=== PATIENT | male | born 1955 | race Caucasian/White ===

== ENCOUNTER 2016-05-04 00:40 | Emergency (ER) | payer MEDICAID ==
--- NOTE | 2016-05-04 01:42 | ED ---
demian Murphy Timothy, scribed for Prasanna Sharma MD on 05/04/16 at 0050 . GI/ HPI - HPI Summary HPI Summary: Franklyn Shafer is a 60 yo male presenting to [facility] with blood in his urine and 9/ 10 pain in his bladder radiating through his abdomen for the past 3 days. He was BIBA from [facility]. He states that his suprapubic region has become "hard" and painful. He states he has a Hx of bad UTI's, but claims that this time there is no burning feeling. His MHx includes kidney failure, venous insufficiency, depression, left kidney stone, hypoglycemia, toe amputations, obesity, pacemaker, hypercarbic respiratory failure, PE. - History of Current Complaint Time Seen by Provider: 05/04/16 00:42 Stated Complaint: ABD PAIN Hx Obtained From: Patient Onset/Duration: Started Days Ago Timing: Constant, Lasting Days Severity: Moderate Current Severity: Moderate Pain Intensity: 9 Location of Pain: Suprapubic Associated Signs and Symptoms: Positive: Hematuria, Abdominal Pain - Additional Pertinent History Primary Care Physician: BERNADETTE - Allergy/Home Medications Allergies/Adverse Reactions: Allergies Allergy/AdvReac Type Severity Reaction Status Date / Time Apple Allergy Unknown Unknown Verified 12/30/15 09:43 Reaction Details Bee Venom Allergy Unknown Verified 01/01/16 12:20 Reaction Details Black [place] Flavor Allergy Unknown Verified 01/01/16 12:20 Reaction Details Sulfa Antibiotics Allergy Rash Verified 12/30/15 09:43 Vancomycin Allergy Pain Verified 12/30/15 09:43 walnut Allergy Unknown Unknown Uncoded 12/30/15 09:43 Reaction Details bee sting Allergy Unknown Uncoded 12/30/15 09:43 Reaction Details Home Medications: Home Medications Ranitidine HCl 150 mg PO BID 05/04/16 [History Confirmed 05/04/16] PMH/Surg Hx/FS Hx/Imm Hx Endocrine/Hematology History: Reports: Hx Anticoagulant Therapy - xarelto, Hx Anemia Denies: Hx Diabetes - hypoglycemic, Hx Systemic Lupus Erythematosus Cardiovascular History: Reports: Hx Congestive Heart Failure - diastolic, Hx Coronary Artery Disease, Hx Deep Vein Thrombosis, Hx Embolism - pulmonary embolism, takes xarelto, Hx Hypercholesterolemia, Hx Hypertension, Hx Pacemaker/ ICD, Hx Peripheral Vascular Disease - SSS, Hx Syncope, Other Cardiovascular Problems/Disorders - cardiac cath Respiratory History: Reports: Hx Chronic Obstructive Pulmonary Disease (COPD), Hx Pneumonia, Hx Pulmonary Embolism, Hx Sleep Apnea, Other Respiratory Problems/ Disorders - SLEEP APNEA, ON 2 L O2 @ NIGHT, obesity hypoventilation GI History: Reports: Other GI Disorders - umbilical hernia, stool softener at home, constipation History: Reports: Hx Acute Renal Failure, Hx Kidney Stones, Hx Renal Disease - 3 episodes of renal failure Denies: Hx Dialysis Musculoskeletal History: Reports: Hx Arthritis, Hx Back Problems, Other Musculoskeletal History - bilateral metatarsal amputation Denies: Hx Rheumatoid Arthritis Sensory History: Reports: Hx Contacts or Glasses - [place] [facility] [place] Other Sensory Impairments - Neuropathy in feet Denies: Hx Hearing Aid Opthamlomology History: Reports: Hx Contacts or Glasses - [place] [facility] [place] Other Sensory Impairments - Neuropathy in feet Neurological History: Reports: Hx Headaches, Other Neuro Impairments/Disorders - frequent syncope, pt states possible stroke in past Psychiatric History: Reports: Hx Depression Denies: Hx of Violent Episodes Against Others - Cancer History Hx Chemotherapy: No - Surgical History Surgery Procedure, Year, and Place: Bilateral metatarsal amputations Hx Anesthesia Reactions: No - Immunization History Date of Tetanus Vaccine: PT STATES UNSURE Date of Influenza Vaccine: NONE Infectious Disease History: No Infectious Disease History: Reports: Hx of Known/Suspected MRSA Denies: Traveled Outside the [place] in Last 30 Days - Family History Known Family History: Positive: Diabetes Negative: Other - denies FHx of depression - Social History Alcohol Use: None Substance Use Type: Reports: None Substance Use Comment - Amount & Last Used: chronic narcotic use Hx Tobacco Use: No Smoking Status (MU): Never Smoked Tobacco Have You Smoked in the Last Year: No Review of Systems Constitutional: Negative Eyes: Negative ENT: Negative Cardiovascular: Negative Respiratory: Negative Positive: Abdominal Pain Positive: hematuria. Negative: burning Musculoskeletal: Negative Skin: Negative Neurological: Negative Psychological: Normal All Other Systems Reviewed And Are Negative: Yes Physical Exam Triage Information Reviewed: Yes Vital Signs On Initial Exam: Initial Vitals Temp Pulse Resp BP Pulse Ox 98.4 F 61 20 117/64 96 05/04/16 00:42 05/04/16 00:42 05/04/16 00:42 05/04/16 00:42 05/04/16 00:42 Vital Signs Reviewed: Yes Appearance: Positive: Ill-Appearing, Obese - supra morbid Skin: Positive: Warm Head/Face: Positive: Normal Head/Face Inspection Eyes: Positive: ELENA ENT: Positive: Hearing grossly normal Respiratory/Lung Sounds: Positive: Breath Sounds Present Cardiovascular: Positive: RRR Abdomen Description: Positive: Other: - massively obese, difficult to assess Bowel Sounds: Positive: Present Neurological: Positive: Alert, Oriented to Person Place, Time Diagnostics - Vital Signs Vital Signs Temp Pulse Resp BP Pulse Ox 05/04/16 00:42 98.4 F 61 20 117/64 96 - Laboratory Result Diagrams: 05/04/16 01:35 05/04/16 01:35 Lab Statement: Any lab studies that have been ordered have been reviewed, and results considered in the medical decision making process. - CT A/P CT Interpretation: Positive (See Comments) - Evaluation is limited due to photon starvation from paiteny body habitus. Nonspecific hepatosplenomegaly. Cholelithiasis with calcified gallstonees seen within the gallbladder neck. If there is concern for cholecystitis, recommend follow up with ultrasound as clinically indicated. No intra or extrahepatic ductal dilation. Diffuse atrophy of the pancreas with fatty replacement. Evaluation for mild pancreatitis is limited due to aforementioned study limitations. No definitive evidence of peripancreatic fluid collection. Punctate hyperdense focus seen in the pancreatic tail region (axial series there is 20 which may be artifactual or reflect pancreatic calcification). Nephrolithiasis. There is a 11.4 mm calculus in the proximal left ureter with assocated mild tomoderate hydronephrosis. Punctate right renal calculi. No right renal calculus. No evidence of bowel obstruction or pneumoperitoneum. Diverticulosis. Underdistension of versus wall thickening of mild to distal sigmoid colon. Correlate clinically to exclude diverticulitis/mild colitis. Normal appendix. No abscess. Fat-containing umbilical hernia. No large inguinal hernia. No ascites. Arthosis of the spine, bilateral sacroiliac chest and bilateral hips. Urinary bladder is decompressed limiting assessment. CT Interpretation Completed By: Radiologist Re-Evaluation - Re-Evaluation First Eval Re-Evaluation Time: 02:17 Change: Unchanged Comment: Discussed results with Pt. Second Eval Re-Evaluation Time: 06:13 Comment: d/w dr ovalle felt pt too high risk for surgery here, call to [facility] on diversion, d/w tiffanie Dr Villafana who will accept pt GIGU Course/Dx - Course Assessment/Plan: Franklyn Shafer is a 60 yo obese male presenting to [facility] with 9/ 10 abd pain and hematuria. After CT scan (see documentation) and review of lab work, as well as discussion with Dr. Ovalle and Dr. Izaguirre, he will be transferred to [facility] for further evaluation and treatment. - Diagnoses Provider Diagnoses: Calculus of left kidney - Physician Notifications Discussed Care Of Patient With: 0557 - Dr. Ovalle (Urology) - Discussed Pt condition, recommends transfer to higher level of care facility as Pt is high risk due to his weight. 06 - Dr. Izaguirre (urology) - Discussed Pt condition given his weight, will call back. 06 - Dr. Uribe (hospitalist) - Discussed Pt condition and weight, will admit Pt. Instructed by Provider To: Transfer - Critical Care Time Critical Care Time: 30-74 min Discharge - Discharge Plan Condition: Fair Disposition: TRANS HIGHER L OF CARE FAC Discharge Disposition Comment: Pt is high risk due to his weight, [place] is closest available facility Referrals: Kwabena Morrison [Primary Care Provider] - The documentation as recorded by the demian parham Timothy accurately reflects the service I personally performed and the decisions made by me, Prasanna Sharma MD.
[2016-05-04 01:49] LABS: Hematocrit 39 % (42-52); Hemoglobin 12.3 g/dl (14.0-18.0); Mean Corpuscular HGB Conc 32 g/dl (31-36); Mean Corpuscular Hemoglobin 26 pg (27-31); Mean Corpuscular Volume 83 fL (80-94); Mean Platelet Volume 10 um3 (7.4-10.4); Red Blood Count 4.72 10^6/ul (4.0-5.4); Red Cell Distribution Width 17 % (10.5-15); White Blood Count 7.2 10^3/ul (3.5-10.8)
[2016-05-04] MEDS ORDERED: Ketorolac INJ* 30 MG/ML 1 ML VIAL IV PUSH ONE (01:55)
[2016-05-04 01:58] LABS: Urine Bacteria Absent (Absent); Urine Bilirubin Negative (Negative); Urine Glucose Negative (Negative); Urine Nitrite Negative (Negative)
[2016-05-04 02:11] LABS: Albumin 3.6 g/dL (3.2-5.2); BUN/Creatinine Ratio 35.2 (8-20); Calcium 9.9 mg/dL (8.6-10.3); EGFR African American 77.9 (>60); EGFR Non-African American 60.6 (>60); Globulin 4.5 g/dL (2-4); Potassium 3.1 mmol/L (3.5-5.0); Total Bilirubin 0.9 mg/dL (0.2-1.0); Total Protein 8.1 g/dL (6.4-8.9)
[2016-05-04] MEDS: Ketorolac INJ* 30 MG/ML 1 ML VIAL IV PUSH ONE ×2 (02:15→02:18)
[2016-05-04] MEDS ORDERED: Potassium Chloride LIQUID* 20 MEQ PACKET PO ONE ×2 (02:16)
[2016-05-04] MEDS ORDERED: HYDROmorphone INJ* 1 MG/ML CARPUJECT SYRINGE IV SLOW PU ONE ×4 (03:26→05:53)
[2016-05-04] MEDS ORDERED: Iohexol 300* (CONTRAST) 10 ML SDV IV ONE ×2 (04:30)
[2016-05-04] MEDS ORDERED: oxyCODONE/Acetamin 5/325 MG* TAB PO ONE ×3 (07:28→13:42)
[2016-05-04] MEDS ORDERED: NS 0.9% 1000 ML* 1,000 ML IV ONE (08:20)
--- NOTE | 2016-05-04 08:22 | RAD ---
CLINICAL HISTORY: Abdominal pain and hematuria COMPARISON: Similar CT examination dated November 03, 2014 TECHNIQUE: Contrast enhanced CT examination of the abdomen and pelvis from the lung bases through the initial tuberosities. The patient received 150 mL Omnipaque 300 intravenously prior to imaging.The patient received oral contrast as well prior to imaging. FINDINGS: Evaluation is limited due to the patient's morbid obesity. The abdomen is in contact with the gantry which creates streak artifact along the periphery obscuring evaluation of much of the subcutaneous tissue and the most superficial portions of the lateral abdominal bob. VISUALIZED LUNG BASES: The visualized lung bases are grossly clear. There is no pleural effusion. ABDOMEN AND PELVIS: Similar to previous CT examinations the liver is homogenously hypodense relative to the spleen. There are no suspicious masses or surface irregularity. The homogenously attenuating spleen is enlarged measuring just under 17 cm in greatest axial dimension, slightly increased when compared to the November 03, 2014 CT examination. The pancreas and adrenal glands are grossly normal in appearance. The gallbladder is normal. The right kidney is in appearance without focal mass, calcification or signs of hydronephrosis. At the left ureteropelvic junction there is a calcification measuring 14 mm and greatest cephalocaudal projection in the coronal plane. There is a lower pole collecting system calcification measuring 11 mm in greatest dimension. No calcification identified more distally in either ureter or in the urinary bladder. The oral contrast has progressed as far as the midportion of the small bowel. This limits evaluation of the more distal small bowel and colon. The small and large bowel are not distended. The patient's normal appendix is identified in the right lower quadrant (coronal image 71). Scattered rectosigmoid diverticula are seen but none exhibit acute inflammatory change. There is no gross retroperitoneal or mesenteric lymphadenopathy. The pelvic viscera is normal in appearance. The mildly calcified abdominal aorta and iliac arteries are normal in course and diameter. Degenerative changes include multilevel loss of intervertebral disc height involving the lower thoracic and lumbar spine.There are no sinister bone lesions. IMPRESSION: 1. There is a 14 mm calcification at the left ureteropelvic junction with mild ipsilateral hydronephrosis in addition to an 11 mm calcification at the left lower pole collecting system. 2. CT findings are consistent with hepatic steatosis. 3. Interval worsening of splenomegaly. 4. Additional chronic and degenerative findings as described in the body of the report.
[2016-05-04] MEDS ORDERED: Ciprofloxacin 400MG IVPREMIX(* 400 MG/200 ML BAG IVPB ONE (10:57)
[2016-05-04] MEDS ORDERED: cefTRIAXone(*) 2 GM in NS 0.9% 100 ML* 100 ML IVPB ONE ×4 (10:59)
[2016-05-04 13:08] VITALS: BP 120/66
[2016-05-04] MEDS ORDERED: oxyCODONE/Acetamin 5/325 MG* TAB ONE ×2 (13:44)
--- NOTE | 2016-07-03 07:55 | ED ---
Marcelino Murphy Soohyun, scribed for Krystian Farmer MD on 05/04/16 at 1101 . Progress - Progress Note Progress Note: This 60 y/o male pt has been signed out to me at shift change. Course/Dx - Diagnoses Provider Diagnoses: Calculus of left kidney, OBSTRUCTIVE URTERAL STONE - Provider Notifications Discussed Care Of Patient With: 1053 AM Urologist PA at [facility] -- will discuss with their attending and will get back to us. 1143 AM Urologist attending declined the transfer, stating that if Dr. Ovalle is uncomfortable treating the pt, so are they. The transfer destination was chosen as [facility] as originally planned by Dr. Sharma. Instructed by Provider To: Transfer - [facility] The documentation as recorded by the tyibeMarcelino Soohyun accurately reflects the service I personally performed and the decisions made by me, Krystian Farmer MD.
== END 2016-05-04 13:07 | disposition short-term general hospital (02) ==
LOC: ED 00:40
DX: N20.0 Calculus of kidney (principal); R31.9 Hematuria, unspecified
CPT/HCPCS: 36415; 74177; 80053; 81003; 81015; 85025; 87086; 93005; 99283; A9270-GY; J0696; J1170; J1885; Q9967

== ENCOUNTER 2016-05-30 08:57 | Inpatient (IN) | payer MEDICAID ==
--- NOTE | 2016-05-30 10:28 | RAD ---
Indication: Shortness of breath. Single frontal view of the chest performed at 0935 hours was reviewed. Comparison is made with previous exam dated March 02, 2016. Cardiomegaly is noted. Interstitial edema consistent with CHF is noted. Pacemaker leads are in place. IMPRESSION: CARDIOMEGALY WITH INTERSTITIAL EDEMA CONSISTENT WITH CHF.
[2016-05-30 10:48] LABS: Hematocrit 35 % (42-52); Hemoglobin 11.1 g/dl (14.0-18.0); Mean Corpuscular HGB Conc 32 g/dl (31-36); Mean Corpuscular Hemoglobin 27 pg (27-31); Mean Corpuscular Volume 85 fL (80-94); Mean Platelet Volume 10 um3 (7.4-10.4); Red Blood Count 4.07 10^6/ul (4.0-5.4); Red Cell Distribution Width 19 % (10.5-15); White Blood Count 16.5 10^3/ul (3.5-10.8)
[2016-05-30 11:03] LABS: Albumin 3.4 g/dL (3.2-5.2); BUN/Creatinine Ratio 43.4 (8-20); C Reactive Protein 240.42 mg/L (< 5.00); Calcium 9.8 mg/dL (8.6-10.3); EGFR African American 64.9 (>60); EGFR Non-African American 50.4 (>60); Globulin 4.6 g/dL (2-4); Potassium 3.5 mmol/L (3.5-5.0); Total Bilirubin 1.4 mg/dL (0.2-1.0)
[2016-05-30 11:16] LABS: Troponin I 0.05 ng/mL (<0.04)
[2016-05-30] MEDS ORDERED: ceFAZolin 1 GM in Dextrose (*) 1 GM/50 ML BAG IVPB ONE (11:30)
[2016-05-30 12:24] LABS: Urine Bacteria Absent (Absent); Urine Bilirubin Negative (Negative); Urine Glucose Negative (Negative); Urine Nitrite Negative (Negative)
--- NOTE | 2016-05-30 13:03 | HP ---
H&P (Free Text) History and Physical: History and Physical Date:05/30/2016 HPI: 60y M w/pmhx Obesity hypoventilation syndrome, Atrial flutter on Xarelto, Diastolic LV dysfunction, CAD, PVD s/p bilateral metatarsal amputation, h/o PE, HTN, s/p PM/AICD, COPD, JAIDEN, chronic home O2 2L; patient was in rehab and sent over for hypoxia, noted to have oxygen saturations in the 70s today. He is lethargic but arousable and gives history but keeps falling asleep. He is in no resp distress, on facemask now. He reports fever today at [facility] rehab of 102F. He reports rash around groin/inner thigh for 2 days now and painful. He denies cp/n/v/headache/diarrhea/constip. He reports LE bilateral legs have wounds which are chronic for years and years. He is chronically sob, uses bipap at night and even during the day when feeling tired/lethargic. Chronic intermittent edema requiring diuretics. No headache/dizziness/syncope. No dysuria/frequency. Fevers+, chills+. No fatigue. In ER, he is on 6L Facemask, sats 87-94%, dropping when asleep, HR 100-110 sinus tachy with ectopy noted, BP 120s systolic, RR 18-21. ROS: All review of systems are negative except for positives mentioned above. PMHx: Obesity hypoventilation syndrome, Atrial Flutter, LV diastolic dysfunction, CAD, PVD, s/p bilateral metatarsal amputations, h/p PE, s/p PM/AICD , COPD, JAIDEN on bipap, Chronic hypoxia on 2L NC PSHx: bilateral metatarsal amputations Family History: Diabetes Social History: denies alcohol use, smoking. History of chronic narcotic use. Lives in a long-term otherwise. Allergies: Allergies Allergy/AdvReac Type Severity Reaction Status Date / Time Apple Allergy Unknown Unknown Verified 12/30/15 09:43 Reaction Details Bee Venom Allergy Unknown Verified 01/01/16 12:20 Reaction Details Black [place] Flavor Allergy Unknown Verified 01/01/16 12:20 Reaction Details Sulfa Antibiotics Allergy Rash Verified 12/30/15 09:43 Vancomycin Allergy Pain Verified 12/30/15 09:43 walnut Allergy Unknown Unknown Uncoded 10/17/16 09:43 Reaction Details bee sting Allergy Unknown Uncoded 12/30/15 09:43 Reaction Details Home Medications: Sennosides-Docusate Sodium [Senokot S 8.6-50 mg] 2 tab PO BID 04/05/15 [History Confirmed 05/30/16] Bisacodyl EC TAB* [Dulcolax EC TAB*] 5 mg PO DAILY 12/03/15 [History Confirmed 05/30/16] Budesonide/Formote 160/4.5(NF) [Symbicort 160/4.5 (NF)] 2 puff INH BID 12/03/15 [History Confirmed 05/30/16] Morphine Sulfate [Morphine Sulfate ER] 15 mg PO Q12HR MDD 30 mg 12/03/15 [ History Confirmed 05/30/16] Acetaminophen [Acetaminophen Extra Stren] 1,000 mg PO BID PRN 12/30/15 [History Confirmed 05/30/16] Isosorbide Mononitrate ER TAB* [Imdur ER TAB*] 30 mg PO DAILY 12/30/15 [History Confirmed 05/30/16] Losartan TAB* [Cozaar TAB*] 25 mg PO DAILY 12/30/15 [History Confirmed 05/30/16] Rivaroxaban TAB(*) [Xarelto 20 mg] 20 mg PO DAILY 12/30/15 [History Confirmed ] Metoprolol Tartrate TAB* [Lopressor TAB*] 25 mg PO DAILY #30 tab 01/08/16 [Rx Confirmed 05/30/16] Pregabalin CAP(*) [Lyrica CAP(*)] 100 mg PO TID 03/02/16 [History Confirmed ] Psyllium JUANJO* [Metamucil JUANJO*] 1 pkt PO DAILY 03/02/16 [History Confirmed ] Metolazone TAB* [Zaroxolyn TAB*] 2.5 mg PO 1630 #0 03/04/16 [Rx Confirmed 05/30] Tobramycin 0.3% OPHTH.MARIAJOSE* 1 drop BOTH EYES Q4H btl 03/04/16 [Rx Confirmed ] Torsemide TAB* [Demadex 20 MG*] 40 mg PO 0900,1700 tab 03/04/16 [Rx Confirmed 05/30/16] Ranitidine HCl 150 mg PO BID 05/04/16 [History Confirmed 05/30/16] Aspirin [Aspirin 81 MG TAB] 81 mg PO DAILY 05/30/16 [History Confirmed 05/30/16] Nitroglycerin TAB 0.4 MG* 0.4 mg SL Q5M PRN 05/30/16 [History Confirmed 05/30/16 ] Oxybutynin TAB* [Ditropan TAB*] 5 mg PO TID 05/30/16 [History Confirmed 05/30/16 ] Oxycodone TAB(NF) [Oxycodone HCl 10 MG] 10 mg PO Q4H PRN 05/30/16 [History Confirmed 05/30/16] Potassium Chlor TAB* [Klor Con ER TAB 10 MEQ*] 20 meq PO DAILY 05/30/16 [ History Confirmed 05/30/16] Tamsulosin CAP* [Flomax CAP*] 0.4 mg PO 1700 05/30/16 [History Confirmed ] Vitals: Vital Signs: Temp Pulse Resp BP Pulse Ox 99.3 F 100 21 120/49 90 05/30/16 08:58 05/30/16 12:00 05/30/16 12:00 05/30/16 10:00 05/30/16 12:00 Tele - sinus tachy with ectopy noted O2/Vent: Facemask 6L, O2 sats 87-94%; rr 18 Infusions: none Physical Exam: General: lethargic appearing, obese, no resp distress, awakens and answers appropriately but falls asleep Head: normocephalic, atraumatic HEENT: no pallor, no icterus, moist mucous membranes Neck: no stridor, no jvd CVS: tachycardic, normal rhythm, no murmur Resp: bilateral air entry but dec bs overall, no wheeze, +/- distant mild crackles, no rhonchi, no acc muscle use. Abdomen: soft, nondistended, nontender, obese. Ext: pulses+, warm; bilateral LE are wrapped in dressings; noted metatarsal amputations with clean sites/intact. Skin: LE bilateral feet in dressings (to re-eval once opened); inner thigh/ lower groins have erythema/tenderness without drainage/vesicles/bullae or broken skin. mild induration noted. Neuro: lethargic but awakens and follows commands and answers all questions, moves all ext grossly. Labs: Laboratory Results - last 24 hr 05/30/16 05/30/16 05/30/16 10:17 10:17 10:17 WBC 16.5 H RBC 4.07 Hgb 11.1 L Hct 35 L MCV 85 MCH 27 MCHC 32 RDW 19 H Plt Count 146 L MPV 10 Neut % (Auto) 90.2 H Lymph % (Auto) 3.4 L Lynn % (Auto) 6.1 Eos % (Auto) 0 Baso % (Auto) 0.3 Absolute Neuts (auto) 14.9 H Absolute Lymphs (auto) 0.6 L Absolute Monos (auto) 1.0 H Absolute Eos (auto) 0 Absolute Basos (auto) 0 Absolute Nucleated RBC 0.03 Nucleated RBC % 0.2 INR (Anticoag Therapy) 1.30 H Sodium 135 Potassium 3.5 Chloride 85 L Carbon Dioxide 41 H* Anion Gap 9 BUN 62 H Creatinine 1.43 H Est GFR ( Amer) 64.9 Est GFR (Non-Af Amer) 50.4 BUN/Creatinine Ratio 43.4 H Glucose 173 H Lactic Acid Calcium 9.8 Total Bilirubin 1.40 H AST 15 ALT 7 Alkaline Phosphatase 30 L Troponin I 0.05 H* C-Reactive Protein 240.42 H B-Natriuretic Peptide Total Protein 8.0 Albumin 3.4 Globulin 4.6 H Albumin/Globulin Ratio 0.7 L Urine Color Urine Appearance Urine pH Ur Specific [place] Urine Protein Urine Ketones Urine Blood Urine Nitrate Urine Bilirubin Urine Urobilinogen Ur Leukocyte Esterase Urine WBC (Auto) Urine RBC (Auto) Ur Squamous Epith Cells Urine Bacteria Hyaline Casts Urine Glucose 05/30/16 05/30/16 05/30/16 10:17 10:17 12:00 WBC RBC Hgb Hct MCV MCH MCHC RDW Plt Count MPV Neut % (Auto) Lymph % (Auto) Lynn % (Auto) Eos % (Auto) Baso % (Auto) Absolute Neuts (auto) Absolute Lymphs (auto) Absolute Monos (auto) Absolute Eos (auto) Absolute Basos (auto) Absolute Nucleated RBC Nucleated RBC % INR (Anticoag Therapy) Sodium Potassium Chloride Carbon Dioxide Anion Gap BUN Creatinine Est GFR ( Amer) Est GFR (Non-Af Amer) BUN/Creatinine Ratio Glucose Lactic Acid 1.2 Calcium Total Bilirubin AST ALT Alkaline Phosphatase Troponin I C-Reactive Protein B-Natriuretic Peptide 182 H Total Protein Albumin Globulin Albumin/Globulin Ratio Urine Color Yellow Urine Appearance Cloudy Urine pH 5.0 Ur Specific [place] 1.011 Urine Protein Negative Urine Ketones Negative Urine Blood 3+ H Urine Nitrate Negative Urine Bilirubin Negative Urine Urobilinogen Negative Ur Leukocyte Esterase 3+ H Urine WBC (Auto) 3+(>20/hpf) H Urine RBC (Auto) 3+(>10/hpf) H Ur Squamous Epith Cells Present H Urine Bacteria Absent Hyaline Casts Present H Urine Glucose Negative Imaging: cxr 05/30 - obese, bilateral hilar and pulm congestion more pronounced on the right compared to prior and the left shows much more congestion but +/- infiltrate Assessment: 60y M w/pmhx Obesity hypoventilation syndrome, Atrial flutter on Xarelto, Diastolic LV dysfunction, CAD, PVD s/p bilateral metatarsal amputation , h/o PE, HTN, s/p PM/AICD, COPD, JAIDEN, chronic home O2 2L, CKD 2/3; brought in from rehab for acute hypoxia and fevers; found to be lethargic, hypoxic, with new cellulitus on inner thighs. -Acute on Chronic Hypoxic respiratory failure -Chronic Hypercapnea, compensated -Bilateral thigh/groin cellulitus -Likely pulmonary congestion -Acute decompensated LV diastolic heart failure -Severe Sepsis -CKD -morbid obesity -obesity hypoventilation syndrome -Atrial Flutter Plan: Neuro- lethargic, abg now to assess for hypercapnea. neuro checks q4h, fall prec , asp prec. CVS-not hypotensive. wbc elevated, tachycardic. Appears to have pulm congestion. WIll hold on IVF for now. Diurese with IV lasix for now. cont lopressor po 25mg bid. cont rivaroxaban po for atrial flutter. cont losartan. CXR in AM. Goal negative fluid balance. Lactic acid 1.2, trend x2 more times. Resp-due to fluctuating mental status, obesity hypoventilation, chronic hypercapnea and patients use of bipap at rehab/home all the time will start acute NIV now for resp support for acute hypoxia. ABG pending now to assess ventilation status. CXR reviewed, repeat CXR tomorrow. Diuretics IV. CT chest done and no overt infiltrate seen, interstitial edema+. will send flu swab. ID-WBC elevated, tachycardic, febrile (102?) but 99.3 here. Given cefazolin IV by ED. CT chest without clear infiltrate/consolidation. Definite cellulitus, may be bacterial versus fungal also. nystatin topical. Will need gram pos coverage, blood cultures. Reassess LE wounds once in ICU and nurses opens bandages. May likely start Zosyn IV to cover. Allergy to Vanco? GI-npo on bipap. GI prophylaxis with pepcid. Renal-baseline CKD 2/3. monitor i/o. diuretics for pulm congestion. monitor electrolytes, replete as needed. K 3.5 on chem panel. replete with 40meq K now. Heme-baseline anemia. cont rivaroxaban po for atrial flutter. Endo-fingersticks as needed. Musculsk-none Wounds-IV abx, wound care. topical nystatin for possible candidal infection. Nutrition-npo on bipap. cardiac diet when off bipap. DVT prophylaxis: no SCDs due to LE wounds; cont rivaroxaban PO GI prophylaxis:pepcid po Central Line:no Arterial Line:no Chris Cathetor:no Smoking cessation not required. Disposition: admit to ICU for hypoxic resp failure, diastolic heart failure, sepsis from cellulitus. Code Status: full code Total Critical Care time is 60 minutes, excluding procedures/teaching Edgardo Hercules MD [place] (Electronically Signed)
--- NOTE | 2016-05-30 13:39 | ED ---
Kam Murphy Michael, scribed for Dannie Mcclain MD on 05/30/16 at 0947 . Shortness of Breath - HPI Summary HPI Summary: 60 y/o male comes to the ED presenting with SOB that worsened this morning and has been present for the last couple of months. The pt reports that he feels SOB at the end of sentences. He also c/o a fever that he presented at [facility] and a rash on the bilater LE. At the ED, the pt presents with a temperature of 99.3. He also states that the rash on his bilateral groins is painful, and the onset of 2 days ago. He denies cough and CP. The PMHx is significant for a calculus of the kidney when he visited the ED at 05/04/16. erythema bilateral groains extending out to right thigh obese - History of Current Complaint Chief Complaint: EDRespiratoryDistress Time Seen by Provider: 05/30/16 09:09 Hx Obtained From: Patient, EMS, Medical Records Onset/Duration: Gradual Onset, Still Present, Worse Since - this morning Timing: Constant Current Severity: Moderate Dyspnea At: Rest Aggrevating Factors: Deep Breaths Alleviating Factors: Nothing Associated Signs & Symptoms: Negative - cough and CP, Fever - and rash. - Allergy/Home Medications Allergies/Adverse Reactions: Allergies Allergy/AdvReac Type Severity Reaction Status Date / Time Apple Allergy Unknown Unknown Verified 12/30/15 09:43 Reaction Details Bee Venom Allergy Unknown Verified 01/01/16 12:20 Reaction Details [place] Flavor Allergy Unknown Verified 01/01/16 12:20 Reaction Details Sulfa Antibiotics Allergy Rash Verified 12/30/15 09:43 Vancomycin Allergy Pain Verified 12/30/15 09:43 walnut Allergy Unknown Unknown Uncoded 12/30/15 09:43 Reaction Details bee sting Allergy Unknown Uncoded 12/30/15 09:43 Reaction Details PMH/Surg Hx/FS Hx/Imm Hx Endocrine/Hematology History: Reports: Hx Anticoagulant Therapy - xarelto, Hx Anemia Denies: Hx Diabetes - hypoglycemic, Hx Systemic Lupus Erythematosus Cardiovascular History: Reports: Hx Congestive Heart Failure - diastolic, Hx Coronary Artery Disease, Hx Deep Vein Thrombosis, Hx Embolism - pulmonary embolism, takes xarelto, Hx Hypercholesterolemia, Hx Hypertension, Hx Pacemaker/ ICD, Hx Peripheral Vascular Disease - SSS, Hx Syncope, Other Cardiovascular Problems/Disorders - cardiac cath Respiratory History: Reports: Hx Chronic Obstructive Pulmonary Disease (COPD), Hx Pneumonia, Hx Pulmonary Embolism, Hx Sleep Apnea, Other Respiratory Problems/ Disorders - SLEEP APNEA, ON 2 L O2 @ NIGHT, obesity hypoventilation GI History: Reports: Other GI Disorders - umbilical hernia, stool softener at home, constipation History: Reports: Hx Acute Renal Failure, Hx Kidney Stones, Hx Renal Disease - 3 episodes of renal failure Denies: Hx Dialysis Musculoskeletal History: Reports: Hx Arthritis, Hx Back Problems, Other Musculoskeletal History - bilateral metatarsal amputation Denies: Hx Rheumatoid Arthritis Sensory History: Reports: Hx Contacts or Glasses - [place] [facility] [place] Other Sensory Impairments - Neuropathy in feet Denies: Hx Hearing Aid Opthamlomology History: Reports: Hx Contacts or Glasses - [place] [facility] [place] Other Sensory Impairments - Neuropathy in feet Neurological History: Reports: Hx Headaches, Other Neuro Impairments/Disorders - frequent syncope, pt states possible stroke in past Psychiatric History: Reports: Hx Depression Denies: Hx of Violent Episodes Against Others - Cancer History Hx Chemotherapy: No - Surgical History Surgery Procedure, Year, and Place: Bilateral metatarsal amputations Hx Anesthesia Reactions: No - Immunization History Date of Tetanus Vaccine: PT STATES UNSURE Date of Influenza Vaccine: NONE Infectious Disease History: Yes Infectious Disease History: Reports: Hx of Known/Suspected MRSA Denies: Traveled Outside the [place] in Last 30 Days - Family History Known Family History: Positive: Diabetes Negative: Other - denies FHx of depression - Social History Occupation: Disabled Lives: At [facility] Alcohol Use: None Substance Use Type: Reports: None Substance Use Comment - Amount & Last Used: chronic narcotic use Hx Tobacco Use: No Smoking Status (MU): Never Smoked Tobacco Have You Smoked in the Last Year: No Review of Systems Negative: Fever Negative: Chest Pain Positive: Shortness Of Breath. Negative: Cough Positive: Rash All Other Systems Reviewed And Are Negative: Yes Physical Exam Triage Information Reviewed: Yes Vital Signs On Initial Exam: Initial Vitals Temp Pulse Resp BP Pulse Ox 99.3 F 110 20 126/61 93 05/30/16 08:58 05/30/16 08:58 05/30/16 08:58 05/30/16 08:58 05/30/16 08:58 Vital Signs Reviewed: Yes Appearance: Positive: Well-Appearing, No Pain Distress, Obese Skin: Positive: Warm, Skin Color Reflects Adequate Perfusion, Dry, Other - erythema of bilateral groan with spreading to the right thigh Head/Face: Positive: Normal Head/Face Inspection Eyes: Positive: Normal ENT: Positive: Normal ENT inspection Neck: Positive: Supple, Nontender Respiratory/Lung Sounds: Positive: Other - unable to hear breath sounds. difficulty completing full sentences. Cardiovascular: Positive: Tachycardia Abdomen Description: Positive: Nontender, Soft Bowel Sounds: Positive: Present Musculoskeletal: Positive: Normal Neurological: Positive: Normal Psychiatric: Positive: Affect/Mood Appropriate Diagnostics - Vital Signs Vital Signs Temp Pulse Resp BP Pulse Ox 05/30/16 08:58 99.3 F 110 20 126/61 93 - Laboratory Lab Results: Lab Results 05/30/16 05/30/16 05/30/16 Range/Units 10:17 10:17 10:17 WBC 16.5 H (3.5-10.8) 10^3/ul RBC 4.07 (4.0-5.4) 10^6/ul Hgb 11.1 L (14.0-18.0) g/dl Hct 35 L (42-52) % MCV 85 (80-94) fL MCH 27 (27-31) pg MCHC 32 (31-36) g/dl RDW 19 H (10.5-15) % Plt Count 146 L (150-450) 10^3/ul MPV 10 (7.4-10.4) um3 Neut % (Auto) 90.2 H (38-83) % Lymph % (Auto) 3.4 L (25-47) % Mathews % (Auto) 6.1 (1-9) % Eos % (Auto) 0 (0-6) % Baso % (Auto) 0.3 (0-2) % Absolute Neuts (auto) 14.9 H (1.5-7.7) 10^3/ul Absolute Lymphs (auto) 0.6 L (1.0-4.8) 10^3/ul Absolute Monos (auto) 1.0 H (0-0.8) 10^3/ul Absolute Eos (auto) 0 (0-0.6) 10^3/ul Absolute Basos (auto) 0 (0-0.2) 10^3/ul Absolute Nucleated RBC 0.03 10^3/ul Nucleated RBC % 0.2 INR (Anticoag Therapy) 1.30 H (0.89-1.11) Sodium 135 (133-145) mmol/L Potassium 3.5 (3.5-5.0) mmol/L Chloride 85 L (101-111) mmol/L Carbon Dioxide 41 H* (22-32) mmol/L Anion Gap 9 (2-11) mmol/L BUN 62 H (6-24) mg/dL Creatinine 1.43 H (0.67-1.17) mg/dL Est GFR ( Amer) 64.9 (>60) Est GFR (Non-Af Amer) 50.4 (>60) BUN/Creatinine Ratio 43.4 H (8-20) Glucose 173 H (70-100) mg/dL Lactic Acid (0.5-2.0) mmol/L Calcium 9.8 (8.6-10.3) mg/dL Total Bilirubin 1.40 H (0.2-1.0) mg/dL AST 15 (13-39) U/L ALT 7 (7-52) U/L Alkaline Phosphatase 30 L (34-104) U/L Troponin I 0.05 H* (<0.04) ng/mL C-Reactive Protein 240.42 H (< 5.00) mg/L B-Natriuretic Peptide ( - 100) pg/mL Total Protein 8.0 (6.4-8.9) g/dL Albumin 3.4 (3.2-5.2) g/dL Globulin 4.6 H (2-4) g/dL Albumin/Globulin Ratio 0.7 L (1-3) Urine Color Urine Appearance Urine pH (5-9) Ur Specific [place] (1.010-1.030) Urine Protein (Negative) Urine Ketones (Negative) Urine Blood (Negative) Urine Nitrate (Negative) Urine Bilirubin (Negative) Urine Urobilinogen (Negative) Ur Leukocyte Esterase (Negative) Urine WBC (Auto) (Absent) Urine RBC (Auto) (Absent) Ur Squamous Epith Cells (Absent) Urine Bacteria (Absent) Hyaline Casts (Absent) Urine Glucose (Negative) 05/30/16 05/30/16 05/30/16 Range/Units 10:17 10:17 12:00 WBC (3.5-10.8) 10^3/ul RBC (4.0-5.4) 10^6/ul Hgb (14.0-18.0) g/dl Hct (42-52) % MCV (80-94) fL MCH (27-31) pg MCHC (31-36) g/dl RDW (10.5-15) % Plt Count (150-450) 10^3/ul MPV (7.4-10.4) um3 Neut % (Auto) (38-83) % Lymph % (Auto) (25-47) % Mathews % (Auto) (1-9) % Eos % (Auto) (0-6) % Baso % (Auto) (0-2) % Absolute Neuts (auto) (1.5-7.7) 10^3/ul Absolute Lymphs (auto) (1.0-4.8) 10^3/ul Absolute Monos (auto) (0-0.8) 10^3/ul Absolute Eos (auto) (0-0.6) 10^3/ul Absolute Basos (auto) (0-0.2) 10^3/ul Absolute Nucleated RBC 10^3/ul Nucleated RBC % INR (Anticoag Therapy) (0.89-1.11) Sodium (133-145) mmol/L Potassium (3.5-5.0) mmol/L Chloride (101-111) mmol/L Carbon Dioxide (22-32) mmol/L Anion Gap (2-11) mmol/L BUN (6-24) mg/dL Creatinine (0.67-1.17) mg/dL Est GFR ( Amer) (>60) Est GFR (Non-Af Amer) (>60) BUN/Creatinine Ratio (8-20) Glucose (70-100) mg/dL Lactic Acid 1.2 (0.5-2.0) mmol/L Calcium (8.6-10.3) mg/dL Total Bilirubin (0.2-1.0) mg/dL AST (13-39) U/L ALT (7-52) U/L Alkaline Phosphatase (34-104) U/L Troponin I (<0.04) ng/mL C-Reactive Protein (< 5.00) mg/L B-Natriuretic Peptide 182 H ( - 100) pg/mL Total Protein (6.4-8.9) g/dL Albumin (3.2-5.2) g/dL Globulin (2-4) g/dL Albumin/Globulin Ratio (1-3) Urine Color Yellow Urine Appearance Cloudy Urine pH 5.0 (5-9) Ur Specific [place] 1.011 (1.010-1.030) Urine Protein Negative (Negative) Urine Ketones Negative (Negative) Urine Blood 3+ H (Negative) Urine Nitrate Negative (Negative) Urine Bilirubin Negative (Negative) Urine Urobilinogen Negative (Negative) Ur Leukocyte Esterase 3+ H (Negative) Urine WBC (Auto) 3+(>20/hpf) H (Absent) Urine RBC (Auto) 3+(>10/hpf) H (Absent) Ur Squamous Epith Cells Present H (Absent) Urine Bacteria Absent (Absent) Hyaline Casts Present H (Absent) Urine Glucose Negative (Negative) Result Diagrams: 05/30/16 10:17 05/30/16 10:17 Lab Statement: Any lab studies that have been ordered have been reviewed, and results considered in the medical decision making process. - Radiology CXR Xray Interpretation: Positive (See Comments) - CARDIOMEGALY WITH INTERSTITIAL EDEMA CONSISTENT WITH CHF. Radiology Interpretation Completed By: Radiologist - EKG EK EKG Rhythm: Sinus Tachycardia - 104 bpm EKG Interpretation: non specific changes Course/Dx - Course Course Of Treatment: Discussed patient care with Dr. Guerrero (Hospitalist) at 1028. Again consulted with Dr. Guerrero ([id number]), the patient is admitted and accepted to the hospital. - Diagnoses Provider Diagnoses: Cellulitis, CHF (congestive heart failure) - Critical Care Time Critical Care Time: 30-74 min Discharge - Discharge Plan Condition: Stable Disposition: ADMITTED TO [facility] Discharge Disposition Comment: Accepted as admission by Dr. Guerrero The documentation as recorded by the Kam parham Michael accurately reflects the service I personally performed and the decisions made by me, Dannie Mcclain MD.
--- NOTE | 2016-05-30 13:40 | RAD ---
Indication: Evaluate for pneumonia. CT of the chest was performed without IV contrast. Coronal and sagittal reconstructed images were obtained. Inferior thyroid lobes are unremarkable. Right paratracheal lymph nodes are noted measuring up to 10 mm. No hilar adenopathy is noted. The heart demonstrates no pericardial effusion. Pacemaker leads are in place. The aorta is of normal caliber. Pulmonary artery is markedly enlarged suggestive of pulmonary artery hypertension. The main pulmonary arteries are also enlarged. Atelectasis is noted right upper lobe. Airspace disease with air bronchograms noted adjacent to the left superior hilum. Although this may represent atelectasis or pneumonia in the left upper lobe is not totally excluded. No pleural fluid is identified. Degenerative changes of the thoracic spine is noted. The abdominal organs are grossly unremarkable although evaluation is limited. IMPRESSION: MARKEDLY ENLARGED PULMONARY ARTERIES CONSISTENT WITH PULMONARY ARTERIAL HYPERTENSION. THERE IS SOME AIRSPACE DISEASE IN THE LEFT UPPER LOBE. THIS MAY REPRESENT ATELECTASIS HOWEVER PNEUMONIA IS NOT TOTALLY EXCLUDED.
[2016-05-30 13:43] LABS: FIO2 15
[2016-05-30 13:52] LABS: PCO2 Arterial 84 mmHg (35-45)
[2016-05-30] MEDS ORDERED: Furosemide IV* 10 MG/ML 10 ML VIAL (100 MG) IV ONE (13:54)
[2016-05-30] MEDS ORDERED: Potassium Chlor TAB* 20 MEQ TAB.ER PO ONE (13:54)
[2016-05-30] MEDS ORDERED: Metoprolol Tartrate TAB* 25 MG PO SCH (14:00)
[2016-05-30] MEDS ORDERED: Losartan TAB* 25 MG PO SCH (14:00)
[2016-05-30] MEDS ORDERED: Furosemide IV* 10 MG/ML 2 ML VIAL (20 MG) IV SLOW PU ONE (15:00)
[2016-05-30] MEDS: Piperac/Tazob 3.375 gm in NS* 3.375 GM/100 ML BAG IVPB SCH ×2 (15:27→23:04)
[2016-05-30] MEDS: Pregabalin CAP(*) 100 MG PO SCH ×2 (16:32→23:04)
[2016-05-30] MEDS: Rivaroxaban TAB(*) 20 MG TAB PO SCH (16:32)
[2016-05-30] MEDS: Nystatin TOP POWDER* 15 GM BTL TOPICAL SCH ×2 (16:32→23:04)
[2016-05-30] MEDS: Tamsulosin CAP* 0.4 MG PO SCH (16:36)
[2016-05-30] MEDS ORDERED: oxyCODONE/Acetamin 5/325 MG* TAB PO ONE (16:39)
[2016-05-30] MEDS ORDERED: Acetaminophen TAB* 325 MG PO PRN (16:42)
[2016-05-30] MEDS ORDERED: NS 0.9% 500 ML BAG* 500 ML IV ONE (19:00)
[2016-05-30] MEDS ORDERED: Phenylephrine INJ* 10 MG/ML 1 ML VIAL (10 MG) ONE (20:11)
[2016-05-30] MEDS ORDERED: NS 0.9% 1000 ML* 1,500 ML IV ONE (20:30)
[2016-05-30] MEDS ORDERED: Phenylephrine INJ* 50 MG in NS 0.9% 250 ML* 245 ML IV SCH (21:00)
[2016-05-30] MEDS ORDERED: Nystatin CREAM* 30 GM TOPICAL SCH (21:00)
[2016-05-30] MEDS ORDERED: Furosemide IV* 10 MG/ML 10 ML VIAL (100 MG) IV SCH (21:00)
[2016-05-30 21:11] LABS: EPAP 8; FIO2 50; IPAP 20
[2016-05-30 21:36] LABS: PCO2 Arterial 91 mmHg (35-45)
[2016-05-30] MEDS ORDERED: Norepinephrine 16MCG/ML IVPRE* 4,000 MCG/250 ML BAG IV ONE (22:08)
[2016-05-30] MEDS ORDERED: Propofol* 200 ML ONE (22:19)
[2016-05-30 22:29] LABS: Venous Bicarbonate HCO3 37.6 mmol/L (24-28)
[2016-05-30] MEDS: Succinylcholine* 20 MG/ML 10 ML VIAL ONE ×2 (22:30→23:02)
[2016-05-30 22:41] LABS: Albumin 3.1 g/dL (3.2-5.2); BUN/Creatinine Ratio 35.7 (8-20); Calcium 8.9 mg/dL (8.6-10.3); EGFR African American 49.1 (>60); EGFR Non-African American 38.2 (>60); Globulin 4.3 g/dL (2-4); Total Bilirubin 1.4 mg/dL (0.2-1.0); Total Protein 7.4 g/dL (6.4-8.9)
[2016-05-30 22:48] LABS: Troponin I 0.05 ng/mL (<0.04)
--- NOTE | 2016-05-30 23:07 | PN ---
Progress Note - Progress Note Note: Progress Note Called because patient more hypotensive, ordered NS bolus but still not as dramatic as a response. He was more hypoxic, increased O2 requirements with intermittent drop in sats. He was also becoming more lethargic at times. Urgently came in; patient was arousable but to stimuli. BP in 80s on delta at 100mcg/min; was already given 2.5L NS bolus since 4-5pm. Decision for urgent central line placement in left IJ, successful, see note. Urgent left radial arterial line placed, see note. Started on levophed to increase BP. Patient was more lethargic, not as arousable, but o2 sat 100%, breathing at 18 with TV of 500-600 Due to delirium/unresponsiveness and further hypoxic distress, emergently intubated also. (note, he was DNR as per [facility] form but when nursing and I asked patient he stated he wanted everything done, this was at around 4-5pm; hence made full code.) Decision to intubate; given etomidate 40mg iv and succinylcholine 160mg x1, intubated with glidescope 4 blade with 8.0 ett successfuly and confirmed with capno/air entry and cxr. Started on propofol for sedation He is now on levophed 5mcg/min and delta 100mcg/min; weaning down to keep MAP>65 and SBP>100 He is now also making urine with better perfusion pressures Ectopy improved; HR remains in 50-60s sinus rhythm No bleeding noted at any puncture site CXR confirms left IJ central placement without PTX, ETT above chet, NGT below diaphragm; possible retrocardiac density on left? CT was reviewed earlier, small infiltrate perihilar. Mixed venous gas - 98% sat from IJ? confirmed in vein by usg. Profound septic shock? CVP now 22; will hold further IVF; maintain pressor support, no indication for inotropes; start hydrocortisone 100mg iv q8h for profound sepsis Try to wean down delta, once further down, will add vasopressin IV 2u/hr TTE in AM to eval LV function, though may not be able to see everythign due to body habitus. Vent - AC 20/500/+7/100; synchronized with vent, not in pain or moving. pending lactic acid level. I tried to contact his brother J Luis at home phone and cell phone but no answer ; will have nursing try to contact again in a bit for update of condition. Assessment- -acute hypoxic resp failure, intubated -septic shock, unclear source - pneumonia? -inner thigh cellulitus appears more candidal infection -LE no wounds -r/o UTI Plan - pressors support, IVF as needed, IV abx with zosyn IV now. Will dose vancomycin 1gm IV x1 now (allergy is pain at IV site, he now has central line, no documented severe reaction/anaphylaxis). folye in place, monitor urine output. follow K and Mg levels and replete. Critical Care time 45 minutes, not including procedures. Edgardo Hercules MD [employer] Shift Manager (electronically signed)
[2016-05-30] MEDS ORDERED: Etomidate* 2 MG/ML 20 ML VIAL (40 MG) IV ONE (23:10)
[2016-05-30] MEDS ORDERED: Succinylcholine* 20 MG/ML 10 ML VIAL IV ONE (23:10)
--- NOTE | 2016-05-30 23:15 | PN ---
Progress Note - Progress Note Note: Arterial Line Procedure Note Indication: hypotension/shock Emergent placement - Prior labs/history was reviewed prior to procedure - Full sterile precautions with chlorhexidine/full drapes/gowns/gloves utilized - left radial artery visualized with US - Vessel accessed with return of pulsatile blood. 1 attempt was made to access vessel. A cathetor was threaded over wire into vessel. Good arterial waveform was observed on monitor. - Arterial Catheter was sutured to site - Adequate hemostasis was achieved, EBL 2 cc No immediate complications noted, patient tolerated procedure well. Dressing applied to site. Procedure performed independant of total critical care time Edgardo Hercules MD Computer Forensics Investigator (electronically signed)
--- NOTE | 2016-05-30 23:17 | PN ---
Progress Note - Progress Note Note: Central Line Procedure Note Indication: Hypotension/shock, poor vascular access Emergent placement; patient less responsive/lethargic/hypotensive - Prior labs/history was reviewed prior to procedure - Full sterile precautions with chlorhexidine/full drapes/gowns/gloves utilized - left IJ vein visualized with ultrasound - Vessel accessed under ultrasound guidance with return of nonpulsatile blood. A guidewire was passed into vessel and confirmed in vessel with ultrasound. 1 attempt was made to access vessel. Vessel was dilated and cathetor was passed over wire into vessel. All ports demonstrated good blood return and flushed. Catheter was sutured to site and dressing applied Adequate hemostasis was achieved, EBL 3 cc No immediate complications noted, patient tolerated procedure well. CXR post procedure - Left IJ central line crossing midline; no PTX on left Edgardo Hercules MD Shift Coordinator (electronically signed)
--- NOTE | 2016-05-30 23:18 | RAD ---
Indication: Line placement. Single frontal view of the chest performed at 2240 hours was reviewed. Comparison is made with previous exam dated May 30, 2016. Cardiomegaly is noted. Interstitial edema is noted. Endotracheal tube is at the level of T3-T4. Left-sided central line is in place with the tip overlying the superior vena cava. No pneumothorax is noted. IMPRESSION: CENTRAL LINE TIP APPEARS TO BE IN THE SUPERIOR VENA CAVA. NO PNEUMOTHORAX IS NOTED.
--- NOTE | 2016-05-30 23:20 | PN ---
Progress Note - Progress Note Note: Endotracheal Intubation Procedure Note Indication: acute hypoxic respiratory failure/lethargy Procedure done emergently. Prior labs/imaging/history reviewed as needed. Patient preoxygenated/denitrogenated with 100% FiO2 using NIV; o2 sat 100% prior to intubation. Patient was medicated with etomidate 40mg IV and succinylcholine 160mg IV for sedation Visualization of vocal cords with Grade 1 view obtained using Mac 4 blade Glidescope. 8.0 ETT was passed through the vocal cords under direct visualization and confirmed with condensation, chest rise with bilateral breath sounds and positive color change x3 on qualitative capnography. ETT was secured at 24 cm at lip. CXR post procedure - ETT terminated 4cm above chet, no PTX either side, Central line on left crosses midline. Patient tolerated procedure without immediate complication. Vent settings ordered. Procedure performed independent of total critical care time. Edgardo Hercules MD Telephone Services Sales Representative (electronically signed)
[2016-05-30 23:33] LABS: FIO2 80
[2016-05-30] MEDS: Propofol* 100 ML IV SCH (23:39)
[2016-05-30 23:42] LABS: PCO2 Arterial 72 mmHg (35-45)
[2016-05-30] MEDS ORDERED: Vancomycin(*) 1,000 MG in NS 0.9% 250 ML* 250 ML IVPB SCH (23:45)
[2016-05-31] MEDS: Propofol* 100 ML IV SCH ×9 (00:25→23:26)
[2016-05-31] MEDS ORDERED: Vancomycin(*) 1,000 MG in NS 0.9% 250 ML* 250 ML IVPB ONE ×2 (02:00→22:00)
[2016-05-31] MEDS: Chlorhexidine MOUTHWASH 0.12%* 15 ML UDC SWISH SPIT SCH ×8 (02:04→21:16)
[2016-05-31] MEDS: Norepinephrine 16MCG/ML IVPRE* 4,000 MCG/250 ML BAG IV SCH ×2 (03:11→10:02)
[2016-05-31] MEDS ORDERED: Alteplase (CATHFLO)* 2 MG VIAL IV ONE (04:45)
[2016-05-31 04:56] LABS: Hematocrit 31 % (42-52); Hemoglobin 10.1 g/dl (14.0-18.0); Mean Corpuscular HGB Conc 33 g/dl (31-36); Mean Corpuscular Hemoglobin 28 pg (27-31); Mean Corpuscular Volume 85 fL (80-94); Mean Platelet Volume 9 um3 (7.4-10.4); Red Blood Count 3.61 10^6/ul (4.0-5.4); Red Cell Distribution Width 19 % (10.5-15); White Blood Count 11.9 10^3/ul (3.5-10.8)
[2016-05-31 05:06] LABS: BUN/Creatinine Ratio 38.8 (8-20); Calcium 8.9 mg/dL (8.6-10.3); EGFR Non-African American 42.8 (>60); Magnesium 2.2 mg/dL (1.9-2.7); Potassium 3.6 mmol/L (3.5-5.0)
[2016-05-31] MEDS: Piperac/Tazob 3.375 gm in NS* 3.375 GM/100 ML BAG IVPB SCH ×3 (05:23→20:57)
[2016-05-31 06:08] LABS: FIO2 70; Resp Rate 16; Ventilator Volume 500
[2016-05-31 06:12] LABS: PCO2 Arterial 70 mmHg (35-45)
[2016-05-31 06:29] LABS: Venous Bicarbonate HCO3 38.1 mmol/L (24-28)
[2016-05-31] MEDS: Nystatin TOP POWDER* 15 GM BTL TOPICAL SCH ×3 (07:35→20:58)
[2016-05-31] MEDS: Pregabalin CAP(*) 100 MG PO SCH ×3 (07:39→21:16)
[2016-05-31] MEDS: Aspirin EC Low Dose* 81 MG TAB.EC PO SCH (07:39)
[2016-05-31] MEDS: Rivaroxaban TAB(*) 20 MG TAB PO SCH (07:40)
[2016-05-31] MEDS: KCL 20 MEQ/100 ML IVPREMIX* 20 MEQ/100 ML BAG IV SCH ×2 (07:41→10:19)
--- NOTE | 2016-05-31 08:13 | PN ---
Progress Note - Progress Note Note: Progress Note Critical Care 24 hour events/significant events: -last night more hypotensive, hypoxic, lethargic; intubated, central/arterial line placed -started on pressors -[facility], sedated on propofol; see previous days notes/events. -now sedated, but opens eyes and follows commands on less sedation -off delta, on levo 9mcg/min now; off IVF -thick white secretions being suctioned from ETT Vitals: tmax 100.8 in past 24 hours Tele - normal sinus rhythm, sinus bradycardia at times; less ectopy noted. Vital Signs Temp 100.8 F 05/31/16 07:43 Pulse 86 05/31/16 08:00 Resp 23 05/31/16 08:04 BP 101/62 05/30/16 21:45 Pulse Ox 92 05/31/16 08:03 Intake & Output 05/30/16 05/31/16 05/31/16 18:59 06:59 18:59 Intake Total 400 3196 Output Total 175 1210 325 Balance 225 1985 - Weight 509 lb 4.285 oz 496 lb 0.641 oz Intake: IV Fluids 2037 NS (0.9%) 2036 IVPB 100 350 NS (0.9%) 350 Medicated IV 749 CC - Norepinephrine/ 278 Levophed CC - Phenylephrine/ 137 Neosynephrine CC - Propofol/Diprivan 334 Oral 300 0 NG Tube Irrigate Amount 60 Output: NG Tube Drainage Amount 50 Urine 50 Guzmán 175 1110 325 Other: Estimated Void Large # Voids 1 O2/Vent: APV 14/500/+7/65%, rr 18 above vent; no autopeep observed on vent. Infusions: levophed 9mcg/min, propofol 30 Medications: Current Medications Acetaminophen (Tylenol Tab*) 650 mg PO Q4H PRN PRN Reason: FEVER Aspirin (Aspirin Ec Low Dose*) 81 mg PO DAILY [facility] Last Admin: 05/31/16 07:39 Dose: 81 mg Chlorhexidine Gluconate (Peridex Mouth Wash 0.12%*) 5 ml SWISH SPIT Q4H [facility] Last Admin: 05/31/16 07:40 Dose: 5 ml Famotidine (Pepcid Susp*) 20 mg NG TUBE DAILY [facility] Heparin Sodium (Porcine) (Heparin Flush Picc/Ml/Cvc(*)) 1 ml FLUSH 0600,1800 [facility] PRN Reason: Protocol Last Admin: 05/31/16 05:23 Dose: Not Given Piperacillin Sod/Tazobactam Sod (Zosyn 3.375 Gm In Ns Premix*) 3.375 gm in 100 mls @ 25 mls/hr IVPB Q8H [facility] Last Admin: 05/31/16 05:23 Dose: 25 mls/hr Phenylephrine HCl 50 mg/ (Sodium Chloride) 250 mls @ 15 mls/hr IV .(Initial Rate) PORTIA; 50 MCG/MIN PRN Reason: Protocol Last Admin: 05/30/16 20:20 Dose: 30 mls/hr Propofol (Diprivan*) 100 mls @ 27.72 mls/hr IV .(Initial Rate) PORTIA; 20 MCG/KG/ MIN PRN Reason: Protocol Last Admin: 05/31/16 07:33 Dose: 41.6 mls/hr Norepinephrine Bitartrate (Levophed 16 Mcg/Ml Premix Bag*) 4,000 mcg in 250 mls @ 7.5 mls/hr IV .INITIAL RATE PORTIA PRN Reason: 2 MCG/MIN Last Admin: 05/31/16 03:11 Dose: 56.3 mls/hr Potassium Chloride (Potassium Chloride 20 Meq/100 Ml Ivpremix*) 20 meq in 100 mls @ 50 mls/hr IV Q2H [facility] Stop: 05/31/16 11:59 Last Admin: 05/31/16 07:41 Dose: 50 mls/hr Nystatin (Nystatin Top Powder*) 1 applic TOPICAL TID [facility] Last Admin: 05/31/16 07:35 Dose: 1 applic Pregabalin (Lyrica Cap(*)) 100 mg PO TID [facility] Last Admin: 05/31/16 07:39 Dose: Not Given Tamsulosin HCl (Flomax Cap*) 0.4 mg PO 1700 [facility] Last Admin: 05/30/16 16:36 Dose: Not Given Physical Exam: General: intubated, sedated Head: normocephalic, atraumatic HEENT: no pallor, no icterus, moist mucous membranes Neck: no stridor, no jvd CVS: normal rate, normal rhythm, no murmur Resp: bilateral air entry better on right than left, no rhales, no wheeze, no rhonchi, no acc muscle use Abdomen: soft, nontender, nondistended, bowel sounds present Ext: pulses+, warm, bandages LE in place, mild edema trace Skin: intact, no breakdown, inner thigh/groin redness far improved now and without drainage/wheeping Neuro: intubated, sedated Labs: Laboratory Results - last 24 hr 05/30/16 05/30/16 05/30/16 10:17 10:17 10:17 WBC 16.5 H RBC 4.07 Hgb 11.1 L Hct 35 L MCV 85 MCH 27 MCHC 32 RDW 19 H Plt Count 146 L MPV 10 Neut % (Auto) 90.2 H Lymph % (Auto) 3.4 L [place] % (Auto) 6.1 Eos % (Auto) 0 Baso % (Auto) 0.3 Absolute Neuts (auto) 14.9 H Absolute Lymphs (auto) 0.6 L Absolute Monos (auto) 1.0 H Absolute Eos (auto) 0 Absolute Basos (auto) 0 Absolute Nucleated RBC 0.03 Nucleated RBC % 0.2 INR (Anticoag Therapy) 1.30 H Patient Temperature ABG pH ABG pCO2 ABG pO2 ABG HCO3 ABG O2 Saturation ABG Base Excess VBG pH VBG pCO2 VBG pO2 VBG HCO3 VBG O2 Saturation VBG Base Excess Respiration Rate O2 Delivery Device Ventilator Type Vent Mode FiO2 Inspiratory Time PEEP Pressure Support Pressure Control EPAP IPAP BiPAP Sodium 135 Potassium 3.5 Chloride 85 L Carbon Dioxide 41 H* Anion Gap 9 BUN 62 H Creatinine 1.43 H Est GFR ( Amer) 64.9 Est GFR (Non-Af Amer) 50.4 BUN/Creatinine Ratio 43.4 H Glucose 173 H Lactic Acid Calcium 9.8 Magnesium Total Bilirubin 1.40 H AST 15 ALT 7 Alkaline Phosphatase 30 L Troponin I 0.05 H* C-Reactive Protein 240.42 H B-Natriuretic Peptide Total Protein 8.0 Albumin 3.4 Globulin 4.6 H Albumin/Globulin Ratio 0.7 L Urine Color Urine Appearance Urine pH Ur Specific [place] Urine Protein Urine Ketones Urine Blood Urine Nitrate Urine Bilirubin Urine Urobilinogen Ur Leukocyte Esterase Urine WBC (Auto) Urine RBC (Auto) Ur Squamous Epith Cells Urine Bacteria Hyaline Casts Urine Glucose Influenza A (Rapid) Influenza B (Rapid) 05/30/16 05/30/16 05/30/16 10:17 10:17 12:00 WBC RBC Hgb Hct MCV MCH MCHC RDW Plt Count MPV Neut % (Auto) Lymph % (Auto) [place] % (Auto) Eos % (Auto) Baso % (Auto) Absolute Neuts (auto) Absolute Lymphs (auto) Absolute Monos (auto) Absolute Eos (auto) Absolute Basos (auto) Absolute Nucleated RBC Nucleated RBC % INR (Anticoag Therapy) Patient Temperature ABG pH ABG pCO2 ABG pO2 ABG HCO3 ABG O2 Saturation ABG Base Excess VBG pH VBG pCO2 VBG pO2 VBG HCO3 VBG O2 Saturation VBG Base Excess Respiration Rate O2 Delivery Device Ventilator Type Vent Mode FiO2 Inspiratory Time PEEP Pressure Support Pressure Control EPAP IPAP BiPAP Sodium Potassium Chloride Carbon Dioxide Anion Gap BUN Creatinine Est GFR ( Amer) Est GFR (Non-Af Amer) BUN/Creatinine Ratio Glucose Lactic Acid 1.2 Calcium Magnesium Total Bilirubin AST ALT Alkaline Phosphatase Troponin I C-Reactive Protein B-Natriuretic Peptide 182 H Total Protein Albumin Globulin Albumin/Globulin Ratio Urine Color Yellow Urine Appearance Cloudy Urine pH 5.0 Ur Specific [place] 1.011 Urine Protein Negative Urine Ketones Negative Urine Blood 3+ H Urine Nitrate Negative Urine Bilirubin Negative Urine Urobilinogen Negative Ur Leukocyte Esterase 3+ H Urine WBC (Auto) 3+(>20/hpf) H Urine RBC (Auto) 3+(>10/hpf) H Ur Squamous Epith Cells Present H Urine Bacteria Absent Hyaline Casts Present H Urine Glucose Negative Influenza A (Rapid) Influenza B (Rapid) 05/30/16 05/30/16 05/30/16 13:36 15:21 16:30 WBC RBC Hgb Hct MCV MCH MCHC RDW Plt Count MPV Neut % (Auto) Lymph % (Auto) [place] % (Auto) Eos % (Auto) Baso % (Auto) Absolute Neuts (auto) Absolute Lymphs (auto) Absolute Monos (auto) Absolute Eos (auto) Absolute Basos (auto) Absolute Nucleated RBC Nucleated RBC % INR (Anticoag Therapy) Patient Temperature Not Reportable ABG pH 7.39 ABG pCO2 84 H* ABG pO2 62 L ABG HCO3 41.4 H* ABG O2 Saturation 94.2 L ABG Base Excess 21.4 H VBG pH VBG pCO2 VBG pO2 VBG HCO3 VBG O2 Saturation VBG Base Excess Respiration Rate Not Reportable O2 Delivery Device Oxymask Ventilator Type Not Reportable Vent Mode Not Reportable FiO2 15 Inspiratory Time Not Reportable PEEP Not Reportable Pressure Support Not Reportable Pressure Control Not Reportable EPAP Not Reportable IPAP Not Reportable BiPAP Not Reportable Sodium Potassium Chloride Carbon Dioxide Anion Gap BUN Creatinine Est GFR ( Amer) Est GFR (Non-Af Amer) BUN/Creatinine Ratio Glucose Lactic Acid 1.0 Calcium Magnesium Total Bilirubin AST ALT Alkaline Phosphatase Troponin I C-Reactive Protein B-Natriuretic Peptide Total Protein Albumin Globulin Albumin/Globulin Ratio Urine Color Urine Appearance Urine pH Ur Specific [place] Urine Protein Urine Ketones Urine Blood Urine Nitrate Urine Bilirubin Urine Urobilinogen Ur Leukocyte Esterase Urine WBC (Auto) Urine RBC (Auto) Ur Squamous Epith Cells Urine Bacteria Hyaline Casts Urine Glucose Influenza A (Rapid) Negative Influenza B (Rapid) Negative 05/30/16 05/30/16 05/30/16 21:00 22:15 22:15 WBC RBC Hgb Hct MCV MCH MCHC RDW Plt Count MPV Neut % (Auto) Lymph % (Auto) [place] % (Auto) Eos % (Auto) Baso % (Auto) Absolute Neuts (auto) Absolute Lymphs (auto) Absolute Monos (auto) Absolute Eos (auto) Absolute Basos (auto) Absolute Nucleated RBC Nucleated RBC % INR (Anticoag Therapy) Patient Temperature Not Reportable ABG pH 7.31 L ABG pCO2 91 H* ABG pO2 86 ABG HCO3 37.7 H ABG O2 Saturation 100.4 H ABG Base Excess 16.4 H VBG pH 7.37 VBG pCO2 77 H VBG pO2 86 H VBG HCO3 37.6 H VBG O2 Saturation 98.4 H VBG Base Excess 16.3 H Respiration Rate Not Reportable O2 Delivery Device bipap Ventilator Type Not Reportable Vent Mode Not Reportable FiO2 50 Inspiratory Time Not Reportable PEEP Not Reportable Pressure Support Not Reportable Pressure Control Not Reportable EPAP 8 IPAP 20 BiPAP Not Reportable Sodium 138 Potassium 4.0 Chloride 90 L Carbon Dioxide 43 H* Anion Gap 5 BUN 65 H Creatinine 1.82 H Est GFR ( Amer) 49.1 Est GFR (Non-Af Amer) 38.2 BUN/Creatinine Ratio 35.7 H Glucose 136 H Lactic Acid Calcium 8.9 Magnesium Total Bilirubin 1.40 H AST 15 ALT 8 Alkaline Phosphatase 25 L Troponin I 0.05 H* C-Reactive Protein B-Natriuretic Peptide Total Protein 7.4 Albumin 3.1 L Globulin 4.3 H Albumin/Globulin Ratio 0.7 L Urine Color Urine Appearance Urine pH Ur Specific [place] Urine Protein Urine Ketones Urine Blood Urine Nitrate Urine Bilirubin Urine Urobilinogen Ur Leukocyte Esterase Urine WBC (Auto) Urine RBC (Auto) Ur Squamous Epith Cells Urine Bacteria Hyaline Casts Urine Glucose Influenza A (Rapid) Influenza B (Rapid) 05/30/16 05/30/16 05/31/16 23:27 23:40 04:40 WBC 11.9 H RBC 3.61 L Hgb 10.1 L Hct 31 L MCV 85 MCH 28 MCHC 33 RDW 19 H Plt Count 129 L MPV 9 Neut % (Auto) 86.0 H Lymph % (Auto) 5.5 L [place] % (Auto) 7.9 Eos % (Auto) 0.3 Baso % (Auto) 0.3 Absolute Neuts (auto) 10.2 H Absolute Lymphs (auto) 0.6 L Absolute Monos (auto) 0.9 H Absolute Eos (auto) 0 Absolute Basos (auto) 0 Absolute Nucleated RBC 0.02 Nucleated RBC % 0.1 INR (Anticoag Therapy) Patient Temperature Not Reportable ABG pH 7.41 ABG pCO2 72 H* ABG pO2 102 H ABG HCO3 38.8 H ABG O2 Saturation 98.4 H ABG Base Excess 17.9 H VBG pH VBG pCO2 VBG pO2 VBG HCO3 VBG O2 Saturation VBG Base Excess Respiration Rate Not Reportable O2 Delivery Device vent Ventilator Type Not Reportable Vent Mode Not Reportable FiO2 80 Inspiratory Time Not Reportable PEEP Not Reportable Pressure Support Not Reportable Pressure Control Not Reportable EPAP Not Reportable IPAP Not Reportable BiPAP Not Reportable Sodium Potassium Chloride Carbon Dioxide Anion Gap BUN Creatinine Est GFR ( Amer) Est GFR (Non-Af Amer) BUN/Creatinine Ratio Glucose Lactic Acid 1.3 Calcium Magnesium Total Bilirubin AST ALT Alkaline Phosphatase Troponin I C-Reactive Protein B-Natriuretic Peptide Total Protein Albumin Globulin Albumin/Globulin Ratio Urine Color Urine Appearance Urine pH Ur Specific [place] Urine Protein Urine Ketones Urine Blood Urine Nitrate Urine Bilirubin Urine Urobilinogen Ur Leukocyte Esterase Urine WBC (Auto) Urine RBC (Auto) Ur Squamous Epith Cells Urine Bacteria Hyaline Casts Urine Glucose Influenza A (Rapid) Influenza B (Rapid) 05/31/16 05/31/16 05/31/16 04:40 06:03 06:20 WBC RBC Hgb Hct MCV MCH MCHC RDW Plt Count MPV Neut % (Auto) Lymph % (Auto) [place] % (Auto) Eos % (Auto) Baso % (Auto) Absolute Neuts (auto) Absolute Lymphs (auto) Absolute Monos (auto) Absolute Eos (auto) Absolute Basos (auto) Absolute Nucleated RBC Nucleated RBC % INR (Anticoag Therapy) Patient Temperature Not Reportable ABG pH 7.42 ABG pCO2 70 H ABG pO2 71 L ABG HCO3 39.0 H ABG O2 Saturation 96.6 ABG Base Excess 18.1 H VBG pH 7.41 VBG pCO2 71 H VBG pO2 40 VBG HCO3 38.1 H VBG O2 Saturation 79.0 VBG Base Excess 17.5 H Respiration Rate 16 O2 Delivery Device Ett Ventilator Type 500 Vent Mode Apv FiO2 70 Inspiratory Time Not Reportable PEEP 7 Pressure Support Not Reportable Pressure Control Not Reportable EPAP Not Reportable IPAP Not Reportable BiPAP Not Reportable Sodium 136 Potassium 3.6 Chloride 90 L Carbon Dioxide 41 H* Anion Gap 5 BUN 64 H Creatinine 1.65 H Est GFR ( Amer) 55.0 Est GFR (Non-Af Amer) 42.8 BUN/Creatinine Ratio 38.8 H Glucose 161 H Lactic Acid Calcium 8.9 Magnesium 2.2 Total Bilirubin AST ALT Alkaline Phosphatase Troponin I C-Reactive Protein B-Natriuretic Peptide Total Protein Albumin Globulin Albumin/Globulin Ratio Urine Color Urine Appearance Urine pH Ur Specific [place] Urine Protein Urine Ketones Urine Blood Urine Nitrate Urine Bilirubin Urine Urobilinogen Ur Leukocyte Esterase Urine WBC (Auto) Urine RBC (Auto) Ur Squamous Epith Cells Urine Bacteria Hyaline Casts Urine Glucose Influenza A (Rapid) Influenza B (Rapid) Imaging: cxr 05/31 - ett above chet, central line in place, RLL density similar to yesterday, possible left retrocardiac density now, overall difficult image due to body habitus Assessment:60y M w/pmhx Obesity hypoventilation syndrome, Atrial flutter on Xarelto, Diastolic LV dysfunction, CAD, PVD s/p bilateral metatarsal amputation , h/o PE, HTN, s/p PM/AICD, COPD, JAIDEN, chronic home O2 2L, CKD 2/3; brought in from rehab for acute hypoxia and fevers; found to be lethargic, hypoxic, with new cellulitus on inner thighs. -Acute on Chronic Hypoxic respiratory failure -Acute on chronic hypercapneic respiratory failure, improved -Pneumonia, HCAP -Septic Shock -IZABELLA on CKD, pre-renal azotemia/septic ATN -fungal infection around groin -morbid obesity -obesity hypoventilation syndrome -Atrial Flutter Plan: Neuro- sedated on propofol, sedation weaning daily, neuro checks, asp prec. CVS-septic shock, fluid rescucitated; CVP now 15. on levophed, off delta. start vasopressin 2 units/hr for septic shock. start hydrocortisone 100mg iv q8h. blood cx pending. lactic acid normal throughout. Zosyn(day2)/Vancomycin IV (day 1) Resp-hypoxic from pneumonia, unclear if retrocardiac shadow on cxr. on APV, peep 7. abg reviewed. increase peep to 9. peak pressures are <30. synchonous with vent. no wheezing, no ind for steroids. prn duoneb. not hypercapneic anymore. pulm toilet. keep o2 sat>92% ID-WBC improved now, tmax 100.8 only. lactic acid neg. on Zosy (day 2), vancomycin (day1). blood cx pending. resp cx pending. suspicious for pneumonia as source. groin/thigh cellulitus does appear bad at all, topical nystatin started. guzmán in place, urine no growth yet. MRSA+ in nares so covering for MRSA pneumonia/HCAP pneumonia. Influenza neg. GI- GI prophylaxis with pepcid. Likel to start feeds tomorrow. Renal-IZABELLA, on CKD. pre-renal/volume depletion/hypotension/sepsis. Improved Cr. making urine. positive balance. off IVF now. reassess tomorrow. repleted K with oral. Heme-baseline anemia. cont rivaroxaban po for atrial flutter. GFR >50, will not change rivaroxaban dosing. no bleeding noted. Endo-fingersticks as needed. Musculsk-none Wounds-IV abx, wound care. topical nystatin for possible candidal infection. Nutrition-npo. will start nutrition tomorrow DVT prophylaxis: rivaroxaban, SCDs GI prophylaxis: pepcid Central Line: left ij 05/30 Arterial Line: left radial 05/30 Guzmán Cathetor: yes Disposition: ICU for septic shock, resp failure Anticipated durination of stay >2 days Code Status: Full code Total Critical Care time is 50 minutes, excluding procedures/teaching Edgardo Hercules MD Youth Manager (Electronically Signed)
[2016-05-31] MEDS ORDERED: Vasopressin* 100 UNITS in D5W 250 ML BAG* 245 ML IVPB SCH (08:30)
[2016-05-31] MEDS ORDERED: VASOPRESSIN 20 UNITS/ML 1 ML VIAL ONE (08:31)
[2016-05-31] MEDS ORDERED: Vancomycin per Pharmacy* NOTE FOLLOW UP PRN (08:37)
[2016-05-31] MEDS: Hydrocortisone INJ* 100 MG VIAL IV SCH ×2 (08:58→16:21)
[2016-05-31] MEDS ORDERED: Furosemide IV* 10 MG/ML 10 ML VIAL (100 MG) IV SCH (09:00)
[2016-05-31] MEDS ORDERED: Isosorbide Mononitrate ER TAB* 30 MG PO SCH (09:00)
[2016-05-31 09:22] LABS: FIO2 65; Resp Rate 18
[2016-05-31 09:28] LABS: PCO2 Arterial 69 mmHg (35-45)
[2016-05-31] MEDS: Famotidine SUSP* 40 MG/5 ML ORAL.SUSP NG TUBE SCH (09:33)
[2016-05-31] MEDS ORDERED: Vancomycin(*) 2,000 MG in NS 0.9% 500 ML BAG* 500 ML IVPB ONE (10:00)
--- NOTE | 2016-05-31 11:40 | RAD ---
INDICATION: Morbid obesity. History of PE. Assess for DVT. COMPARISON: March 24, 2014 bilateral lower extremity venous ultrasound. TECHNIQUE: Bailey scale, color Doppler, and spectral analysis of the deep veins of the bilateral lower extremities. Vessel compression, phasicity, and augmentation assessed. REPORT: Obesity limits acoustic window. The right common femoral, great saphenous, profunda femoral, femoral, popliteal, peroneal, and posterior tibial veins are patent. One of the paired RIGHT peroneal veins appears occluded. The left common femoral, great saphenous, profunda femoral, femoral, and popliteal veins are patent. Only one of the paired posterior tibial and one of the paired peroneal veins of the LEFT calf could be visualized and appear grossly patent. IMPRESSION: 1. No evidence for RIGHT or LEFT lower extremity DVT through the popliteal level distally. 2. Assessment of the infrageniculate calf veins is limited due to body habitus. Suggestion of occlusive thrombosis of one of the paired RIGHT peroneal veins. Neither of the RIGHT peroneal veins was conspicuous on the prior exam. Only one of the paired posterior tibial was repaired peroneal veins of the LEFT calf could be visualized and appear patent. Thrombosis of the remaining LEFT calf veins is not excluded.
--- NOTE | 2016-05-31 12:30 | RAD ---
Indication: Evaluate congestion. Infiltrate hypoxia. Comparison: May 30, 2016 Technique: Upright AP 0610 hours Report: Endotracheal tube tip approximately 6 cm above the Kanwal. Nasogastric tube passes to the stomach and outside the [id number] caudally. Severe cardiomegaly without change. RIGHT ventricular level pacemaker lead. Prominent central pulmonary vasculature. Interval improvement in prominence of the interstitial markings. Small pleural effusions are not excluded. IMPRESSION: Pulmonary vascular congestion and interstitial edema with interval improvement compared with the exam of one day prior. The endotracheal tube could be advanced approximate 3 cm.
[2016-05-31] MEDS: Tamsulosin CAP* 0.4 MG PO SCH (16:21)
[2016-05-31] MEDS ORDERED: Vancomycin(*) 1,250 MG in NS 0.9% 250 ML* 250 ML IVPB SCH (22:00)
[2016-06-01] MEDS: Chlorhexidine MOUTHWASH 0.12%* 15 ML UDC SWISH SPIT SCH ×6 (01:18→21:48)
[2016-06-01] MEDS: Hydrocortisone INJ* 100 MG VIAL IV SCH ×3 (01:18→17:16)
[2016-06-01] MEDS: Propofol* 100 ML IV SCH ×10 (01:18→22:53)
[2016-06-01] MEDS: Piperac/Tazob 3.375 gm in NS* 3.375 GM/100 ML BAG IVPB SCH ×3 (05:44→23:50)
[2016-06-01] MEDS ORDERED: Vancomycin Random Level* NOTE FOLLOW UP ONE (06:00)
[2016-06-01 06:04] LABS: Hematocrit 31 % (42-52); Hemoglobin 9.9 g/dl (14.0-18.0); Mean Corpuscular HGB Conc 32 g/dl (31-36); Mean Corpuscular Hemoglobin 28 pg (27-31); Mean Corpuscular Volume 86 fL (80-94); Mean Platelet Volume 9 um3 (7.4-10.4); Red Blood Count 3.57 10^6/ul (4.0-5.4); Red Cell Distribution Width 19 % (10.5-15); White Blood Count 7.6 10^3/ul (3.5-10.8)
[2016-06-01 06:22] LABS: Albumin 2.9 g/dL (3.2-5.2); Calcium 9.2 mg/dL (8.6-10.3); EGFR Non-African American 76.2 (>60); Globulin 4.4 g/dL (2-4); Potassium 3.5 mmol/L (3.5-5.0); Total Bilirubin 0.8 mg/dL (0.2-1.0); Total Protein 7.3 g/dL (6.4-8.9); Vancomycin Random 12.7 mcg/mL
[2016-06-01] MEDS ORDERED: Potassium Chloride LIQUID* 20 MEQ PACKET NG TUBE ONE (07:28)
[2016-06-01 07:44] LABS: FIO2 60; Resp Rate 14; Ventilator Volume 500
[2016-06-01 07:47] LABS: PCO2 Arterial 61 mmHg (35-45)
--- NOTE | 2016-06-01 08:36 | PN ---
Progress Note - Progress Note Note: Progress Note Critical Care 24 hour events/significant events: -remains intubated, sedated; noted to be more awake overnight and tried to pull ETT -weaned off pressors, latest MAPs>70 -spiked 101.8 yesterday -minimal secretions from ETT now being suctioned -no diarrhea; inner thigh cellulitus improved. Vitals: tmax 101.8 in past 24 hours Tele - normal sinus rhythm; ectopy at times. Vital Signs Temp 99.9 F 06/01/16 04:00 Pulse 60 06/01/16 04:30 Resp 18 06/01/16 04:42 BP 123/41 06/01/16 04:00 Pulse Ox 92 06/01/16 04:30 Intake & Output 05/31/16 06/01/16 06/01/16 18:59 06:59 18:59 Intake Total 1566 1364 Output Total 2615 2450 Balance -1049 -1086 Weight 485 lb 14.381 oz Intake: IV Fluids 200 387 NS (0.9%) 200 zosyn 387 IVPB 873 postassium 200 vanco 573 zosyn 100 Medicated IV 418 977 CC - Norepinephrine/ 160 289 Levophed CC - Propofol/Diprivan 242 688 CC - Vasopressin/ 16 Pitressin Tube Feeding Flush Amount 75 Output: NG Tube Drainage Amount 400 Guzmán 2615 2050 O2/Vent: APV 14/500/+7/60%, rr 21(breathing over vent); no autopeep observed on vent. Infusions: levophed off, vaso off, propofol 30 Medications: Acetaminophen (Tylenol Tab*) 650 mg PO Q4H PRN PRN Reason: FEVER Aspirin (Aspirin Ec Low Dose*) 81 mg PO DAILY [facility] Last Admin: 05/31/16 07:39 Dose: 81 mg Chlorhexidine Gluconate (Peridex Mouth Wash 0.12%*) 5 ml SWISH SPIT Q4H [facility] Last Admin: 06/01/16 05:44 Dose: 5 ml Famotidine (Pepcid Susp*) 20 mg NG TUBE DAILY [facility] Last Admin: 05/31/16 09:33 Dose: 20 mg Heparin Sodium (Porcine) (Heparin Flush Picc/Ml/Cvc(*)) 1 ml FLUSH 0600,1800 [facility] PRN Reason: Protocol Last Admin: 06/01/16 05:31 Dose: Not Given Hydrocortisone Sodium Succinate (Solu-Cortef*) 100 mg IV Q8H [facility] Last Admin: 06/01/16 01:18 Dose: 100 mg Piperacillin Sod/Tazobactam Sod (Zosyn 3.375 Gm In Ns Premix*) 3.375 gm in 100 mls @ 25 mls/hr IVPB Q8H [facility] Last Admin: 06/01/16 05:44 Dose: 25 mls/hr Propofol (Diprivan*) 100 mls @ 27.72 mls/hr IV .(Initial Rate) PORTIA; 20 MCG/KG/ MIN PRN Reason: Protocol Last Admin: 06/01/16 06:12 Dose: 27.72 mls/hr Norepinephrine Bitartrate (Levophed 16 Mcg/Ml Premix Bag*) 4,000 mcg in 250 mls @ 7.5 mls/hr IV .INITIAL RATE [facility] PRN Reason: 2 MCG/MIN Last Admin: 05/31/16 10:02 Dose: 26.3 mls/hr Vasopressin 100 units/ (Dextrose) 250 mls @ 4.5 mls/hr IVPB .(Initial Rate) [facility] PRN Reason: 0.03 UNITS/MIN Last Admin: 05/31/16 08:38 Dose: 4.5 mls/hr Vancomycin HCl 1,500 mg/ (Sodium Chloride) 250 mls @ 166.667 mls/hr IVPB Q12H [facility] Nystatin (Nystatin Top Powder*) 1 applic TOPICAL TID [facility] Last Admin: 05/31/16 20:58 Dose: 1 applic Pharmacy Consult (Vancomycin Per Pharmacy*) 1 note FOLLOW UP . PRN PRN Reason: PER PROTOCOL Pharmacy Profile Note (Vancomycin Trough Check) 1 note FOLLOW UP 0830 ONE Stop: 06/02/16 08:31 Pregabalin (Lyrica Cap(*)) 100 mg PO TID [facility] Last Admin: 05/31/16 21:16 Dose: 100 mg Rivaroxaban (Xarelto (*)) 20 mg PO DAILY [facility] Tamsulosin HCl (Flomax Cap*) 0.4 mg PO 1700 [facility] Last Admin: 05/31/16 16:21 Dose: 0.4 mg Physical Exam: General: intubated, sedated Head: normocephalic, atraumatic HEENT: no pallor, no icterus, moist mucous membranes Neck: no jvd CVS: normal rate, normal rhythm, no murmur Resp: bilateral air entry better on right than left, no rhales, no wheeze, no rhonchi, no acc muscle use Abdomen: soft, nontender, nondistended, bowel sounds present Ext: pulses+, warm, bandages LE in place, mild edema trace Skin: intact, no breakdown, inner thigh/groin redness far improved now and without drainage/wheeping Neuro: intubated, sedated Labs: Laboratory Results - last 24 hr 05/31/16 06/01/16 06/01/16 09:10 05:55 05:55 WBC 7.6 RBC 3.57 L Hgb 9.9 L Hct 31 L MCV 86 MCH 28 MCHC 32 RDW 19 H Plt Count 134 L MPV 9 Neut % (Auto) 85.7 H Lymph % (Auto) 7.2 L [place] % (Auto) 6.5 Eos % (Auto) 0 Baso % (Auto) 0.6 Absolute Neuts (auto) 6.6 Absolute Lymphs (auto) 0.5 L Absolute Monos (auto) 0.5 Absolute Eos (auto) 0 Absolute Basos (auto) 0 Absolute Nucleated RBC 0 Nucleated RBC % 0 Patient Temperature Not Reportable ABG pH 7.42 ABG pCO2 69 H ABG pO2 78 L ABG HCO3 38.5 H ABG O2 Saturation 97.6 ABG Base Excess 17.5 H Respiration Rate 18 O2 Delivery Device vent Ventilator Type Not Reportable Vent Mode apvcmv FiO2 65 Inspiratory Time Not Reportable PEEP 9 Pressure Support Not Reportable Pressure Control Not Reportable EPAP Not Reportable IPAP Not Reportable BiPAP Not Reportable Sodium 143 Potassium 3.5 Chloride 96 L Carbon Dioxide 44 H* Anion Gap 3 BUN 44 H Creatinine 1.00 Est GFR ( Amer) 98.0 Est GFR (Non-Af Amer) 76.2 BUN/Creatinine Ratio 44.0 H Glucose 160 H Calcium 9.2 Total Bilirubin 0.80 AST 17 ALT 8 Alkaline Phosphatase 23 L Total Protein 7.3 Albumin 2.9 L Globulin 4.4 H Albumin/Globulin Ratio 0.7 L Random Vancomycin 12.7 06/01/16 07:30 WBC RBC Hgb Hct MCV MCH MCHC RDW Plt Count MPV Neut % (Auto) Lymph % (Auto) [place] % (Auto) Eos % (Auto) Baso % (Auto) Absolute Neuts (auto) Absolute Lymphs (auto) Absolute Monos (auto) Absolute Eos (auto) Absolute Basos (auto) Absolute Nucleated RBC Nucleated RBC % Patient Temperature Not Reportable ABG pH 7.52 H ABG pCO2 61 H ABG pO2 78 L ABG HCO3 43.4 H* ABG O2 Saturation 97.4 ABG Base Excess 23.8 H Respiration Rate 14 O2 Delivery Device Ventilator Type 500 Vent Mode Not Reportable FiO2 60 Inspiratory Time 1 PEEP 9 Pressure Support Not Reportable Pressure Control Not Reportable EPAP Not Reportable IPAP Not Reportable BiPAP Not Reportable Sodium Potassium Chloride Carbon Dioxide Anion Gap BUN Creatinine Est GFR ( Amer) Est GFR (Non-Af Amer) BUN/Creatinine Ratio Glucose Calcium Total Bilirubin AST ALT Alkaline Phosphatase Total Protein Albumin Globulin Albumin/Globulin Ratio Random Vancomycin Imaging: cxr 05/31 - ett above chet, central line in place, RLL density similar to yesterday, possible left retrocardiac density now, overall difficult image due to body habitus cxr 06/01 - ett above chet, left IJ central line in place, no PTX, mild pulm congestion L>R, ?maybe some more infiltrate on left lower lobe? Assessment:60y M w/pmhx Obesity hypoventilation syndrome, Atrial flutter on Xarelto, Diastolic LV dysfunction, CAD, PVD s/p bilateral metatarsal amputation , h/o PE, HTN, s/p PM/AICD, COPD, JAIDEN, chronic home O2 2L, CKD 2/3; brought in from rehab for acute hypoxia and fevers; found to be lethargic, hypoxic, with new cellulitus on inner thighs. -Acute on Chronic Hypoxic respiratory failure -Acute on chronic hypercapneic respiratory failure, improved -suspected Pneumonia, HCAP ?? -Septic Shock, improved -> severe sepsis -IZABELLA on CKD, pre-renal azotemia/septic ATN -fungal infection groin -morbid obesity -obesity hypoventilation syndrome -Atrial Flutter Plan: Neuro- sedated on propofol, sedation weaning daily, neuro checks, asp prec. CVS-weaned off pressors, no ivf, making good urine with neg balance. CVP 10-15. dec hydrocortisone 50mg iv q12h. blood cx still neg growth. Zosyn(day3)/ Vancomycin IV (day 2). Rivaroxaban restarted for Aflutter. cont to hold beta blockers/antihypertensives for now. Resp-remains hypoxic, peep 9, fio2 60%; is this just pulm congestion now? no patchy infiltrates, no resp growth noted. abg reviewed - alkalotic, dec TV to 450, he is breathing over vent rate. peak pressures are <30. no wheezing, no ind for steroids. prn duoneb. pulm toilet. keep o2 sat>92%. No plan for weaning. ID-WBC improved now, tmax 101.8 only. no growth blood cx. urine growing 50-75k E.feacalis as prior cultures; unlikley to be the source of sepsis. On Zosy (day 3), vancomycin (day2). Pharmacy managing vanco dosing, increasing vanco dosing. if no growth after 24hr, will consider d/c vancomycin. suspicious for pneumonia ? groin/thigh cellulitus improved, cont nystatin topical. guzmán in place. MRSA + in nares so covering for MRSA pneumonia/HCAP pneumonia. Influenza neg. GI- GI prophylaxis with pepcid. start OG feeds today. Appears to be bilious drainage from stomach. GI exam benign, no tenderness/distension. no diarrhea. Nutrition to be consulted. Renal- IZABELLA improved. pre-renal/volume depletion/hypotension/sepsis as likely cause. Making urine with neg balance. Off IVF now. Replete K with 60meq oral. guzmán in place. Heme-baseline anemia. cont rivaroxaban po for atrial flutter. GFR >50, will not change rivaroxaban dosing. no bleeding noted. Endo-fingersticks as needed. Musculsk-none Wounds-IV abx, wound care. topical nystatin for possible candidal infection. Nutrition-start tube feeds DVT prophylaxis: rivaroxaban, SCDs GI prophylaxis: pepcid Central Line: left ij 05/30 Arterial Line: left radial 05/30 Guzmán Cathetor: yes Disposition: ICU for septic shock, resp failure Anticipated durination of stay >2 days Code Status: Full code Total Critical Care time is 50 minutes, excluding procedures/teaching Edgardo Hercules MD [employer] (Electronically Signed)
[2016-06-01 08:54] LABS: Magnesium 2.7 mg/dL (1.9-2.7)
--- NOTE | 2016-06-01 08:54 | RAD ---
HISTORY: Sepsis, hypoxic respiratory failure COMPARISONS: May 31, 2016 VIEWS:1: Single frontal portable view of the chest at 8:20 AM. Evaluation is limited secondary to technique. FINDINGS: LINES AND TUBES: An endotracheal tube is noted with the tip overlying the trachea is below the clavicles. A gastric tube is noted. The tip is not well visualized secondary to technique. A left-sided pacemaker is noted. A left internal jugular venous catheter is noted. The tip is not well visualized secondary to technique CARDIOMEDIASTINAL SILHOUETTE: The cardiac silhouette is enlarged. The cardiomediastinal silhouette is otherwise normal for portable technique. PLEURA: The costophrenic angles are sharp. No pleural abnormalities are noted. LUNG PARENCHYMA: The lung volumes are low. There is diffuse pattern of reticular opacification. ABDOMEN: The upper abdomen is clear. There is no subphrenic gas. BONES AND SOFT TISSUES: No bone or soft tissue abnormalities are noted. IMPRESSION: 1. LIMITED STUDY. 2. LINES AND TUBES ABOVE. 3. LOW LUNG VOLUMES. 4. CARDIOMEGALY WITH PULMONARY INTERSTITIAL EDEMA
[2016-06-01] MEDS ORDERED: Vancomycin Trough Check NOTE FOLLOW UP ONE (09:30)
[2016-06-01] MEDS: Aspirin EC Low Dose* 81 MG TAB.EC PO SCH (09:59)
[2016-06-01] MEDS: Rivaroxaban TAB(*) 20 MG TAB PO SCH (09:59)
[2016-06-01] MEDS: Pregabalin CAP(*) 100 MG PO SCH ×3 (09:59→21:49)
[2016-06-01] MEDS: Famotidine SUSP* 40 MG/5 ML ORAL.SUSP NG TUBE SCH (09:59)
[2016-06-01] MEDS: Vancomycin(*) 1,500 MG in NS 0.9% 250 ML* 250 ML IVPB SCH ×2 (09:59→21:49)
[2016-06-01] MEDS: Nystatin TOP POWDER* 15 GM BTL TOPICAL SCH ×3 (10:00→21:49)
[2016-06-01] MEDS ORDERED: Perflutren Lipid Microsphere* 1.1 MG/ML VIAL IV ONE (12:00)
[2016-06-01 12:48] LABS: FIO2 60; PCO2 Arterial 60 mmHg (35-45); Resp Rate 14; Ventilator Volume 450
--- NOTE | 2016-06-01 14:08 | ECHO ---
Patient: JOCELYN KHAN [facility] Rec#: [id number] : 1955 Date: 06/01/2016 Age: 60y Height: 177.8 cm / 70.0 in Weight: 230.88 kg / 508.9 lbs Sex: M BSA: 3.1 Room#: [facility] Admit Date#: 05/30/2016 Type: Inpatient Referring: Edgardo Hercules Reading: Elpidio Poe MD Medical Interpreter: Viola Bass [facility] Medical Interpreter: Carrie Cotto CC: Samuel GERONIMO,Vernell Transthoracic Echocardiogram Indication: Respiratory abn BP: 115/68 HR: 78 Rhythm: NSR with PVCs Findings History: Morbid obesity, a-flutter, CAD, PVD, s/p AICD, COPD, JAIDEN, PE in the past.Currently intubated, sedated, and mechanically ventilated. Technical Comments: The study is technically difficult. The study is technically limited due to patient body habitus. The study is technically limited due to the patient's history of COPD. The study is technically limited due to patient being intubated and on a ventilator. Completed at 1325. Left Ventricle: The left ventricle is not well visualized. Left Atrium: The left atrium is not well visualized. Right Ventricle: The right ventricle is not well visualized. A pacemaker wire is visualized in the right ventricle. Right Atrium: The right atrium is not well visualized. A pacemaker wire is visualized in the right atrium. Aortic Valve: The aortic valve is trileaflet. There is no evidence of aortic stenosis. Mitral Valve: The mitral valve leaflets are mildly thickened. There is no evidence of mitral stenosis. Tricuspid Valve: The tricuspid valve structure is not well visualized. Unable to estimate the right ventricular systolic pressure. Pulmonic Valve: The pulmonic valve appears normal. Pericardium: The pericardium is not well visualized. Aorta: The aorta is not well visualized. Pulmonary Artery: The main pulmonary artery is moderately dilated. Venous: Unable to accurately comment on the size collapsibility of the IVC as the patient in known to be on mechanical ventilation. Contrast: Optison was used to optimize study. 1 vial of Optison utilized. Intravenous contrast was used to enhance endocardial border definition. Conclusions The study is technically limited due to patient body habitus. The study is technically limited due to the patient's history of COPD. Use of echo enhancement contrast was not helpful The left ventricle is not well visualized. The right ventricle is not well visualized. A pacemaker wire is visualized in the right ventricle. There is no evidence of aortic stenosis. The tricuspid valve structure is not well visualized. Unable to estimate the right ventricular systolic pressure. The pericardium is not well visualized. Optison was used to optimize study but did not improve images Measurements Name Value Normal Range MV E-wave Vmax 1.1 m/sec - MV deceleration time 263 msec - MV A-wave Vmax 0.8 m/sec - MV E:A ratio 1.36 ratio - LV septal e' Vmax 0.12 m/sec - LV lateral e' Vmax 0.1 m/sec - LV E:e' septal ratio 9.17 ratio - LV E:e' lateral ratio 11 ratio - Name Value Normal Range AV Vmax 1.6 m/sec - AV VTI 32 cm - AV peak gradient 10.32 mmHg - AV mean gradient 5.1 mmHg - LVOT Vmax 1.4 m/sec - LVOT VTI 30.1 cm - LVOT peak gradient 7.49 mmHg - LVOT mean gradient 3.9 mmHg - Name Value Normal Range TR Vmax 1.8 m/sec - TR peak gradient 12.8 mmHg - Name Value Normal Range PV Vmax 1.2 m/sec - PV peak gradient 5.83 mmHg -
[2016-06-01 16:19] LABS: FIO2 60; Resp Rate 14; Ventilator Volume 450
[2016-06-01 16:22] LABS: PCO2 Arterial 58 mmHg (35-45)
[2016-06-01] MEDS: Tamsulosin CAP* 0.4 MG PO SCH (17:16)
[2016-06-01] MEDS: fentaNYL* 50 MCG/ML 2 ML VIAL (100 MCG VIAL) IV SLOW PU PRN ×2 (18:18→22:08)
[2016-06-01] MEDS ORDERED: fentaNYL* 50 MCG/ML 2 ML VIAL (100 MCG VIAL) IV ONE (23:00)
[2016-06-02] MEDS: Propofol* 100 ML IV SCH ×16 (01:26→23:45)
[2016-06-02] MEDS: Chlorhexidine MOUTHWASH 0.12%* 15 ML UDC SWISH SPIT SCH ×6 (02:49→22:00)
[2016-06-02] MEDS: fentaNYL* 50 MCG/ML 2 ML VIAL (100 MCG VIAL) IV SLOW PU PRN (04:35)
[2016-06-02] MEDS: Acetaminophen ADULT LIQ* 650 MG/20.3 ML UDC PO PRN ×3 (04:35→19:57)
[2016-06-02] MEDS: Hydrocortisone INJ* 100 MG VIAL IV SCH ×2 (04:36→09:41)
[2016-06-02 05:49] LABS: Hematocrit 31 % (42-52); Mean Corpuscular HGB Conc 32 g/dl (31-36); Mean Corpuscular Hemoglobin 28 pg (27-31); Mean Corpuscular Volume 86 fL (80-94); Mean Platelet Volume 9 um3 (7.4-10.4); Red Blood Count 3.57 10^6/ul (4.0-5.4); Red Cell Distribution Width 20 % (10.5-15); White Blood Count 7.6 10^3/ul (3.5-10.8)
[2016-06-02 05:59] LABS: BUN/Creatinine Ratio 36.5 (8-20); Calcium 9.2 mg/dL (8.6-10.3); EGFR African American 93.7 (>60); EGFR Non-African American 72.8 (>60); Magnesium 2.8 mg/dL (1.9-2.7); Potassium 3.5 mmol/L (3.5-5.0)
[2016-06-02] MEDS: Piperac/Tazob 3.375 gm in NS* 3.375 GM/100 ML BAG IVPB SCH (06:44)
[2016-06-02] MEDS: Famotidine SUSP* 40 MG/5 ML ORAL.SUSP NG TUBE SCH (07:23)
[2016-06-02] MEDS: Aspirin EC Low Dose* 81 MG TAB.EC PO SCH (07:23)
[2016-06-02] MEDS: Rivaroxaban TAB(*) 20 MG TAB PO SCH (07:23)
[2016-06-02] MEDS: Pregabalin CAP(*) 100 MG PO SCH ×3 (07:23→20:04)
[2016-06-02] MEDS: Nystatin TOP POWDER* 15 GM BTL TOPICAL SCH ×3 (07:24→20:05)
--- NOTE | 2016-06-02 08:00 | RAD ---
INDICATION: Hypoxia COMPARISON: Chest x-ray dated May 31, 2016 TECHNIQUE: Single AP portable view of the chest was obtained. FINDINGS: Image quality is compromised due to the relative inferiority of a portable chest x-ray. The endotracheal tube terminates below the level of the clavicular heads and above the chet. The gastric tube terminates below the level of the diaphragm overlying the expected location of the fundus. There is persistent cardiomegaly and density obscuring the left lung base. There is appearance of pulmonary vascular congestion depicted well overlying the right lung. IMPRESSION: Similar chest x-ray to the May 31, 2016 chest x-ray with cardiomegaly and signs of vascular congestion as well as density obscuring the left hemidiaphragm. Overall aeration is slightly worse.
[2016-06-02] MEDS ORDERED: Vancomycin Trough Check NOTE FOLLOW UP ONE (08:30)
--- NOTE | 2016-06-02 08:31 | PN ---
Progress Note - Progress Note Note: Progress Note Critical Care 24 hour events/significant events: -remains intubated, sedated -remains off pressors -minimal secretions from ETT now being suctioned -started on feeds Vitals: tmax 100.7 in past 24 hours Tele - normal sinus rhythm; ectopy+ Vital Signs Temp 100.7 F 06/02/16 07:34 Pulse 51 06/02/16 07:30 Resp 23 06/02/16 07:30 BP 126/47 06/01/16 10:00 Pulse Ox 96 06/02/16 07:30 Intake & Output 06/01/16 06/02/16 06/02/16 18:59 06:59 18:59 Intake Total 896 2053 Output Total 750 1200 Balance 146 853 Weight 494 lb 15.004 oz Intake: IV Fluids 71 NS (0.9%) 71 IVPB 367 582 NS (0.9%) 582 vanco 260 zosyn 107 Medicated IV 458 837 CC - Propofol/Diprivan 458 837 Oral 0 Tube Feeding 314 NG Tube Irrigate Amount 320 Output: Urine 700 Guzmán 750 500 O2/Vent: APV 14/450/+12/60%, rr 22(breathing over vent); no autopeep observed on vent. Infusions: propofol 50 Medications: Acetaminophen (Tylenol Adult Liq*) 650 mg PO Q4H PRN PRN Reason: FEVER Last Admin: 06/02/16 04:35 Dose: 650 mg Aspirin (Aspirin Ec Low Dose*) 81 mg PO DAILY [facility] Last Admin: 06/02/16 07:23 Dose: 81 mg Chlorhexidine Gluconate (Peridex Mouth Wash 0.12%*) 5 ml SWISH SPIT Q4H [facility] [place] Last Admin: 06/02/16 05:27 Dose: 5 ml Famotidine (Pepcid Susp*) 20 mg NG TUBE DAILY [facility] [place] Last Admin: 06/02/16 07:23 Dose: 20 mg Fentanyl Citrate (Fentanyl*) 25 mcg IV SLOW PU Q2H PRN PRN Reason: PAIN Last Admin: 06/02/16 04:35 Dose: 25 mcg Heparin Sodium (Porcine) (Heparin Flush Picc/Ml/Cvc(*)) 1 ml FLUSH 0600,1800 [facility] [place] PRN Reason: Protocol Last Admin: 06/02/16 05:02 Dose: Not Given Hydrocortisone Sodium Succinate (Solu-Cortef*) 50 mg IV Q12H [facility] [place] Last Admin: 06/02/16 04:36 Dose: 50 mg Piperacillin Sod/Tazobactam Sod (Zosyn 3.375 Gm In Ns Premix*) 3.375 gm in 100 mls @ 25 mls/hr IVPB Q8H [facility] [place] Last Admin: 06/02/16 06:44 Dose: 25 mls/hr Propofol (Diprivan*) 100 mls @ 27.72 mls/hr IV .(Initial Rate) PORTIA; 20 MCG/KG/ MIN PRN Reason: Protocol Last Admin: 06/02/16 08:28 Dose: 69.3 mls/hr Norepinephrine Bitartrate (Levophed 16 Mcg/Ml Premix Bag*) 4,000 mcg in 250 mls @ 7.5 mls/hr IV .INITIAL RATE PORTIA PRN Reason: 2 MCG/MIN Last Admin: 05/31/16 10:02 Dose: 26.3 mls/hr Vancomycin HCl 1,500 mg/ (Sodium Chloride) 250 mls @ 166.667 mls/hr IVPB Q12H [facility] [place] Last Admin: 06/01/16 21:49 Dose: 166.667 mls/hr Nystatin (Nystatin Top Powder*) 1 applic TOPICAL TID [facility] Last Admin: 06/02/16 07:24 Dose: 1 applic Pharmacy Consult (Vancomycin Per Pharmacy*) 1 note FOLLOW UP . PRN PRN Reason: PER PROTOCOL Pregabalin (Lyrica Cap(*)) 100 mg PO TID [facility] Last Admin: 06/02/16 07:23 Dose: 100 mg Rivaroxaban (Xarelto (*)) 20 mg PO DAILY [facility] Last Admin: 06/02/16 07:23 Dose: 20 mg Tamsulosin HCl (Flomax Cap*) 0.4 mg PO 1700 [facility] Last Admin: 06/01/16 17:16 Dose: 0.4 mg Physical Exam: General: intubated, sedated Head: normocephalic, atraumatic HEENT: no pallor, no icterus, moist mucous membranes Neck: no jvd CVS: normal rate, normal rhythm, no murmur Resp: bilateral air entry better on right than left, no rhales, no wheeze, no rhonchi, no acc muscle use Abdomen: soft, nontender, nondistended, bowel sounds present Ext: pulses+, warm, bandages LE in place, mild edema trace Skin: intact, no breakdown, inner thigh/groin redness far improved now and without drainage/wheeping Neuro: intubated, sedated Labs: Laboratory Results - last 24 hr 06/01/16 06/01/16 06/02/16 12:35 16:15 05:35 WBC RBC Hgb Hct MCV MCH MCHC RDW Plt Count MPV Neut % (Auto) Lymph % (Auto) [place] % (Auto) Eos % (Auto) Baso % (Auto) Absolute Neuts (auto) Absolute Lymphs (auto) Absolute Monos (auto) Absolute Eos (auto) Absolute Basos (auto) Absolute Nucleated RBC Nucleated RBC % Patient Temperature Not Reportable Not Reportable ABG pH 7.49 H 7.50 H ABG pCO2 60 H 58 H ABG pO2 57 L* 86 ABG HCO3 40.2 H* 40.0 H ABG O2 Saturation 93.2 L 97.7 ABG Base Excess 19.7 H 19.4 H Respiration Rate 14 14 O2 Delivery Device Vent Ventilator Type 450 450 Vent Mode Apv cmv cmv FiO2 60 60 Inspiratory Time Not Reportable 1 PEEP 9 12 Pressure Support Not Reportable Not Reportable Pressure Control Not Reportable Not Reportable EPAP Not Reportable Not Reportable IPAP Not Reportable Not Reportable BiPAP Not Reportable Not Reportable Sodium 145 Potassium 3.5 Chloride 98 L Carbon Dioxide 41 H* Anion Gap 6 BUN 38 H Creatinine 1.04 Est GFR ( Amer) 93.7 Est GFR (Non-Af Amer) 72.8 BUN/Creatinine Ratio 36.5 H Glucose 148 H Calcium 9.2 Magnesium 2.8 H Vancomycin Trough 06/02/16 06/02/16 06/02/16 05:35 07:25 09:20 WBC 7.6 RBC 3.57 L Hgb 10.0 L Hct 31 L MCV 86 MCH 28 MCHC 32 RDW 20 H Plt Count 148 L MPV 9 Neut % (Auto) 78.1 Lymph % (Auto) 13.2 L [place] % (Auto) 8.1 Eos % (Auto) 0.1 Baso % (Auto) 0.5 Absolute Neuts (auto) 5.9 Absolute Lymphs (auto) 1.0 Absolute Monos (auto) 0.6 Absolute Eos (auto) 0 Absolute Basos (auto) 0 Absolute Nucleated RBC 0 Nucleated RBC % 0.1 Patient Temperature ABG pH 7.48 H ABG pCO2 61 H ABG pO2 118 H ABG HCO3 39.9 H ABG O2 Saturation 99.2 H ABG Base Excess 19.2 H Respiration Rate O2 Delivery Device Ventilator Type Vent Mode FiO2 Inspiratory Time PEEP Pressure Support Pressure Control EPAP IPAP BiPAP Sodium Potassium Chloride Carbon Dioxide Anion Gap BUN Creatinine Est GFR ( Amer) Est GFR (Non-Af Amer) BUN/Creatinine Ratio Glucose Calcium Magnesium Vancomycin Trough 15.7 Microbiology 05/30/16 10:17 Aerobic Blood Culture - Preliminary Blood Venous No Growth Day 3 Anaerobic Blood Culture - Preliminary No Growth Day 3 Blood Culture - Final 05/31/16 00:30 Gram Stain - Final Sputum Induced Sputum Culture - Preliminary MRSA 05/30/16 10:17 Aerobic Blood Culture - Preliminary Blood Venous No Growth Day 2 Anaerobic Blood Culture - Preliminary No Growth Day 2 Blood Culture - Final 05/30/16 12:00 Urine Culture - Final Urine Enterococcus Faecalis Normal [facility]: cxr 05/31 - ett above chet, central line in place, RLL density similar to yesterday, possible left retrocardiac density now, overall difficult image due to body habitus cxr 06/01 - ett above chet, left IJ central line in place, no PTX, mild pulm congestion L>R, ?maybe some more infiltrate on left lower lobe? cxr 06/02 - ett above chet, left IJ central line in place, similar left sided retrocardiac infiltrate? small effusion left side Assessment:60y M w/pmhx Obesity hypoventilation syndrome, Atrial flutter on Xarelto, Diastolic LV dysfunction, CAD, PVD s/p bilateral metatarsal amputation , h/o PE, HTN, s/p PM/AICD, COPD, JAIDEN, chronic home O2 2L, CKD 2/3; brought in from rehab for acute hypoxia and fevers; found to be lethargic, hypoxic, with new cellulitus on inner thighs. -Acute on Chronic Hypoxic respiratory failure -Acute on chronic hypercapneic respiratory failure, improved -Staph Aureus Pneumonia, HCAP -Septic Shock, improved -> severe sepsis -IZABELLA on CKD, pre-renal azotemia/septic ATN -fungal infection groin -morbid obesity -obesity hypoventilation syndrome -Atrial Flutter Plan: Neuro- sedated on propofol, sedation weaning as per protocol and neuro checks daily, asp prec. CVS- remains off pressors, no ivf, making urine but more balanced/positive last 24 hours. Decrease hydrocortisone 50mg iv qdaily. CVP 10-15. Blood cx negative, positive resp culture for MRSA. Zosyn(day4)/Vancomycin IV (day 3). Rivaroxaban via NGT for Aflutter. cont to hold beta blockers/antihypertensives Resp-remains hypoxic, peep 12, fio2 60%; likely to be Staph pneumonia as cause. Resp cx growth MRSA+. no wheezing, no ind for steroids. prn duoneb. pulm toilet. keep o2 sat>92%. Cannot wean today due to high requirements on vent. ABG reviewed - decrease fio2, repeat abg at 1pm. slow steady improvement. ID-WBC stable, low grade temps max 100.7. Blood cx neg x2, Resp cx + for Staph aureus (pending sensitivity). He is MRSA colonized so likely MRSA growth. Urine growing 50-75k E.feacalis as prior cultures; unlikley to be the source of sepsis. On Zosy (day 4), vancomycin (day3). Pharmacy managing vanco dosing, vanco level 15.7, continuing current dosage, goal vanco trough 15-20 for mrsa pneumonia, recheck trough in AM. d/c zosyn as no other growth noted. Groin/ thigh cellulitus improved, cont nystatin topical. guzmán in place. Influenza neg. GI- GI prophylaxis with pepcid. Started NGT feed promote goal 60cc/hour. No diarrhea. Renal- IZABELLA improved. pre-renal/volume depletion/hypotension/sepsis as likely cause. Making urine. Off IVF now. Replete K. guzmán in place. Increase free water flushes. Heme-baseline anemia. cont rivaroxaban po for atrial flutter. GFR >50, will not change rivaroxaban dosing. no bleeding noted. Endo-fingersticks as needed. Musculsk-none Wounds-IV abx, wound care. topical nystatin for possible candidal infection. Nutrition- tube feeds (promote) DVT prophylaxis: rivaroxaban, SCDs GI prophylaxis: pepcid Central Line: left ij 05/30 Arterial Line: left radial 05/30 Guzmán Cathetor: yes Disposition: ICU for septic shock, resp failure Anticipated duriation of stay >2 days Code Status: Full code Total Critical Care time is 50 minutes, excluding procedures/teaching Edgardo Hercules MD [employer] (Electronically Signed)
[2016-06-02] MEDS ORDERED: Potassium Chloride LIQUID* 20 MEQ PACKET NG TUBE ONE (08:46)
[2016-06-02 09:30] LABS: PCO2 Arterial 61 mmHg (35-45)
[2016-06-02] MEDS: Vancomycin(*) 1,500 MG in NS 0.9% 250 ML* 250 ML IVPB SCH ×2 (09:34→20:04)
[2016-06-02] MEDS: KCL 20 MEQ/100 ML IVPREMIX* 20 MEQ/100 ML BAG IV SCH ×2 (09:48→12:12)
[2016-06-02 13:51] LABS: FIO2 50; Ventilator Volume 450
[2016-06-02 13:53] LABS: PCO2 Arterial 56 mmHg (35-45)
[2016-06-02] MEDS: Tamsulosin CAP* 0.4 MG PO SCH (16:49)
[2016-06-02 18:14] LABS: FIO2 50; Resp Rate 14; Ventilator Volume 450
[2016-06-02 18:17] LABS: PCO2 Arterial 62 mmHg (35-45)
[2016-06-03] MEDS: Propofol* 100 ML IV SCH ×12 (01:14→23:32)
[2016-06-03] MEDS: Chlorhexidine MOUTHWASH 0.12%* 15 ML UDC SWISH SPIT SCH ×6 (02:26→20:19)
[2016-06-03] MEDS: Acetaminophen ADULT LIQ* 650 MG/20.3 ML UDC PO PRN ×2 (04:28→20:09)
[2016-06-03 06:34] LABS: Hematocrit 31 % (42-52); Hemoglobin 9.7 g/dl (14.0-18.0); Mean Corpuscular HGB Conc 32 g/dl (31-36); Mean Corpuscular Hemoglobin 28 pg (27-31); Mean Corpuscular Volume 87 fL (80-94); Mean Platelet Volume 9 um3 (7.4-10.4); Red Blood Count 3.51 10^6/ul (4.0-5.4); Red Cell Distribution Width 19 % (10.5-15); White Blood Count 8.1 10^3/ul (3.5-10.8)
[2016-06-03 06:39] LABS: Add Diff/Slide Review? Slide Review Added; Comments Flag Yes
[2016-06-03 06:47] LABS: Calcium 9.2 mg/dL (8.6-10.3); EGFR African American 101.5 (>60); EGFR Non-African American 78.9 (>60); Magnesium 2.6 mg/dL (1.9-2.7); Potassium 3.5 mmol/L (3.5-5.0)
[2016-06-03] MEDS: Vancomycin(*) 1,500 MG in NS 0.9% 250 ML* 250 ML IVPB SCH ×2 (08:24→20:09)
[2016-06-03] MEDS: Famotidine SUSP* 40 MG/5 ML ORAL.SUSP NG TUBE SCH (08:24)
[2016-06-03] MEDS: Rivaroxaban TAB(*) 20 MG TAB PO SCH (08:25)
[2016-06-03] MEDS: Aspirin EC Low Dose* 81 MG TAB.EC PO SCH (08:25)
[2016-06-03] MEDS: Hydrocortisone INJ* 100 MG VIAL IV SCH (08:25)
[2016-06-03] MEDS: Pregabalin CAP(*) 100 MG PO SCH ×3 (08:25→20:09)
[2016-06-03] MEDS: Nystatin TOP POWDER* 15 GM BTL TOPICAL SCH ×3 (08:26→20:09)
[2016-06-03 10:03] LABS: PCO2 Arterial 77 mmHg (35-45)
[2016-06-03] MEDS: fentaNYL* 50 MCG/ML 2 ML VIAL (100 MCG VIAL) IV SLOW PU PRN ×2 (10:35→14:34)
--- NOTE | 2016-06-03 11:41 | PN ---
Progress Note - Progress Note Note: CRITICAL CARE MEDICINE Date: 06/03/16 Time: 825 SUBJECTIVE: Patient seen and examined. PHYSICAL EXAM: super morbid obesity Vital Signs: Reviewed. Neurologic: sedated on propofol (sedation vacation report from nursing this am, pt awoke and squeezed hands to command). HEENT: pupils equal. Sclera anicteric. Trachea midline. ett in place Cardiovascular: distant, S1 S2 Respiratory: dec - changed to aprv overnight and adjusted this am. Abdomen: Soft, nt. No r/g/r. Extremities: Warm. Access: Left IJ and left radial jana LABS: Reviewed. IMAGING: Reviewed. MEDICATIONS: Reviewed. ASSESSMENT: 60 M Acute on chronic hypoxic and hypercarbic resp failure tx for MRSA pna Septic shock on admission IZABELLA on CKD on admission with component of ATN Aflutter on xarelto OHS Super morbid obesity h/p PE HTN Cardiomyopathy s/p AICD PLAN: Neurologic: lighten sedation for RASS -2. Cardiovascular: Perfusing. volume status difficulty, but seems to be up, however with his pickwickian dynamics may not be easy to mobilize fluid with R heart and peep needs, and now with aprv. f/u. Respiratory: adjusted to APRV. see if he has any further recruitable lungs. tx for mrsa and copd. hopefully if we can recruit and he can spont ventilate, even on high settings, he may have a chance at liberation from vent. would not want to see him with a trach. Gastrointestinal: tf. propofl use precludes inc at this time. sup Renal/Metabolic: lytes and Cr ok. replete K Infectious Disease: on vanco with pharmacy f/u. likely a 2 week course needed, but better controlled now. Hematology: stable with icu diluting hb Endocrine: no steroid need at this time Musculoskeletal: poor status and not participating at this time Psych/Social: will look to update family. Supportive and preventative care as ordered. SUP: tf VTE prophylaxis: xeralto Chris catheter given critical illness, monitoring needs for accurate assessment of IZABELLA and KDIGO criteria for critically ill patients and to avoid potential harms of urinary retention, skin breakdown/ulcers. Disposition: ICU Code Status: Full Critical Care Time: 35min Fady Quintana DO
[2016-06-03] MEDS: Potassium Chloride LIQUID* 20 MEQ PACKET PO SCH (12:58)
[2016-06-03] MEDS: Tamsulosin CAP* 0.4 MG PO SCH (17:48)
[2016-06-04] MEDS: Chlorhexidine MOUTHWASH 0.12%* 15 ML UDC SWISH SPIT SCH ×6 (01:15→20:02)
[2016-06-04] MEDS: Propofol* 100 ML IV SCH ×6 (01:16→22:49)
[2016-06-04] MEDS: Norepinephrine 16MCG/ML IVPRE* 4,000 MCG/250 ML BAG IV SCH (04:00)
[2016-06-04 05:51] LABS: Hematocrit 33 % (42-52); Hemoglobin 10.6 g/dl (14.0-18.0); Mean Corpuscular HGB Conc 32 g/dl (31-36); Mean Corpuscular Hemoglobin 28 pg (27-31); Mean Corpuscular Volume 87 fL (80-94); Mean Platelet Volume 9 um3 (7.4-10.4); Red Cell Distribution Width 19 % (10.5-15); White Blood Count 9.2 10^3/ul (3.5-10.8)
[2016-06-04 06:08] LABS: BUN/Creatinine Ratio 29.9 (8-20); Calcium 9.5 mg/dL (8.6-10.3); EGFR African American 115.1 (>60); EGFR Non-African American 89.5 (>60); Magnesium 2.6 mg/dL (1.9-2.7); Phosphorus 3.3 mg/dL (2.5-5.0); Potassium 3.6 mmol/L (3.5-5.0)
[2016-06-04] MEDS: Rivaroxaban TAB(*) 20 MG TAB PO SCH (08:06)
[2016-06-04] MEDS: Potassium Chloride LIQUID* 20 MEQ PACKET PO SCH (08:06)
[2016-06-04] MEDS: Vancomycin(*) 1,500 MG in NS 0.9% 250 ML* 250 ML IVPB SCH ×2 (08:06→20:05)
[2016-06-04] MEDS: Aspirin EC Low Dose* 81 MG TAB.EC PO SCH (08:06)
[2016-06-04] MEDS: Nystatin TOP POWDER* 15 GM BTL TOPICAL SCH ×3 (08:06→20:05)
[2016-06-04] MEDS: Pregabalin CAP(*) 100 MG PO SCH ×3 (08:06→20:03)
[2016-06-04] MEDS: Famotidine SUSP* 40 MG/5 ML ORAL.SUSP NG TUBE SCH (08:14)
[2016-06-04] MEDS: Metoprolol Tartrate TAB* 50 mg G TUBE SCH ×2 (09:35→20:02)
[2016-06-04] MEDS: Furosemide IV* 10 MG/ML VIAL (40 MG) IV SLOW PU SCH ×2 (09:35→16:37)
--- NOTE | 2016-06-04 11:07 | PN ---
Progress Note - Progress Note Note: CRITICAL CARE MEDICINE Date: 06/04/16 Time: 825 SUBJECTIVE: Patient seen and examined. PHYSICAL EXAM: super morbid obesity Vital Signs: Reviewed. Neurologic: sedated on propofol (sedation vacation report from nursing this am, pt awoke, lifted arms follows simple commands but gets agitated quickly). HEENT: pupils equal. Sclera anicteric. Trachea midline. ett in place Cardiovascular: distant, S1 S2 Respiratory: aprv. overbreathing. Abdomen: Soft, obese. Extremities: Warm. Dep edema Access: Left IJ and left radial jana LABS: Reviewed. IMAGING: Reviewed. MEDICATIONS: Reviewed. ASSESSMENT: 60 M Acute on chronic hypoxic and hypercarbic resp failure tx for MRSA pna Septic shock on admission IZABELLA on CKD on admission with component of ATN Aflutter on xarelto OHS Super morbid obesity h/p PE HTN Cardiomyopathy s/p AICD Deconditioning PLAN: Neurologic: lighten sedation for RASS -2 still. Cardiovascular: Perfusing. volume status up and start diuresis now. add back bb. arb tomorrow. may benefit from nitrates but lets see. Respiratory: adjust APRV for slow wean and potential look towards liberation to niv. secretions abundant. never going to have good looking airway pressures prior to liberation and will remain at risk and will reach out to see where family/next of kin thoughts are. Connie, would not want to see him with a trach. Gastrointestinal: tf. sup Renal/Metabolic: lytes and Cr ok. replete K Infectious Disease: on vanco with pharmacy f/u. 2 week course anticipated. Hematology: icu diluting hb; clinical f/u Endocrine: stable Musculoskeletal: poor status and not participating at this time and deconditioning continued Psych/Social: will look to update family. Supportive and preventative care as ordered. SUP: tf VTE prophylaxis: xeralto Chris catheter given critical illness, monitoring needs for accurate assessment of IZABELLA and KDIGO criteria for critically ill patients and to avoid potential harms of urinary retention, skin breakdown/ulcers. Disposition: ICU Code Status: Full Critical Care Time: 35min FBrad Quintana DO
[2016-06-04] MEDS: fentaNYL* 50 MCG/ML 2 ML VIAL (100 MCG VIAL) IV SLOW PU PRN (15:29)
[2016-06-04] MEDS: Tamsulosin CAP* 0.4 MG PO SCH (16:38)
[2016-06-05] MEDS: fentaNYL* 50 MCG/ML 2 ML VIAL (100 MCG VIAL) IV SLOW PU PRN ×6 (01:11→17:10)
[2016-06-05] MEDS ORDERED: Furosemide IV* 10 MG/ML VIAL (40 MG) ONE (01:36)
[2016-06-05] MEDS ORDERED: Furosemide IV* 10 MG/ML VIAL (40 MG) IV ONE (02:00)
[2016-06-05] MEDS: Chlorhexidine MOUTHWASH 0.12%* 15 ML UDC SWISH SPIT SCH ×6 (02:10→20:05)
[2016-06-05] MEDS: Propofol* 100 ML IV SCH ×3 (02:21→17:45)
[2016-06-05 04:59] LABS: Albumin 3.1 g/dL (3.2-5.2); BUN/Creatinine Ratio 31.4 (8-20); Calcium 9.4 mg/dL (8.6-10.3); EGFR African American 95.8 (>60); EGFR Non-African American 74.5 (>60); Globulin 4.6 g/dL (2-4); Magnesium 2.4 mg/dL (1.9-2.7); Phosphorus 4.4 mg/dL (2.5-5.0); Potassium 3.6 mmol/L (3.5-5.0); Total Bilirubin 0.9 mg/dL (0.2-1.0); Total Protein 7.7 g/dL (6.4-8.9)
[2016-06-05] MEDS: Furosemide IV* 10 MG/ML VIAL (40 MG) IV SLOW PU SCH (07:51)
[2016-06-05] MEDS: Vancomycin(*) 1,500 MG in NS 0.9% 250 ML* 250 ML IVPB SCH ×2 (07:52→20:05)
[2016-06-05] MEDS: Potassium Chloride LIQUID* 20 MEQ PACKET PO SCH (07:55)
[2016-06-05] MEDS: Aspirin EC Low Dose* 81 MG TAB.EC PO SCH (07:56)
[2016-06-05] MEDS: Famotidine SUSP* 40 MG/5 ML ORAL.SUSP NG TUBE SCH (07:56)
[2016-06-05] MEDS: Losartan TAB* 25 MG G TUBE SCH (07:56)
[2016-06-05] MEDS: Pregabalin CAP(*) 100 MG PO SCH ×3 (07:56→20:05)
[2016-06-05] MEDS: Rivaroxaban TAB(*) 20 MG TAB PO SCH (07:56)
[2016-06-05] MEDS: Metoprolol Tartrate TAB* 50 mg G TUBE SCH ×2 (07:57→20:05)
[2016-06-05] MEDS: Nystatin TOP POWDER* 15 GM BTL TOPICAL SCH ×3 (07:57→20:06)
[2016-06-05] MEDS ORDERED: Potassium Chloride LIQUID* 20 MEQ PACKET G TUBE ONE ×2 (10:00→10:14)
[2016-06-05] MEDS ORDERED: fentaNYL* 50 MCG/ML 2 ML VIAL (100 MCG VIAL) IV SLOW PU ONE (10:13)
[2016-06-05] MEDS: Acetaminophen ADULT LIQ* 650 MG/20.3 ML UDC PO PRN (12:05)
--- NOTE | 2016-06-05 12:39 | PN ---
Progress Note - Progress Note Note: CRITICAL CARE MEDICINE Date: 06/04/16 Time: 1045 SUBJECTIVE: Patient seen and examined. PHYSICAL EXAM: Vital Signs: Reviewed. Neurologic: off propofol pt moving more and follows commands. c/o discomfort. HEENT: pupils equal. Sclera anicteric. Trachea midline. ett in place Cardiovascular: distant, S1 S2 Respiratory: aprv. overbreathing. Abdomen: Soft, obese. Extremities: Warm. Dep edema Access: Left IJ and left radial jana LABS: Reviewed. IMAGING: Reviewed. MEDICATIONS: Reviewed. ASSESSMENT: 60 M Acute on chronic hypoxic and hypercarbic resp failure tx for MRSA pna Septic shock on admission IZABELLA on CKD on admission with component of ATN Aflutter on xarelto OHS Super morbid obesity h/p PE HTN Cardiomyopathy s/p AICD Deconditioning PLAN: Neurologic: limiting sedation as able. utilize more fent today for pain control. Cardiovascular: Perfusing. volume status still up and allow him to mobilize. lasix this am, then hold back so not to contract further. Respiratory: adjust APRV for continued slow wean. Hopiing he can work more and needs to mobilize further secretions. f/u cxr in am to re-eval lung water as able. Renal/Metabolic: lytes ok, and Cr up a touch with diuretics. replete K Infectious Disease: on vanco with pharmacy f/u. check troph jil. 2 week course anticipated. Hematology: stable. Endocrine: BG up a touch but no reason to blunt as of yet being less then 180. if up further may need ssi. Musculoskeletal: poor status and not participating but at least more rom with less sedation. Psych/Social: pts sister and bother updated at length yesterday Supportive and preventative care as ordered. SUP: tf VTE prophylaxis: xeralto Chris catheter given critical illness, monitoring needs for accurate assessment of IZABELLA and KDIGO criteria for critically ill patients and to avoid potential harms of urinary retention, skin breakdown/ulcers. Disposition: ICU Code Status: Full Critical Care Time: 35min Fady Quintana DO
[2016-06-05] MEDS: Tamsulosin CAP* 0.4 MG PO SCH (16:54)
[2016-06-05] MEDS ORDERED: NS 0.9% 250 ML* 250 ML ONE (19:49)
[2016-06-06] MEDS: fentaNYL* 50 MCG/ML 2 ML VIAL (100 MCG VIAL) IV SLOW PU PRN ×3 (00:15→21:01)
[2016-06-06] MEDS: Propofol* 100 ML IV SCH ×2 (00:38→06:21)
[2016-06-06] MEDS: Chlorhexidine MOUTHWASH 0.12%* 15 ML UDC SWISH SPIT SCH ×7 (04:00→20:08)
[2016-06-06 05:39] LABS: Hematocrit 32 % (42-52); Hemoglobin 9.9 g/dl (14.0-18.0); Mean Corpuscular HGB Conc 32 g/dl (31-36); Mean Corpuscular Hemoglobin 28 pg (27-31); Mean Corpuscular Volume 88 fL (80-94); Mean Platelet Volume 10 um3 (7.4-10.4); Red Blood Count 3.58 10^6/ul (4.0-5.4); Red Cell Distribution Width 19 % (10.5-15); White Blood Count 9.4 10^3/ul (3.5-10.8)
[2016-06-06 05:54] LABS: BUN/Creatinine Ratio 35.4 (8-20); Calcium 9.5 mg/dL (8.6-10.3); EGFR African American 72.4 (>60); EGFR Non-African American 56.3 (>60); Magnesium 2.7 mg/dL (1.9-2.7); Phosphorus 4.6 mg/dL (2.5-5.0); Potassium 3.9 mmol/L (3.5-5.0)
[2016-06-06] MEDS ORDERED: Vancomycin Trough Check NOTE FOLLOW UP ONE (07:30)
[2016-06-06] MEDS: Vancomycin(*) 1,500 MG in NS 0.9% 250 ML* 250 ML IVPB SCH (08:40)
[2016-06-06] MEDS: Metoprolol Tartrate TAB* 50 mg G TUBE SCH ×2 (08:41→20:07)
[2016-06-06] MEDS: Nystatin TOP POWDER* 15 GM BTL TOPICAL SCH ×3 (08:41→20:08)
[2016-06-06] MEDS: Famotidine SUSP* 40 MG/5 ML ORAL.SUSP NG TUBE SCH (08:41)
[2016-06-06] MEDS: Aspirin EC Low Dose* 81 MG TAB.EC PO SCH (08:41)
[2016-06-06] MEDS: Pregabalin CAP(*) 100 MG PO SCH ×3 (08:41→20:07)
[2016-06-06] MEDS: Losartan TAB* 25 MG G TUBE SCH (08:41)
[2016-06-06] MEDS: Rivaroxaban TAB(*) 20 MG TAB PO SCH (08:46)
[2016-06-06] MEDS ORDERED: acetaZOLAMIDE VIAL* 500 MG in NS 0.9% 50 ML* 50 ML IVPB ONE (11:00)
--- NOTE | 2016-06-06 11:48 | PN ---
Progress Note - Progress Note Note: CRITICAL CARE MEDICINE Date: 06/06/16 Time: 1050 SUBJECTIVE: Patient seen and examined. PHYSICAL EXAM: Vital Signs: Reviewed. Neurologic: off propofol pt moving more and follows simple commands. HEENT: pupils equal. Sclera anicteric. Trachea midline. ett in place Cardiovascular: distant, S1 S2 Respiratory: aprv. overbreathing. still requires high pressures. Abdomen: Soft, obese. Extremities: Warm. Dep stable edema Access: Left IJ and left radial jana LABS: Reviewed. IMAGING: Reviewed. MEDICATIONS: Reviewed. ASSESSMENT: 60 M Acute on chronic hypoxic and hypercarbic resp failure tx for MRSA pna Septic shock on admission IZABELLA on CKD on admission with component of ATN Aflutter on xarelto Multiple PVCs, asym OHS Super morbid obesity h/p PE HTN Cardiomyopathy s/p pacer Deconditioning PLAN: Neurologic: limiting sedation as able. utilize fent prn. question component of delirium. Cardiovascular: Perfusing. volume status still up perhaps but difficult to parachute marker lung water. check cxr to help but off diuretics since Cr up anyway. Respiratory: adjust APRV to allow more work again today. Still requires high pressures and will perhaps even test on conventional high level cpap to see if he can make some real effort. If able, good, then aprv overnight and hopefully to attempt liberation from vent to niv tomorrow or Wednesday. Renal/Metabolic: lytes ok, and Cr up a touch with diuretics and therefore held. one dose diamox. replete K Infectious Disease: on vanco with pharmacy f/u and agree, drop dose to 1250 bid. 2 week course anticipated. Hematology: stable. Endocrine: BG ok Musculoskeletal: poor status and not participating but more rom with less sedation. Psych/Social: pts sister and bother updated at bedside and expressed understanding. Supportive and preventative care as ordered. SUP: tf VTE prophylaxis: xeralto Chris catheter given critical illness, monitoring needs for accurate assessment of IZABELLA and KDIGO criteria for critically ill patients and to avoid potential harms of urinary retention, skin breakdown/ulcers. Disposition: ICU Code Status: Full Critical Care Time: 36min Fady Quintana DO
[2016-06-06] MEDS: Acetaminophen ADULT LIQ* 650 MG/20.3 ML UDC PO PRN ×2 (13:47→20:08)
[2016-06-06] MEDS: Vancomycin(*) 1,250 MG in NS 0.9% 250 ML* 250 ML IVPB SCH (13:51)
--- NOTE | 2016-06-06 15:07 | RAD ---
INDICATION: Respiratory failure COMPARISON: Most recent comparison chest x-rays dated June 02, 2016 TECHNIQUE: Single AP portable view of the chest was obtained. FINDINGS: Image quality is compromised due to the relative inferiority of a portable chest x-ray. The endotracheal tube appears to terminate at the level of the clavicular heads. Similar to the previous chest x-ray there is mild cardiomegaly. Pulmonary vasculature is engorged and indistinct. Density obscures the left lung base and causes bilateral costophrenic angle blunting. Visualized bones are normal for the patient's age. IMPRESSION: Findings on this very limited portable chest x-ray depict cardiogenic pulmonary edema with vascular congestion not changed significantly from the June 02, 2016 chest x-ray.
[2016-06-06] MEDS: Tamsulosin CAP* 0.4 MG PO SCH (17:47)
[2016-06-06 21:32] LABS: Albumin 3.1 g/dL (3.2-5.2); BUN/Creatinine Ratio 32.6 (8-20); Calcium 9.5 mg/dL (8.6-10.3); EGFR African American 50.4 (>60); EGFR Non-African American 39.2 (>60); Globulin 4.5 g/dL (2-4); Magnesium 2.9 mg/dL (1.9-2.7); Potassium 4.2 mmol/L (3.5-5.0); Total Bilirubin 1.1 mg/dL (0.2-1.0); Total Protein 7.6 g/dL (6.4-8.9)
[2016-06-07] MEDS: fentaNYL* 50 MCG/ML 2 ML VIAL (100 MCG VIAL) IV SLOW PU PRN ×2 (01:12→05:00)
[2016-06-07] MEDS ORDERED: NS 0.9% 250 ML* 250 ML ONE (02:17)
[2016-06-07] MEDS: Vancomycin(*) 1,250 MG in NS 0.9% 250 ML* 250 ML IVPB SCH (02:19)
[2016-06-07] MEDS: Chlorhexidine MOUTHWASH 0.12%* 15 ML UDC SWISH SPIT SCH ×6 (02:19→21:28)
[2016-06-07 05:08] LABS: BUN/Creatinine Ratio 31.9 (8-20); Calcium 9.4 mg/dL (8.6-10.3); EGFR African American 43.1 (>60); EGFR Non-African American 33.5 (>60); Magnesium 2.9 mg/dL (1.9-2.7); Phosphorus 2.8 mg/dL (2.5-5.0)
[2016-06-07] MEDS: Pregabalin CAP(*) 100 MG PO SCH ×3 (09:35→21:23)
[2016-06-07] MEDS: Acetaminophen ADULT LIQ* 650 MG/20.3 ML UDC PO PRN ×2 (09:35→21:24)
[2016-06-07] MEDS: Nystatin TOP POWDER* 15 GM BTL TOPICAL SCH ×3 (09:36→21:24)
[2016-06-07] MEDS: Aspirin EC Low Dose* 81 MG TAB.EC PO SCH (09:36)
[2016-06-07] MEDS: Metoprolol Tartrate TAB* 50 mg G TUBE SCH ×2 (09:36→21:23)
[2016-06-07] MEDS: Rivaroxaban TAB(*) 20 MG TAB PO SCH (09:37)
[2016-06-07] MEDS: Famotidine SUSP* 40 MG/5 ML ORAL.SUSP NG TUBE SCH (09:38)
--- NOTE | 2016-06-07 10:29 | PN ---
Progress Note - Progress Note Note: CRITICAL CARE MEDICINE Date: 06/07/16 Time: 835 SUBJECTIVE: Patient seen and examined. PHYSICAL EXAM: Vital Signs: Reviewed. Neurologic: off propofol. follows simple commands but prefers eyes closed. Protrudes tongue. HEENT: pupils equal. Sclera anicteric. Trachea midline. ett in place. less secretions. Cardiovascular: distant, S1 S2 Respiratory: aprv. changed to cpap 18/10 and large volumes over last 30mins and maintaining good rate. 40% Abdomen: Soft, obese. Extremities: Warm. Dep stable edema Access: Left IJ. LABS: Reviewed. IMAGING: Reviewed. MEDICATIONS: Reviewed. ASSESSMENT: 60 M Acute on chronic hypoxic and hypercarbic resp failure tx for MRSA pna Septic shock on admission IZABELLA on CKD on admission with component of ATN Aflutter on xarelto Multiple PVCs, asym OHS Super morbid obesity h/p PE HTN Cardiomyopathy s/p pacer Deconditioning PLAN: Neurologic: limiting sedation. prn fent. question component of delirium but no tx yet. hopefully can improve post liberation. Cardiovascular: Perfusing. volume status perhaps up still but given izabella unable to mobilize further. off arb for now. Respiratory: looks as good as he is likely to get. liberate to niv now. see if he can tolerate for 2 hours prior to attempts off. Hopefully we can have a lucid discussion regarding his care plans and re-intubation potentials, but needs to liberate first. Renal/Metabolic: lytes ok, f/u Cr. Infectious Disease: on vanco = f/u trough closely. Hematology: stable. Endocrine: BG ok Musculoskeletal: poor status and hopefully can participate more soon. Psych/Social: pts sister and bother updated yesterday. Supportive and preventative care as ordered. SUP: tf VTE prophylaxis: xeralto Chris catheter given critical illness, monitoring needs for accurate assessment of IZABELLA and KDIGO criteria for critically ill patients and to avoid potential harms of urinary retention, skin breakdown/ulcers. Disposition: ICU Code Status: Full Critical Care Time: 35min Fady Quintana DO
[2016-06-07] MEDS ORDERED: Potassium Chloride LIQUID* 20 MEQ PACKET G TUBE ONE (11:00)
[2016-06-07] MEDS: Propofol* 100 ML IV SCH ×2 (16:30→20:59)
--- NOTE | 2016-06-07 16:35 | PN ---
Progress Note - Progress Note Note: CRITICAL CARE MEDICINE PROCEDURE NOTE DATE: 06/07/16 TIME: 1600 SERVICE: Critical Care Medicine LOCATION OF PROCEDURE: ICU PROCEDURE: Endotracheal intubation PROCEDURALIST: Dr. Quintana Consent obtain: No, procedure performed emergently Time out held: Not indicated INDICATION: Acute respiratory failure. Pt extubated earlier in day. Tolerate 2 hours on bipap. even was able to indicate he was wanting bipap off. Trial vapotherm 40lpm at 50% and was tolerating but then secretions started to rise with poor cough and mental status never fully to hold capacitance. Not much cough. Poor ability to thrive. Then desaturation ensued and unable to rescue with bipap, therefore re- intubated. PROCEDURE: Oxygenation maintained and vitals monitored. Patient at HOB 30 degree position. Pre-medication with propofol 50mg. Glidescope #3 inserted with Grade 2 view obtained. 9.0 endotracheal tube inserted to 26cm lip. Adequete chest rise with breath sounds appreciated in bilaterally lung sauer. EtCO2 + color change. Portable chest x-ray pending. Patient with acute desaturation and quick recovery, pt otherwise tolerated well. Fady Quintana DO
[2016-06-07] MEDS ORDERED: Propofol* 10 MG/ML 20 ML BTL IV PUSH ONE (16:36)
[2016-06-07] MEDS: Tamsulosin CAP* 0.4 MG PO SCH (18:11)
--- NOTE | 2016-06-07 20:25 | RAD ---
INDICATION: Status post endotracheal and gastric tube placement COMPARISON: Chest x-ray acquired June 06, 2016 TECHNIQUE: Two AP portable views of the chest were obtained. FINDINGS: Image quality is severely compromised due to the relative inferiority of a portable chest x-ray and the patient's large body habitus. An endotracheal tube is seen with the tip terminating 1.5 cm above the chet. A gastric tube descends down the midline mediastinum below the level of the diaphragm and out of the field of view of the image. There is persistent cardiomegaly, vascular congestion and patchy densities. IMPRESSION: 1. The endotracheal tube is 1.5 cm above the level of the chet. 2. Chest x-ray findings consistent with cardiogenic pulmonary edema similar in appearance to the previous days chest x-ray.
--- NOTE | 2016-06-07 21:10 | RAD ---
INDICATION: Gastric tube placement COMPARISON: Multiple previous chest x-rays, most recently from the same day at 1602 hours TECHNIQUE: 2 AP views of the abdomen were obtained portably on June 07, 2016 at 1933 hours. FINDINGS: The gastric tube descends below the level of diaphragm and probably terminates in the vicinity of the gastric fundus. The patient's extreme obesity and the inherent inferiority a portable chest x-ray makes exact visualization of the tip difficult. Also incidentally noted is the proximal portion of a left ureteral stent. IMPRESSION: The gastric tube most likely terminates in the gastric fundus.
[2016-06-08] MEDS: Propofol* 100 ML IV SCH ×2 (00:46→06:26)
[2016-06-08] MEDS: Chlorhexidine MOUTHWASH 0.12%* 15 ML UDC SWISH SPIT SCH ×6 (01:43→20:55)
[2016-06-08] MEDS: Acetaminophen ADULT LIQ* 650 MG/20.3 ML UDC PO PRN ×2 (01:43→09:19)
[2016-06-08] MEDS ORDERED: Vancomycin Random Level* NOTE FOLLOW UP SCH (06:00)
[2016-06-08 07:07] LABS: Vancomycin Trough 22.1 mcg/mL
[2016-06-08 07:09] LABS: Albumin 2.8 g/dL (3.2-5.2); BUN/Creatinine Ratio 34.4 (8-20); Calcium 9.3 mg/dL (8.6-10.3); EGFR African American 38.1 (>60); EGFR Non-African American 29.6 (>60); Globulin 4.2 g/dL (2-4); Phosphorus 3.3 mg/dL (2.5-5.0); Potassium 3.9 mmol/L (3.5-5.0); Total Bilirubin 1.3 mg/dL (0.2-1.0)
[2016-06-08] MEDS: Rivaroxaban TAB(*) 20 MG TAB PO SCH (07:51)
[2016-06-08] MEDS: Pregabalin CAP(*) 100 MG PO SCH ×3 (07:51→20:55)
[2016-06-08] MEDS: Aspirin EC Low Dose* 81 MG TAB.EC PO SCH (07:51)
[2016-06-08] MEDS: Famotidine SUSP* 40 MG/5 ML ORAL.SUSP NG TUBE SCH (07:51)
[2016-06-08] MEDS: Metoprolol Tartrate TAB* 50 mg G TUBE SCH ×2 (07:51→20:55)
[2016-06-08] MEDS: Nystatin TOP POWDER* 15 GM BTL TOPICAL SCH ×3 (07:52→20:55)
[2016-06-08] MEDS: fentaNYL* 50 MCG/ML 2 ML VIAL (100 MCG VIAL) IV SLOW PU PRN (09:53)
[2016-06-08] MEDS: LACTULOSE* 30 ML UDC NG TUBE SCH (10:51)
--- NOTE | 2016-06-08 11:48 | PN ---
Progress Note - Progress Note Note: CRITICAL CARE MEDICINE Date: 06/08/16 Time: 825 SUBJECTIVE: Patient seen and examined. PHYSICAL EXAM: Vital Signs: Reviewed. Neurologic: low dose propofol. awakens. HEENT: pupils equal. Sclera anicteric. Trachea midline. ett in place. inc secretions. Cardiovascular: distant, S1 S2 Respiratory: aprv. distant Abdomen: Soft, obese. Extremities: Warm. Dep edema Access: Left IJ remains. LABS: Reviewed. IMAGING: Reviewed. MEDICATIONS: Reviewed. ASSESSMENT: 60 M Acute on chronic hypoxic and hypercarbic resp failure - attempted extubation and failed within 6 hours. tx for MRSA pna Septic shock on admission IZABELLA on CKD on admission with component of ATN Aflutter on xarelto Multiple PVCs, asym OHS Super morbid obesity h/p PE HTN Cardiomyopathy s/p pacer Deconditioning PLAN: Neurologic: limiting sedation. prn fent. delirium vs depression as well. Unable to gain capacitance yesterday to help support his care course Cardiovascular: Perfusing. volume status up but unable to mobilize as renal function continues to faulter. on his bb. Respiratory: aprv to re-recrtuit. can continue with spont resp. will discuss again with proxy and would adocate pt becoming dnr/dni with another trial at liberation to niv in another 24-48hs. Renal/Metabolic: lytes ok but renal function faultering under weight of ppv dependency. Infectious Disease: on vanco. hold dosing and f/u levels. do not restart until less then 15. Given his renal function and time course he may be able to avoid further dosign altogether. Hematology: stable. Endocrine: BG ok Musculoskeletal: poor status. Psych/Social: will look to update sister and bother. Supportive and preventative care as ordered. SUP: tf VTE prophylaxis: xeralto Chris catheter given critical illness, monitoring needs for accurate assessment of IZABELLA and KDIGO criteria for critically ill patients and to avoid potential harms of urinary retention, skin breakdown/ulcers. Disposition: ICU Code Status: Full presently Critical Care Time: 35min Fady Quintana DO
[2016-06-08] MEDS ORDERED: Vancomycin Trough Check NOTE FOLLOW UP ONE (13:30)
--- NOTE | 2016-06-08 15:37 | PN ---
Progress Note - Progress Note Note: CRITICAL CARE MEDICINE Date: 06/08/16 Time: 1500 d/w pts sister and brother via phone. They seem to be in agreement of plans coming towards re-try at liberation next 24-48h as a DNR/DNI. Explained to them to discuss with oncoming doctor and look to have paperwork in place and then liberate when best suited and if needed focus soley on comfort. They expressed appreciation. Critical Care Time: 10min Fady Quintana DO
[2016-06-08] MEDS: Tamsulosin CAP* 0.4 MG PO SCH (16:42)
[2016-06-09] MEDS: Chlorhexidine MOUTHWASH 0.12%* 15 ML UDC SWISH SPIT SCH ×6 (02:04→21:04)
[2016-06-09] MEDS: fentaNYL* 50 MCG/ML 2 ML VIAL (100 MCG VIAL) IV SLOW PU PRN ×5 (04:51→22:14)
[2016-06-09] MEDS ORDERED: Vancomycin Random Level* NOTE FOLLOW UP SCH (06:00)
--- NOTE | 2016-06-09 07:20 | PN ---
Progress Note - Progress Note Note: Progress Note Critical Care 24 hour events/significant events: -remains intubated. noted to had been extubated 2 days prior but became more lethargic and was re-intubated -currently off sedation, on fentanyl prn. follows commands, completely awake and moving. seems restless and uncomfortable, states with head motion back pain. -overnight urine output noted -guzmán temp >102 persistently; alternative site temps lower, now repeat temp checked at 101F. -not on pressors Vitals: tmax 102-103; repeat last temp nonfoley was 101 Tele - normal sinus rhythm; ectopy+ Vital Signs Temp 102.5 F 06/09/16 07:30 Pulse 67 06/04/16 16:15 Resp 12 06/09/16 09:30 BP 113/56 06/09/16 09:00 Pulse Ox 98 06/09/16 09:30 Intake & Output 06/08/16 06/09/16 06/09/16 18:59 06:59 18:59 Intake Total 767 180 Output Total 700 1550 Balance 67 -1550 180 Weight 477 lb 15.395 oz Intake: IV Fluids 80 NS (0.9%) 80 Medicated IV 50 CC - Propofol/Diprivan 50 Tube Feeding 280 Tube Feeding Flush Amount 297 180 NG Tube Irrigate Amount 60 Output: Guzmán 700 1550 Tube Feeding Residual 0 0 Amount Wasted Other: Date of Last Bowel 06/08/16 Movement # Bowel Movements 1 Estimated Stool Amount Large O2/Vent: on APRV peak 34, peep 10; sat 100%, 40% Fio2. Infusions: propofol 5mcg/kg/min now started Medications: Acetaminophen (Tylenol Adult Liq*) 650 mg PO Q4H PRN PRN Reason: FEVER Last Admin: 06/09/16 07:40 Dose: 650 mg Aspirin (Aspirin Ec Low Dose*) 81 mg PO DAILY [facility] Last Admin: 06/09/16 07:40 Dose: 81 mg Chlorhexidine Gluconate (Peridex Mouth Wash 0.12%*) 5 ml SWISH SPIT Q4H [facility] Last Admin: 06/09/16 04:51 Dose: 5 ml Famotidine (Pepcid Susp*) 20 mg NG TUBE DAILY [facility] Last Admin: 06/09/16 07:40 Dose: 20 mg Fentanyl Citrate (Fentanyl*) 50 mcg IV SLOW PU Q2H PRN PRN Reason: PAIN Last Admin: 06/09/16 07:33 Dose: 50 mcg Norepinephrine Bitartrate (Levophed 16 Mcg/Ml Premix Bag*) 4,000 mcg in 250 mls @ 7.5 mls/hr IV .INITIAL RATE [facility] PRN Reason: 2 MCG/MIN Last Admin: 05/31/16 10:02 Dose: 26.3 mls/hr Propofol (Diprivan*) 100 mls @ 27.72 mls/hr IV .(Initial Rate) PORTIA; 20 MCG/KG/ MIN PRN Reason: Protocol Last Admin: 06/09/16 08:05 Dose: 27.72 mls/hr Vancomycin HCl 1,500 mg/ (Sodium Chloride) 250 mls @ 166.667 mls/hr IVPB ONCE ONE Stop: 06/09/16 10:29 Last Admin: 06/09/16 09:20 Dose: 166.667 mls/hr Lactulose (Lactulose*) 30 ml NG TUBE DAILY [facility] Stop: 06/10/16 09:01 Last Admin: 06/09/16 07:39 Dose: 30 ml Metoprolol Tartrate (Lopressor Tab*) 50 mg G TUBE Q12HR [facility] Last Admin: 06/09/16 07:40 Dose: 50 mg Nystatin (Nystatin Top Powder*) 1 applic TOPICAL TID [facility] Last Admin: 06/09/16 07:41 Dose: 1 applic Pharmacy Consult (Vancomycin Per Pharmacy*) 1 note FOLLOW UP . PRN PRN Reason: PER PROTOCOL Pharmacy Consult (Vancomycin Random Level*) 1 note FOLLOW UP 0600 ONE Stop: 06/10/16 06:01 Pregabalin (Lyrica Cap(*)) 100 mg PO TID [facility] Last Admin: 06/09/16 07:40 Dose: 100 mg Rivaroxaban (Xarelto(*)) 15 mg PO DAILY [facility] Tamsulosin HCl (Flomax Cap*) 0.4 mg PO 1700 [facility] Last Admin: 06/08/16 16:42 Dose: Not Given Physical Exam: General: intubated, awake, alert, follows commands, restless Head: normocephalic, atraumatic HEENT: no pallor, no icterus, moist mucous membranes Neck: no jvd CVS: normal rate, normal rhythm, no murmur Resp: bilateral air entry, no rhales, no wheeze, no rhonchi, no acc muscle use Abdomen: soft, nontender, nondistended, bowel sounds present, obese+ Ext: pulses+, warm, LE is dark/chronic venous changes with mild superficial wounds on left with serous drainage. Skin: intact, no breakdown, inner thigh/groin redness improved, left leg superfical wounds, back pressure wounds stage 1/unstageable Neuro: follows commands while intubated, moves all ext. Labs: Laboratory Results - last 24 hr 06/09/16 06/09/16 06/09/16 06:27 06:27 06:27 WBC 9.9 RBC 3.42 L Hgb 9.5 L Hct 30 L MCV 89 MCH 28 MCHC 31 RDW 20 H Plt Count 146 L MPV 12 H Neut % (Auto) 78.2 Lymph % (Auto) 11.2 L [place] % (Auto) 8.1 Eos % (Auto) 1.8 Baso % (Auto) 0.7 Absolute Neuts (auto) 7.7 Absolute Lymphs (auto) 1.1 Absolute Monos (auto) 0.8 Absolute Eos (auto) 0.2 Absolute Basos (auto) 0.1 Absolute Nucleated RBC 0.01 Nucleated RBC % 0.1 Sodium 146 H Potassium 3.5 Chloride 101 Carbon Dioxide 37 H Anion Gap 8 BUN 73 H Creatinine 1.78 H Est GFR ( Amer) 50.4 Est GFR (Non-Af Amer) 39.2 BUN/Creatinine Ratio 41.0 H Glucose 151 H Calcium 9.4 Phosphorus 4.6 Magnesium 3.2 H Random Vancomycin 13.0 Imaging: cxr 05/31 - ett above chet, central line in place, RLL density similar to yesterday, possible left retrocardiac density now, overall difficult image due to body habitus cxr 06/01 - ett above chet, left IJ central line in place, no PTX, mild pulm congestion L>R, ?maybe some more infiltrate on left lower lobe? cxr 06/02 - ett above chet, left IJ central line in place, similar left sided retrocardiac infiltrate? small effusion left side cxr 06/07 - ett above chet, left IJ cathetor, patchy bilateral infiltrates, no effusion/consolidation present. Assessment:60y M w/pmhx Obesity hypoventilation syndrome, Atrial flutter on Xarelto, Diastolic LV dysfunction, CAD, PVD s/p bilateral metatarsal amputation , h/o PE, HTN, s/p PM/AICD, COPD, JAIDEN, chronic home O2 2L, CKD 2/3; brought in from rehab for acute hypoxia and fevers; found to be lethargic, hypoxic, with new cellulitus on inner thighs. -Acute on Chronic Hypoxic respiratory failure -Acute on chronic hypercapneic respiratory failure, improved -Staph Aureus Pneumonia, HCAP -Severe sepsis -IZABELLA on CKD, pre-renal azotemia/septic ATN -fungal infection groin -morbid obesity -obesity hypoventilation syndrome -Atrial Flutter Plan: Neuro- awake, restarted low dose propofol due to discomfort. prn fentanyl for pain and discomfort also. asp prec; neuro checks as per protocol; daily sedation weaning; maintain raas -1. Encephelopathy yesterday/post extubation 2 days prior, given lactulose for elevated ammonia, last dose today. CVS- remains off pressors. appears euvolemic from clinical exam. off IVF now. Blood cx negative, positive resp culture for MRSA. Vancomycin IV (day 10). Rivaroxaban to be held today due to IZABELLA, restart tomorrow if IZABELLA improved further, no bleeding noted. Cont lopressor via ngt. Resp- Failed extubation trial 2 days back. CXR patchy infiltrates. on APRV now and appears comfortable/sync'ed with vent/oxygenating well. Secretions are decreased now via suctioning as per nursing/RT. Will discuss with family about weaning tomorrow again and extubation to NIV given body habitus/JAIDEN, but will need to clarify DNR/DNI status. Want to avoid tracheostomy as it will further diminish quality of life in this patient. prn duoneb. pulm toilet. keep o2 sat> 92%. ID-febrile. will thakur culture again, blood/sputum. On Vancomycin, pharmacy dosing via protocol, last trough 13, redosed today AM. Will advise to keep Trough levels close to 15 so we dont cause more IZABELLA. No hemodyn change, no expansion of abx yet. Diarrhea+ but from lactulose. GI- GI prophylaxis with pepcid. NGT feeds. Loose stools from lactulose. Ammonia elevated earlier, mental status improved now. Renal- IZABELLA improved again now. Septic/vancomycin induced/pre-renal cause? Concentrated urine. Off IVF now. Replete K as needed. guzmán in place. Heme-baseline anemia. Rivaroxaban will be held today; SCDs to be placed on. No bleeding noted. Endo-fingersticks as needed. Musculsk-none Wounds-IV abx, wound care. topical nystatin to groin/thighs Nutrition- tube feeds DVT prophylaxis: rivaroxaban held, SCDs GI prophylaxis: pepcid Central Line: left ij 05/30 Arterial Line: none Guzmán Cathetor: yes Disposition: ICU for respiratory failure, MRSA pneumonia, severe sepsis Anticipated duration of stay >2 days Code Status: Full code Total Critical Care time is 40 minutes, excluding procedures/teaching Edgardo Hercules MD Food Analyst (Electronically Signed)
[2016-06-09 07:22] LABS: Calcium 9.4 mg/dL (8.6-10.3); EGFR African American 50.4 (>60); EGFR Non-African American 39.2 (>60); Magnesium 3.2 mg/dL (1.9-2.7); Phosphorus 4.6 mg/dL (2.5-5.0); Potassium 3.5 mmol/L (3.5-5.0)
[2016-06-09] MEDS: LACTULOSE* 30 ML UDC NG TUBE SCH (07:39)
[2016-06-09] MEDS: Acetaminophen ADULT LIQ* 650 MG/20.3 ML UDC PO PRN (07:40)
[2016-06-09] MEDS: Aspirin EC Low Dose* 81 MG TAB.EC PO SCH (07:40)
[2016-06-09] MEDS: Famotidine SUSP* 40 MG/5 ML ORAL.SUSP NG TUBE SCH (07:40)
[2016-06-09] MEDS: Pregabalin CAP(*) 100 MG PO SCH ×3 (07:40→21:05)
[2016-06-09] MEDS: Metoprolol Tartrate TAB* 50 mg G TUBE SCH ×2 (07:40→21:05)
[2016-06-09] MEDS: Nystatin TOP POWDER* 15 GM BTL TOPICAL SCH ×3 (07:41→21:04)
[2016-06-09] MEDS: Propofol* 100 ML IV SCH ×2 (08:05→20:07)
[2016-06-09] MEDS ORDERED: Vancomycin 1500 MG IV - x ONCE IVPB ONE ×2 (09:00)
[2016-06-09] MEDS ORDERED: Rivaroxaban TAB(*) 15 MG PO SCH (09:00)
[2016-06-09 09:51] LABS: Hematocrit 30 % (42-52); Hemoglobin 9.5 g/dl (14.0-18.0); Mean Corpuscular HGB Conc 31 g/dl (31-36); Mean Corpuscular Hemoglobin 28 pg (27-31); Mean Corpuscular Volume 89 fL (80-94); Mean Platelet Volume 12 um3 (7.4-10.4); Red Blood Count 3.42 10^6/ul (4.0-5.4); Red Cell Distribution Width 20 % (10.5-15); White Blood Count 9.9 10^3/ul (3.5-10.8)
[2016-06-09] MEDS: Tamsulosin CAP* 0.4 MG PO SCH (16:42)
[2016-06-10] MEDS: Chlorhexidine MOUTHWASH 0.12%* 15 ML UDC SWISH SPIT SCH ×6 (02:14→21:52)
[2016-06-10] MEDS: Propofol* 100 ML IV SCH ×4 (02:14→23:12)
[2016-06-10] MEDS ORDERED: Vancomycin Random Level* NOTE FOLLOW UP ONE (06:00)
[2016-06-10 06:20] LABS: Hematocrit 28 % (42-52); Hemoglobin 8.8 g/dl (14.0-18.0); Mean Corpuscular HGB Conc 32 g/dl (31-36); Mean Corpuscular Hemoglobin 27 pg (27-31); Mean Corpuscular Volume 87 fL (80-94); Mean Platelet Volume 12 um3 (7.4-10.4); Red Cell Distribution Width 19 % (10.5-15); White Blood Count 8.7 10^3/ul (3.5-10.8)
[2016-06-10 06:33] LABS: BUN/Creatinine Ratio 43.1 (8-20); Calcium 9.3 mg/dL (8.6-10.3); EGFR African American 54.2 (>60); EGFR Non-African American 42.2 (>60); Potassium 3.2 mmol/L (3.5-5.0)
[2016-06-10] MEDS: Metoprolol Tartrate TAB* 50 mg G TUBE SCH ×2 (07:49→21:28)
[2016-06-10] MEDS: Aspirin Low Dose CHEW TAB* 81 MG PO SCH (07:49)
[2016-06-10] MEDS: Pregabalin CAP(*) 100 MG PO SCH ×3 (07:49→21:28)
[2016-06-10] MEDS: LACTULOSE* 30 ML UDC NG TUBE SCH (07:49)
[2016-06-10] MEDS: Acetaminophen ADULT LIQ* 650 MG/20.3 ML UDC PO PRN (07:49)
[2016-06-10] MEDS: fentaNYL* 50 MCG/ML 2 ML VIAL (100 MCG VIAL) IV SLOW PU PRN ×4 (07:50→22:53)
[2016-06-10] MEDS: Famotidine SUSP* 40 MG/5 ML ORAL.SUSP NG TUBE SCH (07:50)
[2016-06-10] MEDS: Nystatin TOP POWDER* 15 GM BTL TOPICAL SCH ×3 (07:51→21:31)
[2016-06-10] MEDS ORDERED: Potassium Chloride LIQUID* 20 MEQ PACKET PO SCH (08:00)
--- NOTE | 2016-06-10 08:00 | PN ---
Progress Note - Progress Note Note: Progress Note Critical Care 24 hour events/significant events: -remains intubated, awakens easily, on low dose propofol infusion for comfort -tmax 102.5 yesterday, send off blood and respiratory culture again -vanco is still continued -no hemodyn change overnight Vitals: tmax 102.5 Tele - normal sinus rhythm; ectopy a times Vital Signs Temp 100.8 F 06/10/16 04:00 Pulse 67 06/04/16 16:15 Resp 12 06/10/16 06:30 BP 114/55 06/10/16 06:00 Pulse Ox 99 06/10/16 03:30 Intake & Output 06/09/16 06/10/16 06/10/16 18:59 06:59 18:59 Intake Total 1000 2176 Output Total 800 1050 Balance 200 1126 Intake: IVPB 250 vanco 250 Medicated IV 60 212 CC - Propofol/Diprivan 60 212 Tube Feeding 450 1269 Tube Feeding Flush Amount 240 695 Output: Guzmán 800 1050 Tube Feeding Residual 0 Amount Wasted Other: Date of Last Bowel 06/09/16 06/09/2016 Movement # Bowel Movements 2 1 Estimated Stool Amount Large Large O2/Vent: on APRV peak 34, peep 10; sat 100%, 30% Fio2 --> switched to PS 20/8, 30% TV 550-600, RR 18-22, sat 92% Infusions: propofol 5mcg/kg/min Medications: Acetaminophen (Tylenol Adult Liq*) 650 mg PO Q4H PRN PRN Reason: FEVER Last Admin: 06/09/16 07:40 Dose: 650 mg Aspirin (Aspirin Low Dose Tab*) 81 mg PO DAILY [facility] Chlorhexidine Gluconate (Peridex Mouth Wash 0.12%*) 5 ml SWISH SPIT Q4H [facility] Last Admin: 06/10/16 06:01 Dose: 5 ml Famotidine (Pepcid Susp*) 20 mg NG TUBE DAILY [facility] Last Admin: 06/09/16 07:40 Dose: 20 mg Fentanyl Citrate (Fentanyl*) 50 mcg IV SLOW PU Q2H PRN PRN Reason: PAIN Last Admin: 06/09/16 22:14 Dose: 50 mcg Norepinephrine Bitartrate (Levophed 16 Mcg/Ml Premix Bag*) 4,000 mcg in 250 mls @ 7.5 mls/hr IV .INITIAL RATE [facility] PRN Reason: 2 MCG/MIN Last Admin: 05/31/16 10:02 Dose: 26.3 mls/hr Propofol (Diprivan*) 100 mls @ 27.72 mls/hr IV .(Initial Rate) [facility]; 20 MCG/KG/ MIN PRN Reason: Protocol Last Admin: 06/10/16 02:14 Dose: 27.72 mls/hr Lactulose (Lactulose*) 30 ml NG TUBE DAILY [facility] Stop: 06/10/16 09:01 Last Admin: 06/09/16 07:39 Dose: 30 ml Metoprolol Tartrate (Lopressor Tab*) 50 mg G TUBE Q12HR [facility] Last Admin: 06/09/16 21:05 Dose: 50 mg Nystatin (Nystatin Top Powder*) 1 applic TOPICAL TID [facility] Last Admin: 06/09/16 21:04 Dose: 1 applic Pharmacy Consult (Vancomycin Per Pharmacy*) 1 note FOLLOW UP . PRN PRN Reason: PER PROTOCOL Pregabalin (Lyrica Cap(*)) 100 mg PO TID [facility] Last Admin: 06/09/16 21:05 Dose: 100 mg Rivaroxaban (Xarelto(*)) 15 mg PO DAILY [facility] Tamsulosin HCl (Flomax Cap*) 0.4 mg PO 1700 [facility] Last Admin: 06/09/16 16:42 Dose: Not Given Physical Exam: General: intubated, awake, alert, follows commands Head: normocephalic, atraumatic HEENT: no pallor, no icterus, moist mucous membranes Neck: no jvd CVS: normal rate, normal rhythm, no murmur Resp: bilateral air entry, no rhales, no wheeze, rhonchi scattered, no acc muscle use Abdomen: soft, nontender, nondistended, bowel sounds present, obese+ Ext: pulses+, warm, LE is dark/chronic venous changes with mild superficial wounds on left with serous drainage; 1+ edema LE Skin: intact, no breakdown, inner thigh/groin redness improved, left leg superfical wounds, back pressure wounds stage 1/unstageable Neuro: follows commands while intubated, moves all ext. Labs: Laboratory Results - last 24 hr 06/09/16 06/10/16 06/10/16 06:27 06:00 06:00 WBC 9.9 8.7 RBC 3.42 L 3.20 L Hgb 9.5 L 8.8 L Hct 30 L 28 L MCV 89 87 MCH 28 27 MCHC 31 32 RDW 20 H 19 H Plt Count 146 L 125 L MPV 12 H 12 H Neut % (Auto) 78.2 Lymph % (Auto) 11.2 L [place] % (Auto) 8.1 Eos % (Auto) 1.8 Baso % (Auto) 0.7 Absolute Neuts (auto) 7.7 Absolute Lymphs (auto) 1.1 Absolute Monos (auto) 0.8 Absolute Eos (auto) 0.2 Absolute Basos (auto) 0.1 Absolute Nucleated RBC 0.01 Nucleated RBC % 0.1 Sodium 145 Potassium 3.2 L Chloride 101 Carbon Dioxide 36 H Anion Gap 8 BUN 72 H Creatinine 1.67 H Est GFR ( Amer) 54.2 Est GFR (Non-Af Amer) 42.2 BUN/Creatinine Ratio 43.1 H Glucose 175 H Calcium 9.3 Random Vancomycin 06/10/16 06:00 WBC RBC Hgb Hct MCV MCH MCHC RDW Plt Count MPV Neut % (Auto) Lymph % (Auto) [place] % (Auto) Eos % (Auto) Baso % (Auto) Absolute Neuts (auto) Absolute Lymphs (auto) Absolute Monos (auto) Absolute Eos (auto) Absolute Basos (auto) Absolute Nucleated RBC Nucleated RBC % Sodium Potassium Chloride Carbon Dioxide Anion Gap BUN Creatinine Est GFR ( Amer) Est GFR (Non-Af Amer) BUN/Creatinine Ratio Glucose Calcium Random Vancomycin 14.8 Imaging: cxr 05/31 - ett above chet, central line in place, RLL density similar to yesterday, possible left retrocardiac density now, overall difficult image due to body habitus cxr 06/01 - ett above chet, left IJ central line in place, no PTX, mild pulm congestion L>R, ?maybe some more infiltrate on left lower lobe? cxr 06/02 - ett above chet, left IJ central line in place, similar left sided retrocardiac infiltrate? small effusion left side cxr 06/07 - ett above chet, left IJ cathetor, patchy bilateral infiltrates, no effusion/consolidation present. Assessment:60y M w/pmhx Obesity hypoventilation syndrome, Atrial flutter on Xarelto, Diastolic LV dysfunction, CAD, PVD s/p bilateral metatarsal amputation , h/o PE, HTN, s/p PM/AICD, COPD, JAIDEN, chronic home O2 2L, CKD 2/3; brought in from rehab for acute hypoxia and fevers; found to be lethargic, hypoxic, with new cellulitus on inner thighs. -Acute on Chronic Hypoxic respiratory failure -Acute on chronic hypercapneic respiratory failure, improved -Staph Aureus Pneumonia, HCAP -Severe sepsis -IZABELLA on CKD, pre-renal azotemia/septic ATN -fungal infection groin -morbid obesity -obesity hypoventilation syndrome -Atrial Flutter Plan: Neuro- low dose propofol for comfort. prn fentanyl for pain. asp prec; neuro checks as per protocol; daily sedation weaning; maintain raas -1. Encephelopathy seems improved, lactulose po x1 more today scheduled. CVS- remains off pressors. appears with mild volume overload but Na still on higher side. off IVF now. Blood cx negative, positive resp culture for MRSA. Resent sputum cultures, pending. Vancomycin IV (day 11). Rivaroxaban to be restarted today, IZABELLA improved, no bleeding noted. Cont metoprolol 50mg q12h ogt. Resp- on APRV, will try CPAP trial and evaluate how he fares. Now on 20/8 PS, 30 %, TV 550-600, rr 18-22. Secretions less overnight. Need to discuss with family today about plan if extubated, goals of care. Extubation to NIV given body habitus/JAIDEN. Want to avoid tracheostomy as it will further diminish quality of life in this patient. prn duoneb. pulm toilet. keep o2 sat>92%. ID-febrile. pending sputum cx. WBC normal range, no hemodyn change noted. On Vancomycin (day 11), pharmacy dosing via protocol, trough 14 today. Will advise to keep Trough levels close to 15 so we dont cause more IZABELLA. No hemodyn change, no expansion of abx yet. Diarrhea+ but from lactulose. GI- GI prophylaxis with pepcid. NGT feeds. Loose stools from lactulose. Ammonia elevated earlier, mental status improved now. Renal- IZABELLA improved again now. Septic/vancomycin induced/pre-renal cause? Concentrated urine. Off IVF now. Replete K as needed. guzmán in place. Heme-baseline anemia. Rivaroxaban restart today; SCDs to be placed on. No bleeding noted. Endo-fingersticks as needed. Musculsk-none Wounds-IV abx, wound care. topical nystatin to groin/thighs Nutrition- tube feeds DVT prophylaxis: rivaroxaban, SCDs GI prophylaxis: pepcid Central Line: left ij 05/30 Arterial Line: none Guzmán Cathetor: yes Disposition: ICU for respiratory failure, MRSA pneumonia, severe sepsis Anticipated duration of stay >2 days Code Status: Full code Total Critical Care time is 40 minutes, excluding procedures/teaching Edgardo Hercules MD Tire Technician (Electronically Signed)
[2016-06-10] MEDS ORDERED: KCL 20 MEQ/100 ML IVPREMIX* 20 MEQ/100 ML BAG IV ONE (08:02)
[2016-06-10] MEDS ORDERED: Potassium Chloride LIQUID* 20 MEQ PACKET PO ONE (09:00)
[2016-06-10] MEDS ORDERED: Rivaroxaban TAB(*) 15 MG PO SCH (09:00)
[2016-06-10] MEDS ORDERED: Vancomycin 1500 MG IV - x ONCE IVPB ONE ×2 (09:30)
[2016-06-10] MEDS: Rivaroxaban TAB(*) 20 MG TAB PO SCH (10:18)
[2016-06-10] MEDS: Tamsulosin CAP* 0.4 MG PO SCH (16:27)
[2016-06-10] MEDS ORDERED: Metoprolol Tartrate TAB* 50 mg G TUBE SCH (21:36)
[2016-06-11] MEDS: Chlorhexidine MOUTHWASH 0.12%* 15 ML UDC SWISH SPIT SCH ×4 (01:22→15:54)
[2016-06-11] MEDS: Propofol* 100 ML IV SCH ×2 (01:22→06:08)
[2016-06-11] MEDS: fentaNYL* 50 MCG/ML 2 ML VIAL (100 MCG VIAL) IV SLOW PU PRN (03:29)
[2016-06-11] MEDS ORDERED: Vancomycin Random Level* NOTE FOLLOW UP ONE (06:00)
[2016-06-11 06:12] LABS: Hematocrit 29 % (42-52); Mean Corpuscular HGB Conc 32 g/dl (31-36); Mean Corpuscular Hemoglobin 28 pg (27-31); Mean Corpuscular Volume 87 fL (80-94); Mean Platelet Volume 12 um3 (7.4-10.4); Red Blood Count 3.26 10^6/ul (4.0-5.4); Red Cell Distribution Width 20 % (10.5-15); White Blood Count 7.5 10^3/ul (3.5-10.8)
[2016-06-11 06:13] LABS: Comments Flag Yes
[2016-06-11 06:25] LABS: BUN/Creatinine Ratio 43.8 (8-20); Calcium 9.4 mg/dL (8.6-10.3); EGFR African American 63.3 (>60); EGFR Non-African American 49.3 (>60); Magnesium 3.1 mg/dL (1.9-2.7); Phosphorus 4.1 mg/dL (2.5-5.0); Potassium 3.6 mmol/L (3.5-5.0)
[2016-06-11 06:27] LABS: Vancomycin Random 14.1 mcg/mL
[2016-06-11] MEDS ORDERED: Furosemide IV* 10 MG/ML 2 ML VIAL (20 MG) IV SLOW PU ONE (08:05)
--- NOTE | 2016-06-11 08:07 | PN ---
Progress Note - Progress Note Note: Progress Note Critical Care 24 hour events/significant events: -remains intubated, awakens easily, on low dose propofol infusion for comfort -held propofol and feeds this AM for possible weaning/extubation -tolerated PS 20/8 40% for a few hours during the day yesterday, still not much being suctioned via ett Vitals: tmax 100.4 yesterday Tele - normal sinus rhythm Vital Signs Temp 99.0 F 06/11/16 04:00 Pulse 67 06/04/16 16:15 Resp 12 06/11/16 06:00 BP 116/63 06/11/16 06:00 Pulse Ox 99 06/11/16 06:00 Intake & Output 06/10/16 06/11/16 06/11/16 18:59 06:59 18:59 Intake Total 1154 1573 Output Total 600 1325 Balance 554 248 Intake: IV Fluids 30 postassium 30 IVPB 355 postassium 100 vanco 255 Medicated IV 80 326 CC - Propofol/Diprivan 80 326 Tube Feeding 433 817 Tube Feeding Flush Amount 256 430 Output: Guzmán 600 1325 Other: Date of Last Bowel 06/10/16 06/10/2016 Movement # Bowel Movements 2 Estimated Stool Amount Medium O2/Vent: on APRV peak 34, peep 10; sat 100%, 40% Fio2 overnight --> now on PS 20 /8, 40% TV 550-600, sat 97% Infusions: propofol held Medications: Acetaminophen (Tylenol Adult Liq*) 650 mg PO Q4H PRN PRN Reason: FEVER Last Admin: 06/10/16 07:49 Dose: 650 mg Aspirin (Aspirin Low Dose Tab*) 81 mg PO DAILY [facility] Last Admin: 06/10/16 07:49 Dose: 81 mg Chlorhexidine Gluconate (Peridex Mouth Wash 0.12%*) 5 ml SWISH SPIT Q4H [facility] Last Admin: 06/11/16 06:07 Dose: 5 ml Famotidine (Pepcid Susp*) 20 mg NG TUBE DAILY [facility] Last Admin: 06/10/16 07:50 Dose: 20 mg Fentanyl Citrate (Fentanyl*) 50 mcg IV SLOW PU Q2H PRN PRN Reason: PAIN Last Admin: 06/11/16 03:29 Dose: 50 mcg Furosemide (Lasix Iv*) 40 mg IV SLOW PU ONCE ONE Stop: 06/11/16 08:06 Propofol (Diprivan*) 100 mls @ 27.72 mls/hr IV .(Initial Rate) [facility]; 20 MCG/KG/ MIN PRN Reason: Protocol Last Admin: 06/11/16 06:08 Dose: 19 mls/hr Metoprolol Tartrate (Lopressor Tab*) 50 mg G TUBE Q12HR [facility] Nystatin (Nystatin Top Powder*) 1 applic TOPICAL TID [facility] Last Admin: 06/10/16 21:31 Dose: 1 applic Pharmacy Consult (Vancomycin Per Pharmacy*) 1 note FOLLOW UP . PRN PRN Reason: PER PROTOCOL Pregabalin (Lyrica Cap(*)) 100 mg PO TID [facility] Last Admin: 06/10/16 21:28 Dose: 100 mg Rivaroxaban (Xarelto (*)) 20 mg PO DAILY [facility] Last Admin: 06/10/16 10:18 Dose: 20 mg Tamsulosin HCl (Flomax Cap*) 0.4 mg PO 1700 [facility] Last Admin: 06/10/16 16:27 Dose: Not Given Physical Exam: General: intubated, awake, alert, follows commands Head: normocephalic, atraumatic HEENT: no pallor, no icterus, moist mucous membranes Neck: no jvd CVS: normal rate, normal rhythm, no murmur Resp: bilateral air entry, no rhales, no wheeze, rhonchi minimal and scattered, no acc muscle use Abdomen: soft, nontender, nondistended, bowel sounds present, obese+ Ext: pulses+, warm, LE is dark/chronic venous changes with mild superficial wounds on left with serous drainage; 1+ edema LE Skin: inner thigh/groin redness improved, left leg superfical wounds, back pressure wounds stage 1/unstageable, areas of bleeding Neuro: follows commands while intubated, moves all ext. Labs: Laboratory Results - last 24 hr 06/11/16 06/11/16 05:05 05:05 WBC 7.5 RBC 3.26 L Hgb 9.0 L Hct 29 L MCV 87 MCH 28 MCHC 32 RDW 20 H Plt Count 165 MPV 12 H Sodium 143 Potassium 3.6 Chloride 102 Carbon Dioxide 35 H Anion Gap 6 BUN 64 H Creatinine 1.46 H Est GFR ( Amer) 63.3 Est GFR (Non-Af Amer) 49.3 BUN/Creatinine Ratio 43.8 H Glucose 180 H Calcium 9.4 Phosphorus 4.1 Magnesium 3.1 H Random Vancomycin 14.1 Imaging: cxr 05/31 - ett above chet, central line in place, RLL density similar to yesterday, possible left retrocardiac density now, overall difficult image due to body habitus cxr 06/01 - ett above chet, left IJ central line in place, no PTX, mild pulm congestion L>R, ?maybe some more infiltrate on left lower lobe? cxr 06/02 - ett above chet, left IJ central line in place, similar left sided retrocardiac infiltrate? small effusion left side cxr 06/07 - ett above chet, left IJ cathetor, patchy bilateral infiltrates, no effusion/consolidation present. Assessment:60y M w/pmhx Obesity hypoventilation syndrome, Atrial flutter on Xarelto, Diastolic LV dysfunction, CAD, PVD s/p bilateral metatarsal amputation , h/o PE, HTN, s/p PM/AICD, COPD, JAIDEN, chronic home O2 2L, CKD 2/3; brought in from rehab for acute hypoxia and fevers; found to be lethargic, hypoxic, with new cellulitus on inner thighs. -Acute on Chronic Hypoxic respiratory failure -Acute on chronic hypercapneic respiratory failure, improved -Staph Aureus Pneumonia, HCAP -Severe sepsis -IZABELLA on CKD, pre-renal azotemia/septic ATN -fungal infection groin -morbid obesity -obesity hypoventilation syndrome -Atrial Flutter, paroxysmal Plan: Neuro- improved mental status, understands/knods to questions. moves extremities , but weak overall. propofol on hold now. CVS- remains off pressors. appears with mild volume overload but Na. Blood cx negative, positive resp culture for MRSA. Resent sputum cultures, pending. Vancomycin IV (day 12). Rivaroxaban via ngt, IZABELLA improving, no bleeding noted. Cont metoprolol 50mg q12h ogt. Lasix 40mg iv x1 dose this morning. Resp- on APRV overnight, switch to PS 20/8 now and assess after 1-2 hours for extubation trial. Now on 8 PS, 30%, TV 550-600. Secretions less. Discussed with family about extubation trial and need for reintubation if needed and they stated he is a fighter and would not want to let go; when discussed with patient he gave visual cues when asked about reintubation if resp distress worsened after extubation. Lasix 40mg iv x1 now to remove volume. Hold sedation/ feeds. Extubation to NIV given body habitus/JAIDEN. Want to avoid tracheostomy. prn duoneb. pulm toilet. keep o2 sat>92%. ID-less febrile. pending sputum cx. WBC normal range, no hemodyn change noted. On Vancomycin (day 12), pharmacy dosing via protocol, trough 14. Will advise to keep Trough levels close to 15 so we dont cause more IZABELLA. Holding on any broadening of abx coverage yet. Diarrhea less. GI- GI prophylaxis with pepcid. NGT feeds. Loose stools from lactulose. Ammonia elevated earlier, mental status improved now. Renal- IZABELLA improved again now. Septic/vancomycin induced/pre-renal cause? Concentrated urine. Off IVF now. Replete K as needed. Lasix 40mg iv x1 now to unload volume. guzmán in place. Heme-baseline anemia. Rivaroxaban oral 20mg daily. No bleeding noted. Endo-fingersticks as needed. Musculsk-none Wounds-IV abx, wound care. topical nystatin to groin/thighs Nutrition- tube feeds DVT prophylaxis: rivaroxaban GI prophylaxis: pepcid Central Line: left ij 05/30 Arterial Line: none Guzmán Cathetor: yes Disposition: ICU for respiratory failure, MRSA pneumonia, severe sepsis Anticipated duration of stay >2 days Code Status: Full code Total Critical Care time is 40 minutes, excluding procedures/teaching Edgardo Hercules MD Pencils Washer (Electronically Signed)
[2016-06-11] MEDS ORDERED: Potassium Chloride LIQUID* 20 MEQ PACKET NG TUBE ONE (09:00)
[2016-06-11] MEDS: Aspirin Low Dose CHEW TAB* 81 MG PO SCH (09:22)
[2016-06-11] MEDS: Pregabalin CAP(*) 100 MG PO SCH ×4 (09:23→20:02)
[2016-06-11] MEDS: Famotidine SUSP* 40 MG/5 ML ORAL.SUSP NG TUBE SCH (09:23)
[2016-06-11] MEDS: Rivaroxaban TAB(*) 20 MG TAB PO SCH (09:24)
--- NOTE | 2016-06-11 10:52 | PN ---
Progress Note - Progress Note Note: Tolerating PS 20/5 for 2 hours this morning; awake, alert, follows commands, no distress Diuresing after lasix Decision to extubate to NIV; on NIV 20/8, 60%; sat 99%, rr 23, TV 600-700; no distress, follows commands. Good cough, moving all ext. Will continue NIV, wean down Fio2 as tolerated to keep o2 sat>92% Then will decrease peep once fio2 to <= 40%; keep recruitment Can attempt HiFlow with 40LPM alternating with NIV to give a break during the day time; would def keep NIV on during the night time. Edgardo Hercules MD Self Storage Manager
[2016-06-11] MEDS: Vancomycin(*) 750 MG in NS 0.9% 250 ML* 250 ML IVPB SCH ×2 (11:35→22:34)
[2016-06-11] MEDS: Nystatin TOP POWDER* 15 GM BTL TOPICAL SCH ×3 (11:36→22:33)
[2016-06-11] MEDS: Morphine INJ* 2 MG/ML 1 ML SYRINGE IV PRN ×3 (16:15→22:33)
[2016-06-11] MEDS: Tamsulosin CAP* 0.4 MG PO SCH (16:15)
[2016-06-11] MEDS: Metoprolol Tartrate TAB* 50 mg PO SCH (16:16)
[2016-06-12] MEDS: Metoprolol Tartrate TAB* 50 mg PO SCH ×2 (04:07→16:35)
[2016-06-12 05:57] LABS: Hematocrit 29 % (42-52); Hemoglobin 9.1 g/dl (14.0-18.0); Mean Corpuscular HGB Conc 31 g/dl (31-36); Mean Corpuscular Hemoglobin 28 pg (27-31); Mean Corpuscular Volume 89 fL (80-94); Mean Platelet Volume 12 um3 (7.4-10.4); Red Blood Count 3.25 10^6/ul (4.0-5.4); Red Cell Distribution Width 19 % (10.5-15); White Blood Count 5.2 10^3/ul (3.5-10.8)
[2016-06-12 06:17] LABS: BUN/Creatinine Ratio 45.4 (8-20); Calcium 9.1 mg/dL (8.6-10.3); EGFR African American 80.2 (>60); EGFR Non-African American 62.4 (>60); Potassium 3.3 mmol/L (3.5-5.0)
[2016-06-12] MEDS: Rivaroxaban TAB(*) 20 MG TAB PO SCH (07:50)
[2016-06-12] MEDS: Pregabalin CAP(*) 100 MG PO SCH ×3 (07:50→21:15)
[2016-06-12] MEDS: Famotidine TAB* 20 MG PO SCH (07:50)
[2016-06-12] MEDS: Aspirin Low Dose CHEW TAB* 81 MG PO SCH (07:50)
[2016-06-12] MEDS: Morphine INJ* 2 MG/ML 1 ML SYRINGE IV PRN ×3 (07:51→17:28)
[2016-06-12] MEDS: Nystatin TOP POWDER* 15 GM BTL TOPICAL SCH ×2 (07:51→15:06)
[2016-06-12] MEDS ORDERED: Potassium Chlor TAB* 20 MEQ TAB.ER PO ONE (08:43)
[2016-06-12] MEDS ORDERED: Albuterol 2.5 MG/3 ML NEB.SOL* (0.083%) INH PRN (09:00)
--- NOTE | 2016-06-12 09:00 | PN ---
Progress Note - Progress Note Note: Progress Note Critical Care 24 hour events/significant events: -successfully extubated to bipap yesterday; was fully awake, a little confused; switched to NC in the evening and again BiPAP overnight -currently on NC this morning, more talkative, alert, oriented x3; complaints of mild back pain at times. -no sob/cp/n/v/headache/abdpain/diarrhea. -he feels weak, not ready to get out of bed into chair, asking for PT/OT eval. -good cough overnight, bring up secretions/phlegm -very low grade temps noted overnight, less than prior. -good urine output after lasix 40mg x1 given yesterday Vitals: tmax 100.3 yesterday Tele - normal sinus rhythm; some ectopy Vital Signs Temp 97.0 F 06/12/16 03:48 Pulse 67 06/04/16 16:15 Resp 18 06/12/16 08:00 BP 104/49 06/12/16 08:00 Pulse Ox 96 06/12/16 08:02 Intake & Output 06/11/16 06/12/16 06/12/16 18:59 06:59 18:59 Intake Total 378 250 Output Total 2225 950 Balance -1847 -700 Weight 503 lb 12.1 oz Intake: IV Fluids 258 vanco 258 IVPB 250 vanco 250 Oral 120 0 Output: Urine 225 Guzmán 2000 950 O2/Vent: NC 4 L, sat 97%, rr 20; bipap 14/8 as needed in daytime/night. Infusions: heplock Medications: Acetaminophen (Tylenol Adult Liq*) 650 mg PO Q4H PRN PRN Reason: FEVER Last Admin: 06/10/16 07:49 Dose: 650 mg Aspirin (Aspirin Low Dose Tab*) 81 mg PO DAILY [facility] Last Admin: 06/12/16 07:50 Dose: 81 mg Famotidine (Pepcid Tab*) 20 mg PO DAILY [facility] Last Admin: 06/12/16 07:50 Dose: 20 mg Vancomycin HCl 750 mg/ Sodium (Chloride) 250 mls @ 166.667 mls/hr IVPB Q12H [facility] Last Admin: 06/11/16 22:34 Dose: 166.667 mls/hr Potassium Chloride (Potassium Chloride 20 Meq/100 Ml Ivpremix*) 20 meq in 100 mls @ 50 mls/hr IV Q2H [facility] Stop: 06/12/16 12:59 Metoprolol Tartrate (Lopressor Tab*) 50 mg PO Q12H [facility] Last Admin: 06/12/16 04:07 Dose: Not Given Morphine Sulfate (Morphine Inj (Syringe)*) 2 mg IV Q2H PRN PRN Reason: PAIN - MILD TO MODERATE Last Admin: 06/12/16 07:51 Dose: 2 mg Nystatin (Nystatin Top Powder*) 1 applic TOPICAL TID [facility] Last Admin: 06/12/16 07:51 Dose: 1 applic Oxycodone HCl (Roxycodone Tab*) 10 mg PO Q6H PRN PRN Reason: PAIN - MODERATE Pharmacy Consult (Vancomycin Per Pharmacy*) 1 note FOLLOW UP . PRN PRN Reason: PER PROTOCOL Pharmacy Profile Note (Vancomycin Trough Check) 1 note FOLLOW UP ONCE ONE Stop: 06/12/16 09:31 Potassium Chloride (Klor Con Er Tab*) 40 meq PO ONCE ONE Stop: 06/12/16 08:44 Pregabalin (Lyrica Cap(*)) 100 mg PO TID [facility] Last Admin: 06/12/16 07:50 Dose: 100 mg Rivaroxaban (Xarelto (*)) 20 mg PO DAILY [facility] Last Admin: 06/12/16 07:50 Dose: 20 mg Tamsulosin HCl (Flomax Cap*) 0.4 mg PO 1700 [facility] Last Admin: 06/11/16 16:15 Dose: 0.4 mg Physical Exam: General: awake, alert, oriented, no distress Head: normocephalic, atraumatic HEENT: no pallor, no icterus, moist mucous membranes Neck: no jvd, no stridor CVS: tachycardic at times, normal rhythm, no murmur Resp: bilateral air entry, no rhales, no wheeze, rhonchi scattered, no acc muscle use Abdomen: soft, nontender, nondistended, bowel sounds present, obese+ Ext: pulses+, warm, LE is dark/chronic venous changes with mild superficial wounds on left with serous drainage; 1+ edema LE Skin: inner thigh/groin redness improved, left leg superfical wounds, back pressure wounds stage 1/unstageable, areas of bleeding/oozing wounds at times Neuro: oriented, awake, follows commands, not confused; generalized weakness Labs: Laboratory Results - last 24 hr 06/12/16 06/12/16 05:30 05:30 WBC 5.2 RBC 3.25 L Hgb 9.1 L Hct 29 L MCV 89 MCH 28 MCHC 31 RDW 19 H Plt Count 122 L MPV 12 H Sodium 148 H Potassium 3.3 L Chloride 106 Carbon Dioxide 38 H Anion Gap 4 BUN 54 H Creatinine 1.19 H Est GFR ( Amer) 80.2 Est GFR (Non-Af Amer) 62.4 BUN/Creatinine Ratio 45.4 H Glucose 118 H Calcium 9.1 Imaging: cxr 05/31 - ett above ceht, central line in place, RLL density similar to yesterday, possible left retrocardiac density now, overall difficult image due to body habitus cxr 06/01 - ett above chet, left IJ central line in place, no PTX, mild pulm congestion L>R, ?maybe some more infiltrate on left lower lobe? cxr 06/02 - ett above chet, left IJ central line in place, similar left sided retrocardiac infiltrate? small effusion left side cxr 06/07 - ett above chet, left IJ cathetor, patchy bilateral infiltrates, no effusion/consolidation present. Assessment:60y M w/pmhx Obesity hypoventilation syndrome, Atrial flutter on Xarelto, Diastolic LV dysfunction, CAD, PVD s/p bilateral metatarsal amputation , h/o PE, HTN, s/p PM/AICD, COPD, JAIDEN, chronic home O2 2L, CKD 2/3; brought in from rehab for acute hypoxia and fevers; found to be lethargic, hypoxic, with new cellulitus on inner thighs. -Acute on Chronic Hypoxic respiratory failure; improved -Acute on chronic hypercapneic respiratory failure, improved -MRSA Pneumonia, HCAP -Severe sepsis, improving -IZABELLA on CKD, pre-renal azotemia/septic ATN, improving -fungal infection groin -morbid obesity -obesity hypoventilation syndrome -Atrial Flutter, paroxysmal Plan: Neuro- improved mental status. off sedation. prn morphine/oxycodone for pain. generalized weakness from prolonged intubation/sedation/deconditioning. CVS- BP softer overnight but no symptoms, making good urine, warm ext. on lopressor PO. hold lasix today. Will encourage PO intake, IVF as needed. Good urine output with lasix. Na increased. Blood cx negative, positive resp culture for MRSA. Still pending sputum cultures, blood cx seem contaminated with staph organism. Vancomycin IV (day 13). Rivaroxaban PO, IZABELLA improving, no bleeding noted. Cont metoprolol 50mg q12h ogt. Resp- extubated, doing well. Keep on NC in daytime, PRN Bipap daytime, night time Bipap for sure. CXR tomorrow. No resp symptoms, able to clear secretions himself. PRN duoneb. pulm toilet. keep o2 sat>92%. Chest PT if able or flutter valve. ID- low grade temps but improved from days ago. Awaiting on sputum cx but clinically far better now. WBC normal range, no hemodyn change noted. On Vancomycin (day 13), consider 14 day treatment, pharmacy dosing via protocol. Will advise to keep Trough levels close to 15. Last blood cx with staph epi, likely contaminant, no clinical worsening noted. cont current treatment. GI- GI prophylaxis with pepcid. Passed speech/swallow eval this morning, start cardiac diet PO. Off lactulose. Renal- IZABELLA improving; likely Septic/vancomycin induced/pre-renal cause? Concentrated urine again. No lasix today, encourage PO intake with free water/ fluids. Replete K. Had good urine output with lasix yesterday, still some edema LE, will elevate if possible. Reconsider guzmán d/c in next 48 hours if continued improvement and no clinical change. Heme-baseline anemia. Rivaroxaban oral 20mg daily. No bleeding noted. Endo-fingersticks as needed. Musculsk- start PT/OT today. on Bariatric bed now, will try for oob to chair if able in coming days, definitely appears/subjectively deconditioned. Wounds-IV abx, wound care. topical nystatin to groin/thighs Nutrition- cardiac diet DVT prophylaxis: rivaroxaban GI prophylaxis: pepcid Central Line: left ij 05/30; may likely d/c in coming 24 hours, midline/picc line to be placed. Arterial Line: none Guzmán Cathetor: yes Disposition: ICU for respiratory failure, MRSA pneumonia, severe sepsis Anticipated duration of stay >2 days Code Status: Full code Total Critical Care time is 35 minutes, excluding procedures/teaching Edgardo Rana, MD Respiratory Therapy Instructor (Electronically Signed)
[2016-06-12] MEDS ORDERED: Vancomycin Trough Check NOTE FOLLOW UP ONE (09:30)
--- NOTE | 2016-06-12 09:42 | RAD ---
INDICATION: Pneumonia. COMPARISON: Comparison is made with prior studies from June 06, 2016 and June 07, 2016. TECHNIQUE: A portable view of the chest was obtained. FINDINGS: The heart appears moderately enlarged and unchanged. There is a transvenous cardiac pacemaker present. There is a central venous catheter entering from the left jugular approach. The catheter tip projects in the right paratracheal region. The lungs are underinflated. There is diffuse prominence of the interstitial markings suggestive of mild congestive heart failure. No pleural effusion is seen. IMPRESSION: FINDINGS SUGGESTIVE OF MILD CONGESTIVE HEART FAILURE SLIGHTLY IMPROVED.
[2016-06-12] MEDS: Vancomycin(*) 750 MG in NS 0.9% 250 ML* 250 ML IVPB SCH ×2 (10:32→21:15)
[2016-06-12] MEDS: KCL 20 MEQ/100 ML IVPREMIX* 20 MEQ/100 ML BAG IV SCH ×2 (10:33→12:00)
[2016-06-12] MEDS: oxyCODONE TAB* 5 MG TAB PO PRN ×2 (12:39→19:24)
[2016-06-12] MEDS: Tamsulosin CAP* 0.4 MG PO SCH (17:11)
[2016-06-13] MEDS: Metoprolol Tartrate TAB* 50 mg PO SCH ×2 (04:16→15:12)
[2016-06-13] MEDS: Morphine INJ* 2 MG/ML 1 ML SYRINGE IV PRN ×2 (05:57→10:10)
[2016-06-13 06:35] LABS: Hematocrit 28 % (42-52); Hemoglobin 8.9 g/dl (14.0-18.0); Mean Corpuscular HGB Conc 32 g/dl (31-36); Mean Corpuscular Hemoglobin 28 pg (27-31); Mean Corpuscular Volume 88 fL (80-94); Mean Platelet Volume 12 um3 (7.4-10.4); Red Blood Count 3.21 10^6/ul (4.0-5.4); Red Cell Distribution Width 19 % (10.5-15); White Blood Count 4.6 10^3/ul (3.5-10.8)
[2016-06-13 06:50] LABS: Calcium 8.9 mg/dL (8.6-10.3); EGFR Non-African American 80.9 (>60); Potassium 3.7 mmol/L (3.5-5.0)
[2016-06-13] MEDS: Pregabalin CAP(*) 100 MG PO SCH ×3 (08:20→21:08)
[2016-06-13] MEDS: Aspirin Low Dose CHEW TAB* 81 MG PO SCH (08:20)
[2016-06-13] MEDS: Famotidine TAB* 20 MG PO SCH (08:20)
[2016-06-13] MEDS ORDERED: Furosemide IV* 10 MG/ML VIAL (40 MG) IV SLOW PU ONE (08:42)
--- NOTE | 2016-06-13 08:52 | PN ---
Progress Note - Progress Note Note: Progress Note Critical Care 24 hour events/significant events: -has remained on bipap overnight, on NC now -awake, alert, answers questions; confused overnight. seems a little sluggish this morning but is appropriate. doesnt seem confused right now -no resp distress, cough+ and bringing up sputum, no cp/diarrhea/abd pain/n/v/ headache -states pain is still 8/10, oxycodone helps for a little while, back pain}+ -afebrile overnight Vitals: Tele - normal sinus rhythm; some ectopy Vital Signs Temp 99.4 F 06/13/16 07:30 Pulse 68 06/13/16 07:30 Resp 17 06/13/16 07:30 BP 121/68 06/13/16 07:00 Pulse Ox 97 06/13/16 07:30 Intake & Output 06/12/16 06/13/16 06/13/16 18:59 06:59 18:59 Intake Total 1997 1098 Output Total 650 1300 Balance 1348 -202 Weight 506 lb 4.8 oz Intake: IV Fluids 378 348 postassium 100 vanco 278 348 Oral 1620 750 Output: Urine 650 600 Guzmán 700 Tube Feeding Residual 0 Amount Wasted Other: Date of Last Bowel 06/10/2016 Movement O2/Vent: NC 4 L, sat 97%, rr 20; bipap at night/as needed daytime Infusions: heplock Medications: Acetaminophen (Tylenol Adult Liq*) 650 mg PO Q4H PRN PRN Reason: FEVER Last Admin: 06/10/16 07:49 Dose: 650 mg Albuterol (Ventolin 2.5 Mg/3 Ml Neb.Brandy*) 2.5 mg INH Q4H PRN PRN Reason: SOB/WHEEZING Aspirin (Aspirin Low Dose Tab*) 81 mg PO DAILY [facility] Last Admin: 06/13/16 08:20 Dose: 81 mg Famotidine (Pepcid Tab*) 20 mg PO DAILY [facility] Last Admin: 06/13/16 08:20 Dose: 20 mg Furosemide (Lasix Iv*) 40 mg IV SLOW PU ONCE ONE Stop: 06/13/16 08:43 Vancomycin HCl 750 mg/ Sodium (Chloride) 250 mls @ 166.667 mls/hr IVPB Q12H [facility] Last Admin: 06/12/16 21:15 Dose: 166.667 mls/hr Metoprolol Tartrate (Lopressor Tab*) 50 mg PO Q12H [facility] Last Admin: 06/13/16 04:16 Dose: 25 mg Morphine Sulfate (Morphine Inj (Syringe)*) 2 mg IV Q2H PRN PRN Reason: PAIN - MILD TO MODERATE Last Admin: 06/13/16 05:57 Dose: 2 mg Morphine Sulfate (Ms Contin(*)) 15 mg PO Q12H [facility] Nystatin (Nystatin Top Powder*) 1 applic TOPICAL BID [facility] Oxycodone HCl (Roxycodone Tab*) 10 mg PO Q6H PRN PRN Reason: PAIN - MODERATE Last Admin: 06/12/16 19:24 Dose: 10 mg Pharmacy Consult (Vancomycin Per Pharmacy*) 1 note FOLLOW UP . PRN PRN Reason: PER PROTOCOL Pregabalin (Lyrica Cap(*)) 100 mg PO TID [facility] Last Admin: 06/13/16 08:20 Dose: 100 mg Rivaroxaban (Xarelto (*)) 20 mg PO DAILY [facility] Last Admin: 06/12/16 07:50 Dose: 20 mg Tamsulosin HCl (Flomax Cap*) 0.4 mg PO 1700 [facility] Last Admin: 06/12/16 17:11 Dose: 0.4 mg Physical Exam: General: awake, alert, oriented, no distress, a little more sleepy looking but answers all questions. Head: normocephalic, atraumatic HEENT: no pallor, no icterus, moist mucous membranes Neck: no jvd, no stridor CVS: normal rate, normal rhythm, no murmur Resp: bilateral air entry, no rhales, no wheeze, no rhonchi, no acc muscle use Abdomen: soft, nontender, nondistended, bowel sounds present, obese+ Ext: pulses+, warm, LE is dark/chronic venous changes with mild superficial wounds on left with serous drainage; 1+ edema LE bilaterally Skin: inner thigh/groin redness improved, left leg superfical wounds, back pressure wounds stage 1/unstageable, areas of bleeding/oozing wounds at times Neuro: oriented, awake, follows commands Labs: Laboratory Results - last 24 hr 06/12/16 06/13/16 06/13/16 09:21 06:20 06:20 WBC 4.6 RBC 3.21 L Hgb 8.9 L Hct 28 L MCV 88 MCH 28 MCHC 32 RDW 19 H Plt Count 145 L MPV 12 H Sodium 141 Potassium 3.7 Chloride 104 Carbon Dioxide 35 H Anion Gap 2 BUN 38 H Creatinine 0.95 Est GFR ( Amer) 104.0 Est GFR (Non-Af Amer) 80.9 BUN/Creatinine Ratio 40.0 H Glucose 132 H Calcium 8.9 Vancomycin Trough 12.7 Imaging: cxr 05/31 - ett above chet, central line in place, RLL density similar to yesterday, possible left retrocardiac density now, overall difficult image due to body habitus cxr 06/01 - ett above hcet, left IJ central line in place, no PTX, mild pulm congestion L>R, ?maybe some more infiltrate on left lower lobe? cxr 06/02 - ett above chet, left IJ central line in place, similar left sided retrocardiac infiltrate? small effusion left side cxr 06/07 - ett above chet, left IJ cathetor, patchy bilateral infiltrates, no effusion/consolidation present. cxr 06/12 - no significant change noted from prior, no new infiltrates/effusions Assessment:60y M w/pmhx Obesity hypoventilation syndrome, Atrial flutter on Xarelto, Diastolic LV dysfunction, CAD, PVD s/p bilateral metatarsal amputation , h/o PE, HTN, s/p PM/AICD, COPD, JAIDEN, chronic home O2 2L, CKD 2/3; brought in from rehab for acute hypoxia and fevers; found to be lethargic, hypoxic, with new cellulitus on inner thighs. -Acute on Chronic Hypoxic respiratory failure; improved -Acute on chronic hypercapneic respiratory failure, improved -MRSA Pneumonia, HCAP -Severe sepsis, improved -IZABELLA on CKD, pre-renal azotemia/septic ATN, improved -fungal infection groin, improved -morbid obesity -obesity hypoventilation syndrome -Atrial Flutter, paroxysmal Plan: Neuro- intermittent confusion at night, likely just delirium from illness. delirium precautions/re-orientation/mobilization. prn oxycodone for pain, restart morphine ER to be restarted. CVS- Hemodyn stable, not tachy. cont metoprolol po. Replete K 40meq orally. Lasix 40mg iv x1 today to improve edema, will need daily diuretics IV or restart PO torsemide. Vancomycin IV (day 14). Rivaroxaban PO daily for Aflutter , IZABELLA resolved, no bleeding noted.\ Resp- On NC daytime, Bipap at night/PRN daytime. Doing well, good cough, fevers far improved, no resp distress. Will be cautious about opiates. Vancomycin IV ( day 14) to be finished after tonights dose. WIll observe for next 48 hours and see if any change in resp status/secretions/fevers. PRN duoneb. pulm toilet. keep o2 sat>92%. Chest PT if able or flutter valve. ID- last temp 99.8, no further spikes noted. Less secretions but able to cough up. WBC normal, no hemodyn change noted. On Vancomycin (day 14), will d/c after tonight and monitor off abx. Last blood cx with staph epi, likely contaminant, no clinical worsening noted. GI- GI prophylaxis with pepcid. Cardiac diet PO. Off lactulose. Renal- IZABELLA improved; likely Septic/vancomycin induced/pre-renal cause? Lasix 40mg iv x1 today for LE edema/overload. Replete K daily. Restart torsemide PO daily, goal to keep negative balance. Will d/c guzmán tomorrow. Heme-baseline anemia. Rivaroxaban oral 20mg daily. No bleeding noted. Endo-fingersticks as needed. Musculsk- PT/OT. on Bariatric bed now. Appears/subjectively deconditioned. Wounds-IV abx, wound care. topical nystatin to groin/thighs BID Nutrition- cardiac diet DVT prophylaxis: rivaroxaban GI prophylaxis: pepcid Central Line: left ij 05/30, d/c today Arterial Line: none Guzmán Cathetor: yes Disposition: ICU for respiratory failure, MRSA pneumonia, severe sepsis; improved; will consider ICU downgrade in coming 48 hours if remains stable/ further improved. Discharge planning back to custodial care/assisted living facility. Anticipated duration of stay >2 days Code Status: Full code Edgardo Hercules MD Archivist [employer] (Electronically Signed)
[2016-06-13] MEDS ORDERED: Potassium Chlor TAB* 20 MEQ TAB.ER PO ONE (08:57)
[2016-06-13] MEDS: Vancomycin(*) 750 MG in NS 0.9% 250 ML* 250 ML IVPB SCH ×2 (10:09→21:07)
[2016-06-13] MEDS: Morphine TAB Extended Release (*) 15 MG TAB.ER PO SCH ×2 (10:09→21:08)
[2016-06-13] MEDS: Nystatin TOP POWDER* 15 GM BTL TOPICAL SCH ×2 (10:10→21:08)
[2016-06-13] MEDS: Rivaroxaban TAB(*) 20 MG TAB PO SCH (12:23)
[2016-06-13] MEDS: Tamsulosin CAP* 0.4 MG PO SCH (17:58)
[2016-06-14] MEDS: Metoprolol Tartrate TAB* 50 mg PO SCH ×3 (05:12→16:32)
[2016-06-14 05:53] LABS: Hematocrit 29 % (42-52); Hemoglobin 9.2 g/dl (14.0-18.0); Mean Corpuscular HGB Conc 32 g/dl (31-36); Mean Corpuscular Hemoglobin 28 pg (27-31); Mean Corpuscular Volume 88 fL (80-94); Mean Platelet Volume 11 um3 (7.4-10.4); Red Blood Count 3.29 10^6/ul (4.0-5.4); Red Cell Distribution Width 19 % (10.5-15); White Blood Count 4.3 10^3/ul (3.5-10.8)
[2016-06-14] MEDS: Morphine INJ* 2 MG/ML 1 ML SYRINGE IV PRN (06:04)
[2016-06-14 06:07] LABS: BUN/Creatinine Ratio 34.1 (8-20); Calcium 9.1 mg/dL (8.6-10.3); EGFR African American 113.6 (>60); EGFR Non-African American 88.3 (>60); Potassium 3.8 mmol/L (3.5-5.0)
[2016-06-14] MEDS: Aspirin Low Dose CHEW TAB* 81 MG PO SCH (08:03)
[2016-06-14] MEDS: Morphine TAB Extended Release (*) 15 MG TAB.ER PO SCH ×2 (08:05→20:59)
[2016-06-14] MEDS: Famotidine TAB* 20 MG PO SCH (08:05)
[2016-06-14] MEDS: Pregabalin CAP(*) 100 MG PO SCH ×3 (08:05→20:57)
[2016-06-14] MEDS: Nystatin TOP POWDER* 15 GM BTL TOPICAL SCH ×2 (08:06→21:07)
[2016-06-14] MEDS: oxyCODONE TAB* 5 MG TAB PO PRN (08:06)
[2016-06-14] MEDS: Rivaroxaban TAB(*) 20 MG TAB PO SCH (08:06)
[2016-06-14] MEDS ORDERED: Potassium Chlor TAB* 20 MEQ TAB.ER PO ONE (08:55)
--- NOTE | 2016-06-14 08:55 | PN ---
Progress Note - Progress Note Note: Progress Note Critical Care 24 hour events/significant events: -awake, alert this morning; no distress; bipap overnight as normal -on NC now; cough+ with mild productive sputum only -afebrile overnight Vitals: Tele - normal sinus rhythm Vital Signs Temp 99.1 F 06/14/16 08:30 Pulse 75 06/14/16 08:30 Resp 20 06/14/16 08:30 BP 96/40 06/14/16 08:07 Pulse Ox 96 06/14/16 08:30 Intake & Output 06/13/16 06/14/16 06/14/16 18:59 06:59 18:59 Intake Total 1810 1175 Output Total 1500 900 Balance 310 275 Weight 517 lb 10.326 oz Intake: IV Fluids 275 vanco 275 IVPB 250 vanco 250 Oral 1560 900 Output: Urine 1500 Chris 900 O2/Vent: NC 4 L, sat 97%, rr 20; bipap at night/as needed daytime Infusions: heplock Medications: Acetaminophen (Tylenol Adult Liq*) 650 mg PO Q4H PRN PRN Reason: FEVER Last Admin: 06/10/16 07:49 Dose: 650 mg Albuterol (Ventolin 2.5 Mg/3 Ml Neb.Brandy*) 2.5 mg INH Q4H PRN PRN Reason: SOB/WHEEZING Aspirin (Aspirin Low Dose Tab*) 81 mg PO DAILY [facility] Last Admin: 06/14/16 08:03 Dose: 81 mg Famotidine (Pepcid Tab*) 20 mg PO DAILY [facility] Last Admin: 06/14/16 08:05 Dose: 20 mg Metoprolol Tartrate (Lopressor Tab*) 50 mg PO Q12H [facility] Last Admin: 06/14/16 05:20 Dose: Not Given Morphine Sulfate (Morphine Inj (Syringe)*) 2 mg IV Q2H PRN PRN Reason: PAIN - MILD TO MODERATE Last Admin: 06/14/16 06:04 Dose: 2 mg Morphine Sulfate (Ms Contin(*)) 15 mg PO Q12H [facility] Last Admin: 06/14/16 08:05 Dose: 15 mg Nystatin (Nystatin Top Powder*) 1 applic TOPICAL BID [facility] Last Admin: 06/14/16 08:06 Dose: 1 apply Oxycodone HCl (Roxycodone Tab*) 10 mg PO Q6H PRN PRN Reason: PAIN - MODERATE Last Admin: 06/14/16 08:06 Dose: 10 mg Pharmacy Consult (Vancomycin Per Pharmacy*) 1 note FOLLOW UP . PRN PRN Reason: PER PROTOCOL Pregabalin (Lyrica Cap(*)) 100 mg PO TID [facility] Last Admin: 06/14/16 08:05 Dose: 100 mg Rivaroxaban (Xarelto (*)) 20 mg PO DAILY [facility] Last Admin: 06/14/16 08:06 Dose: 20 mg Tamsulosin HCl (Flomax Cap*) 0.4 mg PO 1700 [facility] Last Admin: 06/13/16 17:58 Dose: 0.4 mg Physical Exam: General: awake, alert, oriented, no distress Head: normocephalic, atraumatic HEENT: no pallor, no icterus, moist mucous membranes Neck: no jvd, no stridor CVS: normal rate, normal rhythm, no murmur Resp: bilateral air entry, no rhales, no wheeze, no rhonchi, no acc muscle use Abdomen: soft, nontender, nondistended, bowel sounds present, obese+ Ext: pulses+, warm, LE is dark/chronic venous changes with mild superficial wounds on left with serous drainage; 1+ edema LE bilaterally Skin: inner thigh/groin redness improved, left leg superfical wounds, back pressure wounds stage 1/unstageable, areas of bleeding/oozing wounds at times Neuro: oriented, awake, follows commands Labs: Laboratory Results - last 24 hr 06/14/16 06/14/16 05:31 05:31 WBC 4.3 RBC 3.29 L Hgb 9.2 L Hct 29 L MCV 88 MCH 28 MCHC 32 RDW 19 H Plt Count 150 MPV 11 H Sodium 142 Potassium 3.8 Chloride 103 Carbon Dioxide 34 H Anion Gap 5 BUN 30 H Creatinine 0.88 Est GFR ( Amer) 113.6 Est GFR (Non-Af Amer) 88.3 BUN/Creatinine Ratio 34.1 H Glucose 125 H Calcium 9.1 Imaging: cxr 05/31 - ett above chet, central line in place, RLL density similar to yesterday, possible left retrocardiac density now, overall difficult image due to body habitus cxr 06/01 - ett above chet, left IJ central line in place, no PTX, mild pulm congestion L>R, ?maybe some more infiltrate on left lower lobe? cxr 06/02 - ett above chet, left IJ central line in place, similar left sided retrocardiac infiltrate? small effusion left side cxr 06/07 - ett above chet, left IJ cathetor, patchy bilateral infiltrates, no effusion/consolidation present. cxr 06/12 - no significant change noted from prior, no new infiltrates/effusions Assessment:60y M w/pmhx Obesity hypoventilation syndrome, Atrial flutter on Xarelto, Diastolic LV dysfunction, CAD, PVD s/p bilateral metatarsal amputation , h/o PE, HTN, s/p PM/AICD, COPD, JAIDEN, chronic home O2 2L, CKD 2/3; brought in from rehab for acute hypoxia and fevers; found to be lethargic, hypoxic, with new cellulitus on inner thighs. -Acute on Chronic Hypoxic respiratory failure; improved -Acute on chronic hypercapneic respiratory failure, improved -MRSA Pneumonia, HCAP -Severe sepsis, improved -IZABELLA on CKD, pre-renal azotemia/septic ATN, improved -fungal infection groin, improved -morbid obesity -obesity hypoventilation syndrome -Atrial Flutter, paroxysmal Plan: Neuro- awake, alert. sleepy after the opiates for pain. but answering appropriately. CVS- Hemodyn stable, not tachy. cont metoprolol po. Replete K. Lasix 40mg iv x1 today, start torsemide 40mg po bid as per home regimine. Vancomycin IV course complete (14 days). Rivaroxaban PO daily for Aflutter, IZABELLA resolved, no bleeding noted. Resp- On NC daytime, Bipap at night/PRN daytime. Doing well, good cough, fevers resolved. Cautious watch, no further increase in opiates for pain. seems comfortable now. Vancomycin completed (14 day therapy), observe off abx now. PRN duoneb. pulm toilet. keep o2 sat>92%. Chest PT if able or flutter valve. ID- Afebrile, wbc normal. Completed Vancomycin 06/13 (14 days). Observe off abx now. Resp symptoms improved. GI- GI prophylaxis with pepcid. Cardiac diet PO. Off lactulose. Renal- IZABELLA improved, diuretics continued, lasix IV x1 toda, start torsemide 40mg po bid, goal neg balance. Replete K daily. Heme-baseline anemia. Rivaroxaban oral 20mg daily. No bleeding noted. Endo-fingersticks as needed. Musculsk- PT/OT. on Bariatric bed now. Appears/subjectively deconditioned. Wounds-IV abx, wound care. topical nystatin to groin/thighs BID Nutrition- cardiac diet DVT prophylaxis: rivaroxaban GI prophylaxis: pepcid Central Line: no; right arm midline 06/12 Arterial Line: none Chris Cathetor: yes Disposition: ICU for respiratory failure, MRSA pneumonia, severe sepsis; improved; re-eval for downgrade tomorrow; discharge planning in coming week if remains stable. Anticipated duration of stay >2 days Code Status: Full code Edgardo Hercules MD Physician Assistant (Electronically Signed)
[2016-06-14] MEDS ORDERED: Furosemide IV* 10 MG/ML VIAL (40 MG) IV SLOW PU ONE (09:15)
[2016-06-14] MEDS ORDERED: Magnesium Sulfate 2 GM IV* 2 GM/50 ML BAG IVPB ONE (15:00)
[2016-06-14 16:27] LABS: Magnesium 1.9 mg/dL (1.9-2.7); Potassium 3.5 mmol/L (3.5-5.0)
[2016-06-14] MEDS: Tamsulosin CAP* 0.4 MG PO SCH (16:32)
[2016-06-14] MEDS: Potassium Chlor TAB* 10 MEQ TAB.ER PO SCH ×2 (17:02→20:58)
[2016-06-14] MEDS: Torsemide TAB* 20 MG PO SCH ×2 (20:56→22:41)
[2016-06-14] MEDS: Collagenase 250 MG/GM OINT* 30 GM TOPICAL SCH (21:03)
[2016-06-15] MEDS: Metoprolol Tartrate TAB* 50 mg PO SCH ×2 (05:10→17:00)
[2016-06-15 05:50] LABS: Hematocrit 29 % (42-52); Hemoglobin 9.2 g/dl (14.0-18.0); Mean Corpuscular HGB Conc 32 g/dl (31-36); Mean Corpuscular Hemoglobin 28 pg (27-31); Mean Corpuscular Volume 88 fL (80-94); Mean Platelet Volume 10 um3 (7.4-10.4); Red Blood Count 3.29 10^6/ul (4.0-5.4); Red Cell Distribution Width 19 % (10.5-15); White Blood Count 5.1 10^3/ul (3.5-10.8)
[2016-06-15 06:01] LABS: BUN/Creatinine Ratio 29.2 (8-20); Calcium 9.5 mg/dL (8.6-10.3); EGFR African American 112.1 (>60); EGFR Non-African American 87.2 (>60)
[2016-06-15] MEDS: oxyCODONE TAB* 5 MG TAB PO PRN (06:51)
[2016-06-15] MEDS: Morphine TAB Extended Release (*) 15 MG TAB.ER PO SCH ×2 (09:03→20:41)
[2016-06-15] MEDS: Famotidine TAB* 20 MG PO SCH (09:03)
[2016-06-15] MEDS: Aspirin Low Dose CHEW TAB* 81 MG PO SCH (09:03)
[2016-06-15] MEDS: Potassium Chlor TAB* 10 MEQ TAB.ER PO SCH ×3 (09:03→20:41)
[2016-06-15] MEDS: Pregabalin CAP(*) 100 MG PO SCH ×3 (09:03→20:41)
[2016-06-15] MEDS: Collagenase 250 MG/GM OINT* 30 GM TOPICAL SCH ×2 (09:06→20:41)
[2016-06-15] MEDS: Nystatin TOP POWDER* 15 GM BTL TOPICAL SCH ×2 (09:09→20:42)
[2016-06-15] MEDS: Torsemide TAB* 20 MG PO SCH ×2 (09:11→20:41)
[2016-06-15] MEDS: Rivaroxaban TAB(*) 20 MG TAB PO SCH (09:11)
[2016-06-15] MEDS ORDERED: OXYBUTYNIN 10 MG PO SCH (10:00)
--- NOTE | 2016-06-15 11:19 | PN ---
Progress Note - Progress Note Note: CRITICAL CARE MEDICINE Date: 06/15/16 Time: 930 SUBJECTIVE: Patient seen and examined. PHYSICAL EXAM: Vital Signs: Reviewed. Neurologic: communicating well. HEENT: pupils equal. Sclera anicteric. Trachea midline. 3L Cardiovascular: distant, S1 S2 Respiratory: distant; no wheeze Abdomen: Soft, obese. Extremities: Warm. Chronic dep edema LABS: Reviewed. IMAGING: Reviewed. MEDICATIONS: Reviewed. ASSESSMENT: 60 M Acute on chronic hypoxic and hypercarbic resp failure - attempted extubation and failed within 6 hours. Re-extubated 06/11 and has been tolerating. MRSA pna Septic shock on admission - resolved. IZABELLA on CKD on admission with component of ATN - improving. Aflutter on xarelto OHS Super morbid obesity h/o PE HTN Cardiomyopathy s/p pacer Deconditioning PLAN: Neurologic: gaurang well. chronic narc regimen. Cardiovascular: Perfusing. volume status ok. on his bb. Respiratory: continue bipap qhs and anytime while sleeping. wean O2 during day as able. IS. oob as able. GI: po diet. pepcid Renal/Metabolic: improving. k replacement Infectious Disease: completed abx Hematology: stable. Endocrine: BG ok Musculoskeletal: PT. need to assess his mobility needs as this is the next barrier. Psych/Social: pt in good spirits. social work f/u Supportive and preventative care as ordered. SUP: pepcid VTE prophylaxis: xeralto Chris catheter given critical illness, monitoring needs for accurate assessment of IZABELLA and KDIGO criteria for critically ill patients and to avoid potential harms of urinary retention, skin breakdown/ulcers. Disposition: potential floor soon, and look towards ultimate dispo needs Code Status: Full presently Critical Care Time: 30min FBrad Quintana DO
[2016-06-15] MEDS: Mometasone/Formoter 100/5 MDI INH SCH ×2 (15:25→21:41)
[2016-06-15] MEDS: Tamsulosin CAP* 0.4 MG PO SCH (17:00)
[2016-06-15] MEDS: Morphine INJ* 2 MG/ML 1 ML SYRINGE IV PRN (23:21)
[2016-06-16] MEDS: Metoprolol Tartrate TAB* 50 mg PO SCH ×2 (04:11→15:30)
[2016-06-16 06:42] LABS: Hematocrit 31 % (42-52); Mean Corpuscular HGB Conc 32 g/dl (31-36); Mean Corpuscular Hemoglobin 28 pg (27-31); Mean Corpuscular Volume 88 fL (80-94); Mean Platelet Volume 10 um3 (7.4-10.4); Red Blood Count 3.57 10^6/ul (4.0-5.4); Red Cell Distribution Width 19 % (10.5-15); White Blood Count 5.8 10^3/ul (3.5-10.8)
[2016-06-16 06:57] LABS: BUN/Creatinine Ratio 24.2 (8-20); Calcium 9.8 mg/dL (8.6-10.3); EGFR African American 99.2 (>60); EGFR Non-African American 77.1 (>60); Potassium 3.6 mmol/L (3.5-5.0)
[2016-06-16] MEDS: Potassium Chlor TAB* 10 MEQ TAB.ER PO SCH ×3 (08:17→21:09)
[2016-06-16] MEDS: Aspirin Low Dose CHEW TAB* 81 MG PO SCH (08:17)
[2016-06-16] MEDS: Oxybutynin XL TAB* 5 MG PO SCH (08:17)
[2016-06-16] MEDS: Rivaroxaban TAB(*) 20 MG TAB PO SCH (08:18)
[2016-06-16] MEDS: Collagenase 250 MG/GM OINT* 30 GM TOPICAL SCH ×2 (08:18→21:10)
[2016-06-16] MEDS: Morphine TAB Extended Release (*) 15 MG TAB.ER PO SCH ×2 (08:18→21:08)
[2016-06-16] MEDS: Pregabalin CAP(*) 100 MG PO SCH ×3 (08:18→21:09)
[2016-06-16] MEDS: Famotidine TAB* 20 MG PO SCH (08:18)
[2016-06-16] MEDS: Torsemide TAB* 20 MG PO SCH ×2 (08:19→09:05)
[2016-06-16] MEDS: Nystatin TOP POWDER* 15 GM BTL TOPICAL SCH ×2 (08:19→21:10)
[2016-06-16] MEDS: Mometasone/Formoter 100/5 MDI INH SCH ×2 (09:23→19:36)
[2016-06-16] MEDS: oxyCODONE TAB* 5 MG TAB PO PRN (09:31)
[2016-06-16] MEDS ORDERED: Potassium Chlor TAB* 20 MEQ TAB.ER PO ONE (09:42)
--- NOTE | 2016-06-16 11:18 | PN ---
Progress Note - Progress Note Note: CRITICAL CARE MEDICINE Date: 06/16/16 Time: 1035 SUBJECTIVE: Patient seen and examined. PHYSICAL EXAM: morbidly obese Vital Signs: Reviewed. Neurologic: communicating well. HEENT: pupils equal. Sclera anicteric. Trachea midline. 5L Cardiovascular: distant, S1 S2 Respiratory: distant; no wheeze Abdomen: Soft, obese. Extremities: Warm. Chronic dep edema and skin changes. prior b/l forefoot amps LABS: Reviewed. IMAGING: Reviewed. MEDICATIONS: Reviewed. ASSESSMENT: 60 M Acute on chronic hypoxic and hypercarbic resp failure - attempted extubation 06/07 and failed within 6 hours. Re-extubated 06/11 and has been tolerating with bipap nocturnally and with anytime sleep. MRSA pna - tx 14days post vanco Septic shock on admission - resolved. IZABELLA on CKD on admission and during icu stay with component of ATN - stabilized Aflutter on xarelto chronically. OHS Super morbid obesity h/o PE HTN Cardiomyopathy s/p pacer Deconditioning Sacral decubiti PLAN: doing well. Needs to continue to do more. He expresses understanding that he needs motivation and weight loss. We discussed code status and plans of care. He could not give a real response for code status going forward. Explained the need for bipap going forward. Chronic pain management Disposition needs with social work for back to [facility] soon On torsemide. Back down to daily dosing until adequate po. Replete K. joe. Supportive and preventative care as ordered. SUP: pepcid VTE prophylaxis: xeralto Chris catheter out when mobile and oob routinely. Disposition: floor and dispo needs Code Status: Full presently Critical Care Time: 30min Fady Quintana DO
[2016-06-16] MEDS: Tamsulosin CAP* 0.4 MG PO SCH (17:20)
[2016-06-17] MEDS: Metoprolol Tartrate TAB* 50 mg PO SCH ×2 (04:09→16:32)
[2016-06-17] MEDS: Mometasone/Formoter 100/5 MDI INH SCH ×2 (08:52→19:37)
[2016-06-17 09:41] LABS: Hematocrit 30 % (42-52); Hemoglobin 9.5 g/dl (14.0-18.0); Mean Corpuscular HGB Conc 32 g/dl (31-36); Mean Corpuscular Hemoglobin 28 pg (27-31); Mean Corpuscular Volume 88 fL (80-94); Mean Platelet Volume 10 um3 (7.4-10.4); Red Blood Count 3.36 10^6/ul (4.0-5.4); Red Cell Distribution Width 20 % (10.5-15); White Blood Count 5.7 10^3/ul (3.5-10.8)
[2016-06-17] MEDS: Torsemide TAB* 20 MG PO SCH (09:49)
[2016-06-17] MEDS: Aspirin Low Dose CHEW TAB* 81 MG PO SCH (09:49)
[2016-06-17] MEDS: Potassium Chlor TAB* 10 MEQ TAB.ER PO SCH ×3 (09:50→21:25)
[2016-06-17] MEDS: Morphine TAB Extended Release (*) 15 MG TAB.ER PO SCH ×2 (09:50→21:25)
[2016-06-17] MEDS: Rivaroxaban TAB(*) 20 MG TAB PO SCH (09:51)
[2016-06-17] MEDS: Famotidine TAB* 20 MG PO SCH (09:51)
[2016-06-17] MEDS: Nystatin TOP POWDER* 15 GM BTL TOPICAL SCH ×2 (09:51→21:29)
[2016-06-17] MEDS: Pregabalin CAP(*) 100 MG PO SCH ×3 (09:51→21:25)
[2016-06-17] MEDS: Collagenase 250 MG/GM OINT* 30 GM TOPICAL SCH ×2 (09:51→21:36)
[2016-06-17 09:56] LABS: BUN/Creatinine Ratio 25.8 (8-20); Calcium 10.2 mg/dL (8.6-10.3); EGFR African American 112.1 (>60); EGFR Non-African American 87.2 (>60); Potassium 3.9 mmol/L (3.5-5.0)
--- NOTE | 2016-06-17 12:00 | PN ---
Subjective Date of Service: 06/17/16 Interval History: pt reports he feels much better everyday. He denies SOB, no CP. Denies fevers or chills. Reports good appetite. Denies abdominal pain, N/V. Reports the inside of his thighs are less painful and thinks the cellulitis is resolved Pt reports he has been non-ambulatory for "months and months" and has to be hoyered to chair. Objective Active Medications: Acetaminophen (Tylenol Adult Liq*) 650 mg PO Q4H PRN PRN Reason: FEVER Last Admin: 06/10/16 07:49 Dose: 650 mg Albuterol (Ventolin 2.5 Mg/3 Ml Neb.Brandy*) 2.5 mg INH Q4H PRN PRN Reason: SOB/WHEEZING Aspirin (Aspirin Low Dose Tab*) 81 mg PO DAILY [facility] Last Admin: 06/17/16 09:49 Dose: 81 mg Collagenase (Santyl 250 Mg/Gm Oint*) 1 applic TOPICAL BID [facility] Last Admin: 06/17/16 09:51 Dose: 1 applic Famotidine (Pepcid Tab*) 20 mg PO DAILY [facility] Last Admin: 06/17/16 09:51 Dose: 20 mg Metoprolol Tartrate (Lopressor Tab*) 50 mg PO Q12H [facility] Last Admin: 06/17/16 04:09 Dose: 50 mg Mometasone Furoate/Formoterol Fumar (Dulera 100/5 Mdi*) 2 puff INH BID [facility] Last Admin: 06/17/16 08:52 Dose: 2 puff Morphine Sulfate (Morphine Inj (Syringe)*) 2 mg IV Q2H PRN PRN Reason: PAIN - MILD TO MODERATE Last Admin: 06/15/16 23:21 Dose: 2 mg Morphine Sulfate (Ms Contin(*)) 15 mg PO Q12H [facility] Last Admin: 06/17/16 09:50 Dose: 15 mg Nystatin (Nystatin Top Powder*) 1 applic TOPICAL BID [facility] Last Admin: 06/17/16 09:51 Dose: 1 apply Oxybutynin Chloride (Ditropan Xl Tab*) 10 mg PO DAILY [facility] Last Admin: 06/16/16 08:17 Dose: 10 mg Oxycodone HCl (Roxycodone Tab*) 10 mg PO Q6H PRN PRN Reason: PAIN - MODERATE Last Admin: 06/16/16 09:31 Dose: 10 mg Potassium Chloride (Klor Con Er Tab*) 20 meq PO TID [facility] Last Admin: 06/17/16 09:50 Dose: 20 meq Pregabalin (Lyrica Cap(*)) 100 mg PO TID [facility] Last Admin: 06/17/16 09:51 Dose: 100 mg Rivaroxaban (Xarelto (*)) 20 mg PO DAILY [facility] Last Admin: 06/17/16 09:51 Dose: 20 mg Tamsulosin HCl (Flomax Cap*) 0.4 mg PO 1700 [facility] Last Admin: 06/16/16 17:20 Dose: 0.4 mg Torsemide (Demadex*) 40 mg PO DAILY [facility] Last Admin: 06/17/16 09:49 Dose: 40 mg Vital Signs 06/16/16 06/16/16 06/16/16 12:18 16:00 18:00 Temperature Pulse Rate Respiratory 16 16 Rate Blood Pressure (mmHg) O2 Sat by Pulse 98 Oximetry 06/16/16 06/16/16 06/16/16 19:41 20:00 20:20 Temperature 98.2 F Pulse Rate 77 81 Respiratory 20 20 Rate Blood Pressure 134/66 (mmHg) O2 Sat by Pulse 98 99 Oximetry 06/16/16 06/16/16 06/16/16 21:08 21:09 23:08 Temperature Pulse Rate Respiratory 18 18 18 Rate Blood Pressure (mmHg) O2 Sat by Pulse Oximetry 06/16/16 06/17/16 06/17/16 23:20 04:10 07:30 Temperature 99.2 F 98.4 F Pulse Rate 69 65 69 Respiratory 16 17 Rate Blood Pressure 107/54 112/57 113/53 (mmHg) O2 Sat by Pulse 95 100 99 Oximetry 06/17/16 06/17/16 06/17/16 08:00 08:53 09:50 Temperature Pulse Rate 73 Respiratory 16 18 16 Rate Blood Pressure (mmHg) O2 Sat by Pulse 97 Oximetry 06/17/16 09:51 Temperature Pulse Rate Respiratory 16 Rate Blood Pressure (mmHg) O2 Sat by Pulse Oximetry Oxygen Devices in Use Now: Nasal Cannula Appearance: morbidly obese male laying in bed in NAD. A+Ox3 Eyes: No Scleral Icterus, PERRLA Ears/Nose/Mouth/Throat: NL Teeth, Lips, Gums, Mucous Membranes Moist Neck: NL Appearance and Movements; NL JVP Respiratory: Symmetrical Chest Expansion and Respiratory Effort, Clear to Auscultation Cardiovascular: NL Sounds; No Murmurs; No JVD, RRR, - - 2+ LE edema b/l Abdominal: NL Sounds; No Tenderness; No Distention, - - OBESE Extremities: - - s/p transmetatarsal amputation b/l Skin: - - inner thighs have small area of erythema, does not appear infected. Neurological: NL Sensation Lines/Tubes/Other Access: Clean, Dry and Intact PICC Line Nutrition: Taking PO's Result Diagrams: 06/17/16 09:28 06/17/16 09:28 Additional Lab and Data: Lab Results 05/30/16 05/30/16 05/30/16 Range/Units 10:17 10:17 10:17 WBC 16.5 H (3.5-10.8) 10^3/ul RBC 4.07 (4.0-5.4) 10^6/ul Hgb 11.1 L (14.0-18.0) g/dl Hct 35 L (42-52) % MCV 85 (80-94) fL MCH 27 (27-31) pg MCHC 32 (31-36) g/dl RDW 19 H (10.5-15) % Plt Count 146 L (150-450) 10^3/ul MPV 10 (7.4-10.4) um3 Neut % (Auto) 90.2 H (38-83) % Lymph % (Auto) 3.4 L (25-47) % [place] % (Auto) 6.1 (1-9) % Eos % (Auto) 0 (0-6) % Baso % (Auto) 0.3 (0-2) % Absolute Neuts (auto) 14.9 H (1.5-7.7) 10^3/ul Absolute Lymphs (auto) 0.6 L (1.0-4.8) 10^3/ul Absolute Monos (auto) 1.0 H (0-0.8) 10^3/ul Absolute Eos (auto) 0 (0-0.6) 10^3/ul Absolute Basos (auto) 0 (0-0.2) 10^3/ul Absolute Nucleated RBC 0.03 10^3/ul Nucleated RBC % 0.2 INR (Anticoag Therapy) 1.30 H (0.89-1.11) Sodium 135 (133-145) mmol/L Potassium 3.5 (3.5-5.0) mmol/L Chloride 85 L (101-111) mmol/L Carbon Dioxide 41 H* (22-32) mmol/L Anion Gap 9 (2-11) mmol/L BUN 62 H (6-24) mg/dL Creatinine 1.43 H (0.67-1.17) mg/dL Est GFR ( Amer) 64.9 (>60) Est GFR (Non-Af Amer) 50.4 (>60) BUN/Creatinine Ratio 43.4 H (8-20) Glucose 173 H (70-100) mg/dL Lactic Acid (0.5-2.0) mmol/L Calcium 9.8 (8.6-10.3) mg/dL Total Bilirubin 1.40 H (0.2-1.0) mg/dL AST 15 (13-39) U/L ALT 7 (7-52) U/L Alkaline Phosphatase 30 L (34-104) U/L Troponin I 0.05 H* (<0.04) ng/mL C-Reactive Protein 240.42 H (< 5.00) mg/L B-Natriuretic Peptide ( - 100) pg/mL Total Protein 8.0 (6.4-8.9) g/dL Albumin 3.4 (3.2-5.2) g/dL Globulin 4.6 H (2-4) g/dL Albumin/Globulin Ratio 0.7 L (1-3) Urine Color Urine Appearance Urine pH (5-9) Ur Specific [place] (1.010-1.030) Urine Protein (Negative) Urine Ketones (Negative) Urine Blood (Negative) Urine Nitrate (Negative) Urine Bilirubin (Negative) Urine Urobilinogen (Negative) Ur Leukocyte Esterase (Negative) Urine WBC (Auto) (Absent) Urine RBC (Auto) (Absent) Ur Squamous Epith Cells (Absent) Urine Bacteria (Absent) Hyaline Casts (Absent) Urine Glucose (Negative) 05/30/16 05/30/16 05/30/16 Range/Units 10:17 10:17 12:00 WBC (3.5-10.8) 10^3/ul RBC (4.0-5.4) 10^6/ul Hgb (14.0-18.0) g/dl Hct (42-52) % MCV (80-94) fL MCH (27-31) pg MCHC (31-36) g/dl RDW (10.5-15) % Plt Count (150-450) 10^3/ul MPV (7.4-10.4) um3 Neut % (Auto) (38-83) % Lymph % (Auto) (25-47) % [place] % (Auto) (1-9) % Eos % (Auto) (0-6) % Baso % (Auto) (0-2) % Absolute Neuts (auto) (1.5-7.7) 10^3/ul Absolute Lymphs (auto) (1.0-4.8) 10^3/ul Absolute Monos (auto) (0-0.8) 10^3/ul Absolute Eos (auto) (0-0.6) 10^3/ul Absolute Basos (auto) (0-0.2) 10^3/ul Absolute Nucleated RBC 10^3/ul Nucleated RBC % INR (Anticoag Therapy) (0.89-1.11) Sodium (133-145) mmol/L Potassium (3.5-5.0) mmol/L Chloride (101-111) mmol/L Carbon Dioxide (22-32) mmol/L Anion Gap (2-11) mmol/L BUN (6-24) mg/dL Creatinine (0.67-1.17) mg/dL Est GFR ( Amer) (>60) Est GFR (Non-Af Amer) (>60) BUN/Creatinine Ratio (8-20) Glucose (70-100) mg/dL Lactic Acid 1.2 (0.5-2.0) mmol/L Calcium (8.6-10.3) mg/dL Total Bilirubin (0.2-1.0) mg/dL AST (13-39) U/L ALT (7-52) U/L Alkaline Phosphatase (34-104) U/L Troponin I (<0.04) ng/mL C-Reactive Protein (< 5.00) mg/L B-Natriuretic Peptide 182 H ( - 100) pg/mL Total Protein (6.4-8.9) g/dL Albumin (3.2-5.2) g/dL Globulin (2-4) g/dL Albumin/Globulin Ratio (1-3) Urine Color Yellow Urine Appearance Cloudy Urine pH 5.0 (5-9) Ur Specific [place] 1.011 (1.010-1.030) Urine Protein Negative (Negative) Urine Ketones Negative (Negative) Urine Blood 3+ H (Negative) Urine Nitrate Negative (Negative) Urine Bilirubin Negative (Negative) Urine Urobilinogen Negative (Negative) Ur Leukocyte Esterase 3+ H (Negative) Urine WBC (Auto) 3+(>20/hpf) H (Absent) Urine RBC (Auto) 3+(>10/hpf) H (Absent) Ur Squamous Epith Cells Present H (Absent) Urine Bacteria Absent (Absent) Hyaline Casts Present H (Absent) Urine Glucose Negative (Negative) Microbiology and Other Data: Microbiology 06/09/16 08:46 Aerobic Blood Culture - Final Blood Line Staphylococcus Epidermidis Anaerobic Blood Culture - Final No Growth Day 5 Blood Culture - Final Blood MRSA/MSSA (PCR) - Final Mrsa Negative S.aureus Negative 06/09/16 11:48 Gram Stain - Final Sputum Sputum Culture - Final MRSA Normal [place] 05/31/16 00:30 Gram Stain - Final Sputum Induced Sputum Culture - Final MRSA Normal [place] 05/30/16 14:05 Nasal Screen MRSA (PCR)(GORDY) - Final Nasal Mrsa Positive 05/30/16 14:05 Influenza Types A,B Antigen (GORDY) - Final Nasal Specimen received for Influenza A/B Molecular testing Assess/Plan/Problems-Billing Assessment: 60 yo male with PMH of super morbid obesity, obesity hypoventilation syndrome, aflutter on xarelto, diastolic LV dysfunction, CAD, PVD s/p bilateral metatarsal amputation, h/o PE, HTN, s/p PM/AICD, COPD, JAIDEN on chronic home O2 2L, CKD 2/3 brought from rehab 05/30 for acute hypoxia and fevers , found to be lethargic, hypoxic, septic shock on admission and new cellulitis on inner thighs who was intubated for respiratory failure extubated then re- intubated 6 hours later, found to have MRSA Pneumonia. - Patient Problems (1) Acute and chronic respiratory failure with hypoxia Comment: - acute respiratory failure resolved, chronic at baseline. MRSA pneumonia now s/ p 14 day treatment with Vanco. - per pt his home Cpap is the wrong machine, will call Dr. Valencia to inquire if patient needs a new machine at [facility], [place]. - continue Bipap at night and while napping during the day - Continue PT (2) Severe sepsis Comment: - with septic shock on admission, now resolved. (3) IZABELLA (acute kidney injury) Comment: resolved (4) Cardiomyopathy Comment: s/p pacer EF unknown - TTE unable to evaluate much due to super morbid obesity restart Imdur (5) Cellulitis of thigh Comment: - resolved (6) Diastolic CHF, acute Comment: - appears stable. - continue decrease dose of torsemide (7) Obesity hypoventilation syndrome Comment: Compensated hypercarbia. Continue BiPAP. (8) Atrial flutter Comment: COntinue rivaroxaban, metoprolol. (9) Morbid obesity with BMI of 70 and over, adult Comment: BMI 72.7. (10) Pulmonary embolism Comment: - CTA 2016 showing PE - Continue xarelto. (11) DVT prophylaxis Comment: Continue Xarelto. Status and Disposition: inpatient with acute on chronic resp failure, septic shock. Back to [facility], [place] when medically stable.
[2016-06-17] MEDS: oxyCODONE TAB* 5 MG TAB PO PRN (12:29)
[2016-06-17] MEDS: Oxybutynin XL TAB* 5 MG PO SCH (12:29)
[2016-06-17] MEDS: Tamsulosin CAP* 0.4 MG PO SCH (16:31)
[2016-06-17] MEDS: Acetaminophen ADULT LIQ* 650 MG/20.3 ML UDC PO PRN (23:52)
[2016-06-18] MEDS: Metoprolol Tartrate TAB* 50 mg PO SCH ×2 (04:21→16:07)
[2016-06-18 06:14] LABS: Hematocrit 29 % (42-52); Hemoglobin 9.5 g/dl (14.0-18.0); Mean Corpuscular HGB Conc 33 g/dl (31-36); Mean Corpuscular Hemoglobin 29 pg (27-31); Mean Corpuscular Volume 87 fL (80-94); Mean Platelet Volume 10 um3 (7.4-10.4); Red Blood Count 3.31 10^6/ul (4.0-5.4); Red Cell Distribution Width 20 % (10.5-15); White Blood Count 5.2 10^3/ul (3.5-10.8)
[2016-06-18 06:31] LABS: BUN/Creatinine Ratio 25.8 (8-20); Calcium 10.5 mg/dL (8.6-10.3); EGFR African American 101.5 (>60); EGFR Non-African American 78.9 (>60); Potassium 3.8 mmol/L (3.5-5.0)
[2016-06-18] MEDS: Mometasone/Formoter 100/5 MDI INH SCH ×2 (08:39→19:46)
[2016-06-18] MEDS ORDERED: Citalopram TAB* 20 MG PO SCH (09:00)
[2016-06-18] MEDS: Aspirin Low Dose CHEW TAB* 81 MG PO SCH (09:57)
[2016-06-18] MEDS: Pregabalin CAP(*) 100 MG PO SCH ×3 (09:57→21:33)
[2016-06-18] MEDS: Torsemide TAB* 20 MG PO SCH (09:57)
[2016-06-18] MEDS: Potassium Chlor TAB* 10 MEQ TAB.ER PO SCH ×3 (09:57→21:32)
[2016-06-18] MEDS: Morphine TAB Extended Release (*) 15 MG TAB.ER PO SCH ×2 (09:58→21:32)
[2016-06-18] MEDS: Isosorbide Mononitrate ER TAB* 30 MG PO SCH (09:58)
[2016-06-18] MEDS: Rivaroxaban TAB(*) 20 MG TAB PO SCH (09:58)
[2016-06-18] MEDS: Famotidine TAB* 20 MG PO SCH (09:58)
[2016-06-18] MEDS: Oxybutynin XL TAB* 5 MG PO SCH (09:58)
[2016-06-18] MEDS: Collagenase 250 MG/GM OINT* 30 GM TOPICAL SCH ×2 (09:58→21:40)
[2016-06-18] MEDS: Nystatin TOP POWDER* 15 GM BTL TOPICAL SCH ×2 (09:59→21:40)
--- NOTE | 2016-06-18 14:02 | DCNOTE ---
Subjective Date of Service: 06/18/16 Interval History: Pt reports he is feeling better everyday but continues to feel weak. Reports occasional cough with yellow sputum production but states this is resolving. Denies SOB or CP. No abdominal pain. occasional diarrhea. Denies fever or chills. Agrees with plan for transfer back to [facility] today Objective Active Medications: Acetaminophen (Tylenol Adult Liq*) 650 mg PO Q4H PRN PRN Reason: FEVER Last Admin: 06/17/16 23:52 Dose: 650 mg Albuterol (Ventolin 2.5 Mg/3 Ml Neb.Brandy*) 2.5 mg INH Q4H PRN PRN Reason: SOB/WHEEZING Aspirin (Aspirin Low Dose Tab*) 81 mg PO DAILY [facility] Last Admin: 06/18/16 09:57 Dose: 81 mg Citalopram Hydrobromide (Celexa Tab*) 20 mg PO DAILY [facility] Last Admin: 06/18/16 09:58 Dose: 20 mg Collagenase (Santyl 250 Mg/Gm Oint*) 1 applic TOPICAL BID [facility] Last Admin: 06/18/16 09:58 Dose: 1 applic Famotidine (Pepcid Tab*) 20 mg PO DAILY [facility] Last Admin: 06/18/16 09:58 Dose: 20 mg Isosorbide Mononitrate (Imdur Er Tab*) 30 mg PO DAILY [facility] Last Admin: 06/18/16 09:58 Dose: 30 mg Metoprolol Tartrate (Lopressor Tab*) 50 mg PO Q12H [facility] Last Admin: 06/18/16 04:21 Dose: 50 mg Mometasone Furoate/Formoterol Fumar (Dulera 100/5 Mdi*) 2 puff INH BID [facility] Last Admin: 06/18/16 08:39 Dose: 2 puff Morphine Sulfate (Morphine Inj (Syringe)*) 2 mg IV Q2H PRN PRN Reason: PAIN - MILD TO MODERATE Last Admin: 06/15/16 23:21 Dose: 2 mg Morphine Sulfate (Ms Contin(*)) 15 mg PO Q12H [facility] Last Admin: 06/18/16 09:58 Dose: 15 mg Nystatin (Nystatin Top Powder*) 1 applic TOPICAL BID [facility] Last Admin: 06/18/16 09:59 Dose: 1 apply Oxybutynin Chloride (Ditropan Xl Tab*) 10 mg PO DAILY [facility] Last Admin: 06/18/16 09:58 Dose: 10 mg Oxycodone HCl (Roxycodone Tab*) 10 mg PO Q6H PRN PRN Reason: PAIN - MODERATE Last Admin: 06/17/16 12:29 Dose: 10 mg Potassium Chloride (Klor Con Er Tab*) 20 meq PO TID [facility] Last Admin: 06/18/16 09:57 Dose: 20 meq Pregabalin (Lyrica Cap(*)) 100 mg PO TID [facility] Last Admin: 06/18/16 09:57 Dose: 100 mg Rivaroxaban (Xarelto (*)) 20 mg PO DAILY [facility] Last Admin: 06/18/16 09:58 Dose: 20 mg Tamsulosin HCl (Flomax Cap*) 0.4 mg PO 1700 [facility] Last Admin: 06/17/16 16:31 Dose: 0.4 mg Torsemide (Demadex*) 40 mg PO DAILY [facility] Last Admin: 06/18/16 09:57 Dose: 40 mg Vital Signs 06/17/16 06/17/16 06/17/16 14:29 15:14 15:50 Temperature 98.6 F Pulse Rate 69 Respiratory 18 18 18 Rate Blood Pressure 127/38 (mmHg) O2 Sat by Pulse 97 Oximetry 06/17/16 06/17/16 06/17/16 17:14 19:32 19:33 Temperature Pulse Rate 73 Respiratory 16 18 Rate Blood Pressure (mmHg) O2 Sat by Pulse 97 97 Oximetry 06/17/16 06/17/16 06/17/16 19:35 19:38 20:00 Temperature 98.4 F Pulse Rate 74 73 Respiratory 24 18 18 Rate Blood Pressure 117/54 (mmHg) O2 Sat by Pulse 91 97 Oximetry 06/17/16 06/17/16 06/17/16 21:25 23:25 23:46 Temperature 100.3 F Pulse Rate 72 Respiratory 18 18 Rate Blood Pressure 125/53 (mmHg) O2 Sat by Pulse 100 Oximetry 06/18/16 06/18/16 06/18/16 04:26 08:04 08:42 Temperature 97.8 F Pulse Rate 73 64 78 Respiratory 18 Rate Blood Pressure 119/62 114/57 (mmHg) O2 Sat by Pulse 97 98 96 Oximetry 06/18/16 06/18/16 09:57 09:58 Temperature Pulse Rate Respiratory 16 16 Rate Blood Pressure (mmHg) O2 Sat by Pulse Oximetry Oxygen Devices in Use Now: Nasal Cannula - 2-4L at baseline Appearance: super morbid obesity A+O x3 in NAD Eyes: No Scleral Icterus, PERRLA Ears/Nose/Mouth/Throat: NL Teeth, Lips, Gums, Mucous Membranes Moist Neck: NL Appearance and Movements; NL JVP Respiratory: Symmetrical Chest Expansion and Respiratory Effort, Clear to Auscultation, - - difficult to assess due to obesity, no dyspnea noted Cardiovascular: RRR, - - 1-2+ LE edema b/l Extremities: - - s/p b/l transmetatarsal amputation Neurological: Alert and Oriented x 3 Lines/Tubes/Other Access: Clean, Dry and Intact Peripheral IV Nutrition: Taking PO's Result Diagrams: 06/18/16 05:42 06/18/16 05:42 Additional Lab and Data: Lab Results 05/30/16 05/30/16 05/30/16 Range/Units 10:17 10:17 10:17 WBC 16.5 H (3.5-10.8) 10^3/ul RBC 4.07 (4.0-5.4) 10^6/ul Hgb 11.1 L (14.0-18.0) g/dl Hct 35 L (42-52) % MCV 85 (80-94) fL MCH 27 (27-31) pg MCHC 32 (31-36) g/dl RDW 19 H (10.5-15) % Plt Count 146 L (150-450) 10^3/ul MPV 10 (7.4-10.4) um3 Neut % (Auto) 90.2 H (38-83) % Lymph % (Auto) 3.4 L (25-47) % [place] % (Auto) 6.1 (1-9) % Eos % (Auto) 0 (0-6) % Baso % (Auto) 0.3 (0-2) % Absolute Neuts (auto) 14.9 H (1.5-7.7) 10^3/ul Absolute Lymphs (auto) 0.6 L (1.0-4.8) 10^3/ul Absolute Monos (auto) 1.0 H (0-0.8) 10^3/ul Absolute Eos (auto) 0 (0-0.6) 10^3/ul Absolute Basos (auto) 0 (0-0.2) 10^3/ul Absolute Nucleated RBC 0.03 10^3/ul Nucleated RBC % 0.2 INR (Anticoag Therapy) 1.30 H (0.89-1.11) Sodium 135 (133-145) mmol/L Potassium 3.5 (3.5-5.0) mmol/L Chloride 85 L (101-111) mmol/L Carbon Dioxide 41 H* (22-32) mmol/L Anion Gap 9 (2-11) mmol/L BUN 62 H (6-24) mg/dL Creatinine 1.43 H (0.67-1.17) mg/dL Est GFR ( Amer) 64.9 (>60) Est GFR (Non-Af Amer) 50.4 (>60) BUN/Creatinine Ratio 43.4 H (8-20) Glucose 173 H (70-100) mg/dL Lactic Acid (0.5-2.0) mmol/L Calcium 9.8 (8.6-10.3) mg/dL Total Bilirubin 1.40 H (0.2-1.0) mg/dL AST 15 (13-39) U/L ALT 7 (7-52) U/L Alkaline Phosphatase 30 L (34-104) U/L Troponin I 0.05 H* (<0.04) ng/mL C-Reactive Protein 240.42 H (< 5.00) mg/L B-Natriuretic Peptide ( - 100) pg/mL Total Protein 8.0 (6.4-8.9) g/dL Albumin 3.4 (3.2-5.2) g/dL Globulin 4.6 H (2-4) g/dL Albumin/Globulin Ratio 0.7 L (1-3) Urine Color Urine Appearance Urine pH (5-9) Ur Specific [place] (1.010-1.030) Urine Protein (Negative) Urine Ketones (Negative) Urine Blood (Negative) Urine Nitrate (Negative) Urine Bilirubin (Negative) Urine Urobilinogen (Negative) Ur Leukocyte Esterase (Negative) Urine WBC (Auto) (Absent) Urine RBC (Auto) (Absent) Ur Squamous Epith Cells (Absent) Urine Bacteria (Absent) Hyaline Casts (Absent) Urine Glucose (Negative) 05/30/16 05/30/16 05/30/16 Range/Units 10:17 10:17 12:00 WBC (3.5-10.8) 10^3/ul RBC (4.0-5.4) 10^6/ul Hgb (14.0-18.0) g/dl Hct (42-52) % MCV (80-94) fL MCH (27-31) pg MCHC (31-36) g/dl RDW (10.5-15) % Plt Count (150-450) 10^3/ul MPV (7.4-10.4) um3 Neut % (Auto) (38-83) % Lymph % (Auto) (25-47) % [place] % (Auto) (1-9) % Eos % (Auto) (0-6) % Baso % (Auto) (0-2) % Absolute Neuts (auto) (1.5-7.7) 10^3/ul Absolute Lymphs (auto) (1.0-4.8) 10^3/ul Absolute Monos (auto) (0-0.8) 10^3/ul Absolute Eos (auto) (0-0.6) 10^3/ul Absolute Basos (auto) (0-0.2) 10^3/ul Absolute Nucleated RBC 10^3/ul Nucleated RBC % INR (Anticoag Therapy) (0.89-1.11) Sodium (133-145) mmol/L Potassium (3.5-5.0) mmol/L Chloride (101-111) mmol/L Carbon Dioxide (22-32) mmol/L Anion Gap (2-11) mmol/L BUN (6-24) mg/dL Creatinine (0.67-1.17) mg/dL Est GFR ( Amer) (>60) Est GFR (Non-Af Amer) (>60) BUN/Creatinine Ratio (8-20) Glucose (70-100) mg/dL Lactic Acid 1.2 (0.5-2.0) mmol/L Calcium (8.6-10.3) mg/dL Total Bilirubin (0.2-1.0) mg/dL AST (13-39) U/L ALT (7-52) U/L Alkaline Phosphatase (34-104) U/L Troponin I (<0.04) ng/mL C-Reactive Protein (< 5.00) mg/L B-Natriuretic Peptide 182 H ( - 100) pg/mL Total Protein (6.4-8.9) g/dL Albumin (3.2-5.2) g/dL Globulin (2-4) g/dL Albumin/Globulin Ratio (1-3) Urine Color Yellow Urine Appearance Cloudy Urine pH 5.0 (5-9) Ur Specific [place] 1.011 (1.010-1.030) Urine Protein Negative (Negative) Urine Ketones Negative (Negative) Urine Blood 3+ H (Negative) Urine Nitrate Negative (Negative) Urine Bilirubin Negative (Negative) Urine Urobilinogen Negative (Negative) Ur Leukocyte Esterase 3+ H (Negative) Urine WBC (Auto) 3+(>20/hpf) H (Absent) Urine RBC (Auto) 3+(>10/hpf) H (Absent) Ur Squamous Epith Cells Present H (Absent) Urine Bacteria Absent (Absent) Hyaline Casts Present H (Absent) Urine Glucose Negative (Negative) Microbiology and Other Data: Microbiology 06/09/16 08:46 Aerobic Blood Culture - Final Blood Line Staphylococcus Epidermidis Anaerobic Blood Culture - Final No Growth Day 5 Blood Culture - Final Blood MRSA/MSSA (PCR) - Final Mrsa Negative S.aureus Negative 06/09/16 11:48 Gram Stain - Final Sputum Sputum Culture - Final MRSA Normal [place] 05/31/16 00:30 Gram Stain - Final Sputum Induced Sputum Culture - Final MRSA Normal [place] 05/30/16 14:05 Nasal Screen MRSA (PCR)(GORDY) - Final Nasal Mrsa Positive 05/30/16 14:05 Influenza Types A,B Antigen (GORDY) - Final Nasal Specimen received for Influenza A/B Molecular testing Assess/Plan/Problems-Billing Assessment: 60 yo male with PMH of super morbid obesity, obesity hypoventilation syndrome, aflutter on xarelto, diastolic LV dysfunction, CAD, PVD s/p bilateral metatarsal amputation, h/o PE, HTN, s/p PM/AICD, COPD, JAIDEN on chronic home O2 2L, CKD 2/3 brought from rehab 05/30 for acute hypoxia and fevers , found to be lethargic, hypoxic, septic shock on admission and new cellulitis on inner thighs who was intubated for respiratory failure extubated then re- intubated 6 hours later, found to have MRSA Pneumonia. - Patient Problems (1) Acute and chronic respiratory failure with hypoxia Comment: - acute respiratory failure resolved, chronic at baseline. MRSA pneumonia now s/ p 14 day treatment with Vanco. - Pts Bipap was checked at [facility] and is functioning well. Plan for settings of 26/10. - continue Bipap at night and while napping during the day - Continue PT (2) Severe sepsis Comment: - with septic shock on admission, now resolved. (3) IZABELLA (acute kidney injury) Comment: resolved (4) Cardiomyopathy Comment: s/p pacer EF unknown - TTE unable to evaluate much due to super morbid obesity restart Imdur (5) Cellulitis of thigh Comment: - resolved (6) Diastolic CHF, acute Comment: - appears stable. - continue home dose torsemide, with addition of zaroxlyn Daily weights (7) Obesity hypoventilation syndrome Comment: Compensated hypercarbia. Continue BiPAP. (8) Atrial flutter Comment: COntinue rivaroxaban, metoprolol. (9) Morbid obesity with BMI of 70 and over, adult Comment: BMI 72.7. (10) Pulmonary embolism Comment: - CTA 2016 showing PE - Continue xarelto. (11) DVT prophylaxis Comment: Continue Xarelto. Status and Disposition: inpatient with acute on chronic resp failure, septic shock. Back to [facility] today
[2016-06-18] MEDS: Tamsulosin CAP* 0.4 MG PO SCH (16:07)
[2016-06-18] MEDS: oxyCODONE TAB* 5 MG TAB PO PRN (16:07)
--- NOTE | 2016-06-18 16:53 | DS ---
DATE OF ADMISSION: 05/30/2016. DATE OF DISCHARGE: 06/18/2016. PROVIDER: Jasbir Whalen NP. ATTENDING PHYSICIAN: Dr. Alexander *(report dictated by Jasbir Whalen NP). PRIMARY CARE PROVIDER: Dr. Vernell Baker at [facility]. DISCHARGED TO: [facility]. PRIMARY DIAGNOSES: 1. Acute on chronic respiratory failure with hypoxia requiring intubation, complicated by septic shock, MRSA pneumonia, acute kidney injury. 2. Cellulitis of the inner thighs. 3. Possible questionable lower extremity DVT. 4. Acute on chronic diastolic congestive heart failure. 5. Obesity hypoventilation syndrome. 6. Atrial flutter. SECONDARY DIAGNOSES: 1. Peripheral vascular disease. 2. Status post bilateral metatarsal amputations. 3. History of pulmonary embolism, on Xarelto. 4. Status post pacemaker/AICD placement. 5. COPD. 6. Obstructive sleep apnea. 7. Chronic respiratory failure on 2 liters nasal cannula and home BiPAP. 8. Sacral decubitus. DISCHARGE MEDICATIONS: 1. Aspirin 81 mg p.o. daily. 2. Torsemide 40 mg p.o. b.i.d. at 0900/1700. 3. Tobramycin 0.3 percent ophth one drop both eyes q.4 hours. 4. Senokot S 8.6-50 mg two tabs p.o. b.i.d. 5. Xarelto 20 mg p.o. daily. 6. Ranitidine HCL 150 mg p.o. b.i.d. 7. Metamucil JUANJO one packet p.o. daily. 8. Lyrica 100 mg p.o. t.i.d. 9. Potassium Chloride 20 mEq p.o. daily. 10. Oxycodone HCL 10 mg p.o. q.4 hours prn. 11. Ditropan 5 mg p.o. t.i.d. 12. Nitroglycerin 0.4 mg sublingual q.5 minutes prn. 13. Morphine Sulfate ER 15 mg p.o. q.12 hours, max daily dose 30 mg. 14. Zaroxolyn 2.5 mg p.o. 1600. 15. Losartan 25 mg p.o. daily. 16. Imdur ER 30 mg p.o. daily. 17. Symbicort 160/4.5 two puffs INH b.i.d. 18. Dulcolax EC 5 mg p.o. daily. 19. Acetaminophen 1000 mg p.o. b.i.d. prn. 20. Flomax 0.4 mg p.o. 1700. HISTORY OF PRESENT ILLNESS AND HOSPITAL COURSE: Please see history and physical by Dr. Edgardo Hercules, Insurance Sales Assistant, for full admission details. In summary, this is a 60-year-old male with a past medical history of super morbid obesity hypoventilation syndrome, atrial fibrillation on Xarelto, diastolic LV dysfunction, coronary artery disease, status post pacemaker/AICD placement, PVD with status post bilateral metatarsal amputations, COPD, obstructive sleep apnea , chronic home O2 2 liters with home BiPAP who was sent from [facility] on 05/30/2016 for noted to have O2 saturations in the 70s. On evaluation in the emergency department, he was lethargic, but arousable and was able to give history, but kept falling asleep during conversation. He had no noted respiratory distress on initial admission. There was a reported fever of 102 and a reported rash around his inner thigh/groin area which appeared to be cellulitis. The patient was admitted to the [facility] Service to the ICU with diagnoses of acute on chronic hypoxic respiratory failure, chronic hypercapnia which was noted to be compensated, bilateral thigh/groin cellulitis , acute decompensated LV diastolic heart failure, then quickly developed septic shock with hypotension requiring vasopressors. The patient was started on acute NVI for respiratory support and acute hypoxia, as well as given IV diuretics and started on Cefazolin. Shortly after admission, the patient became more hypotensive and was more hypoxic with increased O2 requirements with intermittent drops in his oxygenation and becoming more lethargic requiring emergent intubation. The patient had an urgent central line was placed and a left IJ as well as an urgent left radial arterial line. On admission, it was noted that the patient was a DNR per [facility] form, but he had earlier stated that he wanted "everything done." The patient stabilized, but the patient was intubated up until 06/07/2016 where he was liberated off the ventilator and was re-intubated approximately six hours later for acute respiratory failure. The patient was then extubated on 06/11/2016. The patient was intubated for a total of 12 days. During that time, it is noted that the gripper attacher spoke to the patient's sister and brother via phone and they were in agreement to liberate him from the ventilator as a DNR/DNI. The patient's course was complicated by MRSA pneumonia in which he did receive a 14 day course of Vancomycin. For approximately ten days of his admission, the patient had fevers between 100 and 103. The patient has been afebrile for many days. It is noted that he had a temperature last night of 100.3, but is afebrile this morning at 97.8. His leukocytosis resolved. His other laboratory data for the last four to five days has been unremarkable. The patient has negative blood cultures on admission. A second set was performed which showed one out of four showed staphylococcus epidermidis which is thought to be a contaminate. As stated above, he grew MRSA from a sputum culture diagnosing him with MRSA pneumonia. On admission, he did have a positive urine culture growing enterococcus faecalis; however, the colony count was only 50 to 75,000. The bacteria is sensitive to Vancomycin in which the patient received an extended course. Mr. Shafer overall has been doing quite well the last week. He was just transferred out of the ICU two days ago. I spoke with gripper attacher Dr. Quintana today, he knows the patient well, and agrees the patient is stable and safe to discharge back to [facility]. The patient agrees with this plan. Overall, the patient has generalized weakness, but has been improving daily. The patient's Chris catheter was removed today and he was able to void. The patient believes that he is back to his baseline minus some increased generalized weakness. The patient denies fevers, chills, reports occasional productive cough with yellow sputum, but reports that this is improving. He reports slight decreased appetite, but no abdominal pain, nausea or vomiting. Reports occasional diarrhea and constipation, but states this is his baseline. The patient has been weaned down between two and four liters nasal cannula, which is around his baseline. Overall, I believe the patient will be much more successful with his rehab transferring back to [facility] as we do have a Sneha that will hold his weight, but we do not currently have a bariatric chair that is large enough. At this time, the patient is not receiving any treatment that he could not receive at [facility] and the patient should continue to have daily rehab services with Physical Therapy. In regards to the patient's inner thigh cellulitis, this appears to have resolved. The patient did undergo a transthoracic echocardiogram; however, due to his body habitus and the patient's history of COPD, the study is quite limited and not much was able to be evaluated. The study reads: Conclusions: "The study is technically limited due to patient's body habitus. The study is technically limited due to the patient's history of COPD. Use of echo enhancement contrast was not helpful. The left ventricle is not well visualized. The right ventricle is not well visualized. A pacemaker wire is visualized in the right ventricle. There is no evidence of aortic stenosis. The tricuspid valve structure is not well visualized. Unable to estimate the right ventricular systolic pressure. The pericardium is not well visualized." CT of the chest without contrast on 05/20/2016: Impression: "Markedly enlarged pulmonary arteries consistent with pulmonary arterial hypertension. There is some airspace disease in the left upper lobe. This may represent atelectasis; however, pneumonia is not totally excluded." The patient has had multiple chest x-rays throughout this hospitalization. His last chest x-ray was 06/12/2016 which read: "Findings suggestive of mild congestive heart failure, slightly improved." Venous Doppler study: Impression: "1. No evidence for right or left lower extremity DVT through the popliteal level distally. 2. Assessment of the infrageniculate calf veins is limited due to body habitus. Suggestion of occlusive thrombosis of one of the paired right peroneal veins. Neither of the right peroneal veins was conspicuous on the prior exam. Only one of the paired posterior tibial was repaired peroneal veins of the left calf could be visualized and appear patent. Thrombosis of the remaining left calf veins is not excluded." DISCHARGE PLAN: 1. The patient is stable for discharge back to [facility]. 2. Follow-up with Dr. Vernell Baker per rehab protocol, ideally in the next 2-3 days. 3. Daily weights. 4. Please note, the patient's Metoprolol was increased during hospitalization from 25 mg daily up to 50 mg p.o. b.i.d. Please monitor heart rate and blood pressure. The patient has been tolerating this dosage. 5. Continue Bipap at night and during naps, settings 26/10 - please note this is a change from what the patient was on prior to admission. TIME SPENT: Approximately 75 minutes were spent on this discharge. JASBIR WHALEN NP CC: Avtar Bishop * [id number]/[facility] #: [id number] KIET
[2016-06-19] MEDS: Metoprolol Tartrate TAB* 50 mg PO SCH (04:14)
--- NOTE | 2016-06-19 07:50 | PN ---
Hospitalist Progress Note Patient was unable to be transported to [facility] yesterday, plan for discharge this morning. No concerns arose overnight. Reviewed vitals and nursing notes. Patient was resting comfortably on BiPAP at the time of evaluation. Full exam was not completed. Please see detailed discharge summary from Joselin Robison NP from 06/18/16.
[2016-06-19 08:34] VITALS: BP 106/48
[2016-06-19] MEDS: Torsemide TAB* 20 MG PO SCH (08:40)
[2016-06-19] MEDS: Mometasone/Formoter 100/5 MDI INH SCH (08:52)
[2016-06-19] MEDS: Isosorbide Mononitrate ER TAB* 30 MG PO SCH (08:54)
[2016-06-19] MEDS: Rivaroxaban TAB(*) 20 MG TAB PO SCH (08:55)
[2016-06-19] MEDS: Pregabalin CAP(*) 100 MG PO SCH (08:55)
[2016-06-19] MEDS: Oxybutynin XL TAB* 5 MG PO SCH (08:55)
[2016-06-19] MEDS: Potassium Chlor TAB* 10 MEQ TAB.ER PO SCH (08:55)
[2016-06-19] MEDS: Famotidine TAB* 20 MG PO SCH (08:56)
[2016-06-19] MEDS: Aspirin Low Dose CHEW TAB* 81 MG PO SCH (08:56)
[2016-06-19] MEDS: Collagenase 250 MG/GM OINT* 30 GM TOPICAL SCH (08:57)
[2016-06-19] MEDS: Nystatin TOP POWDER* 15 GM BTL TOPICAL SCH (08:57)
[2016-06-19] MEDS: Morphine TAB Extended Release (*) 15 MG TAB.ER PO SCH (09:11)
== END 2016-06-19 10:35 | DRG 710 ==
LOC: ED 08:57 → ICU 12:40 → MED 06-16 11:26
PROVIDERS: ADMIT Internal Medicine Critical Care Medicine; ATTEND Hospitalist
PROC: 05HN33Z Insertion of Infusion Device into Left Internal Jugular Vein, Percutaneous Approach (ICD-10-PCS; principal; 2016-05-30)
PROC: 03HC33Z Insertion of Infusion Device into Left Radial Artery, Percutaneous Approach (ICD-10-PCS; 2016-05-30)
PROC: 3E043XZ Introduction of Vasopressor into Central Vein, Percutaneous Approach (ICD-10-PCS; 2016-05-30)
PROC: 0BH17EZ Insertion of Endotracheal Airway into Trachea, Via Natural or Artificial Opening (ICD-10-PCS; 2016-05-30)
PROC: 5A1955Z Respiratory Ventilation, Greater than 96 Consecutive Hours (ICD-10-PCS; 2016-05-30)
PROC: 3E0G76Z Introduction of Nutritional Substance into Upper GI, Via Natural or Artificial Opening (ICD-10-PCS; 2016-06-07)
PROC: 0DH67UZ Insertion of Feeding Device into Stomach, Via Natural or Artificial Opening (ICD-10-PCS; 2016-06-07)
PROC: 5A09557 Assistance with Respiratory Ventilation, Greater than 96 Consecutive Hours, Continuous Positive Airway Pressure (ICD-10-PCS; 2016-06-16)
DX: A41.9 Sepsis, unspecified organism (principal); J96.21 Acute and chronic respiratory failure with hypoxia; N17.0 Acute kidney failure with tubular necrosis; R65.21 Severe sepsis with septic shock; I50.33 Acute on chronic diastolic (congestive) heart failure; J15.212 Pneumonia due to Methicillin resistant Staphylococcus aureus; I42.9 Cardiomyopathy, unspecified; I13.0 Hypertensive heart and chronic kidney disease with heart failure and stage 1 through stage 4 chronic kidney disease, or unspecified chronic kidney disease; L03.115 Cellulitis of right lower limb; J96.22 Acute and chronic respiratory failure with hypercapnia; Z68.45 Body mass index [BMI] 70 or greater, adult; L03.116 Cellulitis of left lower limb; I82.409 Acute embolism and thrombosis of unspecified deep veins of unspecified lower extremity; E66.2 Morbid (severe) obesity with alveolar hypoventilation; I48.92 Unspecified atrial flutter; Z66 Do not resuscitate; I73.9 Peripheral vascular disease, unspecified; J44.9 Chronic obstructive pulmonary disease, unspecified; I48.91 Unspecified atrial fibrillation; I25.10 Atherosclerotic heart disease of native coronary artery without angina pectoris; I27.2 Other secondary pulmonary hypertension; M19.90 Unspecified osteoarthritis, unspecified site; G62.9 Polyneuropathy, unspecified; F32.9 Major depressive disorder, single episode, unspecified; L89.159 Pressure ulcer of sacral region, unspecified stage; N18.2 Chronic kidney disease, stage 2 (mild); B35.6 Tinea cruris; Z89.432 Acquired absence of left foot; Z89.431 Acquired absence of right foot; Z86.711 Personal history of pulmonary embolism; Z95.810 Presence of automatic (implantable) cardiac defibrillator; Z99.81 Dependence on supplemental oxygen; Z79.82 Long term (current) use of aspirin; Z79.01 Long term (current) use of anticoagulants; Z83.3 Family history of diabetes mellitus; Z87.898 Personal history of other specified conditions; Z91.018 Allergy to other foods; Z91.030 Bee allergy status; Z88.2 Allergy status to sulfonamides; Z88.1 Allergy status to other antibiotic agents
CPT/HCPCS: 36415; 36600; 71010; 71250; 80048; 80053; 80202; 81003; 81015; 82140; 82803; 83605; 83735; 83880; 84100; 84132; 84484; 85025; 85027; 85610; 86140; 87040; 87070; 87077; 87086; 87150; 87186; 87205; 87502; 87641; 93005; 93306; 93970; 94002; 94003; 94150; 94640; 94660; 94760; A9270-GY; C8929; J0330; J0690; J1120; J1720; J1940; J2270; J2543; J2704; J2997; J3010; J3370; J3480

== ENCOUNTER 2016-06-20 12:18 | Inpatient (IN) | payer MEDICAID ==
[2016-06-20 14:10] LABS: Hematocrit 30 % (42-52); Hemoglobin 9.8 g/dl (14.0-18.0); Mean Corpuscular HGB Conc 32 g/dl (31-36); Mean Corpuscular Hemoglobin 28 pg (27-31); Mean Corpuscular Volume 87 fL (80-94); Mean Platelet Volume 9 um3 (7.4-10.4); Red Blood Count 3.48 10^6/ul (4.0-5.4); Red Cell Distribution Width 19 % (10.5-15); White Blood Count 4.4 10^3/ul (3.5-10.8)
[2016-06-20 14:16] LABS: Add Diff/Slide Review? Slide Review Added; Comments Flag Yes
--- NOTE | 2016-06-20 14:25 | RAD ---
INDICATION: Short of breath COMPARISON: June 12, 2016 TECHNIQUE: An AP portable view obtained at 1412 hours is submitted. FINDINGS: Bones/Soft Tissues: There are no acute bony findings. There is a left-sided cardiac pacemaker Cardiomediastinal: The cardiac silhouette, central pulmonary vessels, and interstitium are prominent compatible with moderate vascular congestion. Lungs: There are no infiltrates. Pleura: There are small bilateral effusions. Other: None IMPRESSION: VASCULAR CONGESTION, UNCHANGED
[2016-06-20 14:29] LABS: Albumin 2.8 g/dL (3.2-5.2); BUN/Creatinine Ratio 24.2 (8-20); Calcium 9.9 mg/dL (8.6-10.3); EGFR African American 109.3 (>60); Potassium 3.6 mmol/L (3.5-5.0); Total Bilirubin 0.7 mg/dL (0.2-1.0); Total Protein 6.8 g/dL (6.4-8.9)
[2016-06-20 14:33] LABS: Troponin I 0.01 ng/mL (<0.04)
[2016-06-20 14:34] LABS: FIO2 4
[2016-06-20 14:39] LABS: PCO2 Arterial 70 mmHg (35-45)
[2016-06-20 15:28] LABS: Immature Granulocytes 2 % (0-9); Metamyelocytes % 1 % (0-2); Myelocytes % 1 % (0-1); Neutrophil % 78 % (38-83)
--- NOTE | 2016-06-20 15:28 | RAD ---
INDICATION: Altered mental status COMPARISON: January 07, 2016 TECHNIQUE: Noncontrast axial source images were acquired from the skull base to the vertex. FINDINGS: Ventricles/sulci: The ventricles and cisterns are normal in size and configuration for age. Brain parenchyma: There is no focal parenchymal finding, evidence of intracranial mass, or intracranial mass effect. Intracranial hemorrhage:None. Extra-axial spaces: There are no abnormal extra axial fluid collections or evidence of extra-axial mass. Calvarium: There is no calvarial fracture or other calvarial abnormality. Scalp: There is no evidence of scalp or extracalvarial soft tissue abnormality. Paranasal sinuses/mastoid: The paranasal sinuses and mastoid air cells are clear. Other: None. IMPRESSION: No acute intracranial findings
[2016-06-20 15:29] LABS: Basophilic Stippling 1+; Polychromasia 1+
--- NOTE | 2016-06-20 15:33 | ED ---
Rick Murphy Erika, scribed for Codie Chowdary MD on 06/20/16 at 1327 . Complex/Multi-Sys Presentation - HPI Summary HPI Summary: Patient is a 60-year-old male presenting to the ED with a CC of lethargy. Patient nods when asked if he has felt weak and SOB since discharge from the hospital. He was admitted from 05/30/2016-06/19/2016, and had his metoprolol increased during this time. Patient lives at [facility], and they noted he has been pale and diaphoretic. Pulse was 54 there today. Patient is unable to answer questions well. LEVEL 5 CAVEAT - AMS. - History Of Current Complaint Chief Complaint: EDAltMentalStatus Time Seen by Provider: 06/20/16 13:13 Hx Obtained From: Patient, Medical Records Hx From Patient Unobtainable Due To: Altered Mental Status Onset/Duration: Gradual Onset, Lasting Days - 1 day of worse sx, Still Present Timing: Constant Severity Currently: Moderate Alleviating Factor(s): Nothing Associated Signs And Symptoms: Positive: Weakness, SOB, Diaphoresis, Other - Pallor - Allergies/Home Medications Allergies/Adverse Reactions: Allergies Allergy/AdvReac Type Severity Reaction Status Date / Time Apple Allergy Unknown Unknown Verified 06/20/16 13:05 Reaction Details Bee Venom Allergy Unknown Verified 06/20/16 13:05 Reaction Details Black [place] Flavor Allergy Unknown Verified 06/20/16 13:05 Reaction Details Sulfa Antibiotics Allergy Rash Verified 06/20/16 13:05 walnut Allergy Unknown Unknown Uncoded 06/20/16 13:05 Reaction Details bee sting Allergy Unknown Uncoded 06/20/16 13:05 Reaction Details PMH/Surg Hx/FS Hx/Imm Hx Endocrine/Hematology History: Reports: Hx Anticoagulant Therapy - xarelto, Hx Anemia Denies: Hx Diabetes - hypoglycemic, Hx Systemic Lupus Erythematosus Cardiovascular History: Reports: Hx Congestive Heart Failure, Hx Coronary Artery Disease, Hx Deep Vein Thrombosis, Hx Embolism - pulmonary embolism, takes xarelto, Hx Hypercholesterolemia, Hx Hypertension, Hx Pacemaker/ICD, Hx Peripheral Vascular Disease - SSS, Hx Syncope, Other Cardiovascular Problems/ Disorders - cardiac cath Respiratory History: Reports: Hx Chronic Obstructive Pulmonary Disease (COPD) - on 2L home O2, Hx Pneumonia, Hx Pulmonary Embolism, Hx Sleep Apnea, Other Respiratory Problems/Disorders - SLEEP APNEA, ON 2 L O2 @ NIGHT, obesity hypoventilation GI History: Reports: Other GI Disorders - umbilical hernia, stool softener at home, constipation History: Reports: Hx Acute Renal Failure, Hx Kidney Stones, Hx Renal Disease - 3 episodes of renal failure Denies: Hx Dialysis Musculoskeletal History: Reports: Hx Arthritis, Hx Back Problems, Other Musculoskeletal History - bilateral metatarsal amputation Denies: Hx Rheumatoid Arthritis Sensory History: Reports: Hx Contacts or Glasses - [place] [facility] Other Sensory Impairments - Neuropathy in feet Denies: Hx Hearing Aid Opthamlomology History: Reports: Hx Contacts or Glasses - [place] [facility] Other Sensory Impairments - Neuropathy in feet Neurological History: Reports: Hx Headaches, Other Neuro Impairments/Disorders - frequent syncope, pt states possible stroke in past Psychiatric History: Reports: Hx Depression Denies: Hx of Violent Episodes Against Others - Cancer History Hx Chemotherapy: No - Surgical History Surgery Procedure, Year, and Place: Bilateral metatarsal amputations Hx Anesthesia Reactions: No - Immunization History Date of Tetanus Vaccine: PT STATES UNSURE Date of Influenza Vaccine: NONE Infectious Disease History: Yes Infectious Disease History: Reports: Hx of Known/Suspected MRSA Denies: Traveled Outside the [place] in Last 30 Days - Family History Known Family History: Positive: Diabetes - Social History Occupation: Disabled [facility]: [facility] Alcohol Use: None Substance Use Type: Reports: None Substance Use Comment - Amount & Last Used: chronic narcotic use Hx Tobacco Use: No Smoking Status (MU): Never Smoked Tobacco Review of Systems - ROS Summary Review of Systems Summary: LEVEL 5 CAVEAT - AMS Positive: Fatigue, Skin Diaphoresis, Other - Pallor Positive: Shortness Of Breath Positive: Weakness All Other Systems Reviewed And Are Negative: No Physical Exam Triage Information Reviewed: Yes Vital Signs On Initial Exam: Initial Vitals Temp Pulse Resp BP Pulse Ox 97.5 F 44 18 113/64 100 06/20/16 12:32 06/20/16 12:32 06/20/16 12:32 06/20/16 12:32 06/20/16 12:32 Vital Signs Reviewed: Yes Completion Of Physical Exam Limited Due To: Altered Mental Status, Level 5 Appearance: Positive: No Pain Distress, Obese Skin: Positive: Warm, Skin Color Reflects Adequate Perfusion, Dry Eyes: Positive: EOMI, ELENA ENT: Positive: Pharynx normal, TMs normal Neck: Positive: Supple, Nontender Respiratory/Lung Sounds: Positive: Clear to Auscultation, Decreased Breath Sounds - Very. Negative: Rales, Rhonchi, Wheezes Cardiovascular: Positive: Other - Irregularly irregular rhythm. No gallops. Negative: Murmur, Rub Abdomen Description: Positive: Nontender, Soft, Other: - No rebound. Negative: Distended, Guarding Bowel Sounds: Positive: Present Musculoskeletal: Positive: Other - HONG. Negative: Edema Left, Edema Right Neurological: Positive: Other - Not answering questions well Psychiatric: Positive: Affect/Mood Appropriate Diagnostics - Vital Signs Vital Signs Temp Pulse Resp BP Pulse Ox 06/20/16 12:46 97.9 F 44 17 113/64 99 06/20/16 12:32 97.5 F 44 18 113/64 100 - Laboratory Lab Results: Lab Results 06/20/16 06/20/16 06/20/16 Range/Units 13:56 13:56 13:56 WBC 4.4 (3.5-10.8) 10^3/ul RBC 3.48 L (4.0-5.4) 10^6/ul Hgb 9.8 L (14.0-18.0) g/dl Hct 30 L (42-52) % MCV 87 (80-94) fL MCH 28 (27-31) pg MCHC 32 (31-36) g/dl RDW 19 H (10.5-15) % Plt Count 193 (150-450) 10^3/ul MPV 9 (7.4-10.4) um3 Neut % (Auto) 73.5 (38-83) % Lymph % (Auto) 15.5 L (25-47) % [place] % (Auto) 8.6 (1-9) % Eos % (Auto) 1.8 (0-6) % Baso % (Auto) 0.6 (0-2) % Absolute Neuts (auto) 3.2 (1.5-7.7) 10^3/ul Absolute Lymphs (auto) 0.7 L (1.0-4.8) 10^3/ul Absolute Monos (auto) 0.4 (0-0.8) 10^3/ul Absolute Eos (auto) 0.1 (0-0.6) 10^3/ul Absolute Basos (auto) 0 (0-0.2) 10^3/ul Absolute Nucleated RBC 0 10^3/ul Nucleated RBC % 0.1 INR (Anticoag Therapy) 1.27 H (0.89-1.11) APTT 33.4 (26.0-36.3) seconds Patient Temperature ABG pH (7.35-7.45) ABG pCO2 (35-45) mmHg ABG pO2 (80-100) mmHg ABG HCO3 (19-31) mmol/L ABG O2 Saturation (95-98) % ABG Base Excess (-2.0-2.0) Respiration Rate O2 Delivery Device Ventilator Type Vent Mode FiO2 Inspiratory Time PEEP Pressure Support Pressure Control EPAP IPAP BiPAP Sodium 140 (133-145) mmol/L Potassium 3.6 (3.5-5.0) mmol/L Chloride 94 L (101-111) mmol/L Carbon Dioxide 40 H (22-32) mmol/L Anion Gap 6 (2-11) mmol/L BUN 22 (6-24) mg/dL Creatinine 0.91 (0.67-1.17) mg/dL Est GFR ( Amer) 109.3 (>60) Est GFR (Non-Af Amer) 85.0 (>60) BUN/Creatinine Ratio 24.2 H (8-20) Glucose 136 H (70-100) mg/dL Lactic Acid (0.5-2.0) mmol/L Calcium 9.9 (8.6-10.3) mg/dL Total Bilirubin 0.70 (0.2-1.0) mg/dL AST 17 (13-39) U/L ALT 10 (7-52) U/L Alkaline Phosphatase 21 L (34-104) U/L Troponin I 0.01 (<0.04) ng/mL Total Protein 6.8 (6.4-8.9) g/dL Albumin 2.8 L (3.2-5.2) g/dL Globulin 4.0 (2-4) g/dL Albumin/Globulin Ratio 0.7 L (1-3) 06/20/16 06/20/16 Range/Units 13:56 14:30 WBC (3.5-10.8) 10^3/ul RBC (4.0-5.4) 10^6/ul Hgb (14.0-18.0) g/dl Hct (42-52) % MCV (80-94) fL MCH (27-31) pg MCHC (31-36) g/dl RDW (10.5-15) % Plt Count (150-450) 10^3/ul MPV (7.4-10.4) um3 Neut % (Auto) (38-83) % Lymph % (Auto) (25-47) % [place] % (Auto) (1-9) % Eos % (Auto) (0-6) % Baso % (Auto) (0-2) % Absolute Neuts (auto) (1.5-7.7) 10^3/ul Absolute Lymphs (auto) (1.0-4.8) 10^3/ul Absolute Monos (auto) (0-0.8) 10^3/ul Absolute Eos (auto) (0-0.6) 10^3/ul Absolute Basos (auto) (0-0.2) 10^3/ul Absolute Nucleated RBC 10^3/ul Nucleated RBC % INR (Anticoag Therapy) (0.89-1.11) APTT (26.0-36.3) seconds Patient Temperature Not Reportable ABG pH 7.42 (7.35-7.45) ABG pCO2 70 H (35-45) mmHg ABG pO2 77 L (80-100) mmHg ABG HCO3 39.0 H (19-31) mmol/L ABG O2 Saturation 97.2 (95-98) % ABG Base Excess 18.1 H (-2.0-2.0) Respiration Rate Not Reportable O2 Delivery Device Nasal cannula Ventilator Type Not Reportable Vent Mode Not Reportable FiO2 4 Inspiratory Time Not Reportable PEEP Not Reportable Pressure Support Not Reportable Pressure Control Not Reportable EPAP Not Reportable IPAP Not Reportable BiPAP Not Reportable Sodium (133-145) mmol/L Potassium (3.5-5.0) mmol/L Chloride (101-111) mmol/L Carbon Dioxide (22-32) mmol/L Anion Gap (2-11) mmol/L BUN (6-24) mg/dL Creatinine (0.67-1.17) mg/dL Est GFR ( Amer) (>60) Est GFR (Non-Af Amer) (>60) BUN/Creatinine Ratio (8-20) Glucose (70-100) mg/dL Lactic Acid 0.9 (0.5-2.0) mmol/L Calcium (8.6-10.3) mg/dL Total Bilirubin (0.2-1.0) mg/dL AST (13-39) U/L ALT (7-52) U/L Alkaline Phosphatase (34-104) U/L Troponin I (<0.04) ng/mL Total Protein (6.4-8.9) g/dL Albumin (3.2-5.2) g/dL Globulin (2-4) g/dL Albumin/Globulin Ratio (1-3) Result Diagrams: 06/20/16 13:56 06/20/16 13:56 Lab Statement: Any lab studies that have been ordered have been reviewed, and results considered in the medical decision making process. - Radiology CXR Radiology Interpretation Completed By: Radiologist - IMPRESSION: VASCULAR CONGESTION, UNCHANGED - CT CT Brain CT Interpretation Completed By: Radiologist - IMPRESSION: No acute intracranial findings - EKG 12:41 EKG Interpretation: Ventricular bigeminy. Poor R wave progression. Inferior Q waves EKG Comparison: Other - Ventricular bigeminy is new compared to prior Complex Multi-Symp Course/Dx Course Of Treatment: Case discussed with Dr. Dumont his hr of 40 may be due to the bigeminy beat not being picked up or maybe due to his increased dose of metoprolol. Pt's abg is concerning for his chronic but high c02 and his lower than normal [address] either vapotherm or bipap - Diagnoses Provider Diagnoses: Hypoventilation - Physician Notifications Discussed Care Of Patient With: Dr. Dumont (hospitalist) at 15:00 - discussed patient care. will be admitted Discharge - Discharge Plan Condition: Guarded Disposition: ADMITTED TO [facility] Referrals: Vernell Baker MD [Primary Care Provider] - The documentation as recorded by the Rick parham Erika accurately reflects the service I personally performed and the decisions made by me, Codie Chowdary MD.
[2016-06-20] MEDS ORDERED: Albuterol 2.5 MG/3 ML NEB.SOL* (0.083%) INH PRN (15:47)
[2016-06-20] MEDS ORDERED: Ondansetron INJ* 2 MG/ML VIAL IV PRN (15:47)
[2016-06-20] MEDS ORDERED: Acetaminophen TAB* 325 MG PO PRN (15:47)
[2016-06-20] MEDS ORDERED: oxyCODONE TAB* 5 MG TAB PO PRN (16:00)
[2016-06-20 17:07] LABS: Urine Bacteria 1+ (Absent); Urine Bilirubin Negative (Negative); Urine Glucose Negative (Negative); Urine Nitrite Positive (Negative)
[2016-06-20] MEDS: cefTRIAXone VIAL(*) 1,000 MG in NS 0.9% 50 ML* 50 ML IVPB SCH (18:14)
[2016-06-20] MEDS: Tobramycin 0.3% OPHTH.SOL* 5 ML BOT (regular eye drops) BOTH EYES SCH (18:15)
[2016-06-20] MEDS: Metolazone TAB* 5 MG PO SCH (18:18)
[2016-06-20] MEDS: Tamsulosin CAP* 0.4 MG PO SCH (18:18)
[2016-06-20] MEDS: Torsemide TAB* 20 MG PO SCH (18:18)
[2016-06-20] MEDS: Mometasone/Formoter 200/5 MDI INH SCH (19:47)
[2016-06-20] MEDS: Albuterol/Ipratropium NEB.SOL* Albuterol 2.5 MG/Ipratropium 0.5 MG 3 ML INH SCH (19:49)
[2016-06-20] MEDS: oxyCODONE SR TAB(*) 10 MG TAB.SR PO SCH (20:46)
[2016-06-20] MEDS: Pregabalin CAP(*) 100 MG PO SCH (20:49)
[2016-06-20] MEDS: Senna TAB PO SCH (20:49)
[2016-06-20] MEDS: Metoprolol Tartrate TAB* 50 mg PO SCH (20:50)
[2016-06-20] MEDS: Oxybutynin TAB* 5 MG PO SCH (20:50)
[2016-06-20] MEDS: Famotidine TAB* 20 MG PO SCH (20:50)
[2016-06-20] MEDS: Docusate CAP* 100 MG PO SCH (20:50)
--- NOTE | 2016-06-20 23:32 | HP ---
HISTORY AND PHYSICAL: DATE OF ADMISSION: 06/20/16 PRIMARY CARE PROVIDER: Dr. Paz from [facility]. ATTENDING PHYSICIAN IN THE HOSPITAL: Giulia Castelan MD* (report dictated by Donaldo Luque NP) CHIEF COMPLAINT: Altered mental status. HISTORY OF PRESENT ILLNESS: Mr. Shafer is a 60-year-old male patient well known to the hospital service. He was recently just here for a 21-day hospitalization requiring intubation, re-intubation, had [id number] respiratory failure, also had an MRSA pneumonia. He was treated and he had a prolonged stay, eventually got to the point where he was liberated from the intubation, was BiPAP dependent when he slept and took naps. He got to the point where he was stable for discharge from [facility]. He actually went there yesterday. Unfortunately though in the last 24 hours, there was concern at [facility] as he appeared to be a little bit more drowsy and lethargic than when he initially presented. In discussion with the patient, he says actually in the last 2 to 3 days, he has been feeling a little bit more tired, a little more weak and drowsy. He says that he has not had any chills or fevers to his knowledge. He denied having any abdominal pain, chest pain, or shortness of breath and he has not had any recurrence of cough. He says he just feels tired and drowsy and really vague on his symptoms. He says that to his knowledge, he has not had any change in medications. He does state that he has been trying to attempt physical therapy. He attempted physical therapy at [facility] for a short time he was there. In reviewing the notes from [facility], they were concerned for possible stroke, although they did not document any weakness to one side or any focal weakness and the patient says that he has not had any slurred speech. He just feels again tired. He denied having any weakness to one side or facial droop or any dizziness and denied having any syncopal episode. No palpitations. He was evaluated in the ER. There was concern for the weakness. In addition to this, he was on noted on the initial EKG that revealed bigeminy with a heart rate around 40. His heart rate now is running around 70 with occasional PVC. Because of this, hospital service was asked to evaluate on admission. PAST MEDICAL HISTORY: Significant for: 1. Chronic respiratory failure. 2. History of cellulitis. 3. DVT. 4. PE. 5. CHF. 6. Hypoventilation syndrome. 7. Peripheral vascular disease. 8. A-flutter. 9. COPD. 10. Decubitus ulcers. 11. Nephrolithiasis. PAST SURGICAL HISTORY: He has had bilateral metatarsal amputations and he has had a pacemaker placement. HOME MEDICATIONS: According to the list that was sent over from [facility] include: 1. Maalox 30 cc every 6 hours as needed. 2. Tylenol 1000 mg every 12 hours as needed. 3. Symbicort 2 puffs inhaled b.i.d. 4. Dulcolax 5 mg p.o. daily. 5. Aspirin 81 mg daily. 6. DuoNeb 1 neb inhaled t.i.d. 7. Cozaar 25 mg daily. 8. Imdur 30 mg daily. 9. Celexa 20 mg daily. 10. Calcium 1000 mg p.o. every 6 hours as needed. 11. Morphine 15 mg p.o. every 12 hours. 12. Lopressor 50 mg p.o. b.i.d. 13. Zaroxolyn 2.5 mg daily. 14. MiraLAX 17 g daily. 15. Oxycodone 10 mg every 4 hours as needed. 16. Ditropan 5 mg p.o. t.i.d. 17. Nitro 0.4 mg sublingual q.5 minutes x3 for chest pain. 18. Zantac 150 mg p.o. b.i.d. 19. Metamucil 1 packet daily. 20. Lyrica 100 mg p.o. t.i.d. 21. Potassium 20 mEq p.o. daily. 22. Tobramycin 1 drop both eyes every 4 hours. 23. Flomax 0.4 mg p.o. at 1700 hours. 24. Senna 2 tabs p.o. b.i.d. 25. Xarelto 20 mg daily. 26. Benadryl 50 mg every 6 hours as needed. 27. Demadex 40 mg p.o. twice a day. ALLERGIES TO MEDICATIONS: Include SULFA. He is also allergic to WALNUT, BEE STINGS, BLACK WALNUT FLAVOR, BEE VENOM, and APPLES. FAMILY HISTORY: His mother had CVA. Father's history was reviewed and noncontributory. SOCIAL HISTORY: He does not smoke. He does not drink. Surrogate decision maker is his brother, J Luis. REVIEW OF SYSTEMS: There is no documented fever. He denied any significant weight change. No double vision. No ear discharge. No rhinorrhea. No sore throat. No thyroid enlargement. Denied having any chest pain. There was no orthopnea. No nocturnal dyspnea. There was no abdominal pain. No nausea. No vomiting. No dysuria. No frequency. No loss of consciousness. No pruritus. No skin ulcerations. Review of 14 systems completed, all others negative. PHYSICAL EXAMINATION GENERAL: At this time, Mr. Shafer is a chronically ill-appearing patient. He is morbidly obese. He is sitting in the ER stretcher. VITAL SIGNS: Reveals blood pressure 116/74, pulse 69, respirations 18, O2 sat 95%, and temperature 97.9. HEENT: Head: Atraumatic. Eyes: Pupils react to light. Sclerae are anicteric and not pale. NECK: Supple. Throat: Oral mucosa appeared to be dry. He did have some white mucus in his mouth on exam. Otherwise, there was no erythema noted in his throat. LUNGS: Clear to auscultation. No wheezes, rales, or rhonchi. HEART: Sounds S1, S2. Regular rate and rhythm. No murmurs, rubs, or gallops. ABDOMEN: Soft, flat, and nontender. Bowel sounds present. EXTREMITIES: He has again bilateral transmetatarsal amputation. He has chronic brawny discoloration of the lower extremities. He had no erythema noted. He is moving all 4 extremities with 5/5 strength. NEUROLOGIC: He is awake, he is alert, and he does appear to be drowsy, but he answers questions appropriately. He knows where he is. He knows his name. He remembered who I was and I have been caring for him in several months and he also did know where he was. Again, he knew his name. His speech was clear. His tongue was midline. He had no gross focal deficits. SKIN: Intact. DIAGNOSTIC STUDIES/LAB DATA: Today revealed a WBC of 4.4, RBC of 3.48, hemoglobin 9.8, hematocrit of 30, and platelet count of 193. The INR was 1.27 and PTT of 33.4. Blood gases revealed a pH of 7.42, pCO2 70, pO2 77, bicarb of 39. His sodium was 140, potassium 3.6, chloride of 94, bicarb 40, BUN of 22, creatinine of 0.91, glucose 136, lactic 0.9, and calcium 9.9. Total bili 0.7, AST 17, ALT 10, and alk phos 21. Troponin 0.01. Albumin of 2.8. He had a chest x-ray obtained today, which showed vascular congestion unchanged. Brain CT showed no acute intracranial findings. He had an EKG again today which did show a normal sinus rhythm with bigeminy, no ST elevations or T-wave inversions. Previous EKG did not show bigeminy, but it is known from his previous hospitalization that he did go in and out of bigeminy. He had multiple PVCs. He is currently now in sinus rhythm with a rate of 70. Old medical records were reviewed. ASSESSMENT AND PLAN: Mr. Shafer is a 60-year-old male patient with multiple medical problems coming in to the ER today with complaints of altered mental status. He will be admitted under observation status for: 1. Altered mental status: Etiology is unclear. He certainly appears to be maintaining well now closer to his baseline. I am going to check a urine; perhaps, the low heart rate contributed. He does have a history of a pacemaker. We could get that interrogated at some point possibly in the outpatient setting. I will write for it here. We will place him on telemetry and will continue to follow and if he does have a urinary tract infection, certainly we will go ahead and if we need to, we will go ahead and start him on antibiotics. 2. Chronic respiratory failure: Continue his oxygen and BiPAP while he is sleeping. 3. History of cellulitis: Not an active issue. 4. History of DVT and PE: Continue Xarelto. 5. Congestive heart failure: Continue medications as prescribed. He appears to be euvolemic. 6. Hypoventilation syndrome: Again, BiPAP when at rest. 7. Peripheral vascular disease: Continue his clinical medical regimen. He is on aspirin. We will continue this for now. 8. History of A-flutter: He appears to be in sinus rhythm. Continue Xarelto. 9. Chronic obstructive pulmonary disease: We will continue his nebs as prescribed. 10. History of decubitus ulcer: We will turn the position every 2 hours. 11. DVT prophylaxis: He is high risk. He will be placed on Xarelto. 12. Code status: He is a do not resuscitate. 13. Fluids, electrolytes, and nutrition: He can have a heart healthy diet. TIME SPENT: Time spent on the admission was 60 minutes; greater than half the time was spent [id number] with the patient obtaining my history and physical, the other half time is spent going over the plan of care with the patient and implementing plan of care. I discussed the plan of care with my attending, Dr. Castelan. She is in agreement. DONALDO LUQUE NP CC: Dr. Paz from [facility] * [id number]/[facility] #: [id number] KIET
[2016-06-21] MEDS: Tobramycin 0.3% OPHTH.SOL* 5 ML BOT (regular eye drops) BOTH EYES SCH ×7 (01:38→21:32)
[2016-06-21 05:23] LABS: Hematocrit 30 % (42-52); Hemoglobin 9.7 g/dl (14.0-18.0); Mean Corpuscular HGB Conc 32 g/dl (31-36); Mean Corpuscular Hemoglobin 28 pg (27-31); Mean Corpuscular Volume 87 fL (80-94); Mean Platelet Volume 9 um3 (7.4-10.4); Red Blood Count 3.44 10^6/ul (4.0-5.4); Red Cell Distribution Width 20 % (10.5-15); White Blood Count 5.3 10^3/ul (3.5-10.8)
[2016-06-21 05:38] LABS: BUN/Creatinine Ratio 24.4 (8-20); Calcium 9.9 mg/dL (8.6-10.3); EGFR African American 110.7 (>60); EGFR Non-African American 86.1 (>60); Potassium 3.4 mmol/L (3.5-5.0)
[2016-06-21] MEDS: Albuterol/Ipratropium NEB.SOL* Albuterol 2.5 MG/Ipratropium 0.5 MG 3 ML INH SCH ×2 (08:29→13:09)
[2016-06-21] MEDS: Mometasone/Formoter 200/5 MDI INH SCH (08:30)
[2016-06-21] MEDS: Polyethylene Glycol 3350* 17 GM PACKET PO SCH (08:51)
[2016-06-21] MEDS: Psyllium PAK PO SCH (08:51)
[2016-06-21] MEDS: Torsemide TAB* 20 MG PO SCH ×2 (08:54→17:25)
[2016-06-21] MEDS: oxyCODONE SR TAB(*) 10 MG TAB.SR PO SCH ×2 (08:54→21:31)
[2016-06-21] MEDS: Metoprolol Tartrate TAB* 50 mg PO SCH ×2 (08:54→21:31)
[2016-06-21] MEDS: Rivaroxaban TAB(*) 20 MG TAB PO SCH (08:54)
[2016-06-21] MEDS: Isosorbide Mononitrate ER TAB* 30 MG PO SCH (08:56)
[2016-06-21] MEDS: Aspirin EC Low Dose* 81 MG TAB.EC PO SCH (08:56)
[2016-06-21] MEDS: Docusate CAP* 100 MG PO SCH ×2 (09:00→21:30)
[2016-06-21] MEDS ORDERED: Potassium Chlor TAB* 10 MEQ TAB.ER PO SCH (09:00)
[2016-06-21] MEDS ORDERED: Citalopram TAB* 20 MG PO SCH (09:00)
[2016-06-21] MEDS: Oxybutynin TAB* 5 MG PO SCH ×3 (09:00→21:31)
[2016-06-21] MEDS: Pregabalin CAP(*) 100 MG PO SCH ×3 (09:00→21:30)
[2016-06-21] MEDS: Bisacodyl EC TAB* 5 MG PO SCH (09:00)
[2016-06-21] MEDS: Senna TAB PO SCH ×2 (09:01→21:30)
[2016-06-21] MEDS: Famotidine TAB* 20 MG PO SCH ×2 (09:01→21:31)
[2016-06-21] MEDS: Losartan TAB* 25 MG PO SCH (09:01)
[2016-06-21] MEDS ORDERED: Potassium Chlor TAB* 20 MEQ TAB.ER PO ONE (09:35)
--- NOTE | 2016-06-21 10:29 | PN ---
Subjective Date of Service: 06/21/16 Interval History: HOSPITALIST PROGRESS NOTE Patient seen and examined at bedside. He offers no complaints at this time. As per RN, patient has been constipated > 1 week. Denies abdominal pain. Had mild dysuria earlier today. Family History: Unchanged from Admission Social History: Unchanged from Admission Past Medical History: Unchanged from Admission Objective Active Medications: Acetaminophen (Tylenol Tab*) 650 mg PO Q4H PRN PRN Reason: FEVER/PAIN Last Admin: 06/21/16 02:25 Dose: 650 mg Albuterol (Ventolin 2.5 Mg/3 Ml Neb.Brandy*) 2.5 mg INH Q2H PRN PRN Reason: SOB/WHEEZING Albuterol/Ipratropium (Duoneb (Albuterol 2.5 Mg/Ipratropium 0.5 Mg)) 1 neb INH RT.TID [facility] Last Admin: 06/21/16 08:29 Dose: Not Given Aspirin (Aspirin Ec Low Dose*) 81 mg PO DAILY [facility] Last Admin: 06/21/16 08:56 Dose: 81 mg Bisacodyl (Dulcolax Ec Tab*) 5 mg PO DAILY [facility] Last Admin: 06/21/16 09:00 Dose: 5 mg Citalopram Hydrobromide (Celexa Tab*) 20 mg PO DAILY [facility] Last Admin: 06/21/16 08:56 Dose: 20 mg Docusate Sodium (Colace Cap*) 100 mg PO BID [facility] Last Admin: 06/21/16 09:00 Dose: 100 mg Famotidine (Pepcid Tab*) 20 mg PO BID [facility] Last Admin: 06/21/16 09:01 Dose: 20 mg Ceftriaxone Sodium 1,000 mg/ (Sodium Chloride) 50 mls @ 200 mls/hr IVPB Q24H [facility] Last Admin: 06/20/16 18:14 Dose: 200 mls/hr Isosorbide Mononitrate (Imdur Er Tab*) 30 mg PO DAILY [facility] Last Admin: 06/21/16 08:56 Dose: 30 mg Losartan Potassium (Cozaar Tab*) 25 mg PO DAILY [facility] Last Admin: 06/21/16 09:01 Dose: 25 mg Metolazone (Zaroxolyn Tab*) 2.5 mg PO 1630 [facility] Last Admin: 06/20/16 18:18 Dose: Not Given Metoprolol Tartrate (Lopressor Tab*) 50 mg PO BID [facility] Last Admin: 06/21/16 08:54 Dose: 50 mg Mometasone Furoate/Formoterol Fumar (Dulera 200/5 Mdi*) 2 puff INH BID [facility] PRN Reason: Protocol Last Admin: 06/21/16 08:30 Dose: Not Given Ondansetron HCl (Zofran Inj*) 4 mg IV Q6H PRN PRN Reason: NAUSEA Oxybutynin Chloride (Ditropan Tab*) 5 mg PO TID [facility] Last Admin: 06/21/16 09:00 Dose: 5 mg Oxycodone HCl (Roxycodone Tab*) 5 mg PO Q4H PRN PRN Reason: chronic pain Oxycodone HCl (Oxycontin(*)) 10 mg PO Q12HR [facility] Last Admin: 06/21/16 08:54 Dose: 10 mg Polyethylene Glycol/Electrolytes (Miralax*) 17 gm PO DAILY [facility] Last Admin: 06/21/16 08:51 Dose: 17 gm Potassium Chloride (Klor Con Er Tab*) 40 meq PO DAILY [facility] Pregabalin (Lyrica Cap(*)) 100 mg PO TID [facility] Last Admin: 06/21/16 09:00 Dose: 100 mg Psyllium Hydrophilic Mucilloid (Metamucil Elan*) 1 pkt PO DAILY [facility] Last Admin: 06/21/16 08:51 Dose: 1 pkt Rivaroxaban (Xarelto (*)) 20 mg PO DAILY [facility] Last Admin: 06/21/16 08:54 Dose: 20 mg Senna (Senokot Tab*) 2 tab PO BID [facility] Last Admin: 06/21/16 09:01 Dose: 2 tab Tamsulosin HCl (Flomax Cap*) 0.4 mg PO 1700 [facility] Last Admin: 06/20/16 18:18 Dose: Not Given Tobramycin Sulfate (Tobramycin 0.3% Ophth.Brandy*) 1 drop BOTH EYES Q4HR [facility] Last Admin: 06/21/16 09:01 Dose: Not Given Torsemide (Demadex*) 40 mg PO 0900,1700 [facility] Last Admin: 06/21/16 08:54 Dose: 40 mg Vital Signs 06/21/16 06/21/16 06/21/16 08:11 08:32 08:33 Temperature 98.2 F Pulse Rate 35 66 Respiratory 18 18 Rate Blood Pressure 119/52 (mmHg) O2 Sat by Pulse 96 96 95 Oximetry Oxygen Devices in Use Now: Nasal Cannula Appearance: Super morbid obese male lying in bed in NAD. Eyes: No Scleral Icterus Ears/Nose/Mouth/Throat: Mucous Membranes Moist Neck: Trachea Midline Respiratory: Symmetrical Chest Expansion and Respiratory Effort, - - BS+ bilaterally distant, no added sounds Cardiovascular: RRR - Normal S1 and S2 Abdominal: - - Morbid obese, NT, BS+ Extremities: - - Bilateral TMA, chronic skin changes with hyperkeratosis Neurological: Alert and Oriented x 3, NL Muscle Strength and Tone Lines/Tubes/Other Access: Clean, Dry and Intact Peripheral IV Nutrition: Taking PO's Result Diagrams: 06/21/16 05:10 06/21/16 05:10 Assess/Plan/Problems-Billing Assessment: Mr. Shafer is a 60 yo male with PMH of super morbid obesity with BMI 71, obesity hypoventilation syndrome, aflutter on xarelto, diastolic LV dysfunction , CAD, PVD s/p bilateral metatarsal amputation, h/o PE, HTN, s/p PM/AICD, COPD, JAIDEN on chronic home O2 2L, CKD 2/3, recent admission from 05/30 to 06/19 for acute hypoxia, septic shock, cellulitis, MRSA pneumonia requiring intubationx2, sent back to ED due to lethargy. - Patient Problems (1) Lethargy Comment: - Suspect source this time is likely UTI. - Had low grade temperature 100.1 last night. - Urinalysis is positive, awaiting culture. - Continue Ceftriaxone. - CO2 is elevated, but pH is normal - patient educated about importance of BiPAP. (2) Chronic respiratory failure Comment: - Continue BiPAP. (3) History of pulmonary embolism Comment: - Continue Xarelto. (4) CHF (congestive heart failure) Comment: - Stable. - Continue Losartan and diuretics. (5) Hypokalemia Comment: - Replete. (6) DVT prophylaxis Comment: - Xarelto. (7) DNR (do not resuscitate) Status and Disposition: Change to inpatient.
--- NOTE | 2016-06-21 13:11 | PN ---
Hospitalist Progress Note HOSPITALIST ADDENDUM Called by RN because patient wishes to change his code status. We talked about DNR/DNI and patient feels he may have a chance of survival if he needs to be intubated again or resuscitated. We talked about the risks of unsuccessful resuscitation, especially considering his comorbidities. He understands, wants to talk more to his family, but in the mean time elects to be Full code and is agreeable with intubation in case of recurrent respiratory failure.
[2016-06-21] MEDS: Metolazone TAB* 5 MG PO SCH (16:19)
[2016-06-21] MEDS: cefTRIAXone VIAL(*) 1,000 MG in NS 0.9% 50 ML* 50 ML IVPB SCH (17:25)
[2016-06-21] MEDS: Tamsulosin CAP* 0.4 MG PO SCH (17:25)
[2016-06-21] MEDS ORDERED: Magnesium CITRATE* 300 ML BTL PO ONE (17:35)
[2016-06-21] MEDS: Ciprofloxacin 400MG IVPREMIX(* 400 MG/200 ML BAG IVPB SCH (18:08)
[2016-06-22] MEDS: Tobramycin 0.3% OPHTH.SOL* 5 ML BOT (regular eye drops) BOTH EYES SCH ×6 (01:33→22:15)
[2016-06-22 03:07] LABS: Urine Bacteria Absent (Absent); Urine Bilirubin Negative (Negative); Urine Glucose Negative (Negative); Urine Nitrite Negative (Negative)
[2016-06-22] MEDS: Ciprofloxacin 400MG IVPREMIX(* 400 MG/200 ML BAG IVPB SCH (05:55)
[2016-06-22] MEDS: Bisacodyl EC TAB* 5 MG PO SCH ×2 (08:19→08:26)
[2016-06-22] MEDS: Isosorbide Mononitrate ER TAB* 30 MG PO SCH (08:19)
[2016-06-22] MEDS: Torsemide TAB* 20 MG PO SCH ×2 (08:19→16:49)
[2016-06-22] MEDS: Losartan TAB* 25 MG PO SCH (08:19)
[2016-06-22] MEDS: Aspirin EC Low Dose* 81 MG TAB.EC PO SCH (08:19)
[2016-06-22] MEDS: oxyCODONE SR TAB(*) 10 MG TAB.SR PO SCH ×2 (08:19→22:14)
[2016-06-22] MEDS: Potassium Chlor TAB* 10 MEQ TAB.ER PO SCH (08:20)
[2016-06-22] MEDS: Pregabalin CAP(*) 100 MG PO SCH ×3 (08:20→22:14)
[2016-06-22] MEDS: Metoprolol Tartrate TAB* 50 mg PO SCH ×2 (08:20→22:13)
[2016-06-22] MEDS: Oxybutynin TAB* 5 MG PO SCH ×3 (08:21→22:13)
[2016-06-22] MEDS: Famotidine TAB* 20 MG PO SCH ×2 (08:21→22:13)
[2016-06-22] MEDS: Psyllium PAK PO SCH (08:26)
[2016-06-22] MEDS: Polyethylene Glycol 3350* 17 GM PACKET PO SCH (08:26)
[2016-06-22] MEDS: Docusate CAP* 100 MG PO SCH ×2 (08:26→22:15)
[2016-06-22] MEDS: Senna TAB PO SCH ×3 (08:27→22:16)
[2016-06-22] MEDS: Rivaroxaban TAB(*) 20 MG TAB PO SCH (08:32)
--- NOTE | 2016-06-22 10:58 | PN ---
Subjective Date of Service: 06/22/16 Interval History: HOSPITALIST PROGRESS NOTE Patient seen and examined at bedside. He feels better today, offer no other complaints at this time. Denies dysuria today. Family History: Unchanged from Admission Social History: Unchanged from Admission Past Medical History: Unchanged from Admission Objective Active Medications: Acetaminophen (Tylenol Tab*) 650 mg PO Q4H PRN PRN Reason: FEVER/PAIN Last Admin: 06/21/16 02:25 Dose: 650 mg Albuterol (Ventolin 2.5 Mg/3 Ml Neb.Brandy*) 2.5 mg INH Q2H PRN PRN Reason: SOB/WHEEZING Aspirin (Aspirin Ec Low Dose*) 81 mg PO DAILY [facility] Last Admin: 06/22/16 08:19 Dose: 81 mg Bisacodyl (Dulcolax Ec Tab*) 5 mg PO DAILY [facility] Last Admin: 06/22/16 08:26 Dose: Not Given Docusate Sodium (Colace Cap*) 100 mg PO BID [facility] Last Admin: 06/22/16 08:26 Dose: Not Given Famotidine (Pepcid Tab*) 20 mg PO BID [facility] Last Admin: 06/22/16 08:21 Dose: 20 mg Ciprofloxacin/Dextrose (Cipro 400 Mg Ivpremix(*)) 400 mg in 200 mls @ 200 mls/ hr IVPB Q12H [facility] Last Admin: 06/22/16 05:55 Dose: 200 mls/hr Isosorbide Mononitrate (Imdur Er Tab*) 30 mg PO DAILY [facility] Last Admin: 06/22/16 08:19 Dose: 30 mg Losartan Potassium (Cozaar Tab*) 25 mg PO DAILY [facility] Last Admin: 06/22/16 08:19 Dose: 25 mg Metolazone (Zaroxolyn Tab*) 2.5 mg PO 1630 [facility] Last Admin: 06/21/16 16:19 Dose: 2.5 mg Metoprolol Tartrate (Lopressor Tab*) 50 mg PO BID [facility] Last Admin: 06/22/16 08:20 Dose: 50 mg Ondansetron HCl (Zofran Inj*) 4 mg IV Q6H PRN PRN Reason: NAUSEA Oxybutynin Chloride (Ditropan Tab*) 5 mg PO TID [facility] Last Admin: 06/22/16 08:21 Dose: 5 mg Oxycodone HCl (Roxycodone Tab*) 5 mg PO Q4H PRN PRN Reason: chronic pain Last Admin: 06/21/16 13:33 Dose: 5 mg Oxycodone HCl (Oxycontin(*)) 10 mg PO Q12HR [facility] Last Admin: 06/22/16 08:19 Dose: 10 mg Polyethylene Glycol/Electrolytes (Miralax*) 17 gm PO DAILY [facility] Last Admin: 06/22/16 08:26 Dose: Not Given Potassium Chloride (Klor Con Er Tab*) 40 meq PO DAILY [facility] Last Admin: 06/22/16 08:20 Dose: 40 meq Pregabalin (Lyrica Cap(*)) 100 mg PO TID [facility] Last Admin: 06/22/16 08:20 Dose: 100 mg Psyllium Hydrophilic Mucilloid (Metamucil Elan*) 1 pkt PO DAILY [facility] Last Admin: 06/22/16 08:26 Dose: Not Given Rivaroxaban (Xarelto (*)) 20 mg PO DAILY [facility] Last Admin: 06/22/16 08:32 Dose: 20 mg Senna (Senokot Tab*) 2 tab PO BID [facility] Last Admin: 06/22/16 08:27 Dose: Not Given Tamsulosin HCl (Flomax Cap*) 0.4 mg PO 1700 [facility] Last Admin: 06/21/16 17:25 Dose: 0.4 mg Tobramycin Sulfate (Tobramycin 0.3% Ophth.Brandy*) 1 drop BOTH EYES Q4HR [facility] Last Admin: 06/22/16 08:10 Dose: Not Given Torsemide (Demadex*) 40 mg PO 0900,1700 [facility] Last Admin: 06/22/16 08:19 Dose: 40 mg Vital Signs 06/22/16 06/22/16 06/22/16 03:58 08:00 08:06 Temperature 99.4 F 99.0 F Pulse Rate 69 Respiratory 20 18 Rate Blood Pressure 123/58 (mmHg) O2 Sat by Pulse 91 98 Oximetry Oxygen Devices in Use Now: Nasal Cannula Appearance: Morbid obese male lying in bed in NAD. Eyes: No Scleral Icterus Ears/Nose/Mouth/Throat: Mucous Membranes Moist Neck: Trachea Midline Respiratory: Symmetrical Chest Expansion and Respiratory Effort, Clear to Auscultation Cardiovascular: RRR - Normal S1 and S2 Abdominal: - - Obese, BS+ Extremities: - - Chronic skin changes, bilateral TMA Neurological: Alert and Oriented x 3, NL Muscle Strength and Tone Lines/Tubes/Other Access: Clean, Dry and Intact Peripheral IV Nutrition: Taking PO's Result Diagrams: 06/21/16 05:10 06/21/16 05:10 Assess/Plan/Problems-Billing Assessment: Mr. Shafer is a 60 yo male with PMH of super morbid obesity with BMI 71, obesity hypoventilation syndrome, aflutter on xarelto, diastolic LV dysfunction , CAD, PVD s/p bilateral metatarsal amputation, h/o PE, HTN, s/p PM/AICD, COPD, JAIDEN on chronic home O2 2L, CKD 2/3, recent admission from 05/30 to 06/19 for acute hypoxia, septic shock, cellulitis, MRSA pneumonia requiring intubationx2, sent back to ED due to lethargy. - Patient Problems (1) Lethargy Comment: - Suspect source this time is likely UTI. - Had low grade temperature 100.1 last night. - Urinalysis is positive, culture growing Pseudomonas. - Switched to Ciprofloxacin. - ID consult requested. - Lethargy is much improved today. (2) Chronic respiratory failure Comment: - Continue BiPAP. (3) History of pulmonary embolism Comment: - Continue Xarelto. (4) CHF (congestive heart failure) Comment: - Stable. - Continue Losartan and diuretics. (5) Hypokalemia Comment: - Replete. (6) DVT prophylaxis Comment: - Xarelto. (7) Full code status Status and Disposition: Inpatient.
[2016-06-22] MEDS: Tamsulosin CAP* 0.4 MG PO SCH (16:49)
[2016-06-22] MEDS: Metolazone TAB* 5 MG PO SCH (16:49)
--- NOTE | 2016-06-22 23:01 | CONS ---
CONSULTATION REPORT: DATE OF CONSULT: 06/22/16 REQUESTING PHYSICIAN: Giulia Castelan MD CONSULTING SERVICE: Infectious Disease. REASON FOR CONSULT: Encephalopathy. IMPRESSION: 1. Encephalopathy present on admission which has resolved and in fact began resolving on Wednesday. 2. Pseudomonas 75,000 to 100,000 colonies in the urine with a urinalysis that shows blood, leukocyte esterase, and no nitrites. That is similar to his usual urinalysis looking back over the last year. That combined with a lack of urinary symptoms and improvement in his mental status before receiving any therapy that is active against pseudomonas. Overall, I do no think he has a pseudomonas urinary tract infection. 2. Morbid obesity. 3. Recent admission for Methicillin-resistant Staphylococcus aureus pneumonia. 4. History of deep vein thrombosis and pulmonary embolus, on Rivaroxaban. 5. Status post pacemaker placement. RECOMMENDATIONS: Stop Cipro. We will follow him here off his antibiotics. It seemed to improve most impressively after rehydration. HISTORY OF PRESENT ILLNESS: This is a 60-year-old male with obesity, recent hospitalization for MRSA pneumonia with mechanical ventilation and then with discharge to [facility] for rehab. Apparently, had a decline in mental status and he cannot provide those details, which was obtained from review of the medical records and discussion with Dr. Castelan. He was found to be diaphoretic and with decline in mental status and a pulse of 50, so he was brought to the ER by EMS, where he was afebrile, bradycardic, and normotensive with normal oxygen saturation. His white count was 4. Kidney function was at baseline. CT of the brain showed no acute findings. Arterial blood gas obtained showed a pCO2 of 70, which he has had higher and lower values during previous admissions. Today he denies urinary frequency, dysuria, suprapubic tenderness, or flank pain. He feels back to his usual self. He said he started feeling much better within a day or so being here. His heart rate has consistently been in the 60s and 70s since later in the day on the . PAST MEDICAL HISTORY: 1. Chronic respiratory failure. 2. Morbid obesity. 3. DVT. 4. Pulmonary embolus. 5. Congestive heart failure. 6. Hypoventilation syndrome. 7. Peripheral vascular disease. 8. Atrial flutter. 9. COPD. 10. Decubitus ulcer. 11. Nephrolithiasis. 12. Status post bilaterally transmetatarsal amputations. 13. Status post pacemaker placement. MEDICATIONS: 1. Tylenol. 2. Aspirin. 3. Cipro 400 mg every 12 hours. 4. Docusate. 5. Famotidine. 6. Imdur. 7. Losartan. 8. Oxybutynin. 9. Rivaroxaban. 10. Senna. 11. Tamsulosin. ALLERGIES: SULFA. FAMILY HISTORY: No recurrent infections. SOCIAL HISTORY: He has been at [facility], before then he was in the hospital for a couple of weeks. No sick contacts. REVIEW OF SYSTEMS: Full review of systems is negative except for as noted above. PHYSICAL EXAM: Vital Signs: Temperature is 37, heart rate is 70, respiratory rate is 16, blood pressure is 102/55, and O2 sat is 93% on 3 L. General: He is awake, not in distress. Neurologic: He is oriented x3. Follows all commands. Moves all extremities. HEENT: There is no conjunctival hemorrhage. Oropharynx without lesions. Neck: Supple without nuchal rigidity. Lymph Nodes: There is no cervical, supraclavicular, inguinal, axillary, or epitrochlear lymphadenopathy. Heart: Regular rate and rhythm without murmurs, rubs, or gallops. Lungs: Have decreased breath sounds throughout. Abdomen: Obese, nontender, and nondistended. There is no rebound. Skin: There is no rash or splinter hemorrhages. He has bilateral venous stasis changes in the lower extremities. Musculoskeletal: No joint synovitis. DIAGNOSTIC STUDIES/LAB DATA: White blood cell count 5, hemoglobin 9, and platelets 201. Creatinine is 0.9. Please see impressions and recommendations as outline above. Thanks for asking me to see Mr. Shafer in consultation. [id number]/[facility] #: [id number] KIET
[2016-06-23] MEDS: Tobramycin 0.3% OPHTH.SOL* 5 ML BOT (regular eye drops) BOTH EYES SCH ×6 (02:20→21:27)
[2016-06-23 08:02] LABS: Hematocrit 31 % (42-52); Hemoglobin 9.9 g/dl (14.0-18.0); Mean Corpuscular HGB Conc 32 g/dl (31-36); Mean Corpuscular Hemoglobin 28 pg (27-31); Mean Corpuscular Volume 87 fL (80-94); Mean Platelet Volume 9 um3 (7.4-10.4); Red Blood Count 3.53 10^6/ul (4.0-5.4); Red Cell Distribution Width 19 % (10.5-15); White Blood Count 5.5 10^3/ul (3.5-10.8)
[2016-06-23 08:12] LABS: BUN/Creatinine Ratio 26.8 (8-20); Calcium 10.1 mg/dL (8.6-10.3); EGFR Non-African American 66.9 (>60); Potassium 3.4 mmol/L (3.5-5.0)
[2016-06-23] MEDS: Potassium Chlor TAB* 10 MEQ TAB.ER PO SCH (09:01)
[2016-06-23] MEDS: oxyCODONE SR TAB(*) 10 MG TAB.SR PO SCH ×2 (09:02→21:22)
[2016-06-23] MEDS: Losartan TAB* 25 MG PO SCH (09:02)
[2016-06-23] MEDS: Torsemide TAB* 20 MG PO SCH ×2 (09:03→16:20)
[2016-06-23] MEDS: Isosorbide Mononitrate ER TAB* 30 MG PO SCH (09:03)
[2016-06-23] MEDS: Pregabalin CAP(*) 100 MG PO SCH ×3 (09:04→21:22)
[2016-06-23] MEDS: Oxybutynin TAB* 5 MG PO SCH ×3 (09:05→21:23)
[2016-06-23] MEDS: Famotidine TAB* 20 MG PO SCH ×2 (09:05→21:26)
[2016-06-23] MEDS: Aspirin EC Low Dose* 81 MG TAB.EC PO SCH (09:06)
[2016-06-23] MEDS: Metoprolol Tartrate TAB* 50 mg PO SCH ×2 (09:06→21:23)
[2016-06-23] MEDS: Rivaroxaban TAB(*) 20 MG TAB PO SCH (09:13)
[2016-06-23] MEDS: Bisacodyl EC TAB* 5 MG PO SCH (10:16)
[2016-06-23] MEDS: Senna TAB PO SCH ×2 (10:16→21:26)
[2016-06-23] MEDS: Polyethylene Glycol 3350* 17 GM PACKET PO SCH (10:16)
[2016-06-23] MEDS: Psyllium PAK PO SCH (10:16)
[2016-06-23] MEDS: Docusate CAP* 100 MG PO SCH ×2 (10:16→21:21)
--- NOTE | 2016-06-23 14:41 | PN ---
Progress Note - Progress Note SOAP: Subjective: DOS: 06/23/16 CC:encephalopathy HPI: 60 year old man with recent admission for MRSA pneumonia and prolonged mechanical ventilation admitted with encephalopathy. Improved with fluids and supplemental O2. Overall feels much better. No cough or dyspnea. Has BL leg pain which is chronic and worse without narcotics. No urinary frequency and dysuria. Objective: [] Vital Signs Temp 36.9 C 06/23/16 11:12 Pulse 62 06/23/16 11:12 Resp 16 06/23/16 12:56 BP 108/53 06/23/16 11:12 Pulse Ox 98 06/23/16 11:12 Intake & Output 06/22/16 06/23/16 06/23/16 18:59 06:59 18:59 Intake Total 7532 839 8168 Output Total 750 2000 825 Balance 470 -1550 225 Weight 494 lb 9.6 oz Intake: Oral 0071 018 8979 Output: Urine 750 2000 825 Other: Estimated Void Small # Bowel Movements 1 0 Estimated Stool Amount Medium # Voids 2 Gen:Awake, Ox3 HEENT:PERRL, MMM Neck:supple Heart:RRR no murmur Lungs:CTA BL Abd:+BS NTND soft Skin: no rash MSK: venous stasis changes BL LE Laboratory Results - last 24 hr 06/23/16 06/23/16 07:49 07:50 WBC 5.5 RBC 3.53 L Hgb 9.9 L Hct 31 L MCV 87 MCH 28 MCHC 32 RDW 19 H Plt Count 181 MPV 9 Neut % (Auto) 64.6 Lymph % (Auto) 21.7 L Crawford % (Auto) 9.6 H Eos % (Auto) 3.3 Baso % (Auto) 0.8 Absolute Neuts (auto) 3.5 Absolute Lymphs (auto) 1.2 Absolute Monos (auto) 0.5 Absolute Eos (auto) 0.2 Absolute Basos (auto) 0 Absolute Nucleated RBC 0 Nucleated RBC % 0 Sodium 137 Potassium 3.4 L Chloride 86 L Carbon Dioxide 45 H* Anion Gap 6 BUN 30 H Creatinine 1.12 Est GFR ( Amer) 86.0 Est GFR (Non-Af Amer) 66.9 BUN/Creatinine Ratio 26.8 H Glucose 115 H Calcium 10.1 Assessment: 1. Encephalopathy, resolved ?CO2 or dehydration related 2. Pseudomonas in UC, asymptomatic, colonization 3. morbid obesity Plan: 1. continue off of antibiotics
[2016-06-23] MEDS ORDERED: Potassium Chlor TAB* 20 MEQ TAB.ER PO ONE (15:26)
--- NOTE | 2016-06-23 16:04 | PN ---
Subjective Date of Service: 06/23/16 Interval History: Pt is feeling well. He feels his breathing is comfortable. He denies any pain at this time. Objective Active Medications: Acetaminophen (Tylenol Tab*) 650 mg PO Q4H PRN PRN Reason: FEVER/PAIN Last Admin: 06/21/16 02:25 Dose: 650 mg Albuterol (Ventolin 2.5 Mg/3 Ml Neb.Brandy*) 2.5 mg INH Q2H PRN PRN Reason: SOB/WHEEZING Aspirin (Aspirin Ec Low Dose*) 81 mg PO DAILY [facility] Last Admin: 06/23/16 09:06 Dose: 81 mg Bisacodyl (Dulcolax Ec Tab*) 5 mg PO DAILY [facility] Last Admin: 06/23/16 10:16 Dose: Not Given Docusate Sodium (Colace Cap*) 100 mg PO BID [facility] Last Admin: 06/23/16 10:16 Dose: Not Given Famotidine (Pepcid Tab*) 20 mg PO BID [facility] Last Admin: 06/23/16 09:05 Dose: 20 mg Isosorbide Mononitrate (Imdur Er Tab*) 30 mg PO DAILY [facility] Last Admin: 06/23/16 09:03 Dose: 30 mg Losartan Potassium (Cozaar Tab*) 25 mg PO DAILY [facility] Last Admin: 06/23/16 09:02 Dose: 25 mg Metolazone (Zaroxolyn Tab*) 2.5 mg PO 1630 [facility] Last Admin: 06/22/16 16:49 Dose: 2.5 mg Metoprolol Tartrate (Lopressor Tab*) 50 mg PO BID [facility] Last Admin: 06/23/16 09:06 Dose: 50 mg Ondansetron HCl (Zofran Inj*) 4 mg IV Q6H PRN PRN Reason: NAUSEA Oxybutynin Chloride (Ditropan Tab*) 5 mg PO TID [facility] Last Admin: 06/23/16 12:57 Dose: 5 mg Oxycodone HCl (Roxycodone Tab*) 5 mg PO Q4H PRN PRN Reason: chronic pain Last Admin: 06/21/16 13:33 Dose: 5 mg Oxycodone HCl (Oxycontin(*)) 10 mg PO Q12HR [facility] Last Admin: 06/23/16 09:02 Dose: 10 mg Polyethylene Glycol/Electrolytes (Miralax*) 17 gm PO DAILY [facility] Last Admin: 06/23/16 10:16 Dose: Not Given Potassium Chloride (Klor Con Er Tab*) 40 meq PO DAILY [facility] Last Admin: 06/23/16 09:01 Dose: 40 meq Pregabalin (Lyrica Cap(*)) 100 mg PO TID [facility] Last Admin: 06/23/16 12:56 Dose: 100 mg Psyllium Hydrophilic Mucilloid (Metamucil Elan*) 1 pkt PO DAILY [facility] Last Admin: 06/23/16 10:16 Dose: Not Given Rivaroxaban (Xarelto (*)) 20 mg PO DAILY [facility] Last Admin: 06/23/16 09:13 Dose: 20 mg Senna (Senokot Tab*) 2 tab PO BID [facility] Last Admin: 06/23/16 10:16 Dose: Not Given Tamsulosin HCl (Flomax Cap*) 0.4 mg PO 1700 [facility] Last Admin: 06/22/16 16:49 Dose: 0.4 mg Tobramycin Sulfate (Tobramycin 0.3% Ophth.Brandy*) 1 drop BOTH EYES Q4HR [facility] Last Admin: 06/23/16 12:47 Dose: Not Given Torsemide (Demadex*) 40 mg PO 0900,1700 [facility] Last Admin: 06/23/16 09:03 Dose: 40 mg Vital Signs 06/22/16 06/22/16 06/22/16 16:11 18:37 20:00 Temperature Pulse Rate 75 52 Respiratory 16 14 16 Rate Blood Pressure (mmHg) O2 Sat by Pulse 97 97 Oximetry 06/22/16 06/22/16 06/23/16 21:23 22:14 00:00 Temperature 98.5 F Pulse Rate 78 Respiratory 18 18 Rate Blood Pressure 120/53 (mmHg) O2 Sat by Pulse 99 98 Oximetry 06/23/16 06/23/16 06/23/16 00:10 04:44 07:49 Temperature 98.5 F 97.6 F Pulse Rate 52 60 Respiratory 16 16 16 Rate Blood Pressure 116/49 119/66 (mmHg) O2 Sat by Pulse 98 93 Oximetry 06/23/16 06/23/16 06/23/16 07:52 07:57 09:02 Temperature 98.7 F Pulse Rate 52 Respiratory 18 16 Rate Blood Pressure 108/57 (mmHg) O2 Sat by Pulse 98 98 Oximetry 06/23/16 06/23/16 06/23/16 09:04 09:44 09:45 Temperature Pulse Rate 68 Respiratory 16 19 Rate Blood Pressure (mmHg) O2 Sat by Pulse 99 99 Oximetry 06/23/16 06/23/16 06/23/16 11:02 11:04 11:12 Temperature 98.4 F Pulse Rate 62 Respiratory 18 18 20 Rate Blood Pressure 108/53 (mmHg) O2 Sat by Pulse 98 Oximetry 06/23/16 06/23/16 12:56 14:55 Temperature Pulse Rate Respiratory 16 16 Rate Blood Pressure (mmHg) O2 Sat by Pulse Oximetry Oxygen Devices in Use Now: Nasal Cannula - 3L-98% Appearance: Super morbidly obese male lying in bed, NAD Eyes: No Scleral Icterus Ears/Nose/Mouth/Throat: Mucous Membranes Moist Respiratory: Symmetrical Chest Expansion and Respiratory Effort, Clear to Auscultation - anteriorly Cardiovascular: NL Sounds; No Murmurs; No JVD, RRR, - - 1+ B/L LE edema Abdominal: NL Sounds; No Tenderness; No Distention Extremities: No Clubbing, Cyanosis, - - s/p transmetatarsal amputation B/L Skin: No Rash or Ulcers, No Nodules or Sclerosis Neurological: Alert and Oriented x 3 Result Diagrams: 06/23/16 07:50 06/23/16 07:49 Additional Lab and Data: Lab Results 06/20/16 06/20/16 06/20/16 Range/Units 13:56 13:56 13:56 WBC 4.4 (3.5-10.8) 10^3/ul RBC 3.48 L (4.0-5.4) 10^6/ul Hgb 9.8 L (14.0-18.0) g/dl Hct 30 L (42-52) % MCV 87 (80-94) fL MCH 28 (27-31) pg MCHC 32 (31-36) g/dl RDW 19 H (10.5-15) % Plt Count 193 (150-450) 10^3/ul MPV 9 (7.4-10.4) um3 Neut % (Auto) 73.5 (38-83) % Lymph % (Auto) 15.5 L (25-47) % Randall % (Auto) 8.6 (1-9) % Eos % (Auto) 1.8 (0-6) % Baso % (Auto) 0.6 (0-2) % Absolute Neuts (auto) 3.2 (1.5-7.7) 10^3/ul Absolute Lymphs (auto) 0.7 L (1.0-4.8) 10^3/ul Absolute Monos (auto) 0.4 (0-0.8) 10^3/ul Absolute Eos (auto) 0.1 (0-0.6) 10^3/ul Absolute Basos (auto) 0 (0-0.2) 10^3/ul Absolute Nucleated RBC 0 10^3/ul Nucleated RBC % 0.1 INR (Anticoag Therapy) 1.27 H (0.89-1.11) APTT 33.4 (26.0-36.3) seconds Patient Temperature ABG pH (7.35-7.45) ABG pCO2 (35-45) mmHg ABG pO2 (80-100) mmHg ABG HCO3 (19-31) mmol/L ABG O2 Saturation (95-98) % ABG Base Excess (-2.0-2.0) Respiration Rate O2 Delivery Device Ventilator Type Vent Mode FiO2 Inspiratory Time PEEP Pressure Support Pressure Control EPAP IPAP BiPAP Sodium 140 (133-145) mmol/L Potassium 3.6 (3.5-5.0) mmol/L Chloride 94 L (101-111) mmol/L Carbon Dioxide 40 H (22-32) mmol/L Anion Gap 6 (2-11) mmol/L BUN 22 (6-24) mg/dL Creatinine 0.91 (0.67-1.17) mg/dL Est GFR ( Amer) 109.3 (>60) Est GFR (Non-Af Amer) 85.0 (>60) BUN/Creatinine Ratio 24.2 H (8-20) Glucose 136 H (70-100) mg/dL Lactic Acid (0.5-2.0) mmol/L Calcium 9.9 (8.6-10.3) mg/dL Total Bilirubin 0.70 (0.2-1.0) mg/dL AST 17 (13-39) U/L ALT 10 (7-52) U/L Alkaline Phosphatase 21 L (34-104) U/L Troponin I 0.01 (<0.04) ng/mL Total Protein 6.8 (6.4-8.9) g/dL Albumin 2.8 L (3.2-5.2) g/dL Globulin 4.0 (2-4) g/dL Albumin/Globulin Ratio 0.7 L (1-3) 06/20/16 06/20/16 Range/Units 13:56 14:30 WBC (3.5-10.8) 10^3/ul RBC (4.0-5.4) 10^6/ul Hgb (14.0-18.0) g/dl Hct (42-52) % MCV (80-94) fL MCH (27-31) pg MCHC (31-36) g/dl RDW (10.5-15) % Plt Count (150-450) 10^3/ul MPV (7.4-10.4) um3 Neut % (Auto) (38-83) % Lymph % (Auto) (25-47) % Randall % (Auto) (1-9) % Eos % (Auto) (0-6) % Baso % (Auto) (0-2) % Absolute Neuts (auto) (1.5-7.7) 10^3/ul Absolute Lymphs (auto) (1.0-4.8) 10^3/ul Absolute Monos (auto) (0-0.8) 10^3/ul Absolute Eos (auto) (0-0.6) 10^3/ul Absolute Basos (auto) (0-0.2) 10^3/ul Absolute Nucleated RBC 10^3/ul Nucleated RBC % INR (Anticoag Therapy) (0.89-1.11) APTT (26.0-36.3) seconds Patient Temperature Not Reportable ABG pH 7.42 (7.35-7.45) ABG pCO2 70 H (35-45) mmHg ABG pO2 77 L (80-100) mmHg ABG HCO3 39.0 H (19-31) mmol/L ABG O2 Saturation 97.2 (95-98) % ABG Base Excess 18.1 H (-2.0-2.0) Respiration Rate Not Reportable O2 Delivery Device Nasal cannula Ventilator Type Not Reportable Vent Mode Not Reportable FiO2 4 Inspiratory Time Not Reportable PEEP Not Reportable Pressure Support Not Reportable Pressure Control Not Reportable EPAP Not Reportable IPAP Not Reportable BiPAP Not Reportable Sodium (133-145) mmol/L Potassium (3.5-5.0) mmol/L Chloride (101-111) mmol/L Carbon Dioxide (22-32) mmol/L Anion Gap (2-11) mmol/L BUN (6-24) mg/dL Creatinine (0.67-1.17) mg/dL Est GFR ( Amer) (>60) Est GFR (Non-Af Amer) (>60) BUN/Creatinine Ratio (8-20) Glucose (70-100) mg/dL Lactic Acid 0.9 (0.5-2.0) mmol/L Calcium (8.6-10.3) mg/dL Total Bilirubin (0.2-1.0) mg/dL AST (13-39) U/L ALT (7-52) U/L Alkaline Phosphatase (34-104) U/L Troponin I (<0.04) ng/mL Total Protein (6.4-8.9) g/dL Albumin (3.2-5.2) g/dL Globulin (2-4) g/dL Albumin/Globulin Ratio (1-3) Assess/Plan/Problems-Billing Mr. Shafer is a 60 yo male with PMHx of super morbid obesity with BMI 71, obesity hypoventilation syndrome, aflutter on xarelto, diastolic LV dysfunction , CAD, PVD s/p bilateral metatarsal amputation, h/o PE, HTN, s/p PM/AICD, COPD, JAIDEN on chronic home O2 2L, CKD 2/3, recent admission from 05/30 to 06/19 for acute hypoxia, septic shock, cellulitis, MRSA pneumonia requiring intubationx2, sent back to ED due to lethargy. - Patient Problems (1) Encephalopathy acute Current Visit: Yes Status: Acute Code(s): G93.40 - ENCEPHALOPATHY, UNSPECIFIED SNOMED Code(s): 0063314 Comment: The patient was encephalopathic on admission. ? metabolic vs toxic secondary to narcotic use. He improved rapidly with hydration. He was started on ABx but when the culture returned it was clear he was not on an Abx that had activity against the potential pathogen. It seems a UTI was not the cause of his encephalopathy. He is back to baseline mental status. He will use his BiPAP while sleeping. (2) Diastolic heart failure Current Visit: Yes Status: Acute Code(s): I50.30 - UNSPECIFIED DIASTOLIC ( CONGESTIVE) HEART FAILURE SNOMED Code(s): 635759826 Comment: Chronic- currently compensated. Continue usual home diuretic regimen. (3) Atrial flutter Current Visit: Yes Status: Acute Code(s): I48.92 - UNSPECIFIED ATRIAL FLUTTER SNOMED Code(s): 0317750 Comment: In NSR. Continue rivaroxaban and metoprolol. (4) Obesity hypoventilation syndrome Current Visit: Yes Status: Chronic Code(s): E66.2 - MORBID (SEVERE) OBESITY WITH ALVEOLAR HYPOVENTILATION SNOMED Code(s): 026562510 Comment: Continue BiPAP with sleep. Pt has chronic hypoxic and hypercarbic respiratory failure. (5) Morbid obesity with BMI of 70 and over, adult Current Visit: No Status: Acute Code(s): E66.01 - MORBID (SEVERE) OBESITY DUE TO EXCESS CALORIES; Z68.45 - BODY MASS INDEX (BMI) 70 OR GREATER, ADULT SNOMED Code(s): 014267888 Comment: Diagnosis noted. (6) DVT prophylaxis Current Visit: Yes Status: Acute Code(s): CUR3034 - SNOMED Code(s): 139699341 Comment: miki (7) Full code status Current Visit: Yes Status: Acute Code(s): Z78.9 - OTHER SPECIFIED HEALTH STATUS SNOMED Code(s): 737534184 Status and Disposition: Inpatient.
[2016-06-23] MEDS: Tamsulosin CAP* 0.4 MG PO SCH (16:20)
[2016-06-23] MEDS: Metolazone TAB* 5 MG PO SCH (16:20)
[2016-06-24] MEDS: Tobramycin 0.3% OPHTH.SOL* 5 ML BOT (regular eye drops) BOTH EYES SCH ×3 (03:20→08:07)
[2016-06-24] MEDS: Potassium Chlor TAB* 10 MEQ TAB.ER PO SCH (08:03)
[2016-06-24] MEDS: Polyethylene Glycol 3350* 17 GM PACKET PO SCH (08:04)
[2016-06-24] MEDS: Torsemide TAB* 20 MG PO SCH (08:05)
[2016-06-24] MEDS: Isosorbide Mononitrate ER TAB* 30 MG PO SCH (08:05)
[2016-06-24] MEDS: Metoprolol Tartrate TAB* 50 mg PO SCH (08:05)
[2016-06-24] MEDS: Rivaroxaban TAB(*) 20 MG TAB PO SCH (08:05)
[2016-06-24] MEDS: Famotidine TAB* 20 MG PO SCH (08:05)
[2016-06-24] MEDS: Aspirin EC Low Dose* 81 MG TAB.EC PO SCH (08:05)
[2016-06-24] MEDS: Losartan TAB* 25 MG PO SCH (08:06)
[2016-06-24] MEDS: oxyCODONE SR TAB(*) 10 MG TAB.SR PO SCH (08:06)
[2016-06-24] MEDS: Pregabalin CAP(*) 100 MG PO SCH (08:06)
[2016-06-24] MEDS: Oxybutynin TAB* 5 MG PO SCH (08:06)
[2016-06-24] MEDS: Bisacodyl EC TAB* 5 MG PO SCH (08:07)
[2016-06-24] MEDS: Docusate CAP* 100 MG PO SCH (08:07)
[2016-06-24] MEDS: Senna TAB PO SCH (08:07)
[2016-06-24] MEDS: Psyllium PAK PO SCH (08:07)
[2016-06-24 08:23] VITALS: BP 112/65
--- NOTE | 2016-06-24 09:53 | DS ---
DATE OF ADMISSION: 06/21/16 DATE OF DISCHARGE: 06/24/16 PRIMARY CARE PROVIDER: Vernell Baker MD PRINCIPAL DIAGNOSIS: 1. Encephalopathy/lethargy/altered mental status, likely secondary to possibly narcotic use and dehydration - resolved. SECONDARY DIAGNOSES: 1. Chronic hypoxic respiratory failure. 2. History of DVT/PE. 3. History of diastolic congestive heart failure. 4. Obesity. 5. Hyperventilation syndrome. 6. Peripheral vascular disease. 7. Atrial fibrillation. 8. Chronic obstructive pulmonary disease. DISCHARGE MEDICATIONS: 1. Maalox plus 30 mL po q 6 hours prn indigestion. 2. Tylenol 1000 mg po bid prn pain. 3. Symbicort 160/4.5 two puffs inhaled twice daily. 4. Dulcolax EC 5 mg po daily. 5. Aspirin 81 mg po daily. 6. DuoNeb one neb inhaled tid. 7. Losartan 25 mg po daily. 8. Imdur 30 mg po daily. 9. Celexa 20 mg po daily. 10. Tums 1000 mg po q 6 hours prn indigestion. 11. Morphine sulfate ER 15 mg po q 12 hours. 12. Metoprolol tartrate 50 mg po bid. 13. Zaroxolyn 2.5 mg po daily at 1630. 14. MiraLAX 17 grams po daily. 15. Oxycodone 5 mg po q 4 hours prn pain (reduced dose). 16. Oxybutynin 5 mg po tid. 17. Nitroglycerin tabs 0.4 SL q 5 minutes prn chest pain. 18. Ranitidine 150 mg po bid. 19. Metamucil one packet po daily. 20. Lyrica 100 mg po tid. 21. Potassium chloride 20 mEq po daily. 22. Tobramycin ophthalmic solution one drop to both eyes q 4 hours. 23. Flomax 0.4 mg po daily at 1700. 24. Senokot-S two tabs po bid. 25. Xarelto 20 mg po daily. 26. Benadryl 50 mg po q 6 hours prn allergy symptoms. 27. Torsemide 40 mg po daily at 0900 and 1700 hours. HOSPITAL COURSE: Mr. Shafer is a 60-year-old male, well known to the hospitalist service from multiple previous hospitalizations and, in fact, a prolonged hospitalization just two days prior to this admission with acute-on- chronic respiratory failure. The patient re-presented to the ER on 06/21/16 with altered mental status. The patient was admitted for this altered mental status and lethargy. Initially, it was felt to be possibly due to a urinary tract infection. The patient was started initially on Ceftriaxone; however, when patient's urinalysis returned positive for pseudomonas, he was changed to Ciprofloxacin. At that time, Infectious Disease consultation was requested. Dr. Bryan noted that the patient had already begun to improve in terms of his mental status prior to being started on therapy that directly targeted the pseudomonas, and, therefore, it was felt more likely that he was colonized with the pseudomonas and that this was not a pathogen. The patient was taken off his antibiotic therapy and has been monitored. The patient was stable for discharge to [facility] on 06/23/16. However, he was unable to be discharged late in the afternoon; therefore, he stayed overnight. At this point, the patient is now stable for discharge to [facility] today, 06/24/16. FOLLOW-UP CONCERNS: Patient is being discharged to [facility] today , 06/24/16. ACTIVITY LEVEL: As tolerated. DIET: Low fat. CONDITION ON DISCHARGE: Stable. TIME SPENT: 40 minutes were spent discharging this patient. CC: Dr. Vernell Baker, [facility]* [id number]/[facility] #: [id number] KIET
== END 2016-06-24 10:31 | DRG 52 ==
LOC: ED 12:18 → MEDTELE 15:20 → OBSVTOIN 06-21 10:46 → MEDTELE 06-22 10:08
PROVIDERS: ADMIT Internal Medicine; ATTEND Hospitalist
PROC: 5A09457 Assistance with Respiratory Ventilation, 24-96 Consecutive Hours, Continuous Positive Airway Pressure (ICD-10-PCS; principal; 2016-06-20)
DX: G92 Toxic encephalopathy (principal); J96.11 Chronic respiratory failure with hypoxia; E66.2 Morbid (severe) obesity with alveolar hypoventilation; I50.32 Chronic diastolic (congestive) heart failure; I13.0 Hypertensive heart and chronic kidney disease with heart failure and stage 1 through stage 4 chronic kidney disease, or unspecified chronic kidney disease; Z99.81 Dependence on supplemental oxygen; I48.91 Unspecified atrial fibrillation; G62.9 Polyneuropathy, unspecified; Z68.45 Body mass index [BMI] 70 or greater, adult; E86.0 Dehydration; F45.8 Other somatoform disorders; J44.9 Chronic obstructive pulmonary disease, unspecified; I25.10 Atherosclerotic heart disease of native coronary artery without angina pectoris; E78.00 Pure hypercholesterolemia, unspecified; I73.9 Peripheral vascular disease, unspecified; M19.90 Unspecified osteoarthritis, unspecified site; F41.9 Anxiety disorder, unspecified; Z66 Do not resuscitate; K59.00 Constipation, unspecified; G47.33 Obstructive sleep apnea (adult) (pediatric); N18.2 Chronic kidney disease, stage 2 (mild); E87.6 Hypokalemia; G89.29 Other chronic pain; M79.605 Pain in left leg; M79.604 Pain in right leg; T40.605A Adverse effect of unspecified narcotics, initial encounter; Z22.39 Carrier of other specified bacterial diseases; Z89.422 Acquired absence of other left toe(s); Z89.421 Acquired absence of other right toe(s); Z83.3 Family history of diabetes mellitus; Z87.01 Personal history of pneumonia (recurrent); Z79.82 Long term (current) use of aspirin; Z86.718 Personal history of other venous thrombosis and embolism; Z86.711 Personal history of pulmonary embolism; Z79.01 Long term (current) use of anticoagulants; Z91.018 Allergy to other foods; Z87.442 Personal history of urinary calculi; Z91.030 Bee allergy status; Z88.2 Allergy status to sulfonamides; Z82.3 Family history of stroke; Z95.810 Presence of automatic (implantable) cardiac defibrillator
CPT/HCPCS: 36415; 36600; 70450; 71010; 80048; 80053; 81003; 81015; 82803; 83605; 84484; 85025; 85610; 85730; 87040; 87077; 87086; 87186; 93005; 94640; 94660; 94760; A9270-GY; G0378; J0696; J0744

== ENCOUNTER 2016-06-30 21:03 | Inpatient (IN) | payer MEDICAID ==
--- NOTE | 2016-06-30 21:43 | ED ---
Katherine, DoctorBrianna, scribed for Prasanna Sharma MD on 06/30/16 at 2123 . Complex/Multi-Sys Presentation - HPI Summary HPI Summary: 60 year old male brought to [facility] by EMS presenting with increased confusion, lethargy, and decreased oxygen saturation since yesterday. Pt is reported to have had an O2 sat in the 70s yesterday (although it has been increased to the 80s with nasal O2); he was also hypotensive. He reports feeling generalized weakness. - History Of Current Complaint Chief Complaint: EDAltMentalStatus Time Seen by Provider: 06/30/16 21:04 Hx Obtained From: Patient, EMS Onset/Duration: Lasting Days Timing: Constant Severity Currently: Moderate Severity Initially: Moderate Associated Signs And Symptoms: Positive: Confusion, Weakness, Other - hypoxic, hypotensive - Allergies/Home Medications Allergies/Adverse Reactions: Allergies Allergy/AdvReac Type Severity Reaction Status Date / Time Apple Allergy Unknown Unknown Verified 06/20/16 13:05 Reaction Details Bee Venom Allergy Unknown Verified 06/20/16 13:05 Reaction Details Black [place] Flavor Allergy Unknown Verified 06/20/16 13:05 Reaction Details Sulfa Antibiotics Allergy Rash Verified 06/20/16 13:05 walnut Allergy Unknown Unknown Uncoded 06/20/16 13:05 Reaction Details bee sting Allergy Unknown Uncoded 06/20/16 13:05 Reaction Details Home Medications: Home Medications Oxycodone TAB(NF) [Oxycodone HCl 10 MG] 10 mg PO Q4H PRN 07/01/16 [History Confirmed 07/01/16] PMH/Surg Hx/FS Hx/Imm Hx Endocrine/Hematology History: Reports: Hx Anticoagulant Therapy - xarelto, Hx Anemia Denies: Hx Diabetes - hypoglycemic, Hx Systemic Lupus Erythematosus Cardiovascular History: Reports: Hx Congestive Heart Failure, Hx Coronary Artery Disease, Hx Deep Vein Thrombosis, Hx Embolism - pulmonary embolism, takes xarelto, Hx Hypercholesterolemia, Hx Hypertension, Hx Pacemaker/ICD, Hx Peripheral Vascular Disease - SSS, Hx Syncope, Other Cardiovascular Problems/ Disorders - cardiac cath Respiratory History: Reports: Hx Chronic Obstructive Pulmonary Disease (COPD) - on 2L home O2, Hx Pneumonia, Hx Pulmonary Embolism, Hx Sleep Apnea, Other Respiratory Problems/Disorders - SLEEP APNEA, ON 2 L O2 @ NIGHT, obesity hypoventilation GI History: Reports: Other GI Disorders - umbilical hernia, stool softener at home, constipation History: Reports: Hx Acute Renal Failure, Hx Kidney Stones, Hx Renal Disease - 3 episodes of renal failure Denies: Hx Dialysis Musculoskeletal History: Reports: Hx Arthritis, Hx Back Problems, Other Musculoskeletal History - bilateral metatarsal amputation Denies: Hx Rheumatoid Arthritis Sensory History: Reports: Other Sensory Impairments - Neuropathy in feet Denies: Hx Contacts or Glasses, Hx Hearing Aid Opthamlomology History: Reports: Other Sensory Impairments - Neuropathy in feet Denies: Hx Contacts or Glasses Neurological History: Reports: Hx Headaches, Other Neuro Impairments/Disorders - frequent syncope, pt states possible stroke in past Psychiatric History: Reports: Hx Depression Denies: Hx of Violent Episodes Against Others - Cancer History Hx Chemotherapy: No - Surgical History Surgery Procedure, Year, and Place: Bilateral metatarsal amputations Hx Anesthesia Reactions: No - Immunization History Date of Tetanus Vaccine: PT STATES UNSURE Date of Influenza Vaccine: NONE Infectious Disease History: No Infectious Disease History: Reports: Hx of Known/Suspected MRSA Denies: Traveled Outside the [place] in Last 30 Days - Family History Known Family History: Positive: Diabetes Negative: Other - denies FHx of depression - Social History Alcohol Use: None Substance Use Type: Reports: None Substance Use Comment - Amount & Last Used: chronic narcotic use Hx Tobacco Use: No Smoking Status (MU): Never Smoked Tobacco Have You Smoked in the Last Year: No Review of Systems Negative: Fever Positive: Other - hypotensive Positive: Other - hypoxia Positive: Weakness Positive: Other - feeling lethargic All Other Systems Reviewed And Are Negative: Yes Physical Exam Triage Information Reviewed: Yes Vital Signs On Initial Exam: Initial Vitals Temp Pulse Resp Pulse Ox 98 F 65 22 99 06/30/16 21:09 06/30/16 21:09 06/30/16 21:09 06/30/16 21:09 Vital Signs Reviewed: Yes Completion Of Physical Exam Limited Due To: Extremis Appearance: Positive: Obese - morbidly obese Skin: Positive: Warm Head/Face: Positive: Normal Head/Face Inspection Eyes: Positive: ELENA ENT: Positive: Hearing grossly normal Neck: Positive: Supple Respiratory/Lung Sounds: Positive: Decreased Breath Sounds Cardiovascular: Positive: RRR Abdomen Description: Positive: Other: - morbidly obeses Bowel Sounds: Positive: Present Musculoskeletal: Positive: Strength/ROM Intact Neurological: Positive: Alert, Oriented to Person Place, Time Diagnostics - Vital Signs Vital Signs Temp Pulse Resp BP Pulse Ox 06/30/16 21:14 98 F 65 22 96/41 99 06/30/16 21:09 98 F 65 22 99 - Laboratory Result Diagrams: 06/30/16 21:40 06/30/16 21:40 Lab Statement: Any lab studies that have been ordered have been reviewed, and results considered in the medical decision making process. - Radiology CXR Radiology Interpretation Completed By: Radiologist - IMPRESSION: Chest x-ray findings are consistent with cardiogenic pulmonary edema with no substantial change since June 30, 2016 chest x-ray. - EKG 21:21 Cardiac Rate: NL - 66 bpm EKG Rhythm: Sinus Rhythm EKG Interpretation: Non-specific ST abnormality, poor quality tracing Complex Multi-Symp Course/Dx - Diagnoses Provider Diagnoses: Acute renal failure, COPD exacerbation - Physician Notifications Discussed Care Of Patient With: 22:00 - spoke with Dr. Richmond (Hospitalist); he agrees to admit him. - Critical Care Time Critical Care Time: 30-74 min Discharge - Discharge Plan Condition: Stable Disposition: ADMITTED TO [facility] documentation as recorded by the Doctor parham Tahera accurately reflects the service I personally performed and the decisions made by me, Prasanna Sharma MD.
[2016-06-30 21:50] LABS: Hematocrit 30 % (42-52); Hemoglobin 9.7 g/dl (14.0-18.0); Mean Corpuscular HGB Conc 32 g/dl (31-36); Mean Corpuscular Hemoglobin 28 pg (27-31); Mean Corpuscular Volume 88 fL (80-94); Mean Platelet Volume 10 um3 (7.4-10.4); Red Blood Count 3.42 10^6/ul (4.0-5.4); Red Cell Distribution Width 20 % (10.5-15); White Blood Count 12.4 10^3/ul (3.5-10.8)
[2016-06-30 22:03] LABS: Albumin 3.1 g/dL (3.2-5.2); BUN/Creatinine Ratio 20.4 (8-20); Calcium 9.8 mg/dL (8.6-10.3); EGFR African American 19.9 (>60); EGFR Non-African American 15.5 (>60); Globulin 4.3 g/dL (2-4); Potassium 4.2 mmol/L (3.5-5.0); Total Bilirubin 1.5 mg/dL (0.2-1.0); Total Protein 7.4 g/dL (6.4-8.9)
--- NOTE | 2016-06-30 22:04 | RAD ---
INDICATION: Shortness of breath. COMPARISON: Chest x-ray dated June 20, 2016 TECHNIQUE: Single AP portable view of the chest was obtained. FINDINGS: Image quality is compromised due to the relative inferiority of a portable chest x-ray as well as the patient's large body habitus. Again seen is a cardiac pacemaker unchanged in the previous chest x-ray. There is moderate cardiomegaly. There are patchy densities and evidence of vascular congestion bilaterally. The diaphragm are adequately defined. There is mild bilateral costophrenic angle blunting. Visualized bones are normal for the patient's age. IMPRESSION: Chest x-ray findings are consistent with cardiogenic pulmonary edema with no substantial change since June 30, 2016 chest x-ray.
[2016-06-30 22:06] LABS: Troponin I 0.01 ng/mL (<0.04)
[2016-07-01] MEDS ORDERED: oxyCODONE TAB* 5 MG TAB PO PRN (00:43)
[2016-07-01] MEDS ORDERED: diPHENhydraMINE PO* 50 MG PO PRN (00:43)
[2016-07-01] MEDS ORDERED: Al Hydrox/Mg Hydrox/Simet LIQ* 30 ML UDC PO PRN (00:43)
[2016-07-01] MEDS ORDERED: Calcium Carbonate CHEW TAB* 500 MG (TUMS) PO PRN (00:43)
[2016-07-01] MEDS ORDERED: Nitroglycerin TAB 0.4 MG* 0.4 MG TAB SL PRN (00:43)
[2016-07-01] MEDS ORDERED: NS 0.9% 1000 ML* 1,000 ML IV SCH ×2 (00:45→11:45)
[2016-07-01 06:08] LABS: BUN/Creatinine Ratio 19.8 (8-20); Calcium 9.5 mg/dL (8.6-10.3); EGFR African American 19.2 (>60); Potassium 4.4 mmol/L (3.5-5.0)
[2016-07-01 07:53] LABS: FIO2 4
--- NOTE | 2016-07-01 07:55 | PN ---
Hospitalist Progress Note CAT call for confusion, twitching. On arrival patient was awake however he was confused. BP and O2 stable on 4-5L. Did not have BiPAP ordered overnight which he usually has at SNF. On exam, mild tachycardia, lungs with good air movement, no wheezes appreciated. CXR from last night showed some pulmonary edema. Check stat ABG, move down to ICU for BiPAP therapy. Will d/c IVF for now.
[2016-07-01 08:04] LABS: PCO2 Arterial 91 mmHg (35-45)
[2016-07-01] MEDS ORDERED: Senna/Docusate (NF) TAB PO SCH (09:00)
[2016-07-01] MEDS ORDERED: Albuterol/Ipratropium NEB.SOL* Albuterol 2.5 MG/Ipratropium 0.5 MG 3 ML INH SCH (09:00)
[2016-07-01] MEDS ORDERED: Morphine TAB Extended Release (*) 15 MG TAB.ER PO SCH (09:00)
[2016-07-01] MEDS ORDERED: Metoprolol Tartrate TAB* 50 mg PO SCH ×2 (09:00→15:26)
[2016-07-01] MEDS ORDERED: Isosorbide Mononitrate ER TAB* 30 MG PO SCH (09:00)
[2016-07-01 09:25] LABS: BIPAP y; EPAP 5; FIO2 50; IPAP 18
[2016-07-01 09:33] LABS: PCO2 Arterial 82 mmHg (35-45)
[2016-07-01 09:33] LABS: Urine Bacteria Absent (Absent); Urine Bilirubin Negative (Negative); Urine Glucose Negative (Negative); Urine Nitrite Negative (Negative)
[2016-07-01] MEDS: Docusate CAP* 100 MG PO SCH ×2 (09:50→22:18)
[2016-07-01] MEDS: Citalopram TAB* 20 MG PO SCH (09:50)
[2016-07-01] MEDS: Senna TAB PO SCH ×2 (09:50→22:18)
[2016-07-01] MEDS: Famotidine TAB* 20 MG PO SCH (09:50)
[2016-07-01] MEDS: Potassium Chlor TAB* 20 MEQ TAB.ER PO SCH (09:50)
[2016-07-01] MEDS: Bisacodyl EC TAB* 5 MG PO SCH (09:50)
[2016-07-01] MEDS: Aspirin EC Low Dose* 81 MG TAB.EC PO SCH (09:51)
[2016-07-01] MEDS: Psyllium PAK PO SCH (09:51)
[2016-07-01] MEDS: Polyethylene Glycol 3350* 17 GM PACKET PO SCH (09:51)
[2016-07-01] MEDS: Oxybutynin TAB* 5 MG PO SCH ×3 (10:41→22:18)
[2016-07-01] MEDS: Rivaroxaban TAB(*) 20 MG TAB PO SCH (10:42)
[2016-07-01] MEDS ORDERED: Albuterol 2.5 MG/3 ML NEB.SOL* (0.083%) INH PRN (10:59)
[2016-07-01] MEDS: Mometasone/Formoter 200/5 MDI INH SCH ×2 (11:00→21:00)
[2016-07-01] MEDS ORDERED: Naloxone* 0.4 MG/ML 1 ML VIAL IV PUSH ONE (12:21)
[2016-07-01] MEDS ORDERED: Naloxone* 0.4 MG/ML 1 ML VIAL ONE (12:25)
--- NOTE | 2016-07-01 12:57 | PN ---
Progress Note - Progress Note Note: Critical Care Medicine Asked to see this [address] Alvarez fuentes spectrum of acute issues that include hypotension, altered mental status, acute renal failure, and chronic respiratory failure with a history of CHF, COPD, and OHS. Patient transfered to ICU this AM and has been receiving IV fluids and noninvasive face mask ventilation. Earlier in ICU I saw patient was awake and eating with a nasal cannula in place. Allergy Sulfa Abx, Bee venom, Apple, [place] Flavoring PMH Cellulitis, PVD s/p metatarsal amputations bilat, Nephrolithiasis, UTI, A Flutter, SSS with PPM in place, PE and DVT, decutitae When I went to see patient he was quite poorly arousable Full Face Mask BiPAP in place FiO2 35 SpO2 100 IPAP 18 EPAP 5 SBP 76 HR 76 RR 13 I noted that prior medications include extended release Morphine and Oxycodone Gave orders for Narcan 0.4 mg IV x1 Shortly therafter blood pressures mike to 96-109 range and patient could be roused but was still somnolent Skin no diaphoresis, no cyanosis, chronic skin changes both forelegs Sclerae anicteric, pupils equal Oral mucosa pink Lungs with bilat BS, no wheezes, no rhonchi, no rales Cor No rub, no murmur Abd obese, nontender guzmán Ext with edema, amputation deformity of both feet Bilateral upper extremity PIVs WBC 12.4 Hgb 9.7 Plt 121 7.34/82/71 Lact 1.6 K 4.4 BUN/Creat 81/4.1 Alb 3.1 IMP: Morbedly obese male with large collection of chronic medical illnesses now with a spectrum of altered mentation with acute renal failure and hypotension that in part may well be caused by over-medication with opiate narcotics along with hypovolemia (especially with acumulation of morphine metabolites in face of IZABELLA). Suspect patient is hypovolemic due to poor PO intake in face of over- medication along with chronic diuretic therapy both of which contribute to his current hypotension which is exacerbated by cont'd administration of his longstanding hypotensive meds. Presently he seems to be non-oliguric. I do not believe his CXR demonstrates any pulmonary vascular congestion Hx CHF Hx COPD and OHS with chronic hypercapnea Hx PVD with bilateral metatarsal amputations Hx DVT and PE on NOAC Hx A Flutter and SSS with PPM...on NOAC Morbid Obesity with mild-moderate protein calorie malnutrition PLAN/REC: Narcan as done....to consider Narcan gtt till consistently more awake which I expect will coincide with recovery of kidneys and clearance of opiates Avoid sedating medications for now Will ultimately need a custodial plan to manage chronic pain issues in face of his advanced respiratory disease and cardiovascular disease. Continue IV hydration Continue BiPAP Oximetry Keep HOB raised DVT prophyl Discussed with Nurse and Dr Pino T>35 min, CCM services rendered
[2016-07-01] MEDS ORDERED: Naloxone* 2 MG in NS 0.9% 250 ML* 245 ML IV SCH (14:00)
--- NOTE | 2016-07-01 14:47 | RAD ---
INDICATION: Renal failure COMPARISON: CT abdomen pelvis May 04, 2016; renal sonogram August 26, 2015 TECHNIQUE: Longitudinal and transverse scans of the kidneys and bladder were obtained. This examination is significantly limited due to body habitus. There is a stated weight of 507 pounds. FINDINGS: Kidneys: The left kidney is not adequately evaluated. The right kidney measures 13.3 x 6.1 x 6.6 cm. There is no hydronephrosis or definite mass. Bladder: The bladder is partially distended. There are no intrinsic or extrinsic masses. The prevoid volume is 218 ml. A Chris catheter is present. Ureteral jets are document bilaterally. Other: None IMPRESSION: LIMITED STUDY DUE TO PATIENT SIZE. NONVISUALIZATION OF THE LEFT KIDNEY. NO DEFINITIVE SONOGRAPHIC ABNORMALITIES OF THE RIGHT KIDNEY. NO SIGNAL BLADDER WITH BILATERAL URETERAL JETS.
--- NOTE | 2016-07-01 15:13 | HP ---
HISTORY AND PHYSICAL: DATE OF ADMISSION: 07/01/2016. CHIEF COMPLAINT: "I was told my oxygen was low." HISTORY OF PRESENT ILLNESS: The patient is a 60-year-old gentleman recently discharged 1 week ago from [facility] with encephalopathy and presents back today from his alf facility because of concerns that his oxygen was too low. Apparently, the patient got to the ED and they turned up his on his nasal cannula and he was over 90% consistently. However, upon further evaluation, he was noted to have a creatinine near 4, which was new. He was aggressively diuresed during his last hospital stay. This certainly could have attributed to this. He currently denies any chest pain or shortness of breath and feels his usual state of health. He is quite tired, but it is early in the morning at this time. He has had no trouble urinating. He denies any fevers or chills. Denies any recent weight gain. PAST MEDICAL HISTORY: Significant for recent admission as noted earlier for encephalopathy duo to narcotic use or dehydration, chronic respiratory failure, cellulitis, DVT, pulmonary embolism, CHF, hypoventilation syndrome, peripheral vascular disease, atrial flutter, COPD, decubitus ulcers, and nephrolithiasis. PAST SURGICAL HISTORY: Bilateral metatarsal amputations, pacemaker placement. MEDICATIONS: Current medications are as follows: 1. Morphine sulfate ER 15 mg every 12 hours. 2. Metoprolol tartrate 50 mg twice daily. 3. Metolazone 2.5 mg daily. 4. Losartan 25 mg daily. 5. Isosorbide mononitrate 30 mg daily. 6. Citalopram 20 mg daily. 7. Calcium carbonate 1000 mg every 6 hours as needed. 8. Symbicort 2 puffs inhaled twice daily. 9. Bisacodyl 5 mg daily. 10. Aspirin 81 mg daily. 11. DuoNeb 1 nebulizer inhaled 3 times a day. 12. Maalox Plus 30 cc every 6 hours as needed. 13. Extra Strength Tylenol 1000 mg twice daily. 14. Senokot-S 8.6/50 two tabs twice daily. 15. Xarelto 20 mg daily. 16. Ranitidine 150 mg twice daily. 17. Psyllium 1 packet daily. 18. Lyrica 100 mg 3 times a day. 19. Potassium chloride 20 mEq daily. 20. MiraLAX 17 g daily. 21. Oxycodone 10 mg every 4 hours as needed. 22. Ditropan 5 mg 3 times a day. 23. Nitrostat 0.4 mg sublingual q.5 minutes as needed. 24. Benadryl 50 mg every 6 hours as needed. 25. Torsemide 40 mg twice daily. 26. Flomax 0.4 mg daily. 27. Tobramycin ophthalmologic solution 1 drop both eyes every 4 hours as needed. ALLERGIES: He has allergies/adverse reaction to SULFA, [place], BEE STINGS, BL[place] FLAVOR, BEE VENOM, and APPLES. FAMILY HISTORY: Mother had CVA. SOCIAL HISTORY: No tobacco, alcohol, or recreational drug use. Surrogate decision maker is his brother, J Luis. REVIEW OF SYSTEMS: A 14-point review of systems was completed with the patient. All pertinent positives and negatives are in the history of present illness, otherwise is negative. PHYSICAL EXAMINATION GENERAL: Obese gentleman, lying in bed, in no acute distress. VITAL SIGNS: Temperature 98.1 degrees, heart rate 70 beats per minute, respiratory rate breaths per minute, pulse ox 91%, blood pressure 102/55. HEENT: Normocephalic, atraumatic. Pupils are equal, round, and reactive to light. Moist mucous membranes. NECK: Supple. No JVD, bruits, palpable thyroid, or lymphadenopathy. CHEST: Diminished breath sounds bilaterally. CARDIOVASCULAR: S1, S2 appreciated. ABDOMEN: Morbidly obese, positive bowel sounds in all 4 quadrants. Soft, nontender, nondistended. EXTREMITIES: No cyanosis or clubbing. He has got bilateral erythema, venous stasis changes, and significant edema. NEURO: Alert and oriented x3. Moves all extremities. SKIN: Other than the aforementioned lesions on his legs, no distinct rashes or abnormalities. DIAGNOSTIC STUDIES/LAB DATA: White count 12.4, hemoglobin 9.7, hematocrit 30, platelets 121. Sodium 131, potassium 4.2, chloride 81, carbon dioxide 44, BUN 81, creatinine 2.98, glucose 128. Total bili 1.5. Troponin 0.01. Chest x-ray was interpreted by Radiology as chest x-ray findings consistent with cardiogenic pulmonary edema, no substantial change since his 06/20/16 chest x-ray. EKG shows normal sinus rhythm, 66 beats per minute, left axis deviation, left anterior hemiblock. Nonspecific ST-T wave changes. ASSESSMENT AND PLAN: 1. Acute renal failure, likely from diuresis while here. We will hold his diuretics. Hold nephrotoxic agents. We will place him on gentle hydration, normal saline at 100 cc an hour, monitor his BUN and creatinine. At this point , I do not see reason for Renal intervention, but if it does not improve, we will seek Nephrology's input. 2. Chronic respiratory failure. Continue oxygen BiPAP as needed. 3. Cellulitis. Actually significantly improved, not active. 4. History of deep venous thrombosis and pulmonary embolism. Continue Xarelto. 5. Congestive heart failure. We will monitor closely as we are giving him fluids, but I do not want him to go into congestive heart failure again, we will have to strike a balance between congestive heart failure and renal failure. 6. Obesity hypoventilation syndrome. Continue BiPAP and monitor. 7. Peripheral vascular disease. Continue current medical regimen with aspirin and monitor. 8. Atrial flutter, now in sinus. We will continue Xarelto. 9. Chronic obstructive pulmonary disease. Continue current regimen. 10. Decubitus ulcer. Turn the patient as often as possible, hopefully every 2 hours. 11. DVT prophylaxis. On Xarelto. 12. FEN. Low-fat diet. 13. The patient is a do not resuscitate. TIME SPENT: Over 75 minutes was spent on this H and P, more than 40 minutes was spent in direct [id number] contact with the patient in evaluation, physical exam, counseling, and coordination of care. CC: Avtar Bishop* [id number]/[facility] #: [id number] [facility] AREA HOSPITALShanta
--- NOTE | 2016-07-01 15:34 | PN ---
Subjective Date of Service: 07/01/16 Interval History: Seen throughout the day Events from this AM reviewed and discussed with covering provider This AM pt on BiPAP and denies SOB He was able to take off bipap and eat breakfast on NC while maintaining adequate SpO2 Denies pain Objective Active Medications: Acetaminophen (Tylenol Tab*) 975 mg PO BID PRN PRN Reason: FEVER/PAIN Al Hydrox/Mg Hydrox/Simethicone (Maalox Plus*) 30 ml PO Q6H PRN PRN Reason: NAUSEA Albuterol (Ventolin 2.5 Mg/3 Ml Neb.Brandy*) 2.5 mg INH Q4H PRN PRN Reason: SOB/WHEEZING Aspirin (Aspirin Ec Low Dose*) 81 mg PO DAILY [facility] Last Admin: 07/01/16 09:51 Dose: 81 mg Bisacodyl (Dulcolax Ec Tab*) 5 mg PO DAILY [facility] Last Admin: 07/01/16 09:50 Dose: 5 mg Calcium Carbonate (Tums*) 1,000 mg PO Q6HR PRN PRN Reason: INDIGESTION Citalopram Hydrobromide (Celexa Tab*) 20 mg PO DAILY [facility] Last Admin: 07/01/16 09:50 Dose: 20 mg Docusate Sodium (Colace Cap*) 200 mg PO BID [facility] Last Admin: 07/01/16 09:50 Dose: 200 mg Famotidine (Pepcid Tab*) 20 mg PO DAILY [facility] Last Admin: 07/01/16 09:50 Dose: 20 mg Sodium Chloride (Ns 0.9% 1000 Ml*) 1,000 mls @ 100 mls/hr IV PER RATE [facility] Stop: 07/01/16 21:44 Last Admin: 07/01/16 11:52 Dose: 100 mls/hr Naloxone HCl 2 mg/ Sodium (Chloride) 250 mls @ 125 mls/hr IV Q2H [facility] PRN Reason: 1 MG/HR Metoprolol Tartrate (Lopressor Tab*) 50 mg PO BID [facility] Mometasone Furoate/Formoterol Fumar (Dulera 200/5 Mdi*) 2 puff INH BID [facility] PRN Reason: Protocol Last Admin: 07/01/16 11:00 Dose: Not Given Nitroglycerin (Nitroglycerin Tab 0.4 Mg*) 0.4 mg SL Q5M PRN PRN Reason: chest pain Oxybutynin Chloride (Ditropan Tab*) 5 mg PO TID [facility] Last Admin: 07/01/16 14:28 Dose: 5 mg Polyethylene Glycol/Electrolytes (Miralax*) 17 gm PO DAILY [facility] Last Admin: 07/01/16 09:51 Dose: 17 gm Potassium Chloride (Klor Con Er Tab*) 20 meq PO DAILY [facility] Last Admin: 07/01/16 09:50 Dose: 20 meq Psyllium Hydrophilic Mucilloid (Metamucil Elan*) 1 pkt PO DAILY [facility] Last Admin: 07/01/16 09:51 Dose: 1 pkt Rivaroxaban (Xarelto (*)) 20 mg PO DAILY [facility] Last Admin: 07/01/16 10:42 Dose: 20 mg Senna (Senokot Tab*) 2 tab PO BID [facility] Last Admin: 07/01/16 09:50 Dose: 2 tab Tamsulosin HCl (Flomax Cap*) 0.4 mg PO 1700 [facility] Vital Signs 07/01/16 07/01/16 07/01/16 02:46 03:18 03:48 Temperature 98.1 F Pulse Rate 70 Respiratory 21 Rate Blood Pressure 102/55 (mmHg) O2 Sat by Pulse 91 93 98 Oximetry 07/01/16 07/01/16 07/01/16 08:16 08:20 08:31 Temperature 96.4 F Pulse Rate 85 Respiratory 18 Rate Blood Pressure 110/70 110/70 115/95 (mmHg) O2 Sat by Pulse 99 Oximetry 07/01/16 07/01/16 07/01/16 09:00 09:09 09:12 Temperature Pulse Rate 82 82 92 Respiratory 21 20 20 Rate Blood Pressure (mmHg) O2 Sat by Pulse 99 82 100 Oximetry 07/01/16 07/01/16 07/01/16 09:13 09:15 09:17 Temperature 98.1 F 98.3 F Pulse Rate 154 79 Respiratory 15 16 Rate Blood Pressure 86/28 90/64 (mmHg) O2 Sat by Pulse 100 89 100 Oximetry 07/01/16 07/01/16 07/01/16 09:30 09:45 10:00 Temperature 99.5 F 99.7 F 99.7 F Pulse Rate 73 70 81 Respiratory 17 16 16 Rate Blood Pressure 77/40 95/75 88/52 (mmHg) O2 Sat by Pulse 98 96 96 Oximetry 07/01/16 07/01/16 07/01/16 10:06 10:15 10:19 Temperature 99.7 F 99.7 F 99.7 F Pulse Rate 82 82 81 Respiratory 20 14 15 Rate Blood Pressure 81/31 81/63 98/56 (mmHg) O2 Sat by Pulse 98 97 100 Oximetry 07/01/16 07/01/16 07/01/16 11:00 11:02 11:41 Temperature 99.9 F 99.9 F Pulse Rate 72 75 Respiratory 17 15 11 Rate Blood Pressure 76/59 86/33 (mmHg) O2 Sat by Pulse 89 90 Oximetry 07/01/16 07/01/16 07/01/16 12:00 12:02 12:32 Temperature 99.9 F 99.9 F 99.9 F Pulse Rate 66 64 61 Respiratory 11 11 11 Rate Blood Pressure 76/39 78/61 96/59 (mmHg) O2 Sat by Pulse 100 100 99 Oximetry 07/01/16 07/01/16 07/01/16 12:36 12:45 13:00 Temperature 99.9 F 99.9 F 100.0 F Pulse Rate 70 68 65 Respiratory 17 14 15 Rate Blood Pressure 112/77 107/79 89/49 (mmHg) O2 Sat by Pulse 100 100 100 Oximetry 07/01/16 07/01/16 07/01/16 13:15 13:31 13:45 Temperature 100.1 F 100.1 F 100.2 F Pulse Rate 74 111 77 Respiratory 16 26 20 Rate Blood Pressure 89/74 105/66 85/48 (mmHg) O2 Sat by Pulse 100 77 100 Oximetry 07/01/16 07/01/16 14:00 14:15 Temperature 100.1 F 100.1 F Pulse Rate 75 78 Respiratory 19 19 Rate Blood Pressure 85/25 70/55 (mmHg) O2 Sat by Pulse 99 98 Oximetry Oxygen Devices in Use Now: CPAP/BiPAP Appearance: obese, tremulous, NAD Eyes: No Scleral Icterus, PERRLA Ears/Nose/Mouth/Throat: Clear Oropharnyx, Mucous Membranes Moist Neck: NL Appearance and Movements; NL JVP, Trachea Midline Respiratory: Symmetrical Chest Expansion and Respiratory Effort, - - distant Cardiovascular: RRR, - - distant HS Abdominal: NL Sounds; No Tenderness; No Distention, No Hepatosplenomegaly Lymphatic: No Cervical Adenopathy Extremities: - - trace to 1+ le edema Skin: - - symetric tibial erythema Neurological: - - AOx2 Lines/Tubes/Other Access: Clean, Dry and Intact Guzmán Result Diagrams: 06/30/16 21:40 07/01/16 05:36 Microbiology and Other Data: Microbiology 07/01/16 01:10 Nasal Screen MRSA (PCR)(GORDY) - Final Nasal Mrsa Positive Assess/Plan/Problems-Billing Assessment: 60 yo M h/o obesity hypoventilation, chronic pain, DVT/PE, CHF, aflutter presented with hypoxia and IZABELLA with stay complicated by hypercarbic/hypoxic respiratory failure - Patient Problems (1) Respiratory failure with hypoxia and hypercapnia Comment: In setting of absence of BiPAP and respiratory depression from narcatics with IZABELLA Responded well to narcan. (both BP, mental status, and respiratory status) Hold narcotics Also pulm vascular congestion Maintain guzmán holding diuresis in setting of IZABELLA c/w BiPAP asleep and awake with breaks for meals (2) Chronic pain Comment: holding narcotics as above (3) IZABELLA (acute kidney injury) Comment: Unclear etiology. BP may have been lower prior to presentation combined with diuresis Hold diuretics normal saline c/w bipap for afterload reduction (4) Diastolic CHF, acute Comment: holding diuretics (5) Obesity hypoventilation syndrome Comment: Continue BiPAP (6) Atrial fibrillation Comment: toprol and xarelto (7) DVT prophylaxis Comment: reynoldrelto
[2016-07-01] MEDS: Naloxone* 2 MG in NS 0.9% 250 ML* 245 ML IV SCH ×4 (16:09→22:18)
[2016-07-01] MEDS ORDERED: Tamsulosin CAP* 0.4 MG PO SCH (17:00)
[2016-07-02] MEDS: Naloxone* 2 MG in NS 0.9% 250 ML* 245 ML IV SCH ×4 (01:00→08:40)
[2016-07-02 01:35] LABS: BUN/Creatinine Ratio 28.5 (8-20); Calcium 9.3 mg/dL (8.6-10.3); EGFR African American 30.6 (>60); EGFR Non-African American 23.8 (>60); Potassium 3.6 mmol/L (3.5-5.0)
[2016-07-02 07:31] LABS: Hematocrit 26 % (42-52); Hemoglobin 8.5 g/dl (14.0-18.0); Mean Corpuscular HGB Conc 33 g/dl (31-36); Mean Corpuscular Hemoglobin 29 pg (27-31); Mean Corpuscular Volume 88 fL (80-94); Mean Platelet Volume 11 um3 (7.4-10.4); Red Blood Count 2.97 10^6/ul (4.0-5.4); Red Cell Distribution Width 20 % (10.5-15); White Blood Count 5.2 10^3/ul (3.5-10.8)
[2016-07-02 07:56] LABS: BUN/Creatinine Ratio 30.5 (8-20); EGFR African American 35.2 (>60); EGFR Non-African American 27.4 (>60); Magnesium 2.2 mg/dL (1.9-2.7); Phosphorus 5.7 mg/dL (2.5-5.0); Potassium 3.4 mmol/L (3.5-5.0)
[2016-07-02] MEDS: Polyethylene Glycol 3350* 17 GM PACKET PO SCH (08:42)
[2016-07-02] MEDS: Psyllium PAK PO SCH (08:42)
[2016-07-02] MEDS: Aspirin EC Low Dose* 81 MG TAB.EC PO SCH (08:43)
[2016-07-02] MEDS: Famotidine TAB* 20 MG PO SCH (08:43)
[2016-07-02] MEDS: Citalopram TAB* 20 MG PO SCH (08:43)
[2016-07-02] MEDS: Potassium Chlor TAB* 20 MEQ TAB.ER PO SCH (08:43)
[2016-07-02] MEDS: Senna TAB PO SCH ×2 (08:43→19:35)
[2016-07-02] MEDS: Docusate CAP* 100 MG PO SCH ×2 (08:43→19:35)
[2016-07-02] MEDS: Rivaroxaban TAB(*) 20 MG TAB PO SCH (08:43)
[2016-07-02] MEDS: Bisacodyl EC TAB* 5 MG PO SCH (08:43)
[2016-07-02] MEDS: Oxybutynin TAB* 5 MG PO SCH ×3 (08:43→19:35)
[2016-07-02] MEDS ORDERED: Piperac/Tazob 3.375 gm in NS* 3.375 GM/100 ML BAG IVPB ONE (10:00)
[2016-07-02] MEDS ORDERED: NS 0.9% 1000 ML* 1,000 ML IV SCH (10:00)
--- NOTE | 2016-07-02 10:02 | PN ---
Subjective Date of Service: 07/02/16 Interval History: Events reviewed. Pt examined Nalaxone gtt started yesterday afternoon in response to increased drowsiness. He woke up and conversed with family and friends then returned to heavy slumber. Concern for lethargy overnight and BMP checked without other necessary intervention. This AM, woke and consumed 75% breakfast. Wakes easily to voice. BP improved compared to yesterday. Net negative 694cc Denies pain, on BIPAP denies SOB Objective Active Medications: Acetaminophen (Tylenol Tab*) 975 mg PO BID PRN PRN Reason: FEVER/PAIN Al Hydrox/Mg Hydrox/Simethicone (Maalox Plus*) 30 ml PO Q6H PRN PRN Reason: NAUSEA Albuterol (Ventolin 2.5 Mg/3 Ml Neb.Brandy*) 2.5 mg INH Q4H PRN PRN Reason: SOB/WHEEZING Aspirin (Aspirin Ec Low Dose*) 81 mg PO DAILY [facility] Last Admin: 07/02/16 08:43 Dose: 81 mg Bisacodyl (Dulcolax Ec Tab*) 5 mg PO DAILY [facility] Last Admin: 07/02/16 08:43 Dose: 5 mg Calcium Carbonate (Tums*) 1,000 mg PO Q6HR PRN PRN Reason: INDIGESTION Citalopram Hydrobromide (Celexa Tab*) 20 mg PO DAILY [facility] Last Admin: 07/02/16 08:43 Dose: 20 mg Docusate Sodium (Colace Cap*) 200 mg PO BID [facility] Last Admin: 07/02/16 08:43 Dose: 200 mg Famotidine (Pepcid Tab*) 20 mg PO DAILY [facility] Last Admin: 07/02/16 08:43 Dose: 20 mg Piperacillin Sod/Tazobactam Sod (Zosyn 3.375 Gm In Ns Premix*) 3.375 gm in 100 mls @ 200 mls/hr IVPB ONCE ONE Stop: 07/02/16 10:29 Mometasone Furoate/Formoterol Fumar (Dulera 200/5 Mdi*) 2 puff INH BID [facility] PRN Reason: Protocol Last Admin: 07/01/16 21:00 Dose: Not Given Nitroglycerin (Nitroglycerin Tab 0.4 Mg*) 0.4 mg SL Q5M PRN PRN Reason: chest pain Oxybutynin Chloride (Ditropan Tab*) 5 mg PO TID [facility] Last Admin: 07/02/16 08:43 Dose: 5 mg Polyethylene Glycol/Electrolytes (Miralax*) 17 gm PO DAILY [facility] Last Admin: 07/02/16 08:42 Dose: 17 gm Potassium Chloride (Klor Con Er Tab*) 20 meq PO DAILY [facility] Last Admin: 07/02/16 08:43 Dose: 20 meq Psyllium Hydrophilic Mucilloid (Metamucil Elan*) 1 pkt PO DAILY [facility] Last Admin: 07/02/16 08:42 Dose: 1 pkt Rivaroxaban (Xarelto (*)) 20 mg PO DAILY [facility] Last Admin: 07/02/16 08:43 Dose: 20 mg Senna (Senokot Tab*) 2 tab PO BID [facility] Last Admin: 07/02/16 08:43 Dose: 2 tab Vital Signs 07/01/16 07/01/16 07/01/16 10:00 10:06 10:15 Temperature 99.7 F 99.7 F 99.7 F Pulse Rate 81 82 82 Respiratory 16 20 14 Rate Blood Pressure 88/52 81/31 81/63 (mmHg) O2 Sat by Pulse 96 98 97 Oximetry 07/01/16 07/01/16 07/01/16 10:19 11:00 11:02 Temperature 99.7 F 99.9 F 99.9 F Pulse Rate 81 72 75 Respiratory 15 17 15 Rate Blood Pressure 98/56 76/59 86/33 (mmHg) O2 Sat by Pulse 100 89 90 Oximetry 07/01/16 07/01/16 07/01/16 11:41 12:00 12:02 Temperature 99.9 F 99.9 F Pulse Rate 66 64 Respiratory 11 11 11 Rate Blood Pressure 76/39 78/61 (mmHg) O2 Sat by Pulse 100 100 Oximetry 07/01/16 07/01/16 07/01/16 12:32 12:36 12:45 Temperature 99.9 F 99.9 F 99.9 F Pulse Rate 61 70 68 Respiratory 11 17 14 Rate Blood Pressure 96/59 112/77 107/79 (mmHg) O2 Sat by Pulse 99 100 100 Oximetry 07/01/16 07/01/16 07/01/16 13:00 13:15 13:31 Temperature 100.0 F 100.1 F 100.1 F Pulse Rate 65 74 111 Respiratory 15 16 26 Rate Blood Pressure 89/49 89/74 105/66 (mmHg) O2 Sat by Pulse 100 100 77 Oximetry 07/01/16 07/01/16 07/01/16 13:45 14:00 14:15 Temperature 100.2 F 100.1 F 100.1 F Pulse Rate 77 75 78 Respiratory 20 19 19 Rate Blood Pressure 85/48 85/25 70/55 (mmHg) O2 Sat by Pulse 100 99 98 Oximetry 07/01/16 07/01/16 07/01/16 14:28 15:00 15:30 Temperature 100.0 F 99.8 F 99.8 F Pulse Rate 77 72 70 Respiratory 16 18 19 Rate Blood Pressure 97/77 110/89 76/28 (mmHg) O2 Sat by Pulse 99 94 98 Oximetry 07/01/16 07/01/16 07/01/16 15:56 16:00 16:03 Temperature 99.7 F 99.7 F Pulse Rate 67 68 Respiratory 14 14 15 Rate Blood Pressure 73/30 75/28 (mmHg) O2 Sat by Pulse 94 90 Oximetry 07/01/16 07/01/16 07/01/16 16:15 16:45 16:59 Temperature 99.6 F 99.4 F Pulse Rate 66 64 Respiratory 14 16 16 Rate Blood Pressure 79/34 101/39 (mmHg) O2 Sat by Pulse 96 100 Oximetry 07/01/16 07/01/16 07/01/16 17:00 17:15 17:22 Temperature 99.4 F 99.4 F 99.4 F Pulse Rate 64 63 62 Respiratory 14 16 16 Rate Blood Pressure 85/38 88/39 102/41 (mmHg) O2 Sat by Pulse 100 100 100 Oximetry 07/01/16 07/01/16 07/01/16 17:30 17:45 18:00 Temperature 99.3 F 99.4 F 99.4 F Pulse Rate 65 65 71 Respiratory 19 16 21 Rate Blood Pressure 115/46 120/97 118/45 (mmHg) O2 Sat by Pulse 96 99 100 Oximetry 07/01/16 07/01/16 07/01/16 18:07 18:15 18:30 Temperature 99.4 F 99.5 F Pulse Rate 71 69 69 Respiratory 18 15 15 Rate Blood Pressure 115/51 106/44 (mmHg) O2 Sat by Pulse 100 100 100 Oximetry 07/01/16 07/01/16 07/01/16 18:45 19:00 19:15 Temperature 99.5 F 99.5 F 99.5 F Pulse Rate 67 71 69 Respiratory 15 14 16 Rate Blood Pressure 110/46 133/63 116/47 (mmHg) O2 Sat by Pulse 100 97 99 Oximetry 07/01/16 07/01/16 07/01/16 19:30 19:45 20:00 Temperature 99.5 F Pulse Rate 66 73 Respiratory 15 14 Rate Blood Pressure 98/46 98/56 (mmHg) O2 Sat by Pulse 100 99 Oximetry 07/01/16 07/01/16 07/01/16 20:15 20:30 20:45 Temperature 99.4 F 99.4 F 99.4 F Pulse Rate 67 66 65 Respiratory 17 16 15 Rate Blood Pressure 99/37 89/36 90/45 (mmHg) O2 Sat by Pulse 97 98 99 Oximetry 07/01/16 07/01/16 07/01/16 21:00 21:15 21:30 Temperature 99.3 F 99.3 F 99.3 F Pulse Rate 63 64 70 Respiratory 15 16 14 Rate Blood Pressure 86/42 101/40 78/56 (mmHg) O2 Sat by Pulse 100 100 99 Oximetry 07/01/16 07/01/16 07/01/16 21:34 21:45 22:00 Temperature 99.3 F 99.4 F 99.4 F Pulse Rate 65 72 77 Respiratory 16 17 17 Rate Blood Pressure 115/42 131/50 120/37 (mmHg) O2 Sat by Pulse 100 98 100 Oximetry 07/01/16 07/01/16 07/01/16 22:15 22:30 22:45 Temperature 99.4 F 99.4 F 99.4 F Pulse Rate 74 71 67 Respiratory 16 15 17 Rate Blood Pressure 105/49 117/50 102/55 (mmHg) O2 Sat by Pulse 98 97 96 Oximetry 07/01/16 07/01/16 07/01/16 23:00 23:15 23:30 Temperature 99.3 F 99.3 F 99.3 F Pulse Rate 68 66 68 Respiratory 17 17 16 Rate Blood Pressure 98/56 92/46 111/58 (mmHg) O2 Sat by Pulse 98 97 98 Oximetry 07/01/16 07/01/16 07/02/16 23:44 23:45 00:00 Temperature 99.3 F 99.3 F Pulse Rate 72 66 68 Respiratory 22 17 16 Rate Blood Pressure 109/48 (mmHg) O2 Sat by Pulse 98 96 95 Oximetry 07/02/16 07/02/16 07/02/16 00:01 00:15 00:18 Temperature 99.3 F 99.2 F 99.2 F Pulse Rate 66 67 64 Respiratory 15 16 16 Rate Blood Pressure 91/42 81/56 86/43 (mmHg) O2 Sat by Pulse 97 97 97 Oximetry 07/02/16 07/02/16 07/02/16 00:30 00:45 01:00 Temperature 99.2 F 99.2 F 99.2 F Pulse Rate 64 59 66 Respiratory 14 15 17 Rate Blood Pressure 90/31 102/31 98/36 (mmHg) O2 Sat by Pulse 98 97 98 Oximetry 07/02/16 07/02/16 07/02/16 01:35 02:00 03:00 Temperature Pulse Rate 70 Respiratory 25 14 15 Rate Blood Pressure (mmHg) O2 Sat by Pulse 95 Oximetry 07/02/16 07/02/16 07/02/16 04:00 04:11 04:12 Temperature 99.0 F 99.0 F Pulse Rate 37 37 Respiratory 18 17 17 Rate Blood Pressure (mmHg) O2 Sat by Pulse 96 97 Oximetry 07/02/16 07/02/16 07/02/16 04:13 04:14 04:15 Temperature 99.0 F 99.0 F 99.0 F Pulse Rate 52 36 37 Respiratory 15 15 16 Rate Blood Pressure 104/45 (mmHg) O2 Sat by Pulse 96 97 95 Oximetry 07/02/16 07/02/16 07/02/16 04:16 04:17 04:18 Temperature 99.0 F 99.0 F 99.0 F Pulse Rate 37 47 36 Respiratory 16 16 15 Rate Blood Pressure (mmHg) O2 Sat by Pulse 96 95 96 Oximetry 07/02/16 07/02/16 07/02/16 04:19 04:20 04:21 Temperature 99.0 F 99.0 F 99.0 F Pulse Rate 56 39 52 Respiratory 15 16 16 Rate Blood Pressure (mmHg) O2 Sat by Pulse 96 96 95 Oximetry 07/02/16 07/02/16 07/02/16 04:22 04:23 04:24 Temperature 99.0 F 99.0 F 99.0 F Pulse Rate 40 39 69 Respiratory 15 16 15 Rate Blood Pressure (mmHg) O2 Sat by Pulse 96 96 95 Oximetry 07/02/16 07/02/16 07/02/16 04:25 04:26 04:27 Temperature 99.0 F 99.0 F 99.0 F Pulse Rate 73 72 64 Respiratory 15 15 15 Rate Blood Pressure (mmHg) O2 Sat by Pulse 95 96 97 Oximetry 07/02/16 07/02/16 07/02/16 04:28 04:29 04:30 Temperature 99.0 F 99.0 F 99.0 F Pulse Rate 36 57 49 Respiratory 16 15 16 Rate Blood Pressure 111/49 (mmHg) O2 Sat by Pulse 98 99 97 Oximetry 07/02/16 07/02/16 07/02/16 04:31 04:32 04:33 Temperature 99.0 F 99.0 F 99.0 F Pulse Rate 56 54 50 Respiratory 17 17 16 Rate Blood Pressure (mmHg) O2 Sat by Pulse 96 98 95 Oximetry 07/02/16 07/02/16 07/02/16 04:34 04:35 04:36 Temperature 99.0 F 99.0 F 99.0 F Pulse Rate 36 36 36 Respiratory 15 16 16 Rate Blood Pressure (mmHg) O2 Sat by Pulse 96 96 97 Oximetry 07/02/16 07/02/16 07/02/16 04:37 04:38 04:39 Temperature 99.0 F 99.0 F 99.0 F Pulse Rate 57 37 36 Respiratory 17 15 16 Rate Blood Pressure (mmHg) O2 Sat by Pulse 96 96 96 Oximetry 07/02/16 07/02/16 07/02/16 04:40 04:41 04:42 Temperature 99.0 F 99.0 F 99.0 F Pulse Rate 38 36 37 Respiratory 16 15 15 Rate Blood Pressure (mmHg) O2 Sat by Pulse 95 96 96 Oximetry 07/02/16 07/02/16 07/02/16 04:43 04:44 04:45 Temperature 99.0 F 99.0 F 99.0 F Pulse Rate 36 48 57 Respiratory 17 16 16 Rate Blood Pressure 117/41 (mmHg) O2 Sat by Pulse 96 98 96 Oximetry 07/02/16 07/02/16 07/02/16 04:46 04:47 04:48 Temperature 99.0 F 99.0 F 99.0 F Pulse Rate 36 38 36 Respiratory 16 16 16 Rate Blood Pressure (mmHg) O2 Sat by Pulse 96 96 96 Oximetry 07/02/16 07/02/16 07/02/16 04:49 04:50 04:51 Temperature 99.0 F 99.0 F 99.0 F Pulse Rate 36 37 39 Respiratory 16 16 16 Rate Blood Pressure (mmHg) O2 Sat by Pulse 97 96 96 Oximetry 07/02/16 07/02/16 07/02/16 04:52 04:53 04:54 Temperature 99.0 F 99.0 F 99.0 F Pulse Rate 36 37 36 Respiratory 15 16 15 Rate Blood Pressure (mmHg) O2 Sat by Pulse 97 96 96 Oximetry 07/02/16 07/02/16 07/02/16 04:55 04:56 04:58 Temperature 99.0 F 99.0 F 99.0 F Pulse Rate 37 65 68 Respiratory 16 15 16 Rate Blood Pressure (mmHg) O2 Sat by Pulse 96 96 94 Oximetry 07/02/16 07/02/16 07/02/16 04:59 05:00 05:01 Temperature 98.9 F 99.0 F 99.0 F Pulse Rate 54 59 66 Respiratory 14 15 14 Rate Blood Pressure 98/46 (mmHg) O2 Sat by Pulse 97 96 94 Oximetry 07/02/16 07/02/16 07/02/16 05:02 05:03 05:04 Temperature 99.0 F 99.0 F 98.9 F Pulse Rate 70 65 69 Respiratory 16 15 16 Rate Blood Pressure (mmHg) O2 Sat by Pulse 97 97 95 Oximetry 07/02/16 07/02/16 07/02/16 05:05 05:06 05:07 Temperature 99.0 F 98.9 F 98.9 F Pulse Rate 68 67 51 Respiratory 14 15 15 Rate Blood Pressure (mmHg) O2 Sat by Pulse 96 96 96 Oximetry 07/02/16 07/02/16 07/02/16 05:08 05:09 05:10 Temperature 98.9 F 98.9 F 98.9 F Pulse Rate 64 69 68 Respiratory 15 15 15 Rate Blood Pressure (mmHg) O2 Sat by Pulse 95 97 97 Oximetry 07/02/16 07/02/16 07/02/16 05:11 05:12 05:14 Temperature 98.9 F 98.9 F 98.9 F Pulse Rate 69 69 68 Respiratory 16 15 15 Rate Blood Pressure (mmHg) O2 Sat by Pulse 97 96 97 Oximetry 07/02/16 07/02/16 07/02/16 05:15 05:16 05:17 Temperature 98.9 F 98.9 F 98.9 F Pulse Rate 67 67 68 Respiratory 15 15 15 Rate Blood Pressure 93/47 (mmHg) O2 Sat by Pulse 97 96 96 Oximetry 07/02/16 07/02/16 07/02/16 05:18 05:19 05:20 Temperature 98.9 F 98.9 F 98.9 F Pulse Rate 69 68 67 Respiratory 14 15 16 Rate Blood Pressure (mmHg) O2 Sat by Pulse 96 96 97 Oximetry 07/02/16 07/02/16 07/02/16 05:21 05:22 05:23 Temperature 98.9 F 98.9 F 98.9 F Pulse Rate 69 69 75 Respiratory 16 15 14 Rate Blood Pressure (mmHg) O2 Sat by Pulse 97 97 97 Oximetry 07/02/16 07/02/16 07/02/16 05:24 05:25 05:26 Temperature 98.9 F 98.9 F 98.9 F Pulse Rate 76 73 70 Respiratory 15 14 14 Rate Blood Pressure (mmHg) O2 Sat by Pulse 97 96 95 Oximetry 07/02/16 07/02/16 07/02/16 05:27 05:28 05:29 Temperature 98.9 F 98.9 F 98.9 F Pulse Rate 69 58 55 Respiratory 14 15 14 Rate Blood Pressure (mmHg) O2 Sat by Pulse 95 95 96 Oximetry 07/02/16 07/02/16 07/02/16 05:30 05:31 05:32 Temperature 98.9 F 98.9 F 98.9 F Pulse Rate 67 72 71 Respiratory 15 17 14 Rate Blood Pressure 106/49 (mmHg) O2 Sat by Pulse 95 95 96 Oximetry 07/02/16 07/02/16 07/02/16 05:33 05:34 05:35 Temperature 98.9 F 98.9 F 98.9 F Pulse Rate 67 74 72 Respiratory 15 15 15 Rate Blood Pressure (mmHg) O2 Sat by Pulse 97 95 97 Oximetry 07/02/16 07/02/16 07/02/16 05:36 05:37 05:38 Temperature 98.9 F 98.9 F 98.9 F Pulse Rate 68 63 68 Respiratory 16 16 15 Rate Blood Pressure (mmHg) O2 Sat by Pulse 96 96 95 Oximetry 07/02/16 07/02/16 07/02/16 05:39 05:40 05:41 Temperature 98.8 F 98.8 F 98.8 F Pulse Rate 48 68 59 Respiratory 15 15 16 Rate Blood Pressure (mmHg) O2 Sat by Pulse 97 95 96 Oximetry 07/02/16 07/02/16 07/02/16 05:42 05:43 05:44 Temperature 98.8 F 98.8 F 98.8 F Pulse Rate 51 62 55 Respiratory 16 17 18 Rate Blood Pressure (mmHg) O2 Sat by Pulse 96 96 96 Oximetry 07/02/16 07/02/16 07/02/16 05:45 05:46 05:47 Temperature 98.8 F 98.8 F 98.8 F Pulse Rate 66 56 43 Respiratory 15 16 18 Rate Blood Pressure 91/39 (mmHg) O2 Sat by Pulse 96 97 96 Oximetry 07/02/16 07/02/16 07/02/16 05:48 05:49 05:50 Temperature 98.8 F 98.8 F 98.8 F Pulse Rate 35 54 58 Respiratory 17 19 16 Rate Blood Pressure (mmHg) O2 Sat by Pulse 96 96 95 Oximetry 07/02/16 07/02/16 07/02/16 05:51 05:52 06:42 Temperature 98.8 F 98.8 F 98.8 F Pulse Rate 59 53 36 Respiratory 17 17 15 Rate Blood Pressure (mmHg) O2 Sat by Pulse 95 97 96 Oximetry 07/02/16 07/02/16 07/02/16 06:43 06:44 06:45 Temperature 98.8 F 98.8 F 98.8 F Pulse Rate 57 65 56 Respiratory 15 15 15 Rate Blood Pressure 99/34 (mmHg) O2 Sat by Pulse 97 97 96 Oximetry 07/02/16 07/02/16 07/02/16 06:46 06:47 06:48 Temperature 98.8 F 98.8 F 98.8 F Pulse Rate 61 47 54 Respiratory 15 16 14 Rate Blood Pressure (mmHg) O2 Sat by Pulse 96 97 96 Oximetry 07/02/16 07/02/16 07/02/16 06:49 06:50 06:51 Temperature 98.8 F 98.8 F 98.8 F Pulse Rate 67 65 62 Respiratory 15 15 15 Rate Blood Pressure (mmHg) O2 Sat by Pulse 97 96 96 Oximetry 07/02/16 07/02/16 07/02/16 06:52 06:53 06:54 Temperature 98.8 F 98.8 F 98.8 F Pulse Rate 68 68 67 Respiratory 15 14 13 Rate Blood Pressure (mmHg) O2 Sat by Pulse 97 97 96 Oximetry 07/02/16 07/02/16 07/02/16 06:55 06:56 06:57 Temperature 98.8 F 98.8 F 98.8 F Pulse Rate 66 66 65 Respiratory 15 15 15 Rate Blood Pressure (mmHg) O2 Sat by Pulse 95 96 96 Oximetry 07/02/16 07/02/16 07/02/16 06:58 06:59 07:00 Temperature 98.8 F 98.8 F 98.8 F Pulse Rate 64 66 67 Respiratory 15 14 14 Rate Blood Pressure 94/31 (mmHg) O2 Sat by Pulse 95 97 93 Oximetry 07/02/16 07/02/16 07/02/16 07:01 07:02 07:03 Temperature 98.8 F 98.8 F 98.8 F Pulse Rate 63 67 54 Respiratory 14 15 14 Rate Blood Pressure (mmHg) O2 Sat by Pulse 94 96 97 Oximetry 07/02/16 07/02/16 07/02/16 07:04 07:05 07:06 Temperature 98.8 F 98.8 F 98.8 F Pulse Rate 63 58 58 Respiratory 15 15 15 Rate Blood Pressure (mmHg) O2 Sat by Pulse 96 95 97 Oximetry 07/02/16 07/02/16 07/02/16 07:07 07:08 07:09 Temperature 98.8 F 98.8 F 98.8 F Pulse Rate 69 69 69 Respiratory 15 16 15 Rate Blood Pressure (mmHg) O2 Sat by Pulse 98 98 96 Oximetry 07/02/16 07/02/16 07/02/16 07:10 07:11 07:12 Temperature 98.8 F 98.8 F 98.8 F Pulse Rate 59 56 66 Respiratory 15 14 15 Rate Blood Pressure (mmHg) O2 Sat by Pulse 97 97 97 Oximetry 07/02/16 07/02/16 07/02/16 07:13 07:14 07:15 Temperature 98.8 F 98.8 F 98.8 F Pulse Rate 65 49 47 Respiratory 15 15 15 Rate Blood Pressure 87/34 (mmHg) O2 Sat by Pulse 96 97 97 Oximetry 07/02/16 07/02/16 07/02/16 07:16 07:17 07:18 Temperature 98.8 F 98.8 F 98.8 F Pulse Rate 35 62 65 Respiratory 15 14 15 Rate Blood Pressure (mmHg) O2 Sat by Pulse 98 97 96 Oximetry 07/02/16 07/02/16 07/02/16 07:19 07:20 07:21 Temperature 98.8 F 98.8 F 98.8 F Pulse Rate 66 63 67 Respiratory 14 13 14 Rate Blood Pressure (mmHg) O2 Sat by Pulse 96 97 96 Oximetry 07/02/16 07/02/16 07/02/16 07:22 07:23 07:24 Temperature 98.8 F 98.8 F 98.8 F Pulse Rate 65 64 65 Respiratory 15 15 16 Rate Blood Pressure (mmHg) O2 Sat by Pulse 97 97 95 Oximetry 07/02/16 07/02/16 07/02/16 07:25 07:26 07:27 Temperature 98.7 F 98.7 F 98.7 F Pulse Rate 63 70 68 Respiratory 15 15 15 Rate Blood Pressure (mmHg) O2 Sat by Pulse 96 96 96 Oximetry 07/02/16 07/02/16 07/02/16 08:00 08:03 08:04 Temperature 98.7 F 98.7 F Pulse Rate 68 71 Respiratory 15 17 18 Rate Blood Pressure (mmHg) O2 Sat by Pulse 97 97 Oximetry 07/02/16 07/02/16 07/02/16 08:05 08:06 08:07 Temperature 98.7 F 98.7 F 98.7 F Pulse Rate 77 71 73 Respiratory 16 15 15 Rate Blood Pressure (mmHg) O2 Sat by Pulse 98 98 97 Oximetry 07/02/16 07/02/16 07/02/16 08:08 08:09 08:10 Temperature 98.6 F 98.6 F 98.6 F Pulse Rate 73 71 62 Respiratory 14 17 15 Rate Blood Pressure (mmHg) O2 Sat by Pulse 96 97 97 Oximetry 07/02/16 07/02/16 07/02/16 08:11 08:12 08:13 Temperature 98.6 F 98.6 F 98.6 F Pulse Rate 72 75 79 Respiratory 13 18 17 Rate Blood Pressure (mmHg) O2 Sat by Pulse 98 99 99 Oximetry 07/02/16 07/02/16 07/02/16 08:14 08:15 08:16 Temperature 98.6 F 98.7 F 98.7 F Pulse Rate 68 70 69 Respiratory 21 17 19 Rate Blood Pressure 102/46 (mmHg) O2 Sat by Pulse 98 98 98 Oximetry 07/02/16 07/02/16 07/02/16 08:17 08:18 08:19 Temperature 98.7 F 98.7 F 98.6 F Pulse Rate 71 76 71 Respiratory 17 20 19 Rate Blood Pressure (mmHg) O2 Sat by Pulse 99 99 99 Oximetry 07/02/16 07/02/16 07/02/16 08:20 08:21 08:22 Temperature 98.7 F 98.7 F 98.6 F Pulse Rate 75 72 73 Respiratory 16 16 22 Rate Blood Pressure (mmHg) O2 Sat by Pulse 98 98 96 Oximetry 07/02/16 07/02/16 07/02/16 08:23 08:24 08:25 Temperature 98.6 F 98.6 F 98.6 F Pulse Rate 71 71 72 Respiratory 17 16 19 Rate Blood Pressure (mmHg) O2 Sat by Pulse 96 96 96 Oximetry 07/02/16 07/02/16 07/02/16 08:26 08:27 08:28 Temperature 98.6 F 98.6 F 98.6 F Pulse Rate 69 70 56 Respiratory 19 18 17 Rate Blood Pressure (mmHg) O2 Sat by Pulse 97 96 96 Oximetry 07/02/16 07/02/16 07/02/16 08:29 08:30 08:31 Temperature 98.6 F 98.6 F 98.6 F Pulse Rate 58 60 72 Respiratory 13 15 18 Rate Blood Pressure 88/67 (mmHg) O2 Sat by Pulse 97 97 98 Oximetry 07/02/16 07/02/16 07/02/16 08:32 08:33 08:34 Temperature 98.6 F 98.6 F 98.6 F Pulse Rate 71 45 61 Respiratory 18 15 20 Rate Blood Pressure (mmHg) O2 Sat by Pulse 97 97 97 Oximetry 07/02/16 07/02/16 07/02/16 08:35 08:36 08:37 Temperature 98.6 F 98.6 F 98.6 F Pulse Rate 82 48 68 Respiratory 16 17 14 Rate Blood Pressure (mmHg) O2 Sat by Pulse 97 97 97 Oximetry 07/02/16 07/02/16 07/02/16 08:38 08:39 08:40 Temperature 98.6 F 98.6 F 98.6 F Pulse Rate 42 64 50 Respiratory 18 14 16 Rate Blood Pressure (mmHg) O2 Sat by Pulse 97 96 97 Oximetry 07/02/16 07/02/16 07/02/16 08:41 08:42 08:43 Temperature 98.6 F 98.6 F 98.6 F Pulse Rate 40 69 69 Respiratory 14 20 17 Rate Blood Pressure (mmHg) O2 Sat by Pulse 98 96 94 Oximetry 07/02/16 07/02/16 07/02/16 08:44 08:45 08:46 Temperature 98.6 F 98.6 F 98.6 F Pulse Rate 71 70 72 Respiratory 15 17 12 Rate Blood Pressure 88/42 (mmHg) O2 Sat by Pulse 95 97 96 Oximetry 07/02/16 07/02/16 07/02/16 08:47 08:48 08:50 Temperature 98.6 F 98.6 F 98.5 F Pulse Rate 71 37 41 Respiratory 14 16 14 Rate Blood Pressure (mmHg) O2 Sat by Pulse 97 96 97 Oximetry 07/02/16 07/02/16 07/02/16 08:51 08:52 08:53 Temperature 98.5 F 98.5 F 98.5 F Pulse Rate 39 52 61 Respiratory 16 16 14 Rate Blood Pressure (mmHg) O2 Sat by Pulse 97 97 97 Oximetry 07/02/16 07/02/16 07/02/16 08:54 08:55 08:56 Temperature 98.5 F 98.5 F 98.5 F Pulse Rate 50 34 36 Respiratory 16 15 17 Rate Blood Pressure (mmHg) O2 Sat by Pulse 97 97 98 Oximetry 07/02/16 07/02/16 07/02/16 08:57 08:58 08:59 Temperature 98.5 F 98.5 F 98.5 F Pulse Rate 38 36 71 Respiratory 13 13 16 Rate Blood Pressure (mmHg) O2 Sat by Pulse 98 99 99 Oximetry 07/02/16 07/02/16 07/02/16 09:00 09:01 09:02 Temperature 98.5 F 98.5 F 98.5 F Pulse Rate 81 41 45 Respiratory 18 15 16 Rate Blood Pressure 85/54 (mmHg) O2 Sat by Pulse 96 98 99 Oximetry 07/02/16 07/02/16 07/02/16 09:03 09:04 09:05 Temperature 98.5 F 98.5 F 98.5 F Pulse Rate 39 38 48 Respiratory 14 18 16 Rate Blood Pressure (mmHg) O2 Sat by Pulse 100 97 99 Oximetry 07/02/16 07/02/16 07/02/16 09:06 09:07 09:08 Temperature 98.4 F 98.4 F 98.4 F Pulse Rate 59 37 38 Respiratory 16 17 16 Rate Blood Pressure (mmHg) O2 Sat by Pulse 98 98 98 Oximetry 07/02/16 07/02/16 07/02/16 09:09 09:10 09:11 Temperature 98.4 F 98.4 F 98.4 F Pulse Rate 43 74 79 Respiratory 14 18 15 Rate Blood Pressure (mmHg) O2 Sat by Pulse 99 100 100 Oximetry 07/02/16 07/02/16 09:12 09:13 Temperature 98.4 F 98.4 F Pulse Rate 78 114 Respiratory 14 14 Rate Blood Pressure (mmHg) O2 Sat by Pulse 100 99 Oximetry Oxygen Devices in Use Now: CPAP/BiPAP Appearance: obese, lying 35 deg in bed, NAD Eyes: No Scleral Icterus, PERRLA Ears/Nose/Mouth/Throat: Clear Oropharnyx, Mucous Membranes Moist Respiratory: Symmetrical Chest Expansion and Respiratory Effort, - - decreased BS Cardiovascular: RRR, - - distant HS Abdominal: NL Sounds; No Tenderness; No Distention, No Hepatosplenomegaly Lymphatic: No Cervical Adenopathy Extremities: - - trace LE edema Neurological: Alert and Oriented x 3 Result Diagrams: 07/02/16 05:54 07/02/16 05:54 Microbiology and Other Data: Microbiology 07/01/16 01:10 Nasal Screen MRSA (PCR)(GORDY) - Final Nasal Mrsa Positive Assess/Plan/Problems-Billing Assessment: 60 yo M h/o obesity hypoventilation, chronic pain, DVT/PE, CHF, aflutter presented with hypoxia and IZABELLA with stay complicated by hypercarbic/hypoxic respiratory failure - Patient Problems (1) Respiratory failure with hypoxia and hypercapnia Comment: In setting of absence of BiPAP and respiratory depression from narcatics with IZABELLA Responded well to narcan. (both BP, mental status, and respiratory status) Hold narcotics, d/c narcan gtt Also pulm vascular congestion Maintain guzmán holding diuresis in setting of IZABELLA c/w BiPAP asleep and awake with breaks for meals (2) UTI (urinary tract infection) Comment: infection vs colonization in setting of relative hypotension will tx with zosyn and continue to reevaluate (3) Chronic pain Comment: holding narcotics as above denying pain (4) IZABELLA (acute kidney injury) Comment: Unclear etiology. BP may have been lower prior to presentation combined with diuresis Improved with fluids c/w 1L NS at 125cc Hold diuretics c/w bipap for afterload reduction (5) Diastolic CHF, acute Comment: holding diuretics (6) Obesity hypoventilation syndrome Comment: Continue BiPAP (7) Atrial fibrillation Comment: toprol and xarelto (8) DVT prophylaxis Comment: xarelto
[2016-07-02] MEDS: Mometasone/Formoter 200/5 MDI INH SCH ×2 (10:32→22:14)
[2016-07-02] MEDS: Piperac/Tazob 3.375 gm in NS* 3.375 GM/100 ML BAG IVPB SCH ×2 (13:24→21:48)
[2016-07-02] MEDS ORDERED: Collagenase 250 MG/GM OINT* 30 GM TOPICAL PRN (17:32)
[2016-07-02] MEDS: Acetaminophen TAB* 325 MG PO PRN (21:49)
[2016-07-03] MEDS: Naloxone* 2 MG in NS 0.9% 250 ML* 245 ML IV SCH (02:18)
[2016-07-03] MEDS: Piperac/Tazob 3.375 gm in NS* 3.375 GM/100 ML BAG IVPB SCH (05:18)
[2016-07-03 05:49] LABS: Hematocrit 27 % (42-52); Hemoglobin 8.4 g/dl (14.0-18.0); Mean Corpuscular HGB Conc 32 g/dl (31-36); Mean Corpuscular Hemoglobin 28 pg (27-31); Mean Corpuscular Volume 89 fL (80-94); Mean Platelet Volume 10 um3 (7.4-10.4); Red Cell Distribution Width 20 % (10.5-15); White Blood Count 3.3 10^3/ul (3.5-10.8)
[2016-07-03 05:51] LABS: Add Diff/Slide Review? Manual Diff Added; Comments Flag Yes
[2016-07-03 06:12] LABS: BUN/Creatinine Ratio 40.5 (8-20); Calcium 9.1 mg/dL (8.6-10.3); EGFR African American 62.4 (>60); EGFR Non-African American 48.5 (>60); Potassium 3.1 mmol/L (3.5-5.0)
[2016-07-03 06:28] LABS: Eosinophils % 4 % (0-6); Neutrophil % 56 % (38-83)
[2016-07-03 06:29] LABS: Add Path Review? YES; Hypochromasia 1+; Stomatocytes 1+
[2016-07-03] MEDS: Collagenase 250 MG/GM OINT* 30 GM TOPICAL SCH (07:44)
[2016-07-03] MEDS: Senna TAB PO SCH ×2 (07:53→19:56)
[2016-07-03] MEDS: Oxybutynin TAB* 5 MG PO SCH ×3 (07:53→19:59)
[2016-07-03] MEDS: Famotidine TAB* 20 MG PO SCH (07:53)
[2016-07-03] MEDS: Bisacodyl EC TAB* 5 MG PO SCH (07:53)
[2016-07-03] MEDS: Docusate CAP* 100 MG PO SCH ×2 (07:53→19:58)
[2016-07-03] MEDS: Potassium Chlor TAB* 20 MEQ TAB.ER PO SCH (07:53)
[2016-07-03] MEDS: Polyethylene Glycol 3350* 17 GM PACKET PO SCH (07:53)
[2016-07-03] MEDS: Citalopram TAB* 20 MG PO SCH (07:53)
[2016-07-03] MEDS: Aspirin EC Low Dose* 81 MG TAB.EC PO SCH (07:53)
[2016-07-03] MEDS: Psyllium PAK PO SCH (07:53)
[2016-07-03] MEDS: Rivaroxaban TAB(*) 20 MG TAB PO SCH (07:53)
[2016-07-03] MEDS: Mometasone/Formoter 200/5 MDI INH SCH ×2 (07:55→19:57)
[2016-07-03] MEDS ORDERED: Potassium Chlor TAB* 20 MEQ TAB.ER PO ONE (10:01)
[2016-07-03] MEDS ORDERED: NS 0.9% 1000 ML* 1,000 ML IV SCH (10:15)
[2016-07-03] MEDS: Ciprofloxacin TAB* 500 MG PO SCH ×2 (10:41→19:59)
--- NOTE | 2016-07-03 17:11 | PN ---
Subjective Date of Service: 07/03/16 Interval History: Seen and examined this AM Feels "much better" Much more awake Good appetite, ate all breakfast, stayed awake after, and is up off BIPAP, conversant, when I arrived around 1000 Objective Active Medications: Acetaminophen (Tylenol Tab*) 975 mg PO BID PRN PRN Reason: FEVER/PAIN Last Admin: 07/02/16 21:49 Dose: 975 mg Al Hydrox/Mg Hydrox/Simethicone (Maalox Plus*) 30 ml PO Q6H PRN PRN Reason: NAUSEA Albuterol (Ventolin 2.5 Mg/3 Ml Neb.Brandy*) 2.5 mg INH Q4H PRN PRN Reason: SOB/WHEEZING Aspirin (Aspirin Ec Low Dose*) 81 mg PO DAILY [facility] Last Admin: 07/03/16 07:53 Dose: 81 mg Bisacodyl (Dulcolax Ec Tab*) 5 mg PO DAILY [facility] Last Admin: 07/03/16 07:53 Dose: 5 mg Calcium Carbonate (Tums*) 1,000 mg PO Q6HR PRN PRN Reason: INDIGESTION Ciprofloxacin (Cipro Tab*) 500 mg PO Q12HR [facility] Last Admin: 07/03/16 10:41 Dose: 500 mg Citalopram Hydrobromide (Celexa Tab*) 20 mg PO DAILY [facility] Last Admin: 07/03/16 07:53 Dose: 20 mg Collagenase (Santyl 250 Mg/Gm Oint*) 1 applic TOPICAL DAILY [facility] Last Admin: 07/03/16 07:44 Dose: 1 applic Collagenase (Santyl 250 Mg/Gm Oint*) 1 applic TOPICAL . NEEDED PRN PRN Reason: WOUND CARE Docusate Sodium (Colace Cap*) 200 mg PO BID [facility] Last Admin: 07/03/16 07:53 Dose: 200 mg Famotidine (Pepcid Tab*) 20 mg PO DAILY [facility] Last Admin: 07/03/16 07:53 Dose: 20 mg Sodium Chloride (Ns 0.9% 1000 Ml*) 1,000 mls @ 125 mls/hr IV PER RATE [facility] Stop: 07/03/16 18:14 Last Admin: 07/03/16 10:41 Dose: 125 mls/hr Mometasone Furoate/Formoterol Fumar (Dulera 200/5 Mdi*) 2 puff INH BID [facility] PRN Reason: Protocol Last Admin: 07/03/16 07:55 Dose: 2 puff Nitroglycerin (Nitroglycerin Tab 0.4 Mg*) 0.4 mg SL Q5M PRN PRN Reason: chest pain Oxybutynin Chloride (Ditropan Tab*) 5 mg PO TID [facility] Last Admin: 07/03/16 14:37 Dose: 5 mg Polyethylene Glycol/Electrolytes (Miralax*) 17 gm PO DAILY [facility] Last Admin: 07/03/16 07:53 Dose: 17 gm Potassium Chloride (Klor Con Er Tab*) 20 meq PO DAILY [facility] Last Admin: 07/03/16 07:53 Dose: 20 meq Psyllium Hydrophilic Mucilloid (Metamucil Elan*) 1 pkt PO DAILY [facility] Last Admin: 07/03/16 07:53 Dose: 1 pkt Rivaroxaban (Xarelto (*)) 20 mg PO DAILY [facility] Last Admin: 07/03/16 07:53 Dose: 20 mg Senna (Senokot Tab*) 2 tab PO BID [facility] Last Admin: 07/03/16 07:53 Dose: 2 tab Vital Signs 07/02/16 07/02/16 07/02/16 17:15 17:30 17:45 Temperature 98.0 F 97.9 F 97.9 F Pulse Rate 62 59 58 Respiratory 16 13 14 Rate Blood Pressure (mmHg) O2 Sat by Pulse 97 94 95 Oximetry 07/02/16 07/02/16 07/02/16 18:00 18:15 18:30 Temperature 97.9 F 97.9 F 97.9 F Pulse Rate 64 74 60 Respiratory 16 15 12 Rate Blood Pressure 103/44 (mmHg) O2 Sat by Pulse 97 93 96 Oximetry 07/02/16 07/02/16 07/02/16 18:45 19:00 19:15 Temperature 97.9 F 97.9 F 98.0 F Pulse Rate 64 67 Respiratory 15 16 15 Rate Blood Pressure 100/32 (mmHg) O2 Sat by Pulse 99 96 94 Oximetry 07/02/16 07/02/16 07/02/16 19:30 19:45 20:00 Temperature 98.1 F 98.2 F 98.2 F Pulse Rate 69 Respiratory 16 14 17 Rate Blood Pressure (mmHg) O2 Sat by Pulse 93 95 95 Oximetry 0407/02/16 07/02/16 20:15 20:30 20:45 Temperature 98.3 F 98.3 F 98.2 F Pulse Rate Respiratory 18 16 15 Rate Blood Pressure (mmHg) O2 Sat by Pulse 96 95 94 Oximetry 07/02/16 07/02/16 07/02/16 21:00 21:15 21:30 Temperature 98.1 F 98.1 F 98.2 F Pulse Rate Respiratory 15 18 14 Rate Blood Pressure 113/47 (mmHg) O2 Sat by Pulse 98 98 99 Oximetry 07/02/16 07/02/16 07/02/16 21:45 21:52 22:00 Temperature 98.2 F 98.2 F Pulse Rate Respiratory 13 16 15 Rate Blood Pressure 110/31 (mmHg) O2 Sat by Pulse 91 99 Oximetry 07/02/16 07/02/16 07/02/16 22:15 22:30 22:45 Temperature 98.2 F 98.2 F 98.1 F Pulse Rate Respiratory 14 15 11 Rate Blood Pressure (mmHg) O2 Sat by Pulse 96 99 95 Oximetry 07/02/16 07/02/16 07/02/16 23:00 23:15 23:30 Temperature 98.0 F 97.8 F 97.7 F Pulse Rate Respiratory 11 10 13 Rate Blood Pressure 97/54 (mmHg) O2 Sat by Pulse 93 93 94 Oximetry 07/02/16 07/02/16 07/03/16 23:41 23:45 00:00 Temperature 97.6 F 97.5 F Pulse Rate Respiratory 16 14 15 Rate Blood Pressure (mmHg) O2 Sat by Pulse 96 95 Oximetry 07/03/16 07/03/16 07/03/16 00:01 00:06 00:15 Temperature 97.5 F 97.6 F 97.6 F Pulse Rate Respiratory 15 14 19 Rate Blood Pressure 100/45 (mmHg) O2 Sat by Pulse 95 94 92 Oximetry 07/03/16 07/03/16 07/03/16 00:30 00:45 01:00 Temperature 97.6 F 97.6 F 97.6 F Pulse Rate Respiratory 20 17 14 Rate Blood Pressure 104/51 (mmHg) O2 Sat by Pulse 95 96 98 Oximetry 07/03/16 07/03/16 07/03/16 01:15 01:30 01:45 Temperature 97.6 F 97.6 F 97.6 F Pulse Rate Respiratory 14 13 12 Rate Blood Pressure (mmHg) O2 Sat by Pulse 98 97 95 Oximetry 07/03/16 07/03/16 07/03/16 02:00 02:15 02:30 Temperature 97.5 F 97.4 F 97.4 F Pulse Rate Respiratory 14 14 15 Rate Blood Pressure 111/59 (mmHg) O2 Sat by Pulse 97 98 97 Oximetry 07/03/16 07/03/16 07/03/16 02:45 03:00 03:15 Temperature 97.4 F 97.4 F 97.4 F Pulse Rate Respiratory 15 15 13 Rate Blood Pressure 112/50 (mmHg) O2 Sat by Pulse 98 99 98 Oximetry 07/03/16 07/03/16 07/03/16 03:30 03:45 04:00 Temperature 97.5 F 97.5 F 97.5 F Pulse Rate Respiratory 15 16 17 Rate Blood Pressure 98/56 (mmHg) O2 Sat by Pulse 99 98 96 Oximetry 07/03/16 07/03/16 07/03/16 04:15 04:30 04:45 Temperature 97.5 F 97.5 F 97.5 F Pulse Rate Respiratory 18 13 14 Rate Blood Pressure (mmHg) O2 Sat by Pulse 98 97 98 Oximetry 07/03/16 07/03/16 07/03/16 05:00 05:15 05:30 Temperature 97.5 F 97.5 F 97.5 F Pulse Rate Respiratory 16 14 19 Rate Blood Pressure 112/42 (mmHg) O2 Sat by Pulse 99 99 99 Oximetry 07/03/16 07/03/16 07/03/16 05:45 06:00 06:15 Temperature 97.5 F 97.5 F 97.5 F Pulse Rate 48 Respiratory 14 14 16 Rate Blood Pressure 108/54 (mmHg) O2 Sat by Pulse 99 99 99 Oximetry 07/03/16 07/03/16 07/03/16 06:30 06:45 07:00 Temperature 97.5 F 97.5 F Pulse Rate 51 61 Respiratory 17 22 12 Rate Blood Pressure 118/51 (mmHg) O2 Sat by Pulse 99 96 Oximetry 07/03/16 07/03/16 07/03/16 07:15 07:30 07:45 Temperature 97.5 F 97.5 F 97.5 F Pulse Rate 49 48 55 Respiratory 14 14 16 Rate Blood Pressure (mmHg) O2 Sat by Pulse 98 99 100 Oximetry 07/03/16 07/03/16 07/03/16 08:00 08:04 08:15 Temperature 97.6 F 97.6 F 97.4 F Pulse Rate 58 57 56 Respiratory 17 16 16 Rate Blood Pressure 97/45 (mmHg) O2 Sat by Pulse 96 95 91 Oximetry 07/03/16 07/03/16 07/03/16 08:30 08:45 09:00 Temperature 97.3 F 97.3 F 97.4 F Pulse Rate 58 60 62 Respiratory 12 20 17 Rate Blood Pressure 101/47 (mmHg) O2 Sat by Pulse 94 94 92 Oximetry 07/03/16 07/03/16 07/03/16 09:15 09:30 09:45 Temperature 97.5 F 97.6 F 97.7 F Pulse Rate 67 46 124 Respiratory 13 17 14 Rate Blood Pressure (mmHg) O2 Sat by Pulse 92 95 95 Oximetry 07/03/16 07/03/16 07/03/16 10:00 10:15 15:19 Temperature 97.8 F 97.8 F 98.1 F Pulse Rate 93 65 52 Respiratory 18 19 18 Rate Blood Pressure 107/37 117/48 (mmHg) O2 Sat by Pulse 97 95 97 Oximetry 07/03/16 15:20 Temperature 98.1 F Pulse Rate 52 Respiratory 18 Rate Blood Pressure 117/48 (mmHg) O2 Sat by Pulse 97 Oximetry Oxygen Devices in Use Now: Nasal Cannula Appearance: obese, NAD Eyes: No Scleral Icterus, PERRLA Ears/Nose/Mouth/Throat: NL Teeth, Lips, Gums, Mucous Membranes Moist Neck: NL Appearance and Movements; NL JVP, Trachea Midline Respiratory: Symmetrical Chest Expansion and Respiratory Effort, Clear to Auscultation, - - distant Cardiovascular: RRR, - - distant HS Abdominal: NL Sounds; No Tenderness; No Distention, No Hepatosplenomegaly Lymphatic: No Cervical Adenopathy Extremities: - - trace LE edema Neurological: Alert and Oriented x 3 Result Diagrams: 07/03/16 05:16 07/03/16 05:16 Microbiology and Other Data: Microbiology 07/01/16 01:10 Nasal Screen MRSA (PCR)(GORDY) - Final Nasal Mrsa Positive Assess/Plan/Problems-Billing Assessment: 60 yo M h/o obesity hypoventilation, chronic pain, DVT/PE, CHF, aflutter presented with hypoxia and IZABELLA with stay complicated by hypercarbic/hypoxic respiratory failure - Patient Problems (1) Respiratory failure with hypoxia and hypercapnia Comment: In setting of absence of BiPAP and respiratory depression from narcatics with IZABELLA Responded well to narcan. (both BP, mental status, and respiratory status) Hold narcotics, d/c narcan gtt Also pulm vascular congestion Maintain guzmán holding diuresis in setting of IZABELLA c/w BiPAP when asleep (2) UTI (urinary tract infection) Comment: infection vs colonization in setting of relative hypotension will tx change from zosyn to cipro PO 07/03 (3) Chronic pain Comment: holding narcotics as above denying pain (4) IZABELLA (acute kidney injury) Comment: Suspect overdiuresis after brisk response to fluids c/w 1L NS at 125cc today Hold diuretics (5) Diastolic CHF, acute Comment: holding diuretics (6) Obesity hypoventilation syndrome Comment: Continue BiPAP (7) Atrial fibrillation Comment: toprol and xarelto (8) DVT prophylaxis Comment: xarelto
[2016-07-03] MEDS ORDERED: Polyethylene Glycol 3350* 17 GM PACKET PO ONE (19:00)
[2016-07-04 05:33] LABS: Hematocrit 28 % (42-52); Mean Corpuscular HGB Conc 32 g/dl (31-36); Mean Corpuscular Hemoglobin 29 pg (27-31); Mean Corpuscular Volume 88 fL (80-94); Mean Platelet Volume 9 um3 (7.4-10.4); Red Blood Count 3.16 10^6/ul (4.0-5.4); Red Cell Distribution Width 20 % (10.5-15); White Blood Count 3.9 10^3/ul (3.5-10.8)
[2016-07-04 05:47] LABS: Add Diff/Slide Review? Slide Review Added; Comments Flag Yes
[2016-07-04 05:49] LABS: BUN/Creatinine Ratio 41.5 (8-20); Calcium 9.6 mg/dL (8.6-10.3); EGFR African American 105.3 (>60); EGFR Non-African American 81.9 (>60); Potassium 3.8 mmol/L (3.5-5.0)
[2016-07-04] MEDS: Mometasone/Formoter 200/5 MDI INH SCH ×2 (08:46→19:09)
[2016-07-04] MEDS: Senna TAB PO SCH ×2 (10:48→22:54)
[2016-07-04] MEDS: Docusate CAP* 100 MG PO SCH ×2 (10:48→22:54)
[2016-07-04] MEDS: Rivaroxaban TAB(*) 20 MG TAB PO SCH (10:48)
[2016-07-04] MEDS: Aspirin EC Low Dose* 81 MG TAB.EC PO SCH (10:48)
[2016-07-04] MEDS: Citalopram TAB* 20 MG PO SCH (10:49)
[2016-07-04] MEDS: Famotidine TAB* 20 MG PO SCH (10:49)
[2016-07-04] MEDS: Psyllium PAK PO SCH (10:49)
[2016-07-04] MEDS: Ciprofloxacin TAB* 500 MG PO SCH ×2 (10:49→22:54)
[2016-07-04] MEDS: Polyethylene Glycol 3350* 17 GM PACKET PO SCH (10:49)
[2016-07-04] MEDS: Potassium Chlor TAB* 20 MEQ TAB.ER PO SCH (10:49)
[2016-07-04] MEDS: Oxybutynin TAB* 5 MG PO SCH ×3 (10:49→22:54)
[2016-07-04] MEDS: Bisacodyl EC TAB* 5 MG PO SCH (10:49)
[2016-07-04] MEDS: Collagenase 250 MG/GM OINT* 30 GM TOPICAL SCH (10:58)
--- NOTE | 2016-07-04 15:45 | PN ---
Subjective Date of Service: 07/04/16 Interval History: HOSPITALIST PROGRESS NOTE Patient seen and examined at bedside. He feels better now, but states he had a difficult night due to constipation. Improved now he had a BM. Denies dyspnea, CP, but he was napping without his BiPAP. Family History: Unchanged from Admission Social History: Unchanged from Admission Past Medical History: Unchanged from Admission Objective Active Medications: Acetaminophen (Tylenol Tab*) 975 mg PO BID PRN PRN Reason: FEVER/PAIN Last Admin: 07/02/16 21:49 Dose: 975 mg Al Hydrox/Mg Hydrox/Simethicone (Maalox Plus*) 30 ml PO Q6H PRN PRN Reason: NAUSEA Albuterol (Ventolin 2.5 Mg/3 Ml Neb.Brandy*) 2.5 mg INH Q4H PRN PRN Reason: SOB/WHEEZING Aspirin (Aspirin Ec Low Dose*) 81 mg PO DAILY [facility] Last Admin: 07/04/16 10:48 Dose: 81 mg Bisacodyl (Dulcolax Ec Tab*) 5 mg PO DAILY [facility] Last Admin: 07/04/16 10:49 Dose: 5 mg Calcium Carbonate (Tums*) 1,000 mg PO Q6HR PRN PRN Reason: INDIGESTION Ciprofloxacin (Cipro Tab*) 500 mg PO Q12HR [facility] Last Admin: 07/04/16 10:49 Dose: 500 mg Citalopram Hydrobromide (Celexa Tab*) 20 mg PO DAILY [facility] Last Admin: 07/04/16 10:49 Dose: 20 mg Collagenase (Santyl 250 Mg/Gm Oint*) 1 applic TOPICAL DAILY [facility] Last Admin: 07/04/16 10:58 Dose: 1 applic Collagenase (Santyl 250 Mg/Gm Oint*) 1 applic TOPICAL . NEEDED PRN PRN Reason: WOUND CARE Docusate Sodium (Colace Cap*) 200 mg PO BID [facility] Last Admin: 07/04/16 10:48 Dose: 200 mg Famotidine (Pepcid Tab*) 20 mg PO DAILY [facility] Last Admin: 07/04/16 10:49 Dose: 20 mg Mometasone Furoate/Formoterol Fumar (Dulera 200/5 Mdi*) 2 puff INH BID [facility] PRN Reason: Protocol Last Admin: 07/04/16 08:46 Dose: 2 puff Nitroglycerin (Nitroglycerin Tab 0.4 Mg*) 0.4 mg SL Q5M PRN PRN Reason: chest pain Oxybutynin Chloride (Ditropan Tab*) 5 mg PO TID [facility] Last Admin: 07/04/16 14:36 Dose: 5 mg Polyethylene Glycol/Electrolytes (Miralax*) 17 gm PO DAILY [facility] Last Admin: 07/04/16 10:49 Dose: 17 gm Potassium Chloride (Klor Con Er Tab*) 20 meq PO DAILY [facility] Last Admin: 07/04/16 10:49 Dose: 20 meq Psyllium Hydrophilic Mucilloid (Metamucil Elan*) 1 pkt PO DAILY [facility] Last Admin: 07/04/16 10:49 Dose: 1 pkt Rivaroxaban (Xarelto (*)) 20 mg PO DAILY [facility] Last Admin: 07/04/16 10:48 Dose: 20 mg Senna (Senokot Tab*) 2 tab PO BID [facility] Last Admin: 07/04/16 10:48 Dose: 2 tab Vital Signs 07/04/16 07/04/16 07/04/16 03:59 08:00 09:30 Temperature 97.8 F Pulse Rate 64 68 Respiratory 16 18 17 Rate Blood Pressure 131/94 153/74 (mmHg) O2 Sat by Pulse 100 99 Oximetry 07/04/16 13:49 Temperature 98.4 F Pulse Rate 63 Respiratory 18 Rate Blood Pressure 152/61 (mmHg) O2 Sat by Pulse 97 Oximetry Oxygen Devices in Use Now: Nasal Cannula Appearance: Super morbid obese male lying in bed in [facility]. Eyes: No Scleral Icterus Ears/Nose/Mouth/Throat: Mucous Membranes Moist Neck: Trachea Midline Respiratory: Symmetrical Chest Expansion and Respiratory Effort, Clear to Auscultation Cardiovascular: RRR - Normal S1 and S2 Abdominal: NL Sounds; No Tenderness; No Distention - obese Extremities: - - Mild LE edema Neurological: Alert and Oriented x 3, NL Muscle Strength and Tone Lines/Tubes/Other Access: Clean, Dry and Intact Peripheral IV Nutrition: Taking PO's Result Diagrams: 07/04/16 05:20 07/04/16 05:20 Assess/Plan/Problems-Billing Assessment: Mr. Shafer is a 60 yo M h/o super morbid obesity with BMI >70, obesity hypoventilation, chronic pain, DVT/PE, CHF, aflutter who presented with hypoxia and IZABELLA with stay complicated by hypercarbic/hypoxic respiratory failure - Patient Problems (1) Respiratory failure with hypoxia and hypercapnia Comment: - Secondary to lack of BiPAP and respiratory depression from narcotics with IZABELLA. - Responded well to Narcan. - Patient once again educated about importance of BiPAP while sleeping or naping. (2) UTI (urinary tract infection) Comment: - Suspect this likely represents colonization, but as patient was hypotensive, there is concern for possible infection. - Will continue treatment with Cipro. (3) Chronic pain Comment: - Narcotics held. - Pain seems to be controlled at this time. (4) IZABELLA (acute kidney injury) Comment: - Pre-renal in the setting of diuretic use. - Renal function back to normal. (5) Obesity hypoventilation syndrome Comment: - Continue BiPAP. (6) Atrial fibrillation Comment: - Resume Metoprolol and continue Xarelto. (7) DVT prophylaxis Comment: - Xarelto. (8) Full code status Status and Disposition: Inpatient.
[2016-07-04] MEDS: Metoprolol Tartrate TAB* 25 MG PO SCH (22:53)
[2016-07-04] MEDS: Acetaminophen TAB* 325 MG PO PRN (23:06)
[2016-07-05] MEDS: Mometasone/Formoter 200/5 MDI INH SCH ×2 (08:15→19:10)
[2016-07-05] MEDS: Rivaroxaban TAB(*) 20 MG TAB PO SCH (09:51)
[2016-07-05] MEDS: Ciprofloxacin TAB* 500 MG PO SCH ×2 (09:52→21:58)
[2016-07-05] MEDS: Famotidine TAB* 20 MG PO SCH (09:52)
[2016-07-05] MEDS: Citalopram TAB* 20 MG PO SCH (09:52)
[2016-07-05] MEDS: Potassium Chlor TAB* 20 MEQ TAB.ER PO SCH (09:52)
[2016-07-05] MEDS: Aspirin EC Low Dose* 81 MG TAB.EC PO SCH (09:52)
[2016-07-05] MEDS: Metoprolol Tartrate TAB* 25 MG PO SCH ×2 (09:52→21:58)
[2016-07-05] MEDS: Oxybutynin TAB* 5 MG PO SCH ×3 (09:53→22:11)
[2016-07-05] MEDS: Docusate CAP* 100 MG PO SCH ×2 (09:53→22:10)
[2016-07-05] MEDS: Bisacodyl EC TAB* 5 MG PO SCH (09:53)
[2016-07-05] MEDS: Collagenase 250 MG/GM OINT* 30 GM TOPICAL SCH (09:53)
[2016-07-05] MEDS: Psyllium PAK PO SCH (09:54)
[2016-07-05] MEDS: Polyethylene Glycol 3350* 17 GM PACKET PO SCH (09:54)
[2016-07-05] MEDS: Senna TAB PO SCH ×2 (09:54→22:11)
--- NOTE | 2016-07-05 15:03 | PN ---
Subjective Date of Service: 07/05/16 Interval History: HOSPITALIST PROGRESS NOTE Patient seen and examined at bedside. He feels well today, offers no new complaints. Family History: Unchanged from Admission Social History: Unchanged from Admission Past Medical History: Unchanged from Admission Objective Active Medications: Acetaminophen (Tylenol Tab*) 975 mg PO BID PRN PRN Reason: FEVER/PAIN Last Admin: 07/04/16 23:06 Dose: 975 mg Al Hydrox/Mg Hydrox/Simethicone (Maalox Plus*) 30 ml PO Q6H PRN PRN Reason: NAUSEA Albuterol (Ventolin 2.5 Mg/3 Ml Neb.Brandy*) 2.5 mg INH Q4H PRN PRN Reason: SOB/WHEEZING Aspirin (Aspirin Ec Low Dose*) 81 mg PO DAILY [facility] Last Admin: 07/05/16 09:52 Dose: 81 mg Bisacodyl (Dulcolax Ec Tab*) 5 mg PO DAILY [facility] Last Admin: 07/05/16 09:53 Dose: Not Given Calcium Carbonate (Tums*) 1,000 mg PO Q6HR PRN PRN Reason: INDIGESTION Ciprofloxacin (Cipro Tab*) 500 mg PO Q12HR [facility] Last Admin: 07/05/16 09:52 Dose: 500 mg Citalopram Hydrobromide (Celexa Tab*) 20 mg PO DAILY [facility] Last Admin: 07/05/16 09:52 Dose: 20 mg Collagenase (Santyl 250 Mg/Gm Oint*) 1 applic TOPICAL DAILY [facility] Last Admin: 07/05/16 09:53 Dose: 1 applic Collagenase (Santyl 250 Mg/Gm Oint*) 1 applic TOPICAL . NEEDED PRN PRN Reason: WOUND CARE Docusate Sodium (Colace Cap*) 200 mg PO BID [facility] Last Admin: 07/05/16 09:53 Dose: 200 mg Famotidine (Pepcid Tab*) 20 mg PO DAILY [facility] Last Admin: 07/05/16 09:52 Dose: 20 mg Metoprolol Tartrate (Lopressor Tab*) 25 mg PO BID [facility] Last Admin: 07/05/16 09:52 Dose: 25 mg Mometasone Furoate/Formoterol Fumar (Dulera 200/5 Mdi*) 2 puff INH BID [facility] PRN Reason: Protocol Last Admin: 07/05/16 08:15 Dose: 2 puff Nitroglycerin (Nitroglycerin Tab 0.4 Mg*) 0.4 mg SL Q5M PRN PRN Reason: chest pain Oxybutynin Chloride (Ditropan Tab*) 5 mg PO TID [facility] Last Admin: 07/05/16 14:01 Dose: 5 mg Polyethylene Glycol/Electrolytes (Miralax*) 17 gm PO DAILY [facility] Last Admin: 07/05/16 09:54 Dose: Not Given Potassium Chloride (Klor Con Er Tab*) 20 meq PO DAILY [facility] Last Admin: 07/05/16 09:52 Dose: 20 meq Psyllium Hydrophilic Mucilloid (Metamucil Elan*) 1 pkt PO DAILY [facility] Last Admin: 07/05/16 09:54 Dose: Not Given Rivaroxaban (Xarelto (*)) 20 mg PO DAILY [facility] Last Admin: 07/05/16 09:51 Dose: 20 mg Senna (Senokot Tab*) 2 tab PO BID [facility] Last Admin: 07/05/16 09:54 Dose: Not Given Vital Signs 07/04/16 07/04/16 07/05/16 16:15 20:00 00:04 Temperature 98.5 F Pulse Rate 67 56 Respiratory 16 16 19 Rate Blood Pressure 170/74 152/68 (mmHg) O2 Sat by Pulse 100 91 Oximetry 07/05/16 07/05/16 07/05/16 04:03 07:51 08:00 Temperature 98.6 F Pulse Rate 111 61 Respiratory 16 14 16 Rate Blood Pressure 132/82 147/76 (mmHg) O2 Sat by Pulse 100 100 Oximetry Oxygen Devices in Use Now: Nasal Cannula Appearance: Super morbid obese male, lying in bed in [facility]. Eyes: No Scleral Icterus Ears/Nose/Mouth/Throat: Mucous Membranes Moist Neck: Trachea Midline Respiratory: Symmetrical Chest Expansion and Respiratory Effort, Clear to Auscultation - decreased in bases Cardiovascular: RRR - Normal S1 and S2 Abdominal: NL Sounds; No Tenderness; No Distention - super obese Extremities: - - Mild bilateral LE edema Neurological: Alert and Oriented x 3, NL Muscle Strength and Tone Nutrition: Taking PO's Result Diagrams: 07/04/16 05:20 07/04/16 05:20 Assess/Plan/Problems-Billing Assessment: Mr. Shafer is a 60 yo M h/o super morbid obesity with BMI >70, obesity hypoventilation, chronic pain, DVT/PE, CHF, aflutter who presented with hypoxia and IZABELLA with stay complicated by hypercarbic/hypoxic respiratory failure - Patient Problems (1) Respiratory failure with hypoxia and hypercapnia Comment: - Secondary to lack of BiPAP and respiratory depression from narcotics with IZABELLA. - Responded well to Narcan. - Patient once again educated about importance of BiPAP while sleeping or naping. (2) UTI (urinary tract infection) Comment: - Suspect this likely represents colonization, but as patient was hypotensive, there is concern for possible infection. - Will continue treatment with Cipro. (3) Chronic pain Comment: - Narcotics held. - Pain seems to be controlled at this time. (4) IZABELLA (acute kidney injury) Comment: - Pre-renal in the setting of diuretic use. - Renal function back to normal. - Will start low dose diuretics and monitor. (5) Obesity hypoventilation syndrome Comment: - Continue BiPAP. (6) Atrial fibrillation Comment: - Continue Metoprolol and Xarelto. (7) DVT prophylaxis Comment: - Xarelto. (8) Full code status Status and Disposition: Inpatient. Patient is stable at this time, but will need safe discharge plan. He 's a very complex patient, and will need close monitoring to try and prevent other episodes of decompensation. Will request CM contacts SNF to discuss a safe discharge plan.
[2016-07-05] MEDS: Torsemide TAB* 20 MG PO SCH (17:46)
[2016-07-06] MEDS: Acetaminophen TAB* 325 MG PO PRN ×2 (01:53→14:55)
[2016-07-06 06:51] LABS: BUN/Creatinine Ratio 24.7 (8-20); Calcium 9.6 mg/dL (8.6-10.3); EGFR Non-African American 97.2 (>60); Potassium 3.3 mmol/L (3.5-5.0)
[2016-07-06 07:39] VITALS: BP 145/63
[2016-07-06] MEDS ORDERED: Potassium Chlor TAB* 20 MEQ TAB.ER PO SCH (09:00)
[2016-07-06] MEDS: Mometasone/Formoter 200/5 MDI INH SCH (09:06)
[2016-07-06] MEDS: Collagenase 250 MG/GM OINT* 30 GM TOPICAL SCH (10:12)
[2016-07-06] MEDS: Docusate CAP* 100 MG PO SCH (10:12)
[2016-07-06] MEDS: Bisacodyl EC TAB* 5 MG PO SCH (10:12)
[2016-07-06] MEDS: Polyethylene Glycol 3350* 17 GM PACKET PO SCH (10:13)
[2016-07-06] MEDS: Senna TAB PO SCH (10:13)
[2016-07-06] MEDS: Psyllium PAK PO SCH (10:13)
[2016-07-06] MEDS: Torsemide TAB* 20 MG PO SCH (10:45)
[2016-07-06] MEDS: Rivaroxaban TAB(*) 20 MG TAB PO SCH (10:45)
[2016-07-06] MEDS: Metoprolol Tartrate TAB* 25 MG PO SCH (10:46)
[2016-07-06] MEDS: Ciprofloxacin TAB* 500 MG PO SCH (10:46)
[2016-07-06] MEDS: Aspirin EC Low Dose* 81 MG TAB.EC PO SCH (10:46)
[2016-07-06] MEDS: Oxybutynin TAB* 5 MG PO SCH ×2 (10:46→14:55)
[2016-07-06] MEDS: Citalopram TAB* 20 MG PO SCH (10:46)
[2016-07-06] MEDS: Famotidine TAB* 20 MG PO SCH (10:46)
--- NOTE | 2016-07-06 17:06 | DS ---
CC: Dr. Vernell Baker; Joselin Robison NP, [facility] [place] DISCHARGE SUMMARY: DATE OF ADMISSION: 07/01/16 DATE OF DISCHARGE: 07/06/16 PRIMARY CARE PROVIDER: Dr. Vernell Baker. DISCHARGE DIAGNOSES: 1. Acute kidney injury, prerenal, secondary to diuretic use. 2. Respiratory failure with hypoxia and hypercapnia, acute on chronic, secondary to lack of BiPAP and respiratory depression from narcotic use with acute kidney injury. 3. Pseudomonas urinary tract infection, not Chris catheter related, present on admission. 4. Mild thrombocytopenia. 5. Hypokalemia. SECONDARY DIAGNOSES: 1. Super morbid obesity with a BMI greater than 70. 2. Obesity hypoventilation syndrome. 3. Chronic pain. 4. History of deep venous thrombosis and pulmonary embolism. 5. Congestive heart failure. 6. Atrial flutter. 7. Peripheral vascular disease. 8. COPD. 9. Decubitus ulcer, present on admission. 10. Nephrolithiasis. MEDICATION LIST: Please note this medication list is much different from his admission one, as follows: 1. Acetaminophen 1000 mg p.o. b.i.d. as needed for pain. 2. Maalox Plus 30 mL p.o. q.6 hours p.r.n. indigestion. 3. Albuterol 2.5 mg/ipratropium 0.5 mg 1 nebulized 3 times a day. 4. Aspirin 81 mg p.o. daily. 5. Bisacodyl EC 5 mg p.o. daily p.r.n. constipation. 6. Symbicort 160/4.5 two puffs inhaled b.i.d. 7. Calcium carbonate 1000 mg p.o. q.6 hours p.r.n. indigestion. 8. Citalopram 20 mg p.o. daily. 9. Collagenase ointment to decubitus daily. 10. Benadryl 50 mg p.o. q.6 hours p.r.n. allergy. 11. Metoprolol tartrate 25 mg p.o. b.i.d. 12. Nitroglycerin 0.4 mg sublingual q.5 minutes p.r.n. chest pain, maximum 3 doses. 13. Oxybutynin 5 mg p.o. t.i.d. 14. MiraLAX 17 g p.o. daily as needed for constipation. 15. Potassium chloride 20 mEq p.o. daily. 16. Metamucil 1 packet p.o. daily, hold in case of loose stools. 17. Ranitidine 150 mg p.o. b.i.d. 18. Rivaroxaban 20 mg p.o. daily. 19. Senokot 2 tablets p.o. b.i.d. as needed for constipation. 20. Tamsulosin 0.4 mg p.o. daily. 21. Torsemide 10 mg p.o. daily. HOSPITAL COURSE: Ms. Shafer is a 60-year-old male whose past medical history as stated above, well known to the hospitalist service with multiple admissions , who was sent from [facility] [place] to the emergency room because of low oxygen saturation. His ED evaluation also revealed a significantly higher creatinine of 3.98 up from 1.12 the week before. The patient was admitted with the impression of acute kidney injury, likely secondary to diuretic use. Shortly after admission, the patient was clinical assessment team for confusion. The patient was described as awake, confused, and the impression was that this was secondary to no BiPAP use. He was transferred to the intensive care unit, BiPAP was initiated, and the blood gas showed the pH of 7.33 with a CO2 of 91. Abdomen/bladder ultrasound was a limited study due to the patient's size. We were unable to see the left kidney, but no definitive sonographic abnormality of the right kidney. He had bilateral ureteral jets. His urinalysis was abnormal on admission with 2+ protein, 3+ blood, 3+ LE, 3+ wbc's, and urine culture grew Pseudomonas aeruginosa, 75,000 to 100,000 colonies and Burkholderia multivorans greater than 100,000 colonies, sensitive to quinolones. The patient was initially treated with Zosyn and later on transitioned to ciprofloxacin. With IV hydration, the patient's renal function has normalized and his last creatinine prior to discharge is 0.81. The impression was that the patient's lethargy was secondary to renal failure in the setting of narcotic use. His narcotic has been discontinued and at this point, he is receiving only acetaminophen with good pain control. As the patient's renal function has improved, we have resumed his torsemide at a lower dose, but as I stated before, his medication list is much smaller at this point. We have discontinued metolazone, losartan, Imdur, and his torsemide dose has been greatly reduced, so he needs to be monitored closely for signs of fluid overload and some of his medications may be resumed depending on how he progress. At this point, he denied shortness of breath, his oxygen saturation is 97% on his usual 3 L and as long as he is compliant with his BiPAP, he seems to be doing well. His blood pressure has also been controlled on this edited medication regimen, but I believe, he may need some of those medications back, as he continues to recover. The patient had a Chris catheter placed on admission and this is being removed prior to discharge. The patient states that he is continent of urine, so I believe keeping the Chris in would not be beneficial for his decubitus and would increase risk of further urinary tract infection. The patient has had positive urine cultures repeatedly including Pseudomonas and I believe this may represent colonization and not infection. I believe further antibiotics are not indicated at this point. The patient is medically stable for discharge, but he remains at a great risk for readmission given the complexity of his clinical picture and comorbidities. I have discussed his case with the new provider at [facility] [place] (Joselin Robison NP). I feel this patient is not (classic) SNF placed patient that can be seen once a month. He will need closer monitoring to adjust his medications as needed and I believe, he would benefit of a BMP at least once a week, maybe even more frequent if medication changes are done. The hospital course and all these changes were discussed with Joselin Robison NP, and the patient will be discharged back to [facility] [place] today. PHYSICAL EXAMINATION: Vital Signs: Temperature 98.0, heart rate is 58, respiratory rate is 16, oxygen saturation 97% on 3 L nasal cannula, blood pressure is 145/63. General: The patient is a pleasant, morbidly obese male, lying in bed, in no acute distress. Chest: Breath sounds bilaterally with no added sounds. CVS: Normal S1 and S2. Regular rate and rhythm. Abdomen is obese. Bowel sounds present. Extremities: Mild bilateral lower extremity edema. Neuro: He is alert and oriented x3. Able to move all 4 extremities. DIET: Heart-healthy diet with calorie restriction for weight loss. ACTIVITIES: As tolerated. DISPOSITION: To [facility] [place]. STATUS WHILE IN THE HOSPITAL: Inpatient. Please keep in mind this is a summarized version of this patient's hospital stay. If you need more information, please feel free to call me at [phone] or please obtain the full medical records. TIME SPENT: Approximately 50 minutes was spent to complete this discharge. [id number]/CPS #: [id number] KIET
== END 2016-07-06 16:20 | DRG 133 ==
LOC: ED 21:03 → MED 07-01 01:03 → ICU 07-01 07:52 → MED 07-03 15:15
PROVIDERS: ADMIT Internal Medicine; ATTEND Internal Medicine
PROC: 5A09457 Assistance with Respiratory Ventilation, 24-96 Consecutive Hours, Continuous Positive Airway Pressure (ICD-10-PCS; principal; 2016-07-01)
DX: J96.22 Acute and chronic respiratory failure with hypercapnia (principal); N17.9 Acute kidney failure, unspecified; L89.313 Pressure ulcer of right buttock, stage 3; G93.89 Other specified disorders of brain; I50.9 Heart failure, unspecified; N39.0 Urinary tract infection, site not specified; E66.2 Morbid (severe) obesity with alveolar hypoventilation; Z68.45 Body mass index [BMI] 70 or greater, adult; I48.92 Unspecified atrial flutter; J96.21 Acute and chronic respiratory failure with hypoxia; B96.5 Pseudomonas (aeruginosa) (mallei) (pseudomallei) as the cause of diseases classified elsewhere; E87.6 Hypokalemia; G89.29 Other chronic pain; I73.9 Peripheral vascular disease, unspecified; J44.9 Chronic obstructive pulmonary disease, unspecified; Z95.0 Presence of cardiac pacemaker; Z89.422 Acquired absence of other left toe(s); Z89.421 Acquired absence of other right toe(s); Z79.82 Long term (current) use of aspirin; Z79.01 Long term (current) use of anticoagulants; Z79.891 Long term (current) use of opiate analgesic; Z79.899 Other long term (current) drug therapy; Z91.030 Bee allergy status; Z91.018 Allergy to other foods; Z88.2 Allergy status to sulfonamides; Z82.3 Family history of stroke; N20.0 Calculus of kidney
CPT/HCPCS: 36415; 36600; 71010; 76770; 80048; 80053; 81003; 81015; 82140; 82550; 82803; 83605; 83735; 84100; 84484; 85025; 85060; 87077; 87086; 87186; 87641; 93005; 94640; 94660; 94760; A9270-GY; J2310; J2543

== ENCOUNTER 2016-09-21 15:28 | Observation (INO) | payer MEDICAID ==
[2016-09-21] MEDS ORDERED: Aspirin Low Dose CHEW TAB* 81 MG PO ONE (16:36)
[2016-09-21 17:00] LABS: Hematocrit 39 % (42-52); Hemoglobin 12.5 g/dl (14.0-18.0); Mean Corpuscular HGB Conc 32 g/dl (31-36); Mean Corpuscular Hemoglobin 27 pg (27-31); Mean Corpuscular Volume 84 fL (80-94); Mean Platelet Volume 10 um3 (7.4-10.4); Red Blood Count 4.64 10^6/ul (4.0-5.4); Red Cell Distribution Width 16 % (10.5-15); White Blood Count 4.3 10^3/ul (3.5-10.8)
--- NOTE | 2016-09-21 17:08 | RAD ---
INDICATION: Chest pain COMPARISON: Multiple previous chest x-rays, most recently dated June 30, 2016 TECHNIQUE: Single AP portable view of the chest was obtained. FINDINGS: Image quality is compromised due to the relative inferiority of a portable chest x-ray and also by the patient's body habitus. Again seen is a single lead left upper chest cardiac pacemaker. There is cardiomegaly similar in appearance to the previous chest x-ray. The pulmonary vasculature appears mildly engorged and indistinct, but less so than the previous chest x-ray. The lungs are otherwise grossly clear. IMPRESSION: In the correct clinical setting chest x-ray findings could be compatible with cardiogenic pulmonary edema, but overall aeration is better than the June 30, 2016 chest x-ray.
[2016-09-21 17:17] LABS: Albumin 3.5 g/dL (3.2-5.2); BUN/Creatinine Ratio 10.6 (8-20); Calcium 9.3 mg/dL (8.6-10.3); EGFR African American 118.2 (>60); EGFR Non-African American 91.9 (>60); Globulin 3.8 g/dL (2-4); Potassium 3.8 mmol/L (3.5-5.0); Total Bilirubin 1.1 mg/dL (0.2-1.0); Total Protein 7.3 g/dL (6.4-8.9)
[2016-09-21] MEDS ORDERED: Nitroglycerin 0.4 MG/HR PATCH* (10 MG) TRANSDERM ONE (17:29)
[2016-09-21] MEDS ORDERED: Al Hydrox/Mg Hydrox/Simet LIQ* 30 ML UDC PO PRN (18:24)
[2016-09-21] MEDS ORDERED: Calcium Carbonate CHEW TAB* 500 MG (TUMS) PO PRN (18:24)
[2016-09-21] MEDS ORDERED: Polyethylene Glycol 3350* 17 GM PACKET PO PRN (18:24)
[2016-09-21] MEDS ORDERED: Albuterol/Ipratropium NEB.SOL* Albuterol 2.5 MG/Ipratropium 0.5 MG 3 ML INH PRN (18:24)
[2016-09-21] MEDS: Oxybutynin TAB* 5 MG PO SCH (22:21)
[2016-09-21] MEDS: Amoxicillin/Clavulanate TAB* 875 MG PO SCH (22:21)
[2016-09-21] MEDS: Senna TAB PO SCH (22:23)
[2016-09-21] MEDS: Docusate LIQ* 100 MG/10 ML UDC PO SCH (22:23)
[2016-09-21] MEDS: Metoprolol Tartrate TAB* 25 MG PO SCH (22:27)
[2016-09-21] MEDS ORDERED: Psyllium PAK PO SCH (22:30)
[2016-09-21] MEDS: Mometasone/Formoter 200/5 MDI INH SCH (22:50)
--- NOTE | 2016-09-22 00:08 | HP ---
CC: Joselin Robison NP, [facility] * HISTORY AND PHYSICAL: DATE OF ADMISSION: 09/21/16 ATTENDING PHYSICIAN: Anne Marie Fabian DO * (dictated by Carrie Contreras NP). PRIMARY CARE PROVIDER: Joselin Robison NP, at [facility]. CHIEF COMPLAINT: Chest pain with radiation to left shoulder and jaw. HISTORY OF PRESENT ILLNESS: Mr. Shafer is a 60-year-old male with past medical history significant for chronic respiratory failure, hypoventilation syndrome, deep vein thrombosis, pulmonary embolus, diastolic congestive heart failure and peripheral vascular disease who presented to the emergency room from [facility] with complaints of chest pain and tightness that started overnight. The patient states that he had radiating pain to his left shoulder and jaw. The patient received nitro and felt that he had some relief of his symptoms. The patient denies any fever, chills, diaphoresis, or shortness of breath. The patient reports some nausea earlier today and he was unable to eat his lunch. The patient reports chronic skin breakdown to his buttocks that is treated with Medihoney. The patient uses a BIPAP at night. The patient reports that his last stress test was approximately 8 years ago. He follows with Dr. Casillas for his pacemaker that he had inserted for sinus pauses. Due to concern for the patient's continued chest discomfort, he was sent to the emergency for further evaluation of his symptoms. While in the emergency room, the patient had an EKG showing a paced rhythm. The previous EKG showed a sinus rhythm, no acute signs of ischemia. The patient had labs that were within normal limits and unremarkable. He had a troponin of 0.00. The patient reports slight pain continued in his chest, this is non-reproducible. The patient states when he had his cardiac cath done 8 years ago that it was a "clean cath." The patient had a chest x-ray showing pulmonary edema that is improved from 06/30/16. Hospitalists were asked to evaluate the patient for admission. PAST MEDICAL HISTORY: 1. Encephalopathy. 2. Chronic respiratory failure. 3. Cellulitis. 4. DVT. 5. Chronic obstructive pulmonary disease. 6. Atrial flutter. 7. Pulmonary embolus. 8. Diastolic congestive heart failure. 9. Hypoventilation syndrome. 10. Peripheral vascular disease. PAST SURGICAL HISTORY: 1. Status post bilateral metatarsal amputations. 2. Status post pacemaker insertion. 3. Status post ureteral stent placement approximately 6 months ago. HOME MEDICATIONS: Include: 1. Metoprolol 25 mg oral twice daily. 2. Symbicort 160-4.5 mg 2 puffs inhalation twice daily. 3. Aspirin 81 mg oral daily. 4. Celexa 20 mg oral daily. 5. Tamsulosin 0.4 mg oral daily. 6. Oxybutynin 5 mg oral 3 times daily. 7. Psyllium 28.3%, 1 tablespoon by mouth with 8 ounces of water every evening. 8. Xarelto 20 mg oral daily. 9. Ranitidine 150 mg oral twice daily. 10. Torsemide 10 mg oral daily. 11. Senokot 8.6-50 one tablet oral every 12 hours. 12. Potassium chloride 20 mEq oral daily. 13. Probiotic 1 tablet oral daily. 14. Acetaminophen 1000 mg oral every 8 hours. 15. Augmentin 875-125 one tablet oral every 12 hours, last dose was today. 16. Dulcolax 5 mg oral daily as needed for constipation. 17. MiraLax 17 g oral as needed for constipation. 18. Nitroglycerin 0.4 mg sublingual x3 as needed every 5 minutes for chest pain. 19. Diphenhydramine 50 mg oral daily as needed for allergy symptoms. 20. Calcium carbonate 1000 mg oral every 6 hours as needed for indigestion. 21. DuoNeb 0.5-2.5 mg inhalation 3 times daily as needed for shortness of breath or wheeze. 22. Mylanta 30 mL oral every 6 hours as needed for indigestion. 23. Senokot 8.6-50 mg 1 tablet twice daily as needed for constipation. 24. Oxygen 3 L per minute. 25. Thera Honey with Oxy Foam, change daily. ALLERGIES: APPLE, BEES, WALNUT, SULFA. FAMILY HISTORY: The patient reports a paternal uncle who had myocardial infarction in his 60s and a maternal grandmother who had a history of an AR. The patient denies any family history of diabetes mellitus. Patient had a paternal aunt with history of lung cancer and a cousin with history of breast cancer. SOCIAL HISTORY: The patient denies tobacco, alcohol, or recreational drug use. He is disabled and lives at [facility]. His brother, J Luis Shafer, will be his surrogate decision maker in the event he is unable to make decisions for himself. REVIEW OF SYSTEMS: I performed a 14-point review of systems. All the pertinent positives and negatives are mentioned in the history of present illness. The remaining review of systems is negative. PHYSICAL EXAMINATION GENERAL APPEARANCE: The patient is alert, pleasant, and appears to be in no acute distress. VITAL SIGNS: Temperature 97.5, heart rate 66, respiratory rate 16, O2 sat 94% on room air, blood pressure 124/55. HEENT: Normocephalic, atraumatic. Pupils are equal and reactive to light. Extraocular movements are intact. RESPIRATORY: There is no accessory muscle use and the lungs are clear to auscultation bilaterally. CARDIOVASCULAR: Regular rate and rhythm. S1 and S2 present. There is no murmurs, rubs or gallops heard. ABDOMEN: Soft, nontender, nondistended. There are bowel sounds present x4. EXTREMITIES: There is no lower extremity edema. DP and PT pulses are 2+ and symmetric. MUSCULOSKELETAL: There is no clubbing or cyanosis noted. The patient exhibits good strength in all extremities. NEUROLOGIC: The patient is alert and oriented x4. Cranial nerves II through XII are grossly intact. PSYCHOLOGICAL: The patient is calm and cooperative. SKIN: The patient has dressings to bilateral lower extremities. The patient also reports skin breakdown to his buttocks that has a dressing in place. DIAGNOSTIC STUDIES/LABORATORY DATA: Sodium 135, potassium 3.8, chloride 103, CO2 of 26, BUN 9, creatinine 0.85, glucose 96. Troponin 0.00. White blood cell count 4.3, hemoglobin 12.5, hematocrit 39, and platelet count 162,000. EKG shows a paced rhythm with a rate of 50. When compared to previous EKG, the previous EKG from 06/30/16 shows sinus rhythm with rate of 66 and no acute signs of ischemia, although at that time the patient had non-specific ST changes. Chest x-ray from today. Radiologist's impression: In the correct clinical setting, chest x-ray findings could be compatible with cardiogenic pulmonary edema, but overall aeration is better than 06/30/16 chest x-ray. IMPRESSION: Mr. Shafer is a 60-year-old male with past medical history significant for chronic respiratory failure, deep vein thrombosis, pulmonary embolus, diastolic congestive heart failure, chronic obstructive pulmonary disease, atrial fibrillation and peripheral vascular disease, who presents to the emergency room with complaints of chest pain and tightness. He will be admitted as an observation for chest pain, rule out acute coronary syndrome. ASSESSMENT/PLAN: 1. Chest pain. The patient will be admitted to rule out acute coronary syndrome. The patient's MAURI score is 1. We will monitor him on telemetry and trend his troponins. His initial troponin is 0.00. We will check fasting lipids in the morning. The patient's EKG from today is atrial paced. Prior to that, the patient was in sinus rhythm with nonspecific ST changes and an EKG from June of this year. We will get the patient a chemical stress test as he is unable to ambulate in the morning. The patient is already on a beta-melia and aspirin. 2. Chronic respiratory failure. The patient will be continued on BiPAP and supplemental oxygen. 3. History of deep venous thrombosis and pulmonary embolism. The patient will be continued on Xarelto. 4. Diastolic congestive heart failure. The patient does not appear to be in acute exacerbation at this time. He will be continued on his home medication of torsemide. 5. Obesity hypoventilation syndrome. The patient will have a BiPAP when he is napping and sleeping. 6. Peripheral vascular disease. The patient will be continued on aspirin. 7. History of atrial flutter. The patient will be continued on his Xarelto. 8. Chronic wounds. The patient will be continued on his [facility] daily dressing changes for his buttocks wound. The patient will be continued on lower extremity dressing changes every 3 days. 9. Fluids, electrolytes, and nutrition. The patient will be on a heart healthy diet. 10. Code status. Full code. 11. DVT prophylaxis. He is a highest risk and he will be continued on his home Xarelto. 12. Disposition. Observation for chest pain, rule out acute coronary syndrome. TIME SPENT: Time for this admission was 45 minutes, greater than half of that was spent with the patient discussing medications, past medical history, and the events leading up to his arrival today and performing a physical examination. The case has been reviewed with the attending, Dr. Fabian, who agrees with the plan of care. Reviewed by TOM AGUAYO 09/22/16 1831 [id number]/[facility] #: [id number] MTDD
[2016-09-22] MEDS: Acetaminophen TAB* 325 MG PO PRN ×2 (00:50→13:27)
[2016-09-22 05:22] LABS: HDL Cholesterol 29.8 mg/dL
[2016-09-22] MEDS: Mometasone/Formoter 200/5 MDI INH SCH (08:32)
[2016-09-22] MEDS ORDERED: Rivaroxaban TAB(*) 20 MG TAB PO SCH (09:00)
[2016-09-22] MEDS ORDERED: Lactobacillus Acidophilu (GG)* 1 CAP CAP PO SCH (09:00)
[2016-09-22] MEDS ORDERED: Famotidine TAB* 20 MG PO SCH (09:00)
[2016-09-22] MEDS ORDERED: Potassium Chlor TAB* 20 MEQ TAB.ER PO SCH (09:00)
[2016-09-22] MEDS ORDERED: Torsemide TAB* 20 MG PO SCH (09:00)
[2016-09-22] MEDS ORDERED: Citalopram TAB* 20 MG PO SCH (09:00)
[2016-09-22] MEDS ORDERED: Aspirin EC Low Dose* 81 MG TAB.EC PO SCH (09:00)
[2016-09-22] MEDS: Docusate LIQ* 100 MG/10 ML UDC PO SCH (09:10)
[2016-09-22] MEDS: Amoxicillin/Clavulanate TAB* 875 MG PO SCH (09:11)
[2016-09-22] MEDS: Oxybutynin TAB* 5 MG PO SCH ×2 (09:12→13:27)
[2016-09-22] MEDS: Metoprolol Tartrate TAB* 25 MG PO SCH (09:12)
[2016-09-22] MEDS: Senna TAB PO SCH (09:13)
--- NOTE | 2016-09-22 11:44 | PN ---
Subjective Date of Service: 09/22/16 Interval History: Patient seen and examined at bedside. Pt states that his chest tightness has improved and is almost gone. He reports feeling stressed recently as every time he prepares to be discharged from [facility] his ends up in the hospital. Denies fever, chills, shortness of breath, chest pain, N/V/D. Pt is anxious to get back to [facility] today. Tele: Sinus rhythm, rate 60's. PVCs noted. Family History: Unchanged from Admission Social History: Unchanged from Admission Past Medical History: Unchanged from Admission Objective Active Medications: Acetaminophen (Tylenol Tab*) 650 mg PO Q6H PRN Reason: PAIN Al Hydrox/Mg Hydrox/Simethicone (Maalox Plus*) 30 ml PO Q6H PRN Reason: INDIGESTION Albuterol/Ipratropium (Duoneb (Albuterol 2.5 Mg/Ipratropium 0.5 Mg)) 1 neb INH TID PRN Reason: RESPIRATORY DISTRESS Amoxicillin/Clavulanate Potassium (Augmentin Tab*) 875 mg PO BID [facility] Aspirin (Aspirin Ec Low Dose*) 81 mg PO DAILY [facility] Calcium Carbonate (Tums*) 1,000 mg PO Q6HR PRN Reason: INDIGESTION Citalopram Hydrobromide (Celexa Tab*) 20 mg PO DAILY [facility] Docusate Sodium (Colace Liq*) 50 mg PO Q12H [facility] Famotidine (Pepcid Tab*) 20 mg PO DAILY [facility] Reason: Protocol Lactobacillus Rhamnosus (Culturelle*) 1 cap PO DAILY [facility] Metoprolol Tartrate (Lopressor Tab*) 25 mg PO Q12HR [facility] Mometasone Furoate/Formoterol Fumar (Dulera 200/5 Mdi*) 2 puff INH BID [facility] Reason: Protocol Oxybutynin Chloride (Ditropan Tab*) 5 mg PO TID [facility] Polyethylene Glycol/Electrolytes (Miralax*) 17 gm PO DAILY PRN Reason: CONSTIPATION Potassium Chloride (Klor Con Er Tab*) 40 meq PO DAILY [facility] Psyllium Hydrophilic Mucilloid (Metamucil Elan*) 1 pkt PO 2100 [facility] Rivaroxaban (Xarelto (*)) 20 mg PO DAILY [facility] Senna (Senokot Tab*) 1 tab PO Q12HR [facility] Tamsulosin HCl (Flomax Cap*) 0.4 mg PO 1700 [facility] Torsemide (Demadex*) 20 mg PO DAILY [facility] Vital Signs 09/21/16 09/21/16 09/21/16 18:00 18:30 19:00 Temperature Pulse Rate 66 66 70 Respiratory 16 11 17 Rate Blood Pressure 124/55 132/64 128/63 (mmHg) O2 Sat by Pulse 94 93 91 Oximetry 09/21/16 09/21/16 09/21/16 19:23 20:00 22:26 Temperature 98.4 F Pulse Rate 60 71 Respiratory 20 20 18 Rate Blood Pressure 155/74 145/71 (mmHg) O2 Sat by Pulse 95 Oximetry 09/21/16 09/22/16 09/22/16 23:16 03:48 07:51 Temperature 98.6 F 98.3 F 98.7 F Pulse Rate 58 68 68 Respiratory 16 20 16 Rate Blood Pressure 136/66 149/75 157/76 (mmHg) O2 Sat by Pulse 97 95 96 Oximetry Oxygen Devices in Use Now: None Appearance: NAD, laying in bed Eyes: PERRLA Ears/Nose/Mouth/Throat: Mucous Membranes Moist Respiratory: Symmetrical Chest Expansion and Respiratory Effort, Clear to Auscultation Cardiovascular: NL Sounds; No Murmurs; No JVD, RRR Abdominal: NL Sounds; No Tenderness; No Distention Extremities: No Edema Skin: - - Dressing to bilateral LE clean, dry and intact Neurological: Alert and Oriented x 3 Lines/Tubes/Other Access: Clean, Dry and Intact Peripheral IV - site benign Nutrition: Taking PO's Result Diagrams: 09/21/16 16:47 09/21/16 16:47 Additional Lab and Data: Assess/Plan/Problems-Billing Assessment: - Patient Problems (1) Chest pain Code(s): R07.9 - CHEST PAIN, UNSPECIFIED SNOMED Code(s): 03221128 Comment: - Troponins 0.00 and 0.01 x 2. - Reports slight chest tightness this morning, but denies chest pain. - Sinus rhythm on telemetry. - EKG is similar to previous EKGs and shows no concerning ST depressions or elevations. - Patient is not a candidate for stress test due to weight. - He is agreeable pursuing outpatient follow-up with cardiology for possible outpatient stress test. (2) Chronic respiratory failure Code(s): J96.10 - CHRONIC RESPIRATORY FAILURE, UNSP W HYPOXIA OR HYPERCAPNIA SNOMED Code(s): 03471220 Comment: - Chronic hypoxic and hypercarbic - Continue BiPAP. (3) Diastolic heart failure Code(s): I50.30 - UNSPECIFIED DIASTOLIC (CONGESTIVE) HEART FAILURE SNOMED Code (s): 267160295 Comment: - Chronic. - Continue usual home diuretic regimen. (4) History of pulmonary embolism Code(s): Z86.711 - PERSONAL HISTORY OF PULMONARY EMBOLISM SNOMED Code(s): 831527123 Comment: - Continue Xarelto. (5) History of DVT (deep vein thrombosis) Code(s): Z86.718 - PERSONAL HISTORY OF OTHER VENOUS THROMBOSIS AND EMBOLISM SNOMED Code(s): 593145693 Comment: - High risk for VTE. - Continue Xarelto. (6) Obesity hypoventilation syndrome Code(s): E66.2 - MORBID (SEVERE) OBESITY WITH ALVEOLAR HYPOVENTILATION SNOMED Code(s): 134470815 Comment: - Continue BiPAP. (7) Morbid obesity with BMI of 60.0-69.9, adult Code(s): E66.01 - MORBID (SEVERE) OBESITY DUE TO EXCESS CALORIES; Z68.44 - BODY MASS INDEX (BMI) 60.0-69.9, ADULT SNOMED Code(s): 117409237 Comment: - Dx noted (8) DVT prophylaxis Code(s): CVU7061 - SNOMED Code(s): 990059603 Comment: - Xarelto (9) Full code status Status: Acute Code(s): Z78.9 - OTHER SPECIFIED HEALTH STATUS SNOMED Code(s) : 571492836 Status and Disposition: OBV. Stable for discharge to [facility] today.
--- NOTE | 2016-09-22 13:03 | DS ---
CC: Sean Robison NP at [facility], [place]* DISCHARGE SUMMARY: DATE OF ADMISSION: 09/21/16 DATE OF DISCHARGE: 09/22/16 ATTENDING PHYSICIAN: Dr. Anne Marie Fabian* (dictated by Carrie Contreras NP) PRIMARY CARE PROVIDER: Joselin Robison NP at [facility], [place] PRIMARY DIAGNOSIS: Atypical chest pain. SECONDARY DIAGNOSES: 1. Chronic hypoxic and hypercarbic respiratory failure. 2. History of deep vein thrombosis and pulmonary embolus. 3. Chronic diastolic heart failure. 4. Obesity hypoventilation syndrome. 5. Peripheral vascular disease. 6. Atrial flutter. 7. Chronic wounds. 8. Morbid obesity. STUDIES WHILE IN THE HOSPITAL: Chest x-ray from 09/21/16. Radiologist Impression: In the clinical correlation chest x-ray findings could be compatible with cardiogenic pulmonary edema, but overall aeration is better than 06/30/16 chest x- ray. DISCHARGE MEDICATIONS: Continued Home Medications: 1. Calcium carbonate 1000 mg oral every 6 hours as needed for indigestion. 2. Symbicort 160/4.5 two puffs inhalation twice daily. 3. Benadryl 50 mg oral every 6 hours as needed for allergy symptoms. 4. Xarelto 20 mg oral daily. 5. Acetaminophen 1000 mg oral every 8 hours as needed for pain. 6. Celexa 20 mg oral daily. 7. DuoNeb 1 neb inhalation 3x daily as needed for respiratory distress. 8. Nitroglycerin 0.4 mg sublingual every 5 minutes as needed for chest pain. 9. Tamsulosin 0.4 mg oral daily. 10. Oxybutynin 5 mg oral 3x daily. 11. Maalox Plus 30 mL oral every 6 hours as needed for indigestion. 12. Dulcolax ER 5 mg oral daily as needed for constipation. 13. MiraLax 17 g daily as needed for constipation. 14. Metamucil 1 pack oral daily. 15. Augmentin 875 mg twice daily. 16. Lactobacillus 1 capsule oral daily. 17. Potassium chloride 40 mEq oral daily. 18. Ranitidine 150 mg oral twice daily. 19. Aspirin 81 mg oral daily. 20. Senokot S 8.6-50 one tablet oral every 12 hours. 21. Torsemide 20 mg oral daily. 22. Metoprolol tartrate 25 mg oral every 12 hours. HISTORY OF PRESENT ILLNESS/HOSPITAL COURSE: Mr. Shafer is a 60-year-old male with past medical history significant for chronic hypoxic and hypercarbic respiratory failure, history of deep vein thrombosis and pulmonary embolus, chronic diastolic congestive heart failure, chronic obstructive pulmonary disease, atrial fibrillation, peripheral vascular disease, who presented to the emergency room with complaint of chest pain and tightness. The patient stated that his pain had started the night prior to his admission. He described it mostly as a chest tightness with occasional sharpness. He did report an episode of radiation of pain to his left shoulder and jaw. The patient denies any recent exercises or activities that could have exacerbated this pain. The patient does report that he has been feeling stressed about his rehabilitation as every time he is getting close to getting home he ends up in the hospital again and has a setback. The patient received nitroglycerin at [facility] and was sent to the emergency room for further evaluation of his symptoms. While in the emergency room the patient had an EKG showing a paced rhythm. Previous EKG showed a sinus rhythm with some nonspecific ST abnormalities. The patient had unremarkable labs. He had initial troponin 0.00. Patient reported slight chest tightness. His pain was non reproducible. He reports having had a cardiac catheterization and stress test approximately 8 years ago that was negative and showed a clean cath. The patient had a chest x-ray that showed a pulmonary edema that was improving from 06/30/16. Hospitalists were asked to evaluate the patient for admission. While in the hospital the patient was monitored on telemetry. He seemed to be in a sinus rhythm with occasional PVCs. Patient reported minimal chest discomfort, he feels is stress related. The patient was unable to undergo a stress test due to his weight. The patient's troponins were essentially flat at 0.00, 0.01 and 0.01. The patient's cholesterol was less than 175. The patient states that he due to be seen in followup with his geography teacher, Dr. Casillas, for pacemaker check. I recommend that he be evaluated for possible outpatient stress test at a facility able to handle a patient of his size. The patient's vital signs have been stable. Mr. Shafer is stable for discharge back to [facility], [place] today. Vital signs are as follows: Temperature 98.7, heart rate 68, respiratory rate 16, O2 sat 96%, blood pressure 157/76. DISCHARGE PLAN: Mr. Shafer will be discharged to home. ACTIVITY: As tolerated. He should continue physical therapy and occupational therapy as previously prescribed. DIET: He should be on a heart healthy diet. As far as the patient's chest pain, I suspect this is non cardiac in nature and is potentially caused by stress. He is feeling much better. I recommend following up to see if he could be scheduled as an outpatient for outpatient stress test at another facility that can handle a patient of his size at a later date. As far as the patient's other chronic medical conditions, he will be continued on his usual medications; there have been no changes in his medications. The patient should be seen in followup by his primary care provider in the next week. The patient should return to the emergency room for any chest pain or shortness of breath. This is a summarized report of a complex medical history and hospital stay. For further details, please see the entire medical record. TIME SPENT: Time for this discharge was approximately 45 minutes; greater than half of that was spent with the patient discussing discharge plans and instructions. CONDITION ON DISCHARGE: Stable. Reviewed by TOM AGUAYO 09/22/16 1833 [id number]/[facility] #: [id number] KIET
[2016-09-22 16:18] VITALS: BP 137/62
[2016-09-22] MEDS ORDERED: Tamsulosin CAP* 0.4 MG PO SCH (17:00)
== END 2016-09-22 18:25 ==
LOC: ED 15:28 → MEDTELE 17:49
PROVIDERS: ADMIT Internal Medicine; ATTEND Hospitalist
DX: R07.89 Other chest pain (principal); J96.11 Chronic respiratory failure with hypoxia; Z86.718 Personal history of other venous thrombosis and embolism; Z86.711 Personal history of pulmonary embolism; Z79.01 Long term (current) use of anticoagulants; I50.32 Chronic diastolic (congestive) heart failure; E66.2 Morbid (severe) obesity with alveolar hypoventilation; I73.9 Peripheral vascular disease, unspecified; I48.92 Unspecified atrial flutter; E66.01 Morbid (severe) obesity due to excess calories; Z79.899 Other long term (current) drug therapy; Z88.2 Allergy status to sulfonamides; Z68.44 Body mass index [BMI] 60.0-69.9, adult
CPT/HCPCS: 36415; 71010; 80053; 80061; 83605; 83880; 84484; 85025; 93005; 94640; 94660; 94760; 99285; A9270-GY; G0378

== ENCOUNTER 2017-04-03 16:04 | Observation (INO) | payer MEDICAID ==
[2017-04-03 17:33] LABS: ABS Basophils 0.1 10^3/ul (0-0.2); ABS Eosinophils 0.1 10^3/ul (0-0.6); ABS Lymphocytes 1.1 10^3/ul (1.0-4.8); ABS Monocytes 0.5 10^3/ul (0-0.8); ABS Neutrophils 4.1 10^3/ul (1.5-7.7); ABS Nucleated RBC 0 10^3/ul; Eosinophil % 1.8 % (0-6); Hematocrit 42 % (42-52); Hemoglobin 13.3 g/dl (14.0-18.0); Lymphocyte % 18.5 % (25-47); Mean Corpuscular HGB Conc 32 g/dl (31-36); Mean Corpuscular Hemoglobin 26 pg (27-31); Mean Corpuscular Volume 81 fL (80-94); Mean Platelet Volume 9 um3 (7.4-10.4); Nucleated Red Blood Cells % 0; Platelet Count 195 10^3/ul (150-450); Red Blood Count 5.15 10^6/ul (4.0-5.4); Red Cell Distribution Width 18 % (10.5-15); White Blood Count 5.9 10^3/ul (3.5-10.8)
[2017-04-03 17:44] LABS: EGFR Non-African American 80.6 (>60); INR 1.14 (0.77-1.02)
--- NOTE | 2017-04-03 17:45 | RAD ---
HISTORY: Shortness of breath COMPARISONS: September 21, 2016 VIEWS: 1: frontal portable view of the chest at 5:24 PM FINDINGS: LINES AND TUBES: A left-sided pacemaker is noted. CARDIOMEDIASTINAL SILHOUETTE: The cardiac silhouette is enlarged. The cardiomediastinal silhouette is otherwise normal for portable technique. PLEURA: The costophrenic angles are sharp. No pleural abnormalities are noted. LUNG PARENCHYMA: There is prominence of the central pulmonary vasculature. ABDOMEN: The upper abdomen is clear. There is no subphrenic gas. BONES AND SOFT TISSUES: No bone or soft tissue abnormalities are noted. IMPRESSION: CARDIOMEGALY WITH PULMONARY VASCULAR CONGESTION
[2017-04-03] MEDS ORDERED: Albuterol/Ipratropium NEB.SOL* Albuterol 2.5 MG/Ipratropium 0.5 MG 3 ML INH ONE ×2 (18:28→18:50)
[2017-04-03] MEDS ORDERED: methylPREDNISolone 125 MG* 2 ML VIAL IV ONE (18:50)
[2017-04-03] MEDS ORDERED: Calcium Carbonate CHEW TAB* 500 MG (TUMS) PO PRN (20:07)
[2017-04-03] MEDS ORDERED: Bisacodyl EC TAB* 5 MG PO PRN (20:07)
[2017-04-03] MEDS ORDERED: Senna/Docusate (NF) TAB PO PRN (20:07)
[2017-04-03] MEDS ORDERED: Acetaminophen TAB* 325 MG PO PRN (20:17)
[2017-04-03] MEDS ORDERED: Albuterol 2.5 MG/3 ML NEB.SOL* (0.083%) INH PRN (20:17)
[2017-04-03] MEDS ORDERED: CMCS: Melatonin (NF) 3 MG TAB PO PRN (20:17)
[2017-04-03] MEDS ORDERED: Ondansetron INJ* 2 MG/ML VIAL IV PRN (20:33)
--- NOTE | 2017-04-03 20:34 | HP ---
H&P (Free Text) History and Physical: PCP: Nuzhat Gilliland MD Date/Time: 04/03/20171999 CC: SOB, chest pain HPI: Mr Shafer is a super morbidly obese male HX obesity hypoventilation syndrome, chronic respiratory failure on 2L NC oxygen continuously, DVT & PE, AFIB, chronic diastolic HF, PAOD, chronic L 14mm ureterolith s/p stent scheduled for surgery this coming Wednesday at [facility], & chronic venous stasis who was discharged from [facility] 3 weeks ago after a 2 year stay. When he was discharged he related his breathing was good and his BLE were "completely healed ". In the interval, he has had gradual worsening of his respiratory status now stating he can barely walk 2-3 feet due to SOB which he blames on "black mold" in his apartment. Despite this he has no tachypnea and no hypoxia on his baseline 2L NC oxygen. Additionally, BLE have blistered and opened up in sores again. Overall, he appears at his baseline and ED had planned to discharge him home when he developed mild/moderate non-radiating non-exertional chest pressure without worsening SOB, N/V, palpitations, sweating, light-headedness, or other issues. ECG is unchanged. Troponin is zero. PMedHx chronic hypoxic respiratory failure on 2L NC oxygen continuously obesity hypoventilation on BiPap / nightly DVT & PE AFIB/AFLUT chronic diastolic HF BLE venous stasis w/ chronic ulcers/weeping PAOD s/p B metatarsal amputations chronic L 14mm distal ureteral stone s/p stent scheduled for surgery at [facility] this coming Wednesday Ambulatory Orders Nursing to reconcile. Calcium Carbonate CHEW TAB* [Tums*] 1,000 mg PO Q6HR PRN 12/03/15 Acetaminophen [Acetaminophen Extra Stren] 1,000 mg PO Q8HR PRN MDD 3000 mg 12/29 Rivaroxaban TAB(*) [Xarelto 20 mg] 20 mg PO DAILY 12/30/15 Nitroglycerin TAB 0.4 MG* 0.4 mg SL Q5M PRN 05/30/16 Bisacodyl EC TAB* [Dulcolax EC TAB*] 5 mg PO DAILY PRN #0 07/06/16 Aspirin EC Low Dose* [Ecotrin EC Low Dose 81 MG*] 81 mg PO DAILY 09/21/16 Metoprolol Tartrate TAB* [Lopressor TAB*] 25 mg PO Q12HR 09/21/16 Potassium Chlor TAB* [Potassium Chlor TAB 20 MEQ*] 40 meq PO DAILY 09/21/16 Sennosides-Docusate Sodium [Senokot S 8.6-50 mg] 1 tab PO Q12HR PRN 09/21/16 Torsemide TAB* [Demadex 20 MG*] 20 mg PO DAILY 09/21/16 Allergies Apple Allergy (Unknown, Verified 04/03/17 20:11) Unknown Reaction Details Bee Venom Allergy (Verified 04/03/17 20:11) Unknown Reaction Details Black Cullen Flavor Allergy (Verified 04/03/17 20:11) Unknown Reaction Details Sulfa Antibiotics Allergy (Verified 04/03/17 20:11) Rash walnut Allergy (Unknown, Uncoded 04/03/17 20:11) Unknown Reaction Details bee sting Allergy (Uncoded 04/03/17 20:11) Unknown Reaction Details PSurgHx pacer placement utereral stent B metatarsal amputation SocHx: no tobacco, alcohol, or recreational drugs; lives alone in an apartment w / 4h of [employer] service daily; FamHx: positive for early onset CAD, lung CA, & breast CA ROS: as above, otherwise reviewed and all were negative vitals: Vital Signs Temp 36.8 C 04/03/17 16:05 Pulse 86 04/03/17 20:30 Resp 18 04/03/17 20:30 BP 144/60 04/03/17 20:30 Pulse Ox 97 04/03/17 20:30 Intake & Output 04/02/17 04/03/17 04/03/17 23:59 11:59 23:59 Weight 190.509 kg Constitutional: NAD, normally developed, super morbidly obese white male HEENM: atraumatic; sclera/conjunctiva: anicteric/clear; hearing: clinically intact; oropharynx: clear, mucosa moist Neck: soft tissue: non-tender; thyroid: normal Pulmonary: diminished to auscultation bilaterally, poor aeration, no accessory muscle use CV: RR/RR, normal S1S2, no carotid bruit, no jugular venous distention, 1+ B DP/ PT, 2+ BLE edema Abdominal: soft, non-distended, non-tender, no rebound/guarding/rigidity, normoactive bowel sounds, no hepatosplenomegaly or masses, no costovertebral angle tenderness Musculoskeletal: general: B metatarsal Integumental: 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 & L anterior mid- reynaga Psychiatric orientation: AA&O to PPS affect: calm mood: cooperative eye contact: good content: reliable responses: timely insight: fair to poor Testing: Lab Results 04/03/17 04/03/17 04/03/17 Range/Units 17:15 17:15 17:15 WBC 5.9 (3.5-10.8) 10^3/ul RBC 5.15 (4.0-5.4) 10^6/ul Hgb 13.3 L (14.0-18.0) g/dl Hct 42 (42-52) % MCV 81 (80-94) fL MCH 26 L (27-31) pg MCHC 32 (31-36) g/dl RDW 18 H (10.5-15) % Plt Count 195 (150-450) 10^3/ul MPV 9 (7.4-10.4) um3 Neut % (Auto) 70.3 (38-83) % Lymph % (Auto) 18.5 L (25-47) % Guthrie % (Auto) 8.4 (1-9) % Eos % (Auto) 1.8 (0-6) % Baso % (Auto) 1.0 (0-2) % Absolute Neuts (auto) 4.1 (1.5-7.7) 10^3/ul Absolute Lymphs (auto) 1.1 (1.0-4.8) 10^3/ul Absolute Monos (auto) 0.5 (0-0.8) 10^3/ul Absolute Eos (auto) 0.1 (0-0.6) 10^3/ul Absolute Basos (auto) 0.1 (0-0.2) 10^3/ul Absolute Nucleated RBC 0 10^3/ul Nucleated RBC % 0 INR (Anticoag Therapy) (0.77-1.02) Sodium 137 (133-145) mmol/L Potassium 3.6 (3.5-5.0) mmol/L Chloride 99 L (101-111) mmol/L Carbon Dioxide 31 (22-32) mmol/L Anion Gap 7 (2-11) mmol/L BUN 15 (6-24) mg/dL Creatinine 0.95 (0.67-1.17) mg/dL Est GFR ( Amer) 103.7 (>60) Est GFR (Non-Af Amer) 80.6 (>60) BUN/Creatinine Ratio 15.8 (8-20) Glucose 112 H (70-100) mg/dL Lactic Acid (0.5-2.0) mmol/L Calcium 9.7 (8.6-10.3) mg/dL Total Bilirubin 1.00 (0.2-1.0) mg/dL AST 15 (13-39) U/L ALT 9 (7-52) U/L Alkaline Phosphatase 34 (34-104) U/L Total Creatine Kinase 105 (10-223) U/L Troponin I 0.00 (<0.04) ng/mL C-Reactive Protein 22.38 H (< 5.00) mg/L B-Natriuretic Peptide 18 ( - 100) pg/mL Total Protein 7.3 (6.4-8.9) g/dL Albumin 3.6 (3.2-5.2) g/dL Globulin 3.7 (2-4) g/dL Albumin/Globulin Ratio 1.0 (1-3) 04/03/17 04/03/17 Range/Units 17:15 17:15 WBC (3.5-10.8) 10^3/ul RBC (4.0-5.4) 10^6/ul Hgb (14.0-18.0) g/dl Hct (42-52) % MCV (80-94) fL MCH (27-31) pg MCHC (31-36) g/dl RDW (10.5-15) % Plt Count (150-450) 10^3/ul MPV (7.4-10.4) um3 Neut % (Auto) (38-83) % Lymph % (Auto) (25-47) % Guthrie % (Auto) (1-9) % Eos % (Auto) (0-6) % Baso % (Auto) (0-2) % Absolute Neuts (auto) (1.5-7.7) 10^3/ul Absolute Lymphs (auto) (1.0-4.8) 10^3/ul Absolute Monos (auto) (0-0.8) 10^3/ul Absolute Eos (auto) (0-0.6) 10^3/ul Absolute Basos (auto) (0-0.2) 10^3/ul Absolute Nucleated RBC 10^3/ul Nucleated RBC % INR (Anticoag Therapy) 1.14 H (0.77-1.02) Sodium (133-145) mmol/L Potassium (3.5-5.0) mmol/L Chloride (101-111) mmol/L Carbon Dioxide (22-32) mmol/L Anion Gap (2-11) mmol/L BUN (6-24) mg/dL Creatinine (0.67-1.17) mg/dL Est GFR ( Amer) (>60) Est GFR (Non-Af Amer) (>60) BUN/Creatinine Ratio (8-20) Glucose (70-100) mg/dL Lactic Acid 1.8 (0.5-2.0) mmol/L Calcium (8.6-10.3) mg/dL Total Bilirubin (0.2-1.0) mg/dL AST (13-39) U/L ALT (7-52) U/L Alkaline Phosphatase (34-104) U/L Total Creatine Kinase (10-223) U/L Troponin I (<0.04) ng/mL C-Reactive Protein (< 5.00) mg/L B-Natriuretic Peptide ( - 100) pg/mL Total Protein (6.4-8.9) g/dL Albumin (3.2-5.2) g/dL Globulin (2-4) g/dL Albumin/Globulin Ratio (1-3) ECG, personally reviewed: NSR rate 81, no ischemia CXR, personally reviewed: IMPRESSION: CARDIOMEGALY WITH PULMONARY VASCULAR CONGESTION Impression: 61M HX obesity hypoventilation syndrome, chronic respiratory failure on 2L NC oxygen continuously, DVT & PE, AFIB, chronic diastolic HF, PAOD , chronic L 14mm ureterolith s/p stent scheduled for surgery this coming Wednesday at [facility], & chronic venous stasis being observed for chest pressure without other cardiac symptomotology to r/o ACS DIAGNOSIS & PLAN Primary chest pressure r/o ACS : telemetry : trend troponin : supplemental oxygen : aspirin : ECHO in AM : supportive care BLE venous stasis w/ chronic ulcers/weeping : consider wound consult in AM Secondary chronic hypoxic respiratory failure on 2L NC oxygen continuously : supplemental oxygen obesity hypoventilation on BiPap / nightly : continue BiPap HX DVT & PE : continue rivaroxaban AFIB/AFLUT : review meds once reconciled chronic diastolic HF : review meds once reconciled PAOD s/p B metatarsal amputations : review medications once reconciled chronic L 14mm distal ureteral stone s/p stent scheduled for surgery at [facility] this coming Wednesday : no acute issues Admission Rational: observation for r/o ACS DVTp: rivaroxaban Code Status: full HCP: reinaerJ Luis
[2017-04-03] MEDS ORDERED: Senna TAB PO PRN (22:39)
[2017-04-03] MEDS ORDERED: Docusate CAP* 100 MG PO PRN (22:39)
[2017-04-03] MEDS: Metoprolol Tartrate TAB* 25 MG PO SCH (23:33)
[2017-04-04 00:57] LABS: Urine Appearance Cloudy; Urine Blood 3+ (Negative); Urine Color Yellow; Urine Ketones Negative (Negative); Urine Protein 2+(100 mg/dL) (Negative); Urine Specific Gravity 1.017 (1.010-1.030); Urine Urobilinogen Positive (Negative)
[2017-04-04] MEDS: oxyCODONE TAB* 5 MG TAB PO PRN ×2 (04:31→10:26)
[2017-04-04] MEDS ORDERED: Omeprazole CAP* 20 MG PO SCH (06:00)
[2017-04-04] MEDS ORDERED: Torsemide TAB* 20 MG PO SCH (09:00)
[2017-04-04] MEDS ORDERED: Aspirin EC Low Dose* 81 MG TAB.EC PO SCH (09:00)
[2017-04-04] MEDS ORDERED: Potassium Chlor TAB* 20 MEQ TAB.ER PO SCH (09:00)
[2017-04-04 09:49] VITALS: BP 151/58
[2017-04-04] MEDS: Metoprolol Tartrate TAB* 25 MG PO SCH (10:26)
--- NOTE | 2017-04-04 11:07 | PN ---
"Progress Note - Progress Note Date of Service: 04/04/17 Note: Wounds examined. 2 x 4 cm superficial open area L lateral lower leg. 1 x 2 cm superficial ulceration R heel. Both lower legs sl red, dry and scaly. This report was requested by: Carroll Guerrero | Reference #: [id number] Others' Prescriptions Patient Name: Franklyn Shafer Date: 1955 Address: [address] [place] [address] Sex: Male Rx Written Rx Dispensed Drug Quantity Days Supply Prescriber Name 03/01/2017 03/01/2017 oxycodone hcl 5 mg tablet 30 5 Minerva Sanches DIRECTOR OF D[employer]ITAL [employer]CHNOLOGY 02/01/2017 02/01/2017 oxycodone hcl 5 mg tablet 60 10 Samuel, Vernell A 06/29/2016 06/29/2016 oxycodone hcl 10 mg tablet 18 3 Lalitha, [place] 06/25/2016 06/25/2016 morphine sulf er 15 mg tablet 60 30 [facility], [place] 06/25/2016 06/25/2016 lyrica 100 mg capsule 42 14 [facility], [place] 06/25/2016 06/25/2016 oxycodone hcl 10 mg tablet 18 3 Samuel, Vernell A 05/14/2016 05/26/2016 lyrica 100 mg capsule 42 14 Samuel, Vernell A 05/14/2016 05/14/2016 lyrica 100 mg capsule 42 14 Samuel, Vernell A 05/12/2016 05/12/2016 morphine sulf er 15 mg tablet 60 30 Samuel, Vernell A 05/12/2016 05/12/2016 oxycodone hcl 10 mg tablet 180 30 Samuel, Vernell A 05/01/2016 05/01/2016 lyrica 100 mg capsule 30 10 Finch, Fransisco (DIRECTOR OF DIGITAL TECHNOLOGY) 04/22/2016 04/22/2016 lyrica 100 mg capsule 30 10 Finch, [place]ansisco (DIRECTOR OF DIGITAL TECHNOLOGY) 04/17/2016 04/17/2016 morphine sulf 100 mg/5 ml soln 30ml 10 Finch, [place]ansisco (DIRECTOR OF DIGITAL TECHNOLOGY) 04/10/2016 04/10/2016 morphine sulf er 15 mg tablet 30 15 Finch, Fransisco ( DIRECTOR OF DIGITAL TECHNOLOGY) 04/06/2016 04/09/2016 lyrica 100 mg capsule 30 10 Finch, Fransisco (DIRECTOR OF DIGITAL TECHNOLOGY)"
--- NOTE | 2017-04-04 15:29 | ED ---
Alex Murphy Julia, scribed for Dannie Mcclain MD on 04/03/17 at 1641 . Shortness of Breath - HPI Summary HPI Summary: This patient is a 61 year old M presenting to [facility] with chief complain of worsening SOB and CP with exertion for the past few weeks. Patient reports LE edema and ulcers. Patient denies fever. Patient recently moved back home from [facility]. Patient mentions black mold in his home. Patients nurse mentions his O2 saturation will drop to 90% on room air with exertion. Patients primary care physician is Dr. Gilliland. - History of Current Complaint Chief Complaint: EDShortnessOfBreath Time Seen by Provider: 04/03/17 16:11 Hx Obtained From: Patient Onset/Duration: Lasting Days Dyspnea At: Exertion Aggrevating Factors: Movement Alleviating Factors: Nothing Associated Signs & Symptoms: Edema - and ulcers - Allergy/Home Medications Allergies/Adverse Reactions: Allergies Allergy/AdvReac Type Severity Reaction Status Date / Time Apple Allergy Unknown Unknown Verified 04/03/17 20:11 Reaction Details Bee Venom Allergy Unknown Verified 04/03/17 20:11 Reaction Details Black [place] Flavor Allergy Unknown Verified 04/03/17 20:11 Reaction Details Sulfa Antibiotics Allergy Rash Verified 04/03/17 20:11 walnut Allergy Unknown Unknown Uncoded 04/03/17 20:11 Reaction Details bee sting Allergy Unknown Uncoded 04/03/17 20:11 Reaction Details PMH/Surg Hx/FS Hx/Imm Hx Endocrine/Hematology History: Reports: Hx Anticoagulant Therapy - xarelto, Hx Anemia Denies: Hx Diabetes - hypoglycemic, Hx Systemic Lupus Erythematosus Cardiovascular History: Reports: Hx Congestive Heart Failure, Hx Coronary Artery Disease, Hx Deep Vein Thrombosis, Hx Embolism - pulmonary embolism, takes xarelto, Hx Hypercholesterolemia, Hx Hypertension, Hx Pacemaker/ICD, Hx Peripheral Vascular Disease - SSS, Hx Syncope, Other Cardiovascular Problems/ Disorders - cardiac cath Respiratory History: Reports: Hx Chronic Obstructive Pulmonary Disease (COPD) - on 2L home O2, Hx Pneumonia, Hx Pulmonary Embolism, Hx Sleep Apnea, Other Respiratory Problems/Disorders - SLEEP APNEA, ON 2 L O2 @ NIGHT, obesity hypoventilation GI History: Reports: Other GI Disorders - umbilical hernia, stool softener at home, constipation History: Reports: Hx Acute Renal Failure, Hx Kidney Stones, Hx Renal Disease - 3 episodes of renal failure Denies: Hx Dialysis Musculoskeletal History: Reports: Hx Arthritis, Hx Back Problems, Other Musculoskeletal History - bilateral metatarsal amputation Denies: Hx Rheumatoid Arthritis Sensory History: Reports: Other Sensory Impairments - Neuropathy in feet Denies: Hx Contacts or Glasses, Hx Hearing Aid Opthamlomology History: Reports: Other Sensory Impairments - Neuropathy in feet Denies: Hx Contacts or Glasses Neurological History: Reports: Hx Headaches, Other Neuro Impairments/Disorders - frequent syncope, pt states possible stroke in past Psychiatric History: Reports: Hx Depression Denies: Hx of Violent Episodes Against Others - Cancer History Hx Chemotherapy: No - Surgical History Surgery Procedure, Year, and Place: Bilateral metatarsal amputations Hx Anesthesia Reactions: No - Immunization History Date of Tetanus Vaccine: PT STATES UNSURE Date of Influenza Vaccine: NONE Infectious Disease History: Yes Infectious Disease History: Reports: Hx of Known/Suspected MRSA Denies: Traveled Outside the [place] in Last 30 Days - Family History Known Family History: Positive: Diabetes Negative: Other - denies FHx of depression - Social History Lives: Assisted Living - just moved back home Alcohol Use: None Hx Substance Use: Yes Substance Use Comment - Amount & Last Used: chronic narcotic use Hx Tobacco Use: No Smoking Status (MU): Never Smoked Tobacco Have You Smoked in the Last Year: No Review of Systems Negative: Fever Positive: Chest Pain Positive: Shortness Of Breath Positive: Edema Positive: Other - LE ulcers All Other Systems Reviewed And Are Negative: Yes Physical Exam - Summary Physical Exam Summary: Appearance: The patient is well-nourished in no acute distress and in no acute pain. Skin: The skin is warm and dry and skin color reflects adequate perfusion. HEENT: The head is normocephalic and atraumatic. The pupils are equal and reactive. The conjunctivae are clear and without drainage. Nares are patent and without drainage. Mouth reveals moist mucous membranes and the throat is without erythema and exudate. The external ears are intact. The ear canals are patent and without drainage. The tympanic membranes are intact. Neck: the neck is supple with full range of motion and non-tender. There are no carotid bruits. There is no neck vein distension. Respiratory: Chest is non-tender. Lungs are clear to auscultation and breath sounds are symmetrical and equal. Cardiovascular: Heart is regular rate and rhythm. There is no murmur or rub auscultated. There is no peripheral edema and pulses are symmetrical and equal. Abdomen: The abdomen is soft and non-tender. There are normal bowel sounds heard in all four quadrants and there is no organomegaly palpated. Musculoskeletal: There is no back tenderness noted. Extremities are non-tender with full range of motion. There is good capillary refill. There is peripheral edema with LE ulcers, no calf tenderness elicited. Neurological: Patient is alert and oriented to person, place and time. The patient has symmetrical motor strength in all four extremities. Cranial nerves are grossly intact. Deep tendon reflexes are symmetrical and equal in all four extremities. Psychiatric: The patient has an appropriate affect and does not exhibit any anxiety or depression. Triage Information Reviewed: Yes Vital Signs On Initial Exam: Initial Vitals Temp Pulse Resp BP Pulse Ox 98.2 F 88 22 158/78 95 04/03/17 16:05 04/03/17 16:05 04/03/17 16:05 04/03/17 16:05 04/03/17 16:05 Vital Signs Reviewed: Yes Diagnostics - Vital Signs Vital Signs Temp Pulse Resp BP Pulse Ox 04/03/17 16:05 98.2 F 88 22 158/78 95 - Laboratory Lab Results: Lab Results 04/03/17 04/03/17 04/03/17 Range/Units 17:15 17:15 17:15 WBC 5.9 (3.5-10.8) 10^3/ul RBC 5.15 (4.0-5.4) 10^6/ul Hgb 13.3 L (14.0-18.0) g/dl Hct 42 (42-52) % MCV 81 (80-94) fL MCH 26 L (27-31) pg MCHC 32 (31-36) g/dl RDW 18 H (10.5-15) % Plt Count 195 (150-450) 10^3/ul MPV 9 (7.4-10.4) um3 Neut % (Auto) 70.3 (38-83) % Lymph % (Auto) 18.5 L (25-47) % [place] % (Auto) 8.4 (1-9) % Eos % (Auto) 1.8 (0-6) % Baso % (Auto) 1.0 (0-2) % Absolute Neuts (auto) 4.1 (1.5-7.7) 10^3/ul Absolute Lymphs (auto) 1.1 (1.0-4.8) 10^3/ul Absolute Monos (auto) 0.5 (0-0.8) 10^3/ul Absolute Eos (auto) 0.1 (0-0.6) 10^3/ul Absolute Basos (auto) 0.1 (0-0.2) 10^3/ul Absolute Nucleated RBC 0 10^3/ul Nucleated RBC % 0 INR (Anticoag Therapy) (0.77-1.02) Sodium 137 (133-145) mmol/L Potassium 3.6 (3.5-5.0) mmol/L Chloride 99 L (101-111) mmol/L Carbon Dioxide 31 (22-32) mmol/L Anion Gap 7 (2-11) mmol/L BUN 15 (6-24) mg/dL Creatinine 0.95 (0.67-1.17) mg/dL Est GFR ( Amer) 103.7 (>60) Est GFR (Non-Af Amer) 80.6 (>60) BUN/Creatinine Ratio 15.8 (8-20) Glucose 112 H (70-100) mg/dL Lactic Acid (0.5-2.0) mmol/L Calcium 9.7 (8.6-10.3) mg/dL Total Bilirubin 1.00 (0.2-1.0) mg/dL AST 15 (13-39) U/L ALT 9 (7-52) U/L Alkaline Phosphatase 34 (34-104) U/L Total Creatine Kinase 105 (10-223) U/L Troponin I 0.00 (<0.04) ng/mL C-Reactive Protein 22.38 H (< 5.00) mg/L B-Natriuretic Peptide 18 ( - 100) pg/mL Total Protein 7.3 (6.4-8.9) g/dL Albumin 3.6 (3.2-5.2) g/dL Globulin 3.7 (2-4) g/dL Albumin/Globulin Ratio 1.0 (1-3) 04/03/17 04/03/17 Range/Units 17:15 17:15 WBC (3.5-10.8) 10^3/ul RBC (4.0-5.4) 10^6/ul Hgb (14.0-18.0) g/dl Hct (42-52) % MCV (80-94) fL MCH (27-31) pg MCHC (31-36) g/dl RDW (10.5-15) % Plt Count (150-450) 10^3/ul MPV (7.4-10.4) um3 Neut % (Auto) (38-83) % Lymph % (Auto) (25-47) % [place] % (Auto) (1-9) % Eos % (Auto) (0-6) % Baso % (Auto) (0-2) % Absolute Neuts (auto) (1.5-7.7) 10^3/ul Absolute Lymphs (auto) (1.0-4.8) 10^3/ul Absolute Monos (auto) (0-0.8) 10^3/ul Absolute Eos (auto) (0-0.6) 10^3/ul Absolute Basos (auto) (0-0.2) 10^3/ul Absolute Nucleated RBC 10^3/ul Nucleated RBC % INR (Anticoag Therapy) 1.14 H (0.77-1.02) Sodium (133-145) mmol/L Potassium (3.5-5.0) mmol/L Chloride (101-111) mmol/L Carbon Dioxide (22-32) mmol/L Anion Gap (2-11) mmol/L BUN (6-24) mg/dL Creatinine (0.67-1.17) mg/dL Est GFR ( Amer) (>60) Est GFR (Non-Af Amer) (>60) BUN/Creatinine Ratio (8-20) Glucose (70-100) mg/dL Lactic Acid 1.8 (0.5-2.0) mmol/L Calcium (8.6-10.3) mg/dL Total Bilirubin (0.2-1.0) mg/dL AST (13-39) U/L ALT (7-52) U/L Alkaline Phosphatase (34-104) U/L Total Creatine Kinase (10-223) U/L Troponin I (<0.04) ng/mL C-Reactive Protein (< 5.00) mg/L B-Natriuretic Peptide ( - 100) pg/mL Total Protein (6.4-8.9) g/dL Albumin (3.2-5.2) g/dL Globulin (2-4) g/dL Albumin/Globulin Ratio (1-3) Result Diagrams: 04/03/17 17:15 04/03/17 17:15 Lab Statement: Any lab studies that have been ordered have been reviewed, and results considered in the medical decision making process. - Radiology CXR Radiology Interpretation Completed By: Radiologist - CARDIOMEGALY WITH PULMONARY VASCULAR CONGESTION. ED Physician has reviewed this report. - EKG 16:04 Cardiac Rate: NL EKG Rhythm: Sinus Rhythm - at 81 BPM EKG Interpretation: L axis deviation, L anterior vesicular black Course/Dx - Course Course Of Treatment: Mr. Shafer presented concerned that the black mold in his apartment is affecting his breathing. He didn't look too uncomfortable here at rest and I was treating him symptomatically after his testing was negative when he suddenly developed chest pain. I have asked the hospitalist to consult on him. - Diagnoses Provider Diagnoses: Bronchospasm, Chest pain Discharge - Discharge Plan Condition: Stable Disposition: ADMITTED TO [facility] The documentation as recorded by the Alex parham Julia accurately reflects the service I personally performed and the decisions made by me, Dannie Mcclain MD.
[2017-04-04] MEDS ORDERED: Rivaroxaban TAB(*) 20 MG TAB PO SCH (17:00)
--- NOTE | 2017-04-05 03:28 | DS ---
CC: Dr. Gilliland * DISCHARGE SUMMARY: DATE OF ADMISSION: 04/03/17 DATE OF DISCHARGE: 04/04/17 HISTORY OF PRESENT ILLNESS: This 61-year-old man presented with shortness of breath and chest pain. He really minimized the chest pain with me. He said that he had been discharged from [facility] 3 weeks ago. He states his residence has a problem with black mold. He said it has been getting progressively worse with more and more dyspnea on exertion. I am not really sure that there is really much change from his baseline. On the day of discharge, the patient said he would have to go home and deal with his problem and did not seem overly concerned about going home to do so. No change in his therapy was made. He was monitored on telemetry unit. Three troponins were drawn, all of which were within normal limits. I asked the patient if he had run out of his medications and he was very emphatic that he had and he requested prescription for everything he was using. He said he was not using a lot of the medications that were in his list particularly metoprolol. He does not use his nebulizer. He does no take omeprazole either. I sent prescriptions for IV medication that he indicated he does take. I also gave him prescription for oxycodone, which he said he had had some at home, but very small supply. He has a kidney stone and is scheduled for lithotripsy on 04/09/17. FINAL DIAGNOSES: 1. Morbid obesity with a BMI of 62.2. 2. History of DVT and pulmonary embolism. 3. History of atrial fibrillation and flutter. 4. Diastolic heart failure. 5. Chronic obstructive pulmonary disease. 6. Peripheral arterial disease with bilateral metatarsal amputations. 7. Superficial wounds both lower legs. The patient has an aide who will come every day to change his dressings. He should get instructions and supplies as needed for this. DISCHARGE MEDICATIONS: 1. Docusate 100 mg b.i.d. p.r.n. 2. Oxycodone 5 mg every 4 hours p.r.n. 3. Aspirin 81 mg daily. 4. Nitroglycerin 0.4 mg sublingual every 5 minutes p.r.n. 5. Potassium chloride 40 mEq daily. 6. Rivaroxaban 20 mg daily. 7. Senokot 1 every 12 hours p.r.n. 8. Torsemide 20 mg daily. [id number]/[facility] #: [id number] MTDD
== END 2017-04-04 13:36 | disposition home or self-care (01) ==
LOC: ED 16:04 → MEDTELE 20:01
PROVIDERS: ADMIT Hospitalist; ATTEND Internal Medicine
DX: R07.9 Chest pain, unspecified (principal); I50.30 Unspecified diastolic (congestive) heart failure; J44.9 Chronic obstructive pulmonary disease, unspecified; I48.91 Unspecified atrial fibrillation; E66.01 Morbid (severe) obesity due to excess calories; Z68.44 Body mass index [BMI] 60.0-69.9, adult; Z86.711 Personal history of pulmonary embolism; Z88.2 Allergy status to sulfonamides; J96.11 Chronic respiratory failure with hypoxia; I73.9 Peripheral vascular disease, unspecified; Z95.0 Presence of cardiac pacemaker; I10 Essential (primary) hypertension; E78.00 Pure hypercholesterolemia, unspecified; Z79.01 Long term (current) use of anticoagulants; Z79.899 Other long term (current) drug therapy; I51.7 Cardiomegaly; I44.4 Left anterior fascicular block
CPT/HCPCS: 36415; 71045; 80053; 81003; 81015; 82550; 83605; 83880; 84484; 85025; 85610; 86140; 87040; 87086; 93005; 93306; 94640; 94760; 96374; 99285; A9270-GY; G0378; J2930

== ENCOUNTER 2017-05-22 13:17 | Emergency (ER) | payer MEDICAID ==
[2017-05-22] MEDS ORDERED: NS 0.9% 1000 ML* 1,000 ML IV ONE ×2 (13:36→14:22)
[2017-05-22 13:54] LABS: ABS Basophils 0 10^3/ul (0-0.2); ABS Eosinophils 0 10^3/ul (0-0.6); ABS Lymphocytes 0.6 10^3/ul (1.0-4.8); ABS Monocytes 0.8 10^3/ul (0-0.8); ABS Nucleated RBC 0 10^3/ul; Eosinophil % 0.3 % (0-6); Hematocrit 36 % (42-52); Lymphocyte % 7.6 % (25-47); Mean Corpuscular HGB Conc 31 g/dl (31-36); Mean Corpuscular Hemoglobin 24 pg (27-31); Mean Corpuscular Volume 77 fL (80-94); Mean Platelet Volume 8 um3 (7.4-10.4); Nucleated Red Blood Cells % 0; Platelet Count 202 10^3/ul (150-450); Red Blood Count 4.61 10^6/ul (4.0-5.4); Red Cell Distribution Width 18 % (10.5-15); White Blood Count 7.4 10^3/ul (3.5-10.8)
[2017-05-22] MEDS ORDERED: Pantoprazole IV* 80 MG in NS 0.9% 100 ML* 100 ML IVPB SCH (14:00)
[2017-05-22] MEDS ORDERED: Pantoprazole IV* 40 MG ONE (14:02)
--- NOTE | 2017-05-22 14:09 | RAD ---
HISTORY: Dyspnea COMPARISONS: April 03, 2017 VIEWS: 1: frontal portable view of the chest at 1:58 PM FINDINGS: LINES AND TUBES: A left-sided pacemaker is noted CARDIOMEDIASTINAL SILHOUETTE: The cardiac silhouette is enlarged. The cardiomediastinal silhouette is otherwise normal for portable technique. PLEURA: The costophrenic angles are sharp. No pleural abnormalities are noted. LUNG PARENCHYMA: There is a diffuse reticular pattern with indistinct pulmonary vessels. ABDOMEN: The upper abdomen is clear. There is no subphrenic gas. BONES AND SOFT TISSUES: No bone or soft tissue abnormalities are noted. IMPRESSION: CARDIOMEGALY WITH PULMONARY INTERSTITIAL EDEMA
[2017-05-22 14:12] LABS: EGFR Non-African American 92.9 (>60)
[2017-05-22] MEDS ORDERED: Morphine INJ* 4 MG/ML 1 ML SYRINGE (NEW SYRINGE VERSION) IV ONE (14:14)
[2017-05-22] MEDS ORDERED: Pantoprazole IV* 40 MG IV ONE (14:15)
--- NOTE | 2017-05-22 14:37 | ED ---
Sukhjinder Murphy Abhishek, scribed for Rick Jo MD on 05/22/17 at 1343 . GI/ HPI - HPI Summary HPI Summary: This patient is a 61 year old M BIBA with a chief complaint of hematuria since 4 days ago. The pt previously was at [facility] due to renal calculi in the left kidney. The stone was removed successfully on Wednesday. However, the next day the pt states there was bright red blood in the urine. The EMS reports loss of continence, chest pain, black tarry stool with blood, weakness, and SOB (on exertion). Symptoms alleviated by oxygen (breathing aid). Medications reviewed and reported (Xarelto 20 mg, 81 mg aspirin). Pt has not ate food since yesterday noon. Allergies noted and reported. - History of Current Complaint Chief Complaint: EDGIBleed Stated Complaint: BLOODY URINE/STOOL Hx Obtained From: Patient Onset/Duration: Started Days Ago - 4 days ago Timing: Constant Current Severity: None Pain Intensity: 0 Location of Pain: Diffuse Associated Signs and Symptoms: Positive: Weakness, Black Tarry Stool, Blood w/ Stool, Hematuria, Chest Pain, Other: - Shortness of breath - Additional Pertinent History Primary Care Physician: DIPESH - Allergy/Home Medications Allergies/Adverse Reactions: Allergies Allergy/AdvReac Type Severity Reaction Status Date / Time walnut Allergy Unknown Unknown Uncoded 04/03/17 20:11 Reaction Details Apple Allergy Unknown Uncoded 05/22/17 13:30 Reaction Details Bee Stings Venom Allergy Anaphylatic Uncoded 05/22/17 13:35 Shock [place] Allergy Anaphylatic Uncoded 05/22/17 13:35 Shock PMH/Surg Hx/FS Hx/Imm Hx Endocrine/Hematology History: Reports: Hx Anticoagulant Therapy - xarelto, Hx Anemia Denies: Hx Diabetes - hypoglycemic, Hx Systemic Lupus Erythematosus Cardiovascular History: Reports: Hx Congestive Heart Failure, Hx Coronary Artery Disease, Hx Deep Vein Thrombosis, Hx Embolism - pulmonary embolism, takes xarelto, Hx Hypercholesterolemia, Hx Hypertension, Hx Pacemaker/ICD, Hx Peripheral Vascular Disease - SSS, Hx Syncope, Other Cardiovascular Problems/ Disorders - cardiac cath Respiratory History: Reports: Hx Chronic Obstructive Pulmonary Disease (COPD) - on 2L home O2, Hx Pneumonia, Hx Pulmonary Embolism, Hx Sleep Apnea, Other Respiratory Problems/Disorders - SLEEP APNEA, ON 2 L O2 @ NIGHT, obesity hypoventilation GI History: Reports: Other GI Disorders - umbilical hernia, stool softener at home, constipation History: Reports: Hx Acute Renal Failure, Hx Kidney Stones, Hx Renal Disease - 3 episodes of renal failure Denies: Hx Dialysis Musculoskeletal History: Reports: Hx Arthritis, Hx Back Problems, Other Musculoskeletal History - bilateral metatarsal amputation Denies: Hx Rheumatoid Arthritis Sensory History: Reports: Other Sensory Impairments - Neuropathy in feet Denies: Hx Contacts or Glasses, Hx Hearing Aid Opthamlomology History: Reports: Other Sensory Impairments - Neuropathy in feet Denies: Hx Contacts or Glasses Neurological History: Reports: Hx Headaches, Other Neuro Impairments/Disorders - frequent syncope, pt states possible stroke in past Psychiatric History: Reports: Hx Depression Denies: Hx of Violent Episodes Against Others - Cancer History Hx Chemotherapy: No - Surgical History Surgery Procedure, Year, and Place: Bilateral metatarsal amputations Hx Anesthesia Reactions: No - Immunization History Date of Tetanus Vaccine: PT STATES UNSURE Date of Influenza Vaccine: NONE Infectious Disease History: No Infectious Disease History: Reports: Hx of Known/Suspected MRSA Denies: Traveled Outside the [place] in Last 30 Days - Family History Known Family History: Positive: Diabetes Negative: Other - denies FHx of depression - Social History Alcohol Use: None Hx Substance Use: Yes Substance Use Type: Reports: None Substance Use Comment - Amount & Last Used: chronic narcotic use Hx Tobacco Use: No Smoking Status (MU): Never Smoked Tobacco Have You Smoked in the Last Year: No Review of Systems Constitutional: Negative Eyes: Negative ENT: Negative Positive: Chest Pain Positive: Shortness Of Breath - (exertion) Gastrointestinal: Other - Black tarry stool (with blood) Positive: Abdominal Pain Positive: hematuria, incontinence Musculoskeletal: Negative Skin: Negative Positive: Weakness Psychological: Normal All Other Systems Reviewed And Are Negative: Yes Physical Exam - Summary Physical Exam Summary: Appearance: Well-appearing, Well-nourished, Morbidly obese, Extremely large neck , No acute distress Skin: Warm, Dry, No rash, Bilaterally venous ulcerations, Extremities with venous ulcerations Eyes: Normal, PERRL, EOMI, sclera anicteric ENT: Normal Neck: Supple, nontender Respiratory: Clear to auscultation Cardiovascular: S1, S2, no murmur, no rub, no gallop Abdomen: Soft, nontender, no organomegaly Bowel sounds: Present Musculoskeletal: Normal, Strength/ROM Intact, no edema, pulses symmetrical, Absent to the Toes bilaterally. Neurological: Normal, A&Ox3, cranial nerves II-XII WNL, follows commands, gait not tested, sensation intact to pin and light touch Psychiatric: affect normal, behavior appropriate, dressed appropriately, judgment intact Triage Information Reviewed: Yes Vital Signs On Initial Exam: Initial Vitals Temp Pulse Resp BP Pulse Ox 99.4 F 87 22 158/71 97 05/22/17 13:23 05/22/17 13:23 05/22/17 13:23 05/22/17 13:23 05/22/17 13:23 Vital Signs Reviewed: Yes Diagnostics - Vital Signs Vital Signs Temp Pulse Resp BP Pulse Ox 05/22/17 13:23 99.4 F 87 22 158/71 97 - Laboratory Result Diagrams: 05/22/17 13:48 05/22/17 13:48 Lab Statement: Any lab studies that have been ordered have been reviewed, and results considered in the medical decision making process. - Radiology Chest X-ray Radiology Interpretation Completed By: Radiologist - CXR reveals CARDIOMEGALY WITH PULMONARY INTERSTITIAL EDEMA ED physician has reviewed this radiology report and agrees. - EKG 1344 EKG Rhythm: Sinus Rhythm - 80 bpm EKG Interpretation: EKG at 1344 reveals LAD and NSR GIGU Course/Dx - Course Course Of Treatment: The Pt is a 61 M BIBA with c/o of black tarry stool with blood and hematuria. Associated signs and symptoms include abd pain, chest pain , SOB on exertion and weakness. The pt previously was at [facility] due to renal calculi in the left kidney. The stone was removed successfully on Wednesday. However, the next day the pt states there was bright red blood in the urine. [facility] The pt will be transfered to [facility] in order to see GI. The dx will be upper GI bleeding, CHF and hematuria secondary to stent. We consulted Dr. Giuliano Ordonez at 1431 in order to discuss patient care. He accepts patient care at the [facility]. - Diagnoses Provider Diagnoses: Upper GI bleeding, Hematuria, CHF (congestive heart failure) Discharge - Discharge Plan Condition: Stable Disposition: [facility] Discharge Disposition Comment: [facility] Referrals: Javier Gilliland MD [Primary Care Provider] - The documentation as recorded by the Sukhjinder parham Abhishek accurately reflects the service I personally performed and the decisions made by me, Rick Jo MD.
[2017-05-22 16:56] VITALS: BP 145/86
--- NOTE | 2017-05-23 10:48 | ED ---
Progress - Progress Note Progress Note: Stool call blood test is positive. Patient was transferred to [facility] for diagnosis of upper GI bleed. No further action at this time. Course/Dx - Course Course Of Treatment: The Pt is a 61 M BIBA with c/o of black tarry stool with blood and hematuria. Associated signs and symptoms include abd pain, chest pain , SOB on exertion and weakness. The pt previously was at [facility] due to renal calculi in the left kidney. The stone was removed successfully on Wednesday. However, the next day the pt states there was bright red blood in the urine. An EKG and Chest x-ray was taken in the [facility]. The pt will be transfered to [facility] in order to see GI. The dx will be upper GI bleeding, CHF and hematuria secondary to stent. We consulted Dr. Giuliano Ordonez at 1431 in order to discuss patient care. He accepts patient care at the [facility]. - Diagnoses Provider Diagnoses: Upper GI bleeding, Hematuria, CHF (congestive heart failure)
== END 2017-05-22 16:25 | disposition short-term general hospital (02) ==
LOC: ED 13:17
DX: K92.2 Gastrointestinal hemorrhage, unspecified (principal); R31.9 Hematuria, unspecified; I11.0 Hypertensive heart disease with heart failure; I50.9 Heart failure, unspecified; Z79.01 Long term (current) use of anticoagulants; I25.10 Atherosclerotic heart disease of native coronary artery without angina pectoris; Z86.711 Personal history of pulmonary embolism; Z86.718 Personal history of other venous thrombosis and embolism; J44.9 Chronic obstructive pulmonary disease, unspecified; R94.31 Abnormal electrocardiogram [ECG] [EKG]
CPT/HCPCS: 36415; 71045; 80053; 82272; 83880; 84484; 85025; 93005; 96374; 96375; 99284; J2270

== ENCOUNTER 2017-06-04 19:32 | Emergency (ER) | payer MEDICAID ==
--- NOTE | 2017-06-04 20:46 | RAD ---
HISTORY: Shortness of breath, chest pain COMPARISONS: May 22, 2012 VIEWS: 2: frontal portable view of the chest at 8:25 PM FINDINGS: LINES AND TUBES: A left-sided pacemaker is noted. CARDIOMEDIASTINAL SILHOUETTE: The cardiac silhouette is enlarged. The cardiomediastinal silhouette is otherwise normal for portable technique. PLEURA: The costophrenic angles are sharp. No pleural abnormalities are noted. LUNG PARENCHYMA: There is prominence of the central pulmonary vasculature. There is a diffuse pattern of reticular opacification with indistinct pulmonary vessels. ABDOMEN: The upper abdomen is clear. There is no subphrenic gas. BONES AND SOFT TISSUES: No bone or soft tissue abnormalities are noted. IMPRESSION: CARDIOMEGALY WITH PULMONARY INTERSTITIAL EDEMA. THE APPEARANCE IS SIMILAR TO THE PREVIOUS EXAMINATION.
[2017-06-04 21:14] LABS: ABS Basophils 0.1 10^3/ul (0-0.2); ABS Eosinophils 0.1 10^3/ul (0-0.6); ABS Monocytes 0.8 10^3/ul (0-0.8); ABS Neutrophils 13.4 10^3/ul (1.5-7.7); ABS Nucleated RBC 0 10^3/ul; Eosinophil % 0.4 % (0-6); Hematocrit 35 % (42-52); Hemoglobin 10.8 g/dl (14.0-18.0); Lymphocyte % 6.5 % (25-47); Mean Corpuscular HGB Conc 31 g/dl (31-36); Mean Corpuscular Hemoglobin 23 pg (27-31); Mean Corpuscular Volume 75 fL (80-94); Mean Platelet Volume 9.1 um3 (7.4-10.4); Nucleated Red Blood Cells % 0; Platelet Count 254 10^3/ul (150-450); Red Blood Count 4.66 10^6/ul (4.0-5.4); Red Cell Distribution Width 19 % (10.5-15); White Blood Count 15.3 10^3/ul (3.5-10.8)
[2017-06-04 21:33] LABS: EGFR Non-African American 92.9 (>60)
[2017-06-05 00:20] VITALS: BP 149/61
--- NOTE | 2017-06-10 21:17 | ED ---
Booker Murphy Sixian, scribed for Josh Mendes MD on 06/04/17 at 2004 . Shortness of Breath - HPI Summary HPI Summary: This patient is a 61 year old M presenting to ED with a chief complaint of SOB since 1937 today. The patient rates the pain 4/10 in severity. Symptoms aggravated by movement. Symptoms alleviated by lying down. Patient reports wheezing, CP secondary to SOB. He reports some black mold issue in the apartment and was discharged from the hospital last night w/o an oxygen tank. - History of Current Complaint Chief Complaint: EDShortnessOfBreath Time Seen by Provider: 06/04/17 19:43 Hx Obtained From: Patient Onset/Duration: Gradual Onset, Lasting Hours, Still Present Current Severity: Moderate Dyspnea At: Rest Aggrevating Factors: Movement Alleviating Factors: Other - lying down Associated Signs & Symptoms: Wheezing, Chest Pain Unrelated to Cough - Allergy/Home Medications Allergies/Adverse Reactions: Allergies Allergy/AdvReac Type Severity Reaction Status Date / Time walnut Allergy Unknown Unknown Uncoded 04/03/17 20:11 Reaction Details Apple Allergy Unknown Uncoded 05/22/17 13:30 Reaction Details Bee Stings Venom Allergy Anaphylatic Uncoded 05/22/17 13:35 Shock Walnuts Allergy Anaphylatic Uncoded 05/22/17 13:35 Shock Home Medications: Home Medications Tamsulosin CAP* [Flomax CAP*] 0.4 mg PO DAILY 06/04/17 [History Confirmed ] PMH/Surg Hx/FS Hx/Imm Hx Endocrine/Hematology History: Reports: Hx Anticoagulant Therapy - xarelto, Hx Anemia Denies: Hx Diabetes - hypoglycemic, Hx Systemic Lupus Erythematosus Cardiovascular History: Reports: Hx Congestive Heart Failure, Hx Coronary Artery Disease, Hx Deep Vein Thrombosis, Hx Embolism - pulmonary embolism, takes xarelto, Hx Hypercholesterolemia, Hx Hypertension, Hx Pacemaker/ICD, Hx Peripheral Vascular Disease - SSS, Hx Syncope, Other Cardiovascular Problems/ Disorders - cardiac cath Respiratory History: Reports: Hx Chronic Obstructive Pulmonary Disease (COPD) - on 2L home O2, Hx Pneumonia, Hx Pulmonary Embolism, Hx Sleep Apnea, Other Respiratory Problems/Disorders - SLEEP APNEA, ON 2 L O2 @ NIGHT, obesity hypoventilation GI History: Reports: Other GI Disorders - umbilical hernia, stool softener at home, constipation History: Reports: Hx Acute Renal Failure, Hx Kidney Stones, Hx Renal Disease - 3 episodes of renal failure Denies: Hx Dialysis Musculoskeletal History: Reports: Hx Arthritis, Hx Back Problems, Other Musculoskeletal History - bilateral metatarsal amputation Denies: Hx Rheumatoid Arthritis Sensory History: Reports: Other Sensory Impairments - Neuropathy in feet Denies: Hx Contacts or Glasses, Hx Hearing Aid Opthamlomology History: Reports: Other Sensory Impairments - Neuropathy in feet Denies: Hx Contacts or Glasses Neurological History: Reports: Hx Headaches, Other Neuro Impairments/Disorders - frequent syncope, pt states possible stroke in past Psychiatric History: Reports: Hx Depression Denies: Hx of Violent Episodes Against Others - Cancer History Hx Chemotherapy: No - Surgical History Surgery Procedure, Year, and Place: Bilateral metatarsal amputations Hx Anesthesia Reactions: No - Immunization History Date of Tetanus Vaccine: PT STATES UNSURE Date of Influenza Vaccine: NONE Infectious Disease History: No Infectious Disease History: Reports: Hx of Known/Suspected MRSA Denies: Traveled Outside the [place] in Last 30 Days - Family History Known Family History: Positive: Diabetes Negative: Other - denies FHx of depression - Social History Alcohol Use: None Hx Substance Use: Yes Substance Use Type: Reports: None Substance Use Comment - Amount & Last Used: chronic narcotic use Hx Tobacco Use: No Smoking Status (MU): Never Smoked Tobacco Have You Smoked in the Last Year: No Review of Systems Positive: Chest Pain - "pressure" secondary to SOB Positive: Shortness Of Breath, Other - wheezing All Other Systems Reviewed And Are Negative: Yes Physical Exam - Summary Physical Exam Summary: Appearance: Well-appearing, no distress, Well-nourished. Obese. Skin: Warm, color reflects adequate perfusion Head: Normal Head/Face inspection Eyes: Conjunctiva clear ENT: Normal inspection Neck: Supple, no nodes, no JVD. Respiratory: Lungs clear, Normal breath sounds, no respiratory distress Cardio: RRR, No murmur, pulses normal, brisk capillary refill Abdomen: soft, nontender, no guarding, no rebound Bowel sounds: present Musculoskeletal: Strength Intact/ ROM intact. No calf tenderness. Chronic LE edema. Neuro: Alert, muscle tone normal, facial symmetry, speech normal, sensory/motor intact Psychological: Normal Triage Information Reviewed: Yes Vital Signs On Initial Exam: Initial Vitals Temp Pulse Resp BP Pulse Ox 100.7 F 95 18 146/67 92 06/04/17 19:37 06/04/17 19:37 06/04/17 19:37 06/04/17 19:37 06/04/17 19:37 Vital Signs Reviewed: Yes Diagnostics - Vital Signs Vital Signs Temp Pulse Resp BP Pulse Ox 06/04/17 19:46 95 22 95 06/04/17 19:45 146/67 06/04/17 19:37 100.7 F 95 18 146/67 92 - Laboratory Lab Results: Lab Results 06/04/17 06/04/17 06/04/17 Range/Units 20:55 20:55 20:55 WBC 15.3 H (3.5-10.8) 10^3/ul RBC 4.66 (4.0-5.4) 10^6/ul Hgb 10.8 L (14.0-18.0) g/dl Hct 35 L (42-52) % MCV 75 L (80-94) fL MCH 23 L (27-31) pg MCHC 31 (31-36) g/dl RDW 19 H (10.5-15) % Plt Count 254 (150-450) 10^3/ul MPV 9.1 (7.4-10.4) um3 Neut % (Auto) 87.6 H (38-83) % Lymph % (Auto) 6.5 L (25-47) % [place] % (Auto) 5.0 (0-7) % Eos % (Auto) 0.4 (0-6) % Baso % (Auto) 0.5 (0-2) % Absolute Neuts (auto) 13.4 H (1.5-7.7) 10^3/ul Absolute Lymphs (auto) 1.0 (1.0-4.8) 10^3/ul Absolute Monos (auto) 0.8 (0-0.8) 10^3/ul Absolute Eos (auto) 0.1 (0-0.6) 10^3/ul Absolute Basos (auto) 0.1 (0-0.2) 10^3/ul Absolute Nucleated RBC 0 10^3/ul Nucleated RBC % 0 Patient Temperature ABG pH (7.35-7.45) ABG pH (Temp Correct) ABG pCO2 (35-45) mmHg ABG pCO2 (Temp Corrct ABG pO2 (80-100) mmHg ABG pO2 (Temp Correct ABG HCO3 (19-31) mmol/L ABG O2 Saturation (95-98) % ABG Base Excess (-2.0-2.0) Respiration Rate O2 Delivery Device Ventilator Type Vent Mode FiO2 Inspiratory Time PEEP Pressure Support Pressure Control EPAP IPAP BiPAP Sodium 134 (133-145) mmol/L Potassium 4.2 (3.5-5.0) mmol/L Chloride 97 L (101-111) mmol/L Carbon Dioxide 29 (22-32) mmol/L Anion Gap 8 (2-11) mmol/L BUN 22 (6-24) mg/dL Creatinine 0.84 (0.67-1.17) mg/dL Est GFR ( Amer) 119.5 (>60) Est GFR (Non-Af Amer) 92.9 (>60) BUN/Creatinine Ratio 26.2 H (8-20) Glucose 217 H (70-100) mg/dL Calcium 9.4 (8.6-10.3) mg/dL Total Bilirubin 0.70 (0.2-1.0) mg/dL AST 16 (13-39) U/L ALT 10 (7-52) U/L Alkaline Phosphatase 31 L (34-104) U/L Troponin I 0.01 (<0.04) ng/mL B-Natriuretic Peptide 32 ( - 100) pg/mL Total Protein 7.2 (6.4-8.9) g/dL Albumin 3.4 (3.2-5.2) g/dL Globulin 3.8 (2-4) g/dL Albumin/Globulin Ratio 0.9 L (1-3) 06/04/17 Range/Units 21:00 WBC (3.5-10.8) 10^3/ul RBC (4.0-5.4) 10^6/ul Hgb (14.0-18.0) g/dl Hct (42-52) % MCV (80-94) fL MCH (27-31) pg MCHC (31-36) g/dl RDW (10.5-15) % Plt Count (150-450) 10^3/ul MPV (7.4-10.4) um3 Neut % (Auto) (38-83) % Lymph % (Auto) (25-47) % [place] % (Auto) (0-7) % Eos % (Auto) (0-6) % Baso % (Auto) (0-2) % Absolute Neuts (auto) (1.5-7.7) 10^3/ul Absolute Lymphs (auto) (1.0-4.8) 10^3/ul Absolute Monos (auto) (0-0.8) 10^3/ul Absolute Eos (auto) (0-0.6) 10^3/ul Absolute Basos (auto) (0-0.2) 10^3/ul Absolute Nucleated RBC 10^3/ul Nucleated RBC % Patient Temperature Not Reportable ABG pH 7.45 (7.35-7.45) ABG pH (Temp Correct) Not Reportable ABG pCO2 48 H (35-45) mmHg ABG pCO2 (Temp Corrct Not Reportable ABG pO2 58 L* (80-100) mmHg ABG pO2 (Temp Correct Not Reportable ABG HCO3 31.3 H (19-31) mmol/L ABG O2 Saturation 94.2 L (95-98) % ABG Base Excess 8.3 H (-2.0-2.0) Respiration Rate Not Reportable O2 Delivery Device 2lpm nc Ventilator Type Not Reportable Vent Mode Not Reportable FiO2 Not Reportable Inspiratory Time Not Reportable PEEP Not Reportable Pressure Support Not Reportable Pressure Control Not Reportable EPAP Not Reportable IPAP Not Reportable BiPAP Not Reportable Sodium (133-145) mmol/L Potassium (3.5-5.0) mmol/L Chloride (101-111) mmol/L Carbon Dioxide (22-32) mmol/L Anion Gap (2-11) mmol/L BUN (6-24) mg/dL Creatinine (0.67-1.17) mg/dL Est GFR ( Amer) (>60) Est GFR (Non-Af Amer) (>60) BUN/Creatinine Ratio (8-20) Glucose (70-100) mg/dL Calcium (8.6-10.3) mg/dL Total Bilirubin (0.2-1.0) mg/dL AST (13-39) U/L ALT (7-52) U/L Alkaline Phosphatase (34-104) U/L Troponin I (<0.04) ng/mL B-Natriuretic Peptide ( - 100) pg/mL Total Protein (6.4-8.9) g/dL Albumin (3.2-5.2) g/dL Globulin (2-4) g/dL Albumin/Globulin Ratio (1-3) Result Diagrams: 06/04/17 20:55 06/04/17 20:55 Lab Statement: Any lab studies that have been ordered have been reviewed, and results considered in the medical decision making process. - Radiology CXR Radiology Interpretation Completed By: Radiologist - CARDIOMEGALY WITH PULMONARY INTERSTITIAL EDEMA. THE APPEARANCE IS SIMILAR TO THE PREVIOUS EXAMINATION. ED physician has reviewed this radiology report. - EKG 2009 Cardiac Rate: NL EKG Rhythm: Sinus Rhythm - 90 BPM EKG Interpretation: Normal intervals. No ST/T waves changes. L axis deviation. Re-Evaluation - Re-Evaluation First Eval Change: Improved Comment: Pt hemodynamically stable. pt resting comfortably in bed. Pt with no respiratory distress or hypoxia. Course/Dx - Diagnoses Differential Diagnosis/HQI/PQRI: Positive: Airway Obstruction, Airway Foreign Body, Asthma, Bronchitis, CHF, Chest Wall Pain, COPD Exacerbation, Pulmonary Embolism, Pulmonary Edema Provider Diagnoses: Bronchospasm Discharge - Sign-Out/Discharge Documenting (check all that apply): Discharge - Discharge Plan Condition: Improved Disposition: HOME Patient Education Materials: Reactive Airways Disease (ED) Referrals: Javier Gilliland MD [Primary Care Provider] - 2 Days Additional Instructions: RETURN TO THE EMERGENCY DEPARTMENT FOR CHANGING OR WORSENING SYMPTOMS. - Billing Disposition and Condition Condition: IMPROVED Disposition: HOME The documentation as recorded by the Booker parham Sixian accurately reflects the service I personally performed and the decisions made by , Josh Mendes MD.
== END 2017-06-05 00:18 | disposition home or self-care (01) ==
LOC: ED 19:32
DX: J98.01 Acute bronchospasm (principal); R06.02 Shortness of breath; R07.9 Chest pain, unspecified; R06.2 Wheezing
CPT/HCPCS: 36415; 36600; 71045; 80053; 82803; 83880; 84484; 85025; 93005; 99283

== ENCOUNTER 2017-06-26 11:45 | Inpatient (IN) | payer MEDICAID ==
[2017-06-26] MEDS ORDERED: Albuterol/Ipratropium NEB.SOL* Albuterol 2.5 MG/Ipratropium 0.5 MG 3 ML INH ONE (12:27)
[2017-06-26] MEDS ORDERED: methylPREDNISolone 125 MG* 2 ML VIAL IV ONE (12:27)
[2017-06-26] MEDS ORDERED: Aspirin 81 mg CHEW TAB* 81 MG TAB.CHEW PO ONE (12:27)
[2017-06-26 12:52] LABS: Hematocrit 35 % (42-52); Hemoglobin 10.7 g/dl (14.0-18.0); Mean Corpuscular HGB Conc 30 g/dl (31-36); Mean Corpuscular Hemoglobin 23 pg (27-31); Mean Corpuscular Volume 74 fL (80-94); Mean Platelet Volume 8.7 um3 (7.4-10.4); Platelet Count 181 10^3/ul (150-450); Red Blood Count 4.76 10^6/ul (4.0-5.4); Red Cell Distribution Width 19 % (10.5-15); White Blood Count 5.8 10^3/ul (3.5-10.8)
[2017-06-26 13:00] LABS: INR 0.99 (0.77-1.02)
--- NOTE | 2017-06-26 13:00 | RAD ---
INDICATION: Shortness of breath COMPARISON: Most recent comparison chest x-ray June 04, 2017 TECHNIQUE: Single AP portable view of the chest was obtained. FINDINGS: Image quality is compromised due to the relative inferiority of a portable chest x-ray. Again seen is a left upper chest cardiac pacemaker with a single lead overlying the heart. There is cardiomegaly. There are patchy densities overlying the bilateral lungs. The pulmonary vasculature appears engorged and indistinct. Visualized bones are normal for the patient's age. IMPRESSION: In the correct clinical setting chest x-ray findings appear to be most compatible with cardiogenic pulmonary edema slightly worse when compared to the most recent chest x-ray dated June 04, 2017
[2017-06-26 13:03] LABS: EGFR Non-African American 85.8 (>60)
[2017-06-26 13:34] LABS: ABS Basophils 0 10^3/ul (0-0.2); ABS Eosinophils 0.1 10^3/ul (0-0.6); ABS Lymphocytes 0.8 10^3/ul (1.0-4.8); ABS Monocytes 0.6 10^3/ul (0-0.8); ABS Neutrophils 4.2 10^3/ul (1.5-7.7); ABS Nucleated RBC 0 10^3/ul; Eosinophil % 1.5 % (0-6); Lymphocyte % 14.5 % (25-47); Nucleated Red Blood Cells % 0
[2017-06-26] MEDS ORDERED: Furosemide IV* 10 MG/ML VIAL (40 MG) IV ONE (15:55)
[2017-06-26] MEDS ORDERED: Senna TAB PO PRN (15:56)
[2017-06-26] MEDS ORDERED: Docusate CAP* 100 MG PO PRN (15:56)
[2017-06-26] MEDS ORDERED: Albuterol/Ipratropium NEB.SOL* Albuterol 2.5 MG/Ipratropium 0.5 MG 3 ML INH PRN (16:00)
[2017-06-26] MEDS ORDERED: Acetaminophen TAB* 325 MG PO PRN (16:08)
--- NOTE | 2017-06-26 18:00 | ED ---
Tao Murphy Jason, scribed for Abhishek Hernadez MD on 06/26/17 at 1218 . Shortness of Breath - HPI Summary HPI Summary: This patient is a 61 year old M presenting to [facility] with a chief complaint of SOB since 1 hour ago. I woke up this morning and I felt lightheaded, had hard time breathing, heard and felt mucous rumbling around in chest. My pulse oximeter dipped down to 68 and hung around 71. For 5 seconds I felt left-sided chest pain that resolved. I have no source of oxygen at home and regularly feel mild SOB, but this felt different. I kind of just get used to being short of breath where I live, it could be the air of the room Im in. The patient rates the pain 0/10 in severity. Symptoms aggravated by nothing. Symptoms alleviated by nothing. Patient denies coughing and nausea. Patient has a pacer and had a cardiac catheter a few years ago. He is currently on 20 mg of Xarelto. - History of Current Complaint Chief Complaint: EDShortnessOfBreath Time Seen by Provider: 06/26/17 12:07 Hx Obtained From: Patient Onset/Duration: Gradual Onset Timing: Constant Associated Signs & Symptoms: Negative - coughing, nausea - Allergy/Home Medications Allergies/Adverse Reactions: Allergies Allergy/AdvReac Type Severity Reaction Status Date / Time walnut Allergy Unknown Unknown Uncoded 04/03/17 20:11 Reaction Details Apple Allergy Unknown Uncoded 05/22/17 13:30 Reaction Details Bee Stings Venom Allergy Anaphylatic Uncoded 05/22/17 13:35 Shock Walnuts Allergy Anaphylatic Uncoded 05/22/17 13:35 Shock Home Medications: Home Medications Ciprofloxacin TAB* [Cipro 500 MG TAB*] 500 mg PO BID 06/26/17 [History Confirmed 06/26/17] PMH/Surg Hx/FS Hx/Imm Hx Previously Healthy: No Endocrine/Hematology History: Reports: Hx Anticoagulant Therapy - xarelto, Hx Anemia Denies: Hx Diabetes - hypoglycemic, Hx Systemic Lupus Erythematosus Cardiovascular History: Reports: Hx Congestive Heart Failure, Hx Coronary Artery Disease, Hx Deep Vein Thrombosis, Hx Embolism - pulmonary embolism, takes xarelto, Hx Hypercholesterolemia, Hx Hypertension, Hx Pacemaker/ICD, Hx Peripheral Vascular Disease - SSS, Hx Syncope, Other Cardiovascular Problems/ Disorders - cardiac cath Respiratory History: Reports: Hx Chronic Obstructive Pulmonary Disease (COPD) - on 2L home O2, Hx Pneumonia, Hx Pulmonary Embolism, Hx Sleep Apnea, Other Respiratory Problems/Disorders - SLEEP APNEA, ON 2 L O2 @ NIGHT, obesity hypoventilation GI History: Reports: Other GI Disorders - umbilical hernia, stool softener at home, constipation History: Reports: Hx Acute Renal Failure, Hx Kidney Stones, Hx Renal Disease - 3 episodes of renal failure Denies: Hx Dialysis Musculoskeletal History: Reports: Hx Arthritis, Hx Back Problems, Other Musculoskeletal History - bilateral metatarsal amputation Denies: Hx Rheumatoid Arthritis Sensory History: Reports: Other Sensory Impairments - Neuropathy in feet Denies: Hx Contacts or Glasses, Hx Hearing Aid Opthamlomology History: Reports: Other Sensory Impairments - Neuropathy in feet Denies: Hx Contacts or Glasses Neurological History: Reports: Hx Headaches, Other Neuro Impairments/Disorders - frequent syncope, pt states possible stroke in past Psychiatric History: Reports: Hx Depression Denies: Hx of Violent Episodes Against Others - Cancer History Hx Chemotherapy: No - Surgical History Surgery Procedure, Year, and Place: Bilateral metatarsal amputations Hx Anesthesia Reactions: No - Immunization History Date of Tetanus Vaccine: PT STATES UNSURE Date of Influenza Vaccine: NONE Infectious Disease History: Yes Infectious Disease History: Reports: Hx of Known/Suspected MRSA Denies: Traveled Outside the [place] in Last 30 Days - Family History Known Family History: Positive: Diabetes Negative: Other - denies FHx of depression - Social History Alcohol Use: None Hx Substance Use: Yes Substance Use Type: Reports: None Substance Use Comment - Amount & Last Used: chronic narcotic use Hx Tobacco Use: No Smoking Status (MU): Never Smoked Tobacco Have You Smoked in the Last Year: No Review of Systems Positive: Chest Pain Positive: Shortness Of Breath. Negative: Cough Negative: Nausea Neurological: Other - lightheaded All Other Systems Reviewed And Are Negative: Yes Physical Exam - Summary Physical Exam Summary: General: Morbidly obese, no acute pain distress Skin: warm, color reflects adequate perfusion, dry Head: normal Eyes: EOMI, ELENA ENT: normal Neck: supple, nontender Respiratory: Wheezing bilaterally, breath sounds present Cardiovascular: RRR Abdomen: soft, nontender Bowel: present Musculoskeletal: Bilateral pedal edema, strength/ROM intact Neurological: normal, sensory/motor intact, A&O x3 Psychological: affect/mood appropriate Triage Information Reviewed: Yes Vital Signs On Initial Exam: Initial Vitals Temp Pulse Resp BP Pulse Ox 98.5 F 75 20 129/98 81 06/26/17 11:52 06/26/17 11:52 06/26/17 11:52 06/26/17 11:52 06/26/17 11:52 Vital Signs Reviewed: Yes Diagnostics - Vital Signs Vital Signs Temp Pulse Resp BP Pulse Ox 06/26/17 11:59 91 06/26/17 11:52 98.5 F 75 20 129/98 81 - Laboratory Lab Results: Lab Results 06/26/17 06/26/17 06/26/17 Range/Units 12:40 12:40 12:40 WBC (3.5-10.8) 10^3/ul RBC (4.0-5.4) 10^6/ul Hgb (14.0-18.0) g/dl Hct (42-52) % MCV (80-94) fL MCH (27-31) pg MCHC (31-36) g/dl RDW (10.5-15) % Plt Count (150-450) 10^3/ul MPV (7.4-10.4) um3 Neut % (Auto) (38-83) % Lymph % (Auto) (25-47) % [place] % (Auto) (0-7) % Eos % (Auto) (0-6) % Baso % (Auto) (0-2) % Absolute Neuts (auto) (1.5-7.7) 10^3/ul Absolute Lymphs (auto) (1.0-4.8) 10^3/ul Absolute Monos (auto) (0-0.8) 10^3/ul Absolute Eos (auto) (0-0.6) 10^3/ul Absolute Basos (auto) (0-0.2) 10^3/ul Absolute Nucleated RBC 10^3/ul Nucleated RBC % INR (Anticoag Therapy) 0.99 (0.77-1.02) APTT 30.1 (26.0-36.3) seconds D-Dimer, Quantitative 242 H (Less Than 230) ng/mL Sodium 139 (139-145) mmol/L Potassium 4.1 (3.5-5.0) mmol/L Chloride 101 (101-111) mmol/L Carbon Dioxide 32 (22-32) mmol/L Anion Gap 6 (2-11) mmol/L BUN 20 (6-24) mg/dL Creatinine 0.90 (0.67-1.17) mg/dL Est GFR ( Amer) 110.3 (>60) Est GFR (Non-Af Amer) 85.8 (>60) BUN/Creatinine Ratio 22.2 H (8-20) Glucose 117 H (70-100) mg/dL Lactic Acid (0.5-2.0) mmol/L Calcium 8.9 (8.6-10.3) mg/dL Magnesium 2.0 (1.9-2.7) mg/dL Total Bilirubin 0.80 (0.2-1.0) mg/dL AST 17 (13-39) U/L ALT 19 (7-52) U/L Alkaline Phosphatase 42 (34-104) U/L Total Creatine Kinase 48 (10-223) U/L CK-MB (CK-2) 2.2 (0.6-6.3) ng/mL Troponin I 0.02 (<0.04) ng/mL C-Reactive Protein 27.15 H (< 5.00) mg/L B-Natriuretic Peptide 211 H ( - 100) pg/mL Total Protein 7.2 (6.4-8.9) g/dL Albumin 3.5 (3.2-5.2) g/dL Globulin 3.7 (2-4) g/dL Albumin/Globulin Ratio 0.9 L (1-3) Lipase 18 (11.0-82.0) U/L TSH 0.90 (0.34-5.60) mcIU/mL 06/26/17 06/26/17 Range/Units 12:40 12:40 WBC 5.8 (3.5-10.8) 10^3/ul RBC 4.76 (4.0-5.4) 10^6/ul Hgb 10.7 L (14.0-18.0) g/dl Hct 35 L (42-52) % MCV 74 L (80-94) fL MCH 23 L (27-31) pg MCHC 30 L (31-36) g/dl RDW 19 H (10.5-15) % Plt Count 181 (150-450) 10^3/ul MPV 8.7 (7.4-10.4) um3 Neut % (Auto) 73.6 (38-83) % Lymph % (Auto) 14.5 L (25-47) % [place] % (Auto) 9.8 H (0-7) % Eos % (Auto) 1.5 (0-6) % Baso % (Auto) 0.6 (0-2) % Absolute Neuts (auto) 4.2 (1.5-7.7) 10^3/ul Absolute Lymphs (auto) 0.8 L (1.0-4.8) 10^3/ul Absolute Monos (auto) 0.6 (0-0.8) 10^3/ul Absolute Eos (auto) 0.1 (0-0.6) 10^3/ul Absolute Basos (auto) 0 (0-0.2) 10^3/ul Absolute Nucleated RBC 0 10^3/ul Nucleated RBC % 0 INR (Anticoag Therapy) (0.77-1.02) APTT (26.0-36.3) seconds D-Dimer, Quantitative (Less Than 230) ng/mL Sodium (139-145) mmol/L Potassium (3.5-5.0) mmol/L Chloride (101-111) mmol/L Carbon Dioxide (22-32) mmol/L Anion Gap (2-11) mmol/L BUN (6-24) mg/dL Creatinine (0.67-1.17) mg/dL Est GFR ( Amer) (>60) Est GFR (Non-Af Amer) (>60) BUN/Creatinine Ratio (8-20) Glucose (70-100) mg/dL Lactic Acid 1.9 (0.5-2.0) mmol/L Calcium (8.6-10.3) mg/dL Magnesium (1.9-2.7) mg/dL Total Bilirubin (0.2-1.0) mg/dL AST (13-39) U/L ALT (7-52) U/L Alkaline Phosphatase (34-104) U/L Total Creatine Kinase (10-223) U/L CK-MB (CK-2) (0.6-6.3) ng/mL Troponin I (<0.04) ng/mL C-Reactive Protein (< 5.00) mg/L B-Natriuretic Peptide ( - 100) pg/mL Total Protein (6.4-8.9) g/dL Albumin (3.2-5.2) g/dL Globulin (2-4) g/dL Albumin/Globulin Ratio (1-3) Lipase (11.0-82.0) U/L TSH (0.34-5.60) mcIU/mL Result Diagrams: 06/26/17 12:40 06/26/17 12:40 Lab Statement: Any lab studies that have been ordered have been reviewed, and results considered in the medical decision making process. - Radiology cxr Radiology Interpretation Completed By: Radiologist - CXR reveals, per radiologist, In the correct clinical setting chest x-ray findings appear to be most compatible with cardiogenic pulmonary edema slightly worse when compared to the most recent chest x-ray dated June 04, 2017. ED physician has reviewed this radiology report. - EKG 1230 Cardiac Rate: NL EKG Rhythm: Sinus Rhythm - [address] Segment: Non-Specific - T abnormalities and diffuse leads Ectopy: None Course/Dx - Course Course Of Treatment: BP noted and advised to follow up with PCP. Medications reviewed. Allergies noted. ADMIT HOSPITALIST. CRITICAL CARE TIME LESS THAN 30 MINUTES. - Diagnoses Provider Diagnoses: HTN (hypertension), Hypoxia - Physician Notifications Discussed Care of Patient With: Mary Johnston Time Discussed With Above Provider: 02:25 Instructed by Provider To: Admit As Inpatient Discharge - Sign-Out/Discharge Documenting (check all that apply): Discharge - Discharge Plan Condition: Stable Disposition: ADMITTED TO [facility] - Billing Disposition and Condition Condition: STABLE Disposition: [facility] [place] The documentation as recorded by the Tao parham Jason accurately reflects the service I personally performed and the decisions made by me, Abhishek Hernadez MD.
--- NOTE | 2017-06-26 18:58 | HP ---
HISTORY AND PHYSICAL: ADDENDUM: Please note that the patient when once again talked about his code status of do not resuscitate, he stated that he must have misunderstood and for some reason, he felt that he was a full code according to his previous paperwork and documentation, which in fact was the opposite, he was do not resuscitate. At this point, the patient wants to rescind his do not resuscitate and be a full code, which is going to be done at this admission. [id number]/[facility] #: [id number] KIET
--- NOTE | 2017-06-26 19:31 | HP ---
ADDENDUM NOW INCLUDED ON THIS REPORT CC: Dr. Gilliland * HISTORY AND PHYSICAL: DATE OF ADMISSION: 06/26/17. PRIMARY CARE PROVIDER: Dr. Gilliland. CHIEF COMPLAINT: Shortness of breath. HISTORY OF PRESENT ILLNESS: Franklyn Shafer is a 61-year-old morbidly obese male , who has history of COPD and oxygen dependance in the past, but had been liberated from oxygen within the past year. He also suffers from sleep apnea and is using BiPAP at home. He was living in [facility] for quite some time until end of February of 2018, when he went to back to his apartment after prolonged rehab. He stated that he has not been using oxygen since his time in [facility] [place]. He stated that his apartment has "black mold." He has been having multiple respiratory complaints due to that and was seen in May for respiratory issues also. Approximately 2 week prior to his current admission, he was seen at [facility] where was noted to have respiratory failure and hypoxemia. He also was noted to have GI bleed and anemia due to that. The patient stated that he did not have any EGD or colonoscopy done and by the time of discharge, his hypoxemia resolved. He was discharged home without any oxygen supplementation, but had been doing poorly ever since. Then he was having wheezing and was noted to be in mild respiratory distress with oxygen saturations in the 70s on room air. He denies any cough or fevers. He stated that although, he lost approximately 100 pounds for the past 1 year, he has not been following his diet or weights closely. He is going to be placed on overnight observation with the diagnosis of shortness of breath. PAST MEDICAL HISTORY: Includes: 1. COPD prior to current hospital stay on no oxygen, history of remote oxygen dependency. 2. History of obstructive sleep apnea, on BiPAP. 3. History of paroxysmal atrial fibrillation. 4. History of DVT and PE, on Xarelto. 5. History of diastolic CHF. 6. History of status post pacemaker placement due to sick sinus syndrome. 7. History of nephrolithiasis. The patient had all of his stents removed with laser lithotripsy approximately 4 weeks ago. Four days ago new stent was removed at [facility]. 8. History of recent diagnosis of UTI, on current ciprofloxacin. 9. History of bilateral lymphedema, status post bilateral metatarsal amputations in the past. CURRENT MEDICATIONS: Includes: 1. Ciprofloxacin 500 mg b.i.d. The patient has 4 days of remaining treatment. 2. Torsemide 20 mg daily. 3. Senna 1 tablet b.i.d. 4. Potassium chloride 40 mEq daily. 5. Nitroglycerin on a p.r.n. basis. 6. Colace 100 mg b.i.d. p.r.n. 7. Aspirin 81 mg daily. ALLERGIES: Include WALNUT, BEE STINGS, APPLE. FAMILY HISTORY: Positive for mother with dementia and diabetes. SOCIAL HISTORY: The patient denies any tobacco, alcohol, or drug use. His brother, J Luis is his surrogate. The patient currently on disability and lives an independent apartment. He has aides every other day. REVIEW OF SYSTEMS: Please see history of present illness. Notable for weight loss, but unknown recent weight changes. The patient stated that his aides bandage his bad lower extremities every other day. He used to have wounds that resolved in bilateral lower extremities. He walks with the help of a walker. He goes to his appointment with BiPAP. He uses his BiPAP and apparently when the patient was in [facility], his BiPAP level was increased, but the patient is not aware to which level The patient was diagnosed with GI bleed 3 weeks ago, while in [facility], it apparently resolved spontaneously. The patient denies any problems with blood or melena noted in the stool. All the remaining 12 systems were reviewed with the patient and were otherwise negative. PHYSICAL EXAMINATION GENERAL: The patient is a very pleasant 61-year-old, morbidly obese male with a BMI of 60 kg/m2. The patient is in no acute distress. Alert, awake, and oriented x3. VITAL SIGNS: Blood pressure of 109/46, heart rate of 79 and regular, respiratory rate 16, oxygen saturation 94% on 4 liters of oxygen nasal cannula, temperature 98.5. HEENT: Head is atraumatic, normocephalic. Eyes: Extraocular motion intact. Pupils are equal, reactive to light and accommodation. Oropharynx clear. Mucosa moist. NECK: Supple. No JVD. No bruits bilaterally. RESPIRATORY: Scant wheezes in bilateral lower and mid lungs. CARDIOVASCULAR: Regular rate and rhythm. No murmur. ABDOMEN: Protuberant, soft, and nontender. Bowel sounds are present in all 4 quadrants. EXTREMITIES: There is +1 pitting pedal edema. Pulses are +2 bilaterally. No clubbing or cyanosis. The patient is status post bilateral transmetatarsal amputations with stumps healed well. He has venostasis and dermatitis in bilateral lower extremities from the level of the knees down. The skin is dry and flaky with chronic erythema, discoloration with no open wounds noted. NEURO EVALUATION: Speech is clear. Cranial nerves II through XII grossly intact. Motor strength is 5/5 bilaterally. PSYCHIATRIC EVALUATION: Oriented x3 with no evidence of anxiety or depression. DIAGNOSTIC STUDIES/LAB DATA: Laboratory data shows white blood cell count of 5.8, hemoglobin of 10.7, hematocrit of 35, MCV was 74, and platelets of 181. Sodium of 139, potassium 4.1, chloride 101, carbon dioxide 32, BUN 20, creatinine 0.9. Liver function tests unremarkable. C-reactive protein of 27. TSH was 0.9. D-dimer of 242. INR was 0.9. Portable chest x-ray, read by radiology noted as, "In the correct clinical setting chest x-ray findings appear to be most compatible with congestive pulmonary edema, slightly worse when compared to most recent x-rays from May of 2017." His EKG shows normal sinus rhythm with heart rate of 67 beats per minute with flattening of Q-waves in lead II and AVF, and biphasic Q-waves in lead III. There were also nonspecific changes with mildly negative T-waves in anteroseptal leads. Comparing with EKG from May of 2017, T-wave inversion is new. ASSESSMENT AND PLAN: 1. Episodes of shortness of breath in a patient, who stated that he has "black molds in the apartment." At this point the patient has scant wheezing. He has a history of chronic obstructive pulmonary disease and currently he is not treated with routine inhaler. At this point, the patient is going to be placed on Dulera as well as nebulizer to use on a p.r.n. basis. The patient is already started with steroids in the emergency department, which is going to be continued with prednisone. At this point, the patient appears to be in slight fluid overload and [id number] diastolic congestive heart failure. I will continue chronic torsemide, but place the patient on 1 dose of IV Lasix today. Daily weights are also going to be instituted. Unfortunately, the patient requested to be on regular diet. Low-salt diet was discussed with the patient once again, he is not interested in low-salt diet at this point. 2. The patient's EKG changes with episodes of shortness of breath. It could be angina equivalent. I will followup with troponins and if those continues to be negative. I believe the patient is to undergo cardiac stress test on Wednesday. Due to his morbid obesity, he is going to be on 2 day protocol. 3. In regards to the patient's history of recent urinary tract infection. His ciprofloxacin is going to be continued. 4. Microcytic anemia. The patient has a history of recent gastrointestinal bleed. There are no signs or symptoms of current bleeding. We will continue his anticoagulation as previously prescribed. The patient is also going to be placed on iron supplement. 5. The patient has a history of atrial fibrillation. Currently in normal sinus rhythm. Once again, his beta-melia and his Xarelto is going to be continued. 6. For his history of DVT and pulmonary edema and for DVT prophylaxis, the patient is going to be continued with his full anticoagulation. 7. The patient's code status is do not resuscitate. TIME SPENT: Approximately 72 minutes were spent on admission of this patient. More than half that time was spent [id number] with the patient doing the interview and physical exam. ADDENDUM: Please note that the patient when once again talked about his code status of do not resuscitate, he stated that he must have misunderstood and for some reason, he felt that he was a full code according to his previous paperwork and documentation, which in fact was the opposite, he was do not resuscitate. At this point, the patient wants to rescind his do not resuscitate and be a full code, which is going to be done at this admission. [id number]/CPS #: [id number]/[id number] #: [id number] KIET
[2017-06-26] MEDS: Mometasone/Formoter 100/5 MDI INH SCH (20:14)
[2017-06-26] MEDS: Ciprofloxacin TAB* 500 MG PO SCH (21:18)
[2017-06-26 22:48] LABS: Urine Appearance Clear; Urine Blood Negative (Negative); Urine Color Yellow; Urine Ketones Negative (Negative); Urine Protein Negative (Negative); Urine Urobilinogen Negative (Negative)
[2017-06-27 06:47] LABS: Hematocrit 36 % (42-52); Hemoglobin 10.8 g/dl (14.0-18.0); Mean Corpuscular HGB Conc 30 g/dl (31-36); Mean Corpuscular Hemoglobin 23 pg (27-31); Mean Corpuscular Volume 75 fL (80-94); Mean Platelet Volume 9.2 um3 (7.4-10.4); Platelet Count 175 10^3/ul (150-450); Red Cell Distribution Width 19 % (10.5-15); White Blood Count 5.2 10^3/ul (3.5-10.8)
[2017-06-27 06:55] LABS: EGFR Non-African American 92.9 (>60)
[2017-06-27] MEDS: Mometasone/Formoter 100/5 MDI INH SCH ×2 (07:32→20:28)
[2017-06-27] MEDS: Potassium Chlor TAB* 20 MEQ TAB.ER PO SCH (09:17)
[2017-06-27] MEDS: Ciprofloxacin TAB* 500 MG PO SCH ×2 (09:18→20:20)
[2017-06-27] MEDS: Ferrous Sulfate TAB* 325 MG PO SCH (09:18)
[2017-06-27] MEDS: predniSONE TAB* 50 MG PO SCH (09:18)
[2017-06-27] MEDS: Aspirin EC TAB* 81 MG TAB.EC PO SCH (09:18)
[2017-06-27] MEDS: Rivaroxaban TAB(*) 20 MG TAB PO SCH (09:18)
[2017-06-27] MEDS: Torsemide TAB* 20 MG PO SCH (09:19)
[2017-06-27] MEDS ORDERED: Furosemide IV* 10 MG/ML 2 ML VIAL (20 MG) IV ONE (11:06)
[2017-06-27] MEDS ORDERED: diPHENhydraMINE PO* 25 MG PO PRN (11:07)
--- NOTE | 2017-06-27 11:09 | PN ---
Subjective Date of Service: 06/27/17 Interval History: Pt still "feels congested". No cough, occasional wheezing. On 02 at 2 L. Objective Active Medications: Acetaminophen (Tylenol Tab*) 650 mg PO Q4H PRN PRN Reason: FEVER/PAIN Albuterol/Ipratropium (Duoneb (Albuterol 2.5 Mg/Ipratropium 0.5 Mg)) 1 neb INH Q4H PRN PRN Reason: SOB/WHEEZING Aspirin (Aspirin Ec Tab*) 81 mg PO DAILY [facility] Last Admin: 06/27/17 09:18 Dose: 81 mg Ciprofloxacin (Cipro Tab*) 500 mg PO BID [facility] Last Admin: 06/27/17 09:18 Dose: 500 mg Docusate Sodium (Colace Cap*) 100 mg PO BID PRN PRN Reason: CONSTIPATION Ferrous Sulfate (Ferrous Sulfate Tab*) 325 mg PO DAILY [facility] Last Admin: 06/27/17 09:18 Dose: 325 mg Mometasone Furoate/Formoterol Fumar (Dulera 100/5 Mdi*) 2 puff INH BID [facility] Last Admin: 06/27/17 07:32 Dose: 2 puff Potassium Chloride (Klor Con Er Tab*) 40 meq PO DAILY [facility] Last Admin: 06/27/17 09:17 Dose: 40 meq Prednisone (Deltasone Tab*) 50 mg PO DAILY [facility] Last Admin: 06/27/17 09:18 Dose: 50 mg Rivaroxaban (Xarelto(*)) 20 mg PO DAILY [facility] Last Admin: 06/27/17 09:18 Dose: 20 mg Senna (Senokot Tab*) 1 tab PO Q12HR PRN PRN Reason: CONSTIPATION Torsemide (Demadex*) 20 mg PO DAILY [facility] Last Admin: 06/27/17 09:19 Dose: 20 mg Vital Signs - 8 hr 06/27/17 06/27/17 05:36 09:25 Temperature 97.1 F Pulse Rate 68 71 Respiratory 20 18 Rate Blood Pressure 142/66 115/55 (mmHg) O2 Sat by Pulse 96 94 Oximetry Oxygen Devices in Use Now: Nasal Cannula Appearance: 61 yo M in nAD, aAOx3 Eyes: No Scleral Icterus, PERRLA Ears/Nose/Mouth/Throat: NL Teeth, Lips, Gums, Mucous Membranes Moist Neck: NL Appearance and Movements; NL JVP, Trachea Midline Respiratory: Symmetrical Chest Expansion and Respiratory Effort, - - bob bibasiliar crackles Cardiovascular: NL Sounds; No Murmurs; No JVD, RRR Abdominal: NL Sounds; No Tenderness; No Distention Lymphatic: No Cervical Adenopathy Extremities: No Clubbing, Cyanosis, - - +1 ankle edema b/l, s/p TMA b/l Skin: No Nodules or Sclerosis, - - venous stasis changes, dry flaky skin Neurological: Alert and Oriented x 3, NL Muscle Strength and Tone Result Diagrams: 06/27/17 06:14 06/27/17 06:14 Additional Lab and Data: Lab Results 06/26/17 06/26/17 06/26/17 Range/Units 12:40 12:40 12:40 WBC (3.5-10.8) 10^3/ul RBC (4.0-5.4) 10^6/ul Hgb (14.0-18.0) g/dl Hct (42-52) % MCV (80-94) fL MCH (27-31) pg MCHC (31-36) g/dl RDW (10.5-15) % Plt Count (150-450) 10^3/ul MPV (7.4-10.4) um3 Neut % (Auto) (38-83) % Lymph % (Auto) (25-47) % Snyder % (Auto) (0-7) % Eos % (Auto) (0-6) % Baso % (Auto) (0-2) % Absolute Neuts (auto) (1.5-7.7) 10^3/ul Absolute Lymphs (auto) (1.0-4.8) 10^3/ul Absolute Monos (auto) (0-0.8) 10^3/ul Absolute Eos (auto) (0-0.6) 10^3/ul Absolute Basos (auto) (0-0.2) 10^3/ul Absolute Nucleated RBC 10^3/ul Nucleated RBC % INR (Anticoag Therapy) 0.99 (0.77-1.02) APTT 30.1 (26.0-36.3) seconds D-Dimer, Quantitative 242 H (Less Than 230) ng/mL Sodium 139 (139-145) mmol/L Potassium 4.1 (3.5-5.0) mmol/L Chloride 101 (101-111) mmol/L Carbon Dioxide 32 (22-32) mmol/L Anion Gap 6 (2-11) mmol/L BUN 20 (6-24) mg/dL Creatinine 0.90 (0.67-1.17) mg/dL Est GFR ( Amer) 110.3 (>60) Est GFR (Non-Af Amer) 85.8 (>60) BUN/Creatinine Ratio 22.2 H (8-20) Glucose 117 H (70-100) mg/dL Lactic Acid (0.5-2.0) mmol/L Calcium 8.9 (8.6-10.3) mg/dL Magnesium 2.0 (1.9-2.7) mg/dL Total Bilirubin 0.80 (0.2-1.0) mg/dL AST 17 (13-39) U/L ALT 19 (7-52) U/L Alkaline Phosphatase 42 (34-104) U/L Total Creatine Kinase 48 (10-223) U/L CK-MB (CK-2) 2.2 (0.6-6.3) ng/mL Troponin I 0.02 (<0.04) ng/mL C-Reactive Protein 27.15 H (< 5.00) mg/L B-Natriuretic Peptide 211 H ( - 100) pg/mL Total Protein 7.2 (6.4-8.9) g/dL Albumin 3.5 (3.2-5.2) g/dL Globulin 3.7 (2-4) g/dL Albumin/Globulin Ratio 0.9 L (1-3) Lipase 18 (11.0-82.0) U/L TSH 0.90 (0.34-5.60) mcIU/mL 06/26/17 06/26/17 Range/Units 12:40 12:40 WBC 5.8 (3.5-10.8) 10^3/ul RBC 4.76 (4.0-5.4) 10^6/ul Hgb 10.7 L (14.0-18.0) g/dl Hct 35 L (42-52) % MCV 74 L (80-94) fL MCH 23 L (27-31) pg MCHC 30 L (31-36) g/dl RDW 19 H (10.5-15) % Plt Count 181 (150-450) 10^3/ul MPV 8.7 (7.4-10.4) um3 Neut % (Auto) 73.6 (38-83) % Lymph % (Auto) 14.5 L (25-47) % Snyder % (Auto) 9.8 H (0-7) % Eos % (Auto) 1.5 (0-6) % Baso % (Auto) 0.6 (0-2) % Absolute Neuts (auto) 4.2 (1.5-7.7) 10^3/ul Absolute Lymphs (auto) 0.8 L (1.0-4.8) 10^3/ul Absolute Monos (auto) 0.6 (0-0.8) 10^3/ul Absolute Eos (auto) 0.1 (0-0.6) 10^3/ul Absolute Basos (auto) 0 (0-0.2) 10^3/ul Absolute Nucleated RBC 0 10^3/ul Nucleated RBC % 0 INR (Anticoag Therapy) (0.77-1.02) APTT (26.0-36.3) seconds D-Dimer, Quantitative (Less Than 230) ng/mL Sodium (139-145) mmol/L Potassium (3.5-5.0) mmol/L Chloride (101-111) mmol/L Carbon Dioxide (22-32) mmol/L Anion Gap (2-11) mmol/L BUN (6-24) mg/dL Creatinine (0.67-1.17) mg/dL Est GFR ( Amer) (>60) Est GFR (Non-Af Amer) (>60) BUN/Creatinine Ratio (8-20) Glucose (70-100) mg/dL Lactic Acid 1.9 (0.5-2.0) mmol/L Calcium (8.6-10.3) mg/dL Magnesium (1.9-2.7) mg/dL Total Bilirubin (0.2-1.0) mg/dL AST (13-39) U/L ALT (7-52) U/L Alkaline Phosphatase (34-104) U/L Total Creatine Kinase (10-223) U/L CK-MB (CK-2) (0.6-6.3) ng/mL Troponin I (<0.04) ng/mL C-Reactive Protein (< 5.00) mg/L B-Natriuretic Peptide ( - 100) pg/mL Total Protein (6.4-8.9) g/dL Albumin (3.2-5.2) g/dL Globulin (2-4) g/dL Albumin/Globulin Ratio (1-3) Lipase (11.0-82.0) U/L TSH (0.34-5.60) mcIU/mL Assess/Plan/Problems-Billing Assessment: 61 yo m with h/o b/l TMA due to lymhoedema, SSS s/p pacer, JAIDEN on BIPAP, morbid obesity, DVT/PE, diastolic CHF presents with episodes of SOB and wheezing. EKG has new changes - Patient Problems (1) SOB (shortness of breath) Comment: pt is convinced that symptoms are related to "black mold" at his apartament. Today not wheezing , but still feels congested and requested Benadryl (2) Hypoxemia Comment: mild bronchospasm noted at admission and prednisone will be continued. Aslo in mild exacerbation of CHF. Suspect atelectasis from recent admission to [facility] May robbie 02 set up at d/c (3) Diastolic CHF, acute Comment: On chronic CHF. cont daily home torsemide will tx with an additional dose of IV Lasix (4) Microcytic anemia Comment: due to recent GI bleed' w/up at [facility] unrevealing Hb stable, no recurrence of bleeding noted ferrous sulfate ordered (5) Abnormal EKG Comment: new negative minerva-septal T waves worrisome in light of pt's SOB symptoms. Stress test ordered (6) UTI (urinary tract infection) Comment: diagnosed as outpatient. H/o recent ureteral stent removal at [facility]. Asymptomatic. Continue treatment with Cipro. (7) Atrial fibrillation Comment: cont Xarelto.In NSR (8) DVT prophylaxis Comment: - Xarelto Status and Disposition: OBV will be changed to inpatient due to need of cardiac monitoring and stress test
[2017-06-28 06:55] LABS: Hematocrit 36 % (42-52); Hemoglobin 10.9 g/dl (14.0-18.0); Mean Corpuscular HGB Conc 31 g/dl (31-36); Mean Corpuscular Hemoglobin 23 pg (27-31); Mean Corpuscular Volume 74 fL (80-94); Mean Platelet Volume 9.2 um3 (7.4-10.4); Platelet Count 174 10^3/ul (150-450); Red Blood Count 4.81 10^6/ul (4.0-5.4); Red Cell Distribution Width 19 % (10.5-15); White Blood Count 6.2 10^3/ul (3.5-10.8)
[2017-06-28] MEDS: Mometasone/Formoter 100/5 MDI INH SCH (08:09)
[2017-06-28] MEDS: Ferrous Sulfate TAB* 325 MG PO SCH (08:46)
[2017-06-28] MEDS: Aspirin EC TAB* 81 MG TAB.EC PO SCH (08:46)
[2017-06-28] MEDS: Rivaroxaban TAB(*) 20 MG TAB PO SCH (08:46)
[2017-06-28] MEDS: Potassium Chlor TAB* 20 MEQ TAB.ER PO SCH (08:46)
[2017-06-28] MEDS: predniSONE TAB* 50 MG PO SCH (08:46)
[2017-06-28] MEDS: Ciprofloxacin TAB* 500 MG PO SCH (08:46)
[2017-06-28] MEDS: Torsemide TAB* 20 MG PO SCH (08:46)
[2017-06-28] MEDS ORDERED: Perflutren Lipid Microsphere* 3 ML VIAL ONE (10:13)
--- NOTE | 2017-06-28 12:16 | ECHO ---
Patient: JOCELYN KHAN [facility] Rec#: [id number] : 1955 Date: 06/28/2017 Age: 61y Height: 177.8 cm / 70.0 in Weight: 200.49 kg / 441.9 lbs Sex: M BSA: 2.92 Room#: [facility] Admit Date#: 06/27/2017 Type: Inpatient Referring: Mary Johnston MD Reading: Elpidio Poe MD Dietary Manager: Carrie CottoRUPERTO CC: Javier Gilliland MD Transthoracic Echocardiogram Indication: Abnormal EKG BP: 159/72 HR: 62 Rhythm: NSR Findings History: Morbid obesity, respiration failure, DVT, PE, A-fib, PAD, s/p pacer, JAIDEN on CPAP, COPD. Technical Comments: The study is technically difficult. The study is technically limited due to poor acoustic windows. The study is technically limited due to patient body habitus. Completed at 1122. Left Ventricle: The left ventricle is not well visualized. The left ventricular chamber size is normal. Moderate to severe concentric left ventricular hypertrophy is observed. There is no consistent Doppler evidence of clinically significant diastolic dysfunction. Left Atrium: The left atrium is moderate to severely dilated. Right Ventricle: The right ventricle is moderately dilated. The right ventricular global systolic function is mildly to moderately reduced. A pacemaker wire is visualized in the right ventricle. Right Atrium: The right atrium is moderately dilated. A pacemaker wire is visualized in the right atrium. Aortic Valve: The aortic valve is trileaflet. The aortic valve leaflets are mildly thickened. There is a trace of aortic regurgitation. There is no evidence of aortic stenosis. Mitral Valve: There is mitral annular calcification. The mitral valve leaflets do not appear thickened. There is no evidence of mitral regurgitation. There is no evidence of mitral stenosis. Tricuspid Valve: The tricuspid valve leaflets are normal. There is mild to moderate tricuspid regurgitation. The right ventricular systolic pressure is estimated at 44 mmHg. There is evidence of mild to moderate pulmonary hypertension. There is no tricuspid stenosis. Pulmonic Valve: The pulmonic valve structure is not well visualized. There is no pulmonic stenosis. Pericardium: There is no significant pericardial effusion. A pericardial fat pad is visualized. Aorta: There is moderate dilatation of the ascending aorta. There is no dilatation of the aortic arch. There is moderate dilatation of the aortic root. Pulmonary Artery: The main pulmonary artery is severely dilated. Venous: Unable to accurately comment on the size collapsibility of the IVC as the patient in known to be on mechanical ventilation. The inferior vena cava is not visualized. Contrast: Definity was used to optimize study. 5 mL of diluted Definity was utilized. Intravenous contrast was used to enhance endocardial border definition. Conclusions Moderate to severe concentric left ventricular hypertrophy is observed. LV function appears near normal however images are so poor that focal wall motion abnormalities cannot be evaluated. Contrast enhancement was used without improvement There is no evidence of aortic stenosis. There is no evidence of mitral regurgitation. There is mild to moderate tricuspid regurgitation. Unable to compare to previous studies Measurements Name Value Normal Range RVIDd (AP) 2D 4.5 cm (0.9 - 2.6) RVDdMajor (2D) 5.1 cm (2.2 - 4.4) RAd ISD 4CH 6.4 cm (3.4 - 4.9) RA (A4C)W 5.2 cm (2.9 - 4.6) IVSd (2D) 1.9 cm (0.6 - 1) LVPWd (2D) 1.8 cm (0.6 - 1) LVIDd (2D) 4.5 cm (3.6 - 5.4) LVIDs (2D) 2.8 cm - LV FS (2D) 38 % (25 - 45) Aortic Annulus 2.7 cm (1.4 - 2.6) Ao root diameter (2D) 4.1 cm (2.1 - 3.5) Ascending Ao 4.3 cm (2.1 - 3.4) Aortic arch 2.7 cm (1.8 - 3.4) LA dimension (AP) 2D 3.5 cm (2.3 - 3.8) LAd ISD 4CH 7 cm (2.9 - 5.3) LA ISD 4CH W 4.9 cm (2.5 - 4.5) Name Value Normal Range LA ESV SP 4CH (A/L) 96 ml - LA ESV SP 2CH (A/L) 98 ml - LA ESV BP (A/L) 98 ml - LA ESV BP (A/L) index 35 ml/m2 - LA ESV SP 4CH (MOD) 84 ml - LA ESV SP 2CH (MOD) 97 ml - Name Value Normal Range MV E-wave Vmax 0.8 m/sec - MV deceleration time 252.31 msec - MV A-wave Vmax 0.7 m/sec - MV E:A ratio 1.13 ratio - LV septal e' Vmax 0.11 m/sec - LV lateral e' Vmax 0.1 m/sec - LV E:e' septal ratio 7.27 ratio - LV E:e' lateral ratio 8 ratio - Name Value Normal Range AV Vmax 1.2 m/sec - AV VTI 35.63 cm - AV peak gradient 5.28 mmHg - AV mean gradient 3.9 mmHg - LVOT Vmax 0.8 m/sec - LVOT VTI 20.85 cm - LVOT peak gradient 2.61 mmHg - LVOT mean gradient 1.5 mmHg - SAUL Vmax 1.14 m/sec - Name Value Normal Range TR Vmax 2.9 m/sec - TR peak gradient 34 mmHg - RAP 8 mmHg - RVSP 44 mmHg - Name Value Normal Range PV Vmax 1.16 m/sec - PV peak gradient 5.47 mmHg -
[2017-06-28 15:13] VITALS: BP 135/61
--- NOTE | 2017-06-28 22:40 | CONS ---
CC: Dr. Johnston; Oscar Casillas MD; Álvaro May MD * CARDIOLOGY CONSULTATION: DATE OF CONSULT: 06/28/17 REASON FOR CONSULTATION: Abnormal EKG, chest pain. HISTORY OF PRESENT ILLNESS: The patient is a 61-year-old gentleman well known to our office with a history of bradycardia, history of pacemaker implantation, who was admitted to the hospital because of shortness of breath and coughing. The patient is currently residing in his own apartment and he says the complex is infested with black mold and it causes significant allergic reactions to the patient. The patient states that yesterday he was at his apartment, he was feeling poorly. He does have a portable pulse ox machine and it was registering oxygen saturation of 70%. He decided to come to the emergency room for evaluation. The patient was noted to be significantly short of breath. He denied any chest pain. He denied any anginal type symptoms. He denies any lightheadedness, dizziness, or syncope. The patient was admitted to the hospital overnight because the patient had new T wave changes in his anterior leads. Again, in speaking with the patient, I cannot elicit any specific other cardiac symptoms. He denies any true anginal type symptoms. EKG yesterday demonstrates normal sinus rhythm with T wave inversions in lead V2 through V5 when compared to an EKG back in my office in October 2016. He has upright T waves in lead V3 and V4. Again in speaking with the patient, I cannot elicit any cardiac symptoms. PAST MEDICAL HISTORY: Significant for peripheral vascular disease, COPD, DVTs, paroxysmal atrial fibrillation, sleep apnea, severe obesity, nephrolithiasis, pacemaker implantation. OUTPATIENT MEDICATIONS: 1. Furosemide 20 mg a day. 2. Senna 1 tablet b.i.d. 3. Potassium 40 mEq a day. 4. Nitroglycerin. 5. Colace. 6. Aspirin 81 mg a day. ALLERGIES: No known drug allergies. SOCIAL HISTORY: He denies tobacco or alcohol use. The patient is on disability. He was living in an independent apartment; however, he frequently needs retirement placements for his care. He is on BiPAP. PHYSICAL EXAM: Height 5 feet 10 inches, weight 442 pounds. Temperature 98, blood pressure 153/52, heart rate 74, respiratory rate 20, oxygen saturation 96 % on room air. Sclerae anicteric. Oropharynx is pink without erythema. Carotids are 2+ without bruits. JVD is difficult to assess. Cardiac Exam: Distant heart sounds. S1, S2 without any obvious murmurs, rubs, or gallops. PMI is difficult to assess. Lungs: Have mildly decreased breath sounds. There is mild rhonchi. There is no rales on exam. There is no dullness to percussion. Abdomen: Obese, soft, nontender, nondistended with normoactive bowel sounds. Extremities: His lower extremities are wrapped for his edema and are difficult to examine. The patient is awake, alert, and oriented. DIAGNOSTIC STUDIES/LAB DATA: CBC within normal limits. Chemistries within normal limits. BUN 16, creatinine 0.88. AST and ALT are normal. Troponin levels are negative x3. An echocardiogram was attempted both with and without contrast enhancement. The left ventricular function could not be determined. The patient was scheduled for a chemical stress test today. Because of his weight, the patient could not safely be placed on the imaging table. I was consulted on this patient to evaluate his cardiac status, Again, currently it is difficult to assess the patient's cardiac perfusion because of his weight and poor imaging acoustics. For now, my recommendation is to stay on his current medications. I think the patient is not at high risk for cardiovascular event. His EKG does show T wave inversions. This could be due to recent pacing with T wave memory. For now, he will stay on his current medications. I do not think that a workup is necessary. The patient will follow up with Dr. Casillas as an outpatient. [id number]/[facility] #: [id number] [facility]
--- NOTE | 2017-06-29 02:06 | DS ---
CC: Dr. Gilliland; Dr. Poe; Dr. Casillas * DISCHARGE SUMMARY: DATE OF ADMISSION: 06/26/17 DATE OF DISCHARGE: 06/28/17 PRIMARY CARE PROVIDER: Dr. Gilliland. DISCHARGE DIAGNOSES: Episodes of dyspnea and wheezing likely related to episodes of chronic obstructive pulmonary disease exacerbation with bronchospasm as well as mild diastolic congestive heart failure. The contributing factor is anemia due to recent GI bleed within the past month. The patient also had gained weight again and likely developed atelectasis during his last hospital stay. SECONDARY DIAGNOSES: 1. New abnormal EKG with negative T-waves in the anterolateral leads. Dr. Poe was consulted and the patient was cleared for discharge. 2. History of obstructive sleep apnea, on BiPAP. 3. Recurrent hypoxemia. The patient once again is going to be prescribed oxygen at 2 L to go home with. He used to have history of remote oxygen dependency, but he has not used oxygen for several months now until this hospital stay. 4. History of paroxysmal atrial fibrillation. 5. History of deep venous thrombosis and pulmonary embolism, on Xarelto. 6. History of diastolic congestive heart failure with "normal" EF, although the patient's EF was always difficult for evaluation due to his morbid obesity. 7. History of status post pacemaker placement due to sick sinus syndrome. 8. History of nephrolithiasis. He had history of recent laser lithotripsy and stent exchange and removal at [facility] 4 days prior to current hospital stay. 9. History of recent diagnosis of urinary tract infection, on ciprofloxacin that was completed with his course of treatment during the hospital stay. 10. History of bilateral lymphedema with bilateral metatarsal amputations in the past. MEDICATIONS AT DISCHARGE: Include: 1. Albuterol inhaler 2 puffs every 4 hours p.r.n. 2. Aspirin 81 mg daily. 3. Benadryl 25 mg every 6 hours for allergy symptoms. 4. Colace 100 mg b.i.d. 5. Ferrous sulfate 325 mg daily. 6. Nitroglycerin on a p.r.n. basis. 7. Potassium chloride 40 mEq daily. 8. Prednisone 50 mg daily for a total of 3 days. 9. Xarelto 20 mg daily. 10. Senna 1 tablet every 12 hours. 11. Torsemide 20 mg daily. The patient is being discharged with continuation on his BiPAP at night. The patient is also discharged with oxygen set up 2 L continuously due to hypoxemia that continued throughout his hospital stay. FOLLOWUP: The patient is recommended to follow up with Dr. Gililland in approximately 4 to 7 days. LABORATORY DATA: Studies performed during the hospital stay included: On 06/28, white blood cell count 6.2, hemoglobin 10.9, hematocrit 36, MCV of 74, and platelets of 174,000. The patient's sodium was 138, potassium 3.6, chloride 97 , carbon dioxide 35, BUN 16, creatinine 0.88. The patient's hemoglobin A1c was noted to be 6.1. TSH at admission was noted to be 0.9. The patient's brain natriuretic peptide was 211 at admission and C-reactive protein is 27 at admission. His troponin ranged from 0.01 to 0.03 throughout his hospital stay. Transthoracic echocardiogram obtained on the day of discharge showed moderate-to - severe LVH with LV function appeared to be normal. Contrast enhancement was used without improvement. There was no evidence of aortic stenosis, no evidence of mitral regurgitation and [id number] tricuspid regurgitation. The patient's portable chest x-ray evaluated at admission, impression: "In the correct clinical setting, chest x-ray findings appear to be most compatible with cardiogenic pulmonary edema, slightly worse when compared to the most recent x-ray dated 06/04/2017." HOSPITALIZATION COURSE: Mr. Shafer is a 61-year-old morbidly obese male with history of lymphedema and subsequent to lymphedema he developed bilateral lower extremity infections and had transmetatarsal amputations of bilateral feet. He also had a history of obstructive sleep apnea on BiPAP and chronic hypoxemic respiratory failure for which he used to be on oxygen. Within the past year, he was liberated from his oxygen when he was at a rehab center in [facility] where he lost a lot of body weight. In February 2017, he went back to independent living. With that he regained approximately 20 to 30 pounds. Within the past month, he was hospitalized at [facility] for GI bleed which as per patient was exacerbation, the source was not found. He also had respiratory failure at that point. When he presented to our facility, he was wheezing. He complained of that being related to black mold problem in his apartment. He was admitted and treated for COPD exacerbation with steroids and nebulizers. He was also given a couple of doses of intravenous Lasix with no marked improvement, although diastolic CHF was probably contributing to the patient's presentation. At this point, apart from diastolic CHF, as well as COPD exacerbation being the most likely etiology of the patient's shortness of breath, angina like symptoms were also on differential. The patient's EKG showed significant changes from prior with negative T-waves in anterolateral leads. We attempted to obtain a cardiac stress test, but unfortunately due to his body habitus and BMI of 63, he is not a candidate for nuclear study and not a candidate for stress echo. At this point, I asked Dr. Poe to see the patient in consultation who stated that the patient is not at this point in any need of cardiac catheterization and there is no other way to assess the patient's cardiac status at this point. The patient is urged to come back to the emergency department if he develops worsening dyspnea, chest pain or any other worrisome symptoms. He is also asked to follow up with Dr. Casillas after his hospital stay. It became apparent that due to the patient's recent GI bleed and new microcytic anemia as well as weight gain and possible atelectasis due to recent hospital stay, the patient is hypoxemic and again he will require oxygen at discharge. He qualified for oxygen at discharge and that will be set up prior to his going home. He is going be be on oxygen at 2 L continuously. At discharge, the patient is recommended to follow with his primary care provider. He is also recommended to follow up with his control and recovery combat rescue, Dr. Casillas, in approximately 2 to 4 weeks. PHYSICAL EXAMINATION AT THE TIME OF DISCHARGE: Vital Signs: Blood pressure 135 /61, heart rate of 74 and regular, respiratory rate 16, oxygen saturation 93% on 2 L of oxygen nasal cannula, temperature 98.1. General: The patient is a very pleasant 61-year-old male with a BMI of 63. The patient is in no acute distress. Alert and oriented x3. HEENT: Head: Atraumatic, normocephalic. Eyes : Pupils equal and reactive to light and accommodation. Oropharynx clear. Mucosa moist. Neck: Supple. No JVD. No bruit bilaterally. Cardiovascular: Regular rate and rhythm. No murmurs. Respiratory: Clear to auscultation bilaterally with very very scant minimal bibasilar wheezes. Abdomen: Protuberant, soft, nontender. Bowel sounds present in all 4 quadrants. Extremities: There is venous stasis edema, bilateral lower extremity skin changes with dry flaky skin with a couple of areas of his right lower extremity with very superficial ulcerations of stage 1 to 2. Bilateral feet are status post transmetatarsal amputation with stumps healed and no evidence of wounds on the feet. Neuro Evaluation: Speech clear. Cranial nerves II through XII grossly intact. Motor strength is 5/5 bilaterally. Please note that this is a short summary of the patient's hospitalization. Please refer to further medical records for details. TIME SPENT: Approximately 45 minutes was spent in preparation of the patient's discharge. [id number]/[facility] #: [id number] KIET
== END 2017-06-28 18:19 | disposition home or self-care (01) | DRG 194 ==
LOC: ED 11:45 → MEDTELE 15:51 → OBSVTOIN 06-27 12:42
PROVIDERS: ADMIT Internal Medicine; ATTEND Internal Medicine
PROC: 5A09457 Assistance with Respiratory Ventilation, 24-96 Consecutive Hours, Continuous Positive Airway Pressure (ICD-10-PCS; principal; 2017-06-26)
DX: I50.33 Acute on chronic diastolic (congestive) heart failure (principal); J44.1 Chronic obstructive pulmonary disease with (acute) exacerbation; J96.11 Chronic respiratory failure with hypoxia; N39.0 Urinary tract infection, site not specified; J98.11 Atelectasis; Z68.44 Body mass index [BMI] 60.0-69.9, adult; I49.5 Sick sinus syndrome; I48.0 Paroxysmal atrial fibrillation; E66.01 Morbid (severe) obesity due to excess calories; I20.9 Angina pectoris, unspecified; G47.33 Obstructive sleep apnea (adult) (pediatric); L30.8 Other specified dermatitis; I87.8 Other specified disorders of veins; D50.0 Iron deficiency anemia secondary to blood loss (chronic); I73.9 Peripheral vascular disease, unspecified; R06.02 Shortness of breath; Z86.718 Personal history of other venous thrombosis and embolism; Z79.01 Long term (current) use of anticoagulants; Z86.711 Personal history of pulmonary embolism; Z95.0 Presence of cardiac pacemaker; Z79.82 Long term (current) use of aspirin; Z79.899 Other long term (current) drug therapy; Z91.030 Bee allergy status; Z91.018 Allergy to other foods; Z83.3 Family history of diabetes mellitus
CPT/HCPCS: 36415; 71045; 80048; 80053; 81003; 82550; 82553; 83036; 83605; 83690; 83735; 83880; 84443; 84484; 85025; 85027; 85379; 85610; 85730; 86140; 93005; 93306; 94640; 94660; 94760; 99283; A9270-GY; C8929; J1940; J2930; J7512

== ENCOUNTER 2017-08-05 12:50 | Inpatient (IN) | payer MEDICAID ==
--- NOTE | 2017-08-05 14:08 | RAD ---
INDICATION: Slurred speech. Confusion COMPARISON: June 26, 2017 TECHNIQUE: PA and lateral dual-energy views were obtained. FINDINGS: Bones/Soft Tissues: There are no acute bony findings. There is a left-sided cardiac pacemaker Cardiomediastinal: The cardiac silhouette remains enlarged but unchanged. Central pulmonary vessels and interstitium are prominent consistent with interstitial congestion. Lungs: There are no infiltrates. Pleura: There are no pleural effusions. Other: None IMPRESSION: CARDIOMEGALY WITH INTERSTITIAL CONGESTION, UNCHANGED
--- NOTE | 2017-08-05 14:22 | RAD ---
INDICATION: Slurred speech COMPARISON: [id number] TECHNIQUE: Noncontrast axial source images were acquired from the skull base to the vertex. FINDINGS: Ventricles/sulci: The ventricles and cisterns are normal in size and configuration for age. Brain parenchyma: There is no focal parenchymal finding, evidence of intracranial mass, or intracranial mass effect. Intracranial hemorrhage:None. Extra-axial spaces: There are no abnormal extra axial fluid collections or evidence of extra-axial mass. Calvarium: There is no calvarial fracture or other calvarial abnormality. Scalp: There is no evidence of scalp or extracalvarial soft tissue abnormality. Paranasal sinuses/mastoid: The paranasal sinuses and mastoid air cells are clear. Other: None. IMPRESSION: No acute intracranial findings
[2017-08-05 14:40] LABS: ABS Basophils 0.1 10^3/ul (0-0.2); ABS Eosinophils 0.1 10^3/ul (0-0.6); ABS Lymphocytes 0.9 10^3/ul (1.0-4.8); ABS Monocytes 0.5 10^3/ul (0-0.8); ABS Neutrophils 3.3 10^3/ul (1.5-7.7); ABS Nucleated RBC 0 10^3/ul; Eosinophil % 2.9 % (0-6); Hematocrit 41 % (42-52); Hemoglobin 12.4 g/dl (14.0-18.0); Lymphocyte % 19.1 % (25-47); Mean Corpuscular HGB Conc 30 g/dl (31-36); Mean Corpuscular Hemoglobin 23 pg (27-31); Mean Corpuscular Volume 77 fL (80-94); Mean Platelet Volume 9.2 um3 (7.4-10.4); Nucleated Red Blood Cells % 0; Platelet Count 176 10^3/ul (150-450); Red Blood Count 5.31 10^6/ul (4.0-5.4); Red Cell Distribution Width 24 % (10.5-15); White Blood Count 4.9 10^3/ul (3.5-10.8)
[2017-08-05 14:45] LABS: INR 0.96 (0.77-1.02)
[2017-08-05 14:59] LABS: EGFR Non-African American 95.5 (>60)
[2017-08-05] MEDS ORDERED: Furosemide IV* 10 MG/ML VIAL (40 MG) IV ONE (17:37)
[2017-08-05] MEDS ORDERED: Docusate CAP* 100 MG PO PRN (17:39)
[2017-08-05] MEDS ORDERED: Senna TAB PO PRN (17:39)
[2017-08-05] MEDS ORDERED: Nitroglycerin TAB 0.4 MG* 0.4 MG TAB SL PRN (17:39)
[2017-08-05] MEDS ORDERED: Albuterol HFA INHALER* 8 gm MDI INH PRN (17:39)
--- NOTE | 2017-08-05 17:41 | ED ---
Arturo Murphy Stephanie, scribed for Javier Pena MD on 08/05/17 at 1322 . Altered Mental Status - HPI Summary HPI Summary: The pt is a 61 y/o M BIBA to the ED with c/o slurred speech and confusion that began this morning. Symptoms include sudden onset sharp L frontal WALL that began this morning, SOB and L sided chest pressure (lasted 10 minutes and is now resolved). The pt states he was told his confusion lasted approximately 1 hour and is now resolved. - History Of Current Complaint Stated Complaint: CONFUSION Time Seen by Provider: 08/05/17 12:56 Hx Obtained From: Patient Onset/Duration: Resolved Timing: Intermittent, Lasting Hours - 1 Severity Currently: Mild Character: Confusion Aggravating Factor(s): Unknown Alleviating Factor(s): Unknown Associated Signs And Symptoms: Positive: Headache - Allergies/Home Medications Allergies/Adverse Reactions: Allergies Allergy/AdvReac Type Severity Reaction Status Date / Time walnut Allergy Unknown Unknown Uncoded 04/03/17 20:11 Reaction Details Apple Allergy Unknown Uncoded 05/22/17 13:30 Reaction Details Bee Stings Venom Allergy Anaphylatic Uncoded 05/22/17 13:35 Shock Walnuts Allergy Anaphylatic Uncoded 05/22/17 13:35 Shock PMH/Surg Hx/FS Hx/Imm Hx Endocrine/Hematology History: Reports: Hx Anticoagulant Therapy - xarelto, Hx Anemia Denies: Hx Diabetes - hypoglycemic, Hx Systemic Lupus Erythematosus Cardiovascular History: Reports: Hx Congestive Heart Failure, Hx Coronary Artery Disease, Hx Deep Vein Thrombosis, Hx Embolism - pulmonary embolism, takes xarelto, Hx Hypercholesterolemia, Hx Hypertension, Hx Pacemaker/ICD, Hx Peripheral Vascular Disease - SSS, Hx Syncope, Other Cardiovascular Problems/ Disorders - cardiac cath Respiratory History: Reports: Hx Chronic Obstructive Pulmonary Disease (COPD) - on 2L home O2, Hx Pneumonia, Hx Pulmonary Embolism, Hx Sleep Apnea, Other Respiratory Problems/Disorders - SLEEP APNEA, ON 2 L O2 @ NIGHT, obesity hypoventilation GI History: Reports: Other GI Disorders - umbilical hernia, stool softener at home, constipation History: Reports: Hx Acute Renal Failure, Hx Kidney Stones, Hx Renal Disease - 3 episodes of renal failure Denies: Hx Dialysis Musculoskeletal History: Reports: Hx Arthritis, Hx Back Problems, Other Musculoskeletal History - bilateral metatarsal amputation Denies: Hx Rheumatoid Arthritis Sensory History: Reports: Other Sensory Impairments - Neuropathy in feet Denies: Hx Contacts or Glasses, Hx Hearing Aid Opthamlomology History: Reports: Other Sensory Impairments - Neuropathy in feet Denies: Hx Contacts or Glasses Neurological History: Reports: Hx Headaches, Other Neuro Impairments/Disorders - frequent syncope, pt states possible stroke in past Psychiatric History: Reports: Hx Depression Denies: Hx of Violent Episodes Against Others - Cancer History Hx Chemotherapy: No - Surgical History Surgery Procedure, Year, and Place: Bilateral metatarsal amputations Hx Anesthesia Reactions: No - Immunization History Date of Tetanus Vaccine: PT STATES UNSURE Date of Influenza Vaccine: NONE Infectious Disease History: No Infectious Disease History: Reports: Hx of Known/Suspected MRSA Denies: Traveled Outside the [place] in Last 30 Days - Family History Known Family History: Positive: Diabetes Negative: Other - denies FHx of depression - Social History Occupation: Disabled Lives: Alone Alcohol Use: None Hx Substance Use: No Substance Use Type: Reports: None Substance Use Comment - Amount & Last Used: chronic narcotic use Hx Tobacco Use: No Smoking Status (MU): Never Smoked Tobacco Have You Smoked in the Last Year: No Review of Systems Negative: Fever Positive: Chest Pain - L sided pressure Positive: Shortness Of Breath Neurological: Other - confusion Positive: Headache - L sided frontal , Slurred Speech All Other Systems Reviewed And Are Negative: Yes Physical Exam - Summary Physical Exam Summary: VITAL SIGNS: Reviewed. GENERAL: Patient is an obese MALE who is lying comfortable in the stretcher. Patient is not in any acute respiratory distress. HEAD AND FACE: No signs of trauma. No ecchymosis, hematomas or skull depressions. No sinus tenderness. EYES: PERRLA, EOMI x 2, No injected conjunctiva, no nystagmus. EARS: Hearing grossly intact. Ear canals and tympanic membranes are within normal limits. MOUTH: Oropharynx within normal limits. NECK: Supple, trachea is midline, no adenopathy, no JVD, no carotid bruit, no c- spine tenderness, neck with full ROM. CHEST: Symmetric, no tenderness at palpation LUNGS: Clear to auscultation bilaterally. No wheezing or crackles. CVS: Regular rate and rhythm, S1 and S2 present, no murmurs or gallops appreciated. ABDOMEN: Soft, non-tender. No signs of distention. No rebound no guarding, and no masses palpated. Bowel sounds are normal. EXTREMITIES: FROM in all major joints, no edema, no cyanosis or clubbing. NEURO: Alert and oriented x 3. No acute neurological deficits. Speech is normal and follows commands. SKIN: Dry and warm, bilateral LE swelling and wounds with purulent discharge Triage Information Reviewed: Yes Vital Signs On Initial Exam: Initial Vitals Temp Pulse Resp BP Pulse Ox 98.5 F 74 18 137/68 97 08/05/17 13:10 08/05/17 13:10 08/05/17 13:10 08/05/17 13:10 08/05/17 13:10 Vital Signs Reviewed: Yes Diagnostics - Vital Signs Vital Signs Temp Pulse Resp BP Pulse Ox 08/05/17 13:10 98.5 F 74 18 137/68 97 - Laboratory Lab Results: Lab Results 08/05/17 08/05/17 08/05/17 Range/Units 14:19 14:19 14:19 WBC 4.9 (3.5-10.8) 10^3/ul RBC 5.31 (4.0-5.4) 10^6/ul Hgb 12.4 L (14.0-18.0) g/dl Hct 41 L (42-52) % MCV 77 L (80-94) fL MCH 23 L (27-31) pg MCHC 30 L (31-36) g/dl RDW 24 H (10.5-15) % Plt Count 176 (150-450) 10^3/ul MPV 9.2 (7.4-10.4) um3 Neut % (Auto) 66.2 (38-83) % Lymph % (Auto) 19.1 L (25-47) % Deuel % (Auto) 10.7 H (0-7) % Eos % (Auto) 2.9 (0-6) % Baso % (Auto) 1.1 (0-2) % Absolute Neuts (auto) 3.3 (1.5-7.7) 10^3/ul Absolute Lymphs (auto) 0.9 L (1.0-4.8) 10^3/ul Absolute Monos (auto) 0.5 (0-0.8) 10^3/ul Absolute Eos (auto) 0.1 (0-0.6) 10^3/ul Absolute Basos (auto) 0.1 (0-0.2) 10^3/ul Absolute Nucleated RBC 0 10^3/ul Nucleated RBC % 0 INR (Anticoag Therapy) 0.96 (0.77-1.02) APTT 32.7 (26.0-36.3) seconds Sodium 140 (139-145) mmol/L Potassium 4.0 (3.5-5.0) mmol/L Chloride 102 (101-111) mmol/L Carbon Dioxide 33 H (22-32) mmol/L Anion Gap 5 (2-11) mmol/L BUN 17 (6-24) mg/dL Creatinine 0.82 (0.67-1.17) mg/dL Est GFR ( Amer) 122.8 (>60) Est GFR (Non-Af Amer) 95.5 (>60) BUN/Creatinine Ratio 20.7 H (8-20) Glucose 123 H (70-100) mg/dL Lactic Acid (0.5-2.0) mmol/L Calcium 8.8 (8.6-10.3) mg/dL Total Bilirubin 0.70 (0.2-1.0) mg/dL AST 12 L (13-39) U/L ALT 8 (7-52) U/L Alkaline Phosphatase 32 L (34-104) U/L Troponin I 0.00 (<0.04) ng/mL Total Protein 7.1 (6.4-8.9) g/dL Albumin 3.4 (3.2-5.2) g/dL Globulin 3.7 (2-4) g/dL Albumin/Globulin Ratio 0.9 L (1-3) Triglycerides 86 mg/dL Cholesterol 157 mg/dL LDL Cholesterol 101 mg/dL HDL Cholesterol 38.6 mg/dL Serum Alcohol < 10 (<10) mg/dL 08/05/17 Range/Units 14:19 WBC (3.5-10.8) 10^3/ul RBC (4.0-5.4) 10^6/ul Hgb (14.0-18.0) g/dl Hct (42-52) % MCV (80-94) fL MCH (27-31) pg MCHC (31-36) g/dl RDW (10.5-15) % Plt Count (150-450) 10^3/ul MPV (7.4-10.4) um3 Neut % (Auto) (38-83) % Lymph % (Auto) (25-47) % Deuel % (Auto) (0-7) % Eos % (Auto) (0-6) % Baso % (Auto) (0-2) % Absolute Neuts (auto) (1.5-7.7) 10^3/ul Absolute Lymphs (auto) (1.0-4.8) 10^3/ul Absolute Monos (auto) (0-0.8) 10^3/ul Absolute Eos (auto) (0-0.6) 10^3/ul Absolute Basos (auto) (0-0.2) 10^3/ul Absolute Nucleated RBC 10^3/ul Nucleated RBC % INR (Anticoag Therapy) (0.77-1.02) APTT (26.0-36.3) seconds Sodium (139-145) mmol/L Potassium (3.5-5.0) mmol/L Chloride (101-111) mmol/L Carbon Dioxide (22-32) mmol/L Anion Gap (2-11) mmol/L BUN (6-24) mg/dL Creatinine (0.67-1.17) mg/dL Est GFR ( Amer) (>60) Est GFR (Non-Af Amer) (>60) BUN/Creatinine Ratio (8-20) Glucose (70-100) mg/dL Lactic Acid 1.3 (0.5-2.0) mmol/L Calcium (8.6-10.3) mg/dL Total Bilirubin (0.2-1.0) mg/dL AST (13-39) U/L ALT (7-52) U/L Alkaline Phosphatase (34-104) U/L Troponin I (<0.04) ng/mL Total Protein (6.4-8.9) g/dL Albumin (3.2-5.2) g/dL Globulin (2-4) g/dL Albumin/Globulin Ratio (1-3) Triglycerides mg/dL Cholesterol mg/dL LDL Cholesterol mg/dL HDL Cholesterol mg/dL Serum Alcohol (<10) mg/dL Result Diagrams: 08/05/17 14:19 08/05/17 14:19 Lab Statement: Any lab studies that have been ordered have been reviewed, and results considered in the medical decision making process. - Radiology CXR Xray Interpretation: No Acute Changes Radiology Interpretation Completed By: Radiologist - CARDIOMEGALY WITH INTERSTITIAL CONGESTION, UNCHANGED . ED physician has reviewed this report. - CT Brain CT Interpretation: No Acute Changes CT Interpretation Completed By: Radiologist - NO ACUTE INTRACRANIAL FINDINGS. ED physician has reviewed this report. - EKG 13:50 Cardiac Rate: NL EKG Rhythm: Sinus Rhythm - 66 BPM EKG Interpretation: no ST elevations, T wave inversions in lead III and aVF Altered Mental Statu Course/Dx - Course Assessment/Plan: This patient is a 61-year-old male who presents to the emergency department via ambulance with a chief complaint of having an episode of a slow speech and confusion. This was witnessed by the caregiver and they report that the symptoms lasted for 1 hour. At this time the patient is alert and oriented 3 and has no complaints. Patient also reports that prior to arrival he had one episode of chest pressure. Asymptomatic at this point. Initially the patient was placed in a site monitor, IV axis was obtained, blood work, chest x-ray and head CT was ordered. Head CT impression: No acute intracranial findings. Chest x-ray impression: Cardiomegaly with interstitial congestion, unchanged from previous. EKG shows a normal sinus rhythm at 66 beats per minute with no ST elevations. Blood work without any significant abnormality except for slight hypochromic and microcytic anemia, increased carbon dioxide of 33, glucose 123, alkaline phosphatase 32. At this point because of the symptoms I believe the patient may have had a TIA. Therefore at this time and discussed my physical exam and findings with Dr. Delaney from the hospitalist services who accepted patient for admission. The patient is hemodynamically stable alert and oriented 3 - Diagnoses Differential Diagnosis/HQI/PQRI: CVA, Medication Reaction, Seizure, TIA Provider Diagnoses: TIA (transient ischemic attack) - Provider Notifications Discussed Care Of Patient With: Chalo Delaney Time Discussed With Above Provider: 16:22 Instructed by Provider To: Admit As Inpatient Discharge - Sign-Out/Discharge Documenting (check all that apply): Discharge/Admit/Transfer - Admit - Discharge Plan Condition: Stable Disposition: ADMITTED TO [facility] Referrals: Javier Gilliland MD [Primary Care Provider] - - Billing Disposition and Condition Condition: STABLE Disposition[place] [facility] [place] The documentation as recorded by the Arturo parham Stephanie accurately reflects the service I personally performed and the decisions made by me, Javier Pena MD.
[2017-08-05] MEDS ORDERED: cefTRIAXone(*) 1 GM in NS 0.9% 50 ML* 50 ML IVPB SCH (18:00)
[2017-08-05 18:48] LABS: Urine Appearance Clear; Urine Blood 1+ (Negative); Urine Color Yellow; Urine Ketones Negative (Negative); Urine Protein Negative (Negative); Urine Specific Gravity 1.011 (1.010-1.030); Urine Urobilinogen Negative (Negative)
--- NOTE | 2017-08-05 18:59 | RAD ---
CPT II Codes: 3100F INDICATION: Transient ischemic attack COMPARISON: None TECHNIQUE: Multiple bagley scale, color and doppler tracings of the common, internal and external carotid and vertebral arteries were obtained. Stenosis estimations reflect velocity criteria that have been correlated to angiographic stenosis calculations based on the distal internal carotid diameter. Right carotid: There is mild, partially calcified plaque within the right carotid bulb. The peak systolic velocity in the proximal right internal carotid artery is 85 cm/s and the maximum end-diastolic velocity is 25 cm/s. The peak systolic velocity in the distal common carotid artery is 126 cm/s and the maximum end-diastolic velocity is 21 cm/s. The internal to common carotid ratio is 0.68. This would be consistent with a less than 50% stenosis. Left carotid: There is mild plaque within the left carotid bulb. The peak systolic velocity in the proximal right internal carotid artery is 95 cm/s and the maximum end-diastolic velocity is 27 cm/s. The peak systolic velocity in the distal common carotid artery is 150 cm/s and the maximum end-diastolic velocity is 21 cm/s. The internal to common carotid ratio is 0.64. This would be consistent with a less than 50% stenosis. Vertebrals: There is antegrade flow in both vertebral arteries. IMPRESSION: 1. There is no sonographic evidence of hemodynamically significant stenosis in the bilateral carotid arteries according to the NASCET criteria. 2. Elevated flow velocities are recorded the bilateral common carotid arteries. If there is compelling clinical evidence of arterial insufficiency further characterization can be made with CTA head and neck.
[2017-08-05] MEDS: Rivaroxaban TAB(*) 20 MG TAB PO SCH (21:43)
[2017-08-05] MEDS: oxyCODONE/Acetamin 5/325 MG* TAB PO PRN (23:10)
--- NOTE | 2017-08-06 01:28 | HP ---
HISTORY AND PHYSICAL: DATE OF ADMISSION: 08/05/17 ADMITTING PROVIDER: Chalo Delaney MD PRIMARY CARE PROVIDER: Dr. Gilliland. OUTPATIENT WRITER PRODUCER: Dr. Valencia. OUTPATIENT LINUX KERNEL DEVELOPER: Dr. Casillas. CHIEF COMPLAINT: Altered mental status with reported slurred speech, confusion ; [id number] hypoxic respiratory failure. HISTORY OF PRESENT ILLNESS: Franklyn Shafer is a 61-year-old male with past medical history of morbid obesity; COPD; chronic hypoxic obstructive sleep apnea , on BiPAP; paroxysmal atrial fibrillation; DVT, PE on Xarelto; diastolic heart failure; sick sinus syndrome, status post pacemaker; nephrolithiasis with multiple recent laser lithotripsies; lymphedema, who on the morning of admission was fatigued upon waking. His health aids, who are EMS trained, thought that he was then slurring his words, confused, not making sense, had memory issues and there were concerned for a TIA. His blood sugars were checked in the 120s. His blood pressure was in the 120s/70s. He was referred to [facility] [place]. He seemed to have become less confused in the ambulance. Notably, he was also very hypoxic at 81% on 3 L. He has intermittent oxygen requirement p.r.n. 3 to 4 L, wears BiPAP at night for his JAIDEN, (Settings 20/8, recently changed from 12/6 with improved feelings of restfulness in the morning). The patient had a CT of the head in the emergency room without any evidence of acute infarction. He was referred to the hospitalist service for a TIA workup. Notably, he also had "odd smelling urine " and Dr. Gilliland asked them to drop off urine sample yesterday that is now returning with 3+ white count and 1+ leukocyte esterase and 3+ rbc's, and is growing 75 to 100,000 Proteus mirabilis. Sensitivities are pending. He denies any dysuria, fevers, chills. He has chronic lymphedema. He thinks his volume status is close to his baseline in terms of his edema. He was recently discharged, 06/28/17, with COPD vs diastolic CHF exacerbation. He had an echocardiogram at that time, which showed [id number] tricuspid regurgitation, mildly severe LVH, near normal EF, though limited study. He is too big to fit on the table to get a stress test. He weighs 199 kg. Notably, this morning, he also had a left-sided headache, which is somewhat unusual for him. He has recently had 3 surgeries at [facility] over the last few months to try to address the 1.5 inch kidney stone. He is attesting to pain in his left flank. In her emergency room, he was afebrile on 4 L of oxygen. He took aspirin 162 mg this morning with EMS. PAST MEDICAL HISTORY: COPD with intermittent hypoxic respiratory failure and obstructive sleep apnea, on BiPAP 01/11; paroxysmal atrial fibrillation (though the patient denies this).; DVT and PE, on Xarelto; diastolic heart failure; sick sinus syndrome, status post permanent pacemaker in approximately 2007; nephrolithiasis with recent multiple laser lithotripsy, stent placements at [facility]; recent urinary tract infection; bilateral lymphedema. CURRENT MEDICATIONS: Include: 1. Aspirin 81 mg daily. 2. Prednisone 50 mg p.o. p.r.n. for suspected shortness of breath due to COPD exacerbations. 3. Benadryl 25 mg p.o. q.6 hours p.r.n. 4. Torsemide 20 mg q.p.m. 5. Senokot 1 tab p.o. q.12 hours p.r.n. 6. Xarelto 20 mg p.o. q.p.m. 7. Potassium chloride 40 mEq p.o. q.p.m. 8. Nitroglycerin 0.4 sublingual q.5 minutes p.r.n. 9. Ferrous sulfate 325 mg p.o. q.p.m. 10. Docusate 100 mg p.o. b.i.d. p.r.n. 11. Albuterol 2 puffs inhaled q.4 hours p.r.n. ALLERGIES: Include WALNUT, APPLE, BEE STINGS, VENOM. FAMILY HISTORY: Dad at age 87 of lung tumor, he was a former smoker. Mother at age 88 of stroke and Alzheimer's disease complications. 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 His brother, J Luis Shafer, is his medical surrogate. He desires to be a full code. REVIEW OF SYSTEMS: A complete 14-point review of systems negative except as per HPI. PHYSICAL EXAMINATION GENERAL APPEARANCE: Chronically ill-appearing. VITAL SIGNS: Temperature 98.5, pulse rate 77, respiratory rate 11, sating 90% on 4 L, blood pressure 135/68. HEENT: Normocephalic, atraumatic. Pupils equally round and reactive to light. Extraocular motions intact. No scleral icterus. Mucous membranes moist. No oropharyngeal lesions. NECK: Supple. PULMONARY: Distant left lung sounds with no margarito rales, rhonchi or wheezing. CARDIOVASCULAR: Regular rate and rhythm. No murmurs, rubs, or gallops. ABDOMEN: Soft, obese, and some left lower quadrant pain referred to the left flank. EXTREMITIES: He is status post bilateral TMAs. He has 1+ pitting edema bilaterally secondary to lymphedema. There is Flo bandage wrapped on the right. There is some slight skin breakdown at the superior edge of the left sock /upper reynaga interface. No gross malodor or drainage or tenderness. NEURO: Cranial nerves II through XII are intact. Mixed Livestock Farm Worker strength is 5/5. Hip flexion 5/5. Dorsi and plantarflexion are both 3/5. Unchanged from prior per his report. LABORATORY DATA: White count 4.9, hemoglobin 12.5, hematocrit of 41, platelets 176. INR 0.96. Sodium 140, potassium 4.0, chloride 102, carbon dioxide 33, BUN 17, creatinine 0.82, glucose 123, lactic acid 1.3, total bili 0.7, AST 12, ALT 8, alk phos 32, cholesterol 157, LDL 101, HDL 38, serum alcohol less than 10. IMAGING: Chest x-ray demonstrates cardiomegaly with interstitial congestion unchanged. EKG demonstrates normal sinus rhythm, left anterior fascicular block, T-wave inversion in V1 and lead III, flat in aVF, V2, V3. No ST elevations or depressions. Left axis deviation. QTc is 453. ASSESSMENT AND PLAN: Franklyn Shafer is a 61-year-old with complex comorbidities presenting with altered mental status, reported slurred speech, confusion, memory problems, which was concerned by EMS trained aides that he was having a transient ischemic attack. He has no focal neurological deficits here. He does have an evidence of urinary tract infection on UA obtained yesterday and left flank pain. I am going to get ultrasound of his bilateral carotids, last was in 2007, which showed less than 50% stenosis. I am going to get a echocardiogram with bubble study to assess for any PFOs, which on his last previous 4 echoes does not seem to have been done. He does have history of deep venous thrombosis, pulmonary embolism, he is on Xarelto and aspirin 81 mg daily. I am adding on a BNP. He has acutely worse hypoxia at home at 81% on 3 L, where he is intermittently on room air, suspicion for some volume overload. I am giving him Lasix 40 mg right now. Strict Is and Os, daily weights, continue his torsemide 20 mg daily until further labs, he is going to continue on BiPAP 01/11. A strong consideration to get ABG with any signs of mental status changes as he may have developed hypercapnia. For his DVT prophylaxis, we will continue his Xarelto and continue 81 mg aspirin for now. Consideration for neuro consult in the morning. I am starting ceftriaxone 1 g daily. We will follow up urine culture. He can eat a heart-healthy diet. I am going to get an ultrasound of his left kidney versus CT abdomen to asses for any retained stones or evidence of nephrolithiasis versus hydronephrosis. He will be on telemetry. He is a full code. He is being admitted to observation status. Medical surrogate is his brother, J Luis Shafer. [id number]/[facility] #: [id number] [facility] HOSPITALShanta
[2017-08-06] MEDS: oxyCODONE/Acetamin 5/325 MG* TAB PO PRN ×3 (04:21→13:40)
[2017-08-06 05:08] LABS: ABS Basophils 0 10^3/ul (0-0.2); ABS Eosinophils 0.2 10^3/ul (0-0.6); ABS Lymphocytes 1.1 10^3/ul (1.0-4.8); ABS Monocytes 0.5 10^3/ul (0-0.8); ABS Neutrophils 3.4 10^3/ul (1.5-7.7); ABS Nucleated RBC 0 10^3/ul; Eosinophil % 3.3 % (0-6); Hematocrit 40 % (42-52); Hemoglobin 12.3 g/dl (14.0-18.0); Lymphocyte % 21.4 % (25-47); Mean Corpuscular HGB Conc 31 g/dl (31-36); Mean Corpuscular Hemoglobin 24 pg (27-31); Mean Corpuscular Volume 78 fL (80-94); Mean Platelet Volume 8.9 um3 (7.4-10.4); Nucleated Red Blood Cells % 0.1; Platelet Count 175 10^3/ul (150-450); Red Blood Count 5.18 10^6/ul (4.0-5.4); Red Cell Distribution Width 24 % (10.5-15); White Blood Count 5.3 10^3/ul (3.5-10.8)
[2017-08-06 05:19] LABS: EGFR Non-African American 80.6 (>60)
--- NOTE | 2017-08-06 08:04 | RAD ---
CLINICAL HISTORY: Left flank pain COMPARISON: May 04, 2016 TECHNIQUE: Multiple contiguous axial CT scans were obtained of the abdomen and pelvis, without intravenous contrast enhancement. Coronal and sagittal multiplanar reformations are submitted for review. Oral contrast was not administered. FINDINGS: The study is limited by patient body habitus. Evaluation is also limited by the lack of intravenous contrast. Evaluation of the solid organs and vasculature. LUNG BASES: There is a 0.5 cm nodule in the periphery of the left lower lobe. This is stable. LIVER: The liver is diffusely low in attenuation compared to the spleen. There are no focal hepatic parenchymal masses. BILE DUCTS: There is no intrahepatic or extrahepatic biliary dilatation. GALLBLADDER: Multiple gallstones are noted. There is no pericholecystic inflammatory change. PANCREAS: The pancreas is normal, without mass or ductal dilatation. SPLEEN: Normal in size and appearance. UPPER GI TRACT: Evaluation of the gastrointestinal tract is limited by incomplete gastric distention. The upper GI tract is unremarkable. SMALL BOWEL AND MESENTERY: The small bowel is normal in contour, course, and caliber. There is no obstruction or dilatation. COLON: The colon is normal in contour, course, caliber. There is no pericolonic inflammatory change. ADRENALS: There is a 1.7 cm nodule of the right adrenal, measuring 30 heterogeneous. KIDNEYS: There are punctate left renal calyceal stones. There is no appreciable hydronephrosis. BLADDER: The bladder is smooth in contour. PELVIC ORGANS: The pelvic organs are not well evaluated secondary to technique and body habitus. AORTA: There is mild calcific atherosclerotic disease of the abdominal aorta and its branches, without aneurysmal dilatation IVC: Unremarkable LYMPH NODES: There are subcentimeter short axis iliac chain lymph nodes. There are subcentimeter short axis inguinal lymph nodes bilaterally. There is no lymphadenopathy by size criteria. ABDOMINAL WALL: There is moderate fat-containing umbilical hernia. BONES AND SOFT TISSUES: There are mild diffuse degenerative changes. OTHER: None IMPRESSION: 1. LIMITED STUDY. 2. CHOLELITHIASIS. 3. LEFT NEPHROLITHIASIS WITHOUT APPRECIABLE HYDRONEPHROSIS. 4. FATTY INFILTRATION OF THE LIVER. 5. 1.7 CM RIGHT ADRENAL NODULE. IN THE ABSENCE OF A HISTORY OF MALIGNANCY, RECOMMEND CONSIDERATION OF FOLLOW-UP IMAGING WITH 12 MONTH FOLLOW-UP CONTRAST-ENHANCED RENAL PROTOCOL CT OR ADRENAL PROTOCOL MRI.
[2017-08-06] MEDS: Torsemide TAB* 20 MG PO SCH (08:36)
[2017-08-06] MEDS: Ferrous Sulfate TAB* 325 MG PO SCH (08:36)
[2017-08-06] MEDS: Potassium Chlor TAB* 20 MEQ TAB.ER PO SCH (08:36)
[2017-08-06] MEDS: Aspirin EC TAB* 81 MG TAB.EC PO SCH (08:36)
--- NOTE | 2017-08-06 11:22 | ECHO ---
Patient: JOCELYN KHAN [facility] Rec#: [id number] : 1955 Date: 08/06/2017 Age: 61y Height: 178 cm / 70.1 in Weight: 444 kg / 978.6 lbs Sex: M BSA: 4.1 Room#: 434 Admit Date#: 08/05/2017 Type: Inpatient Referring: Chalo Delaney Reading: Carl Acosta MD Domestic Maid: Carrie Cotto RDCS CC: Javier Gilliland MD Transthoracic Echocardiogram Indication: TIA BP: 125/56 HR: 62 Rhythm: Paced Findings History: Morbid obesity, JAIDEN with CPAP, DVT, prior PE, sick sinus syndrome s/p pacer, lymphedema, COPD. This is a LIMITED study to evaluate the IAS with a Bubble Study. Technical Comments: The study is technically difficult. The study is technically limited due to patient body habitus. Completed at 1000. Left Ventricle: The left ventricular chamber size is normal. There is normal left ventricular systolic function. The estimated ejection fraction is 55-60%. TDS and limited and endocardium is not well visualized. Right Ventricle: The right ventricle is moderately dilated. The right ventricular global systolic function is normal. A pacemaker wire is visualized in the right ventricle. Right Atrium: A pacemaker wire is visualized in the right atrium. A patent foramen ovale is not demonstrated by color Doppler. There is evidence of an atrial septal aneurysm. Pericardium: There is no significant pericardial effusion. A pericardial fat pad is visualized. Contrast: Normal saline was used as contrast for the bubble study. Images 3 and 4. Intravenous contrast was used to help determine presence of intracardiac shunting. Conclusions TDS and limited. The left ventricular chamber size is normal. Moderate-severe LVH. The estimated ejection fraction is 55-60%. TDS and limited and endocardium is not well visualized. 2-D imaging was suboptimal for a Bubble Study, unable to accurately comment on the presence of a PFO.
--- NOTE | 2017-08-06 12:48 | PN ---
Subjective Date of Service: 08/06/17 Interval History: Mr. Shafer denies complaint today and reports that he is actually reports feeling quite well. He denies chest pain, SOB, nausea, or abdominal pain. He feels that his mental status is back to baseline and nursing staff agree. Objective Active Medications: Albuterol (Ventolin Hfa Inhaler*) 2 puff INH Q4H PRN Aspirin (Aspirin Ec Tab*) 81 mg PO DAILY [facility] Docusate Sodium (Colace Cap*) 100 mg PO BID PRN Ferrous Sulfate (Ferrous Sulfate Tab*) 325 mg PO DAILY [facility] Ceftriaxone Sodium 1 gm/ (Sodium Chloride) 50 mls @ 200 mls/hr IVPB Q24H [facility] Nitroglycerin (Nitroglycerin Tab 0.4 Mg*) 0.4 mg SL Q5M PRN Oxycodone/Acetaminophen (Percocet 5/325 Tab*) 1 tab PO Q4H PRN Potassium Chloride (Klor Con Er Tab*) 40 meq PO DAILY [facility] Rivaroxaban (Xarelto(*)) 20 mg PO 1800 [facility] Senna (Senokot Tab*) 1 tab PO BID PRN Torsemide (Demadex*) 20 mg PO DAILY [facility] Vital Signs: Temp Pulse Resp BP Pulse Ox 97.7 F 68 17 142/72 97 08/06/17 11:37 08/06/17 11:37 08/06/17 11:37 08/06/17 11:37 08/06/17 11:37 Oxygen Devices in Use Now: Nasal Cannula Appearance: Male lying in bed in NAD Eyes: No Scleral Icterus Ears/Nose/Mouth/Throat: Mucous Membranes Moist Neck: Trachea Midline Respiratory: Symmetrical Chest Expansion and Respiratory Effort, Clear to Auscultation Cardiovascular: NL Sounds; No Murmurs; No JVD, No Edema Abdominal: NL Sounds; No Tenderness; No Distention Lymphatic: No Cervical Adenopathy Extremities: No Edema Skin: No Rash or Ulcers, - - Bilateral calves wrapped Neurological: Alert and Oriented x 3, NL Muscle Strength and Tone Nutrition: Taking PO's Result Diagrams: 08/06/17 04:43 08/06/17 04:43 Additional Lab and Data: Vital Signs: Temp Pulse Resp BP Pulse Ox 97.7 F 68 17 142/72 97 08/06/17 11:37 08/06/17 11:37 08/06/17 11:37 08/06/17 11:37 08/06/17 11:37 Microbiology and Other Data: Microbiology 08/05/17 17:35 Nasal Screen MRSA (PCR)(GORDY) - Final Nasal Mrsa Detected Assess/Plan/Problems-Billing Assessment: Mr. Shafer is a 61 yo male with a PMH of morbid obesity with hypoventilation syndrome, COPD, DVT/PE, frequent UTIs and nephrolithiasis and recent lithotripsies at [facility] in [place] who was admitted on 08/05/17 with an episode of altered mental status, slurred speech and complaint of flank pain (which appears to be semi-chronic). - Patient Problems (1) Altered mental status Comment: - Symptoms suspicious for TIA, no resolved. Could also have been related to transient hypoxia or UTI. - CT brain negative. Echo with bubble study suboptimal but does not show PFO. No significant carotid stenosis on carotid US. MRI pending. - Continue aspirin, on xarelto for hx of DVT/PE. (2) Flank pain Comment: - Urine with trace leuk esterase and 1+ bacteria. - Nephrolithiasis without hydronephrosis on CT abd. - No leukocytosis or fever to suggest pyelonephritis. - Continue ceftriaxone until urine culture resulted. (3) Chronic diastolic heart failure Comment: - No evidence of acute exacerbation. - Continue home torsemide. (4) Atrial fibrillation Comment: - Cont Xarelto.In NSR (5) History of DVT (deep vein thrombosis) Comment: - Continue Xarelto. (6) DVT prophylaxis Comment: - Xarelto. (7) Full code status Comment: Status and Disposition: Switch from OBV to inpatient. Anticipate discharge to home when medically stable.
[2017-08-06] MEDS: Rivaroxaban TAB(*) 20 MG TAB PO SCH (16:34)
[2017-08-06] MEDS: Acetaminophen TAB* 325 MG PO PRN (16:34)
[2017-08-06] MEDS ORDERED: cefTRIAXone(*) 1 GM in NS 0.9% 50 ML* 50 ML IVPB SCH (21:00)
[2017-08-07] MEDS: Acetaminophen TAB* 325 MG PO PRN (03:11)
[2017-08-07 05:43] LABS: ABS Basophils 0 10^3/ul (0-0.2); ABS Eosinophils 0.2 10^3/ul (0-0.6); ABS Lymphocytes 0.8 10^3/ul (1.0-4.8); ABS Monocytes 0.5 10^3/ul (0-0.8); ABS Neutrophils 3.1 10^3/ul (1.5-7.7); ABS Nucleated RBC 0 10^3/ul; EGFR Non-African American 89.2 (>60); Eosinophil % 3.5 % (0-6); Hematocrit 40 % (42-52); Hemoglobin 12.3 g/dl (14.0-18.0); Lymphocyte % 18.3 % (25-47); Mean Corpuscular HGB Conc 31 g/dl (31-36); Mean Corpuscular Hemoglobin 24 pg (27-31); Mean Corpuscular Volume 78 fL (80-94); Nucleated Red Blood Cells % 0.1; Platelet Count 160 10^3/ul (150-450); Red Blood Count 5.11 10^6/ul (4.0-5.4); Red Cell Distribution Width 23 % (10.5-15); White Blood Count 4.6 10^3/ul (3.5-10.8)
[2017-08-07] MEDS: Ferrous Sulfate TAB* 325 MG PO SCH (08:15)
[2017-08-07] MEDS: oxyCODONE/Acetamin 5/325 MG* TAB PO PRN (08:16)
[2017-08-07] MEDS: Aspirin EC TAB* 81 MG TAB.EC PO SCH (08:16)
[2017-08-07] MEDS: Torsemide TAB* 20 MG PO SCH (08:16)
[2017-08-07] MEDS: Potassium Chlor TAB* 20 MEQ TAB.ER PO SCH (08:16)
[2017-08-07 11:44] VITALS: BP 122/66
--- NOTE | 2017-08-07 12:02 | PN ---
Subjective Date of Service: 08/07/17 Interval History: Mr. Shafer reports intermittent left flank pain that has been ongoing since he last had nephrolithiasis with stent placement at [facility]. It had resolved but has now returned over the past three weeks. He denies other complaint including chest pain, SOB, nausea, or abdominal pain. Objective Active Medications: Acetaminophen (Tylenol Tab*) 650 mg PO Q6H PRN Albuterol (Ventolin Hfa Inhaler*) 2 puff INH Q4H PRN Aspirin (Aspirin Ec Tab*) 81 mg PO DAILY [facility] Docusate Sodium (Colace Cap*) 100 mg PO BID PRN Ferrous Sulfate (Ferrous Sulfate Tab*) 325 mg PO DAILY [facility] Ceftriaxone Sodium 1 gm/ (Sodium Chloride) 50 mls @ 200 mls/hr IVPB Q24H [facility] Nitroglycerin (Nitroglycerin Tab 0.4 Mg*) 0.4 mg SL Q5M PRN Oxycodone/Acetaminophen (Percocet 5/325 Tab*) 1 tab PO Q4H PRN Potassium Chloride (Klor Con Er Tab*) 40 meq PO DAILY [facility] Rivaroxaban (Xarelto(*)) 20 mg PO 1800 [facility] Senna (Senokot Tab*) 1 tab PO BID PRN Torsemide (Demadex*) 20 mg PO DAILY [facility] Vital Signs - 8 hr 08/07/17 08/07/17 08/07/17 07:59 08:16 10:15 Temperature 98.1 F Pulse Rate 63 Respiratory 17 20 18 Rate Blood Pressure 132/43 (mmHg) O2 Sat by Pulse 97 Oximetry 08/07/17 11:12 Temperature 97.8 F Pulse Rate 56 Respiratory 17 Rate Blood Pressure 122/66 (mmHg) O2 Sat by Pulse 98 Oximetry Oxygen Devices in Use Now: Nasal Cannula Appearance: Male lying in bed in NAD Eyes: No Scleral Icterus Ears/Nose/Mouth/Throat: Mucous Membranes Moist Neck: Trachea Midline Respiratory: Symmetrical Chest Expansion and Respiratory Effort, Clear to Auscultation Cardiovascular: NL Sounds; No Murmurs; No JVD Abdominal: NL Sounds; No Tenderness; No Distention Skin: No Rash or Ulcers Neurological: Alert and Oriented x 3, NL Muscle Strength and Tone Nutrition: Taking PO's Result Diagrams: 08/07/17 04:54 08/07/17 04:54 Additional Lab and Data: Vital Signs: Temp Pulse Resp BP Pulse Ox 97.7 F 68 17 142/72 97 08/06/17 11:37 08/06/17 11:37 08/06/17 11:37 08/06/17 11:37 08/06/17 11:37 Microbiology and Other Data: Microbiology 08/05/17 17:35 Nasal Screen MRSA (PCR)(GORDY) - Final Nasal Mrsa Detected Assess/Plan/Problems-Billing Assessment: Mr. Shafer is a 61 yo male with a PMH of morbid obesity with hypoventilation syndrome, COPD, DVT/PE, frequent UTIs and nephrolithiasis and recent lithotripsies at [facility] in [place] who was admitted on 08/05/17 with an episode of altered mental status, slurred speech and complaint of flank pain (which appears to be semi-chronic). - Patient Problems (1) Altered mental status Comment: - Symptoms suspicious for TIA, no resolved. Could also have been related to transient hypoxia or UTI. - CT brain negative. Echo with bubble study suboptimal but does not show PFO. No significant carotid stenosis on carotid US. Cannot have MRI due to size. Already anticoagulated and on aspirin, risks of adding plavix likely outweigh benefits especially given that it is not a confirmed TIA. - Continue aspirin, on xarelto for hx of DVT/PE. (2) Flank pain Comment: - Urine with trace leuk esterase and 1+ bacteria. - Nephrolithiasis without hydronephrosis on CT abd. - No leukocytosis or fever to suggest pyelonephritis. - Urine culture contaminated. Resent. Has history of frequent UTIs with multiple different pathogens. Plan to treat with a short course of cipro given history. - Needs follow up with [facility] given history of stenting there. (3) Chronic diastolic heart failure Comment: - No evidence of acute exacerbation. - Continue home torsemide. (4) Atrial fibrillation Comment: - Cont Xarelto.In NSR (5) History of DVT (deep vein thrombosis) Comment: - Continue Xarelto. (6) DVT prophylaxis Comment: - Xarelto. (7) Full code status Comment: Status and Disposition: Discharge to home.
[2017-08-07 12:05] LABS: Urine Appearance Clear; Urine Blood 1+ (Negative); Urine Color Straw; Urine Ketones Negative (Negative); Urine Protein Negative (Negative); Urine Specific Gravity 1.006 (1.010-1.030); Urine Urobilinogen Negative (Negative)
--- NOTE | 2017-08-07 21:14 | DS ---
[facility] MEDICINE DISCHARGE SUMMARY: DATE OF ADMISSION: 08/05/17 DATE OF DISCHARGE: 08/07/17 ATTENDING PHYSICIAN: Dr. Steven Velasquez * (dictation provided by Marycarmen Barber NP ). PRIMARY DIAGNOSES: 1. Episode of altered mental status with slurred speech, now resolved. 2. Suspected urinary tract infection. SECONDARY DIAGNOSES: 1. Morbid obesity. 2. History of DVT, on Xarelto. 3. Nephrolithiasis, status post stent placement at [facility]. 4. Chronic obstructive pulmonary disease with chronic hypoxic respiratory failure. 5. Obstructive sleep apnea. 6. Paroxysmal atrial fibrillation. 7. Diastolic congestive heart failure. 8. Sick sinus syndrome. 9. Status post permanent pacemaker in 2007. 10. Frequent urinary tract infections. 11. Bilateral lymphedema. MEDICATIONS AT THE TIME OF DISCHARGE: 1. Bactrim 1 tab p.o. b.i.d. x10 days. 2. Aspirin 81 mg p.o. daily. 3. Prednisone 50 mg p.o. p.r.n. for shortness of breath with COPD exacerbation. 4. Benadryl 25 mg p.o. q.6 hours p.r.n. 5. Torsemide 20 mg p.o. q.p.m. 6. Senna 1 tab p.o. q.12 hours p.r.n. 7. Xarelto 20 mg p.o. q.p.m. 8. Potassium chloride 40 mEq p.o. q.p.m. Hold potassium while on Bactrim therapy. 9. Nitroglycerin 0.4 mg sublingually q.5 minutes p.r.n. 10. Ferrous sulfate 325 mg p.o. q.p.m. 11. Docusate 100 mg p.o. b.i.d. p.r.n. 12. Albuterol 2 puffs inhaled q.4 hours p.r.n. ALLERGIES: APPLE, BEE VENOM, PROTEIN and WALNUT. HOSPITAL COURSE: Mr. Shafer is a 61-year-old male with past medical history as outlined above, who presented to the hospital on 08/07/17 with concern for an episode of altered mental status with slurred speech. Please see dictated H and P from Dr. Chalo Delaney for complete details. In brief, the patient's health aides noted that he was slurring his words, confused, and having memory problems. They were very concerned for a transient ischemic attack. He reported became less confused as he was transferred by ambulance. There was concern that he was initially hypoxic at 81% on 3 L. He does wear oxygen at home 3 to 4 L as well as BiPAP at night. It was also noted recently that Mr. Shafer had a foul smelling urine outpatient and had a urinalysis, which showed 1 + blood, no nitrite, 1+ leuk esterase, 3+ wbc's and no bacteria. The culture was ultimately growing Proteus by the time of admission and the sensitives were pending. Mr. Shafer is admitted to the hospital for his episode of altered mental status. He was worked up for transient ischemic attack. CT brain showed no acute abnormality. He was unable to go for MRI due to his body habitus. He did have a transthoracic echocardiogram, which showed [id number] LVH, estimated ejection fraction is 55% to 60%, unable to accurately comment on the presence of a PFO due to body habitus. He had a carotid Doppler study, which showed no sonographic evidence of hemodynamically significant stenosis. In terms of the TIA, this seems less likely in the setting of urinary tract infection and chronic intermittent hypoxia as a causation. At this time, I think that the risks of starting Plavix in addition to his Xarelto and aspirin strongly outweigh the benefits. The patient's urine culture did grew Proteus, which was sensitive to ceftriaxone , which the patient was on while inpatient and also sensitive to Bactrim, which will be discharged to home on. Mr. Shafer has not had any hypoxia while here admitted. He had a chest x-ray, which showed no acute process and is continued on his home oxygen as well as BiPAP. Mr. Shafer is continued to complain of left-sided flank pain during this admission. He states that this has been an ongoing problem since he had stent placement in for nephrolithiasis at [facility]. He had abdomen and pelvis CT, which showed some scattered nephrolithiasis, but no evidence of hydronephrosis. I think the patient would be best served by following closely at [facility] for ongoing management of intermittent nephrolithiasis , but at this time he shows no evidence of obstruction. Mr. Shafer is medically stable for discharge to home to follow up with Dr. Lilly regarding ongoing chronic medical issues including urinary tract infections and left-sided flank pain. TIME SPENT: Approximately 60 minutes were spent on the discharge of this patient, more than half the time spent with the patient at the bedside reviewing the events leading up to this hospitalization, performing the physical examination, and reviewing my plan of care. MARYCARMEN BARBER NP [id number]/[facility] #: [id number] KIET
== END 2017-08-07 15:27 | disposition home or self-care (01) | DRG 463 ==
LOC: ED 12:50 → MEDTELE 17:17 → OBSVTOIN 08-06 12:00
PROVIDERS: ADMIT Internal Medicine; ATTEND Internal Medicine
PROC: 5A09357 Assistance with Respiratory Ventilation, Less than 24 Consecutive Hours, Continuous Positive Airway Pressure (ICD-10-PCS; principal; 2017-08-05)
DX: N39.0 Urinary tract infection, site not specified (principal); Z68.44 Body mass index [BMI] 60.0-69.9, adult; J96.11 Chronic respiratory failure with hypoxia; I50.32 Chronic diastolic (congestive) heart failure; E66.2 Morbid (severe) obesity with alveolar hypoventilation; Q21.1 Atrial septal defect; J44.9 Chronic obstructive pulmonary disease, unspecified; I48.0 Paroxysmal atrial fibrillation; I89.0 Lymphedema, not elsewhere classified; I25.10 Atherosclerotic heart disease of native coronary artery without angina pectoris; E78.00 Pure hypercholesterolemia, unspecified; I11.0 Hypertensive heart disease with heart failure; I73.9 Peripheral vascular disease, unspecified; M19.90 Unspecified osteoarthritis, unspecified site; F32.9 Major depressive disorder, single episode, unspecified; G62.9 Polyneuropathy, unspecified; R47.81 Slurred speech; F11.90 Opioid use, unspecified, uncomplicated; I34.0 Nonrheumatic mitral (valve) insufficiency; I44.4 Left anterior fascicular block; N20.0 Calculus of kidney; Z86.711 Personal history of pulmonary embolism; Z79.82 Long term (current) use of aspirin; Z79.01 Long term (current) use of anticoagulants; Z91.030 Bee allergy status; Z91.018 Allergy to other foods; Z87.442 Personal history of urinary calculi; Z88.8 Allergy status to other drugs, medicaments and biological substances; Z86.718 Personal history of other venous thrombosis and embolism; Z80.1 Family history of malignant neoplasm of trachea, bronchus and lung; Z81.2 Family history of tobacco abuse and dependence; Z82.3 Family history of stroke; Z82.0 Family history of epilepsy and other diseases of the nervous system; Z72.89 Other problems related to lifestyle; Z99.81 Dependence on supplemental oxygen; Z87.01 Personal history of pneumonia (recurrent); Z89.432 Acquired absence of left foot; Z89.431 Acquired absence of right foot; Z83.3 Family history of diabetes mellitus; Z95.810 Presence of automatic (implantable) cardiac defibrillator; Z86.14 Personal history of Methicillin resistant Staphylococcus aureus infection
CPT/HCPCS: 36415; 70450; 71046; 74176; 80048; 80053; 80061; 80307; 80320; 81003; 81015; 83605; 83880; 84484; 85025; 85610; 85730; 87077; 87086; 87186; 87641; 93005; 93306; 93880; 94660; 99284; A9270-GY; G0378; G0480; J0696; J1940

== ENCOUNTER 2017-10-09 02:36 | Inpatient (IN) | payer MEDICAID ==
--- NOTE | 2017-10-09 02:45 | ED ---
HPI Chest Pain - HPI Summary HPI Summary: The patient is a 61 y/o morbidly obese male [facility] c/o crushing chest pains rated 8/10 and SOB worsening at 01:00. He says he has been feeling under the weather and complains of lethargy, light- headedness, and difficulty breathing for the last couple of days. EMS administered NTG Sl, and 325mg ASA en route. This is scribe Marii Samuels documenting for attending Dr. Stephen MD. - History of Current Complaint Time Seen by Provider: 10/09/17 02:42 Hx Obtained From: Patient, EMS Onset/Duration: Started Days Ago, Worse Since - 01:00 tonight Timing: Lasting Days Initial Severity: Worse Since: - 01:00am tonight Current Severity: Severe Pain Intensity: 8 Pain Scale Used: 0-10 Numeric Chest Pain Location: Mid Sternal Character: Crushing Alleviating Factor(s): EMS Tx Associated Signs and Symptoms: Positive: Chest Pain, Shortness of Breath, Lightheadedness, Other: - Positive: Lethargy, dyspnea - Additional Pertinent History Primary Care Physician: DIPESH - Allergy/Home Medications Allergies/Adverse Reactions: Allergies Allergy/AdvReac Type Severity Reaction Status Date / Time apple Allergy Unknown Verified 08/05/17 22:27 Reaction Details bee venom protein (honey bee) Allergy Anaphylatic Verified 08/05/17 22:27 Shock walnut Allergy Anaphylatic Verified 08/05/17 22:27 Shock Home Medications: Home Medications Sulfamethox/Trimethoprim DS* [Bactrim DS 800/160 TAB*] 1 tab PO BID 10/09/17 [ History Confirmed 10/09/17] PMH/Surg Hx/FS Hx/Imm Hx Previously Healthy: No Endocrine/Hematology History: Reports: Hx Anticoagulant Therapy - xarelto, Hx Diabetes, Hx Anemia Denies: Hx Systemic Lupus Erythematosus Cardiovascular History: Reports: Hx Congestive Heart Failure, Hx Coronary Artery Disease, Hx Deep Vein Thrombosis, Hx Embolism - pulmonary embolism, takes xarelto, Hx Hypercholesterolemia, Hx Hypertension, Hx Pacemaker/ICD, Hx Peripheral Vascular Disease - SSS, Hx Syncope, Other Cardiovascular Problems/ Disorders - cardiac cath Respiratory History: Reports: Hx Chronic Obstructive Pulmonary Disease (COPD) - on 2L home O2, Hx Pneumonia, Hx Pulmonary Embolism, Hx Sleep Apnea, Other Respiratory Problems/Disorders - SLEEP APNEA, ON 2 L O2 @ NIGHT, obesity hypoventilation GI History: Reports: Other GI Disorders - umbilical hernia, stool softener at home, constipation History: Reports: Hx Acute Renal Failure, Hx Kidney Stones, Hx Renal Disease - 3 episodes of renal failure Denies: Hx Dialysis Musculoskeletal History: Reports: Hx Arthritis, Hx Back Problems, Other Musculoskeletal History - bilateral metatarsal amputation Denies: Hx Rheumatoid Arthritis Sensory History: Reports: Hx Contacts or Glasses - not with pt, Other Sensory Impairments - Neuropathy in feet Denies: Hx Hearing Aid Opthamlomology History: Reports: Hx Contacts or Glasses - not with pt, Other Sensory Impairments - Neuropathy in feet Neurological History: Reports: Hx Headaches, Other Neuro Impairments/Disorders - frequent syncope, pt states possible stroke in past Psychiatric History: Reports: Hx Depression Denies: Hx of Violent Episodes Against Others - Cancer History Hx Chemotherapy: No - Surgical History Surgery Procedure, Year, and Place: Bilateral metatarsal amputations Hx Anesthesia Reactions: No - Immunization History Date of Tetanus Vaccine: PT STATES UNSURE Date of Influenza Vaccine: NONE Infectious Disease History: Reports: Hx of Known/Suspected MRSA - Family History Known Family History: Positive: Diabetes Negative: Other - denies FHx of depression - Social History Occupation: Disabled Lives: Alone Alcohol Use: None Hx Substance Use: Yes - Narcotics Substance Use Type: Reports: Other Substance Use Comment - Amount & Last Used: chronic narcotic use Hx Tobacco Use: No Smoking Status (MU): Never Smoked Tobacco Have You Smoked in the Last Year: No Review of Systems Constitutional: Other - Morbidly obese Positive: Fatigue Positive: Chest Pain Positive: Shortness Of Breath, Other - dyspnea Neurological: Other - Positive: light-headedness All Other Systems Reviewed And Are Negative: Yes Physical Exam - Summary Physical Exam Summary: Appearance: morbidly obese Skin: Warm, dry, no obvious rash Eyes: sclera anicteric, no conjunctival pallor ENT: mucous membranes moist, pharynx appears normal Neck: Supple, nontender Respiratory: Respiratory distress, Distant breath sounds Cardiovascular: Normal S1, S2. No murmurs. Normal distal pulses in tibial and radial bilaterally. Abdomen: Soft, nontender, normal active bowel sounds present Musculoskeletal: Normal, Strength/ROM Intact Neurological: A&Ox3, awake and alert, mentation is normal, speech is fluent and appropriate Psychiatric: affect is normal, does not appear anxious or depressed Triage Information Reviewed: Yes Vital Signs Reviewed: Yes Diagnostics - Laboratory Result Diagrams: 10/15/17 05:55 10/15/17 05:55 Lab Statement: Any lab studies that have been ordered have been reviewed, and results considered in the medical decision making process. - Radiology CXR Xray Interpretation: Positive (See Comments) - Underexposed poor inspiratory effort, No gross infiltrates,No definite pulmonary edema. Radiology Interpretation Completed By: ED Physician - CT CTA Chest CT Interpretation: Positive (See Comments) CT Interpretation Completed By: Radiologist - Trace bilateral pleural effusions which are new since 04/07/2015 with mild scattered atelectasis, greatest in the lower lobes and is also new. ED physician reviewed this radiology report and agrees with it. - EKG 02:43 Cardiac Rate: NL EKG Rhythm: Sinus Rhythm - NSR at 88 BPM, P waves, QRS complex, and T waves are within normal limits, T waves and intervals are normal, no ischemic changes. This is a normal EKG ST Segment: Normal Chest Pain Course/Dx - Diagnoses Provider Diagnoses: Pulmonary congestion, Morbid obesity with BMI of 70 and over, adult Provider Diagnoses: (Ruled Out): Pulmonary embolism - Provider Notifications Discussed Care Of Patient With: Maurice Melvin - hospitalist Time Discussed With Above Provider: 04:20 Instructed by Provider To: Admit As Inpatient - Dr. Melvin recommended checking radiology if they have a suitable CT Angiography machine. Discharge - Sign-Out/Discharge Documenting (check all that apply): Patient Departure - Discharge Plan Condition: Guarded Disposition: ADMITTED TO [facility] - Billing Disposition and Condition Condition: GUARDED Disposition: Admitted to [facility]
[2017-10-09 03:17] LABS: ABS Basophils 0 10^3/ul (0-0.2); ABS Eosinophils 0.1 10^3/ul (0-0.6); ABS Lymphocytes 0.7 10^3/ul (1.0-4.8); ABS Monocytes 0.6 10^3/ul (0-0.8); ABS Neutrophils 5.3 10^3/ul (1.5-7.7); ABS Nucleated RBC 0 10^3/ul; Eosinophil % 1.1 % (0-6); Hematocrit 43 % (42-52); Hemoglobin 13.5 g/dl (14.0-18.0); Lymphocyte % 10.2 % (25-47); Mean Corpuscular HGB Conc 31 g/dl (31-36); Mean Corpuscular Hemoglobin 26 pg (27-31); Mean Corpuscular Volume 82 fL (80-94); Mean Platelet Volume 11.1 um3 (7.4-10.4); Nucleated Red Blood Cells % 0; Platelet Count 157 10^3/ul (150-450); Red Cell Distribution Width 18 % (10.5-15); White Blood Count 6.7 10^3/ul (3.5-10.8)
[2017-10-09] MEDS ORDERED: Nitroglycerin 2% OINT* 1 GM PAK TOPICAL ONE (03:21)
[2017-10-09] MEDS ORDERED: Furosemide IV* 10 MG/ML VIAL (40 MG) IV ONE (03:21)
[2017-10-09 03:27] LABS: EGFR Non-African American 90.4 (>60)
[2017-10-09] MEDS ORDERED: Albuterol 2.5 MG/3 ML NEB.SOL* (0.083%) INH ONE (03:33)
--- NOTE | 2017-10-09 04:41 | HP ---
H&P (Free Text) History and Physical: PCP: Nuzhat Gilliland MD Date/Time: 10/09/2017 0440 CC: SOB, chest pain HPI: Mr Shafer is a severely super morbidly obese 61M very poor historian HX obesity hypoventilation syndrome, chronic hypoxic/hypercarbic respiratory failure on 2L NC continuously & BiPap nightly with which he reports compliance, DVT/PE, AFIB, chronic diastolic HF, PAOD who reports sudden onset ~3 days ago of "severe" SOB which he "didn't think too much of" and didn't contact his PCP. Tonight this severe SOB became "much worse" and was accompanied by L para- sternal chest pressure, but no N/V, sweats, palpitations, or light headedness. It was non-exertional, but radiated somewhat into the L neck. He denies cough, congestion, F/C, diarrhea, abdominal pain, or other issues. CXR is very limited 2nd body habitus, but no definitive infiltrates or acute process noted. ECG is benign. Initial troponin is negative. He was brought in by EMS on BiPap. VBG is pH 7.2, pCO2 99, pO2 97, HCO3 35.4 on BiPap. PMedHx chronic hypoxic/hypercapnic respiratory failure on 2L NC continuously & BiPaP nightly obesity hypoventilation syndrome HX DVT & PE AFIB/AFLUT chronic diastolic HF chronic BLE venous stasis PAOD s/p B metatarsal amputations urolithiasis requiring surgical extraction PSurgHx surgical ureterolith extraction pacer placement B metatarsal amputations SocHx: no tobacco, alcohol, or recreational drug HX; single, lives alone in an apartment; full code status, states he would be willing to live with a tracheostomy on a chronic ventilator if necessary FamHx: positive for early onset CAD, lung CA, & breast CA ROS: as above, otherwise reviewed and all were negative vitals: Vital Signs Temp 37.7 C 10/09/17 02:45 Pulse 63 10/09/17 04:20 Resp 19 10/09/17 04:20 BP 150/75 10/09/17 04:20 Pulse Ox 89 10/09/17 04:20 Intake & Output 10/08/17 10/08/17 10/09/17 11:59 23:59 11:59 Output Total 1350 Balance -1350 Weight 220.264 kg Output: Urine 1350 Constitutional: NAD, normally developed, severe super morbid obesity HEENM: atraumatic; sclera/conjunctiva: anicteric/mildly injected OU; hearing: clinically intact; oropharynx: clear, mucosa moist Neck: soft tissue: non-tender; thyroid: non-tender Pulmonary: BiPap in place, severely diminished suspect 2nd body habitus, no accessory muscle use CV: distant heart sounds, RR/RR, 1/6 systolic murmur, no carotid bruit, no jugular venous distention identifiable, trace B PT, 2+ BLE edema Abdominal: soft, non-distended, non-tender, no rebound/guarding/rigidity, normoactive bowel sounds, no hepatosplenomegaly or masses, no costovertebral angle tenderness Musculoskeletal: general: B metatarsal amputations Integumental: ichthyosis BLE Psychiatric orientation: AA&O to PPS affect: calm mood: cooperative eye contact: fair content: seemingly reliable responses: timely insight: exceedingly poor Testing: Lab Results 10/09/17 10/09/17 10/09/17 Range/Units 02:59 02:59 02:59 WBC 6.7 (3.5-10.8) 10^3/ul RBC 5.20 (4.00-5.40) 10^6/ul Hgb 13.5 L (14.0-18.0) g/dl Hct 43 (42-52) % MCV 82 (80-94) fL MCH 26 L (27-31) pg MCHC 31 (31-36) g/dl RDW 18 H (10.5-15) % Plt Count 157 (150-450) 10^3/ul MPV 11.1 H (7.4-10.4) um3 Neut % (Auto) 79.5 (38-83) % Lymph % (Auto) 10.2 L (25-47) % Carroll % (Auto) 8.5 H (0-7) % Eos % (Auto) 1.1 (0-6) % Baso % (Auto) 0.7 (0-2) % Absolute Neuts (auto) 5.3 (1.5-7.7) 10^3/ul Absolute Lymphs (auto) 0.7 L (1.0-4.8) 10^3/ul Absolute Monos (auto) 0.6 (0-0.8) 10^3/ul Absolute Eos (auto) 0.1 (0-0.6) 10^3/ul Absolute Basos (auto) 0 (0-0.2) 10^3/ul Absolute Nucleated RBC 0 10^3/ul Nucleated RBC % 0 D-Dimer, Quantitative (Less Than 230) ng/mL VBG pH (7.33-7.43) VBG pCO2 (41-51) mmHg VBG pO2 (35-45) mmHg VBG HCO3 (24-28) mmol/L VBG O2 Saturation (70-80) % VBG Base Excess (0-4) Sodium 140 (135-145) mmol/L Potassium 4.3 (3.5-5.0) mmol/L Chloride 98 L (101-111) mmol/L Carbon Dioxide 39 H (22-32) mmol/L Anion Gap 3 (2-11) mmol/L BUN 24 (6-24) mg/dL Creatinine 0.86 (0.67-1.17) mg/dL Est GFR ( Amer) 109.4 (>60) Est GFR (Non-Af Amer) 90.4 (>60) BUN/Creatinine Ratio 27.9 H (8-20) Glucose 138 H (70-100) mg/dL Lactic Acid 1.0 (0.5-2.0) mmol/L Calcium 10.1 (8.6-10.3) mg/dL Total Bilirubin 1.10 H (0.2-1.0) mg/dL AST 15 (13-39) U/L ALT 13 (7-52) U/L Alkaline Phosphatase 31 L (34-104) U/L Troponin I 0.02 (<0.04) ng/mL B-Natriuretic Peptide ( - 100) pg/mL Total Protein 7.3 (6.4-8.9) g/dL Albumin 3.5 (3.2-5.2) g/dL Globulin 3.8 (2-4) g/dL Albumin/Globulin Ratio 0.9 L (1-3) 10/09/17 10/09/17 10/09/17 Range/Units 02:59 02:59 03:55 WBC (3.5-10.8) 10^3/ul RBC (4.00-5.40) 10^6/ul Hgb (14.0-18.0) g/dl Hct (42-52) % MCV (80-94) fL MCH (27-31) pg MCHC (31-36) g/dl RDW (10.5-15) % Plt Count (150-450) 10^3/ul MPV (7.4-10.4) um3 Neut % (Auto) (38-83) % Lymph % (Auto) (25-47) % Carroll % (Auto) (0-7) % Eos % (Auto) (0-6) % Baso % (Auto) (0-2) % Absolute Neuts (auto) (1.5-7.7) 10^3/ul Absolute Lymphs (auto) (1.0-4.8) 10^3/ul Absolute Monos (auto) (0-0.8) 10^3/ul Absolute Eos (auto) (0-0.6) 10^3/ul Absolute Basos (auto) (0-0.2) 10^3/ul Absolute Nucleated RBC 10^3/ul Nucleated RBC % D-Dimer, Quantitative 200 (Less Than 230) ng/mL VBG pH 7.27 L (7.33-7.43) VBG pCO2 99 H (41-51) mmHg VBG pO2 97 H (35-45) mmHg VBG HCO3 35.4 H (24-28) mmol/L VBG O2 Saturation 98.2 H (70-80) % VBG Base Excess 13.6 H (0-4) Sodium (135-145) mmol/L Potassium (3.5-5.0) mmol/L Chloride (101-111) mmol/L Carbon Dioxide (22-32) mmol/L Anion Gap (2-11) mmol/L BUN (6-24) mg/dL Creatinine (0.67-1.17) mg/dL Est GFR ( Amer) (>60) Est GFR (Non-Af Amer) (>60) BUN/Creatinine Ratio (8-20) Glucose (70-100) mg/dL Lactic Acid (0.5-2.0) mmol/L Calcium (8.6-10.3) mg/dL Total Bilirubin (0.2-1.0) mg/dL AST (13-39) U/L ALT (7-52) U/L Alkaline Phosphatase (34-104) U/L Troponin I (<0.04) ng/mL B-Natriuretic Peptide 140 H ( - 100) pg/mL Total Protein (6.4-8.9) g/dL Albumin (3.2-5.2) g/dL Globulin (2-4) g/dL Albumin/Globulin Ratio (1-3) ECG, personally reviewed: NSR rate 88, no ischemia CXR, personally reviewed: severely limited 2nd body habitus, cannot entirely r/ o pneumonia or pulmonary edema CTA chest, personally reviewed: IMPRESSION: 1. Limited examination due to patient size. 2. No central pulmonary emboli are identified. 3. Basilar infiltrate or atelectasis. Scattered groundglass opacities, unchanged 4. Small bilateral pleural effusions Impression: 61M HX severe super morbid obesity, obesity hypoventilation syndrome , chronic hypoxic/hypercarbic respiratory failure on 2L NC continuously & BiPap nightly with which he reports compliance, DVT/PE, pAFIB, chronic diastolic HF, PAOD presenting subacutely with sudden onset of SOB 3 days ago worsening tonight with addition of chest pain found to be in acute on chronic hypoxic/ hypercapneic respiratory failure felt to be 2nd acute on chronic diastolic HF DIAGNOSIS & PLAN Neurology no significant encephalopathy appreciated Cardiovascular acute on chronic diastolic HF : new small B pleural effusions : furosemide diuresis : strict I&Os : daily weights paroxysmal AFIB/AFLUT : currently NSR : continue rivaroxaban Pulmonary chronic hypoxic/hypercapnic respiratory failure obesity hypoventilation syndrome Infectious disease no objective or subjective indication of infectious burden Gastrointestinal IV pantoprazole for GI prophylaxis Renal temperature guzmán to gravity : needs accurate renal function & fluid status monitoring : prevent skin breakdown Endocrine normal TSH 06/2017 Hematology HX DVT & PE : continue rivaroxaban Musculoskeletal generalized deconditioning : consider PT evaluation once medically stable Admission Rational: Inpatient as without the above interventions the risk of impending adverse outcome is unacceptably high; inappropriate for the outpatient setting DVTp: rivaroxaban Code Status: full, willing to accept tracheostomy & chronic vent if necessary HCP: reinaerJ Luis Critical Care time: 60minutes with >50% spent at the bedside obtaining a history , performing the examination, advising of diagnosis & treatment options along with risks/benefits/reasoning; remainder spent discussing with ER MD, reviewing labs and radiology exams
[2017-10-09] MEDS ORDERED: Iodixanol* (CONTRAST) 320 MG/ML 100 ML SDV IV ONE (05:13)
[2017-10-09] MEDS ORDERED: Ondansetron ODT TAB* 4 MG PO PRN (05:29)
[2017-10-09] MEDS ORDERED: Omeprazole CAP* 20 MG PO SCH (06:00)
--- NOTE | 2017-10-09 07:20 | RAD ---
INDICATION: Chest pain. Short of breath. Evaluate for pulmonary embolus. COMPARISON: Chest x-ray October 09, 2017; CTA chest April 07, 2015 TECHNIQUE: Axial source images were obtained from the thoracic inlet to the hemidiaphragms following administration of [address] angiographic technique was utilized. Coronal and sagittal reconstructed images were acquired. CHEST FINDINGS: Neck/thyroid: The visualized neck to include the thyroid appear normal. There is artifact from patient's cardiac pacemaker. Chest wall: There are no acute abnormalities of the bony thorax or chest wall. There is no supraclavicular, infraclavicular, or axillary lymphadenopathy. Lungs : There are basilar infiltrates or atelectasis. There is patchy groundglass change similar to the prior exam. Cardiomediastinal structures: There is no CT evidence of acute central pulmonary emboli. There is dilatation of the pulmonary arterial trunk which measures up to 6 cm, unchanged. There are inherent limitations due to patient size (recorded weight 485 pounds) and breathing motion artifact The heart is normal in size. There is no pericardial effusion. There is no evidence of aortic aneurysm or dissection. There is no mediastinal or hilar adenopathy. The esophagus appears normal. Pleura : Small bilateral pleural effusions. Other: None. IMPRESSION: 1. Limited examination due to patient size. 2. No central pulmonary emboli are identified. 3. Basilar infiltrate or atelectasis. Scattered groundglass opacities, unchanged 4. Small bilateral pleural effusions
--- NOTE | 2017-10-09 07:26 | RAD ---
INDICATION: Short of breath COMPARISON: Chest x-ray September 02, 2017 TECHNIQUE: An AP supine portable view obtained at 0250 hours is submitted. FINDINGS: Bones/Soft Tissues: There are no acute bony findings. There is a left-sided cardiac pacemaker Cardiomediastinal: The correct silhouette is enlarged. Lungs: Patchy interstitial and alveolar changes suggest vascular congestion. Pleura: No significant effusions. Other: None IMPRESSION: ENLARGED CARDIAC SILHOUETTE WITH SUSPECTED MILD VASCULAR CONGESTION R1
[2017-10-09] MEDS: Docusate CAP* 100 MG PO SCH ×2 (08:38→22:15)
[2017-10-09] MEDS: Furosemide IV* 10 MG/ML 10 ML VIAL (100 MG) IV SCH ×2 (09:56→13:57)
[2017-10-09] MEDS ORDERED: Albuterol/Ipratropium NEB.SOL* Albuterol 2.5 MG/Ipratropium 0.5 MG 3 ML INH STA (09:58)
[2017-10-09] MEDS ORDERED: Albuterol 2.5 MG/3 ML NEB.SOL* (0.083%) INH PRN (09:59)
[2017-10-09] MEDS ORDERED: methylPREDNISolone SOD 40 MG* 1 ML VIAL IV SCH (10:00)
[2017-10-09] MEDS ORDERED: Albuterol/Ipratropium NEB.SOL* Albuterol 2.5 MG/Ipratropium 0.5 MG 3 ML ONE (10:21)
[2017-10-09] MEDS ORDERED: Albuterol/Ipratropium NEB.SOL* Albuterol 2.5 MG/Ipratropium 0.5 MG 3 ML INH SCH (12:00)
[2017-10-09] MEDS ORDERED: Albuterol/Ipratropium NEB.SOL* Albuterol 2.5 MG/Ipratropium 0.5 MG 3 ML INH PRN (14:56)
[2017-10-09] MEDS: Acetaminophen TAB* 325 MG PO PRN ×2 (15:18→22:15)
--- NOTE | 2017-10-09 15:52 | PN ---
Progress Note - Progress Note Date of Service: 10/09/17 Note: Morbidly obese male with multiple admissions here for hypercapnic respiratory failure and today admitted for same. No evidence of infection, and the principal Rx is diuresis. Patient currently on high-flow nasal O2 (vapotherm) and tolerating it. Is alert, oriented, and breathing comfortably.
[2017-10-09] MEDS ORDERED: Heparin VIAL(*) 5000 UNITS/ML VIAL (FIVE THOUSAND) SUBCUT SCH (16:00)
[2017-10-09] MEDS ORDERED: methylPREDNISolone 125 MG* 2 ML VIAL IV SCH (16:00)
--- NOTE | 2017-10-09 16:02 | PN ---
Subjective Date of Service: 10/09/17 Interval History: Pt seen and examined. Meds and labs reviewed ROS: Unable to obtain a reliable ROS given pt although arousable, prefers to go back to sleep PHYSICAL EXAM: GEN APPEARANCE: Pt was asleep, but arousable, on BiPAP, morbidly obese HEENT: NC/AT, PERRLA, moist oral mucosa, (-) throat erythema NECK: Soft, supple, (-) cervical LAD, (-)JVD HEART: S1S2 WNL, RRR, No MRG CHEST: CTA, BL, GAE, No W/R/R ABD: Soft, ND/NT, NABS 4x Q EXT: No C/C/E SKIN: Warm to touch PSYCH: No active psychosis, hallucinations, depression, SI/HI Objective Active Medications: Acetaminophen (Tylenol Tab*) 650 mg PO Q6H PRN PRN Reason: FEVER/PAIN Last Admin: 10/09/17 15:18 Dose: 650 mg Albuterol (Ventolin 2.5 Mg/3 Ml Neb.Brandy*) 2.5 mg INH Q2H PRN PRN Reason: SOB/WHEEZING Albuterol/Ipratropium (Duoneb (Albuterol 2.5 Mg/Ipratropium 0.5 Mg)) 1 neb INH Q4H PRN PRN Reason: SOB/WHEEZING Docusate Sodium (Colace Cap*) 200 mg PO BID [facility] Last Admin: 10/09/17 08:38 Dose: Not Given Famotidine (Pepcid Tab*) 20 mg PO DAILY [facility] Furosemide (Lasix Iv*) 60 mg IV 0800,1200 [facility] Last Admin: 10/09/17 13:57 Dose: 60 mg Melatonin (Melatonin) 3 mg PO BEDTIME PRN; Protocol PRN Reason: Sleep Methylprednisolone Sodium Succinate (Solu-Medrol 40 Mg) 60 mg IV Q8H [facility] Ondansetron HCl (Zofran Odt Tab*) 4 mg PO Q6H PRN PRN Reason: n/v Rivaroxaban (Xarelto(*)) 20 mg PO DAILY [facility] Vital Signs - 8 hr 10/09/17 10/09/17 10/09/17 08:00 08:15 08:30 Temperature 98.0 F Pulse Rate 61 60 58 Respiratory 24 21 22 Rate Blood Pressure 129/76 133/72 154/76 (mmHg) O2 Sat by Pulse 95 94 94 Oximetry 10/09/17 10/09/17 10/09/17 08:45 09:00 09:15 Temperature Pulse Rate 59 61 65 Respiratory 22 23 20 Rate Blood Pressure 124/70 132/69 144/65 (mmHg) O2 Sat by Pulse 94 96 94 Oximetry 10/09/17 10/09/17 10/09/17 09:30 09:46 10:00 Temperature 97.9 F 98.4 F Pulse Rate 66 77 60 Respiratory 23 18 Rate Blood Pressure 132/67 106/82 125/62 (mmHg) O2 Sat by Pulse 95 93 92 Oximetry 10/09/17 10/09/17 10/09/17 10:15 10:30 10:45 Temperature 98.2 F 98.4 F 98.4 F Pulse Rate 61 63 62 Respiratory 18 24 18 Rate Blood Pressure 137/70 104/92 132/68 (mmHg) O2 Sat by Pulse 91 93 93 Oximetry 10/09/17 10/09/17 10/09/17 11:00 11:15 11:59 Temperature 98.4 F 98.4 F Pulse Rate 63 61 Respiratory 24 22 17 Rate Blood Pressure 132/73 136/73 (mmHg) O2 Sat by Pulse 94 94 Oximetry 10/09/17 10/09/17 10/09/17 12:00 12:12 12:50 Temperature 98.8 F Pulse Rate 56 88 Respiratory 17 20 21 Rate Blood Pressure 140/75 (mmHg) O2 Sat by Pulse 95 94 Oximetry 10/09/17 10/09/17 10/09/17 13:00 14:00 15:00 Temperature 99.1 F 99.1 F 99.1 F Pulse Rate 68 70 73 Respiratory 23 23 21 Rate Blood Pressure 135/74 129/71 163/75 (mmHg) O2 Sat by Pulse 94 89 92 Oximetry Oxygen Devices in Use Now: BiPAP Result Diagrams: 10/09/17 02:59 10/09/17 02:59 Assess/Plan/Problems-Billing Assessment: - Patient Problems (1) Acute on chronic respiratory failure with hypercapnia Current Visit: Yes Status: Acute Code(s): J96.22 - ACUTE AND CHRONIC RESPIRATORY FAILURE WITH HYPERCAPNIA SNOMED Code(s): 4387591040354 Comment: -Likely due to both COPD and diastolic CHF exacerbation, complicated by obesity- hypoventilation syndrome -Continue Lasix -Will place pt on Solumedrol, Duonebs, and PRN Albuterol as ordered (2) GERD (gastroesophageal reflux disease) Current Visit: Yes Status: Acute Code(s): K21.9 - GASTRO-ESOPHAGEAL REFLUX DISEASE WITHOUT ESOPHAGITIS SNOMED Code(s): 931303209 Comment: -Continue Famotidine (3) History of DVT (deep vein thrombosis) Current Visit: No Status: Chronic Priority: High Code(s): Z86.718 - PERSONAL HISTORY OF OTHER VENOUS THROMBOSIS AND EMBOLISM SNOMED Code(s): 792092055 Comment: #Hx of PE/DVT: -Will place him on his home Xarelto (4) DVT prophylaxis Current Visit: Yes Status: Acute Code(s): [id number] - SNOMED Code(s): 728432696 Comment: -Will be placed on Xarelto Status and Disposition: -As above
[2017-10-09] MEDS: methylPREDNISolone SOD 40 MG* 1 ML VIAL IV SCH (17:36)
[2017-10-10] MEDS: methylPREDNISolone SOD 40 MG* 1 ML VIAL IV SCH ×4 (00:09→23:40)
[2017-10-10] MEDS: Acetaminophen TAB* 325 MG PO PRN ×2 (05:23→21:36)
[2017-10-10] MEDS: Furosemide IV* 10 MG/ML 10 ML VIAL (100 MG) IV SCH ×2 (07:48→12:31)
[2017-10-10 08:24] LABS: ABS Basophils 0 10^3/ul (0-0.2); ABS Eosinophils 0 10^3/ul (0-0.6); ABS Lymphocytes 0.2 10^3/ul (1.0-4.8); ABS Monocytes 0.2 10^3/ul (0-0.8); ABS Neutrophils 3.9 10^3/ul (1.5-7.7); ABS Nucleated RBC 0 10^3/ul; Eosinophil % 0 % (0-6); Hematocrit 44 % (42-52); Hemoglobin 14.2 g/dl (14.0-18.0); Lymphocyte % 5.6 % (25-47); Mean Corpuscular HGB Conc 32 g/dl (31-36); Mean Corpuscular Hemoglobin 26 pg (27-31); Mean Corpuscular Volume 83 fL (80-94); Mean Platelet Volume 9.8 um3 (7.4-10.4); Nucleated Red Blood Cells % 0; Platelet Count 149 10^3/ul (150-450); Red Blood Count 5.35 10^6/ul (4.00-5.40); Red Cell Distribution Width 18 % (10.5-15); White Blood Count 4.4 10^3/ul (3.5-10.8)
[2017-10-10 08:31] LABS: EGFR Non-African American 85.8 (>60)
[2017-10-10] MEDS: Famotidine TAB* 20 MG PO SCH (08:54)
[2017-10-10] MEDS: Docusate CAP* 100 MG PO SCH ×2 (08:54→21:07)
[2017-10-10] MEDS: Rivaroxaban TAB(*) 20 MG TAB PO SCH (09:10)
--- NOTE | 2017-10-10 15:16 | PN ---
Subjective Date of Service: 10/10/17 Interval History: Pt seen and examined. Meds and labs reviewed ROS: Denied WALL/dizziness, F/C, N/V, CP, SOB, increased cough, sputum production , abd pain, diarrhea, constipation, dysuria, myalgias, arthralgias, throat pain , and new skin lesions. The rest of the 14 point ROS are unremarkable. PHYSICAL EXAM: GEN APPEARANCE: Awake, not in acute distress HEENT: NC/AT, PERRLA, moist oral mucosa, (-) throat erythema NECK: Soft, supple, (-) cervical LAD, (-)JVD HEART: S1S2 WNL, RRR, No MRG CHEST: CTA, BL, GAE, No W/R/R ABD: Soft, ND/NT, NABS 4x Q EXT: No C/C/E SKIN: Warm to touch PSYCH: No active psychosis, hallucinations, depression, SI/HI Objective Active Medications: Albuterol (Ventolin 2.5 Mg/3 Ml Neb.Brandy*) 2.5 mg INH Q2H PRN PRN Reason: SOB/WHEEZING Albuterol/Ipratropium (Duoneb (Albuterol 2.5 Mg/Ipratropium 0.5 Mg)) 1 neb INH Q4H PRN PRN Reason: SOB/WHEEZING Docusate Sodium (Colace Cap*) 200 mg PO BID [facility] Last Admin: 10/10/17 08:54 Dose: 200 mg Famotidine (Pepcid Tab*) 20 mg PO DAILY [facility] Last Admin: 10/10/17 08:54 Dose: 20 mg Furosemide (Lasix Iv*) 60 mg IV 0800,1200 [facility] Last Admin: 10/10/17 12:31 Dose: 60 mg Melatonin (Melatonin) 3 mg PO BEDTIME PRN; Protocol PRN Reason: Sleep Methylprednisolone Sodium Succinate (Solu-Medrol 40 Mg) 40 mg IV Q8H [facility] Ondansetron HCl (Zofran Odt Tab*) 4 mg PO Q6H PRN PRN Reason: n/v Rivaroxaban (Xarelto(*)) 20 mg PO DAILY [facility] Last Admin: 10/10/17 09:10 Dose: 20 mg Vital Signs - 8 hr 10/10/17 10/10/17 10/10/17 08:00 09:00 09:49 Temperature 98.1 F 98.1 F 98.2 F Pulse Rate 61 69 72 Respiratory 20 19 22 Rate Blood Pressure 149/84 132/91 (mmHg) O2 Sat by Pulse 94 91 88 Oximetry 10/10/17 10/10/17 10/10/17 10:00 10:01 11:00 Temperature 98.4 F 98.4 F 98.8 F Pulse Rate 72 72 71 Respiratory 19 21 20 Rate Blood Pressure 140/61 (mmHg) O2 Sat by Pulse 90 89 89 Oximetry 10/10/17 10/10/17 10/10/17 11:01 11:57 12:00 Temperature 98.8 F 99.0 F Pulse Rate 72 69 Respiratory 27 18 24 Rate Blood Pressure 150/83 162/71 (mmHg) O2 Sat by Pulse 88 89 Oximetry 10/10/17 10/10/17 10/10/17 12:09 13:00 14:00 Temperature 99.0 F 99.3 F 99.5 F Pulse Rate 70 81 77 Respiratory 21 19 29 Rate Blood Pressure 143/70 142/73 (mmHg) O2 Sat by Pulse 90 90 89 Oximetry 10/10/17 15:00 Temperature 99.5 F Pulse Rate 76 Respiratory 23 Rate Blood Pressure 132/72 (mmHg) O2 Sat by Pulse 91 Oximetry Oxygen Devices in Use Now: High Flow Heated Nasal Cannula Result Diagrams: 10/10/17 08:00 10/10/17 08:00 Assess/Plan/Problems-Billing Assessment: - Patient Problems (1) Acute on chronic respiratory failure with hypercapnia Current Visit: Yes Status: Acute Code(s): J96.22 - ACUTE AND CHRONIC RESPIRATORY FAILURE WITH HYPERCAPNIA SNOMED Code(s): 0084245408472 Comment: -No longer somnolent -Likely due to both COPD and diastolic CHF exacerbation, complicated by obesity- hypoventilation syndrome -Continue Lasix -Will decrease Solumedrol to 40 mg IV q8H, continue PRN Duonebs, and Albuterol as ordered -Per pt, his home BiPAP settings are: 20/5, at 5L (2) GERD (gastroesophageal reflux disease) Current Visit: Yes Status: Acute Code(s): K21.9 - GASTRO-ESOPHAGEAL REFLUX DISEASE WITHOUT ESOPHAGITIS SNOMED Code(s): 490223063 Comment: -Continue Famotidine (3) History of DVT (deep vein thrombosis) Current Visit: No Status: Chronic Priority: High Code(s): Z86.718 - PERSONAL HISTORY OF OTHER VENOUS THROMBOSIS AND EMBOLISM SNOMED Code(s): 330430396 Comment: #Hx of PE/DVT: -Continue on his home Xarelto (4) DVT prophylaxis Current Visit: Yes Status: Acute Code(s): [id number] - SNOMED Code(s): 234704486 Comment: -Will be placed on Xarelto Status and Disposition: -For PT eval -Pt still on Vapotherm, transfer to floors when no longer on high flow
--- NOTE | 2017-10-10 16:36 | PN ---
Progress Note - Progress Note Date of Service: 10/10/17 Note: Patient has diuresed 4 liters in past 24 hours, and is now oxygenating adequately with nasal O2 at 15 L/min. There is no evidence of active infection. Plan is to continue aggressive diuresis.
[2017-10-10] MEDS: Melatonin 3 MG TAB PO PRN (21:36)
[2017-10-11 07:03] LABS: Hematocrit 44 % (42-52); Hemoglobin 14.2 g/dl (14.0-18.0); Mean Corpuscular HGB Conc 32 g/dl (31-36); Mean Corpuscular Hemoglobin 26 pg (27-31); Mean Corpuscular Volume 81 fL (80-94); Mean Platelet Volume 9.6 um3 (7.4-10.4); Platelet Count 153 10^3/ul (150-450); Red Blood Count 5.41 10^6/ul (4.00-5.40); Red Cell Distribution Width 18 % (10.5-15); White Blood Count 7.3 10^3/ul (3.5-10.8)
[2017-10-11 07:16] LABS: EGFR Non-African American 98.3 (>60)
[2017-10-11] MEDS: Docusate CAP* 100 MG PO SCH ×2 (07:39→20:33)
[2017-10-11] MEDS: Furosemide IV* 10 MG/ML 10 ML VIAL (100 MG) IV SCH (07:39)
[2017-10-11] MEDS: Rivaroxaban TAB(*) 20 MG TAB PO SCH (07:39)
[2017-10-11] MEDS: Famotidine TAB* 20 MG PO SCH (07:39)
[2017-10-11] MEDS: methylPREDNISolone SOD 40 MG* 1 ML VIAL IV SCH ×3 (07:39→23:20)
[2017-10-11] MEDS: Acetaminophen TAB* 325 MG PO PRN ×2 (07:46→20:33)
--- NOTE | 2017-10-11 17:10 | PN ---
Subjective Date of Service: 10/11/17 Interval History: Pt seen and examined. Meds and labs reviewed ROS: Denied WALL/dizziness, F/C, N/V, CP, SOB, increased cough, sputum production , abd pain, diarrhea, constipation, dysuria, myalgias, arthralgias, throat pain , and new skin lesions. The rest of the 14 point ROS are unremarkable. PHYSICAL EXAM: GEN APPEARANCE: Awake, not in acute distress, obese HEENT: NC/AT, PERRLA, moist oral mucosa, (-) throat erythema NECK: Soft, supple, (-) cervical LAD, (-)JVD HEART: S1S2 WNL, RRR, No MRG CHEST: CTA, BL, GAE, No W/R/R ABD: Soft, ND/NT, NABS 4x Q EXT: No C/C/E SKIN: Warm to touch PSYCH: No active psychosis, hallucinations, depression, SI/HI Objective Active Medications: Acetaminophen (Tylenol Tab*) 650 mg PO Q6H PRN PRN Reason: PAIN OR FEVER Last Admin: 10/11/17 07:46 Dose: 650 mg Albuterol (Ventolin 2.5 Mg/3 Ml Neb.Brandy*) 2.5 mg INH Q2H PRN PRN Reason: SOB/WHEEZING Albuterol/Ipratropium (Duoneb (Albuterol 2.5 Mg/Ipratropium 0.5 Mg)) 1 neb INH Q4H PRN PRN Reason: SOB/WHEEZING Docusate Sodium (Colace Cap*) 200 mg PO BID [facility] Last Admin: 10/11/17 07:39 Dose: 200 mg Famotidine (Pepcid Tab*) 20 mg PO DAILY [facility] Last Admin: 10/11/17 07:39 Dose: 20 mg Melatonin (Melatonin) 3 mg PO BEDTIME PRN; Protocol PRN Reason: Sleep Last Admin: 10/10/17 21:36 Dose: 3 mg Methylprednisolone Sodium Succinate (Solu-Medrol 40 Mg) 40 mg IV Q8H [facility] Last Admin: 10/11/17 15:47 Dose: 40 mg Ondansetron HCl (Zofran Odt Tab*) 4 mg PO Q6H PRN PRN Reason: n/v Rivaroxaban (Xarelto(*)) 20 mg PO DAILY [facility] Last Admin: 10/11/17 07:39 Dose: 20 mg Torsemide (Demadex*) 40 mg PO DAILY [facility] Vital Signs - 8 hr 10/11/17 10/11/17 10/11/17 11:11 11:26 15:49 Temperature 98.2 F 98.1 F Pulse Rate 65 64 Respiratory 18 18 Rate Blood Pressure 119/51 140/62 (mmHg) O2 Sat by Pulse 90 94 97 Oximetry Oxygen Devices in Use Now: High Flow Nasal Cannula Result Diagrams: 10/11/17 06:49 10/11/17 06:49 Assess/Plan/Problems-Billing Assessment: - Patient Problems (1) Acute on chronic respiratory failure with hypercapnia Current Visit: Yes Status: Acute Code(s): J96.22 - ACUTE AND CHRONIC RESPIRATORY FAILURE WITH HYPERCAPNIA SNOMED Code(s): 7342348399914 Comment: -Likely due to both COPD and diastolic CHF exacerbation, complicated by obesity- hypoventilation syndrome -D/C Lasix and will start pt on Torsemide tomorrow -Continue Solumedrol to 40 mg IV q8H, continue PRN Duonebs, and Albuterol as ordered -Per pt, his home BiPAP settings are: 20/5, at 5L (2) GERD (gastroesophageal reflux disease) Current Visit: Yes Status: Acute Code(s): K21.9 - GASTRO-ESOPHAGEAL REFLUX DISEASE WITHOUT ESOPHAGITIS SNOMED Code(s): 172996379 Comment: -Continue Famotidine (3) History of DVT (deep vein thrombosis) Current Visit: No Status: Chronic Priority: High Code(s): Z86.718 - PERSONAL HISTORY OF OTHER VENOUS THROMBOSIS AND EMBOLISM SNOMED Code(s): 792831066 Comment: #Hx of PE/DVT: -Continue on his home Xarelto (4) DVT prophylaxis Current Visit: Yes Status: Acute Code(s): [id number] - SNOMED Code(s): 206745909 Comment: -Will be placed on Xarelto Status and Disposition: -Appreciate PT input -For possible D/C in AM
[2017-10-12] MEDS: Acetaminophen TAB* 325 MG PO PRN (06:43)
[2017-10-12 06:51] LABS: ABS Basophils 0 10^3/ul (0-0.2); ABS Eosinophils 0 10^3/ul (0-0.6); ABS Lymphocytes 0.4 10^3/ul (1.0-4.8); ABS Monocytes 0.4 10^3/ul (0-0.8); ABS Neutrophils 5.5 10^3/ul (1.5-7.7); ABS Nucleated RBC 0 10^3/ul; Eosinophil % 0 % (0-6); Hematocrit 45 % (42-52); Hemoglobin 14.4 g/dl (14.0-18.0); Mean Corpuscular HGB Conc 32 g/dl (31-36); Mean Corpuscular Hemoglobin 26 pg (27-31); Mean Corpuscular Volume 82 fL (80-94); Mean Platelet Volume 9.5 um3 (7.4-10.4); Nucleated Red Blood Cells % 0.1; Platelet Count 163 10^3/ul (150-450); Red Blood Count 5.52 10^6/ul (4.00-5.40); Red Cell Distribution Width 18 % (10.5-15); White Blood Count 6.3 10^3/ul (3.5-10.8)
[2017-10-12 07:16] LABS: EGFR Non-African American 105.5 (>60)
[2017-10-12] MEDS: Docusate CAP* 100 MG PO SCH ×2 (08:37→23:08)
[2017-10-12] MEDS: Famotidine TAB* 20 MG PO SCH (08:37)
[2017-10-12] MEDS: Torsemide TAB* 20 MG PO SCH (08:37)
[2017-10-12] MEDS: methylPREDNISolone SOD 40 MG* 1 ML VIAL IV SCH ×3 (08:37→23:09)
[2017-10-12] MEDS: Rivaroxaban TAB(*) 20 MG TAB PO SCH (08:37)
[2017-10-12] MEDS: Metolazone TAB* 5 MG PO SCH (14:03)
[2017-10-12 16:33] LABS: Urine Appearance Cloudy; Urine Blood 2+ (Negative); Urine Color Amber; Urine Ketones Negative (Negative); Urine Protein 2+(100 mg/dL) (Negative); Urine Red Blood Cell 3+(>10/hpf) (Absent); Urine Specific Gravity 1.013 (1.010-1.030); Urine Urobilinogen Negative (Negative); Urine White Blood Cell 3+(>20/hpf) (Absent)
[2017-10-12] MEDS ORDERED: Furosemide IV* 10 MG/ML VIAL (40 MG) IV STA (16:58)
--- NOTE | 2017-10-12 17:04 | PN ---
Subjective Date of Service: 10/12/17 Interval History: Pt seen and examined. Meds and labs reviewed CC: SOB ROS: Denied WALL/dizziness, F/C, N/V, CP, increased cough, sputum production, abd pain, diarrhea, constipation, dysuria, myalgias, arthralgias, throat pain, and new skin lesions. The rest of the 14 point ROS are unremarkable. PHYSICAL EXAM: GEN APPEARANCE: Awake, not in acute distress HEENT: NC/AT, PERRLA, moist oral mucosa, (-) throat erythema NECK: Soft, supple, (-) cervical LAD, (-)JVD HEART: S1S2 WNL, RRR, No MRG CHEST: CTA, BL, GAE, No W/R/R ABD: Soft, ND/NT, NABS 4x Q EXT: No C/C/E SKIN: Warm to touch PSYCH: No active psychosis, hallucinations, depression, SI/HI Objective Active Medications: Acetaminophen (Tylenol Tab*) 650 mg PO Q6H PRN PRN Reason: PAIN OR FEVER Last Admin: 10/12/17 06:43 Dose: 650 mg Albuterol (Ventolin 2.5 Mg/3 Ml Neb.Brandy*) 2.5 mg INH Q2H PRN PRN Reason: SOB/WHEEZING Albuterol/Ipratropium (Duoneb (Albuterol 2.5 Mg/Ipratropium 0.5 Mg)) 1 neb INH Q4H PRN PRN Reason: SOB/WHEEZING Docusate Sodium (Colace Cap*) 200 mg PO BID [facility] Last Admin: 10/12/17 08:37 Dose: 200 mg Famotidine (Pepcid Tab*) 20 mg PO DAILY [facility] Last Admin: 10/12/17 08:37 Dose: 20 mg Melatonin (Melatonin) 3 mg PO BEDTIME PRN; Protocol PRN Reason: Sleep Last Admin: 10/10/17 21:36 Dose: 3 mg Methylprednisolone Sodium Succinate (Solu-Medrol 40 Mg) 40 mg IV Q8H [facility] Last Admin: 10/12/17 16:38 Dose: 40 mg Metolazone (Zaroxolyn Tab*) 5 mg PO DAILY [facility] Last Admin: 10/12/17 14:03 Dose: 5 mg Ondansetron HCl (Zofran Odt Tab*) 4 mg PO Q6H PRN PRN Reason: n/v Torsemide (Demadex*) 40 mg PO DAILY [facility] Last Admin: 10/12/17 08:37 Dose: 40 mg Vital Signs - 8 hr 10/12/17 10/12/17 11:24 11:53 Temperature 98.1 F Pulse Rate 72 Respiratory 16 18 Rate Blood Pressure 142/70 (mmHg) O2 Sat by Pulse 91 Oximetry Oxygen Devices in Use Now: High Flow Nasal Cannula Result Diagrams: 10/12/17 06:40 10/12/17 06:40 Assess/Plan/Problems-Billing Assessment: - Patient Problems (1) Acute on chronic respiratory failure with hypercapnia Current Visit: Yes Status: Acute Code(s): J96.22 - ACUTE AND CHRONIC RESPIRATORY FAILURE WITH HYPERCAPNIA SNOMED Code(s): 6460765804759 Comment: -Likely due to both COPD and diastolic CHF exacerbation, complicated by obesity- hypoventilation syndrome -Continue Torsemide -Continue Solumedrol to 40 mg IV q8H, continue PRN Duonebs, and Albuterol as ordered -Per pt, his home BiPAP settings are: 20/5, at 5L -Given needs for O2 is still elevated from baseline, will give 1x Lasix IV and will place pt on Metolazone for Synergy -ABG ordered and tried, unfortunately, pt is a difficult stick. Will order VBG instead at 7 AM tomorrow (2) GERD (gastroesophageal reflux disease) Current Visit: Yes Status: Acute Code(s): K21.9 - GASTRO-ESOPHAGEAL REFLUX DISEASE WITHOUT ESOPHAGITIS SNOMED Code(s): 025226587 Comment: -Continue Famotidine (3) History of DVT (deep vein thrombosis) Current Visit: No Status: Chronic Priority: High Code(s): Z86.718 - PERSONAL HISTORY OF OTHER VENOUS THROMBOSIS AND EMBOLISM SNOMED Code(s): 249017047 Comment: #Hx of PE/DVT: -Continue on his home Xarelto (4) DVT prophylaxis Current Visit: Yes Status: Acute Code(s): PZR7294 - SNOMED Code(s): 383882590 Comment: -Will be placed on Xarelto Status and Disposition: -Appreciate PT input -For D/C once pt is at or near baseline O2 needs. Discussed case with Dr. Fabian given pt seemed upset when told he may be discharged soon.
--- NOTE | 2017-10-12 18:40 | RAD ---
INDICATION: Gross hematuria COMPARISON: Similar examination dated July 01, 2016 TECHNIQUE: Real-time ultrasound examination of the bilateral kidneys and urinary bladder including grayscale and Doppler color flow analysis. FINDINGS: Bilaterally the kidneys are normal in size and echogenicity. There are no hypervascular renal masses. There are no renal calculi or hydronephrosis identified. The bob of the urinary bladder are smooth. A Chris catheter balloon is visualized in the urinary bladder lumen. Normal ureteral jets are identified bilaterally. IMPRESSION: Normal ultrasound of the kidneys and urinary bladder.
[2017-10-12] MEDS ORDERED: Ibuprofen TAB* 800 MG PO ONE (21:21)
[2017-10-12] MEDS ORDERED: oxyCODONE/Acetamin 5/325 MG* TAB PO ONE (21:21)
[2017-10-13] MEDS: Famotidine TAB* 20 MG PO SCH (09:55)
[2017-10-13] MEDS: Torsemide TAB* 20 MG PO SCH (09:55)
[2017-10-13] MEDS: Docusate CAP* 100 MG PO SCH ×2 (09:55→20:05)
[2017-10-13] MEDS: Metolazone TAB* 5 MG PO SCH (09:55)
[2017-10-13] MEDS: methylPREDNISolone SOD 40 MG* 1 ML VIAL IV SCH ×3 (11:46→20:05)
[2017-10-13] MEDS ORDERED: methylPREDNISolone SOD 40 MG* 1 ML VIAL IV SCH (12:00)
--- NOTE | 2017-10-13 17:31 | PN ---
Subjective Date of Service: 10/13/17 Interval History: Patient's main complaint is a headache which resolved with caffeine. Patient also feels quite constipated which also usually resolves with coffee. Patient denies CP, SOB, N/V, abdominal pain, dysuria, or other pain. Patient states that he previously had multiple PEs and that he is currently undergoing wound care with [facility]. Family History: Unchanged from Admission Social History: Unchanged from Admission Past Medical History: Unchanged from Admission Objective Active Medications: Acetaminophen (Tylenol Tab*) 650 mg PO Q6H PRN PRN Reason: PAIN OR FEVER Last Admin: 10/12/17 06:43 Dose: 650 mg Albuterol (Ventolin 2.5 Mg/3 Ml Neb.Brandy*) 2.5 mg INH Q2H PRN PRN Reason: SOB/WHEEZING Albuterol/Ipratropium (Duoneb (Albuterol 2.5 Mg/Ipratropium 0.5 Mg)) 1 neb INH Q4H PRN PRN Reason: SOB/WHEEZING Aspirin (Aspirin Ec Tab*) 81 mg PO DAILY [facility] Docusate Sodium (Colace Cap*) 200 mg PO BID [facility] Last Admin: 10/13/17 09:55 Dose: 200 mg Famotidine (Pepcid Tab*) 20 mg PO DAILY [facility] Last Admin: 10/13/17 09:55 Dose: 20 mg Ferrous Sulfate (Ferrous Sulfate Tab*) 325 mg PO DAILY [facility] Melatonin (Melatonin) 3 mg PO BEDTIME PRN; Protocol PRN Reason: Sleep Last Admin: 10/10/17 21:36 Dose: 3 mg Methylprednisolone Sodium Succinate (Solu-Medrol 40 Mg) 40 mg IV Q8H [facility] Last Admin: 10/13/17 11:48 Dose: 40 mg Ondansetron HCl (Zofran Odt Tab*) 4 mg PO Q6H PRN PRN Reason: n/v Torsemide (Demadex*) 20 mg PO DAILY [facility] Vital Signs - 8 hr 10/13/17 10/13/17 10/13/17 10:25 11:26 16:03 Temperature 98.3 F 98.3 F Pulse Rate 68 64 Respiratory 18 16 17 Rate Blood Pressure 137/76 143/73 (mmHg) O2 Sat by Pulse 95 96 Oximetry Oxygen Devices in Use Now: High Flow Nasal Cannula Appearance: Patient is a 62yo male who is obese and appears stated age and is sitting in the bed in NAD. Eyes: No Scleral Icterus, PERRLA Ears/Nose/Mouth/Throat: NL Teeth, Lips, Gums, Clear Oropharnyx, Mucous Membranes Moist Neck: NL Appearance and Movements; NL JVP, Trachea Midline Respiratory: Symmetrical Chest Expansion and Respiratory Effort, Clear to Auscultation, - - Diminished Cardiovascular: NL Sounds; No Murmurs; No JVD, RRR, No Edema Abdominal: NL Sounds; No Tenderness; No Distention, No Hepatosplenomegaly, - - Obese, Umbilical hernia. Lymphatic: No Cervical Adenopathy Extremities: No Edema, No Clubbing, Cyanosis Skin: No Nodules or Sclerosis, - - Lower extremity rashes covered with bandages. Neurological: Alert and Oriented x 3, NL Sensation, NL Muscle Strength and Tone , - - CN II-XII intact. Result Diagrams: 10/12/17 06:40 10/12/17 06:40 Assess/Plan/Problems-Billing Assessment: Patient is a 62yo male with a PMH for Obesity Hypoventilation syndrome, Chronic hypoxic and hypercarbic respiratory failure, Multiple PEs, Morbid obesity, Diastolic HF, who presents with acute on chronic respiratory failure and is slowly improving but still has severely increased O2 requirement and hypercarbia. - Patient Problems (1) Acute on chronic respiratory failure with hypercapnia Current Visit: Yes Status: Acute Code(s): J96.22 - ACUTE AND CHRONIC RESPIRATORY FAILURE WITH HYPERCAPNIA SNOMED Code(s): 3699526460377 Comment: Likely due to both COPD and diastolic CHF exacerbation, complicated by obesity- hypoventilation syndrome Continue Torsemide at home dose. BMP normal. Continue Solumedrol to 40 mg IV q8H, continue PRN Duonebs, and Albuterol as ordered Per pt, his home BiPAP settings are: 20/5, at 5L. Follow up with Dr. Valencia outpatient to discuss Trilogy O2 still very elevated. BNP low. Continue COPD treatment and continue home diuretics. VBG improved. (2) GERD (gastroesophageal reflux disease) Current Visit: Yes Status: Acute Code(s): K21.9 - GASTRO-ESOPHAGEAL REFLUX DISEASE WITHOUT ESOPHAGITIS SNOMED Code(s): 285527406 Comment: Continue Famotidine (3) Atrial flutter Current Visit: No Status: Acute Code(s): I48.92 - UNSPECIFIED ATRIAL FLUTTER SNOMED Code(s): 3502927 Comment: In NSR. Continue Metoprolol and resume Xarelto when hematuria resolves. (4) Bilateral lower leg cellulitis Current Visit: No Status: Acute Code(s): L03.116 - CELLULITIS OF LEFT LOWER LIMB; L03.115 - CELLULITIS OF RIGHT LOWER LIMB SNOMED Code(s): 832720051 Comment: Continue dressings and follow outpatient with wound care. (5) Chronic pain Current Visit: No Status: Acute Code(s): G89.29 - OTHER CHRONIC PAIN SNOMED Code(s): 41704220 Comment: Controlled not on medication. (6) Headache Current Visit: No Status: Acute Code(s): R51 - HEADACHE SNOMED Code(s): 75101789 Comment: Severe headache resolved with caffeine. (7) Lymphedema Current Visit: No Status: Acute Code(s): I89.0 - LYMPHEDEMA, NOT ELSEWHERE CLASSIFIED SNOMED Code(s): 123426284 Comment: Follow with wound care outpatient. (8) CHF (congestive heart failure) Current Visit: No Status: Chronic Code(s): I50.9 - HEART FAILURE, UNSPECIFIED SNOMED Code(s): 18033534 Comment: Stable. Chronic diastolic HF Continue Losartan and diuretics at home doses. Contraction alkalosis possibly contributing to hypercarbia. (9) History of pulmonary embolism Current Visit: No Status: Chronic Code(s): Z86.711 - PERSONAL HISTORY OF PULMONARY EMBOLISM SNOMED Code(s): 815232867 Comment: Xarelto held. Continue when able. Consider workup for CTEPH. (10) Obesity hypoventilation syndrome Current Visit: No Status: Chronic Code(s): E66.2 - MORBID (SEVERE) OBESITY WITH ALVEOLAR HYPOVENTILATION SNOMED Code(s): 699976244 Comment: Continue BiPAP. Discuss triliogy outpatient with Dr. Valencia. Severe hypercarbia improving. (11) DVT prophylaxis Current Visit: Yes Status: Acute Code(s): ART2781 - SNOMED Code(s): 219557976 Comment: Xarelto held for hematuria. Status and Disposition: -Appreciate PT input -For D/C once pt is at or near baseline O2 needs. Hopeful discharge home with possible need for KATHY.
[2017-10-13] MEDS: Melatonin 3 MG TAB PO PRN (23:11)
[2017-10-14] MEDS: methylPREDNISolone SOD 40 MG* 1 ML VIAL IV SCH ×3 (04:31→20:11)
[2017-10-14 07:32] LABS: ABS Basophils 0 10^3/ul (0-0.2); ABS Eosinophils 0 10^3/ul (0-0.6); ABS Lymphocytes 0.7 10^3/ul (1.0-4.8); ABS Monocytes 0.7 10^3/ul (0-0.8); ABS Neutrophils 6.6 10^3/ul (1.5-7.7); ABS Nucleated RBC 0 10^3/ul; Eosinophil % 0.1 % (0-6); Hematocrit 51 % (42-52); Hemoglobin 16.8 g/dl (14.0-18.0); Lymphocyte % 8.6 % (25-47); Mean Corpuscular HGB Conc 33 g/dl (31-36); Mean Corpuscular Hemoglobin 26 pg (27-31); Mean Corpuscular Volume 80 fL (80-94); Mean Platelet Volume 9.2 um3 (7.4-10.4); Nucleated Red Blood Cells % 0; Platelet Count 169 10^3/ul (150-450); Red Blood Count 6.41 10^6/ul (4.00-5.40); Red Cell Distribution Width 17 % (10.5-15)
[2017-10-14 07:56] LABS: EGFR Non-African American 91.3 (>60)
[2017-10-14] MEDS ORDERED: Rivaroxaban TAB(*) 20 MG TAB PO SCH (09:00)
[2017-10-14] MEDS ORDERED: Torsemide TAB* 20 MG PO SCH (09:00)
[2017-10-14] MEDS: Ferrous Sulfate TAB* 325 MG PO SCH (09:23)
[2017-10-14] MEDS: Famotidine TAB* 20 MG PO SCH (09:24)
[2017-10-14] MEDS: Docusate CAP* 100 MG PO SCH ×2 (09:24→22:08)
[2017-10-14] MEDS: Aspirin EC TAB* 81 MG TAB.EC PO SCH (09:24)
[2017-10-14] MEDS ORDERED: acetaZOLAMIDE TAB* 250 MG PO SCH (12:00)
[2017-10-14] MEDS ORDERED: Senna TAB PO PRN (14:47)
[2017-10-14] MEDS ORDERED: Magnesium Hydroxide LIQ* 30 ML UDC PO PRN (14:47)
--- NOTE | 2017-10-14 15:18 | PN ---
Subjective Date of Service: 10/14/17 Interval History: Patient feels similar to yesterday, no increased SOB. No CP, N/V, abdominal pain , feels somewhat constipated. Denies F/C, cough, sputum production, or other pain. States his headache has gone away. Family History: Unchanged from Admission Social History: Unchanged from Admission Past Medical History: Unchanged from Admission Objective Active Medications: Acetaminophen (Tylenol Tab*) 650 mg PO Q6H PRN PRN Reason: PAIN OR FEVER Last Admin: 10/12/17 06:43 Dose: 650 mg Acetazolamide (Diamox Tab*) 250 mg PO BID [facility] Stop: 10/16/17 21:01 Last Admin: 10/14/17 13:44 Dose: 250 mg Albuterol (Ventolin 2.5 Mg/3 Ml Neb.Brandy*) 2.5 mg INH Q2H PRN PRN Reason: SOB/WHEEZING Albuterol/Ipratropium (Duoneb (Albuterol 2.5 Mg/Ipratropium 0.5 Mg)) 1 neb INH Q4H PRN PRN Reason: SOB/WHEEZING Aspirin (Aspirin Ec Tab*) 81 mg PO DAILY [facility] Last Admin: 10/14/17 09:24 Dose: 81 mg Docusate Sodium (Colace Cap*) 200 mg PO BID [facility] Last Admin: 10/14/17 09:24 Dose: 200 mg Famotidine (Pepcid Tab*) 20 mg PO DAILY [facility] Last Admin: 10/14/17 09:24 Dose: 20 mg Ferrous Sulfate (Ferrous Sulfate Tab*) 325 mg PO DAILY [facility] Last Admin: 10/14/17 09:23 Dose: 325 mg Lactulose (Lactulose*) 30 ml PO DAILY PRN PRN Reason: CONSTIPATION Magnesium Hydroxide (Milk Of Magnesia Liq*) 30 ml PO BID PRN PRN Reason: CONSTIPATION Melatonin (Melatonin) 3 mg PO BEDTIME PRN; Protocol PRN Reason: Sleep Last Admin: 10/13/17 23:11 Dose: 3 mg Methylprednisolone Sodium Succinate (Solu-Medrol 40 Mg) 40 mg IV Q8H [facility] Last Admin: 10/14/17 13:45 Dose: 40 mg Ondansetron HCl (Zofran Odt Tab*) 4 mg PO Q6H PRN PRN Reason: n/v Rivaroxaban (Xarelto(*)) 20 mg PO DAILY [facility] Last Admin: 10/14/17 09:24 Dose: 20 mg Senna (Senokot Tab*) 1 tab PO BEDTIME PRN PRN Reason: CONSTIPATION Torsemide (Demadex*) 20 mg PO DAILY [facility] Last Admin: 10/14/17 09:24 Dose: 20 mg Vital Signs - 8 hr 10/14/17 10/14/17 10/14/17 07:19 09:34 13:26 Temperature 98.0 F Pulse Rate 55 55 Respiratory 16 22 20 Rate Blood Pressure 153/77 (mmHg) O2 Sat by Pulse 97 92 Oximetry Oxygen Devices in Use Now: Nasal Cannula Appearance: Patient is a 62yo male who appears stated age and is sitting in the bed in [facility]. Eyes: No Scleral Icterus, PERRLA Ears/Nose/Mouth/Throat: NL Teeth, Lips, Gums, Clear Oropharnyx, Mucous Membranes Moist Neck: NL Appearance and Movements; NL JVP, Trachea Midline Respiratory: Symmetrical Chest Expansion and Respiratory Effort, - - Diminished Cardiovascular: NL Sounds; No Murmurs; No JVD, RRR, No Edema Abdominal: NL Sounds; No Tenderness; No Distention, No Hepatosplenomegaly Lymphatic: No Cervical Adenopathy Extremities: No Edema, No Clubbing, Cyanosis Skin: No Rash or Ulcers, No Nodules or Sclerosis Neurological: Alert and Oriented x 3, NL Sensation, NL Muscle Strength and Tone , - - CN II-XII intact. Lines/Tubes/Other Access: Clean, Dry and Intact Chris - Draining dark yellow urine. Result Diagrams: 10/14/17 07:24 10/14/17 07:24 Microbiology and Other Data: Microbiology 10/12/17 15:05 Urine Culture - Preliminary Urine Burkholderia Multivorans Assess/Plan/Problems-Billing Assessment: Patient is a 62yo male with a PMH for Obesity Hypoventilation syndrome, Chronic hypoxic and hypercarbic respiratory failure, Multiple PEs, Morbid obesity, Diastolic HF, who presents with acute on chronic respiratory failure and is slowly improving but still has severely increased O2 requirement and hypercarbia. - Patient Problems (1) Acute on chronic respiratory failure with hypercapnia Current Visit: Yes Status: Acute Code(s): J96.22 - ACUTE AND CHRONIC RESPIRATORY FAILURE WITH HYPERCAPNIA SNOMED Code(s): 6577082752156 Comment: Likely due to both COPD and diastolic CHF exacerbation, complicated by obesity- hypoventilation syndrome Continue Torsemide at home dose. BMP normal. Continue Solumedrol to 40 mg IV q8H, continue PRN Duonebs, and Albuterol as ordered Per pt, his home BiPAP settings are: 20/5, at 5L. Follow up with Dr. Valencia outpatient to discuss Trilogy CO2 still very elevated but improved. Alkalotic. Elevated HCO3. Likely contraction alkalosis. BNP low. Continue COPD treatment and continue home diuretics. Continue BiPAP VBG improved. (2) GERD (gastroesophageal reflux disease) Current Visit: Yes Status: Acute Code(s): K21.9 - GASTRO-ESOPHAGEAL REFLUX DISEASE WITHOUT ESOPHAGITIS SNOMED Code(s): 240713729 Comment: Continue Famotidine (3) Atrial flutter Current Visit: No Status: Acute Code(s): I48.92 - UNSPECIFIED ATRIAL FLUTTER SNOMED Code(s): 5717074 Comment: In NSR. Continue Metoprolol and resume Xarelto. (4) Bilateral lower leg cellulitis Current Visit: No Status: Acute Code(s): L03.116 - CELLULITIS OF LEFT LOWER LIMB; L03.115 - CELLULITIS OF RIGHT LOWER LIMB SNOMED Code(s): 131686568 Comment: Continue dressings and follow outpatient with wound care. (5) Chronic pain Current Visit: No Status: Acute Code(s): G89.29 - OTHER CHRONIC PAIN SNOMED Code(s): 38804813 Comment: Controlled not on medication. (6) Headache Current Visit: No Status: Acute Code(s): R51 - HEADACHE SNOMED Code(s): 39554958 Comment: Severe headache resolved with caffeine. (7) Lymphedema Current Visit: No Status: Acute Code(s): I89.0 - LYMPHEDEMA, NOT ELSEWHERE CLASSIFIED SNOMED Code(s): 054854629 Comment: Follow with wound care outpatient. (8) CHF (congestive heart failure) Current Visit: No Status: Chronic Code(s): I50.9 - HEART FAILURE, UNSPECIFIED SNOMED Code(s): 90206657 Comment: Stable. Chronic diastolic HF Continue Losartan and diuretics at home doses. Contraction alkalosis possibly contributing to hypercarbia. BNP 11 this AM. (9) History of pulmonary embolism Current Visit: No Status: Chronic Code(s): Z86.711 - PERSONAL HISTORY OF PULMONARY EMBOLISM SNOMED Code(s): 103744194 Comment: Xarelto held. Continue when able. Consider workup for CTEPH. (10) UTI (urinary tract infection) Current Visit: No Status: Acute Comment: Repeated culture with Burkholderia. Likely contaminant. Remove Chris. (11) Obesity hypoventilation syndrome Current Visit: No Status: Chronic Code(s): E66.2 - MORBID (SEVERE) OBESITY WITH ALVEOLAR HYPOVENTILATION SNOMED Code(s): 556299007 Comment: Continue BiPAP. Discuss triliogy outpatient with Dr. Valencia. Severe hypercarbia improving. (12) DVT prophylaxis Current Visit: Yes Status: Acute Code(s): BAR6668 - SNOMED Code(s): 669204982 Comment: Xarelto resumed. History of DVT/PE Status and Disposition: -Appreciate PT input -For D/C once pt is at or near baseline O2 needs. Hopeful discharge home with possible need for KATHY.
[2017-10-14] MEDS: Melatonin 3 MG TAB PO PRN (22:08)
[2017-10-14 22:54] LABS: Urine Appearance Cloudy; Urine Blood 3+ (Negative); Urine Color Red; Urine Ketones Negative (Negative); Urine Protein 2+(100 mg/dL) (Negative); Urine Red Blood Cell 3+(>10/hpf) (Absent); Urine Specific Gravity 1.012 (1.010-1.030); Urine Urobilinogen Negative (Negative); Urine White Blood Cell 3+(>20/hpf) (Absent)
[2017-10-15] MEDS: methylPREDNISolone SOD 40 MG* 1 ML VIAL IV SCH ×2 (04:32→15:50)
[2017-10-15 06:16] LABS: Hematocrit 54 % (42-52); Hemoglobin 17.4 g/dl (14.0-18.0); Mean Corpuscular HGB Conc 32 g/dl (31-36); Mean Corpuscular Hemoglobin 26 pg (27-31); Mean Corpuscular Volume 80 fL (80-94); Mean Platelet Volume 9.4 um3 (7.4-10.4); Platelet Count 172 10^3/ul (150-450); Red Blood Count 6.72 10^6/ul (4.00-5.40); Red Cell Distribution Width 17 % (10.5-15); White Blood Count 8.6 10^3/ul (3.5-10.8)
[2017-10-15 06:33] LABS: EGFR Non-African American 83.4 (>60)
[2017-10-15 07:31] LABS: ABS Basophils 0 10^3/ul (0-0.2); ABS Eosinophils 0 10^3/ul (0-0.6); ABS Lymphocytes 0.6 10^3/ul (1.0-4.8); ABS Monocytes 0.7 10^3/ul (0-0.8); ABS Neutrophils 7.2 10^3/ul (1.5-7.7); ABS Nucleated RBC 0 10^3/ul; Eosinophil % 0.1 % (0-6); Lymphocyte % 7.4 % (25-47); Nucleated Red Blood Cells % 0.3
[2017-10-15] MEDS: Ferrous Sulfate TAB* 325 MG PO SCH (09:20)
[2017-10-15] MEDS: Aspirin EC TAB* 81 MG TAB.EC PO SCH (09:20)
[2017-10-15] MEDS: Docusate CAP* 100 MG PO SCH ×2 (09:20→20:34)
[2017-10-15] MEDS: Famotidine TAB* 20 MG PO SCH (09:21)
--- NOTE | 2017-10-15 17:04 | PN ---
Subjective Date of Service: 10/15/17 Interval History: Improved breathing today. Increased blood noted in urine overnight. Decreasing again today. States that his breathing feels much worse when entering his apartment and believes this is related to mold exposure. Patient also had a small amount of blood in his stool. Patient is scheduled for a upper and lower endoscopy at [facility] in the coming weeks for anemia of unknown origin with concern for occult GI bleed. No known history of hemorrhoids. Did not have to strain with BM yesterday. Denies CP, F/C, N/V, abdominal pain, dysuria, urinary frequency, or other pain. Family History: Unchanged from Admission Social History: Unchanged from Admission Past Medical History: Unchanged from Admission Objective Active Medications: Acetaminophen (Tylenol Tab*) 650 mg PO Q6H PRN PRN Reason: PAIN OR FEVER Last Admin: 10/12/17 06:43 Dose: 650 mg Albuterol (Ventolin 2.5 Mg/3 Ml Neb.Brandy*) 2.5 mg INH Q2H PRN PRN Reason: SOB/WHEEZING Albuterol/Ipratropium (Duoneb (Albuterol 2.5 Mg/Ipratropium 0.5 Mg)) 1 neb INH Q4H PRN PRN Reason: SOB/WHEEZING Aspirin (Aspirin Ec Tab*) 81 mg PO DAILY [facility] Last Admin: 10/15/17 09:20 Dose: 81 mg Docusate Sodium (Colace Cap*) 200 mg PO BID [facility] Last Admin: 10/15/17 09:20 Dose: 200 mg Famotidine (Pepcid Tab*) 20 mg PO DAILY [facility] Last Admin: 10/15/17 09:21 Dose: 20 mg Ferrous Sulfate (Ferrous Sulfate Tab*) 325 mg PO DAILY [facility] Last Admin: 10/15/17 09:20 Dose: 325 mg Lactulose (Lactulose*) 30 ml PO DAILY PRN PRN Reason: CONSTIPATION Magnesium Hydroxide (Milk Of Magnesia Liq*) 30 ml PO BID PRN PRN Reason: CONSTIPATION Melatonin (Melatonin) 3 mg PO BEDTIME PRN; Protocol PRN Reason: Sleep Last Admin: 10/14/17 22:08 Dose: 3 mg Methylprednisolone Sodium Succinate (Solu-Medrol 40 Mg) 40 mg IV Q12H [facility] Last Admin: 10/15/17 15:50 Dose: 40 mg Ondansetron HCl (Zofran Odt Tab*) 4 mg PO Q6H PRN PRN Reason: n/v Senna (Senokot Tab*) 1 tab PO BEDTIME PRN PRN Reason: CONSTIPATION Vital Signs - 8 hr 10/15/17 10/15/17 10/15/17 09:06 11:21 15:14 Temperature 98.0 F 97.3 F Pulse Rate 65 67 62 Respiratory 14 18 15 Rate Blood Pressure 149/83 136/63 (mmHg) O2 Sat by Pulse 94 95 92 Oximetry Oxygen Devices in Use Now: High Flow Nasal Cannula Appearance: Patient is a 62yo male who is obese, appears stated age and is sitting in the bed in NAD. Eyes: No Scleral Icterus, PERRLA Ears/Nose/Mouth/Throat: NL Teeth, Lips, Gums, Clear Oropharnyx, Mucous Membranes Moist Neck: NL Appearance and Movements; NL JVP, Trachea Midline Respiratory: Symmetrical Chest Expansion and Respiratory Effort, Clear to Auscultation, - - Diminished. Cardiovascular: NL Sounds; No Murmurs; No JVD, RRR, No Edema Abdominal: NL Sounds; No Tenderness; No Distention, No Hepatosplenomegaly Lymphatic: No Cervical Adenopathy Extremities: No Edema, No Clubbing, Cyanosis, - - B/L LE TMA with leg wraps B/ L. Skin: No Rash or Ulcers, No Nodules or Sclerosis Neurological: Alert and Oriented x 3, NL Sensation, NL Muscle Strength and Tone , - - CN II-XII intact. Result Diagrams: 10/15/17 05:55 10/15/17 05:55 Microbiology and Other Data: Microbiology 10/12/17 15:05 Urine Culture - Preliminary Urine Burkholderia Multivorans Assess/Plan/Problems-Billing Assessment: Patient is a 62yo male with a PMH for Obesity Hypoventilation syndrome, Chronic hypoxic and hypercarbic respiratory failure, Multiple PEs, Morbid obesity, Diastolic HF, who presents with acute on chronic respiratory failure and is slowly improving but still has severely increased O2 requirement and hypercarbia. - Patient Problems (1) Acute on chronic respiratory failure with hypercapnia Current Visit: Yes Status: Acute Code(s): J96.22 - ACUTE AND CHRONIC RESPIRATORY FAILURE WITH HYPERCAPNIA SNOMED Code(s): 6476544908384 Comment: Likely due to both COPD and diastolic CHF exacerbation, complicated by obesity- hypoventilation syndrome Torsemide held due to large volume urine output with likely contraction alkalsosis. BnP normal. Decrease Solumedrol to 40 mg IV q12H, continue PRN Duonebs, and Albuterol as ordered Per pt, his home BiPAP settings are: 20/5, at 5L. Follow up with Dr. Valencia outpatient to discuss Trilogy CO2 still very elevated but improved. Alkalotic. Elevated HCO3. Likely contraction alkalosis. Continue COPD treatment. Continue BiPAP Able to be weaned down to 3L. Uses 3L at home PRN. (2) GERD (gastroesophageal reflux disease) Current Visit: Yes Status: Acute Code(s): K21.9 - GASTRO-ESOPHAGEAL REFLUX DISEASE WITHOUT ESOPHAGITIS SNOMED Code(s): 929284451 Comment: Continue Famotidine (3) Atrial flutter Current Visit: No Status: Acute Code(s): I48.92 - UNSPECIFIED ATRIAL FLUTTER SNOMED Code(s): 1263832 Comment: In NSR. Continue Metoprolol and resume Xarelto. (4) Bilateral lower leg cellulitis Current Visit: No Status: Acute Code(s): L03.116 - CELLULITIS OF LEFT LOWER LIMB; L03.115 - CELLULITIS OF RIGHT LOWER LIMB SNOMED Code(s): 699492331 Comment: Continue dressings and follow outpatient with wound care. (5) Chronic pain Current Visit: No Status: Acute Code(s): G89.29 - OTHER CHRONIC PAIN SNOMED Code(s): 34594321 Comment: Controlled not on medication. (6) Headache Current Visit: No Status: Acute Code(s): R51 - HEADACHE SNOMED Code(s): 36224190 Comment: Severe headache resolved with caffeine. (7) Lymphedema Current Visit: No Status: Acute Code(s): I89.0 - LYMPHEDEMA, NOT ELSEWHERE CLASSIFIED SNOMED Code(s): 645203989 Comment: Follow with wound care outpatient. (8) CHF (congestive heart failure) Current Visit: No Status: Chronic Code(s): I50.9 - HEART FAILURE, UNSPECIFIED SNOMED Code(s): 23912999 Comment: Stable. Chronic diastolic HF Continue Losartan. Contraction alkalosis possibly contributing to hypercarbia. BNP 11. Hold Toresemide due to large volume fluid output and likely contraction alkalosis cause by overdiuresis. Resume based on improvements in Hypercarbia. (9) History of pulmonary embolism Current Visit: No Status: Chronic Code(s): Z86.711 - PERSONAL HISTORY OF PULMONARY EMBOLISM SNOMED Code(s): 613851007 Comment: Xarelto held. Continue when able. Consider workup for CTEPH. (10) UTI (urinary tract infection) Current Visit: No Status: Acute Comment: Repeated culture with Burkholderia. Likely contaminant. Remove Chris. (11) Hematuria Current Visit: Yes Status: Acute Code(s): R31.9 - HEMATURIA, UNSPECIFIED SNOMED Code(s): 28595834 Comment: Seeming large volume, H/H stable. Xarelto held. Would recommend outpatient cystoscopy due to recurrent hematuria. (12) Obesity hypoventilation syndrome Current Visit: No Status: Chronic Code(s): E66.2 - MORBID (SEVERE) OBESITY WITH ALVEOLAR HYPOVENTILATION SNOMED Code(s): 924652895 Comment: Continue BiPAP. Discuss triliogy outpatient with Dr. Valencia. Severe hypercarbia improving. (13) DVT prophylaxis Current Visit: Yes Status: Acute Code(s): MYB5545 - SNOMED Code(s): 124471074 Comment: Xarelto resumed. History of DVT/PE Status and Disposition: -Appreciate PT input -For D/C once pt is at or near baseline O2 needs. Hopeful discharge home with possible need for KATHY.
[2017-10-15] MEDS: Nystatin TOP POWDER* 15 GM BTL TOPICAL SCH (20:35)
[2017-10-15] MEDS: Melatonin 3 MG TAB PO PRN (22:50)
[2017-10-16] MEDS: methylPREDNISolone SOD 40 MG* 1 ML VIAL IV SCH (04:10)
[2017-10-16 06:30] LABS: ABS Basophils 0 10^3/ul (0-0.2); ABS Eosinophils 0 10^3/ul (0-0.6); ABS Lymphocytes 0.6 10^3/ul (1.0-4.8); ABS Monocytes 0.7 10^3/ul (0-0.8); ABS Nucleated RBC 0 10^3/ul; Eosinophil % 0.3 % (0-6); Hematocrit 53 % (42-52); Hemoglobin 17.3 g/dl (14.0-18.0); Lymphocyte % 7.8 % (25-47); Mean Corpuscular HGB Conc 33 g/dl (31-36); Mean Corpuscular Hemoglobin 26 pg (27-31); Mean Corpuscular Volume 81 fL (80-94); Mean Platelet Volume 9.4 um3 (7.4-10.4); Nucleated Red Blood Cells % 0.4; Platelet Count 158 10^3/ul (150-450); Red Blood Count 6.55 10^6/ul (4.00-5.40); Red Cell Distribution Width 17 % (10.5-15); White Blood Count 8.3 10^3/ul (3.5-10.8)
[2017-10-16 06:48] LABS: EGFR Non-African American 85.5 (>60)
[2017-10-16] MEDS: Ferrous Sulfate TAB* 325 MG PO SCH (08:50)
[2017-10-16] MEDS: Aspirin EC TAB* 81 MG TAB.EC PO SCH (08:50)
[2017-10-16] MEDS: Famotidine TAB* 20 MG PO SCH (08:50)
[2017-10-16] MEDS: Docusate CAP* 100 MG PO SCH (08:51)
--- NOTE | 2017-10-16 11:21 | PN ---
Subjective Date of Service: 10/16/17 Interval History: Overall feeling better. He is hesitant to walk on the smooth hospital floors, feels safer with the floor coverings he has at home. Little cough. Family History: Unchanged from Admission Social History: Unchanged from Admission Past Medical History: Unchanged from Admission Objective Active Medications: Acetaminophen (Tylenol Tab*) 650 mg PO Q6H PRN PRN Reason: PAIN OR FEVER Last Admin: 10/12/17 06:43 Dose: 650 mg Albuterol (Ventolin 2.5 Mg/3 Ml Neb.Brandy*) 2.5 mg INH Q2H PRN PRN Reason: SOB/WHEEZING Albuterol/Ipratropium (Duoneb (Albuterol 2.5 Mg/Ipratropium 0.5 Mg)) 1 neb INH Q4H PRN PRN Reason: SOB/WHEEZING Aspirin (Aspirin Ec Tab*) 81 mg PO DAILY [facility] Last Admin: 10/16/17 08:50 Dose: 81 mg Famotidine (Pepcid Tab*) 20 mg PO DAILY [facility] Last Admin: 10/16/17 08:50 Dose: 20 mg Ferrous Sulfate (Ferrous Sulfate Tab*) 325 mg PO DAILY [facility] Last Admin: 10/16/17 08:50 Dose: 325 mg Lactulose (Lactulose*) 30 ml PO DAILY PRN PRN Reason: CONSTIPATION Magnesium Hydroxide (Milk Of Magnesia Liq*) 30 ml PO BID PRN PRN Reason: CONSTIPATION Nystatin (Nystatin Top Powder*) 1 applic TOPICAL BID [facility] Last Admin: 10/15/17 20:35 Dose: 1 applic Ondansetron HCl (Zofran Odt Tab*) 4 mg PO Q6H PRN PRN Reason: n/v Prednisone (Deltasone Tab*) 35 mg PO DAILY [facility] Senna (Senokot Tab*) 1 tab PO BEDTIME PRN PRN Reason: CONSTIPATION Vital Signs - 8 hr 10/16/17 10/16/17 03:49 07:42 Temperature 96.5 F Pulse Rate 56 57 Respiratory 20 13 Rate Blood Pressure 153/81 157/82 (mmHg) O2 Sat by Pulse 99 99 Oximetry Oxygen Devices in Use Now: High Flow Nasal Cannula Appearance: Alert, partly up in bed. In good spirits. Looks comfortable. Eyes: No Scleral Icterus Respiratory: Symmetrical Chest Expansion and Respiratory Effort, Clear to Auscultation, Clear to Percussion Cardiovascular: NL Sounds; No Murmurs; No JVD, RRR, No Edema, - Extremities: No Clubbing, Cyanosis, - - Both lower legs wrapped with elastic bandage. All toes amputated. Skin: No Rash or Ulcers, No Nodules or Sclerosis Neurological: Alert and Oriented x 3, NL Sensation Result Diagrams: 10/16/17 06:14 10/16/17 06:14 Microbiology and Other Data: Microbiology 10/12/17 15:05 Urine Culture - Preliminary Urine Burkholderia Multivorans Assess/Plan/Problems-Billing Assessment: Patient is a 62yo male with a PMH for Obesity Hypoventilation syndrome, Chronic hypoxic and hypercarbic respiratory failure, Multiple PEs, Morbid obesity, Diastolic HF, who presents with acute on chronic respiratory failure and is slowly improving but still has severely increased O2 requirement and hypercarbia. - Patient Problems (1) Acute on chronic respiratory failure with hypercapnia Current Visit: Yes Status: Acute Code(s): J96.22 - ACUTE AND CHRONIC RESPIRATORY FAILURE WITH HYPERCAPNIA SNOMED Code(s): 1440451546601 Comment: Likely due to both COPD and diastolic CHF exacerbation, complicated by obesity- hypoventilation syndrome. Note BNP 11 on 10/14/17. Prednisone taper start 10/17, continue PRN Duonebs, and Albuterol as ordered Per pt, his home BiPAP settings are: 20/5, at 5L. Follow up with Dr. Valencia outpatient to discuss Trilogy CO2 still very elevated but improved. Alkalotic. Elevated HCO3. Repeat BMP 10/18. Depending on COW could consider acetazolamide. Continue COPD treatment, BiPAP.Uses 3L at home PRN. (2) Morbid obesity Current Visit: Yes Status: Acute Code(s): E66.01 - MORBID (SEVERE) OBESITY DUE TO EXCESS CALORIES SNOMED Code(s): 146832505 Comment: BMI 66.1. (3) GERD (gastroesophageal reflux disease) Current Visit: Yes Status: Acute Code(s): K21.9 - GASTRO-ESOPHAGEAL REFLUX DISEASE WITHOUT ESOPHAGITIS SNOMED Code(s): 237938878 Comment: Continue Famotidine (4) Atrial fibrillation Current Visit: No Status: Acute Code(s): I48.91 - UNSPECIFIED ATRIAL FIBRILLATION SNOMED Code(s): 40604744 Comment: - Cont Xarelto.In NSR Status and Disposition: -Appreciate PT input -For D/C once pt is at or near baseline O2 needs. Hopeful discharge home with possible need for KATHY.
[2017-10-16] MEDS: Nystatin TOP POWDER* 15 GM BTL TOPICAL SCH ×2 (12:06→20:43)
[2017-10-16] MEDS: Rivaroxaban TAB(*) 20 MG TAB PO SCH (12:10)
[2017-10-17] MEDS ORDERED: predniSONE TAB* 10 MG PO SCH (09:00)
[2017-10-17] MEDS: Famotidine TAB* 20 MG PO SCH (10:19)
[2017-10-17] MEDS: Rivaroxaban TAB(*) 20 MG TAB PO SCH (10:19)
[2017-10-17] MEDS: Nystatin TOP POWDER* 15 GM BTL TOPICAL SCH ×2 (10:19→20:04)
[2017-10-17] MEDS: Aspirin EC TAB* 81 MG TAB.EC PO SCH (10:19)
[2017-10-17] MEDS: Acetaminophen TAB* 325 MG PO PRN (10:35)
[2017-10-17] MEDS ORDERED: Magnesium CITRATE* 300 ML BTL PO ONE (12:18)
--- NOTE | 2017-10-17 14:29 | PN ---
Subjective Date of Service: 10/17/17 Interval History: Blood with clots in urine, including his last void so far today. No pain. SOB slowy improving. Little cough. Family History: Unchanged from Admission Social History: Unchanged from Admission Past Medical History: Unchanged from Admission Objective Active Medications: Acetaminophen (Tylenol Tab*) 650 mg PO Q6H PRN PRN Reason: PAIN OR FEVER Last Admin: 10/17/17 10:35 Dose: 650 mg Albuterol (Ventolin 2.5 Mg/3 Ml Neb.Brandy*) 2.5 mg INH Q2H PRN PRN Reason: SOB/WHEEZING Albuterol/Ipratropium (Duoneb (Albuterol 2.5 Mg/Ipratropium 0.5 Mg)) 1 neb INH Q4H PRN PRN Reason: SOB/WHEEZING Aspirin (Aspirin Ec Tab*) 81 mg PO DAILY [facility] Last Admin: 10/17/17 10:19 Dose: 81 mg Famotidine (Pepcid Tab*) 20 mg PO DAILY [facility] Last Admin: 10/17/17 10:19 Dose: 20 mg Lactulose (Lactulose*) 30 ml PO DAILY PRN PRN Reason: CONSTIPATION Magnesium Hydroxide (Milk Of Magnesia Liq*) 30 ml PO BID PRN PRN Reason: CONSTIPATION Last Admin: 10/17/17 10:34 Dose: 30 ml Nystatin (Nystatin Top Powder*) 1 applic TOPICAL BID [facility] Last Admin: 10/17/17 10:19 Dose: 1 applic Ondansetron HCl (Zofran Odt Tab*) 4 mg PO Q6H PRN PRN Reason: n/v Prednisone (Deltasone Tab*) 35 mg PO DAILY [facility] Stop: 10/17/17 16:00 Last Admin: 10/17/17 10:18 Dose: 35 mg Prednisone (Deltasone Tab*) 30 mg PO DAILY [facility] Senna (Senokot Tab*) 1 tab PO BEDTIME PRN PRN Reason: CONSTIPATION Last Admin: 10/17/17 10:36 Dose: 1 tab Vital Signs - 8 hr 10/17/17 10/17/17 10/17/17 08:00 08:06 11:40 Temperature 97.5 F 98.5 F Pulse Rate 68 66 Respiratory 16 16 18 Rate Blood Pressure 128/74 140/64 (mmHg) O2 Sat by Pulse 95 96 Oximetry Oxygen Devices in Use Now: Nasal Cannula Appearance: Alert, partly up in bed. In good spirits. Looks comfortable. Eyes: No Scleral Icterus Neck: NL Appearance and Movements; NL JVP, No Thyroid Enlargement, Masses Respiratory: Symmetrical Chest Expansion and Respiratory Effort, Clear to Auscultation, Clear to Percussion Cardiovascular: NL Sounds; No Murmurs; No JVD, RRR, No Edema, - Extremities: No Clubbing, Cyanosis, - - Both lower legs in elastic wrap Neurological: Alert and Oriented x 3, NL Sensation Result Diagrams: 10/16/17 06:14 10/16/17 06:14 Microbiology and Other Data: Microbiology 10/12/17 15:05 Urine Culture - Preliminary Urine Burkholderia Multivorans Assess/Plan/Problems-Billing Assessment: Patient is a 62yo male with a PMH for Obesity Hypoventilation syndrome, Chronic hypoxic and hypercarbic respiratory failure, Multiple PEs, Morbid obesity, Diastolic HF, who presents with acute on chronic respiratory failure and is slowly improving but still has severely increased O2 requirement and hypercarbia. - Patient Problems (1) Acute on chronic respiratory failure with hypercapnia Current Visit: Yes Status: Acute Code(s): J96.22 - ACUTE AND CHRONIC RESPIRATORY FAILURE WITH HYPERCAPNIA SNOMED Code(s): 9675705979408 Comment: Likely due to both COPD and diastolic CHF exacerbation, complicated by obesity- hypoventilation syndrome. Note BNP 11 on 10/14/17. Prednisone taper start 10/17, continue PRN Duonebs, and Albuterol as ordered Per pt, his home BiPAP settings are: 20/5, at 5L. Follow up with Dr. Valencia outpatient to discuss Trilogy CO2 still very elevated but improved. Alkalotic. Elevated HCO3. Repeat BMP 10/18. Depending on CO2 could consider more acetazolamide. Continue COPD treatment, BiPAP. Uses 3L O2 at home PRN. (2) Morbid obesity Current Visit: Yes Status: Acute Code(s): E66.01 - MORBID (SEVERE) OBESITY DUE TO EXCESS CALORIES SNOMED Code(s): 613024942 Comment: BMI 66.1. (3) GERD (gastroesophageal reflux disease) Current Visit: Yes Status: Acute Code(s): K21.9 - GASTRO-ESOPHAGEAL REFLUX DISEASE WITHOUT ESOPHAGITIS SNOMED Code(s): 252647611 Comment: Continue Famotidine (4) Atrial fibrillation Current Visit: No Status: Acute Code(s): I48.91 - UNSPECIFIED ATRIAL FIBRILLATION SNOMED Code(s): 81840203 Comment: In NSR. Hold rivaroxaban while hematuria persists. (5) Hematuria Current Visit: Yes Status: Acute Code(s): R31.9 - HEMATURIA, UNSPECIFIED SNOMED Code(s): 79220334 Comment: Hold rivaroxaban while hematuria persists. CBC, BMP, CK now. CBC, BMP 10/18. Status and Disposition: -Appreciate PT input -For D/C once pt is at or near baseline O2 needs. Hopeful discharge home with possible need for KATHY.
[2017-10-17 14:50] LABS: ABS Basophils 0 10^3/ul (0-0.2); ABS Eosinophils 0 10^3/ul (0-0.6); ABS Lymphocytes 0.6 10^3/ul (1.0-4.8); ABS Monocytes 0.8 10^3/ul (0-0.8); ABS Neutrophils 9.1 10^3/ul (1.5-7.7); ABS Nucleated RBC 0 10^3/ul; Eosinophil % 0.3 % (0-6); Hematocrit 52 % (42-52); Hemoglobin 16.8 g/dl (14.0-18.0); Lymphocyte % 5.4 % (25-47); Mean Corpuscular HGB Conc 32 g/dl (31-36); Mean Corpuscular Hemoglobin 26 pg (27-31); Mean Corpuscular Volume 81 fL (80-94); Mean Platelet Volume 10.2 um3 (7.4-10.4); Nucleated Red Blood Cells % 0.1; Platelet Count 151 10^3/ul (150-450); Red Blood Count 6.46 10^6/ul (4.00-5.40); Red Cell Distribution Width 17 % (10.5-15); White Blood Count 10.5 10^3/ul (3.5-10.8)
[2017-10-17 15:04] LABS: EGFR Non-African American 85.5 (>60)
[2017-10-18 06:50] LABS: ABS Basophils 0 10^3/ul (0-0.2); ABS Eosinophils 0.1 10^3/ul (0-0.6); ABS Lymphocytes 1.8 10^3/ul (1.0-4.8); ABS Monocytes 1.1 10^3/ul (0-0.8); ABS Neutrophils 7.4 10^3/ul (1.5-7.7); ABS Nucleated RBC 0 10^3/ul; Eosinophil % 1.4 % (0-6); Hematocrit 52 % (42-52); Hemoglobin 16.6 g/dl (14.0-18.0); Lymphocyte % 17.2 % (25-47); Mean Corpuscular HGB Conc 32 g/dl (31-36); Mean Corpuscular Hemoglobin 26 pg (27-31); Mean Corpuscular Volume 81 fL (80-94); Mean Platelet Volume 10.1 um3 (7.4-10.4); Nucleated Red Blood Cells % 0.2; Platelet Count 158 10^3/ul (150-450); Red Blood Count 6.38 10^6/ul (4.00-5.40); Red Cell Distribution Width 17 % (10.5-15); White Blood Count 10.5 10^3/ul (3.5-10.8)
[2017-10-18 07:02] LABS: EGFR Non-African American 86.6 (>60)
--- NOTE | 2017-10-18 08:23 | PN ---
Subjective Date of Service: 10/18/17 Interval History: Less SOB. As of last evening has gross hematuria, did not void yet today. No pain. Family History: Unchanged from Admission Social History: Unchanged from Admission Past Medical History: Unchanged from Admission Objective Active Medications: Acetaminophen (Tylenol Tab*) 650 mg PO Q6H PRN PRN Reason: PAIN OR FEVER Last Admin: 10/17/17 10:35 Dose: 650 mg Albuterol (Ventolin 2.5 Mg/3 Ml Neb.Brandy*) 2.5 mg INH Q2H PRN PRN Reason: SOB/WHEEZING Albuterol/Ipratropium (Duoneb (Albuterol 2.5 Mg/Ipratropium 0.5 Mg)) 1 neb INH Q4H PRN PRN Reason: SOB/WHEEZING Aspirin (Aspirin Ec Tab*) 81 mg PO DAILY [facility] Last Admin: 10/17/17 10:19 Dose: 81 mg Famotidine (Pepcid Tab*) 20 mg PO DAILY [facility] Last Admin: 10/17/17 10:19 Dose: 20 mg Lactulose (Lactulose*) 30 ml PO DAILY PRN PRN Reason: CONSTIPATION Magnesium Hydroxide (Milk Of Magnesia Liq*) 30 ml PO BID PRN PRN Reason: CONSTIPATION Last Admin: 10/17/17 10:34 Dose: 30 ml Nystatin (Nystatin Top Powder*) 1 applic TOPICAL BID [facility] Last Admin: 10/17/17 20:04 Dose: 1 applic Ondansetron HCl (Zofran Odt Tab*) 4 mg PO Q6H PRN PRN Reason: n/v Prednisone (Deltasone Tab*) 30 mg PO DAILY [facility] Senna (Senokot Tab*) 1 tab PO BEDTIME PRN PRN Reason: CONSTIPATION Last Admin: 10/17/17 10:36 Dose: 1 tab Vital Signs - 8 hr 10/18/17 10/18/17 03:51 07:37 Temperature 97.9 F 98.2 F Pulse Rate 63 59 Respiratory 18 18 Rate Blood Pressure 136/68 123/63 (mmHg) O2 Sat by Pulse 100 97 Oximetry Oxygen Devices in Use Now: Nasal Cannula, High Flow Nasal Cannula Appearance: Alert, partly up in bed. In good spirits. Looks comfortable. Eyes: No Scleral Icterus Neck: NL Appearance and Movements; NL JVP, No Thyroid Enlargement, Masses Respiratory: Symmetrical Chest Expansion and Respiratory Effort, Clear to Auscultation, Clear to Percussion, Clear to Palpation Cardiovascular: NL Sounds; No Murmurs; No JVD, RRR, No Edema, - Extremities: No Edema, No Clubbing, Cyanosis, - - Both lower legs in elastic wrap Skin: No Rash or Ulcers Neurological: Alert and Oriented x 3, NL Sensation Result Diagrams: 10/18/17 06:40 10/18/17 06:40 Microbiology and Other Data: Microbiology 10/12/17 15:05 Urine Culture - Preliminary Urine Burkholderia Multivorans Assess/Plan/Problems-Billing Assessment: Patient is a 62yo male with a PMH for Obesity Hypoventilation syndrome, Chronic hypoxic and hypercarbic respiratory failure, Multiple PEs, Morbid obesity, Diastolic HF, who presents with acute on chronic respiratory failure and is slowly improving but still has severely increased O2 requirement and hypercarbia. - Patient Problems (1) Acute on chronic respiratory failure with hypercapnia Current Visit: Yes Status: Acute Code(s): J96.22 - ACUTE AND CHRONIC RESPIRATORY FAILURE WITH HYPERCAPNIA SNOMED Code(s): 1076105963387 Comment: Likely due to both COPD and diastolic CHF exacerbation, complicated by obesity- hypoventilation syndrome. Note BNP 11 on 10/14/17. Prednisone taper started 10/17, continue PRN Duonebs, and Albuterol as ordered Per pt, his home BiPAP settings are: 20/5, at 5L. Follow up with Dr. Valencia outpatient to discuss Trilogy Re-start acetazolamide 10/18 as his CO2 is 45. Start KCL 20 mew po tid 10/18. Continue COPD treatment, BiPAP. Uses 3L O2 at home PRN. (2) Morbid obesity Current Visit: Yes Status: Acute Code(s): E66.01 - MORBID (SEVERE) OBESITY DUE TO EXCESS CALORIES SNOMED Code(s): 247594999 Comment: BMI 66.1. (3) GERD (gastroesophageal reflux disease) Current Visit: Yes Status: Acute Code(s): K21.9 - GASTRO-ESOPHAGEAL REFLUX DISEASE WITHOUT ESOPHAGITIS SNOMED Code(s): 881416397 Comment: Continue Famotidine (4) Atrial fibrillation Current Visit: No Status: Acute Code(s): I48.91 - UNSPECIFIED ATRIAL FIBRILLATION SNOMED Code(s): 98528691 Comment: In NSR. Hold rivaroxaban while hematuria persists. (5) Hematuria Current Visit: Yes Status: Acute Code(s): R31.9 - HEMATURIA, UNSPECIFIED SNOMED Code(s): 72074893 Comment: Hold rivaroxaban while hematuria persists. Requested records from [facility]. CT scan w/o shoed punctate calcifications L kidney. Dr. Alvarenga will see the patient in consultation Friday 10/20. NPO after MN 10/19. Status and Disposition: -Appreciate PT input -For D/C once pt is at or near baseline O2 needs. Hopeful discharge home with possible need for KATHY.
[2017-10-18] MEDS ORDERED: predniSONE TAB* 10 MG PO SCH (09:00)
[2017-10-18] MEDS: Potassium Chlor TAB* 20 MEQ TAB.ER PO SCH ×3 (09:36→20:57)
[2017-10-18] MEDS: Aspirin EC TAB* 81 MG TAB.EC PO SCH (09:36)
[2017-10-18] MEDS: acetaZOLAMIDE TAB* 250 MG PO SCH ×2 (09:36→20:57)
[2017-10-18] MEDS: Famotidine TAB* 20 MG PO SCH (09:36)
--- NOTE | 2017-10-18 09:50 | RAD ---
CLINICAL HISTORY: Hematuria. Relevant history includes renal stones with renal stone extraction. COMPARISON: Most recent comparison CT examination is dated August 05, 2017 TECHNIQUE: Noncontrast CT examination of the abdomen and pelvis from the lung bases through the initial tuberosities. FINDINGS: VISUALIZED LUNG BASES: There are linear, pleural-based densities at the bilateral lung bases most consistent with atelectasis. Otherwise the visualized lung bases are grossly clear. There is no pleural effusion. ABDOMEN AND PELVIS: Evaluation of the solid organs and vasculature is limited without intravenous contrast. The liver, pancreas and adrenal glands are grossly normal in appearance. Hyperattenuating gallstones are noted in the dependent gallbladder. The homogenously attenuating spleen measures 15.9 cm in greatest axial dimension similar to the previous CT examination. At the lower pole collecting system left kidney there are punctate calcifications. There is no hydronephrosis bilaterally. No renal calculi are seen in either ureter or the urinary bladder. Evaluation of the gastrointestinal tract is limited without oral contrast. The small and large bowel are not distended.The patient's normal appendix is identified in the right lower quadrant measuring 6 mm in diameter (coronal image 56). There is no gross retroperitoneal or mesenteric lymphadenopathy. The pelvic viscera is normal in appearance. The abdominal aorta and iliac arteries are normal in course and diameter. Degenerative changes include multilevel loss of intervertebral disc height involving the lower thoracic and lumbar spine.There are no sinister bone lesions. IMPRESSION: 1. Nonobstructing renal calculi in the left kidney without signs of obstructive uropathy bilaterally. 2. Cholelithiasis without signs of biliary obstruction or acute inflammatory change. 3. There are additional chronic and degenerative changes described in the body the report.
[2017-10-18] MEDS: Nystatin TOP POWDER* 15 GM BTL TOPICAL SCH ×2 (11:20→21:29)
[2017-10-19] MEDS: Potassium Chlor TAB* 20 MEQ TAB.ER PO SCH ×4 (07:18→21:54)
[2017-10-19] MEDS: Famotidine TAB* 20 MG PO SCH (09:07)
[2017-10-19] MEDS: Aspirin EC TAB* 81 MG TAB.EC PO SCH (09:07)
[2017-10-19] MEDS: acetaZOLAMIDE TAB* 250 MG PO SCH ×2 (09:07→21:54)
[2017-10-19] MEDS: predniSONE TAB* 10 MG PO SCH (09:07)
[2017-10-19] MEDS: Nystatin TOP POWDER* 15 GM BTL TOPICAL SCH ×2 (09:08→21:56)
[2017-10-19 15:47] LABS: Urine Appearance Clear; Urine Blood Negative (Negative); Urine Color Yellow; Urine Ketones Negative (Negative); Urine Protein Negative (Negative); Urine Red Blood Cell Absent (Absent); Urine Specific Gravity 1.008 (1.010-1.030); Urine Urobilinogen Negative (Negative); Urine White Blood Cell Trace(0-5/hpf) (Absent)
[2017-10-19 16:08] LABS: EGFR Non-African American 75.7 (>60)
--- NOTE | 2017-10-19 18:46 | PN ---
Subjective Date of Service: 10/19/17 Interval History: attests to yellow urine today. breathing much better. 3L eating well. planned cysto tomorrow. denies dysuria Family History: Unchanged from Admission Social History: Unchanged from Admission Past Medical History: Unchanged from Admission Objective Active Medications: Acetaminophen (Tylenol Tab*) 650 mg PO Q6H PRN PRN Reason: PAIN OR FEVER Last Admin: 10/17/17 10:35 Dose: 650 mg Acetazolamide (Diamox Tab*) 250 mg PO BID [facility] Last Admin: 10/19/17 09:07 Dose: 250 mg Albuterol (Ventolin 2.5 Mg/3 Ml Neb.Brandy*) 2.5 mg INH Q2H PRN PRN Reason: SOB/WHEEZING Albuterol/Ipratropium (Duoneb (Albuterol 2.5 Mg/Ipratropium 0.5 Mg)) 1 neb INH Q4H PRN PRN Reason: SOB/WHEEZING Aspirin (Aspirin Ec Tab*) 81 mg PO DAILY [facility] Last Admin: 10/19/17 09:07 Dose: 81 mg Famotidine (Pepcid Tab*) 20 mg PO DAILY [facility] Last Admin: 10/19/17 09:07 Dose: 20 mg Lactulose (Lactulose*) 30 ml PO DAILY PRN PRN Reason: CONSTIPATION Magnesium Hydroxide (Milk Of Magnesia Liq*) 30 ml PO BID PRN PRN Reason: CONSTIPATION Last Admin: 10/17/17 10:34 Dose: 30 ml Nystatin (Nystatin Top Powder*) 1 applic TOPICAL BID [facility] Last Admin: 10/19/17 09:08 Dose: 1 applic Ondansetron HCl (Zofran Odt Tab*) 4 mg PO Q6H PRN PRN Reason: n/v Potassium Chloride (Klor Con Er Tab*) 20 meq PO TID [facility] Last Admin: 10/19/17 14:45 Dose: 20 meq Prednisone (Deltasone Tab*) 25 mg PO DAILY [facility] Last Admin: 10/19/17 09:07 Dose: 25 mg Senna (Senokot Tab*) 1 tab PO BEDTIME PRN PRN Reason: CONSTIPATION Last Admin: 10/17/17 10:36 Dose: 1 tab Torsemide (Demadex*) 20 mg PO DAILY [facility] Vital Signs - 8 hr 08/07/18 08/07/18 11:28 15:35 Temperature 98.1 F 98.3 F Pulse Rate 60 62 Respiratory 16 18 Rate Blood Pressure 122/57 111/62 (mmHg) O2 Sat by Pulse 99 95 Oximetry Oxygen Devices in Use Now: Nasal Cannula Appearance: NAD Eyes: No Scleral Icterus Ears/Nose/Mouth/Throat: NL Teeth, Lips, Gums, Mucous Membranes Moist Neck: NL Appearance and Movements; NL JVP Respiratory: Symmetrical Chest Expansion and Respiratory Effort, Clear to Auscultation Cardiovascular: RRR - 3/6 SHAMIR loudest LUSB, no rubs/gallops. Abdominal: - - soft, nontender, obese. Extremities: No Edema, - - b/l wrapped. b/l TMA. no edema. Neurological: Alert and Oriented x 3, NL Sensation, NL Muscle Strength and Tone Nutrition: Taking PO's Result Diagrams: 10/18/17 06:40 10/19/17 14:43 Additional Lab and Data: Laboratory Results - last 24 hr 10/19/17 10/19/17 14:43 15:29 Sodium 133 L Potassium 3.6 Chloride 91 L Carbon Dioxide 35 H Anion Gap 7 BUN 33 H Creatinine 1.00 Est GFR ( Amer) 91.6 Est GFR (Non-Af Amer) 75.7 BUN/Creatinine Ratio 33.0 H Glucose 200 H Calcium 9.6 Urine Color Yellow Urine Appearance Clear Urine pH 8.0 Ur Specific [place] 1.008 L Urine Protein Negative Urine Ketones Negative Urine Blood Negative Urine Nitrate Negative Urine Bilirubin Negative Urine Urobilinogen Negative Ur Leukocyte Esterase Trace A Urine WBC (Auto) Trace(0-5/hpf) Urine RBC (Auto) Absent Ur Squamous Epith Cells Present A Urine Bacteria Absent Urine Glucose Negative Microbiology and Other Data: Microbiology 10/14/17 20:35 Urine Urine Culture - Final Escherichia Coli 10/12/17 15:05 Urine Urine Culture - Final Burkholderia Multivorans Assess/Plan/Problems-Billing Assessment: 62yo male with a PMH for Obesity Hypoventilation syndrome, Chronic hypoxic and hypercarbic respiratory failure, Multiple PEs, Morbid obesity, Diastolic CHF, mild-moderate TVR, who presents with acute on chronic respiratory failure ( resolved). Present issue is hematuria (awaiting cystoscopy 10/20/17) - Patient Problems (1) Acute on chronic respiratory failure with hypercapnia Current Visit: Yes Status: Acute Code(s): J96.22 - ACUTE AND CHRONIC RESPIRATORY FAILURE WITH HYPERCAPNIA SNOMED Code(s): 7841927366931 Comment: resolved. 2/2 diastolic CHF exacerbation and obesity- hypoventilation syndrome. Note BNP 11 on 10/14/17. Prednisone taper started 10/17, continue PRN Duonebs, and Albuterol as ordered Per pt, his home BiPAP settings are: 20/5, at 5L. Follow up with Dr. Valencia outpatient to discuss Trilogy Re-started acetazolamide 10/18 as his CO2 is 45. Start KCL 20 mew po tid 10/18. Continue COPD treatment, BiPAP. Uses 3L O2 at home PRN. (2) DVT prophylaxis Current Visit: Yes Status: Acute Code(s): SUH4869 - SNOMED Code(s): 586229550 Comment: Xarelto currently held given hematuria, History of DVT/PE (3) Hematuria Current Visit: Yes Status: Acute Code(s): R31.9 - HEMATURIA, UNSPECIFIED SNOMED Code(s): 83977071 Comment: Hold rivaroxaban while hematuria persists. CT scan w/o showed punctate calcifications L kidney. Dr. Alvarenga plans cystoscopy Friday 10/20. no need for npo. (4) Morbid obesity Current Visit: Yes Status: Acute Code(s): E66.01 - MORBID (SEVERE) OBESITY DUE TO EXCESS CALORIES SNOMED Code(s): 210269460 Comment: BMI 66.1. (5) Chronic diastolic heart failure Current Visit: No Status: Acute Code(s): I50.32 - CHRONIC DIASTOLIC ( CONGESTIVE) HEART FAILURE SNOMED Code(s): 554755240 Comment: - restarted home torsemide 20mg daily. out of acute exacerbation now. (6) Morbid obesity with BMI of 70 and over, adult Current Visit: No Status: Acute Code(s): E66.01 - MORBID (SEVERE) OBESITY DUE TO EXCESS CALORIES; Z68.45 - BODY MASS INDEX (BMI) 70 OR GREATER, ADULT SNOMED Code(s): 258042655 Comment: Diagnosis noted. Status and Disposition: medicine inpatient. Hopeful discharge home
--- NOTE | 2017-10-19 21:27 | CONS ---
CONSULTATION REPORT: DATE OF CONSULT: 10/19/17 LOCATION: Mr. Shaefr is in [address] [place] [address]. HISTORY OF PRESENT ILLNESS: Mr. Shafer is a 62-year-old white male who is very morbidly obese and is bed ridden because of his obesity. He has history of renal calculus disease and was admitted a few days ago with suspected pulmonary embolism. He was started on anticoagulation and recurrent episodes of gross painless hematuria were noted. The episodes were not associated with any flank pain or any voiding symptoms. A consultation was obtained by Dr. Guerrero. Mr. Shafer' history goes back to about a year and a half ago when he presented to the emergency room with an obstructing 1.2 cm calculus at the left ureteropelvic junction. He was transferred to the [facility] where he had urgent placement of an ureteral stent. The stent apparently became calcified and he required another procedure with ureteroscopy and laser lithotripsy of a left renal calculus. He ultimately did well. He did not have any recurrent symptoms of renal colic. He has no obstructive voiding symptoms and no symptoms of urinary tract infections. Because of the episodes of gross hematuria, he had a noncontrast CT of the abdomen and pelvis. It showed normal kidneys, small non-obstructing left renal calculi, no solid masses in the kidneys. The ureters looked normal and were non dilated. No abnormalities noted in the bladder. The patient is a nonsmoker. He had a Chris catheter placed during this admission, and the catheter removed about 3 days ago. He has been voiding well without any difficulty. PLAN: He needs to have a cystoscopy to rule out any bladder lesions causing the gross hematuria. The plan is to perform a flexible cystoscopy under local anesthesia tomorrow. I discussed the above plans with the patient. [id number]/[facility] #: [id number] [facility] CENTERShanta
[2017-10-20 07:09] LABS: EGFR Non-African American 105.5 (>60)
[2017-10-20] MEDS ORDERED: Lidocaine 2% JELLY* 20 ML (for OR use) ONE (07:53)
[2017-10-20] MEDS ORDERED: Torsemide TAB* 20 MG PO SCH (09:00)
[2017-10-20] MEDS: acetaZOLAMIDE TAB* 250 MG PO SCH (11:17)
[2017-10-20] MEDS: predniSONE TAB* 10 MG PO SCH (11:17)
[2017-10-20] MEDS: Potassium Chlor TAB* 20 MEQ TAB.ER PO SCH ×2 (11:18→14:51)
[2017-10-20] MEDS: Nystatin TOP POWDER* 15 GM BTL TOPICAL SCH (11:18)
[2017-10-20] MEDS: Famotidine TAB* 20 MG PO SCH (11:18)
[2017-10-20] MEDS: Aspirin EC TAB* 81 MG TAB.EC PO SCH (11:18)
[2017-10-20 11:58] VITALS: BP 141/70
--- NOTE | 2017-10-20 22:26 | OP ---
DATE OF OPERATION: 10/20/17 - ROOM #416 DATE OF : 55 SURGEON: Dawson Alvarenga MD PRE-OP DIAGNOSIS: Recurrent episodes of gross hematuria. POST-OP DIAGNOSIS: Edema of trigone and posterior bladder neck. OPERATIVE PROCEDURE: Cystoscopy. INDICATIONS FOR PROCEDURE: Mr. Shafer is a 62-year-old white male who is morbidly obese, and who was admitted with suspected pulmonary emboli. He was started on anticoagulated and gross hematuria was noted. He had a Chris catheter in place, which was removed a few days ago. The patient's past history is relevant for left renal calculi, which required several endoscopic procedures. Recent noncontrast CT of the abdomen and pelvis showed minimal residual left renal calculi, no renal masses and no hydronephrosis and no ureteral dilatation. The patient has minimal voiding symptoms. He has history of renal calculus disease. Because of the gross hematuria, anticoagulation was discontinued, and the hematuria resolved. Because of the above history, cystoscopy is being performed to rule out bladder lesions. PATHOLOGY AT CYSTOSCOPY: The penile and bulbar urethra looked normal. There were no strictures noted. The prostatic urethra measured 2.5 cm in length and there was minimal degree of prostate enlargement and obstruction. Examination of the bladder showed edema, hyperemia and ecchymosis in the trigone and the posterior bladder neck and posterior bladder wall consistent with traumatic effect of the recent Chris catheter. The ureteral orifices looked normal. The left ureteral orifices looked somewhat patulous, probably secondary to the chronic stenting and ureteroscopies that were done in the past. The rest of the bladder wall looked normal. There were no suspicious bladder lesions seen. No calculi or diverticula were noted. DESCRIPTION OF PROCEDURE: With the patient in the supine position, he was prepped and draped for cystoscopy. Xylocaine jelly was instilled into the urethra. Flexible cystoscope was introduced under direct vision inside the urethra, the bladder was entered and carefully inspected. The above findings were noted. The cystoscope was then removed. The patient tolerated the procedure well and transferred back to his room. So far the only explanation for the hematuria is the traumatic effect of the Chris catheter on his bladder mucosa. The area seems healed. Anticoagulation can be restarted. I will see him back if the gross hematuria recurs and persists. [id number]/[facility] #: [id number] [facility]
--- NOTE | 2017-10-21 22:29 | DS ---
DISCHARGE SUMMARY: DATE OF ADMISSION: 10/09/17 DATE OF DISCHARGE: 10/20/17 ADMITTING PROVIDER: Maurice Melvin MD PRIMARY CARE PHYSICIAN: Javier Gilliland MD HOSPITALIST DURING ADMISSION: Multiple, but on day of discharge Chalo Delaney MD CHIEF COMPLAINT: Shortness of breath, chest pain. PRINCIPAL DIAGNOSES: [id number] hypoxic/hypercapnic respiratory failure secondary to obesity hypoventilation syndrome and diastolic heart failure; hematuria as a complication from Guzmán insertion. HISTORY OF PRESENT ILLNESS AND HOSPITAL COURSE: Franklyn Shafer is a 62-year-old male with past medical history super morbid obesity with resultant obesity hypoventilation syndrome with chronic hypoxic/hypercapnic respiratory failure ( 2 L nasal cannula at home, BiPAP nightly), DVT, PE, paroxysmal atrial fib on Xarelto, chronic diastolic CHF, PAOD presented with 3 days of severe shortness of breath. Please see H&P of Maurice Melvin for full details. He initially "did not think too much of" his severe shortness of breath and did not contact his primary care provider. The night prior to the morning of admission, the shortness of breath became "much worse" and was accompanied by left parasternal chest pressure. He denied any nausea, vomiting, sweating, palpitations, or lightheadedness. It is nonexertional, but radiated into his left neck. He denied any cough, congestion, fevers, or chills. In the [facility] emergency room, he had had an ABG that was significant for hypercapnic respiratory failure with pH of 7.23, pCO2 of 113, pO2 of 126, bicarb of 36.0. He had a CT chest angiogram, which was limited due to his body habitus, but no central pulmonary emboli were identified. There were scattered ground-glass opacities, unchanged and bibasilar infiltrate and small bilateral pleural effusions. The patient was initially managed in the intensive care unit with BiPAP and aggressive diuresis and diuresed net negative 4 L on hospital day #2. His weights are sometimes difficult to interpret given his body habitus and multiple bed weights being used, but of note the listed weights on admission range between 219 and 220 kg and the lowest rates recorded during the hospitalization were 198 kg, though the most recent one was 209 kg on 10/16/17. Additional studies included chest x-ray on admission, which demonstrated enlarged cardiac silhouette with suspected mild vascular congestion. His initial BNP was 140 on admission. He was without leukocytosis throughout. His initial D-dimer was 200. Patient had a Guzmán placed given his mass diuresis in the ICU and the patient was then noted to have some gross hematuria. On , his Xarelto was held and Dr. Alvarenga of Urology was eventually consulted. He had an ultrasound of his kidneys and bladder, which was normal on 10/12. CT abdomen, pelvis on 10/18 without contrast showed nonobstructing renal calculi in the left kidney without signs of obstructive uropathy bilaterally, cholelithiasis without signs of biliary obstruction or acute inflammatory change. Dr. Alvarenga performed cystoscopy on 10/20, which demonstrated edema of the trigone and posterior bladder neck consistent with traumatic effect of Guzmán catheter. No suspicious bladder lesions were seen. Dr. Alvarenga recommended reinitiation of his anticoagulation, this was done. The patient has for several days been back to his baseline respiratory status, Diamox was used for a few days given his elevated bicarbonate levels (peaked at 48 on 10/14 , on day of discharge was 33, however, this will not be continued on discharge) . The patient was back at his baseline chronic hypoxic/hypercapnic respiratory failure for several days. The patient was stable for discharge and physical therapy agreed that he was at his baseline functional status and was able to transfer to his wheelchair. The patient will need to follow with his primary care physician, Dr. Javier Gilliland within 5 days of discharge. The patient noted that his lower extremities, which have chronic lymphedema for which he has recently been following up with [facility] after referral from the [facility] (Dr. Delaney) seems do be doing well. He follows with Dr. Marin there and has recently completed a course of Bactrim prior to coming into the hospital. He was not given antibiotics throughout the course. He did have of note 2 positive urine cultures (from the guzmán) from 10/12/17 and 10/14/17 with Burkholderia and E. coli respectively. He was asymptomatic and on repeat urinalysis on 10/19/17, he had trace leukocyte esterase and otherwise normal urinalysis (slightly low specific gravity of 1.008) and no more evidence of hematuria. His urine culture associated with that should be followed up on. The patient was also given IV Solu-Medrol initially during his stay and he was on a prednisone taper throughout his course which will be concluding as an outpatient. DISCHARGE MEDICATIONS: Include: 1. Albuterol 2 puffs inhaled q.4 hours p.r.n. 2. Aspirin 81 mg daily. 3. Benadryl 25 mg p.o. q.6 hours p.r.n. 4. Docusate 100 mg p.o. b.i.d. 5. Ferrous sulfate 325 mg p.o. daily. 6. Nitroglycerin 0.4 mg sublingual q.5 minutes p.r.n. 7. Potassium chloride 20 mEq p.o. b.i.d. (new). 8. Prednisone 10 mg tablets for total 9 tabs to be taken 20 mg for 3 days and 10 mg for 3 days and then off (new). 9. Xarelto 20 mg p.o. daily. 10. Senokot 1 tab p.o. q.12 hours p.r.n. 11. Torsemide 20 mg p.o. daily. DISCHARGE DIET: Heart healthy, unchanged. ACTIVITY LEVEL: No restrictions. FOLLOWUP: The patient has a followup appointment with PCP, Javier Gilliland on at 1 p.m. He should follow up with Dr. Calin Marin in the [facility] as well as [facility]. If hematuria redevelops, he should follow up with Dr. Dawson Alvarenga. Close monitoring of his weight should be done as an outpatient given his diastolic heart failure exacerbation. Requests are made to record his weight on day of discharge, it does not look that was documented and they are variations in his chart given his morbid obesity and likely use of more inaccurate bed weights on occasion. Losing weight so that he can at least stand on a scale at home would greatly help management of his diastolic heart failure. TIME SPENT: Time spent on discharge 45 minutes. [id number]/[facility] #: [id number] KIET
== END 2017-10-20 16:20 | disposition home or self-care (01) | DRG 194 ==
LOC: ED 02:36 → ICU 04:40 → MED 10-11 02:00
PROVIDERS: ADMIT Hospitalist; ATTEND Internal Medicine
PROC: 0T9B70Z Drainage of Bladder with Drainage Device, Via Natural or Artificial Opening (ICD-10-PCS; principal; 2017-10-09)
PROC: 5A09457 Assistance with Respiratory Ventilation, 24-96 Consecutive Hours, Continuous Positive Airway Pressure (ICD-10-PCS; 2017-10-09)
PROC: 0TJB8ZZ Inspection of Bladder, Via Natural or Artificial Opening Endoscopic (ICD-10-PCS; 2017-10-20)
DX: I11.0 Hypertensive heart disease with heart failure (principal); J96.21 Acute and chronic respiratory failure with hypoxia; J96.22 Acute and chronic respiratory failure with hypercapnia; E66.2 Morbid (severe) obesity with alveolar hypoventilation; I48.92 Unspecified atrial flutter; L03.115 Cellulitis of right lower limb; L03.116 Cellulitis of left lower limb; N39.0 Urinary tract infection, site not specified; Z68.44 Body mass index [BMI] 60.0-69.9, adult; I77.9 Disorder of arteries and arterioles, unspecified; I87.8 Other specified disorders of veins; I50.33 Acute on chronic diastolic (congestive) heart failure; I48.0 Paroxysmal atrial fibrillation; I25.10 Atherosclerotic heart disease of native coronary artery without angina pectoris; E11.51 Type 2 diabetes mellitus with diabetic peripheral angiopathy without gangrene; J44.9 Chronic obstructive pulmonary disease, unspecified; K42.9 Umbilical hernia without obstruction or gangrene; K59.00 Constipation, unspecified; M19.90 Unspecified osteoarthritis, unspecified site; E11.40 Type 2 diabetes mellitus with diabetic neuropathy, unspecified; F32.9 Major depressive disorder, single episode, unspecified; K21.9 Gastro-esophageal reflux disease without esophagitis; K80.20 Calculus of gallbladder without cholecystitis without obstruction; B96.20 Unspecified Escherichia coli [E. coli] as the cause of diseases classified elsewhere; G89.29 Other chronic pain; R51 Headache; I89.0 Lymphedema, not elsewhere classified; N20.0 Calculus of kidney; R31.0 Gross hematuria; B96.89 Other specified bacterial agents as the cause of diseases classified elsewhere; N40.0 Benign prostatic hyperplasia without lower urinary tract symptoms; N13.9 Obstructive and reflux uropathy, unspecified; T83.098A Other mechanical complication of other urinary catheter, initial encounter; Y84.8 Other medical procedures as the cause of abnormal reaction of the patient, or of later complication, without mention of misadventure at the time of the procedure; Y92.239 Unspecified place in hospital as the place of occurrence of the external cause; Z86.718 Personal history of other venous thrombosis and embolism; Z86.711 Personal history of pulmonary embolism; Z99.81 Dependence on supplemental oxygen; Z89.432 Acquired absence of left foot; Z89.431 Acquired absence of right foot; Z87.442 Personal history of urinary calculi; Z95.0 Presence of cardiac pacemaker; Z82.49 Family history of ischemic heart disease and other diseases of the circulatory system; Z80.3 Family history of malignant neoplasm of breast; Z80.1 Family history of malignant neoplasm of trachea, bronchus and lung; Z91.030 Bee allergy status; Z91.018 Allergy to other foods; Z87.01 Personal history of pneumonia (recurrent); Z83.3 Family history of diabetes mellitus; Z74.01 Bed confinement status; Z79.82 Long term (current) use of aspirin; Z79.01 Long term (current) use of anticoagulants
CPT/HCPCS: 36415; 36600; 71045; 71275; 74176; 76770; 80048; 80053; 81003; 81015; 82550; 82803; 83605; 83735; 83880; 84100; 84484; 85025; 85027; 85379; 87077; 87086; 87184; 87186; 93005; 94640; 94660; 99285; A9270-GY; G8978-GP-CH; G8979-GP-CH; J1940; J2920; J2930; J7512; Q9967

== ENCOUNTER 2017-11-19 15:12 | Inpatient (IN) | payer MEDICAID ==
[2017-11-19] MEDS ORDERED: NS 0.9% 1000 ML*IV.FLUID IV ONE (15:30)
--- NOTE | 2017-11-19 16:00 | ED ---
Skin Complaint - HPI Summary HPI Summary: This patient is a 62 year old M presenting to [facility] with a chief complaint of 8/10 bilateral LE pain and skin breakdown, right worse than left, since 1200 11/18/17. He endorses SOB, RLE intensely burning and stinging, and less intense on the left, strong odor from the wounds, bleeding, discharge, and several open sores. He denies fever, chills, N/V/D, and decreased appetite. PMHx venous insufficiency, hypoglycemia. He states he was discharged from [facility] for wound care 2 weeks ago. He endorses several similar episodes in past. He ambulates with a combination walker and wheelchair. SHx all toes amputated. - History of Current Complaint Chief Complaint: EDExtremityLower Time Seen by Provider: 11/19/17 15:21 Stated Complaint: RT LEG WOUND Hx Obtained From: Patient Onset/Duration: Started Days Ago, Still Present Skin Exposure Onset/Duration: Days Ago Timing: Constant Onset Severity: Severe Current Severity: Severe Pain Intensity: 8 Pain Scale Used: 0-10 Numeric Skin Location: Leg - bilateral, right worse than left Character: Swelling, Pain, Redness, Painful Aggravating Symptom(s): Touch Alleviating Symptom(s): Cold, Cold Compresses Associated Signs & Symptoms: Difficulty Breathing, Drainage, Tenderness Related History: Diabetes - Additional Pertinent History Primary Care Physician: DIPESH - Allergy/Home Medications Allergies/Adverse Reactions: Allergies Allergy/AdvReac Type Severity Reaction Status Date / Time clindamycin Allergy Intermediate Pruritus, Verified 11/21/17 12:31 Flushing of Skin apple Allergy Unknown Verified 08/05/17 22:27 Reaction Details bee venom protein (honey bee) Allergy Anaphylatic Verified 08/05/17 22:27 Shock walnut Allergy Anaphylatic Verified 08/05/17 22:27 Shock Home Medications: Home Medications predniSONE TAB* [Deltasone 10 MG TAB*] 20 mg PO DAILY PRN 11/19/17 [History Confirmed 11/19/17] PMH/Surg Hx/FS Hx/Imm Hx Endocrine/Hematology History: Reports: Hx Anticoagulant Therapy - xarelto, Hx Diabetes, Hx Anemia, Other Endocrine/Hematological Disorders - hypoglycemia Denies: Hx Systemic Lupus Erythematosus Cardiovascular History: Reports: Hx Congestive Heart Failure, Hx Coronary Artery Disease, Hx Deep Vein Thrombosis, Hx Embolism - pulmonary embolism, takes xarelto, Hx Hypercholesterolemia, Hx Hypertension, Hx Pacemaker/ICD, Hx Peripheral Vascular Disease - SSS, Hx Syncope, Other Cardiovascular Problems/ Disorders - cardiac cath Respiratory History: Reports: Hx Chronic Obstructive Pulmonary Disease (COPD) - on 2L home O2, Hx Pneumonia, Hx Pulmonary Embolism, Hx Sleep Apnea, Other Respiratory Problems/Disorders - SLEEP APNEA, ON 2 L O2 @ NIGHT, obesity hypoventilation GI History: Reports: Other GI Disorders - umbilical hernia, stool softener at home, constipation History: Reports: Hx Acute Renal Failure, Hx Kidney Stones, Hx Renal Disease - 3 episodes of renal failure Denies: Hx Dialysis Musculoskeletal History: Reports: Hx Arthritis, Hx Back Problems, Other Musculoskeletal History - bilateral metatarsal amputation Denies: Hx Rheumatoid Arthritis Sensory History: Reports: Hx Contacts or Glasses - not with pt, Other Sensory Impairments - Neuropathy in feet Denies: Hx Deafness, Hx Hearing Aid Opthamlomology History: Reports: Hx Contacts or Glasses - not with pt, Other Sensory Impairments - Neuropathy in feet EENT History: Denies: Hx Deafness Neurological History: Reports: Hx Headaches, Other Neuro Impairments/Disorders - frequent syncope, pt states possible stroke in past Psychiatric History: Reports: Hx Depression Denies: Hx of Violent Episodes Against Others - Cancer History Hx Chemotherapy: No - Surgical History Surgery Procedure, Year, and Place: Bilateral metatarsal amputations. Pacemaker. Surgical ureterolith extraction Hx Anesthesia Reactions: No - Immunization History Date of Tetanus Vaccine: PT STATES UNSURE Date of Influenza Vaccine: NONE Immunizations Up to Date: Yes Infectious Disease History: Yes Infectious Disease History: Reports: Hx of Known/Suspected MRSA Denies: Traveled Outside the [place] in Last 30 Days - Family History Known Family History: Positive: Diabetes Negative: Other - denies FHx of depression - Social History Occupation: Disabled Lives: Assisted Living Alcohol Use: None Hx Substance Use: Yes - Narcotics Substance Use Type: Reports: Other Substance Use Comment - Amount & Last Used: chronic narcotic use Hx Tobacco Use: No Smoking Status (MU): Never Smoked Tobacco Have You Smoked in the Last Year: No Review of Systems Negative: Fever, Chills Positive: Shortness Of Breath Negative: Vomiting, Diarrhea, Nausea Positive: no symptoms reported Positive: Myalgia - bilateral lower extremity pain secondary to wounds, Decreased ROM, Edema Skin: Other - odor Positive: Other - bialteral LE wounds, superficial and deep, right worse than left, with associated erythema on the right leg All Other Systems Reviewed And Are Negative: Yes Physical Exam - Summary Physical Exam Summary: Appearance: morbidly obese, non-toxic appearing male lying in bed comfortably Skin: Warm, dry, no obvious rash. Dressings removed, right leg shows diffuse superficial sores, and a deeper sore on lateral leg with associated cellulitis traveling to thigh. Left leg shows diffuse superficial sores with no associated cellulitis. Eyes: sclera anicteric, no conjunctival pallor ENT: mucous membranes moist, pharynx appears normal Neck: Supple, nontender Respiratory: Clear to auscultation, no signs of respiratory distress Cardiovascular: Normal S1, S2. No murmurs. Normal distal pulses in tibial and radial bilaterally. Abdomen: Soft, nontender, normal active bowel sounds present Musculoskeletal: Normal, Strength/ROM Intact Neurological: A&Ox3, awake and alert, mentation is normal, speech is fluent and appropriate Psychiatric: affect is normal, does not appear anxious or depressed Triage Information Reviewed: Yes Vital Signs On Initial Exam: Initial Vitals Temp Pulse Resp BP Pulse Ox 98.3 F 83 20 133/57 93 11/19/17 15:25 11/19/17 15:25 11/19/17 15:25 11/19/17 15:25 11/19/17 15:25 Vital Signs Reviewed: Yes Diagnostics - Vital Signs Vital Signs Temp Pulse Resp BP Pulse Ox 11/19/17 15:25 98.3 F 83 20 133/57 93 - Laboratory Result Diagrams: 11/22/17 08:17 11/21/17 06:39 Lab Statement: Any lab studies that have been ordered have been reviewed, and results considered in the medical decision making process. Course/Dx - Course Course Of Treatment: A 62-year-old M presents to the ED with a CC of bilateral leg pain, burning, stinging for 1 day. (+) difficulty breathing, RLE intensely burning and stinging, and less intense on the left, strong odor from the wounds , bleeding, discharge, and several open sores. He denies fever, chills, N/V/D, and decreased appetite. (-) N/V/D, decreased appetite, fever, and chills. Similar sx several times in past, all toes amp'ed, PMHx venous insufficiency. In the ED course, pt was given nl saline, vancomycin. - Diagnoses Provider Diagnoses: Morbid obesity with BMI of 70 and over, adult, Cellulitis, Chronic venous insufficiency - Physician Notifications Discussed Care Of Patient With: Mary Johnston Time Discussed With Above Provider: 16:02 Instructed by Provider To: Other - accepts admission Discharge - Sign-Out/Discharge Documenting (check all that apply): Patient Departure - admit - Discharge Plan Condition: Fair Disposition: ADMITTED TO [facility] - Billing Disposition and Condition Condition: FAIR Disposition: Admitted to [facility] - Attestation Statements Document Initiated by Scribe: Yes Documenting Scribe: Oscar Royal Provider For Whom Scribe is Documenting (Include Credential): Dr. Dannie Mitchell MD Scribe Attestation: Oscar Murphy scribed for Dr. Dannie Mitchell MD on 11/22/17 at 1135. Scribe Documentation Reviewed: Yes Provider Attestation: The documentation as recorded by the Oscar parham accurately reflects the service I personally performed and the decisions made by , Dr. Dannie Mitchell MD
[2017-11-19 16:09] LABS: ABS Basophils 0 10^3/ul (0-0.2); ABS Eosinophils 0.1 10^3/ul (0-0.6); ABS Monocytes 0.4 10^3/ul (0-0.8); ABS Neutrophils 4.5 10^3/ul (1.5-7.7); ABS Nucleated RBC 0 10^3/ul; Eosinophil % 0.9 % (0-6); Hematocrit 44 % (42-52); Hemoglobin 13.9 g/dl (14.0-18.0); Lymphocyte % 16.2 % (25-47); Mean Corpuscular HGB Conc 32 g/dl (31-36); Mean Corpuscular Hemoglobin 27 pg (27-31); Mean Corpuscular Volume 84 fL (80-94); Nucleated Red Blood Cells % 0.2; Platelet Count 166 10^3/ul (150-450); Red Blood Count 5.18 10^6/ul (4.00-5.40); Red Cell Distribution Width 19 % (10.5-15)
[2017-11-19] MEDS ORDERED: Vancomycin(*) 1,000 MG in NS 0.9% 250 ML* 250 ML IVPB ONE ×3 (16:16→19:00)
[2017-11-19 16:18] LABS: INR 0.9 (0.77-1.02)
[2017-11-19 16:29] LABS: EGFR Non-African American 102.4 (>60)
[2017-11-19] MEDS ORDERED: NS 0.9% 250 ML* 250 ML ONE (16:44)
[2017-11-19] MEDS ORDERED: Senna TAB PO PRN (16:51)
[2017-11-19] MEDS ORDERED: Docusate CAP* 100 MG PO PRN ×2 (16:51→17:48)
[2017-11-19] MEDS ORDERED: Albuterol HFA INHALER* 8 gm MDI INH PRN (16:51)
[2017-11-19] MEDS ORDERED: Acetaminophen TAB* 325 MG PO PRN (17:00)
[2017-11-19] MEDS ORDERED: Vancomycin per Pharmacy* NOTE FOLLOW UP PRN (18:38)
--- NOTE | 2017-11-19 20:26 | HP ---
CC: Dr. Gilliland * HISTORY AND PHYSICAL: DATE OF ADMISSION: 11/19/17 PRIMARY CARE PROVIDER: Dr. Gilliland. CHIEF COMPLAINT: Leg wounds and possible cellulitis. HISTORY OF PRESENT ILLNESS: Franklyn Shafer is a 62-year-old male with history of bilateral lower extremity lymphedema and chronic wounds, who stated that approximately 2 weeks ago he was steered by the [facility] for not needing any further visits with them. He stated that he uses Flo bandages once a week and he does not use any ointments at all. He has an aide that helps him for 5 hours every day and he stated that he felt an itch in his leg a couple of days ago and asked his aide to unwrap his bandages earlier. When his aide was unwrapping the bandages, some of the skin "ripped off" with the bandages. The skin is very dry and flaky. Within 24 hours, the patient noted to have erythema creeping towards his right knee from his right below the knee area and a wound that opened up when bandages were taken off. He is going to be placed for observation with a diagnosis of cellulitis. PAST MEDICAL HISTORY: 1. History of COPD, on oxygen p.r.n. at home and BiPAP at night. 2. History of obstructive sleep apnea, on BiPAP at night. 3. History of paroxysmal atrial fibrillation. 4. History of DVT and PE, on Xarelto. 5. History of diastolic CHF. 6. History of pacemaker placement due to sick sinus syndrome. 7. Nephrolithiasis with stent and lithotripsy in the past. 8. History of bilateral lymphedema, status post bilateral transmetatarsal amputations in the past. 9. History of MRSA cellulitis in the past. MEDICATIONS: Include: 1. Benadryl 25 mg on a p.r.n. basis every 6 hours. 2. Torsemide 20 mg daily. The patient occasionally takes 40 depending on his edema. 3. Ferrous sulfate 325 mg daily. 4. Albuterol inhaler 2 puffs every 4 hours p.r.n. 5. Senokot 1 tablet every 12 hours p.r.n. 6. Xarelto 20 mg daily. 7. Nitroglycerin 0.4 mg on a p.r.n. basis. 8. Colace 100 mg b.i.d. p.r.n. 9. Aspirin 81 mg daily. 11. Prednisone. The patient takes only when his breathing is worse and he has not taken recently, and he usually takes 20 mg tablet. 12. Potassium chloride 20 mEq b.i.d. ALLERGIES: Include APPLE, BEE VENOM, and WALNUT. FAMILY HISTORY: Positive for mother with dementia and diabetes. SOCIAL HISTORY: The patient denies any tobacco, alcohol, or drug use. His brother, J Luis, is his surrogate. He lives alone. He is on disability. He has an aide 5 hours a day. He stated that he ambulates at home with minimal support. REVIEW OF SYSTEMS: The patient stated that his breathing is at baseline. He complained about mold in his apartment, which has been an ongoing problem for several months now. Occasionally, he uses oxygen and when he uses oxygen, it is 4 L during the daytime. He uses BiPAP at night. Although the legs have not been edematous significantly due to Flo bandage wraps, he stated that he felt "bloated" and he usually takes more diuretic when he has increased abdominal girth. He does not weigh himself routinely. All the remaining 12 systems were reviewed with the patient and were otherwise negative. PHYSICAL EXAMINATION GENERAL: The patient is a very pleasant 62-year-old morbidly obese male with a BMI of 59.8. The patient is in no acute distress. Alert, awake, and oriented x3. VITAL SIGNS: Blood pressure of 133/57, heart rate of 83 and regular, respiratory rate 20, oxygen saturation 93% on 2 L of oxygen via nasal cannula, temperature of 98.3. HEENT: Head: Atraumatic, normocephalic. Eyes: Pupils are equal, reactive to light and accommodation. Oropharynx is clear. Mucosa moist. NECK: Supple. No JVD. No bruits bilaterally. RESPIRATORY: Clear to auscultation bilaterally. CARDIOVASCULAR: Regular rate and rhythm. No murmur. ABDOMEN: Very obese, soft, nontender. Bowel sounds are present in all 4 quadrants. EXTREMITIES: There is trace to minimal pedal edema bilaterally that is nonpitting. Pulses are +2 bilaterally. There is no clubbing or cyanosis. The patient is status post bilateral TMA amputations with stumps well healed. NEUROLOGIC: Cranial nerves II through XII are grossly intact. Motor strength is 5/5 bilaterally. PSYCHIATRIC: Oriented x3 with no evidence of anxiety or depression. SKIN: On evaluation of the skin of bilateral lower extremities, from the level of the knee through the feet bilaterally, the patient has very hardened flaky dry skin. There are several areas of what appears to be the skin being basically ripped off with the dressings that were taken off at home and that includes an area right underneath the right knee anteriorly, a strip of opened area of approximately 3 x 10 cm. Around that wound that is pretty shallow, stage 2, bottom covered with bloody secretions. The surrounding area is cellulitis of approximately 20 to 30 cm in diameter and the cellulitis is going up towards the knee from the area. The patient has also several areas of the same quality of wound, slightly smaller on the left anterior reynaga. There is also 1 on the left calf. There is no evidence of cellulitis on the left leg. LABORATORY DATA: White blood cell count of 6.3, hemoglobin of 13.9, hematocrit of 44, and platelets of 166. Sodium was 139, potassium 4.0, chloride 100, carbon dioxide 35, BUN 12, creatinine 0.77. Liver function tests unremarkable. C- reactive protein of 24. ASSESSMENT AND PLAN: 1. Cellulitis. The patient is not septic at admission. The cellulitis appears rather mild. He is going to be placed on overnight observation on IV vancomycin. He stated that "Bactrim did not agree with him in the past." It caused him to have diarrhea. At this point, I presume that he may be discharged on either clindamycin or doxycycline with his history of methicillin- resistant Staphylococcus aureus. 2. In regards to the patient's history of congestive heart failure, the patient feels that he is bloated and he has gained weight, although he does not know his current weight, at this point I will increase his torsemide to 20 mg daily. 3. History of chronic hypoxemic respiratory failure, on oxygen at home as needed. That is going to be continued. 4. For history of pulmonary embolism, we will continue the patient's Xarelto. 5. For DVT prophylaxis, Xarelto is going to be continued as mentioned above. 6. Code status is full and his surrogate is his brother as mentioned above. TIME SPENT: Approximately 60 minutes were spent on admission of this patient, more than half of that time was spent [id number] with the patient during the interview and physical exam. [id number]/[facility] #: [id number] KIET
[2017-11-19] MEDS: oxyCODONE/Acetamin 5/325 MG* TAB PO PRN (20:51)
[2017-11-19] MEDS: Potassium Chlor TAB* 20 MEQ TAB.ER PO SCH (20:54)
[2017-11-20] MEDS: oxyCODONE/Acetamin 5/325 MG* TAB PO PRN ×5 (06:05→22:45)
[2017-11-20] MEDS ORDERED: VANCOMYCIN 1500 MG IVPB SCH ×2 (07:00)
[2017-11-20] MEDS ORDERED: [UNRECOGNIZED DRUG - OTHER] IVPB SCH ×2 (07:00)
[2017-11-20 07:13] LABS: Hematocrit 44 % (42-52); Hemoglobin 13.8 g/dl (14.0-18.0); Mean Corpuscular HGB Conc 32 g/dl (31-36); Mean Corpuscular Hemoglobin 27 pg (27-31); Mean Corpuscular Volume 84 fL (80-94); Mean Platelet Volume 8.8 um3 (7.4-10.4); Platelet Count 156 10^3/ul (150-450); Red Blood Count 5.16 10^6/ul (4.00-5.40); Red Cell Distribution Width 19 % (10.5-15); White Blood Count 5.5 10^3/ul (3.5-10.8)
[2017-11-20 07:33] LABS: EGFR Non-African American 114.3 (>60)
[2017-11-20 07:42] LABS: ABS Basophils 0 10^3/ul (0-0.2); ABS Eosinophils 0.1 10^3/ul (0-0.6); ABS Lymphocytes 1.2 10^3/ul (1.0-4.8); ABS Monocytes 0.5 10^3/ul (0-0.8); ABS Neutrophils 3.7 10^3/ul (1.5-7.7); ABS Nucleated RBC 0 10^3/ul; Eosinophil % 1.5 % (0-6); Lymphocyte % 21.5 % (25-47); Nucleated Red Blood Cells % 0.1
[2017-11-20] MEDS: Torsemide TAB* 20 MG PO SCH (08:14)
[2017-11-20] MEDS: Ferrous Sulfate TAB* 325 MG PO SCH (08:15)
[2017-11-20] MEDS: Potassium Chlor TAB* 20 MEQ TAB.ER PO SCH ×2 (08:15→20:48)
[2017-11-20] MEDS: Aspirin EC TAB* 81 MG TAB.EC PO SCH (08:16)
[2017-11-20 09:43] LABS: Urine Appearance Clear; Urine Blood Negative (Negative); Urine Color Straw; Urine Ketones Negative (Negative); Urine Protein Negative (Negative); Urine Red Blood Cell Absent (Absent); Urine Specific Gravity 1.006 (1.010-1.030); Urine Urobilinogen Negative (Negative); Urine White Blood Cell 1+(6-10/hpf) (Absent)
--- NOTE | 2017-11-20 10:52 | PN ---
Subjective Date of Service: 11/20/17 Interval History: Pt has no new complaints. Placed on 02 this AM. Now stable on 3 l 02. At home can be off 02 or on 2-4 L "depending on a day". Objective Active Medications: Acetaminophen (Tylenol Tab*) 650 mg PO Q4H PRN PRN Reason: FEVER/PAIN Albuterol (Ventolin Hfa Inhaler*) 2 puff INH Q4H PRN PRN Reason: SOB/WHEEZING Aspirin (Aspirin Ec Tab*) 81 mg PO DAILY [facility] Last Admin: 11/20/17 08:16 Dose: 81 mg Diphenhydramine HCl (Benadryl Po*) 25 mg PO Q6H PRN PRN Reason: Allergy Symptoms Docusate Sodium (Colace Cap*) 100 mg PO BID PRN PRN Reason: CONSTIPATION Docusate Sodium (Colace Cap*) 100 mg PO Q12H PRN PRN Reason: CONSTIPATION Ferrous Sulfate (Ferrous Sulfate Tab*) 325 mg PO DAILY [facility] Last Admin: 11/20/17 08:15 Dose: 325 mg Vancomycin HCl 1,500 mg/ (Sodium Chloride) 250 mls @ 166.667 mls/hr IVPB Q12H [facility] Last Admin: 11/20/17 06:32 Dose: 166.667 mls/hr Oxycodone/Acetaminophen (Percocet 5/325 Tab*) 2 tab PO Q4H PRN PRN Reason: PAIN Last Admin: 11/20/17 10:03 Dose: 2 tab Pharmacy Consult (Vancomycin Per Pharmacy*) 1 note FOLLOW UP . PRN PRN Reason: PER PROTOCOL Pharmacy Profile Note (Vancomycin Trough Check) 1 note FOLLOW UP 1830 ONE Stop: 11/21/17 18:31 Potassium Chloride (Klor Con Er Tab*) 20 meq PO BID [facility] Last Admin: 11/20/17 08:15 Dose: 20 meq Rivaroxaban (Xarelto(*)) 20 mg PO DAILY WITH MEAL@1700 [facility] Senna (Senokot Tab*) 1 tab PO Q12HR PRN PRN Reason: CONSTIPATION Torsemide (Demadex*) 40 mg PO DAILY [facility] Last Admin: 11/20/17 08:14 Dose: 40 mg Vital Signs - 8 hr 11/20/17 11/20/17 11/20/17 03:23 06:05 08:06 Temperature 96.8 F 99.2 F Pulse Rate 72 68 Respiratory 16 20 17 Rate Blood Pressure 134/59 136/70 (mmHg) O2 Sat by Pulse 98 81 Oximetry 11/20/17 11/20/17 08:57 10:03 Temperature Pulse Rate Respiratory 16 16 Rate Blood Pressure (mmHg) O2 Sat by Pulse Oximetry Oxygen Devices in Use Now: Nasal Cannula Appearance: 62 yo M in nAD, aAOx3 Eyes: No Scleral Icterus, PERRLA Ears/Nose/Mouth/Throat: NL Teeth, Lips, Gums, Mucous Membranes Moist Neck: NL Appearance and Movements; NL JVP, Trachea Midline Respiratory: Symmetrical Chest Expansion and Respiratory Effort, Clear to Auscultation Cardiovascular: NL Sounds; No Murmurs; No JVD, RRR Abdominal: NL Sounds; No Tenderness; No Distention, No Hepatosplenomegaly Lymphatic: No Cervical Adenopathy Extremities: No Clubbing, Cyanosis, - - trace b/l leg edema, legs wrapped in SYLVIA bandages up to knees Skin: No Nodules or Sclerosis, - - R knee area cellulitis improved. wound under R knee draining serous fluid at 2x10 cm, bottom covered with soft eschar. b/l LE 's from knees down with dry flaky peeling skin Neurological: Alert and Oriented x 3, NL Muscle Strength and Tone Result Diagrams: 11/20/17 07:03 11/20/17 07:03 Assess/Plan/Problems-Billing Assessment: Patient is a 62yo male with a PMH for Obesity Hypoventilation syndrome, Chronic hypoxic and hypercarbic respiratory failure on prn 02, Multiple PEs, Morbid obesity, Diastolic HF, who presents with cellulitis and leg wounds - Patient Problems (1) Cellulitis of thigh Comment: - resolving. will d/c Vancomycin. start clinda. PT stated he developed diarrhea from Bactrim before an does not want to use it. (2) Chronic diastolic heart failure Comment: cont torsemide 40 mg daily not acute exacerbation , but c/o gaining weight (3) Pulmonary embolism Comment: - CTA 2016 showing PE - Continue xarelto. (4) Chronic respiratory failure Comment: - Chronic hypoxic and hypercarbic - Continue BiPAP at night and supplemental 02 prn (5) DVT prophylaxis Comment: - Xarelto Status and Disposition: OBV. Pt prefers to stay another day. will try to arrange for aides for tomorrow afternoon
[2017-11-20] MEDS: Lactobacillus Acidophilus* 1 TAB PO SCH ×2 (13:05→20:48)
[2017-11-20] MEDS: Clindamycin CAP* 150 MG PO SCH ×2 (13:06→20:48)
[2017-11-20] MEDS: Rivaroxaban TAB(*) 20 MG TAB PO SCH (17:52)
[2017-11-21] MEDS ORDERED: diPHENhydraMINE IV* 50 MG in NS 0.9% 50 ML* 50 ML IVPB ONE (02:27)
[2017-11-21] MEDS ORDERED: diPHENhydraMINE IV* 50 MG/ML 1 ml VIAL (BENADRYL) ONE (02:32)
[2017-11-21] MEDS ORDERED: diPHENhydraMINE IV* 50 MG/ML 1 ml VIAL (BENADRYL) IV ONE (03:00)
[2017-11-21 06:52] LABS: ABS Basophils 0.1 10^3/ul (0-0.2); ABS Eosinophils 0.1 10^3/ul (0-0.6); ABS Lymphocytes 0.4 10^3/ul (1.0-4.8); ABS Monocytes 0.3 10^3/ul (0-0.8); ABS Neutrophils 8.3 10^3/ul (1.5-7.7); ABS Nucleated RBC 0 10^3/ul; Eosinophil % 1.2 % (0-6); Hematocrit 45 % (42-52); Hemoglobin 14.4 g/dl (14.0-18.0); Lymphocyte % 4.1 % (25-47); Mean Corpuscular HGB Conc 32 g/dl (31-36); Mean Corpuscular Hemoglobin 27 pg (27-31); Mean Corpuscular Volume 84 fL (80-94); Mean Platelet Volume 8.5 um3 (7.4-10.4); Nucleated Red Blood Cells % 0; Platelet Count 160 10^3/ul (150-450); Red Blood Count 5.36 10^6/ul (4.00-5.40); Red Cell Distribution Width 19 % (10.5-15); White Blood Count 9.2 10^3/ul (3.5-10.8)
[2017-11-21] MEDS: Clindamycin CAP* 150 MG PO SCH (07:12)
[2017-11-21 07:17] LABS: EGFR Non-African American 103.9 (>60)
[2017-11-21] MEDS: Potassium Chlor TAB* 20 MEQ TAB.ER PO SCH ×2 (09:19→20:33)
[2017-11-21] MEDS: Ferrous Sulfate TAB* 325 MG PO SCH (09:19)
[2017-11-21] MEDS: oxyCODONE/Acetamin 5/325 MG* TAB PO PRN ×2 (09:19→21:53)
[2017-11-21] MEDS: Torsemide TAB* 20 MG PO SCH ×2 (09:19→13:34)
[2017-11-21] MEDS: Lactobacillus Acidophilus* 1 TAB PO SCH ×2 (09:20→20:33)
[2017-11-21] MEDS: Aspirin EC TAB* 81 MG TAB.EC PO SCH (09:20)
[2017-11-21] MEDS ORDERED: Furosemide IV* 10 MG/ML 2 ML VIAL (20 MG) IV ONE (11:39)
--- NOTE | 2017-11-21 11:58 | PN ---
Subjective Date of Service: 11/21/17 Interval History: Pt c/o feeling flushed and skin itching today. Legs are more swollen according to pt. Objective Active Medications: Acetaminophen (Tylenol Tab*) 650 mg PO Q4H PRN PRN Reason: FEVER/PAIN Albuterol (Ventolin Hfa Inhaler*) 2 puff INH Q4H PRN PRN Reason: SOB/WHEEZING Aspirin (Aspirin Ec Tab*) 81 mg PO DAILY [facility] Last Admin: 11/21/17 09:20 Dose: 81 mg Diphenhydramine HCl (Benadryl Po*) 25 mg PO Q6H PRN PRN Reason: Allergy Symptoms Docusate Sodium (Colace Cap*) 100 mg PO Q12H PRN PRN Reason: CONSTIPATION Ferrous Sulfate (Ferrous Sulfate Tab*) 325 mg PO DAILY [facility] Last Admin: 11/21/17 09:19 Dose: 325 mg Vancomycin HCl 1,250 mg/ (Sodium Chloride) 250 mls @ 166.667 mls/hr IVPB ONCE ONE Stop: 11/21/17 13:07 Vancomycin HCl / Sodium (Chloride) 250 mls @ 166.667 mls/hr IVPB .CONTINUE PROTOCOL [facility]; Protocol Lactobacillus Rhamnosus (Lactobacillus Acidophilus*) 1 tab PO BID [facility] Last Admin: 11/21/17 09:20 Dose: 1 tab Oxycodone/Acetaminophen (Percocet 5/325 Tab*) 2 tab PO Q4H PRN PRN Reason: PAIN Last Admin: 11/21/17 09:19 Dose: 2 tab Potassium Chloride (Klor Con Er Tab*) 20 meq PO BID [facility] Last Admin: 11/21/17 09:19 Dose: 20 meq Rivaroxaban (Xarelto(*)) 20 mg PO DAILY WITH MEAL@1700 [facility] Last Admin: 11/20/17 17:52 Dose: 20 mg Senna (Senokot Tab*) 1 tab PO Q12HR PRN PRN Reason: CONSTIPATION Torsemide (Demadex*) 40 mg PO DAILY [facility] Last Admin: 11/21/17 09:19 Dose: Not Given Vital Signs - 8 hr 11/21/17 11/21/17 11/21/17 04:02 07:50 09:19 Temperature 97.8 F Pulse Rate 84 Respiratory 20 19 16 Rate Blood Pressure 144/72 (mmHg) O2 Sat by Pulse 93 Oximetry Oxygen Devices in Use Now: Nasal Cannula Appearance: 62 yo M in nAD, aAOx3 Eyes: No Scleral Icterus, PERRLA Ears/Nose/Mouth/Throat: NL Teeth, Lips, Gums, Mucous Membranes Moist Neck: NL Appearance and Movements; NL JVP, Trachea Midline Respiratory: Symmetrical Chest Expansion and Respiratory Effort, - - crackles at b/l bases Cardiovascular: NL Sounds; No Murmurs; No JVD, RRR Abdominal: NL Sounds; No Tenderness; No Distention Lymphatic: No Cervical Adenopathy Extremities: No Clubbing, Cyanosis, - - +1 pitting pedal edema b/l Skin: No Nodules or Sclerosis, - - flushed skin on face b/l LE's, no distinct rash noted. Skin on b/l distal LE's dry, flaky. wound under R knee covered with eschar, no worsening cellulitis that is receeding. Small areas of abrasion like wounds on L distal leg-no cellulitis Neurological: Alert and Oriented x 3, NL Muscle Strength and Tone Result Diagrams: 11/21/17 06:39 11/21/17 06:39 Microbiology and Other Data: Microbiology 11/19/17 16:22 Aerobic Blood Culture - Preliminary Blood Venous No Growth Day 1 Anaerobic Blood Culture - Preliminary No Growth Day 1 11/19/17 15:50 Aerobic Blood Culture - Preliminary Blood Venous No Growth Day 1 Anaerobic Blood Culture - Preliminary No Growth Day 1 Assess/Plan/Problems-Billing Assessment: Patient is a 62yo male with a PMH for Obesity Hypoventilation syndrome, Chronic hypoxic and hypercarbic respiratory failure on prn 02, Multiple PEs, Morbid obesity, Diastolic HF, who presents with cellulitis and leg wounds - Patient Problems (1) Cellulitis of thigh Comment: Resolving , but now pt appears to have skin erythema and pruritus from Clindamycin will d/c clinda, restart Vancomycin and d/w ID in AM. PT stated he developed diarrhea from Bactrim before and does not want to use it. (2) Chronic diastolic heart failure Comment: Cont torsemide 40 mg daily . today appears to have increased leg edema -will tx with a dose of IV Lasix (3) Pulmonary embolism Comment: - CTA 2016 showing PE - Continue xarelto. (4) Chronic respiratory failure Comment: - Chronic hypoxic and hypercarbic - Continue BiPAP at night and supplemental 02 prn (5) DVT prophylaxis Comment: - Xarelto Status and Disposition: OBV will be changed to inpatient
[2017-11-21] MEDS ORDERED: Vancomycin(*) 2,000 MG in NS 0.9% 500 ML* 500 ML IVPB ONE (13:00)
[2017-11-21] MEDS ORDERED: Vancomycin per Pharmacy* NOTE FOLLOW UP PRN (13:13)
[2017-11-21] MEDS: Rivaroxaban TAB(*) 20 MG TAB PO SCH (17:47)
[2017-11-21] MEDS ORDERED: Vancomycin Trough Check NOTE FOLLOW UP ONE (18:30)
[2017-11-21] MEDS: Vancomycin(*) 1,250 MG in NS 0.9% 250 ML* 250 ML IVPB SCH (20:33)
[2017-11-22] MEDS: diPHENhydraMINE IV* 50 MG/ML 1 ml VIAL (BENADRYL) IV ONE (00:37)
[2017-11-22] MEDS: oxyCODONE/Acetamin 5/325 MG* TAB PO PRN ×3 (04:59→18:18)
[2017-11-22] MEDS: Vancomycin(*) 1,250 MG in NS 0.9% 250 ML* 250 ML IVPB SCH (05:07)
[2017-11-22 08:30] LABS: Hematocrit 42 % (42-52); Hemoglobin 13.4 g/dl (14.0-18.0); Mean Corpuscular HGB Conc 32 g/dl (31-36); Mean Corpuscular Hemoglobin 27 pg (27-31); Mean Corpuscular Volume 84 fL (80-94); Mean Platelet Volume 8.6 um3 (7.4-10.4); Platelet Count 155 10^3/ul (150-450); Red Cell Distribution Width 19 % (10.5-15); White Blood Count 12.1 10^3/ul (3.5-10.8)
--- NOTE | 2017-11-22 08:52 | PN ---
Subjective Date of Service: 11/22/17 Interval History: skin is redder today, no pruritus. breathing still not the best, but no cough, no wheezing Objective Active Medications: Acetaminophen (Tylenol Tab*) 650 mg PO Q4H PRN PRN Reason: FEVER/PAIN Albuterol (Ventolin Hfa Inhaler*) 2 puff INH Q4H PRN PRN Reason: SOB/WHEEZING Aspirin (Aspirin Ec Tab*) 81 mg PO DAILY [facility] Last Admin: 11/21/17 09:20 Dose: 81 mg Diphenhydramine HCl (Benadryl Po*) 25 mg PO Q6H PRN PRN Reason: Allergy Symptoms Diphenhydramine HCl (Benadryl Iv*) 50 mg IV ONCE ONE Stop: 11/23/17 00:00 Last Admin: 11/22/17 00:37 Dose: 50 mg Docusate Sodium (Colace Cap*) 100 mg PO Q12H PRN PRN Reason: CONSTIPATION Ferrous Sulfate (Ferrous Sulfate Tab*) 325 mg PO DAILY [facility] Last Admin: 11/21/17 09:19 Dose: 325 mg Oxycodone/Acetaminophen (Percocet 5/325 Tab*) 2 tab PO Q4H PRN PRN Reason: PAIN Last Admin: 11/22/17 04:59 Dose: 2 tab Pharmacy Consult (Vancomycin Per Pharmacy*) 1 note FOLLOW UP . PRN PRN Reason: PER PROTOCOL Pharmacy Profile Note (Vancomycin Trough Check) 1 note FOLLOW UP ONCE ONE Stop: 11/22/17 12:31 Potassium Chloride (Klor Con Er Tab*) 20 meq PO BID [facility] Last Admin: 11/21/17 20:33 Dose: 20 meq Rivaroxaban (Xarelto(*)) 20 mg PO DAILY WITH MEAL@1700 [facility] Last Admin: 11/21/17 17:47 Dose: 20 mg Senna (Senokot Tab*) 1 tab PO Q12HR PRN PRN Reason: CONSTIPATION Torsemide (Demadex*) 40 mg PO DAILY [facility] Last Admin: 11/21/17 13:34 Dose: 40 mg Vital Signs - 8 hr 11/22/17 11/22/17 11/22/17 01:25 03:46 04:59 Temperature 98.6 F Pulse Rate 84 Respiratory 20 20 20 Rate Blood Pressure 112/52 (mmHg) O2 Sat by Pulse 89 Oximetry Oxygen Devices in Use Now: Nasal Cannula Appearance: 62 yo morbitly obese M in nAD, aAOx3 Eyes: No Scleral Icterus, PERRLA Ears/Nose/Mouth/Throat: NL Teeth, Lips, Gums, Mucous Membranes Moist Neck: NL Appearance and Movements; NL JVP, Trachea Midline Respiratory: Symmetrical Chest Expansion and Respiratory Effort, Clear to Auscultation Cardiovascular: RRR Abdominal: NL Sounds; No Tenderness; No Distention Extremities: No Clubbing, Cyanosis, - - +2 pedal edema, s/p B/l TMA Skin: No Nodules or Sclerosis, - - dry flaky skin b/l distal LEs with several skin wounds covered with eschar-unchanged. Although due to generalized blanchable not raised erythema/rash it is difficult to eval for cellulitis, but the area on r knee shows no cellulitis now. Neurological: Alert and Oriented x 3, NL Muscle Strength and Tone Result Diagrams: 11/22/17 08:17 11/21/17 06:39 Microbiology and Other Data: Microbiology 11/19/17 16:22 Aerobic Blood Culture - Preliminary Blood Venous No Growth Day 1 Anaerobic Blood Culture - Preliminary No Growth Day 1 11/19/17 15:50 Aerobic Blood Culture - Preliminary Blood Venous No Growth Day 1 Anaerobic Blood Culture - Preliminary No Growth Day 1 Assess/Plan/Problems-Billing Assessment: Patient is a 62yo male with a PMH for Obesity Hypoventilation syndrome, Chronic hypoxic and hypercarbic respiratory failure on prn 02, Multiple PEs, Morbid obesity, Diastolic HF, who presents with cellulitis and leg wounds - Patient Problems (1) Cellulitis of thigh Comment: appeas to be resolved, but developed skin erythema/drug reaction that occured after pt was started on clindamycin on 11/21/17 Vancomycin that was restarted on 11/21/17 will be d/c'd . will ask ID to see. No antibiotics for now apart for topical tx and wound care PT stated he developed diarrhea from Bactrim before and does not want to use it. (2) Chronic diastolic heart failure Comment: Cont torsemide at an increased dose 40 mg daily . (3) Pulmonary embolism Comment: - CTA 2016 showing PE - Continue xarelto. (4) Chronic respiratory failure Comment: - Chronic hypoxic and hypercarbic . on prn 02 at home - Continue BiPAP at night and supplemental 02 prn (5) Rash and nonspecific skin eruption Comment: supect from clindamycin, but will stop all antibiotics for now as well as probiotic that was started this admission. will start Prednisone (6) DVT prophylaxis Comment: - Xarelto Status and Disposition: inpatient
[2017-11-22] MEDS: diPHENhydraMINE PO* 25 MG PO PRN (09:09)
[2017-11-22] MEDS: Ferrous Sulfate TAB* 325 MG PO SCH (09:09)
[2017-11-22] MEDS: Aspirin EC TAB* 81 MG TAB.EC PO SCH (09:10)
[2017-11-22] MEDS: Potassium Chlor TAB* 20 MEQ TAB.ER PO SCH ×2 (09:10→20:08)
[2017-11-22] MEDS ORDERED: Torsemide TAB* 20 MG ONE (09:15)
[2017-11-22] MEDS: Torsemide TAB* 20 MG PO SCH (09:16)
--- NOTE | 2017-11-22 10:44 | CONS ---
CONSULTATION REPORT: DATE OF CONSULT: 11/22/17 REQUESTING PHYSICIAN: Dr. Johnston. CONSULTING SERVICE: Infectious Disease. REASON FOR CONSULT: Drug reaction. IMPRESSION: 1. Diffuse erythematous pleuritic nonblanching rash with conjunctivitis after vancomycin and then couple a dose of clindamycin, could have been either agent. He does not have systemic symptoms, mouth sores, angioedema, or eosinophilia, although he has now a little bit of white count today. 2. Bilateral lower extremity wounds related to venous insufficiency, previously been infected but cellulitis resolved. 3. Super morbid obesity. RECOMMENDATIONS: Agree with discontinuing antibiotics as the previous infection has resolved. 40 mg of prednisone by mouth for 3 days for symptomatic relief. HISTORY OF PRESENT ILLNESS: This is a 62-year-old man with morbid obesity, bilateral lower extremity wounds, admitted with some redness and drainage around the right wound. Had been thick drainage and was started on vancomycin and over the course of the last couple of days, the drainage had become more thin and serous in appearance. The redness around his wounds had resolved. However, last night, he awoke with redness on his face and whole body, which is quite itchy, little bit irritated. He has been on Benadryl with mild relief. He had had a dose of clindamycin the afternoon before the reaction started as well. He has tolerated both in the past. He has no mouth sores. No lip or face swelling. His eyes have mild conjunctivitis bilaterally. PAST MEDICAL HISTORY: 1. COPD, on BiPAP at night. 2. Obstructive sleep apnea. 3. Paroxysmal atrial fibrillation. 4. DVT and PE, on Xarelto. 5. Diastolic heart failure. 6. Status post pacemaker placement for sick sinus syndrome. 7. Nephrolithiasis, history of lithotripsy. 8. Bilateral lymphedema with venous insufficiency. 9. Status post bilateral transmetatarsal amputations. 10. History of MRSA cellulitis. MEDICATIONS: 1. Tylenol. 2. Albuterol. 3. Aspirin. 4. Docusate. 5. Ferrous sulfate. 6. Rivaroxaban. 7. Senna. 8. Torsemide. ALLERGIES: No known drug allergies before this admission. FAMILY HISTORY: No recurrent infections. SOCIAL HISTORY: He lives by himself. He has no travel. No sick contacts. REVIEW OF SYSTEMS: All negative except as noted in the history of present illness. PHYSICAL EXAM: Vital Signs: Temperature 37, heart rate 80, respiratory rate 18 , blood pressure 130/50, oxygen saturation 90% on room air. In general, he is awake, not in distress. Neurologic: He is oriented x3. Follows all commands. HEENT: There is bilateral conjunctival injection without hemorrhage. Oropharynx without lesions. There is no ulcer or angioedema. Neck: Supple without mass. Lymph Nodes: There is no cervical, supraclavicular, inguinal, axillary, or epitrochlear lymphadenopathy. Heart has regular rate and rhythm without murmurs, rubs, or gallops. Lungs: Clear to auscultation bilaterally. Abdomen: Soft, nontender, nondistended. Bowel sounds are present. Skin: There is diffuse confluent erythema throughout most of his body including face, trunk, arms, legs, not blanching. LABORATORY DATA: White blood cell count 12, hemoglobin 13, platelets 155. Creatinine 0.7. C-reactive protein 25. Blood cultures are negative. Please see impressions and recommendations as outlined above, which I have discussed with Dr. Johnston. Thanks for asking me to see Mr. Shafer in consultation. [id number]/CPS #: [id number] MTDD
[2017-11-22] MEDS: predniSONE TAB* 20 MG PO SCH (12:15)
[2017-11-22] MEDS ORDERED: Vancomycin Trough Check NOTE FOLLOW UP ONE (12:30)
[2017-11-22] MEDS: Rivaroxaban TAB(*) 20 MG TAB PO SCH (18:19)
[2017-11-22] MEDS ORDERED: Albuterol/Ipratropium NEB.SOL* Albuterol 2.5 MG/Ipratropium 0.5 MG 3 ML INH PRN (21:09)
[2017-11-22] MEDS ORDERED: Magnesium CITRATE* 300 ML BTL PO ONE (21:30)
[2017-11-23] MEDS: diPHENhydraMINE IV* 50 MG/ML 1 ml VIAL (BENADRYL) IV ONE (00:02)
[2017-11-23] MEDS: oxyCODONE/Acetamin 5/325 MG* TAB PO PRN ×5 (03:54→21:11)
[2017-11-23] MEDS: diPHENhydraMINE PO* 25 MG PO PRN ×2 (06:37→21:11)
[2017-11-23 07:09] LABS: ABS Basophils 0 10^3/ul (0-0.2); ABS Eosinophils 0 10^3/ul (0-0.6); ABS Lymphocytes 0.4 10^3/ul (1.0-4.8); ABS Monocytes 0.4 10^3/ul (0-0.8); ABS Neutrophils 10.9 10^3/ul (1.5-7.7); ABS Nucleated RBC 0 10^3/ul; Eosinophil % 0.4 % (0-6); Hematocrit 42 % (42-52); Hemoglobin 13.4 g/dl (14.0-18.0); Lymphocyte % 3.5 % (25-47); Mean Corpuscular HGB Conc 32 g/dl (31-36); Mean Corpuscular Hemoglobin 27 pg (27-31); Mean Corpuscular Volume 84 fL (80-94); Mean Platelet Volume 8.6 um3 (7.4-10.4); Nucleated Red Blood Cells % 0.1; Platelet Count 158 10^3/ul (150-450); Red Blood Count 5.04 10^6/ul (4.00-5.40); Red Cell Distribution Width 19 % (10.5-15); White Blood Count 11.8 10^3/ul (3.5-10.8)
[2017-11-23 07:34] LABS: EGFR Non-African American 95.2 (>60)
[2017-11-23] MEDS: Ferrous Sulfate TAB* 325 MG PO SCH (08:26)
[2017-11-23] MEDS: Torsemide TAB* 20 MG PO SCH ×2 (08:26→09:09)
[2017-11-23] MEDS: predniSONE TAB* 20 MG PO SCH (08:26)
[2017-11-23] MEDS: Potassium Chlor TAB* 20 MEQ TAB.ER PO SCH ×2 (08:26→21:11)
[2017-11-23] MEDS: Aspirin EC TAB* 81 MG TAB.EC PO SCH (08:26)
[2017-11-23] MEDS ORDERED: Magnesium CITRATE* 300 ML BTL PO ONE (11:33)
--- NOTE | 2017-11-23 11:47 | RAD ---
HISTORY: SOB COMPARISONS: September 02, 2017 VIEWS: 1: frontal portable view of the chest at 10:55 AM FINDINGS: LINES AND TUBES: A left-sided pacemaker is noted. CARDIOMEDIASTINAL SILHOUETTE: The cardiac silhouette is enlarged. The cardiomediastinal silhouette is otherwise normal for portable technique. PLEURA: The costophrenic angles are sharp. No pleural abnormalities are noted. LUNG PARENCHYMA: There is enlargement of the central pulmonary vasculature. There is a diffuse reticular pattern with indistinct pulmonary vessels. ABDOMEN: The upper abdomen is clear. There is no subphrenic gas. BONES AND SOFT TISSUES: No bone or soft tissue abnormalities are noted. IMPRESSION: CARDIOMEGALY WITH PULMONARY INTERSTITIAL EDEMA
--- NOTE | 2017-11-23 13:14 | PN ---
Subjective Date of Service: 11/23/17 Interval History: Pt c/o SOB, but no tachypnea noted and 02 sat on 3L 02 had been stable x 3 days. C/o itchy skin, but rash definitely improved. constipated Objective Active Medications: Acetaminophen (Tylenol Tab*) 650 mg PO Q4H PRN PRN Reason: FEVER/PAIN Albuterol (Ventolin Hfa Inhaler*) 2 puff INH Q4H PRN PRN Reason: SOB/WHEEZING Last Admin: 11/22/17 20:09 Dose: 2 puff Albuterol/Ipratropium (Duoneb (Albuterol 2.5 Mg/Ipratropium 0.5 Mg)) 1 neb INH Q4H PRN PRN Reason: SOB/WHEEZING Aspirin (Aspirin Ec Tab*) 81 mg PO DAILY [facility] Last Admin: 11/23/17 08:26 Dose: 81 mg Diphenhydramine HCl (Benadryl Po*) 25 mg PO Q6H PRN PRN Reason: Allergy Symptoms Last Admin: 11/23/17 06:37 Dose: 25 mg Docusate Sodium (Colace Cap*) 100 mg PO Q12H PRN PRN Reason: CONSTIPATION Ferrous Sulfate (Ferrous Sulfate Tab*) 325 mg PO DAILY [facility] Last Admin: 11/23/17 08:26 Dose: 325 mg Oxycodone/Acetaminophen (Percocet 5/325 Tab*) 2 tab PO Q4H PRN PRN Reason: PAIN Last Admin: 11/23/17 12:52 Dose: 2 tab Potassium Chloride (Klor Con Er Tab*) 20 meq PO BID [facility] Last Admin: 11/23/17 08:26 Dose: 20 meq Prednisone (Deltasone Tab*) 40 mg PO DAILY [facility] Last Admin: 11/23/17 08:26 Dose: 40 mg Rivaroxaban (Xarelto(*)) 20 mg PO DAILY WITH MEAL@1700 [facility] Last Admin: 11/22/17 18:19 Dose: 20 mg Senna (Senokot Tab*) 1 tab PO Q12HR PRN PRN Reason: CONSTIPATION Torsemide (Demadex*) 20 mg PO DAILY [facility] Last Admin: 11/23/17 09:09 Dose: Not Given Vital Signs - 8 hr 11/23/17 11/23/17 11/23/17 06:37 08:00 08:32 Temperature 97.0 F Pulse Rate 62 Respiratory 18 18 20 Rate Blood Pressure 134/53 (mmHg) O2 Sat by Pulse 97 97 Oximetry 11/23/17 11/23/17 11/23/17 08:37 08:38 09:08 Temperature Pulse Rate Respiratory 16 16 16 Rate Blood Pressure (mmHg) O2 Sat by Pulse Oximetry 11/23/17 11/23/17 10:41 12:52 Temperature Pulse Rate Respiratory 18 16 Rate Blood Pressure (mmHg) O2 Sat by Pulse Oximetry Oxygen Devices in Use Now: Nasal Cannula Appearance: 62 yo M in nAD, aAOx3 Eyes: No Scleral Icterus, PERRLA Ears/Nose/Mouth/Throat: NL Teeth, Lips, Gums, Mucous Membranes Moist Neck: NL Appearance and Movements; NL JVP, Trachea Midline Respiratory: Symmetrical Chest Expansion and Respiratory Effort, Clear to Auscultation Cardiovascular: NL Sounds; No Murmurs; No JVD, RRR Abdominal: NL Sounds; No Tenderness; No Distention Lymphatic: No Cervical Adenopathy Extremities: - - +1 pedal edema Skin: No Nodules or Sclerosis, - - diffuse skin erythrematous trash improved, still present on b/l LE's. skin ulcers unchanged, weeping serous fluid. Neurological: Alert and Oriented x 3, NL Muscle Strength and Tone Result Diagrams: 11/23/17 06:49 11/23/17 06:49 Microbiology and Other Data: Microbiology 11/19/17 16:22 Aerobic Blood Culture - Preliminary Blood Venous No Growth Day 1 Anaerobic Blood Culture - Preliminary No Growth Day 1 11/19/17 15:50 Aerobic Blood Culture - Preliminary Blood Venous No Growth Day 1 Anaerobic Blood Culture - Preliminary No Growth Day 1 Assess/Plan/Problems-Billing Assessment: Patient is a 62yo male with a PMH for Obesity Hypoventilation syndrome, Chronic hypoxic and hypercarbic respiratory failure on prn 02, Multiple PEs, Morbid obesity, Diastolic HF, who presents with cellulitis and leg wounds - Patient Problems (1) Cellulitis of thigh Comment: appeas to be resolved, but developed skin erythema/drug reaction that occured after pt was started on clindamycin on 11/21/17 Vancomycin that was restarted on 11/21/17 was d/c'd on 11/22/17. Appreciate ID's assistance. No antibiotics for now apart for topical tx and wound care PT stated he developed diarrhea from Bactrim before and does not want to use it. (2) Chronic diastolic heart failure Comment: Cont torsemide at home dose at 20 mg. CXR shows vascular congestion-pt's baseline and same as on previous CXR (3) Pulmonary embolism Comment: - CTA 2016 showing PE - Continue xarelto. (4) Chronic respiratory failure Comment: - Chronic hypoxic and hypercarbic . on prn 02 at home - Continue BiPAP at night and supplemental 02 prn (5) Rash and nonspecific skin eruption Comment: supect from clindamycin, but will stop all antibiotics for now as well as probiotic that was started this admission. Cont Prednisone Improving (6) DVT prophylaxis Comment: - Xarelto Status and Disposition: inpatient
[2017-11-23] MEDS: Rivaroxaban TAB(*) 20 MG TAB PO SCH (16:45)
[2017-11-24 07:35] LABS: EGFR Non-African American 95.2 (>60)
[2017-11-24] MEDS: Potassium Chlor TAB* 20 MEQ TAB.ER PO SCH ×2 (09:09→20:23)
[2017-11-24] MEDS: oxyCODONE/Acetamin 5/325 MG* TAB PO PRN ×3 (09:09→22:59)
[2017-11-24] MEDS: predniSONE TAB* 20 MG PO SCH (09:10)
[2017-11-24] MEDS: Aspirin EC TAB* 81 MG TAB.EC PO SCH (09:10)
[2017-11-24] MEDS: Ferrous Sulfate TAB* 325 MG PO SCH (09:10)
[2017-11-24] MEDS: Torsemide TAB* 20 MG PO SCH ×2 (09:10→14:02)
--- NOTE | 2017-11-24 13:04 | PN ---
Subjective Date of Service: 11/24/17 Interval History: Feels better today. Left leg is hurting and the wound bled. Denies breathing problems. Requests to be discharged in AM Objective Active Medications: Acetaminophen (Tylenol Tab*) 650 mg PO Q4H PRN PRN Reason: FEVER/PAIN Albuterol (Ventolin Hfa Inhaler*) 2 puff INH Q4H PRN PRN Reason: SOB/WHEEZING Last Admin: 11/22/17 20:09 Dose: 2 puff Albuterol/Ipratropium (Duoneb (Albuterol 2.5 Mg/Ipratropium 0.5 Mg)) 1 neb INH Q4H PRN PRN Reason: SOB/WHEEZING Aspirin (Aspirin Ec Tab*) 81 mg PO DAILY [facility] Last Admin: 11/24/17 09:10 Dose: 81 mg Diphenhydramine HCl (Benadryl Po*) 25 mg PO Q6H PRN PRN Reason: Allergy Symptoms Last Admin: 11/23/17 21:11 Dose: 25 mg Docusate Sodium (Colace Cap*) 100 mg PO Q12H PRN PRN Reason: CONSTIPATION Ferrous Sulfate (Ferrous Sulfate Tab*) 325 mg PO DAILY [facility] Last Admin: 11/24/17 09:10 Dose: 325 mg Oxycodone/Acetaminophen (Percocet 5/325 Tab*) 2 tab PO Q4H PRN PRN Reason: PAIN Last Admin: 11/24/17 09:09 Dose: 2 tab Potassium Chloride (Klor Con Er Tab*) 20 meq PO BID [facility] Last Admin: 11/24/17 09:09 Dose: 20 meq Prednisone (Deltasone Tab*) 40 mg PO DAILY [facility] Last Admin: 11/24/17 09:10 Dose: 40 mg Rivaroxaban (Xarelto(*)) 20 mg PO DAILY WITH MEAL@1700 [facility] Last Admin: 11/23/17 16:45 Dose: 20 mg Senna (Senokot Tab*) 1 tab PO Q12HR PRN PRN Reason: CONSTIPATION Torsemide (Demadex*) 20 mg PO DAILY [facility] Last Admin: 11/24/17 09:10 Dose: Not Given Vital Signs - 8 hr 11/24/17 11/24/17 07:38 09:09 Temperature 97.7 F Pulse Rate 59 Respiratory 17 18 Rate Blood Pressure 114/68 (mmHg) O2 Sat by Pulse 91 Oximetry Oxygen Devices in Use Now: Nasal Cannula Appearance: 62 yo M, morbitly obese, in nAD, aAOx3 Eyes: No Scleral Icterus, PERRLA Ears/Nose/Mouth/Throat: NL Teeth, Lips, Gums, Mucous Membranes Moist Neck: NL Appearance and Movements; NL JVP, Trachea Midline Respiratory: Symmetrical Chest Expansion and Respiratory Effort, Clear to Auscultation Cardiovascular: NL Sounds; No Murmurs; No JVD, RRR Abdominal: NL Sounds; No Tenderness; No Distention Lymphatic: No Cervical Adenopathy Extremities: No Clubbing, Cyanosis, - - b/l LE's edema +1 Skin: No Nodules or Sclerosis, - - legs below the knee with dry flaky skin and several abrasion like lesions: one larger under r knee draining serous fluid, one on lateral left calf-bleeding. diffuse skin erythema present 2 days ago resolving, but still noted on b/l LE's-medial aspect of thighs-the most Neurological: Alert and Oriented x 3, NL Muscle Strength and Tone Result Diagrams: 11/23/17 06:49 11/24/17 06:51 Microbiology and Other Data: Microbiology 11/19/17 16:22 Aerobic Blood Culture - Preliminary Blood Venous No Growth Day 1 Anaerobic Blood Culture - Preliminary No Growth Day 1 11/19/17 15:50 Aerobic Blood Culture - Preliminary Blood Venous No Growth Day 1 Anaerobic Blood Culture - Preliminary No Growth Day 1 Assess/Plan/Problems-Billing Assessment: Patient is a 62yo male with a PMH for Obesity Hypoventilation syndrome, Chronic hypoxic and hypercarbic respiratory failure on prn 02, Multiple PEs, Morbid obesity, Diastolic HF, who presents with cellulitis and leg wounds - Patient Problems (1) Cellulitis of thigh Comment: appears to be resolved, but developed skin erythema/drug reaction that occured after pt was started on clindamycin on 11/21/17 Vancomycin that was restarted on 11/21/17 was d/c'd on 11/22/17. Appreciate ID's assistance. No antibiotics for now apart for topical tx and wound care PT stated he developed diarrhea from Bactrim before and does not want to use it. (2) Chronic diastolic heart failure Comment: Cont torsemide at home dose at 20 mg. CXR shows vascular congestion-pt's baseline and same as on previous CXR (3) Pulmonary embolism Comment: - CTA 2016 showing PE - Continue xarelto. (4) Chronic respiratory failure Comment: - Chronic hypoxic and hypercarbic . on prn 02 at home - Continue BiPAP at night and supplemental 02 prn -C02 levels elevated, but ABG indicating chronic C02 retention (5) Rash and nonspecific skin eruption Comment: supect from clindamycin. All antibiotics stopped for now as well as probiotic that was started this admission. Cont Prednisone Improving (6) DVT prophylaxis Comment: - Xarelto Status and Disposition: inpatient, likely d/c home tomorrow
[2017-11-24] MEDS: Rivaroxaban TAB(*) 20 MG TAB PO SCH (19:28)
[2017-11-25] MEDS: diPHENhydraMINE PO* 25 MG PO PRN ×3 (09:24→23:11)
[2017-11-25] MEDS: Torsemide TAB* 20 MG PO SCH (09:24)
[2017-11-25] MEDS: Aspirin EC TAB* 81 MG TAB.EC PO SCH (09:24)
[2017-11-25] MEDS: oxyCODONE/Acetamin 5/325 MG* TAB PO PRN ×3 (09:24→21:02)
[2017-11-25] MEDS: Potassium Chlor TAB* 20 MEQ TAB.ER PO SCH ×2 (09:24→21:03)
[2017-11-25] MEDS: Ferrous Sulfate TAB* 325 MG PO SCH (09:24)
[2017-11-25] MEDS: predniSONE TAB* 20 MG PO SCH (09:24)
[2017-11-25] MEDS ORDERED: Torsemide TAB* 20 MG PO ONE (11:13)
--- NOTE | 2017-11-25 15:23 | PN ---
Subjective Date of Service: 11/25/17 Interval History: Patient states that the rash on his arms has been spreading and is getting more itchy. Patient states that he has noticed some upper respiratory wheezing and increased SOB. Patient complains of persistent pain in legs. Patient denies CP, N/V, abdominal pain, F/C, dysuria, dizziness, palpitations, or other pain. Family History: Unchanged from Admission Social History: Unchanged from Admission Past Medical History: Unchanged from Admission Objective Active Medications: Acetaminophen (Tylenol Tab*) 650 mg PO Q4H PRN PRN Reason: FEVER/PAIN Albuterol (Ventolin Hfa Inhaler*) 2 puff INH Q4H PRN PRN Reason: SOB/WHEEZING Last Admin: 11/22/17 20:09 Dose: 2 puff Albuterol/Ipratropium (Duoneb (Albuterol 2.5 Mg/Ipratropium 0.5 Mg)) 1 neb INH Q4H PRN PRN Reason: SOB/WHEEZING Aspirin (Aspirin Ec Tab*) 81 mg PO DAILY [facility] Last Admin: 11/25/17 09:24 Dose: 81 mg Diphenhydramine HCl (Benadryl Po*) 25 mg PO Q6H PRN PRN Reason: Allergy Symptoms Last Admin: 11/25/17 09:24 Dose: 25 mg Docusate Sodium (Colace Cap*) 100 mg PO Q12H PRN PRN Reason: CONSTIPATION Ferrous Sulfate (Ferrous Sulfate Tab*) 325 mg PO DAILY [facility] Last Admin: 11/25/17 09:24 Dose: 325 mg Oxycodone/Acetaminophen (Percocet 5/325 Tab*) 2 tab PO Q4H PRN PRN Reason: PAIN Last Admin: 11/25/17 09:24 Dose: 2 tab Potassium Chloride (Klor Con Er Tab*) 20 meq PO BID [facility] Last Admin: 11/25/17 09:24 Dose: 20 meq Prednisone (Deltasone Tab*) 40 mg PO DAILY [facility] Last Admin: 11/25/17 09:24 Dose: 40 mg Rivaroxaban (Xarelto(*)) 20 mg PO DAILY WITH MEAL@1700 [facility] Last Admin: 11/24/17 19:28 Dose: 20 mg Senna (Senokot Tab*) 1 tab PO Q12HR PRN PRN Reason: CONSTIPATION Torsemide (Demadex*) 20 mg PO DAILY [facility] Last Admin: 11/25/17 09:24 Dose: 20 mg Vital Signs - 8 hr 11/25/17 11/25/17 11/25/17 08:00 09:24 11:20 Temperature Pulse Rate Respiratory 20 18 16 Rate Blood Pressure (mmHg) O2 Sat by Pulse Oximetry 11/25/17 13:30 Temperature 96.9 F Pulse Rate 72 Respiratory 18 Rate Blood Pressure 139/61 (mmHg) O2 Sat by Pulse 94 Oximetry Oxygen Devices in Use Now: Nasal Cannula Appearance: Patient is a 62yo male who appears stated age and is sitting in the bed in NAD. Eyes: No Scleral Icterus, PERRLA Ears/Nose/Mouth/Throat: NL Teeth, Lips, Gums, Clear Oropharnyx, Mucous Membranes Moist Neck: NL Appearance and Movements; NL JVP, Trachea Midline Respiratory: Symmetrical Chest Expansion and Respiratory Effort, - - Rales in B/ L Lower Lobes. Cardiovascular: NL Sounds; No Murmurs; No JVD, RRR, - - 1+ edema in B/L LE. Abdominal: NL Sounds; No Tenderness; No Distention, No Hepatosplenomegaly Lymphatic: No Cervical Adenopathy Extremities: No Clubbing, Cyanosis Skin: No Nodules or Sclerosis, - - B/L Open areas on legs covered in SYLVIA Wraps and Gauze. Neurological: Alert and Oriented x 3, NL Sensation, NL Muscle Strength and Tone , - - CN II-XII Result Diagrams: 11/23/17 06:49 11/24/17 06:51 Microbiology and Other Data: Microbiology 11/19/17 16:22 Aerobic Blood Culture - Preliminary Blood Venous No Growth Day 1 Anaerobic Blood Culture - Preliminary No Growth Day 1 11/19/17 15:50 Aerobic Blood Culture - Preliminary Blood Venous No Growth Day 1 Anaerobic Blood Culture - Preliminary No Growth Day 1 Assess/Plan/Problems-Billing Assessment: Patient is a 62yo male with a PMH for Obesity Hypoventilation syndrome, Chronic hypoxic and hypercarbic respiratory failure on prn 02, Multiple PEs, Morbid obesity, Diastolic HF, who presents with cellulitis and leg wounds - Patient Problems (1) Cellulitis of thigh Current Visit: No Status: Acute Code(s): L03.119 - CELLULITIS OF UNSPECIFIED PART OF LIMB SNOMED Code(s): 35973859 Comment: - Appears to be resolved, - Treated with Vancomycin and Clindamycin - No antibiotics for now apart for topical tx and wound care - PT stated he developed diarrhea from Bactrim before and does not want to use it. - Associated with chronic B/L LE wounds with acute worsening. (2) Chronic diastolic heart failure Current Visit: No Status: Acute Code(s): I50.32 - CHRONIC DIASTOLIC ( CONGESTIVE) HEART FAILURE SNOMED Code(s): 406939115 Comment: - Increased Fluid Retention possibly due to steroids. - Give extra dose of 20mg torsemide today. - Supplemental O2 as needed. (3) Atrial fibrillation Current Visit: No Status: Acute Code(s): I48.91 - UNSPECIFIED ATRIAL FIBRILLATION SNOMED Code(s): 13865832 Comment: - In NSR. - Xarelto (4) Hypoxemia Current Visit: No Status: Acute Code(s): R09.02 - HYPOXEMIA SNOMED Code(s) : 989537533 Comment: - Fluid overload and obesity hypoventilation - Oxygen PRN. (5) MRSA (methicillin resistant Staphylococcus aureus) Current Visit: No Status: Acute Code(s): A49.02 - [facility] Code(s): 949381290 Comment: - History of - Noted, Will cover when treating for Cellulitis (6) Metabolic alkalosis with respiratory acidosis Current Visit: No Status: Acute Code(s): E87.4 - MIXED DISORDER OF ACID- BASE BALANCE SNOMED Code(s): 786076934 Comment: - The patient has a mixed acid/base disturbance. - He has a chronically elevated CO2 likely secondary to obesity hypoventilation and appears to have compensated with increasing his serum bicarb. - This is worsened by contraction alkalosis when diuresis is needed. - Continue to monitor his acid base status. - Continue BiPAP at night. (7) Rash and nonspecific skin eruption Current Visit: No Status: Acute Code(s): R21 - RASH AND OTHER NONSPECIFIC SKIN ERUPTION SNOMED Code(s): 159427921 Comment: - Suspect from clindamycin. - All antibiotics stopped for now as well as probiotic that was started this admission. - Cont Prednisone and benadryl - Worsened today. Increased pruritis and erythema. - Discussed with ID and this rash could be expected to get worse before getting better. (8) Obesity hypoventilation syndrome Current Visit: No Status: Chronic Code(s): E66.2 - MORBID (SEVERE) OBESITY WITH ALVEOLAR HYPOVENTILATION SNOMED Code(s): 282090856 Comment: - Continue BiPAP. - Persistent hypercarbia associated with Metabolic Alkalosis and respiratory acidosis. (9) DVT prophylaxis Current Visit: No Status: Acute Code(s): XUC1839 - SNOMED Code(s): 045608384 Comment: - Sb (10) Full code status Current Visit: No Status: Acute Code(s): Z78.9 - OTHER SPECIFIED HEALTH STATUS SNOMED Code(s): 048731751 Comment: Status and Disposition: inpatient, likely d/c home tomorrow
[2017-11-25] MEDS: Rivaroxaban TAB(*) 20 MG TAB PO SCH (16:49)
[2017-11-26 07:36] LABS: ABS Basophils 0 10^3/ul (0-0.2); ABS Eosinophils 0.1 10^3/ul (0-0.6); ABS Lymphocytes 1.5 10^3/ul (1.0-4.8); ABS Monocytes 0.7 10^3/ul (0-0.8); ABS Neutrophils 6.7 10^3/ul (1.5-7.7); ABS Nucleated RBC 0 10^3/ul; Eosinophil % 0.9 % (0-6); Hematocrit 44 % (42-52); Hemoglobin 14.1 g/dl (14.0-18.0); Lymphocyte % 16.7 % (25-47); Mean Corpuscular HGB Conc 32 g/dl (31-36); Mean Corpuscular Hemoglobin 27 pg (27-31); Mean Corpuscular Volume 83 fL (80-94); Mean Platelet Volume 8.6 um3 (7.4-10.4); Nucleated Red Blood Cells % 0; Platelet Count 179 10^3/ul (150-450); Red Blood Count 5.26 10^6/ul (4.00-5.40); Red Cell Distribution Width 19 % (10.5-15)
[2017-11-26 07:53] LABS: EGFR Non-African American 112.4 (>60)
[2017-11-26] MEDS: oxyCODONE/Acetamin 5/325 MG* TAB PO PRN (08:16)
[2017-11-26] MEDS: Aspirin EC TAB* 81 MG TAB.EC PO SCH (08:16)
[2017-11-26] MEDS: predniSONE TAB* 20 MG PO SCH (08:16)
[2017-11-26] MEDS: Torsemide TAB* 20 MG PO SCH (08:16)
[2017-11-26] MEDS: Potassium Chlor TAB* 20 MEQ TAB.ER PO SCH (08:16)
[2017-11-26] MEDS: Ferrous Sulfate TAB* 325 MG PO SCH (08:16)
[2017-11-26 12:00] VITALS: BP 129/67
--- NOTE | 2017-11-27 23:36 | DS ---
CC: Dr. Javier Gilliland * DISCHARGE SUMMARY: DATE OF ADMISSION: 11/21/17 DATE OF DISCHARGE: 11/26/17 PRIMARY CARE PROVIDER: Javier Gilliland MD MY ATTENDING WHILE IN THE HOSPITAL: Avelino Guerrero MD * (DICTATED BY ZA ZACARIAS) PRIMARY DISCHARGE DIAGNOSIS: Leg wounds, possible cellulitis, morbilliform drug reaction. SECONDARY DISCHARGE DIAGNOSES: 1. Chronic obstructive pulmonary disease. 2. Obstructive sleep apnea. 3. Paroxysmal atrial fibrillation. 4. History of DVT. 5. Chronic hypoxic respiratory failure. 6. Diastolic congestive heart failure, pacemaker due to sick sinus syndrome. 7. Nephrolithiasis. 8. Bilateral lymphedema status post bilateral transmetatarsal amputations. 9. History of MRSA cellulitis. STUDIES DONE WHILE IN THE HOSPITAL: Chest x-ray from 11/23/17 read as cardiomegaly and pulmonary interstitial edema. MEDICATIONS AT DISCHARGE: 1. Docusate 100 mg p.o. b.i.d. as needed. 2. Aspirin 81 mg p.o. daily. 3. Nitroglycerin 0.4 mg sublingual q. 5 minutes as needed for angina. 4. Rivaroxaban 20 mg p.o. daily. 5. Senokot S 1 tab p.o. q. 12 hours as needed. 6. Torsemide 20 mg p.o. daily. 7. Albuterol 2 puffs inhalation q. 4 hours as needed. 8. Benadryl 25 mg p.o. q. 6 hours as needed. 9. Ferrous sulfate 325 mg p.o. daily. 10. Percocet 5/325 1 tab p.o. q. 4 hours as needed. 11. Potassium chloride 10 mEq p.o. daily as needed for increased dose of torsemide. 12. Torsemide 10 to 20 mg p.o. daily as needed for mild to moderate fluid overload. HOSPITAL COURSE: This is a brief summary of the patient's presentation. For more details, please see history and physical from Dr. Mary Johnston on . In brief, the patient is a 62-year-old male with past medical history significant for the above, who has been admitted to this institution numerous times in the past, who came back in for exacerbation of his leg wounds, which have been chronic and related to lymphedema for which he is going to the [facility] for a protracted period of time. He has been wrapping them with Flo wraps and when his aide was unwrapping his legs, the Flo wrap stuck and ripped off some skin with them. The patient continued to obtain wound care, but noticed that there is worsening erythema in his legs, extending proximally. The patient denied any other associated symptoms such as fevers, chills, dizziness, shortness of breath. The patient was admitted to the hospital for observation. The patient had no fevers, tachycardia, hypotension. The patient was initially started on vancomycin, but was switched to clindamycin and to Bactrim, this was not used. The patient had not noted signs of fluid overload in his legs and his torsemide dose was increased. The patient had no other acute issues. The patient on 12/02/17 started developing a rash around the site of his clindamycin infusion and to his legs and spread up his torso. This progressed over several days. The patient was seen in consultation by Dr. Wilber Bryan of Infectious Disease who believed this was a morbilliform drug reaction associated with clindamycin without systemic symptoms. The erythema in his legs seems to have resolved at this point, so any gauze was discontinued. The patient was started on prednisone and Benadryl as needed. The patient was continued on prednisone and had some worsening shortness of breath. The patient's torsemide dose was increased, which helped in having improvement with shortness of breath. The patient had no shortness of breath, the patient during his hospitalization had high carbon dioxide levels , which is not uncommon for him. ABG was obtained, which was consistent with his previous baseline levels. The patient developed slight leukocytosis, likely due to prednisone. The patient's rash remained stable and started to improve. On 11/26/17, the patient was stable enough to discharge to home. The patient requested that due to his frequent episodes of fluid overload and difficulty with transportation to the hospital that he be able to titrate his own torsemide for moderate signs of fluid overload. PHYSICAL EXAMINATION: General: The patient is a 62-year-old male who has a prominent morbilliform rash on his face and chest. Vital signs at the time of discharge, temperature 97.7, pulse rate 75, respiratory rate 16, oxygen saturation 91% on 3 L, blood pressure 129/67. HEENT: Head: Normocephalic, atraumatic. Sclerae anicteric. No conjunctival injection. Nasal mucosa moist. Oral mucosa moist. No pharyngeal erythema, discharge, or exudate. Neck: Supple and nontender. No lymphadenopathy. No carotid bruits auscultated. No JVD noticed. Cardiac: Regular rate and rhythm. No clicks, murmurs, gallops, or rubs. Pulses are 2+ in bilateral dorsalis pedis, posterior tibialis, and radial areas. Trace bilateral lower extremity edema noted. Respiratory: Clear to auscultation bilaterally. Diminished throughout. No clicks, murmurs, gallops or rubs throughout. Abdomen: Soft, nontender, nondistended. Bowel sounds present. Normoactive in all 4 quadrants. No hepatosplenomegaly. No abdominal bruits auscultated. No hepatojugular reflux. Genitourinary: No suprapubic or CVA tenderness. Skin: Widespread morbilliform rash, itch does sandra and associated prius, improved from previous exam. Neuro: Cranial nerves II through XII were intact. No focal deficits. Alert and oriented x3. Psychiatric: Pleasant and appropriate. LABORATORY DATA ON THE DAY OF DISCHARGE: White blood cell count 9.0, hemoglobin 14.1, platelet count 179. Sodium 140, potassium 3.9, chloride 93, carbon dioxide 42, anion gap 5, BUN 17, creatinine 0.71, glucose 107, calcium 93 , magnesium 2.4. DISCHARGE PLAN: The patient will be discharged to home. The patient will have help from his aides who he had previously contracted with help with ADLs. The patient has transportation arranged to [facility] [place] [facility] Wednesday to reestablish care due to laceration of the wound on his legs. The patient will have wound care with nonadhesive bandages, covered with ABD, wool gauze and Flo wraps, he will have silver alendronate in the weeping areas and daily care with soap and water. This regimen can be changed at the wound clinic. The patient should follow up with Dr. Gilliland on Wednesday12/01/17 which has been arranged. Transportation to his primary care has been arranged. The patient should discuss his torsemide regimen with his primary care doctor. The patient has been provided with a prescription for p.r.n. torsemide and p.r.n. potassium to compensate for increased urine calcinosis. He is taking extra torsemide. If patient finds he is using this frequently, the patient should call his primary care provider for adjustments to his daily torsemide dose. The patient should continue on BiPAP at night oxygen as needed. The patient should continue on prednisone for 3 more days and then stop. The patient should have Benadryl as needed for itching. The patient should return to hospital for any symptoms of severe shortness of breath, significantly worsening rash, chest pain or other alarming symptoms. TIME SPENT: Approximately 60 minutes was spent on the discharge of this patient , 30 was spent [id number] with the patient obtaining history and physical and discussing the treatment plan. ZA ZACARIAS [id number]/CPS #: [id number]
== END 2017-11-26 14:45 | disposition home or self-care (01) | DRG 383 ==
LOC: ED 15:12 → MED 16:53 → OBSVTOIN 11-21 12:05
PROVIDERS: ADMIT Internal Medicine; ATTEND Internal Medicine
PROC: 5A09357 Assistance with Respiratory Ventilation, Less than 24 Consecutive Hours, Continuous Positive Airway Pressure (ICD-10-PCS; principal; 2017-11-19)
DX: L03.115 Cellulitis of right lower limb (principal); E66.2 Morbid (severe) obesity with alveolar hypoventilation; I50.32 Chronic diastolic (congestive) heart failure; J96.11 Chronic respiratory failure with hypoxia; J96.12 Chronic respiratory failure with hypercapnia; Z68.43 Body mass index [BMI] 50.0-59.9, adult; E87.4 Mixed disorder of acid-base balance; I11.0 Hypertensive heart disease with heart failure; I25.10 Atherosclerotic heart disease of native coronary artery without angina pectoris; Z86.718 Personal history of other venous thrombosis and embolism; Z86.711 Personal history of pulmonary embolism; E78.00 Pure hypercholesterolemia, unspecified; E11.51 Type 2 diabetes mellitus with diabetic peripheral angiopathy without gangrene; J44.9 Chronic obstructive pulmonary disease, unspecified; K42.9 Umbilical hernia without obstruction or gangrene; M19.90 Unspecified osteoarthritis, unspecified site; E11.40 Type 2 diabetes mellitus with diabetic neuropathy, unspecified; F32.9 Major depressive disorder, single episode, unspecified; I87.2 Venous insufficiency (chronic) (peripheral); G47.33 Obstructive sleep apnea (adult) (pediatric); I48.0 Paroxysmal atrial fibrillation; L03.116 Cellulitis of left lower limb; Z91.030 Bee allergy status; Z91.018 Allergy to other foods; Z81.8 Family history of other mental and behavioral disorders; Z86.73 Personal history of transient ischemic attack (TIA), and cerebral infarction without residual deficits; Z95.0 Presence of cardiac pacemaker; Z87.442 Personal history of urinary calculi; Z86.14 Personal history of Methicillin resistant Staphylococcus aureus infection; Z99.81 Dependence on supplemental oxygen; Z87.01 Personal history of pneumonia (recurrent); Z83.3 Family history of diabetes mellitus; Z89.432 Acquired absence of left foot; Z89.431 Acquired absence of right foot; Z23 Encounter for immunization; Z79.82 Long term (current) use of aspirin; Z79.01 Long term (current) use of anticoagulants; R21 Rash and other nonspecific skin eruption; T36.8X5A Adverse effect of other systemic antibiotics, initial encounter; D72.829 Elevated white blood cell count, unspecified; T38.0X5A Adverse effect of glucocorticoids and synthetic analogues, initial encounter; R06.02 Shortness of breath
CPT/HCPCS: 36415; 36600; 71045; 80048; 80053; 81003; 81015; 82803; 83605; 83735; 84484; 85025; 85027; 85610; 86140; 87040; 87086; 94660; 99285; A9270-GY; G8978-GP-CL; G8979-GP-CK; G8979-GP-CL; J1200; J1940; J3370; J7512

== ENCOUNTER 2018-05-09 10:13 | Inpatient (IN) | payer MEDICAID ==
[2018-05-09] MEDS ORDERED: methylPREDNISolone 125 MG* 2 ML VIAL IV ONE (10:39)
[2018-05-09] MEDS ORDERED: Albuterol/Ipratropium NEB.SOL* Albuterol 2.5 MG/Ipratropium 0.5 MG 3 ML INH ONE (10:39)
--- NOTE | 2018-05-09 10:42 | ED ---
Shortness of Breath - HPI Summary HPI Summary: Pt is a 62 y/o M presenting to the ED brought in by EMS for shortness of breath. He states that over the weekend, his SpO2 was steadily between 72-76%, and he had a fair amount of wheezing this morning. He has black mold problems in his building which he is hypersensitive to, and he uses an oxygen concentrator at night. At baseline, he walks short distances with a walker and does not use oxygen time clerk. - History of Current Complaint Chief Complaint: EDRespiratoryDistress Time Seen by Provider: 05/09/18 10:26 Hx Obtained From: Patient Onset/Duration: Gradual Onset, Lasting Days, Still Present Timing: Constant Current Severity: Moderate Dyspnea At: Exertion Aggrevating Factors: Allergens - black mold in building Alleviating Factors: Nothing Associated Signs & Symptoms: Wheezing Related History: Obesity - Allergy/Home Medications Allergies/Adverse Reactions: Allergies Allergy/AdvReac Type Severity Reaction Status Date / Time clindamycin Allergy Intermediate Pruritus, Verified 05/09/18 10:29 Flushing of Skin apple Allergy Unknown Verified 05/09/18 10:29 Reaction Details bee venom protein (honey bee) Allergy Anaphylatic Verified 05/09/18 10:29 Shock walnut Allergy Anaphylatic Verified 05/09/18 10:29 Shock PMH/Surg Hx/FS Hx/Imm Hx Previously Healthy: No Endocrine/Hematology History: Reports: Hx Anticoagulant Therapy - xarelto, Hx Diabetes, Hx Anemia, Other Endocrine/Hematological Disorders - hypoglycemia Denies: Hx Systemic Lupus Erythematosus Cardiovascular History: Reports: Hx Congestive Heart Failure, Hx Coronary Artery Disease, Hx Deep Vein Thrombosis, Hx Embolism - pulmonary embolism, takes xarelto, Hx Hypercholesterolemia, Hx Hypertension, Hx Pacemaker/ICD, Hx Peripheral Vascular Disease - SSS, Hx Syncope, Other Cardiovascular Problems/ Disorders - cardiac cath Respiratory History: Reports: Hx Chronic Obstructive Pulmonary Disease (COPD) - on 2L home O2, Hx Pneumonia, Hx Pulmonary Embolism, Hx Seasonal Allergies, Hx Sleep Apnea, Other Respiratory Problems/Disorders - SLEEP APNEA, ON 2 L O2 @ NIGHT, obesity hypoventilation Denies: Hx Asthma, Hx Bronchopulmonary Dysplasia, Hx Chronic Bronchitis, Hx Cystic Fibrosis, Hx Lung Cancer, Hx Pleural Effusion, Hx Pulmonary Edema GI History: Reports: Hx Gastrointestinal Bleed, Hx Hiatal Hernia, Other GI Disorders - umbilical hernia, stool softener at home, constipation Denies: Hx Cirrhosis, Hx Crohn's Disease, Hx Diverticulosis, Hx Gall Bladder Disease, Hx Gastroesophageal Reflux Disease, Hx Irritable Bowel, Hx Jaundice, Hx Obstructive Bowel, Hx Ileostomy, Hx Pyloric Stenosis, Hx Ulcer History: Reports: Hx Acute Renal Failure, Hx Chronic Renal Failure, Hx Kidney Stones, Hx Renal Disease - 3 episodes of renal failure Denies: Hx Benign Prostatic Hyperplasia, Hx Dialysis, Hx Kidney Infection, Other Problems/Disorders Musculoskeletal History: Reports: Hx Arthritis, Hx Back Problems, Other Musculoskeletal History - bilateral metatarsal amputation Denies: Hx Rheumatoid Arthritis, Hx Bursitis, Hx Congenital Bone Abnormalities Sensory History: Reports: Hx Contacts or Glasses - not with pt, Other Sensory Impairments - Neuropathy in feet Denies: Hx Deafness, Hx Hearing Aid Opthamlomology History: Reports: Hx Contacts or Glasses - not with pt, Other Sensory Impairments - Neuropathy in feet Neurological History: Reports: Hx Headaches, Other Neuro Impairments/Disorders - frequent syncope, pt states possible stroke in past Psychiatric History: Reports: Hx Depression Denies: Hx of Violent Episodes Against Others - Cancer History Hx Chemotherapy: No - Surgical History Surgery Procedure, Year, and Place: Bilateral metatarsal amputations. Pacemaker. Surgical ureterolith extraction Hx Anesthesia Reactions: No - Immunization History Date of Tetanus Vaccine: PT STATES UNSURE Date of Influenza Vaccine: NONE Infectious Disease History: Yes Infectious Disease History: Reports: Hx of Known/Suspected MRSA Denies: Traveled Outside the [place] in Last 30 Days - Family History Known Family History: Positive: Diabetes Negative: Other - denies FHx of depression - Social History Alcohol Use: None Hx Substance Use: Yes - Narcotics Substance Use Type: Reports: Other Substance Use Comment - Amount & Last Used: chronic narcotic use Hx Tobacco Use: No Smoking Status (MU): Never Smoked Tobacco Have You Smoked in the Last Year: No Review of Systems Negative: Fever Positive: Shortness Of Breath Positive: Weakness All Other Systems Reviewed And Are Negative: Yes Physical Exam - Summary Physical Exam Summary: Appearance: Obese, no pain distress Skin: warm, dry, reflects adequate perfusion Head/face: normal Eyes: EOMI, ELENA ENT: normal Neck: supple, non-tender Respiratory: Bilateral wheezes, Cardiovascular: RRR, pulses symmetrical Abdomen: non-tender, soft Musculoskeletal: bilateral pitting edema with bandage, strength/ROM intact Neuro: A&Ox3 Triage Information Reviewed: Yes Vital Signs On Initial Exam: Initial Vitals Temp Pulse Resp BP Pulse Ox 98.8 F 65 20 114/50 92 05/09/18 10:19 05/09/18 10:19 05/09/18 10:19 05/09/18 10:19 05/09/18 10:19 Vital Signs Reviewed: Yes Diagnostics - Vital Signs Vital Signs Temp Pulse Resp BP Pulse Ox 05/09/18 10:19 98.8 F 65 20 114/50 92 - Laboratory Result Diagrams: 05/09/18 11:04 05/09/18 11:04 Lab Statement: Any lab studies that have been ordered have been reviewed, and results considered in the medical decision making process. - Radiology Chest x-ray Radiology Interpretation Completed By: Radiologist Summary of Radiographic Findings: CARDIOMEGALY. PULMONARY ARTERIES ARE MARKEDLY ENLARGED IDENTIFIED ON A PRIOR CHEST CT. INTERSTITIAL EDEMA AND VASCULAR CONGESTION IS NOTED. ED physician has reviewed this report. - EKG 1039 Cardiac Rate: NL - 60bpm EKG Rhythm: Sinus Rhythm ST Segment: Non-Specific Ectopy: None Course/Dx - Course Course Of Treatment: Pt is a 62 y/o M presenting with a chief complaint of sob. He reports a black mold problem in his building which he is sensitive to, and a low O2 sat over the weekend, as well as wheezing this morning. He states he has a hx of COPD, ambulates with a walker, and uses an O2 concentrator at night. A chest x-ray shows cardiomegaly, with pulmonary arteries markedly enlarged. Interstital edema and vascular congestion is noted. - Diagnoses Differential Diagnosis/HQI/PQRI: Positive: Asthma, CHF, COPD Exacerbation, Pneumonia Provider Diagnoses: COPD with acute exacerbation, Hypoxia, CHF (congestive heart failure), SOB ( shortness of breath), Respiratory failure with hypoxia and hypercapnia - Critical Care Time Critical Care Time: 30-74 min Discharge - Sign-Out/Discharge Documenting (check all that apply): Patient Departure - Discharge Plan Condition: Stable Disposition: ADMITTED TO [facility] Referrals: Javier Gilliland MD [Primary Care Provider] - - Billing Disposition and Condition Condition: STABLE Disposition: Admitted to [facility] - Attestation Statements Document Initiated by Scribe: Yes Documenting Scribe: Carrie Wetzel Provider For Whom Scribe is Documenting (Include Credential): Tenzin Flynn MD. Scribe Attestation: I, Carrie Wetzel, scribed for Tenzin Flynn MD. on 05/09/18 at 1407. Scribe Documentation Reviewed: Yes Provider Attestation: The documentation as recorded by the scribe, Carrie Wetzel accurately reflects the service I personally performed and the decisions made by me, Tenzin Flynn MD. Status of Scribe Document: Viewed Consult Consult: 1230 - Spoke with Dr. Agee about the pt's present condition who [place] the [place] [facility] [place]
[2018-05-09 11:13] LABS: ABS Basophils 0 10^3/ul (0-0.2); ABS Eosinophils 0.1 10^3/ul (0-0.6); ABS Monocytes 0.5 10^3/ul (0-0.8); ABS Neutrophils 4.6 10^3/ul (1.5-7.7); ABS Nucleated RBC 0 10^3/ul; Eosinophil % 2.1 %; Hematocrit 44 % (42-52); Hemoglobin 14.2 g/dl (14.0-18.0); Lymphocyte % 15.4 %; Mean Corpuscular HGB Conc 32 g/dl (31-36); Mean Corpuscular Hemoglobin 28 pg (27-31); Mean Corpuscular Volume 87 fL (80-94); Mean Platelet Volume 9.3 fL (7.4-10.4); Nucleated Red Blood Cells % 0.1; Platelet Count 158 10^3/ul (150-450); Red Blood Count 5.09 10^6/ul (4.00-5.40); Red Cell Distribution Width 17 % (10.5-15); White Blood Count 6.2 10^3/ul (3.5-10.8)
[2018-05-09 11:20] LABS: Activated Partial Thrombo Time 36.9 seconds (26.0-36.3); INR 1.31 (0.77-1.02)
[2018-05-09] MEDS ORDERED: Albuterol/Ipratropium NEB.SOL* Albuterol 2.5 MG/Ipratropium 0.5 MG 3 ML ONE (11:20)
[2018-05-09 11:37] LABS: Albumin 3.5 g/dL (3.2-5.2); Calcium 9.7 mg/dL (8.6-10.3); EGFR Non-African American 79.4 (>60); Globulin 3.6 g/dL (2-4); Total Bilirubin 0.9 mg/dL (0.2-1.0); Total Protein 7.1 g/dL (6.4-8.9)
[2018-05-09 11:39] LABS: Troponin I 0.01 ng/mL (<0.04)
[2018-05-09] MEDS ORDERED: Al Hydrox/Mg Hydrox/Simet LIQ* 30 ML UDC PO PRN (13:44)
[2018-05-09] MEDS ORDERED: Magnesium Hydroxide LIQ* 30 ML UDC PO PRN (13:44)
[2018-05-09] MEDS ORDERED: Albuterol/Ipratropium NEB.SOL* Albuterol 2.5 MG/Ipratropium 0.5 MG 3 ML INH PRN (13:44)
[2018-05-09] MEDS ORDERED: Albuterol 2.5 MG/3 ML NEB.SOL* (0.083%) INH PRN (13:44)
[2018-05-09] MEDS ORDERED: Albuterol HFA INHALER* 8 gm MDI INH PRN (13:48)
[2018-05-09] MEDS ORDERED: Furosemide IV* 10 MG/ML 10 ML VIAL (100 MG) IV ONE (13:56)
[2018-05-09] MEDS ORDERED: Vancomycin(*) 2,000 MG in NS 0.9% 500 ML* 500 ML IVPB ONE (14:28)
[2018-05-09] MEDS ORDERED: Vancomycin per Pharmacy* NOTE FOLLOW UP SCH (15:00)
--- NOTE | 2018-05-09 16:26 | HP ---
CC: Dr. Gilliland; Dr. Valencia * [facility] MEDICINE HISTORY AND PHYSICAL REPORT: DATE OF ADMISSION: 05/09/18 PROVIDER: Latisha Cisse NP. PRIMARY CARE PROVIDER: Dr. Gilliland. ATTENDING PHYSICIAN WHILE IN THE HOSPITAL: Dr. Ele Agee * (dictated by Latisha Cisse NP). CHIEF COMPLAINT: Shortness of breath. HISTORY OF PRESENT ILLNESS: Mr. Shafer is a 62-year-old male with a past medical history significant for DVT/PE; on chronic Xarelto, COPD, obesity hypoventilation syndrome, obstructive sleep apnea; wears BiPAP at night with 3 L of oxygen, atrial fibrillation with pacemaker secondary to sick sinus syndrome , chronic diastolic congestive heart failure, nephrolithiasis, history of MRSA cellulitis, bilateral lymphedema to the lower extremities who presents to the emergency room with complaints of increased shortness of breath. The patient reports that his oxygen concentrator quit last night and he currently has a broken hospital bed, so he is unable to elevate his legs and elevate his head. His reports that since Wednesday night, he has had progressive worsening of his shortness of breath. He does report that he has a cough with clear frothy secretions. He reports that his O2 saturation at home has been anywhere from 72 % to 76%. Due to his increased shortness of breath, he called [facility], who transported him to the emergency room for further evaluation. The patient denies any fever or chills. Denies any hemoptysis. He does report cough and shortness of breath. He does report chest pain with episodes of difficulty breathing. He denies any nausea, vomiting, diarrhea, abdominal pain, gross hematuria, dysuria, focal weakness, or sensory loss. Denies any visual complaints, dysphagia, arthralgias, myalgias, rashes, lesions. He does report some mild depression, which he reports is stable. The patient does report that since Wednesday he has increased his diuretic at home. He reports that he has been taking furosemide 60 mg instead of his daily dose of 20. He does report he has had no further urine output with the increased dose of furosemide. The patient was seen and had routine blood work drawn and ABG in the emergency room. His pH was 7.6, pCO2 was 59, pO2 was 76, HCO3 was 29.5, O2 saturation was 96% on 4 L. His BNP was 68. Troponin was negative at 0.01. Due to his hypoxic respiratory failure and low O2 saturations requiring oxygen therapy, we were asked to see and evaluate him for admission. PAST MEDICAL HISTORY: 1. History of DVT/PE, on chronic Xarelto. 2. COPD with chronic hypoxic respiratory failure. 3. Hypoventilation syndrome, obesity related. 4. Obstructive sleep apnea, on BiPAP at night with 3 L O2. 5. Atrial fibrillation with pacemaker secondary to sick sinus syndrome. 6. Chronic diastolic congestive heart failure. 7. Nephrolithiasis history. 8. History of MRSA cellulitis. 9. Bilateral lower extremity lymphedema. PAST SURGICAL HISTORY: 1. Bilateral metatarsal amputations. 2. Pacemaker placement. 3. Lithotripsy with stent placement. HOME MEDICATIONS: 1. Furosemide 20 mg p.o. daily. 2. Prednisone 20 mg p.o. daily p.r.n., currently not taking. 3. Benadryl 25 mg p.o. q.6 hours as needed. 4. Senna 1 tablet p.o. q.12 hours as needed. 5. Xarelto 20 mg p.o. daily. 6. Potassium chloride 20 mEq p.o. daily. 7. Nitroglycerin 0.4 mg sublingually q.5 minutes as needed. 8. Ferrous sulfate 325 mg p.o. daily - currently not taking. 9. Docusate 100 mg p.o. b.i.d. p.r.n. constipation. 10. Aspirin 81 mg p.o. daily. 11. Albuterol 2 puffs q.4 hours as needed for shortness of breath. ALLERGIES: To CLINDAMYCIN, apple skin, pear, bee venom, and walnuts. FAMILY HISTORY: The patient reports his mother had diabetes and dementia and at the age of 86. Father with a history of lung cancer, from lung cancer at the age of 87. SOCIAL HISTORY: The patient reports never smoked. He denies any alcohol or illicit drug use. He currently lives alone with supportive aide services. His healthcare proxy is his brother, J Luis. He is a full code. REVIEW OF SYSTEMS: A review of 14 systems was completed. All those pertinent positives are mentioned in the HPI. PHYSICAL EXAMINATION GENERAL: Mr. Shafer is a 62-year-old male, resting on the stretcher in the emergency room. He does not appear to be in any acute distress. VITAL SIGNS: Temperature was 98.8, pulse was 65, respirations were 20, O2 saturation 92% on 4 L nasal cannula, blood pressure 114/50. HEENT: Head is atraumatic, normocephalic. Eyes: EOMs are intact. Sclerae anicteric and not pale. Oral mucosa appeared to be moist. No oropharyngeal erythema. NECK: Supple. He does have erythema noted to the skin folds on his neck. LUNGS: Diminished bilaterally with expiratory wheezes and crackles in the bases bilaterally. CARDIAC: S1, S2. Regular rate and rhythm. No murmurs, rubs, or gallops. ABDOMEN: Obese, soft. Bowel sounds are present x4. EXTREMITIES: Pedal pulses are +1 bilaterally. He does have mild lower extremity edema. He does have bilateral lower extremities with scaly dry skin and multiple open wounds, largest being on the lower anterior aspect of the right lower leg. He is able to move all 4 extremities with 5/5 strength. NEUROLOGIC: He is awake, alert, oriented x3. Handgrips are equal. Tongue is midline. Speech is clear. There are no gross focal deficits. SKIN: He does have pink-colored skin to bilateral lower extremities with dry, scaly skin. He does have an open ulceration noted to the right lower leg on the lateral aspect. DIAGNOSTIC STUDIES/LAB DATA: WBCs are 6.2, RBCs 5.09, hemoglobin 14.2, hematocrit 44, platelet count 158. INR was 1.31, APTT was 36.9; pH was 7.36, pCO2 was 59, pO2 was 76, HCO3 was 29.5, ABG O2 saturation was 96% on 4 L nasal cannula. Sodium 141, potassium 4.0, chloride 99, carbon dioxide was 36, anion gap was 6, BUN was 23, creatinine 0.96, glucose was 113, lactic acid was 1.4, calcium 9.7. Total bilirubin 0.90, ASTs were 16, ALTs were 13, alkaline phosphatase was 35. Initial troponin was 0.01, BNP was 68. He had a chest x-ray, radiologist's impression: Pulmonary arteries are markedly enlarged as identified on a prior chest CT. Interstitial edema and vascular congestion is noted. He had an electrocardiogram, which showed sinus rhythm at a rate of 60, QTc is 461. ASSESSMENT AND PLAN: Mr. Shafer is a 62-year-old male who presented to the emergency room with complaints of progressively worsening shortness of breath since Wednesday. We were asked to see and evaluate him due to his shortness of breath and hypoxic respiratory failure. He will be admitted under observation for: 1. [id number]-ic-cfvrtum hypoxic respiratory failure. I suspect this is related to possible exacerbation of diastolic congestive heart failure versus chronic obstructive pulmonary disease exacerbation. The patient does have crackles in bilateral lower lung bases and did have O2 saturations at home between 72% and 76%. He also reports that he has increased his diuretic at home with no increased urine output. We will give him a one-time dose of furosemide 60 mg IV. I also feel the patient does have some underlying chronic obstructive pulmonary disease exacerbation. We will continue him on prednisone as he does have expiratory wheezes in the lungs at 40 mg p.o. daily. Continue nebulizer treatments as needed for shortness of breath. At this time, I will hold off on placing the patient on antibiotics as he is not febrile, denies increased production of sputum. 2. Obstructive sleep apnea. He will need BiPAP at night with 3 L of oxygen. 3. History of deep venous thrombosis and pulmonary embolism. The patient will continue on Xarelto as previously prescribed. 4. Atrial fibrillation with pacemaker placement. He will continue on Xarelto, aspirin, and metoprolol 12.5 mg p.o. b.i.d. 5. Bilateral lower extremity wounds. I have consulted Wound Care for further recommendations on wound care management of his bilateral lower legs. The patient does wear Flo wraps to the bilateral lower extremities and has them changed once weekly. He reports at home they use Aquacel to the open wounds as well as gauze and Karon wrap and then wrap with Flo bandage. I will get a wound culture of the right lower extremity that is currently pending. 6. DVT prophylaxis. He will continue on Xarelto. Due to the concern for diastolic congestive heart failure, SCDs are contraindicated. 7. FEN: He can have a regular diet. He will need supplementation with Ensure as the patient does drink Ensure twice daily at home. 8. Code status: He is a full code. TIME SPENT: Time spent on this admission was 60 minutes, greater than half that time was spent at the bedside reviewing events leading thus far to his admission, performing physical exam, and reviewing my plan of care. I have discussed this with my attending, Dr. Ele Agee; she is in agreement with my plan. LATISHA CISSE, CANE STRIPPER [id number]/ROBERT #: [id number] KIET
[2018-05-09] MEDS: Metoprolol Tartrate TAB* 25 MG PO SCH (22:07)
[2018-05-09] MEDS: diPHENhydraMINE PO* 25 MG PO PRN (22:07)
[2018-05-09] MEDS: Acetaminophen TAB* 325 MG PO PRN (22:07)
[2018-05-10] MEDS: Vancomycin(*) 1,500 MG in NS 0.9% 250 ML* 250 ML IVPB SCH ×3 (02:29→17:50)
[2018-05-10 07:38] LABS: BUN/Creatinine Ratio 24.7 (8-20); Calcium 9.4 mg/dL (8.6-10.3); EGFR African American 110.5 (>60); EGFR Non-African American 91.3 (>60); Potassium 4.1 mmol/L (3.5-5.0)
[2018-05-10 07:44] LABS: ABS Basophils 0 10^3/ul (0-0.2); ABS Eosinophils 0 10^3/ul (0-0.6); ABS Lymphocytes 0.6 10^3/ul (1.0-4.8); ABS Monocytes 0.6 10^3/ul (0-0.8); ABS Neutrophils 5.5 10^3/ul (1.5-7.7); ABS Nucleated RBC 0 10^3/ul; Eosinophil % 0.1 %; Hematocrit 44 % (42-52); Hemoglobin 14.2 g/dl (14.0-18.0); Lymphocyte % 9.5 %; Mean Corpuscular HGB Conc 32 g/dl (31-36); Mean Corpuscular Hemoglobin 28 pg (27-31); Mean Corpuscular Volume 87 fL (80-94); Mean Platelet Volume 9.8 fL (7.4-10.4); Nucleated Red Blood Cells % 0; Platelet Count 167 10^3/ul (150-450); Red Cell Distribution Width 16 % (10.5-15); White Blood Count 6.7 10^3/ul (3.5-10.8)
[2018-05-10] MEDS: Aspirin EC TAB* 81 MG TAB.EC PO SCH (09:42)
[2018-05-10] MEDS: Metoprolol Tartrate TAB* 25 MG PO SCH ×2 (09:42→22:01)
[2018-05-10] MEDS: Rivaroxaban TAB(*) 20 MG TAB PO SCH (09:43)
[2018-05-10] MEDS: Potassium Chlor TAB* 20 MEQ TAB.ER PO SCH (09:43)
[2018-05-10] MEDS: predniSONE TAB* 20 MG PO SCH (09:43)
--- NOTE | 2018-05-10 13:29 | PN ---
Subjective Date of Service: 05/10/18 Interval History: Pt states that he has black mold in his apartment, which has caused him to have a flair up of his COPD. He states he is experiencing allergy symptoms and has an increase in cough and wheezing. He has h/o heart failure and COPD. He states that, since yesterday, his breathing is improved, but he still has a little wheezing. He states that the has a hospital bed and an O2 concentrator that are both in need of repair; he has an appointment for 05/30 to assess need for hospital bed. Pt states he is eating well and trying to increase his intake of protein to promote healing of his LE wounds. He uses a bedpan for urination and defecation here, as he is afraid of slipping and falling; at home, he uses walker or wheelchair. Pt continue to c/o dry cough and a slightly elevated temperature, as high as 99.1. He denies CP. He denies abd pain, n/v/d/c. He denies calf pain. Pt has chronic wounds on b/l LE, which are managed by a visiting county home demonstrator. He occasionally goes to [facility] when needed. Objective Active Medications: Acetaminophen (Tylenol Tab*) 650 mg PO Q4H PRN PRN Reason: FEVER/PAIN Last Admin: 05/09/18 22:07 Dose: 650 mg Al Hydrox/Mg Hydrox/Simethicone (Maalox Plus*) 30 ml PO Q6H PRN PRN Reason: INDIGESTION Last Admin: 05/09/18 22:08 Dose: 30 ml Albuterol (Ventolin 2.5 Mg/3 Ml Neb.Brandy*) 2.5 mg INH [id number] AWAKE PRN PRN Reason: sob/wheezing Albuterol (Ventolin Hfa Inhaler*) 2 puff INH Q4H PRN PRN Reason: SOB/WHEEZING Albuterol/Ipratropium (Duoneb (Albuterol 2.5 Mg/Ipratropium 0.5 Mg)) 1 neb INH [id number] AWAKE PRN PRN Reason: sob/wheezing Aspirin (Aspirin Ec Tab*) 81 mg PO DAILY [facility] Last Admin: 05/10/18 09:42 Dose: 81 mg Diphenhydramine HCl (Benadryl Po*) 25 mg PO Q6H PRN PRN Reason: Allergy Symptoms Last Admin: 05/09/18 22:07 Dose: 25 mg Docusate Sodium (Colace Cap*) 100 mg PO BID PRN PRN Reason: CONSTIPATION Vancomycin HCl 1,500 mg/ (Sodium Chloride) 250 mls @ 166.667 mls/hr IVPB Q8H [facility] Last Admin: 05/10/18 11:02 Dose: 166.667 mls/hr Magnesium Hydroxide (Milk Of Magntahir Liq*) 30 ml PO Q4H PRN PRN Reason: CONSTIPATION Metoprolol Tartrate (Lopressor Tab*) 12.5 mg PO BID [facility] Last Admin: 05/10/18 09:42 Dose: 12.5 mg Pharmacy Consult (Vancomycin Per Pharmacy*) 1 note FOLLOW UP .VANC PER PHARMACY [facility] Pharmacy Profile Note (Vancomycin Trough Check) 1 note FOLLOW UP ONCE ONE Stop: 05/11/18 09:31 Potassium Chloride (Klor Con Er Tab*) 20 meq PO DAILY [facility] Last Admin: 05/10/18 09:43 Dose: 20 meq Prednisone (Deltasone Tab*) 40 mg PO DAILY [facility] Last Admin: 05/10/18 09:43 Dose: 40 mg Rivaroxaban (Xarelto(*)) 20 mg PO DAILY [facility] Last Admin: 05/10/18 09:43 Dose: 20 mg Vital Signs - 8 hr 05/10/18 05/10/18 05/10/18 07:19 08:00 11:34 Temperature 98.0 F 98.2 F Pulse Rate 59 62 Respiratory 16 21 18 Rate Blood Pressure 143/59 128/63 (mmHg) O2 Sat by Pulse 94 95 Oximetry Oxygen Devices in Use Now: Nasal Cannula Appearance: Pt is sitting up in bed with HOB elevated and LE slightly elevated. He is in no acute distress. Eyes: No Scleral Icterus, PERRLA Ears/Nose/Mouth/Throat: NL Teeth, Lips, Gums, Mucous Membranes Moist Neck: NL Appearance and Movements; NL JVP, Trachea Midline Respiratory: Symmetrical Chest Expansion and Respiratory Effort - Lung sounds decreased b/l. Wheeze heard. Without rhonchi or rales. Cardiovascular: NL Sounds; No Murmurs; No JVD, RRR Abdominal: NL Sounds; No Tenderness; No Distention, No Hepatosplenomegaly Extremities: No Clubbing, Cyanosis, - - B/l LE wounds wrapped with CDI dressing. 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 Neurological: Alert and Oriented x 3 Result Diagrams: 05/10/18 06:59 05/10/18 06:59 Assess/Plan/Problems-Billing Assessment: Pt is a 62yom with PMHx COPD, JAIDEN, AF with sick sinus syndrome and PPM, diastolic HF, lymphedema, and h/o DVT/PE who presentd with SOB. - Patient Problems (1) Acute and chronic respiratory failure with hypoxia Current Visit: No Status: Acute Code(s): J96.21 - ACUTE AND CHRONIC RESPIRATORY FAILURE WITH HYPOXIA SNOMED Code(s): 63527714 Comment: -95% on 4L O2- pt uses 3L O2 at bedtime and prn at home; wheeze continues -Continue nebulizers, ventolin -Restart home med Torsemide at 20 -Continue Prednisone 40 (day 2) (2) Wound of lower extremity Comment: -Bandages changed this morning; wound nurse saw pt: "recently managed at home with weekly wraps and compression stockings. on exam today he has one superficial open area R lateral lower leg 2.5x1x0.1cm. moisturize legs, calcium alginate to open area. wrap legs with gauze and johanna weekly" -Wound is MRSA positive; continue vanco (3) Atrial fibrillation Comment: -Tele shows NSR -Continue Xarelto, metoprolol (4) Obstructive sleep apnea Comment: -Pt has Bipap with 3L O2 (5) DVT prophylaxis Comment: -Xarelto (6) Full code status Comment: Status and Disposition: Observation. Discharge when stable.
[2018-05-10] MEDS: Torsemide TAB* 20 MG PO SCH (15:17)
[2018-05-10] MEDS ORDERED: Magnesium CITRATE* 300 ML BTL PO PRN (16:55)
[2018-05-10] MEDS: diPHENhydraMINE PO* 25 MG PO PRN (22:02)
[2018-05-11] MEDS: Vancomycin(*) 1,500 MG in NS 0.9% 250 ML* 250 ML IVPB SCH ×3 (02:12→18:02)
[2018-05-11 06:38] LABS: ABS Basophils 0 10^3/ul (0-0.2); ABS Eosinophils 0.1 10^3/ul (0-0.6); ABS Lymphocytes 0.9 10^3/ul (1.0-4.8); ABS Monocytes 0.6 10^3/ul (0-0.8); ABS Neutrophils 4.6 10^3/ul (1.5-7.7); ABS Nucleated RBC 0 10^3/ul; Eosinophil % 1.5 %; Hematocrit 45 % (42-52); Lymphocyte % 14.5 %; Mean Corpuscular HGB Conc 31 g/dl (31-36); Mean Corpuscular Hemoglobin 28 pg (27-31); Mean Corpuscular Volume 88 fL (80-94); Mean Platelet Volume 9.8 fL (7.4-10.4); Nucleated Red Blood Cells % 0.1; Platelet Count 169 10^3/ul (150-450); Red Blood Count 5.06 10^6/ul (4.00-5.40); Red Cell Distribution Width 17 % (10.5-15); White Blood Count 6.2 10^3/ul (3.5-10.8)
[2018-05-11 06:56] LABS: BUN/Creatinine Ratio 25.6 (8-20); Calcium 9.2 mg/dL (8.6-10.3); EGFR Non-African American 90.1 (>60); Potassium 4.3 mmol/L (3.5-5.0)
[2018-05-11] MEDS: predniSONE TAB* 20 MG PO SCH (08:37)
[2018-05-11] MEDS: Metoprolol Tartrate TAB* 25 MG PO SCH ×2 (08:38→21:51)
[2018-05-11] MEDS: Rivaroxaban TAB(*) 20 MG TAB PO SCH (08:38)
[2018-05-11] MEDS: Aspirin EC TAB* 81 MG TAB.EC PO SCH (08:38)
[2018-05-11] MEDS: Potassium Chlor TAB* 20 MEQ TAB.ER PO SCH (08:39)
[2018-05-11] MEDS: Torsemide TAB* 20 MG PO SCH (08:40)
[2018-05-11] MEDS ORDERED: Vancomycin Trough Check NOTE FOLLOW UP ONE (09:30)
--- NOTE | 2018-05-11 18:18 | PN ---
Subjective Date of Service: 05/11/18 Interval History: . Patient reports he is doing much better today and wheezing has improved denies SOB today. Denies fever or chills. No sputum production. Objective Active Medications: Acetaminophen (Tylenol Tab*) 650 mg PO Q4H PRN PRN Reason: FEVER/PAIN Last Admin: 05/09/18 22:07 Dose: 650 mg Al Hydrox/Mg Hydrox/Simethicone (Maalox Plus*) 30 ml PO Q6H PRN PRN Reason: INDIGESTION Last Admin: 05/09/18 22:08 Dose: 30 ml Albuterol (Ventolin 2.5 Mg/3 Ml Neb.Brandy*) 2.5 mg INH [id number] AWAKE PRN PRN Reason: sob/wheezing Albuterol (Ventolin Hfa Inhaler*) 2 puff INH Q4H PRN PRN Reason: SOB/WHEEZING Albuterol/Ipratropium (Duoneb (Albuterol 2.5 Mg/Ipratropium 0.5 Mg)) 1 neb INH [id number] AWAKE PRN PRN Reason: sob/wheezing Aspirin (Aspirin Ec Tab*) [address] [facility] Last Admin: 05/11/18 08:38 Dose: 81 mg Diphenhydramine HCl (Benadryl Po*) 25 mg PO Q6H PRN PRN Reason: Allergy Symptoms Last Admin: 05/10/18 22:02 Dose: 25 mg Docusate Sodium (Colace Cap*) 100 mg PO BID PRN PRN Reason: CONSTIPATION Vancomycin HCl 1,500 mg/ (Sodium Chloride) 250 mls @ 166.667 mls/hr IVPB Q12H [facility] Last Admin: 05/11/18 18:02 Dose: 166.667 mls/hr Magnesium Citrate (Citrate Of Magnesia*) 300 ml PO DAILY PRN PRN Reason: CONSTIPATION Last Admin: 05/10/18 17:49 Dose: 300 ml Magnesium Hydroxide (Milk Of Magnesia Liq*) 30 ml PO Q4H PRN PRN Reason: CONSTIPATION Metoprolol Tartrate (Lopressor Tab*) 12.[address] [facility] Last Admin: 05/11/18 08:38 Dose: 12.5 mg Pharmacy Consult (Vancomycin Per Pharmacy*) 1 note FOLLOW UP .VANC PER PHARMACY [facility] Pharmacy Profile Note (Vancomycin Trough Check) 1 note FOLLOW UP .ENTER TIME ONE Stop: 05/13/18 05:31 Potassium Chloride (Klor Con Er Tab*) [address] [facility] Last Admin: 05/11/18 08:39 Dose: 20 meq Prednisone (Deltasone Tab*) [address] [facility] Last Admin: 05/11/18 08:37 Dose: 40 mg Rivaroxaban (Xarelto(*)) [address] [facility] Last Admin: 05/11/18 08:38 Dose: 20 mg Torsemide (Demadex*) [address] [facility] Last Admin: 05/11/18 08:40 Dose: 20 mg Oxygen Devices in Use Now: Nasal Cannula, BiPAP Appearance: morbidly obese male in NAD, A+O x3 Eyes: No Scleral Icterus, PERRLA Ears/Nose/Mouth/Throat: NL Teeth, Lips, Gums, Mucous Membranes Moist Neck: NL Appearance and Movements; NL JVP Respiratory: Symmetrical Chest Expansion and Respiratory Effort, - - dissicult to ausulate due to obesity Cardiovascular: NL Sounds; No Murmurs; No JVD, RRR, No Edema Abdominal: NL Sounds; No Tenderness; No Distention, - - obese Extremities: - - trace edema. s/p transmetarsal amputation bilaterally - johanna wraps and bandages in place. Neurological: Alert and Oriented x 3, NL Sensation Lines/Tubes/Other Access: Clean, Dry and Intact Peripheral IV Nutrition: Taking PO's Result Diagrams: 05/11/18 06:14 05/11/18 06:14 Microbiology and Other Data: Microbiology 05/10/18 15:15 Skin and Soft Tissue MRSA/MSSA (PCR - Final Leg Right Mrsa Positive S.aureus Positive Gram Stain - Final Wound Culture - Preliminary Staphylococcus Aureus Providencia Stuartii Assess/Plan/Problems-Billing Assessment: Pt is a 62yom with PMHx COPD, JAIDEN, AF with sick sinus syndrome and PPM, diastolic HF, lymphedema, and h/o DVT/PE who presentd with SOB. - Patient Problems (1) Acute and chronic respiratory failure with hypoxia Comment: - cope exacerbation vs CHF exacerbation -95% on 4L O2- pt uses 3L O2 at bedtime and prn at home (was in 70s prior to admission); wheezing improving - titrating O2 today to 3 1/2 L -Continue nebulizers, ventolin -Continue Torsemide at 20mg -Continue Prednisone 40 (day 3) - daily weights if possibly - contnue Bipap (2) Obstructive sleep apnea Comment: -Pt has Bipap with 3L O2 (3) Wound of lower extremity Comment: -appreciate wound nurse consult "recently managed at home with weekly wraps and compression stockings. on exam he has one superficial open area R lateral lower leg 2.5x1x0.1cm. moisturize legs, calcium alginate to open area. wrap legs with gauze and johanna weekly" -Wound is MRSA positive; vanco for now (4) Atrial fibrillation Comment: -Tele shows NSR -Continue Xarelto, metoprolol (5) DVT prophylaxis Comment: - Xarelto Status and Disposition: Inpatient. Discharge when stable. Patient is waiting for hospital bed at home to be fixed prior to dc
[2018-05-11] MEDS: Docusate CAP* 100 MG PO PRN (21:52)
[2018-05-11] MEDS: diPHENhydraMINE PO* 25 MG PO PRN (21:52)
[2018-05-12] MEDS: Acetaminophen TAB* 325 MG PO PRN ×2 (02:53→22:14)
[2018-05-12] MEDS: Vancomycin(*) 1,500 MG in NS 0.9% 250 ML* 250 ML IVPB SCH (05:44)
[2018-05-12 08:20] LABS: ABS Basophils 0.1 10^3/ul (0-0.2); ABS Eosinophils 0.1 10^3/ul (0-0.6); ABS Lymphocytes 1.6 10^3/ul (1.0-4.8); ABS Monocytes 0.6 10^3/ul (0-0.8); ABS Nucleated RBC 0 10^3/ul; Eosinophil % 2.2 %; Hematocrit 47 % (42-52); Hemoglobin 14.6 g/dl (14.0-18.0); Lymphocyte % 24.5 %; Mean Corpuscular HGB Conc 31 g/dl (31-36); Mean Corpuscular Hemoglobin 28 pg (27-31); Mean Corpuscular Volume 88 fL (80-94); Mean Platelet Volume 10.2 fL (7.4-10.4); Nucleated Red Blood Cells % 0.1; Platelet Count 162 10^3/ul (150-450); Red Blood Count 5.25 10^6/ul (4.00-5.40); Red Cell Distribution Width 17 % (10.5-15); White Blood Count 6.4 10^3/ul (3.5-10.8)
[2018-05-12 08:22] LABS: BUN/Creatinine Ratio 25.6 (8-20); Calcium 9.1 mg/dL (8.6-10.3); EGFR African American 115.2 (>60); EGFR Non-African American 95.2 (>60)
[2018-05-12] MEDS: Potassium Chlor TAB* 20 MEQ TAB.ER PO SCH (10:11)
[2018-05-12] MEDS: Torsemide TAB* 20 MG PO SCH (10:12)
[2018-05-12] MEDS: Metoprolol Tartrate TAB* 25 MG PO SCH ×2 (10:12→22:17)
[2018-05-12] MEDS: Aspirin EC TAB* 81 MG TAB.EC PO SCH (10:12)
[2018-05-12] MEDS: predniSONE TAB* 20 MG PO SCH (10:12)
[2018-05-12] MEDS: Rivaroxaban TAB(*) 20 MG TAB PO SCH (10:12)
--- NOTE | 2018-05-12 15:54 | PN ---
Subjective Date of Service: 05/12/18 Interval History: Patient is feeling better today. Patient complains of persistent intermittent SOB. Patient denies abdominal pain. Patient has persistent issues with mold in his apartment which he identifies as a trigger for his COPD. Patient denies dizziness, CP, N/V, abdominal pain, F/C, dysuria, anuria, or other pain. Patient denies Pain in his LE. Family History: Unchanged from Admission Social History: Unchanged from Admission Past Medical History: Unchanged from Admission Objective Active Medications: Acetaminophen (Tylenol Tab*) 650 mg PO Q4H PRN PRN Reason: FEVER/PAIN Last Admin: 05/12/18 02:53 Dose: 650 mg Al Hydrox/Mg Hydrox/Simethicone (Maalox Plus*) 30 ml PO Q6H PRN PRN Reason: INDIGESTION Last Admin: 05/09/18 22:08 Dose: 30 ml Albuterol (Ventolin 2.5 Mg/3 Ml Neb.Brandy*) 2.5 mg INH [id number] AWAKE PRN PRN Reason: sob/wheezing Albuterol (Ventolin Hfa Inhaler*) 2 puff INH Q4H PRN PRN Reason: SOB/WHEEZING Albuterol/Ipratropium (Duoneb (Albuterol 2.5 Mg/Ipratropium 0.5 Mg)) 1 neb INH [id number] AWAKE PRN PRN Reason: sob/wheezing Aspirin (Aspirin Ec Tab*) 81 mg PO DAILY [facility] Last Admin: 05/12/18 10:12 Dose: 81 mg Diphenhydramine HCl (Benadryl Po*) 25 mg PO Q6H PRN PRN Reason: Allergy Symptoms Last Admin: 05/11/18 21:52 Dose: 25 mg Docusate Sodium (Colace Cap*) 100 mg PO BID PRN PRN Reason: CONSTIPATION Last Admin: 05/11/18 21:52 Dose: 100 mg Vancomycin HCl 1,500 mg/ (Sodium Chloride) 250 mls @ 166.667 mls/hr IVPB Q12H [facility] Last Admin: 05/12/18 05:44 Dose: 166.667 mls/hr Magnesium Citrate (Citrate Of Magnesia*) 300 ml PO DAILY PRN PRN Reason: CONSTIPATION Last Admin: 05/10/18 17:49 Dose: 300 ml Magnesium Hydroxide (Milk Of Magntahir Liq*) 30 ml PO Q4H PRN PRN Reason: CONSTIPATION Metoprolol Tartrate (Lopressor Tab*) 12.5 mg PO BID [facility] Last Admin: 05/12/18 10:12 Dose: 12.5 mg Pharmacy Consult (Vancomycin Per Pharmacy*) 1 note FOLLOW UP .VANC PER PHARMACY [facility] Pharmacy Profile Note (Vancomycin Trough Check) 1 note FOLLOW UP .ENTER TIME ONE Stop: 05/13/18 05:31 Potassium Chloride (Klor Con Er Tab*) 20 meq PO DAILY [facility] Last Admin: 05/12/18 10:11 Dose: 20 meq Prednisone (Deltasone Tab*) 40 mg PO DAILY [facility] Last Admin: 05/12/18 10:12 Dose: 40 mg Rivaroxaban (Xarelto(*)) 20 mg PO DAILY [facility] Last Admin: 05/12/18 10:12 Dose: 20 mg Torsemide (Demadex*) 20 mg PO DAILY [facility] Last Admin: 05/12/18 10:12 Dose: 20 mg Vital Signs - 8 hr 05/12/18 05/12/18 05/12/18 08:00 08:12 11:57 Temperature 98.3 F 97.7 F Pulse Rate 54 64 Respiratory 16 18 20 Rate Blood Pressure 135/69 125/58 (mmHg) O2 Sat by Pulse 93 90 Oximetry Oxygen Devices in Use Now: Nasal Cannula Appearance: Patient is a 62yo male who appears stated age and is sitting in the bed in [facility]. Eyes: No Scleral Icterus, PERRLA Ears/Nose/Mouth/Throat: NL Teeth, Lips, Gums, Clear Oropharnyx, Mucous Membranes Moist Neck: NL Appearance and Movements; NL JVP, Trachea Midline Respiratory: Symmetrical Chest Expansion and Respiratory Effort, - - Expiratory wheezes throughout. Diminished. Cardiovascular: NL Sounds; No Murmurs; No JVD, RRR, - - Trace LE Edema. Abdominal: NL Sounds; No Tenderness; No Distention, No Hepatosplenomegaly Lymphatic: No Cervical Adenopathy Extremities: No Clubbing, Cyanosis, - - B/L Toes surgically absent. B/L Leg wounds covered in dressings and not visualized. Neurological: Alert and Oriented x 3, NL Sensation, NL Muscle Strength and Tone , - - CN II-XII intact. Result Diagrams: 05/12/18 07:51 05/12/18 07:51 Microbiology and Other Data: Microbiology 05/10/18 15:15 Skin and Soft Tissue MRSA/MSSA (PCR - Final Leg Right Mrsa Positive S.aureus Positive Gram Stain - Final Wound Culture - Preliminary Staphylococcus Aureus Providencia Stuartii Assess/Plan/Problems-Billing Assessment: Pt is a 62yom with PMHx COPD, JAIDEN, AF with sick sinus syndrome and PPM, diastolic HF, lymphedema, and h/o DVT/PE who presentd with SOB and was fons to be in CHF and COPD exacerbation and is improving with diuresis, steroids, and inhalers. - Patient Problems (1) Acute and chronic respiratory failure with hypoxia Current Visit: Yes Status: Acute Code(s): J96.21 - ACUTE AND CHRONIC RESPIRATORY FAILURE WITH HYPOXIA SNOMED Code(s): 17965713 Comment: - Caused by COPD exacerbation and likely CHF exacerbation - Low 90s on 3L O2, was in 70s on RA at presentation - Continue nebulizers, ventolin - Continue Torsemide at 20mg - Continue Prednisone 40 (day 3) - daily weights if possible - continue Bipap with oxygen at night (2) Obstructive sleep apnea Current Visit: Yes Status: Acute Code(s): G47.33 - OBSTRUCTIVE SLEEP APNEA ( ADULT) (PEDIATRIC) SNOMED Code(s): 95834947 Comment: -Pt has Bipap with 3L O2 - Hypercapnea improving based on BMP (3) Wound of lower extremity Current Visit: Yes Status: Acute Code(s): S81.809A - UNSPECIFIED OPEN WOUND , UNSPECIFIED LOWER LEG, INIT ENCNTR SNOMED Code(s): 076377327 Comment: - Appreciate wound nurse consult "recently managed at home with weekly wraps and compression stockings. on exam he has one superficial open area R lateral lower leg 2.5x1x0.1cm. moisturize legs, calcium alginate to open area. wrap legs with gauze and johanna weekly" -Wound is MRSA positive and Providencia Positive - Switch to Bactrim (4) Atrial fibrillation Current Visit: Yes Status: Chronic Code(s): I48.91 - UNSPECIFIED ATRIAL FIBRILLATION SNOMED Code(s): 97930219 Comment: -Tele shows NSR -Continue Xarelto, metoprolol (5) Chronic diastolic heart failure Current Visit: No Status: Acute Code(s): I50.32 - CHRONIC DIASTOLIC ( CONGESTIVE) HEART FAILURE SNOMED Code(s): 250747476 Comment: - Appears euvolemic - Continue Toresemide at home dose now. (6) Full code status Current Visit: No Status: Acute Code(s): Z78.9 - OTHER SPECIFIED HEALTH STATUS SNOMED Code(s): 575588644 Comment: (7) DVT prophylaxis Current Visit: Yes Status: Acute Code(s): KGL5353 - SNOMED Code(s): 427562427 Comment: - Xarelto Status and Disposition: Inpatient. Discharge when stable. Hopeful D/C in 1-2 days.
[2018-05-12 19:24] LABS: Calcium 8.9 mg/dL (8.6-10.3); EGFR Non-African American 79.4 (>60); Potassium 4.7 mmol/L (3.5-5.0)
--- NOTE | 2018-05-12 19:35 | CONS ---
PULMONARY CONSULTATION REPORT: DATE OF CONSULT: 05/12/18 CONSULTATION REQUESTED BY: ZA Coughlin REASON FOR CONSULT: Evaluation of shortness of breath, hypoxemic and hypercapnic respiratory failure. HISTORY OF PRESENT ILLNESS: The patient is a 62-year-old male, morbidly obese with history of PE, on Xarelto; chronic lower extremity edema; cor pulmonale; COPD; obesity hyperventilation syndrome; obstructive sleep apnea, on BiPAP and 3 L of oxygen; atrial fibrillation status post pacemaker; sick sinus syndrome; chronic diastolic heart failure; nephrolithiasis; MRSA cellulitis, and chronic lymph edema. The patient is known to me from prior evaluation. The patient presents for evaluation of worsening shortness of breath. The patient reports that his O2 concentrator has broken recently and his hospital bed was not functioning and had hard time breathing. The patient reports that his shortness of breath has been gradually worsening recently. The patient reports that he is having mould exposure at home and that is exacerbating his breathing complaints. The patient reports that he feels better when he is out of his house and symptoms return when he is back in that home environment. The patient reports compliance with oxygen and BiPAP at night. The patient reports that his symptoms did not improve with inhalers and he called the ambulance. The patient noted to be hypoxemic with O2 sats in low 70s. The patient denied any other symptoms like nausea, vomiting, diarrhea, abdominal pain, hematuria, arthralgias, visual complaints, chest pain. The patient reports feeling slightly better here. The patient was found to be in hypoxemic hypocapnic respiratory failure. He was found to be fluid overloaded and was given Lasix with good diuresis. He was initiated on treatment for acute CHF, and COPD exacerbation. PAST MEDICAL HISTORY: 1. DVT/PE, on Xarelto. 2. COPD, chronic hypoxemic respiratory failure. 3. Hypoventilation secondary to morbid obesity. 4. Obstructive sleep apnea, on BiPAP and 3 L O2. 5. Atrial fibrillation with pacemaker placement and sick sinus syndrome. 6. Chronic diastolic heart failure. 7. Chronic lower extremity lymphedema. 8. Nephrolithiasis. 9. MRSA cellulitis. PAST SURGICAL HISTORY: 1. Bilateral metatarsal amputations. 2. Pacemaker placement. 3. Lithotripsy with stent placement. MEDICATIONS: At home: 1. Furosemide. 2. Prednisone. 3. Benadryl. 4. Senna. 5. Xarelto. 6. Potassium. 7. Nitroglycerin. 8. Ferrous sulfate. 9. Docusate. 10. Aspirin. 11. Albuterol. ALLERGIES: CLINDAMYCIN, APPLE SKIN, PEAR, BEE VENOM, and WALNUTS. FAMILY HISTORY: Mother had diabetes and dementia, and at age of 86. Father had a history of lung cancer, at age of 87. SOCIAL HISTORY: Never smoker, no alcohol or drug abuse. The patient lives alone at home with supportive aid services. REVIEW OF SYSTEMS: All 14 systems reviewed and as per HPI. PHYSICAL EXAM: The patient is morbidly obese, in bed, in no apparent distress. Vital Signs: Temperature 97.7, pulse 64 beats per minute, respiratory rate 20 per minute, O2 sat 90% on 3 L, blood pressure 125/58. HEENT: Pupils are equal and reactive to light. Mucous membranes moist. Lungs: Diminished air entry bilaterally, distant breath sounds, expiratory wheeze present. Cardiovascular: S1 and S2 present and regular. Abdomen: Obese, bowel sounds present, nontender, nondistended. Extremities: Chronic skin changes and lymphedema. Normal range of motion. Skin: Lymphedema changes. Neuro: Alert, awake, and oriented x3. No focal deficits. DIAGNOSTIC STUDIES/LAB DATA: WBC count 6.1, hemoglobin 14.6, hematocrit 47, platelet count 162. Blood gas analysis showed respiratory acidosis with pH of 7.36, PCO2 59, PO2 76 on 4 L FiO2, and bicarb of 29.5. Sodium was 140, potassium 4.0, chloride 97, bicarb 39. BUN 21, creatinine 0.82. BNP 68. Chest x-ray was personally reviewed by me, evidence of airspace opacities and prominence of hilum suggestive of fluid overload and pulmonary hypertension. IMPRESSION AND RECOMMENDATIONS: 62-year-old morbidly obese male with history of obesity hypoventilation, obstructive sleep apnea, cor pulmonale, and significant cardiac history with worsening shortness breath and found to be having acute on chronic hypercapnic respiratory failure and hypoxemic respiratory failure. 1. Acute chronic obstructive pulmonary disease exacerbation. 2. Acute congestive heart failure exacerbation. 3. Acute on chronic hypercapnic respiratory failure secondary to obesity hypoventilation syndrome. The patient has been compliant with BiPAP, however, continues to have significant hypoxemic respiratory failure and hypercapnia. He would be best treated with Trilogy, which would ensure enough tidal volume for him and would be best for the management of his obesity hypoventilation syndrome. The also provides symptoms concerning for hypersensitivity pneumonitis. The patient reports exposure of mould and fungus at home, which is causing his issues. I would recommend having the patient move to a different area if feasible, would help with that. The patient is also morbidly obese and reports that he is working on loosing weight. I agree with current management for CHF and COPD exacerbation. Thank you for allow me to participate in the care of your patient. Will follow up with you. [id number]/[facility] #: [id number] KIET
[2018-05-12] MEDS: guaiFENesin ER TAB 600 MG PO PRN (22:15)
[2018-05-12] MEDS: Sulfamethox/Trimethoprim DS 800/160* TAB PO SCH (22:16)
[2018-05-12] MEDS: diPHENhydraMINE PO* 25 MG PO PRN (22:16)
[2018-05-12] MEDS: Docusate CAP* 100 MG PO PRN (22:18)
[2018-05-13] MEDS ORDERED: Vancomycin Trough Check NOTE FOLLOW UP ONE (05:30)
[2018-05-13 07:23] LABS: EGFR African American 125.8 (>60); EGFR Non-African American 103.9 (>60); Magnesium 2.3 mg/dL (1.9-2.7); Vancomycin Trough 6.5 mcg/mL
[2018-05-13] MEDS: Aspirin EC TAB* 81 MG TAB.EC PO SCH (10:46)
[2018-05-13] MEDS: Sulfamethox/Trimethoprim DS 800/160* TAB PO SCH ×2 (10:46→22:29)
[2018-05-13] MEDS: Rivaroxaban TAB(*) 20 MG TAB PO SCH (10:46)
[2018-05-13] MEDS: Metoprolol Tartrate TAB* 25 MG PO SCH ×2 (10:46→22:28)
[2018-05-13] MEDS: Torsemide TAB* 20 MG PO SCH (10:46)
[2018-05-13] MEDS: predniSONE TAB* 20 MG PO SCH (10:46)
--- NOTE | 2018-05-13 18:50 | PN ---
Subjective Date of Service: 05/13/18 Interval History: Resting in bed on assessment. Reports he feels improved today, but continues to have intermittent sob and is concerned as he is still requiring o2 during then day and he does not usually need it during the day at home. Reports he has a pulse ox monitor at home and during the day on room air he is usually 94%. Denies cp, palpitations, nausea, vomiting, pain, dizziness, fever, chills. Patient expressing concern about mold in apartment and how this is effecting his COPD and also reports neighbors have also had trouble with mold causing them medical issues. Family History: Unchanged from Admission Social History: Unchanged from Admission Past Medical History: Unchanged from Admission Objective Active Medications: Acetaminophen (Tylenol Tab*) 650 mg PO Q4H PRN PRN Reason: FEVER/PAIN Last Admin: 05/12/18 22:14 Dose: 650 mg Al Hydrox/Mg Hydrox/Simethicone (Maalox Plus*) 30 ml PO Q6H PRN PRN Reason: INDIGESTION Last Admin: 05/09/18 22:08 Dose: 30 ml Albuterol (Ventolin 2.5 Mg/3 Ml Neb.Brandy*) 2.5 mg INH [id number] AWAKE PRN PRN Reason: sob/wheezing Albuterol (Ventolin Hfa Inhaler*) 2 puff INH Q4H PRN PRN Reason: SOB/WHEEZING Albuterol/Ipratropium (Duoneb (Albuterol 2.5 Mg/Ipratropium 0.5 Mg)) 1 neb INH [id number] AWAKE PRN PRN Reason: sob/wheezing Aspirin (Aspirin Ec Tab*) 81 mg PO DAILY [facility] Last Admin: 05/13/18 10:46 Dose: 81 mg Diphenhydramine HCl (Benadryl Po*) 25 mg PO Q6H PRN PRN Reason: Allergy Symptoms Last Admin: 05/12/18 22:16 Dose: 25 mg Docusate Sodium (Colace Cap*) 100 mg PO BID PRN PRN Reason: CONSTIPATION Last Admin: 05/12/18 22:18 Dose: 100 mg Guaifenesin (Mucinex*) 1,200 mg PO BID PRN PRN Reason: COUGH Last Admin: 05/12/18 22:15 Dose: 1,200 mg Magnesium Citrate (Citrate Of Magnesia*) 300 ml PO DAILY PRN PRN Reason: CONSTIPATION Last Admin: 05/10/18 17:49 Dose: 300 ml Magnesium Hydroxide (Milk Of Magnesia Liq*) 30 ml PO Q4H PRN PRN Reason: CONSTIPATION Metoprolol Tartrate (Lopressor Tab*) 12.5 mg PO BID [facility] Last Admin: 05/13/18 10:46 Dose: 12.5 mg Prednisone (Deltasone Tab*) 40 mg PO DAILY [facility] Last Admin: 05/13/18 10:46 Dose: 40 mg Rivaroxaban (Xarelto(*)) 20 mg PO DAILY [facility] Last Admin: 05/13/18 10:46 Dose: 20 mg Senna (Senokot Tab*) 1 tab PO DAILY PRN PRN Reason: CONSTIPATION Torsemide (Demadex*) 20 mg PO DAILY [facility] Last Admin: 05/13/18 10:46 Dose: 20 mg Trimethoprim/Sulfamethoxazole (Bactrim Ds 800/160 Tab*) 1 tab PO BID [facility] Last Admin: 05/13/18 10:46 Dose: 1 tab Vital Signs - 8 hr 05/13/18 05/13/18 11:36 16:29 Temperature 98.4 F 99.3 F Pulse Rate 59 60 Respiratory 20 22 Rate Blood Pressure 121/54 135/58 (mmHg) O2 Sat by Pulse 93 90 Oximetry Oxygen Devices in Use Now: Nasal Cannula Appearance: Comfortable, NAD Eyes: No Scleral Icterus Ears/Nose/Mouth/Throat: Clear Oropharnyx, Mucous Membranes Moist Neck: NL Appearance and Movements; NL JVP Respiratory: Symmetrical Chest Expansion and Respiratory Effort, - - Sporadic wheeze, otherwise clear. Cardiovascular: NL Sounds; No Murmurs; No JVD, RRR Abdominal: NL Sounds; No Tenderness; No Distention Lymphatic: No Cervical Adenopathy Extremities: No Clubbing, Cyanosis Skin: - - Bilateral LE wrapped and dressing CDI Neurological: Alert and Oriented x 3 Nutrition: Taking PO's Result Diagrams: 05/12/18 07:51 05/13/18 06:26 Additional Lab and Data: Laboratory Results - last 24 hr 05/12/18 05/13/18 18:56 06:26 Sodium 138 Potassium 4.7 Chloride 95 L Carbon Dioxide 38 H Anion Gap 5 BUN 23 19 Creatinine 0.96 0.76 Est GFR ( Amer) 96.0 125.8 Est GFR (Non-Af Amer) 79.4 103.9 BUN/Creatinine Ratio 24.0 H Glucose 261 H Calcium 8.9 Magnesium 2.3 Vancomycin Trough 6.5 Microbiology and Other Data: Microbiology 05/10/18 15:15 Skin and Soft Tissue MRSA/MSSA (PCR - Final Leg Right Mrsa Positive S.aureus Positive Gram Stain - Final Wound Culture - Preliminary Staphylococcus Aureus Providencia Stuartii Assess/Plan/Problems-Billing Assessment: Pt is a 62yom with PMHx COPD, JAIDEN, AF with sick sinus syndrome and PPM, diastolic HF, lymphedema, and h/o DVT/PE who presentd with SOB and was found to be in CHF and COPD exacerbation and is improving with diuresis, steroids, and inhalers. - Patient Problems (1) Acute and chronic respiratory failure with hypoxia Comment: - Caused by COPD exacerbation and likely CHF exacerbation - Low 90s on 3L O2, was in 70s on RA at presentation - Continue nebulizers, ventolin - Continue Torsemide at 20mg - Continue Prednisone 40 (day 4) - daily weights if possible - continue Bipap with oxygen at night - Will be getting Trilogy as recommended by pulmonology (2) Obstructive sleep apnea Comment: - Pt has Bipap with 3L O2. Louie be transitioning to Trilogy - Hypercapnea improving based on BMP (3) Wound of lower extremity Comment: - Appreciate wound nurse consult "recently managed at home with weekly wraps and compression stockings. on exam he has one superficial open area R lateral lower leg 2.5x1x0.1cm. moisturize legs, calcium alginate to open area. wrap legs with gauze and johanna weekly" - Wound is MRSA positive and Providencia Positive - Cont Bactrim (4) Atrial fibrillation Comment: -Tele shows NSR -Continue Xarelto, metoprolol (5) Chronic diastolic heart failure Comment: - Appears euvolemic - Continue Toresemide at home dose now. (6) DVT prophylaxis Comment: - Xarelto (7) Full code status Comment: Status and Disposition: Inpatient. Discharge when stable. Hopeful D/C in 1-2 days. Attending: Shadi Momin
[2018-05-13] MEDS: guaiFENesin ER TAB 600 MG PO PRN (22:29)
[2018-05-13] MEDS: diPHENhydraMINE PO* 25 MG PO PRN (22:29)
[2018-05-13] MEDS: Acetaminophen TAB* 325 MG PO PRN (22:30)
[2018-05-13] MEDS: Docusate CAP* 100 MG PO PRN (22:30)
[2018-05-13] MEDS: Senna TAB PO PRN (22:31)
[2018-05-13] MEDS: Artificial Tears* 15 ML BTL BOTH EYES PRN (23:34)
[2018-05-13] MEDS: Benzocaine/Menthol LOZ* 1 LOZENGE PO PRN (23:34)
[2018-05-14 07:56] LABS: BUN/Creatinine Ratio 25.9 (8-20); EGFR African American 116.8 (>60); EGFR Non-African American 96.6 (>60); Potassium 4.3 mmol/L (3.5-5.0)
[2018-05-14] MEDS: predniSONE TAB* 20 MG PO SCH (09:32)
[2018-05-14] MEDS: Sulfamethox/Trimethoprim DS 800/160* TAB PO SCH ×2 (09:32→20:41)
[2018-05-14] MEDS: Metoprolol Tartrate TAB* 25 MG PO SCH ×2 (09:32→20:42)
[2018-05-14] MEDS: Torsemide TAB* 20 MG PO SCH (09:32)
[2018-05-14] MEDS: Aspirin EC TAB* 81 MG TAB.EC PO SCH (09:33)
[2018-05-14] MEDS: Rivaroxaban TAB(*) 20 MG TAB PO SCH (09:33)
[2018-05-14] MEDS: Artificial Tears* 15 ML BTL BOTH EYES PRN (09:35)
--- NOTE | 2018-05-14 10:57 | PN ---
Subjective Date of Service: 05/14/18 Family History: Unchanged from Admission Social History: Unchanged from Admission Past Medical History: Unchanged from Admission Objective Active Medications: Acetaminophen (Tylenol Tab*) 650 mg PO Q4H PRN PRN Reason: FEVER/PAIN Last Admin: 05/13/18 22:30 Dose: 650 mg Al Hydrox/Mg Hydrox/Simethicone (Maalox Plus*) 30 ml PO Q6H PRN PRN Reason: INDIGESTION Last Admin: 05/09/18 22:08 Dose: 30 ml Albuterol (Ventolin 2.5 Mg/3 Ml Neb.Brandy*) 2.5 mg INH [id number] AWAKE PRN PRN Reason: sob/wheezing Albuterol (Ventolin Hfa Inhaler*) 2 puff INH Q4H PRN PRN Reason: SOB/WHEEZING Albuterol/Ipratropium (Duoneb (Albuterol 2.5 Mg/Ipratropium 0.5 Mg)) 1 neb INH [id number] AWAKE [facility] Aspirin (Aspirin Ec Tab*) 81 mg PO DAILY [facility] Last Admin: 05/14/18 09:33 Dose: 81 mg Diphenhydramine HCl (Benadryl Po*) 25 mg PO Q6H PRN PRN Reason: Allergy Symptoms Last Admin: 05/13/18 22:29 Dose: 25 mg Docusate Sodium (Colace Cap*) 100 mg PO BID PRN PRN Reason: CONSTIPATION Last Admin: 05/13/18 22:30 Dose: 100 mg Guaifenesin (Mucinex*) 1,200 mg PO BID PRN PRN Reason: COUGH Last Admin: 05/13/18 22:29 Dose: 1,200 mg Magnesium Citrate (Citrate Of Magnesia*) 300 ml PO DAILY PRN PRN Reason: CONSTIPATION Last Admin: 05/10/18 17:49 Dose: 300 ml Magnesium Hydroxide (Milk Of Magnesia Liq*) 30 ml PO Q4H PRN PRN Reason: CONSTIPATION Metoprolol Tartrate (Lopressor Tab*) 12.5 mg PO BID [facility] Last Admin: 05/14/18 09:32 Dose: 12.5 mg Polyvinyl Alcohol (Polyvinyl Alcohol 1.4% Opth*) 2 drop BOTH EYES Q2H PRN PRN Reason: DRY EYE Last Admin: 05/14/18 09:35 Dose: 2 drop Prednisone (Deltasone Tab*) 40 mg PO DAILY [facility] Last Admin: 05/14/18 09:32 Dose: 40 mg Rivaroxaban (Xarelto(*)) 20 mg PO DAILY [facility] Last Admin: 05/14/18 09:33 Dose: 20 mg Senna (Senokot Tab*) 1 tab PO DAILY PRN PRN Reason: CONSTIPATION Last Admin: 05/13/18 22:31 Dose: 1 tab Throat Lozenges (Chloraseptic Al*) 1 al PO Q6H PRN PRN Reason: SORE THROAT Last Admin: 05/13/18 23:34 Dose: 1 al Torsemide (Demadex*) 20 mg PO DAILY [facility] Last Admin: 05/14/18 09:32 Dose: 20 mg Trimethoprim/Sulfamethoxazole (Bactrim Ds 800/160 Tab*) 1 tab PO BID [facility] Last Admin: 05/14/18 09:32 Dose: 1 tab Vital Signs - 8 hr 05/14/18 05/14/18 04:00 07:18 Pulse Rate 63 Respiratory 20 Rate Oxygen Devices in Use Now: Nasal Cannula Result Diagrams: 05/12/18 07:51 05/14/18 07:21 Additional Lab and Data: Laboratory Results - last 24 hr 05/12/18 05/13/18 18:56 06:26 Sodium 138 Potassium 4.7 Chloride 95 L Carbon Dioxide 38 H Anion Gap 5 BUN 23 19 Creatinine 0.96 0.76 Est GFR ( Amer) 96.0 125.8 Est GFR (Non-Af Amer) 79.4 103.9 BUN/Creatinine Ratio 24.0 H Glucose 261 H Calcium 8.9 Magnesium 2.3 Vancomycin Trough 6.5 Microbiology and Other Data: Microbiology 05/10/18 15:15 Skin and Soft Tissue MRSA/MSSA (PCR - Final Leg Right Mrsa Positive S.aureus Positive Gram Stain - Final Wound Culture - Preliminary Staphylococcus Aureus Providencia Stuartii Assess/Plan/Problems-Billing Assessment: Pt is a 62yom with PMHx COPD, JAIDEN, AF with sick sinus syndrome and PPM, diastolic HF, lymphedema, and h/o DVT/PE who presentd with SOB and was found to be in CHF and COPD exacerbation and is improving with diuresis, steroids, and inhalers. - Patient Problems (1) Acute and chronic respiratory failure with hypoxia Comment: - Caused by COPD exacerbation and likely CHF exacerbation - 70s on RA at presentation; has been requiring 3L NC to maintain O2 in mid 90s ; today feels improved, therefore, asked nurses to start titrating - Continue nebulizers. I have changed them to scheduled as patient has wheezing and decrease aerflow. I have also ordered pulm tolieting for mucous. - Continue Torsemide at 20mg - Continue Prednisone 40 (day 5) - Daily weights if possible - Continue Bipap with oxygen at night - Will be getting Trilogy on Wednesday as recommended by pulmonology (2) Obstructive sleep apnea Comment: - Pt has Bipap with 3L O2. Louie be transitioning to Trilogy on Wednesday - Hypercapnea improving based on BMP (3) Wound of lower extremity Comment: - Appreciate wound nurse consult "recently managed at home with weekly wraps and compression stockings. on exam he has one superficial open area R lateral lower leg 2.5x1x0.1cm. moisturize legs, calcium alginate to open area. wrap legs with gauze and johanna weekly" - Wound is MRSA positive and Providencia Positive - Cont Bactrim (4) Atrial fibrillation Comment: -Tele shows NSR -Continue Xarelto, metoprolol (5) Chronic diastolic heart failure Comment: - Appears euvolemic - Continue Toresemide at home dose now. (6) Conjunctivitis Comment: - Bilateral eyes reddened with right worse than left. Yellow crusty drainage noted to lower right lid. Patient reports itching to right eye. - PolyMix eye drops ordered (7) Full code status Comment: (8) DVT prophylaxis Comment: - Xarelto Status and Disposition: Inpatient. Discharge when stable. Hopeful D/C in 1-2 days. Attending: Shadi Momin
[2018-05-14] MEDS: Albuterol/Ipratropium NEB.SOL* Albuterol 2.5 MG/Ipratropium 0.5 MG 3 ML INH SCH ×4 (11:35→23:20)
[2018-05-14] MEDS: Polymyx/Trimethoprim OPTH* 10 ML BTL BOTH EYES SCH ×4 (14:27→20:43)
[2018-05-14] MEDS: guaiFENesin ER TAB 600 MG PO PRN (15:10)
[2018-05-14] MEDS: Benzocaine/Menthol LOZ* 1 LOZENGE PO PRN ×2 (15:10→20:42)
[2018-05-14] MEDS: diPHENhydraMINE PO* 25 MG PO PRN (20:42)
[2018-05-14] MEDS: Acetaminophen TAB* 325 MG PO PRN (20:42)
[2018-05-15] MEDS: Polymyx/Trimethoprim OPTH* 10 ML BTL BOTH EYES SCH ×9 (00:20→23:42)
[2018-05-15] MEDS: Albuterol/Ipratropium NEB.SOL* Albuterol 2.5 MG/Ipratropium 0.5 MG 3 ML INH SCH ×2 (07:01→07:05)
[2018-05-15 07:14] LABS: ABS Basophils 0.1 10^3/ul (0-0.2); ABS Eosinophils 0 10^3/ul (0-0.6); ABS Lymphocytes 1.4 10^3/ul (1.0-4.8); ABS Monocytes 0.7 10^3/ul (0-0.8); ABS Neutrophils 5.7 10^3/ul (1.5-7.7); ABS Nucleated RBC 0 10^3/ul; Eosinophil % 0.5 %; Hematocrit 48 % (42-52); Lymphocyte % 17.5 %; Mean Corpuscular HGB Conc 32 g/dl (31-36); Mean Corpuscular Hemoglobin 28 pg (27-31); Mean Corpuscular Volume 87 fL (80-94); Mean Platelet Volume 9.6 fL (7.4-10.4); Nucleated Red Blood Cells % 0; Platelet Count 168 10^3/ul (150-450); Red Blood Count 5.48 10^6/ul (4.00-5.40); Red Cell Distribution Width 16 % (10.5-15)
[2018-05-15 07:42] LABS: BUN/Creatinine Ratio 24.2 (8-20); Calcium 9.4 mg/dL (8.6-10.3); EGFR African American 97.2 (>60); EGFR Non-African American 80.3 (>60); Potassium 4.3 mmol/L (3.5-5.0)
--- NOTE | 2018-05-15 08:22 | PN ---
Subjective Date of Service: 05/15/18 Interval History: Resting in bed on assessment. Reports he feels about the same as yesterday. Reports shortness of breath is improving. Continues have to a non productive cough. Denies cp, palpitations, nausea, vomiting, diarrhea, fever, chills. Family History: Unchanged from Admission Social History: Unchanged from Admission Past Medical History: Unchanged from Admission Objective Active Medications: Acetaminophen (Tylenol Tab*) 650 mg PO Q4H PRN PRN Reason: FEVER/PAIN Last Admin: 05/14/18 20:42 Dose: 650 mg Al Hydrox/Mg Hydrox/Simethicone (Maalox Plus*) 30 ml PO Q6H PRN PRN Reason: INDIGESTION Last Admin: 05/09/18 22:08 Dose: 30 ml Albuterol (Ventolin 2.5 Mg/3 Ml Neb.Brandy*) 2.5 mg INH [id number] AWAKE PRN PRN Reason: sob/wheezing Albuterol (Ventolin Hfa Inhaler*) 2 puff INH Q4H PRN PRN Reason: SOB/WHEEZING Aspirin (Aspirin Ec Tab*) 81 mg PO DAILY [facility] Last Admin: 05/14/18 09:33 Dose: 81 mg Diphenhydramine HCl (Benadryl Po*) 25 mg PO Q6H PRN PRN Reason: Allergy Symptoms Last Admin: 05/14/18 20:42 Dose: 25 mg Docusate Sodium (Colace Cap*) 100 mg PO BID PRN PRN Reason: CONSTIPATION Last Admin: 05/13/18 22:30 Dose: 100 mg Guaifenesin (Mucinex*) 1,200 mg PO BID PRN PRN Reason: COUGH Last Admin: 05/14/18 15:10 Dose: 1,200 mg Magnesium Citrate (Citrate Of Magnesia*) 300 ml PO DAILY PRN PRN Reason: CONSTIPATION Last Admin: 05/10/18 17:49 Dose: 300 ml Magnesium Hydroxide (Milk Of Magnesia Liq*) 30 ml PO Q4H PRN PRN Reason: CONSTIPATION Metoprolol Tartrate (Lopressor Tab*) 12.5 mg PO BID [facility] Last Admin: 05/14/18 20:42 Dose: 12.5 mg Polymyxin/Trimethoprim Sulfate (Polytrim Ophth*) 1 drop BOTH EYES Q3H [facility] Last Admin: 05/15/18 06:11 Dose: 1 drop Polyvinyl Alcohol (Polyvinyl Alcohol 1.4% Opth*) 2 drop BOTH EYES Q2H PRN PRN Reason: DRY EYE Last Admin: 05/14/18 09:35 Dose: 2 drop Prednisone (Deltasone Tab*) 40 mg PO DAILY [facility] Last Admin: 05/14/18 09:32 Dose: 40 mg Rivaroxaban (Xarelto(*)) 20 mg PO DAILY [facility] Last Admin: 05/14/18 09:33 Dose: 20 mg Senna (Senokot Tab*) 1 tab PO DAILY PRN PRN Reason: CONSTIPATION Last Admin: 05/13/18 22:31 Dose: 1 tab Throat Lozenges (Chloraseptic Al*) 1 al PO Q6H PRN PRN Reason: SORE THROAT Last Admin: 05/14/18 20:42 Dose: 1 al Torsemide (Demadex*) 20 mg PO DAILY [facility] Last Admin: 05/14/18 09:32 Dose: 20 mg Trimethoprim/Sulfamethoxazole (Bactrim Ds 800/160 Tab*) 1 tab PO BID [facility] Last Admin: 05/14/18 20:41 Dose: 1 tab Vital Signs - 8 hr 05/15/18 03:47 Temperature 97.7 F Pulse Rate 73 Respiratory 22 Rate Blood Pressure 156/76 (mmHg) O2 Sat by Pulse 93 Oximetry Oxygen Devices in Use Now: Nasal Cannula Appearance: Comfortable, NAD Eyes: No Scleral Icterus Ears/Nose/Mouth/Throat: Clear Oropharnyx, Mucous Membranes Moist Neck: NL Appearance and Movements; NL JVP Respiratory: Symmetrical Chest Expansion and Respiratory Effort, - - Scant wheezing, otherwise, clear Cardiovascular: NL Sounds; No Murmurs; No JVD, RRR, No Edema Abdominal: NL Sounds; No Tenderness; No Distention Lymphatic: No Cervical Adenopathy Extremities: No Clubbing, Cyanosis Skin: - - Bilateral legs scaley. Small open areas to right posterior calf x 2 Neurological: Alert and Oriented x 3, NL Muscle Strength and Tone Nutrition: Taking PO's Result Diagrams: 05/15/18 06:59 05/15/18 06:59 Additional Lab and Data: Laboratory Results - last 24 hr 05/15/18 05/15/18 06:59 06:59 WBC 8.0 RBC 5.48 H Hgb 15.0 Hct 48 MCV 87 MCH 28 MCHC 32 RDW 16 H Plt Count 168 MPV 9.6 Neut % (Auto) 71.9 Lymph % (Auto) 17.5 [place] % (Auto) 9.4 Eos % (Auto) 0.5 Baso % (Auto) 0.7 Absolute Neuts (auto) 5.7 Absolute Lymphs (auto) 1.4 Absolute Monos (auto) 0.7 Absolute Eos (auto) 0 Absolute Basos (auto) 0.1 Absolute Nucleated RBC 0 Nucleated RBC % 0 Sodium 139 Potassium 4.3 Chloride 96 L Carbon Dioxide 36 H Anion Gap 7 BUN 23 Creatinine 0.95 Est GFR ( Amer) 97.2 Est GFR (Non-Af Amer) 80.3 BUN/Creatinine Ratio 24.2 H Glucose 246 H Calcium 9.4 Microbiology and Other Data: Microbiology 05/10/18 15:15 Skin and Soft Tissue MRSA/MSSA (PCR - Final Leg Right Mrsa Positive S.aureus Positive Gram Stain - Final Wound Culture - Final MRSA Providencia Stuartii Normal [place] Assess/Plan/Problems-Billing Assessment: Pt is a 62yom with PMHx COPD, JAIDEN, AF with sick sinus syndrome and PPM, diastolic HF, lymphedema, and h/o DVT/PE who presentd with SOB and was found to be in CHF and COPD exacerbation and is improving with diuresis, steroids, and inhalers. - Patient Problems (1) Acute and chronic respiratory failure with hypoxia Comment: - Caused by COPD exacerbation and likely CHF exacerbation - 70s on RA at presentation; has been requiring 3L NC, but noted to be mid to high 90s on 3L therefore I have instructed staff to titrate oxygen to maintain satuation 92% - Continue nebulizers prn - Continue Torsemide at 20mg - Continue Prednisone 40 (day 6) - Daily weights if possible - Continue Bipap with oxygen at night - Will be getting Trilogy on Wednesday as recommended by pulmonology - Ordered incentive spirometer (2) Obstructive sleep apnea Comment: - Pt has Bipap with 3L O2. Louie be transitioning to Trilogy on Wednesday - Hypercapnea improving based on BMP (3) Wound of lower extremity Comment: - Appreciate wound nurse consult "recently managed at home with weekly wraps and compression stockings. on exam he has one superficial open area R lateral lower leg 2.5x1x0.1cm. moisturize legs, calcium alginate to open area. wrap legs with gauze and johanna weekly" - Wound is MRSA positive and Providencia Positive - Cont Bactrim to complete 7 days total of abx. Today is day 7/7 - Legs evaluated and scaley, but no signs/symptoms of cellulitis. Patient reports "they look great". Reports he is very well versed in infections in his legs and does not feel they are actively infected. Reports they look better than "they ever have". (4) Atrial fibrillation Comment: -Tele shows NSR -Continue Xarelto, metoprolol (5) Chronic diastolic heart failure Comment: - Appears euvolemic - Continue Toresemide at home dose now. (6) Conjunctivitis Comment: - Bilateral eyes reddened with right worse than left. Yellow crusty drainage noted to lower right lid. Patient reports itching to right eye. - PolyMix eye drops ordered (7) Full code status Comment: (8) DVT prophylaxis Comment: - Xarelto Status and Disposition: Inpatient. Discharge when stable. Hopeful D/C in 1-2 days. Attending: Shadi Momin
[2018-05-15] MEDS: Torsemide TAB* 20 MG PO SCH (09:23)
[2018-05-15] MEDS: Metoprolol Tartrate TAB* 25 MG PO SCH ×2 (09:23→20:26)
[2018-05-15] MEDS: Rivaroxaban TAB(*) 20 MG TAB PO SCH (09:23)
[2018-05-15] MEDS: Sulfamethox/Trimethoprim DS 800/160* TAB PO SCH ×2 (09:23→20:26)
[2018-05-15] MEDS: Aspirin EC TAB* 81 MG TAB.EC PO SCH (09:23)
[2018-05-15] MEDS: predniSONE TAB* 20 MG PO SCH (09:23)
[2018-05-15] MEDS ORDERED: Spiriva Inhaler DEVICE* 1 EACH DEVICE SCH (15:00)
[2018-05-15] MEDS: Acetaminophen TAB* 325 MG PO PRN ×2 (16:08→20:26)
[2018-05-15] MEDS: diPHENhydraMINE PO* 25 MG PO PRN (20:26)
[2018-05-15] MEDS: Benzocaine/Menthol LOZ* 1 LOZENGE PO PRN (23:42)
[2018-05-16] MEDS: Polymyx/Trimethoprim OPTH* 10 ML BTL BOTH EYES SCH ×8 (02:29→22:00)
[2018-05-16] MEDS: Tiotropium CAP.INH* CAP.INH/18 MCG (USE ORDER SET !) INH SCH (08:35)
[2018-05-16] MEDS: Rivaroxaban TAB(*) 20 MG TAB PO SCH (10:42)
[2018-05-16] MEDS: Metoprolol Tartrate TAB* 25 MG PO SCH ×2 (10:42→20:00)
[2018-05-16] MEDS: Torsemide TAB* 20 MG PO SCH (10:42)
[2018-05-16] MEDS: Aspirin EC TAB* 81 MG TAB.EC PO SCH (10:42)
[2018-05-16] MEDS ORDERED: Perflutren Lipid Microsphere* 3 ML VIAL ONE (14:21)
--- NOTE | 2018-05-16 15:39 | ECHO ---
Patient: JOCELYN KHAN [facility] Rec#: [id number] : 1955 Date: 05/16/2018 Age: 62y Height: 178 cm / 70.1 in Weight: 206 kg / 454.0 lbs Sex: M BSA: 2.96 Room#: 421 Admit Date#: 05/10/2018 Type: Inpatient Referring: Pat Her Reading: Elpidio Poe MD Manufacturing Baker: Viola Bass RUPERTO CC: Javier Gilliland MD Transthoracic Echocardiogram Indication: SOB BP: 161/77 HR: 66 Rhythm: NSR with PACs Findings History: COPD,chronic respiratory failure,prior DVT and PE,morbid obesity,JAIDEN,a-fib s/p pacer insert,lymphedema. Technical Comments: The study is technically difficult. Definity used to enhance images. Completed at 1505. The study is technically limited due to patient body habitus. The study is technically limited due to the patient's history of COPD. The study was technically limited due to the patient's inability to lay in the left lateral decubitus position. Left Ventricle: The left ventricular chamber size is normal. The estimated ejection fraction is 55-60%. very poor visablity Grossly normal LV function Abnormal left ventricular diastolic function is observed. Left Atrium: The left atrium is not well visualized. Right Ventricle: The right ventricle is not well visualized. Right Atrium: The right atrium is not well visualized. Aortic Valve: The aortic valve structure is not well visualized. Mitral Valve: The mitral valve structure is not well visualized. Tricuspid Valve: The tricuspid valve structure is not well visualized. Pulmonic Valve: The pulmonic valve structure is not well visualized. Pericardium: A pericardial fat pad is visualized. Aorta: The ascending aorta is not well visualized. There is mild dilatation of the aortic arch. The aortic root is not well visualized. Pulmonary Artery: The main pulmonary artery is not well visualized. Venous: The inferior vena cava is dilated. There is a greater than 50% respiratory change in the inferior vena cava dimension. Contrast: Definity was used to optimize study. A total of 4 ml used. Intravenous contrast was used to enhance endocardial border definition. Conclusions The study is technically difficult. Definity used to enhance images. Completed at 1505. The study is technically limited due to patient body habitus. The estimated ejection fraction is 55-60%. very poor visablity Grossly normal LV function The aortic valve structure is not well visualized. The mitral valve structure is not well visualized. The tricuspid valve structure is not well visualized. The pulmonic valve structure is not well visualized. Measurements Name Value Normal Range Aortic arch 3.5 cm (1.8 - 3.4) Descending Ao 0.7 cm - Name Value Normal Range MV E-wave Vmax 0.8 m/sec - MV deceleration time 211 msec - MV A-wave Vmax 0.4 m/sec - MV E:A ratio 1.8 ratio - Name Value Normal Range AV Vmax 1.2 m/sec - AV VTI 31.4 cm - AV peak gradient 6 mmHg - AV mean gradient 3 mmHg - LVOT Vmax 0.8 m/sec - LVOT VTI 15.7 cm - LVOT peak gradient 3 mmHg - LVOT mean gradient 1 mmHg - Name Value Normal Range IVC diameter 3.3 cm -
--- NOTE | 2018-05-16 17:10 | PN ---
Subjective Date of Service: 05/16/18 Interval History: Patient reports he feels slight better today. Continues to require supplemental oxygen to maintain oxygen saturation above 90% . Continues to feel occasional short of breath, but less frequently. Occasional cough. Denies chest pain, sob, palpitations, nausea, vomiting, diarrhea Family History: Unchanged from Admission Social History: Unchanged from Admission Past Medical History: Unchanged from Admission Objective Active Medications: Acetaminophen (Tylenol Tab*) 650 mg PO Q4H PRN PRN Reason: FEVER/PAIN Last Admin: 05/15/18 20:26 Dose: 650 mg Al Hydrox/Mg Hydrox/Simethicone (Maalox Plus*) 30 ml PO Q6H PRN PRN Reason: INDIGESTION Last Admin: 05/09/18 22:08 Dose: 30 ml Albuterol (Ventolin 2.5 Mg/3 Ml Neb.Brandy*) 2.5 mg INH [id number] AWAKE PRN PRN Reason: sob/wheezing Albuterol (Ventolin Hfa Inhaler*) 2 puff INH Q4H PRN PRN Reason: SOB/WHEEZING Aspirin (Aspirin Ec Tab*) 81 mg PO DAILY [facility] Last Admin: 05/16/18 10:42 Dose: 81 mg Device (Tiotropium Inhaler Device*) 1 each .SEE ORDER .USE w/ SPIRIVA CAPS [facility] Diphenhydramine HCl (Benadryl Po*) 25 mg PO Q6H PRN PRN Reason: Allergy Symptoms Last Admin: 05/15/18 20:26 Dose: 25 mg Docusate Sodium (Colace Cap*) 100 mg PO BID PRN PRN Reason: CONSTIPATION Last Admin: 05/13/18 22:30 Dose: 100 mg Guaifenesin (Mucinex*) 1,200 mg PO BID PRN PRN Reason: COUGH Last Admin: 05/14/18 15:10 Dose: 1,200 mg Magnesium Citrate (Citrate Of Magnesia*) 300 ml PO DAILY PRN PRN Reason: CONSTIPATION Last Admin: 05/10/18 17:49 Dose: 300 ml Magnesium Hydroxide (Milk Of Magnesia Liq*) 30 ml PO Q4H PRN PRN Reason: CONSTIPATION Metoprolol Tartrate (Lopressor Tab*) 12.5 mg PO BID [facility] Last Admin: 05/16/18 10:42 Dose: 12.5 mg Polymyxin/Trimethoprim Sulfate (Polytrim Ophth*) 1 drop BOTH EYES Q3H [facility] Last Admin: 05/16/18 13:20 Dose: 1 drop Polyvinyl Alcohol (Polyvinyl Alcohol 1.4% Opth*) 2 drop BOTH EYES Q2H PRN PRN Reason: DRY EYE Last Admin: 05/14/18 09:35 Dose: 2 drop Rivaroxaban (Xarelto(*)) 20 mg PO DAILY [facility] Last Admin: 05/16/18 10:42 Dose: 20 mg Senna (Senokot Tab*) 1 tab PO DAILY PRN PRN Reason: CONSTIPATION Last Admin: 05/13/18 22:31 Dose: 1 tab Throat Lozenges (Chloraseptic Al*) 1 al PO Q6H PRN PRN Reason: SORE THROAT Last Admin: 05/15/18 23:42 Dose: 1 al Tiotropium [place] (Spiriva Cap.Inh*) 1 cap INH DAILY [facility] Last Admin: 05/16/18 08:35 Dose: 1 cap Torsemide (Demadex*) 40 mg PO DAILY [facility] Last Admin: 05/16/18 10:42 Dose: 40 mg Vital Signs - 8 hr 05/16/18 05/16/18 11:42 16:52 Temperature 98.2 F 98.7 F Pulse Rate 66 63 Respiratory 22 16 Rate Blood Pressure 96/43 131/81 (mmHg) O2 Sat by Pulse 90 93 Oximetry Oxygen Devices in Use Now: Nasal Cannula Appearance: Comfortable, NAD Eyes: No Scleral Icterus Ears/Nose/Mouth/Throat: Clear Oropharnyx, Mucous Membranes Moist Neck: NL Appearance and Movements; NL JVP Respiratory: Symmetrical Chest Expansion and Respiratory Effort, Clear to Auscultation Cardiovascular: NL Sounds; No Murmurs; No JVD, RRR, No Edema Abdominal: NL Sounds; No Tenderness; No Distention Lymphatic: No Cervical Adenopathy Extremities: - - Bilateral LE wrapped in johanna bandages Neurological: Alert and Oriented x 3, NL Muscle Strength and Tone Nutrition: Taking PO's Result Diagrams: 05/15/18 06:59 05/15/18 06:59 Additional Lab and Data: . Microbiology and Other Data: Microbiology 05/10/18 15:15 Leg Right Skin and Soft Tissue MRSA/MSSA (PCR - Final Mrsa Positive S.aureus Positive 05/10/18 15:15 Leg Right Gram Stain - Final 05/10/18 15:15 Leg Right Wound Culture - Final MRSA Providencia Stuartii Normal [place] Assess/Plan/Problems-Billing Assessment: Pt is a 62yom with PMHx COPD, JAIDEN, AF with sick sinus syndrome and PPM, diastolic HF, lymphedema, and h/o DVT/PE who presentd with SOB and was found to be in CHF and COPD exacerbation and is improving with diuresis, steroids, and inhalers. - Patient Problems (1) Acute and chronic respiratory failure with hypoxia Comment: - Caused by COPD exacerbation and likely CHF exacerbation - 70s on RA at presentation; Currenlty weaned to 2L; continue titrate oxygen to maintain satuation 92% - Continue nebulizers prn - Torsemide previously 20mg increased to 40 mg today for 5 days. Patient reports he will often take anywhere from 20 mg to 60 mg daily at home depending on edema and symptoms - Repeat chest xray yesterday consistent with pulmonary edema. - Prednisone discontinued as completed 6 days - Daily weights if possible - Continue Bipap with oxygen at night - Will be getting Trilogy as recommended by pulmonology - Ordered incentive spirometer (2) Obstructive sleep apnea Comment: - Pt has Bipap with 3L O2. Louie be transitioning to Trilogy - Hypercapnea improving based on BMP (3) Wound of lower extremity Comment: - Appreciate wound nurse consult "recently managed at home with weekly wraps and compression stockings. on exam he has one superficial open area R lateral lower leg 2.5x1x0.1cm. moisturize legs, calcium alginate to open area. wrap legs with gauze and johanna weekly" - Wound is MRSA positive and Providencia Positive - Completed course of Bactrim - Legs evaluated and scaley, but no signs/symptoms of cellulitis. Patient reports "they look great". Reports he is very well versed in infections in his legs and does not feel they are actively infected. Reports they look better than "they ever have". (4) Atrial fibrillation Comment: -Tele shows NSR -Continue Xarelto, metoprolol (5) Chronic diastolic heart failure Comment: - Due to requiring supplemental O2 and results of chest xray, I have increased patients Toresmide. See above (6) Conjunctivitis Comment: - Improving - Cont PolyMix eye drops for 7 days. Today 04/21 (7) Full code status Comment: (8) DVT prophylaxis Comment: - Xarelto Status and Disposition: Inpatient. Discharge when stable. Hopeful D/C in 1-2 days. Attending: Shadi Momin
[2018-05-16] MEDS: Acetaminophen TAB* 325 MG PO PRN (19:59)
[2018-05-16] MEDS: Docusate CAP* 100 MG PO PRN (20:00)
[2018-05-16] MEDS: Benzocaine/Menthol LOZ* 1 LOZENGE PO PRN (22:54)
[2018-05-16] MEDS: diPHENhydraMINE PO* 25 MG PO PRN (22:54)
[2018-05-17] MEDS: Polymyx/Trimethoprim OPTH* 10 ML BTL BOTH EYES SCH ×7 (03:59→22:18)
[2018-05-17] MEDS: Torsemide TAB* 20 MG PO SCH (09:31)
[2018-05-17] MEDS: Metoprolol Tartrate TAB* 25 MG PO SCH ×2 (09:32→22:16)
[2018-05-17] MEDS: Aspirin EC TAB* 81 MG TAB.EC PO SCH (09:32)
[2018-05-17] MEDS: Rivaroxaban TAB(*) 20 MG TAB PO SCH (09:33)
[2018-05-17] MEDS: Tiotropium CAP.INH* CAP.INH/18 MCG (USE ORDER SET !) INH SCH (10:00)
--- NOTE | 2018-05-17 17:00 | PN ---
Progress Note - Progress Note Date of Service: 05/17/18 - Pulm f/u note Note: Pt seen and examined at bedside. Pt reports feeling better. Pt reports tolerating BiPAP Active Medications Generic Name Dose Route Start Last Admin Trade Name Freq PRN Reason Stop Dose Admin Acetaminophen 650 mg 05/09/18 13:44 05/16/18 19:59 Tylenol Tab* PO 650 mg Q4H PRN Administration FEVER/PAIN Al Hydrox/Mg Hydrox/Simethicone 30 ml 05/09/18 13:44 05/09/18 22:08 Maalox Plus* PO 30 ml Q6H PRN Administration INDIGESTION Albuterol 2.5 mg 05/09/18 13:44 Ventolin 2.5 Mg/3 Ml Neb.Brandy* INH [id number] AWAKE PRN sob/wheezing Albuterol 2 puff 05/09/18 13:48 Ventolin Hfa Inhaler* INH Q4H PRN SOB/WHEEZING Aspirin 81 mg 05/10/18 09:00 05/17/18 09:32 Aspirin Ec Tab* PO 81 mg DAILY [facility] Administration Device 1 each 05/15/18 15:00 Tiotropium Inhaler Device* .SEE ORDER .USE w/ SPIRIVA CAPS [facility] Diphenhydramine HCl 25 mg 05/09/18 13:48 05/16/18 22:54 Benadryl Po* PO 25 mg Q6H PRN Administration Allergy Symptoms Docusate Sodium 100 mg 05/09/18 13:48 05/16/18 20:00 Colace Cap* PO 100 mg BID PRN Administration CONSTIPATION Guaifenesin 1,200 mg 05/12/18 20:25 05/14/18 15:10 Mucinex* PO 1,200 mg BID PRN Administration COUGH Magnesium Citrate 300 ml 05/10/18 16:55 05/10/18 17:49 Citrate Of Magnesia* PO 300 ml DAILY PRN Administration CONSTIPATION Magnesium Hydroxide 30 ml 05/09/18 13:44 Milk Of Magnesia Liq* PO Q4H PRN CONSTIPATION Metoprolol Tartrate 12.5 mg 05/09/18 21:00 05/17/18 09:32 Lopressor Tab* PO 12.5 mg BID [facility] Administration Polymyxin/Trimethoprim Sulfate 1 drop 05/14/18 11:30 05/17/18 16:23 Polytrim Ophth* BOTH EYES 1 drop Q3H [facility] Administration Polyvinyl Alcohol 2 drop 05/13/18 22:56 05/14/18 09:35 Polyvinyl Alcohol 1.4% Opth* BOTH EYES 2 drop Q2H PRN Administration DRY EYE Rivaroxaban 20 mg 05/10/18 09:00 05/17/18 09:33 Xarelto(*) PO 20 mg DAILY [facility] Administration Senna 1 tab 05/13/18 13:16 05/13/18 22:31 Senokot Tab* PO 1 tab DAILY PRN Administration CONSTIPATION Throat Lozenges 1 jesus 05/13/18 22:56 05/16/18 22:54 Chloraseptic [place]* PO 1 jesus Q6H PRN Administration SORE THROAT Tiotropium [place] 1 cap 05/16/18 09:00 05/17/18 10:00 Spiriva Cap.Inh* INH 1 cap DAILY [facility] Administration Torsemide 40 mg 05/16/18 09:00 05/17/18 09:31 Demadex* PO 40 mg DAILY [facility] Administration Vital Signs Temp Pulse Resp BP Pulse Ox 97.6 F 59 18 143/65 93 05/17/18 11:38 05/17/18 11:38 05/17/18 11:38 05/17/18 11:38 05/17/18 11:38 O/E: Pt in NAD HEENT: PERRLA Lungs: Clear to auscultation CVS: S1, S2, regular Abd: Soft, BS+ Ext: edema Neuro: No focal deficits Skin: chronic skin changes Labs: No new labs I/R: 62 y o morbidly obese m with h/o JAIDEN/OHS, COPD, chronic LE swelling a/w SOB Pt with acute CHF and COPD exacerbation that are improving Lungs sound better today Has been compliant with BiPAP usage Has been requiring O2, currently at 2L, could be titrated Would benefit from Trilogy given COPD and OHS, having issues with insurance coverage Chronic LE edema and cellulitis are improving Pt reports exposure to mold at home and having recurrent SOB when he is at home and starts to feel better when he is away from home situation Is requesting letter to support remediation measures for mold
--- NOTE | 2018-05-17 20:16 | PN ---
Subjective Date of Service: 05/17/18 Interval History: Reports shortness of breath has improved, but cough continues. Reports he feels depression as social work/insurance case manager mentioned fpc placement and he does not want to go back to [facility]. Denies cp, palpitations, pain, nausea, vomiting, fever, chills. Family History: Unchanged from Admission Social History: Unchanged from Admission Past Medical History: Unchanged from Admission Objective Active Medications: Acetaminophen (Tylenol Tab*) 650 mg PO Q4H PRN PRN Reason: FEVER/PAIN Last Admin: 05/16/18 19:59 Dose: 650 mg Al Hydrox/Mg Hydrox/Simethicone (Maalox Plus*) 30 ml PO Q6H PRN PRN Reason: INDIGESTION Last Admin: 05/09/18 22:08 Dose: 30 ml Albuterol (Ventolin 2.5 Mg/3 Ml Neb.Brandy*) 2.5 mg INH [id number] AWAKE PRN PRN Reason: sob/wheezing Albuterol (Ventolin Hfa Inhaler*) 2 puff INH Q4H PRN PRN Reason: SOB/WHEEZING Aspirin (Aspirin Ec Tab*) 81 mg PO DAILY [facility] Last Admin: 05/17/18 09:32 Dose: 81 mg Device (Tiotropium Inhaler Device*) 1 each .SEE ORDER .USE w/ SPIRIVA CAPS [facility] Diphenhydramine HCl (Benadryl Po*) 25 mg PO Q6H PRN PRN Reason: Allergy Symptoms Last Admin: 05/16/18 22:54 Dose: 25 mg Docusate Sodium (Colace Cap*) 100 mg PO BID PRN PRN Reason: CONSTIPATION Last Admin: 05/16/18 20:00 Dose: 100 mg Guaifenesin (Mucinex*) 1,200 mg PO BID PRN PRN Reason: COUGH Last Admin: 05/14/18 15:10 Dose: 1,200 mg Magnesium Citrate (Citrate Of Magnesia*) 300 ml PO DAILY PRN PRN Reason: CONSTIPATION Last Admin: 05/10/18 17:49 Dose: 300 ml Magnesium Hydroxide (Milk Of Magnesia Liq*) 30 ml PO Q4H PRN PRN Reason: CONSTIPATION Metoprolol Tartrate (Lopressor Tab*) 12.5 mg PO BID [facility] Last Admin: 05/17/18 09:32 Dose: 12.5 mg Polymyxin/Trimethoprim Sulfate (Polytrim Ophth*) 1 drop BOTH EYES Q3H [facility] Last Admin: 05/17/18 18:10 Dose: 1 drop Polyvinyl Alcohol (Polyvinyl Alcohol 1.4% Opth*) 2 drop BOTH EYES Q2H PRN PRN Reason: DRY EYE Last Admin: 05/14/18 09:35 Dose: 2 drop Rivaroxaban (Xarelto(*)) 20 mg PO DAILY [facility] Last Admin: 05/17/18 09:33 Dose: 20 mg Senna (Senokot Tab*) 1 tab PO DAILY PRN PRN Reason: CONSTIPATION Last Admin: 05/13/18 22:31 Dose: 1 tab Throat Lozenges (Chloraseptic Al*) 1 al PO Q6H PRN PRN Reason: SORE THROAT Last Admin: 05/16/18 22:54 Dose: 1 al Tiotropium [place] (Spiriva Cap.Inh*) 1 cap INH DAILY [facility] Last Admin: 05/17/18 10:00 Dose: 1 cap Torsemide (Demadex*) 40 mg PO DAILY [facility] Last Admin: 05/17/18 09:31 Dose: 40 mg Vital Signs - 8 hr 05/17/18 15:14 Temperature 98.0 F Pulse Rate 70 Respiratory 18 Rate Blood Pressure 150/41 (mmHg) O2 Sat by Pulse 92 Oximetry Oxygen Devices in Use Now: Nasal Cannula Appearance: NAD Eyes: No Scleral Icterus Ears/Nose/Mouth/Throat: Clear Oropharnyx, Mucous Membranes Moist Neck: NL Appearance and Movements; NL JVP Respiratory: Symmetrical Chest Expansion and Respiratory Effort, Clear to Auscultation Cardiovascular: NL Sounds; No Murmurs; No JVD, RRR, No Edema Abdominal: NL Sounds; No Tenderness; No Distention Lymphatic: No Cervical Adenopathy Extremities: No Clubbing, Cyanosis Skin: - - Bilateral LE wrapped in johanna wraps Nutrition: Taking PO's Result Diagrams: 05/15/18 06:59 05/15/18 06:59 Additional Lab and Data: . Microbiology and Other Data: Microbiology 05/10/18 15:15 Leg Right Skin and Soft Tissue MRSA/MSSA (PCR - Final Mrsa Positive S.aureus Positive 05/10/18 15:15 Leg Right Gram Stain - Final 05/10/18 15:15 Leg Right Wound Culture - Final MRSA Providencia Stuartii Normal [place] Assess/Plan/Problems-Billing Assessment: Pt is a 62yom with PMHx COPD, JAIDEN, AF with sick sinus syndrome and PPM, diastolic HF, lymphedema, and h/o DVT/PE who presentd with SOB and was found to be in CHF and COPD exacerbation and is improving with diuresis, steroids, and inhalers. - Patient Problems (1) Acute and chronic respiratory failure with hypoxia Comment: - Caused by COPD exacerbation and likely CHF exacerbation - 70s on RA at presentation; Currenlty weaned to 2L; continue titrate oxygen to maintain satuation 92% - Continue nebulizers prn - Torsemide previously 20mg increased to 40 mg today for 5 days (day 2/5). Patient reports he will often take anywhere from 20 mg to 60 mg daily at home depending on edema and symptoms - Repeat chest xray yesterday consistent with pulmonary edema. - Prednisone discontinued as completed 6 days - Daily weights if possible - Continue Bipap with oxygen at night - Will be getting Trilogy as recommended by pulmonology - Ordered incentive spirometer (2) Obstructive sleep apnea Comment: - Pt has Bipap with 3L O2. Luoie be transitioning to Trilogy - Hypercapnea improving based on BMP (3) Wound of lower extremity Comment: - Appreciate wound nurse consult "recently managed at home with weekly wraps and compression stockings. on exam he has one superficial open area R lateral lower leg 2.5x1x0.1cm. moisturize legs, calcium alginate to open area. wrap legs with gauze and johanna weekly" - Wound is MRSA positive and Providencia Positive - Completed course of Bactrim - Legs evaluated and scaley, but no signs/symptoms of cellulitis. Patient reports "they look great". Reports he is very well versed in infections in his legs and does not feel they are actively infected. Reports they look better than "they ever have". (4) Atrial fibrillation Comment: -Continue Xarelto, metoprolol (5) Chronic diastolic heart failure Comment: - Due to requiring supplemental O2 and results of chest xray, I have increased patients Toresmide. See above (6) Conjunctivitis Comment: - Improving - Cont PolyMix eye drops for 7 days. Today 05/19 (7) Full code status Comment: (8) DVT prophylaxis Comment: - Xarelto Status and Disposition: Inpatient. Discharge when stable. Attending: Avelino Guerrero
[2018-05-17] MEDS: Benzocaine/Menthol LOZ* 1 LOZENGE PO PRN (22:16)
[2018-05-17] MEDS: Acetaminophen TAB* 325 MG PO PRN (22:16)
[2018-05-17] MEDS: guaiFENesin ER TAB 600 MG PO PRN (22:16)
[2018-05-17] MEDS: Docusate CAP* 100 MG PO PRN (22:17)
[2018-05-17] MEDS: Senna TAB PO PRN (22:17)
[2018-05-17] MEDS: diPHENhydraMINE PO* 25 MG PO PRN (22:17)
[2018-05-18] MEDS: Polymyx/Trimethoprim OPTH* 10 ML BTL BOTH EYES SCH ×9 (00:57→23:48)
[2018-05-18 06:05] LABS: ABS Basophils 0 10^3/ul (0-0.2); ABS Eosinophils 0.2 10^3/ul (0-0.6); ABS Lymphocytes 1.4 10^3/ul (1.0-4.8); ABS Monocytes 0.6 10^3/ul (0-0.8); ABS Neutrophils 5.2 10^3/ul (1.5-7.7); ABS Nucleated RBC 0 10^3/ul; Eosinophil % 3.2 %; Hematocrit 50 % (42-52); Lymphocyte % 18.6 %; Mean Corpuscular HGB Conc 32 g/dl (31-36); Mean Corpuscular Hemoglobin 28 pg (27-31); Mean Corpuscular Volume 86 fL (80-94); Mean Platelet Volume 9.2 fL (7.4-10.4); Nucleated Red Blood Cells % 0.1; Platelet Count 153 10^3/ul (150-450); Red Blood Count 5.81 10^6/ul (4.00-5.40); Red Cell Distribution Width 16 % (10.5-15); White Blood Count 7.6 10^3/ul (3.5-10.8)
[2018-05-18 06:25] LABS: BUN/Creatinine Ratio 38.4 (8-20); Calcium 9.5 mg/dL (8.6-10.3); EGFR Non-African American 90.1 (>60); Potassium 3.8 mmol/L (3.5-5.0)
[2018-05-18] MEDS: Tiotropium CAP.INH* CAP.INH/18 MCG (USE ORDER SET !) INH SCH (07:44)
[2018-05-18] MEDS: Aspirin EC TAB* 81 MG TAB.EC PO SCH (10:49)
[2018-05-18] MEDS: Torsemide TAB* 20 MG PO SCH (10:50)
[2018-05-18] MEDS: Rivaroxaban TAB(*) 20 MG TAB PO SCH (10:51)
[2018-05-18] MEDS: Metoprolol Tartrate TAB* 25 MG PO SCH ×2 (10:52→21:03)
[2018-05-18] MEDS: Benzocaine/Menthol LOZ* 1 LOZENGE PO PRN ×2 (14:14→21:02)
--- NOTE | 2018-05-18 16:45 | PN ---
Subjective Date of Service: 05/18/18 Interval History: Patient seen and examined. No acute overnight events. Patient states he gets SOB at night and is requiring O2 during the day which is new for him. Does report decreased endurance. Denies chest pain, no fevers or chills, no further complaints. Family History: Unchanged from Admission Social History: Unchanged from Admission Past Medical History: Unchanged from Admission Objective Active Medications: Acetaminophen (Tylenol Tab*) 650 mg PO Q4H PRN PRN Reason: FEVER/PAIN Last Admin: 05/17/18 22:16 Dose: 650 mg Al Hydrox/Mg Hydrox/Simethicone (Maalox Plus*) 30 ml PO Q6H PRN PRN Reason: INDIGESTION Last Admin: 05/09/18 22:08 Dose: 30 ml Albuterol (Ventolin 2.5 Mg/3 Ml Neb.Brandy*) 2.5 mg INH [id number] AWAKE PRN PRN Reason: sob/wheezing Albuterol (Ventolin Hfa Inhaler*) 2 puff INH Q4H PRN PRN Reason: SOB/WHEEZING Aspirin (Aspirin Ec Tab*) 81 mg PO DAILY [facility] Last Admin: 05/18/18 10:49 Dose: 81 mg Device (Tiotropium Inhaler Device*) 1 each .SEE ORDER .USE w/ SPIRIVA CAPS [facility] Diphenhydramine HCl (Benadryl Po*) 25 mg PO Q6H PRN PRN Reason: Allergy Symptoms Last Admin: 05/17/18 22:17 Dose: 25 mg Docusate Sodium (Colace Cap*) 100 mg PO BID PRN PRN Reason: CONSTIPATION Last Admin: 05/17/18 22:17 Dose: 100 mg Guaifenesin (Mucinex*) 1,200 mg PO BID PRN PRN Reason: COUGH Last Admin: 05/17/18 22:16 Dose: 1,200 mg Magnesium Citrate (Citrate Of Magnesia*) 300 ml PO DAILY PRN PRN Reason: CONSTIPATION Last Admin: 05/10/18 17:49 Dose: 300 ml Magnesium Hydroxide (Milk Of Magnesia Liq*) 30 ml PO Q4H PRN PRN Reason: CONSTIPATION Metoprolol Tartrate (Lopressor Tab*) 12.5 mg PO BID [facility] Last Admin: 05/18/18 10:52 Dose: 12.5 mg Polymyxin/Trimethoprim Sulfate (Polytrim Ophth*) 1 drop BOTH EYES Q3H [facility] Last Admin: 05/18/18 14:14 Dose: 1 drop Polyvinyl Alcohol (Polyvinyl Alcohol 1.4% Opth*) 2 drop BOTH EYES Q2H PRN PRN Reason: DRY EYE Last Admin: 05/14/18 09:35 Dose: 2 drop Rivaroxaban (Xarelto(*)) 20 mg PO DAILY [facility] Last Admin: 05/18/18 10:51 Dose: 20 mg Senna (Senokot Tab*) 1 tab PO DAILY PRN PRN Reason: CONSTIPATION Last Admin: 05/17/18 22:17 Dose: 1 tab Throat Lozenges (Chloraseptic Al*) 1 al PO Q6H PRN PRN Reason: SORE THROAT Last Admin: 05/18/18 14:14 Dose: 1 al Tiotropium [place] (Spiriva Cap.Inh*) 1 cap INH DAILY [facility] Last Admin: 05/18/18 07:44 Dose: 1 cap Torsemide (Demadex*) 40 mg PO DAILY [facility] Last Admin: 05/18/18 10:50 Dose: 40 mg Vital Signs - 8 hr 05/18/18 05/18/18 10:42 15:11 Temperature 97.3 F Pulse Rate 69 Respiratory 18 18 Rate Blood Pressure 148/66 (mmHg) O2 Sat by Pulse 95 Oximetry Oxygen Devices in Use Now: Nasal Cannula, BiPAP Appearance: alert, NAD Eyes: No Scleral Icterus, PERRLA Ears/Nose/Mouth/Throat: NL Teeth, Lips, Gums, Mucous Membranes Moist Neck: NL Appearance and Movements; NL JVP, Trachea Midline Respiratory: Symmetrical Chest Expansion and Respiratory Effort, - - diminished throughout, poor air entry Cardiovascular: NL Sounds; No Murmurs; No JVD, RRR, No Edema Abdominal: NL Sounds; No Tenderness; No Distention Extremities: No Edema, No Clubbing, Cyanosis, - - bipedal midfoot amputations Skin: No Rash or Ulcers Neurological: Alert and Oriented x 3, NL Sensation Nutrition: Taking PO's Result Diagrams: 05/18/18 05:53 05/18/18 05:53 Additional Lab and Data: . Microbiology and Other Data: Microbiology 05/10/18 15:15 Leg Right Skin and Soft Tissue MRSA/MSSA (PCR - Final Mrsa Positive S.aureus Positive 05/10/18 15:15 Leg Right Gram Stain - Final 05/10/18 15:15 Leg Right Wound Culture - Final MRSA Providencia Stuartii Normal [place] Assess/Plan/Problems-Billing Assessment: Pt is a 62yom with PMHx COPD, JAIDEN, AF with sick sinus syndrome and PPM, diastolic HF, lymphedema, and h/o DVT/PE who presentd with SOB and was found to be in CHF and COPD exacerbation and is improving with diuresis, steroids, and inhalers. - Patient Problems (1) Acute and chronic respiratory failure with hypoxia Code(s): J96.21 - ACUTE AND CHRONIC RESPIRATORY FAILURE WITH HYPOXIA SNOMED Code(s): 64168765 Comment: - 2/2 by COPD exacerbation and likely CHF exacerbation and OHS - 70s on RA at presentation; Currently weaned to 2L; continue titrate oxygen to maintain satuation 92% - Continue nebulizers prn - Torsemide previously 20mg increased to 40 mg today for 5 days (day 2/5). Patient reports he will often take anywhere from 20 mg to 60 mg daily at home depending on edema and symptoms - Repeat chest xray consistent with pulmonary edema. - Prednisone discontinued as completed 6 days - Daily weights if possible - Ordered incentive spirometer, continue pulmonary toilet and nebs - continue Bipap with 2L O2 at night while hospitalized, pulmonology recommends Trilogy, as patient is very high risk for CV events, arrhythmias and respiratory arrest/failure (2) Obstructive sleep apnea Code(s): G47.33 - OBSTRUCTIVE SLEEP APNEA (ADULT) (PEDIATRIC) SNOMED Code(s): 85087463 Comment: - Complicated by HF and OHS - Continue bipap with O2 and transition to trilogy for discharge (3) Atrial fibrillation Code(s): I48.91 - UNSPECIFIED ATRIAL FIBRILLATION SNOMED Code(s): 98667634 Comment: - Continue Xarelto, metoprolol (4) Wound of lower extremity Code(s): S81.809A - UNSPECIFIED OPEN WOUND, UNSPECIFIED LOWER LEG, INIT ENCNTR SNOMED Code(s): 462775182 Comment: - Appreciate wound nurse consult with the following recommendations: " recently managed at home with weekly wraps and compression stockings. on exam he has one superficial open area R lateral lower leg 2.5x1x0.1cm. moisturize legs, calcium alginate to open area. wrap legs with gauze and johanna weekly" - Wound is MRSA positive and Providencia Positive - Completed course of Bactrim, skin condition greatly improved (5) Chronic diastolic heart failure Code(s): I50.32 - CHRONIC DIASTOLIC (CONGESTIVE) HEART FAILURE SNOMED Code(s) : 098952414 Comment: - Continue titrating torsemide and O2 as needed (6) DVT prophylaxis Code(s): URB4093 - SNOMED Code(s): 966373501 Comment: - Asuncionrelto (7) Full code status Code(s): Z78.9 - OTHER SPECIFIED HEALTH STATUS SNOMED Code(s): 299527262 Comment: (8) Morbid obesity with BMI of 60.0-69.9, adult Code(s): E66.01 - MORBID (SEVERE) OBESITY DUE TO EXCESS CALORIES; Z68.44 - BODY MASS INDEX (BMI) 60.0-69.9, ADULT SNOMED Code(s): 529228350 Comment: - BMI noted, patient would benefit from concerted effort at weight loss (9) Obesity hypoventilation syndrome Code(s): E66.2 - MORBID (SEVERE) OBESITY WITH ALVEOLAR HYPOVENTILATION SNOMED Code(s): 338691017 Comment: - Continue BiPAP at night with supplemental O2 - Noted perisistent hypercarbia despit supplemental O2 and nightly bipap - Also has hx of pHTN, and new daytime O2 requirement - Continuous oxygen for pHTN in the setting of chronic hypoxic lung disease, needs Trilogy to prevent further decompensation Status and Disposition: Inpatient, discharge when Trilogy can be set up for home use.
--- NOTE | 2018-05-18 17:41 | PN ---
Progress Note - Progress Note Date of Service: 05/18/18 - Pulm f/u Note: Pt seen and examined at bedside. Pt reports improvement in breathing. Is concerned about not having any PT while here. Would like to go home to be able to continue to work on wt loss effort Active Medications Generic Name Dose Route Start Last Admin Trade Name Freq PRN Reason Stop Dose Admin Acetaminophen 650 mg 05/09/18 13:44 05/17/18 22:16 Tylenol Tab* PO 650 mg Q4H PRN Administration FEVER/PAIN Al Hydrox/Mg Hydrox/Simethicone 30 ml 05/09/18 13:44 05/09/18 22:08 Maalox Plus* PO 30 ml Q6H PRN Administration INDIGESTION Albuterol 2.5 mg 05/09/18 13:44 Ventolin 2.5 Mg/3 Ml Neb.Brandy* INH RT.[id number] AWAKE PRN sob/wheezing Albuterol 2 puff 05/09/18 13:48 Ventolin Hfa Inhaler* INH Q4H PRN SOB/WHEEZING Aspirin 81 mg 05/10/18 09:00 05/18/18 10:49 Aspirin Ec Tab* PO 81 mg DAILY [facility] Administration Device 1 each 05/15/18 15:00 Tiotropium Inhaler Device* .SEE ORDER .USE w/ SPIRIVA CAPS [facility] Diphenhydramine HCl 25 mg 05/09/18 13:48 05/17/18 22:17 Benadryl Po* PO 25 mg Q6H PRN Administration Allergy Symptoms Docusate Sodium 100 mg 05/09/18 13:48 05/17/18 22:17 Colace Cap* PO 100 mg BID PRN Administration CONSTIPATION Guaifenesin 1,200 mg 05/12/18 20:25 05/17/18 22:16 Mucinex* PO 1,200 mg BID PRN Administration COUGH Magnesium Citrate 300 ml 05/10/18 16:55 05/10/18 17:49 Citrate Of Magnesia* PO 300 ml DAILY PRN Administration CONSTIPATION Magnesium Hydroxide 30 ml 05/09/18 13:44 Milk Of Magnesia Liq* PO Q4H PRN CONSTIPATION Metoprolol Tartrate 12.5 mg 05/09/18 21:00 05/18/18 10:52 Lopressor Tab* PO 12.5 mg BID [facility] Administration Polymyxin/Trimethoprim Sulfate 1 drop 05/14/18 11:30 05/18/18 17:12 Polytrim Ophth* BOTH EYES 1 drop Q3H [facility] Administration Polyvinyl Alcohol 2 drop 05/13/18 22:56 05/14/18 09:35 Polyvinyl Alcohol 1.4% Opth* BOTH EYES 2 drop Q2H PRN Administration DRY EYE Rivaroxaban 20 mg 05/10/18 09:00 05/18/18 10:51 Xarelto(*) PO 20 mg DAILY [facility] Administration Senna 1 tab 05/13/18 13:16 05/17/18 22:17 Senokot Tab* PO 1 tab DAILY PRN Administration CONSTIPATION Throat Lozenges 1 jesus 05/13/18 22:56 05/18/18 14:14 Chloraseptic Jesus* PO 1 jesus Q6H PRN Administration SORE THROAT Tiotropium [place] 1 cap 05/16/18 09:00 05/18/18 07:44 Spiriva Cap.Inh* INH 1 cap DAILY [facility] Administration Torsemide 40 mg 05/16/18 09:00 05/18/18 10:50 Demadex* PO 40 mg DAILY [facility] Administration Vital Signs Temp Pulse Resp BP Pulse Ox 97.3 F 69 18 148/66 95 05/18/18 15:11 05/18/18 15:11 05/18/18 15:11 05/18/18 15:11 05/18/18 15:11 O/E: Pt in NAD, lying in bed HEENT: PERRLA Lungs: Clear to auscultation, decreased at bases CVS: S1, S2, regular Abd: Soft, BS+ Ext: edema Neuro: No focal deficits Skin: chronic skin changes Laboratory Results - last 24 hr 05/18/18 05/18/18 05:53 05:53 WBC 7.6 RBC 5.81 H Hgb 16.0 Hct 50 MCV 86 MCH 28 MCHC 32 RDW 16 H Plt Count 153 MPV 9.2 Neut % (Auto) 69.3 Lymph % (Auto) 18.6 [place] % (Auto) 8.4 Eos % (Auto) 3.2 Baso % (Auto) 0.5 Absolute Neuts (auto) 5.2 Absolute Lymphs (auto) 1.4 Absolute Monos (auto) 0.6 Absolute Eos (auto) 0.2 Absolute Basos (auto) 0 Absolute Nucleated RBC 0 Nucleated RBC % 0.1 Sodium 137 Potassium 3.8 Chloride 92 L Carbon Dioxide 38 H Anion Gap 7 BUN 33 H Creatinine 0.86 Est GFR ( Amer) 109.0 Est GFR (Non-Af Amer) 90.1 BUN/Creatinine Ratio 38.4 H Glucose 127 H Calcium 9.5 I/R: 62 y o morbidly obese m with h/o JAIDEN/OHS, COPD, chronic LE swelling, DVT/ PE a/w SOB secondary to acute CHF and COPD exacerbation that are improving Using nebs as needed Has been compliant with BiPAP usage Has been requiring O2, currently at 2L, could be titrated Would benefit from Trilogy given COPD and OHS, having issues with insurance coverage Has h/o recurrent hospitalizations Pt reports exposure to mold at home and having recurrent SOB when he is at home and starts to feel better when he is away from home situation Is requesting letter to support remediation measures for mold Understands importance of wt loss D/c planning
[2018-05-18] MEDS: diPHENhydraMINE PO* 25 MG PO PRN (21:02)
[2018-05-18] MEDS: Acetaminophen TAB* 325 MG PO PRN (21:03)
[2018-05-18] MEDS: Docusate CAP* 100 MG PO PRN (21:15)
[2018-05-19] MEDS: Polymyx/Trimethoprim OPTH* 10 ML BTL BOTH EYES SCH ×8 (02:36→23:26)
[2018-05-19] MEDS: Tiotropium CAP.INH* CAP.INH/18 MCG (USE ORDER SET !) INH SCH (09:18)
[2018-05-19] MEDS: Metoprolol Tartrate TAB* 25 MG PO SCH ×2 (10:21→20:29)
[2018-05-19] MEDS: Torsemide TAB* 20 MG PO SCH (10:22)
[2018-05-19] MEDS: Acetaminophen TAB* 325 MG PO PRN ×2 (10:22→20:28)
[2018-05-19] MEDS: Rivaroxaban TAB(*) 20 MG TAB PO SCH (10:22)
[2018-05-19] MEDS: Aspirin EC TAB* 81 MG TAB.EC PO SCH (10:23)
[2018-05-19] MEDS: Benzocaine/Menthol LOZ* 1 LOZENGE PO PRN ×2 (14:52→20:28)
--- NOTE | 2018-05-19 17:34 | PN ---
Subjective Date of Service: 05/19/18 Interval History: Patient seen and examined. Seems despondent. Per RN, patient making passive suicidal statements about going to a halfway. Per RN, patient apparently stated to her that he has a friend with a lot of prescription drugs that he would "use" if he was sent to a halfway. However, patient also seems disinclined to participate in his own care. He denies SOB, however he is not ambulating and requesting assistance with many ADLs that he can normally perform. Denies fevers or chills, no cough. No further complaints. Family History: Unchanged from Admission Social History: Unchanged from Admission Past Medical History: Unchanged from Admission Objective Active Medications: Acetaminophen (Tylenol Tab*) 650 mg PO Q4H PRN PRN Reason: FEVER/PAIN Last Admin: 05/19/18 10:22 Dose: 650 mg Al Hydrox/Mg Hydrox/Simethicone (Maalox Plus*) 30 ml PO Q6H PRN PRN Reason: INDIGESTION Last Admin: 05/09/18 22:08 Dose: 30 ml Albuterol (Ventolin 2.5 Mg/3 Ml Neb.Brandy*) 2.5 mg INH RT.[id number] AWAKE PRN PRN Reason: sob/wheezing Albuterol (Ventolin Hfa Inhaler*) 2 puff INH Q4H PRN PRN Reason: SOB/WHEEZING Aspirin (Aspirin Ec Tab*) 81 mg PO DAILY [facility] Last Admin: 05/19/18 10:23 Dose: 81 mg Device (Tiotropium Inhaler Device*) 1 each .SEE ORDER .USE w/ SPIRIVA CAPS [facility] Diphenhydramine HCl (Benadryl Po*) 25 mg PO Q6H PRN PRN Reason: Allergy Symptoms Last Admin: 05/18/18 21:02 Dose: 25 mg Docusate Sodium (Colace Cap*) 100 mg PO BID PRN PRN Reason: CONSTIPATION Last Admin: 05/18/18 21:15 Dose: 100 mg Guaifenesin (Mucinex*) 1,200 mg PO BID PRN PRN Reason: COUGH Last Admin: 05/17/18 22:16 Dose: 1,200 mg Magnesium Citrate (Citrate Of Magnesia*) 300 ml PO DAILY PRN PRN Reason: CONSTIPATION Last Admin: 05/10/18 17:49 Dose: 300 ml Magnesium Hydroxide (Milk Of Magnesia Liq*) 30 ml PO Q4H PRN PRN Reason: CONSTIPATION Metoprolol Tartrate (Lopressor Tab*) 12.5 mg PO BID [facility] Last Admin: 05/19/18 10:21 Dose: 12.5 mg Polymyxin/Trimethoprim Sulfate (Polytrim Ophth*) 1 drop BOTH EYES Q3H [facility] Last Admin: 05/19/18 14:52 Dose: 1 drop Polyvinyl Alcohol (Polyvinyl Alcohol 1.4% Opth*) 2 drop BOTH EYES Q2H PRN PRN Reason: DRY EYE Last Admin: 05/14/18 09:35 Dose: 2 drop Rivaroxaban (Xarelto(*)) 20 mg PO DAILY [facility] Last Admin: 05/19/18 10:22 Dose: 20 mg Senna (Senokot Tab*) 1 tab PO DAILY PRN PRN Reason: CONSTIPATION Last Admin: 05/17/18 22:17 Dose: 1 tab Throat Lozenges (Chloraseptic Al*) 1 al PO Q6H PRN PRN Reason: SORE THROAT Last Admin: 05/19/18 14:52 Dose: 1 al Tiotropium [place] (Spiriva Cap.Inh*) 1 cap INH DAILY [facility] Last Admin: 05/19/18 09:18 Dose: 1 cap Torsemide (Demadex*) 40 mg PO DAILY [facility] Last Admin: 05/19/18 10:22 Dose: 40 mg Vital Signs - 8 hr 05/19/18 05/19/18 12:00 15:45 Temperature 98.0 F 99.1 F Pulse Rate 69 74 Respiratory 16 18 Rate Blood Pressure 154/80 135/66 (mmHg) O2 Sat by Pulse 91 93 Oximetry Oxygen Devices in Use Now: Nasal Cannula, BiPAP Appearance: alert, NAD Eyes: No Scleral Icterus, PERRLA Ears/Nose/Mouth/Throat: NL Teeth, Lips, Gums, Mucous Membranes Moist Neck: NL Appearance and Movements; NL JVP, Trachea Midline Respiratory: Symmetrical Chest Expansion and Respiratory Effort, - - diminished throughout, poor air exchange/poor effort Cardiovascular: NL Sounds; No Murmurs; No JVD Abdominal: NL Sounds; No Tenderness; No Distention - obese, - Extremities: - - bilateral midfoot amputations with chronic wounds at baseline Neurological: Alert and Oriented x 3 Nutrition: Taking PO's Result Diagrams: 05/18/18 05:53 05/18/18 05:53 Additional Lab and Data: . Microbiology and Other Data: Microbiology 05/10/18 15:15 Leg Right Skin and Soft Tissue MRSA/MSSA (PCR - Final Mrsa Positive S.aureus Positive 05/10/18 15:15 Leg Right Gram Stain - Final 05/10/18 15:15 Leg Right Wound Culture - Final MRSA Providencia Stuartii Normal [place] Assess/Plan/Problems-Billing Assessment: Pt is a 62yom with PMHx COPD, JAIDEN, AF with sick sinus syndrome and PPM, diastolic HF, lymphedema, and h/o DVT/PE who presentd with SOB and was found to be in CHF and COPD exacerbation and is improving with diuresis, steroids, and inhalers. - Patient Problems (1) Acute and chronic respiratory failure with hypoxia Code(s): J96.21 - ACUTE AND CHRONIC RESPIRATORY FAILURE WITH HYPOXIA SNOMED Code(s): 68038336 Comment: - 2/2 by COPD exacerbation and likely CHF exacerbation and OHS - 70s on RA at presentation; Currently weaned to 2L; continue titrate oxygen to maintain satuation 92% - Continue nebulizers prn - Torsemide previously 20mg increased to 40 mg today for 5 days (day 2/5). Patient reports he will often take anywhere from 20 mg to 60 mg daily at home depending on edema and symptoms - Repeat chest xray consistent with pulmonary edema. - Prednisone discontinued as completed 6 days - Daily weights if possible - Ordered incentive spirometer, continue pulmonary toilet and nebs - continue Bipap with 2L O2 at night while hospitalized, pulmonology recommends Trilogy, as patient is very high risk for CV events, arrhythmias and respiratory arrest/failure (2) Obstructive sleep apnea Code(s): G47.33 - OBSTRUCTIVE SLEEP APNEA (ADULT) (PEDIATRIC) SNOMED Code(s): 62834061 Comment: - Complicated by HF and OHS - Continue bipap with O2 and transition to trilogy for discharge (3) Obesity hypoventilation syndrome Code(s): E66.2 - MORBID (SEVERE) OBESITY WITH ALVEOLAR HYPOVENTILATION SNOMED Code(s): 823212565 Comment: - Continue BiPAP at night with supplemental O2 - Noted perisistent hypercarbia despite supplemental O2 and nightly bipap - Also has hx of pHTN, and new daytime O2 requirement - Continuous oxygen for pHTN in the setting of chronic hypoxic lung disease, needs Trilogy to prevent further decompensation - Plan for Trilogy at discharge (4) Suicidal thoughts Code(s): R45.851 - SUICIDAL IDEATIONS SNOMED Code(s): 7449716 Comment: - Patient does not state active plan, but threatens if he is "dumped in a halfway" - Plan is actually for discharge to home with services, unclear why patient is pre-occupied with this - will consult psychiatry, as patient seems depressed with lack of interest in self care and may benefit from medication and outpatient follow up (5) Atrial fibrillation Code(s): I48.91 - UNSPECIFIED ATRIAL FIBRILLATION SNOMED Code(s): 09675385 Comment: - Continue Xarelto, metoprolol (6) Wound of lower extremity Code(s): S81.809A - UNSPECIFIED OPEN WOUND, UNSPECIFIED LOWER LEG, INIT ENCNTR SNOMED Code(s): 477092669 Comment: - Appreciate wound nurse consult with the following recommendations: " recently managed at home with weekly wraps and compression stockings. on exam he has one superficial open area R lateral lower leg 2.5x1x0.1cm. moisturize legs, calcium alginate to open area. wrap legs with gauze and johanna weekly" - Wound is MRSA positive and Providencia Positive - Completed course of Bactrim, skin condition greatly improved (7) Chronic diastolic heart failure Code(s): I50.32 - CHRONIC DIASTOLIC (CONGESTIVE) HEART FAILURE SNOMED Code(s) : 326891250 Comment: - Continue titrating torsemide and O2 as needed (8) DVT prophylaxis Code(s): AXN4230 - SNOMED Code(s): 265484922 Comment: - Xarelto (9) Full code status Code(s): Z78.9 - OTHER SPECIFIED HEALTH STATUS SNOMED Code(s): 328135561 Comment: (10) Morbid obesity with BMI of 60.0-69.9, adult Code(s): E66.01 - MORBID (SEVERE) OBESITY DUE TO EXCESS CALORIES; Z68.44 - BODY MASS INDEX (BMI) 60.0-69.9, ADULT SNOMED Code(s): 699780751 Comment: - BMI noted, patient would benefit from concerted effort at weight loss Status and Disposition: Inpatient, discharge when Trilogy can be set up for home use.
[2018-05-19] MEDS: Docusate CAP* 100 MG PO PRN (20:28)
[2018-05-19] MEDS: diPHENhydraMINE PO* 25 MG PO PRN (20:28)
[2018-05-19 23:49] LABS: Urine Appearance Cloudy; Urine Bacteria Absent (Absent); Urine Bilirubin Negative (Negative); Urine Blood 3+ (Negative); Urine Color Yellow; Urine Glucose Negative (Negative); Urine Ketones Negative (Negative); Urine Nitrite Negative (Negative); Urine Protein Negative (Negative); Urine Red Blood Cell 3+(>10/hpf) (Absent); Urine Specific Gravity 1.013 (1.010-1.030); Urine Urobilinogen Negative (Negative); Urine White Blood Cell 2+(11-20/hpf) (Absent)
[2018-05-20] MEDS: Polymyx/Trimethoprim OPTH* 10 ML BTL BOTH EYES SCH ×8 (03:50→23:35)
[2018-05-20] MEDS: Tiotropium CAP.INH* CAP.INH/18 MCG (USE ORDER SET !) INH SCH (07:54)
[2018-05-20] MEDS: Rivaroxaban TAB(*) 20 MG TAB PO SCH (08:34)
[2018-05-20] MEDS: Metoprolol Tartrate TAB* 25 MG PO SCH ×2 (08:34→22:29)
[2018-05-20] MEDS: Torsemide TAB* 20 MG PO SCH (08:34)
[2018-05-20] MEDS: Aspirin EC TAB* 81 MG TAB.EC PO SCH (08:34)
--- NOTE | 2018-05-20 19:15 | PN ---
Subjective Date of Service: 05/20/18 Interval History: Patient seen and examined. No acute overnight events. Patient states he feels his breathing is improving. No SOB, no chest pain, no fevers or chills. Family History: Unchanged from Admission Social History: Unchanged from Admission Past Medical History: Unchanged from Admission Objective Active Medications: Acetaminophen (Tylenol Tab*) 650 mg PO Q4H PRN PRN Reason: FEVER/PAIN Last Admin: 05/19/18 20:28 Dose: 650 mg Al Hydrox/Mg Hydrox/Simethicone (Maalox Plus*) 30 ml PO Q6H PRN PRN Reason: INDIGESTION Last Admin: 05/09/18 22:08 Dose: 30 ml Albuterol (Ventolin 2.5 Mg/3 Ml Neb.Brandy*) 2.5 mg INH RT.[id number] AWAKE PRN PRN Reason: sob/wheezing Albuterol (Ventolin Hfa Inhaler*) 2 puff INH Q4H PRN PRN Reason: SOB/WHEEZING Aspirin (Aspirin Ec Tab*) 81 mg PO DAILY [facility] Last Admin: 05/20/18 08:34 Dose: 81 mg Device (Tiotropium Inhaler Device*) 1 each .SEE ORDER .USE w/ SPIRIVA CAPS [facility] Diphenhydramine HCl (Benadryl Po*) 25 mg PO Q6H PRN PRN Reason: Allergy Symptoms Last Admin: 05/19/18 20:28 Dose: 25 mg Docusate Sodium (Colace Cap*) 100 mg PO BID PRN PRN Reason: CONSTIPATION Last Admin: 05/19/18 20:28 Dose: 100 mg Guaifenesin (Mucinex*) 1,200 mg PO BID PRN PRN Reason: COUGH Last Admin: 05/17/18 22:16 Dose: 1,200 mg Magnesium Citrate (Citrate Of Magnesia*) 300 ml PO DAILY PRN PRN Reason: CONSTIPATION Last Admin: 05/10/18 17:49 Dose: 300 ml Magnesium Hydroxide (Milk Of Magnesia Liq*) 30 ml PO Q4H PRN PRN Reason: CONSTIPATION Metoprolol Tartrate (Lopressor Tab*) 12.5 mg PO BID [facility] Last Admin: 05/20/18 08:34 Dose: 12.5 mg Polymyxin/Trimethoprim Sulfate (Polytrim Ophth*) 1 drop BOTH EYES Q3H [facility] Last Admin: 05/20/18 17:01 Dose: 1 drop Polyvinyl Alcohol (Polyvinyl Alcohol 1.4% Opth*) 2 drop BOTH EYES Q2H PRN PRN Reason: DRY EYE Last Admin: 05/14/18 09:35 Dose: 2 drop Rivaroxaban (Xarelto(*)) 20 mg PO DAILY [facility] Last Admin: 05/20/18 08:34 Dose: 20 mg Senna (Senokot Tab*) 1 tab PO DAILY PRN PRN Reason: CONSTIPATION Last Admin: 05/17/18 22:17 Dose: 1 tab Throat Lozenges (Chloraseptic Al*) 1 al PO Q6H PRN PRN Reason: SORE THROAT Last Admin: 05/19/18 20:28 Dose: 1 al Tiotropium [place] (Spiriva Cap.Inh*) 1 cap INH DAILY [facility] Last Admin: 05/20/18 07:54 Dose: 1 cap Torsemide (Demadex*) 40 mg PO DAILY [facility] Last Admin: 05/20/18 08:34 Dose: 40 mg Oxygen Devices in Use Now: Nasal Cannula, BiPAP Appearance: alert, NAD Eyes: No Scleral Icterus, PERRLA Ears/Nose/Mouth/Throat: NL Teeth, Lips, Gums, Mucous Membranes Moist Neck: NL Appearance and Movements; NL JVP, Trachea Midline Respiratory: Symmetrical Chest Expansion and Respiratory Effort, - - improved air entry, no wheezing, diminished bases Cardiovascular: NL Sounds; No Murmurs; No JVD, RRR Extremities: - - chronic LE wounds with bilat mid-foot amputations Skin: No Nodules or Sclerosis Neurological: Alert and Oriented x 3, NL Sensation Nutrition: Taking PO's Result Diagrams: 05/18/18 05:53 05/18/18 05:53 Additional Lab and Data: . Microbiology and Other Data: Microbiology 05/10/18 15:15 Leg Right Skin and Soft Tissue MRSA/MSSA (PCR - Final Mrsa Positive S.aureus Positive 05/10/18 15:15 Leg Right Gram Stain - Final 05/10/18 15:15 Leg Right Wound Culture - Final MRSA Providencia Stuartii Normal [place] Assess/Plan/Problems-Billing Assessment: Pt is a 62yom with PMHx COPD, JAIDEN, AF with sick sinus syndrome and PPM, diastolic HF, lymphedema, and h/o DVT/PE who presentd with SOB and was found to be in CHF and COPD exacerbation and is improving with diuresis, steroids, and inhalers. - Patient Problems (1) Acute and chronic respiratory failure with hypoxia Code(s): J96.21 - ACUTE AND CHRONIC RESPIRATORY FAILURE WITH HYPOXIA SNOMED Code(s): 79713377 Comment: - 2/2 by COPD exacerbation and likely CHF exacerbation and OHS - 70s on RA at presentation; Currently weaned to 2L; continue titrate oxygen to maintain satuation 92% - Continue nebulizers prn - Torsemide previously 20mg increased to 40 mg today for 5 days (day 2/5). Patient reports he will often take anywhere from 20 mg to 60 mg daily at home depending on edema and symptoms - Repeat chest xray consistent with pulmonary edema. - Prednisone discontinued as completed 6 days - Daily weights if possible - Ordered incentive spirometer, continue pulmonary toilet and nebs - continue Bipap with 2L O2 at night while hospitalized, pulmonology recommends Trilogy, as patient is very high risk for CV events, arrhythmias and respiratory arrest/failure (2) Obstructive sleep apnea Code(s): G47.33 - OBSTRUCTIVE SLEEP APNEA (ADULT) (PEDIATRIC) SNOMED Code(s): 41667336 Comment: - Complicated by HF and OHS - Continue bipap with O2 and transition to trilogy for discharge (3) Obesity hypoventilation syndrome Code(s): E66.2 - MORBID (SEVERE) OBESITY WITH ALVEOLAR HYPOVENTILATION SNOMED Code(s): 656420456 Comment: - Continue BiPAP at night with supplemental O2 - Noted perisistent hypercarbia despite supplemental O2 and nightly bipap - Also has hx of pHTN, and new daytime O2 requirement - Continuous oxygen for pHTN in the setting of chronic hypoxic lung disease, needs Trilogy to prevent further decompensation - Plan for Trilogy at discharge (4) Suicidal thoughts Code(s): R45.851 - SUICIDAL IDEATIONS SNOMED Code(s): 1853413 Comment: - Patient does not state active plan, but threatens if he is "dumped in a group home" - Today, patient contracts for safety, pending psychiatric consult (5) Atrial fibrillation Code(s): I48.91 - UNSPECIFIED ATRIAL FIBRILLATION SNOMED Code(s): 36664746 Comment: - Continue Xarelto, metoprolol (6) Wound of lower extremity Code(s): S81.809A - UNSPECIFIED OPEN WOUND, UNSPECIFIED LOWER LEG, INIT ENCNTR SNOMED Code(s): 081573539 Comment: - Appreciate wound nurse consult with the following recommendations - Superficial open area R lateral lower leg 2.5x1x0.1cm. moisturize legs, calcium alginate to open area. wrap legs with gauze and johanna weekly" - Wound is MRSA positive and Providencia Positive - Completed course of Bactrim, skin condition greatly improved (7) Chronic diastolic heart failure Code(s): I50.32 - CHRONIC DIASTOLIC (CONGESTIVE) HEART FAILURE SNOMED Code(s) : 952462339 Comment: - Continue titrating torsemide and O2 as needed (8) DVT prophylaxis Code(s): HIS3635 - SNOMED Code(s): 188598721 Comment: - Xarelto (9) Full code status Code(s): Z78.9 - OTHER SPECIFIED HEALTH STATUS SNOMED Code(s): 011309122 Comment: (10) Morbid obesity with BMI of 60.0-69.9, adult Code(s): E66.01 - MORBID (SEVERE) OBESITY DUE TO EXCESS CALORIES; Z68.44 - BODY MASS INDEX (BMI) 60.0-69.9, ADULT SNOMED Code(s): 450862037 Comment: - BMI noted, patient would benefit from concerted effort at weight loss Status and Disposition: Inpatient, initially Trilogy was supposed to be delivered today and trialed over the weekend, however, authorization was not obtained as per case mgmt. Will receive on Wednesday, will need to trial and discharge to home Wednesday or Wednesday.
[2018-05-20] MEDS: Acetaminophen TAB* 325 MG PO PRN (22:28)
[2018-05-20] MEDS: diPHENhydraMINE PO* 25 MG PO PRN (22:28)
[2018-05-20] MEDS: Docusate CAP* 100 MG PO PRN (22:29)
[2018-05-20] MEDS: Benzocaine/Menthol LOZ* 1 LOZENGE PO PRN (22:29)
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
[2018-05-21] MEDS: Polymyx/Trimethoprim OPTH* 10 ML BTL BOTH EYES SCH ×8 (02:06→22:55)
[2018-05-21] MEDS: Tiotropium CAP.INH* CAP.INH/18 MCG (USE ORDER SET !) INH SCH (08:30)
[2018-05-21] MEDS: Aspirin EC TAB* 81 MG TAB.EC PO SCH (08:31)
[2018-05-21] MEDS: Metoprolol Tartrate TAB* 25 MG PO SCH ×2 (08:31→20:30)
[2018-05-21] MEDS: Rivaroxaban TAB(*) 20 MG TAB PO SCH (08:32)
[2018-05-21] MEDS: Torsemide TAB* 20 MG PO SCH (08:32)
[2018-05-21 12:45] LABS: Urine Appearance Clear; Urine Bacteria Absent (Absent); Urine Bilirubin Negative (Negative); Urine Blood 2+ (Negative); Urine Color Yellow; Urine Glucose Negative (Negative); Urine Ketones Negative (Negative); Urine Nitrite Negative (Negative); Urine Protein Negative (Negative); Urine Red Blood Cell 1+(3-5/hpf) (Absent); Urine Specific Gravity 1.008 (1.010-1.030); Urine Squamous Epithelial Cell Present (Absent); Urine Urobilinogen Negative (Negative); Urine White Blood Cell Trace(0-5/hpf) (Absent)
--- NOTE | 2018-05-21 15:52 | PN ---
Subjective Date of Service: 05/21/18 Interval History: Patient seen and examined. Complaint of hematuria and "bladder pain". denies SOB , no chest pain, no cough. Overall feels breathing is improving. Family History: Unchanged from Admission Social History: Unchanged from Admission Past Medical History: Unchanged from Admission Objective Active Medications: Acetaminophen (Tylenol Tab*) 650 mg PO Q4H PRN PRN Reason: FEVER/PAIN Last Admin: 05/20/18 22:28 Dose: 650 mg Al Hydrox/Mg Hydrox/Simethicone (Maalox Plus*) 30 ml PO Q6H PRN PRN Reason: INDIGESTION Last Admin: 05/09/18 22:08 Dose: 30 ml Albuterol (Ventolin 2.5 Mg/3 Ml Neb.Brandy*) 2.5 mg INH [id number] AWAKE PRN PRN Reason: sob/wheezing Albuterol (Ventolin Hfa Inhaler*) 2 puff INH Q4H PRN PRN Reason: SOB/WHEEZING Aspirin (Aspirin Ec Tab*) 81 mg PO DAILY [facility] Last Admin: 05/21/18 08:31 Dose: 81 mg Device (Tiotropium Inhaler Device*) 1 each .SEE ORDER .USE w/ SPIRIVA CAPS [facility] Diphenhydramine HCl (Benadryl Po*) 25 mg PO Q6H PRN PRN Reason: Allergy Symptoms Last Admin: 05/20/18 22:28 Dose: 25 mg Docusate Sodium (Colace Cap*) 100 mg PO BID PRN PRN Reason: CONSTIPATION Last Admin: 05/20/18 22:29 Dose: 100 mg Guaifenesin (Mucinex*) 1,200 mg PO BID PRN PRN Reason: COUGH Last Admin: 05/17/18 22:16 Dose: 1,200 mg Magnesium Citrate (Citrate Of Magnesia*) 300 ml PO DAILY PRN PRN Reason: CONSTIPATION Last Admin: 05/10/18 17:49 Dose: 300 ml Magnesium Hydroxide (Milk Of Magnesia Liq*) 30 ml PO Q4H PRN PRN Reason: CONSTIPATION Metoprolol Tartrate (Lopressor Tab*) 12.5 mg PO BID [facility] Last Admin: 05/21/18 08:31 Dose: 12.5 mg Polymyxin/Trimethoprim Sulfate (Polytrim Ophth*) 1 drop BOTH EYES Q3H [facility] Last Admin: 05/21/18 15:26 Dose: 1 drop Polyvinyl Alcohol (Polyvinyl Alcohol 1.4% Opth*) 2 drop BOTH EYES Q2H PRN PRN Reason: DRY EYE Last Admin: 05/14/18 09:35 Dose: 2 drop Rivaroxaban (Xarelto(*)) 20 mg PO DAILY [facility] Last Admin: 05/21/18 08:32 Dose: 20 mg Senna (Senokot Tab*) 1 tab PO DAILY PRN PRN Reason: CONSTIPATION Last Admin: 05/17/18 22:17 Dose: 1 tab Throat Lozenges (Chloraseptic Al*) 1 al PO Q6H PRN PRN Reason: SORE THROAT Last Admin: 05/20/18 22:29 Dose: 1 al Tiotropium [place] (Spiriva Cap.Inh*) 1 cap INH DAILY [facility] Last Admin: 05/21/18 08:30 Dose: 1 cap Torsemide (Demadex*) 40 mg PO DAILY [facility] Last Admin: 05/21/18 08:32 Dose: 40 mg Vital Signs - 8 hr 05/21/18 05/21/18 05/21/18 08:00 08:05 11:47 Temperature 97.3 F 98.5 F Pulse Rate 65 65 Respiratory 18 18 16 Rate Blood Pressure 145/80 127/69 (mmHg) O2 Sat by Pulse 92 91 Oximetry Oxygen Devices in Use Now: Nasal Cannula, BiPAP Appearance: alert, NAD Eyes: No Scleral Icterus, PERRLA Ears/Nose/Mouth/Throat: NL Teeth, Lips, Gums, Mucous Membranes Moist Neck: NL Appearance and Movements; NL JVP, Trachea Midline Respiratory: Symmetrical Chest Expansion and Respiratory Effort, - - diminished throughout with good air entry Cardiovascular: NL Sounds; No Murmurs; No JVD, RRR Abdominal: NL Sounds; No Tenderness; No Distention, - - obese Extremities: - - bilateral LE edema with SYLVIA wraps Skin: - - per wound notes: "superficial open area R lateral lower leg 2.5x1x0.1cm", wounds currently wrapped Nutrition: Taking PO's Result Diagrams: 05/18/18 05:53 05/18/18 05:53 Additional Lab and Data: . Microbiology and Other Data: Microbiology 05/10/18 15:15 Leg Right Skin and Soft Tissue MRSA/MSSA (PCR - Final Mrsa Positive S.aureus Positive 05/10/18 15:15 Leg Right Gram Stain - Final 05/10/18 15:15 Leg Right Wound Culture - Final MRSA Providencia Stuartii Normal [place] Assess/Plan/Problems-Billing Assessment: Pt is a 62yom with PMHx COPD, JAIDEN, AF with sick sinus syndrome and PPM, diastolic HF, lymphedema, and h/o DVT/PE who presentd with SOB and was found to be in CHF and COPD exacerbation and is improving with diuresis, steroids, and inhalers. - Patient Problems (1) Acute and chronic respiratory failure with hypoxia Code(s): J96.21 - ACUTE AND CHRONIC RESPIRATORY FAILURE WITH HYPOXIA SNOMED Code(s): 12209851 Comment: - 2/2 by COPD exacerbation and likely CHF exacerbation and OHS - 70s on RA at presentation; Currently weaned to 2L; continue titrate oxygen to maintain satuation 92% - Continue nebulizers prn - Torsemide previously 20mg increased to 40 mg today for 5 days (day 2/5). Patient reports he will often take anywhere from 20 mg to 60 mg daily at home depending on edema and symptoms - Repeat chest xray consistent with pulmonary edema. - Prednisone discontinued as completed 6 days - Daily weights if possible - Ordered incentive spirometer, continue pulmonary toilet and nebs - continue Bipap with 2L O2 at night while hospitalized, pulmonology recommends Trilogy, as patient is very high risk for CV events, arrhythmias and respiratory arrest/failure (2) Obstructive sleep apnea Code(s): G47.33 - OBSTRUCTIVE SLEEP APNEA (ADULT) (PEDIATRIC) SNOMED Code(s): 15540407 Comment: - Complicated by HF and OHS - Continue bipap with O2 and transition to trilogy for discharge (3) Obesity hypoventilation syndrome Code(s): E66.2 - MORBID (SEVERE) OBESITY WITH ALVEOLAR HYPOVENTILATION SNOMED Code(s): 296059055 Comment: - Continue BiPAP at night with supplemental O2 - Noted perisistent hypercarbia despite supplemental O2 and nightly bipap - Also has hx of pHTN, and new daytime O2 requirement - Continuous oxygen for pHTN in the setting of chronic hypoxic lung disease, needs Trilogy to prevent further decompensation - Plan for Trilogy at discharge (4) Suicidal thoughts Code(s): R45.851 - SUICIDAL IDEATIONS SNOMED Code(s): 1806067 Comment: - Patient does not state active plan, but threatened to nurse that he would take overdose of pills if he is "dumped in a intermediate" - Patient continues to endorse no plan and says this statement was out of frustration and he does not intend to hurt himself - Psychiatric consultation cancelled (5) Atrial fibrillation Code(s): I48.91 - UNSPECIFIED ATRIAL FIBRILLATION SNOMED Code(s): 75996962 Comment: - Continue Xarelto, metoprolol (6) Wound of lower extremity Code(s): S81.809A - UNSPECIFIED OPEN WOUND, UNSPECIFIED LOWER LEG, INIT ENCNTR SNOMED Code(s): 949273478 Comment: - Appreciate wound nurse consult with the following recommendation: moisturize legs, calcium alginate to open area. wrap legs with gauze and sylvia weekly - Wound is MRSA positive and Providencia Positive - Completed course of Bactrim, skin condition greatly improved (7) Chronic diastolic heart failure Code(s): I50.32 - CHRONIC DIASTOLIC (CONGESTIVE) HEART FAILURE SNOMED Code(s) : 439705024 Comment: - Continue titrating torsemide and O2 as needed (8) DVT prophylaxis Code(s): XTP2029 - SNOMED Code(s): 652503662 Comment: - Xarelto (9) Full code status Code(s): Z78.9 - OTHER SPECIFIED HEALTH STATUS SNOMED Code(s): 525689873 Comment: (10) Morbid obesity with BMI of 60.0-69.9, adult Code(s): E66.01 - MORBID (SEVERE) OBESITY DUE TO EXCESS CALORIES; Z68.44 - BODY MASS INDEX (BMI) 60.0-69.9, ADULT SNOMED Code(s): 644747765 Comment: - BMI noted, patient would benefit from concerted effort at weight loss Status and Disposition: Inpatient, initially Trilogy was supposed to be delivered 05/20/18 and trialed over the weekend, however, authorization was not obtained as per case mgmt. Will receive on Wednesday, will need to trial and discharge to home Wednesday or Wednesday.
[2018-05-21] MEDS: Acetaminophen TAB* 325 MG PO PRN (20:30)
[2018-05-21] MEDS: Docusate CAP* 100 MG PO PRN (20:30)
[2018-05-21] MEDS: diPHENhydraMINE PO* 25 MG PO PRN (20:30)
[2018-05-21] MEDS: Benzocaine/Menthol LOZ* 1 LOZENGE PO PRN (20:33)
[2018-05-22] MEDS: Polymyx/Trimethoprim OPTH* 10 ML BTL BOTH EYES SCH ×7 (03:03→22:03)
[2018-05-22] MEDS: Tiotropium CAP.INH* CAP.INH/18 MCG (USE ORDER SET !) INH SCH (07:55)
[2018-05-22] MEDS: Torsemide TAB* 20 MG PO SCH (08:18)
[2018-05-22] MEDS: Metoprolol Tartrate TAB* 25 MG PO SCH ×2 (08:18→22:01)
[2018-05-22] MEDS: Aspirin EC TAB* 81 MG TAB.EC PO SCH (08:18)
[2018-05-22] MEDS: Rivaroxaban TAB(*) 20 MG TAB PO SCH (08:18)
--- NOTE | 2018-05-22 14:25 | PN ---
Subjective Date of Service: 05/22/18 Interval History: Mr. Shafer is feeling better today. He has no respiratory complaints. Denies CP or SOB. His main complaint is that he believes he is developing a UTI. He reports suprapubic pain and frequency. He is also concerned about a fever of 99.1F yesterday. He reports his urine was bloody yesterday, but not today. He does have a history of kidney stones and had a procedure last year at [facility]. Family History: Unchanged from Admission Social History: Unchanged from Admission Past Medical History: Unchanged from Admission Objective Active Medications: Acetaminophen (Tylenol Tab*) 650 mg PO Q4H PRN FEVER/PAIN Al Hydrox/Mg Hydrox/Simethicone (Maalox Plus*) 30 ml PO Q6H PRN INDIGESTION Albuterol (Ventolin 2.5 Mg/3 Ml Neb.Brandy*) 2.5 mg INH [id number] AWAKE PRN sob/wheezing Albuterol (Ventolin Hfa Inhaler*) 2 puff INH Q4H PRN SOB/WHEEZING Aspirin (Aspirin Ec Tab*) 81 mg PO DAILY [place] Device (Tiotropium Inhaler Device*) 1 each .SEE ORDER .USE w/ SPIRIVA CAPS [place] Diphenhydramine HCl (Benadryl Po*) 25 mg PO Q6H PRN Allergy Symptoms Docusate Sodium (Colace Cap*) 100 mg PO BID PRN CONSTIPATION Guaifenesin (Mucinex*) 1,200 mg PO BID PRN COUGH Magnesium Citrate (Citrate Of Magnesia*) 300 ml PO DAILY PRN CONSTIPATION Magnesium Hydroxide (Milk Of Magnesia Liq*) 30 ml PO Q4H PRN CONSTIPATION Metoprolol Tartrate (Lopressor Tab*) 12.5 mg PO BID [facility] Polymyxin/Trimethoprim Sulfate (Polytrim Ophth*) 1 drop BOTH EYES Q3H [place] Polyvinyl Alcohol (Polyvinyl Alcohol 1.4% Opth*) 2 drop BOTH EYES Q2H PRN DRY EYE Rivaroxaban (Xarelto(*)) 20 mg PO DAILY [facility] Senna (Senokot Tab*) 1 tab PO DAILY PRN CONSTIPATION Throat Lozenges (Chloraseptic Al*) 1 al PO Q6H PRN SORE THROAT Tiotropium [place] (Spiriva Cap.Inh*) 1 cap INH DAILY [facility] Torsemide (Demadex*) 40 mg PO DAILY [facility] Vital Signs - 8 hr 05/22/18 05/22/18 05/22/18 07:05 08:00 12:23 Temperature 98.3 F 98.6 F Pulse Rate 76 69 Respiratory 18 18 20 Rate Blood Pressure 155/76 125/69 (mmHg) O2 Sat by Pulse 90 90 Oximetry Oxygen Devices in Use Now: Nasal Cannula - 2L Appearance: Middle-aged male sitting in bed in NAD Eyes: No Scleral Icterus Ears/Nose/Mouth/Throat: Mucous Membranes Moist Neck: NL Appearance and Movements; NL JVP, Trachea Midline Respiratory: Symmetrical Chest Expansion and Respiratory Effort, Clear to Auscultation Cardiovascular: NL Sounds; No Murmurs; No JVD, RRR Abdominal: - - Tenderness to RLQ; Normoactive BS Neurological: Alert and Oriented x 3 Lines/Tubes/Other Access: Clean, Dry and Intact Peripheral IV Nutrition: Taking PO's Result Diagrams: 05/18/18 05:53 05/18/18 05:53 Assess/Plan/Problems-Billing Assessment: Mr. Shafer is a 62yo M with PMH of COPD, JAIDEN, AF with sick sinus syndrome and PPM, diastolic HF, lymphedema, and h/o DVT/PE; who presentd with SOB and was found to be in CHF and COPD exacerbation and has improved with diuresis, steroids, and inhalers. - Patient Problems (1) Acute and chronic respiratory failure with hypoxia Code(s): J96.21 - ACUTE AND CHRONIC RESPIRATORY FAILURE WITH HYPOXIA Comment: - Secondary to COPD exacerbation, likely CHF exacerbation and OHS - Saturations in the 70s on RA at presentation; currently weaned to 2L - Repeat chest xray consistent with pulmonary edema - Continue to titrate oxygen to maintain satuation 92% - Completed 6 day course of prednisone - Continue nebs (2) Obesity hypoventilation syndrome Code(s): E66.2 - MORBID (SEVERE) OBESITY WITH ALVEOLAR HYPOVENTILATION Comment : - Continue BiPAP at night with supplemental O2 - Noted perisistent hypercarbia despite supplemental O2 and nightly bipap - Also has hx of pHTN and new daytime O2 requirement - Continuous oxygen for pHTN in the setting of chronic hypoxic lung disease, needs Trilogy to prevent further decompensation - Plan for Trilogy at discharge (3) Obstructive sleep apnea Code(s): G47.33 - OBSTRUCTIVE SLEEP APNEA (ADULT) (PEDIATRIC) Comment: - Complicated by dCHF and OHS - Continue bipap with O2 at HS with transition to Trilogy for discharge (4) Hematuria Code(s): R31.9 - HEMATURIA, UNSPECIFIED Comment: - Chronic; according to records, hematuria has been present on nearly every UA since 2013 - No evidence for UTI based on UA - Continue to monitor but will continue Xarelto at this point (5) Chronic diastolic heart failure Code(s): I50.32 - CHRONIC DIASTOLIC (CONGESTIVE) HEART FAILURE Comment: - Echo shows EF 55-60% but very limited study d/t body habitus - Continue torsemide increased to 40 mg (day 4/); patient reports he will often take anywhere from 20 mg to 60 mg daily at home depending on edema and symptoms (6) Atrial fibrillation Code(s): I48.91 - UNSPECIFIED ATRIAL FIBRILLATION Comment: - Rate controlled - Continue Xarelto, metoprolol (7) History of DVT (deep vein thrombosis) Code(s): Z86.718 - PERSONAL HISTORY OF OTHER VENOUS THROMBOSIS AND EMBOLISM Comment: - Continue Xarelto (8) Morbid obesity Code(s): E66.01 - MORBID (SEVERE) OBESITY DUE TO EXCESS CALORIES Comment: - BMI 65 (9) DVT prophylaxis Comment: - Xarelto (10) Full code status Current Visit: No Status: Acute Code(s): Z78.9 - OTHER SPECIFIED HEALTH STATUS SNOMED Code(s): 403447488 Comment: Status and Disposition: Inpatient. Initially Trilogy was supposed to be delivered 05/20/18 and trialed over the weekend, however, authorization was not obtained as per case management. Will receive on Wednesday, will need to trial and discharge to home Wednesday or Wednesday. Attending: Nataly López
[2018-05-22] MEDS: Docusate CAP* 100 MG PO PRN (22:01)
[2018-05-22] MEDS: diPHENhydraMINE PO* 25 MG PO PRN (22:01)
[2018-05-22] MEDS: Benzocaine/Menthol LOZ* 1 LOZENGE PO PRN (22:01)
[2018-05-22] MEDS: Acetaminophen TAB* 325 MG PO PRN (22:02)
[2018-05-22] MEDS: guaiFENesin ER TAB 600 MG PO PRN (22:37)
[2018-05-23] MEDS: Polymyx/Trimethoprim OPTH* 10 ML BTL BOTH EYES SCH ×8 (02:24→22:11)
[2018-05-23] MEDS: Torsemide TAB* 20 MG PO SCH (07:36)
[2018-05-23] MEDS: Aspirin EC TAB* 81 MG TAB.EC PO SCH (07:36)
[2018-05-23] MEDS: Metoprolol Tartrate TAB* 25 MG PO SCH ×2 (07:37→22:09)
[2018-05-23] MEDS: Rivaroxaban TAB(*) 20 MG TAB PO SCH (07:37)
[2018-05-23] MEDS: Tiotropium CAP.INH* CAP.INH/18 MCG (USE ORDER SET !) INH SCH (08:44)
[2018-05-23] MEDS ORDERED: GuaiFENesin DM* 5 ML UDC PO PRN (11:58)
--- NOTE | 2018-05-23 12:02 | PN ---
Subjective Date of Service: 05/23/18 Interval History: Mr. Shafer is feeling well today. He c/o a dry hacking cough which he states he gets quite frequently. He typically takes cough syrup which resolves the cough. No further urinary complaints. Does not typically use oxygen during the day, only at night. States he tries to keep his saturations 88-92% because he is a CO2 retainer. Denies CP, SOB, N/V. Family History: Unchanged from Admission Social History: Unchanged from Admission Past Medical History: Unchanged from Admission Objective Active Medications: Acetaminophen (Tylenol Tab*) 650 mg PO Q4H PRN FEVER/PAIN Al Hydrox/Mg Hydrox/Simethicone (Maalox Plus*) 30 ml PO Q6H PRN INDIGESTION Albuterol (Ventolin 2.5 Mg/3 Ml Neb.Brandy*) 2.5 mg INH [id number] AWAKE PRN sob/wheezing Albuterol (Ventolin Hfa Inhaler*) 2 puff INH Q4H PRN SOB/WHEEZING Aspirin (Aspirin Ec Tab*) 81 mg PO DAILY PORTIA Device (Tiotropium Inhaler Device*) 1 each .SEE ORDER .USE w/ SPIRIVA CAPS PORTIA Diphenhydramine HCl (Benadryl Po*) 25 mg PO Q6H PRN Allergy Symptoms Docusate Sodium (Colace Cap*) 100 mg PO BID PRN CONSTIPATION Guaifenesin (Mucinex*) 1,200 mg PO BID PRN COUGH Guaifenesin/Dextromethorphan (Robitussin Dm*) 5 ml PO Q4H PRN COUGH Magnesium Citrate (Citrate Of Magnesia*) 300 ml PO DAILY PRN CONSTIPATION Magnesium Hydroxide (Milk Of Magnesia Liq*) 30 ml PO Q4H PRN CONSTIPATION Metoprolol Tartrate (Lopressor Tab*) 12.5 mg PO BID PORTIA Polymyxin/Trimethoprim Sulfate (Polytrim Ophth*) 1 drop BOTH EYES Q3H PORTIA Polyvinyl Alcohol (Polyvinyl Alcohol 1.4% Opth*) 2 drop BOTH EYES Q2H PRN DRY EYE Rivaroxaban (Xarelto(*)) 20 mg PO DAILY PORTIA Senna (Senokot Tab*) 1 tab PO DAILY PRN CONSTIPATION Throat Lozenges (Chloraseptic Al*) 1 al PO Q6H PRN SORE THROAT Tiotropium [place] (Spiriva Cap.Inh*) 1 cap INH DAILY PORTIA Torsemide (Demadex*) 40 mg PO DAILY PORTIA Vital Signs - 8 hr 05/23/18 05/23/18 05/23/18 07:28 07:30 07:34 Temperature 97.3 F Pulse Rate 72 64 Respiratory 16 18 Rate Blood Pressure 132/70 146/76 (mmHg) O2 Sat by Pulse 85 92 Oximetry 05/23/18 05/23/18 05/23/18 07:51 08:00 11:09 Temperature 99.1 F Pulse Rate 87 69 Respiratory 16 18 20 Rate Blood Pressure 141/64 (mmHg) O2 Sat by Pulse 90 89 Oximetry Oxygen Devices in Use Now: Nasal Cannula - 2L Appearance: Middle-aged obese male sitting in bed in NAD Eyes: No Scleral Icterus Ears/Nose/Mouth/Throat: Mucous Membranes Moist Neck: NL Appearance and Movements; NL JVP, Trachea Midline Respiratory: Symmetrical Chest Expansion and Respiratory Effort, Clear to Auscultation Cardiovascular: NL Sounds; No Murmurs; No JVD Abdominal: NL Sounds; No Tenderness; No Distention Extremities: No Clubbing, Cyanosis Neurological: Alert and Oriented x 3 Lines/Tubes/Other Access: Clean, Dry and Intact Peripheral IV Nutrition: Taking PO's Result Diagrams: 05/18/18 05:53 05/18/18 05:53 Assess/Plan/Problems-Billing Assessment: Mr. Shafer is a 62yo M with PMH of COPD, JAIDEN, AF with sick sinus syndrome and PPM, diastolic HF, lymphedema, and h/o DVT/PE; who presentd with SOB and was found to be in CHF and COPD exacerbation and has improved with diuresis, steroids, and inhalers. - Patient Problems (1) Acute and chronic respiratory failure with hypoxia Code(s): J96.21 - ACUTE AND CHRONIC RESPIRATORY FAILURE WITH HYPOXIA Comment: - Secondary to COPD exacerbation, likely CHF exacerbation and OHS - Saturations in the 70s on RA at presentation; currently weaned to 1L and will try to wean to RA prior to d/c - Repeat chest xray consistent with pulmonary edema - Continue to titrate oxygen to maintain satuation 88-92% - Completed 6 day course of prednisone - Continue nebs (2) Obesity hypoventilation syndrome Code(s): E66.2 - MORBID (SEVERE) OBESITY WITH ALVEOLAR HYPOVENTILATION Comment : - Continue BiPAP at night with supplemental O2 - Noted perisistent hypercarbia despite supplemental O2 and nightly bipap - Also has hx of pHTN and new daytime O2 requirement - Continuous oxygen for pHTN in the setting of chronic hypoxic lung disease, needs Trilogy to prevent further decompensation - Plan for Trilogy to start tonight after delivery and d/c tomorrow as long as he tolerates it well (3) Obstructive sleep apnea Code(s): G47.33 - OBSTRUCTIVE SLEEP APNEA (ADULT) (PEDIATRIC) Comment: - Complicated by dCHF and OHS - Start Trilogy tonight (4) Hematuria Code(s): R31.9 - HEMATURIA, UNSPECIFIED Comment: - Chronic; according to records, hematuria has been present on nearly every UA since 2013 - No evidence for UTI based on UA - Continue to monitor but will continue Xarelto at this point (5) Chronic diastolic heart failure Code(s): I50.32 - CHRONIC DIASTOLIC (CONGESTIVE) HEART FAILURE Comment: - Echo shows EF 55-60% but very limited study d/t body habitus - Continue torsemide increased to 40 mg (day 07/17); patient reports he will often take anywhere from 20 mg to 60 mg daily at home depending on edema and symptoms (6) Atrial fibrillation Code(s): I48.91 - UNSPECIFIED ATRIAL FIBRILLATION Comment: - Rate controlled - Continue Xarelto, metoprolol (7) History of DVT (deep vein thrombosis) Code(s): Z86.718 - PERSONAL HISTORY OF OTHER VENOUS THROMBOSIS AND EMBOLISM Comment: - Continue Xarelto (8) Morbid obesity Code(s): E66.01 - MORBID (SEVERE) OBESITY DUE TO EXCESS CALORIES Comment: - BMI 65 (9) DVT prophylaxis Comment: - Xarelto (10) Full code status Current Visit: No Status: Acute Code(s): Z78.9 - OTHER SPECIFIED HEALTH STATUS SNOMED Code(s): 463873442 Comment: Status and Disposition: Inpatient. Initially Trilogy was supposed to be delivered 05/20/18 and trialed over the weekend, however, authorization was not obtained as per case management. Will receive on Wednesday, will need to trial and discharge to home Wednesday or Wednesday. Attending: Nataly López
[2018-05-23] MEDS: guaiFENesin ER TAB 600 MG PO PRN (22:08)
[2018-05-23] MEDS: Benzocaine/Menthol LOZ* 1 LOZENGE PO PRN (22:09)
[2018-05-23] MEDS: diPHENhydraMINE PO* 25 MG PO PRN (22:09)
[2018-05-23] MEDS: Acetaminophen TAB* 325 MG PO PRN (22:09)
[2018-05-24] MEDS: Polymyx/Trimethoprim OPTH* 10 ML BTL BOTH EYES SCH ×5 (00:28→12:07)
[2018-05-24 08:29] VITALS: BP 139/72
[2018-05-24] MEDS: Tiotropium CAP.INH* CAP.INH/18 MCG (USE ORDER SET !) INH SCH (08:47)
[2018-05-24] MEDS ORDERED: Torsemide TAB* 20 MG PO SCH (09:00)
[2018-05-24] MEDS: Rivaroxaban TAB(*) 20 MG TAB PO SCH (09:11)
[2018-05-24] MEDS: Metoprolol Tartrate TAB* 25 MG PO SCH (09:11)
[2018-05-24] MEDS: Aspirin EC TAB* 81 MG TAB.EC PO SCH (09:11)
--- NOTE | 2018-05-24 12:57 | DS ---
CC: Dr. Javier Gilliland * DISCHARGE SUMMARY: DATE OF ADMISSION: 05/09/18 DATE OF DISCHARGE: 05/24/18 PRIMARY CARE PROVIDER: Dr. Javier Gilliland. ATTENDING PHYSICIAN: Dr. Giulia Castelan * (dictated by Demetrice Lopez NP). PRIMARY DIAGNOSES: 1. Acute on chronic respiratory failure with hypoxia. 2. Obesity hypoventilation syndrome. 3. Obstructive sleep apnea. 4. Acute on chronic diastolic heart failure. 5. Chronic obstructive pulmonary disease exacerbation. 6. Hematuria. SECONDARY DIAGNOSES: 1. Atrial fibrillation. 2. History of deep vein thrombosis/pulmonary embolism. 3. Bilateral lower extremity lymphedema. STUDIES WHILE IN THE HOSPITAL: 1. Chest x-ray on 05/09/18 reads as cardiomegaly. Pulmonary arteries are markedly enlarged as identified on a prior chest CT, interstitial edema and vascular congestion is noted. 2 EKG on 05/09/18 shows normal sinus rhythm with a rate of 60, QTc 461, no changes when compared with prior EKG on file from 2018. 3. Chest x-ray on 05/15/18 reads as chest x-ray findings are most consistent with cardiogenic pulmonary edema similar in appearance to the most recent chest x-ray on . 4. Transthoracic echocardiogram on 05/16/18 reads as the study is technically limited due to the patient's body habitus. The estimated ejection fraction is 55% to 60%. Very poor visibility. Grossly normal LV function. The aortic, mitral, tricuspid, and pulmonic valves are not well visualized. CONSULTATIONS WHILE IN THE HOSPITAL: 1. The patient was seen in consultation by Dr. Valencia from Pulmonology on 05/12. 2. The patient was seen in consultation by Riri Jean-Baptiste NP from Psychiatry on 05/20/18. HISTORY OF PRESENT ILLNESS AND HOSPITAL COURSE: Mr. Shafer is a 62-year-old male well known to our service with past medical history of DVT and PE, on Xarelto; COPD; obesity hypoventilation syndrome; obstructive sleep apnea; chronic hypoxic respiratory failure, on BiPAP and 3 L oxygen at night; atrial fibrillation, status post pacemaker placement; chronic diastolic congestive heart failure; and bilateral lower extremity lymphedema, who presented to the emergency room on 05/09/18 with complaints of shortness of breath. Please see the history and physical by Latisha Cisse NP for complete summary of events leading up to this hospitalization. In short, the patient had reported progressive worsening of his shortness of breath over the last few days. He noted that his O2 saturation at home had been between 72% and 76%. He called EMS and was brought into the emergency room where he was noted to be maintaining saturations in the 90s on 4 L. He did have an ABG, which was remarkable for a high PCO2 and low PO2. Because of his hypoxic respiratory failure, he was admitted by the hospitalist service. The patient was noted to have crackles in bilateral lung bases and reported that he had increased his diuretic dose at home. He was given IV furosemide in the emergency room as chest x-ray was concerning for pulmonary edema. It was felt that he had a COPD exacerbation with expiratory wheezing. He was placed on prednisone, although antibiotics were held. Ultimately the patient required up to 5 L of oxygen to maintain saturations in the 90s. He was continued on his usual BiPAP and oxygen at night and was continued on prednisone as well as increased dosing of his torsemide. The patient was seen in consultation by Dr. Valencia on 05/12/18 who felt as though he would benefit from a Trilogy for the best management of his obesity hypoventilation syndrome. She also noted some concern about his home environment due to the possibility of mold exposure. A Trilogy machine was ordered by Case Management. Ultimately, the patient did complete a 6-day course of prednisone which resolved his wheezing and COPD exacerbation. He did receive 5 days of increased torsemide dosing which did resolve his excess pulmonary edema and heart failure exacerbation. The patient did note some hematuria, though noted that he has had this in the past and it was only present for 1 day. I will also note that according to past records, the patient has had hematuria in almost every urinalysis since 2013. He does follow with an outpatient urologist and has had the stent replaced within the last year. Ultimately, there was some difficulty obtaining the Trilogy machine and authorization, and the machine was not delivered to the hospital until 05/23/18. It was felt as though the patient could not be discharged to home without the Trilogy machine due to the concern for his chronic hypoxic respiratory failure and potential for another exacerbation. The patient did use the machine overnight. I spoke with Respiratory Therapy this morning on the day of discharge, and they report that the patient tolerated the Trilogy machine well overnight. There were no difficulties noted; however, when the patient was taken off the Trilogy machine and placed on room air, he did desaturate to 84%. He has required 2 L of oxygen to maintain saturations between 88% and 92%. The patient reports that he has required daytime oxygen in the past and does typically aim for daytime oxygen saturations of 88% to 92% due to his COPD and CO2 retention. He is comfortable going home with oxygen during the day. He does express concerns about his home environment due to mold exposure and has been in touch with his landlord and appropriate authorities regarding resolving the mold issue. Regarding his CHF, the patient reports that he does typically adjust his torsemide dosing based on his amount of edema. He reports taking anywhere from 20 to 60 mg of torsemide daily and has been doing so for quite some time. He also reports that he adjusts his potassium dosing and takes 20 mEq of potassium for every 20 mg of torsemide that he takes. He is comfortable managing his medications this way going forward. As of today, the patient's lung sounds are diminished though clear. He is saturating in the low 90s on 2 L nasal cannula. He does have an occasional hacking cough, and he reports feeling as though he has a cold. He has no sputum production or wheezing. He denies any shortness of breath or chest pain. There is minimal edema in bilateral lower extremities. Mr. Shafer is stable for discharge today. Vital signs are as follows: Temperature 97.0, heart rate 75, respiratory rate 18, oxygen saturation 92% on 2 L nasal cannula, blood pressure 139/72. DISCHARGE MEDICATIONS: Continued home medications: 1. Albuterol MDI 2 puffs q.4 hours p.r.n. shortness of breath or wheezing. 2. Aspirin 81 mg p.o. daily. 3. Benadryl 25 mg p.o. q.6 hours p.r.n. allergy symptoms. 4. Docusate 100 mg p.o. b.i.d. p.r.n. constipation. 5. Metoprolol 12.5 mg p.o. b.i.d. 6. Xarelto 20 mg p.o. daily. 7. Nitro 0.4 mg sublingual q.5 minutes p.r.n. chest pain. 8. Torsemide 20 to 60 mg p.o. daily. 9. Potassium chloride 20 to 60 mEq p.o. daily. Discontinued medication: Prednisone. DISCHARGE PLAN: Mr. Shafer will be discharged home. ACTIVITY: As tolerated. DIET: Should be heart healthy. PLAN: The patient has completed a course of prednisone here and does not need to take any further prednisone. He did have prednisone listed on his home medication list as a p.r.n. medication when he came in, though I do not think that he needs any further prednisone at this time. He can continue with other usual medications as I mentioned above. The patient reports taking 10 to 60 mg of torsemide daily depending on the severity of his edema. He additionally take 20 to 60 mEq of potassium. He takes 20 mEq of potassium for every 20 mg of torsemide. He reports that he has been doing this for quite some time and is comfortable titrating his medications this way. Otherwise, there are no new prescription. The patient has been given a Trilogy machine. He will need to use this at night as directed. He should additionally be using 2 L of oxygen during the day at all times. He does have a pulse oximeter and is aware that he should keep his oxygen saturation between 88% and 92%. He again is comfortable managing his oxygen this way. He will need to follow up with his primary care provider in 4 to 7 days. I would also recommend that he follow up with his urologist due to his continued concerns for hematuria. The patient has been instructed to return to the emergency room or nearest hospital for any worsening of symptoms, shortness of breath, lightheadedness, dizziness, chest discomfort, high fever, chills, night sweats, loss of consciousness, or any other worrisome signs or symptoms. This is a summarized report of a complex medical history and hospital stay. For further details, please see the entire medical record. TIME SPENT: Approximately 50 minutes was spent on this discharge. DEMETRICE LOPEZ NP [id number]/[facility] #: [id number] KIET
== END 2018-05-24 13:40 | disposition home or self-care (01) | DRG 133 ==
LOC: ED 10:13 → MED 13:44 → OBSVTOIN 05-10 16:00
PROVIDERS: ADMIT Internal Medicine; ATTEND Internal Medicine
DX: J96.21 Acute and chronic respiratory failure with hypoxia (principal); I50.33 Acute on chronic diastolic (congestive) heart failure; R45.851 Suicidal ideations; J44.1 Chronic obstructive pulmonary disease with (acute) exacerbation; E66.2 Morbid (severe) obesity with alveolar hypoventilation; Z68.44 Body mass index [BMI] 60.0-69.9, adult; I49.5 Sick sinus syndrome; Z99.81 Dependence on supplemental oxygen; I48.91 Unspecified atrial fibrillation; S81.801A Unspecified open wound, right lower leg, initial encounter; S81.802A Unspecified open wound, left lower leg, initial encounter; R31.9 Hematuria, unspecified; I89.0 Lymphedema, not elsewhere classified; F43.24 Adjustment disorder with disturbance of conduct; J96.22 Acute and chronic respiratory failure with hypercapnia; H10.9 Unspecified conjunctivitis; A49.02 Methicillin resistant Staphylococcus aureus infection, unspecified site; X58.XXXA Exposure to other specified factors, initial encounter; Z62.810 Personal history of physical and sexual abuse in childhood; Z86.718 Personal history of other venous thrombosis and embolism; Z86.711 Personal history of pulmonary embolism; Z79.01 Long term (current) use of anticoagulants; Z95.0 Presence of cardiac pacemaker; Z79.82 Long term (current) use of aspirin; Z79.51 Long term (current) use of inhaled steroids; Z79.52 Long term (current) use of systemic steroids; Z79.899 Other long term (current) drug therapy; Z88.1 Allergy status to other antibiotic agents; Z91.030 Bee allergy status; Z91.018 Allergy to other foods; Z83.3 Family history of diabetes mellitus; Z80.1 Family history of malignant neoplasm of trachea, bronchus and lung; Y92.9 Unspecified place or not applicable; Z77.120 Contact with and (suspected) exposure to mold (toxic); Z89.422 Acquired absence of other left toe(s); Z89.421 Acquired absence of other right toe(s)
CPT/HCPCS: 36415; 71045; 80048; 80053; 80202; 81003; 81015; 82565; 82803; 83605; 83735; 83880; 84484; 84520; 85025; 85610; 85730; 87070; 87077; 87086; 87186; 87205; 87640; 87641; 93005; 93306; 94640; 94660; 99284; A9270-GY; C8929; G0378; J1940; J2930; J3370; J7512

== ENCOUNTER 2018-05-29 11:37 | Inpatient (IN) | payer MEDICAID ==
[2018-05-29] MEDS ORDERED: methylPREDNISolone 125 MG* 2 ML VIAL IV ONE (11:47)
[2018-05-29] MEDS ORDERED: Albuterol/Ipratropium NEB.SOL* Albuterol 2.5 MG/Ipratropium 0.5 MG 3 ML INH ONE (11:47)
--- NOTE | 2018-05-29 11:53 | ED ---
HPI Chest Pain - HPI Summary HPI Summary: This patient is a 62 year old M brought in by ambulance to [facility] with a chief complaint of increased SOB for the past week worsening today with mid-sternal chest tightness and pain occurring during transport to the hospital. Patient given ASA 325mg and Nitro without relief. EMS reports SaO2 high 80s to low 90s on 3L NC at home that improved to 97% with 4L with mask.Chest pain rated 4/10 upon triage. Patient states current SOB is similar to previous pulmonary embolism. Patient additionally reports lower extremities are darker than usual with increased discharge. PMHx includes, but not limited to, CHF, CAD, DM , DVT, Pulmonary Embolism, COPD, and kidney failure. Patient was discharged from [facility] two days ago with a dx of COPD exacerbation. - History of Current Complaint Time Seen by Provider: 05/29/18 11:43 Hx Obtained From: Patient, EMS Onset/Duration: Started Weeks Ago, Still Present, Worse Since - today Timing: Constant Pain Intensity: 4 Pain Scale Used: 0-10 Numeric Chest Pain Location: Mid Sternal Chest Pain Radiates: No Character: Tightness Alleviating Factor(s): Nothing Associated Signs and Symptoms: Positive: Shortness of Breath, Calf Pain/Swelling , Edema Related History: Similar Episode/Dx as: - PE - Additional Pertinent History Primary Care Physician: DIPESH - Allergy/Home Medications Allergies/Adverse Reactions: Allergies Allergy/AdvReac Type Severity Reaction Status Date / Time clindamycin Allergy Intermediate Pruritus, Verified 05/09/18 10:29 Flushing of Skin apple Allergy Unknown Verified 05/09/18 10:29 Reaction Details bee venom protein (honey bee) Allergy Anaphylatic Verified 05/09/18 10:29 Shock walnut Allergy Anaphylatic Verified 05/09/18 10:29 Shock PMH/Surg Hx/FS Hx/Imm Hx Endocrine/Hematology History: Reports: Hx Anticoagulant Therapy - xarelto, Hx Diabetes, Hx Anemia, Other Endocrine/Hematological Disorders - hypoglycemia Denies: Hx Systemic Lupus Erythematosus Cardiovascular History: Reports: Hx Congestive Heart Failure, Hx Coronary Artery Disease, Hx Deep Vein Thrombosis, Hx Embolism - pulmonary embolism, takes xarelto, Hx Hypercholesterolemia, Hx Hypertension, Hx Pacemaker/ICD, Hx Peripheral Vascular Disease - SSS, Hx Syncope, Other Cardiovascular Problems/ Disorders - cardiac cath Respiratory History: Reports: Hx Chronic Obstructive Pulmonary Disease (COPD) - on 2L home O2, Hx Pneumonia, Hx Pulmonary Embolism, Hx Seasonal Allergies, Hx Sleep Apnea, Other Respiratory Problems/Disorders - SLEEP APNEA, ON 2 L O2 @ NIGHT, obesity hypoventilation Denies: Hx Asthma, Hx Bronchopulmonary Dysplasia, Hx Chronic Bronchitis, Hx Cystic Fibrosis, Hx Lung Cancer, Hx Pleural Effusion, Hx Pulmonary Edema GI History: Reports: Hx Gastrointestinal Bleed, Hx Hiatal Hernia, Other GI Disorders - umbilical hernia, stool softener at home, constipation Denies: Hx Cirrhosis, Hx Crohn's Disease, Hx Diverticulosis, Hx Gall Bladder Disease, Hx Gastroesophageal Reflux Disease, Hx Irritable Bowel, Hx Jaundice, Hx Obstructive Bowel, Hx Ileostomy, Hx Pyloric Stenosis, Hx Ulcer History: Reports: Hx Acute Renal Failure, Hx Chronic Renal Failure, Hx Kidney Stones, Hx Renal Disease - 3 episodes of renal failure Denies: Hx Benign Prostatic Hyperplasia, Hx Dialysis, Hx Kidney Infection, Other Problems/Disorders Musculoskeletal History: Reports: Hx Arthritis, Hx Back Problems, Other Musculoskeletal History - bilateral metatarsal amputation Denies: Hx Rheumatoid Arthritis, Hx Bursitis, Hx Congenital Bone Abnormalities Sensory History: Reports: Other Sensory Impairments - Neuropathy in feet Denies: Hx Contacts or Glasses, Hx Deafness, Hx Hearing Aid Opthamlomology History: Reports: Other Sensory Impairments - Neuropathy in feet Denies: Hx Contacts or Glasses Neurological History: Reports: Hx Headaches, Other Neuro Impairments/Disorders - frequent syncope, pt states possible stroke in past Psychiatric History: Reports: Hx Depression Denies: Hx of Violent Episodes Against Others - Cancer History Hx Chemotherapy: No - Surgical History Surgery Procedure, Year, and Place: Bilateral metatarsal amputations. Pacemaker. Surgical ureterolith extraction Hx Anesthesia Reactions: No - Immunization History Date of Tetanus Vaccine: PT STATES UNSURE Date of Influenza Vaccine: NONE Infectious Disease History: Reports: Hx of Known/Suspected MRSA - Family History Known Family History: Positive: Diabetes Negative: Other - denies FHx of depression - Social History Alcohol Use: None Hx Substance Use: Yes - Narcotics Substance Use Type: Reports: Other Substance Use Comment - Amount & Last Used: chronic narcotic use Hx Tobacco Use: No Smoking Status (MU): Never Smoked Tobacco Have You Smoked in the Last Year: No Review of Systems Positive: Chest Pain Positive: Shortness Of Breath Positive: Edema - bilaterally Positive: Other - "Darkness" of RLE All Other Systems Reviewed And Are Negative: Yes Physical Exam - Summary Physical Exam Summary: VITAL SIGNS: Reviewed. SaO2 98% 4L with mask. GENERAL: Patient is an obese man who is in respiratory distress but is able to speak in full sentences. HEAD AND FACE: No signs of trauma. No ecchymosis, hematomas or skull depressions. No sinus tenderness. EYES: PERRLA, EOMI x 2, No injected conjunctiva, no nystagmus. EARS: Hearing grossly intact. Ear canals and tympanic membranes are within normal limits. MOUTH: Oropharynx within normal limits. NECK: Supple, trachea is midline, no adenopathy, no JVD, no carotid bruit, no c- spine tenderness, neck with full ROM. CHEST: Symmetric, no tenderness at palpation LUNGS: Bilateral wheezing and decreased breath sounds CVS: Regular rate and rhythm, S1 and S2 present, no murmurs or gallops appreciated. ABDOMEN: Soft, non-tender. No signs of distention. No rebound no guarding, and no masses palpated. Bowel sounds are decreased. EXTREMITIES: bilateral lower extremity edema, amputation of all the toes bilaterally NEURO: Alert and oriented x 3. No acute neurological deficits. Speech is normal and follows commands. SKIN: Dry and warm, cellulitis up to the knees with black spots and purulent discharge from both legs Triage Information Reviewed: Yes Vital Signs Reviewed: Yes Diagnostics - Laboratory Result Diagrams: 05/30/18 05:10 05/30/18 05:10 Lab Statement: Any lab studies that have been ordered have been reviewed, and results considered in the medical decision making process. - Radiology CXR Radiology Interpretation Completed By: Radiologist Summary of Radiographic Findings: CARDIOMEGALY WITH PULMONARY INTERSTITIAL EDEMA. ED Physician has reviewed this report. - EKG 1215 Cardiac Rate: NL - 96 BPM EKG Rhythm: Sinus Rhythm EKG Comparison: No Significant Change - from EKG 05/09/18 Summary of EKG Findings: No ST elevations. Chest Pain Course/Dx - Course Assessment/Plan: This patient is a 62-year-old male who presents to the emergency room via ambulance with chief complaint of having shortness of breath and a COPD exacerbation. As per EMS the patient was saturated in the upper 80s and low 90s on 3L of oxygen. He also reports that he was discharged from the hospital 2 days ago with a diagnosis of COPD exacerbation. Patient is with mild respiratory distress however he is able to speak in full sentences. In the ED course the patient was placed in a clinical research monitor, IV access was obtained, visual was given Solu-Medrol and another DuoNeb. Patient was given 1 DuoNeb and route. Patient has past medical history for DVT and PE and the patient is on Xarelto. He also has history of COPD, hypoventilation secondary to morbid obesity, obstructive sleep apnea, atrial fibrillation, sick sinus syndrome status post pacemaker, chronic diastolic heart failure, chronic lower extremity edema, nephrolithiasis, and MRSA cellulitis. Blood work without any significant abnormality, except for creatinine 1.68 which is his baseline. CRP is 86, BNP and 134, and influenza it is possibly. Chest x-ray impression no acute pathology. ABG is pH of 7.27, PCO2 is 68, PO2 is 92, O2 sat is 97.6. Since the PCO2 is elevated the patient was placed in the BiPAP machine. Patient also was given Bactrim for the bilateral lower extremity edema since the patient is allergic to clindamycin. At this point I discussed my physical exam, findings and test results with Dr. López from the hospital services accepting the patient for admission. The patient is hemodynamically stable alert and oriented 3. - Diagnoses Provider Diagnoses: COPD exacerbation, Bilateral lower extremity edema, Hypercapnia Discharge - Sign-Out/Discharge Documenting (check all that apply): Patient Departure - admit - Discharge Plan Condition: Stable Disposition: ADMITTED TO [facility] - Billing Disposition and Condition Condition: STABLE Disposition: Admitted to [facility] - Attestation Statements Document Initiated by You: Yes Documenting Scribe: Jaylene Johnson Provider For Whom You is Documenting (Include Credential): Javier Pena MD Scribe Attestation: IJaylene, scribed for Javier Pena MD on 05/30/18 at 0734. Scribe Documentation Reviewed: Yes Provider Attestation: The documentation as recorded by the Jaylene parham accurately reflects the service I personally performed and the decisions made by me, Javier Pena MD Status of Scribe Document: Viewed
[2018-05-29 12:46] LABS: ABS Basophils 0 10^3/ul (0-0.2); ABS Eosinophils 0.1 10^3/ul (0-0.6); ABS Lymphocytes 0.4 10^3/ul (1.0-4.8); ABS Monocytes 0.3 10^3/ul (0-0.8); ABS Neutrophils 5.9 10^3/ul (1.5-7.7); ABS Nucleated RBC 0 10^3/ul; Eosinophil % 0.8 %; Hematocrit 47 % (36-46); Hemoglobin 14.9 g/dL (14.0-18.0); Mean Corpuscular HGB Conc 32 g/dL (31-36); Mean Corpuscular Hemoglobin 28 pg (27-31); Mean Corpuscular Volume 88 fL (80-94); Mean Platelet Volume 9.7 fL (7.4-10.4); Nucleated Red Blood Cells % 0.1; Platelet Count 142 10^3/uL (150-450); Red Blood Count 5.39 10^6 /uL (4.18-5.48); Red Cell Distribution Width 17 % (10.5-15); White Blood Count 6.7 10^3/uL (3.5-10.8)
[2018-05-29 13:04] LABS: Albumin 3.5 g/dL (3.2-5.2); BUN/Creatinine Ratio 17.4 (8-20); C Reactive Protein 230.66 mg/L (<8.01); Calcium 9.3 mg/dL (8.6-10.3); EGFR Non-African American 90.1 (>60); Globulin 3.5 g/dL (2-4); Potassium 3.9 mmol/L (3.5-5.0); Total Bilirubin 0.8 mg/dL (0.2-1.0)
[2018-05-29 13:06] LABS: Troponin I 0.02 ng/mL (<0.04)
[2018-05-29 13:08] LABS: CKMB ng/mL 3.8 ng/mL (0.6-6.3)
[2018-05-29] MEDS ORDERED: Sulfamethox/Trimethoprim DS 800/160* TAB PO ONE (13:44)
[2018-05-29] MEDS ORDERED: Ondansetron INJ* 2 MG/ML VIAL IV ONE (14:20)
[2018-05-29] MEDS ORDERED: Vancomycin(*) 1,000 MG in NS 0.9% 250 ML* 250 ML IVPB ONE (14:41)
[2018-05-29] MEDS ORDERED: Furosemide IV* 10 MG/ML VIAL (40 MG) IV ONE (14:43)
[2018-05-29] MEDS ORDERED: Vancomycin(*) 2,000 MG in NS 0.9% 500 ML* 500 ML IVPB ONE (14:51)
[2018-05-29] MEDS ORDERED: Albuterol HFA INHALER* 8 gm MDI INH PRN (14:52)
[2018-05-29] MEDS ORDERED: Docusate CAP* 100 MG PO PRN (14:52)
[2018-05-29] MEDS ORDERED: diPHENhydraMINE PO* 25 MG PO PRN (14:52)
[2018-05-29] MEDS ORDERED: Ondansetron INJ* 2 MG/ML VIAL IV PRN (14:58)
[2018-05-29] MEDS ORDERED: Iodixanol* (CONTRAST) 320 MG/ML 100 ML SDV IV ONE ×2 (15:13→22:38)
[2018-05-29] MEDS ORDERED: NS 0.9% 250 ML* 250 ML ONE ×2 (16:19→16:20)
[2018-05-29] MEDS ORDERED: NS 0.9% 500 ML* 500 ML ONE (16:19)
[2018-05-29 17:41] LABS: Urine Appearance Clear; Urine Bacteria Absent (Absent); Urine Bilirubin Negative (Negative); Urine Blood 2+ (Negative); Urine Color Yellow; Urine Glucose Negative (Negative); Urine Ketones Negative (Negative); Urine Nitrite Negative (Negative); Urine Protein Negative (Negative); Urine Red Blood Cell 1+(3-5/hpf) (Absent); Urine Specific Gravity 1.017 (1.010-1.030); Urine Squamous Epithelial Cell Present (Absent); Urine Urobilinogen Negative (Negative); Urine White Blood Cell Trace(0-5/hpf) (Absent)
[2018-05-29] MEDS: Cefepime 1 GM in Dextrose(*) 1 GM/50 ML BAG IV SCH (18:06)
[2018-05-29 18:30] LABS: Influenza A Molecular NEGATIVE (Negative); Influenza B Molecular NEGATIVE (Negative)
--- NOTE | 2018-05-29 19:34 | HP ---
HISTORY AND PHYSICAL: DATE OF ADMISSION: 05/29/18 PRIMARY CARE PROVIDER: Dr. Javier Gilliland. HEALTHCARE PROXY: J Luis Shafer, who is his brother. CODE STATUS: Full. CHIEF COMPLAINT: Chest pain and shortness of breath. SOURCE OF INFORMATION: HPI is obtained from review of chart as well as the patient who is an adequate historian. HISTORY OF PRESENT ILLNESS: A 62-year-old male with past medical history of DVT and pulmonary embolus, on chronic anticoagulation with Xarelto; OHS with BiPAP use at home nightly; history of AFib, on Xarelto, and sick sinus syndrome status post pacemaker placement; heart failure with preserved ejection fraction ; bilateral lower extremity lymphedema with bilateral metatarsal amputations; and COPD who lives at home at baseline with aide services who comes in with shortness of breath and chest pain. Of note, the patient was recently admitted to the hospital and discharged on 05/24/18 after an extended hospital stay also for acute on chronic respiratory failure and cellulitis. He returned to home and was having his aide come and do wound care on his lower extremities and reports he was compliant with his home medications, but became increasingly shortness of breath over the last 2 days and then began to have chest pain. Also states that, his legs have become more weepy and painful in the last 48 hours and thus, he decided to present to the emergency room. EMERGENCY ROOM COURSE: In the emergency room, he is febrile to 100.6 in the emergency room. His blood pressure is 119/67, his heart rate 94, he is satting 92% on 6 L and then he is subsequently placed on BiPAP after an ABG revealed pH of 7.27 and pCO2 of 68, which is half of his baseline. A CMP was done, which was unremarkable. CRP was completed, which was elevated at 230. His LFTs were fine. His BNP is 76. A CBC was done that is unremarkable other than thrombocytopenia to 140, which is consistent with his baseline. Chest x-ray was completed, which showed bilateral pulmonary edema and EKG was done, which showed sinus rhythm with no evidence of acute ischemia. The hospitalist team was asked to evaluate this patient for concern for cellulitis and CHF exacerbation. PAST MEDICAL HISTORY: 1. DVT and PE, on chronic anticoagulation. 2. OHS, on BiPAP. 3. AFib, on anticoagulation. 4. Sick sinus syndrome status post pacemaker. 5. Heart failure with preserved ejection fraction and last ejection fraction is 55% in 2019. 6. Bilateral lymphedema. 7. COPD. 8. Morbid obesity with weight of 203. PAST SURGICAL HISTORY: Consistent for bilateral metatarsal amputations, pacemaker placement, and lithotripsy. MEDICATIONS: Prior to admission are: 1. Albuterol 2 puffs inhaled q.4 hours p.r.n. for shortness of breath. 2. Aspirin 81 mg p.o. daily. 3. Diphenhydramine 25 mg p.o. q.6 hours p.r.n. for itching. 4. Docusate 100 mg p.o. b.i.d. for constipation. 5. Metoprolol tartrate 12.5 mg p.o. b.i.d. 6. Nitroglycerin 0.4 mg sublingual q.5 minutes p.r.n. for chest pain. 7. Potassium 10 mEq p.o. daily. 8. Rivaroxaban 20 mg p.o. daily. 9. Torsemide 20 to 60 mg p.o. daily on a weight based scale p.r.n. for edema. ALLERGIES: He is allergic to CLINDAMYCIN, APPLES, PEAR, BEES, and WALNUTS. SOCIAL HISTORY: Lives at home alone with supportive aide services. Tobacco, he is a lifetime nontobacco user. Alcohol, he denies current alcohol use and illicit substances, he denies. FAMILY HISTORY: Mother had diabetes and dementia and is at the age of 86 and father has a history of lung cancer, at age of 87. REVIEW OF SYSTEMS: The patient does endorse malaise, but denies subjective fevers or chills. HEENT: Denies vision changes, headache, difficulty swallowing. Cardiovascular: He does endorse chest pain that is substernal in nature and does not radiate. He reported after BiPAP that his chest pain subsided. He denies palpitations or orthopnea. Respiratory: He does endorse shortness of breath. Denies cough. Denies pleuritic chest pain after BiPAP is placed. GI: He did have 1 episode of emesis in the hospital, but denies current nausea, diarrhea, or abdominal pain. : Denies dysuria, hematuria. Musculoskeletal: Does deny bilateral lower extremity pain, but no new weakness. Skin: Reports increasing lower extremity redness and pain in the last 48 hours, but otherwise no new rashes or lesions. Neurological: Denies focal weakness or numbness. Psychiatric: Denies anxiety or depression. Endocrine: Denies polyuria, polydipsia. Heme: Denies easy bruising or bleeding. PHYSICAL EXAMINATION GENERAL APPEARANCE: The patient is morbidly obese patient, sitting in bed with BiPAP on, awake, alert, and responsive x3 and speaking through BiPAP. VITAL SIGNS: At time of physical exam, the patient is 146/78; heart rate, sinus , 98; respiratory rate in the 20s on BiPAP and satting 91% on BiPAP with oxygen. He is afebrile at the time of my exam. HEENT: Normocephalic/atraumatic. Pupils equal and reactive. Extraocular muscles intact. Oropharynx is dry with BiPAP on with fair dentition. NECK: Supple with no cervical or supraclavicular lymphadenopathy. RESPIRATORY: He has bilateral crackles in both lungs to mid lung and scant expiratory wheeze. No rhonchi. No focal areas of diminished lung sounds. CARDIAC: He has regular rate and rhythm with 2/6 systolic ejection murmur heard in the precordial leads. GI: He has obese abdomen, soft, nontender, nondistended with normoactive bowel sounds in all 4 quadrants. SKIN: In bilateral lower extremities below the knee, he has diffuse erythema from foot to prison up the reynaga. He has numerous open wounds with serosanguineous and scant purulent drainage. He has mild warmth on right leg greater than left leg and tenderness to palpation throughout the reynaga and calf area. He has ulcer with diffuse darkly colored patches consistent with possible hematoma or perhaps even necrotic looking areas underlying his lower extremity wounds. EXTREMITIES: He moves all 4 extremities spontaneously. He is status post bilateral metatarsal amputations. He has palpable pulses. DP and TP in bilateral lower extremities. NEURO/PSYCH: His cranial nerves II through XII are intact. He has no focal neurologic deficits. He is A and O x3. DIAGNOSTIC STUDIES/LAB DATA: CBC showed white blood cell count of 6.7, hemoglobin of 14.9, hematocrit of 47, platelets of 142. CMP, sodium of 138, potassium 3.9, chloride 102, carbon dioxide 30, BUN 15, creatinine 0.86, glucose 163. Lactic acid 0.5. AST 17, ALT 10, alk phos is 30. CRP is elevated at 230. Total CK is 194. Troponin 0.02. No urine was collected. Micro: Urine, blood and wound cultures were taken. He has a history of MRSA positive skin and soft tissue. Imaging: Chest x-ray was done, which shows cardiomegaly with pulmonary interstitial edema. EKG showed sinus rhythm with left anterior fascicular block with abnormal R wave progression that is not changed and no evidence of acute ischemia. EKG and radiology were reviewed by myself. ASSESSMENT AND PLAN BY PROBLEM: A 62-year-old male with past medical history of deep vein thrombosis and pulmonary embolism, on chronic anticoagulation; obesity hypoventilation syndrome, on q.h.s. BiPAP; heart failure with preserved ejection fraction with EF of 55% in 2019; sick sinus syndrome status post pacemaker placement; paroxysmal atrial fibrillation, also on anticoagulation; bilateral lymphedema; and chronic obstructive pulmonary disease, presents with hypoxemic hypercarbic resp failure found to be volume overloaded and with sepsis likely secondary to a skin and soft tissue infection. PROBLEM BY SYSTEM IS FOLLOWS: Infectious disease: 1. Sepsis (tachycardia, tachypneic, febrile to 100.6). This is likely from a skin and soft tissue infection. --He has bilateral lower extremity edema in the setting of known lymphedema, no evidence of end-organ damage. CRP is elevated to 200. Given new necrotic appearing ulcers in bilateral lower extremities, we will obtain limited CT scans of lower extremities to look for edema in muscle beds or air. He does have some pain, although not out of proportion and rule out necrotizing fasciitis. Continue to cover with vancomycin and cefepime for sepsis and likely narrow to vancomycin for known history of MRSA cellulitis unless other compelling reasons. Cardiology: 1. Acute exacerbation of heart failure with preserved ejection fraction. --He has acute on chronic heart failure exacerbation. He has evidence of pulmonary edema and is requiring continuous BiPAP necessitating admission to the ICU. We will give Lasix 40 mg IV x1 in the emergency room and reassess. 2. Atrial fibrillation and sick sinus syndrome status post pacemaker. --We will continue on rate control and metoprolol 12.5 mg b.i.d. and continue to watch pressures closely. Pulm: 1. Hypercarbic, hypoxemic respiratory failure. --This is secondary to congestive heart failure exacerbation, less likely chronic obstructive pulmonary disease exacerbation. We did discuss the possibility of pulmonary embolus. Though he has been on Xarelto, studies for Xarelto and weight of 203kg are not fully validated and we would consider monitoring anti-factor Xa levels to determine if anticoagulation is adequate in this patient. Also consider if not improving in terms of hypoxemia, to repeat CTA and identify if pulmonary embolus is present. We will also continue continuous BiPAP at this time. He received 125 mg of Solu- Medrol in the emergency room. We are going to hold on further steroids at this time. 2. Obesity hypoventilation syndrome, on BiPAP. We will continue q.h.s. BiPAP once continuous BiPAP is discontinued and continue to monitor. Heme: 1. Thrombocytopenia. This is most likely in the setting of infection. We will continue to monitor. GI: 1. Vomiting x1. The patient vomited once in the emergency room, unclear source. His LFTs are normal. Continue supportive care. He has no evidence of ileus or small bowel obstruction. Endo: 1. He has mild hyperglycemia. We will check for A1c and continue point-of- care glucose and add sliding scale insulin if needed. 2. The patient is morbidly obese. We will continue to address his morbid obesity in the setting of his chronic illnesses. Renal: He has no active issues. Neuro: He has no active issues. Hospital issues: 1. DVT prophylaxis. We will continue Xarelto, although if concern for Xarelto failure, we will change as needed. 2. FEN. We will maintain heart healthy diet. 3. Lines and tubes. He has peripheral IV and currently, no need for Chris at this time and no need for advance access. 4. Code status is full. Plan of care is discussed with the patient and his family who agree with admission. Initially, we will admit the patient to intensive care unit for need of continuous BiPAP and close monitoring in the setting of sepsis and likely anticipate transfer when burden of nursing care is less. TIME SPENT: 45 minutes was spent in the planning of this admission and H & P with over half of that spent directly at the bedside providing direct patient care. [id number]/[facility] #: [id number] KIET
--- NOTE | 2018-05-29 20:47 | CONS ---
CC: Dr. Prasanna Sanchez; Dr. Gilliland CONSULTATION REPORT: DATE OF CONSULT: 05/29/18 HISTORY OF PRESENT ILLNESS: I have been asked by Dr. López to provide consultation regarding lower ex tremity infection and the possible need for debridement. The patient is a 62-year-old male who was r ecently here in the hospital with acute respiratory failure and heart failure and sleep apnea, who yeboah d lymphedema and some cellulitis of his leg at that time. He was discharged home a few days ago and now presents back with increasing problems with his legs. He is currently sedated and will not answe r questions for me. PHYSICAL EXAM: On examination, he is morbidly obese. He is sleeping with a CPAP. His legs are large and edematous. He has bilateral toe amputations. He has cellulitis and dermatitis from below the k nee all the way down to the ankle and to some extent over the malleolus and dorsum of the foot, littl e worse on the right foot than the left foot. It to me has the appearance of dermatitis that is rubens atous and ulcerated in multiple areas with some scabbing and crusting trying to form on the surface. I do not get the sense that there is any necrotic tissue, nor anything that needs debridement. He h as had a CT scan of the lower extremities, which does not reveal any muscle involvement or any air in the tissues or any abscess cavity. IMPRESSION: A 62-year-old male with longstanding vascular disease, heart failure and chronic obstruc tive pulmonary disease with now an edematous infected dermatitis, and I suspect he will need leg elev ation, compression and possibly topical antibiotic creams, but at this point, there is nothing that r equires debridement or surgical intervention, so I will be happy to see him in the future should the need arise. Please call us if we can be of additional assistance. [id number]/[facility] #: [id number]
[2018-05-29] MEDS: Metoprolol Tartrate TAB* 25 MG PO SCH (21:30)
[2018-05-29] MEDS: Rivaroxaban TAB(*) 20 MG TAB PO SCH (21:31)
[2018-05-29] MEDS ORDERED: Succinylcholine* 20 MG/ML 10 ML VIAL ONE (23:39)
--- NOTE | 2018-05-29 23:41 | PN ---
Hospitalist Progress Note Date of Service: 05/29/18 HOSPITALIST ADDENDUM Patient is obtunded. No significant response to BiPAP. Repeat ABG still with significant respiratory acidosis and CO2 90. Laboratory Tests 05/29/18 22:18 ABG pH 7.21 L ABG pCO2 90 H* ABG pO2 128 H ABG HCO3 28.7 ABG O2 Saturation 99.7 H ABG Base Excess 4.9 H Labs reviewed, awaiting CTA chest, but with his clinical picture he requires intubation. D/w Hospital Mortician (Dr Hercules) who is in agreement. Contacted patient next of kin (brother J Luis Shafer) who was updated about patient's condition and is in agreement. Patient woke up before procedure, but with significant respiratory acidosis, not able to make decisions. Received 20mg Etomidate and 200mg Succinylcholine, intubated by Dr Regalado with glidoscope. ETT 8, 24 at the lip. OG and Chris placed. A/P: - Acute on chronic hypercabic respiratory failure, failed rescue BiPAP, now intubated. - Check CxR. - Repeat ABG in 1 h. - Continue current antibiotics.
[2018-05-29] MEDS ORDERED: Etomidate* 2 MG/ML 20 ML VIAL (40 MG) ONE (23:55)
[2018-05-29] MEDS ORDERED: Propofol* 200 ML ONE (23:56)
[2018-05-30] MEDS ORDERED: Vancomycin(*) 1,000 MG in NS 0.9% 250 ML* 250 ML IVPB SCH ×2
[2018-05-30] MEDS: Propofol* 100 ML IV SCH ×8 (00:47→16:31)
[2018-05-30] MEDS ORDERED: Vancomycin(*) 1,000 MG - ED ONCE IVPB ONE ×2 (01:00)
[2018-05-30] MEDS ORDERED: Vancomycin per Pharmacy* NOTE FOLLOW UP PRN (01:01)
[2018-05-30] MEDS: Cefepime 1 GM in Dextrose(*) 1 GM/50 ML BAG IV SCH (03:00)
[2018-05-30] MEDS ORDERED: DOXYcycline IV* 100 MG in NS 0.9% 250 ML* 250 ML IVPB SCH (04:00)
[2018-05-30] MEDS ORDERED: Lactated Ringers 1000 ML Bag* 1,000 ML IV SCH ×2 (05:00)
[2018-05-30 05:19] LABS: ABS Basophils 0 10^3/ul (0-0.2); ABS Eosinophils 0 10^3/ul (0-0.6); ABS Lymphocytes 0.4 10^3/ul (1.0-4.8); ABS Monocytes 0.4 10^3/ul (0-0.8); ABS Neutrophils 5.6 10^3/ul (1.5-7.7); ABS Nucleated RBC 0 10^3/ul; Eosinophil % 0 %; Hematocrit 44 % (36-46); Hemoglobin 13.5 g/dL (14.0-18.0); Lymphocyte % 5.9 %; Mean Corpuscular HGB Conc 31 g/dL (31-36); Mean Corpuscular Hemoglobin 28 pg (27-31); Mean Corpuscular Volume 89 fL (80-94); Mean Platelet Volume 9.8 fL (7.4-10.4); Nucleated Red Blood Cells % 0.1; Platelet Count 159 10^3/uL (150-450); Red Blood Count 4.91 10^6 /uL (4.18-5.48); Red Cell Distribution Width 17 % (10.5-15); White Blood Count 6.4 10^3/uL (3.5-10.8)
[2018-05-30 05:36] LABS: Albumin 3.1 g/dL (3.2-5.2); Albumin/Globulin Ratio 0.9 (1-3); BUN/Creatinine Ratio 23.6 (8-20); Calcium 8.6 mg/dL (8.6-10.3); EGFR African American 85.7 (>60); EGFR Non-African American 70.8 (>60); Globulin 3.3 g/dL (2-4); Potassium 4.1 mmol/L (3.5-5.0); Total Bilirubin 0.7 mg/dL (0.2-1.0); Total Protein 6.4 g/dL (6.4-8.9)
[2018-05-30] MEDS: Metoprolol Tartrate TAB* 25 MG PO SCH (07:54)
[2018-05-30] MEDS: Vancomycin(*) 1,000 MG in NS 0.9% 250 ML* 250 ML IVPB SCH ×2 (08:36→16:04)
[2018-05-30] MEDS: Aspirin EC TAB* 81 MG TAB.EC PO SCH (08:37)
[2018-05-30] MEDS: Potassium Chlor TAB* 10 MEQ TAB.ER PO SCH (08:37)
[2018-05-30] MEDS ORDERED: ZOSYN 3.375 GM x ONE DOSE over 30 miuntes IVPB ×2 (11:00)
[2018-05-30] MEDS ORDERED: Zosyn per Pharmacy* NOTE FOLLOW UP PRN (11:36)
[2018-05-30] MEDS ORDERED: Dextrose 50% Syringe 50 ML* 25 GM/50 ML SYRINGE IV PUSH PRN (14:17)
[2018-05-30] MEDS ORDERED: Furosemide IV* 10 MG/ML 2 ML VIAL (20 MG) IV ONE (14:19)
[2018-05-30] MEDS: ZOSYN 3.375 GM Q8H per EXTENDED INFUSION IVPB SCH ×4 (15:45→21:58)
--- NOTE | 2018-05-30 16:59 | HP ---
History of Present Illness - History of Present Illness Reason for Visit: Acute respiratory failure requiring intubation History of Present Illness: 62-year-old male with past medical history of morbid obesity, chronic venous stasis of LE with lymphedema and acute on chronic cellulits, VTE (DVT, PE), AF on chronic anticoagulation with Xarelto, OHS with BiPAP use at home nightly, and sick sinus syndrome status post pacemaker placement, CHF, s/p bilateral metatarsal amputations, and COPD presenting with shortness of breath and chest pain. Of note, the patient was recently admitted to the hospital and discharged on 05/24/18 after an extended hospital stay also for acute on chronic respiratory failure and cellulitis. He returned to home and was having his aide come and do wound care on his lower extremities. In the ED, he was noted to be febrile to 100.6 and saturating 92% on 6 L and then he is subsequently placed on BiPAP for respiratory acidosis with hypercapnea. He was intubated overnight due to increased WOB and hypercapnea. No pressor requirements - Past Medical History Cardiac: AFIB, CHF, Other - SICK SINUS SYNDROME S/P PPM Pulmonary: COPD, Other - JAIDEN Heme/Onc: Other - VTE/DVT/PE Endocrine: Other - obesity Dermatology: Cellulitis - Past Surgical History Past Surgical History: Other - BILATERAL METATARSAL AMPUTATION - Past Family History Family History: Cancer - lung cancer father , DM - mother, Other - mother- dementia, at age 86; father at age 87 - Past Social History Smoke: No Alcohol: None Drugs: None Lives: Alone, Other - WITH AIDE COMING FOR WOUND CARE/DRESSING CHANGES Review of Systems - Review of Systems Other: Unable to access optimally due to patient being on sedation and intubated - Medications/Allergies Allergies/Adverse Reactions: Allergies Allergy/AdvReac Type Severity Reaction Status Date / Time clindamycin Allergy Intermediate Pruritus, Verified 05/09/18 10:29 Flushing of Skin apple Allergy Unknown Verified 05/09/18 10:29 Reaction Details bee venom protein (honey bee) Allergy Anaphylatic Verified 05/09/18 10:29 Shock walnut Allergy Anaphylatic Verified 05/09/18 10:29 Shock Medications: Current Medications Albuterol (Ventolin Hfa Inhaler*) 2 puff INH Q4H PRN PRN Reason: SOB/WHEEZING Aspirin (Aspirin Ec Tab*) 81 mg PO DAILY [facility] Last Admin: 05/30/18 08:37 Dose: 81 mg Dextrose (D50w Syringe 50 Ml*) 12.5 gm IV PUSH .FOR FS < 60 - SS PRN PRN Reason: FS < 60 Diphenhydramine HCl (Benadryl Po*) 25 mg PO Q6H PRN PRN Reason: Allergy Symptoms Docusate Sodium (Colace Cap*) 100 mg PO BID PRN PRN Reason: CONSTIPATION Last Admin: 05/29/18 21:30 Dose: 100 mg Furosemide (Lasix Iv*) 20 mg IV DAILY [facility] Stop: 06/05/18 08:59 Propofol (Diprivan*) 100 mls @ 83.824 mls/hr IV .(Initial Rate) [facility]; Protocol Last Admin: 05/30/18 16:31 Dose: 36 mls/hr Vancomycin HCl 1,000 mg/ (Sodium Chloride) 250 mls @ 166.667 mls/hr IVPB Q8H [facility] Last Admin: 05/30/18 16:04 Dose: 166.667 mls/hr Piperacillin Sod/Tazobactam (Sod 3.375 gm/ Sodium Chloride) 100 mls @ 25 mls/ hr IVPB Q8H [facility] Last Admin: 05/30/18 15:45 Dose: 25 mls/hr Insulin Human Lispro (Humalog*) 0 units SUBCUT FS Q6 ICU [facility]; Protocol Metoprolol Tartrate (Lopressor Tab*) 12.5 mg PO BID [facility] Last Admin: 05/30/18 07:54 Dose: Not Given Nitroglycerin (Nitroglycerin Tab 0.4 Mg*) 0.4 mg SL Q5M PRN PRN Reason: chest pain Ondansetron HCl (Zofran Inj*) 4 mg IV Q6H PRN PRN Reason: NAUSEA Pharmacy Consult (Vancomycin Per Pharmacy*) 1 note FOLLOW UP . PRN PRN Reason: PER PROTOCOL Pharmacy Consult (Zosyn Per Pharmacy*) 1 note FOLLOW UP . PRN PRN Reason: PER PROTOCOL Pharmacy Profile Note (Vancomycin Trough Check) 1 note FOLLOW UP ONCE ONE Stop: 05/31/18 07:31 Potassium Chloride (Klor Con Er Tab*) 10 meq PO DAILY [facility] Last Admin: 05/30/18 08:37 Dose: Not Given Rivaroxaban (Xarelto(*)) 20 mg PO BEDTIME [facility] Last Admin: 05/29/18 21:31 Dose: 20 mg Exam - Exam Vital Signs: Vital Signs (72 hours) 05/29/18 05/29/18 05/29/18 11:47 11:48 12:00 Temperature 100.6 F Pulse Rate 102 101 99 Respiratory 24 27 23 Rate Blood Pressure 122/65 (mmHg) O2 Sat by Pulse 90 88 91 Oximetry 05/29/18 05/29/18 05/29/18 12:18 12:48 13:00 Temperature Pulse Rate 98 93 96 Respiratory 24 26 24 Rate Blood Pressure 139/67 149/70 (mmHg) O2 Sat by Pulse 93 94 92 Oximetry 05/29/18 05/29/18 05/29/18 13:18 13:49 14:00 Temperature Pulse Rate 93 100 94 Respiratory 26 26 25 Rate Blood Pressure 119/67 146/78 (mmHg) O2 Sat by Pulse 94 91 94 Oximetry 05/29/18 05/29/18 05/29/18 14:48 15:00 16:00 Temperature Pulse Rate 94 96 Respiratory 23 23 12 Rate Blood Pressure 152/81 (mmHg) O2 Sat by Pulse 91 91 Oximetry 05/29/18 05/29/18 05/29/18 16:25 16:44 17:00 Temperature 97.1 F 97.3 F Pulse Rate 92 89 Respiratory 19 20 20 Rate Blood Pressure 118/77 145/75 (mmHg) O2 Sat by Pulse 94 94 Oximetry 05/29/18 05/29/18 05/29/18 17:20 17:21 17:30 Temperature Pulse Rate 88 90 90 Respiratory 22 22 24 Rate Blood Pressure 145/75 133/83 (mmHg) O2 Sat by Pulse 94 96 88 Oximetry 05/29/18 05/29/18 05/29/18 17:45 18:00 18:01 Temperature Pulse Rate 95 99 99 Respiratory 22 20 23 Rate Blood Pressure 148/88 145/86 (mmHg) O2 Sat by Pulse 92 97 96 Oximetry 05/29/18 05/29/18 05/29/18 18:04 18:15 18:30 Temperature Pulse Rate 59 101 101 Respiratory 24 22 Rate Blood Pressure 182/89 142/84 153/85 (mmHg) O2 Sat by Pulse 96 97 98 Oximetry 05/29/18 05/29/18 05/29/18 18:35 18:45 19:00 Temperature Pulse Rate 56 99 99 Respiratory 20 24 Rate Blood Pressure 175/86 155/87 135/83 (mmHg) O2 Sat by Pulse 89 98 98 Oximetry 05/29/18 05/29/18 05/29/18 19:01 19:15 19:30 Temperature Pulse Rate 100 104 104 Respiratory 21 22 25 Rate Blood Pressure 146/86 157/93 (mmHg) O2 Sat by Pulse 98 98 98 Oximetry 05/29/18 05/29/18 05/29/18 19:45 20:00 20:01 Temperature 98.7 F Pulse Rate 94 96 96 Respiratory 16 23 21 Rate Blood Pressure 146/95 131/86 (mmHg) O2 Sat by Pulse 98 96 98 Oximetry 05/29/18 05/29/18 05/29/18 20:15 20:30 20:45 Temperature Pulse Rate 96 94 93 Respiratory 21 23 22 Rate Blood Pressure 145/87 148/88 134/80 (mmHg) O2 Sat by Pulse 97 97 96 Oximetry 05/29/18 05/29/18 05/29/18 21:00 21:15 21:21 Temperature Pulse Rate 97 97 61 Respiratory 22 15 18 Rate Blood Pressure 130/77 129/74 (mmHg) O2 Sat by Pulse 95 97 100 Oximetry 05/29/18 05/29/18 05/29/18 21:30 21:45 22:00 Temperature Pulse Rate 91 86 89 Respiratory 22 21 20 Rate Blood Pressure 114/64 125/66 114/62 (mmHg) O2 Sat by Pulse 97 97 91 Oximetry 05/29/18 05/29/18 05/29/18 22:15 22:30 22:34 Temperature Pulse Rate 93 91 91 Respiratory 30 20 19 Rate Blood Pressure 124/77 131/72 (mmHg) O2 Sat by Pulse 95 93 94 Oximetry 05/29/18 05/29/18 05/29/18 22:45 23:47 23:54 Temperature Pulse Rate 93 85 86 Respiratory 22 18 Rate Blood Pressure 134/75 141/98 (mmHg) O2 Sat by Pulse 95 99 99 Oximetry 05/30/18 05/30/18 05/30/18 00:00 00:01 00:15 Temperature Pulse Rate 93 93 91 Respiratory 16 16 20 Rate Blood Pressure 157/98 125/78 (mmHg) O2 Sat by Pulse 91 91 95 Oximetry 05/30/18 05/30/18 05/30/18 00:30 00:45 01:00 Temperature 98.2 F 98.8 F 99.0 F Pulse Rate 82 76 72 Respiratory 13 Rate Blood Pressure 109/68 113/70 91/62 (mmHg) O2 Sat by Pulse 95 95 96 Oximetry 05/30/18 05/30/18 05/30/18 01:01 01:15 01:25 Temperature 99.0 F Pulse Rate 74 72 72 Respiratory Rate Blood Pressure 104/79 104/79 (mmHg) O2 Sat by Pulse 94 96 99 Oximetry 05/30/18 05/30/18 05/30/18 01:30 01:45 01:52 Temperature 98.8 F 98.6 F 98.6 F Pulse Rate 72 65 53 Respiratory Rate Blood Pressure 108/65 84/47 88/50 (mmHg) O2 Sat by Pulse 95 94 93 Oximetry 05/30/18 05/30/18 05/30/18 02:00 02:01 02:10 Temperature 98.4 F 98.4 F Pulse Rate 63 62 Respiratory 20 Rate Blood Pressure 104/56 (mmHg) O2 Sat by Pulse 93 94 Oximetry 05/30/18 05/30/18 05/30/18 02:15 02:30 02:45 Temperature 98.4 F 98.2 F 98.2 F Pulse Rate 63 62 62 Respiratory Rate Blood Pressure 102/57 94/50 92/51 (mmHg) O2 Sat by Pulse 95 93 93 Oximetry 05/30/18 05/30/18 05/30/18 03:00 03:01 03:15 Temperature 98.2 F 98.2 F 98.1 F Pulse Rate 61 61 62 Respiratory 20 Rate Blood Pressure 99/51 82/45 (mmHg) O2 Sat by Pulse 94 94 94 Oximetry 05/30/18 05/30/18 05/30/18 03:30 03:45 04:00 Temperature 98.1 F 98.1 F 98.1 F Pulse Rate 61 62 62 Respiratory 20 Rate Blood Pressure 82/45 82/45 83/44 (mmHg) O2 Sat by Pulse 94 95 95 Oximetry 05/30/18 05/30/18 05/30/18 04:01 04:15 04:30 Temperature 98.1 F 98.1 F 98.1 F Pulse Rate 62 63 62 Respiratory Rate Blood Pressure 84/43 82/44 (mmHg) O2 Sat by Pulse 95 96 96 Oximetry 05/30/18 05/30/1819 04:36 04:45 05:00 Temperature 98.1 F 98.1 F 98.1 F Pulse Rate 63 64 64 Respiratory 20 Rate Blood Pressure 83/43 84/44 84/42 (mmHg) O2 Sat by Pulse 96 96 96 Oximetry 05/30/18 05/30/18 05/30/18 05:15 05:30 05:45 Temperature 98.1 F 98.1 F 97.9 F Pulse Rate 63 63 64 Respiratory Rate Blood Pressure 85/45 89/45 95/50 (mmHg) O2 Sat by Pulse 96 96 96 Oximetry 05/30/18 05/30/18 05/30/18 06:00 06:15 06:30 Temperature 97.9 F 97.7 F 97.7 F Pulse Rate 64 65 68 Respiratory 20 Rate Blood Pressure 95/50 94/51 106/60 (mmHg) O2 Sat by Pulse 96 96 95 Oximetry 05/30/18 05/30/18 05/30/18 06:45 07:00 07:13 Temperature 97.7 F 97.7 F 97.5 F Pulse Rate 67 67 66 Respiratory 20 Rate Blood Pressure 94/54 83/51 91/51 (mmHg) O2 Sat by Pulse 95 97 95 Oximetry 05/30/18 05/30/18 05/30/18 07:15 07:30 07:45 Temperature 97.7 F 97.5 F 97.5 F Pulse Rate 66 68 61 Respiratory Rate Blood Pressure 92/52 101/52 91/51 (mmHg) O2 Sat by Pulse 95 95 90 Oximetry 05/30/18 05/30/18 05/30/18 08:00 08:01 08:15 Temperature 97.5 F 97.5 F 97.5 F Pulse Rate 64 66 63 Respiratory 20 Rate Blood Pressure 96/52 96/50 (mmHg) O2 Sat by Pulse 93 93 93 Oximetry 05/30/18 05/30/18 05/30/18 08:30 08:45 09:00 Temperature 97.5 F 97.5 F 97.5 F Pulse Rate 62 62 63 Respiratory 20 Rate Blood Pressure 106/55 98/55 105/59 (mmHg) O2 Sat by Pulse 93 93 93 Oximetry 05/30/18 05/30/18 05/30/18 09:01 09:15 09:30 Temperature 97.5 F 97.5 F 97.3 F Pulse Rate 62 62 63 Respiratory Rate Blood Pressure 107/62 105/62 (mmHg) O2 Sat by Pulse 93 94 94 Oximetry 05/30/18 05/30/18 05/30/18 09:45 10:00 10:01 Temperature 97.3 F 97.3 F 97.3 F Pulse Rate 60 62 61 Respiratory 20 Rate Blood Pressure 107/59 109/64 (mmHg) O2 Sat by Pulse 94 96 96 Oximetry 05/30/18 05/30/18 05/30/18 10:15 10:30 10:45 Temperature 97.3 F 97.3 F 97.2 F Pulse Rate 60 60 59 Respiratory Rate Blood Pressure 108/59 108/66 111/61 (mmHg) O2 Sat by Pulse 95 95 95 Oximetry 05/30/18 05/30/18 05/30/18 11:00 11:01 11:31 Temperature 97.2 F 97.2 F 97.2 F Pulse Rate 58 59 64 Respiratory 20 Rate Blood Pressure 116/66 101/56 (mmHg) O2 Sat by Pulse 96 95 97 Oximetry 05/30/18 05/30/18 05/30/18 11:45 12:00 12:01 Temperature 97.2 F 97.3 F 97.3 F Pulse Rate 59 59 59 Respiratory 20 Rate Blood Pressure 103/57 105/54 (mmHg) O2 Sat by Pulse 98 98 98 Oximetry 05/30/18 05/30/18 05/30/18 12:15 12:30 12:45 Temperature 97.3 F 97.3 F 97.3 F Pulse Rate 62 61 58 Respiratory Rate Blood Pressure 106/54 116/59 109/56 (mmHg) O2 Sat by Pulse 97 96 96 Oximetry 05/30/18 05/30/18 05/30/18 13:00 13:15 13:30 Temperature 97.5 F 97.5 F 97.5 F Pulse Rate 54 71 71 Respiratory 20 Rate Blood Pressure 100/58 109/60 121/60 (mmHg) O2 Sat by Pulse 96 97 99 Oximetry 05/30/18 05/30/18 05/30/18 13:46 14:00 14:01 Temperature 97.5 F 97.7 F 97.7 F Pulse Rate 80 71 73 Respiratory 25 Rate Blood Pressure 130/73 122/48 (mmHg) O2 Sat by Pulse 100 99 98 Oximetry 05/30/18 05/30/18 05/30/18 14:15 15:00 16:00 Temperature 97.9 F 97.9 F 97.5 F Pulse Rate 75 66 56 Respiratory 20 20 Rate Blood Pressure (mmHg) O2 Sat by Pulse 97 100 90 Oximetry 05/29/18 05/29/18 05/29/18 12:40 12:40 12:40 WBC 6.7 RBC 5.39 Hgb 14.9 Hct 47 H MCV 88 MCH 28 MCHC 32 RDW 17 H Plt Count 142 L MPV 9.7 Neut % (Auto) 87.8 Lymph % (Auto) 6.0 [place] % (Auto) 5.0 Eos % (Auto) 0.8 Baso % (Auto) 0.4 Absolute Neuts (auto) 5.9 Absolute Lymphs (auto) 0.4 L Absolute Monos (auto) 0.3 Absolute Eos (auto) 0.1 Absolute Basos (auto) 0 Absolute Nucleated RBC 0 Nucleated RBC % 0.1 D-Dimer, Quantitative Patient Temperature ABG pH ABG pH (Temp Correct) ABG pCO2 ABG pCO2 (Temp Corrct ABG pO2 ABG pO2 (Temp Correct ABG HCO3 ABG O2 Saturation ABG Base Excess Respiration Rate O2 Delivery Device Ventilator Type Vent Mode FiO2 Inspiratory Time PEEP Pressure Support Pressure Control EPAP IPAP BiPAP Sodium 138 Potassium 3.9 Chloride 102 Carbon Dioxide 30 Anion Gap 6 BUN 15 Creatinine 0.86 Est GFR ( Amer) 109.0 Est GFR (Non-Af Amer) 90.1 BUN/Creatinine Ratio 17.4 Glucose 163 H POC Glucose (mg/dL) Lactic Acid 0.5 Calcium 9.3 Total Bilirubin 0.80 AST 17 ALT 10 Alkaline Phosphatase 30 L Total Creatine Kinase 194 CK-MB (CK-2) 3.8 Troponin I 0.02 C-Reactive Protein 230.66 H B-Natriuretic Peptide Total Protein 7.0 Albumin 3.5 Globulin 3.5 Albumin/Globulin Ratio 1.0 Urine Color Urine Appearance Urine pH Ur Specific [place] Urine Protein Urine Ketones Urine Blood Urine Nitrate Urine Bilirubin Urine Urobilinogen Ur Leukocyte Esterase Urine WBC (Auto) Urine RBC (Auto) Ur Squamous Epith Cells Urine Bacteria Urine Glucose Influenza A (Rapid) Influenza B (Rapid) 05/29/18 05/29/18 05/29/18 12:40 12:40 15:27 WBC RBC Hgb Hct MCV MCH MCHC RDW Plt Count MPV Neut % (Auto) Lymph % (Auto) [place] % (Auto) Eos % (Auto) Baso % (Auto) Absolute Neuts (auto) Absolute Lymphs (auto) Absolute Monos (auto) Absolute Eos (auto) Absolute Basos (auto) Absolute Nucleated RBC Nucleated RBC % D-Dimer, Quantitative 405 H Patient Temperature ABG pH 7.27 L ABG pH (Temp Correct) ABG pCO2 68 H ABG pCO2 (Temp Corrct ABG pO2 92 ABG pO2 (Temp Correct ABG HCO3 26.6 ABG O2 Saturation 97.6 ABG Base Excess 2.3 H Respiration Rate O2 Delivery Device Ventilator Type Vent Mode FiO2 Inspiratory Time PEEP Pressure Support Pressure Control EPAP IPAP BiPAP Sodium Potassium Chloride Carbon Dioxide Anion Gap BUN Creatinine Est GFR ( Amer) Est GFR (Non-Af Amer) BUN/Creatinine Ratio Glucose POC Glucose (mg/dL) Lactic Acid Calcium Total Bilirubin AST ALT Alkaline Phosphatase Total Creatine Kinase CK-MB (CK-2) Troponin I C-Reactive Protein B-Natriuretic Peptide 76 Total Protein Albumin Globulin Albumin/Globulin Ratio Urine Color Urine Appearance Urine pH Ur Specific [place] Urine Protein Urine Ketones Urine Blood Urine Nitrate Urine Bilirubin Urine Urobilinogen Ur Leukocyte Esterase Urine WBC (Auto) Urine RBC (Auto) Ur Squamous Epith Cells Urine Bacteria Urine Glucose Influenza A (Rapid) Influenza B (Rapid) 05/29/18 05/29/18 05/29/18 17:20 17:46 18:18 WBC RBC Hgb Hct MCV MCH MCHC RDW Plt Count MPV Neut % (Auto) Lymph % (Auto) [place] % (Auto) Eos % (Auto) Baso % (Auto) Absolute Neuts (auto) Absolute Lymphs (auto) Absolute Monos (auto) Absolute Eos (auto) Absolute Basos (auto) Absolute Nucleated RBC Nucleated RBC % D-Dimer, Quantitative Patient Temperature ABG pH ABG pH (Temp Correct) ABG pCO2 ABG pCO2 (Temp Corrct ABG pO2 ABG pO2 (Temp Correct ABG HCO3 ABG O2 Saturation ABG Base Excess Respiration Rate O2 Delivery Device Ventilator Type Vent Mode FiO2 Inspiratory Time PEEP Pressure Support Pressure Control EPAP IPAP BiPAP Sodium Potassium Chloride Carbon Dioxide Anion Gap BUN Creatinine Est GFR ( Amer) Est GFR (Non-Af Amer) BUN/Creatinine Ratio Glucose POC Glucose (mg/dL) 205 H Lactic Acid Calcium Total Bilirubin AST ALT Alkaline Phosphatase Total Creatine Kinase CK-MB (CK-2) Troponin I C-Reactive Protein B-Natriuretic Peptide Total Protein Albumin Globulin Albumin/Globulin Ratio Urine Color Yellow Urine Appearance Clear Urine pH 5.0 Ur Specific [place] 1.017 Urine Protein Negative Urine Ketones Negative Urine Blood 2+ A Urine Nitrate Negative Urine Bilirubin Negative Urine Urobilinogen Negative Ur Leukocyte Esterase Trace A Urine WBC (Auto) Trace(0-5/hpf) Urine RBC (Auto) 1+(3-5/hpf) A Ur Squamous Epith Cells Present A Urine Bacteria Absent Urine Glucose Negative Influenza A (Rapid) Negative Influenza B (Rapid) Negative 05/29/18 05/29/18 05/30/18 20:40 22:18 02:18 WBC RBC Hgb Hct MCV MCH MCHC RDW Plt Count MPV Neut % (Auto) Lymph % (Auto) [place] % (Auto) Eos % (Auto) Baso % (Auto) Absolute Neuts (auto) Absolute Lymphs (auto) Absolute Monos (auto) Absolute Eos (auto) Absolute Basos (auto) Absolute Nucleated RBC Nucleated RBC % D-Dimer, Quantitative Patient Temperature Not Reportable Not Reportable Not Reportable ABG pH 7.19 L* 7.21 L 7.29 L ABG pH (Temp Correct) Not Reportable Not Reportable Not Reportable ABG pCO2 96 H* 90 H* 67 H ABG pCO2 (Temp Corrct Not Reportable Not Reportable Not Reportable ABG pO2 237 H 128 H 106 H ABG pO2 (Temp Correct Not Reportable Not Reportable Not Reportable ABG HCO3 28.8 28.7 27.7 ABG O2 Saturation 100.0 H 99.7 H 99.4 H ABG Base Excess 5.0 H 4.9 H 3.6 H Respiration Rate Not Reportable 16 20 O2 Delivery Device Bipap Bipap vent Ventilator Type Not Reportable Not Reportable 500 Vent Mode S/t S/t cmv FiO2 90 90 100 Inspiratory Time Not Reportable Not Reportable 0.8 PEEP Not Reportable Not Reportable 5 Pressure Support Not Reportable Not Reportable Not Reportable Pressure Control Not Reportable Not Reportable Not Reportable EPAP 8 8 Not Reportable IPAP 20 20 Not Reportable BiPAP Not Reportable Not Reportable Not Reportable Sodium Potassium Chloride Carbon Dioxide Anion Gap BUN Creatinine Est GFR ( Amer) Est GFR (Non-Af Amer) BUN/Creatinine Ratio Glucose POC Glucose (mg/dL) Lactic Acid Calcium Total Bilirubin AST ALT Alkaline Phosphatase Total Creatine Kinase CK-MB (CK-2) Troponin I C-Reactive Protein B-Natriuretic Peptide Total Protein Albumin Globulin Albumin/Globulin Ratio Urine Color Urine Appearance Urine pH Ur Specific [place] Urine Protein Urine Ketones Urine Blood Urine Nitrate Urine Bilirubin Urine Urobilinogen Ur Leukocyte Esterase Urine WBC (Auto) Urine RBC (Auto) Ur Squamous Epith Cells Urine Bacteria Urine Glucose Influenza A (Rapid) Influenza B (Rapid) 05/30/18 05/30/18 05/30/18 05:10 05:10 08:30 WBC 6.4 RBC 4.91 Hgb 13.5 L Hct 44 MCV 89 MCH 28 MCHC 31 RDW 17 H Plt Count 159 MPV 9.8 Neut % (Auto) 88.4 Lymph % (Auto) 5.9 [place] % (Auto) 5.5 Eos % (Auto) 0 Baso % (Auto) 0.2 Absolute Neuts (auto) 5.6 Absolute Lymphs (auto) 0.4 L Absolute Monos (auto) 0.4 Absolute Eos (auto) 0 Absolute Basos (auto) 0 Absolute Nucleated RBC 0 Nucleated RBC % 0.1 D-Dimer, Quantitative Patient Temperature ABG pH ABG pH (Temp Correct) ABG pCO2 ABG pCO2 (Temp Corrct ABG pO2 ABG pO2 (Temp Correct ABG HCO3 ABG O2 Saturation ABG Base Excess Respiration Rate O2 Delivery Device Ventilator Type Vent Mode FiO2 Inspiratory Time PEEP Pressure Support Pressure Control EPAP IPAP BiPAP Sodium 139 Potassium 4.1 Chloride 101 Carbon Dioxide 32 Anion Gap 6 BUN 25 H Creatinine 1.06 Est GFR ( Amer) 85.7 Est GFR (Non-Af Amer) 70.8 BUN/Creatinine Ratio 23.6 H Glucose 237 H POC Glucose (mg/dL) 213 H Lactic Acid Calcium 8.6 Total Bilirubin 0.70 AST 14 ALT 10 Alkaline Phosphatase 23 L Total Creatine Kinase CK-MB (CK-2) Troponin I C-Reactive Protein B-Natriuretic Peptide Total Protein 6.4 Albumin 3.1 L Globulin 3.3 Albumin/Globulin Ratio 0.9 L Urine Color Urine Appearance Urine pH Ur Specific [place] Urine Protein Urine Ketones Urine Blood Urine Nitrate Urine Bilirubin Urine Urobilinogen Ur Leukocyte Esterase Urine WBC (Auto) Urine RBC (Auto) Ur Squamous Epith Cells Urine Bacteria Urine Glucose Influenza A (Rapid) Influenza B (Rapid) 05/30/18 11:37 WBC RBC Hgb Hct MCV MCH MCHC RDW Plt Count MPV Neut % (Auto) Lymph % (Auto) [place] % (Auto) Eos % (Auto) Baso % (Auto) Absolute Neuts (auto) Absolute Lymphs (auto) Absolute Monos (auto) Absolute Eos (auto) Absolute Basos (auto) Absolute Nucleated RBC Nucleated RBC % D-Dimer, Quantitative Patient Temperature ABG pH ABG pH (Temp Correct) ABG pCO2 ABG pCO2 (Temp Corrct ABG pO2 ABG pO2 (Temp Correct ABG HCO3 ABG O2 Saturation ABG Base Excess Respiration Rate O2 Delivery Device Ventilator Type Vent Mode FiO2 Inspiratory Time PEEP Pressure Support Pressure Control EPAP IPAP BiPAP Sodium Potassium Chloride Carbon Dioxide Anion Gap BUN Creatinine Est GFR ( Amer) Est GFR (Non-Af Amer) BUN/Creatinine Ratio Glucose POC Glucose (mg/dL) 195 H Lactic Acid Calcium Total Bilirubin AST ALT Alkaline Phosphatase Total Creatine Kinase CK-MB (CK-2) Troponin I C-Reactive Protein B-Natriuretic Peptide Total Protein Albumin Globulin Albumin/Globulin Ratio Urine Color Urine Appearance Urine pH Ur Specific [place] Urine Protein Urine Ketones Urine Blood Urine Nitrate Urine Bilirubin Urine Urobilinogen Ur Leukocyte Esterase Urine WBC (Auto) Urine RBC (Auto) Ur Squamous Epith Cells Urine Bacteria Urine Glucose Influenza A (Rapid) Influenza B (Rapid) General: Other - sedated; HEENT: Atraumatic, Mucous membr. moist/pink Lungs: Clear to auscultation Cardiovascular: Regular rate, Normal S1, Normal S2 Abdomen: Soft, Other - obese Extremities: No clubbing, No cyanosis, Other - nonpitting edema; chronic skin change with necrosis and erythema Neurological: Other - unable to access optimally due to being on propofol Assessment/Plan - Assessment/Plan Assessment: 62 yo M with hx/o CHF, morbid obesity, COPD being followed for acute respiratory failure in the setting of hypercapnea ACUTE RESPIRATORY FAILURE DUE TO HYPERCAPNEA/HYPOXEMIA CELLULITIS AF SICK SINUS SYNDROME s/p PPM set to 49bpm VTE/DVT/PE OHS HYPERGLYCEMIA PNEUMONIA ASCENDING AORTA DILATION 4.3CM Plan: -continue with mechanical vent support as current with PEEP 10 - PRN Bronchodilators - lasix 20 mg x 1 now, followed by daily - daily CBC, BMP, mg, phos - start TF - promote goal of 60cc/h - On zosyn and vanc - continue with xarelto - wound care consult GI ppx: H2B, bowel regimen DVT ppx: on xarelto Oral care with chlorhexidine CRITICAL CARE TIME: 60 MINUTES
[2018-05-30] MEDS: Chlorhexidine MOUTHWASH 0.12%* 15 ML UDC TOPICAL SCH ×2 (17:24→21:57)
[2018-05-30] MEDS: Insulin LISPRO* 1 UNITS UNIT SUBCUT SCH (17:24)
[2018-05-30] MEDS: Rivaroxaban TAB(*) 20 MG TAB PO SCH (21:57)
[2018-05-30] MEDS: Famotidine SUSP ORALSYR 8 MG/ML J TUBE SCH (21:57)
[2018-05-31] MEDS: Propofol* 100 ML IV SCH ×3 (00:59→06:35)
[2018-05-31] MEDS: Chlorhexidine MOUTHWASH 0.12%* 15 ML UDC TOPICAL SCH ×6 (01:16→20:30)
[2018-05-31] MEDS: Vancomycin(*) 1,000 MG in NS 0.9% 250 ML* 250 ML IVPB SCH ×3 (01:16→17:29)
[2018-05-31] MEDS: Insulin LISPRO* 1 UNITS UNIT SUBCUT SCH ×5 (01:31→22:20)
[2018-05-31 06:19] LABS: ABS Basophils 0 10^3/ul (0-0.2); ABS Eosinophils 0.1 10^3/ul (0-0.6); ABS Lymphocytes 0.8 10^3/ul (1.0-4.8); ABS Monocytes 0.5 10^3/ul (0-0.8); ABS Neutrophils 4.4 10^3/ul (1.5-7.7); ABS Nucleated RBC 0 10^3/ul; Hematocrit 39 % (36-46); Lymphocyte % 14.7 %; Mean Corpuscular HGB Conc 33 g/dL (31-36); Mean Corpuscular Hemoglobin 29 pg (27-31); Mean Corpuscular Volume 87 fL (80-94); Mean Platelet Volume 9.8 fL (7.4-10.4); Nucleated Red Blood Cells % 0.1; Platelet Count 160 10^3/uL (150-450); Red Blood Count 4.51 10^6 /uL (4.18-5.48); Red Cell Distribution Width 17 % (10.5-15); White Blood Count 5.8 10^3/uL (3.5-10.8)
[2018-05-31 06:35] LABS: BUN/Creatinine Ratio 32.9 (8-20); Calcium 8.5 mg/dL (8.6-10.3); EGFR African American 110.5 (>60); EGFR Non-African American 91.3 (>60); Phosphorus 1.5 mg/dL (2.5-5.0); Potassium 3.5 mmol/L (3.5-5.0)
[2018-05-31] MEDS: ZOSYN 3.375 GM Q8H per EXTENDED INFUSION IVPB SCH ×6 (07:08→22:21)
[2018-05-31] MEDS ORDERED: Vancomycin Trough Check NOTE FOLLOW UP ONE (07:30)
[2018-05-31] MEDS ORDERED: Furosemide IV* 10 MG/ML 2 ML VIAL (20 MG) IV SCH (09:00)
[2018-05-31] MEDS: Potassium Chlor TAB* 10 MEQ TAB.ER PO SCH (09:03)
[2018-05-31] MEDS: Aspirin EC TAB* 81 MG TAB.EC PO SCH (09:03)
[2018-05-31] MEDS: Famotidine SUSP ORALSYR 8 MG/ML J TUBE SCH ×2 (09:03→20:30)
--- NOTE | 2018-05-31 10:05 | PN ---
Date of Service: 05/31/18 Critical Care Services: 62-year-old male with past medical history of morbid obesity, chronic venous stasis of LE with lymphedema and acute on chronic cellulits, VTE (DVT, PE), AF on chronic anticoagulation with Xarelto, OHS with BiPAP use at home nightly, and sick sinus syndrome status post pacemaker placement, CHF, s/p bilateral metatarsal amputations, and COPD being managed in the ICU for acute hypoxemic/hypercapnic respiratory failure needing intubation and mechanical ventilation 05/30: intubated 05/31: extubated. Tolerated po intake. + diarrhea. Denies any pain. Reports recent hx/o SOB and productive yellow non-bloody sputum Vital Signs: Temp Pulse Resp BP SpO2 FiO2 97.2 F 56 20 126/59 95 30 05/31/18 09:30 05/31/18 09:30 05/31/18 08:00 05/31/18 09:30 05/31/18 09:30 05/31 08:29 Physical Exam: General: NAD, cooperative HEENT: NCAT, EOMI, neck supple, Mucous membr. moist/pink Lungs: distant but clear breath sounds Cardiovascular: Regular rate, Normal S1, Normal S2 Abdomen: Soft, nontender, obese, normoactive bowel sounds Extremities: No clubbing, No cyanosis, nonpitting edema; chronic skin change with necrosis and erythema. B/l metatarsal amputations Neurological: AAOx 3, CN 2-12 grossly intact Fluid Balance (Past 24 Hours): I= O= Net Intake & Output 05/29/18 05/30/18 05/31/18 06/01/18 06:59 06:59 06:59 06:59 Intake Total 1879.9 3198 50 Output Total 1150 2905 125 Balance 729.9 293 -75 Weight 446 lb 12.8 oz 467 lb 8 oz Intake: IV Fluids 888.9 2327 ABX 332 ABX - CEFEPIME 50 ABX - VANCOMYCIN 255 250 LR 518 1219 NS (0.9%) 65.9 476 Zosyn 50 IVPB 343 ABX - CEFEPIME 50 ABX - VANCOMYCIN 293 Medicated IV 398 668 Propofol 398 668 Oral 250 0 Tube Feeding 143 Tube Feeding Flush Amount 50 NG Tube Irrigate Amount 60 Output: NG Tube Drainage Amount 1250 Urine 700 Chris 450 1530 125 Liquid Stool 125 ADLs: Meal Record Start: 05/29/18 16: 44 Freq: Status: Active Protocol: Created 05/29/18 16:44 System (Rec: 05/29/18 16:44 System ICU-L03) Document 05/30/18 09:00 [id number] (Rec: 05/30/18 09:14 [id number] ICU-C15) Document 05/30/18 13:00 [id number] (Rec: 05/30/18 13:02 [id number] ICU-C15) Document 05/30/18 18:00 [id number] (Rec: 05/30/18 18:07 [id number] ICU-C15) Intake and Output Start: 05/29/18 12: 15 Freq: Status: Active Protocol: Created 05/29/18 12:15 System (Rec: 05/29/18 12:15 System ED-C26) Intake and Output Start: 05/29/18 16: 44 Freq: Q1HR Status: Active Protocol: Created 05/29/18 16:44 System (Rec: 05/29/18 16:44 System ICU-L03) Document 05/29/18 17:00 [id number] (Rec: 05/29/18 18:06 [id number] ICU-C25) Document 05/29/18 18:00 [id number] (Rec: 05/29/18 18:06 [id number] ICU-C25) Document 05/29/18 23:50 [id number] (Rec: 05/29/18 23:50 [id number] ICU-C15) Document 05/30/18 00:45 [id number] (Rec: 05/30/18 00:45 [id number] ICU-M22) Document 05/30/18 02:00 [id number] (Rec: 05/30/18 02:10 [id number] ICU-M22) Document 05/30/18 02:58 [id number] (Rec: 05/30/18 02:58 MKF2122 ICU-M22) Document 05/30/18 04:00 ZJM4139 (Rec: 05/30/18 04:34 FPT9971 ICU-L03) Document 05/30/18 05:00 PTJ3586 (Rec: 05/30/18 05:07 [id number] ICU-M22) Document 05/30/18 06:00 RDN5763 (Rec: 05/30/18 06:10 [id number] ICU-M22) Document 05/30/18 07:00 [id number] (Rec: 05/30/18 07:13 ZHZ4484 ICU-C15) Document 05/30/18 07:36 [id number] (Rec: 05/30/18 07:36 [id number] ICU-C15) Document 05/30/18 09:02 [id number] (Rec: 05/30/18 09:02 [id number] ICU-M22) Document 05/30/18 10:00 ICK9027 (Rec: 05/30/18 10:30 JSK9136 ICU-C15) Document 05/30/18 11:00 [id number] (Rec: 05/30/18 11:16 [id number] ICU-C15) Document 05/30/18 12:00 YUW6534 (Rec: 05/30/18 12:22 [id number] ICU-C15) Document 05/30/18 13:00 YGC4839 (Rec: 05/30/18 13:02 [id number] ICU-C15) Document 05/30/18 14:00 KNZ5739 (Rec: 05/30/18 14:20 YVT2053 ICU-C15) Document 05/30/18 15:00 MXU0375 (Rec: 05/30/18 15:10 [id number] ICU-C15) Document 05/30/18 15:46 SFB1408 (Rec: 05/30/18 15:46 [id number] ICU-C15) Document 05/30/18 17:00 CNN1032 (Rec: 05/30/18 17:26 DLM5081 ICU-C15) Document 05/30/18 18:00 KVY0013 (Rec: 05/30/18 18:07 [id number] ICU-C15) Document 05/30/18 20:00 AMD5991 (Rec: 05/30/18 20:13 [id number] ICU-C15) Document 05/30/18 23:00 ZCU1364 (Rec: 05/30/18 23:49 ZKT6090 ICU-C15) Document 05/31/18 01:18 HKU6142 (Rec: 05/31/18 01:18 LGG4549 ICU-M22) Document 05/31/18 04:00 HOQ3967 (Rec: 05/31/18 04:12 [id number] ICU-C15) Document 05/31/18 06:00 [id number] (Rec: 05/31/18 06:15 PWA6046 ICU-M22) Document 05/31/18 06:00 LPI1003 (Rec: 05/31/18 06:18 [id number] ICU-M22) Document 05/31/18 08:00 [id number] (Rec: 05/31/18 08:02 [id number] ICU-C25) Document 05/31/18 09:00 YAF1579 (Rec: 05/31/18 09:31 IOL3348 ICU-C25) Labs: Laboratory Results - last 24 hr 05/30/18 05/30/18 05/31/18 11:37 16:36 01:16 WBC RBC Hgb Hct MCV MCH MCHC RDW Plt Count MPV Neut % (Auto) Lymph % (Auto) [place] % (Auto) Eos % (Auto) Baso % (Auto) Absolute Neuts (auto) Absolute Lymphs (auto) Absolute Monos (auto) Absolute Eos (auto) Absolute Basos (auto) Absolute Nucleated RBC Nucleated RBC % Sodium Potassium Chloride Carbon Dioxide Anion Gap BUN Creatinine Est GFR ( Amer) Est GFR (Non-Af Amer) BUN/Creatinine Ratio Glucose POC Glucose (mg/dL) 195 H 181 H 144 H Calcium Phosphorus Magnesium Vancomycin Trough 05/31/18 05/31/18 05/31/18 06:01 06:01 07:49 WBC 5.8 RBC 4.51 Hgb 13.0 L Hct 39 MCV 87 MCH 29 MCHC 33 RDW 17 H Plt Count 160 MPV 9.8 Neut % (Auto) 75.8 Lymph % (Auto) 14.7 [place] % (Auto) 7.9 Eos % (Auto) 1.0 Baso % (Auto) 0.6 Absolute Neuts (auto) 4.4 Absolute Lymphs (auto) 0.8 L Absolute Monos (auto) 0.5 Absolute Eos (auto) 0.1 Absolute Basos (auto) 0 Absolute Nucleated RBC 0 Nucleated RBC % 0.1 Sodium 143 Potassium 3.5 Chloride 104 Carbon Dioxide 34 H Anion Gap 5 BUN 28 H Creatinine 0.85 Est GFR ( Amer) 110.5 Est GFR (Non-Af Amer) 91.3 BUN/Creatinine Ratio 32.9 H Glucose 145 H POC Glucose (mg/dL) Calcium 8.5 L Phosphorus 1.5 L Magnesium 2.0 Vancomycin Trough 13.8 Studies: Patient Name: JOCELYN KHAN Medical Record#: [id number] Ordering Physician: Rex Owen MD Acct.#: [id number] : 1955 Age: 62 Sex: M Location: INTENSIVE CARE UNIT Exam Date: 05/31/18699 ADM Status: ADM IN Order Information: CHEST AP OR PORT Accession Number: [id number] CPT: 51392 HISTORY: ETT placement, acute respiratory failure COMPARISONS: May 30, 2018 VIEWS: 1: frontal AP view of the chest at 6:05 AM FINDINGS: LINES AND TUBES: An endotracheal tube is noted with the tip overlying the trachea between the clavicles and the chet. A gastric tube is noted, with the tip in the left upper quadrant in a prepyloric position.. A left-sided pacemaker is noted. CARDIOMEDIASTINAL SILHOUETTE: The cardiac silhouette is enlarged. The cardiomediastinal silhouette is otherwise normal for portable technique. PLEURA: The costophrenic angles are sharp. No pleural abnormalities are noted. LUNG PARENCHYMA: There is a diffuse reticular pattern with indistinct pulmonary vessels. ABDOMEN: The upper abdomen is clear. There is no subphrenic gas. BONES AND SOFT TISSUES: No bone or soft tissue abnormalities are noted. IMPRESSION: 1. LINES AND TUBES ABOVE. 2. CARDIOMEGALY. 3. PULMONARY INTERSTITIAL EDEMA. 4. THERE HAS BEEN IMPROVED AERATION OF THE LUNG BASES. <Electronically signed by Satinder Saunders MD in OV> 05/31/18727 Dictated By: Satinder Saunders MD Dictated Date/Time: 05/31/18727 Transcribed Date/Time: 05/31/18726 Copy to: CC:Nataly López MD; Rex Owen MD; Pascual Zhao MD; Javier Gilliland III, MD Imaging - [facility] - [facility] [id number] [place] [id number] ph ([phone]) ph ([phone]) ph ([phone]) This report is only to be considered final once signed by the Provider(s) as displayed in the "<Electronically Signed by >" field (s). Absence of a signature indicates the report is in a draft status and still needs to be finalized. In the event this document was created by someone other than the signing Provider, the individual initiating the document will be listed in the "Entered by:" or "Dictated by:" sauer. 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 Morbid obesity Chronic venous stasis of LE with lymphedema and acute on chronic cellulits s/p bilateral metatarsal amputations VTE (DVT, PE) AF on chronic anticoagulation with Xarelto OHS/JAIDEN with BiPAP use at home nightly Sick sinus syndrome status post pacemaker placement CHF Diarrhea Plan: Acute respiratory failure due to hypercapnia/hypoxemia PNA COPD -intubated 05/30 -extubated 05/31 - continue with BD - start chest physiotherapy with bed percussion q6h - continue with vanc and zosyn x 7 days Hypokalemia Hypophosphatemia likely due to diuresis and poor intake s/p replacement with IV KCL and KPHOS check K and phos in AM Hyperglycemia improved now on SSI Can change FSBG ac/hs 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 Sanchez. No need for standing debridement Wound care mgmt PT/OT eval pending continue with vanc and zosyn VTE (DVT, PE) AF on chronic anticoagulation with Xarelto on xarelto OHS/JAIDEN with BiPAP use at home nightly continue with home trilogy prn and nocturnally Sick sinus syndrome status post pacemaker placement improved bradycardia after extubation CHF no suggestion of acute decompensation continue with lasix daily- change from 20 mg IV to 20 mg po Torsemide tomorrow Diarrhea likely due to TF on flexiseal if diarrhea does not resolve by tomorrow will consider workup to r/o infection and consider immodium if indicated GI ppx: H2B, bowel regimen DVT ppx: on xarelto Oral care with chlorhexidine CRITICAL CARE TIME: 55 MINUTES Critical care issues: s/p extubation <24 hours, acute respiratory failure due to hypoxemia/hypercapnea Dispo: Monitor in the ICU
[2018-05-31] MEDS: KCL 20 MEQ/100 ML IVPREMIX* 20 MEQ/100 ML BAG IV SCH ×2 (10:33→13:10)
[2018-05-31] MEDS ORDERED: Potassium Phosphate IV* 15 MMOLE in NS 0.9% 250 ML* 250 ML IVPB ONE (10:45)
[2018-05-31] MEDS ORDERED: Potassium Phosphate IV* 30 MMOLE in NS 0.9% 500 ML* 500 ML IVPB ONE (11:00)
[2018-05-31] MEDS: guaiFENesin ER TAB 600 MG PO SCH ×3 (13:11→20:32)
[2018-05-31] MEDS: Pseudoephedrine TAB* 60 MG PO SCH ×3 (13:11→20:33)
[2018-05-31] MEDS: Albuterol/Ipratropium NEB.SOL* Albuterol 2.5 MG/Ipratropium 0.5 MG 3 ML INH SCH ×3 (13:19→19:32)
[2018-05-31] MEDS: Rivaroxaban TAB(*) 20 MG TAB PO SCH (20:33)
[2018-06-01] MEDS: Vancomycin(*) 1,000 MG in NS 0.9% 250 ML* 250 ML IVPB SCH ×3 (00:07→16:42)
[2018-06-01] MEDS: Acetaminophen TAB* 325 MG PO PRN ×2 (00:07→08:57)
[2018-06-01] MEDS: Albuterol/Ipratropium NEB.SOL* Albuterol 2.5 MG/Ipratropium 0.5 MG 3 ML INH SCH ×2 (01:32→08:05)
[2018-06-01] MEDS ORDERED: Ketorolac INJ* 15 MG/ML 1 ML VIAL IV PUSH ONE (01:56)
[2018-06-01] MEDS: Gabapentin CAP(*) 100 MG PO SCH ×3 (02:17→20:54)
[2018-06-01] MEDS: Chlorhexidine MOUTHWASH 0.12%* 15 ML UDC TOPICAL SCH ×3 (02:17→10:31)
[2018-06-01 05:22] LABS: ABS Basophils 0 10^3/ul (0-0.2); ABS Eosinophils 0.1 10^3/ul (0-0.6); ABS Monocytes 0.4 10^3/ul (0-0.8); ABS Neutrophils 3.9 10^3/ul (1.5-7.7); ABS Nucleated RBC 0 10^3/ul; Eosinophil % 2.4 %; Hematocrit 39 % (36-46); Hemoglobin 12.5 g/dL (14.0-18.0); Lymphocyte % 18.6 %; Mean Corpuscular HGB Conc 32 g/dL (31-36); Mean Corpuscular Hemoglobin 28 pg (27-31); Mean Corpuscular Volume 87 fL (80-94); Nucleated Red Blood Cells % 0.1; Platelet Count 170 10^3/uL (150-450); Red Blood Count 4.54 10^6 /uL (4.18-5.48); Red Cell Distribution Width 18 % (10.5-15); White Blood Count 5.5 10^3/uL (3.5-10.8)
[2018-06-01 05:38] LABS: BUN/Creatinine Ratio 26.4 (8-20); Calcium 8.4 mg/dL (8.6-10.3); EGFR African American 107.6 (>60); EGFR Non-African American 88.9 (>60); Magnesium 2.1 mg/dL (1.9-2.7); Phosphorus 3.7 mg/dL (2.5-5.0)
[2018-06-01] MEDS: ZOSYN 3.375 GM Q8H per EXTENDED INFUSION IVPB SCH ×6 (05:52→23:19)
[2018-06-01] MEDS: Insulin LISPRO* 1 UNITS UNIT SUBCUT SCH ×2 (08:57→12:52)
[2018-06-01] MEDS: guaiFENesin ER TAB 600 MG PO SCH ×4 (08:57→20:55)
[2018-06-01] MEDS: Aspirin EC TAB* 81 MG TAB.EC PO SCH (08:57)
[2018-06-01] MEDS: Pseudoephedrine TAB* 60 MG PO SCH ×2 (08:57→15:30)
[2018-06-01] MEDS: Torsemide TAB* 20 MG PO SCH (08:57)
[2018-06-01] MEDS: Potassium Chloride LIQUID* 20 MEQ PACKET PO SCH (08:57)
--- NOTE | 2018-06-01 11:42 | CONSULT ---
Subjective Date of Service: 06/01/18 Interval History: Mr. Shafer is a 62 yo male with PMH significant for DVT/PE, obesity hyperventilation syndrome with BiPAP use at bedtime, SSS S/P pacemaker placement , bilateral LE lymphedema, HF, and COPD. Mr. Shafer was recently admitted to [facility] and discharged on 05/24/18 after an extensive hospital stay for COPD and cellulitis. He represented to the emergency room with complaints of shortness of breath and weeping wounds from the LEs. Mr. Shafer was seen in consultation by general surgery who felt that this LEs had edematous infective dermatitis. Mr. Shafer reports that his home health aide washes his LEs daily and applies lotion and a dressing to his legs daily. He reports that he was using calcium alginate on the legs until he ran out of dressing supplies and has been using A+ D ointment on the legs since then. He [facility] with the [facility] wound center as needed. Mr. Caldwell reports that he has not been keeping his legs elevated because he was unable to get them up in his bed. Patient seen and examined at bedside. Family History: Unchanged from Admission Social History: Unchanged from Admission Past Medical History: Unchanged from Admission Review of Systems - Measurements Intake and Output: Intake and Output Last 24 Hours 05/30/18 05/31/18 06/01/18 06/02/18 06:59 06:59 06:59 06:59 Intake Total 1879.9 3198 3182 Output Total 1150 2905 2220 Balance 729.9 293 962 Weight 446 lb 12.8 oz 467 lb 8 oz Intake: IV Fluids 888.9 2327 942 ABX 332 ABX - CEFEPIME 50 ABX - VANCOMYCIN 255 250 55 LR 518 1219 NS (0.9%) 65.9 476 887 Zosyn 50 IVPB 343 904 ABX - CEFEPIME 50 ABX - VANCOMYCIN 293 500 NS (0.9%) 404 Medicated IV 398 668 86 Propofol 398 668 86 Oral 250 0 1200 Tube Feeding 143 Tube Feeding Flush Amount 50 NG Tube Irrigate Amount 60 Output: NG Tube Drainage Amount 1250 Urine 700 950 Chris 450 1530 1270 Liquid Stool 125 - Review of Systems Constitutional Symptoms: Negative: Fever, Other - Chills Dermatology: Positive: Rash, Other - Open areas Cardiology: Positive: Edema Endocrinology: Positive: Obesity, Diabetes Mellitus Objective Active Medications: Acetaminophen (Tylenol Tab*) 650 mg PO Q6H PRN Reason: FEVER/PAIN Albuterol (Ventolin Hfa Inhaler*) 2 puff INH Q4H PRN Reason: SOB/WHEEZING Albuterol/Ipratropium (Duoneb (Albuterol 2.5 Mg/Ipratropium 0.5 Mg)) 1 neb INH [id number] AWAKE PRN Reason: SOB/WHEEZING Aspirin (Aspirin Ec Tab*) 81 mg PO DAILY [facility] Dextrose (D50w Syringe 50 Ml*) 12.5 gm IV PUSH .FOR FS < 60 - SS PRN Reason: FS < 60 Diphenhydramine HCl (Benadryl Po*) 25 mg PO Q6H PRN Reason: Allergy Symptoms Famotidine (Pepcid Susp*) 20 mg J TUBE BID [facility] Gabapentin (Neurontin Cap(*)) 100 mg PO BID [facility] Guaifenesin (Mucinex*) 600 mg PO QID [facility] Vancomycin HCl 1,000 mg/ (Sodium Chloride) 250 mls @ 166.667 mls/hr IVPB Q8H [facility] Piperacillin Sod/Tazobactam (Sod 3.375 gm/ Sodium Chloride) 100 mls @ 25 mls/ hr IVPB Q8H [facility] Insulin Human Lispro (Humalog*) 0 units SUBCUT FS ACHS ICU [facility]; Protocol Nitroglycerin (Nitroglycerin Tab 0.4 Mg*) 0.4 mg SL Q5M PRN Reason: chest pain Ondansetron HCl (Zofran Inj*) 4 mg IV Q6H PRN Reason: NAUSEA Pharmacy Consult (Vancomycin Per Pharmacy*) 1 note FOLLOW UP . PRN Pharmacy Consult (Zosyn Per Pharmacy*) 1 note FOLLOW UP . PRN Pharmacy Profile Note (Vancomycin Trough Check) 1 note FOLLOW UP 729 ONE Stop: 06/02/18 07:31 Potassium Chloride (Klor-Con Liquid*) 20 meq PO DAILY [facility] Pseudoephedrine HCl (Sudafed Tab*) 60 mg PO QID [facility] Rivaroxaban (Xarelto(*)) 20 mg PO BEDTIME [facility] Torsemide (Demadex*) 20 mg PO DAILY [facility] Vital Signs - 8 hr 06/01/18 06/01/18 06/01/18 04:00 05:00 05:21 Temperature 98.8 F 98.8 F Pulse Rate 60 62 Respiratory 16 19 13 Rate Blood Pressure 122/52 126/57 (mmHg) O2 Sat by Pulse 90 92 Oximetry 06/01/18 06/01/18 06/01/18 06:00 07:00 07:01 Temperature 98.6 F 98.6 F 98.6 F Pulse Rate 60 66 61 Respiratory 14 22 20 Rate Blood Pressure 114/56 129/55 (mmHg) O2 Sat by Pulse 91 89 90 Oximetry 06/01/18 06/01/18 06/01/18 08:00 08:01 08:12 Temperature 98.6 F 98.6 F Pulse Rate 61 63 62 Respiratory 20 17 20 Rate Blood Pressure 120/61 (mmHg) O2 Sat by Pulse 92 90 94 Oximetry 06/01/18 06/01/18 06/01/18 09:01 10:00 10:01 Temperature 98.6 F 98.8 F 98.8 F Pulse Rate 72 70 69 Respiratory 9 16 18 Rate Blood Pressure 145/72 (mmHg) O2 Sat by Pulse 88 89 90 Oximetry Oxygen Devices in Use Now: Nasal Cannula, BiPAP Appearance: NAD, sitting up in bed Ears/Nose/Mouth/Throat: Mucous Membranes Moist Extremities: - - Bilateral LE lymphedema Skin: - - See skin note below Neurological: Alert and Oriented x 3 Result Diagrams: 06/01/18 05:14 06/02/18 05:34 Microbiology and Other Data: Microbiology 05/29/18 15:27 Aerobic Blood Culture - Preliminary Blood Venous No Growth Day 2 Anaerobic Blood Culture - Preliminary No Growth Day 2 05/29/18 15:27 Aerobic Blood Culture - Preliminary Blood Venous No Growth Day 2 Anaerobic Blood Culture - Preliminary No Growth Day 2 05/29/18 17:20 Urine Culture - Final Urine Providencia Stuartii Normal [place] 05/30/18 07:35 Nasal Screen MRSA (PCR) - Final Nasal Mrsa Detected 05/29/18 17:40 Influenza Types A,B Antigen - Final Nasal Specimen received for Influenza A/B Molecular testing Skin Deviation Note - Skin Deviation Findings Right medial lower leg - There are a few superficial open areas without drainage. There is also dark colored tissue, this does not appear to be necrotic tissue or eschar. There is some erythmea to the lower leg. Right lateral lower leg - There is a large area with superfical open areas with bloody drainage. The total area with open areas is 19 cm x 15 cm x 0.1 cm. The wound base is pink. There is also some dark colored tissue that doesn't appear to be necrotic or eschar. Left lateral lower leg - There is erythema and areas with black tissue. This black tissue does not appear to be necrotic or eschar. There are no open areas. There is a superficial open area to the posterior ankle (unable to get leg into a position for a photograph) - 3.5 cm x 8 cm x 0.1 cm. Assessment/Plan: Mr. Shafer is a 62 yo male with PMH significant for DVT/PE, obesity hyperventilation syndrome with BiPAP use at bedtime, SSS S/P pacemaker placement , bilateral LE lymphedema, HF, and COPD. Mr. Shafer was recently admitted to [facility] and discharged on 05/24/18 after an extensive hospital stay for COPD and cellulitis. He represented to the emergency room with complaints of shortness of breath and weeping wounds from the LEs. 1. Bilateral LE's with superfical open areas and dermatitis. Mr. Shafer has a known history of venous stasis and follows with the [facility] wound clinic. I am unable to find any ABIs, I suspect he has had them done previously. Wash legs with soap and water daily. Apply oil emulsion to bilateral LEs. Apply calcium alginate over the open areas (with the oil emulsion applied first), followed by ABD pads, khushi wraps and SYLVIA wraps. Change dressing daily. Keep the legs elevated as much as possible throughout the day. Consider obtaining ABIs to assess LE circulation. Once the wounds are healed it will be important to wash leg daily with soap and water, apply lotion, use compression wrap and keep LEs elevated. 2. Morbid obesity 3. Chronic bilateral LE lymphedema with history of venous stasis ulcers 4. Diabetes Mellitus, type 2. HgA1C was 6.1 in 06/2017. Maintain good glycemic control to allow for wound healing. 5. Diet. Consistent Carbohydrate diet 6. Code Status. Full Code status 7. Disposition. Disposition per primary medicine team TIME SPENT: Time for this wound consultation was 30 minutes and 20 minutes was spent with the patient discussing past medical history, assessing, measuring, and photographing the wounds. Wound Problem/Plan Is Patient a Wound Clinic Patient: Yes - [facility] Wound Clinic Current Treatment: Calcium Alginate and A+D ointment
[2018-06-01] MEDS ORDERED: Loperamide CAP* 2 MG PO ONE (11:46)
[2018-06-01] MEDS: Famotidine SUSP ORALSYR 8 MG/ML J TUBE SCH (12:06)
--- NOTE | 2018-06-01 12:06 | PN ---
Date of Service: 06/01/18 - TRANSFER NOTE Critical Care Services: 62-year-old male with past medical history of morbid obesity, chronic venous stasis of LE with lymphedema and acute on chronic cellulits, VTE (DVT, PE), AF on chronic anticoagulation with Xarelto, OHS with BiPAP use at home nightly, and sick sinus syndrome status post pacemaker placement, CHF, s/p bilateral metatarsal amputations, and COPD being managed in the ICU for acute hypoxemic/ hypercapnic respiratory failure needing intubation and mechanical ventilation 05/30: intubated 05/31: extubated. Tolerated po intake. + diarrhea. Denies any pain. Reports recent hx/o SOB and productive yellow non-bloody sputum 06/01: Continues to have diarrhea- watery stools with flexiseal in place. He reports that diarrhea is usual after the initiation of antibiotics. Complains of pain in his coccyx are which is new and attributed to the flexiseal. He reports ongoing pain in his lower extremities. Denies fever, N/V, chest pain, new respiratory symptoms Vital Signs: Temp Pulse Resp BP SpO2 FiO2 98.8 F 73 15 145/72 96 40 06/01/18 11:00 06/01/18 11:00 06/01/18 11:00 06/01/18 10:00 06/01/18 11:00 06/01 08:12 Physical Exam: General: NAD, cooperative HEENT: NCAT, EOMI, neck supple, Mucous membr. moist/pink Lungs: distant but clear breath sounds Cardiovascular: Regular rate, Normal S1, Normal S2 Abdomen: Soft, nontender, obese, normoactive bowel sounds Extremities: No clubbing, No cyanosis, nonpitting edema; chronic skin change with necrosis and erythema. B/l metatarsal amputations Neurological: AAOx 3, CN 2-12 grossly intact Fluid Balance (Past 24 Hours): I= O= Net Intake & Output 05/30/18 05/31/18 06/01/18 06/02/18 06:59 06:59 06:59 06:59 Intake Total 1879.9 3198 3182 Output Total 1150 2905 2220 Balance 729.9 293 962 Weight 446 lb 12.8 oz 467 lb 8 oz Intake: IV Fluids 888.9 2327 942 ABX 332 ABX - CEFEPIME 50 ABX - VANCOMYCIN 255 250 55 LR 518 1219 NS (0.9%) 65.9 476 887 Zosyn 50 IVPB 343 904 ABX - CEFEPIME 50 ABX - VANCOMYCIN 293 500 NS (0.9%) 404 Medicated IV 398 668 86 Propofol 398 668 86 Oral 250 0 1200 Tube Feeding 143 Tube Feeding Flush Amount 50 NG Tube Irrigate Amount 60 Output: NG Tube Drainage Amount 1250 Urine 700 950 Guzmán 450 1530 1270 Liquid Stool 125 ADLs: Meal Record Start: 05/29/18 16: 44 Freq: 09,,18 Status: Active Protocol: Created 05/29/18 16:44 System (Rec: 05/29/18 16:44 System ICU-L03) Document 05/30/18 09:00 [id number] (Rec: 05/30/18 09:14 [id number] ICU-C15) Document 05/30/18 13:00 [id number] (Rec: 05/30/18 13:02 [id number] ICU-C15) Document 05/30/18 18:00 [id number] (Rec: 05/30/18 18:07 [id number] ICU-C15) Document 05/31/18 18:00 [id number] (Rec: 06/01/18 01:16 [id number] ICU-C16) Intake and Output Start: 05/29/18 12: 15 Freq: Status: Active Protocol: Created 05/29/18 12:15 System (Rec: 05/29/18 12:15 System ED-C26) Intake and Output Start: 05/29/18 16: 44 Freq: 06,14,2200 Status: Active Protocol: Created 05/29/18 16:44 System (Rec: 05/29/18 16:44 System ICU-L03) Document 05/29/18 17:00 [id number] (Rec: 05/29/18 18:06 [id number] ICU-C25) Document 05/29/18 18:00 [id number] (Rec: 05/29/18 18:06 [id number] ICU-C25) Document 05/29/18 23:50 [id number] (Rec: 05/29/18 23:50 [id number] ICU-C15) Document 05/30/18 00:45 ILR6621 (Rec: 05/30/18 00:45 [id number] ICU-M22) Document 05/30/18 02:00 VXJ0206 (Rec: 05/30/18 02:10 [id number] ICU-M22) Document 05/30/18 02:58 [id number] (Rec: 05/30/18 02:58 [id number] ICU-M22) Document 05/30/18 04:00 [id number] (Rec: 05/30/18 04:34 [id number] ICU-L03) Document 05/30/18 05:00 [id number] (Rec: 05/30/18 05:07 [id number] ICU-M22) Document 05/30/18 06:00 SNY2189 (Rec: 05/30/18 06:10 [id number] ICU-M22) Document 05/30/18 07:00 [id number] (Rec: 05/30/18 07:13 [id number] ICU-C15) Document 05/30/18 07:36 [id number] (Rec: 05/30/18 07:36 KIA0181 ICU-C15) Document 05/30/18 09:02 [id number] (Rec: 05/30/18 09:02 [id number] ICU-M22) Document 05/30/18 10:00 KKU4052 (Rec: 05/30/18 10:30 [id number] ICU-C15) Document 05/30/18 11:00 EHO0432 (Rec: 05/30/18 11:16 [id number] ICU-C15) Document 05/30/18 12:00 KZS5387 (Rec: 05/30/18 12:22 [id number] ICU-C15) Document 05/30/18 13:00 [id number] (Rec: 05/30/18 13:02 [id number] ICU-C15) Document 05/30/18 14:00 [id number] (Rec: 05/30/18 14:20 [id number] ICU-C15) Document 05/30/18 15:00 [id number] (Rec: 05/30/18 15:10 [id number] ICU-C15) Document 05/30/18 15:46 [id number] (Rec: 05/30/18 15:46 [id number] ICU-C15) Document 05/30/18 17:00 [id number] (Rec: 05/30/18 17:26 JCP1194 ICU-C15) Document 05/30/18 18:00 VUC1146 (Rec: 05/30/18 18:07 [id number] ICU-C15) Document 05/30/18 20:00 AKZ8414 (Rec: 05/30/18 20:13 [id number] ICU-C15) Document 05/30/18 23:00 NTC1324 (Rec: 05/30/18 23:49 NVK9739 ICU-C15) Document 05/31/18 01:18 [id number] (Rec: 05/31/18 01:18 [id number] ICU-M22) Document 05/31/18 04:00 [id number] (Rec: 05/31/18 04:12 [id number] ICU-C15) Document 05/31/18 06:00 [id number] (Rec: 05/31/18 06:15 [id number] ICU-M22) Document 05/31/18 06:00 [id number] (Rec: 05/31/18 06:18 [id number] ICU-M22) Document 05/31/18 08:00 [id number] (Rec: 05/31/18 08:02 [id number] ICU-C25) Document 05/31/18 09:00 [id number] (Rec: 05/31/18 09:31 [id number] ICU-C25) Document 05/31/18 10:00 [id number] (Rec: 05/31/18 10:47 [id number] ICU-C25) Document 05/31/18 11:00 TBI7121 (Rec: 05/31/18 11:57 BIC0355 ICU-C25) Document 05/31/18 11:57 [id number] (Rec: 05/31/18 11:57 [id number] ICU-C25) Document 05/31/18 13:00 [id number] (Rec: 05/31/18 13:17 [id number] ICU-C25) Document 05/31/18 14:00 [id number] (Rec: 05/31/18 14:15 [id number] ICU-C25) Document 05/31/18 15:52 [id number] (Rec: 05/31/18 15:52 [id number] ICU-M22) Document 05/31/18 23:45 [id number] (Rec: 05/31/18 23:45 [id number] ICU-C14) Document 06/01/18 05:20 [id number] (Rec: 06/01/18 05:20 [id number] ICU-C14) Labs: Laboratory Results - last 24 hr 05/31/18 05/31/18 05/31/18 12:43 20:14 22:17 WBC RBC Hgb Hct MCV MCH MCHC RDW Plt Count MPV Neut % (Auto) Lymph % (Auto) Isabella % (Auto) Eos % (Auto) Baso % (Auto) Absolute Neuts (auto) Absolute Lymphs (auto) Absolute Monos (auto) Absolute Eos (auto) Absolute Basos (auto) Absolute Nucleated RBC Nucleated RBC % Sodium Potassium Chloride Carbon Dioxide Anion Gap BUN Creatinine Est GFR ( Amer) Est GFR (Non-Af Amer) BUN/Creatinine Ratio Glucose POC Glucose (mg/dL) 117 H 226 H 159 H Calcium Phosphorus Magnesium 06/01/18 06/01/18 06/01/18 05:14 05:14 08:54 WBC 5.5 RBC 4.54 Hgb 12.5 L Hct 39 MCV 87 MCH 28 MCHC 32 RDW 18 H Plt Count 170 MPV 9.0 Neut % (Auto) 70.8 Lymph % (Auto) 18.6 Isabella % (Auto) 7.5 Eos % (Auto) 2.4 Baso % (Auto) 0.7 Absolute Neuts (auto) 3.9 Absolute Lymphs (auto) 1.0 Absolute Monos (auto) 0.4 Absolute Eos (auto) 0.1 Absolute Basos (auto) 0 Absolute Nucleated RBC 0 Nucleated RBC % 0.1 Sodium 141 Potassium 4.0 Chloride 104 Carbon Dioxide 34 H Anion Gap 3 BUN 23 Creatinine 0.87 Est GFR ( Amer) 107.6 Est GFR (Non-Af Amer) 88.9 BUN/Creatinine Ratio 26.4 H Glucose 138 H POC Glucose (mg/dL) 124 H Calcium 8.4 L Phosphorus 3.7 Magnesium 2.1 Nutrition: Restricted unrestricted 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 Morbid obesity Chronic venous stasis of LE with lymphedema and acute on chronic cellulits s/p bilateral metatarsal amputations VTE (DVT, PE) AF on chronic anticoagulation with Xarelto OHS/JAIDEN with BiPAP use at home nightly Sick sinus syndrome status post pacemaker placement CHF Diarrhea Plan: Acute respiratory failure due to hypercapnia/hypoxemia PNA COPD OHS/JAIDEN with BiPAP -intubated 05/30 -extubated 05/31 - continue with BD - Recommend continue with chest physiotherapy with bed percussion q6h - on mucinex - continue with vanc and zosyn x 7 days - continue with home trilogy prn and nocturnally Hyperglycemia improved FSBG ac/hs 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 Sanchez. No need for standing debridement Wound care recs: bilateral LE's. Wash legs with soap and water daily. Apply oil emulsion to bilateral LEs. Apply calcium alginate over the open areas (with the oil emulsion applied first), followed by ABD pads, khushi wraps and SYLVIA wraps. Change dressing daily. PT/OT eval pending continue with vanc and zosyn started prn oxycodone 5 mg and tylenol 650 mg. Continue with gabapentin VTE (DVT, PE) AF on chronic anticoagulation with Xarelto on xarelto Sick sinus syndrome status post pacemaker placement improved bradycardia after extubation CHF no suggestion of acute decompensation continue with lasix daily- change from 20 mg IV to 20 mg po Torsemide today Diarrhea likely due to TF however interaction from antibiotics cannot be r/o vs infection vs inflammatory on flexiseal - pending Cdiff PCR, fecal WBC - 1 X Immodium - Discontinue flexiseal when stools are more formed GI ppx: H2B-->discontinued On bowel regimen DVT ppx: on xarelto Discontinue guzmán Dispo: Stable for transfer to CRITICAL CARE TIME: 55 MINUTES
[2018-06-01] MEDS: oxyCODONE TAB* 5 MG TAB PO PRN ×2 (13:13→20:52)
[2018-06-01] MEDS: Famotidine TAB* 20 MG PO SCH (20:52)
[2018-06-01] MEDS: VANCOMYCIN PO SOLN* 125 MG/5ML 25 MG/ML PO SCH (20:55)
[2018-06-01] MEDS: Rivaroxaban TAB(*) 20 MG TAB PO SCH (20:55)
[2018-06-02] MEDS: Vancomycin(*) 1,000 MG in NS 0.9% 250 ML* 250 ML IVPB SCH ×4 (00:41→23:34)
--- NOTE | 2018-06-02 04:10 | PN ---
Progress Note - Progress Note Date of Service: 06/02/18 Note: Patient c/o of dysuria - will order U/A.
[2018-06-02] MEDS: Acetaminophen TAB* 325 MG PO PRN ×2 (04:31→20:17)
[2018-06-02] MEDS: oxyCODONE TAB* 5 MG TAB PO PRN ×2 (04:31→20:17)
[2018-06-02 05:15] LABS: Urine Appearance Clear; Urine Bacteria Absent (Absent); Urine Bilirubin Negative (Negative); Urine Blood 2+ (Negative); Urine Color Yellow; Urine Glucose Negative (Negative); Urine Ketones Negative (Negative); Urine Nitrite Negative (Negative); Urine Protein Negative (Negative); Urine Red Blood Cell 3+(>10/hpf) (Absent); Urine Specific Gravity 1.019 (1.010-1.030); Urine Squamous Epithelial Cell Present (Absent); Urine Urobilinogen Negative (Negative); Urine White Blood Cell 3+(>20/hpf) (Absent)
[2018-06-02 06:21] LABS: BUN/Creatinine Ratio 22.7 (8-20); Calcium 8.6 mg/dL (8.6-10.3); EGFR African American 127.7 (>60); EGFR Non-African American 105.5 (>60); Magnesium 1.9 mg/dL (1.9-2.7); Phosphorus 3.3 mg/dL (2.5-5.0); Potassium 4.2 mmol/L (3.5-5.0)
[2018-06-02] MEDS: ZOSYN 3.375 GM Q8H per EXTENDED INFUSION IVPB SCH ×2 (07:23)
[2018-06-02] MEDS ORDERED: Vancomycin Trough Check NOTE FOLLOW UP ONE (07:30)
[2018-06-02] MEDS: Albuterol/Ipratropium NEB.SOL* Albuterol 2.5 MG/Ipratropium 0.5 MG 3 ML INH PRN (09:50)
[2018-06-02] MEDS: guaiFENesin ER TAB 600 MG PO SCH ×4 (09:54→20:17)
[2018-06-02] MEDS: Aspirin EC TAB* 81 MG TAB.EC PO SCH (09:54)
[2018-06-02] MEDS: Famotidine TAB* 20 MG PO SCH ×2 (09:54→20:16)
[2018-06-02] MEDS: Gabapentin CAP(*) 100 MG PO SCH ×2 (09:54→20:17)
[2018-06-02] MEDS: Potassium Chloride LIQUID* 20 MEQ PACKET PO SCH (09:54)
[2018-06-02] MEDS: Torsemide TAB* 20 MG PO SCH (09:54)
[2018-06-02] MEDS: VANCOMYCIN PO SOLN* 125 MG/5ML 25 MG/ML PO SCH ×2 (10:02→12:28)
[2018-06-02] MEDS: cefTRIAXone(*) 1 GM in NS 0.9% 50 ML* 50 ML IVPB SCH (12:27)
--- NOTE | 2018-06-02 15:58 | PN ---
Subjective Date of Service: 06/02/18 Interval History: Patient has continued SOB which is improving. Patient feels as if he is having trouble clearing sputum. Patient has intermittent cough. Patient denies CP, F/C , N/V. Patient has intermittent abdominal pain and frequent loose BMs which are of increased form. Patient has moderate pain in legs, patient states that his legs have looked like they do now previously when edema builds up when unable to elevate. Family History: Unchanged from Admission Social History: Unchanged from Admission Past Medical History: Unchanged from Admission Objective Active Medications: Acetaminophen (Tylenol Tab*) 650 mg PO Q6H PRN PRN Reason: FEVER/PAIN Last Admin: 06/02/18 04:31 Dose: 650 mg Albuterol (Ventolin Hfa Inhaler*) 2 puff INH Q4H PRN PRN Reason: SOB/WHEEZING Albuterol/Ipratropium (Duoneb (Albuterol 2.5 Mg/Ipratropium 0.5 Mg)) 1 neb INH RT.[id number] AWAKE PRN PRN Reason: SOB/WHEEZING Last Admin: 06/02/18 09:50 Dose: 1 neb Aspirin (Aspirin Ec Tab*) 81 mg PO DAILY [facility] Last Admin: 06/02/18 09:54 Dose: 81 mg Dextrose (D50w Syringe 50 Ml*) 12.5 gm IV PUSH .FOR FS < 60 - SS PRN PRN Reason: FS < 60 Diphenhydramine HCl (Benadryl Po*) 25 mg PO Q6H PRN PRN Reason: Allergy Symptoms Famotidine (Pepcid Tab*) 20 mg PO BID [facility] Last Admin: 06/02/18 09:54 Dose: 20 mg Gabapentin (Neurontin Cap(*)) 100 mg PO BID [facility] Last Admin: 06/02/18 09:54 Dose: 100 mg Guaifenesin (Mucinex*) 600 mg PO QID [facility] Last Admin: 06/02/18 12:28 Dose: 600 mg Vancomycin HCl 1,000 mg/ (Sodium Chloride) 250 mls @ 166.667 mls/hr IVPB Q8H [facility] Last Admin: 06/02/18 09:42 Dose: 166.667 mls/hr Ceftriaxone Sodium 1 gm/ (Sodium Chloride) 50 mls @ 200 mls/hr IVPB Q24H [facility] Last Admin: 06/02/18 12:27 Dose: 200 mls/hr Nitroglycerin (Nitroglycerin Tab 0.4 Mg*) 0.4 mg SL Q5M PRN PRN Reason: chest pain Ondansetron HCl (Zofran Inj*) 4 mg IV Q6H PRN PRN Reason: NAUSEA Oxycodone HCl (Roxycodone Tab*) 5 mg PO Q6H PRN PRN Reason: PAIN Last Admin: 06/02/18 04:31 Dose: 5 mg Pharmacy Consult (Vancomycin Per Pharmacy*) 1 note FOLLOW UP . PRN PRN Reason: PER PROTOCOL Potassium Chloride (Klor-Con Liquid*) 20 meq PO DAILY [facility] Last Admin: 06/02/18 09:54 Dose: 20 meq Rivaroxaban (Xarelto(*)) 20 mg PO BEDTIME [facility] Last Admin: 06/01/18 20:55 Dose: 20 mg Torsemide (Demadex*) 20 mg PO DAILY [facility] Last Admin: 06/02/18 09:54 Dose: 20 mg Vancomycin HCl (Vancomycin Cap*) 125 mg PO QID [facility] Vital Signs - 8 hr 06/02/18 06/02/18 06/02/18 08:00 09:39 09:54 Temperature 97.8 F Pulse Rate 70 Respiratory 20 18 20 Rate Blood Pressure 144/69 (mmHg) O2 Sat by Pulse 97 Oximetry 06/02/18 06/02/18 11:29 12:29 Temperature 98.3 F Pulse Rate 67 Respiratory 19 18 Rate Blood Pressure 141/68 (mmHg) O2 Sat by Pulse 94 Oximetry Oxygen Devices in Use Now: Nasal Cannula, BiPAP Appearance: Patient is a 62yo who appears stated age and is sitting in the bed in [facility]. Eyes: No Scleral Icterus, PERRLA Ears/Nose/Mouth/Throat: NL Teeth, Lips, Gums, Clear Oropharnyx, Mucous Membranes Moist Neck: NL Appearance and Movements; NL JVP, Trachea Midline Respiratory: Symmetrical Chest Expansion and Respiratory Effort, - - Diminished , Mild expiratory wheezing. Cardiovascular: NL Sounds; No Murmurs; No JVD, RRR, No Edema Abdominal: No Hepatosplenomegaly, - - Hyperactive bowel sounds, diffuse tenderness without guarding. Lymphatic: No Cervical Adenopathy Extremities: No Clubbing, Cyanosis Skin: No Nodules or Sclerosis, - - Chronic venous statis changes with open areas in various stages of healing on B/L LE, consistent with previous exams. Neurological: Alert and Oriented x 3, NL Sensation, NL Muscle Strength and Tone , - - CN II-XII intact. Result Diagrams: 06/01/18 05:14 06/02/18 05:34 Microbiology and Other Data: Microbiology 05/29/18 15:27 Aerobic Blood Culture - Preliminary Blood Venous No Growth Day 2 Anaerobic Blood Culture - Preliminary No Growth Day 2 05/29/18 15:27 Aerobic Blood Culture - Preliminary Blood Venous No Growth Day 2 Anaerobic Blood Culture - Preliminary No Growth Day 2 05/29/18 17:20 Urine Culture - Final Urine Providencia Stuartii Normal [place] 05/30/18 07:35 Nasal Screen MRSA (PCR) - Final Nasal Mrsa Detected 05/29/18 17:40 Influenza Types A,B Antigen - Final Nasal Specimen received for Influenza A/B Molecular testing Assess/Plan/Problems-Billing Assessment: Patient is a 62yo male with a PMH for COPD, JAIDEN, Obesity Hypoventilation, CHF, Chronic Lower Extremity Wounds, who is admitted with acute hypoxic and hypercarbic respiratory failure due to pneumonia, requiring intubation, now extubated and improving. Patient developed C. Diff - Patient Problems (1) Pneumonia Current Visit: Yes Status: Acute Code(s): J18.9 - PNEUMONIA, UNSPECIFIED ORGANISM SNOMED Code(s): 455406508 Comment: - With acute hypoxic and hypercarbic respiratory failure - Previously requiring intubation, extubated on 05/31 - No large component of COPD exacerbation - Continue antibiotics for 7 day course, currently on Vancomycin and Ceftriaxone - Pulmonary toilet - Wean O2 as tolerated (2) C. difficile diarrhea Current Visit: Yes Status: Acute Code(s): A04.72 - ENTEROCOLITIS D/T CLOSTRIDIUM DIFFICILE, NOT SPCF RECUR SNOMED Code(s): 1786378777610 Comment: - Improving on Vancomycin, with abdominal pain and frequent loose stools - Plan on 3 weeks therapy for first occurence - Limit antibiotic use if possible. (3) Obstructive sleep apnea Current Visit: No Status: Acute Code(s): G47.33 - OBSTRUCTIVE SLEEP APNEA ( ADULT) (PEDIATRIC) SNOMED Code(s): 56719181 Comment: - Complicated by dCHF and OHS - Start Trilogy tonight (4) Sick sinus syndrome Current Visit: No Status: Acute Code(s): I49.5 - SICK SINUS SYNDROME SNOMED Code(s): 39309110 Comment: - S/P Pacemaker (5) UTI (urinary tract infection) Current Visit: No Status: Acute Comment: - Symptoms of dysuria likely from guzmán insertion/removal - Repeat culture pending, on broad spectrum antibiotics (6) Wound of lower extremity Current Visit: No Status: Acute Code(s): S81.809A - UNSPECIFIED OPEN WOUND, UNSPECIFIED LOWER LEG, INIT ENCNTR SNOMED Code(s): 352370502 Comment: - Appreciate wound consult - No obvious signs of cellulitis, on vancomycin for Pneumonia, will continue for 7 day course. (7) Chronic respiratory failure Current Visit: No Status: Chronic Code(s): J96.10 - CHRONIC RESPIRATORY FAILURE, UNSP W HYPOXIA OR HYPERCAPNIA SNOMED Code(s): 72358511 Comment: - Due to Obesity hypoventilation and COPD - Chronic hypoxic and hypercarbic . on prn O2 at home - Continue BiPAP at night and supplemental O2 prn at home - Continue PRN inhalers. (8) Diastolic heart failure Current Visit: No Status: Chronic Code(s): I50.30 - UNSPECIFIED DIASTOLIC ( CONGESTIVE) HEART FAILURE SNOMED Code(s): 568919688 Comment: - Chronic. - Continue usual home diuretic regimen. - Appears euvolemic at this time. - Continue home diuretics. (9) History of pulmonary embolism Current Visit: No Status: Chronic Code(s): Z86.711 - PERSONAL HISTORY OF PULMONARY EMBOLISM SNOMED Code(s): 770598440 Comment: - Indefinite Xarelto (10) Obesity hypoventilation syndrome Current Visit: No Status: Chronic Code(s): E66.2 - MORBID (SEVERE) OBESITY WITH ALVEOLAR HYPOVENTILATION SNOMED Code(s): 073161904 Comment: - Continue BiPAP at night with supplemental O2 - Noted perisistent hypercarbia despite supplemental O2 and nightly bipap. Avoid overoxygenation. - Continuous oxygen at this time - Consider ongoing contiuous O2 due to pHTN in the setting of chronic hypoxic lung disease - Trilogy at D/C (11) DVT prophylaxis Current Visit: No Status: Acute Code(s): VSP0423 - SNOMED Code(s): 376369056 Comment: - Sb (12) Full code status Current Visit: No Status: Acute Code(s): Z78.9 - OTHER SPECIFIED HEALTH STATUS SNOMED Code(s): 431745201 Comment: Status and Disposition: Inpatient for Pnuemonia, estimate 2-3 more days.
[2018-06-02] MEDS: Vancomycin CAP* 125 MG CAP PO SCH ×2 (16:41→20:16)
[2018-06-02] MEDS: Rivaroxaban TAB(*) 20 MG TAB PO SCH (20:17)
[2018-06-03 07:23] LABS: ABS Basophils 0 10^3/ul (0-0.2); ABS Eosinophils 0.3 10^3/ul (0-0.6); ABS Lymphocytes 0.9 10^3/ul (1.0-4.8); ABS Monocytes 0.4 10^3/ul (0-0.8); ABS Neutrophils 3.6 10^3/ul (1.5-7.7); ABS Nucleated RBC 0 10^3/ul; Eosinophil % 5.3 %; Hematocrit 42 % (36-46); Hemoglobin 13.5 g/dL (14.0-18.0); Lymphocyte % 17.5 %; Mean Corpuscular HGB Conc 32 g/dL (31-36); Mean Corpuscular Hemoglobin 28 pg (27-31); Mean Corpuscular Volume 87 fL (80-94); Mean Platelet Volume 8.4 fL (7.4-10.4); Nucleated Red Blood Cells % 0; Platelet Count 179 10^3/uL (150-450); Red Blood Count 4.87 10^6 /uL (4.18-5.48); Red Cell Distribution Width 17 % (10.5-15); White Blood Count 5.3 10^3/uL (3.5-10.8)
[2018-06-03 07:34] LABS: EGFR African American 138.3 (>60); EGFR Non-African American 114.3 (>60); Potassium 4.5 mmol/L (3.5-5.0)
[2018-06-03] MEDS: guaiFENesin ER TAB 600 MG PO SCH ×4 (08:18→20:53)
[2018-06-03] MEDS: Aspirin EC TAB* 81 MG TAB.EC PO SCH (08:18)
[2018-06-03] MEDS: Vancomycin(*) 1,000 MG in NS 0.9% 250 ML* 250 ML IVPB SCH ×2 (08:18→16:20)
[2018-06-03] MEDS: Vancomycin CAP* 125 MG CAP PO SCH ×4 (08:18→20:53)
[2018-06-03] MEDS: Torsemide TAB* 20 MG PO SCH (08:18)
[2018-06-03] MEDS: Potassium Chloride LIQUID* 20 MEQ PACKET PO SCH (08:18)
[2018-06-03] MEDS: Famotidine TAB* 20 MG PO SCH ×2 (08:19→20:52)
[2018-06-03] MEDS: Gabapentin CAP(*) 100 MG PO SCH ×2 (08:19→20:52)
[2018-06-03] MEDS: Potassium Chlor TAB* 20 MEQ TAB.ER PO SCH (10:30)
[2018-06-03] MEDS ORDERED: Furosemide IV* 10 MG/ML 2 ML VIAL (20 MG) IV SLOW PU ONE (10:40)
[2018-06-03] MEDS: cefTRIAXone(*) 1 GM in NS 0.9% 50 ML* 50 ML IVPB SCH (10:59)
--- NOTE | 2018-06-03 17:21 | PN ---
Subjective Date of Service: 06/03/18 Interval History: Patient feels persistently SOB. Patient denies CP, F/C, N/V. Patient has persistent loose stools and abdominal cramping and dysuria consistent with previous episodes of having his guzmán removed. Patient denies dizziness. Family History: Unchanged from Admission Social History: Unchanged from Admission Past Medical History: Unchanged from Admission Objective Active Medications: Acetaminophen (Tylenol Tab*) 650 mg PO Q6H PRN PRN Reason: FEVER/PAIN Last Admin: 06/02/18 20:17 Dose: 650 mg Albuterol (Ventolin Hfa Inhaler*) 2 puff INH Q4H PRN PRN Reason: SOB/WHEEZING Albuterol/Ipratropium (Duoneb (Albuterol 2.5 Mg/Ipratropium 0.5 Mg)) 1 neb INH [id number] AWAKE PRN PRN Reason: SOB/WHEEZING Last Admin: 06/02/18 09:50 Dose: 1 neb Aspirin (Aspirin Ec Tab*) 81 mg PO DAILY [facility] Last Admin: 06/03/18 08:18 Dose: 81 mg Dextrose (D50w Syringe 50 Ml*) 12.5 gm IV PUSH .FOR FS < 60 - SS PRN PRN Reason: FS < 60 Diphenhydramine HCl (Benadryl Po*) 25 mg PO Q6H PRN PRN Reason: Allergy Symptoms Famotidine (Pepcid Tab*) 20 mg PO BID [facility] Last Admin: 06/03/18 08:19 Dose: 20 mg Gabapentin (Neurontin Cap(*)) 100 mg PO BID [facility] Last Admin: 06/03/18 08:19 Dose: 100 mg Guaifenesin (Mucinex*) 600 mg PO QID [facility] Last Admin: 06/03/18 16:21 Dose: 600 mg Vancomycin HCl 1,000 mg/ (Sodium Chloride) 250 mls @ 166.667 mls/hr IVPB Q8H [facility] Last Admin: 06/03/18 16:20 Dose: 166.667 mls/hr Ceftriaxone Sodium 1 gm/ (Sodium Chloride) 50 mls @ 200 mls/hr IVPB Q24H [facility] Last Admin: 06/03/18 10:59 Dose: 200 mls/hr Nitroglycerin (Nitroglycerin Tab 0.4 Mg*) 0.4 mg SL Q5M PRN PRN Reason: chest pain Ondansetron HCl (Zofran Inj*) 4 mg IV Q6H PRN PRN Reason: NAUSEA Oxycodone HCl (Roxycodone Tab*) 5 mg PO Q6H PRN PRN Reason: PAIN Last Admin: 06/02/18 20:17 Dose: 5 mg Pharmacy Consult (Vancomycin Per Pharmacy*) 1 note FOLLOW UP . PRN PRN Reason: PER PROTOCOL Potassium Chloride (Klor Con Er Tab*) 20 meq PO DAILY [facility] Stop: 06/04/18 09:01 Last Admin: 06/03/18 10:30 Dose: Not Given Rivaroxaban (Xarelto(*)) 20 mg PO BEDTIME [facility] Last Admin: 06/02/18 20:17 Dose: 20 mg Torsemide (Demadex*) 40 mg PO DAILY [facility] Vancomycin HCl (Vancomycin Cap*) 125 mg PO QID [facility] Last Admin: 06/03/18 16:21 Dose: 125 mg Vital Signs - 8 hr 06/03/18 06/03/18 06/03/18 10:31 11:38 15:43 Temperature 97.7 F 98.6 F Pulse Rate 69 72 Respiratory 20 16 20 Rate Blood Pressure 151/65 143/62 (mmHg) O2 Sat by Pulse 90 92 Oximetry Oxygen Devices in Use Now: Nasal Cannula, BiPAP Appearance: Patient is a 62yo male who appears stated age and is sitting in the bed in [facility]. Eyes: No Scleral Icterus, PERRLA Ears/Nose/Mouth/Throat: NL Teeth, Lips, Gums, Clear Oropharnyx, Mucous Membranes Moist Neck: NL Appearance and Movements; NL JVP, Trachea Midline Respiratory: Symmetrical Chest Expansion and Respiratory Effort, - - Diminished throughout, Solitary expiratory wheeze in RUL. Cardiovascular: NL Sounds; No Murmurs; No JVD, RRR Abdominal: NL Sounds; No Tenderness; No Distention, No Hepatosplenomegaly Lymphatic: No Cervical Adenopathy Extremities: No Edema, No Clubbing, Cyanosis Skin: No Nodules or Sclerosis, - - LE wounds not visualized today. Neurological: Alert and Oriented x 3, NL Sensation, NL Muscle Strength and Tone , - - CN II-XII intact. Result Diagrams: 06/03/18 07:11 06/03/18 07:11 Microbiology and Other Data: Microbiology 05/29/18 15:27 Aerobic Blood Culture - Preliminary Blood Venous No Growth Day 2 Anaerobic Blood Culture - Preliminary No Growth Day 2 05/29/18 15:27 Aerobic Blood Culture - Preliminary Blood Venous No Growth Day 2 Anaerobic Blood Culture - Preliminary No Growth Day 2 05/29/18 17:20 Urine Culture - Final Urine Providencia Stuartii Normal [place] 05/30/18 07:35 Nasal Screen MRSA (PCR) - Final Nasal Mrsa Detected 05/29/18 17:40 Influenza Types A,B Antigen - Final Nasal Specimen received for Influenza A/B Molecular testing Assess/Plan/Problems-Billing Assessment: Patient is a 62yo male with a PMH for COPD, JAIDEN, Obesity Hypoventilation, CHF, Chronic Lower Extremity Wounds, who is admitted with acute hypoxic and hypercarbic respiratory failure due to pneumonia, requiring intubation, now extubated and improving. Patient developed C. Diff - Patient Problems (1) Pneumonia Current Visit: Yes Status: Acute Code(s): J18.9 - PNEUMONIA, UNSPECIFIED ORGANISM SNOMED Code(s): 910152577 Comment: - With acute hypoxic and hypercarbic respiratory failure - Previously requiring intubation, extubated on 05/31 - No large component of COPD exacerbation - Continue antibiotics for 7 day course, currently on Vancomycin and Ceftriaxone - Pulmonary toilet - Wean O2 as tolerated - Likely fluid overloaded, will increase torsemide and give 1x dose of lasix. (2) C. difficile diarrhea Current Visit: Yes Status: Acute Code(s): A04.72 - ENTEROCOLITIS D/T CLOSTRIDIUM DIFFICILE, NOT SPCF RECUR SNOMED Code(s): 7507383039760 Comment: - Improving on Vancomycin, with abdominal pain and frequent loose stools - Plan on 3 weeks therapy for first occurence - Limit antibiotic use if possible. (3) Obstructive sleep apnea Current Visit: No Status: Acute Code(s): G47.33 - OBSTRUCTIVE SLEEP APNEA ( ADULT) (PEDIATRIC) SNOMED Code(s): 89423599 Comment: - Complicated by dCHF and OHS - Trilogy when available, BiPAP in the hospital (4) Sick sinus syndrome Current Visit: No Status: Acute Code(s): I49.5 - SICK SINUS SYNDROME SNOMED Code(s): 92688703 Comment: - S/P Pacemaker (5) UTI (urinary tract infection) Current Visit: No Status: Acute Comment: - Symptoms of dysuria likely from guzmán insertion/removal - Repeat culture negative, on broad spectrum antibiotics (6) Wound of lower extremity Current Visit: No Status: Acute Code(s): S81.809A - UNSPECIFIED OPEN WOUND, UNSPECIFIED LOWER LEG, INIT ENCNTR SNOMED Code(s): 082187748 Comment: - Appreciate wound consult - Continue daily dressing changes with petroleum gauze, calcium aglinate, kerlix and abd pads - Keep legs elevated. - No obvious signs of cellulitis, on vancomycin for Pneumonia, will continue for 7 day course. (7) Chronic respiratory failure Current Visit: No Status: Chronic Code(s): J96.10 - CHRONIC RESPIRATORY FAILURE, UNSP W HYPOXIA OR HYPERCAPNIA SNOMED Code(s): 44076869 Comment: - Due to Obesity hypoventilation and COPD - Chronic hypoxic and hypercarbic . on prn O2 at home - Continue BiPAP at night and supplemental O2 prn at home - Continue PRN inhalers. (8) Diastolic heart failure Current Visit: No Status: Chronic Code(s): I50.30 - UNSPECIFIED DIASTOLIC ( CONGESTIVE) HEART FAILURE SNOMED Code(s): 153020097 Comment: - Chronic. - CXR shows worsening pulmonary edema - Increase home torsemide and give 1x Lasix 40mg IV. (9) History of pulmonary embolism Current Visit: No Status: Chronic Code(s): Z86.711 - PERSONAL HISTORY OF PULMONARY EMBOLISM SNOMED Code(s): 345778251 Comment: - Indefinite Xarelto (10) Obesity hypoventilation syndrome Current Visit: No Status: Chronic Code(s): E66.2 - MORBID (SEVERE) OBESITY WITH ALVEOLAR HYPOVENTILATION SNOMED Code(s): 338655047 Comment: - Continue BiPAP at night with supplemental O2 - Noted perisistent hypercarbia despite supplemental O2 and nightly bipap. Avoid overoxygenation. - Continuous oxygen at this time - Consider ongoing contiuous O2 due to pHTN in the setting of chronic hypoxic lung disease - Trilogy at D/C (11) DVT prophylaxis Current Visit: No Status: Acute Code(s): IPI6632 - SNOMED Code(s): 180570915 Comment: - Xarelto (12) Full code status Current Visit: No Status: Acute Code(s): Z78.9 - OTHER SPECIFIED HEALTH STATUS SNOMED Code(s): 019611606 Comment: Status and Disposition: Inpatient for Pnuemonia, Possible discharge Wednesday. Patient will need hospital bed delivered before going home.
[2018-06-03] MEDS: oxyCODONE TAB* 5 MG TAB PO PRN (20:51)
[2018-06-03] MEDS: Acetaminophen TAB* 325 MG PO PRN (20:53)
[2018-06-03] MEDS: Rivaroxaban TAB(*) 20 MG TAB PO SCH (20:54)
[2018-06-04] MEDS ORDERED: NS 0.9% 250 ML* 250 ML ONE (01:09)
[2018-06-04] MEDS: Vancomycin(*) 1,000 MG in NS 0.9% 250 ML* 250 ML IVPB SCH ×3 (01:13→16:16)
[2018-06-04 06:54] LABS: BUN/Creatinine Ratio 25.7 (8-20); Calcium 9.1 mg/dL (8.6-10.3); EGFR African American 138.3 (>60); EGFR Non-African American 114.3 (>60); Potassium 4.1 mmol/L (3.5-5.0)
[2018-06-04] MEDS: Aspirin EC TAB* 81 MG TAB.EC PO SCH (09:14)
[2018-06-04] MEDS: Torsemide TAB* 20 MG PO SCH (09:14)
[2018-06-04] MEDS: Vancomycin CAP* 125 MG CAP PO SCH ×4 (09:15→20:33)
[2018-06-04] MEDS: Famotidine TAB* 20 MG PO SCH ×2 (09:15→20:33)
[2018-06-04] MEDS: Potassium Chlor TAB* 20 MEQ TAB.ER PO SCH (09:15)
[2018-06-04] MEDS: Gabapentin CAP(*) 100 MG PO SCH ×2 (09:16→20:34)
[2018-06-04] MEDS: guaiFENesin ER TAB 600 MG PO SCH ×4 (09:16→20:34)
[2018-06-04] MEDS ORDERED: Furosemide IV* 10 MG/ML VIAL (40 MG) IV SLOW PU ONE (12:02)
[2018-06-04] MEDS: cefTRIAXone(*) 1 GM in NS 0.9% 50 ML* 50 ML IVPB SCH (12:38)
[2018-06-04] MEDS ORDERED: Spiriva Inhaler DEVICE* 1 EACH DEVICE INH SCH (13:00)
[2018-06-04] MEDS: Tiotropium CAP.INH* CAP.INH/18 MCG (USE ORDER SET !) INH SCH (13:05)
--- NOTE | 2018-06-04 15:26 | PN ---
Subjective Date of Service: 06/04/18 Interval History: Patient appreciates no change in his respiratory status. Patient is still having difficulty with clearing secretions. Patient denies F/C, N/V, abdominal pain, diarrhea, dysuria. Patient has unchanged pain in his LE. Family History: Unchanged from Admission Social History: Unchanged from Admission Past Medical History: Unchanged from Admission Objective Active Medications: Acetaminophen (Tylenol Tab*) 650 mg PO Q6H PRN PRN Reason: FEVER/PAIN Last Admin: 06/03/18 20:53 Dose: 650 mg Albuterol (Ventolin Hfa Inhaler*) 2 puff INH Q4H PRN PRN Reason: SOB/WHEEZING Albuterol/Ipratropium (Duoneb (Albuterol 2.5 Mg/Ipratropium 0.5 Mg)) 1 neb INH [id number] AWAKE PRN PRN Reason: SOB/WHEEZING Last Admin: 06/02/18 09:50 Dose: 1 neb Aspirin (Aspirin Ec Tab*) 81 mg PO DAILY [facility] Last Admin: 06/04/18 09:14 Dose: 81 mg Device (Tiotropium Inhaler Device*) 1 each INH .USE w/ SPIRIVA CAPS [facility] Dextrose (D50w Syringe 50 Ml*) 12.5 gm IV PUSH .FOR FS < 60 - SS PRN PRN Reason: FS < 60 Diphenhydramine HCl (Benadryl Po*) 25 mg PO Q6H PRN PRN Reason: Allergy Symptoms Famotidine (Pepcid Tab*) 20 mg PO BID [facility] Last Admin: 06/04/18 09:15 Dose: 20 mg Gabapentin (Neurontin Cap(*)) 100 mg PO BID [facility] Last Admin: 06/04/18 09:16 Dose: 100 mg Guaifenesin (Mucinex*) 600 mg PO QID [facility] Last Admin: 06/04/18 12:37 Dose: 600 mg Vancomycin HCl 1,000 mg/ (Sodium Chloride) 250 mls @ 166.667 mls/hr IVPB Q8H [facility] Stop: 06/04/18 17:00 Last Admin: 06/04/18 09:18 Dose: 166.667 mls/hr Nitroglycerin (Nitroglycerin Tab 0.4 Mg*) 0.4 mg SL Q5M PRN PRN Reason: chest pain Ondansetron HCl (Zofran Inj*) 4 mg IV Q6H PRN PRN Reason: NAUSEA Oxycodone HCl (Roxycodone Tab*) 5 mg PO Q6H PRN PRN Reason: PAIN Last Admin: 06/03/18 20:51 Dose: 5 mg Pharmacy Consult (Vancomycin Per Pharmacy*) 1 note FOLLOW UP . PRN PRN Reason: PER PROTOCOL Rivaroxaban (Xarelto(*)) 20 mg PO BEDTIME [facility] Last Admin: 06/03/18 20:54 Dose: 20 mg Tiotropium [place] (Spiriva Cap.Inh*) 1 cap INH DAILY [facility] Last Admin: 06/04/18 13:05 Dose: 1 cap Torsemide (Demadex*) 40 mg PO DAILY [facility] Last Admin: 06/04/18 09:14 Dose: 40 mg Vancomycin HCl (Vancomycin Cap*) 125 mg PO QID [facility] Last Admin: 06/04/18 12:37 Dose: 125 mg Vital Signs - 8 hr 06/04/18 06/04/18 06/04/18 08:19 09:16 11:39 Temperature 97.2 F 98.1 F Pulse Rate 62 65 Respiratory 18 18 16 Rate Blood Pressure 133/71 117/69 (mmHg) O2 Sat by Pulse 93 93 Oximetry 06/04/18 06/04/18 06/04/18 11:40 13:16 14:34 Temperature Pulse Rate Respiratory 18 18 18 Rate Blood Pressure (mmHg) O2 Sat by Pulse Oximetry Oxygen Devices in Use Now: Nasal Cannula Appearance: Patient is a 62 yo male who appears older than stated age and is sitting in the bed in [facility]. Eyes: No Scleral Icterus, PERRLA Ears/Nose/Mouth/Throat: NL Teeth, Lips, Gums, Clear Oropharnyx, Mucous Membranes Moist Neck: NL Appearance and Movements; NL JVP, Trachea Midline Respiratory: Symmetrical Chest Expansion and Respiratory Effort, - - Diminished throughout. Solitary wheeze. Cardiovascular: NL Sounds; No Murmurs; No JVD, RRR, No Edema Abdominal: NL Sounds; No Tenderness; No Distention, No Hepatosplenomegaly Lymphatic: No Cervical Adenopathy Extremities: No Edema, No Clubbing, Cyanosis Skin: No Nodules or Sclerosis, - - Lower Extremity wounds not visualized today. Neurological: Alert and Oriented x 3, NL Sensation, NL Muscle Strength and Tone , - - CN II-XII intact. Result Diagrams: 06/03/18 07:11 06/04/18 06:24 Microbiology and Other Data: Microbiology 05/29/18 15:27 Aerobic Blood Culture - Preliminary Blood Venous No Growth Day 2 Anaerobic Blood Culture - Preliminary No Growth Day 2 05/29/18 15:27 Aerobic Blood Culture - Preliminary Blood Venous No Growth Day 2 Anaerobic Blood Culture - Preliminary No Growth Day 2 05/29/18 17:20 Urine Culture - Final Urine Providencia Stuartii Normal [place] 05/30/18 07:35 Nasal Screen MRSA (PCR) - Final Nasal Mrsa Detected 05/29/18 17:40 Influenza Types A,B Antigen - Final Nasal Specimen received for Influenza A/B Molecular testing Assess/Plan/Problems-Billing Assessment: Patient is a 62yo male with a PMH for COPD, JAIDEN, Obesity Hypoventilation, CHF, Chronic Lower Extremity Wounds, who is admitted with acute hypoxic and hypercarbic respiratory failure due to pneumonia, requiring intubation, now extubated and improving. Patient developed C. Diff - Patient Problems (1) Pneumonia Current Visit: Yes Status: Acute Code(s): J18.9 - PNEUMONIA, UNSPECIFIED ORGANISM SNOMED Code(s): 028476093 Comment: - With acute hypoxic and hypercarbic respiratory failure - Previously requiring intubation, extubated on 05/31 - No large component of COPD exacerbation - Antibiotics finished today - Pulmonary toilet - Wean O2 as tolerated - Likely fluid overloaded, will increase torsemide and give 1x dose of lasix for second day. (2) C. difficile diarrhea Current Visit: Yes Status: Acute Code(s): A04.72 - ENTEROCOLITIS D/T CLOSTRIDIUM DIFFICILE, NOT SPCF RECUR SNOMED Code(s): 8860461040044 Comment: - Improving on Vancomycin, with abdominal pain and frequent loose stools - Plan on 3 weeks therapy for first occurence - Finished antibiotics (3) Obstructive sleep apnea Current Visit: No Status: Acute Code(s): G47.33 - OBSTRUCTIVE SLEEP APNEA ( ADULT) (PEDIATRIC) SNOMED Code(s): 75785623 Comment: - Complicated by dCHF and OHS - Trilogy when available, BiPAP in the hospital with 3L O2 (4) Sick sinus syndrome Current Visit: No Status: Acute Code(s): I49.5 - SICK SINUS SYNDROME SNOMED Code(s): 34411164 Comment: - S/P Pacemaker (5) UTI (urinary tract infection) Current Visit: No Status: Acute Comment: - Symptoms of dysuria likely from guzmán insertion/removal - Repeat culture negative finished full course of antibiotics. (6) Wound of lower extremity Current Visit: No Status: Acute Code(s): S81.809A - UNSPECIFIED OPEN WOUND, UNSPECIFIED LOWER LEG, INIT ENCNTR SNOMED Code(s): 000377259 Comment: - Appreciate wound consult - Continue daily dressing changes with petroleum gauze, calcium aglinate, kerlix and abd pads - Keep legs elevated. - No obvious signs of cellulitis, finished 7 days vancomycin. (7) Chronic respiratory failure Current Visit: No Status: Chronic Code(s): J96.10 - CHRONIC RESPIRATORY FAILURE, UNSP W HYPOXIA OR HYPERCAPNIA SNOMED Code(s): 34529405 Comment: - Due to Obesity hypoventilation and COPD - Chronic hypoxic and hypercarbic . on prn O2 at home - Continue BiPAP at night and supplemental O2 prn at home - Continue PRN inhalers. (8) Diastolic heart failure Current Visit: No Status: Chronic Code(s): I50.30 - UNSPECIFIED DIASTOLIC ( CONGESTIVE) HEART FAILURE SNOMED Code(s): 582326594 Comment: - Chronic. - CXR shows worsening pulmonary edema - Continue Torsemide to 4omg and give 1x Lasix 40mg IV for second day. (9) History of pulmonary embolism Current Visit: No Status: Chronic Code(s): Z86.711 - PERSONAL HISTORY OF PULMONARY EMBOLISM SNOMED Code(s): 818848619 Comment: - Indefinite Xarelto (10) Obesity hypoventilation syndrome Current Visit: No Status: Chronic Code(s): E66.2 - MORBID (SEVERE) OBESITY WITH ALVEOLAR HYPOVENTILATION SNOMED Code(s): 143663454 Comment: - Continue BiPAP at night with supplemental O2 - Noted perisistent hypercarbia despite supplemental O2 and nightly bipap. Avoid overoxygenation. - Continuous oxygen at this time - Consider ongoing contiuous O2 due to pHTN in the setting of chronic hypoxic lung disease - Trilogy at D/C (11) DVT prophylaxis Current Visit: No Status: Acute Code(s): LYT4757 - SNOMED Code(s): 825627731 Comment: - Sb (12) Full code status Current Visit: No Status: Acute Code(s): Z78.9 - OTHER SPECIFIED HEALTH STATUS SNOMED Code(s): 113849604 Comment: Status and Disposition: Inpatient for Pnuemonia, Possible discharge Wednesday. Patient will need hospital bed delivered before going home.
[2018-06-04] MEDS: Lactobacillus Acidophilus* 1 TAB PO SCH (16:16)
[2018-06-04] MEDS: Rivaroxaban TAB(*) 20 MG TAB PO SCH (20:35)
[2018-06-04] MEDS: Acetaminophen TAB* 325 MG PO PRN (20:39)
[2018-06-04] MEDS: oxyCODONE TAB* 5 MG TAB PO PRN (20:39)
[2018-06-05 05:49] LABS: ABS Basophils 0 10^3/ul (0-0.2); ABS Eosinophils 0.4 10^3/ul (0-0.6); ABS Lymphocytes 1.3 10^3/ul (1.0-4.8); ABS Monocytes 0.6 10^3/ul (0-0.8); ABS Neutrophils 4.4 10^3/ul (1.5-7.7); ABS Nucleated RBC 0 10^3/ul; Eosinophil % 5.4 %; Hematocrit 46 % (36-46); Hemoglobin 14.8 g/dL (14.0-18.0); Lymphocyte % 18.9 %; Mean Corpuscular HGB Conc 32 g/dL (31-36); Mean Corpuscular Hemoglobin 28 pg (27-31); Mean Corpuscular Volume 86 fL (80-94); Mean Platelet Volume 8.4 fL (7.4-10.4); Nucleated Red Blood Cells % 0.1; Platelet Count 207 10^3/uL (150-450); Red Blood Count 5.37 10^6 /uL (4.18-5.48); Red Cell Distribution Width 17 % (10.5-15); White Blood Count 6.7 10^3/uL (3.5-10.8)
[2018-06-05 06:06] LABS: BUN/Creatinine Ratio 28.9 (8-20); Calcium 9.8 mg/dL (8.6-10.3); EGFR African American 125.8 (>60); EGFR Non-African American 103.9 (>60); Magnesium 1.9 mg/dL (1.9-2.7)
[2018-06-05] MEDS: Tiotropium CAP.INH* CAP.INH/18 MCG (USE ORDER SET !) INH SCH (08:49)
[2018-06-05] MEDS: Aspirin EC TAB* 81 MG TAB.EC PO SCH (09:09)
[2018-06-05] MEDS: Famotidine TAB* 20 MG PO SCH ×2 (09:09→20:46)
[2018-06-05] MEDS: Gabapentin CAP(*) 100 MG PO SCH ×2 (09:09→20:46)
[2018-06-05] MEDS: Lactobacillus Acidophilus* 1 TAB PO SCH (09:10)
[2018-06-05] MEDS: Torsemide TAB* 20 MG PO SCH (09:10)
[2018-06-05] MEDS: guaiFENesin ER TAB 600 MG PO SCH ×4 (09:10→20:46)
[2018-06-05] MEDS: Vancomycin CAP* 125 MG CAP PO SCH ×4 (09:11→20:45)
--- NOTE | 2018-06-05 11:00 | PN ---
Subjective Date of Service: 06/05/18 Interval History: . Patient reports he is feeling better everyday. Reports diarrhea is pretty much resolved. reports his last stool was more formed. 1 stool/day. Denies fever/ chills/abdominal pain. Denies SOB/CP. Family History: Unchanged from Admission Social History: Unchanged from Admission Past Medical History: Unchanged from Admission Objective Active Medications: Acetaminophen (Tylenol Tab*) 650 mg PO Q6H PRN PRN Reason: FEVER/PAIN Last Admin: 06/04/18 20:39 Dose: 650 mg Albuterol (Ventolin Hfa Inhaler*) 2 puff INH Q4H PRN PRN Reason: SOB/WHEEZING Albuterol/Ipratropium (Duoneb (Albuterol 2.5 Mg/Ipratropium 0.5 Mg)) 1 neb INH [id number] AWAKE PRN PRN Reason: SOB/WHEEZING Last Admin: 06/02/18 09:50 Dose: 1 neb Aspirin (Aspirin Ec Tab*) 81 mg PO DAILY [facility] Last Admin: 06/05/18 09:09 Dose: 81 mg Device (Tiotropium Inhaler Device*) 1 each INH .USE w/ SPIRIVA CAPS [facility] Dextrose (D50w Syringe 50 Ml*) 12.5 gm IV PUSH .FOR FS < 60 - SS PRN PRN Reason: FS < 60 Diphenhydramine HCl (Benadryl Po*) 25 mg PO Q6H PRN PRN Reason: Allergy Symptoms Famotidine (Pepcid Tab*) 20 mg PO BID [facility] Last Admin: 06/05/18 09:09 Dose: 20 mg Gabapentin (Neurontin Cap(*)) 100 mg PO BID [facility] Last Admin: 06/05/18 09:09 Dose: 100 mg Guaifenesin (Mucinex*) 600 mg PO QID [facility] Last Admin: 06/05/18 09:10 Dose: 600 mg Lactobacillus Rhamnosus (Lactobacillus Acidophilus*) 1 tab PO DAILY [facility] Last Admin: 06/05/18 09:10 Dose: 1 tab Nitroglycerin (Nitroglycerin Tab 0.4 Mg*) 0.4 mg SL Q5M PRN PRN Reason: chest pain Ondansetron HCl (Zofran Inj*) 4 mg IV Q6H PRN PRN Reason: NAUSEA Oxycodone HCl (Roxycodone Tab*) 5 mg PO Q6H PRN PRN Reason: PAIN Last Admin: 06/04/18 20:39 Dose: 5 mg Pharmacy Consult (Vancomycin Per Pharmacy*) 1 note FOLLOW UP . PRN PRN Reason: PER PROTOCOL Rivaroxaban (Xarelto(*)) 20 mg PO BEDTIME [facility] Last Admin: 06/04/18 20:35 Dose: 20 mg Tiotropium [place] (Spiriva Cap.Inh*) 1 cap INH DAILY [facility] Last Admin: 06/05/18 08:49 Dose: 1 cap Torsemide (Demadex*) 40 mg PO DAILY [facility] Last Admin: 06/05/18 09:10 Dose: 40 mg Vancomycin HCl (Vancomycin Cap*) 125 mg PO QID [facility] Last Admin: 06/05/18 09:11 Dose: 125 mg Vital Signs - 8 hr 06/05/18 06/05/18 06/05/18 04:19 08:06 08:54 Temperature 98.4 F 97.5 F Pulse Rate 58 62 73 Respiratory 16 20 16 Rate Blood Pressure 138/69 151/76 (mmHg) O2 Sat by Pulse 93 97 92 Oximetry 06/05/18 06/05/18 09:09 09:52 Temperature Pulse Rate Respiratory 18 18 Rate Blood Pressure (mmHg) O2 Sat by Pulse Oximetry Oxygen Devices in Use Now: Nasal Cannula Appearance: morbidly obese male A+0 x3 in NAD Eyes: No Scleral Icterus, PERRLA Respiratory: Symmetrical Chest Expansion and Respiratory Effort, Clear to Auscultation Cardiovascular: NL Sounds; No Murmurs; No JVD, RRR Abdominal: - - morbidly obese Extremities: - - b/l s/p transmetarsal amputation Neurological: Alert and Oriented x 3 Lines/Tubes/Other Access: Clean, Dry and Intact Peripheral IV Nutrition: Taking PO's Result Diagrams: 06/05/18 05:30 06/05/18 05:30 Microbiology and Other Data: Microbiology 05/29/18 15:27 Aerobic Blood Culture - Preliminary Blood Venous No Growth Day 2 Anaerobic Blood Culture - Preliminary No Growth Day 2 05/29/18 15:27 Aerobic Blood Culture - Preliminary Blood Venous No Growth Day 2 Anaerobic Blood Culture - Preliminary No Growth Day 2 05/29/18 17:20 Urine Culture - Final Urine Providencia Stuartii Normal [place] 05/30/18 07:35 Nasal Screen MRSA (PCR) - Final Nasal Mrsa Detected 05/29/18 17:40 Influenza Types A,B Antigen - Final Nasal Specimen received for Influenza A/B Molecular testing Assess/Plan/Problems-Billing Assessment: Patient is a 62yo male with a PMH for COPD, JAIDEN, Obesity Hypoventilation, CHF, Chronic Lower Extremity Wounds, who is admitted with acute hypoxic and hypercarbic respiratory failure due to pneumonia, requiring intubation, now extubated and improving. Patient developed C. Diff - Patient Problems (1) Pneumonia Comment: - With acute hypoxic and hypercarbic respiratory failure requiring intubation, extubated on 05/31. Co2 44 today - pt flucuates. Goal for O2 sat 88-93% is patients vaseline - was on 4L NC with O2 sat 96% - discussed with nursing staff to titrate to patients baseline to prevent hypercapnia. - COPD - Antibiotics finished - Pulmonary toilet - Wean O2 as tolerated - Likely fluid overloaded, continued increase dose of torsemide and give 1x dose of lasix for second day. (2) Diastolic heart failure Comment: - Chronic - CXR shows worsening pulmonary edema - Continue Torsemide to 40mg (3) Chronic respiratory failure Comment: - Due to Obesity hypoventilation and COPD - Chronic hypoxic and hypercarbic . on prn O2 at home - Continue BiPAP at night and supplemental O2 prn at home - Continue PRN inhalers. (4) C. difficile diarrhea Comment: - Improving on Vancomycin, with abdominal pain and frequent loose stools - Plan on 3 weeks therapy for first occurence, abx started on 06/02 (5) Obstructive sleep apnea Comment: - Complicated by dCHF and OHS - Trilogy when available, BiPAP in the hospital with 3L O2 (6) Sick sinus syndrome Comment: - S/P Pacemaker (7) UTI (urinary tract infection) Comment: - Symptoms of dysuria likely from guzmán insertion/removal - Repeat culture negative finished full course of antibiotics. (8) Wound of lower extremity Comment: - Appreciate wound consult - Continue daily dressing changes with petroleum gauze, calcium aglinate, kerlix and abd pads - Keep legs elevated. - No obvious signs of cellulitis, finished 7 days vancomycin. (9) History of pulmonary embolism Comment: - Indefinite Xarelto (10) Obesity hypoventilation syndrome Comment: - Continue BiPAP at night with supplemental O2 - Noted perisistent hypercarbia despite supplemental O2 and nightly bipap. Avoid overoxygenation. - Continuous oxygen at this time - Consider ongoing contiuous O2 due to pHTN in the setting of chronic hypoxic lung disease - Trilogy at D/C (11) Full code status Comment: Status and Disposition: Inpatient for Pnuemonia. Possible discharge Wednesday. Patient will need hospital bed delivered before going home.
[2018-06-05] MEDS: Rivaroxaban TAB(*) 20 MG TAB PO SCH (20:46)
[2018-06-05] MEDS: oxyCODONE TAB* 5 MG TAB PO PRN (20:47)
[2018-06-05] MEDS: Acetaminophen TAB* 325 MG PO PRN (20:47)
[2018-06-06 06:15] LABS: ABS Basophils 0 10^3/ul (0-0.2); ABS Eosinophils 0.3 10^3/ul (0-0.6); ABS Lymphocytes 1.3 10^3/ul (1.0-4.8); ABS Monocytes 0.7 10^3/ul (0-0.8); ABS Neutrophils 4.1 10^3/ul (1.5-7.7); ABS Nucleated RBC 0 10^3/ul; Eosinophil % 4.4 %; Hematocrit 44 % (36-46); Lymphocyte % 19.9 %; Mean Corpuscular HGB Conc 32 g/dL (31-36); Mean Corpuscular Hemoglobin 28 pg (27-31); Mean Corpuscular Volume 87 fL (80-94); Mean Platelet Volume 8.6 fL (7.4-10.4); Nucleated Red Blood Cells % 0; Platelet Count 188 10^3/uL (150-450); Red Blood Count 5.09 10^6 /uL (4.18-5.48); Red Cell Distribution Width 17 % (10.5-15); White Blood Count 6.4 10^3/uL (3.5-10.8)
[2018-06-06 06:31] LABS: BUN/Creatinine Ratio 28.2 (8-20); Calcium 9.5 mg/dL (8.6-10.3); EGFR African American 110.5 (>60); EGFR Non-African American 91.3 (>60); Potassium 3.9 mmol/L (3.5-5.0)
[2018-06-06] MEDS: Tiotropium CAP.INH* CAP.INH/18 MCG (USE ORDER SET !) INH SCH (08:20)
[2018-06-06] MEDS: Gabapentin CAP(*) 100 MG PO SCH ×2 (09:20→20:50)
[2018-06-06] MEDS: Aspirin EC TAB* 81 MG TAB.EC PO SCH (09:20)
[2018-06-06] MEDS: Famotidine TAB* 20 MG PO SCH ×2 (09:20→20:49)
[2018-06-06] MEDS: guaiFENesin ER TAB 600 MG PO SCH ×4 (09:24→20:49)
[2018-06-06] MEDS: Lactobacillus Acidophilus* 1 TAB PO SCH ×2 (09:24→20:48)
[2018-06-06] MEDS: Torsemide TAB* 20 MG PO SCH (09:26)
[2018-06-06] MEDS: Vancomycin CAP* 125 MG CAP PO SCH ×4 (09:29→20:49)
--- NOTE | 2018-06-06 14:49 | PN ---
Subjective Date of Service: 06/06/18 Interval History: Pt continues to feel better. Feels that he could go home. Reports diarrhea has resolved but he has been experiencing 1-2 x/day of abdominal cramping the bowel urgency, soft formed stool. Good appetite. No N/V. Denies fever/chills. Family History: Unchanged from Admission Social History: Unchanged from Admission Past Medical History: Unchanged from Admission Objective Active Medications: Acetaminophen (Tylenol Tab*) 650 mg PO Q6H PRN PRN Reason: FEVER/PAIN Last Admin: 06/05/18 20:47 Dose: 650 mg Albuterol (Ventolin Hfa Inhaler*) 2 puff INH Q4H PRN PRN Reason: SOB/WHEEZING Albuterol/Ipratropium (Duoneb (Albuterol 2.5 Mg/Ipratropium 0.5 Mg)) 1 neb INH [id number] AWAKE PRN PRN Reason: SOB/WHEEZING Last Admin: 06/02/18 09:50 Dose: 1 neb Aspirin (Aspirin Ec Tab*) 81 mg PO DAILY [facility] Last Admin: 06/06/18 09:20 Dose: 81 mg Device (Tiotropium Inhaler Device*) 1 each INH .USE w/ SPIRIVA CAPS [facility] Dextrose (D50w Syringe 50 Ml*) 12.5 gm IV PUSH .FOR FS < 60 - SS PRN PRN Reason: FS < 60 Diphenhydramine HCl (Benadryl Po*) 25 mg PO Q6H PRN PRN Reason: Allergy Symptoms Famotidine (Pepcid Tab*) 20 mg PO BID [facility] Last Admin: 06/06/18 09:20 Dose: 20 mg Gabapentin (Neurontin Cap(*)) 100 mg PO BID [facility] Last Admin: 06/06/18 09:20 Dose: 100 mg Guaifenesin (Mucinex*) 600 mg PO QID [facility] Last Admin: 06/06/18 12:36 Dose: 600 mg Lactobacillus Rhamnosus (Lactobacillus Acidophilus*) 1 tab PO DAILY [facility] Last Admin: 06/06/18 09:24 Dose: 1 tab Nitroglycerin (Nitroglycerin Tab 0.4 Mg*) 0.4 mg SL Q5M PRN PRN Reason: chest pain Ondansetron HCl (Zofran Inj*) 4 mg IV Q6H PRN PRN Reason: NAUSEA Oxycodone HCl (Roxycodone Tab*) 5 mg PO Q6H PRN PRN Reason: PAIN Last Admin: 06/05/18 20:47 Dose: 5 mg Rivaroxaban (Xarelto(*)) 20 mg PO BEDTIME [facility] Last Admin: 06/05/18 20:46 Dose: 20 mg Tiotropium [place] (Spiriva Cap.Inh*) 1 cap INH DAILY [facility] Last Admin: 06/06/18 08:20 Dose: 1 cap Torsemide (Demadex*) 40 mg PO DAILY [facility] Last Admin: 06/06/18 09:26 Dose: Not Given Vancomycin HCl (Vancomycin Cap*) 125 mg PO QID [facility] Last Admin: 06/06/18 12:37 Dose: 125 mg Vital Signs - 8 hr 06/06/18 06/06/18 06/06/18 07:53 07:55 08:22 Temperature 98.5 F Pulse Rate 62 60 Respiratory 18 20 18 Rate Blood Pressure 111/65 (mmHg) O2 Sat by Pulse 95 95 Oximetry 06/06/18 06/06/18 09:20 11:16 Temperature 97.6 F Pulse Rate 76 Respiratory 16 16 Rate Blood Pressure 113/54 (mmHg) O2 Sat by Pulse 91 Oximetry Oxygen Devices in Use Now: Nasal Cannula Appearance: obese male sitting up in a chair in NAD, A+Ox3 Eyes: No Scleral Icterus, PERRLA Ears/Nose/Mouth/Throat: NL Teeth, Lips, Gums, Mucous Membranes Moist Respiratory: Symmetrical Chest Expansion and Respiratory Effort, Clear to Auscultation Cardiovascular: NL Sounds; No Murmurs; No JVD, RRR, - - trace to 1+ LE edema Abdominal: NL Sounds; No Tenderness; No Distention, - - obese Neurological: Alert and Oriented x 3 Lines/Tubes/Other Access: Clean, Dry and Intact Peripheral IV Nutrition: Taking PO's Result Diagrams: 06/06/18 05:46 06/06/18 05:46 Microbiology and Other Data: Microbiology 05/29/18 15:27 Aerobic Blood Culture - Preliminary Blood Venous No Growth Day 2 Anaerobic Blood Culture - Preliminary No Growth Day 2 05/29/18 15:27 Aerobic Blood Culture - Preliminary Blood Venous No Growth Day 2 Anaerobic Blood Culture - Preliminary No Growth Day 2 05/29/18 17:20 Urine Culture - Final Urine Providencia Stuartii Normal [place] 05/30/18 07:35 Nasal Screen MRSA (PCR) - Final Nasal Mrsa Detected 05/29/18 17:40 Influenza Types A,B Antigen - Final Nasal Specimen received for Influenza A/B Molecular testing Assess/Plan/Problems-Billing Assessment: Patient is a 62yo male with a PMH for COPD, JAIDEN, Obesity Hypoventilation, CHF, Chronic Lower Extremity Wounds, who is admitted with acute hypoxic and hypercarbic respiratory failure due to pneumonia, requiring intubation. Patient developed C. Diff - Patient Problems (1) Pneumonia Comment: - improving - With acute hypoxic and hypercarbic respiratory failure requiring intubation, extubated on 05/31 - now resolved. -Goal for O2 sat 88-93% is patients baseline -discussed with nursing staff to titrate to patients baseline to prevent hypercapnia. - COPD - Antibiotics finished - Pulmonary toilet - Wean O2 as tolerated (2) Diastolic heart failure Comment: - Chronic - CXR 06/03 shows worsening pulmonary edema - Continue Torsemide to 40mg (3) Chronic respiratory failure Comment: - Due to Obesity hypoventilation and COPD - Chronic hypoxic and hypercarbic . on prn O2 at home - Continue BiPAP at night and supplemental O2 prn at home - Continue PRN inhalers. (4) C. difficile diarrhea Comment: - Improving on Vancomycin, with abdominal pain and frequent loose stools - Plan on 3 weeks therapy for first occurence, abx started on 06/02 (5) Obstructive sleep apnea Comment: - Complicated by dCHF and OHS - Trilogy at home, BiPAP in the hospital with 3L O2 (6) Sick sinus syndrome Comment: - S/P Pacemaker (7) UTI (urinary tract infection) Comment: - Symptoms of dysuria likely from guzmán insertion/removal - Repeat culture negative finished full course of antibiotics. (8) Wound of lower extremity Comment: - Appreciate wound consult - Continue daily dressing changes with petroleum gauze, calcium aglinate, kerlix and abd pads - Keep legs elevated. - No obvious signs of cellulitis, finished 7 days vancomycin. (9) History of pulmonary embolism Comment: - Indefinite Xarelto (10) Obesity hypoventilation syndrome Comment: - Continue BiPAP at night with supplemental O2 - Trilogy set up at home (recently) (11) Full code status Comment: Status and Disposition: Inpatient for Pnuemonia. Patient will need hospital bed delivered before going home.
[2018-06-06] MEDS ORDERED: Torsemide TAB* 20 MG PO ONE (15:23)
[2018-06-06] MEDS: Rivaroxaban TAB(*) 20 MG TAB PO SCH (20:49)
[2018-06-06] MEDS: Acetaminophen TAB* 325 MG PO PRN (20:50)
[2018-06-06] MEDS: oxyCODONE TAB* 5 MG TAB PO PRN (20:51)
[2018-06-07] MEDS: oxyCODONE TAB* 5 MG TAB PO PRN ×2 (06:00→20:55)
[2018-06-07] MEDS: Acetaminophen TAB* 325 MG PO PRN ×2 (06:00→20:57)
[2018-06-07 06:19] LABS: ABS Basophils 0 10^3/ul (0-0.2); ABS Eosinophils 0.3 10^3/ul (0-0.6); ABS Lymphocytes 1.3 10^3/ul (1.0-4.8); ABS Monocytes 0.6 10^3/ul (0-0.8); ABS Neutrophils 3.4 10^3/ul (1.5-7.7); ABS Nucleated RBC 0 10^3/ul; Eosinophil % 4.5 %; Hematocrit 44 % (36-46); Hemoglobin 13.8 g/dL (14.0-18.0); Lymphocyte % 23.1 %; Mean Corpuscular HGB Conc 32 g/dL (31-36); Mean Corpuscular Hemoglobin 28 pg (27-31); Mean Corpuscular Volume 87 fL (80-94); Mean Platelet Volume 8.7 fL (7.4-10.4); Nucleated Red Blood Cells % 0; Platelet Count 181 10^3/uL (150-450); Red Blood Count 5.03 10^6 /uL (4.18-5.48); Red Cell Distribution Width 17 % (10.5-15); White Blood Count 5.6 10^3/uL (3.5-10.8)
[2018-06-07 06:40] LABS: BUN/Creatinine Ratio 29.7 (8-20); Calcium 9.4 mg/dL (8.6-10.3); EGFR African American 129.7 (>60); EGFR Non-African American 107.2 (>60)
[2018-06-07] MEDS: Tiotropium CAP.INH* CAP.INH/18 MCG (USE ORDER SET !) INH SCH (07:30)
[2018-06-07] MEDS: guaiFENesin ER TAB 600 MG PO SCH ×4 (08:21→20:55)
[2018-06-07] MEDS: Lactobacillus Acidophilus* 1 TAB PO SCH ×2 (08:21→20:55)
[2018-06-07] MEDS: Vancomycin CAP* 125 MG CAP PO SCH ×4 (08:21→20:55)
[2018-06-07] MEDS: Gabapentin CAP(*) 100 MG PO SCH ×2 (08:21→20:56)
[2018-06-07] MEDS: Famotidine TAB* 20 MG PO SCH ×2 (08:21→20:56)
[2018-06-07] MEDS: Aspirin EC TAB* 81 MG TAB.EC PO SCH (08:21)
[2018-06-07] MEDS: Torsemide TAB* 20 MG PO SCH (08:21)
--- NOTE | 2018-06-07 14:56 | PN ---
Subjective Date of Service: 06/07/18 Interval History: patient feels frustrated that he may have to go to subacute rehab as he was found to have some weakness beyond his baseline with PT. He feels that the hospital walker is much different than his and will try to have family bring in his walker thinking this could make a difference. He offers no complaints stating he feels ready to go home. He reports his abdominal cramping was better today. Denies diarrhea. No fevers or chills. Denies SOB. Family History: Unchanged from Admission Social History: Unchanged from Admission Past Medical History: Unchanged from Admission Objective Active Medications: Acetaminophen (Tylenol Tab*) 650 mg PO Q6H PRN PRN Reason: FEVER/PAIN Last Admin: 06/07/18 06:00 Dose: 650 mg Albuterol (Ventolin Hfa Inhaler*) 2 puff INH Q4H PRN PRN Reason: SOB/WHEEZING Albuterol/Ipratropium (Duoneb (Albuterol 2.5 Mg/Ipratropium 0.5 Mg)) 1 neb INH [id number] AWAKE PRN PRN Reason: SOB/WHEEZING Last Admin: 06/02/18 09:50 Dose: 1 neb Aspirin (Aspirin Ec Tab*) 81 mg PO DAILY [facility] Last Admin: 06/07/18 08:21 Dose: 81 mg Device (Tiotropium Inhaler Device*) 1 each INH .USE w/ SPIRIVA CAPS [facility] Dextrose (D50w Syringe 50 Ml*) 12.5 gm IV PUSH .FOR FS < 60 - SS PRN PRN Reason: FS < 60 Diphenhydramine HCl (Benadryl Po*) 25 mg PO Q6H PRN PRN Reason: Allergy Symptoms Famotidine (Pepcid Tab*) 20 mg PO BID [facility] Last Admin: 06/07/18 08:21 Dose: 20 mg Gabapentin (Neurontin Cap(*)) 100 mg PO BID [facility] Last Admin: 06/07/18 08:21 Dose: 100 mg Guaifenesin (Mucinex*) 600 mg PO QID [facility] Last Admin: 06/07/18 12:38 Dose: 600 mg Lactobacillus Rhamnosus (Lactobacillus Acidophilus*) 1 tab PO BID [facility] Last Admin: 06/07/18 08:21 Dose: 1 tab Nitroglycerin (Nitroglycerin Tab 0.4 Mg*) 0.4 mg SL Q5M PRN PRN Reason: chest pain Ondansetron HCl (Zofran Inj*) 4 mg IV Q6H PRN PRN Reason: NAUSEA Oxycodone HCl (Roxycodone Tab*) 5 mg PO Q6H PRN PRN Reason: PAIN Last Admin: 06/07/18 06:00 Dose: 5 mg Rivaroxaban (Xarelto(*)) 20 mg PO BEDTIME [facility] Last Admin: 06/06/18 20:49 Dose: 20 mg Tiotropium [place] (Spiriva Cap.Inh*) 1 cap INH DAILY [facility] Last Admin: 06/07/18 07:30 Dose: 1 cap Torsemide (Demadex*) 40 mg PO DAILY [facility] Last Admin: 06/07/18 08:21 Dose: 40 mg Vancomycin HCl (Vancomycin Cap*) 125 mg PO QID [facility] Last Admin: 06/07/18 12:38 Dose: 125 mg Vital Signs - 8 hr 06/07/18 06/07/18 06/07/18 07:09 07:32 08:21 Temperature 97.4 F Pulse Rate 65 66 Respiratory 18 18 16 Rate Blood Pressure 105/61 (mmHg) O2 Sat by Pulse 98 93 Oximetry 06/07/18 06/07/18 09:14 12:23 Temperature 97.4 F 98.3 F Pulse Rate 66 67 Respiratory 16 16 Rate Blood Pressure 105/61 118/56 (mmHg) O2 Sat by Pulse 93 93 Oximetry Oxygen Devices in Use Now: Nasal Cannula Appearance: morbidly obese male A+Ox3 in NAD, sitting up in a chair Eyes: No Scleral Icterus, PERRLA Ears/Nose/Mouth/Throat: NL Teeth, Lips, Gums, Mucous Membranes Moist Neck: NL Appearance and Movements; NL JVP Respiratory: Symmetrical Chest Expansion and Respiratory Effort, Clear to Auscultation Cardiovascular: NL Sounds; No Murmurs; No JVD, RRR Abdominal: - - obese, difficult to ausculate BS Extremities: - - trace edema LE Skin: No Rash or Ulcers, No Nodules or Sclerosis Neurological: Alert and Oriented x 3, NL Muscle Strength and Tone Lines/Tubes/Other Access: Clean, Dry and Intact Peripheral IV Nutrition: Taking PO's Result Diagrams: 06/07/18 05:44 06/07/18 05:44 Microbiology and Other Data: Microbiology 05/29/18 15:27 Aerobic Blood Culture - Preliminary Blood Venous No Growth Day 2 Anaerobic Blood Culture - Preliminary No Growth Day 2 05/29/18 15:27 Aerobic Blood Culture - Preliminary Blood Venous No Growth Day 2 Anaerobic Blood Culture - Preliminary No Growth Day 2 05/29/18 17:20 Urine Culture - Final Urine Providencia Stuartii Normal [place] 05/30/18 07:35 Nasal Screen MRSA (PCR) - Final Nasal Mrsa Detected 05/29/18 17:40 Influenza Types A,B Antigen - Final Nasal Specimen received for Influenza A/B Molecular testing Assess/Plan/Problems-Billing Assessment: Patient is a 62yo male with a PMH for COPD, JAIDEN, Obesity Hypoventilation, CHF, Chronic Lower Extremity Wounds, who is admitted with acute hypoxic and hypercarbic respiratory failure due to pneumonia, requiring intubation. Patient developed C. Diff - Patient Problems (1) Pneumonia Comment: - Resolved - With acute hypoxic and hypercarbic respiratory failure requiring intubation, extubated on 05/31 - now resolved. -Goal for O2 sat 88-93% is patients baseline -discussed with nursing staff to titrate to patients baseline to prevent hypercapnia. - COPD - Antibiotics finished - Pulmonary toilet - Wean O2 as tolerated (2) Diastolic heart failure Comment: - Chronic - CXR 06/03 shows worsening pulmonary edema - Continue Torsemide to 40mg (3) Chronic respiratory failure Comment: - Due to Obesity hypoventilation and COPD - Chronic hypoxic and hypercarbic . on prn O2 at home - Continue BiPAP at night and supplemental O2 prn at home - Continue PRN inhalers. (4) C. difficile diarrhea Comment: - Improving on Vancomycin, with abdominal pain and frequent loose stools - Plan on 3 weeks therapy for first occurence, abx started on 06/02 (5) Obstructive sleep apnea Comment: - Complicated by dCHF and OHS - Trilogy at home, BiPAP in the hospital with 3L O2 (6) Sick sinus syndrome Comment: - S/P Pacemaker (7) UTI (urinary tract infection) Comment: - Repeat culture negative finished full course of antibiotics. (8) Wound of lower extremity Comment: - Appreciate wound consult - Continue daily dressing changes with petroleum gauze, calcium aglinate, kerlix and abd pads - Keep legs elevated. - No obvious signs of cellulitis, finished 7 days vancomycin. (9) History of pulmonary embolism Comment: - Indefinite Xarelto (10) Obesity hypoventilation syndrome Comment: - Continue BiPAP at night with supplemental O2 - Trilogy set up at home (recently) (11) Full code status Comment: Status and Disposition: Inpatient for Pneumonia. Patient is medically stable for discharge. Patient has been waiting for new hospital bed to be delivered to home- Now talk of sending to subacute rehab short term for weakness. I have encouraged the patient to have family bring in his walker. PMRU? Case management was looking into this.
[2018-06-07] MEDS: Rivaroxaban TAB(*) 20 MG TAB PO SCH (20:56)
[2018-06-08] MEDS: Tiotropium CAP.INH* CAP.INH/18 MCG (USE ORDER SET !) INH SCH (07:22)
[2018-06-08] MEDS: Acetaminophen TAB* 325 MG PO PRN ×2 (08:23→23:42)
[2018-06-08] MEDS: Aspirin EC TAB* 81 MG TAB.EC PO SCH (08:23)
[2018-06-08] MEDS: Vancomycin CAP* 125 MG CAP PO SCH ×4 (08:23→22:11)
[2018-06-08] MEDS: Torsemide TAB* 20 MG PO SCH (08:23)
[2018-06-08] MEDS: Gabapentin CAP(*) 100 MG PO SCH ×2 (08:23→22:11)
[2018-06-08] MEDS: Lactobacillus Acidophilus* 1 TAB PO SCH ×2 (08:23→22:10)
[2018-06-08] MEDS: Famotidine TAB* 20 MG PO SCH ×2 (08:23→22:11)
[2018-06-08] MEDS: guaiFENesin ER TAB 600 MG PO SCH ×4 (08:23→22:12)
--- NOTE | 2018-06-08 11:54 | PN ---
Subjective Date of Service: 06/08/18 Interval History: Mr. Shafer is a 62 yo male with PMH significant for DVT/PE, obesity hypoventilation syndrome with BiPAP use at bedtime, SSS s/p pacemaker placement , bilateral LE lymphedema, HF, and COPD. Mr. Shafer has been admitted in the hospital since 05/29/18, initially he had respiratory failure and required intubation due to PNA. He presented to the hospital with bilateral LE wounds. He was seen by general surgery when he was first admitted and was felt to have edematous infective dermatitis. He has developed cdiff colitis during his hospital stay. He was seen last week for a wound consultation and at that time it was recommended to use oil emulsion dressings to the legs followed by calcium alginate at the areas that were open and draining. According to NSG staff the hospital ran out of oil emulsion and he was changed to vaseline gauze dressings instead of the oil emulsion dressings. Denies fever, chills, pain in legs. Mr. Shafer feels like overall his legs are looking better this week. Patient seen and examined at bedside. Family History: Unchanged from Admission Social History: Unchanged from Admission Past Medical History: Unchanged from Admission Objective Active Medications: Acetaminophen (Tylenol Tab*) 650 mg PO Q6H PRN Reason: FEVER/PAIN Albuterol (Ventolin Hfa Inhaler*) 2 puff INH Q4H PRN Reason: SOB/WHEEZING Albuterol/Ipratropium (Duoneb (Albuterol 2.5 Mg/Ipratropium 0.5 Mg)) 1 neb INH [id number] AWAKE PRN Reason: SOB/WHEEZING Aspirin (Aspirin Ec Tab*) 81 mg PO DAILY [facility] Device (Tiotropium Inhaler Device*) 1 each INH .USE w/ SPIRIVA CAPS [facility] Dextrose (D50w Syringe 50 Ml*) 12.5 gm IV PUSH .FOR FS < 60 - SS PRN Reason: FS < 60 Diphenhydramine HCl (Benadryl Po*) 25 mg PO Q6H PRN Reason: Allergy Symptoms Famotidine (Pepcid Tab*) 20 mg PO BID [facility] Gabapentin (Neurontin Cap(*)) 100 mg PO BID [facility] Guaifenesin (Mucinex*) 600 mg PO QID [facility] Lactobacillus Rhamnosus (Lactobacillus Acidophilus*) 1 tab PO BID [facility] Nitroglycerin (Nitroglycerin Tab 0.4 Mg*) 0.4 mg SL Q5M PRN Reason: chest pain Ondansetron HCl (Zofran Inj*) 4 mg IV Q6H PRN Reason: NAUSEA Oxycodone HCl (Roxycodone Tab*) 5 mg PO Q6H PRN Reason: PAIN Rivaroxaban (Xarelto(*)) 20 mg PO BEDTIME [facility] Tiotropium [place] (Spiriva Cap.Inh*) 1 cap INH DAILY [facility] Torsemide (Demadex*) 40 mg PO DAILY [facility] Vancomycin HCl (Vancomycin Cap*) 125 mg PO QID [facility] Vital Signs - 8 hr 06/08/18 06/08/18 06/08/18 07:24 08:00 08:07 Temperature 98.2 F Pulse Rate 66 64 Respiratory 18 20 21 Rate Blood Pressure 131/67 (mmHg) O2 Sat by Pulse 98 92 Oximetry 06/08/18 08:23 Temperature Pulse Rate Respiratory 16 Rate Blood Pressure (mmHg) O2 Sat by Pulse Oximetry Oxygen Devices in Use Now: Nasal Cannula Appearance: NAD, sitting up in bed Ears/Nose/Mouth/Throat: Mucous Membranes Moist Skin: - - See skin note below Neurological: Alert and Oriented x 3 Result Diagrams: 06/15/18 08:32 06/15/18 08:32 Microbiology and Other Data: Microbiology 05/29/18 15:27 Aerobic Blood Culture - Preliminary Blood Venous No Growth Day 2 Anaerobic Blood Culture - Preliminary No Growth Day 2 05/29/18 15:27 Aerobic Blood Culture - Preliminary Blood Venous No Growth Day 2 Anaerobic Blood Culture - Preliminary No Growth Day 2 05/29/18 17:20 Urine Culture - Final Urine Providencia Stuartii Normal [place] 05/30/18 07:35 Nasal Screen MRSA (PCR) - Final Nasal Mrsa Detected 05/29/18 17:40 Influenza Types A,B Antigen - Final Nasal Specimen received for Influenza A/B Molecular testing Skin Deviation Note - Skin Deviation Findings Left medial lower leg - The skin appears to be macerated. There are areas of dark colored tissue, this does not appear to be necrotic tissue or eschar. There is some erythema to the leg. Right medial lower leg - There are several superficial open areas. The surrounding skin appears to be macerated and has erythema. There is also dark colored tissue, this does not appear to be necrotic tissue or eschar. Overall the amount of dark colored tissue has decreased this week. The wound bases are beefy red with granulation tissue. Right lateral lower leg - There are several superficial open areas, measuring 12 cm x 11 cm x 0.1 cm, 4.5 cm x 2.5 cm x 0.1 cm, 2 cm x 1.5 cm. The surrounding skin appears to be macerated and has erythema. There is also dark colored tissue, this does not appear to be necrotic tissue or eschar. The wound bases are beefy red with granulation tissue. Assessment/Plan Mr. Shafer is a 62 yo male with PMH significant for DVT/PE, obesity hypoventilation syndrome with BiPAP use at bedtime, SSS s/p pacemaker placement , bilateral LE lymphedema, HF and COPD. He presented to the hospital with complaints of SOB and weeping LE wounds. He was treated for possible cellulitis and c-diff colitis. 1. Bilateral LEs with superficial open areas and dermatitis. Known history of venous stasis and follows with the [facility] wound clinic. The wounds appear to be macerated this week. Recommend washing the legs with soap and water daily. Left leg dressing: Recommend applying rolled gauze and SYLVIA wrap to the left LE as there are no open areas seen. Right leg dressing: Recommend applying calcium alginate to the open area, rolled gauze and SYLVIA wrap. If the calcium alginate is sticking to the wounds, apply oil emulsion gauze to the open areas, followed by the calcium alginate, rolled gauze and SYLVIA wrap. 2. Morbid obesity with obesity hypoventilation syndrome. 3. Chronic bilateral LE lymphedema with history of venous stasis ulcers. 4. Diabetes mellitus, type 2. HgA1C was 6.1 in 06/2017. Could consider rechecking a HgA1C. Maintain good glycemic control to allow for wound healing. 5. Diet. Consistent carbohydrate diet. 6. Code Status. Full code. 7. Disposition. Disposition per primary medicine team. TIME SPENT: Time for this wound consultation was 25 minutes and 15 minutes was spent with the patient assessing,, measuring, and photographing the wounds. Wound Problem/Plan Is Patient a Wound Clinic Patient: Yes - [facility] wound clinic Current Treatment: Wash legs daily with doap and water, apply A+D, rolled gauze and SYLVIA wraps. Attending: Nina Gilman
--- NOTE | 2018-06-08 15:26 | PN ---
Subjective Date of Service: 06/08/18 Interval History: Mr. Shafer feels pretty good, he has no complaints except that he is upset that a SNF is being considered. He is very disappointed about this. He has no pain , no shortness of breath, no nausea, vomiting. Diarrhea is improving, though he does note occasional abdominal cramping. Family History: Unchanged from Admission Social History: Unchanged from Admission Past Medical History: Unchanged from Admission Objective Active Medications: Acetaminophen (Tylenol Tab*) 650 mg PO Q6H PRN PRN Reason: FEVER/PAIN Last Admin: 06/08/18 08:23 Dose: 650 mg Albuterol (Ventolin Hfa Inhaler*) 2 puff INH Q4H PRN PRN Reason: SOB/WHEEZING Albuterol/Ipratropium (Duoneb (Albuterol 2.5 Mg/Ipratropium 0.5 Mg)) 1 neb INH [id number] AWAKE PRN PRN Reason: SOB/WHEEZING Last Admin: 06/02/18 09:50 Dose: 1 neb Aspirin (Aspirin Ec Tab*) 81 mg PO DAILY [facility] Last Admin: 06/08/18 08:23 Dose: 81 mg Device (Tiotropium Inhaler Device*) 1 each INH .USE w/ SPIRIVA CAPS [facility] Dextrose (D50w Syringe 50 Ml*) 12.5 gm IV PUSH .FOR FS < 60 - SS PRN PRN Reason: FS < 60 Diphenhydramine HCl (Benadryl Po*) 25 mg PO Q6H PRN PRN Reason: Allergy Symptoms Famotidine (Pepcid Tab*) 20 mg PO BID [facility] Last Admin: 06/08/18 08:23 Dose: 20 mg Gabapentin (Neurontin Cap(*)) 100 mg PO BID [facility] Last Admin: 06/08/18 08:23 Dose: 100 mg Guaifenesin (Mucinex*) 600 mg PO QID [facility] Last Admin: 06/08/18 14:05 Dose: 600 mg Lactobacillus Rhamnosus (Lactobacillus Acidophilus*) 1 tab PO BID [facility] Last Admin: 06/08/18 08:23 Dose: 1 tab Nitroglycerin (Nitroglycerin Tab 0.4 Mg*) 0.4 mg SL Q5M PRN PRN Reason: chest pain Ondansetron HCl (Zofran Inj*) 4 mg IV Q6H PRN PRN Reason: NAUSEA Rivaroxaban (Xarelto(*)) 20 mg PO BEDTIME [facility] Last Admin: 06/07/18 20:56 Dose: 20 mg Tiotropium [place] (Spiriva Cap.Inh*) 1 cap INH DAILY [facility] Last Admin: 06/08/18 07:22 Dose: 1 cap Torsemide (Demadex*) 40 mg PO DAILY [facility] Last Admin: 06/08/18 08:23 Dose: 40 mg Vancomycin HCl (Vancomycin Cap*) 125 mg PO QID [facility] Last Admin: 06/08/18 14:05 Dose: 125 mg Vital Signs - 8 hr 06/08/18 06/08/18 06/08/18 07:24 08:00 08:07 Temperature 98.2 F Pulse Rate 66 64 Respiratory 18 20 21 Rate Blood Pressure 131/67 (mmHg) O2 Sat by Pulse 98 92 Oximetry 06/08/18 06/08/18 06/08/18 08:23 11:43 12:56 Temperature 97.5 F Pulse Rate 64 Respiratory 16 16 18 Rate Blood Pressure 118/66 (mmHg) O2 Sat by Pulse 93 Oximetry 06/08/18 14:10 Temperature 97.0 F Pulse Rate 78 Respiratory 18 Rate Blood Pressure 115/66 (mmHg) O2 Sat by Pulse 93 Oximetry Oxygen Devices in Use Now: Nasal Cannula Appearance: alert, resting in bed comfortably Eyes: No Scleral Icterus Ears/Nose/Mouth/Throat: NL Teeth, Lips, Gums Neck: NL Appearance and Movements; NL JVP Cardiovascular: - - harsh systolic murmur throughout Abdominal: - - obese, soft nontender Lymphatic: No Cervical Adenopathy Extremities: - - 3+ edema b/l with erythema to shins Skin: - - superficial erythematous re[place] wounds Neurological: Alert and Oriented x 3 Result Diagrams: 06/07/18 05:44 06/07/18 05:44 Microbiology and Other Data: Microbiology 05/29/18 15:27 Aerobic Blood Culture - Preliminary Blood Venous No Growth Day 2 Anaerobic Blood Culture - Preliminary No Growth Day 2 05/29/18 15:27 Aerobic Blood Culture - Preliminary Blood Venous No Growth Day 2 Anaerobic Blood Culture - Preliminary No Growth Day 2 05/29/18 17:20 Urine Culture - Final Urine Providencia Stuartii Normal [place] 05/30/18 07:35 Nasal Screen MRSA (PCR) - Final Nasal Mrsa Detected 05/29/18 17:40 Influenza Types A,B Antigen - Final Nasal Specimen received for Influenza A/B Molecular testing Assess/Plan/Problems-Billing Assessment: Patient is a 62yo male with a PMH for COPD, JAIDEN, Obesity Hypoventilation, CHF, Chronic Lower Extremity Wounds, who is admitted with acute hypoxic and hypercarbic respiratory failure due to pneumonia, requiring intubation. Patient developed C. Diff - Patient Problems (1) C. difficile diarrhea Current Visit: Yes Status: Acute Code(s): A04.72 - ENTEROCOLITIS D/T CLOSTRIDIUM DIFFICILE, NOT SPCF RECUR SNOMED Code(s): 0386183219329 Comment: continue PO vanc, started on 06/02 (2) Obstructive sleep apnea Current Visit: Yes Status: Acute Code(s): G47.33 - OBSTRUCTIVE SLEEP APNEA ( ADULT) (PEDIATRIC) SNOMED Code(s): 85589147 Comment: Complicated by dCHF and OHS Trilogy at home, BiPAP in the hospital with 3L O2 (3) Pneumonia Current Visit: Yes Status: Acute Code(s): J18.9 - PNEUMONIA, UNSPECIFIED ORGANISM SNOMED Code(s): 186178822 Comment: Resolved With acute hypoxic and hypercarbic respiratory failure requiring intubation, extubated on 05/31 - now resolved. Wean O2 as tolerated (4) Wound of lower extremity Current Visit: Yes Status: Acute Code(s): S81.809A - UNSPECIFIED OPEN WOUND , UNSPECIFIED LOWER LEG, INIT ENCNTR SNOMED Code(s): 765492931 Comment: seen by kay this morning (5) Chronic respiratory failure Current Visit: Yes Status: Chronic Code(s): J96.10 - CHRONIC RESPIRATORY FAILURE, UNSP W HYPOXIA OR HYPERCAPNIA SNOMED Code(s): 37083305 Comment: Due to Obesity hypoventilation and COPD Chronic hypoxic and hypercarbic . on prn O2 at home Continue PRN inhalers. (6) Obesity hypoventilation syndrome Current Visit: Yes Status: Chronic Code(s): E66.2 - MORBID (SEVERE) OBESITY WITH ALVEOLAR HYPOVENTILATION SNOMED Code(s): 270456479 Comment: Continue BiPAP at night with supplemental O2 (7) Sick sinus syndrome Current Visit: Yes Status: Chronic Code(s): I49.5 - SICK SINUS SYNDROME SNOMED Code(s): 95322826 Comment: pacer is in place Status and Disposition: Inpatient for Pneumonia. Patient is medically stable for discharge. Patient has been waiting for new hospital bed to be delivered to home- Now talk of sending to subacute rehab short term for weakness. case management following.
[2018-06-08 16:42] LABS: Zinc 0.83 mcg/mL (0.66-1.10)
[2018-06-08] MEDS: Rivaroxaban TAB(*) 20 MG TAB PO SCH (22:11)
[2018-06-08] MEDS: oxyCODONE TAB* 5 MG TAB PO PRN (23:41)
[2018-06-09] MEDS: Gabapentin CAP(*) 100 MG PO SCH ×2 (08:12→21:56)
[2018-06-09] MEDS: Torsemide TAB* 20 MG PO SCH (08:12)
[2018-06-09] MEDS: Aspirin EC TAB* 81 MG TAB.EC PO SCH (08:12)
[2018-06-09] MEDS: Acetaminophen TAB* 325 MG PO PRN ×2 (08:13→21:57)
[2018-06-09] MEDS: Famotidine TAB* 20 MG PO SCH ×2 (08:13→21:58)
[2018-06-09] MEDS: Lactobacillus Acidophilus* 1 TAB PO SCH ×2 (08:13→21:57)
[2018-06-09] MEDS: guaiFENesin ER TAB 600 MG PO SCH ×4 (08:13→21:58)
[2018-06-09] MEDS: Vancomycin CAP* 125 MG CAP PO SCH ×4 (08:14→21:56)
[2018-06-09] MEDS: Tiotropium CAP.INH* CAP.INH/18 MCG (USE ORDER SET !) INH SCH (10:02)
--- NOTE | 2018-06-09 15:55 | PN ---
Subjective Date of Service: 06/09/18 Interval History: Mild cough. No SOB. No more diarrhea. No new c/o. Family History: Unchanged from Admission Social History: Unchanged from Admission Past Medical History: Unchanged from Admission Objective Active Medications: Acetaminophen (Tylenol Tab*) 650 mg PO Q6H PRN PRN Reason: FEVER/PAIN Last Admin: 06/09/18 08:13 Dose: 650 mg Albuterol (Ventolin Hfa Inhaler*) 2 puff INH Q4H PRN PRN Reason: SOB/WHEEZING Albuterol/Ipratropium (Duoneb (Albuterol 2.5 Mg/Ipratropium 0.5 Mg)) 1 neb INH [id number] AWAKE PRN PRN Reason: SOB/WHEEZING Last Admin: 06/02/18 09:50 Dose: 1 neb Aspirin (Aspirin Ec Tab*) 81 mg PO DAILY [facility] Last Admin: 06/09/18 08:12 Dose: 81 mg Device (Tiotropium Inhaler Device*) 1 each INH .USE w/ SPIRIVA CAPS [facility] Dextrose (D50w Syringe 50 Ml*) 12.5 gm IV PUSH .FOR FS < 60 - SS PRN PRN Reason: FS < 60 Diphenhydramine HCl (Benadryl Po*) 25 mg PO Q6H PRN PRN Reason: Allergy Symptoms Famotidine (Pepcid Tab*) 20 mg PO BID [facility] Last Admin: 06/09/18 08:13 Dose: 20 mg Gabapentin (Neurontin Cap(*)) 100 mg PO BID [facility] Last Admin: 06/09/18 08:12 Dose: 100 mg Guaifenesin (Mucinex*) 600 mg PO QID [facility] Last Admin: 06/09/18 13:21 Dose: 600 mg Lactobacillus Rhamnosus (Lactobacillus Acidophilus*) 1 tab PO BID [facility] Last Admin: 06/09/18 08:13 Dose: 1 tab Nitroglycerin (Nitroglycerin Tab 0.4 Mg*) 0.4 mg SL Q5M PRN PRN Reason: chest pain Ondansetron HCl (Zofran Inj*) 4 mg IV Q6H PRN PRN Reason: NAUSEA Oxycodone HCl (Roxycodone Tab*) 5 mg PO Q6H PRN PRN Reason: PAIN Last Admin: 06/08/18 23:41 Dose: 5 mg Rivaroxaban (Xarelto(*)) 20 mg PO BEDTIME [facility] Last Admin: 06/08/18 22:11 Dose: 20 mg Tiotropium [place] (Spiriva Cap.Inh*) 1 cap INH DAILY [facility] Last Admin: 06/09/18 10:02 Dose: 1 cap Torsemide (Demadex*) 40 mg PO DAILY [facility] Last Admin: 06/09/18 08:12 Dose: 40 mg Vancomycin HCl (Vancomycin Cap*) 125 mg PO QID [facility] Last Admin: 06/09/18 13:21 Dose: 125 mg Vital Signs - 8 hr 06/09/18 06/09/18 06/09/18 08:00 08:12 08:19 Temperature 98.1 F Pulse Rate 69 Respiratory 16 18 14 Rate Blood Pressure 137/66 (mmHg) O2 Sat by Pulse 90 Oximetry 06/09/18 06/09/18 06/09/18 10:03 11:16 12:15 Temperature 97.8 F Pulse Rate 66 71 Respiratory 18 18 20 Rate Blood Pressure 127/56 (mmHg) O2 Sat by Pulse 94 93 Oximetry Oxygen Devices in Use Now: Nasal Cannula Appearance: Alert, partly up in bed. In good spirits. Looks comfortable. Eyes: No Scleral Icterus Respiratory: Symmetrical Chest Expansion and Respiratory Effort, Clear to Auscultation, Clear to Percussion Cardiovascular: NL Sounds; No Murmurs; No JVD, RRR, No Edema, - Neurological: Alert and Oriented x 3, NL Sensation Result Diagrams: 06/07/18 05:44 06/07/18 05:44 Microbiology and Other Data: Microbiology 05/29/18 15:27 Aerobic Blood Culture - Preliminary Blood Venous No Growth Day 2 Anaerobic Blood Culture - Preliminary No Growth Day 2 05/29/18 15:27 Aerobic Blood Culture - Preliminary Blood Venous No Growth Day 2 Anaerobic Blood Culture - Preliminary No Growth Day 2 05/29/18 17:20 Urine Culture - Final Urine Providencia Stuartii Normal [place] 05/30/18 07:35 Nasal Screen MRSA (PCR) - Final Nasal Mrsa Detected 05/29/18 17:40 Influenza Types A,B Antigen - Final Nasal Specimen received for Influenza A/B Molecular testing Assess/Plan/Problems-Billing Assessment: Patient is a 62yo male with a PMH for COPD, JAIDEN, Obesity Hypoventilation, CHF, Chronic Lower Extremity Wounds, who is admitted with acute hypoxic and hypercarbic respiratory failure due to pneumonia, requiring intubation. Patient developed C. Diff - Patient Problems (1) C. difficile diarrhea Current Visit: Yes Status: Acute Code(s): A04.72 - ENTEROCOLITIS D/T CLOSTRIDIUM DIFFICILE, NOT SPCF RECUR SNOMED Code(s): 7170074663885 Comment: continue PO vanc, started on 06/02 (2) Pneumonia Current Visit: Yes Status: Acute Code(s): J18.9 - PNEUMONIA, UNSPECIFIED ORGANISM SNOMED Code(s): 152961321 Comment: With acute hypoxic and hypercarbic respiratory failure requiring intubation, extubated on 05/31 - now resolved. Wean O2 as tolerated (3) Wound of lower extremity Current Visit: Yes Status: Acute Code(s): S81.809A - UNSPECIFIED OPEN WOUND , UNSPECIFIED LOWER LEG, INIT ENCNTR SNOMED Code(s): 455385603 Comment: Continue local care. (4) Morbid obesity Current Visit: No Status: Acute Code(s): E66.01 - MORBID (SEVERE) OBESITY DUE TO EXCESS CALORIES SNOMED Code(s): 305341915 Comment: - BMI 64.4. (5) Obesity hypoventilation syndrome Current Visit: Yes Status: Chronic Code(s): E66.2 - MORBID (SEVERE) OBESITY WITH ALVEOLAR HYPOVENTILATION SNOMED Code(s): 626458948 Comment: Continue BiPAP at night with supplemental O2 (6) Diastolic heart failure Current Visit: Yes Status: Chronic Code(s): I50.30 - UNSPECIFIED DIASTOLIC ( CONGESTIVE) HEART FAILURE SNOMED Code(s): 854483384 Comment: - Chronic - Continue Torsemide to 40mg Status and Disposition: Inpatient for Pneumonia. Patient is medically stable for discharge. Patient has been waiting for new hospital bed to be delivered to home- Now talk of sending to subacute rehab short term for weakness. case management following.
[2018-06-09] MEDS: Rivaroxaban TAB(*) 20 MG TAB PO SCH (21:56)
[2018-06-10] MEDS: Tiotropium CAP.INH* CAP.INH/18 MCG (USE ORDER SET !) INH SCH (08:30)
[2018-06-10] MEDS: Vancomycin CAP* 125 MG CAP PO SCH ×4 (08:31→21:05)
[2018-06-10] MEDS: Gabapentin CAP(*) 100 MG PO SCH ×2 (08:31→21:06)
[2018-06-10] MEDS: Acetaminophen TAB* 325 MG PO PRN ×2 (08:31→21:05)
[2018-06-10] MEDS: guaiFENesin ER TAB 600 MG PO SCH ×4 (08:31→21:06)
[2018-06-10] MEDS: Torsemide TAB* 20 MG PO SCH (08:31)
[2018-06-10] MEDS: Famotidine TAB* 20 MG PO SCH ×2 (08:31→21:07)
[2018-06-10] MEDS: Aspirin EC TAB* 81 MG TAB.EC PO SCH (08:31)
[2018-06-10] MEDS: Lactobacillus Acidophilus* 1 TAB PO SCH ×2 (08:31→21:05)
--- NOTE | 2018-06-10 10:21 | PN ---
Subjective Date of Service: 06/10/18 Interval History: No new c/o. Family History: Unchanged from Admission Social History: Unchanged from Admission Past Medical History: Unchanged from Admission Objective Active Medications: Acetaminophen (Tylenol Tab*) 650 mg PO Q6H PRN PRN Reason: FEVER/PAIN Last Admin: 06/10/18 08:31 Dose: 650 mg Albuterol (Ventolin Hfa Inhaler*) 2 puff INH Q4H PRN PRN Reason: SOB/WHEEZING Albuterol/Ipratropium (Duoneb (Albuterol 2.5 Mg/Ipratropium 0.5 Mg)) 1 neb INH [id number] AWAKE PRN PRN Reason: SOB/WHEEZING Last Admin: 06/02/18 09:50 Dose: 1 neb Aspirin (Aspirin Ec Tab*) 81 mg PO DAILY [facility] Last Admin: 06/10/18 08:31 Dose: 81 mg Device (Tiotropium Inhaler Device*) 1 each INH .USE w/ SPIRIVA CAPS [facility] Dextrose (D50w Syringe 50 Ml*) 12.5 gm IV PUSH .FOR FS < 60 - SS PRN PRN Reason: FS < 60 Diphenhydramine HCl (Benadryl Po*) 25 mg PO Q6H PRN PRN Reason: Allergy Symptoms Famotidine (Pepcid Tab*) 20 mg PO BID [facility] Last Admin: 06/10/18 08:31 Dose: 20 mg Gabapentin (Neurontin Cap(*)) 100 mg PO BID [facility] Last Admin: 06/10/18 08:31 Dose: 100 mg Guaifenesin (Mucinex*) 600 mg PO QID [facility] Last Admin: 06/10/18 08:31 Dose: 600 mg Lactobacillus Rhamnosus (Lactobacillus Acidophilus*) 1 tab PO BID [facility] Last Admin: 06/10/18 08:31 Dose: 1 tab Nitroglycerin (Nitroglycerin Tab 0.4 Mg*) 0.4 mg SL Q5M PRN PRN Reason: chest pain Ondansetron HCl (Zofran Inj*) 4 mg IV Q6H PRN PRN Reason: NAUSEA Oxycodone HCl (Roxycodone Tab*) 5 mg PO Q6H PRN PRN Reason: PAIN Last Admin: 06/08/18 23:41 Dose: 5 mg Rivaroxaban (Xarelto(*)) 20 mg PO BEDTIME [facility] Last Admin: 06/09/18 21:56 Dose: 20 mg Tiotropium [place] (Spiriva Cap.Inh*) 1 cap INH DAILY [facility] Last Admin: 06/10/18 08:30 Dose: 1 cap Torsemide (Demadex*) 40 mg PO DAILY [facility] Last Admin: 06/10/18 08:31 Dose: 40 mg Vancomycin HCl (Vancomycin Cap*) 125 mg PO QID [facility] Last Admin: 06/10/18 08:31 Dose: 125 mg Vital Signs - 8 hr 06/10/18 06/10/18 06/10/18 04:26 08:17 08:30 Temperature 97.3 F 98.1 F Pulse Rate 65 71 71 Respiratory 16 20 18 Rate Blood Pressure 122/65 118/66 (mmHg) O2 Sat by Pulse 95 92 93 Oximetry 06/10/18 08:31 Temperature Pulse Rate Respiratory 18 Rate Blood Pressure (mmHg) O2 Sat by Pulse Oximetry Oxygen Devices in Use Now: Nasal Cannula Appearance: Alert, partly up in bed. In good spirits. Looks comfortable. Respiratory: Symmetrical Chest Expansion and Respiratory Effort, Clear to Auscultation, Clear to Percussion Cardiovascular: NL Sounds; No Murmurs; No JVD, RRR, No Edema, - Extremities: No Clubbing, Cyanosis, - - 1+ edema BL Skin: No Rash or Ulcers, No Nodules or Sclerosis, - Neurological: Alert and Oriented x 3, NL Sensation Result Diagrams: 06/07/18 05:44 06/07/18 05:44 Microbiology and Other Data: Microbiology 05/29/18 15:27 Aerobic Blood Culture - Preliminary Blood Venous No Growth Day 2 Anaerobic Blood Culture - Preliminary No Growth Day 2 05/29/18 15:27 Aerobic Blood Culture - Preliminary Blood Venous No Growth Day 2 Anaerobic Blood Culture - Preliminary No Growth Day 2 05/29/18 17:20 Urine Culture - Final Urine Providencia Stuartii Normal [place] 05/30/18 07:35 Nasal Screen MRSA (PCR) - Final Nasal Mrsa Detected 05/29/18 17:40 Influenza Types A,B Antigen - Final Nasal Specimen received for Influenza A/B Molecular testing Assess/Plan/Problems-Billing Assessment: Patient is a 62yo male with a PMH for COPD, JAIDEN, Obesity Hypoventilation, CHF, Chronic Lower Extremity Wounds, who is admitted with acute hypoxic and hypercarbic respiratory failure due to pneumonia, requiring intubation. Patient developed C. Diff - Patient Problems (1) C. difficile diarrhea Current Visit: Yes Status: Acute Code(s): A04.72 - ENTEROCOLITIS D/T CLOSTRIDIUM DIFFICILE, NOT SPCF RECUR SNOMED Code(s): 5742265603550 Comment: continue PO vanc, started on 06/02, plan stop 06/17. (2) Pneumonia Current Visit: Yes Status: Acute Code(s): J18.9 - PNEUMONIA, UNSPECIFIED ORGANISM SNOMED Code(s): 077387840 Comment: With acute hypoxic and hypercarbic respiratory failure requiring intubation, extubated on 05/31 - now resolved. Wean O2 as tolerated (3) Wound of lower extremity Current Visit: Yes Status: Acute Code(s): S81.809A - UNSPECIFIED OPEN WOUND , UNSPECIFIED LOWER LEG, INIT ENCNTR SNOMED Code(s): 990033447 Comment: Continue local care. (4) Morbid obesity Current Visit: No Status: Acute Code(s): E66.01 - MORBID (SEVERE) OBESITY DUE TO EXCESS CALORIES SNOMED Code(s): 443030095 Comment: - BMI 64.1. (5) Obesity hypoventilation syndrome Current Visit: Yes Status: Chronic Code(s): E66.2 - MORBID (SEVERE) OBESITY WITH ALVEOLAR HYPOVENTILATION SNOMED Code(s): 179906073 Comment: Continue BiPAP at night with supplemental O2 (6) Diastolic heart failure Current Visit: Yes Status: Chronic Code(s): I50.30 - UNSPECIFIED DIASTOLIC ( CONGESTIVE) HEART FAILURE SNOMED Code(s): 969467263 Comment: - Chronic - Continue Torsemide 40mg daily. Status and Disposition: Inpatient for Pneumonia. Patient is medically stable for discharge. Patient has been waiting for new hospital bed to be delivered to home- Now talk of sending to subacute rehab short term for weakness. case management following.
[2018-06-10] MEDS: oxyCODONE TAB* 5 MG TAB PO PRN (21:04)
[2018-06-10] MEDS: Rivaroxaban TAB(*) 20 MG TAB PO SCH (21:06)
[2018-06-11] MEDS: Tiotropium CAP.INH* CAP.INH/18 MCG (USE ORDER SET !) INH SCH (07:28)
[2018-06-11] MEDS: Lactobacillus Acidophilus* 1 TAB PO SCH ×2 (08:36→22:32)
[2018-06-11] MEDS: Torsemide TAB* 20 MG PO SCH (08:36)
[2018-06-11] MEDS: guaiFENesin ER TAB 600 MG PO SCH ×4 (08:37→22:32)
[2018-06-11] MEDS: Vancomycin CAP* 125 MG CAP PO SCH ×4 (08:37→22:32)
[2018-06-11] MEDS: Aspirin EC TAB* 81 MG TAB.EC PO SCH (08:37)
[2018-06-11] MEDS: Gabapentin CAP(*) 100 MG PO SCH ×2 (08:37→22:32)
[2018-06-11] MEDS: Famotidine TAB* 20 MG PO SCH ×2 (08:37→22:32)
--- NOTE | 2018-06-11 12:29 | PN ---
Subjective Date of Service: 06/11/18 Interval History: No new c/o. Family History: Unchanged from Admission Social History: Unchanged from Admission Past Medical History: Unchanged from Admission Objective Active Medications: Acetaminophen (Tylenol Tab*) 650 mg PO Q6H PRN PRN Reason: FEVER/PAIN Last Admin: 06/10/18 21:05 Dose: 650 mg Albuterol (Ventolin Hfa Inhaler*) 2 puff INH Q4H PRN PRN Reason: SOB/WHEEZING Albuterol/Ipratropium (Duoneb (Albuterol 2.5 Mg/Ipratropium 0.5 Mg)) 1 neb INH [id number] AWAKE PRN PRN Reason: SOB/WHEEZING Last Admin: 06/02/18 09:50 Dose: 1 neb Aspirin (Aspirin Ec Tab*) 81 mg PO DAILY [facility] Last Admin: 06/11/18 08:37 Dose: 81 mg Device (Tiotropium Inhaler Device*) 1 each INH .USE w/ SPIRIVA CAPS [facility] Dextrose (D50w Syringe 50 Ml*) 12.5 gm IV PUSH .FOR FS < 60 - SS PRN PRN Reason: FS < 60 Diphenhydramine HCl (Benadryl Po*) 25 mg PO Q6H PRN PRN Reason: Allergy Symptoms Famotidine (Pepcid Tab*) 20 mg PO BID [facility] Last Admin: 06/11/18 08:37 Dose: 20 mg Gabapentin (Neurontin Cap(*)) 100 mg PO BID [facility] Last Admin: 06/11/18 08:37 Dose: 100 mg Guaifenesin (Mucinex*) 600 mg PO QID [facility] Last Admin: 06/11/18 08:37 Dose: 600 mg Lactobacillus Rhamnosus (Lactobacillus Acidophilus*) 1 tab PO BID [facility] Last Admin: 06/11/18 08:36 Dose: 1 tab Nitroglycerin (Nitroglycerin Tab 0.4 Mg*) 0.4 mg SL Q5M PRN PRN Reason: chest pain Ondansetron HCl (Zofran Inj*) 4 mg IV Q6H PRN PRN Reason: NAUSEA Oxycodone HCl (Roxycodone Tab*) 5 mg PO Q6H PRN PRN Reason: PAIN Last Admin: 06/10/18 21:04 Dose: 5 mg Rivaroxaban (Xarelto(*)) 20 mg PO BEDTIME [facility] Last Admin: 06/10/18 21:06 Dose: 20 mg Tiotropium [place] (Spiriva Cap.Inh*) 1 cap INH DAILY [facility] Last Admin: 06/11/18 07:28 Dose: 1 cap Torsemide (Demadex*) 40 mg PO DAILY [facility] Last Admin: 06/11/18 08:36 Dose: 40 mg Vancomycin HCl (Vancomycin Cap*) 125 mg PO QID [facility] Last Admin: 06/11/18 08:37 Dose: 125 mg Vital Signs - 8 hr 06/11/18 06/11/18 06/11/18 05:01 08:00 08:13 Temperature 98 F Pulse Rate 66 66 Respiratory 16 20 20 Rate Blood Pressure 145/71 126/72 (mmHg) O2 Sat by Pulse 90 94 Oximetry 06/11/18 08:37 Temperature Pulse Rate Respiratory 20 Rate Blood Pressure (mmHg) O2 Sat by Pulse Oximetry Oxygen Devices in Use Now: Nasal Cannula Appearance: Alert, supine in bed. In good spirits. Looks comfortable. Neurological: Alert and Oriented x 3, NL Sensation Result Diagrams: 06/07/18 05:44 06/07/18 05:44 Microbiology and Other Data: Microbiology 05/29/18 15:27 Aerobic Blood Culture - Preliminary Blood Venous No Growth Day 2 Anaerobic Blood Culture - Preliminary No Growth Day 2 05/29/18 15:27 Aerobic Blood Culture - Preliminary Blood Venous No Growth Day 2 Anaerobic Blood Culture - Preliminary No Growth Day 2 05/29/18 17:20 Urine Culture - Final Urine Providencia Stuartii Normal [place] 05/30/18 07:35 Nasal Screen MRSA (PCR) - Final Nasal Mrsa Detected 05/29/18 17:40 Influenza Types A,B Antigen - Final Nasal Specimen received for Influenza A/B Molecular testing Assess/Plan/Problems-Billing Assessment: Patient is a 62yo male with a PMH for COPD, JAIDEN, Obesity Hypoventilation, CHF, Chronic Lower Extremity Wounds, who is admitted with acute hypoxic and hypercarbic respiratory failure due to pneumonia, requiring intubation. Patient developed C. Diff - Patient Problems (1) C. difficile diarrhea Current Visit: Yes Status: Acute Code(s): A04.72 - ENTEROCOLITIS D/T CLOSTRIDIUM DIFFICILE, NOT SPCF RECUR SNOMED Code(s): 7402477748917 Comment: continue PO vanc, started on 06/02, plan stop 06/17. (2) Pneumonia Current Visit: Yes Status: Acute Code(s): J18.9 - PNEUMONIA, UNSPECIFIED ORGANISM SNOMED Code(s): 826793861 Comment: With acute hypoxic and hypercarbic respiratory failure requiring intubation, extubated on 05/31 - now resolved. Wean O2 as tolerated (3) Wound of lower extremity Current Visit: Yes Status: Acute Code(s): S81.809A - UNSPECIFIED OPEN WOUND , UNSPECIFIED LOWER LEG, INIT ENCNTR SNOMED Code(s): 585269860 Comment: Continue local care. (4) Morbid obesity Current Visit: No Status: Acute Code(s): E66.01 - MORBID (SEVERE) OBESITY DUE TO EXCESS CALORIES SNOMED Code(s): 555816822 Comment: - BMI 63.8. (5) Obesity hypoventilation syndrome Current Visit: Yes Status: Chronic Code(s): E66.2 - MORBID (SEVERE) OBESITY WITH ALVEOLAR HYPOVENTILATION SNOMED Code(s): 279329117 Comment: Continue BiPAP at night with supplemental O2 (6) Diastolic heart failure Current Visit: Yes Status: Chronic Code(s): I50.30 - UNSPECIFIED DIASTOLIC ( CONGESTIVE) HEART FAILURE SNOMED Code(s): 638706466 Comment: - Chronic - Continue Torsemide 40mg daily. BMP 06/12. Status and Disposition: Inpatient for Pneumonia. Patient is medically stable for discharge. Patient has been waiting for new hospital bed to be delivered to home- Now talk of sending to subacute rehab short term for weakness. I have encouraged the patient to have family bring in his walker. PMRU? Case management was looking into this.
[2018-06-11] MEDS: Rivaroxaban TAB(*) 20 MG TAB PO SCH (22:32)
[2018-06-11] MEDS: oxyCODONE TAB* 5 MG TAB PO PRN (22:36)
[2018-06-11] MEDS: Acetaminophen TAB* 325 MG PO PRN (22:36)
[2018-06-12 06:54] LABS: ABS Basophils 0.1 10^3/ul (0-0.2); ABS Eosinophils 0.2 10^3/ul (0-0.6); ABS Lymphocytes 1.3 10^3/ul (1.0-4.8); ABS Monocytes 0.5 10^3/ul (0-0.8); ABS Neutrophils 4.9 10^3/ul (1.5-7.7); ABS Nucleated RBC 0 10^3/ul; Eosinophil % 2.7 %; Hematocrit 45 % (36-46); Hemoglobin 14.5 g/dL (14.0-18.0); Lymphocyte % 18.8 %; Mean Corpuscular HGB Conc 32 g/dL (31-36); Mean Corpuscular Hemoglobin 28 pg (27-31); Mean Corpuscular Volume 86 fL (80-94); Mean Platelet Volume 9.2 fL (7.4-10.4); Nucleated Red Blood Cells % 0.3; Platelet Count 165 10^3/uL (150-450); Red Blood Count 5.22 10^6 /uL (4.18-5.48); Red Cell Distribution Width 17 % (10.5-15)
[2018-06-12 07:13] LABS: BUN/Creatinine Ratio 25.7 (8-20); Calcium 9.7 mg/dL (8.6-10.3); EGFR African American 129.7 (>60); EGFR Non-African American 107.2 (>60); Potassium 4.1 mmol/L (3.5-5.0)
[2018-06-12] MEDS: Tiotropium CAP.INH* CAP.INH/18 MCG (USE ORDER SET !) INH SCH (07:34)
[2018-06-12] MEDS: guaiFENesin ER TAB 600 MG PO SCH ×4 (08:29→21:59)
[2018-06-12] MEDS: Gabapentin CAP(*) 100 MG PO SCH ×2 (08:29→21:59)
[2018-06-12] MEDS: Vancomycin CAP* 125 MG CAP PO SCH ×4 (08:29→21:59)
[2018-06-12] MEDS: Aspirin EC TAB* 81 MG TAB.EC PO SCH (08:29)
[2018-06-12] MEDS: Famotidine TAB* 20 MG PO SCH ×2 (08:29→21:58)
[2018-06-12] MEDS: Torsemide TAB* 20 MG PO SCH (08:29)
[2018-06-12] MEDS: Lactobacillus Acidophilus* 1 TAB PO SCH ×2 (08:30→21:59)
--- NOTE | 2018-06-12 15:13 | PN ---
Subjective Date of Service: 06/12/18 Interval History: No new c/o. Diarrhea has resolved. Mild pain from coccygeal decubitus. Family History: Unchanged from Admission Social History: Unchanged from Admission Past Medical History: Unchanged from Admission Objective Active Medications: Acetaminophen (Tylenol Tab*) 650 mg PO Q6H PRN PRN Reason: FEVER/PAIN Last Admin: 06/11/18 22:36 Dose: 650 mg Albuterol (Ventolin Hfa Inhaler*) 2 puff INH Q4H PRN PRN Reason: SOB/WHEEZING Albuterol/Ipratropium (Duoneb (Albuterol 2.5 Mg/Ipratropium 0.5 Mg)) 1 neb INH [id number] AWAKE PRN PRN Reason: SOB/WHEEZING Last Admin: 06/02/18 09:50 Dose: 1 neb Aspirin (Aspirin Ec Tab*) 81 mg PO DAILY [facility] Last Admin: 06/12/18 08:29 Dose: 81 mg Device (Tiotropium Inhaler Device*) 1 each INH .USE w/ SPIRIVA CAPS [facility] Dextrose (D50w Syringe 50 Ml*) 12.5 gm IV PUSH .FOR FS < 60 - SS PRN PRN Reason: FS < 60 Diphenhydramine HCl (Benadryl Po*) 25 mg PO Q6H PRN PRN Reason: Allergy Symptoms Famotidine (Pepcid Tab*) 20 mg PO BID [facility] Last Admin: 06/12/18 08:29 Dose: 20 mg Gabapentin (Neurontin Cap(*)) 100 mg PO BID [facility] Last Admin: 06/12/18 08:29 Dose: 100 mg Guaifenesin (Mucinex*) 600 mg PO QID [facility] Last Admin: 06/12/18 13:15 Dose: 600 mg Lactobacillus Rhamnosus (Lactobacillus Acidophilus*) 1 tab PO BID [facility] Last Admin: 06/12/18 08:30 Dose: 1 tab Nitroglycerin (Nitroglycerin Tab 0.4 Mg*) 0.4 mg SL Q5M PRN PRN Reason: chest pain Ondansetron HCl (Zofran Inj*) 4 mg IV Q6H PRN PRN Reason: NAUSEA Oxycodone HCl (Roxycodone Tab*) 5 mg PO Q6H PRN PRN Reason: PAIN Last Admin: 06/11/18 22:36 Dose: 5 mg Rivaroxaban (Xarelto(*)) 20 mg PO BEDTIME [facility] Last Admin: 06/11/18 22:32 Dose: 20 mg Tiotropium [place] (Spiriva Cap.Inh*) 1 cap INH DAILY [facility] Last Admin: 06/12/18 07:34 Dose: 1 cap Torsemide (Demadex*) 40 mg PO DAILY [facility] Last Admin: 06/12/18 08:29 Dose: 40 mg Vancomycin HCl (Vancomycin Cap*) 125 mg PO QID [facility] Last Admin: 06/12/18 13:15 Dose: 125 mg Vital Signs - 8 hr 06/12/18 06/12/18 06/12/18 07:40 08:16 08:20 Temperature 97.7 F Pulse Rate 60 67 Respiratory 15 20 22 Rate Blood Pressure 119/67 (mmHg) O2 Sat by Pulse 96 93 Oximetry 06/12/18 06/12/18 08:29 10:30 Temperature Pulse Rate Respiratory 22 22 Rate Blood Pressure (mmHg) O2 Sat by Pulse Oximetry Oxygen Devices in Use Now: Nasal Cannula Appearance: Alert, supine in bed with head sl up. In good spirits. Looks comfortable. Eyes: No Scleral Icterus Extremities: - - Both legs wrapped in elastic bandage. Neurological: Alert and Oriented x 3, NL Sensation Result Diagrams: 06/12/18 06:39 06/12/18 06:40 Microbiology and Other Data: Microbiology 05/29/18 15:27 Aerobic Blood Culture - Preliminary Blood Venous No Growth Day 2 Anaerobic Blood Culture - Preliminary No Growth Day 2 05/29/18 15:27 Aerobic Blood Culture - Preliminary Blood Venous No Growth Day 2 Anaerobic Blood Culture - Preliminary No Growth Day 2 05/29/18 17:20 Urine Culture - Final Urine Providencia Stuartii Normal [place] 05/30/18 07:35 Nasal Screen MRSA (PCR) - Final Nasal Mrsa Detected 05/29/18 17:40 Influenza Types A,B Antigen - Final Nasal Specimen received for Influenza A/B Molecular testing Assess/Plan/Problems-Billing Assessment: Patient is a 62yo male with a PMH for COPD, JAIDEN, Obesity Hypoventilation, CHF, Chronic Lower Extremity Wounds, who is admitted with acute hypoxic and hypercarbic respiratory failure due to pneumonia, requiring intubation. Patient developed C. Diff - Patient Problems (1) C. difficile diarrhea Current Visit: Yes Status: Acute Code(s): A04.72 - ENTEROCOLITIS D/T CLOSTRIDIUM DIFFICILE, NOT SPCF RECUR SNOMED Code(s): 6840921864115 Comment: continue PO vanc, started on 06/02, plan stop 06/17. (2) Pneumonia Current Visit: Yes Status: Acute Code(s): J18.9 - PNEUMONIA, UNSPECIFIED ORGANISM SNOMED Code(s): 714588917 Comment: With acute hypoxic and hypercarbic respiratory failure requiring intubation, extubated on 05/31 - now resolved. Finished antibiotic tx 06/04/18. (3) Wound of lower extremity Current Visit: Yes Status: Acute Code(s): S81.809A - UNSPECIFIED OPEN WOUND , UNSPECIFIED LOWER LEG, INIT ENCNTR SNOMED Code(s): 411102568 Comment: Continue local care. Nurse reports legs wounds are healing well. (4) Morbid obesity Current Visit: No Status: Acute Code(s): E66.01 - MORBID (SEVERE) OBESITY DUE TO EXCESS CALORIES SNOMED Code(s): 100317366 Comment: - BMI 63.4. (5) Obesity hypoventilation syndrome Current Visit: Yes Status: Chronic Code(s): E66.2 - MORBID (SEVERE) OBESITY WITH ALVEOLAR HYPOVENTILATION SNOMED Code(s): 421112041 Comment: Continue BiPAP at night with supplemental O2 (6) Diastolic heart failure Current Visit: Yes Status: Chronic Code(s): I50.30 - UNSPECIFIED DIASTOLIC ( CONGESTIVE) HEART FAILURE SNOMED Code(s): 312092367 Comment: - Chronic - Continue Torsemide 40mg daily. BUN 19, K+ 4.1 on 06/12. Status and Disposition: Inpatient for Pneumonia. Patient is medically stable for discharge. Patient has been waiting for new hospital bed to be delivered to home- Now talk of sending to subacute rehab short term for weakness. I have encouraged the patient to have family bring in his walker. PMRU? Case management was looking into this.
[2018-06-12] MEDS: oxyCODONE TAB* 5 MG TAB PO PRN (21:57)
[2018-06-12] MEDS: Rivaroxaban TAB(*) 20 MG TAB PO SCH (21:58)
[2018-06-12] MEDS: Acetaminophen TAB* 325 MG PO PRN (22:00)
[2018-06-13] MEDS: Tiotropium CAP.INH* CAP.INH/18 MCG (USE ORDER SET !) INH SCH (08:07)
[2018-06-13] MEDS: Aspirin EC TAB* 81 MG TAB.EC PO SCH (10:04)
[2018-06-13] MEDS: Famotidine TAB* 20 MG PO SCH ×2 (10:04→20:55)
[2018-06-13] MEDS: Gabapentin CAP(*) 100 MG PO SCH ×2 (10:04→20:55)
[2018-06-13] MEDS: Torsemide TAB* 20 MG PO SCH (10:06)
[2018-06-13] MEDS: Vancomycin CAP* 125 MG CAP PO SCH ×4 (10:06→20:54)
[2018-06-13] MEDS: guaiFENesin ER TAB 600 MG PO SCH ×4 (10:06→20:54)
[2018-06-13] MEDS: Lactobacillus Acidophilus* 1 TAB PO SCH ×2 (10:06→20:54)
--- NOTE | 2018-06-13 12:43 | PN ---
Subjective Date of Service: 06/13/18 Interval History: diarrhea resolved. Pt has no new complaints. Denies abd pain Family History: Unchanged from Admission Social History: Unchanged from Admission Past Medical History: Unchanged from Admission Objective Active Medications: Acetaminophen (Tylenol Tab*) 650 mg PO Q6H PRN PRN Reason: FEVER/PAIN Last Admin: 06/12/18 22:00 Dose: 650 mg Albuterol (Ventolin Hfa Inhaler*) 2 puff INH Q4H PRN PRN Reason: SOB/WHEEZING Albuterol/Ipratropium (Duoneb (Albuterol 2.5 Mg/Ipratropium 0.5 Mg)) 1 neb INH [id number] AWAKE PRN PRN Reason: SOB/WHEEZING Last Admin: 06/02/18 09:50 Dose: 1 neb Aspirin (Aspirin Ec Tab*) 81 mg PO DAILY [facility] Last Admin: 06/13/18 10:04 Dose: 81 mg Device (Tiotropium Inhaler Device*) 1 each INH .USE w/ SPIRIVA CAPS [facility] Dextrose (D50w Syringe 50 Ml*) 12.5 gm IV PUSH .FOR FS < 60 - SS PRN PRN Reason: FS < 60 Diphenhydramine HCl (Benadryl Po*) 25 mg PO Q6H PRN PRN Reason: Allergy Symptoms Famotidine (Pepcid Tab*) 20 mg PO BID [facility] Last Admin: 06/13/18 10:04 Dose: 20 mg Gabapentin (Neurontin Cap(*)) 100 mg PO BID [facility] Last Admin: 06/13/18 10:04 Dose: 100 mg Guaifenesin (Mucinex*) 600 mg PO QID [facility] Last Admin: 06/13/18 10:06 Dose: 600 mg Lactobacillus Rhamnosus (Lactobacillus Acidophilus*) 1 tab PO BID [facility] Last Admin: 06/13/18 10:06 Dose: 1 tab Nitroglycerin (Nitroglycerin Tab 0.4 Mg*) 0.4 mg SL Q5M PRN PRN Reason: chest pain Ondansetron HCl (Zofran Inj*) 4 mg IV Q6H PRN PRN Reason: NAUSEA Oxycodone HCl (Roxycodone Tab*) 5 mg PO Q6H PRN PRN Reason: PAIN Last Admin: 06/12/18 21:57 Dose: 5 mg Rivaroxaban (Xarelto(*)) 20 mg PO BEDTIME [facility] Last Admin: 06/12/18 21:58 Dose: 20 mg Tiotropium [place] (Spiriva Cap.Inh*) 1 cap INH DAILY [facility] Last Admin: 06/13/18 08:07 Dose: 1 cap Torsemide (Demadex*) 40 mg PO DAILY [facility] Last Admin: 06/13/18 10:06 Dose: 40 mg Vancomycin HCl (Vancomycin Cap*) 125 mg PO QID [facility] Last Admin: 06/13/18 10:06 Dose: 125 mg Vital Signs - 8 hr 06/13/18 06/13/18 06/13/18 08:10 08:16 10:04 Pulse Rate 76 64 Respiratory 16 16 Rate Blood Pressure 136/68 (mmHg) O2 Sat by Pulse 92 94 Oximetry Oxygen Devices in Use Now: Nasal Cannula Appearance: 62 yo M in nAD, aAOx3 Eyes: No Scleral Icterus, PERRLA Ears/Nose/Mouth/Throat: NL Teeth, Lips, Gums, Mucous Membranes Moist Neck: NL Appearance and Movements; NL JVP, Trachea Midline Respiratory: Symmetrical Chest Expansion and Respiratory Effort, Clear to Auscultation Cardiovascular: NL Sounds; No Murmurs; No JVD, RRR Abdominal: NL Sounds; No Tenderness; No Distention Lymphatic: No Cervical Adenopathy Extremities: No Clubbing, Cyanosis Skin: - - b/l LEs' wrapped in SYLVIA bandages below the knees, not unwraped today. S/p B/l TMA amputation-stumps healed Result Diagrams: 06/12/18 06:39 06/12/18 06:40 Microbiology and Other Data: Microbiology 05/29/18 15:27 Aerobic Blood Culture - Preliminary Blood Venous No Growth Day 2 Anaerobic Blood Culture - Preliminary No Growth Day 2 05/29/18 15:27 Aerobic Blood Culture - Preliminary Blood Venous No Growth Day 2 Anaerobic Blood Culture - Preliminary No Growth Day 2 05/29/18 17:20 Urine Culture - Final Urine Providencia Stuartii Normal [place] 05/30/18 07:35 Nasal Screen MRSA (PCR) - Final Nasal Mrsa Detected 05/29/18 17:40 Influenza Types A,B Antigen - Final Nasal Specimen received for Influenza A/B Molecular testing Assess/Plan/Problems-Billing Assessment: Patient is a 62yo male with a PMH for COPD, JAIDEN, Obesity Hypoventilation, CHF, Chronic Lower Extremity Wounds, who is admitted with acute hypoxic and hypercarbic respiratory failure due to pneumonia, requiring intubation. Patient developed C. Diff - Patient Problems (1) C. difficile diarrhea Comment: continue PO vanc, started on 06/02, plan stop 06/17. (2) Obstructive sleep apnea Comment: Complicated by dCHF and OHS Trilogy at home, BiPAP in the hospital with 3L O2 (3) Pneumonia Comment: With acute hypoxic and hypercarbic respiratory failure requiring intubation, extubated on 05/31 - now resolved. Finished antibiotic tx 06/04/18. (4) Wound of lower extremity Comment: Continue local care. (5) Chronic respiratory failure Comment: Due to Obesity hypoventilation and COPD Chronic hypoxic and hypercarbic . on prn O2 at home Continue PRN inhalers. (6) Diastolic heart failure Comment: - Chronic - Continue Torsemide 40mg daily. (7) Obesity hypoventilation syndrome Comment: Continue BiPAP at night with supplemental O2 (8) Sick sinus syndrome Comment: pacer is in place (9) DVT prophylaxis Comment: - Xarelto Status and Disposition: Inpatient for Pneumonia. Patient is medically stable for discharge. Patient has been waiting for new hospital bed to be delivered to home- Now talk of sending to subacute rehab short term for weakness.
--- NOTE | 2018-06-13 20:44 | PN ---
Progress Note - Progress Note Date of Service: 06/13/18 Note: Patient not eating or drinking, glucose 53, able to eat and drink. Repeat glucose will be obtained in 1 hour
[2018-06-13] MEDS: Rivaroxaban TAB(*) 20 MG TAB PO SCH (20:54)
[2018-06-13] MEDS: Acetaminophen TAB* 325 MG PO PRN (20:55)
[2018-06-13] MEDS: oxyCODONE TAB* 5 MG TAB PO PRN (20:56)
[2018-06-14] MEDS: Tiotropium CAP.INH* CAP.INH/18 MCG (USE ORDER SET !) INH SCH (07:41)
[2018-06-14] MEDS: guaiFENesin ER TAB 600 MG PO SCH ×4 (09:28→21:05)
[2018-06-14] MEDS: Torsemide TAB* 20 MG PO SCH (09:28)
[2018-06-14] MEDS: Lactobacillus Acidophilus* 1 TAB PO SCH ×2 (09:28→21:05)
[2018-06-14] MEDS: Famotidine TAB* 20 MG PO SCH ×2 (09:29→21:06)
[2018-06-14] MEDS: Gabapentin CAP(*) 100 MG PO SCH ×2 (09:29→21:07)
[2018-06-14] MEDS: Aspirin EC TAB* 81 MG TAB.EC PO SCH (09:32)
[2018-06-14] MEDS: Vancomycin CAP* 125 MG CAP PO SCH ×4 (09:32→21:06)
--- NOTE | 2018-06-14 16:20 | PN ---
Subjective Date of Service: 06/14/18 Interval History: Pt had mild hypoglycemia due not feeling like eating. stated that he was upset about going to STR. Today he ate his breakfast and feels well. Denies SOB. Wounds evaluated with pt RN by the bedside Family History: Unchanged from Admission Social History: Unchanged from Admission Past Medical History: Unchanged from Admission Objective Active Medications: Acetaminophen (Tylenol Tab*) 650 mg PO Q6H PRN PRN Reason: FEVER/PAIN Last Admin: 06/13/18 20:55 Dose: 650 mg Albuterol (Ventolin Hfa Inhaler*) 2 puff INH Q4H PRN PRN Reason: SOB/WHEEZING Albuterol/Ipratropium (Duoneb (Albuterol 2.5 Mg/Ipratropium 0.5 Mg)) 1 neb INH [id number] AWAKE PRN PRN Reason: SOB/WHEEZING Last Admin: 06/02/18 09:50 Dose: 1 neb Aspirin (Aspirin Ec Tab*) 81 mg PO DAILY [facility] Last Admin: 06/14/18 09:32 Dose: 81 mg Device (Tiotropium Inhaler Device*) 1 each INH .USE w/ SPIRIVA CAPS [facility] Dextrose (D50w Syringe 50 Ml*) 12.5 gm IV PUSH .FOR FS < 60 - SS PRN PRN Reason: FS < 60 Diphenhydramine HCl (Benadryl Po*) 25 mg PO Q6H PRN PRN Reason: Allergy Symptoms Famotidine (Pepcid Tab*) 20 mg PO BID [facility] Last Admin: 06/14/18 09:29 Dose: 20 mg Gabapentin (Neurontin Cap(*)) 100 mg PO BID [facility] Last Admin: 06/14/18 09:29 Dose: 100 mg Guaifenesin (Mucinex*) 600 mg PO QID [facility] Last Admin: 06/14/18 13:31 Dose: 600 mg Lactobacillus Rhamnosus (Lactobacillus Acidophilus*) 1 tab PO BID [facility] Last Admin: 06/14/18 09:28 Dose: 1 tab Nitroglycerin (Nitroglycerin Tab 0.4 Mg*) 0.4 mg SL Q5M PRN PRN Reason: chest pain Ondansetron HCl (Zofran Inj*) 4 mg IV Q6H PRN PRN Reason: NAUSEA Oxycodone HCl (Roxycodone Tab*) 5 mg PO Q6H PRN PRN Reason: PAIN Last Admin: 06/13/18 20:56 Dose: 5 mg Rivaroxaban (Xarelto(*)) 20 mg PO BEDTIME [facility] Last Admin: 06/13/18 20:54 Dose: 20 mg Tiotropium [place] (Spiriva Cap.Inh*) 1 cap INH DAILY [facility] Last Admin: 06/14/18 07:41 Dose: 1 cap Torsemide (Demadex*) 40 mg PO DAILY [facility] Last Admin: 06/14/18 09:28 Dose: 40 mg Vancomycin HCl (Vancomycin Cap*) 125 mg PO QID [facility] Last Admin: 06/14/18 13:31 Dose: 125 mg Vital Signs - 8 hr 06/14/18 06/14/18 06/14/18 08:58 09:29 13:33 Temperature 98.6 F Pulse Rate 82 Respiratory 16 16 16 Rate Blood Pressure 109/45 (mmHg) O2 Sat by Pulse 94 Oximetry Oxygen Devices in Use Now: Nasal Cannula Appearance: 62 yo M in nAD, aAOx3 Eyes: No Scleral Icterus, PERRLA Ears/Nose/Mouth/Throat: NL Teeth, Lips, Gums, Mucous Membranes Moist Neck: NL Appearance and Movements; NL JVP, Trachea Midline Respiratory: Symmetrical Chest Expansion and Respiratory Effort, Clear to Auscultation Cardiovascular: NL Sounds; No Murmurs; No JVD, RRR Abdominal: NL Sounds; No Tenderness; No Distention Lymphatic: No Cervical Adenopathy Extremities: No Clubbing, Cyanosis, - - b/l distal LE's with venous staisis chronic erythema with punctate areas of open wounds, bleeding, also R lateral calf three shallow wounds at 3-5 cm in diam each stage 2, not infected, bottom for wounds bloody, no purulence noted. S/p TMA b/l feet Skin: No Nodules or Sclerosis Neurological: Alert and Oriented x 3, NL Muscle Strength and Tone Result Diagrams: 06/12/18 06:39 06/12/18 06:40 Microbiology and Other Data: Microbiology 05/29/18 15:27 Aerobic Blood Culture - Preliminary Blood Venous No Growth Day 2 Anaerobic Blood Culture - Preliminary No Growth Day 2 05/29/18 15:27 Aerobic Blood Culture - Preliminary Blood Venous No Growth Day 2 Anaerobic Blood Culture - Preliminary No Growth Day 2 05/29/18 17:20 Urine Culture - Final Urine Providencia Stuartii Normal [place] 05/30/18 07:35 Nasal Screen MRSA (PCR) - Final Nasal Mrsa Detected 05/29/18 17:40 Influenza Types A,B Antigen - Final Nasal Specimen received for Influenza A/B Molecular testing Assess/Plan/Problems-Billing Assessment: Patient is a 62yo male with a PMH for COPD, JAIDEN, Obesity Hypoventilation, CHF, Chronic Lower Extremity Wounds, who is admitted with acute hypoxic and hypercarbic respiratory failure due to pneumonia, requiring intubation. Patient developed C. Diff - Patient Problems (1) C. difficile diarrhea Comment: continue PO vanc, started on 06/02, plan stop 06/17. (2) Obstructive sleep apnea Comment: Complicated by dCHF and OHS Trilogy at home, BiPAP in the hospital with 3L O2 (3) Pneumonia Comment: With acute hypoxic and hypercarbic respiratory failure requiring intubation, extubated on 05/31 - now resolved. Finished antibiotic tx 06/04/18. (4) Wound of lower extremity Comment: Continue local care. (5) Chronic respiratory failure Comment: Due to Obesity hypoventilation and COPD Chronic hypoxic and hypercarbic . on prn O2 at home Continue PRN inhalers. (6) Diastolic heart failure Comment: - Chronic - Continue Torsemide 40mg daily. (7) Obesity hypoventilation syndrome Comment: Continue BiPAP at night with supplemental O2 (8) Sick sinus syndrome Comment: pacer is in place (9) DVT prophylaxis Comment: - Xarelto Status and Disposition: Inpatient for Pneumonia. Patient is medically stable for discharge. Awaiting STR
[2018-06-14] MEDS: Rivaroxaban TAB(*) 20 MG TAB PO SCH (21:05)
[2018-06-14] MEDS: oxyCODONE TAB* 5 MG TAB PO PRN (21:06)
[2018-06-14] MEDS: Acetaminophen TAB* 325 MG PO PRN (21:07)
[2018-06-15] MEDS: Tiotropium CAP.INH* CAP.INH/18 MCG (USE ORDER SET !) INH SCH (07:58)
[2018-06-15 09:07] LABS: ABS Basophils 0 10^3/ul (0-0.2); ABS Eosinophils 0.1 10^3/ul (0-0.6); ABS Lymphocytes 1.3 10^3/ul (1.0-4.8); ABS Monocytes 0.6 10^3/ul (0-0.8); ABS Neutrophils 4.2 10^3/ul (1.5-7.7); ABS Nucleated RBC 0 10^3/ul; Eosinophil % 2.4 %; Hematocrit 45 % (36-46); Hemoglobin 14.8 g/dL (14.0-18.0); Lymphocyte % 20.3 %; Mean Corpuscular HGB Conc 33 g/dL (31-36); Mean Corpuscular Hemoglobin 28 pg (27-31); Mean Corpuscular Volume 86 fL (80-94); Mean Platelet Volume 9.9 fL (7.4-10.4); Nucleated Red Blood Cells % 0; Platelet Count 171 10^3/uL (150-450); Red Blood Count 5.28 10^6 /uL (4.18-5.48); Red Cell Distribution Width 17 % (10.5-15); White Blood Count 6.2 10^3/uL (3.5-10.8)
[2018-06-15 09:22] LABS: Calcium 9.5 mg/dL (8.6-10.3); EGFR African American 116.8 (>60); EGFR Non-African American 96.6 (>60); Potassium 3.5 mmol/L (3.5-5.0)
[2018-06-15] MEDS: Torsemide TAB* 20 MG PO SCH (10:14)
[2018-06-15] MEDS: Vancomycin CAP* 125 MG CAP PO SCH ×4 (10:14→20:12)
[2018-06-15] MEDS: Famotidine TAB* 20 MG PO SCH ×2 (10:15→20:12)
[2018-06-15] MEDS: Aspirin EC TAB* 81 MG TAB.EC PO SCH (10:15)
[2018-06-15] MEDS: Lactobacillus Acidophilus* 1 TAB PO SCH ×2 (10:15→20:12)
[2018-06-15] MEDS: guaiFENesin ER TAB 600 MG PO SCH ×4 (10:15→20:12)
[2018-06-15] MEDS: Gabapentin CAP(*) 100 MG PO SCH ×2 (12:09→20:12)
--- NOTE | 2018-06-15 15:41 | PN ---
Subjective Date of Service: 06/15/18 Interval History: Pt feels well. eager to get OOB with PT. Family History: Unchanged from Admission Social History: Unchanged from Admission Past Medical History: Unchanged from Admission Objective Active Medications: Acetaminophen (Tylenol Tab*) 650 mg PO Q6H PRN PRN Reason: FEVER/PAIN Last Admin: 06/14/18 21:07 Dose: 650 mg Albuterol (Ventolin Hfa Inhaler*) 2 puff INH Q4H PRN PRN Reason: SOB/WHEEZING Albuterol/Ipratropium (Duoneb (Albuterol 2.5 Mg/Ipratropium 0.5 Mg)) 1 neb INH [id number] AWAKE PRN PRN Reason: SOB/WHEEZING Last Admin: 06/02/18 09:50 Dose: 1 neb Aspirin (Aspirin Ec Tab*) 81 mg PO DAILY [facility] Last Admin: 06/15/18 10:15 Dose: 81 mg Device (Tiotropium Inhaler Device*) 1 each INH .USE w/ SPIRIVA CAPS [facility] Dextrose (D50w Syringe 50 Ml*) 12.5 gm IV PUSH .FOR FS < 60 - SS PRN PRN Reason: FS < 60 Diphenhydramine HCl (Benadryl Po*) 25 mg PO Q6H PRN PRN Reason: Allergy Symptoms Famotidine (Pepcid Tab*) 20 mg PO BID [facility] Last Admin: 06/15/18 10:15 Dose: 20 mg Gabapentin (Neurontin Cap(*)) 100 mg PO BID [facility] Last Admin: 06/15/18 12:09 Dose: 100 mg Guaifenesin (Mucinex*) 600 mg PO QID [facility] Last Admin: 06/15/18 12:09 Dose: 600 mg Lactobacillus Rhamnosus (Lactobacillus Acidophilus*) 1 tab PO BID [facility] Last Admin: 06/15/18 10:15 Dose: 1 tab Nitroglycerin (Nitroglycerin Tab 0.4 Mg*) 0.4 mg SL Q5M PRN PRN Reason: chest pain Ondansetron HCl (Zofran Inj*) 4 mg IV Q6H PRN PRN Reason: NAUSEA Oxycodone HCl (Roxycodone Tab*) 5 mg PO Q6H PRN PRN Reason: PAIN Last Admin: 06/14/18 21:06 Dose: 5 mg Rivaroxaban (Xarelto(*)) 20 mg PO BEDTIME [facility] Last Admin: 06/14/18 21:05 Dose: 20 mg Tiotropium [place] (Spiriva Cap.Inh*) 1 cap INH DAILY [facility] Last Admin: 06/15/18 07:58 Dose: 1 cap Torsemide (Demadex*) 40 mg PO DAILY [facility] Last Admin: 06/15/18 10:14 Dose: 40 mg Vancomycin HCl (Vancomycin Cap*) 125 mg PO QID [facility] Last Admin: 06/15/18 12:09 Dose: 125 mg Vital Signs - 8 hr 06/15/18 06/15/18 06/15/18 08:00 09:09 12:03 Temperature 97.8 F 97.9 F Pulse Rate 60 64 Respiratory 16 16 Rate Blood Pressure 127/76 123/68 (mmHg) O2 Sat by Pulse 98 93 Oximetry 06/15/18 12:09 Temperature Pulse Rate Respiratory 16 Rate Blood Pressure (mmHg) O2 Sat by Pulse Oximetry Oxygen Devices in Use Now: Nasal Cannula Appearance: 62 yo M in nAD, aAOx3 Eyes: No Scleral Icterus, PERRLA Ears/Nose/Mouth/Throat: NL Teeth, Lips, Gums, Mucous Membranes Moist Neck: NL Appearance and Movements; NL JVP, Trachea Midline Respiratory: Symmetrical Chest Expansion and Respiratory Effort, Clear to Auscultation Cardiovascular: NL Sounds; No Murmurs; No JVD Abdominal: NL Sounds; No Tenderness; No Distention, No Hepatosplenomegaly Lymphatic: No Cervical Adenopathy Extremities: No Clubbing, Cyanosis, - - b/l leg edema-trace. S/p b/l feet TMA- stumps healed. Skin: - - b/l calf wounds not inspected today, sacral wound noted by RN not inspected today Neurological: Alert and Oriented x 3, NL Muscle Strength and Tone Result Diagrams: 06/15/18 08:32 06/15/18 08:32 Microbiology and Other Data: Microbiology 05/29/18 15:27 Aerobic Blood Culture - Preliminary Blood Venous No Growth Day 2 Anaerobic Blood Culture - Preliminary No Growth Day 2 05/29/18 15:27 Aerobic Blood Culture - Preliminary Blood Venous No Growth Day 2 Anaerobic Blood Culture - Preliminary No Growth Day 2 05/29/18 17:20 Urine Culture - Final Urine Providencia Stuartii Normal [place] 05/30/18 07:35 Nasal Screen MRSA (PCR) - Final Nasal Mrsa Detected 05/29/18 17:40 Influenza Types A,B Antigen - Final Nasal Specimen received for Influenza A/B Molecular testing Assess/Plan/Problems-Billing Assessment: Patient is a 62yo male with a PMH for COPD, JAIDEN, Obesity Hypoventilation, CHF, Chronic Lower Extremity Wounds, who is admitted with acute hypoxic and hypercarbic respiratory failure due to pneumonia, requiring intubation. Patient developed C. Diff - Patient Problems (1) C. difficile diarrhea Comment: continue PO vanc, started on 06/02, plan stop 06/17. (2) Obstructive sleep apnea Comment: Complicated by dCHF and OHS Trilogy at home, BiPAP in the hospital with 3L O2 (3) Pneumonia Comment: With acute hypoxic and hypercarbic respiratory failure requiring intubation, extubated on 05/31 - now resolved. Finished antibiotic tx 06/04/18. (4) Wound of lower extremity Comment: Continue local care. (5) Chronic respiratory failure Comment: Due to Obesity hypoventilation and COPD Chronic hypoxic and hypercarbic . on prn O2 at home Continue PRN inhalers. (6) Diastolic heart failure Comment: - Chronic - Continue Torsemide 40mg daily. (7) Obesity hypoventilation syndrome Comment: Continue BiPAP at night with supplemental O2 (8) Sick sinus syndrome Comment: pacer is in place (9) DVT prophylaxis Comment: - Xarelto Status and Disposition: Inpatient for Pneumonia. Patient is medically stable for discharge. Awaiting STR
--- NOTE | 2018-06-15 19:15 | CONSULT ---
Subjective Date of Service: 06/15/18 Interval History: Mr. Shafer is a 62 yo male with PMH significant for DVT/PE, obesity hypoventilation syndrome with BiPAP use at bedtime, SSS s/p pacemaker placement , bilateral LE lymphedema, HF, and COPD. Mr. Shafer has been admitted in the hospital since 05/29/18, initially he had respiratory failure and required intubation due to PNA. He presented to the hospital with bilateral LE wounds. He was seen by general surgery when he was first admitted and was felt to have edematous infective dermatitis. He was diagnosed cdiff colitis during his hospital stay with frequent loose stools that are improving per the patient. He was seen 2 weeks ago and last week for wound consultation and at that time it was recommended to use oil emulsion dressings to the legs followed by calcium alginate at the areas that were open and draining. NSG staff are noted to be applying oil emulsion dressings to the entire lower legs. Patient seen and examined at bedside. Family History: Unchanged from Admission Social History: Unchanged from Admission Past Medical History: Unchanged from Admission Review of Systems - Measurements Intake and Output: Intake and Output Last 24 Hours 06/13/18 06/14/18 06/15/18 06/16/18 06:59 06:59 06:59 06:59 Intake Total 1040 2040 1400 2840 Output Total 3800 1125 2900 1275 Balance -2760 915 -1500 1565 Weight 435 lb 12.8 oz 439 lb 436 lb 3.2 oz Intake: Oral 1040 2040 1400 2840 Output: Urine 3800 400 2900 1275 Chris 725 Other: Estimated Void Medium # Bowel Movements 1 1 Estimated Stool Amount Large Large # Voids 1 - Review of Systems Constitutional Symptoms: Negative: Fever, Other - Chills Dermatology: Positive: Other - Open areas to bilateral LEs Endocrinology: Positive: Diabetes Mellitus Objective Active Medications: Acetaminophen (Tylenol Tab*) 650 mg PO Q6H PRN Reason: FEVER/PAIN Albuterol (Ventolin Hfa Inhaler*) 2 puff INH Q4H PRN Reason: SOB/WHEEZING Albuterol/Ipratropium (Duoneb (Albuterol 2.5 Mg/Ipratropium 0.5 Mg)) 1 neb INH [id number] AWAKE PRN Reason: SOB/WHEEZING Aspirin (Aspirin Ec Tab*) 81 mg PO DAILY [facility] Device (Tiotropium Inhaler Device*) 1 each INH .USE w/ SPIRIVA CAPS [facility] Dextrose (D50w Syringe 50 Ml*) 12.5 gm IV PUSH .FOR FS < 60 - SS PRN Reason: FS < 60 Diphenhydramine HCl (Benadryl Po*) 25 mg PO Q6H PRN Reason: Allergy Symptoms Famotidine (Pepcid Tab*) 20 mg PO BID [facility] Gabapentin (Neurontin Cap(*)) 100 mg PO BID [facility] Guaifenesin (Mucinex*) 600 mg PO QID [facility] Lactobacillus Rhamnosus (Lactobacillus Acidophilus*) 1 tab PO BID [facility] Nitroglycerin (Nitroglycerin Tab 0.4 Mg*) 0.4 mg SL Q5M PRN Reason: chest pain Ondansetron HCl (Zofran Inj*) 4 mg IV Q6H PRN Reason: NAUSEA Oxycodone HCl (Roxycodone Tab*) 5 mg PO Q6H PRN Reason: PAIN Rivaroxaban (Xarelto(*)) 20 mg PO BEDTIME [facility] Tiotropium [place] (Spiriva Cap.Inh*) 1 cap INH DAILY [facility] Torsemide (Demadex*) 40 mg PO DAILY [facility] Vancomycin HCl (Vancomycin Cap*) 125 mg PO QID [facility] Vital Signs 06/15/18 06/15/18 06/15/18 12:03 12:09 15:40 Temperature 97.9 F 98.0 F Pulse Rate 64 77 Respiratory 16 16 16 Rate Blood Pressure 123/68 147/74 (mmHg) O2 Sat by Pulse 93 92 Oximetry Oxygen Devices in Use Now: Nasal Cannula - 2L Appearance: NAD, laying in bed Ears/Nose/Mouth/Throat: Mucous Membranes Moist Skin: - - See skin documentation below Neurological: Alert and Oriented x 3 Nutrition: Taking PO's Result Diagrams: 06/20/18 06:11 06/20/18 06:11 Microbiology and Other Data: Microbiology 05/29/18 15:27 Aerobic Blood Culture - Preliminary Blood Venous No Growth Day 2 Anaerobic Blood Culture - Preliminary No Growth Day 2 05/29/18 15:27 Aerobic Blood Culture - Preliminary Blood Venous No Growth Day 2 Anaerobic Blood Culture - Preliminary No Growth Day 2 05/29/18 17:20 Urine Culture - Final Urine Providencia Stuartii Normal [place] 05/30/18 07:35 Nasal Screen MRSA (PCR) - Final Nasal Mrsa Detected 05/29/18 17:40 Influenza Types A,B Antigen - Final Nasal Specimen received for Influenza A/B Molecular testing Skin Deviation Note - Skin Deviation Findings Right medial and anterior lower leg - Open areas measuring, 1.2 cm x 1.2 cm x 0.1 cm (proximal), 2 cm x 4 cm x 0.1 cm (anterior), 1.3 cm x 1.1 cm x 0.1 cm The wound base is beefy red. The surrounding skin is red and macerated. Left medial/posterior lower leg - Skin intact, erythema and chronic changes. The skin appears to be macerated. Left lateral lower leg - Distal open area measures 1 cm x 2 cm x 0.1 cm, 0.5 cm x 1.5 cm x 0.1 cm, lateral proximal open area 0.5 cm x 1 cm x 0.1 cm. The wound bases are beefy red, the surrounding skin has erythema and macerated. Right medial leg - Few areas with small amount of yellow eschar, there is also a few small superficial open area. There is erythema and the skin appears to be macerated. Right lateral lower leg - Several superficial open areas measuring, 1.6 cm x 5.6 cm x 0.1 cm, 10.5 cm x 6 cm x 0.1 cm, 1.5 cm x 1.5 cm x 0.1 cm, 0.5 cm x 2 cm x 0.1 cm. The wound bases are beefy red. The surrounding skin has erythema and appears to be macerated. There is some bloody drainage noted. Buttocks - The buttocks is excoriated. There are some superficial open areas. The surrounding skin is intact. Assessment/Plan: Mr. Shafer is a 62 yo male with PMH significant for DVT/PE, obesity hypoventilation syndrome with BiPAP use at bedtime, SSS s/p pacemaker placement , bilateral LE lymphedema, HF and COPD. He presented to the hospital with complaints of SOB and weeping LE wounds. He was treated for pneumonia, possible cellulitis and c-diff colitis. 1. Bilateral LEs with superficial open areas and dermatitis. Known history of venous stasis and follows with the [facility] wound clinic. The wounds appear to be slightly macerated. Recommend washing the legs with soap and water when dressings are changed. Applying calcium alginate to the open areas, rolled gauze and SYLVIA wraps. If the calcium alginate is sticking to the wounds, apply oil emulsion gauze to the open areas only and not the whole leg, followed by the calcium alginate, rolled gauze and SYLVIA wraps. Change the dressings every 2 to 3 days. 2. Excoriated buttocks. Recommend applying barrier cream. Frequent turning and repositioning. 3. Morbid obesity with obesity hypoventilation syndrome. 4. Chronic bilateral LE lymphedema with history of venous stasis ulcers. 5. Diabetes mellitus, type 2. HgA1C was 6.1 in 06/2017. Could consider rechecking a HgA1C. Maintain good glycemic control to allow for wound healing. 6. Diet. Consistent carbohydrate diet. 7. Code Status. Full code. 8. Disposition. Disposition per primary medicine team. TIME SPENT: Time for this wound follow up was 30 minutes with 20 minutes spent assessing, measuring, and photographing the wounds. Wound Problem/Plan Is Patient a Wound Clinic Patient: Yes - [facility] wound clinic Current Treatment: Wash with soap and water, A+D ointment, rolled gauze and SYLVIA wraps and change a few times weekly per patient Attending: Nina Gilman
[2018-06-15] MEDS: Rivaroxaban TAB(*) 20 MG TAB PO SCH (20:12)
[2018-06-16] MEDS: Tiotropium CAP.INH* CAP.INH/18 MCG (USE ORDER SET !) INH SCH (07:48)
[2018-06-16] MEDS: guaiFENesin ER TAB 600 MG PO SCH ×4 (09:19→20:34)
[2018-06-16] MEDS: Lactobacillus Acidophilus* 1 TAB PO SCH ×2 (09:19→20:33)
[2018-06-16] MEDS: Vancomycin CAP* 125 MG CAP PO SCH ×4 (09:19→20:33)
[2018-06-16] MEDS: Gabapentin CAP(*) 100 MG PO SCH ×2 (09:20→20:33)
[2018-06-16] MEDS: Torsemide TAB* 20 MG PO SCH (09:20)
[2018-06-16] MEDS: Famotidine TAB* 20 MG PO SCH ×2 (09:21→20:33)
[2018-06-16] MEDS: Aspirin EC TAB* 81 MG TAB.EC PO SCH (09:21)
--- NOTE | 2018-06-16 12:55 | PN ---
Subjective Date of Service: 06/16/18 Interval History: Pt feels well, c/o intermittent muscle cramps in UE's, that happened in the past when his potassium was low Family History: Unchanged from Admission Social History: Unchanged from Admission Past Medical History: Unchanged from Admission Objective Active Medications: Acetaminophen (Tylenol Tab*) 650 mg PO Q6H PRN PRN Reason: FEVER/PAIN Last Admin: 06/14/18 21:07 Dose: 650 mg Albuterol (Ventolin Hfa Inhaler*) 2 puff INH Q4H PRN PRN Reason: SOB/WHEEZING Albuterol/Ipratropium (Duoneb (Albuterol 2.5 Mg/Ipratropium 0.5 Mg)) 1 neb INH [id number] AWAKE PRN PRN Reason: SOB/WHEEZING Last Admin: 06/02/18 09:50 Dose: 1 neb Aspirin (Aspirin Ec Tab*) 81 mg PO DAILY [facility] Last Admin: 06/16/18 09:21 Dose: 81 mg Device (Tiotropium Inhaler Device*) 1 each INH .USE w/ SPIRIVA CAPS [facility] Dextrose (D50w Syringe 50 Ml*) 12.5 gm IV PUSH .FOR FS < 60 - SS PRN PRN Reason: FS < 60 Diphenhydramine HCl (Benadryl Po*) 25 mg PO Q6H PRN PRN Reason: Allergy Symptoms Famotidine (Pepcid Tab*) 20 mg PO BID [facility] Last Admin: 06/16/18 09:21 Dose: 20 mg Gabapentin (Neurontin Cap(*)) 100 mg PO BID [facility] Last Admin: 06/16/18 09:20 Dose: 100 mg Guaifenesin (Mucinex*) 600 mg PO QID [facility] Last Admin: 06/16/18 12:24 Dose: 600 mg Lactobacillus Rhamnosus (Lactobacillus Acidophilus*) 1 tab PO BID [facility] Last Admin: 06/16/18 09:19 Dose: 1 tab Nitroglycerin (Nitroglycerin Tab 0.4 Mg*) 0.4 mg SL Q5M PRN PRN Reason: chest pain Ondansetron HCl (Zofran Inj*) 4 mg IV Q6H PRN PRN Reason: NAUSEA Rivaroxaban (Xarelto(*)) 20 mg PO BEDTIME [facility] Last Admin: 06/15/18 20:12 Dose: 20 mg Tiotropium [place] (Spiriva Cap.Inh*) 1 cap INH DAILY [facility] Last Admin: 06/16/18 07:48 Dose: 1 cap Torsemide (Demadex*) 20 mg PO DAILY [facility] Vancomycin HCl (Vancomycin Cap*) 125 mg PO QID [facility] Last Admin: 06/16/18 12:24 Dose: 125 mg Vital Signs - 8 hr 06/16/18 06/16/18 06/16/18 07:49 07:50 08:10 Temperature Pulse Rate 72 64 Respiratory 18 16 16 Rate Blood Pressure 112/67 (mmHg) O2 Sat by Pulse 98 96 Oximetry 06/16/18 06/16/18 06/16/18 08:18 09:20 12:15 Temperature 97.4 F Pulse Rate Respiratory 16 18 Rate Blood Pressure (mmHg) O2 Sat by Pulse Oximetry Oxygen Devices in Use Now: Nasal Cannula Appearance: 62 yo M in nAD, aAOx3 Eyes: No Scleral Icterus, PERRLA Ears/Nose/Mouth/Throat: NL Teeth, Lips, Gums, Mucous Membranes Moist Neck: NL Appearance and Movements; NL JVP, Trachea Midline Respiratory: Symmetrical Chest Expansion and Respiratory Effort, Clear to Auscultation Cardiovascular: NL Sounds; No Murmurs; No JVD, RRR Abdominal: NL Sounds; No Tenderness; No Distention Lymphatic: No Cervical Adenopathy Extremities: No Edema, No Clubbing, Cyanosis Skin: - - R lateral aspect calf shallow ulcers-stage 1-2 at 5 cm in diam each with no celulitis, b/l calves with veous stasis dermatitis skin discoloration ans mall puncate, scattere areas of tiny wounds covered with eschar Neurological: Alert and Oriented x 3, NL Muscle Strength and Tone Result Diagrams: 06/15/18 08:32 06/15/18 08:32 Microbiology and Other Data: Microbiology 05/29/18 15:27 Aerobic Blood Culture - Preliminary Blood Venous No Growth Day 2 Anaerobic Blood Culture - Preliminary No Growth Day 2 05/29/18 15:27 Aerobic Blood Culture - Preliminary Blood Venous No Growth Day 2 Anaerobic Blood Culture - Preliminary No Growth Day 2 05/29/18 17:20 Urine Culture - Final Urine Providencia Stuartii Normal [place] 05/30/18 07:35 Nasal Screen MRSA (PCR) - Final Nasal Mrsa Detected 05/29/18 17:40 Influenza Types A,B Antigen - Final Nasal Specimen received for Influenza A/B Molecular testing Assess/Plan/Problems-Billing Assessment: Patient is a 62yo male with a PMH for COPD, JAIDEN, Obesity Hypoventilation, CHF, Chronic Lower Extremity Wounds, who is admitted with acute hypoxic and hypercarbic respiratory failure due to pneumonia, requiring intubation. Patient developed C. Diff - Patient Problems (1) C. difficile diarrhea Comment: continue PO vanc, started on 06/02, plan stop 06/17. (2) Obstructive sleep apnea Comment: Complicated by dCHF and OHS Trilogy at home, BiPAP in the hospital with 3L O2 (3) Pneumonia Comment: With acute hypoxic and hypercarbic respiratory failure requiring intubation, extubated on 05/31 - now resolved. Finished antibiotic tx 06/04/18. (4) Wound of lower extremity Comment: Continue local care. (5) Chronic respiratory failure Comment: Due to Obesity hypoventilation and COPD Chronic hypoxic and hypercarbic . on prn O2 at home Continue PRN inhalers. (6) Diastolic heart failure Comment: - Chronic - lower Torsemide to 20 mg daily. BMP indicates contraction alkalosis (7) Obesity hypoventilation syndrome Comment: Continue BiPAP at night with supplemental O2 (8) Sick sinus syndrome Comment: pacer is in place (9) DVT prophylaxis Comment: - Xarelto Status and Disposition: Inpatient for Pneumonia. Patient is medically stable for discharge. Awaiting STR
[2018-06-16 14:26] LABS: BUN/Creatinine Ratio 24.4 (8-20); Blood Urea Nitrogen 20 mg/dL (6-24); CO2 Carbon Dioxide 38 mmol/L (22-32); Calcium 9.8 mg/dL (8.6-10.3); Chloride 93 mmol/L (101-111); EGFR African American 115.2 (>60); EGFR Non-African American 95.2 (>60); Glucose 132 mg/dL (70-100); Magnesium 1.7 mg/dL (1.9-2.7); Sodium 139 mmol/L (135-145)
[2018-06-16 14:58] LABS: Anion Gap 8 mmol/L (2-11)
[2018-06-16 15:41] LABS: ABS Basophils 0.1 10^3/ul (0-0.2); ABS Eosinophils 0.1 10^3/ul (0-0.6); ABS Lymphocytes 1.3 10^3/ul (1.0-4.8); ABS Monocytes 0.6 10^3/ul (0-0.8); ABS Neutrophils 4.9 10^3/ul (1.5-7.7); ABS Nucleated RBC 0 10^3/ul; Eosinophil % 1.9 %; Hematocrit 44 % (36-46); Hemoglobin 14.4 g/dL (14.0-18.0); Lymphocyte % 18.2 %; Mean Corpuscular HGB Conc 32 g/dL (31-36); Mean Corpuscular Hemoglobin 28 pg (27-31); Mean Corpuscular Volume 86 fL (80-94); Mean Platelet Volume 9.2 fL (7.4-10.4); Nucleated Red Blood Cells % 0; Platelet Count 159 10^3/uL (150-450); Red Blood Count 5.17 10^6 /uL (4.18-5.48); Red Cell Distribution Width 17 % (10.5-15); White Blood Count 6.9 10^3/uL (3.5-10.8)
[2018-06-16] MEDS ORDERED: Magnesium Sulfate 1 GM IV* 1 GM/100 ML BAG IV ONE (16:00)
[2018-06-16] MEDS: Magnesium Oxide TAB* 400 MG PO SCH (16:34)
[2018-06-16] MEDS: Acetaminophen TAB* 325 MG PO PRN (20:33)
[2018-06-16] MEDS: Rivaroxaban TAB(*) 20 MG TAB PO SCH (20:33)
[2018-06-16] MEDS: oxyCODONE TAB* 5 MG TAB PO PRN (20:36)
[2018-06-17] MEDS: Lactobacillus Acidophilus* 1 TAB PO SCH ×2 (08:17→21:03)
[2018-06-17] MEDS: guaiFENesin ER TAB 600 MG PO SCH ×4 (08:17→21:04)
[2018-06-17] MEDS: Aspirin EC TAB* 81 MG TAB.EC PO SCH (08:17)
[2018-06-17] MEDS: Magnesium Oxide TAB* 400 MG PO SCH (08:17)
[2018-06-17] MEDS: Tiotropium CAP.INH* CAP.INH/18 MCG (USE ORDER SET !) INH SCH (08:17)
[2018-06-17] MEDS: Gabapentin CAP(*) 100 MG PO SCH ×2 (08:17→21:04)
[2018-06-17] MEDS: Famotidine TAB* 20 MG PO SCH ×2 (08:18→21:04)
[2018-06-17] MEDS: Vancomycin CAP* 125 MG CAP PO SCH ×4 (08:18→21:03)
[2018-06-17] MEDS ORDERED: Torsemide TAB* 20 MG PO SCH (09:00)
--- NOTE | 2018-06-17 11:01 | PN ---
Subjective Date of Service: 06/17/18 Interval History: Pt feels well, still has loose stool and some bowel incontinence, but usually it 's just once a day Family History: Unchanged from Admission Social History: Unchanged from Admission Past Medical History: Unchanged from Admission Objective Active Medications: Acetaminophen (Tylenol Tab*) 650 mg PO Q6H PRN PRN Reason: FEVER/PAIN Last Admin: 06/16/18 20:33 Dose: 650 mg Albuterol (Ventolin Hfa Inhaler*) 2 puff INH Q4H PRN PRN Reason: SOB/WHEEZING Albuterol/Ipratropium (Duoneb (Albuterol 2.5 Mg/Ipratropium 0.5 Mg)) 1 neb INH [id number] AWAKE PRN PRN Reason: SOB/WHEEZING Last Admin: 06/02/18 09:50 Dose: 1 neb Aspirin (Aspirin Ec Tab*) 81 mg PO DAILY [facility] Last Admin: 06/17/18 08:17 Dose: 81 mg Device (Tiotropium Inhaler Device*) 1 each INH .USE w/ SPIRIVA CAPS [facility] Dextrose (D50w Syringe 50 Ml*) 12.5 gm IV PUSH .FOR FS < 60 - SS PRN PRN Reason: FS < 60 Diphenhydramine HCl (Benadryl Po*) 25 mg PO Q6H PRN PRN Reason: Allergy Symptoms Famotidine (Pepcid Tab*) 20 mg PO BID [facility] Last Admin: 06/17/18 08:18 Dose: 20 mg Gabapentin (Neurontin Cap(*)) 100 mg PO BID [facility] Last Admin: 06/17/18 08:17 Dose: 100 mg Guaifenesin (Mucinex*) 600 mg PO QID [facility] Last Admin: 06/17/18 08:17 Dose: 600 mg Lactobacillus Rhamnosus (Lactobacillus Acidophilus*) 1 tab PO BID [facility] Last Admin: 06/17/18 08:17 Dose: 1 tab Magnesium Oxide (Magox 400 Tab*) 800 mg PO DAILY [facility] Last Admin: 06/17/18 08:17 Dose: 800 mg Nitroglycerin (Nitroglycerin Tab 0.4 Mg*) 0.4 mg SL Q5M PRN PRN Reason: chest pain Ondansetron HCl (Zofran Inj*) 4 mg IV Q6H PRN PRN Reason: NAUSEA Oxycodone HCl (Roxycodone Tab*) 5 mg PO Q6H PRN PRN Reason: PAIN Last Admin: 06/16/18 20:36 Dose: 5 mg Rivaroxaban (Xarelto(*)) 20 mg PO BEDTIME [facility] Last Admin: 06/16/18 20:33 Dose: 20 mg Tiotropium [place] (Spiriva Cap.Inh*) 1 cap INH DAILY [facility] Last Admin: 06/17/18 08:17 Dose: 1 cap Torsemide (Demadex*) 20 mg PO DAILY [facility] Last Admin: 06/17/18 08:17 Dose: 20 mg Vancomycin HCl (Vancomycin Cap*) 125 mg PO QID [facility] Last Admin: 06/17/18 08:18 Dose: 125 mg Vital Signs - 8 hr 06/17/18 06/17/18 07:51 08:17 Temperature 97.4 F Pulse Rate 64 63 Respiratory 20 16 Rate Blood Pressure 112/73 (mmHg) O2 Sat by Pulse 95 98 Oximetry Oxygen Devices in Use Now: Nasal Cannula Appearance: 62 yo M in nAD, AAOx3 Eyes: No Scleral Icterus, PERRLA Ears/Nose/Mouth/Throat: NL Teeth, Lips, Gums, Mucous Membranes Moist Neck: NL Appearance and Movements; NL JVP, Trachea Midline Respiratory: Symmetrical Chest Expansion and Respiratory Effort, Clear to Auscultation Cardiovascular: RRR Abdominal: NL Sounds; No Tenderness; No Distention Lymphatic: No Cervical Adenopathy Extremities: No Edema, No Clubbing, Cyanosis Skin: No Nodules or Sclerosis, - - b/l leg wounds not examined today Neurological: Alert and Oriented x 3, NL Muscle Strength and Tone Result Diagrams: 06/16/18 15:36 06/16/18 15:36 Microbiology and Other Data: Microbiology 05/29/18 15:27 Aerobic Blood Culture - Preliminary Blood Venous No Growth Day 2 Anaerobic Blood Culture - Preliminary No Growth Day 2 05/29/18 15:27 Aerobic Blood Culture - Preliminary Blood Venous No Growth Day 2 Anaerobic Blood Culture - Preliminary No Growth Day 2 05/29/18 17:20 Urine Culture - Final Urine Providencia Stuartii Normal [place] 05/30/18 07:35 Nasal Screen MRSA (PCR) - Final Nasal Mrsa Detected 05/29/18 17:40 Influenza Types A,B Antigen - Final Nasal Specimen received for Influenza A/B Molecular testing Assess/Plan/Problems-Billing Assessment: Patient is a 62yo male with a PMH for COPD, JAIDEN, Obesity Hypoventilation, CHF, Chronic Lower Extremity Wounds, who is admitted with acute hypoxic and hypercarbic respiratory failure due to pneumonia, requiring intubation. Patient developed C. Diff - Patient Problems (1) C. difficile diarrhea Comment: continue PO vanc, started on 06/02, stop 06/17. (2) Obstructive sleep apnea Comment: Complicated by dCHF Trilogy at home, BiPAP in the hospital with 3L O2 (3) Pneumonia Comment: With acute hypoxic and hypercarbic respiratory failure requiring intubation, extubated on 05/31 - now resolved. Finished antibiotic tx 06/04/18. (4) Wound of lower extremity Comment: Continue local care. (5) Chronic respiratory failure Comment: Due to Obesity hypoventilation and COPD Chronic hypoxic and hypercarbic . on prn O2 at home Continue PRN inhalers. (6) Diastolic heart failure Comment: - Chronic - lowered Torsemide to 20 mg daily (on 06/17/18-at home pt takes 20-60 mg /day depending on SOB, edema/wt). BMP indicates mild contraction alkalosis (7) Obesity hypoventilation syndrome Comment: Continue BiPAP at night with supplemental O2 (8) Sick sinus syndrome Comment: pacer is in place (9) DVT prophylaxis Comment: - Xarelto Status and Disposition: Inpatient for Pneumonia. Patient is medically stable for discharge. Awaiting STR
[2018-06-17] MEDS: Rivaroxaban TAB(*) 20 MG TAB PO SCH (21:03)
[2018-06-17] MEDS: oxyCODONE TAB* 5 MG TAB PO PRN (21:03)
[2018-06-18] MEDS: Tiotropium CAP.INH* CAP.INH/18 MCG (USE ORDER SET !) INH SCH (07:44)
[2018-06-18] MEDS: Lactobacillus Acidophilus* 1 TAB PO SCH ×2 (09:06→21:33)
[2018-06-18] MEDS: Magnesium Oxide TAB* 400 MG PO SCH (09:06)
[2018-06-18] MEDS: Gabapentin CAP(*) 100 MG PO SCH ×2 (09:07→21:34)
[2018-06-18] MEDS: Torsemide TAB 10 MG PO SCH (09:07)
[2018-06-18] MEDS: Aspirin EC TAB* 81 MG TAB.EC PO SCH (09:07)
[2018-06-18] MEDS: guaiFENesin ER TAB 600 MG PO SCH ×4 (09:07→21:33)
[2018-06-18] MEDS: Vancomycin CAP* 125 MG CAP PO SCH ×2 (09:07→12:41)
[2018-06-18] MEDS: Famotidine TAB* 20 MG PO SCH ×2 (09:07→21:33)
[2018-06-18] MEDS ORDERED: Magnesium Sulfate IV* 3 GM in NS 0.9% 100 ML* 100 ML IVPB ONE (10:40)
--- NOTE | 2018-06-18 13:06 | PN ---
Subjective Date of Service: 06/18/18 Interval History: Pt seen and examined. Meds and labs reviewed. CC: Mentioned had 2 soft bowel movements, but more formed than recent yesterday. Has not had BM this AM during my visit yet. ROS: Denied WALL/dizziness, F/C, N/V, CP, SOB, increased cough, sputum production , abd pain, diarrhea, constipation, dysuria, myalgias, arthralgias, throat pain , and new skin lesions. The rest of the 14 point ROS are unremarkable. PHYSICAL EXAM: GEN APPEARANCE: Awake, not in acute distress, obese HEENT: NC/AT, PERRLA, moist oral mucosa, (-) throat erythema NECK: Soft, supple, (-) cervical LAD, (-)JVD HEART: S1S2 WNL, RRR, No MRG CHEST: CTA, BL, GAE, No W/R/R ABD: Soft, ND/NT, NABS 4x Q EXT: No C/C/SYLVIA bandages wrapped on BL legs for chronic venous stasis w/ superficial wounds, cdi SKIN: Warm to touch PSYCH: No active psychosis, hallucinations, depression, SI/HI Family History: Unchanged from Admission Social History: Unchanged from Admission Past Medical History: Unchanged from Admission Objective Active Medications: Acetaminophen (Tylenol Tab*) 650 mg PO Q6H PRN PRN Reason: FEVER/PAIN Last Admin: 06/16/18 20:33 Dose: 650 mg Albuterol (Ventolin Hfa Inhaler*) 2 puff INH Q4H PRN PRN Reason: SOB/WHEEZING Albuterol/Ipratropium (Duoneb (Albuterol 2.5 Mg/Ipratropium 0.5 Mg)) 1 neb INH [id number] AWAKE PRN PRN Reason: SOB/WHEEZING Last Admin: 06/02/18 09:50 Dose: 1 neb Aspirin (Aspirin Ec Tab*) 81 mg PO DAILY [facility] Last Admin: 06/18/18 09:07 Dose: 81 mg Device (Tiotropium Inhaler Device*) 1 each INH .USE w/ SPIRIVA CAPS [facility] Dextrose (D50w Syringe 50 Ml*) 12.5 gm IV PUSH .FOR FS < 60 - SS PRN PRN Reason: FS < 60 Diphenhydramine HCl (Benadryl Po*) 25 mg PO Q6H PRN PRN Reason: Allergy Symptoms Famotidine (Pepcid Tab*) 20 mg PO BID [facility] Last Admin: 06/18/18 09:07 Dose: 20 mg Gabapentin (Neurontin Cap(*)) 100 mg PO BID [facility] Last Admin: 06/18/18 09:07 Dose: 100 mg Guaifenesin (Mucinex*) 600 mg PO QID [facility] Last Admin: 06/18/18 12:41 Dose: 600 mg Lactobacillus Rhamnosus (Lactobacillus Acidophilus*) 1 tab PO BID [facility] Last Admin: 06/18/18 09:06 Dose: 1 tab Magnesium Oxide (Magox 400 Tab*) 800 mg PO DAILY [facility] Last Admin: 06/18/18 09:06 Dose: 800 mg Nitroglycerin (Nitroglycerin Tab 0.4 Mg*) 0.4 mg SL Q5M PRN PRN Reason: chest pain Ondansetron HCl (Zofran Inj*) 4 mg IV Q6H PRN PRN Reason: NAUSEA Oxycodone HCl (Roxycodone Tab*) 5 mg PO Q6H PRN PRN Reason: PAIN Last Admin: 06/17/18 21:03 Dose: 5 mg Rivaroxaban (Xarelto(*)) 20 mg PO BEDTIME [facility] Last Admin: 06/17/18 21:03 Dose: 20 mg Tiotropium [place] (Spiriva Cap.Inh*) 1 cap INH DAILY [facility] Last Admin: 06/18/18 07:44 Dose: 1 cap Torsemide (Torsemide) 20 mg PO DAILY [facility] Last Admin: 06/18/18 09:07 Dose: 20 mg Vital Signs - 8 hr 06/18/18 06/18/18 06/18/18 07:40 07:44 08:00 Temperature 97.3 F Pulse Rate 63 65 Respiratory 20 18 18 Rate Blood Pressure 145/62 (mmHg) O2 Sat by Pulse 94 90 Oximetry 06/18/18 06/18/18 09:07 11:42 Temperature Pulse Rate Respiratory 18 18 Rate Blood Pressure (mmHg) O2 Sat by Pulse Oximetry Oxygen Devices in Use Now: Nasal Cannula Result Diagrams: 06/16/18 15:36 06/16/18 15:36 Microbiology and Other Data: Microbiology 05/29/18 15:27 Aerobic Blood Culture - Preliminary Blood Venous No Growth Day 2 Anaerobic Blood Culture - Preliminary No Growth Day 2 05/29/18 15:27 Aerobic Blood Culture - Preliminary Blood Venous No Growth Day 2 Anaerobic Blood Culture - Preliminary No Growth Day 2 05/29/18 17:20 Urine Culture - Final Urine Providencia Stuartii Normal [place] 05/30/18 07:35 Nasal Screen MRSA (PCR) - Final Nasal Mrsa Detected 05/29/18 17:40 Influenza Types A,B Antigen - Final Nasal Specimen received for Influenza A/B Molecular testing Assess/Plan/Problems-Billing Assessment: Patient is a 62yo male with a PMH for COPD, JAIDEN, Obesity Hypoventilation, CHF, Chronic Lower Extremity Wounds, who is admitted with acute hypoxic and hypercarbic respiratory failure due to pneumonia, requiring intubation. Patient developed C. Diff - Patient Problems (1) C. difficile diarrhea Current Visit: Yes Status: Acute Code(s): A04.72 - ENTEROCOLITIS D/T CLOSTRIDIUM DIFFICILE, NOT SPCF RECUR SNOMED Code(s): 7338192047703 Comment: -Continue PO vanc, started on 06/02, stop 06/17; still on PO VancoD/Cd today. (2) Obstructive sleep apnea Current Visit: Yes Status: Acute Code(s): G47.33 - OBSTRUCTIVE SLEEP APNEA ( ADULT) (PEDIATRIC) SNOMED Code(s): 95644726 Comment: Complicated by dCHF Trilogy at home, BiPAP in the hospital with 3L O2 (3) Pneumonia Current Visit: Yes Status: Acute Code(s): J18.9 - PNEUMONIA, UNSPECIFIED ORGANISM SNOMED Code(s): 290926960 Comment: With acute hypoxic and hypercarbic respiratory failure requiring intubation, extubated on 05/31 - now resolved. Finished antibiotic tx 06/04/18. (4) Wound of lower extremity Current Visit: Yes Status: Acute Code(s): S81.809A - UNSPECIFIED OPEN WOUND , UNSPECIFIED LOWER LEG, INIT ENCNTR SNOMED Code(s): 875311257 Comment: Continue local care. (5) Chronic respiratory failure Current Visit: Yes Status: Chronic Code(s): J96.10 - CHRONIC RESPIRATORY FAILURE, UNSP W HYPOXIA OR HYPERCAPNIA SNOMED Code(s): 78214455 Comment: Due to Obesity hypoventilation and COPD Chronic hypoxic and hypercarbic . on prn O2 at home Continue PRN inhalers. (6) Diastolic heart failure Current Visit: Yes Status: Chronic Code(s): I50.30 - UNSPECIFIED DIASTOLIC ( CONGESTIVE) HEART FAILURE SNOMED Code(s): 048508425 Comment: - Chronic - lowered Torsemide to 20 mg daily (on 06/17/18-at home pt takes 20-60 mg /day depending on SOB, edema/wt). BMP indicates mild contraction alkalosis (7) Obesity hypoventilation syndrome Current Visit: Yes Status: Chronic Code(s): E66.2 - MORBID (SEVERE) OBESITY WITH ALVEOLAR HYPOVENTILATION SNOMED Code(s): 992687434 Comment: Continue BiPAP at night with supplemental O2 (8) Sick sinus syndrome Current Visit: Yes Status: Chronic Code(s): I49.5 - SICK SINUS SYNDROME SNOMED Code(s): 44623408 Comment: pacer is in place (9) DVT prophylaxis Current Visit: No Status: Acute Code(s): JWL0268 - SNOMED Code(s): 327740075 Comment: - Xarelto Status and Disposition: Patient is medically stable for discharge. Awaiting STR
[2018-06-18] MEDS: Nitroglycerin TAB 0.4 MG* 0.4 MG TAB SL PRN (21:32)
[2018-06-18] MEDS: oxyCODONE TAB* 5 MG TAB PO PRN (21:34)
[2018-06-18] MEDS: Rivaroxaban TAB(*) 20 MG TAB PO SCH (21:34)
[2018-06-18] MEDS ORDERED: Torsemide TAB 10 MG PO ONE (22:00)
[2018-06-18] MEDS ORDERED: Torsemide TAB* 20 MG PO ONE (22:00)
[2018-06-19 07:05] LABS: ABS Basophils 0 10^3/ul (0-0.2); ABS Eosinophils 0.1 10^3/ul (0-0.6); ABS Lymphocytes 1.2 10^3/ul (1.0-4.8); ABS Monocytes 0.5 10^3/ul (0-0.8); ABS Nucleated RBC 0 10^3/ul; Hematocrit 42 % (36-46); Lymphocyte % 24.4 %; Mean Corpuscular HGB Conc 33 g/dL (31-36); Mean Corpuscular Hemoglobin 29 pg (27-31); Mean Corpuscular Volume 86 fL (80-94); Mean Platelet Volume 9.9 fL (7.4-10.4); Nucleated Red Blood Cells % 0.1; Platelet Count 145 10^3/uL (150-450); Red Cell Distribution Width 17 % (10.5-15); White Blood Count 4.9 10^3/uL (3.5-10.8)
[2018-06-19 07:15] LABS: Albumin 3.3 g/dL (3.2-5.2); Albumin/Globulin Ratio 0.9 (1-3); BUN/Creatinine Ratio 24.7 (8-20); Calcium 9.2 mg/dL (8.6-10.3); EGFR African American 131.7 (>60); EGFR Non-African American 108.9 (>60); Globulin 3.5 g/dL (2-4); Magnesium 1.9 mg/dL (1.9-2.7); Phosphorus 4.4 mg/dL (2.5-5.0); Potassium 3.8 mmol/L (3.5-5.0); Total Bilirubin 0.8 mg/dL (0.2-1.0); Total Protein 6.8 g/dL (6.4-8.9)
[2018-06-19] MEDS: Tiotropium CAP.INH* CAP.INH/18 MCG (USE ORDER SET !) INH SCH (07:59)
[2018-06-19] MEDS: Torsemide TAB 10 MG PO SCH (08:54)
[2018-06-19] MEDS: Aspirin EC TAB* 81 MG TAB.EC PO SCH (08:54)
[2018-06-19] MEDS: guaiFENesin ER TAB 600 MG PO SCH ×4 (08:54→20:32)
[2018-06-19] MEDS: Magnesium Oxide TAB* 400 MG PO SCH (08:55)
[2018-06-19] MEDS: Famotidine TAB* 20 MG PO SCH ×2 (08:55→20:32)
[2018-06-19] MEDS: Lactobacillus Acidophilus* 1 TAB PO SCH ×2 (08:55→20:31)
[2018-06-19] MEDS: Gabapentin CAP(*) 100 MG PO SCH ×2 (08:55→20:32)
--- NOTE | 2018-06-19 13:14 | PN ---
Subjective Date of Service: 06/19/18 Interval History: Pt seen and examined. Meds and labs reviewed. CC: LBM--formed 2 small BM yesterday ROS: Denied WALL/dizziness, F/C, N/V, CP, SOB, increased cough, sputum production , abd pain, diarrhea, constipation, dysuria, myalgias, arthralgias, throat pain , and new skin lesions. The rest of the 14 point ROS are unremarkable. PHYSICAL EXAM: GEN APPEARANCE: Awake, not in acute distress, obese HEENT: NC/AT, PERRLA, moist oral mucosa, (-) throat erythema NECK: Soft, supple, (-) cervical LAD, (-)JVD HEART: S1S2 WNL, RRR, No MRG CHEST: CTA, BL, GAE, No W/R/R ABD: Soft, ND/NT, NABS 4x Q EXT: No C/C/SYLVIA bandages wrapped on BL legs for chronic venous stasis w/ superficial wounds, cdi SKIN: Warm to touch PSYCH: No active psychosis, hallucinations, depression, SI/HI Family History: Unchanged from Admission Family History: Unchanged from Admission Social History: Unchanged from Admission Past Medical History: Unchanged from Admission Objective Active Medications: Acetaminophen (Tylenol Tab*) 650 mg PO Q6H PRN PRN Reason: FEVER/PAIN Last Admin: 06/16/18 20:33 Dose: 650 mg Albuterol (Ventolin Hfa Inhaler*) 2 puff INH Q4H PRN PRN Reason: SOB/WHEEZING Albuterol/Ipratropium (Duoneb (Albuterol 2.5 Mg/Ipratropium 0.5 Mg)) 1 neb INH [id number] AWAKE PRN PRN Reason: SOB/WHEEZING Last Admin: 06/02/18 09:50 Dose: 1 neb Aspirin (Aspirin Ec Tab*) 81 mg PO DAILY [facility] Last Admin: 06/19/18 08:54 Dose: 81 mg Device (Tiotropium Inhaler Device*) 1 each INH .USE w/ SPIRIVA CAPS [facility] Dextrose (D50w Syringe 50 Ml*) 12.5 gm IV PUSH .FOR FS < 60 - SS PRN PRN Reason: FS < 60 Diphenhydramine HCl (Benadryl Po*) 25 mg PO Q6H PRN PRN Reason: Allergy Symptoms Famotidine (Pepcid Tab*) 20 mg PO BID [facility] Last Admin: 06/19/18 08:55 Dose: 20 mg Gabapentin (Neurontin Cap(*)) 100 mg PO BID [facility] Last Admin: 06/19/18 08:55 Dose: 100 mg Guaifenesin (Mucinex*) 600 mg PO QID [facility] Last Admin: 06/19/18 12:37 Dose: 600 mg Lactobacillus Rhamnosus (Lactobacillus Acidophilus*) 1 tab PO BID [facility] Last Admin: 06/19/18 08:55 Dose: 1 tab Magnesium Oxide (Magox 400 Tab*) 800 mg PO DAILY [facility] Last Admin: 06/19/18 08:55 Dose: 800 mg Nitroglycerin (Nitroglycerin Tab 0.4 Mg*) 0.4 mg SL Q5M PRN PRN Reason: chest pain Last Admin: 06/18/18 21:32 Dose: 0.4 mg Ondansetron HCl (Zofran Inj*) 4 mg IV Q6H PRN PRN Reason: NAUSEA Oxycodone HCl (Roxycodone Tab*) 5 mg PO Q6H PRN PRN Reason: PAIN Last Admin: 06/18/18 21:34 Dose: 5 mg Rivaroxaban (Xarelto(*)) 20 mg PO BEDTIME [facility] Last Admin: 06/18/18 21:34 Dose: 20 mg Tiotropium [place] (Spiriva Cap.Inh*) 1 cap INH DAILY [facility] Last Admin: 06/19/18 07:59 Dose: 1 cap Torsemide (Torsemide) 20 mg PO DAILY [facility] Last Admin: 06/19/18 08:54 Dose: 20 mg Vital Signs - 8 hr 06/19/18 06/19/18 06/19/18 06:01 07:10 08:00 Temperature 97.0 F Pulse Rate 63 75 Respiratory 20 18 18 Rate Blood Pressure 115/63 (mmHg) O2 Sat by Pulse 97 94 Oximetry 06/19/18 06/19/18 08:55 11:38 Temperature Pulse Rate Respiratory 18 16 Rate Blood Pressure (mmHg) O2 Sat by Pulse Oximetry Oxygen Devices in Use Now: Nasal Cannula - 2L Result Diagrams: 06/19/18 06:51 06/19/18 06:51 Microbiology and Other Data: Microbiology 05/29/18 15:27 Aerobic Blood Culture - Preliminary Blood Venous No Growth Day 2 Anaerobic Blood Culture - Preliminary No Growth Day 2 05/29/18 15:27 Aerobic Blood Culture - Preliminary Blood Venous No Growth Day 2 Anaerobic Blood Culture - Preliminary No Growth Day 2 05/29/18 17:20 Urine Culture - Final Urine Providencia Stuartii Normal [place] 05/30/18 07:35 Nasal Screen MRSA (PCR) - Final Nasal Mrsa Detected 05/29/18 17:40 Influenza Types A,B Antigen - Final Nasal Specimen received for Influenza A/B Molecular testing Assess/Plan/Problems-Billing Assessment: Patient is a 62yo male with a PMH for COPD, JAIDEN, Obesity Hypoventilation, CHF, Chronic Lower Extremity Wounds, who is admitted with acute hypoxic and hypercarbic respiratory failure due to pneumonia, requiring intubation. Patient developed C. Diff - Patient Problems (1) C. difficile diarrhea Current Visit: Yes Status: Acute Code(s): A04.72 - ENTEROCOLITIS D/T CLOSTRIDIUM DIFFICILE, NOT SPCF RECUR SNOMED Code(s): 3676645516060 Comment: -Resolved -PO VancoD/Cd (06/18/18) (2) Obstructive sleep apnea Current Visit: Yes Status: Acute Code(s): G47.33 - OBSTRUCTIVE SLEEP APNEA ( ADULT) (PEDIATRIC) SNOMED Code(s): 04808462 Comment: Complicated by dCHF Trilogy at home, BiPAP in the hospital with 3L O2 (3) Pneumonia Current Visit: Yes Status: Acute Code(s): J18.9 - PNEUMONIA, UNSPECIFIED ORGANISM SNOMED Code(s): 585777209 Comment: With acute hypoxic and hypercarbic respiratory failure requiring intubation, extubated on 05/31 - now resolved. Finished antibiotic tx 06/04/18. (4) Wound of lower extremity Current Visit: Yes Status: Acute Code(s): S81.809A - UNSPECIFIED OPEN WOUND , UNSPECIFIED LOWER LEG, INIT ENCNTR SNOMED Code(s): 564631570 Comment: Continue local care. (5) Chronic respiratory failure Current Visit: Yes Status: Chronic Code(s): J96.10 - CHRONIC RESPIRATORY FAILURE, UNSP W HYPOXIA OR HYPERCAPNIA SNOMED Code(s): 29191879 Comment: Due to Obesity hypoventilation and COPD Chronic hypoxic and hypercarbic . on prn O2 at home Continue PRN inhalers. (6) Diastolic heart failure Current Visit: Yes Status: Chronic Code(s): I50.30 - UNSPECIFIED DIASTOLIC ( CONGESTIVE) HEART FAILURE SNOMED Code(s): 315799431 Comment: - Chronic - lowered Torsemide to 20 mg daily (on 06/17/18-at home pt takes 20-60 mg /day depending on SOB, edema/wt). BMP indicates mild contraction alkalosis (7) Obesity hypoventilation syndrome Current Visit: Yes Status: Chronic Code(s): E66.2 - MORBID (SEVERE) OBESITY WITH ALVEOLAR HYPOVENTILATION SNOMED Code(s): 598568113 Comment: Continue BiPAP at night with supplemental O2 (8) Sick sinus syndrome Current Visit: Yes Status: Chronic Code(s): I49.5 - SICK SINUS SYNDROME SNOMED Code(s): 40149754 Comment: pacer is in place (9) DVT prophylaxis Current Visit: No Status: Acute Code(s): LKF3990 - SNOMED Code(s): 464070386 Comment: - Xarelto Status and Disposition: -STR placement pending
[2018-06-19] MEDS: Nitroglycerin TAB 0.4 MG* 0.4 MG TAB SL PRN (18:23)
[2018-06-19] MEDS: oxyCODONE TAB* 5 MG TAB PO PRN (18:23)
[2018-06-19] MEDS: Rivaroxaban TAB(*) 20 MG TAB PO SCH (20:31)
--- NOTE | 2018-06-19 21:36 | PN ---
Subjective Date of Service: 06/19/18 Interval History: Pt c/o chest pain, jaw pain, L arm pain. He refuses tele at this time. PLAN: Troponin trend x3, EKG. Encourage telemetry use. Family History: Unchanged from Admission Social History: Unchanged from Admission Past Medical History: Unchanged from Admission Objective Active Medications: Acetaminophen (Tylenol Tab*) 650 mg PO Q6H PRN PRN Reason: FEVER/PAIN Last Admin: 06/16/18 20:33 Dose: 650 mg Albuterol (Ventolin Hfa Inhaler*) 2 puff INH Q4H PRN PRN Reason: SOB/WHEEZING Albuterol/Ipratropium (Duoneb (Albuterol 2.5 Mg/Ipratropium 0.5 Mg)) 1 neb INH [id number] AWAKE PRN PRN Reason: SOB/WHEEZING Last Admin: 06/02/18 09:50 Dose: 1 neb Aspirin (Aspirin Ec Tab*) 81 mg PO DAILY [facility] Last Admin: 06/19/18 08:54 Dose: 81 mg Device (Tiotropium Inhaler Device*) 1 each INH .USE w/ SPIRIVA CAPS [facility] Dextrose (D50w Syringe 50 Ml*) 12.5 gm IV PUSH .FOR FS < 60 - SS PRN PRN Reason: FS < 60 Diphenhydramine HCl (Benadryl Po*) 25 mg PO Q6H PRN PRN Reason: Allergy Symptoms Famotidine (Pepcid Tab*) 20 mg PO BID [facility] Last Admin: 06/19/18 20:32 Dose: 20 mg Gabapentin (Neurontin Cap(*)) 100 mg PO BID [facility] Last Admin: 06/19/18 20:32 Dose: 100 mg Guaifenesin (Mucinex*) 600 mg PO QID [facility] Last Admin: 06/19/18 20:32 Dose: 600 mg Lactobacillus Rhamnosus (Lactobacillus Acidophilus*) 1 tab PO BID [facility] Last Admin: 06/19/18 20:31 Dose: 1 tab Magnesium Oxide (Magox 400 Tab*) 800 mg PO DAILY [facility] Last Admin: 06/19/18 08:55 Dose: 800 mg Nitroglycerin (Nitroglycerin Tab 0.4 Mg*) 0.4 mg SL Q5M PRN PRN Reason: chest pain Last Admin: 06/19/18 18:23 Dose: 0.4 mg Ondansetron HCl (Zofran Inj*) 4 mg IV Q6H PRN PRN Reason: NAUSEA Oxycodone HCl (Roxycodone Tab*) 5 mg PO Q6H PRN PRN Reason: PAIN Last Admin: 06/19/18 18:23 Dose: 5 mg Rivaroxaban (Xarelto(*)) 20 mg PO BEDTIME [facility] Last Admin: 06/19/18 20:31 Dose: 20 mg Tiotropium [place] (Spiriva Cap.Inh*) 1 cap INH DAILY [facility] Last Admin: 06/19/18 07:59 Dose: 1 cap Torsemide (Torsemide) 20 mg PO DAILY [facility] Last Admin: 06/19/18 08:54 Dose: 20 mg Vital Signs - 8 hr 06/19/18 06/19/18 06/19/18 15:44 15:54 18:23 Temperature 97.7 F 97.7 F Pulse Rate 67 67 Respiratory 18 18 18 Rate Blood Pressure 133/63 133/63 (mmHg) O2 Sat by Pulse 95 95 Oximetry 06/19/18 06/19/18 06/19/18 19:21 19:26 20:32 Temperature 98.1 F 98.1 F Pulse Rate 62 62 Respiratory 17 17 20 Rate Blood Pressure 124/50 124/50 (mmHg) O2 Sat by Pulse 93 93 Oximetry Oxygen Devices in Use Now: Nasal Cannula - 2L Result Diagrams: 06/19/18 06:51 06/19/18 06:51 Microbiology and Other Data: Microbiology 05/29/18 15:27 Aerobic Blood Culture - Preliminary Blood Venous No Growth Day 2 Anaerobic Blood Culture - Preliminary No Growth Day 2 05/29/18 15:27 Aerobic Blood Culture - Preliminary Blood Venous No Growth Day 2 Anaerobic Blood Culture - Preliminary No Growth Day 2 05/29/18 17:20 Urine Culture - Final Urine Providencia Stuartii Normal [place] 05/30/18 07:35 Nasal Screen MRSA (PCR) - Final Nasal Mrsa Detected 05/29/18 17:40 Influenza Types A,B Antigen - Final Nasal Specimen received for Influenza A/B Molecular testing Assess/Plan/Problems-Billing Assessment: Patient is a 62yo male with a PMH for COPD, JAIDEN, Obesity Hypoventilation, CHF, Chronic Lower Extremity Wounds, who is admitted with acute hypoxic and hypercarbic respiratory failure due to pneumonia, requiring intubation. Patient developed C. Diff Status and Disposition: -STR placement pending
[2018-06-20 06:25] LABS: ABS Basophils 0 10^3/ul (0-0.2); ABS Eosinophils 0.2 10^3/ul (0-0.6); ABS Lymphocytes 1.1 10^3/ul (1.0-4.8); ABS Monocytes 0.5 10^3/ul (0-0.8); ABS Neutrophils 3.4 10^3/ul (1.5-7.7); ABS Nucleated RBC 0 10^3/ul; Eosinophil % 3.2 %; Hematocrit 42 % (36-46); Hemoglobin 13.4 g/dL (14.0-18.0); Lymphocyte % 21.4 %; Mean Corpuscular HGB Conc 32 g/dL (31-36); Mean Corpuscular Hemoglobin 28 pg (27-31); Mean Corpuscular Volume 87 fL (80-94); Mean Platelet Volume 9.8 fL (7.4-10.4); Nucleated Red Blood Cells % 0.1; Platelet Count 153 10^3/uL (150-450); Red Blood Count 4.79 10^6 /uL (4.18-5.48); Red Cell Distribution Width 17 % (10.5-15); White Blood Count 5.3 10^3/uL (3.5-10.8)
[2018-06-20 06:45] LABS: BUN/Creatinine Ratio 22.7 (8-20); Calcium 9.3 mg/dL (8.6-10.3); EGFR African American 106.2 (>60); EGFR Non-African American 87.8 (>60); Potassium 3.9 mmol/L (3.5-5.0)
[2018-06-20] MEDS: oxyCODONE TAB* 5 MG TAB PO PRN (07:53)
[2018-06-20] MEDS: Torsemide TAB 10 MG PO SCH (07:53)
[2018-06-20] MEDS: Gabapentin CAP(*) 100 MG PO SCH ×2 (07:53→22:04)
[2018-06-20] MEDS: Magnesium Oxide TAB* 400 MG PO SCH (07:54)
[2018-06-20] MEDS: Famotidine TAB* 20 MG PO SCH ×2 (07:54→22:03)
[2018-06-20] MEDS: Lactobacillus Acidophilus* 1 TAB PO SCH ×2 (07:54→22:04)
[2018-06-20] MEDS: guaiFENesin ER TAB 600 MG PO SCH ×4 (07:54→22:04)
[2018-06-20] MEDS: Aspirin EC TAB* 81 MG TAB.EC PO SCH (07:54)
[2018-06-20] MEDS: Tiotropium CAP.INH* CAP.INH/18 MCG (USE ORDER SET !) INH SCH (08:00)
--- NOTE | 2018-06-20 17:54 | PN ---
Subjective Date of Service: 06/20/18 Interval History: Pt seen and examined. Meds and labs reviewed. Pt complained of CP once more last night. ACS once again ruled out. CC: N/A ROS: Denied WALL/dizziness, F/C, N/V, CP, SOB, increased cough, sputum production , abd pain, diarrhea, constipation, dysuria, myalgias, arthralgias, throat pain , and new skin lesions. The rest of the 14 point ROS are unremarkable. PHYSICAL EXAM: GEN APPEARANCE: Awake, not in acute distress HEENT: NC/AT, PERRLA, moist oral mucosa, (-) throat erythema NECK: Soft, supple, (-) cervical LAD, (-)JVD HEART: S1S2 WNL, RRR, No MRG CHEST: CTA, BL, GAE, No W/R/R ABD: Soft, ND/NT, NABS 4x Q EXT: No C/C/SYLVIA bandages wrapped on BL legs for chronic venous stasis w/ superficial wounds, cdi SKIN: Warm to touch PSYCH: No active psychosis, hallucinations, depression, SI/HI Family History: Unchanged from Admission Social History: Unchanged from Admission Past Medical History: Unchanged from Admission Objective Active Medications: Acetaminophen (Tylenol Tab*) 650 mg PO Q6H PRN PRN Reason: FEVER/PAIN Last Admin: 06/16/18 20:33 Dose: 650 mg Albuterol (Ventolin Hfa Inhaler*) 2 puff INH Q4H PRN PRN Reason: SOB/WHEEZING Albuterol/Ipratropium (Duoneb (Albuterol 2.5 Mg/Ipratropium 0.5 Mg)) 1 neb INH [id number] AWAKE PRN PRN Reason: SOB/WHEEZING Last Admin: 06/02/18 09:50 Dose: 1 neb Aspirin (Aspirin Ec Tab*) 81 mg PO DAILY [facility] Last Admin: 06/20/18 07:54 Dose: 81 mg Device (Tiotropium Inhaler Device*) 1 each INH .USE w/ SP[facility]S [facility] Dextrose (D50w Syringe 50 Ml*) 12.5 gm IV PUSH .FOR FS < 60 - SS PRN PRN Reason: FS < 60 Diphenhydramine HCl (Benadryl Po*) 25 mg PO Q6H PRN PRN Reason: Allergy Symptoms Famotidine (Pepcid Tab*) 20 mg PO BID [facility] Last Admin: 06/20/18 07:54 Dose: 20 mg Gabapentin (Neurontin Cap(*)) 100 mg PO BID [facility] Last Admin: 06/20/18 07:53 Dose: 100 mg Guaifenesin (Mucinex*) 600 mg PO QID [facility] Last Admin: 06/20/18 17:13 Dose: 600 mg Lactobacillus Rhamnosus (Lactobacillus Acidophilus*) 1 tab PO BID [facility] Last Admin: 06/20/18 07:54 Dose: 1 tab Magnesium Oxide (Magox 400 Tab*) 800 mg PO DAILY [facility] Last Admin: 06/20/18 07:54 Dose: 800 mg Nitroglycerin (Nitroglycerin Tab 0.4 Mg*) 0.4 mg SL Q5M PRN PRN Reason: chest pain Last Admin: 06/19/18 18:23 Dose: 0.4 mg Ondansetron HCl (Zofran Inj*) 4 mg IV Q6H PRN PRN Reason: NAUSEA Oxycodone HCl (Roxycodone Tab*) 5 mg PO Q6H PRN PRN Reason: PAIN Last Admin: 06/20/18 07:53 Dose: 5 mg Rivaroxaban (Xarelto(*)) 20 mg PO BEDTIME [facility] Last Admin: 06/19/18 20:31 Dose: 20 mg Tiotropium [place] (Spiriva Cap.Inh*) 1 cap INH DAILY [facility] Last Admin: 06/20/18 08:00 Dose: 1 cap Torsemide (Torsemide) 20 mg PO DAILY [facility] Last Admin: 06/20/18 07:53 Dose: Not Given Vital Signs - 8 hr 06/20/18 11:58 Temperature 97.8 F Pulse Rate 65 Respiratory 16 Rate Blood Pressure 129/67 (mmHg) O2 Sat by Pulse 93 Oximetry Oxygen Devices in Use Now: Nasal Cannula Result Diagrams: 06/20/18 06:11 06/20/18 06:11 Microbiology and Other Data: Microbiology 05/29/18 15:27 Aerobic Blood Culture - Preliminary Blood Venous No Growth Day 2 Anaerobic Blood Culture - Preliminary No Growth Day 2 05/29/18 15:27 Aerobic Blood Culture - Preliminary Blood Venous No Growth Day 2 Anaerobic Blood Culture - Preliminary No Growth Day 2 05/29/18 17:20 Urine Culture - Final Urine Providencia Stuartii Normal [place] 05/30/18 07:35 Nasal Screen MRSA (PCR) - Final Nasal Mrsa Detected 05/29/18 17:40 Influenza Types A,B Antigen - Final Nasal Specimen received for Influenza A/B Molecular testing Assess/Plan/Problems-Billing Assessment: Patient is a 62yo male with a PMH for COPD, JAIDEN, Obesity Hypoventilation, CHF, Chronic Lower Extremity Wounds, who is admitted with acute hypoxic and hypercarbic respiratory failure due to pneumonia, requiring intubation. Patient developed C. Diff - Patient Problems (1) Chest pain Current Visit: No Status: Acute Code(s): R07.9 - CHEST PAIN, UNSPECIFIED SNOMED Code(s): 96320960 Comment: -Resolved -As previously described, CP likely musculoskeletal -ACS ruled out once more; if continues to intermittently persist, consider stress test in a few weeks outpatient (2) C. difficile diarrhea Current Visit: Yes Status: Acute Code(s): A04.72 - ENTEROCOLITIS D/T CLOSTRIDIUM DIFFICILE, NOT SPCF RECUR SNOMED Code(s): 3204244062054 Comment: -Resolved -PO VancoD/Cd (06/18/18) (3) Obstructive sleep apnea Current Visit: Yes Status: Acute Code(s): G47.33 - OBSTRUCTIVE SLEEP APNEA ( ADULT) (PEDIATRIC) SNOMED Code(s): 18297062 Comment: Complicated by dCHF Trilogy at home, BiPAP in the hospital with 3L O2 (4) Pneumonia Current Visit: Yes Status: Acute Code(s): J18.9 - PNEUMONIA, UNSPECIFIED ORGANISM SNOMED Code(s): 675027322 Comment: With acute hypoxic and hypercarbic respiratory failure requiring intubation, extubated on 05/31 - now resolved. Finished antibiotic tx 06/04/18. (5) Wound of lower extremity Current Visit: Yes Status: Acute Code(s): S81.809A - UNSPECIFIED OPEN WOUND , UNSPECIFIED LOWER LEG, INIT ENCNTR SNOMED Code(s): 586431872 Comment: Continue local care. (6) Chronic respiratory failure Current Visit: Yes Status: Chronic Code(s): J96.10 - CHRONIC RESPIRATORY FAILURE, UNSP W HYPOXIA OR HYPERCAPNIA SNOMED Code(s): 91349771 Comment: Due to Obesity hypoventilation and COPD Chronic hypoxic and hypercarbic . on prn O2 at home Continue PRN inhalers. (7) Diastolic heart failure Current Visit: Yes Status: Chronic Code(s): I50.30 - UNSPECIFIED DIASTOLIC ( CONGESTIVE) HEART FAILURE SNOMED Code(s): 241160759 Comment: - Chronic - lowered Torsemide to 20 mg daily (on 06/17/18-at home pt takes 20-60 mg /day depending on SOB, edema/wt). BMP indicates mild contraction alkalosis (8) Obesity hypoventilation syndrome Current Visit: Yes Status: Chronic Code(s): E66.2 - MORBID (SEVERE) OBESITY WITH ALVEOLAR HYPOVENTILATION SNOMED Code(s): 647071557 Comment: Continue BiPAP at night with supplemental O2 (9) Sick sinus syndrome Current Visit: Yes Status: Chronic Code(s): I49.5 - SICK SINUS SYNDROME SNOMED Code(s): 61032009 Comment: pacer is in place (10) DVT prophylaxis Current Visit: No Status: Acute Code(s): KVE1447 - SNOMED Code(s): 648150686 Comment: - Xarelto Status and Disposition: -STR placement pending
[2018-06-20] MEDS: Rivaroxaban TAB(*) 20 MG TAB PO SCH (22:03)
[2018-06-20] MEDS ORDERED: Torsemide TAB* 20 MG PO ONE (22:10)
[2018-06-20] MEDS ORDERED: Torsemide TAB 10 MG PO ONE (23:00)
[2018-06-21] MEDS: Tiotropium CAP.INH* CAP.INH/18 MCG (USE ORDER SET !) INH SCH (08:11)
[2018-06-21] MEDS: Gabapentin CAP(*) 100 MG PO SCH ×2 (08:12→21:32)
[2018-06-21] MEDS: guaiFENesin ER TAB 600 MG PO SCH ×4 (08:13→21:32)
[2018-06-21] MEDS: Torsemide TAB 10 MG PO SCH (08:13)
[2018-06-21] MEDS: Aspirin EC TAB* 81 MG TAB.EC PO SCH (08:13)
[2018-06-21] MEDS: Famotidine TAB* 20 MG PO SCH ×2 (08:13→21:31)
[2018-06-21] MEDS: Magnesium Oxide TAB* 400 MG PO SCH (08:13)
[2018-06-21] MEDS: Lactobacillus Acidophilus* 1 TAB PO SCH ×2 (08:13→21:31)
--- NOTE | 2018-06-21 15:27 | PN ---
Subjective Date of Service: 06/21/18 Interval History: Pt seen and examined. Meds and labs reviewed. No o/n issues. CC: N/A ROS: Denied WALL/dizziness, F/C, N/V, CP, SOB, increased cough, sputum production , abd pain, diarrhea, constipation, dysuria, myalgias, arthralgias, throat pain , and new skin lesions. The rest of the 14 point ROS are unremarkable. PHYSICAL EXAM: GEN APPEARANCE: Awake, not in acute distress HEENT: NC/AT, PERRLA, moist oral mucosa, (-) throat erythema NECK: Soft, supple, (-) cervical LAD, (-)JVD HEART: S1S2 WNL, RRR, No MRG CHEST: CTA, BL, GAE, No W/R/R ABD: Soft, ND/NT, NABS 4x Q EXT: No C/C/SYLVIA bandages wrapped on BL legs for chronic venous stasis w/ superficial wounds, cdi SKIN: Warm to touch PSYCH: No active psychosis, hallucinations, depression, SI/HI Family History: Unchanged from Admission Social History: Unchanged from Admission Past Medical History: Unchanged from Admission Objective Active Medications: Acetaminophen (Tylenol Tab*) 650 mg PO Q6H PRN PRN Reason: FEVER/PAIN Last Admin: 06/16/18 20:33 Dose: 650 mg Albuterol (Ventolin Hfa Inhaler*) 2 puff INH Q4H PRN PRN Reason: SOB/WHEEZING Albuterol/Ipratropium (Duoneb (Albuterol 2.5 Mg/Ipratropium 0.5 Mg)) 1 neb INH [id number] AWAKE PRN PRN Reason: SOB/WHEEZING Last Admin: 06/02/18 09:50 Dose: 1 neb Aspirin (Aspirin Ec Tab*) 81 mg PO DAILY [facility] Last Admin: 06/21/18 08:13 Dose: 81 mg Device (Tiotropium Inhaler Device*) 1 each INH .USE w/ SPIRIVA CAPS [facility] Dextrose (D50w Syringe 50 Ml*) 12.5 gm IV PUSH .FOR FS < 60 - SS PRN PRN Reason: FS < 60 Diphenhydramine HCl (Benadryl Po*) 25 mg PO Q6H PRN PRN Reason: Allergy Symptoms Famotidine (Pepcid Tab*) 20 mg PO BID [facility] Last Admin: 06/21/18 08:13 Dose: 20 mg Gabapentin (Neurontin Cap(*)) 100 mg PO BID [facility] Last Admin: 06/21/18 08:12 Dose: 100 mg Guaifenesin (Mucinex*) 600 mg PO QID [facility] Last Admin: 06/21/18 12:12 Dose: 600 mg Lactobacillus Rhamnosus (Lactobacillus Acidophilus*) 1 tab PO BID [facility] Last Admin: 06/21/18 08:13 Dose: 1 tab Magnesium Oxide (Magox 400 Tab*) 800 mg PO DAILY [facility] Last Admin: 06/21/18 08:13 Dose: 800 mg Nitroglycerin (Nitroglycerin Tab 0.4 Mg*) 0.4 mg SL Q5M PRN PRN Reason: chest pain Last Admin: 06/19/18 18:23 Dose: 0.4 mg Ondansetron HCl (Zofran Inj*) 4 mg IV Q6H PRN PRN Reason: NAUSEA Oxycodone HCl (Roxycodone Tab*) 5 mg PO Q6H PRN PRN Reason: PAIN Last Admin: 06/20/18 07:53 Dose: 5 mg Rivaroxaban (Xarelto(*)) 20 mg PO BEDTIME [facility] Last Admin: 06/20/18 22:03 Dose: 20 mg Tiotropium [place] (Spiriva Cap.Inh*) 1 cap INH DAILY [facility] Last Admin: 06/21/18 08:11 Dose: 1 cap Torsemide (Torsemide) 20 mg PO DAILY [facility] Last Admin: 06/21/18 08:13 Dose: Not Given Vital Signs - 8 hr 06/21/18 06/21/18 06/21/18 08:00 08:12 08:34 Temperature 97.6 F Pulse Rate 88 70 Respiratory 20 16 20 Rate Blood Pressure 136/70 (mmHg) O2 Sat by Pulse 94 93 Oximetry 06/21/18 06/21/18 09:47 11:45 Temperature 97.6 F Pulse Rate 71 Respiratory 16 18 Rate Blood Pressure 99/52 (mmHg) O2 Sat by Pulse 90 Oximetry Oxygen Devices in Use Now: Nasal Cannula Result Diagrams: 06/20/18 06:11 06/20/18 06:11 Microbiology and Other Data: Microbiology 05/29/18 15:27 Aerobic Blood Culture - Preliminary Blood Venous No Growth Day 2 Anaerobic Blood Culture - Preliminary No Growth Day 2 05/29/18 15:27 Aerobic Blood Culture - Preliminary Blood Venous No Growth Day 2 Anaerobic Blood Culture - Preliminary No Growth Day 2 05/29/18 17:20 Urine Culture - Final Urine Providencia Stuartii Normal [place] 05/30/18 07:35 Nasal Screen MRSA (PCR) - Final Nasal Mrsa Detected 05/29/18 17:40 Influenza Types A,B Antigen - Final Nasal Specimen received for Influenza A/B Molecular testing Assess/Plan/Problems-Billing Assessment: Patient is a 62yo male with a PMH for COPD, JAIDEN, Obesity Hypoventilation, CHF, Chronic Lower Extremity Wounds, who is admitted with acute hypoxic and hypercarbic respiratory failure due to pneumonia, requiring intubation. Patient developed C. Diff - Patient Problems (1) C. difficile diarrhea Current Visit: Yes Status: Acute Code(s): A04.72 - ENTEROCOLITIS D/T CLOSTRIDIUM DIFFICILE, NOT SPCF RECUR SNOMED Code(s): 9213034085153 Comment: -Resolved -PO VancoD/Cd (06/18/18) (2) Obstructive sleep apnea Current Visit: Yes Status: Acute Code(s): G47.33 - OBSTRUCTIVE SLEEP APNEA ( ADULT) (PEDIATRIC) SNOMED Code(s): 37359488 Comment: Complicated by dCHF Trilogy at home, BiPAP in the hospital with 3L O2 (3) Pneumonia Current Visit: Yes Status: Acute Code(s): J18.9 - PNEUMONIA, UNSPECIFIED ORGANISM SNOMED Code(s): 275827541 Comment: With acute hypoxic and hypercarbic respiratory failure requiring intubation, extubated on 05/31 - now resolved. Finished antibiotic tx 06/04/18. (4) Wound of lower extremity Current Visit: Yes Status: Acute Code(s): S81.809A - UNSPECIFIED OPEN WOUND , UNSPECIFIED LOWER LEG, INIT ENCNTR SNOMED Code(s): 249115386 Comment: Continue local care. (5) Chronic respiratory failure Current Visit: Yes Status: Chronic Code(s): J96.10 - CHRONIC RESPIRATORY FAILURE, UNSP W HYPOXIA OR HYPERCAPNIA SNOMED Code(s): 78224186 Comment: Due to Obesity hypoventilation and COPD Chronic hypoxic and hypercarbic . on prn O2 at home Continue PRN inhalers. (6) Diastolic heart failure Current Visit: Yes Status: Chronic Code(s): I50.30 - UNSPECIFIED DIASTOLIC ( CONGESTIVE) HEART FAILURE SNOMED Code(s): 399261169 Comment: - Chronic - lowered Torsemide to 20 mg daily (on 06/17/18-at home pt takes 20-60 mg /day depending on SOB, edema/wt). BMP indicates mild contraction alkalosis (7) Obesity hypoventilation syndrome Current Visit: Yes Status: Chronic Code(s): E66.2 - MORBID (SEVERE) OBESITY WITH ALVEOLAR HYPOVENTILATION SNOMED Code(s): 346396490 Comment: Continue BiPAP at night with supplemental O2 (8) Sick sinus syndrome Current Visit: Yes Status: Chronic Code(s): I49.5 - SICK SINUS SYNDROME SNOMED Code(s): 61591801 Comment: pacer is in place (9) DVT prophylaxis Current Visit: No Status: Acute Code(s): ILR0810 - SNOMED Code(s): 653653348 Comment: - Xarelto Status and Disposition: -STR placement pending
[2018-06-21] MEDS: Albuterol/Ipratropium NEB.SOL* Albuterol 2.5 MG/Ipratropium 0.5 MG 3 ML INH PRN (21:31)
[2018-06-21] MEDS: Acetaminophen TAB* 325 MG PO PRN (21:31)
[2018-06-21] MEDS: Rivaroxaban TAB(*) 20 MG TAB PO SCH (21:32)
[2018-06-21] MEDS: oxyCODONE TAB* 5 MG TAB PO PRN (21:33)
--- NOTE | 2018-06-21 23:24 | PN ---
Hospitalist Progress Note Cross coverage note: Called to bedside for brief episode of sharp left-sided chest pain. Pt reports that he has been having this chest pain for years, intermittently. It usually happens at night. Since hospitalization, he has experienced this pain nightly. It lasts up to 10 minutes and then will spontaneously resolve. It is sometimes associated with dyspnea and diaphoresis, and it was tonight, again. The chest pain resolved before exam. He reports that it started to get better before nebs were administered, then resolved. Exam: vital signs stable well appearing, conversant, speaking in full sentences, not diaphoretic chest pain not reproducible on palpation cardiac exam with systolic murmur lungs clear anteriorly Noted that troponins have been drawn twice a day for the last 3 days and have remained normal. EKG unremarkable compared to priors. A/P: Unclear etiology for chest pain. Symptoms not consistent with anginal pain, and chronology also does not fit with cardiopulmonary or [facility] pathology. Pt denies anxiety, although states he is depressed about going back to a facility. Will hold off on further troponins given multiple negative troponins after the same type of pain. Maintain on telemetry in case pt is going in and out of arrhythmia.
[2018-06-22 03:14] VITALS: BP 127/55
[2018-06-22] MEDS: Aspirin EC TAB* 81 MG TAB.EC PO SCH (08:17)
[2018-06-22] MEDS: Famotidine TAB* 20 MG PO SCH (08:17)
[2018-06-22] MEDS: Magnesium Oxide TAB* 400 MG PO SCH (08:17)
[2018-06-22] MEDS: Gabapentin CAP(*) 100 MG PO SCH (08:17)
[2018-06-22] MEDS: Torsemide TAB 10 MG PO SCH (08:17)
[2018-06-22] MEDS: Lactobacillus Acidophilus* 1 TAB PO SCH (08:17)
[2018-06-22] MEDS: guaiFENesin ER TAB 600 MG PO SCH (08:18)
[2018-06-22] MEDS: Tiotropium CAP.INH* CAP.INH/18 MCG (USE ORDER SET !) INH SCH (08:56)
--- NOTE | 2018-06-22 10:36 | PN ---
Subjective Date of Service: 06/22/18 Interval History: Naveed is feeling well. He is discouraged he needs to go to [facility] but is willing to go and get stronger to then get back home. He does not think he was fairly evaluated by PT to determine what he is actually capable of doing. He denies any pain. He states he still has urgency to have BMs but his stool is soft. He denies any significant SOB. Family History: Unchanged from Admission Social History: Unchanged from Admission Past Medical History: Unchanged from Admission Objective Active Medications: Acetaminophen (Tylenol Tab*) 650 mg PO Q6H PRN PRN Reason: FEVER/PAIN Last Admin: 06/21/18 21:31 Dose: 650 mg Albuterol (Ventolin Hfa Inhaler*) 2 puff INH Q4H PRN PRN Reason: SOB/WHEEZING Albuterol/Ipratropium (Duoneb (Albuterol 2.5 Mg/Ipratropium 0.5 Mg)) 1 neb INH RT.[id number] AWAKE PRN PRN Reason: SOB/WHEEZING Last Admin: 06/21/18 21:31 Dose: 1 neb Aspirin (Aspirin Ec Tab*) 81 mg PO DAILY [facility] Last Admin: 06/22/18 08:17 Dose: 81 mg Device (Tiotropium Inhaler Device*) 1 each INH .USE w/ SPIRIVA CAPS [facility] Dextrose (D50w Syringe 50 Ml*) 12.5 gm IV PUSH .FOR FS < 60 - SS PRN PRN Reason: FS < 60 Diphenhydramine HCl (Benadryl Po*) 25 mg PO Q6H PRN PRN Reason: Allergy Symptoms Famotidine (Pepcid Tab*) 20 mg PO BID [facility] Last Admin: 06/22/18 08:17 Dose: 20 mg Gabapentin (Neurontin Cap(*)) 100 mg PO BID [facility] Last Admin: 06/22/18 08:17 Dose: 100 mg Guaifenesin (Mucinex*) 600 mg PO QID [facility] Last Admin: 06/22/18 08:18 Dose: 600 mg Lactobacillus Rhamnosus (Lactobacillus Acidophilus*) 1 tab PO BID [facility] Last Admin: 06/22/18 08:17 Dose: 1 tab Magnesium Oxide (Magox 400 Tab*) 800 mg PO DAILY [facility] Last Admin: 06/22/18 08:17 Dose: 800 mg Nitroglycerin (Nitroglycerin Tab 0.4 Mg*) 0.4 mg SL Q5M PRN PRN Reason: chest pain Last Admin: 06/19/18 18:23 Dose: 0.4 mg Ondansetron HCl (Zofran Inj*) 4 mg IV Q6H PRN PRN Reason: NAUSEA Oxycodone HCl (Roxycodone Tab*) 5 mg PO Q6H PRN PRN Reason: PAIN Last Admin: 06/21/18 21:33 Dose: 5 mg Rivaroxaban (Xarelto(*)) 20 mg PO BEDTIME [facility] Last Admin: 06/21/18 21:32 Dose: 20 mg Tiotropium [place] (Spiriva Cap.Inh*) 1 cap INH DAILY [facility] Last Admin: 06/22/18 08:56 Dose: 1 cap Torsemide (Torsemide) 20 mg PO DAILY [facility] Last Admin: 06/22/18 08:17 Dose: 20 mg Vital Signs - 8 hr 06/22/18 06/22/18 06/22/18 03:13 08:00 08:17 Temperature 97.7 F Pulse Rate 71 Respiratory 18 16 18 Rate Blood Pressure 127/55 (mmHg) O2 Sat by Pulse 97 Oximetry 06/22/18 08:58 Temperature Pulse Rate 64 Respiratory 18 Rate Blood Pressure (mmHg) O2 Sat by Pulse 93 Oximetry Oxygen Devices in Use Now: Nasal Cannula Appearance: Morbidly obese male sitting up in bed, NAD Eyes: No Scleral Icterus Ears/Nose/Mouth/Throat: Mucous Membranes Moist Respiratory: Symmetrical Chest Expansion and Respiratory Effort, Clear to Auscultation - anteriorly Cardiovascular: NL Sounds; No Murmurs; No JVD - distant heart sounds, RRR, - - 1 + LE edema Abdominal: NL Sounds; No Tenderness; No Distention - obese Extremities: No Clubbing, Cyanosis Skin: No Nodules or Sclerosis, - - L lateral lower leg with quarter sized open shallow ulcer, R anterior lower leg with 3 larger shallow ulcerations, scant bleeding noted from legs. Lower leg skin bilaterally is erythematous, there are crusted scabs scattered on the lower legs Neurological: Alert and Oriented x 3 Result Diagrams: 06/20/18 06:11 06/20/18 06:11 Microbiology and Other Data: Microbiology 05/29/18 15:27 Aerobic Blood Culture - Preliminary Blood Venous No Growth Day 2 Anaerobic Blood Culture - Preliminary No Growth Day 2 05/29/18 15:27 Aerobic Blood Culture - Preliminary Blood Venous No Growth Day 2 Anaerobic Blood Culture - Preliminary No Growth Day 2 05/29/18 17:20 Urine Culture - Final Urine Providencia Stuartii Normal [place] 05/30/18 07:35 Nasal Screen MRSA (PCR) - Final Nasal Mrsa Detected 05/29/18 17:40 Influenza Types A,B Antigen - Final Nasal Specimen received for Influenza A/B Molecular testing Assess/Plan/Problems-Billing Mr Shafer is a 62yo male with a PMH for COPD, JAIDEN, Obesity Hypoventilation, CHF , Chronic Lower Extremity Wounds, who is admitted with acute hypoxic and hypercarbic respiratory failure due to pneumonia and diastolic CHF, requiring intubation the day of admission. He subsequently developed C. Diff which treatment is now complete. Plan is for the patient to go to STR at [facility] in [place] today. Status and Disposition: -STR placement pending
--- NOTE | 2018-06-22 11:22 | DS ---
CC: Dr. Gilliland* DATE OF ADMISSION: 05/29/2018. DATE OF DISCHARGE: 06/22/2018. PRIMARY CARE PHYSICIAN: Dr. Gilliland. PRINCIPAL DIAGNOSES: 1. Acute and hypercarbic respiratory failure secondary to pneumonia and diastolic congestive heart failure in the setting of underlying COPD and obesity hypoventilation syndrome. 2. C. difficile colitis. 3. Pneumonia. 4. Chronic venous stasis ulcerations to the bilateral lower extremities. SECONDARY DIAGNOSES: 1. Obstructive sleep apnea and obesity hypoventilation syndrome. 2. Sick sinus syndrome, status post pacemaker. 3. Chronic hypoxic and hypercarbic respiratory failure. 4. History of pulmonary embolism. DISCHARGE MEDICATIONS: 1. Aspirin 81 mg p.o. daily. 2. Albuterol two puffs inhaled q.4 hours prn shortness of breath. 3. Nitroglycerin 0.4 mg SL q.5 minutes prn chest pain. 4. Benadryl 25 mg p.o. q.6 hours prn allergy symptoms. 5. Xarelto 20 mg p.o. daily. 6. Oxycodone 5 mg p.o. q.6 hours prn pain. 7. Guaifenesin 600 mg p.o. b.i.d. prn congestion. 8. Torsemide 40 mg p.o. daily. 9. Spiriva one puff inhaled daily. 10. Lactobacillus one tab p.o. b.i.d. 11. Gabapentin 100 mg p.o. b.i.d. 12. Famotidine 20 mg p.o. b.i.d. 13. DuoNeb one neb inhaled q.4 hours prn shortness of breath. 14. Tylenol 650 mg p.o. q.6 hours prn pain. HOSPITAL COURSE: Mr. Shafer is a 62-year-old male with a complicated medical history and well-known to the Hospitalist Service for multiple prior hospitalizations who presented to the emergency room on 05/29/2018 with complaints of chest pain and shortness of breath, and was admitted for acute on chronic hypoxic and hypercarbic respiratory failure secondary to likely diastolic congestive heart failure. On the evening of 05/29/2018, the patient required to be intubated due to being obtunded despite being on BiPAP. The patient was quickly liberalized from mechanical ventilation on 05/31/2018. The patient was felt to have a community acquired pneumonia. He was, however, treated with broad spectrum IV antibiotics due to his recent stay within the hospital. The patient has slowly recovered from his respiratory illness and now is on 3 liters of oxygen continuously and BiPAP 20/8 with 3 liters of oxygen with sleep. Of note, the patient does use Trilogy at home, though it is unclear that he will be able to bring this to rehab with him and therefore he will utilize BiPAP settings. Early on in the course of the hospitalization, the patient developed profuse diarrhea. At one point, he required a rectal tube. This was positive for C. difficile. The patient was treated from 06/01/2018 through 06/18/2018. The patient also had significant chronic venous stasis ulcerations to the bilateral lower extremities. He was seen by Wound nursing. Recommendations for calcium alginate on the open wounds covered by oil emulsion gauze if the dressing is otherwise sticking, wrapped then in rolled gauzed and SYLVIA wraps. The patient has had improvement in the legs since being in the hospital. The patient did require a bump up in his Torsemide dose. It was felt that he was fluid overloaded during the course of his hospitalization. His creatinine has remained stable despite the aggressive diuresis. His weight has crept up and this will need to be monitored at rehab. In terms of his COPD, he was never felt to be in a COPD exacerbation. He will continue on Spiriva and prn Albuterol and DuoNebs. He will have Guaifenesin for congestion. The bulk of this patient's hospitalization was waiting for short-term rehab bed offer. He has been working with Physical Therapy who did not feel at home with his usual aides would be appropriate at this time, though the patient is very anxious to return home back to his house and his usual routine. FOLLOW-UP CONCERNS: The patient is being discharge to [facility] today, 06/22/2018. Upon returning home from short-term rehab, the patient should see his primary care provider in very short order as he is always in a tenuous state. ACTIVITY LEVEL: As tolerated. DIET: Heart-healthy. CONDITION ON DISCHARGE: Stable. TIME SPENT: Forty-five minutes were spent discharging this patient. Please see the complete medical record for further details of this prolonged and complicated hospitalization. [id number]/[facility] #: [id number] [facility]
== END 2018-06-22 12:30 | DRG 720 ==
LOC: ED 11:37 → ICU 15:16 → MEDTELE 06-01 18:00
PROVIDERS: ADMIT Internal Medicine; ATTEND Hospitalist
PROC: 5A09457 Assistance with Respiratory Ventilation, 24-96 Consecutive Hours, Continuous Positive Airway Pressure (ICD-10-PCS; principal; 2018-05-29)
DX: A41.9 Sepsis, unspecified organism (principal); J18.9 Pneumonia, unspecified organism; J96.21 Acute and chronic respiratory failure with hypoxia; J96.22 Acute and chronic respiratory failure with hypercapnia; I50.33 Acute on chronic diastolic (congestive) heart failure; J44.0 Chronic obstructive pulmonary disease with (acute) lower respiratory infection; J44.1 Chronic obstructive pulmonary disease with (acute) exacerbation; E66.2 Morbid (severe) obesity with alveolar hypoventilation; I13.0 Hypertensive heart and chronic kidney disease with heart failure and stage 1 through stage 4 chronic kidney disease, or unspecified chronic kidney disease; A04.72 Enterocolitis due to Clostridium difficile, not specified as recurrent; Z68.44 Body mass index [BMI] 60.0-69.9, adult; L03.116 Cellulitis of left lower limb; L03.115 Cellulitis of right lower limb; L97.929 Non-pressure chronic ulcer of unspecified part of left lower leg with unspecified severity; L97.919 Non-pressure chronic ulcer of unspecified part of right lower leg with unspecified severity; E87.3 Alkalosis; I25.10 Atherosclerotic heart disease of native coronary artery without angina pectoris; E78.00 Pure hypercholesterolemia, unspecified; I10 Essential (primary) hypertension; E11.51 Type 2 diabetes mellitus with diabetic peripheral angiopathy without gangrene; N18.9 Chronic kidney disease, unspecified; E11.22 Type 2 diabetes mellitus with diabetic chronic kidney disease; M19.90 Unspecified osteoarthritis, unspecified site; D69.6 Thrombocytopenia, unspecified; E11.65 Type 2 diabetes mellitus with hyperglycemia; I77.819 Aortic ectasia, unspecified site; E11.42 Type 2 diabetes mellitus with diabetic polyneuropathy; I48.91 Unspecified atrial fibrillation; E87.6 Hypokalemia; E83.39 Other disorders of phosphorus metabolism; I89.0 Lymphedema, not elsewhere classified; I87.8 Other specified disorders of veins; F32.9 Major depressive disorder, single episode, unspecified; Z88.1 Allergy status to other antibiotic agents; Z91.030 Bee allergy status; Z91.018 Allergy to other foods; Z86.718 Personal history of other venous thrombosis and embolism; Z86.711 Personal history of pulmonary embolism; Z87.442 Personal history of urinary calculi; Z89.432 Acquired absence of left foot; Z89.431 Acquired absence of right foot; Z86.14 Personal history of Methicillin resistant Staphylococcus aureus infection; Z95.0 Presence of cardiac pacemaker; Z80.1 Family history of malignant neoplasm of trachea, bronchus and lung; Z82.0 Family history of epilepsy and other diseases of the nervous system
CPT/HCPCS: 36415; 36600; 71045; 71275; 80048; 80053; 80202; 81003; 81015; 82550; 82553; 82803; 83036; 83605; 83630; 83735; 83880; 84100; 84484; 84630; 85025; 85379; 86140; 87040; 87077; 87086; 87186; 87493; 87641; 93005; 94002; 94003; 94640; 94660; 94667; 99285; A9270-GY; G8978-GP-CL; G8979-GP-CI; J0330; J0692; J0696; J1885; J1940; J2405; J2543; J2704; J2930; J3370; J3475; J3480; Q9967

== ENCOUNTER 2018-08-06 19:24 | Inpatient (IN) | payer MEDICAID ==
--- NOTE | 2018-08-06 19:55 | ED ---
Shortness of Breath - HPI Summary HPI Summary: Pt is a 62 y/o M presenting to the ED brought in by EMS for shortness of breath. Per EMS, on arrival he was at 92-93% SaO2 on a BiPAP and complaining of light pressure on his chest. His BP was fluctuant, and he has hx of COPD as well as CHF, and has recently gotten out of rehab. The pt states this was first onset just this afternoon, and that he just got out of rehab yesterday. He c/o lightheadedness, dizziness, and SOB. He denies fever, cough, and chest pain. - History of Current Complaint Chief Complaint: EDShortnessOfBreath Hx Obtained From: Patient Onset/Duration: Sudden Onset, Lasting Hours, Still Present Timing: Constant Current Severity: Severe Dyspnea At: Rest Aggrevating Factors: Nothing Alleviating Factors: Oxygen Associated Signs & Symptoms: Dizzy - Allergy/Home Medications Allergies/Adverse Reactions: Allergies Allergy/AdvReac Type Severity Reaction Status Date / Time clindamycin Allergy Intermediate Pruritus, Verified 05/09/18 10:29 Flushing of Skin bee venom protein (honey bee) Allergy Anaphylatic Verified 05/09/18 10:29 Shock walnut Allergy Anaphylatic Verified 05/09/18 10:29 Shock PMH/Surg Hx/FS Hx/Imm Hx Previously Healthy: No Endocrine/Hematology History: Reports: Hx Anticoagulant Therapy - xarelto, Hx Diabetes, Hx Anemia, Other Endocrine/Hematological Disorders - hypoglycemia Denies: Hx Systemic Lupus Erythematosus Cardiovascular History: Reports: Hx Congestive Heart Failure, Hx Coronary Artery Disease, Hx Deep Vein Thrombosis, Hx Embolism - pulmonary embolism, takes xarelto, Hx Hypercholesterolemia, Hx Hypertension, Hx Pacemaker/ICD, Hx Peripheral Vascular Disease - SSS, Hx Syncope, Other Cardiovascular Problems/ Disorders - cardiac cath Respiratory History: Reports: Hx Chronic Obstructive Pulmonary Disease (COPD) - on 2L home O2, trilogy at night, Hx Pneumonia, Hx Pulmonary Embolism, Hx Seasonal Allergies, Hx Sleep Apnea, Other Respiratory Problems/Disorders - SLEEP APNEA, ON 2 L O2 @ NIGHT, obesity hypoventilation Denies: Hx Asthma, Hx Bronchopulmonary Dysplasia, Hx Chronic Bronchitis, Hx Cystic Fibrosis, Hx Lung Cancer, Hx Pleural Effusion, Hx Pulmonary Edema GI History: Reports: Hx Gastrointestinal Bleed, Hx Hiatal Hernia, Other GI Disorders - umbilical hernia, stool softener at home, constipation Denies: Hx Cirrhosis, Hx Crohn's Disease, Hx Diverticulosis, Hx Gall Bladder Disease, Hx Gastroesophageal Reflux Disease, Hx Irritable Bowel, Hx Jaundice, Hx Obstructive Bowel, Hx Ileostomy, Hx Pyloric Stenosis, Hx Ulcer History: Reports: Hx Acute Renal Failure, Hx Chronic Renal Failure, Hx Kidney Stones, Hx Renal Disease - 3 episodes of renal failure Denies: Hx Benign Prostatic Hyperplasia, Hx Dialysis, Hx Kidney Infection, Other Problems/Disorders Musculoskeletal History: Reports: Hx Arthritis, Hx Back Problems, Other Musculoskeletal History - bilateral metatarsal amputation Denies: Hx Rheumatoid Arthritis, Hx Bursitis, Hx Congenital Bone Abnormalities Sensory History: Reports: Other Sensory Impairments - Neuropathy in feet Denies: Hx Contacts or Glasses, Hx Deafness, Hx Hearing Aid Opthamlomology History: Reports: Other Sensory Impairments - Neuropathy in feet Denies: Hx Contacts or Glasses Neurological History: Reports: Hx Headaches, Other Neuro Impairments/Disorders - frequent syncope, pt states possible stroke in past Psychiatric History: Reports: Hx Depression Denies: Hx of Violent Episodes Against Others - Cancer History Hx Chemotherapy: No - Surgical History Surgery Procedure, Year, and Place: Bilateral metatarsal amputations. Pacemaker. Surgical ureterolith extraction Hx Anesthesia Reactions: No - Immunization History Date of Tetanus Vaccine: PT STATES UNSURE Date of Influenza Vaccine: NONE Infectious Disease History: No Infectious Disease History: Reports: Hx of Known/Suspected MRSA Denies: Traveled Outside the [place] in Last 30 Days - Family History Known Family History: Positive: Diabetes Negative: Other - denies FHx of depression - Social History Alcohol Use: None Hx Substance Use: Yes - Narcotics Substance Use Type: Reports: Other Substance Use Comment - Amount & Last Used: chronic narcotic use Hx Tobacco Use: No Smoking Status (MU): Never Smoked Tobacco Have You Smoked in the Last Year: No Review of Systems Negative: Fever Negative: Chest Pain Positive: Shortness Of Breath. Negative: Cough Neurological: Other - lightheaded, dizzy All Other Systems Reviewed And Are Negative: Yes Physical Exam - Summary Physical Exam Summary: Appearance: Morbidly obese male lying on stretcher in mild respiratory distress Skin: Warm, dry, signs of yeast infection under bilateral breasts and on groin Eyes: sclera anicteric, no conjunctival pallor ENT: mucous membranes moist, pharynx appears normal Neck: Supple, nontender Respiratory: Distant breath sounds, pts body habitus precludes reliable exam. He is mildly tachypnic but able to finish his sentences. Cardiovascular: Normal S1, S2. No murmurs. Normal distal pulses in tibial and radial bilaterally. Abdomen: Morbidly obese but soft and nontender, normal active bowel sounds present Musculoskeletal: Chronic venous stasis changes, Strength/ROM Intact Neurological: A&Ox3, awake and alert, mentation is normal, speech is fluent and appropriate. Answering questions appropriately, no focal neurological deficits. Psychiatric: affect is normal, does not appear anxious or depressed Triage Information Reviewed: Yes Vital Signs On Initial Exam: Initial Vitals Temp Pulse Resp BP Pulse Ox 98.9 F 84 26 134/109 98 08/06/18 19:25 08/06/18 19:25 08/06/18 19:25 08/06/18 19:25 08/06/18 19:25 Vital Signs Reviewed: Yes Diagnostics - Vital Signs Vital Signs Temp Pulse Resp BP Pulse Ox 08/06/18 19:25 98.9 F 84 26 134/109 98 - Laboratory Result Diagrams: 08/06/18 20:15 08/07/18 05:49 Lab Statement: Any lab studies that have been ordered have been reviewed, and results considered in the medical decision making process. - Radiology CXR Radiology Interpretation Completed By: ED Physician Summary of Radiographic Findings: Limited d/t body habitus but there are no gross infiltrates. Pending official radiology report. - EKG 1930 Cardiac Rate: NL - 81bpm EKG Rhythm: Sinus Rhythm ST Segment: Normal Ectopy: None Summary of EKG Findings: EKG at 193 shows NSR at 81bpm with no STEMI. Course/Dx - Course Course Of Treatment: Pt is a 62 y/o M presenting to the ED brought in by EMS for shortness of breath. The pt states this was first onset just this afternoon , and that he just got out of rehab yesterday. He c/o lightheadedness, dizziness , and SOB. He denies fever, cough, and chest pain. He has hx of COPD and CHF that he uses oxygen daily for. On physical exam, the pt is morbidly obese, in mild respiratory distress, and there are distant breath sounds limited due to pt 's body habitus. He is mildly tachypnic but able to finish sentences, and his abd is obese. He has chronic venous stasis changes in his bilateral LE, and signs of yeast infection under his breasts and on his groin. His CXR is limited d/t body habitus but there are no gross infiltrates, pending official radiology report. Pts hematology shows Hgb of 13.4, RDW of 18, and absolute lymphs of 0.7. His ABG shows pCO2 of 66, pO2 of 289, HCO2 of 38.3, O2 sat of 100.0, and base excess of 17.1. His chemistry shows Chloride of 97, CO2 of 39, BUN/Creatinine ratio of 30.4, total Bilirubin of 1.20, Alkaline phosphate of 28 , and CRP of 64.70. The pts lactic acid is 1.3 and his Troponin I is 0.01. EKG at 1937 shows NSR at 81bpm with no STEMI. As of 2235, I spoke with Dr. Francisco who will be accepting the pt to [facility] with dx including acute and chronic respiratory failure as well as obesity hypoventilation syndrome. The pt is stable and agreeable with this plan. - Diagnoses Provider Diagnoses: Acute and chronic respiratory failure, Obesity hypoventilation syndrome Discharge - Sign-Out/Discharge Documenting (check all that apply): Patient Departure Patient Received Moderate/Deep Sedation with Procedure: No - Discharge Plan Condition: Stable Disposition: ADMITTED TO [facility] - Billing Disposition and Condition Condition: STABLE Disposition: Admitted to [facility] - Attestation Statements Document Initiated by You: Yes Documenting Scribe: Carrie Wetzel Provider For Whom You is Documenting (Include Credential): Dannie Mitchell MD. Scribe Attestation: Carrie Murphy, scribed for Dannie Mitchell MD. on 08/10/18 at 0427. Scribe Documentation Reviewed: Yes Provider Attestation: The documentation as recorded by the Carrie parham accurately reflects the service I personally performed and the decisions made by me, Dannie Mitchell MD. Status of Scribe Document: Viewed Consult Consult: 2235 - I spoke with Dr. Francisco who will be accepting the pt to [facility] with dx including acute and chronic respiratory failure as well as obesity hypoventilation syndrome.
[2018-08-06 20:23] LABS: ABS Eosinophils 0.2 10^3/ul (0-0.6); ABS Lymphocytes 0.7 10^3/ul (1.0-4.8); ABS Monocytes 0.6 10^3/ul (0-0.8); ABS Neutrophils 5.6 10^3/ul (1.5-7.7); Eosinophil % 2.1 %; Hematocrit 42 % (42-52); Hemoglobin 13.4 g/dL (14.0-18.0); Lymphocyte % 10.4 %; Mean Corpuscular HGB Conc 32 g/dL (31-36); Mean Corpuscular Hemoglobin 28 pg (27-31); Mean Corpuscular Volume 89 fL (80-94); Mean Platelet Volume 9.1 fL (7.4-10.4); Platelet Count 175 10^3/uL (150-450); Red Blood Count 4.74 10^6 /uL (4.18-5.48); Red Cell Distribution Width 18 % (10.5-15); White Blood Count 7.2 10^3/uL (3.5-10.8)
[2018-08-06 20:41] LABS: Albumin 3.6 g/dL (3.2-5.2); BUN/Creatinine Ratio 30.4 (8-20); C Reactive Protein 64.7 mg/L (<8.01); Calcium 9.6 mg/dL (8.6-10.3); EGFR African American 120.3 (>60); EGFR Non-African American 99.4 (>60); Globulin 3.7 g/dL (2-4); Potassium 3.6 mmol/L (3.5-5.0); Total Bilirubin 1.2 mg/dL (0.2-1.0); Total Protein 7.3 g/dL (6.4-8.9)
[2018-08-06 20:42] LABS: Troponin I 0.01 ng/mL (<0.04)
[2018-08-06] MEDS ORDERED: Spiriva Inhaler DEVICE* 1 EACH DEVICE INH SCH (23:45)
[2018-08-06] MEDS ORDERED: methylPREDNISolone 125 MG* 2 ML VIAL IV ONE (23:51)
[2018-08-06] MEDS ORDERED: Famotidine TAB* 20 MG PO PRN (23:52)
[2018-08-07] MEDS ORDERED: Senna TAB PO PRN (00:39)
[2018-08-07] MEDS ORDERED: Polyethylene Glycol 3350* 17 GM PACKET PO PRN (00:40)
--- NOTE | 2018-08-07 03:45 | HP ---
CC: Dr. Javier Gilliland HISTORY AND PHYSICAL: DATE OF ADMISSION: 08/06/18 PRIMARY CARE PHYSICIAN: Dr. Javier Gilliland. HEALTHCARE PROXY: J Luis Shafer, his brother. CODE STATUS: Full. CHIEF COMPLAINT: Shortness of breath and dyspnea on exertion for 1 day. HISTORY OF PRESENT ILLNESS: Mr. Shafer is a 62-year-old man with a history of obesity hypoventilation syndrome, on nightly BiPAP, COPD on home O2 at 4 L during the day; HFpEF; history of DVT/PE on Xarelto; AFib and sick sinus syndrome s/p PPM; bilateral lower extremity lymphedema with chronic wounds, now status post metatarsal amputations bilaterally, who is presenting with acute onset of SOB and BOWERS in the setting of having no nebulizer liquid at home after discharge from rehabilitation. Of note, the patient was recently admitted from 05/29/18 to 12/31 for acute hypercarbic respiratory failure due to pneumonia and diastolic heart failure exacerbation. His hospital course was complicated by C. diff colitis. He required intubation with an ICU stay during that admission. He was discharged to rehabilitation for skilled PT, from which he was just discharged to home yesterday. He reports that once he was home, where lives alone and has a home esteban aide, he did not have liquid for his home nebulizer machine. He states that since being home, he felt like he had to "gasp for air" every time he walked, which was not happening when he was at rehab, and he also reported progressively worsening shortness of breath at rest while at home for the last day. He denies fevers, chills, cough, wheezing, orthopnea, paroxysmal nocturnal dyspnea, or worsening lower extremity edema. He denies chest pain, abdominal pain, nausea, vomiting, constipation, diarrhea. He does report worsening pruritic rash over his right thigh and abdomen, which he states has not improved with nystatin cream. He states that he thinks this feels like a COPD exacerbation and he had the idea that it might be from mold exposure at this home, although he is unsure. He also agrees that it could be because he ran out of inhalers at home. In the emergency department, the patient was afebrile. He was not tachycardic, and his blood pressures were in normal limits. His labs were notable for a blood gas with pCO2 of 66, which is improved from prior admissions, and a CRP of 64, which was also lower than his prior admission. He was noted to be satting 93% on BiPAP, and when the BiPAP mask was removed, he had notably increased work of breathing, so it was replaced. He was given nebulizers and asked to be admitted to the hospitalist service. His chest x-ray was limited due to his body habitus, but was without focal consolidation, although pending official radiology report. PAST MEDICAL HISTORY: 1. COPD, on home oxygen and nightly BiPAP. 2. Obesity hypoventilation syndrome, on nightly BiPAP. 3. DVT and PE, on anticoagulation. 4. Atrial fibrillation and sick sinus syndrome, on anticoagulation and status post pacemaker. 5. Heart failure with preserved ejection fraction. 6. Bilateral chronic lower extremity lymphedema, complicated by chronic wounds , status post metatarsal amputations bilaterally. 7. Morbid obesity with BMI 65. MEDICATION LIST: 1. Rivaroxaban 20 mg daily. 2. Torsemide 40 mg daily. 3. Gabapentin 100 mg twice a day. 4. Famotidine 20 mg twice a day. 5. Diphenhydramine 25 mg every 6 hours as needed for itching. 6. Aspirin 81 mg daily. 7. Spiriva 1 inhalation daily. 8. DuoNeb every 4 hours as needed for wheezing and shortness of breath. 9. Nitroglycerin 0.4 mg sublingual. 10. Oxycodone 5 mg every 6 hours as needed for pain. 11. [place] twice a day as needed for pain. ALLERGIES: BEE STING and WALNUT cause anaphylactic shock and CLINDAMYCIN with skin itching. FAMILY HISTORY: Mother with diabetes and dementia. Father with lung cancer. Both in their 80s. SOCIAL HISTORY: The patient lives at home alone with a home health aide. He denies a history or current use of tobacco, alcohol, or other drugs. 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 REVIEW OF SYSTEMS: A complete 10-point review of systems was performed and pertinent positives and negatives are documented in the HPI. PHYSICAL EXAMINATION GENERAL: He is an obese man, in no acute distress without increased work of breathing, on BiPAP. He is friendly, alert, and interactive and answers all questions appropriately. VITAL SIGNS: Afebrile, heart rate 70s, blood pressure 110/55, respiratory rate 20, oxygen saturation 96% on BiPAP 60%. HEENT: Atraumatic. Pupils equal, round and reactive to light. EOMI. NECK: Supple, full range of movement intact, no pain. Unable to appreciate JVP given body habitus. RESPIRATORY: Diffusely diminished breath sounds. No wheezes or crackles. HEART: Regular rate and rhythm. Soft systolic murmur diffusely. ABDOMEN: Soft, nontender, obese. LOWER EXTREMITIES: Status post bilateral metatarsal amputations. DP pulses 1+ bilaterally. Nonpitting edema. Chronic venous stasis changes with diffuse erythema, not hot or tender. SKIN: With erythematous patch over anterior right thigh and right lower abdomen with demarcated border with some skin flakes over erythematous skin. No papules, warmth, induration, or drainage. DIAGNOSTIC STUDIES/LAB DATA: Labs reviewed and significant for mild anemia at baseline 13.4, normocytic. ABG with pH 7.44, pCO2 66. Carbon dioxide 39 with normal creatinine. CRP 64. Chest x-ray with interstitial edema, not significantly changed from prior, although difficult to tell given poor image quality limited by body habitus and portable AP study. No clear consolidation. EKG: Normal sinus rhythm 81, 5-mm ST depressions in V2 through 5, unchanged from prior. ASSESSMENT AND PLAN: 62-year-old man with obesity hypoventilation syndrome on BiPAP; COPD on home O2 ; DVT/PE on anticoagulation; atrial fibrillation and SSS status post pacemaker; HFpEF; chronic lower extremity lymphedema with chronic wounds s/p metatarsal amputations bilaterally, is presenting with acute onset of shortness of breath and dyspnea on exertion in the setting of a recent discharge from rehab where he returned home without his daily nebulizer treatments. Pulmonology: 1. Hypercarbic hypoxemic respiratory failure, likely secondary to chronic obstructive pulmonary disease exacerbation in the setting of being off his home nebulizers. At this time, currently low concern for infection given no leukocytosis, lack of chills or increased cough. We will admit the patient to the ICU given new BiPAP requirements. He is status post 1 dose of methylprednisolone and will be continued on a prednisone burst daily. Continue home Spiriva and also DuoNebs/albuterol nebs p.r.n. The patient may benefit from additional daily inhalers such as combination LABA/ICS. Currently low suspicion for recurrence of pulmonary embolism as the patient is not tachycardic and he has been on blood thinners and reporting good adherence. 2. Obesity hypoventilation syndrome, we will continue on BiPAP, which he is also on for his chronic obstructive pulmonary disease exacerbation. Cardiology: 1. Heart failure with preserved ejection fraction with recent echo with EF 55%. The patient does not seem to have new volume overload and he is without worsening lower extremity edema, orthopnea, or paroxysmal nocturnal dyspnea. For now, we will continue the patient's home torsemide 40 mg daily and continue to monitor for signs of volume overload.. 3. Atrial fibrillation, sick sinus syndrome, status post pacemaker. We will continue Xarelto daily. Not currently on rate control agent. GI: Gastroesophageal reflux disease: We will continue the patient's home H2 melia. Renal: No active issues. Neuro: Chronic pain. We will hold the patient's home opioids in the setting of respiratory failure. Cont gabapentin low dose. Skin: clotrimazole topical bid for likely tinea corporis. DVT prophylaxis: Continue home Xarelto. The patient is full code. Disposition: The patient will be admitted to the ICU given increased BiPAP requirements. TIME SPENT: Approximately 60 minutes was spent on the admission of this patient , more than half of which was spent at bedside for interview and exam. [id number]/[facility] #: [id number] KIET
[2018-08-07 06:18] LABS: BUN/Creatinine Ratio 21.8 (8-20); Calcium 9.5 mg/dL (8.6-10.3); EGFR African American 107.6 (>60); EGFR Non-African American 88.9 (>60); Magnesium 2.2 mg/dL (1.9-2.7); Potassium 4.4 mmol/L (3.5-5.0)
[2018-08-07] MEDS: Tiotropium CAP.INH* CAP.INH/18 MCG (USE ORDER SET !) INH SCH (07:50)
[2018-08-07] MEDS: Aspirin EC TAB* 81 MG TAB.EC PO SCH (07:53)
[2018-08-07] MEDS: predniSONE TAB* 50 MG PO SCH (07:53)
[2018-08-07] MEDS: Gabapentin CAP(*) 100 MG PO SCH ×2 (07:53→20:18)
[2018-08-07] MEDS: Clotrimazole 1% CREAM* 45 GM TOPICAL SCH ×2 (07:54→20:19)
[2018-08-07] MEDS ORDERED: Docusate CAP* 100 MG PO SCH (09:00)
[2018-08-07] MEDS ORDERED: Senna TAB PO SCH (09:00)
[2018-08-07] MEDS: Torsemide TAB 10 MG PO SCH (10:00)
--- NOTE | 2018-08-07 14:53 | PN ---
Date of Service: 08/07/18 Critical Care Services: 62 y/o morbidly obese male well known to this hospital with OHS and chronic hypercarbic respiratory failure, recently discharged and now returns with complaints SOB when off BiPAP. No real change in blood gases and no evidence for infection. Vital Signs: Temp Pulse Resp BP SpO2 FiO2 96.9 F 85 16 151/82 96 60 Physical Exam: Gen:Resting on BiPAP. HEENT:BiPAP face mask in place Lungs: BS very distant. No wheezes or crackles appreciated. Abdomen: Obese. Extremities: Nonpitting edema and other skin changes consistent with chronic venous stasis and recurrent cellulitis. Fluid Balance (Past 24 Hours): 08/07/18 08/08/18 06:59 06:59 Intake Total 940 Output Total 600 2950 Balance - Weight 490 lb Intake: Oral 940 Output: Urine 600 2950 Other: # Bowel Movements 1 Estimated Stool Amount Small Labs: Laboratory Results - last 24 hr 08/06/18 08/06/18 08/06/18 20:15 20:15 20:15 WBC 7.2 RBC 4.74 Hgb 13.4 L Hct 42 MCV 89 MCH 28 MCHC 32 RDW 18 H Plt Count 175 MPV 9.1 Neut % (Auto) 78.6 Lymph % (Auto) 10.4 [place] % (Auto) 8.3 Eos % (Auto) 2.1 Baso % (Auto) 0.6 Absolute Neuts (auto) 5.6 Absolute Lymphs (auto) 0.7 L Absolute Monos (auto) 0.6 Absolute Eos (auto) 0.2 Absolute Basos (auto) 0.0 Absolute Nucleated RBC 0.0 Nucleated RBC % 0.0 Patient Temperature ABG pH ABG pH (Temp Correct) ABG pCO2 ABG pCO2 (Temp Corrct ABG pO2 ABG pO2 (Temp Correct ABG HCO3 ABG O2 Saturation ABG Base Excess Respiration Rate Ventilator Type Vent Mode FiO2 Inspiratory Time PEEP Pressure Support Pressure Control EPAP IPAP BiPAP Sodium 140 Potassium 3.6 Chloride 97 L Carbon Dioxide 39 H Anion Gap 4 BUN 24 Creatinine 0.79 Est GFR ( Amer) 120.3 Est GFR (Non-Af Amer) 99.4 BUN/Creatinine Ratio 30.4 H Glucose 127 H Lactic Acid 1.3 Calcium 9.6 Magnesium 2.0 Total Bilirubin 1.20 H AST 16 ALT 11 Alkaline Phosphatase 28 L Troponin I 0.01 C-Reactive Protein 64.70 H B-Natriuretic Peptide Total Protein 7.3 Albumin 3.6 Globulin 3.7 Albumin/Globulin Ratio 1.0 08/06/18 08/06/18 08/07/18 20:15 20:18 04:08 WBC RBC Hgb Hct MCV MCH MCHC RDW Plt Count MPV Neut % (Auto) Lymph % (Auto) [place] % (Auto) Eos % (Auto) Baso % (Auto) Absolute Neuts (auto) Absolute Lymphs (auto) Absolute Monos (auto) Absolute Eos (auto) Absolute Basos (auto) Absolute Nucleated RBC Nucleated RBC % Patient Temperature Not Reportable ABG pH 7.44 7.36 ABG pH (Temp Correct) Not Reportable ABG pCO2 66 H 80 H* ABG pCO2 (Temp Corrct Not Reportable ABG pO2 289 H 119 H ABG pO2 (Temp Correct Not Reportable ABG HCO3 38.3 H 37.1 H ABG O2 Saturation 100.0 H 99.9 H ABG Base Excess 17.1 H 15.6 H Respiration Rate Not Reportable Ventilator Type Not Reportable Vent Mode Not Reportable FiO2 80 Inspiratory Time Not Reportable PEEP Not Reportable Pressure Support Not Reportable Pressure Control Not Reportable EPAP 10 IPAP 20 BiPAP Not Reportable Sodium Potassium Chloride Carbon Dioxide Anion Gap BUN Creatinine Est GFR ( Amer) Est GFR (Non-Af Amer) BUN/Creatinine Ratio Glucose Lactic Acid Calcium Magnesium Total Bilirubin AST ALT Alkaline Phosphatase Troponin I C-Reactive Protein B-Natriuretic Peptide 53 Total Protein Albumin Globulin Albumin/Globulin Ratio 08/07/18 05:49 WBC RBC Hgb Hct MCV MCH MCHC RDW Plt Count MPV Neut % (Auto) Lymph % (Auto) [place] % (Auto) Eos % (Auto) Baso % (Auto) Absolute Neuts (auto) Absolute Lymphs (auto) Absolute Monos (auto) Absolute Eos (auto) Absolute Basos (auto) Absolute Nucleated RBC Nucleated RBC % Patient Temperature ABG pH ABG pH (Temp Correct) ABG pCO2 ABG pCO2 (Temp Corrct ABG pO2 ABG pO2 (Temp Correct ABG HCO3 ABG O2 Saturation ABG Base Excess Respiration Rate Ventilator Type Vent Mode FiO2 Inspiratory Time PEEP Pressure Support Pressure Control EPAP IPAP BiPAP Sodium 139 Potassium 4.4 Chloride 96 L Carbon Dioxide 39 H Anion Gap 4 BUN 19 Creatinine 0.87 Est GFR ( Amer) 107.6 Est GFR (Non-Af Amer) 88.9 BUN/Creatinine Ratio 21.8 H Glucose 239 H Lactic Acid Calcium 9.5 Magnesium 2.2 Total Bilirubin AST ALT Alkaline Phosphatase Troponin I C-Reactive Protein B-Natriuretic Peptide Total Protein Albumin Globulin Albumin/Globulin Ratio Studies: None after admission Nutrition: Regular unrestricted diet Impression: Morbid obesity with OHS and chronic hypercapnic respiratory failure. This patient's clinical trajectory suggests a "failure to thrive" Plan: Continue present management. No need for antibiotics or steroids at this time. Prognosis is poor unless patient gets serious about losing weight.
[2018-08-07] MEDS ORDERED: Furosemide IV* 10 MG/ML VIAL (40 MG) IV ONE (15:14)
--- NOTE | 2018-08-07 15:15 | PN ---
Progress Note - Progress Note Date of Service: 08/07/18 Note: ADD to progress note: CXR shows possible congestion, so I will attempt diuresis with IV lasix.
[2018-08-07] MEDS ORDERED: NS 0.9% 1000 ML** 1,000 ML IV SCH (17:45)
[2018-08-07] MEDS: Rivaroxaban TAB(*) 20 MG TAB PO SCH (18:29)
[2018-08-07] MEDS: Potassium Chloride* LIQUID 20 MEQ/15 ML UDC PO SCH (20:18)
[2018-08-07] MEDS: Acetaminophen TAB* 325 MG PO PRN (20:37)
[2018-08-08] MEDS: Acetaminophen TAB* 325 MG PO PRN ×3 (05:02→19:56)
[2018-08-08] MEDS: Tiotropium CAP.INH* CAP.INH/18 MCG (USE ORDER SET !) INH SCH (07:20)
[2018-08-08] MEDS: Torsemide TAB 10 MG PO SCH (09:31)
[2018-08-08] MEDS: Potassium Chloride* LIQUID 20 MEQ/15 ML UDC PO SCH ×2 (09:31→19:55)
[2018-08-08] MEDS: Clotrimazole 1% CREAM* 45 GM TOPICAL SCH ×2 (09:32→21:00)
[2018-08-08] MEDS: Gabapentin CAP(*) 100 MG PO SCH ×2 (09:32→19:57)
[2018-08-08] MEDS: Aspirin EC TAB* 81 MG TAB.EC PO SCH (09:32)
[2018-08-08] MEDS: predniSONE TAB* 50 MG PO SCH (09:32)
[2018-08-08] MEDS ORDERED: oxyCODONE ORAL.SOLN* 5 MG/5 ML UDC PO SCH (10:00)
[2018-08-08] MEDS ORDERED: Dexmedetomidine* 1,000 MCG in NS 0.9% 250 ML* 240 ML IVPB SCH (10:00)
--- NOTE | 2018-08-08 11:07 | PN ---
Date of Service: 08/08/18 - TRANSFER SUMMARY Critical Care Services: 62 y/o morbidly obese male well known to this hospital with OHS and chronic hypercarbic respiratory failure on home trilogy, recently treated Cdiff associated diarrhea and recent hospitalization now returns with complaints SOB when off BiPAP. No real change in blood gases and no evidence for infection. Patient seen and evaluated at the bedside. Patient eating breakfast. He denies any chest pain, SOB, difficulty breathing. Admits to formed stools. No overnight events, no current complains Vital Signs: Temp Pulse Resp BP SpO2 FiO2 96.6 F 70 15 136/64 92 50 08/08/18 07:47 08/08/18 10:00 08/08/18 10:00 08/08/18 10:00 08/08/18 10:00 08/08 08:00 Physical Exam: Gen: morbidly obese, pleasant and cooperative, NAD HEENT:short neck, NCAT, PERRL/EOMI, no thyromegaly Lungs:AEBL, no w/r/c Cardiac: +S1, S2, RRR Abdomen:obese, soft NT/ND, normoactive Bowel sounds Extremities:chronic changes- nonpitting edema, dry skin, chronic erythema, chronic wounds in dressing, healed tarsal amputations b/l Neuro:AAO x 3, nonfocal Fluid Balance (Past 24 Hours): I= O= Net Intake & Output 08/06/18 08/07/18 08/08/18 08/09/18 06:59 06:59 06:59 06:59 Intake Total 2828 640 Output Total 600 4325 0 Balance -600 -1497 640 Weight 490 lb 4.929 oz 493 lb 13.367 oz Intake: IV Fluids 538 NS (0.9%) 538 Oral 2290 640 Output: Urine 600 4325 0 Other: Date of Last Bowel 08/07/18 Movement # Bowel Movements 1 Estimated Stool Amount Large ADLs: Meal Record Start: 08/07/18 00: 07 Freq: ,,18 Status: Active Protocol: Created 08/07/18 00:07 System (Rec: 08/07/18 00:07 System ICU-C12) Document 08/07/18 09:00 [id number] (Rec: 08/07/18 10:47 [id number] ICU-C12) Document 08/07/18 13:00 [id number] (Rec: 08/07/18 16:00 [id number] ICU-C12) Document 08/07/18 18:00 [id number] (Rec: 08/07/18 20:13 [id number] ICU-M27) Document 08/08/18 09:00 [id number] (Rec: 08/08/18 09:38 [id number] ICU-C12) Intake and Output Start: 08/06/18 19: 31 Freq: Status: Active Protocol: Created 08/06/18 19:31 System (Rec: 08/06/18 19:31 System [id number]) Intake and Output Start: 08/07/18 00: 07 Freq: Q1HR Status: Active Protocol: Created 08/07/18 00:07 System (Rec: 08/07/18 00:07 System ICU-C12) Document 08/07/18 01:18 [id number] (Rec: 08/07/18 01:18 [id number] ICU-C12) Document 08/07/18 07:00 [id number] (Rec: 08/07/18 07:53 [id number] ICU-M27) Document 08/07/18 09:00 [id number] (Rec: 08/07/18 10:06 [id number] ICU-C12) Document 08/07/18 10:00 [id number] (Rec: 08/07/18 10:47 [id number] ICU-C12) Document 08/07/18 11:10 [id number] (Rec: 08/07/18 11:11 [id number] ICU-C15) Document 08/07/18 12:00 [id number] (Rec: 08/07/18 13:11 [id number] ICU-C12) Document 08/07/18 13:00 [id number] (Rec: 08/07/18 13:11 [id number] ICU-C12) Document 08/07/18 18:00 [id number] (Rec: 08/07/18 18:43 [id number] ICU-C12) Document 08/07/18 19:00 [id number] (Rec: 08/07/18 20:17 [id number] ICU-M27) Document 08/07/18 20:00 [id number] (Rec: 08/07/18 20:18 [id number] ICU-M27) Document 08/07/18 21:00 [id number] (Rec: 08/07/18 21:48 [id number] ICU-C14) Document 08/07/18 23:00 [id number] (Rec: 08/07/18 23:59 [id number] ICU-C14) Document 08/08/18 05:00 [id number] (Rec: 08/08/18 05:18 [id number] ICU-C14) Document 08/08/18 05:19 [id number] (Rec: 08/08/18 05:19 [id number] ICU-C14) Document 08/08/18 07:00 [id number] (Rec: 08/08/18 07:41 [id number] ICU-C12) Document 08/08/18 08:00 [id number] (Rec: 08/08/18 08:56 [id number] ICU-C12) Document 08/08/18 10:00 [id number] (Rec: 08/08/18 10:04 [id number] ICU-C12) Nutrition: Cardiac diet with 2 gm Na restriction Impression: 62 yo M with hx/o morbid obesity, VTE on xarelto, OHS/JAIDEN on nocturnal trilogy, LE tarsal amputation, chronic cellulitis and wounds of LE, diastolic dysfunction heart failure admitted for acute respiratory failure in the setting of fluid overload Plan: # Acute respiratory failure # Pulmonary edema # Diastolic dysfunction heart failure # Chronic hypercarbic respiratory failure, hx/o JAIDEN/OHS # 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 Remains off BIPAP since this AM - Recommend Trilogy/BIPAP for nocturnal and prn use - continue with torsemide - start low dose metoprolol. Caution due to borderline low HR - Start tapering the prednisone by 10 mg every 5 days and maintain at 10 mg till okay by the PCP to discontinue in light of possible chronic adrenal insufficiency - wound care as per outpatient schedule - resume xarelto Dispo: stable for transfer to Critical Care Time: 40 minutes
[2018-08-08] MEDS: Rivaroxaban TAB(*) 20 MG TAB PO SCH (17:36)
[2018-08-08] MEDS: Metoprolol Tartrate TAB* 25 MG PO SCH (19:57)
[2018-08-08] MEDS: Albuterol/Ipratropium NEB.SOL* Albuterol 2.5 MG/Ipratropium 0.5 MG 3 ML INH PRN (20:04)
[2018-08-09] MEDS: Torsemide TAB 10 MG PO SCH (09:18)
[2018-08-09] MEDS: predniSONE TAB* 20 MG PO SCH (09:18)
[2018-08-09] MEDS: Potassium Chloride* LIQUID 20 MEQ/15 ML UDC PO SCH ×2 (09:18→22:51)
[2018-08-09] MEDS: Gabapentin CAP(*) 100 MG PO SCH ×2 (09:19→22:53)
[2018-08-09] MEDS: Aspirin EC TAB* 81 MG TAB.EC PO SCH (09:19)
[2018-08-09] MEDS: Clotrimazole 1% CREAM* 45 GM TOPICAL SCH ×2 (09:21→23:42)
[2018-08-09] MEDS: Metoprolol Tartrate TAB* 25 MG PO SCH ×2 (09:23→22:54)
[2018-08-09] MEDS ORDERED: Dextrose 50% Syringe 50 ML* 25 GM/50 ML SYRINGE IV PUSH PRN (14:11)
[2018-08-09] MEDS: Albuterol/Ipratropium NEB.SOL* Albuterol 2.5 MG/Ipratropium 0.5 MG 3 ML INH PRN ×2 (14:44→23:10)
--- NOTE | 2018-08-09 16:30 | CONSULT ---
Subjective Date of Service: 08/09/18 Interval History: Mr. Shafer is a 62 yo male with PMH significant for DVT/PE, morbid obesity, obesity hypoventilation syndrome with BiPAP use at bedtime, SSS s/p pacemaker placement, A fib, bilateral LE lymphedema, HF, and COPD. Mr. Shafer has been admitted to the hospital multiples times for respiratory failure and PNA. He presented to the hospital with complaints of shortness of breath and dyspnea. He presented to the hospital with bilateral LE wounds. In early June he was admitted to the hospital and was felt to have edematous infective dermatitis. He feels like the legs have improved since his previous admission. Mr. Shafer has a home health aide who cares for his LE wounds. The legs are washed once a week with soap and water, then A+D ointment is applied. If there are areas with significant drainage, calcium alginate is applied. The legs are wrapped with rolled gauze and SYLVIA wraps. The dressings are changed once a week. Patient seen and examined at bedside. Family History: Unchanged from Admission Social History: Unchanged from Admission Past Medical History: Unchanged from Admission Review of Systems - Measurements Intake and Output: Intake and Output Last 24 Hours 08/07/18 08/08/18 08/09/18 08/10/18 06:59 06:59 06:59 06:59 Intake Total 2828 2966 560 Output Total 600 4325 4925 Balance -479 -8803 -9162 560 Weight 490 lb 4.929 oz 493 lb 13.367 oz 494 lb 7.949 oz Intake: IV Fluids 538 246 NS (0.9%) 538 246 Oral 2290 2720 560 Output: Urine 600 4325 3875 Chris 1050 Other: Estimated Void Large Date of Last Bowel 08/07/18 Movement # Bowel Movements 1 0 Estimated Stool Amount Large # Voids 1 - Review of Systems Constitutional Symptoms: Negative: Fever, Other - Chills Dermatology: Positive: Other - Chronic open areas to bilateral LEs Objective Active Medications: Acetaminophen (Tylenol Tab*) 650 mg PO Q4H PRN Reason: FEVER/PAIN Albuterol (Ventolin 2.5 Mg/3 Ml Neb.Brandy*) 2.5 mg INH Q2H PRN Reason: SOB/ WHEEZING Albuterol/Ipratropium (Duoneb (Albuterol 2.5 Mg/Ipratropium 0.5 Mg)) 1 neb INH [id number] AWAKE PRN Reason: sob/wheexing Aspirin (Aspirin Ec Tab*) 81 mg PO DAILY [facility] Clotrimazole (Clotrimazole 1%*) 1 applic TOPICAL BID [facility] Dextrose (D50w Syringe 50 Ml*) 12.5 gm IV PUSH .FOR FS < 60 - SS PRN Reason: FS < 60 Famotidine (Pepcid Tab*) 20 mg PO BID PRN Reason: HEARTBURN Gabapentin (Neurontin Cap(*)) 100 mg PO BID [facility] Insulin Human Lispro (Humalog*) 0 units SUBCUT ACHS [facility]; Protocol Metoprolol Tartrate (Lopressor Tab*) 12.5 mg PO Q12HR [facility] Polyethylene Glycol/Electrolytes (Miralax*) 17 gm PO DAILY PRN Reason: CONSTIPATION Potassium Chloride (Potassium Chloride Liquid) 20 meq PO BID [facility] Prednisone (Deltasone Tab*) 40 mg PO DAILY [facility] Stop: 08/13/18 09:01 Prednisone (Deltasone Tab*) 30 mg PO DAILY [facility] Stop: 08/18/18 09:01 Prednisone (Deltasone Tab*) 20 mg PO DAILY [facility] Stop: 08/23/18 09:01 Prednisone (Deltasone Tab*) 10 mg PO DAILY [facility] Rivaroxaban (Xarelto(*)) 20 mg PO QPM [facility] Senna (Senokot Tab*) 1 tab PO BEDTIME PRN Reason: CONSTIPATION Torsemide (Torsemide) 40 mg PO DAILY [facility] Vital Signs - 8 hr 08/09/18 08/09/18 08/09/18 08:39 09:19 09:23 Temperature 97.2 F Pulse Rate 50 72 Respiratory 16 18 Rate Blood Pressure 119/61 (mmHg) O2 Sat by Pulse 99 Oximetry 08/09/18 08/09/18 08/09/18 11:30 11:39 14:45 Temperature 97.2 F Pulse Rate 66 56 Respiratory 18 20 18 Rate Blood Pressure 121/50 (mmHg) O2 Sat by Pulse 94 96 Oximetry Oxygen Devices in Use Now: Nasal Cannula Appearance: NAD, laying in bed Ears/Nose/Mouth/Throat: Mucous Membranes Moist Respiratory: Symmetrical Chest Expansion and Respiratory Effort Skin: - - See skin note below Neurological: Alert and Oriented x 3 Result Diagrams: 08/10/18 06:42 08/10/18 06:42 Skin Deviation Note - Skin Deviation Findings Right medial and anterior leg - There is slight erythema to the leg. There are areas with black scabbing. There is a small superficial open area, measuring 2 cm x 2.5 cm x 0.1 cm. The wound base is red granulation tissue. There is no drainage. Dorsal right foot - There is a large scabbed area, measures 2 cm x 2 cm. There is dry and flaky skin on the foot. There is slight erythema noted to the foot and lower leg. Posterior and medial right lower leg - The skin is intact, there is dry and flaky skin with a few areas of black scabbing. Medial and anterior left lower leg - There is slight erythema. The skin is dry and flaky, but intact. There is no drainage or warmth. Left medial lower leg - There is slight erythema, the skin is intact with dry and flaky skin. There is no drainage noted. Left posterior lower leg - There are sever superficial open areas (working from distal to posterior); Measuring 8.4 cm x 1.5 cm x 0.1 cm, 1.5 cm x 0.8 cm x 0.1 cm, 4.5 cm x 1.7 cm x 0.1 cm, 2 cm x 1 cm x 0.1 cm, and 1 cm x 1 cm x 0.1 cm. The wound bases are beefy red granulation tissue. There is serous drainage from the wounds. The surrounding skin with slight erythema. There is also dry and flaky skin present. Assessment/Plan: Mr. Shafer is a 62 yo male with PMH significant for DVT/PE, morbid obesity, obesity hypoventilation syndrome with BiPAP use at bedtime, SSS s/p pacemaker placement, A fib, bilateral LE lymphedema, HF and COPD. He presented to the hospital with complaints of shortness of breath and dyspnea. He presented to the hospital with bilateral LE wounds. 1. Bilateral LEs with superficial open areas and dermatitis. Known history of venous stasis and follows with the [facility] wound clinic as needed. Overall the legs are looking better from his last hospital stay. Recommend washing the legs with soap and water when dressings are changed. Apply lotion to bilateral LEs. Apply xeroform to the open areas on the posterior left leg, ABD pads, rolled gauze, and SYLVIA wraps. Change dressings every 2 to 3 days or PRN for soiling. Consider applying calcium alginate to the open areas if there is significant drainage. 2. Morbid obesity with obesity hypoventilation syndrome. BMI 70.9. 3. Chronic bilateral LE lymphedema with history of venous stasis ulcers. 4. Diet. Low sodium diet. 5. Code Status. Full code. 6. Disposition. Disposition per primary medicine team. TIME SPENT: Time for this wound follow up was 30 minutes with 20 minutes spent assessing, measuring, and photographing the wounds. Wound Problem/Plan Is Patient a Wound Clinic Patient: [facility] Comment: As needed Attending: Nina Gilman
--- NOTE | 2018-08-09 17:48 | PN ---
Subjective Date of Service: 08/09/18 Interval History: Pt c/o "congestion in his throat", cannot cough it up Family History: Unchanged from Admission Social History: Unchanged from Admission Past Medical History: Unchanged from Admission Objective Active Medications: Acetaminophen (Tylenol Tab*) 650 mg PO Q4H PRN PRN Reason: FEVER/PAIN Last Admin: 08/08/18 19:56 Dose: 650 mg Albuterol (Ventolin 2.5 Mg/3 Ml Neb.Brandy*) 2.5 mg INH Q2H PRN PRN Reason: SOB/WHEEZING Albuterol/Ipratropium (Duoneb (Albuterol 2.5 Mg/Ipratropium 0.5 Mg)) 1 neb INH [id number] AWAKE PRN PRN Reason: sob/wheexing Last Admin: 08/09/18 14:44 Dose: 1 neb Aspirin (Aspirin Ec Tab*) 81 mg PO DAILY [facility] Last Admin: 08/09/18 09:19 Dose: 81 mg Clotrimazole (Clotrimazole 1%*) 1 applic TOPICAL BID [facility] Last Admin: 08/09/18 09:21 Dose: 1 applic Dextrose (D50w Syringe 50 Ml*) 12.5 gm IV PUSH .FOR FS < 60 - SS PRN PRN Reason: FS < 60 Famotidine (Pepcid Tab*) 20 mg PO BID PRN PRN Reason: HEARTBURN Gabapentin (Neurontin Cap(*)) 100 mg PO BID [facility] Last Admin: 08/09/18 09:19 Dose: 100 mg Guaifenesin/Dextromethorphan (Robitussin Dm*) 5 ml PO Q4H PRN PRN Reason: COUGH Insulin Human Lispro (Humalog*) 0 units SUBCUT ACHS [facility]; Protocol Metoprolol Tartrate (Lopressor Tab*) 12.5 mg PO Q12HR [facility] Last Admin: 08/09/18 09:23 Dose: 12.5 mg Polyethylene Glycol/Electrolytes (Miralax*) 17 gm PO DAILY PRN PRN Reason: CONSTIPATION Potassium Chloride (Potassium Chloride Liquid) 20 meq PO BID [facility] Last Admin: 08/09/18 09:18 Dose: 20 meq Prednisone (Deltasone Tab*) 40 mg PO DAILY [facility] Stop: 08/13/18 09:01 Last Admin: 08/09/18 09:18 Dose: 40 mg Prednisone (Deltasone Tab*) 30 mg PO DAILY [facility] Stop: 08/18/18 09:01 Prednisone (Deltasone Tab*) 20 mg PO DAILY [facility] Stop: 08/23/18 09:01 Prednisone (Deltasone Tab*) 10 mg PO DAILY [facility] Rivaroxaban (Xarelto(*)) 20 mg PO QPM [facility] Last Admin: 08/08/18 17:36 Dose: 20 mg Senna (Senokot Tab*) 1 tab PO BEDTIME PRN PRN Reason: CONSTIPATION Last Admin: 08/08/18 19:58 Dose: 1 tab Torsemide (Torsemide) 40 mg PO DAILY [facility] Last Admin: 08/09/18 09:18 Dose: 40 mg Vital Signs - 8 hr 08/09/18 08/09/18 08/09/18 11:30 11:39 14:45 Temperature 97.2 F Pulse Rate 66 56 Respiratory 18 20 18 Rate Blood Pressure 121/50 (mmHg) O2 Sat by Pulse 94 96 Oximetry 08/09/18 16:12 Temperature 97.1 F Pulse Rate 73 Respiratory 24 Rate Blood Pressure 143/78 (mmHg) O2 Sat by Pulse 93 Oximetry Oxygen Devices in Use Now: Nasal Cannula Appearance: 62 yo M in nAD, aAOx3 Eyes: No Scleral Icterus, PERRLA Ears/Nose/Mouth/Throat: NL Teeth, Lips, Gums, Mucous Membranes Moist Neck: NL Appearance and Movements; NL JVP, Trachea Midline Respiratory: Symmetrical Chest Expansion and Respiratory Effort, - - upper airway rhonchi clear with cough Cardiovascular: NL Sounds; No Murmurs; No JVD Abdominal: NL Sounds; No Tenderness; No Distention, No Hepatosplenomegaly Lymphatic: No Cervical Adenopathy Extremities: - - nonpitting pedal edema b/l -trace with dry skin and small ulcers covered with eschar-scattered on distal b/l LE's Skin: No Nodules or Sclerosis Neurological: Alert and Oriented x 3, NL Muscle Strength and Tone Result Diagrams: 08/06/18 20:15 08/07/18 05:49 Assess/Plan/Problems-Billing Assessment: Patient is a 62yo male with a PMH for COPD, JAIDEN, Obesity Hypoventilation, CHF, Chronic Lower Extremity Wounds, who is admitted with acute hypoxic and hypercarbic respiratory failure, h/o C. Diff - Patient Problems (1) Acute on chronic respiratory failure with hypercapnia Comment: resolved. 2/2 diastolic CHF exacerbation and obesity-hypoventilation syndrome. Note Prednisone taper cont, continue PRN Duonebs, and Albuterol as ordered Continue COPD treatment, BiPAP. Uses 3L O2 at home PRN. (2) Morbid obesity Comment: (3) Obstructive sleep apnea Comment: Complicated by dCHF Trilogy at home, BiPAP in the hospital with 3L O2 (4) Wound of lower extremity Comment: Continue local care. (5) Atrial fibrillation Comment: - Rate controlled - Continue Xarelto, metoprolol (6) Diastolic CHF, acute Comment: On chronic CHF. cont daily home torsemide will tx with an additional dose of IV Lasix (7) History of pulmonary embolism Comment: - Indefinite Xarelto (8) C. difficile diarrhea Comment: -Resolved -PO VancoD/Cd (06/18/18) (9) Hyperglycemia Comment: due to chronic steroids pt requests regular diet cont ISS prednisone taper (10) DVT prophylaxis Comment: - Xarelto Status and Disposition: inpatient
[2018-08-09] MEDS: Rivaroxaban TAB(*) 20 MG TAB PO SCH (18:28)
[2018-08-09] MEDS: Insulin LISPRO* 1 UNITS UNIT SUBCUT SCH ×2 (18:29→21:47)
[2018-08-09] MEDS: Acetaminophen TAB* 325 MG PO PRN (23:06)
[2018-08-09] MEDS: GuaiFENesin DM* 5 ML UDC PO PRN (23:07)
[2018-08-10 07:13] LABS: ABS Eosinophils 0.1 10^3/ul (0-0.6); ABS Lymphocytes 1.3 10^3/ul (1.0-4.8); ABS Monocytes 0.7 10^3/ul (0-0.8); ABS Neutrophils 4.4 10^3/ul (1.5-7.7); Eosinophil % 1.4 %; Hematocrit 42 % (42-52); Hemoglobin 13.6 g/dL (14.0-18.0); Lymphocyte % 19.4 %; Mean Corpuscular HGB Conc 32 g/dL (31-36); Mean Corpuscular Hemoglobin 29 pg (27-31); Mean Corpuscular Volume 88 fL (80-94); Nucleated Red Blood Cells % 0.1; Platelet Count 171 10^3/uL (150-450); Red Blood Count 4.78 10^6 /uL (4.18-5.48); Red Cell Distribution Width 17 % (10.5-15); White Blood Count 6.6 10^3/uL (3.5-10.8)
[2018-08-10 07:19] LABS: Calcium 9.4 mg/dL (8.6-10.3); EGFR African American 125.8 (>60); EGFR Non-African American 103.9 (>60); Potassium 4.2 mmol/L (3.5-5.0)
[2018-08-10] MEDS: Insulin LISPRO* 1 UNITS UNIT SUBCUT SCH ×4 (09:19→20:56)
[2018-08-10] MEDS: Torsemide TAB 10 MG PO SCH (09:41)
[2018-08-10] MEDS: Aspirin EC TAB* 81 MG TAB.EC PO SCH (09:42)
[2018-08-10] MEDS: predniSONE TAB* 20 MG PO SCH (09:42)
[2018-08-10] MEDS: Metoprolol Tartrate TAB* 25 MG PO SCH ×2 (09:42→20:28)
[2018-08-10] MEDS: Gabapentin CAP(*) 100 MG PO SCH ×2 (09:43→20:31)
[2018-08-10] MEDS: acetaZOLAMIDE TAB* 250 MG PO SCH ×2 (09:45→20:28)
[2018-08-10] MEDS: Clotrimazole 1% CREAM* 45 GM TOPICAL SCH ×2 (09:46→20:47)
[2018-08-10] MEDS: GuaiFENesin DM* 5 ML UDC PO PRN (09:50)
[2018-08-10] MEDS: Albuterol/Ipratropium NEB.SOL* Albuterol 2.5 MG/Ipratropium 0.5 MG 3 ML INH PRN ×2 (10:13→21:03)
[2018-08-10] MEDS: Potassium Chloride* LIQUID 20 MEQ/15 ML UDC PO SCH ×2 (10:17→20:27)
[2018-08-10] MEDS ORDERED: Magnesium CITRATE* 300 ML BTL PO ONE (11:09)
--- NOTE | 2018-08-10 13:52 | PN ---
Subjective Date of Service: 08/10/18 Interval History: Resp congestion is improving. Pt c/o constipation Family History: Unchanged from Admission Social History: Unchanged from Admission Past Medical History: Unchanged from Admission Objective Active Medications: Acetaminophen (Tylenol Tab*) 650 mg PO Q4H PRN PRN Reason: FEVER/PAIN Last Admin: 08/09/18 23:06 Dose: 650 mg Acetazolamide (Diamox Tab*) 250 mg PO BID [facility] Last Admin: 08/10/18 09:45 Dose: 250 mg Albuterol (Ventolin 2.5 Mg/3 Ml Neb.Brandy*) 2.5 mg INH Q2H PRN PRN Reason: SOB/WHEEZING Albuterol/Ipratropium (Duoneb (Albuterol 2.5 Mg/Ipratropium 0.5 Mg)) 1 neb INH [id number] AWAKE PRN PRN Reason: sob/wheexing Last Admin: 08/10/18 10:13 Dose: 1 neb Aspirin (Aspirin Ec Tab*) 81 mg PO DAILY [facility] Last Admin: 08/10/18 09:42 Dose: 81 mg Clotrimazole (Clotrimazole 1%*) 1 applic TOPICAL BID [facility] Last Admin: 08/10/18 09:46 Dose: 1 applic Dextrose (D50w Syringe 50 Ml*) 12.5 gm IV PUSH .FOR FS < 60 - SS PRN PRN Reason: FS < 60 Famotidine (Pepcid Tab*) 20 mg PO BID PRN PRN Reason: HEARTBURN Gabapentin (Neurontin Cap(*)) 100 mg PO BID [facility] Last Admin: 08/10/18 09:43 Dose: 100 mg Guaifenesin/Dextromethorphan (Robitussin Dm*) 5 ml PO Q4H PRN PRN Reason: COUGH Last Admin: 08/10/18 09:50 Dose: 5 ml Insulin Human Lispro (Humalog*) 0 units SUBCUT ACHS [facility]; Protocol Last Admin: 08/10/18 13:04 Dose: 6 units Metoprolol Tartrate (Lopressor Tab*) 12.5 mg PO Q12HR [facility] Last Admin: 08/10/18 09:42 Dose: 12.5 mg Polyethylene Glycol/Electrolytes (Miralax*) 17 gm PO DAILY PRN PRN Reason: CONSTIPATION Last Admin: 08/09/18 18:29 Dose: 17 gm Potassium Chloride (Potassium Chloride Liquid) 20 meq PO BID [facility] Last Admin: 08/10/18 10:17 Dose: 20 meq Prednisone (Deltasone Tab*) 40 mg PO DAILY [facility] Stop: 08/13/18 09:01 Last Admin: 08/10/18 09:42 Dose: 40 mg Prednisone (Deltasone Tab*) 30 mg PO DAILY [facility] Stop: 08/18/18 09:01 Prednisone (Deltasone Tab*) 20 mg PO DAILY [facility] Stop: 08/23/18 09:01 Prednisone (Deltasone Tab*) 10 mg PO DAILY [facility] Rivaroxaban (Xarelto(*)) 20 mg PO QPM [facility] Last Admin: 08/09/18 18:28 Dose: 20 mg Senna (Senokot Tab*) 1 tab PO BEDTIME PRN PRN Reason: CONSTIPATION Last Admin: 08/08/18 19:58 Dose: 1 tab Torsemide (Torsemide) 40 mg PO DAILY [facility] Last Admin: 08/10/18 09:41 Dose: 40 mg Vital Signs - 8 hr 08/10/18 08/10/18 08/10/18 07:44 08:00 09:43 Temperature 96.2 F Pulse Rate 49 Respiratory 16 19 19 Rate Blood Pressure 109/50 (mmHg) O2 Sat by Pulse 100 Oximetry 08/10/18 08/10/18 10:14 12:06 Temperature 98.6 F Pulse Rate 60 54 Respiratory 16 16 Rate Blood Pressure 117/57 (mmHg) O2 Sat by Pulse 93 92 Oximetry Oxygen Devices in Use Now: Nasal Cannula Appearance: 62 yo M in nAD, aAOx3 Eyes: No Scleral Icterus, PERRLA Ears/Nose/Mouth/Throat: NL Teeth, Lips, Gums, Mucous Membranes Moist Neck: NL Appearance and Movements; NL JVP, Trachea Midline Respiratory: - - scant b/l mild lung wheezes Cardiovascular: NL Sounds; No Murmurs; No JVD Abdominal: NL Sounds; No Tenderness; No Distention Lymphatic: No Cervical Adenopathy Extremities: No Clubbing, Cyanosis, - - mild b/l LE's edema Skin: No Nodules or Sclerosis, - - eschar covered small ulcerations at 1 cm scattered on b/l LE's below then knees Neurological: Alert and Oriented x 3, NL Muscle Strength and Tone Result Diagrams: 08/10/18 06:42 08/10/18 06:42 Assess/Plan/Problems-Billing Assessment: Patient is a 62yo male with a PMH for COPD, JAIDEN, Obesity Hypoventilation, CHF, Chronic Lower Extremity Wounds, who is admitted with acute hypoxic and hypercarbic respiratory failure, h/o C. Diff - Patient Problems (1) Acute on chronic respiratory failure with hypercapnia Comment: resolved. 2/2 diastolic CHF exacerbation and obesity-hypoventilation syndrome. Note Prednisone taper cont, continue PRN Duonebs, and Albuterol as ordered Continue COPD treatment, BiPAP. Uses 3L O2 at home PRN. start acetazolamide for CO2 back at 45 (2) Morbid obesity Comment: (3) Obstructive sleep apnea Comment: Complicated by dCF Trilogy at home, BiPAP in the hospital with 4L O2 currently (4) Wound of lower extremity Comment: Continue local care. (5) Atrial fibrillation Comment: - Rate controlled - Continue Xarelto, metoprolol (6) Diastolic CHF, acute Comment: On chronic CHF. cont daily home torsemide (7) History of pulmonary embolism Comment: - Indefinite Xarelto (8) C. difficile diarrhea Comment: -Resolved -PO VancoD/Cd (06/18/18) (9) Hyperglycemia Comment: due to chronic steroids pt requests regular diet cont ISS prednisone taper (10) DVT prophylaxis Comment: - Xarelto Status and Disposition: inpatient. PT/OT to eval need for STR
[2018-08-10] MEDS: Rivaroxaban TAB(*) 20 MG TAB PO SCH (17:44)
[2018-08-10] MEDS: Acetaminophen TAB* 325 MG PO PRN (20:28)
[2018-08-11] MEDS: Insulin LISPRO* 1 UNITS UNIT SUBCUT SCH ×4 (08:17→21:02)
[2018-08-11] MEDS: Potassium Chloride* LIQUID 20 MEQ/15 ML UDC PO SCH ×2 (10:09→21:04)
[2018-08-11] MEDS: Aspirin EC TAB* 81 MG TAB.EC PO SCH (10:10)
[2018-08-11] MEDS: Torsemide TAB 10 MG PO SCH (10:10)
[2018-08-11] MEDS: acetaZOLAMIDE TAB* 250 MG PO SCH ×2 (10:10→21:04)
[2018-08-11] MEDS: predniSONE TAB* 20 MG PO SCH (10:10)
[2018-08-11] MEDS: Gabapentin CAP(*) 100 MG PO SCH ×2 (10:11→21:01)
[2018-08-11] MEDS: Metoprolol Tartrate TAB* 25 MG PO SCH ×2 (10:12→21:03)
[2018-08-11] MEDS: Clotrimazole 1% CREAM* 45 GM TOPICAL SCH ×2 (10:14→23:32)
[2018-08-11] MEDS: GuaiFENesin DM* 5 ML UDC PO PRN ×2 (10:18→21:02)
[2018-08-11] MEDS: Albuterol/Ipratropium NEB.SOL* Albuterol 2.5 MG/Ipratropium 0.5 MG 3 ML INH PRN (13:32)
[2018-08-11 14:20] LABS: BUN/Creatinine Ratio 33.3 (8-20); Calcium 9.4 mg/dL (8.6-10.3); EGFR African American 107.6 (>60); EGFR Non-African American 88.9 (>60)
--- NOTE | 2018-08-11 16:26 | PN ---
Subjective Date of Service: 08/11/18 Interval History: Pt feels well, still c/o occasional cough and getting nebs prn Family History: Unchanged from Admission Social History: Unchanged from Admission Past Medical History: Unchanged from Admission Objective Active Medications: Acetaminophen (Tylenol Tab*) 650 mg PO Q4H PRN PRN Reason: FEVER/PAIN Last Admin: 08/10/18 20:28 Dose: 650 mg Acetazolamide (Diamox Tab*) 250 mg PO BID [facility] Last Admin: 08/11/18 10:10 Dose: 250 mg Albuterol (Ventolin 2.5 Mg/3 Ml Neb.Brandy*) 2.5 mg INH Q2H PRN PRN Reason: SOB/WHEEZING Albuterol/Ipratropium (Duoneb (Albuterol 2.5 Mg/Ipratropium 0.5 Mg)) 1 neb INH [id number] AWAKE PRN PRN Reason: sob/wheexing Last Admin: 08/11/18 13:32 Dose: 1 neb Aspirin (Aspirin Ec Tab*) 81 mg PO DAILY [facility] Last Admin: 08/11/18 10:10 Dose: 81 mg Clotrimazole (Clotrimazole 1%*) 1 applic TOPICAL BID [facility] Last Admin: 08/11/18 10:14 Dose: 1 applic Dextrose (D50w Syringe 50 Ml*) 12.5 gm IV PUSH .FOR FS < 60 - SS PRN PRN Reason: FS < 60 Famotidine (Pepcid Tab*) 20 mg PO BID PRN PRN Reason: HEARTBURN Gabapentin (Neurontin Cap(*)) 100 mg PO BID [facility] Last Admin: 08/11/18 10:11 Dose: 100 mg Guaifenesin/Dextromethorphan (Robitussin Dm*) 5 ml PO Q4H PRN PRN Reason: COUGH Last Admin: 08/11/18 10:18 Dose: 5 ml Insulin Human Lispro (Humalog*) 0 units SUBCUT ACHS [facility]; Protocol Last Admin: 08/11/18 13:01 Dose: 3 units Metoprolol Tartrate (Lopressor Tab*) 12.5 mg PO Q12HR [facility] Last Admin: 08/11/18 10:12 Dose: 12.5 mg Polyethylene Glycol/Electrolytes (Miralax*) 17 gm PO DAILY PRN PRN Reason: CONSTIPATION Last Admin: 08/09/18 18:29 Dose: 17 gm Potassium Chloride (Potassium Chloride Liquid) 20 meq PO BID [facility] Last Admin: 08/11/18 10:09 Dose: 20 meq Prednisone (Deltasone Tab*) 40 mg PO DAILY [facility] Stop: 08/13/18 09:01 Last Admin: 08/11/18 10:10 Dose: 40 mg Prednisone (Deltasone Tab*) 30 mg PO DAILY [facility] Stop: 08/18/18 09:01 Prednisone (Deltasone Tab*) 20 mg PO DAILY [facility] Stop: 08/23/18 09:01 Prednisone (Deltasone Tab*) 10 mg PO DAILY [facility] Rivaroxaban (Xarelto(*)) 20 mg PO QPM [facility] Last Admin: 08/10/18 17:44 Dose: 20 mg Senna (Senokot Tab*) 1 tab PO BEDTIME PRN PRN Reason: CONSTIPATION Last Admin: 08/08/18 19:58 Dose: 1 tab Torsemide (Torsemide) 40 mg PO DAILY [facility] Last Admin: 08/11/18 10:10 Dose: 40 mg Vital Signs - 8 hr 08/11/18 08/11/18 08/11/18 09:00 10:11 11:01 Temperature 97.1 F 97.2 F Pulse Rate 64 65 Respiratory 16 18 20 Rate Blood Pressure 137/73 142/69 (mmHg) O2 Sat by Pulse 97 94 Oximetry 08/11/18 08/11/18 08/11/18 11:40 12:59 13:32 Temperature Pulse Rate 64 Respiratory 18 16 18 Rate Blood Pressure (mmHg) O2 Sat by Pulse 95 Oximetry 08/11/18 08/11/18 14:45 16:06 Temperature 97.2 F Pulse Rate 74 69 Respiratory 18 20 Rate Blood Pressure 141/55 (mmHg) O2 Sat by Pulse 92 93 Oximetry Oxygen Devices in Use Now: Nasal Cannula Appearance: 62 yo M in nAD, AAOx3 Eyes: No Scleral Icterus, PERRLA Ears/Nose/Mouth/Throat: NL Teeth, Lips, Gums, Mucous Membranes Moist Neck: NL Appearance and Movements; NL JVP, Trachea Midline Respiratory: Symmetrical Chest Expansion and Respiratory Effort, - - scant rhonchi in RML and RUL Cardiovascular: NL Sounds; No Murmurs; No JVD, RRR Abdominal: NL Sounds; No Tenderness; No Distention Lymphatic: No Cervical Adenopathy Extremities: No Edema, No Clubbing, Cyanosis Skin: No Nodules or Sclerosis, - - some of eschar covered lesions on L LE started bleeding with dressing change-approx 2 cm in diam -3 bleeding superficial ulcers. 3 superficial ulcers stage 2 on R LE-covered with eschar Neurological: Alert and Oriented x 3, NL Muscle Strength and Tone Result Diagrams: 08/10/18 06:42 08/11/18 13:49 Assess/Plan/Problems-Billing Assessment: Patient is a 62yo male with a PMH for COPD, JAIDEN, Obesity Hypoventilation, CHF, Chronic Lower Extremity Wounds, who is admitted with acute hypoxic and hypercarbic respiratory failure, h/o C. Diff - Patient Problems (1) Acute on chronic respiratory failure with hypercapnia Comment: resolved. 2/2 diastolic CHF exacerbation and obesity-hypoventilation syndrome. Note Prednisone taper cont, continue PRN Duonebs, and Albuterol as ordered Continue COPD treatment, BiPAP. Uses 3L O2 at home PRN. started acetazolamide for high CO2 (2) Morbid obesity Comment: (3) Obstructive sleep apnea Comment: Complicated by dCF Trilogy at home, BiPAP in the hospital with 4L O2 currently (4) Wound of lower extremity Comment: Continue local care. (5) Atrial fibrillation Comment: - Rate controlled - Continue Xarelto, metoprolol (6) Diastolic CHF, acute Comment: On chronic CHF. cont daily home torsemide (7) History of pulmonary embolism Comment: - Indefinite Xarelto (8) C. difficile diarrhea Comment: -Resolved -PO VancoD/Cd (06/18/18) (9) Hyperglycemia Comment: due to chronic steroids pt requests regular diet cont ISS prednisone taper (10) DVT prophylaxis Comment: - Xarelto Status and Disposition: inpatient. PT/OT to eval need for STR Pt refuses STR, will likely go home in the next 2 days.Pt aware that his ability to do ADLS is very limited and that STR was recommended. He wishes to "risk" going home despite recommendations otherwise
[2018-08-11] MEDS: Rivaroxaban TAB(*) 20 MG TAB PO SCH (17:43)
[2018-08-11] MEDS: Acetaminophen TAB* 325 MG PO PRN (21:02)
[2018-08-11] MEDS: Albuterol 2.5 MG/3 ML NEB.SOL* (0.083%) INH PRN (22:58)
[2018-08-12] MEDS: Insulin LISPRO* 1 UNITS UNIT SUBCUT SCH ×4 (09:05→21:03)
[2018-08-12] MEDS: Metoprolol Tartrate TAB* 25 MG PO SCH ×2 (09:06→20:55)
[2018-08-12] MEDS: predniSONE TAB* 20 MG PO SCH (09:07)
[2018-08-12] MEDS: Torsemide TAB 10 MG PO SCH (09:07)
[2018-08-12] MEDS: Acetaminophen TAB* 325 MG PO PRN ×2 (09:08→20:54)
[2018-08-12] MEDS: acetaZOLAMIDE TAB* 250 MG PO SCH ×3 (09:08→20:58)
[2018-08-12] MEDS: Aspirin EC TAB* 81 MG TAB.EC PO SCH (09:09)
[2018-08-12] MEDS: Gabapentin CAP(*) 100 MG PO SCH ×2 (09:09→20:54)
[2018-08-12] MEDS: Clotrimazole 1% CREAM* 45 GM TOPICAL SCH ×2 (09:10→21:03)
[2018-08-12] MEDS: Potassium Chloride* LIQUID 20 MEQ/15 ML UDC PO SCH ×2 (09:10→20:53)
[2018-08-12] MEDS: GuaiFENesin DM* 5 ML UDC PO PRN ×2 (11:13→20:52)
--- NOTE | 2018-08-12 12:00 | PN ---
Subjective Date of Service: 08/12/18 Interval History: Pt still has occasional cough and wheezing, no new complaints Family History: Unchanged from Admission Social History: Unchanged from Admission Past Medical History: Unchanged from Admission Objective Active Medications: Acetaminophen (Tylenol Tab*) 650 mg PO Q4H PRN PRN Reason: FEVER/PAIN Last Admin: 08/12/18 09:08 Dose: 650 mg Acetazolamide (Diamox Tab*) 250 mg PO BID [facility] Last Admin: 08/12/18 09:08 Dose: 250 mg Albuterol (Ventolin 2.5 Mg/3 Ml Neb.Brandy*) 2.5 mg INH Q2H PRN PRN Reason: SOB/WHEEZING Last Admin: 08/11/18 22:58 Dose: 2.5 mg Albuterol/Ipratropium (Duoneb (Albuterol 2.5 Mg/Ipratropium 0.5 Mg)) 1 neb INH [id number] AWAKE PRN PRN Reason: sob/wheexing Last Admin: 08/11/18 13:32 Dose: 1 neb Aspirin (Aspirin Ec Tab*) 81 mg PO DAILY [facility] Last Admin: 08/12/18 09:09 Dose: 81 mg Clotrimazole (Clotrimazole 1%*) 1 applic TOPICAL BID [facility] Last Admin: 08/12/18 09:10 Dose: 1 applic Dextrose (D50w Syringe 50 Ml*) 12.5 gm IV PUSH .FOR FS < 60 - SS PRN PRN Reason: FS < 60 Famotidine (Pepcid Tab*) 20 mg PO BID PRN PRN Reason: HEARTBURN Gabapentin (Neurontin Cap(*)) 100 mg PO BID [facility] Last Admin: 08/12/18 09:09 Dose: 100 mg Guaifenesin/Dextromethorphan (Robitussin Dm*) 5 ml PO Q4H PRN PRN Reason: COUGH Last Admin: 08/12/18 11:13 Dose: 5 ml Insulin Human Lispro (Humalog*) 0 units SUBCUT ACHS [facility]; Protocol Last Admin: 08/12/18 09:05 Dose: 2 units Metoprolol Tartrate (Lopressor Tab*) 12.5 mg PO Q12HR [facility] Last Admin: 08/12/18 09:06 Dose: 12.5 mg Polyethylene Glycol/Electrolytes (Miralax*) 17 gm PO DAILY PRN PRN Reason: CONSTIPATION Last Admin: 08/09/18 18:29 Dose: 17 gm Potassium Chloride (Potassium Chloride Liquid) 20 meq PO BID [facility] Last Admin: 08/12/18 09:10 Dose: 20 meq Prednisone (Deltasone Tab*) 40 mg PO DAILY [facility] Stop: 08/13/18 09:01 Last Admin: 08/12/18 09:07 Dose: 40 mg Prednisone (Deltasone Tab*) 30 mg PO DAILY [facility] Stop: 08/18/18 09:01 Prednisone (Deltasone Tab*) 20 mg PO DAILY [facility] Stop: 08/23/18 09:01 Prednisone (Deltasone Tab*) 10 mg PO DAILY [facility] Rivaroxaban (Xarelto(*)) 20 mg PO QPM [facility] Last Admin: 08/11/18 17:43 Dose: 20 mg Senna (Senokot Tab*) 1 tab PO BEDTIME PRN PRN Reason: CONSTIPATION Last Admin: 08/08/18 19:58 Dose: 1 tab Torsemide (Torsemide) 40 mg PO DAILY [facility] Last Admin: 08/12/18 09:07 Dose: 40 mg Vital Signs - 8 hr 08/12/18 08/12/18 08:00 09:09 Respiratory 17 17 Rate Oxygen Devices in Use Now: Nasal Cannula Appearance: 62 yo m in nAD, AAOx3 Eyes: No Scleral Icterus, PERRLA Ears/Nose/Mouth/Throat: NL Teeth, Lips, Gums, Mucous Membranes Moist Neck: NL Appearance and Movements; NL JVP, No Thyroid Enlargement, Masses Respiratory: Symmetrical Chest Expansion and Respiratory Effort, - - scant b/l upper lung wheezes Cardiovascular: NL Sounds; No Murmurs; No JVD, RRR Abdominal: NL Sounds; No Tenderness; No Distention Lymphatic: No Cervical Adenopathy Extremities: No Edema, No Clubbing, Cyanosis Skin: - - leg wounds not inspected today, wrapped Neurological: Alert and Oriented x 3, NL Muscle Strength and Tone Result Diagrams: 08/10/18 06:42 08/11/18 13:49 Assess/Plan/Problems-Billing Assessment: Patient is a 62yo male with a PMH for COPD, JAIDEN, Obesity Hypoventilation, CHF, Chronic Lower Extremity Wounds, who is admitted with acute hypoxic and hypercarbic respiratory failure, h/o C. Diff - Patient Problems (1) Acute on chronic respiratory failure with hypercapnia Comment: resolved. 2/2 diastolic CHF exacerbation and obesity-hypoventilation syndrome. Note Prednisone taper cont, continue PRN Duonebs, and Albuterol as ordered Continue COPD treatment, BiPAP. Uses 3L O2 at home PRN. Cont acetazolamide started for high CO2 on 07/31/18 At home pt uses Trilogy (2) Morbid obesity Comment: (3) Obstructive sleep apnea Comment: Complicated by dCHF Trilogy at home, BiPAP in the hospital with 4L O2 currently (4) Wound of lower extremity Comment: Continue local care. (5) Atrial fibrillation Comment: - Rate controlled - Continue Xarelto, metoprolol (6) Diastolic CHF, acute Comment: On chronic CHF. cont daily home torsemide (7) History of pulmonary embolism Comment: - Indefinite Xarelto (8) C. difficile diarrhea Comment: -Resolved -PO VancoD/Cd (06/18/18) (9) Hyperglycemia Comment: due to chronic steroids pt requests regular diet cont ISS prednisone taper (10) DVT prophylaxis Comment: - Xarelto Status and Disposition: inpatient. PT/OT to eval need for STR Pt refuses.Pt aware that his ability to do ADLS is very limited and that STR was recommended. He wishes to "risk" going home despite recommendations otherwise. Spoke with pt that medically he is ready for discharge this afternoon. He will call his aide and see if she can help him this weekend. Also pt requested meds to bed for his med prescriptions at discharge
[2018-08-12] MEDS: Rivaroxaban TAB(*) 20 MG TAB PO SCH (18:28)
[2018-08-13] MEDS: Albuterol/Ipratropium NEB.SOL* Albuterol 2.5 MG/Ipratropium 0.5 MG 3 ML INH PRN (01:19)
[2018-08-13 07:19] LABS: Calcium 9.6 mg/dL (8.6-10.3); Potassium 4.2 mmol/L (3.5-5.0)
[2018-08-13] MEDS: Insulin LISPRO* 1 UNITS UNIT SUBCUT SCH ×4 (09:23→21:32)
[2018-08-13] MEDS: Potassium Chloride* LIQUID 20 MEQ/15 ML UDC PO SCH ×2 (09:24→21:32)
[2018-08-13] MEDS: GuaiFENesin DM* 5 ML UDC PO PRN ×2 (09:24→21:37)
[2018-08-13] MEDS: acetaZOLAMIDE TAB* 250 MG PO SCH ×2 (09:24→21:32)
[2018-08-13 09:25] LABS: BUN/Creatinine Ratio 33.3 (8-20); EGFR African American 89.5 (>60)
[2018-08-13] MEDS: predniSONE TAB* 20 MG PO SCH (09:25)
[2018-08-13] MEDS: Aspirin EC TAB* 81 MG TAB.EC PO SCH (09:26)
[2018-08-13] MEDS: Torsemide TAB 10 MG PO SCH (09:26)
[2018-08-13] MEDS: Metoprolol Tartrate TAB* 25 MG PO SCH ×2 (09:27→21:32)
[2018-08-13] MEDS: Gabapentin CAP(*) 100 MG PO SCH ×2 (09:28→21:31)
[2018-08-13] MEDS: Acetaminophen TAB* 325 MG PO PRN ×2 (09:36→21:37)
[2018-08-13] MEDS: Clotrimazole 1% CREAM* 45 GM TOPICAL SCH ×2 (09:37→21:40)
--- NOTE | 2018-08-13 14:03 | PN ---
Subjective Date of Service: 08/13/18 Interval History: Pt reporting occasional productive cough, improving with Robitussin DM, and improved wheezing. Family History: Unchanged from Admission Social History: Unchanged from Admission Past Medical History: Unchanged from Admission Objective Active Medications: Acetaminophen (Tylenol Tab*) 650 mg PO Q4H PRN PRN Reason: FEVER/PAIN Last Admin: 08/13/18 09:36 Dose: 650 mg Acetazolamide (Diamox Tab*) 250 mg PO BID [facility] Last Admin: 08/13/18 09:24 Dose: 250 mg Albuterol (Ventolin 2.5 Mg/3 Ml Neb.Brandy*) 2.5 mg INH Q2H PRN PRN Reason: SOB/WHEEZING Last Admin: 08/11/18 22:58 Dose: 2.5 mg Albuterol/Ipratropium (Duoneb (Albuterol 2.5 Mg/Ipratropium 0.5 Mg)) 1 neb INH [id number] AWAKE PRN PRN Reason: sob/wheexing Last Admin: 08/13/18 01:19 Dose: 1 neb Aspirin (Aspirin Ec Tab*) 81 mg PO DAILY [facility] Last Admin: 08/13/18 09:26 Dose: 81 mg Clotrimazole (Clotrimazole 1%*) 1 applic TOPICAL BID [facility] Last Admin: 08/13/18 09:37 Dose: 1 applic Dextrose (D50w Syringe 50 Ml*) 12.5 gm IV PUSH .FOR FS < 60 - SS PRN PRN Reason: FS < 60 Famotidine (Pepcid Tab*) 20 mg PO BID PRN PRN Reason: HEARTBURN Gabapentin (Neurontin Cap(*)) 100 mg PO BID [facility] Last Admin: 08/13/18 09:28 Dose: 100 mg Guaifenesin/Dextromethorphan (Robitussin Dm*) 5 ml PO Q4H PRN PRN Reason: COUGH Last Admin: 08/13/18 09:24 Dose: 5 ml Insulin Human Lispro (Humalog*) 0 units SUBCUT ACHS [facility]; Protocol Last Admin: 08/13/18 12:48 Dose: 3 units Metoprolol Tartrate (Lopressor Tab*) 12.5 mg PO Q12HR [facility] Last Admin: 08/13/18 09:27 Dose: 12.5 mg Polyethylene Glycol/Electrolytes (Miralax*) 17 gm PO DAILY PRN PRN Reason: CONSTIPATION Last Admin: 08/09/18 18:29 Dose: 17 gm Potassium Chloride (Potassium Chloride Liquid) 20 meq PO BID [facility] Last Admin: 08/13/18 09:24 Dose: 20 meq Prednisone (Deltasone Tab*) 30 mg PO DAILY [facility] Stop: 08/18/18 09:01 Prednisone (Deltasone Tab*) 20 mg PO DAILY [facility] Stop: 08/23/18 09:01 Prednisone (Deltasone Tab*) 10 mg PO DAILY [facility] Rivaroxaban (Xarelto(*)) 20 mg PO QPM [facility] Last Admin: 08/12/18 18:28 Dose: 20 mg Senna (Senokot Tab*) 1 tab PO BEDTIME PRN PRN Reason: CONSTIPATION Last Admin: 08/08/18 19:58 Dose: 1 tab Torsemide (Torsemide) 40 mg PO DAILY [facility] Last Admin: 08/13/18 09:26 Dose: 40 mg Vital Signs - 8 hr 08/13/18 08/13/18 08/13/18 06:40 08:00 09:28 Temperature 97.5 F Pulse Rate 66 Respiratory 19 16 18 Rate Blood Pressure 141/68 (mmHg) O2 Sat by Pulse 100 Oximetry Oxygen Devices in Use Now: Nasal Cannula Appearance: NAD, interactive Ears/Nose/Mouth/Throat: Mucous Membranes Moist Neck: NL Appearance and Movements; NL JVP Respiratory: Symmetrical Chest Expansion and Respiratory Effort, - - scattered expiratory wheezes diffusely Cardiovascular: RRR Abdominal: NL Sounds; No Tenderness; No Distention Extremities: - - lower extremities wrapped with clean bandages Neurological: Alert and Oriented x 3 Result Diagrams: 08/10/18 06:42 08/13/18 06:32 Assess/Plan/Problems-Billing Assessment: 62M with COPD, JAIDEN, Obesity Hypoventilation, CHF, Chronic Lower Extremity Wounds , who is admitted with acute hypoxic and hypercarbic respiratory failure, h/o C. Diff. - Patient Problems (1) Acute on chronic respiratory failure with hypercapnia Comment: resolved. 2/2 URI and running out of home neb solution, with possible component of volume overload - prednisone taper cont - maintain on 10mg eventually - continue PRN albuterol - BiPAP. Uses 3L O2 at home PRN. - Cont acetazolamide started for high CO2 on 07/31/18 At home pt uses Trilogy (2) Atrial flutter Comment: In NSR. Continue Metoprolol and resume Xarelto. (3) Obstructive sleep apnea Comment: Complicated by dCHF Trilogy at home, BiPAP in the hospital (4) Diastolic CHF, acute Current Visit: No Status: Chronic Code(s): I50.31 - ACUTE DIASTOLIC ( CONGESTIVE) HEART FAILURE SNOMED Code(s): 721457682 Comment: On chronic CHF. cont daily home torsemide. Added Diamox. Cont potassium PO. (5) Wound of lower extremity Comment: Continue local care. Status and Disposition: Pt refuses STR. Pt aware that his ability to do ADLS is very limited and that STR was recommended. He wishes to "risk" going home despite recommendations otherwise. Spoke with pt that medically he is ready for discharge - will return home when aide able to meet him on 08/14.
[2018-08-13] MEDS: Rivaroxaban TAB(*) 20 MG TAB PO SCH (18:41)
[2018-08-13] MEDS: Albuterol 2.5 MG/3 ML NEB.SOL* (0.083%) INH PRN (22:11)
[2018-08-14 06:44] LABS: BUN/Creatinine Ratio 40.2 (8-20); Calcium 9.5 mg/dL (8.6-10.3); EGFR African American 100.9 (>60); EGFR Non-African American 83.4 (>60); Magnesium 2.5 mg/dL (1.9-2.7); Potassium 3.8 mmol/L (3.5-5.0)
[2018-08-14] MEDS ORDERED: predniSONE TAB* 10 MG PO SCH (09:00)
[2018-08-14] MEDS ORDERED: Potassium Chlor TAB* 20 MEQ TAB.ER PO SCH (09:10)
[2018-08-14] MEDS: Insulin LISPRO* 1 UNITS UNIT SUBCUT SCH ×2 (09:24→13:09)
[2018-08-14] MEDS: Gabapentin CAP(*) 100 MG PO SCH (09:26)
[2018-08-14] MEDS: Aspirin EC TAB* 81 MG TAB.EC PO SCH (09:26)
[2018-08-14] MEDS: Metoprolol Tartrate TAB* 25 MG PO SCH (09:27)
[2018-08-14] MEDS: GuaiFENesin DM* 5 ML UDC PO PRN (09:28)
[2018-08-14] MEDS: acetaZOLAMIDE TAB* 250 MG PO SCH (09:28)
[2018-08-14] MEDS: Clotrimazole 1% CREAM* 45 GM TOPICAL SCH (09:28)
[2018-08-14] MEDS: Torsemide TAB 10 MG PO SCH (09:28)
[2018-08-14] MEDS: Potassium Chloride* LIQUID 20 MEQ/15 ML UDC PO SCH (09:34)
[2018-08-14 19:39] VITALS: BP 114/59
--- NOTE | 2018-08-14 21:45 | DS ---
CC: Dr. Javier Gilliland * DISCHARGE SUMMARY: DATE OF ADMISSION: 08/07/18 DATE OF DISCHARGE: 08/14/18 PRIMARY CARE PHYSICIAN: Dr. Javier Gilliland. PRIMARY DIAGNOSES: 1. Acute respiratory failure. 2. Heart failure exacerbation with pulmonary edema. 3. Chronic obstructive pulmonary disease with chronic hypercarbic respiratory failure. 4. Obesity hypoventilation syndrome. 5. Obstructive sleep apnea. 6. Deep venous thrombosis and pulmonary embolism, on anticoagulation. SECONDARY DIAGNOSES: 1. Obesity. 2. Chronic bilateral lower extremity lymphedema with wounds. DISCHARGE MEDICATIONS: 1. Prednisone 20 mg daily for 3 days, followed by 10 mg daily until discontinued by PCP. 2. Aspirin 81 mg daily. 3. Gabapentin 100 mg twice a day. 4. Famotidine 20 mg twice a day. 5. Torsemide 40 mg daily. 6. Spiriva 1 inhalation daily. 7. Laurel 5/325 one tab twice a day as needed for pain. 8. Rivaroxaban 20 mg daily. 9. Oxycodone 5 mg every 6 hours as needed for pain. 10. Clotrimazole cream 1 application twice a day for a 2-week course. HISTORY OF PRESENT ILLNESS: This is a 62-year-old man with obesity hypoventilation syndrome, on nightly BiPAP, COPD, on home O2; heart failure with preserved ejection fraction; history of DVT and PE, on Xarelto; AFib and sick sinus syndrome, status post PPM ; bilateral lower extremity lymphedema with chronic wounds, status post metatarsal amputations bilaterally, who is presenting with acute onset of shortness of breath and dyspnea on exertion in the setting of running out of nebulizer liquid at home after discharge from rehabilitation. Of note, the patient was recently admitted from 05/29/18 to 06/22/18 for hypercarbic respiratory failure due to pneumonia and diastolic heart failure exacerbation. His hospital course was complicated by C. diff colitis. He required intubation and an ICU stay during that admission. He was eventually discharged to rehabilitation for skilled PT which he was just discharged from 1 day prior to presentation now. He reports that once he went to home where he lives alone and has home health aide, he did not have appropriate liquid for his home nebulizer machine, so since then he has felt like he had to "gasp for air" every time he walked, which was not a symptom which he was experiencing when in rehab. Of note, he is also reporting progressive worsening shortness of breath at rest over the last day. He does report a recent upper respiratory infection with cough and sore throat. He denies fevers, chills, wheezing, orthopnea, paroxysmal nocturnal dyspnea, or worsening lower extremity edema. He denies chest pain, abdominal pain, nausea, vomiting, constipation, diarrhea. He has had worsening pruritic rash over his right thigh and abdomen, which has not improved with nystatin cream. HOSPITAL COURSE: In the emergency room, the patient was afebrile with normal heart rate and blood pressure. His labs were notable for a blood gas with PCO2 of 66, which was lower than prior admissions as well as a CRP of 64, which was also lower than his prior admission. He had SaO2 93% on BiPAP, but when the BiPAP mask was removed, he had notably increased work of breathing, so he was given nebulizers and asked to be admitted to the hospitalist service. His chest x- ray was notable for pulmonary edema, so he was given more aggressive IV diuretics while admitted in the ICU. He was also maintained on BiPAP as needed. He also had his prednisone dose increased for a burst and then decreased with the taper. The patient continued to improve each day with good urine output. It was noted that his bicarb continued to increase with diuresis with highest number recorded at 45, so he was briefly given Diamox while in the hospital with return of his bicarb to 35 on day of discharge, which is better than his baseline. On day of discharge, the patient reports feeling significantly improved, with normal breathing at rest. A complete 10-point review of systems was performed and pertinent positives and negatives are listed. PHYSICAL EXAM: Afebrile, heart rate 60s, blood pressure 119/79, respiratory rate 20, oxygen saturation 98% on 3 L. In general, obese man, appears his stated age. No acute distress. No increased work of breathing. HEENT with moist mucous membranes. OP clear. Neck: Unable to appreciate jugular vein due to body habitus. Lungs: Scant bilateral upper lung wheezes anteriorly. Heart: Regular rate and rhythm. No murmurs, gallops, or rubs. Abdomen: Soft, nontender. Extremities with baseline 1+ nonpitting edema, status post bilateral metatarsal amputation. Chronic wounds wrapped with dressings clean, dry, and intact. DIAGNOSTIC STUDIES: Chest x-ray 08/06/18 with severe cardiomegaly and prominent ill-defined central pulmonary vasculature and perihilar opacities with diffuse prominence of interstitial markings. Discharge weight 471. DISCHARGE PLAN: The patient is to follow up closely with his primary care physician for management of his chronic medical problems. He was re-prescribed DuoNeb liquid for his home health aide to pickle cutter on the way to meet him at home today. He is to continue his home medications as above with these new changes; prednisone taper to continue with 20 mg daily for the next 3 days, followed by 10 mg daily until seen by outpatient providers. He was also given clotrimazole cream for possible tinea corporis infection to complete a 2-week course. He was extensively educated on return precautions, which include but are not limited to confusion, worsening shortness of breath, or worsening lower extremity edema. He is to resume healthy diet, low in processed foods for weight loss with activity as tolerated. DISPOSITION: Home. CONDITION: Improved. TIME SPENT: Approximately 60 minutes was spent on discharge of this patient, more than half of which was spent on care and coordination at bedside for interview and exam. [id number]/CPS #: [id number]
[2018-08-19] MEDS ORDERED: predniSONE TAB* 20 MG PO SCH (09:00)
[2018-08-24] MEDS ORDERED: predniSONE TAB* 10 MG PO SCH (09:00)
== END 2018-08-14 16:05 | disposition home or self-care (01) | DRG 133 ==
LOC: ED 19:24 → ICU 08-07 00:01 → MED 08-08 15:18
PROVIDERS: ADMIT Internal Medicine; ATTEND Internal Medicine
DX: J96.00 Acute respiratory failure, unspecified whether with hypoxia or hypercapnia (principal); I50.33 Acute on chronic diastolic (congestive) heart failure; A04.72 Enterocolitis due to Clostridium difficile, not specified as recurrent; J44.1 Chronic obstructive pulmonary disease with (acute) exacerbation; E66.2 Morbid (severe) obesity with alveolar hypoventilation; Z68.44 Body mass index [BMI] 60.0-69.9, adult; L97.911 Non-pressure chronic ulcer of unspecified part of right lower leg limited to breakdown of skin; I48.92 Unspecified atrial flutter; L97.921 Non-pressure chronic ulcer of unspecified part of left lower leg limited to breakdown of skin; J96.22 Acute and chronic respiratory failure with hypercapnia; I49.5 Sick sinus syndrome; I48.91 Unspecified atrial fibrillation; I87.8 Other specified disorders of veins; L29.9 Pruritus, unspecified; K21.9 Gastro-esophageal reflux disease without esophagitis; I89.0 Lymphedema, not elsewhere classified; R73.9 Hyperglycemia, unspecified; T38.0X5A Adverse effect of glucocorticoids and synthetic analogues, initial encounter; Y92.239 Unspecified place in hospital as the place of occurrence of the external cause; Z95.0 Presence of cardiac pacemaker; Z89.429 Acquired absence of other toe(s), unspecified side; Z86.711 Personal history of pulmonary embolism; Z86.718 Personal history of other venous thrombosis and embolism; Z79.01 Long term (current) use of anticoagulants; Z99.89 Dependence on other enabling machines and devices; Z79.82 Long term (current) use of aspirin; Z79.891 Long term (current) use of opiate analgesic; Z79.51 Long term (current) use of inhaled steroids; Z79.899 Other long term (current) drug therapy; Z88.1 Allergy status to other antibiotic agents; Z91.030 Bee allergy status; Z91.018 Allergy to other foods; Z83.3 Family history of diabetes mellitus; Z80.1 Family history of malignant neoplasm of trachea, bronchus and lung
CPT/HCPCS: 36415; 36600; 71045; 80048; 80053; 82803; 83605; 83735; 83880; 84484; 85025; 86140; 93005; 94640; 94660; 99285; A9270-GY; G8987-GO-CM; G8988-GO-CI; J1940; J2930; J7512

== ENCOUNTER 2018-08-27 00:24 | Inpatient (IN) | payer MEDICAID ==
--- NOTE | 2018-08-27 01:07 | ED ---
HPI Chest Pain - HPI Summary HPI Summary: This patient is a 62 year old male presenting to [facility] with a chief complaint of chest pain since 3 days ago. He states the chest pain comes with exertion. He denies SOB. He rates his pain 6/10 in severity. He describes the pain as initially a stabbing pain but now a deep bruise and pressure. He says the pain radiates to his jaw. He reports skin diaphoresis and nausea. He denies vomiting. He rates his pain 6/10 in severity. The patient denies Hx of [place] but reports having a pacemaker. He states he smells a potential infection in his lower extremities. - History of Current Complaint Chief Complaint: EDChestPainROMI Time Seen by Provider: 08/27/18 00:54 Hx Obtained From: Patient Onset/Duration: Started Days Ago Initial Severity: Moderate Current Severity: Moderate Pain Intensity: 6 Pain Scale Used: 0-10 Numeric Aggravating Factor(s): Exertion - Additional Pertinent History Primary Care Physician: DIPESH - Allergy/Home Medications Allergies/Adverse Reactions: Allergies Allergy/AdvReac Type Severity Reaction Status Date / Time clindamycin Allergy Intermediate Pruritus, Verified 05/09/18 10:29 Flushing of Skin bee venom protein (honey bee) Allergy Anaphylatic Verified 05/09/18 10:29 Shock walnut Allergy Anaphylatic Verified 05/09/18 10:29 Shock PMH/Surg Hx/FS Hx/Imm Hx Endocrine/Hematology History: Reports: Hx Anticoagulant Therapy - xarelto, Hx Diabetes, Hx Anemia, Other Endocrine/Hematological Disorders - hypoglycemia Denies: Hx Systemic Lupus Erythematosus Cardiovascular History: Reports: Hx Congestive Heart Failure, Hx Coronary Artery Disease, Hx Deep Vein Thrombosis, Hx Embolism - pulmonary embolism, takes xarelto, Hx Hypercholesterolemia, Hx Hypertension, Hx Pacemaker/ICD, Hx Peripheral Vascular Disease - SSS, Hx Syncope, Other Cardiovascular Problems/ Disorders - cardiac cath Respiratory History: Reports: Hx Chronic Obstructive Pulmonary Disease (COPD) - on 2L home O2, trilogy at night, Hx Pneumonia, Hx Pulmonary Embolism, Hx Seasonal Allergies, Hx Sleep Apnea, Other Respiratory Problems/Disorders - SLEEP APNEA, ON 2 L O2 @ NIGHT, obesity hypoventilation Denies: Hx Asthma, Hx Bronchopulmonary Dysplasia, Hx Chronic Bronchitis, Hx Cystic Fibrosis, Hx Lung Cancer, Hx Pleural Effusion, Hx Pulmonary Edema GI History: Reports: Hx Gastrointestinal Bleed, Hx Hiatal Hernia, Other GI Disorders - umbilical hernia, stool softener at home, constipation Denies: Hx Cirrhosis, Hx Crohn's Disease, Hx Diverticulosis, Hx Gall Bladder Disease, Hx Gastroesophageal Reflux Disease, Hx Irritable Bowel, Hx Jaundice, Hx Obstructive Bowel, Hx Ileostomy, Hx Pyloric Stenosis, Hx Ulcer History: Reports: Hx Acute Renal Failure, Hx Chronic Renal Failure, Hx Kidney Stones, Hx Renal Disease - 3 episodes of renal failure Denies: Hx Benign Prostatic Hyperplasia, Hx Dialysis, Hx Kidney Infection, Other Problems/Disorders Musculoskeletal History: Reports: Hx Arthritis, Hx Back Problems, Other Musculoskeletal History - bilateral metatarsal amputation Denies: Hx Rheumatoid Arthritis, Hx Bursitis, Hx Congenital Bone Abnormalities Sensory History: Reports: Other Sensory Impairments - Neuropathy in feet Denies: Hx Contacts or Glasses, Hx Deafness, Hx Hearing Aid Opthamlomology History: Reports: Other Sensory Impairments - Neuropathy in feet Denies: Hx Contacts or Glasses Neurological History: Reports: Hx Headaches, Other Neuro Impairments/Disorders - frequent syncope, pt states possible stroke in past Psychiatric History: Reports: Hx Depression Denies: Hx of Violent Episodes Against Others - Cancer History Hx Chemotherapy: No - Surgical History Surgery Procedure, Year, and Place: Bilateral metatarsal amputations. Pacemaker. Surgical ureterolith extraction Hx Anesthesia Reactions: No - Immunization History Date of Tetanus Vaccine: PT STATES UNSURE Date of Influenza Vaccine: NONE Infectious Disease History: Yes Infectious Disease History: Reports: Hx of Known/Suspected MRSA Denies: Traveled Outside the [place] in Last 30 Days - Family History Known Family History: Positive: Diabetes Negative: Other - denies FHx of depression - Social History Alcohol Use: None Hx Substance Use: Yes - Narcotics Substance Use Type: Reports: None Substance Use Comment - Amount & Last Used: chronic narcotic use Hx Tobacco Use: No Smoking Status (MU): Never Smoked Tobacco Have You Smoked in the Last Year: No Review of Systems Positive: Chest Pain Negative: Shortness Of Breath All Other Systems Reviewed And Are Negative: Yes Physical Exam - Summary Physical Exam Summary: VITAL SIGNS: Reviewed. GENERAL: Patient is a morbidly obese MALE who is lying comfortable in the stretcher. Patient is not in any acute respiratory distress. HEAD AND FACE: No signs of trauma. No ecchymosis, hematomas or skull depressions. No sinus tenderness. EYES: PERRLA, EOMI x 2, No injected conjunctiva, no nystagmus. EARS: Hearing grossly intact. Ear canals and tympanic membranes are within normal limits. MOUTH: Oropharynx within normal limits. NECK: Supple, trachea is midline, no adenopathy, no JVD, no carotid bruit, no c- spine tenderness, neck with full ROM. CHEST: Symmetric, no tenderness at palpation LUNGS: Clear to auscultation bilaterally. No wheezing or crackles. Decreased breath sounds. CVS: Regular rate and rhythm, S1 and S2 present, no murmurs or gallops appreciated. Decreased heart sounds. ABDOMEN: Soft, non-tender. No signs of distention. No rebound no guarding, and no masses palpated. Bowel sounds are normal. EXTREMITIES: FROM in all major joints, no edema, no cyanosis or clubbing. Both legs wrapped bilaterally up to the knees. NEURO: Alert and oriented x 3. No acute neurological deficits. Speech is normal and follows commands. SKIN: Dry and warm Triage Information Reviewed: Yes Vital Signs On Initial Exam: Initial Vitals Temp Pulse Resp BP Pulse Ox 98.1 F 74 20 128/73 84 08/27/18 00:29 08/27/18 00:29 08/27/18 00:29 08/27/18 00:29 08/27/18 00:29 Vital Signs Reviewed: Yes Diagnostics - Vital Signs Vital Signs Temp Pulse Resp BP Pulse Ox 08/27/18 00:29 98.1 F 74 20 128/73 84 - Laboratory Result Diagrams: 08/27/18 15:02 08/27/18 15:02 Lab Statement: Any lab studies that have been ordered have been reviewed, and results considered in the medical decision making process. - Radiology CXR Radiology Interpretation Completed By: ED Physician Summary of Radiographic Findings: Cardiomegaly, bilateral venous congestion. No acute changes. Pending official radiologist report. - EKG 0038 Cardiac Rate: NL EKG Rhythm: Sinus Rhythm - [address] Segment: Non-Specific EKG Comparison: No Significant Change Chest Pain Course/Dx - Course Course Of Treatment: This patient is a 62 year old male presenting to [facility] with a chief complaint of chest pain since 3 days ago. CXR showed cardiomegaly and bilateral venous congestion. Dr. Francisco, hospitalist, accepted the patient for admission. This plan was discussed with the patient and he was agreeable with this plan. - Diagnoses Provider Diagnoses: Chest pain Discharge - Sign-Out/Discharge Documenting (check all that apply): Patient Departure - Admission - Discharge Plan Condition: Stable Disposition: ADMITTED TO [facility] - Billing Disposition and Condition Condition: STABLE Disposition: Admitted to [facility] - Attestation Statements Document Initiated by Janettee: Yes Documenting Scribe: Alec Marion Provider For Whom You is Documenting (Include Credential): Jonny Regalado MD Scribe Attestation: Alec Murphy, scribed for Jonny Regalado MD on 08/27/18 at 2307. Scribe Documentation Reviewed: Yes Provider Attestation: The documentation as recorded by the Alec parham accurately reflects the service I personally performed and the decisions made by , Jonny Regalado MD Status of Scribe Document: Viewed
[2018-08-27] MEDS ORDERED: Morphine 4 MG/ML VIAL (1 ml) 4 MG/ML VIAL IV ONE (01:31)
[2018-08-27] MEDS ORDERED: Ondansetron INJ* 2 MG/ML VIAL IV ONE (01:31)
[2018-08-27] MEDS ORDERED: Aspirin 81 mg CHEW TAB* 81 MG TAB.CHEW PO ONE (01:31)
[2018-08-27 01:39] LABS: ABS Eosinophils 0.1 10^3/ul (0-0.6); ABS Monocytes 0.6 10^3/ul (0-0.8); ABS Neutrophils 5.2 10^3/ul (1.5-7.7); Eosinophil % 1.7 %; Hematocrit 45 % (42-52); Hemoglobin 14.7 g/dL (14.0-18.0); Lymphocyte % 14.1 %; Mean Corpuscular HGB Conc 32 g/dL (31-36); Mean Corpuscular Hemoglobin 29 pg (27-31); Mean Corpuscular Volume 88 fL (80-94); Platelet Count 120 10^3/uL (150-450); Red Blood Count 5.14 10^6 /uL (4.18-5.48); Red Cell Distribution Width 17 % (10-15)
[2018-08-27 01:56] LABS: Albumin 3.5 g/dL (3.2-5.2); BUN/Creatinine Ratio 22.4 (8-20); Calcium 10.8 mg/dL (8.6-10.3); EGFR African American 110.5 (>60); EGFR Non-African American 91.3 (>60); Globulin 3.6 g/dL (2-4); Magnesium 1.9 mg/dL (1.9-2.7); Total Bilirubin 0.8 mg/dL (0.2-1.0); Total Protein 7.1 g/dL (6.4-8.9)
[2018-08-27 01:57] LABS: Troponin I 0.01 ng/mL (<0.04)
[2018-08-27 01:58] LABS: Potassium 4.1 mmol/L (3.5-5.0)
[2018-08-27 02:20] LABS: Activated Partial Thrombo Time 32.9 seconds (26.0-38.0); INR 1.03 (0.82-1.09)
[2018-08-27] MEDS ORDERED: Senna/Docusate (NF) TAB PO PRN (05:06)
[2018-08-27] MEDS ORDERED: Albuterol 2.5 MG/3 ML NEB.SOL* (0.083%) INH PRN (05:25)
[2018-08-27] MEDS: oxyCODONE/Acetamin 5/325 MG* TAB PO PRN ×2 (05:45→21:50)
[2018-08-27] MEDS: Senna TAB PO PRN ×2 (05:58→21:50)
[2018-08-27] MEDS: Docusate CAP* 100 MG PO PRN ×2 (05:58→21:50)
[2018-08-27] MEDS: predniSONE TAB* 10 MG PO SCH (07:22)
[2018-08-27] MEDS: Torsemide TAB 10 MG PO SCH (07:22)
[2018-08-27] MEDS: Aspirin EC TAB* 81 MG TAB.EC PO SCH (07:22)
[2018-08-27] MEDS: Famotidine TAB* 20 MG PO SCH ×2 (07:23→21:45)
[2018-08-27] MEDS: Rivaroxaban TAB(*) 20 MG TAB PO SCH (07:23)
[2018-08-27] MEDS: Gabapentin CAP(*) 100 MG PO SCH ×2 (07:23→21:44)
[2018-08-27] MEDS: Tiotropium CAP.INH* CAP.INH/18 MCG (USE ORDER SET !) INH SCH (07:51)
--- NOTE | 2018-08-27 08:54 | PN ---
Subjective Date of Service: 08/27/18 Interval History: Patient reports his CP has improved; he gets occasional "pangs of stabbing like a deep bruise". Denies SOB. Primary RN had concern for BRB per rectum on a routine bath with noted blood around rectum. Pt denies any regular hemorrhoidal bleeding at home. No other bloody stools, or melena. Denies any pain. Reports constipated for 2-3 days. Reports hx of GI bleed last year or two and was recommended to go to [place] for an upper/lower and never followed up. he reports his aide who does his wound care has been out of town this week and has another aide coming in who has been inconsistent. he denies any fever or chills. Is currently not following with the wound clinic Objective Active Medications: Acetaminophen (Tylenol Tab*) 975 mg PO Q8H PRN PRN Reason: FEVER/PAIN Albuterol (Ventolin 2.5 Mg/3 Ml Neb.Brandy*) 2.5 mg INH Q6H PRN PRN Reason: sob/wheeze Aspirin (Aspirin Ec Tab*) 81 mg PO DAILY [facility] Last Admin: 08/27/18 07:22 Dose: 81 mg Device (Tiotropium Inhaler Device*) 1 each INH ONCE ONE Stop: 08/27/18 09:01 Docusate Sodium (Colace Cap*) 100 mg PO BID PRN PRN Reason: CONSTIPATION Last Admin: 08/27/18 05:58 Dose: 100 mg Famotidine (Pepcid Tab*) 20 mg PO BID [facility] Last Admin: 08/27/18 07:23 Dose: 20 mg Gabapentin (Neurontin Cap(*)) 100 mg PO BID [facility] Last Admin: 08/27/18 07:23 Dose: 100 mg Nitroglycerin (Nitroglycerin Tab 0.4 Mg*) 0.4 mg SL Q5M PRN PRN Reason: chest pain Oxycodone/Acetaminophen (Percocet 5/325 Tab*) 1 tab PO Q8H PRN PRN Reason: PAIN Last Admin: 08/27/18 05:45 Dose: 1 tab Prednisone (Deltasone Tab*) 10 mg PO DAILY [facility] Last Admin: 08/27/18 07:22 Dose: 10 mg Rivaroxaban (Xarelto(*)) 20 mg PO DAILY [facility] Last Admin: 08/27/18 07:23 Dose: 20 mg Senna (Senokot Tab*) 1 tab PO BID PRN PRN Reason: CONSTIPATION Last Admin: 08/27/18 05:58 Dose: 1 tab Tiotropium [place] (Spiriva Cap.Inh*) 1 cap INH 0900 [facility] Last Admin: 08/27/18 07:51 Dose: Not Given Torsemide (Torsemide) 40 mg PO DAILY [facility] Last Admin: 08/27/18 07:22 Dose: 40 mg Trimethoprim/Sulfamethoxazole (Bactrim Ds 800/160 Tab*) 2 tab PO BID [facility] Last Admin: 08/27/18 07:22 Dose: 2 tab Vital Signs - 8 hr 08/27/18 08/27/18 08/27/18 00:59 01:00 01:01 Temperature Pulse Rate 71 75 75 Respiratory 14 17 15 Rate Blood Pressure 121/68 (mmHg) O2 Sat by Pulse 89 92 89 Oximetry 08/27/18 08/27/18 08/27/18 01:30 02:00 02:01 Temperature Pulse Rate 74 77 71 Respiratory 17 18 22 Rate Blood Pressure 125/66 122/69 (mmHg) O2 Sat by Pulse 89 88 91 Oximetry 08/27/18 08/27/18 08/27/18 02:03 02:30 02:59 Temperature Pulse Rate 82 92 Respiratory 18 19 19 Rate Blood Pressure 103/60 139/89 (mmHg) O2 Sat by Pulse 77 78 Oximetry 08/27/18 08/27/18 08/27/18 03:01 03:30 04:00 Temperature Pulse Rate 96 91 88 Respiratory 13 12 19 Rate Blood Pressure 108/64 95/50 (mmHg) O2 Sat by Pulse 80 90 92 Oximetry 08/27/18 08/27/18 08/27/18 04:01 04:51 05:12 Temperature 98.1 F 97.3 F Pulse Rate 88 88 81 Respiratory 17 20 14 Rate Blood Pressure 95/50 134/64 (mmHg) O2 Sat by Pulse 92 91 94 Oximetry 08/27/18 08/27/18 08/27/18 05:45 07:23 08:33 Temperature Pulse Rate Respiratory 14 20 20 Rate Blood Pressure (mmHg) O2 Sat by Pulse Oximetry Oxygen Devices in Use Now: OxyMask Appearance: morbidly obese A+Ox3 in NAD Eyes: No Scleral Icterus, PERRLA Respiratory: Symmetrical Chest Expansion and Respiratory Effort, Clear to Auscultation Cardiovascular: NL Sounds; No Murmurs; No JVD, RRR, No Edema Abdominal: NL Sounds; No Tenderness; No Distention, - - obese Extremities: - - s/p bilaterally transmetarsal amputations - LE wrapped with CD+ I dressing Neurological: Alert and Oriented x 3, NL Sensation Lines/Tubes/Other Access: Clean, Dry and Intact Peripheral IV Nutrition: Taking PO's Result Diagrams: 08/27/18 01:30 08/27/18 01:30 Microbiology and Other Data: Microbiology 08/27/18 04:25 Skin and Soft Tissue MRSA/MSSA (PCR - Final Leg Right Mrsa Positive S.aureus Positive Gram Stain - Preliminary 08/27/18 04:25 Skin and Soft Tissue MRSA/MSSA (PCR - Final Leg Left Mrsa Positive S.aureus Positive Gram Stain - Preliminary Assess/Plan/Problems-Billing Assessment: Mr Brad Shafer is a 62 yo male who is well known to the Hospitalist service with a PMH of chronic hypercarbic respiratory failure, COPD, Obesity hypoventilation syndrome, heart faillure, hx of [place], s/p pacer, JAIDEN, DVT/PE on anticoagulation, chronic LE bilateral wounds, morbid obesity who presented with 3 days of chest pain admitted to the hospitalist service. - Patient Problems (1) Chest pain Comment: -3 days of CP - now much better per pt - admitted to tele, troponins trended x3 all negative - EKG no acute changes - Plan for cardiac nuclear stress test Wednesday - Continue ASA 81 mg daily (2) BRBPR (bright red blood per rectum) Comment: small amount noted on bath per nursing staff today- per pt has not had any noted BRB rectum/stool. Possible hemorrhoid? Small skin tag noted on rectum. HH stable. Continue to monitor. (3) Obesity hypoventilation syndrome Comment: Continue BiPAP at night with supplemental O2 (4) Chronic respiratory failure Comment: Due to Obesity hypoventilation and COPD Chronic hypoxic and hypercarbic . on prn O2 at home Continue PRN inhalers. (5) Chronic diastolic heart failure Comment: - appears euvolemic - 05/2018 - Echo shows EF 55-60% but very limited study d/t body habitus - Continue home dose torsemide 40 mg daily - Daily weights (6) GERD (gastroesophageal reflux disease) Comment: Continue home Famotidine (7) Obstructive sleep apnea Comment: Complicated by dCHF Trilogy at home, BiPAP in the hospital (8) Atrial fibrillation Comment: - Rate controlled - Continue Xarelto, metoprolol (9) History of pulmonary embolism Comment: - Indefinite Xarelto (10) DVT prophylaxis Comment: - Xarelto (11) Full code status Comment: Status and Disposition: inpatient with chest pain r/o ACS. Plan for stress test Wednesday.
[2018-08-27] MEDS ORDERED: Spiriva Inhaler DEVICE* 1 EACH DEVICE INH ONE (09:00)
[2018-08-27] MEDS ORDERED: Sulfamethox/Trimethoprim DS 800/160* TAB PO SCH (09:00)
--- NOTE | 2018-08-27 09:31 | HP ---
CC: Javier Gilliland MD * HISTORY AND PHYSICAL: DATE OF ADMISSION: 08/27/18 PRIMARY CARE PHYSICIAN: Javier Gilliland MD. HEALTH CARE PROXY: J Luis Shafer, his brother. CODE STATUS: Full. CHIEF COMPLAINT: Left-sided progressive chest pain for 3 days. HISTORY OF PRESENT ILLNESS: Mr. Shafer is a 62-year-old man with a history of obesity hypoventilation syndrome, on nightly BiPAP; COPD, on home O2 intermittently; heart failure, preserved ejection fraction; history of DVT, PE, on Xarelto; AFib and sick sinus syndrome, status post PPM; bilateral lower extremity lymphedema with chronic wounds, and history of MRSA infection, now status post metatarsal amputations bilaterally, who is presenting with 3 days of progressive left-sided chest pain. He described the chest pain as stabbing and occasionally radiating to his left shoulder and jaw. He states that the first 2 days of this chest pain he was experiencing a mild pain that would resolve after nitro; however, over the last day the pain had lasted a few hours and did not improve with nitroglycerin, so he decided to present to the emergency room. He states that his home health aide did not show up to work yesterday, so he was engaging in more physical activity at home than usual and he states the chest pain was worsened with exertion. He is unclear if the chest pain is worse with respirations or positional changes. He reports associated symptoms of nausea and cold sweats. He thinks that over the last 3 days he has "felt his pacer kick in" a few times. Other than the above symptoms , he states that he has no changes since he was recently admitted to the hospital for acute respiratory failure due to heart failure exacerbation and COPD exacerbation. He was discharged from this hospitalization 13 days ago. The only change in his medication since then was continuation of his prednisone taper for which he has recently been taking 10 mg a day. He denies any other significant changes and a complete 10-point review of systems was performed and all pertinent positives and negatives are listed above, notably he denies shortness of breath, which he states is usually the symptom he always presents to the hospital with. Of note, he also has been experiencing worsening pain of his lower extremities and he worries that his wounds are worsening. He also reports an increase in odor from his wounds over the last week. PAST MEDICAL HISTORY: 1. COPD, on intermittent home oxygen and nightly Trilogy machine. 2. Obesity hypoventilation syndrome. 3. DVT and PE, on anticoagulation. 4. Atrial fibrillation and sick sinus syndrome, on anticoagulation and status post pacemaker. 5. Heart failure with preserved ejection fraction. 6. Chronic bilateral lower extremity lymphedema with chronic wounds. History of MRSA infection and now status post metatarsal amputations bilaterally. 7. Morbid obesity with BMI 57. HOME MEDIATIONS LIST: 1. Prednisone 10 mg daily. 2. Aspirin 81 mg daily. 3. Gabapentin 100 mg twice a day. 4. Famotidine twice a day. 5. Torsemide 40 mg daily. 6. Spiriva 1 inhalation daily. 7. [place] 5/325 one tablet twice a day as needed for pain. 8. Rivaroxaban 20 mg daily. 9. Oxycodone 5 mg every 6 hours as needed for pain. 10. Clotrimazole cream twice a day for fungal infections. ALLERGIES: BEE STINGS and WALNUT cause anaphylactic shock, CLINDAMYCIN causes skin itching. FAMILY HISTORY: Mother with diabetes and dementia. Father with lung cancer. Both in their 80s. SOCIAL HISTORY: The patient lives alone in his home. He has a home health aide visiting him daily. He denies a history of use of tobacco, alcohol, or other drugs. 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 PHYSICAL EXAMINATION GENERAL: He is an obese man, in no acute distress without increased work of breathing. He is speaking in full sentences. He is alert and interactive and answers all questions appropriately. VITAL SIGNS: Afebrile. Heart rate 90, blood pressure 108/64, respiratory rate 17, oxygen saturation 92% on 2 L of OxyMask. NECK: Full range of motion, intact without pain, unable to appreciate JVP given body habitus. HEENT: Moist mucous membranes. OP clear. Pupils equal, round, and reactive to light. Extraocular movements intact. RESPIRATORY: Clear anteriorly. HEART: Regular rate and rhythm. Soft, systolic murmur diffusely. ABDOMEN: Soft, nontender, protuberant. LOWER EXTREMITIES: With bilateral leg erythema with few areas of black scabbing right medial leg with superficial open area approximately 2 x 2 cm draining serosanguineous fluid, diffusely dry and flaky skin bilaterally hairless. Left lower extremity posterior to right calf with multiple superficial ulcerations, largest approximately 6 cm with red granulation tissue with serous drainage from the wounds. No purulence, but positive for malodor and warmth. DIAGNOSTIC STUDIES/LAB DATA: Labs reviewed and significant for platelets 120, coags within normal limits. Elevated bicarb at baseline and low chloride at baseline with creatinine 0.85. Lactic acid 1.9. Wound cultures pending. Chest x-ray with cardiomegaly at baseline and bilateral venous congestion, also at baseline. Pending official radiology read. ASSESSMENT AND PLAN: A 62-year-old man with obesity hypoventilation syndrome on BiPAP; COPD intermittently on home oxygen; DVT/PE on anticoagulation; atrial fibrillation, sick sinus syndrome s/p PPM; heart failure preserved ejection fraction, chronic lower extremity, lymphedema with chronic wounds status post metatarsal amputations bilaterally, who is presenting with symptoms concerning for unstable angina found with likely cellulitis on exam without systemic signs of toxicity. 1. Chest pain: Concerning for unstable angina given progressive nature of exertional chest pain, although this chest pain is atypical, in that it is left - sided stabbing. It is concerning that his symptoms have progressed in severity and duration. Given TIIMI score of 2 he will be admitted for cardiac stress test, which he understands cannot be performed until Wednesday. He will remain on telemetry. Repeat EKG with any concerning new symptoms. Complete 3 troponins in total. To continue home aspirin 81 mg daily. 2. Lower extremity cellulitis, non-purulent with malodor from chronic lower extremity wounds. The patient has prior episode of Methicillin-resistant Staphylococcus aureus infection. He can be treated with empiric oral antibiotics given that he has not had rapid progression of erythema nor does he exhibit systemic signs of toxicity. We will start Bactrim 2 double strength tablets twice a day. His lower extremities appear largely unchanged from excellent wound care note documented on 08/07/18 from wound care consults with the exception of slightly worsened erythema and serosanguineous draining from previously documented wounds. 3. Chronic obstructive pulmonary disease. Continue the patient on home dose of prednisone 10 mg daily with home inhaler, Spiriva 1 inhalation daily and albuterol nebulizers as needed. 4. Heart failure, preserved ejection fraction with a recent echo with ejection fraction 55%. He appears euvolemic on exam and is not reporting respiratory symptoms. We will continue the patient's home torsemide 40 mg daily. 5. Atrial fibrillation, sick sinus syndrome. Continue the patient's home Xarelto. He is not currently on a rate control agent. 6. History of deep venous thrombosis, pulmonary embolism, continue home Xarelto. 7. Chronic pain. Can continue the patient's home [place] 5/325 every 8 hours as needed and standing gabapentin 100 mg twice a day. 8. Gastroesophageal reflux disease, continue the patient's home famotidine 20 mg twice a day. 9. DVT prophylaxis. The patient is on therapeutic anticoagulation. 10. The patient is full code. TIME SPENT: Approximately 60 minutes was spent on admission of this patient, more than half of which was spent at bedside for interview and exam. [id number]/[facility] #: [id number] KIET
[2018-08-27] MEDS: Acetaminophen TAB* 325 MG PO PRN (12:01)
[2018-08-27] MEDS ORDERED: Vancomycin per Pharmacy* NOTE FOLLOW UP PRN (14:06)
[2018-08-27] MEDS ORDERED: Vancomycin(*) 2,000 MG in NS 0.9% 500 ML* 500 ML IVPB ONE (15:00)
[2018-08-27] MEDS: Cefepime 1 GM in Dextrose(*) 1 GM/50 ML BAG IV SCH (15:07)
[2018-08-27 15:11] LABS: ABS Eosinophils 0.1 10^3/ul (0-0.6); ABS Lymphocytes 0.6 10^3/ul (1.0-4.8); ABS Monocytes 0.4 10^3/ul (0-0.8); ABS Neutrophils 5.8 10^3/ul (1.5-7.7); Hematocrit 46 % (42-52); Hemoglobin 14.6 g/dL (14.0-18.0); Lymphocyte % 8.5 %; Mean Corpuscular HGB Conc 32 g/dL (31-36); Mean Corpuscular Hemoglobin 28 pg (27-31); Mean Corpuscular Volume 90 fL (80-94); Mean Platelet Volume 10.2 fL (7.4-10.4); Platelet Count 126 10^3/uL (150-450); Red Blood Count 5.14 10^6 /uL (4.18-5.48); Red Cell Distribution Width 17 % (10-15); White Blood Count 6.9 10^3/uL (3.5-10.8)
[2018-08-27 15:26] LABS: BUN/Creatinine Ratio 16.1 (8-20); Calcium 10.2 mg/dL (8.6-10.3); EGFR African American 99.6 (>60); EGFR Non-African American 82.3 (>60); Potassium 4.4 mmol/L (3.5-5.0)
[2018-08-27 19:54] LABS: Urine Appearance Clear; Urine Bacteria Absent (Absent); Urine Bilirubin Negative (Negative); Urine Blood Negative (Negative); Urine Color Yellow; Urine Glucose Negative (Negative); Urine Ketones Negative (Negative); Urine Nitrite Negative (Negative); Urine Protein Negative (Negative); Urine Red Blood Cell Trace(0-2/hpf) (Absent); Urine Specific Gravity 1.009 (1.010-1.030); Urine Squamous Epithelial Cell Present (Absent); Urine Urobilinogen Negative (Negative); Urine White Blood Cell 1+(6-10/hpf) (Absent)
[2018-08-27] MEDS: Nystatin TOP POWDER* 15 GM BTL TOPICAL SCH (21:43)
[2018-08-27] MEDS: Nitroglycerin TAB 0.4 MG* 0.4 MG TAB SL PRN ×2 (21:51→21:59)
[2018-08-27] MEDS: Vancomycin(*) 1,000 MG in NS 0.9% 250 ML* 250 ML IVPB SCH (23:35)
[2018-08-27] MEDS ORDERED: Magnesium CITRATE* 300 ML BTL PO ONE (23:43)
[2018-08-28] MEDS: Cefepime 1 GM in Dextrose(*) 1 GM/50 ML BAG IV SCH (05:05)
[2018-08-28 05:50] LABS: Hematocrit 44 % (42-52); Mean Corpuscular HGB Conc 32 g/dL (31-36); Mean Corpuscular Hemoglobin 28 pg (27-31); Mean Corpuscular Volume 89 fL (80-94); Mean Platelet Volume 10.1 fL (7.4-10.4); Platelet Count 112 10^3/uL (150-450); Red Blood Count 4.94 10^6 /uL (4.18-5.48); Red Cell Distribution Width 17 % (10-15); White Blood Count 5.7 10^3/uL (3.5-10.8)
[2018-08-28 06:06] LABS: EGFR African American 91.6 (>60); EGFR Non-African American 75.7 (>60); Potassium 4.2 mmol/L (3.5-5.0)
[2018-08-28] MEDS: Tiotropium CAP.INH* CAP.INH/18 MCG (USE ORDER SET !) INH SCH (07:43)
[2018-08-28] MEDS: Torsemide TAB 10 MG PO SCH (08:16)
[2018-08-28] MEDS: Rivaroxaban TAB(*) 20 MG TAB PO SCH (08:16)
[2018-08-28] MEDS: Gabapentin CAP(*) 100 MG PO SCH ×2 (08:16→21:51)
[2018-08-28] MEDS: Vancomycin(*) 1,000 MG in NS 0.9% 250 ML* 250 ML IVPB SCH ×3 (08:18→23:27)
[2018-08-28] MEDS: Aspirin EC TAB* 81 MG TAB.EC PO SCH (08:18)
[2018-08-28] MEDS: Famotidine TAB* 20 MG PO SCH ×2 (08:18→21:51)
[2018-08-28] MEDS: Nystatin TOP POWDER* 15 GM BTL TOPICAL SCH ×2 (08:18→21:26)
[2018-08-28] MEDS: predniSONE TAB* 10 MG PO SCH (08:18)
--- NOTE | 2018-08-28 08:57 | PN ---
Subjective Date of Service: 08/28/18 Interval History: . Patient reports his headache feels better today but is intermittent. Denies fever/chills/body aches. No GI symptoms. Denies hx of GERD. Has reproducible epigastric pain which surprised the patient. reports he continues to have intermittent chest pain that feels like "deep bruising" - is somewhat reproducible. denies urinary symptoms. No abdominal pain. Reports constipation and is asking for more magnesium citrate. Denies sob/cough/sputum production. per nursing staff - last hospitalization he was caught lying and admitted he was lying about chest pain. Discussing with patient he feels its hard Objective Active Medications: Acetaminophen (Tylenol Tab*) 975 mg PO Q8H PRN PRN Reason: FEVER/PAIN Last Admin: 08/27/18 12:01 Dose: 975 mg Albuterol (Ventolin 2.5 Mg/3 Ml Neb.Brandy*) 2.5 mg INH Q6H PRN PRN Reason: sob/wheeze Aspirin (Aspirin Ec Tab*) 81 mg PO DAILY [facility] Last Admin: 08/28/18 08:18 Dose: 81 mg Docusate Sodium (Colace Cap*) 100 mg PO BID PRN PRN Reason: CONSTIPATION Last Admin: 08/27/18 21:50 Dose: 100 mg Famotidine (Pepcid Tab*) 20 mg PO BID [facility] Last Admin: 08/28/18 08:18 Dose: 20 mg Gabapentin (Neurontin Cap(*)) 100 mg PO BID [facility] Last Admin: 08/28/18 08:16 Dose: 100 mg Vancomycin HCl 1,000 mg/ (Sodium Chloride) 250 mls @ 166.667 mls/hr IVPB Q8H [facility] Last Admin: 08/28/18 08:18 Dose: 166.667 mls/hr Cefepime HCl (Maxipime 2 Gm In Dextrose Duplex (*)) 2 gm in 50 mls @ 100 mls/ hr IV Q8H [facility] Nitroglycerin (Nitroglycerin Tab 0.4 Mg*) 0.4 mg SL Q5M PRN PRN Reason: chest pain Last Admin: 08/27/18 21:59 Dose: 0.4 mg Nystatin (Nystatin Top Powder*) 1 applic TOPICAL BID [facility] Last Admin: 08/28/18 08:18 Dose: 1 applic Oxycodone/Acetaminophen (Percocet 5/325 Tab*) 1 tab PO Q8H PRN PRN Reason: PAIN Last Admin: 08/27/18 21:50 Dose: 1 tab Pharmacy Consult (Vancomycin Per Pharmacy*) 1 note FOLLOW UP . PRN PRN Reason: PER PROTOCOL Pharmacy Profile Note (Vancomycin Trough Check) 1 note FOLLOW UP 0745 ONE Stop: 08/29/18 07:46 Prednisone (Deltasone Tab*) 10 mg PO DAILY [facility] Last Admin: 08/28/18 08:18 Dose: 10 mg Rivaroxaban (Xarelto(*)) 20 mg PO DAILY [facility] Last Admin: 08/28/18 08:16 Dose: 20 mg Senna (Senokot Tab*) 1 tab PO BID PRN PRN Reason: CONSTIPATION Last Admin: 08/27/18 21:50 Dose: 1 tab Tiotropium [place] (Spiriva Cap.Inh*) 1 cap INH 0900 [facility] Last Admin: 08/28/18 07:43 Dose: Not Given Torsemide (Torsemide) 40 mg PO DAILY [facility] Last Admin: 08/28/18 08:16 Dose: 40 mg Vital Signs - 8 hr 08/28/18 08/28/18 08/28/18 04:05 08:07 08:16 Temperature 98 F 98.4 F Pulse Rate 62 72 Respiratory 20 20 20 Rate Blood Pressure 128/60 150/68 (mmHg) O2 Sat by Pulse 90 Oximetry Oxygen Devices in Use Now: OxyMask Appearance: morbidly obese male sitting up in bed A+Ox3 Eyes: No Scleral Icterus, PERRLA Ears/Nose/Mouth/Throat: Mucous Membranes Moist Respiratory: Symmetrical Chest Expansion and Respiratory Effort Cardiovascular: NL Sounds; No Murmurs; No JVD, RRR, - - trcee LE edema; reproducible CP Abdominal: NL Sounds; No Tenderness; No Distention, - - obses Extremities: - - s/p transmetatarsal b/l amputation Neurological: Alert and Oriented x 3, NL Sensation, NL Muscle Strength and Tone Lines/Tubes/Other Access: Clean, Dry and Intact Peripheral IV Nutrition: Taking PO's Result Diagrams: 08/28/18 05:41 08/28/18 05:41 Microbiology and Other Data: Microbiology 08/27/18 04:25 Skin and Soft Tissue MRSA/MSSA (PCR - Final Leg Right Mrsa Positive S.aureus Positive Gram Stain - Preliminary 08/27/18 04:25 Skin and Soft Tissue MRSA/MSSA (PCR - Final Leg Left Mrsa Positive S.aureus Positive Gram Stain - Preliminary Assess/Plan/Problems-Billing Assessment: Mr Brad Shafer is a 62 yo male who is well known to the Hospitalist service with a PMH of chronic hypercarbic respiratory failure, COPD, Obesity hypoventilation syndrome, heart failure, hx of [place], sick sinus syndrome s/p pacer , JAIDEN, DVT/PE on anticoagulation, chronic LE bilateral wounds, morbid obesity who presented with 3 days of chest pain admitted to the hospitalist service. - Patient Problems (1) Chest pain Comment: - Pt r/o for ACS; known non-cardiac CP -Intermittent chest pain described as "a deep bruise or sharp stabbing" - reproducible on palpation "at times" per patient - admitted to tele, troponins trended x4 all negative - chest pain over night recieved 2 nitro's and pain resolved. Give GI cocktail - has epigastric discomfort on palpation - posisble esophageal spasms? - EKG no acute changes - Discussed with Dr. Casillas patient's title examiner who does not recommend a cardiac nuclear stress test as it will be abnormal and does not recommend a cath at this time - he states if he rules out no further work up. - Continue ASA 81 mg daily, BB (this needs to be continued at discharge - was not on H+P but is supposed to be taking this) (2) Malaise Comment: - unclear etilogy. pt reported WALL, flushed, chills yesterday now feels a little better- added on cefepime. sent blood cx as these were not sent on admission. No signs of sepsis. No leukocytosis. No Resp symptoms (besides RU chest wall intermittent pain), chest xray showing pulm edema consistent with previous - appears to be euvolemic. No GI symptoms. Possible viral illness vs LE wound infection?. - awaiting blood cx. - continue vanco, cefepime (3) BRBPR (bright red blood per rectum) Comment: small amount noted on bath yesterday per nursing - per pt has not had any noted BRB rectum/stool at home. Possible hemorrhoid? Small skin tag noted on rectum. HH stable. Continue to monitor. Pt is due to colonoscopy per patiet he was recommend to go last year and he failed to follow up (4) MRSA (methicillin resistant Staphylococcus aureus) Comment: - History of LE wounds - Positive MRSA wound cx - legs do not appear grossly infected. - wound consult - I think pt would benefit from the [facility] - he has aides helping him at home who have not been consistent. - continue Vanco (5) Obesity hypoventilation syndrome Comment: Continue BiPAP at night and with naps with supplemental O2 (6) Chronic respiratory failure Comment: Due to Obesity hypoventilation and COPD Chronic hypoxic and hypercarbic . on prn O2 at home Continue PRN inhalers. (7) Chronic diastolic heart failure Comment: - appears euvolemic - 05/2018 - Echo shows EF 55-60% but very limited study d/t body habitus - Continue home dose torsemide 40 mg daily - Daily weights (8) GERD (gastroesophageal reflux disease) Comment: Continue home Famotidine (9) Obstructive sleep apnea Comment: Complicated by dCHF Trilogy at home, BiPAP in the hospital (10) Atrial fibrillation Comment: - in Sinus rhythm - Continue Xarelto (11) History of pulmonary embolism Comment: - Indefinite Xarelto (12) DVT prophylaxis Comment: - Xarelto (13) Full code status Comment: Status and Disposition: inpatient with chest pain r/o ACS.
[2018-08-28] MEDS ORDERED: Magnesium CITRATE* 300 ML BTL PO ONE (10:30)
[2018-08-28] MEDS: Lidocaine 2% VISCOUS* 15 ML UDC PO ONE ×2 (11:28→14:02)
[2018-08-28] MEDS: Metoprolol Tartrate TAB* 25 MG PO SCH ×2 (11:29→21:52)
[2018-08-28] MEDS: Docusate CAP* 100 MG PO PRN (11:30)
[2018-08-28] MEDS: Acetaminophen TAB* 325 MG PO PRN (11:30)
[2018-08-28] MEDS: Senna TAB PO PRN (11:30)
[2018-08-28] MEDS: Cefepime 2 GM in Dextrose(*) 2 GM/50 ML BAG IV SCH ×2 (13:06→21:50)
[2018-08-28] MEDS ORDERED: Artificial Tears* 15 ML BTL BOTH EYES PRN (23:28)
[2018-08-29] MEDS: Acetaminophen TAB* 325 MG PO PRN ×3 (01:47→23:24)
[2018-08-29] MEDS: Cefepime 2 GM in Dextrose(*) 2 GM/50 ML BAG IV SCH (05:14)
[2018-08-29] MEDS: Tiotropium CAP.INH* CAP.INH/18 MCG (USE ORDER SET !) INH SCH (07:37)
[2018-08-29] MEDS ORDERED: Vancomycin Trough Check NOTE FOLLOW UP ONE (07:45)
[2018-08-29 08:26] LABS: ABS Eosinophils 0.2 10^3/ul (0-0.6); ABS Monocytes 0.5 10^3/ul (0-0.8); ABS Neutrophils 4.3 10^3/ul (1.5-7.7); Eosinophil % 3.1 %; Hematocrit 43 % (42-52); Hemoglobin 13.8 g/dL (14.0-18.0); Lymphocyte % 16.9 %; Mean Corpuscular HGB Conc 32 g/dL (31-36); Mean Corpuscular Hemoglobin 29 pg (27-31); Mean Corpuscular Volume 89 fL (80-94); Mean Platelet Volume 10.2 fL (7.4-10.4); Platelet Count 109 10^3/uL (150-450); Red Blood Count 4.84 10^6 /uL (4.18-5.48); Red Cell Distribution Width 16 % (10-15); White Blood Count 6.1 10^3/uL (3.5-10.8)
[2018-08-29 09:09] LABS: BUN/Creatinine Ratio 21.9 (8-20); Calcium 9.3 mg/dL (8.6-10.3); EGFR Non-African American 79.4 (>60); Potassium 3.7 mmol/L (3.5-5.0)
[2018-08-29] MEDS: Vancomycin(*) 1,000 MG in NS 0.9% 250 ML* 250 ML IVPB SCH (10:28)
[2018-08-29] MEDS: predniSONE TAB* 10 MG PO SCH (10:50)
[2018-08-29] MEDS: Torsemide TAB 10 MG PO SCH (10:51)
[2018-08-29] MEDS: Famotidine TAB* 20 MG PO SCH ×2 (10:52→23:10)
[2018-08-29] MEDS: Gabapentin CAP(*) 100 MG PO SCH ×2 (10:52→23:10)
[2018-08-29] MEDS: Aspirin EC TAB* 81 MG TAB.EC PO SCH (10:54)
[2018-08-29] MEDS: Rivaroxaban TAB(*) 20 MG TAB PO SCH (10:54)
[2018-08-29] MEDS: Docusate CAP* 100 MG PO PRN (10:54)
[2018-08-29] MEDS: Senna TAB PO PRN (10:54)
--- NOTE | 2018-08-29 13:46 | PN ---
Subjective Date of Service: 08/29/18 Interval History: patient reports he feels a little better today. he continues to have "random twinges of chest discomfort that are sharp or like a deep bruise". He reports reproducible chest tenderness. He denies any fever or chills. Headache has resolved. No body aches. he is concerned about his aide coverage and thinks it will work out and has some aides on back up however he also states that some aides frequently do not show up. Objective Active Medications: Acetaminophen (Tylenol Tab*) 975 mg PO Q8H PRN PRN Reason: FEVER/PAIN Last Admin: 08/29/18 10:55 Dose: 975 mg Albuterol (Ventolin 2.5 Mg/3 Ml Neb.Brandy*) 2.5 mg INH Q6H PRN PRN Reason: sob/wheeze Last Admin: 08/28/18 08:57 Dose: 2.5 mg Aspirin (Aspirin Ec Tab*) 81 mg PO DAILY [facility] Last Admin: 08/29/18 10:54 Dose: 81 mg Docusate Sodium (Colace Cap*) 100 mg PO BID PRN PRN Reason: CONSTIPATION Last Admin: 08/29/18 10:54 Dose: 100 mg Famotidine (Pepcid Tab*) 20 mg PO BID [facility] Last Admin: 08/29/18 10:52 Dose: 20 mg Gabapentin (Neurontin Cap(*)) 100 mg PO BID [facility] Last Admin: 08/29/18 10:52 Dose: 100 mg Nitroglycerin (Nitroglycerin Tab 0.4 Mg*) 0.4 mg SL Q5M PRN PRN Reason: chest pain Last Admin: 08/27/18 21:59 Dose: 0.4 mg Nystatin (Nystatin Top Powder*) 1 applic TOPICAL BID [facility] Last Admin: 08/28/18 21:26 Dose: 1 applic Oxycodone/Acetaminophen (Percocet 5/325 Tab*) 1 tab PO Q8H PRN PRN Reason: PAIN Last Admin: 08/27/18 21:50 Dose: 1 tab Polyvinyl Alcohol (Polyvinyl Alcohol 1.4% Opth*) 1 drop BOTH EYES Q2H PRN PRN Reason: DRY EYE Last Admin: 08/28/18 23:48 Dose: 1 drp Prednisone (Deltasone Tab*) 10 mg PO DAILY [facility] Last Admin: 08/29/18 10:50 Dose: 10 mg Rivaroxaban (Xarelto(*)) 20 mg PO DAILY [facility] Last Admin: 08/29/18 10:54 Dose: 20 mg Senna (Senokot Tab*) 1 tab PO BID PRN PRN Reason: CONSTIPATION Last Admin: 08/29/18 10:54 Dose: 1 tab Tiotropium [place] (Spiriva Cap.Inh*) 1 cap INH 0900 [facility] Last Admin: 08/29/18 07:37 Dose: 1 cap Torsemide (Torsemide) 40 mg PO DAILY [facility] Last Admin: 08/29/18 10:51 Dose: 40 mg Trimethoprim/Sulfamethoxazole (Bactrim Ds 800/160 Tab*) 1 tab PO BID [facility] Vital Signs - 8 hr 08/29/18 08/29/18 08/29/18 07:38 07:50 10:52 Temperature 97.0 F Pulse Rate 65 58 Respiratory 18 18 22 Rate Blood Pressure 131/65 (mmHg) O2 Sat by Pulse 94 95 Oximetry 08/29/18 11:08 Temperature 97.9 F Pulse Rate 64 Respiratory 20 Rate Blood Pressure 123/69 (mmHg) O2 Sat by Pulse 90 Oximetry Oxygen Devices in Use Now: Nasal Cannula Appearance: mosrbidly obese male lsying in bed A+O x3 in NAD Eyes: PERRLA Ears/Nose/Mouth/Throat: Mucous Membranes Moist Respiratory: Symmetrical Chest Expansion and Respiratory Effort, Clear to Auscultation Cardiovascular: NL Sounds; No Murmurs; No JVD, RRR Abdominal: NL Sounds; No Tenderness; No Distention, - - mosridly obese Extremities: No Edema, - - s/p transmetarsal amputations b/l - legs are wrapped in johanna wrapes bilaterally no drainage noted Neurological: Alert and Oriented x 3, NL Sensation Lines/Tubes/Other Access: Clean, Dry and Intact Peripheral IV Nutrition: Taking PO's Result Diagrams: 08/29/18 08:06 08/29/18 08:06 Microbiology and Other Data: Microbiology 08/27/18 04:25 Skin and Soft Tissue MRSA/MSSA (PCR - Final Leg Right Mrsa Positive S.aureus Positive Gram Stain - Preliminary 08/27/18 04:25 Skin and Soft Tissue MRSA/MSSA (PCR - Final Leg Left Mrsa Positive S.aureus Positive Gram Stain - Preliminary Assess/Plan/Problems-Billing Assessment: Mr Brad Shafer is a 62 yo male who is well known to the Hospitalist service with a PMH of chronic hypercarbic respiratory failure, COPD, Obesity hypoventilation syndrome, heart failure, hx of [place], sick sinus syndrome s/p pacer , JAIDEN, DVT/PE on anticoagulation, chronic LE bilateral wounds, morbid obesity who presented with 3 days of chest pain admitted to the hospitalist service. - Patient Problems (1) Chest pain Comment: - Pt r/o for ACS; known non-cardiac CP -Intermittent chest pain described as "a deep bruise or sharp stabbing" - reproducible on palpation "at times" per patient. Has known hx of noncardiac CP - admitted to tele, troponins trended x4 all negative - chest pain over night recieved 2 nitro's and pain resolved - suspect esophageal spasm - discussed with wire twister who recommended could add verapamil for anti-spasms but interacts with xarelto increasing bleeding risk. He did not want to start him on nitro patch or Imdur - however I have discussed this with the patient that he could discuss this further with Dr. Casillas. - EKG no acute changes - Discussed with Dr. Casillas patient's wire twister who does not recommend a cardiac nuclear stress test as it will be abnormal and does not recommend a cath at this time - he states if he rules out no further work up. - Continue ASA 81 mg daily, BB (this needs to be continued at discharge - was not on H+P but is supposed to be taking this) (2) Malaise Comment: - Resolved. pt reported WALL, flushed, chills 08/27 now feels much better- broaden abx at that time. No signs of sepsis. No leukocytosis. No Resp symptoms ( besides RU chest wall intermittent pain), chest xray showing pulm edema consistent with previous - appears to be euvolemic. No GI symptoms. Possible viral illness - blood cx NTD - DC vanco, cefepime (start Bactrim to cover MRSA leg wounds) (3) BRBPR (bright red blood per rectum) Comment: small amount noted on bath 08/27 per nursing - per pt has not had any noted BRB rectum/stool at home. Possible hemorrhoid? Small skin tag noted on rectum. HH stable. Continue to monitor. Pt is due to colonoscopy per patient he was recommend to go last year to [place] and he failed to follow up - recommend this on DC (4) MRSA (methicillin resistant Staphylococcus aureus) Comment: - History of LE wounds - Positive MRSA wound cx - appears chronic - legs do not appear grossly infected. - wound consult - I think pt would benefit from the wound clinic - he has aides helping him at home who have not been consistent. case management following to determine best DC plan - DC Vanco and restart bactrim (5) Obesity hypoventilation syndrome Comment: Continue BiPAP at night and with naps with supplemental O2 (6) Chronic respiratory failure Comment: Due to Obesity hypoventilation and COPD Chronic hypoxic and hypercarbic . on prn O2 at home Continue PRN inhalers. (7) Chronic diastolic heart failure Comment: - appears euvolemic - 05/2018 - Echo shows EF 55-60% but very limited study d/t body habitus - Continue home dose torsemide 40 mg daily - Daily weights (8) GERD (gastroesophageal reflux disease) Comment: Continue home Famotidine (9) Obstructive sleep apnea Comment: Complicated by dCHF Trilogy at home, BiPAP in the hospital (10) Atrial fibrillation Comment: - in Sinus rhythm - Continue Xarelto (11) History of pulmonary embolism Comment: - Indefinite Xarelto (12) DVT prophylaxis Comment: - Xarelto (13) Full code status Comment: Status and Disposition: inpatient with chest pain r/o ACS. Plan to DC to home. Case management is looking into his current aides at this time as it appears he self hires them, he is approved for so many hours a week, several of these aides are from [facility] where the patient used to reside and are unreliable showing up for his care which then is felt he does not get appropriate wound care, exercising and increases his risk for readmission. .
[2018-08-29] MEDS: Nystatin TOP POWDER* 15 GM BTL TOPICAL SCH ×2 (16:44→22:00)
[2018-08-29] MEDS: Sulfamethox/Trimethoprim DS 800/160* TAB PO SCH (23:09)
[2018-08-30] MEDS: Ciprofloxacin 0.3% OPTH.SOL* 5 ML BTL RIGHT EYE SCH ×5 (01:30→07:52)
[2018-08-30] MEDS: oxyCODONE/Acetamin 5/325 MG* TAB PO PRN (06:34)
[2018-08-30 07:03] LABS: ABS Eosinophils 0.2 10^3/ul (0-0.6); ABS Lymphocytes 0.9 10^3/ul (1.0-4.8); ABS Monocytes 0.5 10^3/ul (0-0.8); ABS Neutrophils 3.2 10^3/ul (1.5-7.7); Eosinophil % 4.5 %; Hematocrit 45 % (42-52); Hemoglobin 14.7 g/dL (14.0-18.0); Lymphocyte % 18.7 %; Mean Corpuscular HGB Conc 33 g/dL (31-36); Mean Corpuscular Hemoglobin 29 pg (27-31); Mean Corpuscular Volume 88 fL (80-94); Mean Platelet Volume 9.9 fL (7.4-10.4); Nucleated Red Blood Cells % 0.1; Platelet Count 110 10^3/uL (150-450); Red Blood Count 5.11 10^6 /uL (4.18-5.48); Red Cell Distribution Width 16 % (10-15); White Blood Count 4.9 10^3/uL (3.5-10.8)
[2018-08-30 07:24] LABS: BUN/Creatinine Ratio 30.9 (8-20); Calcium 9.7 mg/dL (8.6-10.3); EGFR African American 116.8 (>60); EGFR Non-African American 96.6 (>60); Potassium 3.3 mmol/L (3.5-5.0)
[2018-08-30] MEDS: Sulfamethox/Trimethoprim DS 800/160* TAB PO SCH ×2 (07:51→21:15)
[2018-08-30] MEDS: Rivaroxaban TAB(*) 20 MG TAB PO SCH (07:51)
[2018-08-30] MEDS: Torsemide TAB 10 MG PO SCH ×2 (07:51→07:52)
[2018-08-30] MEDS: predniSONE TAB* 10 MG PO SCH (07:51)
[2018-08-30] MEDS: Gabapentin CAP(*) 100 MG PO SCH ×2 (07:51→21:15)
[2018-08-30] MEDS: Famotidine TAB* 20 MG PO SCH ×2 (07:51→21:15)
[2018-08-30] MEDS: Aspirin EC TAB* 81 MG TAB.EC PO SCH (07:51)
[2018-08-30] MEDS: Tiotropium CAP.INH* CAP.INH/18 MCG (USE ORDER SET !) INH SCH (08:08)
[2018-08-30] MEDS: Ciprofloxacin 0.3% OPTH.SOL* 5 ML BTL BOTH EYES SCH ×7 (11:06→23:13)
--- NOTE | 2018-08-30 14:33 | CONSULT ---
Consult Consult: Consult for Medical Decision Making Capacity S: Psychiatry is asked to evaluate capacity in this 62 y.o. single, obese white male with multiple medical comorbidities, who is admitted to the Hospitalist service due to left-sided chest pain. According to his attending, Mallory Her, Mr. Shafer is a frequent utilizer of inpatient services [place] [facility] [place] is supposed to be receiving fairly intensive support services in the home setting, however, due to logistical problems and frequent no-shows by aides, his care is often suboptimal, leading to readmissions to the hospital. In Ms. Her's judgment, placement in an [facility] setting is indicated at this time. The risks for refusing this would include increased likelihood of infection, worsening ulcerative lesions and increased risk for falls, particularly since the patient is on blood-thinning treatment. On exam the patient is friendly and cooperative. He indicates that his regular aide, who is reliable, is on vacation in [place] but will be returning shortly. He reports being in an [facility] as recently as 6-7 weeks ago in [place], [place]. "They told me I really didn't need to be there and sent me home." The patient continues to decline [facility] placement, feeling like the care he receives at home is better than a nursing facility. "Believe me, I've been to all of these places. I can call EMS from my medical bracelet and they'll be there faster than the nurse would be at [facility]." He does acknowledge the risks of going home to include deconditioning, falls and bleeding from accidents. He demonstrates no evidence of cognitive deficit and is quite oriented to reality. O: obese white male, balding; dressed in patient gown; fair grooming; calm, cooperative; euthymic with full affect; denies SI or HI; insight and judgment fair given acknowledgement of risks to going home; awake and alert; oriented to person/place/situation/time A/P: Capacity: the patient is declining [facility] placement at this time and, in my opinion, has the capacity to do so, based on his ability to have a reciprocal conversation about his medical situation and his demonstrated understanding of the risks involved with going home. Capacity is subject to change in these situations and psychiatry can be re-consulted in the event of any significant changes in her presentation/situation. Thanks for the consult.
[2018-08-30] MEDS: Nystatin TOP POWDER* 15 GM BTL TOPICAL SCH ×2 (14:53→21:40)
--- NOTE | 2018-08-30 18:15 | CONSULT ---
Subjective Date of Service: 08/30/18 Interval History: Mr. Shafer is a 62 yo male with PMH significant for DVT/PE, morbid obesity, obesity hypoventilation syndrome with BiPAP use at bedtime, SSS s/p pacemaker placement, A fib, bilateral LE lymphedema, HF, and COPD. Mr. Shafer has been admitted to the hospital multiples times for respiratory failure and PNA. He presented to the hospital with complaints of chest pain. He presented to the hospital with bilateral LE wounds. In early June he was admitted to the hospital and was felt to have edematous infective dermatitis. He feels like the legs have improved since his previous admission. He was again admitted and is felt to have improvement in the appearance of the legs, but continues to have superficial open areas. Mr. Shafer has a home health aide who cares for his LE wounds. The legs are washed once a week with soap and water, then A+D ointment is applied. If there are areas with significant drainage, calcium alginate is applied. The legs are wrapped with rolled gauze and SYLVAI wraps. The dressings are changed once a week or sooner if needed. Patient seen and examined at bedside. Family History: Unchanged from Admission Social History: Unchanged from Admission Past Medical History: Unchanged from Admission Review of Systems - Measurements Intake and Output: Intake and Output Last 24 Hours 08/28/18 08/29/18 08/30/18 08/31/18 06:59 06:59 06:59 06:59 Intake Total 4360 2731 2515 1110 Output Total 2575 4500 5985 3050 Balance 4457 -9068 -1574 -7110 Intake: IV Fluids 176 437 275 ABX - CEFEPIME 44 162 ABX - VANCOMYCIN 88 275 275 NS (0.9%) 44 IVPB 2064 114 ABX - CEFEPIME 66 114 ABX - VANCOMYCIN 1998 Oral 2120 2180 2240 1110 Output: Urine 2575 4500 5985 3050 Other: Estimated Void Large Large Date of Last Bowel 08/28/18 Movement # Bowel Movements 1 1 Estimated Stool Amount Large Large # Voids 2 4 - Review of Systems Constitutional Symptoms: Negative: Fever, Other - Chills Dermatology: Positive: Other - Open wounds to bilateral LEs Endocrinology: Positive: Obesity, Diabetes Mellitus Objective Active Medications: Acetaminophen (Tylenol Tab*) 975 mg PO Q8H PRN Reason: FEVER/PAIN Albuterol (Ventolin 2.5 Mg/3 Ml Neb.Brandy*) 2.5 mg INH Q6H PRN Reason: sob/wheeze Aspirin (Aspirin Ec Tab*) 81 mg PO DAILY [facility] Ciprofloxacin (Cipro 0.3% Opth*) 1 drop BOTH EYES Q2H [place] Docusate Sodium (Colace Cap*) 100 mg PO BID PRN Reason: CONSTIPATION Famotidine (Pepcid Tab*) 20 mg PO BID [facility] Gabapentin (Neurontin Cap(*)) 100 mg PO BID [facility] Nitroglycerin (Nitroglycerin Tab 0.4 Mg*) 0.4 mg SL Q5M PRN Reason: chest pain Nystatin (Nystatin Top Powder*) 1 applic TOPICAL BID [facility] Oxycodone/Acetaminophen (Percocet 5/325 Tab*) 1 tab PO Q8H PRN Reason: PAIN Polyvinyl Alcohol (Polyvinyl Alcohol 1.4% Opth*) 1 drop BOTH EYES Q2H PRN Reason: DRY EYE Prednisone (Deltasone Tab*) 10 mg PO DAILY [facility] Rivaroxaban (Xarelto(*)) 20 mg PO DAILY [facility] Senna (Senokot Tab*) 1 tab PO BID PRN Reason: CONSTIPATION Tiotropium [place] (Spiriva Cap.Inh*) 1 cap INH 0900 [facility] Torsemide (Torsemide) 40 mg PO DAILY [facility] Trimethoprim/Sulfamethoxazole (Bactrim Ds 800/160 Tab*) 1 tab PO BID [facility] Vital Signs - 8 hr 08/30/18 08/30/18 11:30 16:09 Temperature 98.1 F 98.7 F Pulse Rate 73 64 Respiratory 20 16 Rate Blood Pressure 115/78 119/75 (mmHg) O2 Sat by Pulse 90 90 Oximetry Oxygen Devices in Use Now: Nasal Cannula - 2L Appearance: NAD, sitting up in a chair Ears/Nose/Mouth/Throat: Mucous Membranes Moist Respiratory: Symmetrical Chest Expansion and Respiratory Effort Skin: - - see skin note below Neurological: Alert and Oriented x 3 Nutrition: Taking PO's Result Diagrams: 08/30/18 06:32 09/01/18 07:03 Microbiology and Other Data: Microbiology 08/27/18 04:25 Skin and Soft Tissue MRSA/MSSA (PCR - Final Leg Right Mrsa Positive S.aureus Positive Gram Stain - Preliminary 08/27/18 04:25 Skin and Soft Tissue MRSA/MSSA (PCR - Final Leg Left Mrsa Positive S.aureus Positive Gram Stain - Preliminary Skin Deviation Note - Skin Deviation Findings Bilateral LEs - There is dry flaky skin that is intact. There is mild erythema noted to bilateral LEs. Right anterior lower leg - There are 2 superficial open areas. The proximal wound measure 1.2 cm x 1.2 cm x 0.1 cm. The distal wound measures 2 cm x 0.9 cm x 0.1 cm. The wound bases are red granulation tissue. There is serosang drainage from the wounds. There is yellow flaky skin (appears to be lymph drainage) surrounding the wounds. There is also mild erythema to the skin. Left posterior lower leg - There are several superficial open areas; measuring 8.4 cm x 3 cmx 0.1 cm (larger one including small wound distal), 2 small wounds 2.7 cm x 1 cm x 0.1 cm and 2.3 cm x 1 cm x 0.1 cm. The wound bases are red granulation tissue. There is serosang drainage. The surrounding skin has mild erythema and appears to be macerated. Assessment/Plan: Mr. Shafer is a 62 yo male with PMH significant for DVT/PE, morbid obesity, obesity hypoventilation syndrome with BiPAP use at bedtime, SSS s/p pacemaker placement, A fib, bilateral LE lymphedema, HF, and COPD. Mr. Shafer has been admitted to the hospital multiples times for respiratory failure and PNA. He presented to the hospital with complaints of chest pain. He presented to the hospital with bilateral LE wounds. 1. Bilateral LEs with venous stasis ulcers. Known history of venous stasis ulcers and follows with the [facility] wound clinic as needed. Overall the legs are looking better from his last 2 hospital stays. Recommend washing the legs with soap and water when dressings are changed. Apply lotion to bilateral LEs where the skin is intact. Apply calcium alginate to the open areas on the posterior left leg, followed by rolled gauze, and SYLVIA wraps. Change dressings every 2 to 3 days or PRN for soiling. If the dressing sticks to the open areas moisten the dressings with normal saline to remove. Keep legs elevated in bed. 2. Morbid obesity with obesity hypoventilation syndrome. BMI 70.9. 3. Chronic bilateral LE lymphedema with history of venous stasis ulcers. 4. Diet. Low sodium diet. 5. Code Status. Full code. 6. Disposition. Disposition per primary medicine team. TIME SPENT: Time for this wound consultation was 30 minutes with 20 minutes was spent discussing past medical history; assessing, measuring, and photographing the wounds; removing and reapplying the dressings. Wound Problem/Plan Is Patient a Wound Clinic Patient: Ramona Arias [facility] as needed Attending: Nina Gilman
--- NOTE | 2018-08-30 19:23 | PN ---
Subjective Date of Service: 08/30/18 Interval History: Resting in bed. Reports he continues to have intermittent "deep bruise" sensation in chest. He reports they are less frequent and do not last as long as previously. Denies palpitations or sob. Family History: Unchanged from Admission Social History: Unchanged from Admission Past Medical History: Unchanged from Admission Objective Active Medications: Acetaminophen (Tylenol Tab*) 975 mg PO Q8H PRN PRN Reason: FEVER/PAIN Last Admin: 08/29/18 23:24 Dose: 975 mg Albuterol (Ventolin 2.5 Mg/3 Ml Neb.Brandy*) 2.5 mg INH Q6H PRN PRN Reason: sob/wheeze Last Admin: 08/28/18 08:57 Dose: 2.5 mg Aspirin (Aspirin Ec Tab*) 81 mg PO DAILY [facility] Last Admin: 08/30/18 07:51 Dose: 81 mg Ciprofloxacin (Cipro 0.3% Opth*) 1 drop BOTH EYES Q2H [facility] Last Admin: 08/30/18 17:24 Dose: 1 drop Docusate Sodium (Colace Cap*) 100 mg PO BID PRN PRN Reason: CONSTIPATION Last Admin: 08/29/18 10:54 Dose: 100 mg Famotidine (Pepcid Tab*) 20 mg PO BID [facility] Last Admin: 08/30/18 07:51 Dose: 20 mg Gabapentin (Neurontin Cap(*)) 100 mg PO BID [facility] Last Admin: 08/30/18 07:51 Dose: 100 mg Nitroglycerin (Nitroglycerin Tab 0.4 Mg*) 0.4 mg SL Q5M PRN PRN Reason: chest pain Last Admin: 08/27/18 21:59 Dose: 0.4 mg Nystatin (Nystatin Top Powder*) 1 applic TOPICAL BID [facility] Last Admin: 08/30/18 14:53 Dose: 1 applic Oxycodone/Acetaminophen (Percocet 5/325 Tab*) 1 tab PO Q8H PRN PRN Reason: PAIN Last Admin: 08/30/18 06:34 Dose: 1 tab Polyvinyl Alcohol (Polyvinyl Alcohol 1.4% Opth*) 1 drop BOTH EYES Q2H PRN PRN Reason: DRY EYE Last Admin: 08/28/18 23:48 Dose: 1 drp Prednisone (Deltasone Tab*) 10 mg PO DAILY [facility] Last Admin: 08/30/18 07:51 Dose: 10 mg Rivaroxaban (Xarelto(*)) 20 mg PO DAILY [facility] Last Admin: 08/30/18 07:51 Dose: 20 mg Senna (Senokot Tab*) 1 tab PO BID PRN PRN Reason: CONSTIPATION Last Admin: 08/29/18 10:54 Dose: 1 tab Tiotropium [place] (Spiriva Cap.Inh*) 1 cap INH 0900 [facility] Last Admin: 08/30/18 08:08 Dose: 1 cap Torsemide (Torsemide) 40 mg PO DAILY [facility] Last Admin: 08/30/18 07:52 Dose: Not Given Trimethoprim/Sulfamethoxazole (Bactrim Ds 800/160 Tab*) 1 tab PO BID [facility] Last Admin: 08/30/18 07:51 Dose: 1 tab Vital Signs - 8 hr 08/30/18 08/30/18 11:30 16:09 Temperature 98.1 F 98.7 F Pulse Rate 73 64 Respiratory 20 16 Rate Blood Pressure 115/78 119/75 (mmHg) O2 Sat by Pulse 90 90 Oximetry Oxygen Devices in Use Now: Nasal Cannula - 2L Appearance: Comfortable, NAD Eyes: No Scleral Icterus Ears/Nose/Mouth/Throat: Mucous Membranes Moist Neck: NL Appearance and Movements; NL JVP Respiratory: Symmetrical Chest Expansion and Respiratory Effort, Clear to Auscultation Cardiovascular: NL Sounds; No Murmurs; No JVD, RRR, No Edema Abdominal: NL Sounds; No Tenderness; No Distention Lymphatic: No Cervical Adenopathy Extremities: No Clubbing, Cyanosis Skin: - - Bilateral chronic leg wounds. Open areas x2 to posterior right calf and x1 to posterior left calf Neurological: Alert and Oriented x 3 Nutrition: Taking PO's Result Diagrams: 08/30/18 06:32 08/30/18 06:32 Additional Lab and Data: Laboratory Results - last 24 hr 08/30/18 08/30/18 06:32 06:32 WBC 4.9 RBC 5.11 Hgb 14.7 Hct 45 MCV 88 MCH 29 MCHC 33 RDW 16 H Plt Count 110 L MPV 9.9 Neut % (Auto) 66.5 Lymph % (Auto) 18.7 [place] % (Auto) 9.7 Eos % (Auto) 4.5 Baso % (Auto) 0.6 Absolute Neuts (auto) 3.2 Absolute Lymphs (auto) 0.9 L Absolute Monos (auto) 0.5 Absolute Eos (auto) 0.2 Absolute Basos (auto) 0.0 Absolute Nucleated RBC 0.0 Nucleated RBC % 0.1 Sodium 140 Potassium 3.3 L Chloride 89 L Carbon Dioxide 44 H* Anion Gap 7 BUN 25 H Creatinine 0.81 Est GFR ( Amer) 116.8 Est GFR (Non-Af Amer) 96.6 BUN/Creatinine Ratio 30.9 H Glucose 131 H Calcium 9.7 Microbiology and Other Data: Microbiology 08/27/18 15:55 Aerobic Blood Culture - Preliminary Blood Venous No Growth Day 3 Anaerobic Blood Culture - Preliminary No Growth Day 3 08/27/18 15:02 Aerobic Blood Culture - Preliminary Blood Venous No Growth Day 3 Anaerobic Blood Culture - Preliminary No Growth Day 3 08/27/18 04:25 Skin and Soft Tissue MRSA/MSSA (PCR - Final Leg Left Mrsa Positive S.aureus Positive Gram Stain - Final Wound Culture - Final MRSA Proteus Mirabilis 08/27/18 04:25 Skin and Soft Tissue MRSA/MSSA (PCR - Final Leg Right Mrsa Positive S.aureus Positive Gram Stain - Final Wound Culture - Final MRSA 08/27/18 17:30 Urine Culture - Final Urine Assess/Plan/Problems-Billing Assessment: Mr Brad Shafer is a 62 yo male who is well known to the Hospitalist service with a PMH of chronic hypercarbic respiratory failure, COPD, Obesity hypoventilation syndrome, heart failure, hx of [place], sick sinus syndrome s/p pacer , JAIDEN, DVT/PE on anticoagulation, chronic LE bilateral wounds, morbid obesity who presented with 3 days of chest pain admitted to the hospitalist service. - Patient Problems (1) Chest pain Comment: - Pt r/o for ACS; known non-cardiac CP -Intermittent chest pain described as "a deep bruise or sharp stabbing". Has known hx of noncardiac CP - Sinus with occasional PVc on tele - Troponins trended x4 all negative - Previously recieved 2 nitro's and pain resolved - suspect esophageal spasm - Previouls provider discussed with retrofit installer who recommended could add verapamil for anti-spasms but interacts with xarelto increasing bleeding risk. He did not want to start him on nitro patch or Imdur - however I have discussed this with the patient that he could discuss this further with Dr. Casillas. - EKG no acute changes - Discussed with Dr. Casillas patient's retrofit installer who does not recommend a cardiac nuclear stress test as it will be abnormal and does not recommend a cath at this time - he states if he rules out no further work up. - Continue ASA 81 mg daily, BB (this needs to be continued at discharge - was not on H+P but is supposed to be taking this) (2) Chronic diastolic heart failure Comment: - Appears euvolemic - 05/2018 - Echo shows EF 55-60% but very limited study d/t body habitus - Given increase is Bicarb we will decrease Torsemide 40 mg daily to 20 mg daily. In additon, add Aldactone 25 mg daily. Monitor electrolytes - Daily weights (3) Malaise Comment: - Resolved. (4) Atrial fibrillation Comment: - in Sinus rhythm - Continue Xarelto (5) Chronic respiratory failure Comment: - Due to Obesity hypoventilation and COPD - Chronic hypoxic and hypercarbic . on prn O2 at home - Continue PRN inhalers. (6) GERD (gastroesophageal reflux disease) Comment: - Continue home Famotidine (7) History of pulmonary embolism Comment: - Indefinite Xarelto (8) MRSA (methicillin resistant Staphylococcus aureus) Comment: - Cont bactrim - Wound care saw patient today given open areas x2 on posterior right calf and x1 on posterior left calf - Positive MRSA wound cx - appears chronic - Legs do not appear grossly infected. - Was on Vanco and transitioned to bactrim (9) Obesity hypoventilation syndrome Comment: - Continue BiPAP at night and with naps with supplemental O2 (10) Obstructive sleep apnea Comment: - Complicated by CHF and obesity - Trilogy at home, BiPAP in the hospital (11) DVT prophylaxis Comment: - Xarelto (12) Full code status Comment: Status and Disposition: inpatient with chest pain r/o ACS. Plan to DC to home. Case management is looking into his current aides at this time as it appears he self hires them, he is approved for so many hours a week, several of these aides are from [facility] where the patient used to reside and are unreliable showing up for his care which then is felt he does not get appropriate wound care, exercising and increases his risk for readmission. . Attending: Temo Campos
[2018-08-30] MEDS: Acetaminophen TAB* 325 MG PO PRN (21:14)
[2018-08-31] MEDS: Ciprofloxacin 0.3% OPTH.SOL* 5 ML BTL BOTH EYES SCH ×13 (01:54→23:30)
[2018-08-31 06:30] LABS: BUN/Creatinine Ratio 29.1 (8-20); Calcium 9.7 mg/dL (8.6-10.3); EGFR African American 120.3 (>60); EGFR Non-African American 99.4 (>60); Magnesium 2.3 mg/dL (1.9-2.7); Potassium 3.8 mmol/L (3.5-5.0)
[2018-08-31] MEDS: Famotidine TAB* 20 MG PO SCH ×2 (08:00→23:28)
[2018-08-31] MEDS: Spironolactone TAB* 25 MG PO SCH (08:00)
[2018-08-31] MEDS: Sulfamethox/Trimethoprim DS 800/160* TAB PO SCH (08:00)
[2018-08-31] MEDS: Aspirin EC TAB* 81 MG TAB.EC PO SCH (08:00)
[2018-08-31] MEDS: Torsemide TAB 10 MG PO SCH (08:01)
[2018-08-31] MEDS: Rivaroxaban TAB(*) 20 MG TAB PO SCH (08:01)
[2018-08-31] MEDS: predniSONE TAB* 10 MG PO SCH (08:01)
[2018-08-31] MEDS: Gabapentin CAP(*) 100 MG PO SCH ×2 (08:01→23:28)
[2018-08-31] MEDS: Tiotropium CAP.INH* CAP.INH/18 MCG (USE ORDER SET !) INH SCH (08:24)
--- NOTE | 2018-08-31 15:31 | PN ---
Subjective Date of Service: 08/31/18 Interval History: Patient reports chest pain is less frequent today. Reports he has had only one episode of "deep bruise" sensation in left chest that had no aggravating or alleviating factors. Reports pain resolved on its own. Denies sob reporting he feels he is breathing good today. Denies palpitation, nausea, vomiting, diarrhea , weakness, dizziness, headache. Family History: Unchanged from Admission Social History: Unchanged from Admission Past Medical History: Unchanged from Admission Objective Active Medications: Acetaminophen (Tylenol Tab*) 975 mg PO Q8H PRN PRN Reason: FEVER/PAIN Last Admin: 08/30/18 21:14 Dose: 975 mg Albuterol (Ventolin 2.5 Mg/3 Ml Neb.Brandy*) 2.5 mg INH Q6H PRN PRN Reason: sob/wheeze Last Admin: 08/28/18 08:57 Dose: 2.5 mg Aspirin (Aspirin Ec Tab*) 81 mg PO DAILY [facility] Last Admin: 08/31/18 08:00 Dose: 81 mg Ciprofloxacin (Cipro 0.3% Opth*) 1 drop BOTH EYES Q2H [facility] Last Admin: 08/31/18 14:44 Dose: 1 drop Docusate Sodium (Colace Cap*) 100 mg PO BID PRN PRN Reason: CONSTIPATION Last Admin: 08/29/18 10:54 Dose: 100 mg Famotidine (Pepcid Tab*) 20 mg PO BID [facility] Last Admin: 08/31/18 08:00 Dose: 20 mg Gabapentin (Neurontin Cap(*)) 100 mg PO BID [facility] Last Admin: 08/31/18 08:01 Dose: 100 mg Nitroglycerin (Nitroglycerin Tab 0.4 Mg*) 0.4 mg SL Q5M PRN PRN Reason: chest pain Last Admin: 08/27/18 21:59 Dose: 0.4 mg Nystatin (Nystatin Top Powder*) 1 applic TOPICAL BID [facility] Last Admin: 08/30/18 21:40 Dose: 1 applic Oxycodone/Acetaminophen (Percocet 5/325 Tab*) 1 tab PO Q8H PRN PRN Reason: PAIN Last Admin: 08/30/18 06:34 Dose: 1 tab Polyvinyl Alcohol (Polyvinyl Alcohol 1.4% Opth*) 1 drop BOTH EYES Q2H PRN PRN Reason: DRY EYE Last Admin: 08/28/18 23:48 Dose: 1 drp Prednisone (Deltasone Tab*) 10 mg PO DAILY [facility] Last Admin: 08/31/18 08:01 Dose: 10 mg Rivaroxaban (Xarelto(*)) 20 mg PO DAILY [facility] Last Admin: 08/31/18 08:01 Dose: 20 mg Senna (Senokot Tab*) 1 tab PO BID PRN PRN Reason: CONSTIPATION Last Admin: 08/29/18 10:54 Dose: 1 tab Spironolactone (Aldactone Tab*) 25 mg PO DAILY [facility] Last Admin: 08/31/18 08:00 Dose: 25 mg Tiotropium [place] (Spiriva Cap.Inh*) 1 cap INH 0900 [facility] Last Admin: 08/31/18 08:24 Dose: Not Given Torsemide (Torsemide) 20 mg PO DAILY [facility] Last Admin: 08/31/18 08:01 Dose: 20 mg Trimethoprim/Sulfamethoxazole (Bactrim Ds 800/160 Tab*) 1 tab PO BID [facility] Last Admin: 08/31/18 08:00 Dose: 1 tab Vital Signs - 8 hr 08/31/18 08/31/18 08/31/18 08:01 09:20 11:00 Temperature Pulse Rate Respiratory 18 18 18 Rate Blood Pressure (mmHg) O2 Sat by Pulse Oximetry 08/31/18 12:45 Temperature 97.9 F Pulse Rate 74 Respiratory 20 Rate Blood Pressure 110/61 (mmHg) O2 Sat by Pulse 92 Oximetry Oxygen Devices in Use Now: Nasal Cannula Appearance: Comfortable, NAD Eyes: No Scleral Icterus Ears/Nose/Mouth/Throat: Clear Oropharnyx, Mucous Membranes Moist Neck: NL Appearance and Movements; NL JVP Respiratory: Symmetrical Chest Expansion and Respiratory Effort, Clear to Auscultation Cardiovascular: NL Sounds; No Murmurs; No JVD, RRR, No Edema Abdominal: NL Sounds; No Tenderness; No Distention Lymphatic: No Cervical Adenopathy Extremities: No Clubbing, Cyanosis Skin: - - Bilateral chronic lower leg wounds Neurological: Alert and Oriented x 3 Nutrition: Taking PO's Result Diagrams: 08/30/18 06:32 08/31/18 05:48 Additional Lab and Data: Laboratory Results - last 24 hr 08/31/18 05:48 Sodium 139 Potassium 3.8 Chloride 93 L Carbon Dioxide 43 H* Anion Gap 3 BUN 23 Creatinine 0.79 Est GFR ( Amer) 120.3 Est GFR (Non-Af Amer) 99.4 BUN/Creatinine Ratio 29.1 H Glucose 142 H Calcium 9.7 Magnesium 2.3 Microbiology and Other Data: Microbiology 08/27/18 15:02 Blood Venous Aerobic Blood Culture - Preliminary No Growth Day 4 08/27/18 15:02 Blood Venous Anaerobic Blood Culture - Preliminary No Growth Day 4 08/27/18 15:55 Blood Venous Aerobic Blood Culture - Preliminary No Growth Day 3 08/27/18 15:55 Blood Venous Anaerobic Blood Culture - Preliminary No Growth Day 3 08/27/18 04:25 Leg Left Skin and Soft Tissue MRSA/MSSA (PCR - Final Mrsa Positive S.aureus Positive 08/27/18 04:25 Leg Left Gram Stain - Final 08/27/18 04:25 Leg Left Wound Culture - Final MRSA Proteus Mirabilis 08/27/18 04:25 Leg Right Skin and Soft Tissue MRSA/MSSA (PCR - Final Mrsa Positive S.aureus Positive 08/27/18 04:25 Leg Right Gram Stain - Final 08/27/18 04:25 Leg Right Wound Culture - Final MRSA 08/27/18 17:30 Urine Urine Culture - Final Assess/Plan/Problems-Billing Assessment: Mr Brad Shafer is a 62 yo male who is well known to the Hospitalist service with a PMH of chronic hypercarbic respiratory failure, COPD, Obesity hypoventilation syndrome, heart failure, hx of [place], sick sinus syndrome s/p pacer , JAIDEN, DVT/PE on anticoagulation, chronic LE bilateral wounds, morbid obesity who presented with 3 days of chest pain admitted to the hospitalist service. - Patient Problems (1) Chest pain Comment: - Chest pain improving in frequency and severity per patient. - Pt r/o for ACS; known non-cardiac CP -Intermittent chest pain described as "a deep bruise or sharp stabbing". Has known hx of noncardiac CP - Sinus with occasional PVc on tele - Troponins trended x4 all negative - Previously recieved 2 nitro's and pain resolved - suspect esophageal spasm. Previous provider discussed with director of curriculum who recommended could add verapamil for anti-spasms but interacts with xarelto increasing bleeding risk. He did not want to start him on nitro patch or Imdur - however I have discussed this with the patient that he could discuss this further with Dr. Casillas. - EKG no acute changes - Previous provider discussed with Dr. Casillas patient's director of curriculum who does not recommend a cardiac nuclear stress test as it will be abnormal and does not recommend a cath at this time - he states if he rules out no further work up. - Continue ASA 81 mg daily, BB (this needs to be continued at discharge - was not on H+P but is supposed to be taking this) - Low suspicion for other lung etiology as patient has no s/s of pneumonia and dvt is unlikely has patient is anticoagulated, no sob, no increase in oxygen demand, and no tachycardia. In addition symptoms improving. (2) Chronic diastolic heart failure Comment: - Yesterday torsemide was decreased from 40 mg daily to 20 mg daily. In additon , add Aldactone 25 mg daily given bicarb retention. - Monitory electrolytes as Aldactone is new - Appears euvolemic - 05/2018 - Echo shows EF 55-60% but very limited study d/t body habitus - Daily weights and Strict I & Os (3) Malaise Comment: - Resolved. (4) Atrial fibrillation Comment: - in Sinus rhythm - Continue Xarelto (5) Chronic respiratory failure Comment: - Due to Obesity hypoventilation and COPD - Chronic hypoxic and hypercarbic . on prn O2 at home - Continue PRN inhalers. 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 - Wound care following - Consider stopping abx as it appears chronic (9) Obesity hypoventilation syndrome Comment: - Continue BiPAP at night and with naps with supplemental O2 (10) Obstructive sleep apnea Comment: - Complicated by CHF and obesity - Trilogy at home, BiPAP in the hospital (11) DVT prophylaxis Comment: - Xarelto (12) Full code status Comment: Status and Disposition: inpatient with chest pain r/o ACS. Plan to DC to home. Case management is looking into his current aides at this time as it appears he self hires them, he is approved for so many hours a week, several of these aides are from [facility] where the patient used to reside and are unreliable showing up for his care which then is felt he does not get appropriate wound care, exercising and increases his risk for readmission. . Attending: Temo Campos
[2018-08-31] MEDS: Nystatin TOP POWDER* 15 GM BTL TOPICAL SCH ×2 (15:51→23:28)
[2018-08-31] MEDS: oxyCODONE/Acetamin 5/325 MG* TAB PO PRN (23:29)
[2018-09-01] MEDS: Ciprofloxacin 0.3% OPTH.SOL* 5 ML BTL BOTH EYES SCH ×4 (02:00→08:20)
[2018-09-01] MEDS ORDERED: Vancomycin Trough Check NOTE FOLLOW UP ONE (07:30)
[2018-09-01 08:06] LABS: Calcium 9.6 mg/dL (8.6-10.3); EGFR African American 118.5 (>60); Magnesium 2.1 mg/dL (1.9-2.7); Potassium 3.8 mmol/L (3.5-5.0)
[2018-09-01] MEDS: Nystatin TOP POWDER* 15 GM BTL TOPICAL SCH ×2 (08:20→20:47)
[2018-09-01] MEDS: predniSONE TAB* 10 MG PO SCH (08:21)
[2018-09-01] MEDS: Gabapentin CAP(*) 100 MG PO SCH ×2 (08:21→20:48)
[2018-09-01] MEDS: Torsemide TAB 10 MG PO SCH (08:21)
[2018-09-01] MEDS: Rivaroxaban TAB(*) 20 MG TAB PO SCH (08:21)
[2018-09-01] MEDS: Spironolactone TAB* 25 MG PO SCH (08:22)
[2018-09-01] MEDS: Famotidine TAB* 20 MG PO SCH ×2 (08:22→20:49)
[2018-09-01] MEDS: Aspirin EC TAB* 81 MG TAB.EC PO SCH (08:22)
[2018-09-01] MEDS: Tiotropium CAP.INH* CAP.INH/18 MCG (USE ORDER SET !) INH SCH (08:30)
[2018-09-01] MEDS: Polymyx/Trimethoprim OPTH* 10 ML BTL BOTH EYES SCH ×6 (11:05→20:48)
--- NOTE | 2018-09-01 18:17 | PN ---
Subjective Date of Service: 09/01/18 Interval History: Resting in bed. Reports he is upset as his legs scratched against the bed during PT and bled. Denies recurrence of chest pain "deep bruise" feeling today. Denies sob, nausea, vomiting, fever, chills. Continues to have bilateral eye drainage and irritation. Family History: Unchanged from Admission Social History: Unchanged from Admission Past Medical History: Unchanged from Admission Objective Active Medications: Acetaminophen (Tylenol Tab*) 975 mg PO Q8H PRN PRN Reason: FEVER/PAIN Last Admin: 08/30/18 21:14 Dose: 975 mg Albuterol (Ventolin 2.5 Mg/3 Ml Neb.Brandy*) 2.5 mg INH Q6H PRN PRN Reason: sob/wheeze Last Admin: 08/28/18 08:57 Dose: 2.5 mg Aspirin (Aspirin Ec Tab*) 81 mg PO DAILY [facility] Last Admin: 09/01/18 08:22 Dose: 81 mg Docusate Sodium (Colace Cap*) 100 mg PO BID PRN PRN Reason: CONSTIPATION Last Admin: 08/29/18 10:54 Dose: 100 mg Famotidine (Pepcid Tab*) 20 mg PO BID [facility] Last Admin: 09/01/18 08:22 Dose: 20 mg Gabapentin (Neurontin Cap(*)) 100 mg PO BID [facility] Last Admin: 09/01/18 08:21 Dose: 100 mg Nitroglycerin (Nitroglycerin Tab 0.4 Mg*) 0.4 mg SL Q5M PRN PRN Reason: chest pain Last Admin: 08/27/18 21:59 Dose: 0.4 mg Nystatin (Nystatin Top Powder*) 1 applic TOPICAL BID [facility] Last Admin: 09/01/18 08:20 Dose: 1 applic Oxycodone/Acetaminophen (Percocet 5/325 Tab*) 1 tab PO Q8H PRN PRN Reason: PAIN Last Admin: 08/31/18 23:29 Dose: 1 tab Polymyxin/Trimethoprim Sulfate (Polytrim Ophth*) 1 drop BOTH EYES Q3H [facility] Last Admin: 09/01/18 14:59 Dose: 1 drop Polyvinyl Alcohol (Polyvinyl Alcohol 1.4% Opth*) 1 drop BOTH EYES Q2H PRN PRN Reason: DRY EYE Last Admin: 08/28/18 23:48 Dose: 1 drp Prednisone (Deltasone Tab*) 10 mg PO DAILY [facility] Last Admin: 09/01/18 08:21 Dose: 10 mg Rivaroxaban (Xarelto(*)) 20 mg PO DAILY [facility] Last Admin: 09/01/18 08:21 Dose: 20 mg Senna (Senokot Tab*) 1 tab PO BID PRN PRN Reason: CONSTIPATION Last Admin: 08/29/18 10:54 Dose: 1 tab Spironolactone (Aldactone Tab*) 25 mg PO DAILY [facility] Last Admin: 09/01/18 08:22 Dose: 25 mg Tiotropium [place] (Spiriva Cap.Inh*) 1 cap INH 0900 [facility] Last Admin: 09/01/18 08:30 Dose: 1 cap Torsemide (Torsemide) 20 mg PO DAILY [facility] Last Admin: 09/01/18 08:21 Dose: 20 mg Vital Signs - 8 hr 09/01/18 09/01/18 09/01/18 11:47 12:50 15:16 Temperature 99.1 F 98.1 F Pulse Rate 72 70 Respiratory 18 20 12 Rate Blood Pressure 124/71 136/67 (mmHg) O2 Sat by Pulse 87 95 Oximetry Oxygen Devices in Use Now: Nasal Cannula Appearance: Comfortable, NAD Eyes: No Scleral Icterus, - - External eyes reddened and purulent drainage noted. Ears/Nose/Mouth/Throat: NL Teeth, Lips, Gums, Mucous Membranes Moist Neck: NL Appearance and Movements; NL JVP Respiratory: Symmetrical Chest Expansion and Respiratory Effort, Clear to Auscultation Cardiovascular: NL Sounds; No Murmurs; No JVD, RRR Abdominal: NL Sounds; No Tenderness; No Distention Lymphatic: No Cervical Adenopathy Skin: - - Bilater LE chronic wounds Neurological: Alert and Oriented x 3 Nutrition: Taking PO's Result Diagrams: 08/30/18 06:32 09/01/18 07:03 Additional Lab and Data: Laboratory Results - last 24 hr 09/01/18 07:03 Sodium 139 Potassium 3.8 Chloride 94 L Carbon Dioxide 40 H Anion Gap 5 BUN 20 Creatinine 0.80 Est GFR ( Amer) 118.5 Est GFR (Non-Af Amer) 98.0 BUN/Creatinine Ratio 25.0 H Glucose 108 H Calcium 9.6 Magnesium 2.1 Microbiology and Other Data: Microbiology 08/27/18 15:02 Blood Venous Aerobic Blood Culture - Preliminary No Growth Day 4 08/27/18 15:02 Blood Venous Anaerobic Blood Culture - Preliminary No Growth Day 4 08/27/18 15:55 Blood Venous Aerobic Blood Culture - Preliminary No Growth Day 3 08/27/18 15:55 Blood Venous Anaerobic Blood Culture - Preliminary No Growth Day 3 08/27/18 04:25 Leg Left Skin and Soft Tissue MRSA/MSSA (PCR - Final Mrsa Positive S.aureus Positive 08/27/18 04:25 Leg Left Gram Stain - Final 08/27/18 04:25 Leg Left Wound Culture - Final MRSA Proteus Mirabilis 08/27/18 04:25 Leg Right Skin and Soft Tissue MRSA/MSSA (PCR - Final Mrsa Positive S.aureus Positive 08/27/18 04:25 Leg Right Gram Stain - Final 08/27/18 04:25 Leg Right Wound Culture - Final MRSA 08/27/18 17:30 Urine Urine Culture - Final Assess/Plan/Problems-Billing Assessment: Mr Brad Shafer is a 62 yo male who is well known to the Hospitalist service with a PMH of chronic hypercarbic respiratory failure, COPD, Obesity hypoventilation syndrome, heart failure, hx of [place], sick sinus syndrome s/p pacer , JAIDEN, DVT/PE on anticoagulation, chronic LE bilateral wounds, morbid obesity who presented with 3 days of chest pain admitted to the hospitalist service. - Patient Problems (1) Conjunctivitis Comment: - Not improving with Cipro therefore changed to PolyMix (2) Chest pain Comment: - No chest pain reported today as of assessment time - Chest pain improving in frequency and severity per patient. - Pt r/o for ACS; known non-cardiac CP -Intermittent chest pain described as "a deep bruise or sharp stabbing". Has known hx of noncardiac CP - Sinus with occasional PVc on tele - Troponins trended x4 all negative - Previously recieved 2 nitro's and pain resolved - suspect esophageal spasm. Previous provider discussed with stope miner who recommended could add verapamil for anti-spasms but interacts with xarelto increasing bleeding risk. He did not want to start him on nitro patch or Imdur - Previous provider also discussed this with the patient that he could discuss this further with Dr. Casillas. - EKG no acute changes - Previous provider discussed with Dr. Casillas patient's stope miner who does not recommend a cardiac nuclear stress test as it will be abnormal and does not recommend a cath at this time - he states if he rules out no further work up. - Continue ASA 81 mg daily, BB (this needs to be continued at discharge - was not on H+P but is supposed to be taking this) - Low suspicion for other lung etiology as patient has no s/s of pneumonia and dvt is unlikely has patient is anticoagulated, no sob, no increase in oxygen demand, and no tachycardia. In addition symptoms improving. (3) Chronic diastolic heart failure Comment: - 08/30/18 Torsemide was decreased from 40 mg daily to 20 mg daily. In additon, added Aldactone 25 mg daily given bicarb retention. - Monitoring electrolytes as Aldactone is new and have been stable - Appears euvolemic - 05/2018 - Echo shows EF 55-60% but very limited study d/t body habitus - Daily weights and Strict I & Os (4) Malaise Comment: - Resolved. (5) Atrial fibrillation Comment: - In Sinus rhythm - Continue Xarelto (6) Chronic respiratory failure Comment: - Due to Obesity hypoventilation and COPD - Chronic hypoxic and hypercarbic . on prn O2 at home - Continue PRN inhalers. 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 Plan to DC to home. Case management is looking into his current aides at this time as it appears he self hires them, he is approved for so many hours a week, several of these aides are from [facility] where the patient used to reside and are unreliable showing up for his care which then is felt he does not get appropriate wound care, exercising and increases his risk for readmission. . Attending: Temo Campos
[2018-09-01] MEDS: Metoprolol Tartrate TAB* 25 MG PO SCH (20:49)
[2018-09-01] MEDS: Acetaminophen TAB* 325 MG PO PRN (21:43)
[2018-09-02] MEDS: Polymyx/Trimethoprim OPTH* 10 ML BTL BOTH EYES SCH ×4 (00:47→10:53)
[2018-09-02] MEDS: Tiotropium CAP.INH* CAP.INH/18 MCG (USE ORDER SET !) INH SCH (07:58)
[2018-09-02] MEDS: Senna TAB PO PRN (08:54)
[2018-09-02] MEDS: Docusate CAP* 100 MG PO PRN (08:54)
[2018-09-02] MEDS: oxyCODONE/Acetamin 5/325 MG* TAB PO PRN (08:54)
[2018-09-02 09:46] VITALS: BP 134/68
[2018-09-02] MEDS: Famotidine TAB* 20 MG PO SCH (10:51)
[2018-09-02] MEDS: Aspirin EC TAB* 81 MG TAB.EC PO SCH (10:51)
[2018-09-02] MEDS: Metoprolol Tartrate TAB* 25 MG PO SCH (10:52)
[2018-09-02] MEDS: predniSONE TAB* 10 MG PO SCH (10:52)
[2018-09-02] MEDS: Rivaroxaban TAB(*) 20 MG TAB PO SCH (10:52)
[2018-09-02] MEDS: Gabapentin CAP(*) 100 MG PO SCH (10:52)
[2018-09-02] MEDS: Nystatin TOP POWDER* 15 GM BTL TOPICAL SCH (10:52)
[2018-09-02] MEDS: Spironolactone TAB* 25 MG PO SCH (10:53)
[2018-09-02] MEDS: Torsemide TAB 10 MG PO SCH (10:53)
--- NOTE | 2018-09-02 13:35 | DS ---
AMENDED REPORT NOW INCLUDES DESIGNATED COSIGNER CC: Dr. Javier Gilliland * DISCHARGE SUMMARY: DATE OF ADMISSION: 08/27/18 DATE OF DISCHARGE: 09/02/18 PRIMARY CARE PROVIDER: Dr. Javier Gilliland. ATTENDING PHYSICIAN: Dr. Temo Campos * (dictated by Demetrice Lopez NP). PRIMARY DIAGNOSES: 1. Chest pain, noncardiac. 2. Bilateral conjunctivitis. 3. Malingering. SECONDARY DIAGNOSES: 1. Chronic diastolic congestive heart failure. 2. Atrial fibrillation. 3. Chronic hypoxic and hypercarbic respiratory failure. 4. Gastroesophageal reflux disease. 5. History of pulmonary embolism. 6. Obesity hypoventilation syndrome. 7. Obstructive sleep apnea. 8. Chronic lower extremity wound and lymphedema. STUDIES WHILE IN THE HOSPITAL: 1. EKG on 08/27/18, shows normal sinus rhythm with a rate of 75, QTc of 469, inverted T waves in V1 and V2. This EKG is consistent with previous EKG on file. 2. Chest x-ray on 08/27/18, reads as cardiomegaly with pulmonary interstitial edema. 3. EKG on 08/27/18, shows normal sinus rhythm with a rate of 89, QTc 490, again noted are T wave inversions in V1 and V2. 4. Chest x-ray on 08/27/18 reads as cardiomegaly with pulmonary interstitial edema. 5. EKG on 08/27/18 shows normal sinus rhythm with a rate of 74, QTc 481, T wave inversions again noted in V1 and V2. CONSULTATIONS WHILE IN THE HOSPITAL: 1. Dr. Coon with Psychiatry on 08/30/18. 2. Carrie Potter NP, with wound care on 08/30/18. HISTORY OF PRESENT ILLNESS AND HOSPITAL COURSE: Mr. Shafer is a 62-year-old male well known to our service with a past medical history of COPD, chronic respiratory failure on 2 L as needed, obesity hypoventilation syndrome, DVT and PE, atrial fibrillation and sick sinus syndrome status post pacemaker, chronic diastolic congestive heart failure, morbid obesity and chronic lymphedema with lower extremity wound, who presented to the emergency room on 08/27/18, with complaints of left-sided chest pain. Please see the history and physical by Dr. Francisco for complete summary of the events leading up to this hospitalization. In short, the patient reported 3 days of progressive left- sided chest pain radiating to his left shoulder and jaw. He did take Nitro at home, which did relieve the pain initially although ultimately the pain continued and so he presented to the emergency room. He has had trouble with his home theater experience expert recently and has not had consistent aide care. In the emergency room, he was noted to have lab work consistent with his baseline. He had a normal EKG as noted above and vital signs were noted to be normal though because of his chest pain, he was admitted by the hospitalist service. Initially, the patient was admitted with the intentions of having a stress test although ultimately a previous provider spoke with Cardiology who recommended against a cardiac stress test as it was likely that the stress test would be abnormal and the patient would not be a good candidate for cardiac catheterization. He did have 4 negative troponins and no EKG changes. At that point, it was felt as though the patient was experiencing esophageal spasm, although he was not able to be started on verapamil due to interaction with Xarelto. The patient, at one point, did admit to one of the providers that he had fabricated symptoms in the past so that he could remain hospitalized as he does get lonely at home in his apartment. Ultimately, the patient's chest pain resolved and as of today, he has no further complaints of chest pain. His heart failure, COPD and respiratory failure have also remained stable and have showed no signs of exacerbation. The patient was noted to develop bilateral conjunctivitis while here in the hospital and was started on Cipro with little to no improvement and thereafter changed to [place]. Regarding the patient's lower extremity wounds, he was seen by Wound Care who noted that his leg actually appeared improved from his last 2 hospital stays and did make some additional wound care recommendation. The patient was seen by Psychiatry as there was question as to whether or not he had capacity and it was determined that the patient did have capacity to make his own medical decision. As of now , the patient does not have a home theater experience expert available as his previous aide is no longer available and he has not secured a new one and because of this, the patient at this point is agreeable to going to rehab as it is not safe for him to return home without aide occupational therapist assistants. The patient is reluctantly agreeable to this. He did express to me this morning that he is upset about needing to go to rehab and at this point feels as though he just wants "God to take over." He did refuse all his medications this morning. For that reason, I did talk with the patient about signing a MOLST form to be a do not resuscitate and do not intubate as it sounds as though he wants to pursue palliative care though at this point, the patient is not willing to sign a MOLST form without speaking with his family first. His intentions with refusing the medications are not clear and may ultimately represent malingering and/or manipulative behavior. Regardless, the patient reports feeling physically well and denied any physical complaints. He does report feeling depressed, but was not willing to start any antidepressants or other medications. On exam, he has no focal neurological deficits. His heart has a regular rate and rhythm without murmurs, rubs or gallops. His lungs are clear to auscultation without rhonchi, wheezes or rubs. Bilateral lower extremities are dressed with Flo wrap. Mr. Shafer is stable for discharge today. Vital signs were as follows: Temp 96.5, heart rate 62, respiratory rate 20, oxygen saturation 92% on 1 L, blood pressure 134/68. DISCHARGE MEDICATIONS: New medications: 1. Artificial Tears 1 drop both eyes q.2 hours p.r.n. dry eyes. 2. Nystatin powder 1 application topically b.i.d. 3. Polymyxin/trimethoprim 1 drop both eyes 4 times a day x2 days. 4. Prednisolone 1% 1 drop both eyes t.i.d. x2 days. 5. Spironolactone 25 mg p.o. daily. Continued medications: 1. Aspirin 81 mg p.o. daily. 2. Famotidine 20 mg p.o. b.i.d. 3. Gabapentin 100 mg p.o. b.i.d. 4. Nitro 0.4 mg sublingual q.5 minutes p.r.n. chest pain. 5. Prednisone 10 mg p.o. daily. 6. Xarelto 20 mg p.o. daily. 7. Torsemide 40 mg p.o. daily. 8. Acetaminophen 650 mg p.o. q.6 hours p.r.n. fever and pain. 9. Albuterol MDI 2 puffs q.4 hours p.r.n. shortness of breath, wheezing. 10. Albuterol/ipratropium 1 neb q.4 hours p.r.n. shortness of breath, wheezing. 11. Benadryl 25 mg p.o. q.6 hours p.r.n. allergy symptoms. 12. Hydrocodone/acetaminophen 5/325 mg 1 tab p.o. b.i.d. p.r.n. pain. 13. Metoprolol tartrate 12.5 mg p.o. b.i.d. 14. Oxycodone 5 mg p.o. q.6 hours p.r.n. pain. 15. Sennosides/docusate 1 tab p.o. b.i.d. 16. Spiriva 1 cap inhalation daily. DISCHARGE PLAN: Mr. Shafer will be discharged to subacute rehab. Activity will be as tolerated without restrictions. Diet will be diabetic, high protein , low carb. Medications are noted above. The patient has been treated with 5 days of antibiotic drops for his bilateral conjunctivitis while here in the hospital and will need to complete another 2 days. There is some question as to whether or not this conjunctivitis was in fact bacterial. This actually may represent a chemical conjunctivitis due to a leaky BiPAP mask. The patient was using hospital equipment BiPAP while here in the hospital. So, I have added prednisolone drops for 2 days to help clear up his conjunctivitis. Spironolactone has been added to his medications and he can otherwise continue his usual medications as noted above. The patient was seen by Wound Care while here in the hospital and they recommend washing legs with soap and water daily, wound dressings to be changed, apply lotion to bilateral lower extremities, apply calcium alginate to the open areas and posterior left legs, followed by roll gauze and Flo wrap. Change dressings every 2 to 3 days or p.r.n. for soiling. If the dressing stick to the open areas, moisten the dressings with normal saline to remove. Keep legs elevated in bed. As I noted above, the patient has expressed that he no longer wants to take his medications, and I think he would certainly benefit from a hospice or palliative care consult. He was not willing to fill out a MOLST form at this point though this should be readdressed in the near future as if he remains off his medications he is at very high risk for life-threatening complications including respiratory failure , respiratory arrest, or cardiac arrest. He will need to follow up with a provider at [place] and should follow up with is primary care provider once he returns home. He should return to the emergency room or nearest hospital for any worsening of symptoms, shortness of breath, lightheadedness, dizziness, chest discomfort, high fever, chills, night sweats, loss of consciousness, or any other worrisome signs or symptoms. DISCHARGE CONDITION: Stable. DISCHARGE DISPOSITION: [facility], [place]. This is a summarized report of a complex medical history and hospital stay. For further details, please see the entire medical record. TIME SPENT: Approximately 60 minutes was spent on this discharge. DEMETRICE LOPEZ, TARA [id number]/[facility] #: [id number] KIET
== END 2018-09-02 13:10 | DRG 198 ==
LOC: ED 00:24 → MEDTELE 03:51
PROVIDERS: ADMIT Internal Medicine; ATTEND Internal Medicine
PROC: 5A09357 Assistance with Respiratory Ventilation, Less than 24 Consecutive Hours, Continuous Positive Airway Pressure (ICD-10-PCS; principal; 2018-08-27)
DX: R07.89 Other chest pain (principal); E66.2 Morbid (severe) obesity with alveolar hypoventilation; Z68.43 Body mass index [BMI] 50.0-59.9, adult; I13.0 Hypertensive heart and chronic kidney disease with heart failure and stage 1 through stage 4 chronic kidney disease, or unspecified chronic kidney disease; I50.32 Chronic diastolic (congestive) heart failure; J96.11 Chronic respiratory failure with hypoxia; J96.12 Chronic respiratory failure with hypercapnia; E78.00 Pure hypercholesterolemia, unspecified; K22.4 Dyskinesia of esophagus; I25.10 Atherosclerotic heart disease of native coronary artery without angina pectoris; E11.51 Type 2 diabetes mellitus with diabetic peripheral angiopathy without gangrene; I49.5 Sick sinus syndrome; J44.9 Chronic obstructive pulmonary disease, unspecified; N18.9 Chronic kidney disease, unspecified; E11.22 Type 2 diabetes mellitus with diabetic chronic kidney disease; F32.9 Major depressive disorder, single episode, unspecified; M19.90 Unspecified osteoarthritis, unspecified site; E11.42 Type 2 diabetes mellitus with diabetic polyneuropathy; I89.0 Lymphedema, not elsewhere classified; S80.922A Unspecified superficial injury of left lower leg, initial encounter; S80.921A Unspecified superficial injury of right lower leg, initial encounter; I87.8 Other specified disorders of veins; B95.62 Methicillin resistant Staphylococcus aureus infection as the cause of diseases classified elsewhere; G89.29 Other chronic pain; I48.91 Unspecified atrial fibrillation; K59.00 Constipation, unspecified; H10.9 Unspecified conjunctivitis; K21.9 Gastro-esophageal reflux disease without esophagitis; R53.81 Other malaise; Z89.432 Acquired absence of left foot; Z88.1 Allergy status to other antibiotic agents; Z91.030 Bee allergy status; Z91.018 Allergy to other foods; Z86.718 Personal history of other venous thrombosis and embolism; Z86.711 Personal history of pulmonary embolism; Z89.431 Acquired absence of right foot; Z87.442 Personal history of urinary calculi; Z95.0 Presence of cardiac pacemaker; Z83.3 Family history of diabetes mellitus; Z86.14 Personal history of Methicillin resistant Staphylococcus aureus infection; Z80.1 Family history of malignant neoplasm of trachea, bronchus and lung; Z82.0 Family history of epilepsy and other diseases of the nervous system; Z76.5 Malingerer [conscious simulation]; Z79.82 Long term (current) use of aspirin; Z79.01 Long term (current) use of anticoagulants
CPT/HCPCS: 36415; 71045; 80048; 80053; 80202; 81003; 81015; 83605; 83735; 83880; 84484; 85025; 85027; 85610; 85730; 87040; 87070; 87077; 87086; 87184; 87186; 87205; 87640; 87641; 93005; 94640; 94660; 99285; A9270-GY; G8978-GP-CL; G8979-GP-CI; J0692; J2270; J2405; J3370; J7512

== ENCOUNTER 2019-01-03 21:11 | Emergency (ER) | payer MEDICAID ==
[2019-01-03] MEDS ORDERED: Ketorolac INJ* 15 MG/ML 1 ML VIAL IV ONE (21:23)
[2019-01-03] MEDS ORDERED: Ondansetron INJ* 2 MG/ML VIAL IV ONE (21:23)
[2019-01-03] MEDS ORDERED: NS 0.9% 1000 ML** 1,000 ML IV ONE (21:23)
--- NOTE | 2019-01-03 21:59 | ED ---
GI/ HPI - HPI Summary HPI Summary: Patient is a 63 y/o M w/ Hx of kidney stones who presents to [facility] with complaints of left flank pain. He characterizes pain as sharp, rates it 9/10, and notes that it is similar to the pain he had during his previous kidney stone two years ago. Patient reports that he was evaluated at [facility] for his previous kidney stone. He states that it was 1.5 inches and had "hooks". Patient reports that he was transferred to [place] and had stent placed. He states that he had multiple complications with management of this kidney stone and needed to go to OR 4 times in total. Patient reports that this episode's pain onset around a week ago and has worsened over the past few days. He endorses Hx of UTI as well but denies abdominal pain, fever, N/V, dysuria, and increased frequency of urination. No radiation of pain is noted. He states that his urine has been concentrated but states that he is not "a big water drinker" . He is on a diuretic and notes Hx of chronic leg pain, venous insufficiency. Patient states that he took Hydrocodone 4 hours ago with no relief in Sx. Vitals are pulse 76, o2 94, BP 125/61. Home medications and allergies are reviewed. - History of Current Complaint Chief Complaint: EDFlankPain Time Seen by Provider: 01/03/19 21:23 Stated Complaint: LEFT FLANK PAIN PER EMS Hx Obtained From: Patient Onset/Duration: Started Weeks Ago, Still Present, Worse Since Timing: Constant, Lasting Weeks Severity: Severe Current Severity: Severe Pain Intensity: 9 Location of Pain: Flank - left Pain Characteristics: Sharp Associated Signs and Symptoms: Positive: Flank Pain - left, Other: - negative - increased frequency of urination. Negative: Nausea, Vomiting, Fever, Dysuria, Abdominal Pain - Additional Pertinent History Primary Care Physician: DIPESH - Allergy/Home Medications Allergies/Adverse Reactions: Allergies Allergy/AdvReac Type Severity Reaction Status Date / Time clindamycin Allergy Intermediate Pruritus, Verified 05/09/18 10:29 Flushing of Skin bee venom protein (honey bee) Allergy Anaphylatic Verified 05/09/18 10:29 Shock walnut Allergy Anaphylatic Verified 05/09/18 10:29 Shock Home Medications: Home Medications Metoprolol Succinate XL TAB* [Toprol XL TAB*] 12.5 mg PO BID 01/03/19 [History Confirmed 01/03/19] Tiotropium CAP.INH (NF) [Spiriva CAP.INH*] 1 cap INH DAILY PRN 01/03/19 [ History Confirmed 01/03/19] PMH/Surg Hx/FS Hx/Imm Hx Endocrine/Hematology History: Reports: Hx Anticoagulant Therapy - xarelto, Hx Diabetes, Hx Anemia, Other Endocrine/Hematological Disorders - hypoglycemia Denies: Hx Systemic Lupus Erythematosus Cardiovascular History: Reports: Hx Congestive Heart Failure, Hx Coronary Artery Disease, Hx Deep Vein Thrombosis, Hx Embolism - pulmonary embolism, takes xarelto, Hx Hypercholesterolemia, Hx Hypertension, Hx Pacemaker/ICD, Hx Peripheral Vascular Disease - SSS, Hx Syncope, Other Cardiovascular Problems/ Disorders - cardiac cath Respiratory History: Reports: Hx Chronic Obstructive Pulmonary Disease (COPD) - on 2L home O2, trilogy at night, Hx Pneumonia, Hx Pulmonary Embolism, Hx Seasonal Allergies, Hx Sleep Apnea, Other Respiratory Problems/Disorders - SLEEP APNEA, ON 2 L O2 @ NIGHT, obesity hypoventilation Denies: Hx Asthma, Hx Bronchopulmonary Dysplasia, Hx Chronic Bronchitis, Hx Cystic Fibrosis, Hx Lung Cancer, Hx Pleural Effusion, Hx Pulmonary Edema GI History: Reports: Hx Gastrointestinal Bleed, Hx Hiatal Hernia, Other GI Disorders - umbilical hernia, stool softener at home, constipation Denies: Hx Cirrhosis, Hx Crohn's Disease, Hx Diverticulosis, Hx Gall Bladder Disease, Hx Gastroesophageal Reflux Disease, Hx Irritable Bowel, Hx Jaundice, Hx Obstructive Bowel, Hx Ileostomy, Hx Pyloric Stenosis, Hx Ulcer History: Reports: Hx Acute Renal Failure, Hx Chronic Renal Failure, Hx Kidney Stones, Hx Renal Disease - 3 episodes of renal failure Denies: Hx Benign Prostatic Hyperplasia, Hx Dialysis, Hx Kidney Infection, Other Problems/Disorders Musculoskeletal History: Reports: Hx Arthritis, Hx Back Problems, Other Musculoskeletal History - bilateral metatarsal amputation Denies: Hx Rheumatoid Arthritis, Hx Bursitis, Hx Congenital Bone Abnormalities Sensory History: Reports: Other Sensory Impairments - Neuropathy in feet Denies: Hx Contacts or Glasses, Hx Deafness, Hx Hearing Aid Opthamlomology History: Reports: Other Sensory Impairments - Neuropathy in feet Denies: Hx Contacts or Glasses Neurological History: Reports: Hx Headaches, Other Neuro Impairments/Disorders - frequent syncope, pt states possible stroke in past Psychiatric History: Reports: Hx Depression Denies: Hx of Violent Episodes Against Others - Cancer History Hx Chemotherapy: No - Surgical History Surgery Procedure, Year, and Place: Bilateral metatarsal amputations. Pacemaker. Surgical ureterolith extraction Hx Anesthesia Reactions: No - Immunization History Date of Tetanus Vaccine: PT STATES UNSURE Date of Influenza Vaccine: NONE Immunizations Up to Date: Yes Infectious Disease History: No Infectious Disease History: Reports: Hx of Known/Suspected MRSA Denies: Traveled Outside the [place] in Last 30 Days - Family History Known Family History: Positive: Diabetes Negative: Other - denies FHx of depression - Social History Alcohol Use: None Hx Substance Use: Yes - Narcotics Substance Use Type: Reports: None Substance Use Comment - Amount & Last Used: chronic narcotic use Hx Tobacco Use: No Smoking Status (MU): Never Smoked Tobacco Have You Smoked in the Last Year: No Review of Systems Negative: Fever Negative: Abdominal Pain, Vomiting, Nausea Genitourinary: Other - concentrated urine Positive: flank pain - left. Negative: dysuria, frequency - of urination All Other Systems Reviewed And Are Negative: Yes Physical Exam - Summary Physical Exam Summary: General: Well-developed, Morbidly obese male. Mild pain distress. HEENT: Normocephalic, Atraumatic. Eyes: Conjuctiva normal, PERRL. Ears: TMs within normal limits. Nares: (-) discharge, (-) erythema. Oropharynx: Clear, mucous membranes moist, (-) exudates. Neck: Soft, FROM, (-) lymphadenopathy, (-) thyromegaly, (-) JVD. Cardiovascular: Normal sinus rhythm, (-) murmur. Lungs: Clear to auscultation bilaterally (-) wheezes, (-) rales, (-) rhonchi. Abdomen: Soft, non-tender, non-distended, (-) organomegaly, normal bowel sounds. Back: (+) Left CVA tenderness Extremities: BLE erythema and edema with chronic stasis changes. Skin: Warm, dry, (-) rash. Neuro: Alert and oriented x3, no focal deficits. Psychiatric: Mood normal, affect normal. Triage Information Reviewed: Yes Vital Signs On Initial Exam: Initial Vitals Temp Pulse Resp BP Pulse Ox 97.9 F 77 22 125/61 94 01/03/19 21:16 01/03/19 21:16 01/03/19 21:16 01/03/19 21:16 01/03/19 21:16 Vital Signs Reviewed: Yes Procedures - Sedation Patient Received Moderate/Deep Sedation with Procedure: No Diagnostics - Vital Signs Vital Signs Temp Pulse Resp BP Pulse Ox 01/03/19 21:16 97.9 F 77 22 125/61 94 - Laboratory Result Diagrams: 01/03/19 22:06 01/03/19 22:06 Lab Statement: Any lab studies that have been ordered have been reviewed, and results considered in the medical decision making process. - CT ABD/PEL CT Interpretation Completed By: Radiologist Summary of CT Findings: IMPRESSION: 1. Stable cholelithiasis without pericholecystic inflammatory change. 2. Stable nonobstructive left nephrolithiasis. 3. Stable colonic diverticulosis without evidence for acute diverticulitis. These findings were reviewed by Dr. Smalls. GIGU Course/Dx - Course Course Of Treatment: 63-year-old male with bilateral flank pain, history of kidney stones. Patient received Toradol and Zofran. IV fluids. Workup essentially negative. Patient discharged to home. Advised ice or heat to the areas. Plenty of fluids. Tylenol or ibuprofen. Follow up with PCP. Follow- up sooner for any worsening symptoms. - Diagnoses Provider Diagnoses: Flank pain Discharge ED - Sign-Out/Discharge Documenting (check all that apply): Patient Departure - discharge - Discharge Plan Condition: Stable Disposition: HOME Patient Education Materials: Flank Pain (ED) Referrals: Javier Gilliland MD [Primary Care Provider] - 3 Days Additional Instructions: Follow up with your primary care provider within 3 days. Return to the ED for any new or worsening symptoms. - Billing Disposition and Condition Condition: STABLE Disposition: Home - Attestation Statements Document Initiated by Arnolibe: Yes Documenting Scribe: Jarret Landaverde Provider For Whom Dione is Documenting (Include Credential): Dr. Jocelyn Smalls MD Scribe Attestation: Jarret Murphy scribed for Dr. Jocelyn Smalls MD on 01/04/19 at 0438. Scribe Documentation Reviewed: Yes Provider Attestation: The documentation as recorded by the dione, Jarret Landaverde accurately reflects the service I personally performed and the decisions made by me, Dr. Jocelyn Smalls MD Status of Scribe Document: Viewed
[2019-01-03 22:14] LABS: ABS Basophils 0.1 10^3/ul (0-0.2); ABS Eosinophils 0.1 10^3/ul (0-0.6); ABS Lymphocytes 1.3 10^3/ul (1.0-4.8); ABS Monocytes 0.6 10^3/ul (0-0.8); ABS Neutrophils 3.3 10^3/ul (1.5-7.7); Eosinophil % 1.6 %; Hematocrit 44 % (42-52); Hemoglobin 14.3 g/dL (14.0-18.0); Lymphocyte % 23.7 %; Mean Corpuscular HGB Conc 33 g/dL (31-36); Mean Corpuscular Hemoglobin 29 pg (27-31); Mean Corpuscular Volume 89 fL (80-94); Mean Platelet Volume 10.1 fL (7.4-10.4); Nucleated Red Blood Cells % 0.1; Platelet Count 164 10^3/uL (150-450); Red Blood Count 4.89 10^6 /uL (4.18-5.48); Red Cell Distribution Width 15 % (10-15); White Blood Count 5.3 10^3/uL (3.5-10.8)
[2019-01-03 22:19] LABS: INR 1.07 (0.82-1.09)
--- OUTSIDE RECORDS SUMMARY | 2019-01-03 22:25 | XMS REPORT | Continuity of Care Document ---
:1955 Author Organization [facility] Allergies and Intolerances No Known Allergies Medications RxNorm Medication Dose Route Instructions Start End Status Date Date Acetaminophen 325 1 tab oral orally every Active MG / Hydrocodone day at bedtime Bitartrate 5 MG Oral Tablet Acetaminophen 325 1 tab oral orally 2 times Active MG / Hydrocodone per day as Bitartrate 5 MG needed. Oral Tablet 19830617 Acetaminophen 650 650 mg oral orally every 6 Active MG Oral Tablet hours as needed. 2299394 Albuterol 0.833 3 mL inhalation inhaled every 4 Active MG/ML / hours as Ipratropium needed. (until [place] 0.167 response) MG/ML Inhalation Solution 1191 Aspirin 81 mg oral orally every Active morning 956397 Docusate Sodium 50 1 tab oral orally 2 times Active MG / sennosides, per day CARE HOME 8.6 MG Oral Tablet 4278 Famotidine 20 mg oral orally 2 times Active per day 49319 gabapentin 100 mg oral orally 2 times Active per day 6918 Metoprolol 12.5 mg oral orally 2 times Active per day 034148 Nitroglycerin 0.4 0.4 mg sublingual sublingually Active MG Sublingual every 5 minutes Tablet as needed. (until response; do not exceed 3 doses per episode) 043212 Nystatin 100 1 applic topical topically 2 Active UNT/MG Topical times per day Powder 7804 Oxycodone 5 mg oral orally every 6 Active hours as needed. 226322 Polymyxin B 42436 1 drp ophthalmic into the eye(s) Active UNT/ML / (eye) 4 times per day Trimethoprim 1 MG/ML Ophthalmic Solution 8638 prednisolone 1 drp ophthalmic into the eye(s) Active (eye) 3 times per day (both eyes) 548654 Prednisone 20 MG 20 mg oral orally every Active Oral Tablet morning 2982243 rivaroxaban 20 MG 20 mg oral orally every Active Oral Tablet morning 225720 Spironolactone 25 25 mg oral orally daily Active MG Oral Tablet 461825 tiotropium 0.018 1 cap inhalation inhaled every Active MG Inhalation morning Powder (puncture 1 cap using device; one dose = 2 inhalations) 85394 torsemide 40 mg oral orally every Active evening Medications At Time Of Discharge RxNorm Medication Dose Route Instructions Start End Status Date Date Acetaminophen 325 1 tab oral orally every Active MG / Hydrocodone day at bedtime Bitartrate 5 MG Oral Tablet Acetaminophen 325 1 tab oral orally 2 times Active MG / Hydrocodone per day as Bitartrate 5 MG needed. Oral Tablet 19830617 Acetaminophen 650 650 mg oral orally every 6 Active MG Oral Tablet hours as needed. 5757357 Albuterol 0.833 3 mL inhalation inhaled every 4 Active MG/ML / hours as Ipratropium needed. (until [place] 0.167 response) MG/ML Inhalation Solution 119 Aspirin 81 mg oral orally every Active morning 448448 Docusate Sodium 50 1 tab oral orally 2 times Active MG / sennosides, per day CARE HOME 8.6 MG Oral Tablet 4278 Famotidine 20 mg oral orally 2 times Active per day 77213 gabapentin 100 mg oral orally 2 times Active per day 6918 Metoprolol 12.5 mg oral orally 2 times Active per day 497907 Nitroglycerin 0.4 0.4 mg sublingual sublingually Active MG Sublingual every 5 minutes Tablet as needed. (until response; do not exceed 3 doses per episode) 074432 Nystatin 100 1 applic topical topically 2 Active UNT/MG Topical times per day Powder 7804 Oxycodone 5 mg oral orally every 6 Active hours as needed. 984895 Polymyxin B 67082 1 drp ophthalmic into the eye(s) Active UNT/ML / (eye) 4 times per day Trimethoprim 1 MG/ML Ophthalmic Solution 8638 prednisolone 1 drp ophthalmic into the eye(s) Active (eye) 3 times per day (both eyes) 753851 Prednisone 20 MG 20 mg oral orally every Active Oral Tablet morning 7354916 rivaroxaban 20 MG 20 mg oral orally every Active Oral Tablet morning 636888 Spironolactone 25 25 mg oral orally daily Active MG Oral Tablet 407823 tiotropium 0.018 1 cap inhalation inhaled every Active MG Inhalation morning Powder (puncture 1 cap using device; one dose = 2 inhalations) 53920 torsemide 40 mg oral orally every Active evening Problems No Data in the system Procedures No data in the system Results Laboratory Results Order: CBC Specimen Source: Body Site: Legend: (G,H) = High, (GG,HH,CH,#H) = Above High Threshold, (#,L) = Low, (##,CL, #L,LL) = Below Low Threshold, (C,CC,CA,#A,A) = Abnormal LOINC Test Result Flag Range Units Date 6690-2 1WBC # Bld Auto 8.6 4.8-10.8 K/uL 10/26/2018 07:55 27950-4 1RBC # Bld 5.33 4.60-6.20 M/uL 10/26/2018 07:55 718-7 1Hgb Bld-mCnc 15.2 13.5-18.0 gm/dL 10/26/2018 07:55 4544-3 1Hct VFr Bld Auto 48.4 41.0-53.0 % 10/26/2018 07:55 787-2 1MCV RBC Auto 90.8 80.0-100.0 fL 10/26/2018 07:55 99331-8 1MCHC RBC-mCnc 31.4 30.0-36.5 % 10/26/2018 07:55 90018-5 1MCH RBC Qn 28.5 27.0-34.0 pg 10/26/2018 07:55 06612-1 1RDW RBC 14.4 11.0-15.0 % 10/26/2018 07:55 777-3 1Platelet # Bld Auto 150 130-450 K/uL 10/26/2018 07:55 08802-1 1PMV Bld Auto 10.6 6.0-12.0 fL 10/26/2018 07:55 Performing Lab Footnotes:[facility] - [id number] - [address] [place] [address] DAVID DOMINGUEZ Order: COMPREHENSIVE PANEL Specimen Source: Body Site: Legend: (G,H) = High, (GG,HH,CH,#H) = Above High Threshold, (#,L) = Low, (##,CL,#L,LL) = Below Low Threshold, (C,CC,CA,#A,A) = Abnormal LOINC Test Result Flag Range Units Date 2951-2 1Sodium SerPl-sCnc 139 136-145 mmol/L 10/26/2018 07:55 2823-3 1Potassium SerPl-sCnc 3.8 3.5-5.2 mmol/L 10/26/2018 07:55 2075-0 1Chloride SerPl-sCnc 93 L 100-108 mmol/L 10/26/2018 07:55 8-9 1CO2 SerPl-sCnc 37 H 21-32 mmol/L 10/26/2018 07:55 2345-7 1Glucose SerPl-mCnc 116 H 70-100 mg/dL 10/26/2018 07:55 3094-0 1BUN SerPl-mCnc 22 H 7-21 mg/dL 10/26/2018 07:55 2160-0 1Creat SerPl-mCnc 1.0 0.6-1.3 mg/dL 10/26/2018 07:55 Interpretive Taylor: 1Normal Kidney Function or Mild Disease - GFR >OR= 60 Chronic Kidney Disease - GFR 15-59 Renal Failure - GFR < 15 GFR not calculated on patients under 18 years of age. Calculated (estimated) GFR is based on the MDRD Study equation, which assumes a steady state for creatinine. Estimated GFR may not be appropriate for medication dosing. 26953-5 1Ca-I SerPl-mCnc 9.2 8.5-10.8 mg/dL 10/26/2018 07:55 60953-9 1GFR/BSA.pred SerPl-ArVRat >60 10/26/2018 07:55 16661-8 1Bilirub Bld-mCnc 1.1 0.0-1.2 mg/dL 10/26/2018 07:55 2885-2 1Prot SerPl-mCnc 7.5 6.4-8.2 gm/dL 10/26/2018 07:55 1751-7 1Albumin SerPl-mCnc 4.0 3.2-4.6 gm/dL 10/26/2018 07:55 6768-6 1ALP SerPl-cCnc 37 L 40-150 U/L 10/26/2018 07:55 1742-6 1ALT SerPl-cCnc 10 0-55 U/L 10/26/2018 07:55 1920-8 1AST SerPl-cCnc 13 5-37 U/L 10/26/2018 07:55 Performing Lab Footnotes:[facility] - [id number] - [address] [place] [address] DAVID COOPEROMD1 Order: PREALBUMIN Specimen Source: Body Site: Legend: (G,H) = High, (GG ,HH,CH,#H) = Above High Threshold, (#,L) = Low, (##,CL,#L,LL) = Below Low Threshold, (C,CC,CA,#A,A) = Abnormal LOINC Test Result Flag Range Units Date 15976-6 1Prealb SerPl-mCnc 26.0 18.0-36.0 mg/dL 10/26/2018 07:55 Performing Lab Footnotes:[facility] - [id number] - [address] [place] [address] DAVID Tay MARCELAHARJINDEROMD1 Social History Code Code System Social History Description Dates Observed Observation [id number] SNOMED CT Current Smoking Unknown if ever Status smoked UNK AdministrativeGender Sex Assigned At Unknown Vital Signs No data in the system Goals Section No data in the system Health Concerns No data in the systemEncounter Diagnosis Date Code Code System Diagnosis Status I50.9 ICD10 HEART FAILURE UNSPECIFIED Active Advance Directives *RHIO - CONSENT IS YES Directive Type Effective Date Reflow Operator Notes Supporting Document Name Address Phone No Directive Type 09/11/2018 2:07:11 Not Specified Not Specified Not Specified None No specified [facility] Directive Type Effective Date Reflow Operator Notes Supporting Document Name Address Phone No Directive 09/11/2018 Not Specified Not Specified Not Specified J Luis Khan- No Type specified 12:58:00 PM [phone] Encounters Encounter Diagnosis Location Date HEART FAILURE UNSPECIFIED [facility] 10/26/2018 Family History Family history not obtained Functional Status No data in the system Immunizations No data in the system Medical Equipment No data in the system Mental Status No data in the system Assessment and Plan Assessments No data in the systemPlan Of Treatment No data in the systemPending Tests No data in the system Hospital Discharge Instructions No data in the system Reason for Visit No data in the system
[2019-01-03 22:30] LABS: Albumin 3.7 g/dL (3.2-5.2); BUN/Creatinine Ratio 17.2 (8-20); Calcium 10.3 mg/dL (8.6-10.3); EGFR African American 92.4 (>60); EGFR Non-African American 76.3 (>60); Globulin 3.7 g/dL (2-4); Potassium 3.6 mmol/L (3.5-5.0); Total Protein 7.4 g/dL (6.4-8.9)
[2019-01-04 00:27] LABS: Urine Appearance Cloudy; Urine Bacteria Absent (Absent); Urine Bilirubin Negative (Negative); Urine Blood 3+ (Negative); Urine Color Yellow; Urine Glucose Negative (Negative); Urine Ketones Negative (Negative); Urine Nitrite Negative (Negative); Urine Protein Negative (Negative); Urine Red Blood Cell 3+(>10/hpf) (Absent); Urine Specific Gravity 1.016 (1.010-1.030); Urine Squamous Epithelial Cell Present (Absent); Urine Urobilinogen Negative (Negative); Urine White Blood Cell 3+(>20/hpf) (Absent)
[2019-01-04] MEDS ORDERED: Albuterol HFA INHALER* 8 gm MDI INH PRN (03:02)
[2019-01-04] MEDS ORDERED: TIOTROPIUM INH PRN (03:02)
[2019-01-04] MEDS ORDERED: HYDROcodone/ACETAMIN 5-325 MG* 1 TAB PO PRN (03:02)
[2019-01-04] MEDS ORDERED: Albuterol/Ipratropium NEB.SOL* Albuterol 2.5 MG/Ipratropium 0.5 MG 3 ML INH PRN (03:02)
[2019-01-04] MEDS ORDERED: Senna TAB 8.6 mg* TAB PO PRN (03:02)
[2019-01-04] MEDS ORDERED: Nitroglycerin TAB 0.4 MG* 0.4 MG TAB SL PRN (03:02)
[2019-01-04] MEDS ORDERED: Acetaminophen TAB* 325 MG PO PRN (03:02)
[2019-01-04] MEDS ORDERED: oxyCODONE TAB* 5 MG TAB PO PRN (03:02)
[2019-01-04] MEDS ORDERED: diPHENhydraMINE PO* 25 MG PO PRN (03:02)
[2019-01-04 04:09] VITALS: BP 107/61
[2019-01-04] MEDS ORDERED: Docusate CAP* 100 MG PO PRN (04:15)
[2019-01-04] MEDS ORDERED: Metoprolol Succinate XL TAB* 25 MG PO SCH (09:00)
[2019-01-04] MEDS ORDERED: Aspirin EC TAB* 81 MG TAB.EC PO SCH (09:00)
[2019-01-04] MEDS ORDERED: Spironolactone TAB* 25 MG PO SCH (09:00)
[2019-01-04] MEDS ORDERED: Rivaroxaban TAB(*) 20 MG TAB PO SCH (09:00)
[2019-01-04] MEDS ORDERED: Torsemide TAB* 20 MG PO SCH (09:00)
[2019-01-04] MEDS ORDERED: Gabapentin CAP(*) 100 MG PO SCH (09:00)
--- NOTE | 2019-01-06 08:35 | ED ---
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
== END 2019-01-04 04:07 | disposition home or self-care (01) ==
LOC: ED 21:11
DX: R10.32 Left lower quadrant pain (principal); K80.20 Calculus of gallbladder without cholecystitis without obstruction; N20.0 Calculus of kidney; K57.30 Diverticulosis of large intestine without perforation or abscess without bleeding; E78.00 Pure hypercholesterolemia, unspecified; J44.9 Chronic obstructive pulmonary disease, unspecified; E11.22 Type 2 diabetes mellitus with diabetic chronic kidney disease; I13.0 Hypertensive heart and chronic kidney disease with heart failure and stage 1 through stage 4 chronic kidney disease, or unspecified chronic kidney disease; N18.9 Chronic kidney disease, unspecified; I50.9 Heart failure, unspecified; I25.10 Atherosclerotic heart disease of native coronary artery without angina pectoris; D63.1 Anemia in chronic kidney disease; F32.9 Major depressive disorder, single episode, unspecified; Z86.718 Personal history of other venous thrombosis and embolism; Z89.432 Acquired absence of left foot; Z89.431 Acquired absence of right foot; Z86.711 Personal history of pulmonary embolism; Z99.81 Dependence on supplemental oxygen; Z88.1 Allergy status to other antibiotic agents; Z79.01 Long term (current) use of anticoagulants; Z79.82 Long term (current) use of aspirin; Z79.899 Other long term (current) drug therapy
CPT/HCPCS: 36415; 74176; 80053; 81003; 81015; 83605; 85025; 85610; 87077; 87086; 87186; 99283; J1885; J2405

== ENCOUNTER 2019-01-30 18:09 | Observation (INO) | payer MEDICAID ==
--- NOTE | 2019-01-30 19:30 | ED ---
HPI Chest Pain - HPI Summary HPI Summary: Pt is a 63 y/o M presenting to the ED with a chief complaint of chest pain initially onset around 1500 today described as a pressure or a deep bruise. The feeling spread to his L shoulder and upper L arm. It was accompanied by diaphoretic hands and shortness of breath. He also notes pain similar to when he had his kidney stones. 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 States he missed his medications since Wed when they ran out. - History of Current Complaint Chief Complaint: EDChestPainROMI Time Seen by Provider: 01/30/19 18:24 Hx Obtained From: Patient Onset/Duration: Started Hours Ago, Still Present Timing: Constant, Lasting Hours Initial Severity: Moderate Current Severity: Moderate Pain Intensity: 6 Pain Scale Used: 0-10 Numeric Chest Pain Location: Left Anterior Chest Pain Radiates: Yes Chest Pain Radiates To:: Shoulder, Arm Character: Pressure/Squeezing Aggravating Factor(s): Nothing Alleviating Factor(s): Nothing Associated Signs and Symptoms: Positive: Chest Pain, Shortness of Breath, Diaphoresis - on hands - Additional Pertinent History Primary Care Physician: DIPESH - Allergy/Home Medications Allergies/Adverse Reactions: Allergies Allergy/AdvReac Type Severity Reaction Status Date / Time clindamycin Allergy Intermediate Pruritus, Verified 05/09/18 10:29 Flushing of Skin bee venom protein (honey bee) Allergy Anaphylatic Verified 05/09/18 10:29 Shock walnut Allergy Anaphylatic Verified 05/09/18 10:29 Shock Home Medications: Home Medications Docusate CAP* [Colace Cap*] 200 mg PO DAILY PRN 01/30/19 [History Confirmed ] Potassium Chlor TAB* [Klor Con ER TAB*] 20 meq PO DAILY 01/30/19 [History Confirmed 01/30/19] PMH/Surg Hx/FS Hx/Imm Hx Previously Healthy: No Endocrine/Hematology History: Reports: Hx Anticoagulant Therapy - xarelto, Hx Diabetes, Hx Anemia, Other Endocrine/Hematological Disorders - hypoglycemia Denies: Hx Systemic Lupus Erythematosus Cardiovascular History: Reports: Hx Congestive Heart Failure, Hx Coronary Artery Disease, Hx Deep Vein Thrombosis, Hx Embolism - pulmonary embolism, takes xarelto, Hx Hypercholesterolemia, Hx Hypertension, Hx Pacemaker/ICD, Hx Peripheral Vascular Disease - SSS, Hx Syncope, Other Cardiovascular Problems/ Disorders - cardiac cath Respiratory History: Reports: Hx Chronic Obstructive Pulmonary Disease (COPD) - on 2L home O2, trilogy at night, Hx Pneumonia, Hx Pulmonary Embolism, Hx Seasonal Allergies, Hx Sleep Apnea, Other Respiratory Problems/Disorders - SLEEP APNEA, ON 2 L O2 @ NIGHT, obesity hypoventilation Denies: Hx Asthma, Hx Bronchopulmonary Dysplasia, Hx Chronic Bronchitis, Hx Cystic Fibrosis, Hx Lung Cancer, Hx Pleural Effusion, Hx Pulmonary Edema GI History: Reports: Hx Gastrointestinal Bleed, Hx Hiatal Hernia, Other GI Disorders - umbilical hernia, stool softener at home, constipation Denies: Hx Cirrhosis, Hx Crohn's Disease, Hx Diverticulosis, Hx Gall Bladder Disease, Hx Gastroesophageal Reflux Disease, Hx Irritable Bowel, Hx Jaundice, Hx Obstructive Bowel, Hx Ileostomy, Hx Pyloric Stenosis, Hx Ulcer History: Reports: Hx Acute Renal Failure, Hx Chronic Renal Failure, Hx Kidney Stones, Hx Renal Disease - 3 episodes of renal failure Denies: Hx Benign Prostatic Hyperplasia, Hx Dialysis, Hx Kidney Infection, Other Problems/Disorders Musculoskeletal History: Reports: Hx Arthritis, Hx Back Problems, Other Musculoskeletal History - bilateral metatarsal amputation Denies: Hx Rheumatoid Arthritis, Hx Bursitis, Hx Congenital Bone Abnormalities Sensory History: Reports: Other Sensory Impairments - Neuropathy in feet Denies: Hx Contacts or Glasses, Hx Deafness, Hx Hearing Aid Opthamlomology History: Reports: Other Sensory Impairments - Neuropathy in feet Denies: Hx Contacts or Glasses Neurological History: Reports: Hx Headaches, Other Neuro Impairments/Disorders - frequent syncope, pt states possible stroke in past Psychiatric History: Reports: Hx Depression Denies: Hx of Violent Episodes Against Others - Cancer History Hx Chemotherapy: No - Surgical History Surgery Procedure, Year, and Place: Bilateral metatarsal amputations. Pacemaker. Surgical ureterolith extraction Hx Anesthesia Reactions: No - Immunization History Date of Tetanus Vaccine: PT STATES UNSURE Date of Influenza Vaccine: NONE Infectious Disease History: Yes Infectious Disease History: Reports: Hx of Known/Suspected MRSA Denies: Traveled Outside the [place] in Last 30 Days - Family History Known Family History: Positive: Diabetes Negative: Other - denies FHx of depression - Social History Alcohol Use: None Hx Substance Use: Yes - Narcotics Substance Use Type: Reports: Prescribed Substance Use Comment - Amount & Last Used: chronic narcotic use Hx Tobacco Use: No Smoking Status (MU): Never Smoked Tobacco Have You Smoked in the Last Year: No Review of Systems Positive: Skin Diaphoresis Positive: Chest Pain Positive: Shortness Of Breath Positive: Myalgia All Other Systems Reviewed And Are Negative: Yes Physical Exam - Summary Physical Exam Summary: Constitutional: Morbidly obese, Alert. (-) Distressed Skin: Warm, Dry HENT: Normocephalic; Atraumatic Eyes: Conjunctiva normal Neck: Musculoskeletal ROM normal neck. (-) JVD, (-) Stridor, (-) Nuchal rigidity Cardio: Rhythm regular, rate normal, Heart sounds normal; Intact distal pulses; Radial pulses are 2+ and symmetric. (-) Murmur Pulmonary/Chest wall: Pacemaker to L chest wall. Effort normal. (-) Respiratory distress, (-) Wheezes, (-) Rales Abd: Soft, (-) tenderness, (-) Distension, (-) Guarding, (-) Rebound Musculoskeletal: (-) Edema. Bilateral LE are in dressings. Lymph: (-) Cervical adenopathy Neuro: Alert, Oriented x3 Psych: Mood and affect Normal Triage Information Reviewed: Yes Vital Signs On Initial Exam: Initial Vitals Temp Pulse Resp BP Pulse Ox 97 F 70 14 123/72 95 01/30/19 18:18 01/30/19 18:18 01/30/19 18:18 01/30/19 18:18 01/30/19 18:18 Vital Signs Reviewed: Yes Procedures - Sedation Patient Received Moderate/Deep Sedation with Procedure: No Diagnostics - Vital Signs Vital Signs Temp Pulse Resp BP Pulse Ox 01/30/19 19:00 72 15 92 01/30/19 18:57 70 19 121/70 93 01/30/19 18:56 69 15 94 01/30/19 18:27 76 18 123/72 93 01/30/19 18:18 97 F 70 14 123/72 95 - Laboratory Result Diagrams: 01/30/19 20:06 01/30/19 20:07 Lab Statement: Any lab studies that have been ordered have been reviewed, and results considered in the medical decision making process. - Radiology CXR Radiology Interpretation Completed By: ED Physician Summary of Radiographic Findings: Cardiomegaly with improved interstitial edema. Pending official radiology report. - EKG 1820 Cardiac Rate: NL - 74bpm EKG Rhythm: Sinus Rhythm ST Segment: Normal Ectopy: None Summary of EKG Findings: An EKG at 1820 reveals normal sinus rhythm at 74bpm with P wave inversions in aVL and T-wave inversions in v1 and v2. No significant change from 08/28/18. No STEMI. No acute changes. ED physician has reviewed and interpreted this EKG. Re-Evaluation - Re-Evaluation 1st re-eval Re-Evaluation Time: 21:34 Change: Unchanged Comment: D/w patient plan for admission and observation. In agreement Chest Pain Course/Dx - Course Course Of Treatment: 63 y/o male w hx COPD, morbid obesity, pacemaker, HTN, DM, PE on xarelto p/w CP. Chest Pain DDX: The patient is well appearing, with stable vitals. Given the patient's clinical presentation, highest on differential is anginal CP. Although less likely, differential also includes the following: --Pneumothorax: Equal breath sounds, story inconsistent since gradual onset of symptoms. CXR shows no evidence of pneumothorax. Unlikely. -- Cardiac tamponade: The history and physical are not concerning for tamponade. No Pulsus Paradoxus, no tachypnea. Unlikely. --Mediastinitis or esophageal rupture: The history is not consistent, as the patient has had no recent history of significant wretching, instrumentation, or mediastinal surgeries. Unlikely. --Aortic dissection: The patient does not describe the classical tearing chest pain radiating into the back, and the CXR does not show mediastinal widening or other signs of aortic dissection. Unlikely. --PE: On Xarelto (did miss a few doses), check CTA. Regarding flank pain - check UA, given fentanyl. Will also get renal imaging on CT as well as aortic imaging ( hx AAA). Heart score 5 - Diagnoses Provider Diagnoses: Chest pain Discharge ED - Sign-Out/Discharge Documenting (check all that apply): Sign-Out Patient Signing out patient TO: Jocelyn Smalls - pending CTA - Discharge Plan Condition: Stable Disposition: ADMITTED TO [facility] - Billing Disposition and Condition Condition: STABLE Disposition: Admitted to [facility] - Attestation Statements Document Initiated by Scribe: Yes Documenting Scribe: aCrrie Wetzel Provider For Whom Arnolibe is Documenting (Include Credential): Yomaira Darden MD. Scribe Attestation: I, Carrie Wetzel, scribed for Yomaira Darden MD. on 01/31/19 at 1013. Scribe Documentation Reviewed: Yes Provider Attestation: The documentation as recorded by the scribe, Carrie Wetzel accurately reflects the service I personally performed and the decisions made by me, Yomaira Darden MD. Status of Scribe Document: Viewed Consult Consult: 2122 - Dr. Poe recommends serial troponins. From an intervention standpoint, they are not able to do a stress test on the pt due to his size. 22:00 - Dr. Jarquin recommends CTA before admission given hx PE.
[2019-01-30 20:12] LABS: ABS Eosinophils 0.1 10^3/ul (0-0.6); ABS Lymphocytes 1.3 10^3/ul (1.0-4.8); ABS Monocytes 0.8 10^3/ul (0-0.8); ABS Neutrophils 4.5 10^3/ul (1.5-7.7); Eosinophil % 2.1 %; Hematocrit 44 % (42-52); Hemoglobin 14.3 g/dL (14.0-18.0); Lymphocyte % 19.2 %; Mean Corpuscular HGB Conc 32 g/dL (31-36); Mean Corpuscular Hemoglobin 29 pg (27-31); Mean Corpuscular Volume 89 fL (80-94); Mean Platelet Volume 10.5 fL (7.4-10.4); Nucleated Red Blood Cells % 0.2; Platelet Count 142 10^3/uL (150-450); Red Blood Count 4.97 10^6 /uL (4.18-5.48); Red Cell Distribution Width 15 % (10-15); White Blood Count 6.8 10^3/uL (3.5-10.8)
[2019-01-30 20:19] LABS: INR 1.09 (0.82-1.09)
[2019-01-30 20:32] LABS: Albumin 3.9 g/dL (3.2-5.2); Albumin/Globulin Ratio 1.1 (1-3); BUN/Creatinine Ratio 23.5 (8-20); Calcium 9.8 mg/dL (8.6-10.3); EGFR African American 93.5 (>60); EGFR Non-African American 77.2 (>60); Globulin 3.6 g/dL (2-4); Total Bilirubin 0.9 mg/dL (0.2-1.0); Total Protein 7.5 g/dL (6.4-8.9)
[2019-01-30] MEDS ORDERED: Aspirin TAB* 325 MG PO ONE (21:36)
[2019-01-30] MEDS ORDERED: fentaNYL* 50 MCG/ML 2 ML VIAL (100 MCG VIAL) IV SLOW PU ONE (21:36)
--- NOTE | 2019-01-30 22:15 | ED ---
Progress - Progress Note Progress Note: This pt is a signout from Dr. Darden to Dr. Smalls at 2200 01/30/19 shift change pending CTA Chest/Abd/Pel results. CTA Chest/Abd/Pel IMPRESSION: 1. No aortic dissection. 2. No other acute CT pathology. Re-Evaluation - Re-Evaluation 1st re-eval Re-Evaluation Time: 21:34 Change: Unchanged Comment: Pt is ok with admission. Course/Dx - Course Course Of Treatment: This pt is a signout from Dr. Darden to Dr. Smalls at 2200 01/30/19 shift change pending CTA Chest/Abd/Pel results. CTA Chest/Abd/ Pel IMPRESSION: 1. No aortic dissection. 2. No other acute CT pathology. - Diagnoses Provider Diagnoses: Chest pain - Provider Notifications Discussed Care Of Patient With: Dr. Jarquin Time Discussed With Above Provider: 01:11 Instructed by Provider To: Other - Dr. Jarquin agrees to admit pt. Discharge ED - Sign-Out/Discharge Documenting (check all that apply): Patient Departure - admit, Receiving Sign- Out Receiving patient FROM: Yomaira Darden - Discharge Plan Condition: Stable Disposition: ADMITTED TO [facility] Referrals: Javier Gilliland MD [Primary Care Provider] - - Attestation Statements Document Initiated by Scribe: Yes Documenting Scribe: Jarret Mcmanus Provider For Whom You is Documenting (Include Credential): Dr. Jocelyn Smalls MD Scribe Attestation: Jarret Murphy, scribed for Dr. Jocelyn Smalls MD on 01/31/19 at 0212. Status of Scribe Document: Ready
[2019-01-30] MEDS ORDERED: Iodixanol* (CONTRAST) 320 MG/ML 100 ML SDV IV ONE (22:32)
[2019-01-31] MEDS ORDERED: Nitroglycerin TAB 0.4 MG* 0.4 MG TAB SL PRN (01:59)
[2019-01-31] MEDS ORDERED: Docusate CAP* 100 MG PO PRN (01:59)
[2019-01-31] MEDS ORDERED: Albuterol HFA INHALER* 8 gm MDI INH PRN (01:59)
[2019-01-31] MEDS ORDERED: SPIRIVA Respimat* (tiotropium) 2.5 mcg/inh Inhaler INH PRN (01:59)
[2019-01-31] MEDS ORDERED: Acetaminophen TAB* 325 MG PO PRN (01:59)
[2019-01-31] MEDS ORDERED: fentaNYL* 50 MCG/ML 2 ML VIAL (100 MCG VIAL) IV SLOW PU PRN (02:30)
[2019-01-31 05:08] LABS: Urine Appearance Clear; Urine Bilirubin Negative (Negative); Urine Blood Negative (Negative); Urine Color Yellow; Urine Glucose Negative (Negative); Urine Ketones Negative (Negative); Urine Nitrite Negative (Negative); Urine Protein Negative (Negative); Urine Specific Gravity 1.039 (1.010-1.030); Urine Urobilinogen Negative (Negative)
[2019-01-31 05:16] LABS: Urine Bacteria Absent (Absent); Urine Red Blood Cell Absent (Absent); Urine Squamous Epithelial Cell Present (Absent); Urine White Blood Cell 2+(11-20/hpf) (Absent)
[2019-01-31] MEDS ORDERED: Nystatin TOP POWDER* 15 GM BTL TOPICAL PRN (06:39)
--- NOTE | 2019-01-31 06:56 | HP ---
History of Present Illness - History of Present Illness Reason for Visit: chest pain History of Present Illness: 63 year old male with history of Afib, cardiomyopathy, multiple PEs on xarelto who came in with complaints of chest pain. CP started while he was laying on his couch. He describes it as " deep bruise". pain radiates to his left shoulder. He has had multiple hospitalizations for this in the past with trops always being flat. Initial trops today were flat. Cardiology contacted in the ER and recommended observation and possible Cath as patient is too obese to have a stress test done. - Past Family History Family History: CAD, Hyperlipidemia - Past Social History Alcohol: None Drugs: None Lives: Alone Review of Systems - Measurements Intake and Output: Intake and Output Last 24 Hours 01/28/19 01/29/19 01/30/19 01/31/19 06:59 06:59 06:59 06:59 Intake Total 0 Output Total 800 Balance -800 Weight 475 lb 6.4 oz Intake: Oral 0 Output: Urine 800 - Review of Systems Constitutional Symptoms: Negative: Weight Gain, Weight Loss, Weakness, Fatigue, Fever, Night Sweats, Unexplained Falls, Other Dermatology: Negative: Normal, Rash, Skin Lesions, Cancer, Skin Lumps, Other HEENT: Negative: Normal, Change in Hearing, Vertigo, Dental Problems, Tinnitus, Sinus Problem, Other Eyes: Negative: Normal, Change in Vision, Double Vision, Eye Pain, Glaucoma, Cataract, Contacts or Glasses, Other Thyroid: Negative: Normal, Goiter, Thyroid Nodule, Cold Intolerance, Heat Intolerance , Sweatiness, Tremor, Frequent Defecation, Constipation, Palpitations, Primary Hypothyroidism, Primary Hyperthyroidism, Weight Loss, Weight Gain, Change in Skin/Hair, Change in Menstruation, Radiation Exposure, Other Pulmonary: Negative: Normal, Cough, Sputum, Hemoptysis, Wheezing, Respiratory Distress, Shortness of Breath, COPD, Asthma, Exercise Intolerance, Home Oxygen, Other Cardiology: Positive: Chest Pain Gastroenterology: Negative: Normal, Abdominal Pain, Nausea, Vomiting, Anorexia, Indigestion, Difficulty Swallowing, Heartburn, Constipation, Diarrhea, Blood in Stools, Change in Bowel Habits, Haematemesis, Melena, Other Genital - Urinary: Negative: Normal, Dysuria, Hematuria, Polyuria, Nocturia, Other Musculoskeletal: Negative: Joint Pain, Joint Stiffness, Arthritis, Osteoporosis, Low Back Pain , Sciatica, Joint Deformities, Kyphoscoliosis, Other Endocrinology: Negative: Normal, Thyroid Problems, Adrenal Problems, Gonadal Problems, Family Hx Endocrine Disorders, Obesity, Diabetes Mellitus, Hyperglycemia, Hx Hypoglycemia, Diabetic Foot Ulcers, Calluses, Hirsutism, Menstrual Abnormalities , Polydipsia, Polyuria, Gonadal Problems, Gynecomastia, Pituitary disease, Other Hematologic/Lymphatic: Negative: Anemia, Easy Bruising, Hx Leukemia, Hx Lymphoma, Use of Anticoagulant, Use of Antiplatelet Drugs, Other Neurology: Negative: Normal, Headache, Migraines, Change in Vision, Diplopia, Dizziness , Change in Balancing, Change in Coordination, Change in Memory, Change in Speech, Change in Sphincter Function, Change in Walking, Numbness\\Paresthesiae, Unexplained Weakness, Hx of Stroke\\TIA, Hx of Seizures, Other Psychiatry: Negative: Normal, Depression, Anxiety, Depressed Mood, Anhedonia, Sexual Dysfunction, Weight Change, Guilt Feelings, Tearfulness, Unusual Fatigue, Unusual Anxiety, Suicidal Ideation, Hypomania, Eating Disorders, Other Objective Active Medications: Acetaminophen (Tylenol Tab*) 650 mg PO Q6H PRN PRN Reason: FEVER/PAIN Albuterol (Ventolin Hfa Inhaler*) 2 puff INH Q4H PRN PRN Reason: SOB/WHEEZING Aspirin (Aspirin Ec Tab*) 81 mg PO DAILY [place] Docusate Sodium (Colace Cap*) 200 mg PO DAILY PRN PRN Reason: CONSTIPATION Fentanyl Citrate (Fentanyl*) 25 mcg IV SLOW PU Q6H PRN PRN Reason: PAIN - SEVERE Last Admin: 01/31/19 02:38 Dose: 25 mcg Metoprolol Succinate (Toprol Xl Tab*) 12.5 mg PO BID [facility] Nitroglycerin (Nitroglycerin Tab 0.4 Mg*) 0.4 mg SL Q5M PRN PRN Reason: chest pain Last Admin: 01/31/19 06:45 Dose: 0.4 mg Nystatin (Nystatin Top Powder*) 1 applic TOPICAL BID PRN PRN Reason: RASH Rivaroxaban (Xarelto(*)) 20 mg PO DAILY WITH MEAL [facility] Spironolactone (Aldactone Tab*) 25 mg PO DAILY [facility] Tiotropium Campbell (Spiriva Respimat 2.5 Mcg) 2 puff INH DAILY PRN PRN Reason: SHORTNESS OF BREATH Vital Signs - 8 hr 01/30/19 01/30/19 01/31/19 23:00 23:57 00:00 Temperature Pulse Rate 66 70 65 Respiratory 17 24 Rate Blood Pressure 114/61 (mmHg) O2 Sat by Pulse 97 95 95 Oximetry 01/31/19 01/31/19 01/31/19 00:04 00:27 00:57 Temperature Pulse Rate 66 67 66 Respiratory 19 15 Rate Blood Pressure 121/64 135/70 (mmHg) O2 Sat by Pulse 94 90 94 Oximetry 01/31/19 01/31/19 01/31/19 01:00 01:27 01:57 Temperature Pulse Rate 63 65 67 Respiratory 20 Rate Blood Pressure 120/66 122/66 (mmHg) O2 Sat by Pulse 97 95 95 Oximetry 01/31/19 01/31/19 01/31/19 02:00 02:27 02:38 Temperature Pulse Rate 65 67 Respiratory 22 Rate Blood Pressure 140/67 (mmHg) O2 Sat by Pulse 95 91 Oximetry 01/31/19 01/31/19 01/31/19 03:00 03:02 03:17 Temperature 98.9 F 96.8 F Pulse Rate 63 63 63 Respiratory 16 20 Rate Blood Pressure 140/67 139/67 (mmHg) O2 Sat by Pulse 94 94 96 Oximetry 01/31/19 03:23 Temperature Pulse Rate Respiratory 20 Rate Blood Pressure (mmHg) O2 Sat by Pulse Oximetry Oxygen Devices in Use Now: Nasal Cannula Appearance: morbidly obese, NID Eyes: No Scleral Icterus Ears/Nose/Mouth/Throat: Clear Oropharnyx, Mucous Membranes Moist Neck: NL Appearance and Movements; NL JVP, Trachea Midline Respiratory: Symmetrical Chest Expansion and Respiratory Effort, - - difficult to auscultate due to body habitus Cardiovascular: NL Sounds; No Murmurs; No JVD Extremities: - - 2+ edema in lower EXTs Neurological: Alert and Oriented x 3 Result Diagrams: 01/30/19 20:06 01/30/19 20:07 Assess/Plan/Problems-Billing Assessment: - Patient Problems (1) Chest pain Current Visit: No Status: Acute Code(s): R07.9 - CHEST PAIN, UNSPECIFIED SNOMED Code(s): 14187594 Comment: Intermittent chest pain described as "a deep bruise or sharp stabbing". Has known hx of noncardiac CP - Troponins trended all negative -Cardiology consulted in the ED (2) Cardiomyopathy Current Visit: No Status: Chronic Code(s): I42.9 - CARDIOMYOPATHY, UNSPECIFIED SNOMED Code(s): 11760491 Comment: s/p pacer EF unknown (3) Chronic respiratory failure Current Visit: No Status: Chronic Code(s): J96.10 - CHRONIC RESPIRATORY FAILURE, UNSP W HYPOXIA OR HYPERCAPNIA SNOMED Code(s): 85959998 Comment: - Due to Obesity hypoventilation and COPD - Chronic hypoxic and hypercarbic . on prn O2 at home - Continue PRN inhalers. Wears Bipap 01/11 (4) History of pulmonary embolism Current Visit: No Status: Chronic Code(s): Z86.711 - PERSONAL HISTORY OF PULMONARY EMBOLISM SNOMED Code(s): 778258208 Comment: - Indefinite Xarelto (5) DVT prophylaxis Current Visit: No Status: Acute Code(s): VPN9731 - SNOMED Code(s): 892336905 Comment: - Xarelto (6) Full code status Current Visit: No Status: Acute Code(s): Z78.9 - OTHER SPECIFIED HEALTH STATUS SNOMED Code(s): 597935486 Comment: (7) Chronic pain Current Visit: No Status: Acute Code(s): G89.29 - OTHER CHRONIC PAIN SNOMED Code(s): 71320446 Comment: fentanyl prn for pain (8) Atrial fibrillation Current Visit: No Status: Chronic Code(s): I48.91 - UNSPECIFIED ATRIAL FIBRILLATION SNOMED Code(s): 90456271 Comment: - In Sinus rhythm - Continue Xarelto and BB (9) Morbid obesity Current Visit: No Status: Acute Code(s): E66.01 - MORBID (SEVERE) OBESITY DUE TO EXCESS CALORIES SNOMED Code(s): 915057102 Comment: (10) Obstructive sleep apnea Current Visit: No Status: Chronic Code(s): G47.33 - OBSTRUCTIVE SLEEP APNEA (ADULT) (PEDIATRIC) SNOMED Code(s): 35893278 Comment: - Complicated by CHF and obesity - Trilogy at home, BiPAP in the hospital (11) Wound of lower extremity Current Visit: No Status: Acute Code(s): S81.809A - UNSPECIFIED OPEN WOUND, UNSPECIFIED LOWER LEG, INIT ENCNTR SNOMED Code(s): 859046455 Comment: Continue local care.
[2019-01-31] MEDS ORDERED: Rivaroxaban TAB(*) 20 MG TAB PO SCH (08:30)
[2019-01-31] MEDS ORDERED: Spironolactone TAB* 25 MG PO SCH (09:00)
[2019-01-31] MEDS ORDERED: Metoprolol Succinate XL TAB* 25 MG PO SCH (09:00)
[2019-01-31] MEDS ORDERED: Aspirin EC TAB* 81 MG TAB.EC PO SCH (09:00)
[2019-01-31 12:35] VITALS: BP 127/66
--- NOTE | 2019-01-31 20:07 | DS ---
DISCHARGE SUMMARY: DATE OF ADMISSION: 01/31/19 DATE OF DISCHARGE: 01/31/19 FINAL DISCHARGE DIAGNOSIS: Atypical chest pain. SECONDARY DIAGNOSES: 1. History of chronic atrial fibrillation. 2. Cardiomyopathy. 3. History of multiple pulmonary embolisms, on chronic anticoagulation. 4. Coronary artery disease. 5. Hyperlipidemia. 6. History of left-sided nephrolithiasis. 7. History of known cholelithiasis. 8. Bilateral lower extremity edema with chronic venous stasis ulcer. 9. Diabetes mellitus. 10. Chronic obstructive pulmonary disease and obstructive sleep apnea secondary to obesity hypoventilation syndrome, on home Trelegy. 11. History of methicillin-resistant Staphylococcus aureus. 12. History of sick sinus syndrome, status post pacemaker. 13. Prior history of hospitalization for similar symptom reported to be chest pain and on further investigation determined that the patient was fabricating symptoms for him to be hospitalized as he does get lonely at home. HOSPITAL COURSE: The patient was seen by me for the initial encounter today, was admitted just earlier this morning via the emergency room for chest burning , chest pressure, headache, and flank pain. He was seen and evaluated early this morning and late in the afternoon after he had his troponin serially followed, which were negative for 5 sets of 0.00. He remained on tele without any acute event. During his intake in the emergency room, I believe Cardiology was contacted, which was by Dr. Poe, who did not recommend any stress testing due to his body habitus and he is not a candidate for cardiac cath, recommended observation and rule him out. When I saw the patient, he had an array of complaints regarding his leg pain, flank pain, headache, pressure, indigestion. He was requesting to be treated for a UTI and a kidney stone. Among many of the complaints, complaining of the headache and upset that he was kept n.p.o. overnight during the admission with the possible stress test or intervention if he was to rule in. I was able to meet with the patient, I spent a lengthy time with the patient in the room about 30 minutes obtaining the history and reviewing his multiple complaints and multisystem review of systems which was positive. I was able to reassure him regarding his diagnostic study, lab, and troponin. Regarding his urinalysis, I told him that it is very obvious that the urine was not done in a sterile manner giving his urinalysis, which shows multiple epithelial cells. I did express my hesitation to treat him with antibiotics simply based on contaminated urine. I was willing to obtain a urine sample via clean catch and straight cath, but he declined it. Therefore, after my assessment and reviewing his vitals, negative troponin, and unremarkable tele, I deemed the patient stable for discharge back to his home setting with followup with his outpatient primary and concrete polisher for further testing. Regarding to his presumed UTI, I referred him to follow back with his urologist. Therefore, at this time, I deemed the patient is stable to be released back home from a cardiac point of view. His pain, I deem it to be atypical, whether a psychosomatic or musculoskeletal, will not change the plan at this time. He does not require any stress testing. He does not require any intervention at this time and if he does have any need for any intervention, I will defer that to his outpatient concrete polisher, which probably will be required to be done at a tertiary setting. Therefore, the patient was assessed and deemed for discharge today. PHYSICAL EXAMINATION: Temperature is 97.6, pulse 72, respirations 16, saturation 92% to 94% on 2 to 3 L, blood pressure 127/66. Generally, he is awake, alert, pleasant, morbidly obese, in no apparent distress. Head and Neck : Normocephalic, atraumatic, supple. Cardiovascular: S1 and S2. Distant heart sounds. Regular rate and rhythm. Occasional PVC appreciated. Abdomen: Morbidly obese, positive bowel sounds. Unable to appreciate any organomegaly. Large pannus. Extremities: He does have pedal edema with an Flo wrap applied to his both extremities. DIAGNOSTIC STUDIES/LAB DATA: Diagnostic studies were significant for negative troponin x5 sets. Chest x-ray very limited giving his body habitus. He is hyperinflated. I do not appreciate any infiltrate or consolidation. CT chest, abdomen, and pelvis and angiogram: No evidence of PE, dilated pulmonary artery from pulmonary hypertension, no aortic dissection. DISCHARGE MEDICATIONS: Resumed his medication as per home. No changes were made. 1. Continue his albuterol inhaler. 2. Benadryl p.r.n. 3. Potassium 20 mEq daily. 4. Torsemide 40 daily. 5. Tylenol p.r.n. 6. Albuterol 2 puffs q.4 hours. 7. Colace 200 daily. 8. Toprol 12.5 b.i.d. 9. Nitroglycerin 0.4 sublingual. 10. Xarelto 20 daily. 11. Aldactone 25 daily. 12. Spiriva 18 mcg daily. Prior to discharge, the patient stated to claim that he did not have his home medication, which he has been waiting since Wednesday from his primary. We did call the pharmacy ourself and indeed the pharmacy stated that the medication has been called. They have been at the pharmacy and they have been only waiting for it to be picked up. Therefore, no prescription was provided on his discharge. DISCHARGE CONDITION: Stable. DISCHARGE DISPOSITION: Home. [id number]/CPS #: [id number] MTDD
== END 2019-01-31 15:27 | disposition home or self-care (01) ==
LOC: ED 18:09 → MEDTELE 01-31 01:51
PROVIDERS: ADMIT Student in an Organized Health Care Education/Training Program; ATTEND Internal Medicine
DX: I48.91 Unspecified atrial fibrillation (principal); I42.9 Cardiomyopathy, unspecified; J96.10 Chronic respiratory failure, unspecified whether with hypoxia or hypercapnia; G89.29 Other chronic pain; E66.01 Morbid (severe) obesity due to excess calories; G47.33 Obstructive sleep apnea (adult) (pediatric); I25.10 Atherosclerotic heart disease of native coronary artery without angina pectoris; J44.9 Chronic obstructive pulmonary disease, unspecified; S81.809A Unspecified open wound, unspecified lower leg, initial encounter; A49.02 Methicillin resistant Staphylococcus aureus infection, unspecified site; Z95.0 Presence of cardiac pacemaker; Z87.442 Personal history of urinary calculi; Z79.01 Long term (current) use of anticoagulants; Z79.82 Long term (current) use of aspirin; Z86.11 Personal history of tuberculosis; E78.00 Pure hypercholesterolemia, unspecified; Z86.718 Personal history of other venous thrombosis and embolism; R07.9 Chest pain, unspecified; R94.31 Abnormal electrocardiogram [ECG] [EKG]; Z79.899 Other long term (current) drug therapy
CPT/HCPCS: 36415; 71045; 71275; 74174; 80053; 81003; 81015; 83880; 84484; 85025; 85610; 87077; 87086; 87186; 93005; 96374; 96376; 99285; A9270-GY; G0378; J3010; J3535; Q9967

== ENCOUNTER 2019-11-07 13:09 | Inpatient (IN) ==
[2019-11-07] MEDS ORDERED: Morphine 4 MG/ML VIAL (1 ml) IV ONE ×2 (13:16→15:54)
[2019-11-07 14:20] LABS: ABS Eosinophils 0.2 10^3/ul (0-0.6); ABS Monocytes 0.5 10^3/ul (0-0.8); Eosinophil % 3.7 %; Hematocrit 42 % (42-52); Hemoglobin 13.7 g/dL (14.0-18.0); Lymphocyte % 17.6 %; Mean Corpuscular HGB Conc 32 g/dL (31-36); Mean Corpuscular Hemoglobin 27 pg (27-31); Mean Corpuscular Volume 85 fL (80-94); Mean Platelet Volume 9.2 fL (7.4-10.4); Nucleated Red Blood Cells % 0.1; Platelet Count 194 10^3/uL (150-450); Red Cell Distribution Width 19 % (10-15); White Blood Count 5.8 10^3/uL (3.5-10.8)
[2019-11-07 14:26] LABS: INR 1.47 (0.82-1.09)
[2019-11-07 14:57] LABS: Albumin 3.7 g/dL (3.2-5.2); BUN/Creatinine Ratio 30.8 (8-20); C Reactive Protein 31.21 mg/L (<8.01); Calcium 9.9 mg/dL (8.6-10.3); EGFR African American 101.5 (>60); EGFR Non-African American 83.9 (>60); Globulin 3.6 g/dL (2-4); Potassium 4.3 mmol/L (3.5-5.0); Total Bilirubin 1.5 mg/dL (0.2-1.0); Total Protein 7.3 g/dL (6.4-8.9)
[2019-11-07] MEDS ORDERED: HYDROcodone/ACETAMIN 5/325 mg TAB PO PRN (16:47)
[2019-11-07] MEDS ORDERED: Albuterol HFA INHALER 8 gm MDI INH PRN (16:54)
[2019-11-07] MEDS ORDERED: ZINC OXIDE TOPICAL SCH (17:00)
[2019-11-07] MEDS ORDERED: Ondansetron 4 mg VIAL 2 MG/ML 2 ml VIAL IV PRN (17:01)
[2019-11-07] MEDS ORDERED: Vancomycin 2,000 MG in NS 0.9% 500 ml BAG 500 ML IVPB ONE (17:40)
[2019-11-07] MEDS: Senna TAB 8.6 mg TAB PO PRN (20:33)
[2019-11-07] MEDS: oxyCODONE/Acetamin 5/325 mg TAB PO PRN (20:33)
[2019-11-07] MEDS: cefTRIAXone 1 gm/50 mL NS BAG 1 GM/50 ML BAG IVPB SCH (23:56)
[2019-11-08] MEDS ORDERED: Vancomycin 1500 MG IV - Q8H IVPB SCH (02:30)
[2019-11-08 06:03] LABS: ABS Eosinophils 0.3 10^3/ul (0-0.6); ABS Lymphocytes 1.4 10^3/ul (1.0-4.8); ABS Monocytes 0.6 10^3/ul (0-0.8); ABS Neutrophils 4.1 10^3/ul (1.5-7.7); Eosinophil % 4.7 %; Hematocrit 40 % (42-52); Hemoglobin 12.8 g/dL (14.0-18.0); Lymphocyte % 21.2 %; Mean Corpuscular HGB Conc 32 g/dL (31-36); Mean Corpuscular Hemoglobin 27 pg (27-31); Mean Corpuscular Volume 85 fL (80-94); Mean Platelet Volume 9.4 fL (7.4-10.4); Nucleated Red Blood Cells % 0.1; Platelet Count 190 10^3/uL (150-450); Red Cell Distribution Width 18 % (10-15); White Blood Count 6.4 10^3/uL (3.5-10.8)
[2019-11-08 06:20] LABS: Albumin 3.5 g/dL (3.2-5.2); Albumin/Globulin Ratio 0.9 (1-3); BUN/Creatinine Ratio 22.5 (8-20); CRP High Sensitivity 27.76 mg/L (<2.00); Calcium 9.5 mg/dL (8.6-10.3); EGFR Non-African American 73.5 (>60); Globulin 3.8 g/dL (2-4); Potassium 4.1 mmol/L (3.5-5.0); Total Bilirubin 1.4 mg/dL (0.2-1.0); Total Protein 7.3 g/dL (6.4-8.9)
[2019-11-08] MEDS: Aspirin EC 81 mg TAB.EC (enteric coated) PO SCH (08:11)
[2019-11-08] MEDS ORDERED: fentaNYL 100 mcg/2 ml 50 MCG/ML VIAL ONE ×2 (12:33→15:52)
[2019-11-08 17:16] LABS: Body Fluid Source OTH
[2019-11-08] MEDS: Senna TAB 8.6 mg TAB PO PRN (19:45)
[2019-11-08] MEDS: oxyCODONE/Acetamin 5/325 mg TAB PO PRN ×2 (19:46)
[2019-11-08 19:52] LABS: Body Fluid NRBC 4; Body Fluid Other Cells 4
[2019-11-08] MEDS: cefTRIAXone 1 gm/50 mL NS BAG 1 GM/50 ML BAG IVPB SCH (21:19)
[2019-11-08] MEDS: Morphine 2 MG/ML SYRINGE IV PRN (22:38)
[2019-11-09 04:31] LABS: ABS Basophils 0.1 10^3/ul (0-0.2); ABS Eosinophils 0.3 10^3/ul (0-0.6); ABS Lymphocytes 1.2 10^3/ul (1.0-4.8); ABS Monocytes 0.6 10^3/ul (0-0.8); ABS Neutrophils 3.7 10^3/ul (1.5-7.7); Eosinophil % 4.6 %; Hematocrit 41 % (42-52); Hemoglobin 13.4 g/dL (14.0-18.0); Lymphocyte % 20.3 %; Mean Corpuscular HGB Conc 32 g/dL (31-36); Mean Corpuscular Hemoglobin 28 pg (27-31); Mean Corpuscular Volume 86 fL (80-94); Mean Platelet Volume 8.9 fL (7.4-10.4); Nucleated Red Blood Cells % 0.2; Platelet Count 180 10^3/uL (150-450); Red Blood Count 4.81 10^6 /uL (4.18-5.48); Red Cell Distribution Width 18 % (10-15); White Blood Count 5.7 10^3/uL (3.5-10.8)
[2019-11-09 04:36] LABS: Calcium 9.3 mg/dL (8.6-10.3); Potassium 4.2 mmol/L (3.5-5.0)
[2019-11-09 04:41] LABS: BUN/Creatinine Ratio 22.8 (8-20); EGFR African American 119.5 (>60); EGFR Non-African American 98.7 (>60)
[2019-11-09] MEDS: Morphine 2 MG/ML SYRINGE IV PRN ×4 (06:13→20:36)
[2019-11-09] MEDS: Aspirin EC 81 mg TAB.EC (enteric coated) PO SCH (07:10)
[2019-11-09] MEDS ORDERED: Vancomycin Trough Check NOTE FOLLOW UP ONE (10:00)
[2019-11-09] MEDS ORDERED: Magnesium CITRATE LIQ 300 ML BTL PO ONE (10:22)
[2019-11-09] MEDS: Enoxaparin 40 MG/0.4 ML SYR SUBCUT SCH (11:46)
[2019-11-09] MEDS: oxyCODONE/Acetamin 5/325 mg TAB PO PRN (20:37)
[2019-11-09] MEDS: cefTRIAXone 1 gm/50 mL NS BAG 1 GM/50 ML BAG IVPB SCH (23:16)
[2019-11-10] MEDS: oxyCODONE/Acetamin 5/325 mg TAB PO PRN ×3 (01:31→19:49)
[2019-11-10] MEDS: Ciprofloxacin 0.3% OPTH.SOL BTL BOTH EYES SCH ×6 (01:31→22:04)
[2019-11-10] MEDS: Morphine 2 MG/ML SYRINGE IV PRN ×5 (01:32→19:49)
[2019-11-10 05:21] LABS: ABS Eosinophils 0.2 10^3/ul (0-0.6); ABS Lymphocytes 1.1 10^3/ul (1.0-4.8); ABS Monocytes 0.5 10^3/ul (0-0.8); Eosinophil % 4.1 %; Hematocrit 41 % (42-52); Hemoglobin 13.4 g/dL (14.0-18.0); Lymphocyte % 22.7 %; Mean Corpuscular HGB Conc 33 g/dL (31-36); Mean Corpuscular Hemoglobin 28 pg (27-31); Mean Corpuscular Volume 85 fL (80-94); Mean Platelet Volume 9.1 fL (7.4-10.4); Platelet Count 169 10^3/uL (150-450); Red Blood Count 4.83 10^6 /uL (4.18-5.48); Red Cell Distribution Width 18 % (10-15); White Blood Count 4.9 10^3/uL (3.5-10.8)
[2019-11-10 05:39] LABS: BUN/Creatinine Ratio 21.4 (8-20); EGFR African American 111.3 (>60); Potassium 4.5 mmol/L (3.5-5.0)
[2019-11-10] MEDS: Aspirin EC 81 mg TAB.EC (enteric coated) PO SCH (09:30)
[2019-11-10] MEDS: Enoxaparin 40 MG/0.4 ML SYR SUBCUT SCH (09:31)
[2019-11-10] MEDS: cefTRIAXone 1 gm/50 mL NS BAG 1 GM/50 ML BAG IVPB SCH (23:04)
[2019-11-11] MEDS: Ciprofloxacin 0.3% OPTH.SOL BTL BOTH EYES SCH ×6 (03:04→22:02)
[2019-11-11] MEDS: oxyCODONE/Acetamin 5/325 mg TAB PO PRN ×4 (03:04→20:28)
[2019-11-11] MEDS: Morphine 2 MG/ML SYRINGE IV PRN ×4 (03:30→20:28)
[2019-11-11 04:54] LABS: ABS Basophils 0.1 10^3/ul (0-0.2); ABS Eosinophils 0.2 10^3/ul (0-0.6); ABS Lymphocytes 1.1 10^3/ul (1.0-4.8); ABS Monocytes 0.5 10^3/ul (0-0.8); ABS Neutrophils 3.6 10^3/ul (1.5-7.7); Eosinophil % 4.3 %; Hematocrit 41 % (42-52); Hemoglobin 13.5 g/dL (14.0-18.0); Lymphocyte % 19.8 %; Mean Corpuscular HGB Conc 33 g/dL (31-36); Mean Corpuscular Hemoglobin 28 pg (27-31); Mean Corpuscular Volume 85 fL (80-94); Mean Platelet Volume 8.9 fL (7.4-10.4); Platelet Count 168 10^3/uL (150-450); Red Blood Count 4.83 10^6 /uL (4.18-5.48); Red Cell Distribution Width 18 % (10-15); White Blood Count 5.5 10^3/uL (3.5-10.8)
[2019-11-11 05:11] LABS: Calcium 9.3 mg/dL (8.6-10.3); Potassium 4.3 mmol/L (3.5-5.0)
[2019-11-11 05:17] LABS: BUN/Creatinine Ratio 26.7 (8-20); EGFR African American 126.9 (>60); EGFR Non-African American 104.8 (>60)
[2019-11-11] MEDS: Aspirin EC 81 mg TAB.EC (enteric coated) PO SCH (09:14)
[2019-11-11] MEDS: Enoxaparin 100 MG/ML SYR SUBCUT SCH ×2 (11:11→23:13)
[2019-11-11] MEDS ORDERED: DEXTRAN BOTH EYES PRN (12:54)
[2019-11-11] MEDS ORDERED: [UNRECOGNIZED DRUG - OTHER] BOTH EYES PRN (12:54)
[2019-11-12] MEDS: Ciprofloxacin 0.3% OPTH.SOL BTL BOTH EYES SCH ×6 (02:10→22:33)
[2019-11-12] MEDS: Morphine 2 MG/ML SYRINGE IV PRN ×4 (04:12→19:50)
[2019-11-12] MEDS: oxyCODONE/Acetamin 5/325 mg TAB PO PRN ×4 (04:12→19:49)
[2019-11-12 05:05] LABS: ABS Eosinophils 0.3 10^3/ul (0-0.6); ABS Lymphocytes 1.2 10^3/ul (1.0-4.8); ABS Monocytes 0.5 10^3/ul (0-0.8); ABS Neutrophils 2.8 10^3/ul (1.5-7.7); Eosinophil % 5.3 %; Hematocrit 44 % (42-52); Lymphocyte % 25.4 %; Mean Corpuscular HGB Conc 32 g/dL (31-36); Mean Corpuscular Hemoglobin 27 pg (27-31); Mean Corpuscular Volume 86 fL (80-94); Mean Platelet Volume 9.5 fL (7.4-10.4); Platelet Count 170 10^3/uL (150-450); Red Blood Count 5.11 10^6 /uL (4.18-5.48); Red Cell Distribution Width 18 % (10-15); White Blood Count 4.8 10^3/uL (3.5-10.8)
[2019-11-12 05:22] LABS: BUN/Creatinine Ratio 28.4 (8-20); Calcium 9.5 mg/dL (8.6-10.3); EGFR African American 105.5 (>60); EGFR Non-African American 87.2 (>60)
[2019-11-12] MEDS: Aspirin EC 81 mg TAB.EC (enteric coated) PO SCH (09:45)
[2019-11-12] MEDS: Enoxaparin 100 MG/ML SYR SUBCUT SCH ×2 (10:56→22:35)
[2019-11-13] MEDS: oxyCODONE/Acetamin 5/325 mg TAB PO PRN ×3 (00:31→09:57)
[2019-11-13] MEDS: Morphine 2 MG/ML SYRINGE IV PRN ×3 (00:32→09:59)
[2019-11-13] MEDS: Ciprofloxacin 0.3% OPTH.SOL BTL BOTH EYES SCH ×6 (01:52→22:08)
[2019-11-13 08:46] LABS: ABS Eosinophils 0.2 10^3/ul (0-0.6); ABS Lymphocytes 1.2 10^3/ul (1.0-4.8); ABS Monocytes 0.4 10^3/ul (0-0.8); ABS Neutrophils 2.8 10^3/ul (1.5-7.7); Eosinophil % 4.3 %; Hematocrit 43 % (42-52); Hemoglobin 14.1 g/dL (14.0-18.0); Lymphocyte % 26.1 %; Mean Corpuscular HGB Conc 33 g/dL (31-36); Mean Corpuscular Hemoglobin 28 pg (27-31); Mean Corpuscular Volume 85 fL (80-94); Mean Platelet Volume 9.3 fL (7.4-10.4); Nucleated Red Blood Cells % 0.1; Platelet Count 156 10^3/uL (150-450); Red Blood Count 5.03 10^6 /uL (4.18-5.48); Red Cell Distribution Width 18 % (10-15); White Blood Count 4.7 10^3/uL (3.5-10.8)
[2019-11-13 09:00] LABS: BUN/Creatinine Ratio 24.7 (8-20); Calcium 9.7 mg/dL (8.6-10.3); EGFR African American 116.1 (>60); EGFR Non-African American 95.9 (>60); Potassium 4.1 mmol/L (3.5-5.0)
[2019-11-13] MEDS: Aspirin EC 81 mg TAB.EC (enteric coated) PO SCH (09:55)
[2019-11-13] MEDS: Enoxaparin 100 MG/ML SYR SUBCUT SCH (12:04)
[2019-11-13] MEDS ORDERED: oxyCODONE/Acetamin 5/325 mg TAB PO PRN (13:49)
[2019-11-13] MEDS: HYDROcodone/ACETAMIN 5/325 mg TAB PO PRN ×2 (14:10→22:16)
[2019-11-14] MEDS: Ciprofloxacin 0.3% OPTH.SOL BTL BOTH EYES SCH ×5 (02:20→16:27)
[2019-11-14 06:21] LABS: ABS Lymphocytes 0.8 10^3/ul (1.0-4.8); ABS Monocytes 0.5 10^3/ul (0-0.8); ABS Neutrophils 4.8 10^3/ul (1.5-7.7); Eosinophil % 0.5 %; Hematocrit 44 % (42-52); Lymphocyte % 12.9 %; Mean Corpuscular HGB Conc 32 g/dL (31-36); Mean Corpuscular Hemoglobin 27 pg (27-31); Mean Corpuscular Volume 86 fL (80-94); Mean Platelet Volume 9.1 fL (7.4-10.4); Platelet Count 167 10^3/uL (150-450); Red Blood Count 5.12 10^6 /uL (4.18-5.48); Red Cell Distribution Width 18 % (10-15); White Blood Count 6.3 10^3/uL (3.5-10.8)
[2019-11-14 06:36] LABS: BUN/Creatinine Ratio 23.8 (8-20); Calcium 9.7 mg/dL (8.6-10.3); EGFR African American 111.3 (>60); Potassium 4.6 mmol/L (3.5-5.0)
[2019-11-14] MEDS: Aspirin EC 81 mg TAB.EC (enteric coated) PO SCH (08:35)
[2019-11-14] MEDS: HYDROcodone/ACETAMIN 5/325 mg TAB PO PRN ×2 (08:36→14:04)
[2019-11-14 15:50] VITALS: BP 112/75
== END 2019-11-14 17:30 | disposition home or self-care (01) | DRG 384 ==
LOC: ED 13:09 → SSU 15:27
PROVIDERS: ADMIT Internal Medicine; ATTEND Internal Medicine